=== PATIENT | female | born 1950 | race Caucasian/White ===

== ENCOUNTER 2019-12-08 12:20 | Outpatient (REF) | payer MEDICARE, MEDICAID, SELFPAY ==
[2019-12-08 14:23] LABS: Anion Gap 13 (12-20); Blood Urea Nitrogen 14 mg/dL (9-16); Calcium 8.6 mg/dL (8.4-10.2); Carbon Dioxide 30 mmol/L (22-29); Chloride 98 mmol/L (96-108); Estimated Glomerular Filt Rate > 60; Glucose Fasting 100 mg/dL (60-99); Potassium 3.9 mmol/l (3.3-5.1); Sodium 137 mmol/L (135-145)
[2019-12-08 14:47] LABS: TSH reflex Free T4 1.32 mIU/mL (0.32-4.0)
== END 2019-12-08 12:21 | disposition home or self-care (01) ==
LOC: HO.HMGCLDS 12:20
PROVIDERS: PCP Nurse Practitioner Family; Visit Provider Internal Medicine Gastroenterology
DX: R10.33 Periumbilical pain (principal)
CPT/HCPCS: 80048; 84443

== ENCOUNTER 2019-12-13 06:24 | Outpatient (REF) | payer MEDICARE, MEDICAID, SELFPAY ==
--- NOTE | 2019-12-13 06:27 | CT_ITS ---
EXAMINATION: CT ABDOMEN AND PELVIS WITH CONTRAST CLINICAL INFORMATION: Very minimal pain. COMPARISON: Abdominal ultrasound dated 03/04/2019; CT abdomen and pelvis dated 06/17/2018. TECHNIQUE: Multidetector volumetric images were obtained from the superior aspect of the liver through the pubic symphysis following administration 85 mL of Omnipaque 350 intravenous contrast. Sagittal and coronal reformatted images were obtained on the technologist's workstation. Oral contrast: No This CT examination was performed using dose optimization techniques as appropriate, variously including the following: *Automated exposure control *Adjustment of mA and/or kV according to patient size (this includes techniques or standardized protocols for targeted exams where dose is matched to indication/reason for exam; i.e. extremities or head) *Use of iterative reconstruction technique DLP: 397 mGy-cm FINDINGS: LUNG BASES: At the central left base (5:33 and 6:53), there is scar/subsegmental atelectasis. A few noncalcified micronodules may be present at this location. LIVER, GALLBLADDER, AND BILIARY TREE: The liver is normal in size, shape, and mildly increased in attenuation. No focal hepatic lesion or biliary ductal dilatation is present. The gallbladder is surgically absent. PANCREAS: Again, there is fatty infiltration of the pancreatic head. No new mass, ductal dilatation or peripancreatic fat stranding or fluid are seen. SPLEEN: Unremarkable. ADRENAL GLANDS: Unremarkable. KIDNEYS AND URETERS: The kidneys are normal in size, shape, and attenuation. No hydronephrosis, hydroureter, or calculi seen. No perinephric stranding. BLADDER: Unremarkable. GASTROINTESTINAL TRACT: There is mild diverticulosis, without acute diverticulitis. No bowel obstruction, free intraperitoneal air or abscess is seen. The vermiform appendix is not identified. ABDOMINAL WALL: There has been a prior periumbilical herniorrhaphy. There are small fat-containing bilateral inguinal hernias. LYMPH NODES: Normal. VASCULAR: There is moderate aortoiliac atherosclerotic calcification. No abdominal aortic aneurysm is seen. PELVIC VISCERA: Surgically absent. No pelvic mass, free fluid or lymphadenopathy is seen. OSSEOUS STRUCTURES: There is multi-level thoracolumbar degenerative disc disease and spondylosis, particularly pronounced at T12-L1 and L5-S1. No acute or aggressive osseous abnormality is seen. CT/CT abdomen pelvis w con IMPRESSION: 1. There is mild diverticulosis, without acute diverticulitis. No bowel obstruction, free intraperitoneal air or abscess is seen. The appendix is again not identified. 2. No abdominopelvic mass, free fluid lymphadenopathy is seen. 3. No urinary calculus or obstructive uropathy is seen. 4. There is mild hepatic steatosis. 5. There is mild scar/subsegmental atelectasis at the left base. A few noncalcified micronodules may be present at this location. 6. There is multi-level thoracolumbar degenerative change.
[2019-12-13] MEDS: Barium Sulfate Oral (Berry) 450 ML ORAL.SUSP 900 ML PO (09:02)
[2019-12-13] MEDS: iohexoL 350 MG/ML 100 ML INFUS..BTL IV (09:02)
== END 2019-12-13 06:25 | disposition home or self-care (01) ==
LOC: HO.CT 06:24
PROVIDERS: Visit Provider Internal Medicine Gastroenterology
DX: R10.33 Periumbilical pain (principal)
CPT/HCPCS: 74177

== ENCOUNTER → 2019-12-27 13:20 | Outpatient (BNVA) | payer MEDICARE, MEDICAID, SELFPAY | PROVIDERS: PCP Nurse Practitioner Family; Visit Provider Surgery | DX: K40.90 Unilateral inguinal hernia, without obstruction or gangrene, not specified as recurrent (principal) | CPT/HCPCS: 99212 ==

== ENCOUNTER 2020-01-14 07:44 | Day surgery (SDC) | payer MEDICARE, MEDICAID, SELFPAY ==
[2020-01-10 15:00] VITALS: BMI 31.1
--- NOTE | 2020-01-13 09:27 | HO.ANESPROP2 ---
Documented by User: Kiana Brito 01/13/20 09:38 HPI - Anesthesia Eval Consult details Narrative: 69yo F for Hernia Repair Inguinal right, with mesh s/p lap diaphragmatic hernia with GA-ETT 7.5 Cardiology cleared 09/2019 for GA @ intermed [facility] Past Medical History Medical History (Updated 01/14/20 @ 08:28 by Karime Ceballos) Anxiety Asthma COPD (chronic obstructive pulmonary disease) Depression Dizziness Edema Fusion of spine, cervical region H/O gastroesophageal reflux (GERD) History of aneurysm History of deviated nasal septum History of panic attacks HLD (hyperlipidemia) HTN (hypertension) Medial epicondylitis of left elbow Migraine Nonobstructive atherosclerosis of coronary artery PTSD (post-traumatic stress disorder) Right inguinal hernia Umbilical pain Family History Family History Father Liver cancer Psoriasis Cancer Mother Cervical cancer Ovarian cancer Heart attack Surgical History Surgical History (Updated 01/14/20 @ 08:28 by Karime Ceballos) H/O decompression of ulnar nerve History of appendectomy History of cardiac catheterization History of cholecystectomy History of esophagogastroduodenoscopy (EGD) History of eyelid surgery History of hysterectomy History of lumpectomy of both breasts History of parathyroidectomy Hx of adenoidectomy Hx of cataract surgery Hx of colonoscopy Hx of eye surgery Hx of shoulder surgery Hx of tonsillectomy S/P arthroscopic surgery of right knee S/P cubital tunnel release S/P repair of paraesophageal hernia Status post ablation of incompetent vein using laser Social History Social History Smoking Status: Former smoker Smoking Quit Date: 1979 Use of substances other than those prescribed or required for medical reasons: No Advance Directives: No Advance Directives Information Provided: No Advance Directives on File: No Meds Allergies Allergy/AdvReac Type Severity Reaction Status Date / Time Xjfdgel-Dyv-Pfe Reductase Allergy Severe JOINT PAIN Unverified 01/10/20 14:31 Inhibitor [[id number] REDUCTASE INHIBITOR] amlodipine [AMLODIPINE] Allergy Intermediate PALIPITATIO Unverified 01/10/20 14:31 NS baclofen [BACLOFEN] Allergy Intermediate LETHARGY Unverified 01/10/20 14:31 Beta-Blockers Allergy Intermediate BRADYCARDIA Unverified 01/10/20 14:31 (Beta-Adrenergic Bloc budesonide [From SYMBICORT] Allergy Intermediate HOARSENESS Unverified 01/10/20 14:31 ezetimibe [From ZETIA] Allergy Intermediate JOINT Unverified 01/10/20 14:31 PAIN, ELEVATED CPK formoterol [From SYMBICORT] Allergy Intermediate HOARSENESS Unverified 01/10/20 14:31 ibandronate sodium Allergy Intermediate CHEST PAIN Unverified 01/10/20 14:31 [From BONIVA] latex [LATEX] Allergy Intermediate RASH-SENSIT Unverified 01/10/20 14:31 IVITY lisinopril [LISINOPRIL] Allergy Intermediate COUGH, Unverified 01/10/20 14:31 really bad cough, cough meloxicam [From MOBIC] Allergy Intermediate GI UPSET Unverified 01/10/20 14:31 mometasone furoate Allergy Intermediate COUGH Unverified 01/10/20 14:31 [From DULERA] Penicillins [PENICILLINS] Allergy Intermediate RASH Unverified 01/10/20 14:31 pregabalin [From LYRICA] Allergy Intermediate RASH,BLURRED Unverified 01/10/20 14:31 VISION raloxifene [From EVISTA] Allergy Intermediate GERD Unverified 01/10/20 14:31 sertraline [From ZOLOFT] Allergy Intermediate SKIN Unverified 01/10/20 14:31 CRAWLING spironolactone Allergy Intermediate RASH, ?? Unverified 01/10/20 14:31 [SPIRONOLACTONE] psoriasis strawberry [STRAWBERRY] Allergy Intermediate ITCHING Unverified 01/10/20 14:31 tiotropium Allergy Intermediate RAW THROAT Unverified 01/10/20 14:31 [From SPIRIVA WITH HANDIHALER] adhesive [ADHESIVE] Allergy Unknown RASH Unverified 01/10/20 14:31 adhesive tape [ADHESIVE TAPE] Allergy Unknown RASH Unverified 01/10/20 14:31 Atrovent Allergy Unknown Unknown Unverified 01/10/20 14:31 dexlansoprazole Allergy Unknown UNKNOWN Unverified 01/10/20 14:31 [From DEXILANT] doxycycline [DOXYCYCLINE] Allergy Unknown SEVERE NOYOLA, Unverified 01/10/20 14:31 HEARTBURN Doxycycline Hyclate Allergy Unknown headache Unverified 01/10/20 14:31 esomeprazole [Nexium] Allergy Unknown Unknown Verified 01/10/20 14:31 fluticasone Allergy Unknown HTN Unverified 01/10/20 14:31 [From ADVAIR DISKUS] gabapentin [From NEURONTIN] Allergy Unknown THROAT Unverified 01/10/20 14:31 TIGHTNESS glucosamine Allergy Unknown Unknown Unverified 01/10/20 14:31 metoclopramide [From REGLAN] Allergy Unknown LETHARGY Unverified 01/10/20 14:31 monosodium glutamate [MSG] Allergy Unknown HEADACHE Unverified 01/10/20 14:31 naproxen [From ALEVE] Allergy Unknown FLUSH Unverified 01/10/20 14:31 niacin Allergy Unknown Unknown Verified 01/10/20 14:31 omeprazole Allergy Unknown Unknown Unverified 01/10/20 14:31 risedronate sodium Allergy Unknown UNKNOWN Unverified 01/10/20 14:31 [From ACTONEL] rosuvastatin [From CRESTOR] Allergy Unknown VOMITED, Unverified 01/10/20 14:31 DIARRHEA salmeterol Allergy Unknown HTN Unverified 01/10/20 14:31 [From ADVAIR DISKUS] scallops [SCALLOPS] Allergy Unknown NAUSEA & Unverified 01/10/20 14:31 VOMITING tramadol [TRAMADOL] Allergy Unknown THROAT Unverified 01/10/20 14:31 TIGHTNESS verapamil [VERAPAMIL] Allergy Unknown IRREGULAR Unverified 01/10/20 14:31 HEARTBEAT CHOCOLATE Allergy Intermediate ITCHING Uncoded 01/10/20 14:31 Vioxx Allergy Unknown ankle Uncoded 01/10/20 14:31 swelling Home Medications Medication Instructions Recorded Confirmed Type Bifidobacterium infantis 4 mg 4 mg PO DAILY 11/17/19 01/10/20 History capsule aspirin 81 mg tablet,delayed 81 mg PO DAILY 11/17/19 01/14/20 History release azelastine 137 mcg (0.1 %) nasal 1 spray INTRANASAL DAILY 11/17/19 01/10/20 History spray aerosol betamethasone dipropionate 0.05 % 1 applic TOPICAL DIRECTED 11/17/19 01/10/20 History topical cream cetirizine 10 mg tablet 5 mg PO DAILY PRN 11/17/19 01/10/20 History cholecalciferol (vitamin D3) 25 25 mcg PO DAILY 11/17/19 01/10/20 History mcg (1,000 unit) capsule cyclosporine 0.05 % eye drops in a 1 drp OPHTHALMIC (EYE) DIRECTED 11/17/19 01/10/20 History dropperette cyclosporine 0.05 % eye drops in a 1 drp OPHTHALMIC (EYE) Q12H 11/17/19 01/10/20 History dropperette docusate sodium 100 mg capsule 100 mg PO BID 11/17/19 01/10/20 History evolocumab 140 mg/mL subcutaneous 140 mg SUBCUT DIRECTED 11/17/19 01/10/20 History pen injector famotidine-Ca carb-mag hydrox 10 1 tab PO BID 11/17/19 01/10/20 History mg-800 mg-165 mg chewable tablet ibuprofen 600 mg tablet 600 mg PO TID tab 11/17/19 01/14/20 History levalbuterol tartrate 45 2 puff INHALATION DAILY 11/17/19 12/08/19 History mcg/actuation aerosol inhaler lorazepam 0.5 mg tablet 0.5 mg PO BEDTIME tab 11/17/19 01/14/20 History losartan 25 mg tablet 25 mg PO DAILY tab 11/17/19 01/10/20 History magnesium oxide 500 mg tablet 500 mg PO DAILY 11/17/19 01/10/20 History pantoprazole 40 mg tablet,delayed 40 mg PO BID tab 11/17/19 01/14/20 History release sucralfate 1 gram tablet PO 11/17/19 12/08/19 History Exam Exam Date and Time: January 13, 2020 0927 Height,Weight and Vital Signs: Height 5 ft Weight 72.18 kg Pertinent Lab Results Pertinent Lab Results: Laboratory Tests 10/28/19 12/08/19 06:18 12:32 WBC 6.8 Hgb 14.0 Hct 42.1 Plt Count 306 Sodium 137 Potassium 3.9 Chloride 98 Carbon Dioxide 30 H BUN 14 Creatinine 0.83 Narrative Narrative: EKG 09/15/19: NSR@60 CXR 09/15/19: Neg ECHO 2016: EF 65-70%, No RWMA, Imp relax MIBI 2015: nml perfusion Assessment and Plan Assessment Anesthesia Assessment: Chart Reviewed Documented by User: Karime Ceballos 01/14/20 08:30 [facility] Past Medical History Medical History (Updated 01/14/20 @ 08:28 by Karime Ceballos) Anxiety Asthma COPD (chronic obstructive pulmonary disease) Depression Dizziness Edema Fusion of spine, cervical region H/O gastroesophageal reflux (GERD) History of aneurysm History of deviated nasal septum History of panic attacks HLD (hyperlipidemia) HTN (hypertension) Medial epicondylitis of left elbow Migraine Nonobstructive atherosclerosis of coronary artery PTSD (post-traumatic stress disorder) Right inguinal hernia Umbilical pain Family History Family History Father Liver cancer Psoriasis Cancer Mother Cervical cancer Ovarian cancer Heart attack Family history of problems with anesthesia: No Surgical History Surgical History (Updated 01/14/20 @ 08:28 by Karime Ceballos) H/O decompression of ulnar nerve History of appendectomy History of cardiac catheterization History of cholecystectomy History of esophagogastroduodenoscopy (EGD) History of eyelid surgery History of hysterectomy History of lumpectomy of both breasts History of parathyroidectomy Hx of adenoidectomy Hx of cataract surgery Hx of colonoscopy Hx of eye surgery Hx of shoulder surgery Hx of tonsillectomy S/P arthroscopic surgery of right knee S/P cubital tunnel release S/P repair of paraesophageal hernia Status post ablation of incompetent vein using laser History of Problems with Anesthesia: No Social History Social History Smoking Status: Former smoker Smoking Quit Date: 1979 Use of substances other than those prescribed or required for medical reasons: No Advance Directives: No Advance Directives Information Provided: No Advance Directives on File: No Meds Allergies Allergy/AdvReac Type Severity Reaction Status Date / Time Uvifwrw-Fzp-Vnr Reductase Allergy Severe JOINT PAIN Unverified 01/10/20 14:31 Inhibitor [BQDOVEV-OCI-LHQ REDUCTASE INHIBITOR] amlodipine [AMLODIPINE] Allergy Intermediate PALIPITATIO Unverified 01/10/20 14:31 NS baclofen [BACLOFEN] Allergy Intermediate LETHARGY Unverified 01/10/20 14:31 Beta-Blockers Allergy Intermediate BRADYCARDIA Unverified 01/10/20 14:31 (Beta-Adrenergic Bloc budesonide [From SYMBICORT] Allergy Intermediate HOARSENESS Unverified 01/10/20 14:31 ezetimibe [From ZETIA] Allergy Intermediate JOINT Unverified 01/10/20 14:31 PAIN, ELEVATED CPK formoterol [From SYMBICORT] Allergy Intermediate HOARSENESS Unverified 01/10/20 14:31 ibandronate sodium Allergy Intermediate CHEST PAIN Unverified 01/10/20 14:31 [From BONIVA] latex [LATEX] Allergy Intermediate RASH-SENSIT Unverified 01/10/20 14:31 IVITY lisinopril [LISINOPRIL] Allergy Intermediate COUGH, Unverified 01/10/20 14:31 really bad cough, cough meloxicam [From MOBIC] Allergy Intermediate GI UPSET Unverified 01/10/20 14:31 mometasone furoate Allergy Intermediate COUGH Unverified 01/10/20 14:31 [From DULERA] Penicillins [PENICILLINS] Allergy Intermediate RASH Unverified 01/10/20 14:31 pregabalin [From LYRICA] Allergy Intermediate RASH,BLURRED Unverified 01/10/20 14:31 VISION raloxifene [From EVISTA] Allergy Intermediate GERD Unverified 01/10/20 14:31 sertraline [From ZOLOFT] Allergy Intermediate SKIN Unverified 01/10/20 14:31 CRAWLING spironolactone Allergy Intermediate RASH, ?? Unverified 01/10/20 14:31 [SPIRONOLACTONE] psoriasis strawberry [STRAWBERRY] Allergy Intermediate ITCHING Unverified 01/10/20 14:31 tiotropium Allergy Intermediate RAW THROAT Unverified 01/10/20 14:31 [From SPIRIVA WITH HANDIHALER] adhesive [ADHESIVE] Allergy Unknown RASH Unverified 01/10/20 14:31 adhesive tape [ADHESIVE TAPE] Allergy Unknown RASH Unverified 01/10/20 14:31 Atrovent Allergy Unknown Unknown Unverified 01/10/20 14:31 dexlansoprazole Allergy Unknown UNKNOWN Unverified 01/10/20 14:31 [From DEXILANT] doxycycline [DOXYCYCLINE] Allergy Unknown SEVERE NOYOLA, Unverified 01/10/20 14:31 HEARTBURN Doxycycline Hyclate Allergy Unknown headache Unverified 01/10/20 14:31 esomeprazole [Nexium] Allergy Unknown Unknown Verified 01/10/20 14:31 fluticasone Allergy Unknown HTN Unverified 01/10/20 14:31 [From ADVAIR DISKUS] gabapentin [From NEURONTIN] Allergy Unknown THROAT Unverified 01/10/20 14:31 TIGHTNESS glucosamine Allergy Unknown Unknown Unverified 01/10/20 14:31 metoclopramide [From REGLAN] Allergy Unknown LETHARGY Unverified 01/10/20 14:31 monosodium glutamate [MSG] Allergy Unknown HEADACHE Unverified 01/10/20 14:31 naproxen [From ALEVE] Allergy Unknown FLUSH Unverified 01/10/20 14:31 niacin Allergy Unknown Unknown Verified 01/10/20 14:31 omeprazole Allergy Unknown Unknown Unverified 01/10/20 14:31 risedronate sodium Allergy Unknown UNKNOWN Unverified 01/10/20 14:31 [From ACTONEL] rosuvastatin [From CRESTOR] Allergy Unknown VOMITED, Unverified 01/10/20 14:31 DIARRHEA salmeterol Allergy Unknown HTN Unverified 01/10/20 14:31 [From ADVAIR DISKUS] scallops [SCALLOPS] Allergy Unknown NAUSEA & Unverified 01/10/20 14:31 VOMITING tramadol [TRAMADOL] Allergy Unknown THROAT Unverified 01/10/20 14:31 TIGHTNESS verapamil [VERAPAMIL] Allergy Unknown IRREGULAR Unverified 01/10/20 14:31 HEARTBEAT CHOCOLATE Allergy Intermediate ITCHING Uncoded 01/10/20 14:31 Vioxx Allergy Unknown ankle Uncoded 01/10/20 14:31 swelling Home Medications Medication Instructions Recorded Confirmed Type Bifidobacterium infantis 4 mg 4 mg PO DAILY 11/17/19 01/10/20 History capsule aspirin 81 mg tablet,delayed 81 mg PO DAILY 11/17/19 01/14/20 History release azelastine 137 mcg (0.1 %) nasal 1 spray INTRANASAL DAILY 11/17/19 01/10/20 History spray aerosol betamethasone dipropionate 0.05 % 1 applic TOPICAL DIRECTED 11/17/19 01/10/20 History topical cream cetirizine 10 mg tablet 5 mg PO DAILY PRN 11/17/19 01/10/20 History cholecalciferol (vitamin D3) 25 25 mcg PO DAILY 11/17/19 01/10/20 History mcg (1,000 unit) capsule cyclosporine 0.05 % eye drops in a 1 drp OPHTHALMIC (EYE) DIRECTED 11/17/19 01/10/20 History dropperette cyclosporine 0.05 % eye drops in a 1 drp OPHTHALMIC (EYE) Q12H 11/17/19 01/10/20 History dropperette docusate sodium 100 mg capsule 100 mg PO BID 11/17/19 01/10/20 History evolocumab 140 mg/mL subcutaneous 140 mg SUBCUT DIRECTED 11/17/19 01/10/20 History pen injector famotidine-Ca carb-mag hydrox 10 1 tab PO BID 11/17/19 01/10/20 History mg-800 mg-165 mg chewable tablet ibuprofen 600 mg tablet 600 mg PO TID tab 11/17/19 01/14/20 History levalbuterol tartrate 45 2 puff INHALATION DAILY 11/17/19 12/08/19 History mcg/actuation aerosol inhaler lorazepam 0.5 mg tablet 0.5 mg PO BEDTIME tab 11/17/19 01/14/20 History losartan 25 mg tablet 25 mg PO DAILY tab 11/17/19 01/10/20 History magnesium oxide 500 mg tablet 500 mg PO DAILY 11/17/19 01/10/20 History pantoprazole 40 mg tablet,delayed 40 mg PO BID tab 11/17/19 01/14/20 History release sucralfate 1 gram tablet PO 11/17/19 12/08/19 History Exam Height,Weight and Vital Signs: Vital Signs Temp Pulse Resp BP Pulse Ox 01/14/20 08:20 98.2 F 86 20 152/73 H 100 Airway Mallampati Class: II TM Dist: >3cm Neck ROM: Full (S/p fusion with plate. Good extension.) Loose/Missing/Broken Teeth: No ([place] intact) Heart: RRR Lungs: CTAB Assessment and Plan Assessment Anesthesia Assessment: Anesthesia Plan Discussed and Chart Reviewed Final Anesthetic Review NPO: Yes ASA Class: III Final Preanesthetic Review: No Changes in Pt Med Stat, Meds/Allgs Chart Reviewed, Consent Obtained/Reviewed and Anes Risks/Benef Reviewed Patient Risk: Intermediate Procedure Risk: Low Anesthetic Plan Anesthetic Plan: GA Disposition: Standard PACU
[2020-01-14] VITALS (8 sets, daily range): BP systolic 116–152; BP diastolic 49–73; PULSE 66–86; RESP 14–20; TEMP 36.7–36.8; O2SAT 96–100
--- NOTE | 2020-01-14 08:14 | MHC.SHP ---
Pre-Procedural Eval Section B Chief Complaint: hernia without obstruction or gangrene Allergies: Allergies Allergy/AdvReac Type Severity Reaction Status Date / Time Hertmoe-Mhm-Ryz Reductase Allergy Severe JOINT PAIN Unverified 01/10/20 14:31 Inhibitor [YASLEFU-LSW-ILV REDUCTASE INHIBITOR] amlodipine [AMLODIPINE] Allergy Intermediate PALIPITATIO Unverified 01/10/20 14:31 NS baclofen [BACLOFEN] Allergy Intermediate LETHARGY Unverified 01/10/20 14:31 Beta-Blockers Allergy Intermediate BRADYCARDIA Unverified 01/10/20 14:31 (Beta-Adrenergic Bloc budesonide [From SYMBICORT] Allergy Intermediate HOARSENESS Unverified 01/10/20 14:31 ezetimibe [From ZETIA] Allergy Intermediate JOINT Unverified 01/10/20 14:31 PAIN, ELEVATED CPK formoterol [From SYMBICORT] Allergy Intermediate HOARSENESS Unverified 01/10/20 14:31 ibandronate sodium Allergy Intermediate CHEST PAIN Unverified 01/10/20 14:31 [From BONIVA] latex [LATEX] Allergy Intermediate RASH-SENSIT Unverified 01/10/20 14:31 IVITY lisinopril [LISINOPRIL] Allergy Intermediate COUGH, Unverified 01/10/20 14:31 really bad cough, cough meloxicam [From MOBIC] Allergy Intermediate GI UPSET Unverified 01/10/20 14:31 mometasone furoate Allergy Intermediate COUGH Unverified 01/10/20 14:31 [From DULERA] Penicillins [PENICILLINS] Allergy Intermediate RASH Unverified 01/10/20 14:31 pregabalin [From LYRICA] Allergy Intermediate RASH,BLURRED Unverified 01/10/20 14:31 VISION raloxifene [From EVISTA] Allergy Intermediate GERD Unverified 01/10/20 14:31 sertraline [From ZOLOFT] Allergy Intermediate SKIN Unverified 01/10/20 14:31 CRAWLING spironolactone Allergy Intermediate RASH, ?? Unverified 01/10/20 14:31 [SPIRONOLACTONE] psoriasis strawberry [STRAWBERRY] Allergy Intermediate ITCHING Unverified 01/10/20 14:31 tiotropium Allergy Intermediate RAW THROAT Unverified 01/10/20 14:31 [From SPIRIVA WITH HANDIHALER] adhesive [ADHESIVE] Allergy Unknown RASH Unverified 01/10/20 14:31 adhesive tape [ADHESIVE TAPE] Allergy Unknown RASH Unverified 01/10/20 14:31 Atrovent Allergy Unknown Unknown Unverified 01/10/20 14:31 dexlansoprazole Allergy Unknown UNKNOWN Unverified 01/10/20 14:31 [From DEXILANT] doxycycline [DOXYCYCLINE] Allergy Unknown SEVERE NOYOLA, Unverified 01/10/20 14:31 HEARTBURN Doxycycline Hyclate Allergy Unknown headache Unverified 01/10/20 14:31 esomeprazole [Nexium] Allergy Unknown Unknown Verified 01/10/20 14:31 fluticasone Allergy Unknown HTN Unverified 01/10/20 14:31 [From ADVAIR DISKUS] gabapentin [From NEURONTIN] Allergy Unknown THROAT Unverified 01/10/20 14:31 TIGHTNESS glucosamine Allergy Unknown Unknown Unverified 01/10/20 14:31 metoclopramide [From REGLAN] Allergy Unknown LETHARGY Unverified 01/10/20 14:31 monosodium glutamate [MSG] Allergy Unknown HEADACHE Unverified 01/10/20 14:31 naproxen [From ALEVE] Allergy Unknown FLUSH Unverified 01/10/20 14:31 niacin Allergy Unknown Unknown Verified 01/10/20 14:31 omeprazole Allergy Unknown Unknown Unverified 01/10/20 14:31 risedronate sodium Allergy Unknown UNKNOWN Unverified 01/10/20 14:31 [From ACTONEL] rosuvastatin [From CRESTOR] Allergy Unknown VOMITED, Unverified 01/10/20 14:31 DIARRHEA salmeterol Allergy Unknown HTN Unverified 01/10/20 14:31 [From ADVAIR DISKUS] scallops [SCALLOPS] Allergy Unknown NAUSEA & Unverified 01/10/20 14:31 VOMITING tramadol [TRAMADOL] Allergy Unknown THROAT Unverified 01/10/20 14:31 TIGHTNESS verapamil [VERAPAMIL] Allergy Unknown IRREGULAR Unverified 01/10/20 14:31 HEARTBEAT CHOCOLATE Allergy Intermediate ITCHING Uncoded 01/10/20 14:31 Vioxx Allergy Unknown ankle Uncoded 01/10/20 14:31 swelling Plan Patient has been examined and remains a candidate for the planned procedure
[2020-01-14] MEDS: Lactated Ringers 1,000 ML 100 ML IVCONT (08:24)
[2020-01-14] MEDS: ceFAZolin Sodium/Dextrose,Iso 2 GM/50 ML PIGGYBACK IV (08:28)
--- NOTE | 2020-01-14 09:17 | P.BOP_ITS ---
Brief Operative Note Date of Service: 01/14/20 Pre-op diagnosis: RIH Post-op diagnosis: same Procedure: repair of RIH w/ mesh Implants: mesh Surgeon: Tan Carson MD Anesthesia: GLMA Band Cutting Machine Operator: Elissa Givens Estimated blood loss (mL): 2 Pathology: none sent Condition: stable Disposition: PACU
--- NOTE | 2020-01-14 09:51 | OP_ITS ---
SURGEON: Tan Carson MD INDICATIONS: The patient is a 69-year-old female with pain on the right groin with a CAT scan showing an inguinal hernia containing fat. In view of symptoms, she wanted to proceed with repair. She understood technique of repair with mesh. She was aware of the risks, benefits, and alternatives. PREOPERATIVE DIAGNOSIS: Right inguinal hernia. POSTOPERATIVE DIAGNOSIS: Right inguinal hernia, indirect. PROCEDURE PERFORMED: ESTIMATED BLOOD LOSS: COMPLICATIONS: ANESTHESIA: ASSISTANTS: SPECIMENS: PROCEDURE DONE: Repair of right inguinal hernia with Prolene mesh. HUSKER OPERATOR: Elissa Givens PA-C. DESCRIPTION OF PROCEDURE: She was brought to the operating room, placed supine on table under general anesthesia via laryngeal mask airway. The right groin was prepped and draped in usual sterile fashion. A surgical time-out was done. The patient received cefazolin 2 g IV preoperatively. I marked the planned line of incision along an imaginary line from the anterior superior iliac spine to the pubic ramus. I made short incision using blade #15 and this was carried down to full-thickness skin and subcutaneous fat down to the fascia. The fascia was gently dissected and bluntly to define the external ring. We then proceeded to make incision on the external oblique aponeurosis. This was extended inferomedially to connect with the external ring. The inguinal canal was therefore entered. Grasper placed on the edges of the external oblique aponeurosis. We bluntly dissected the underside of the aponeurosis using an index finger to create space for the mesh. I then proceeded to gently dissect the round ligament and we were able to see the small hernia which contained fat. We proceeded to define the round ligament and the combining vessels. Clamps were applied on this and the round ligament and its vessels were divided between clamps. The two ends were then ligated with Dexon 3-0 ties. Proceeded to then carefully define the hernia sac. We dissected the sac down to the internal ring. This was easily reduced. We proceeded to reinforce the floor of the canal with flat mesh. The mesh was trimmed to fit into the floor of the canal. The mesh was then secured with Prolene 2-0 suture to the shelving edge of the lateral inguinal ligament and the internal oblique superiorly and medially as well as the pubic ramus inferomedially. We irrigated. Once hemostasis was ensured, we proceeded to close the external oblique aponeurosis in a running Dexon 2-0 stitch. The subcutaneous layer was reapposed with Dexon 3-0 sutures. Skin closure achieved with Dexon 4-0 subcuticular running sutures. Steri-Strips and dressings were applied. The incision was infiltrated with Marcaine 0.5% for postop analgesia. The procedure was completed. The patient tolerated the procedure well with no complications noted. Initial and final counts of sponges and instruments were correct. Estimated blood loss was minimal. The patient extubated without difficulty and transferred to recovery room with stable vital signs. MD WILFREDO Salinas/GIOVANA / [id number] MTDD
--- NOTE | 2020-01-14 09:56 | HO.POSTANES ---
Post Anesthesia Evaluation Post Anesthesia Evaluation Vital Signs: Vital Signs Temp Pulse Resp BP Pulse Ox 01/14/20 09:25 83 16 124/66 96 01/14/20 09:20 98.1 F 86 14 131/67 96 01/14/20 08:20 98.2 F 86 20 152/73 H 100 Anesthesia: General Mental Status: Awake Pain Control: Satisfactory Nausea/Vomiting: None Hydration: Adequate Anesthesia-Related Issues: No Anes. Related Issues
[2020-01-14] MEDS: Acetaminophen 325 MG TABLET 650 MG PO (10:01)
[2020-01-14] MEDS: oxyCODONE HCl Immed Release 5 MG TABLET PO (10:02)
== END 2020-01-14 11:24 | disposition home or self-care (01) ==
PROVIDERS: PCP Nurse Practitioner Family; Visit Provider Surgery
PROC: (CPT 49505; principal; 2020-01-14 09:30)
DX: K40.90 Unilateral inguinal hernia, without obstruction or gangrene, not specified as recurrent (principal); Z88.0 Allergy status to penicillin; Z88.8 Allergy status to other drugs, medicaments and biological substances
CPT/HCPCS: 49505; C1781; J0690; J1100; J2250; J2405; J3010

== ENCOUNTER → 2020-01-26 09:12 | Outpatient (BNVA) | payer MEDICARE, MEDICAID, SELFPAY | PROVIDERS: PCP Nurse Practitioner Family; Visit Provider Surgery | DX: K40.90 Unilateral inguinal hernia, without obstruction or gangrene, not specified as recurrent (principal) | CPT/HCPCS: 99212 ==

== ENCOUNTER 2020-02-18 07:22 | Outpatient (REF) | payer MEDICARE, MEDICAID, SELFPAY ==
--- NOTE | 2020-02-18 07:27 | MM_ITS ---
EXAMINATION: BONE DENSITOMETRY CLINICAL INDICATION: Osteoporosis. COMPARISON: None (current study represents initial baseline exam). TECHNIQUE: Using a [employer] DXA System (software version: 13.1) manufactured by [employer], dual-energy x-ray absorptiometry was performed of the lumbar spine and left hip. The images are of good technical quality. Summary results are attached. FINDINGS: AP SPINE L1-L2 (excluding L3 and L4): The data of L1-L4 has been changed to exclude the L3 and L4 vertebral bodies, because degenerative changes at these levels may cause overestimation of lumbar spine density. BMD 0.798 g/cm2, Z-score -1.6, T-score -3.1, osteoporosis. LEFT FEMUR, NECK: BMD 0.534 g/cm2, Z-score -2.1, T-score -3.6, osteoporosis. LEFT FEMUR, TOTAL: BMD 0.626 g/cm2, Z-score -1.7, T-score -3.0, osteoporosis. IDENTIFIED RISK FACTORS: Osteoporosis, height loss, low calcium intake, hyperparathyroidism. Early menopause, secondary osteoporosis, thiazide, hysterectomy, bilateral oophorectomy, history of fracture (adult). HISTORY OF FRACTURE: Elbow. MEDICATIONS: Calcium supplements or multivitamin, vitamin D. MM/XR DEXA axial skeleton IMPRESSION: 1. DIAGNOSIS: Osteoporosis based on the lowest T-score value of -3.6 in the femoral neck applying World Health Organization criteria. 2. 10-YEAR FRACTURE RISK PREDICTION, FRAX: Major osteoporotic fracture (clinical spine, forearm, hip or shoulder) 36.7%. Hip fracture 16.3%. 3. Treatment Recommendations: NOF guidelines recommend consideration for treatment in postmenopausal women and men age 50 and older presenting with the following: -A hip or vertebral (clinical or morphometric) fracture. -T-score less than or equal to -2.5 at the femoral neck or spine after appropriate evaluation to exclude secondary causes. -Low bone mass at the hip or spine and a 10-year fracture probability by FRAX of greater than or equal to 3% for hip fracture or greater than or equal to 20% for major osteoporotic fracture based on the [place] adapted WHO algorithm. 4. Other Recommendations: All treatment decisions require clinical judgment and consideration of individual patient factors, including patient preferences, comorbidities, previous drug use, risk factors not captured in the FRAX model (e.g. frailty, falls, vitamin D deficiency, increased bone turnover, interval significant decline in bone density) and possible under or overestimation of fracture risk by FRAX. Additional medical evaluation for secondary cause of low bone mineral density may be appropriate. FUTURE SCAN RECOMMENDATION: People with diagnosed cases of osteoporosis or at high risk for fracture should have regular bone mineral density tests. For patients eligible for Medicare, routine testing is allowed once every 2 years. The testing frequency can be increased to one year for patients who have rapidly progressing disease, those who are receiving or discontinuing medical therapy to restore bone mass, or have additional risk factors.
--- NOTE | 2020-02-18 07:27 | MM_ITS ---
EXAMINATION: MM SCREENING DIGITAL BREAST TOMOSYNTHESIS, BILATERAL CLINICAL INFORMATION: Screening. Asymptomatic. The lifetime risk of breast cancer based on the Tyrer-Cuzick Model is 2%. COMPARISON: Mammography: 02/04/2019, outside exams 02/02/2018, 01/30/2017 ([facility]). TECHNIQUE: Digital breast tomosynthesis is performed in both the craniocaudal and mediolateral oblique views along with computer-aided detection (CAD). Synthesized 2D images are generated from the tomosynthesis. Additional right exaggerated CC view is provided. FINDINGS: There are scattered areas of fibroglandular density (ACR BI-RADS breast composition Category b). There are no significant masses, abnormal calcifications, or other abnormalities. Parenchymal pattern is similar to prior studies. No developing density. No significant changes. MM/MM tomosynthesis screening BI IMPRESSION: No mammographic evidence of malignancy. ASSESSMENT: BI-RADS 1: Negative RECOMMENDATION: Routine annual mammography screening. This patient's information was entered into a reminder system with a target due date for their next mammogram.
== END 2020-02-18 07:23 | disposition home or self-care (01) ==
LOC: HO.MAMMO 07:22
PROVIDERS: PCP Nurse Practitioner Family; Visit Provider Nurse Practitioner Family
DX: M81.0 Age-related osteoporosis without current pathological fracture (principal); Z78.0 Asymptomatic menopausal state; E21.3 Hyperparathyroidism, unspecified; Z79.899 Other long term (current) drug therapy; Z90.710 Acquired absence of both cervix and uterus; Z90.722 Acquired absence of ovaries, bilateral; Z12.31 Encounter for screening mammogram for malignant neoplasm of breast
CPT/HCPCS: 77063; 77067; 77080

== ENCOUNTER → 2020-02-25 07:51 | Outpatient (BNVA) | payer MEDICARE, MEDICAID, SELFPAY | PROVIDERS: PCP Nurse Practitioner Family; Visit Provider Internal Medicine Endocrinology, Diabetes & Metabolism | DX: Z13.89 Encounter for screening for other disorder (principal) | CPT/HCPCS: Q3014 ==

== ENCOUNTER 2020-02-28 06:04 | Outpatient (REF) | payer MEDICARE, MEDICAID, SELFPAY ==
[2020-02-28 11:31] LABS: Alanine Aminotransferase 9 U/L (0-31); Albumin Level 3.9 g/dL (3.5-5.0); Alkaline Phosphatase 108 U/L (39-117); Anion Gap 12 (12-20); Aspartate Amino Transferase 15 U/L (5-31); Bilirubin Total 0.5 mg/dL (0.0-1.0); Blood Urea Nitrogen 15 mg/dL (9-16); Calcium 8.5 mg/dL (8.4-10.2); Carbon Dioxide 32 mmol/L (22-29); Chloride 101 mmol/L (96-108); Estimated Glomerular Filt Rate > 60; Glucose Fasting 86 mg/dL (60-99); Sodium 141 mmol/L (135-145); Total Protein 6.6 g/dL (6.5-8.0)
[2020-02-28 11:54] LABS: Thyroid Stimulating Hormone 2.22 uIU/mL (0.32-4.0)
[2020-02-28 11:58] LABS: Free T4 (Free Thyroxine) 1.03 ng/dL (0.71-1.85); Vitamin D 25-OH Total 48.5 ng/mL (>30)
[2020-03-01 10:42] LABS: Calcium (PTHI) 8.9 mg/dL (8.6-10.4); PTHI 32 pg/mL (14-64)
[2020-03-03 14:12] LABS: N-Telopeptide 27 (see note); NTXCreaRU 212 mg/dL (20-275)
== END 2020-02-28 06:05 | disposition home or self-care (01) ==
LOC: HO.HMGCLDS 06:04
PROVIDERS: Internal Medicine Gastroenterology; PCP Nurse Practitioner Family; Visit Provider Internal Medicine Endocrinology, Diabetes & Metabolism
DX: M81.8 Other osteoporosis without current pathological fracture (principal)
CPT/HCPCS: 36415; 80053; 82306; 82523; 83970; 84439; 84443

== ENCOUNTER 2020-03-03 07:24 | Outpatient (REF) | payer MEDICARE, MEDICAID, SELFPAY ==
--- NOTE | 2020-03-03 07:28 | CT_ITS ---
EXAMINATION: CT CHEST WITHOUT CONTRAST CLINICAL INFORMATION: Other nonspecific abnormal finding of lung garay. COMPARISON: Previous chest CT 01/2015 and chest x-ray 09/15/2019. TECHNIQUE: Multidetector volumetric CT imaging of the chest was done. Axial MIP volume rendering provided. Sagittal and coronal reformatted images were obtained. This CT examination was performed using dose optimization techniques as appropriate, variously including the following: Automated exposure control. Adjustment of mA and/or kV according to patient size (this includes techniques or standardized protocols for targeted exams where dose is matched to indication/reason for exam; i.e. extremities or head). Use of iterative reconstruction technique. DLP: 130 mGy-cm FINDINGS: LUNGS: There are small calcified and noncalcified pulmonary nodules that are stable. Largest on noncalcified pulmonary nodule is a 5 mm ground-glass attenuation right lower lobe nodule axial image 234 series 6. Largest calcified pulmonary nodule measures 3 mm in the right upper lobe axial image 73 and 3 mm in the right middle lobe axial image 167 series 6. There are new small clustered peribronchial nodules and some bronchial wall thickening seen in the anterior basal segment of the left lower lobe for example axial image 249 series 6. This has tree-in-bud appearance. An infectious or inflammatory process is favored. MEDIASTINUM: The visualized thyroid gland is unremarkable. There are surgical clips in the lower neck/upper mediastinum inferior to the thyroid gland. There are small mediastinal lymph nodes. No enlarged lymph nodes are seen. Aortic valve and coronary artery calcification. There is no pericardial effusion. The thoracic aorta is normal in caliber. PLEURA: There is no pleural effusion. No pleural mass or thickening. AXILLA: No lymphadenopathy. UPPER ABDOMEN: Unremarkable. OSSEOUS STRUCTURES: There are degenerative changes of the thoracic spine. There are postsurgical changes to the lower cervical spine. CT/CT chest wo con IMPRESSION: New clustered small peribronchial nodules and bronchial wall thickening or tree-in-bud appearance in the anterior basal segment of the left lower lobe. An infectious or inflammatory process is favored. Otherwise, the small calcified and noncalcified pulmonary nodules seen on 2015 exam are stable.
== END 2020-03-03 07:25 | disposition home or self-care (01) ==
LOC: HO.CT 07:24
PROVIDERS: Visit Provider Hospitalist
DX: R91.8 Other nonspecific abnormal finding of lung field (principal)
CPT/HCPCS: 71250

== ENCOUNTER → 2020-03-31 08:22 | Outpatient (BNVA) | payer MEDICARE, MEDICAID, SELFPAY | PROVIDERS: PCP Nurse Practitioner Family; Visit Provider Internal Medicine Cardiovascular Disease | DX: R07.89 Other chest pain (principal); R06.00 Dyspnea, unspecified; E78.5 Hyperlipidemia, unspecified; I25.10 Atherosclerotic heart disease of native coronary artery without angina pectoris | CPT/HCPCS: 99212 ==

== ENCOUNTER → 2020-04-14 08:30 | Outpatient (BNVA) | payer MEDICARE, MEDICAID, SELFPAY | PROVIDERS: PCP Nurse Practitioner Family; Visit Provider Internal Medicine Gastroenterology | DX: Z13.89 Encounter for screening for other disorder (principal) | CPT/HCPCS: Q3014 ==

== ENCOUNTER 2020-04-21 09:04 | Outpatient (REF) | payer MEDICARE, MEDICAID, SELFPAY ==
--- NOTE | ~2020-04-21 | FL_ITS ---
EXAMINATION: FL BARIUM SWALLOW CLINICAL INFORMATION: Partial history of ulcer disease and congestive tract. Patient reports reflux COMPARISON: CT scan of the abdomen and pelvis December 2019. Barium swallow September 2015 TECHNIQUE: Barium swallow examination is performed using fluoroscopic evaluation in addition to multiple fluoroscopic spot views. The patient is imaged both upright and prone and using both thick and thin sulfate along with effervescent granules. The patient was also imaged during swallowing of the barium tablet in the upright position. FLUOROSCOPY TIME: 1.4 minutes DAP: 7.446 Gycm2 IMAGES: 26 FINDINGS: Barium tablet passes normally into the stomach without delay while drinking water. The swallowing mechanism appears normal without aspiration or penetration. Esophageal motility appears normal. No mass ulceration or stricture. There is no hiatal hernia. There is no reflux. FL/FL barium swallow IMPRESSION: Normal barium swallow.
== END 2020-04-21 09:05 | disposition home or self-care (01) ==
LOC: HO.XRAY 09:04
PROVIDERS: Visit Provider Internal Medicine Gastroenterology
DX: K21.9 Gastro-esophageal reflux disease without esophagitis (principal); Z87.19 Personal history of other diseases of the digestive system
CPT/HCPCS: 74220

== ENCOUNTER → 2020-04-26 08:15 | Outpatient (BNVA) | payer MEDICARE, MEDICAID, SELFPAY | PROVIDERS: PCP Nurse Practitioner Family; Visit Provider Hospitalist | DX: R07.89 Other chest pain (principal); J41.0 Simple chronic bronchitis; R06.00 Dyspnea, unspecified; G47.33 Obstructive sleep apnea (adult) (pediatric); Z79.899 Other long term (current) drug therapy | CPT/HCPCS: 99212 ==

== ENCOUNTER 2020-05-09 07:18 | Outpatient (REF) | payer MEDICARE, MEDICAID, SELFPAY ==
--- NOTE | ~2020-05-09 | CT_ITS ---
EXAMINATION: CT CHEST WITHOUT CONTRAST CLINICAL INFORMATION: Nonspecific finding of lung field. Follow-up pulmonary nodules. COMPARISON: Previous chest CT most recent February 2020 TECHNIQUE: Multidetector volumetric CT imaging of the chest was done. Axial MIP volume rendering provided. Sagittal and coronal reformatted images were obtained. This CT examination was performed using dose optimization techniques as appropriate, variously including the following: *Automated exposure control *Adjustment of mA and/or kV according to patient size (this includes techniques or standardized protocols for targeted exams where dose is matched to indication/reason for exam; i.e. extremities or head) *Use of iterative reconstruction technique DLP: 126 mGy-cm FINDINGS: LUNGS: There are new clustered peribronchial nodules in the right upper lobe, largest measuring 3 mm axial image 53 series 7. The clustered peribronchial nodules in the left lower lobe adjacent to the diaphragm appear unchanged. Other areas of clustered peribronchial nodules for example in the right upper lobe axial image 102 series 7 and right lower lobe axial image 218 series 7 are unchanged. The previously identified 5 mm groundglass attenuation nodule in the right lower lobe axial image 193 series 7 that is stable. The small calcified nodules are stable. MEDIASTINUM: There are surgical clips inferior to the thyroid gland. There are small mediastinal lymph nodes that are stable. No enlarged lymph nodes are seen. The heart does not appear enlarged. There is mild coronary artery calcification. There is no pericardial effusion. The thoracic aorta is normal in caliber. PLEURA: There is no pleural effusion. No pleural mass or thickening. AXILLA: No lymphadenopathy. UPPER ABDOMEN: The gallbladder has been removed. OSSEOUS STRUCTURES: There are postsurgical changes to the lower cervical spine. There are degenerative changes of the thoracic spine. CT/CT chest wo con IMPRESSION: New clustered right upper lobe peribronchial nodules suggestive of airways disease/infectious or inflammatory process. Otherwise small pulmonary nodules are stable.
--- NOTE | 2020-05-09 08:05 | CA_ITS ---
Acquisition Time: 2020-05-09 09:44:46 Total Exercise Time: 00:02:00 Test Indications: Dyspnea Medications: SEE H Protocol: LEXISCAN Max HR: 131 BPM 87% of Pred: 149 BPM Max BP: 156/088 mmHG Max Work Load: 1.0 METS Pharmacological stress test using Lexiscan while sitting. Pt tolerated well, denies any anginal sx. EKG with PVC's and pt symptomatic, states she feels them. Non-diagnostic for ischemia. Nuclear images to follow. Normotensive response to test. Test reviewed with Dr. Guido Referred By: Maikle Yadav Overread By: Lisa Mortensen NP
--- NOTE | 2020-05-09 08:05 | CA_ITS ---
Transthoracic Echocardiogram Patient (Last, First, Middle): Adali Holman I Gender: Female Date of : 1950 Age: 70 Procedure Date: 05/09/2020 Procedure Type: Transthoracic Echocardiogram Location: OP Height: 149.86 cm Weight: 71.67 kg BSA: 1.67 m2 Heart Rate: bpm BP: 128 / 76 mmHg Mechanical Drafter: JESSICA Referring MD: Maikel Yadav MD Symptoms: R06.00 - Dyspnea, unspecified Study Quality: Good ECG Rhythm: Sinus Conclusions: - The left ventricular systolic function is normal. The visually estimated ejection fraction is between 65-70%. - No obvious valvular pathology seen on this study. - (re-signed 05/31 due to technical issues) Findings Left Ventricle Normal left ventricular cavity size. There is normal left ventricular wall thickness. The left ventricular systolic function is normal. The visually estimated ejection fraction is between 65-70%. There is no evidence of regional wall motion abnormalities. Diastolic function is normal for age. Right Ventricle Normal right ventricular cavity size and systolic function. Atria Both atria are normal in size. Aortic Valve There is a normal trileaflet aortic valve. There is no aortic valve stenosis. There is no aortic valve regurgitation. Mitral Valve The mitral valve appears normal. There is no mitral valve regurgitation. There is no mitral valve stenosis. Pulmonic Valve The pulmonic valve was not well visualized. Tricuspid Valve Normal tricuspid valve structure. There is trace tricuspid valve regurgitation. The pulmonary artery systolic pressure is normal. Great Vessels The aortic annulus, sinuses of valsalva, asc aorta, and aortic arch are normal in size. Venous The inferior vena cava is normal in size and collapses greater than 50% with inspiration. Pericardium/Pleural There is no evidence of pericardial effusion. Prior Study Comparison No significant change compared to prior study dated: 11/27/2015. Recommendations, Care & Conclusions No obvious valvular pathology seen on this study. Measurements 2D Linear Measurements IVSd: 0.78 0.6-0.9/0.6-1.0 cm LVIDd: 4.25 3.9-5.3/4.2-5.9 cm LVIDs: 3.03 2.0-3.6 cm LVPWd: 0.81 0.7-1.1 cm LV Mass: 128.01 67-162/88-224 g LVOT Diam: 1.84 3.0+(-)1.3 cm 2D Systolic Function EF 4C: 68.00 >55% EF 2C: 70.00 >55% Mitral Valve MV Pk E: 0.94 MV PK A: 0.95 MV Decel Time: 199.81 E/A: 0.99 E'Lateral: 0.09 E'Medial: 0.07 Decel Heard: 4.72 Aortic Valve AoV Pk Irvin: 1.19 AoV Pk Grad: 5.65 LVOT LVOT Pk Irvin: 0.94 LVOT Mn Irvin: 0.62 LVOT VTI: 0.21 LVOT Pk Grad: 3.52 LVOT Mn Grad: 1.69 LVOT Diam: 1.84 LVOT Area: 2.67 Diastolic Function MV Pk E: 0.94 MV Pk A: 0.95 E/A: 0.99 E'Medial: 0.07 E' Laterial: 0.09 Tricuspid Valve TR Pk Irvin: 2.21 TR Pk Grad: 19.57 RA Press: 3.00 RVSP: 22.00 Great Vessels Aorta Ao Asc: 2.84 2.1-3.4 cm Ao Arch: 2.53 Updated in Other Vendor System with Status of Final Jason Guido MD electronically signed on 05/31/2020 3:56:44 PM with status of Final
== END 2020-05-09 07:19 | disposition home or self-care (01) ==
LOC: HO.CT 07:18
PROVIDERS: PCP Nurse Practitioner Family; Visit Provider Hospitalist
DX: R07.89 Other chest pain (principal); R91.8 Other nonspecific abnormal finding of lung field; I25.10 Atherosclerotic heart disease of native coronary artery without angina pectoris; R06.00 Dyspnea, unspecified
CPT/HCPCS: 71250; 93017; 93306; J0280; J2785

== ENCOUNTER → 2020-05-10 08:41 | Outpatient (REF) | payer MEDICARE, MEDICAID, SELFPAY ==
--- NOTE | ~2020-05-10 | NM_ITS ---
Lexiscan Myocardial perfusion study Indication: Chest pain, assess for coronary disease and ischemia Technique: The patient was brought in for a Lexiscan perfusion study on 05/09/2020 and was injected 0.4 mg of Lexiscan intravenously. Within a minute of this injection 25 mCi of sestamibi was given intravenously. Images were obtained using the SPECT gamma camera interlaced with the gating device. Images were obtained in supine position. Resting perfusion study was performed on 05/10/2020. Patient was administered 25 mCi of sestamibi intravenously at rest. Images were then obtained in supine position. Total DLP 67mGy-cm. Images were processed with the software and compared side to side in short axis, horizontal long axis and vertical long axis views. Findings: Raw acquisition was reviewed. The stress perfusion study showed slightly diminished tracer uptake in the distal part of lateral wall. This improves with CT attenuation correction most likely represent soft tissue attenuation. The gated study shows normal LV systolic function with calculated LVEF of 72%. LV cavity is normal in size. The gated study shows normal wall thickening and contraction of segments. Resting study shows no significant perfusion abnormality. Gating at rest reveals normal wall motion with ejection fraction at 59%. The findings are consistent with no reversible or fixed perfusion abnormality. NM/NM juan jose perf SPECT rest & str Impression: 1. Myocardial perfusion imaging study shows likely normal myocardial perfusion. No definitive evidence of any ischemia or infarction. 2. Gated LVEF is 72% during stress and 59% during rest. 3. Transient ischemic dilatation not present. EKG component of the test reported separately.
== END ==
LOC: HO.CARD 08:41
PROVIDERS: Visit Provider Internal Medicine Cardiovascular Disease
DX: R07.89 Other chest pain (principal); R06.00 Dyspnea, unspecified; I25.10 Atherosclerotic heart disease of native coronary artery without angina pectoris
CPT/HCPCS: 71250; 78452; 93017; 93306; A9500; J0280; J2785

== ENCOUNTER → 2020-05-12 08:30 | Outpatient (BNVA) | payer MEDICARE, MEDICAID, SELFPAY | PROVIDERS: PCP Nurse Practitioner Family; Visit Provider Internal Medicine Cardiovascular Disease | DX: R06.00 Dyspnea, unspecified (principal) | CPT/HCPCS: Q3014 ==

== ENCOUNTER → 2020-05-15 13:24 | Outpatient (BNVA) | payer MEDICARE, MEDICAID, SELFPAY | PROVIDERS: PCP Nurse Practitioner Family; Visit Provider Hospitalist | DX: Z13.89 Encounter for screening for other disorder (principal) | CPT/HCPCS: Q3014 ==

== ENCOUNTER → 2020-05-24 08:41 | Outpatient (REF) | payer MEDICARE, MEDICAID, SELFPAY ==
--- NOTE | 2020-05-24 | PFT_ITS ---
INDICATION: Dyspnea. SPIROMETRY: The FEV1 to FVC 87% with an FEV1 of 1.7 L, which is 95% predicted, and an FVC of 1.96 L, which is 82% predicted. There is a trend response to bronchodilators noted. The maximum voluntary ventilation 93% predicted. LUNG VOLUMES: Total lung capacity 82% predicted. DIFFUSION CAPACITY: DLCO 99% predicted. COMPARISONS: From 2019. INTERPRETATION: No obstructive nor restrictive ventilatory defects identified. No significant response to bronchodilators noted. There was indeed a trend. Normal maximum voluntary ventilation. Lung volumes are low normal and the patient has a normal diffusion capacity. When compared to 2019, no significant changes noted. Clinical correlation warranted. Harman Cleary MD MR/MODL / [id number]
== END ==
LOC: HO.SL 08:41
PROVIDERS: PCP Nurse Practitioner Family; Visit Provider Hospitalist
DX: G47.33 Obstructive sleep apnea (adult) (pediatric) (principal)
CPT/HCPCS: 95806

== ENCOUNTER → 2020-05-31 07:39 | Outpatient (BNVA) | payer MEDICARE, MEDICAID, SELFPAY | PROVIDERS: PCP Nurse Practitioner Family; Visit Provider Internal Medicine Endocrinology, Diabetes & Metabolism | DX: Z13.89 Encounter for screening for other disorder (principal) | CPT/HCPCS: 99212 ==

== ENCOUNTER 2020-05-31 09:15 | Outpatient (REF) | payer MEDICARE, MEDICAID, SELFPAY ==
[2020-05-31 11:16] LABS: Free T4 (Free Thyroxine) 0.94 ng/dL (0.71-1.85); Thyroid Stimulating Hormone 1.44 uIU/mL (0.32-4.0); Vitamin D 25-OH Total 48.7 ng/mL (>30)
[2020-06-02 13:46] LABS: Calcium (PTHI) 9.1 mg/dL (8.6-10.4); PTHI 35 pg/mL (14-64)
[2020-06-06 06:27] LABS: N-Telopeptide 26 (see note); NTXCreaRU 85 mg/dL (20-275)
== END 2020-05-31 09:16 | disposition home or self-care (01) ==
LOC: HO.10HDL 09:15
PROVIDERS: Visit Provider Internal Medicine Endocrinology, Diabetes & Metabolism
DX: M81.8 Other osteoporosis without current pathological fracture (principal)
CPT/HCPCS: 36415; 82306; 82523; 83970; 84439; 84443; 99212

== ENCOUNTER 2020-06-06 15:16 | Outpatient (REF) | payer MEDICARE, MEDICAID, SELFPAY ==
--- NOTE | ~2020-06-06 | US_ITS ---
EXAMINATION: US THYROID CLINICAL INFORMATION: Nontoxic multinodular goiter. COMPARISON: Ultrasound thyroid soft tissues neck 12/19/2017 and 12/19/2016. TECHNIQUE: Linear transducer grayscale and color Doppler examination with attention to the region of the thyroid. FINDINGS: SIZE: Measurements of the thyroid lobes and nodules are given in sagittal, anteroposterior and transverse dimensions respectively. Right Thyroid Lobe: 3.6 x 1.2 x 1.3 cm, volume 2.9 mL. Previously 3.3 x 1.2 x 1.6 cm, volume 3.1 mL. Parenchyma: The gland echotexture is homogeneous. Thyroid vascularity is normal. Left Thyroid Lobe: 3.3 x 1.1 x 1.5 cm, volume 2.8 mL. Previously 3.2 x 1.1 x 1.2 cm, volume 2.3 mL. Parenchyma: The gland echotexture is homogeneous. Thyroid vascularity is normal. Isthmus: 0.3 cm in maximum AP dimension. Previously 0.2 cm. Estimated total number of nodules greater than or equal to 1 cm: 1. [employer] nodules are described as follows: 1. Location: Upper right. Likely cyst. Size: 0.3 x 0.3 x 0.4 cm, volume 0.02 mL. Previously: 0.2 x 0.2 x 0.2 cm, volume 0.004 mL. Nodule characteristics: Composition: Cystic(0). Echogenicity: Anechoic (0). Shape: Taller than wider Margins: Smooth (0). Echogenic Foci: Macrocalcifications (1). ACR TI-RADS total points: 0. ACR TI-RADS category: 1. Significant change in size (>/= 20% in 2 dimensions and minimal increase of 2 mm or 50% or greater increase in volume): None. Change in features: None. Change in ACR TI-RADS risk category: Not available. 2. Location: Lower pole right medial. Size: 0.6 x 0.3 x 0.5 cm, volume 0.05 mL. Previously: 0.5 x 0.3 x 0.4 cm, volume 0.03 mL. Nodule characteristics: Composition: Mixed cystic and solid (1). Echogenicity: Hypoechoic (2). Shape: Not taller than wide (0). Margins: Smooth (0). Echogenic Foci: None (0). ACR TI-RADS total points: 3. ACR TI-RADS category: 3. Significant change in size (>/= 20% in 2 dimensions and minimal increase of 2 mm or 50% or greater increase in volume): None. Change in features: None. Change in ACR TI-RADS risk category: Not available. 3. Location: Left mid. Size: 0.6 x 0.4 x 0.4 cm, volume 0.05 mL. Previously: 0.4 x 0.3 x 0.3 cm, volume 0.02 mL. Nodule characteristics: Composition: Cystic(0). ACR TI-RADS total points: 0. ACR TI-RADS category: 1. Significant change in size (>/= 20% in 2 dimensions and minimal increase of 2 mm or 50% or greater increase in volume): 9. Change in features: None. Change in ACR TI-RADS risk category: Not available. 4. Location: Left med lower. Size: 1.1 x 0.6 x 0.7 cm, volume 0.24 mL. Previously: Not seen previously. Nodule characteristics: Composition: Solid (2). Echogenicity: Isoechoic (1). Shape: Not taller than wide (0). Margins: Smooth (0). Echogenic Foci: None (0). ACR TI-RADS total points: 3 ACR TI-RADS category: 3 NODES: No lymphadenopathy is seen in the tissue surrounding the thyroid gland. US/US thyroid IMPRESSION: Stable thyroid nodules with a new nodule left mid to lower pole, nonsuspicious. Recommend follow-up. ACR TI-RADS RECOMMENDATION REFERENCE: Ultrasound-guided fine-needle aspiration, followup ultrasound, no further follow up. * TR1 (0 point) and TR 2 (2 points): No FNA or follow up * TR3 (3 points): FNA if more than or equal to 2.5 cm in maximum dimension, followup ultrasound in 1, 3 and 5 years if 1.5 to 2.4 cm in maximum dimension. * TR4 (4-6 points): FNA if more than or equal to 1.5 cm in maximum dimension, followup ultrasound in 1, 2, 3 and 5 years if 1 to 1.4 cm in maximum dimension. * TR5 (more than or equal to 7 points): FNA if more than or equal to 1 cm in maximum dimension, followup ultrasound every year for 5 years if 0.5 to 0.9 cm in maximum dimension. * TR3, TR4 or TR5 nodules that are below the size threshold for follow up receive no follow up.
== END 2020-06-06 15:17 | disposition home or self-care (01) ==
LOC: HO.HMGCX 15:16
PROVIDERS: PCP Nurse Practitioner Family; Visit Provider Internal Medicine Endocrinology, Diabetes & Metabolism
DX: E04.2 Nontoxic multinodular goiter (principal)
CPT/HCPCS: 76536

== ENCOUNTER → 2020-06-09 08:22 | Outpatient (BNVA) | payer MEDICARE, MEDICAID, SELFPAY | PROVIDERS: PCP Nurse Practitioner Family; Visit Provider Internal Medicine Gastroenterology | DX: Z87.19 Personal history of other diseases of the digestive system (principal) | CPT/HCPCS: Q3014 ==

== ENCOUNTER 2020-06-16 12:47 | Outpatient (REF) | payer MEDICARE, MEDICAID, SELFPAY | END 2020-06-16 12:48 | disposition home or self-care (01) | LOC: HO.RESP 12:47 | PROVIDERS: PCP Nurse Practitioner Family; Visit Provider Hospitalist | DX: G47.33 Obstructive sleep apnea (adult) (pediatric) (principal); J44.9 Chronic obstructive pulmonary disease, unspecified; R06.00 Dyspnea, unspecified; Z88.8 Allergy status to other drugs, medicaments and biological substances; Z79.899 Other long term (current) drug therapy | CPT/HCPCS: 94060; 94727; 94729; 99212 ==

== ENCOUNTER → 2020-08-24 14:13 | Outpatient (BNVA) | payer MEDICARE, MEDICAID, SELFPAY | PROVIDERS: PCP Nurse Practitioner Family; Visit Provider Surgery Vascular Surgery | DX: I83.11 Varicose veins of right lower extremity with inflammation (principal) | CPT/HCPCS: 99202 ==

== ENCOUNTER 2020-09-20 07:42 | Outpatient (REF) | payer MEDICARE, MEDICAID, SELFPAY ==
--- NOTE | ~2020-09-20 | US_ITS ---
EXAMINATION: US RIGHT AND LEFT LOWER EXTREMITY VENOUS ULTRASOUND (REFLUX EXAM) CLINICAL INDICATION: Varicose veins of the right lower extremity with inflammation. Status post bilateral greater saphenous vein ablations. COMPARISON: None. TECHNIQUE: Color flow triplex imaging and compression Doppler was performed to evaluate both the deep and the superficial systems bilaterally. To evaluate the superficial system, the examination was performed in the upright position. Color-flow Doppler ultrasound and compression ultrasound were utilized. In addition, maneuvers were utilized to demonstrate reflux. FINDINGS: 1. DEEP VENOUS ULTRASOUND OF THE RIGHT LOWER EXTREMITY: Respiratory variation, normal compression and augmented flow are noted in the right common femoral vein as well as the right popliteal vein and there is no evidence of deep venous thrombosis at these locations. There is no evidence of reflux in the deep system in either the common femoral vein or the popliteal vein. There is no evidence of a Glover's cyst. 2. SUPERFICIAL ULTRASOUND WITH DOPPLER OF RIGHT LOWER EXTREMITY: The right great saphenous vein at the saphenofemoral junction measures 7 mm without reflux, at the midthigh 4 mm without reflux, not seen from above the knee to mid calf, at the ankle measures 3 mm without reflux. There is no reflux demonstrated in the right great saphenous vein. The right small saphenous vein is not seen. Varicose veins measuring 3 mm in diameter with reflux greater than 3 seconds are seen off the mid greater saphenous vein traveling laterally down to the calf. 3. DEEP VENOUS ULTRASOUND OF THE LEFT LOWER EXTREMITY: Respiratory variation, normal compression and augmented flow are noted in the left common femoral vein as well as the left popliteal vein and there is no evidence of deep venous thrombosis at these locations. There is no evidence of reflux in the deep system in either the common femoral vein or the popliteal vein. There is no evidence of a Glover's cyst. 4. SUPERFICIAL ULTRASOUND WITH DOPPLER OF LEFT LOWER EXTREMITY: Left great saphenous vein at the saphenofemoral junction measures 6 mm without reflux, at the midthigh 2 mm without reflux, [id number] not seen, [id number] 3 mm with venous insufficiency greater than 3 seconds, at midcalf 2 mm with venous insufficiency of 1.4 seconds, and at the ankle measures 2 mm without reflux. 3 mm varicosities within the proximal calf with reflux greater than 3 seconds within them. The left small saphenous vein measures 2 mm and shows no reflux. US/US venous duplex LE BI IMPRESSION: 1. No evidence of reflux or thrombus in the common femoral veins or popliteal veins bilaterally. 2. No venous insufficiency at the saphenofemoral junction. 3. Venous insufficiency below the knee and midcalf left lower extremity. 4. 3 mm varicosities within the proximal calf with reflux greater than 3 seconds within them. 5. Varicosities mid right greater saphenous vein measuring 3 mm in diameter with insufficiency time of greater than 3 seconds.
== END 2020-09-20 07:43 | disposition home or self-care (01) ==
LOC: HO.US 07:42
PROVIDERS: PCP Nurse Practitioner Family; Visit Provider Surgery Vascular Surgery
DX: I83.893 Varicose veins of bilateral lower extremities with other complications (principal); I83.11 Varicose veins of right lower extremity with inflammation
CPT/HCPCS: 93970

== ENCOUNTER → 2020-09-26 14:05 | Outpatient (BNVA) | payer MEDICARE, MEDICAID, SELFPAY | PROVIDERS: PCP Nurse Practitioner Family; Referring Provider Nurse Practitioner Family; Visit Provider Surgery Vascular Surgery | DX: I83.11 Varicose veins of right lower extremity with inflammation (principal) | CPT/HCPCS: 99212 ==

== ENCOUNTER 2020-10-24 06:27 | Outpatient (REF) | payer MEDICARE, MEDICAID, SELFPAY ==
[2020-10-24 11:25] LABS: MANUAL DIFF FLAG NO
[2020-10-24 11:33] LABS: Appearance Urine CLEAR; Color Urine STRAW; Glucose Urine UA NEG (NEG); Leukocyte Esterase Urine TRACE (NEG); Nitrite Urine NEG (NEG); Specific Gravity - Urine <= 1.005 (1.005-1.025); UACC Culture Trigger YES; Urine Blood NEG (NEG); Urine Ketones NEG (NEG); Urine Protein NEG (NEG-TRACE)
[2020-10-24 11:37] LABS: Basophils Absolute Auto 0.1 X10*3/uL (0.0-0.2); Basophils Percent Auto 1.3 % (0-2); Eosinophils Absolute Auto 0.2 X10*3/uL (0.0-0.4); Eosinophils Percent Auto 3.3 % (0-4); Hematocrit 43.5 % (37-47); Hemoglobin 14.1 g/dl (12.0-16.0); Imm Gran Abs Auto 0.02 X10*3/uL (0.00-0.03); Imm Gran Pct Auto 0.3 % (0.0-0.4); Lymphocytes Percent Auto 28.4 % (20-40); Mean Corpuscular HGB Conc 32.4 g/dl (31.0-35.0); Mean Corpuscular Hemoglobin 29.7 pg (27.0-33.0); Mean Corpuscular Volume 91.6 fL (80-98); Mean Platelet Volume 10.7 fL (9.4-12.3); Monocytes Absolute Auto 0.5 X10*3/uL (0.1-1.2); Monocytes Percent Auto 6.6 % (2-11); Neutrophils Absolute Auto 4.2 X10*3/uL (2.0-8.3); Neutrophils Percent Auto 60.1 % (45-73); Platelet Count 320 X10*3/uL (160-400); Red Blood Count 4.75 X10*6/uL (4.20-5.50); Red Cell Distribution Width 12.3 % (11.0-16.0)
[2020-10-24 11:45] LABS: RBC Urine 0 /HPF (0); WBC Urine 0-2 /HPF (0-4)
[2020-10-24 11:46] LABS: Squamous Epithelial Cell Urine TRACE /LPF
[2020-10-24 12:01] LABS: Alanine Aminotransferase 9 U/L (0-31); Alkaline Phosphatase 107 U/L (39-117); Anion Gap 11 (12-20); Aspartate Amino Transferase 16 U/L (5-31); Bilirubin Total 0.8 mg/dL (0.0-1.0); Blood Urea Nitrogen 10 mg/dL (9-16); Calcium 9.1 mg/dL (8.4-10.2); Carbon Dioxide 31 mmol/L (22-29); Chloride 105 mmol/L (96-108); Cholesterol 139 mg/dL; Estimated Glomerular Filt Rate > 60; Glucose Fasting 98 mg/dL (60-99); HDL Cholesterol 47 mg/dL; Iron 78 mcg/dL (30-160); LDL Cholesterol Calculated 71 mg/dl; Percent Iron Saturation 22 % (15-50); Sodium 142 mmol/L (135-145); Total Iron Binding Capacity 347 mcg/dL (228-428); Total Protein 6.5 g/dL (6.5-8.0); Triglycerides 105 mg/dL; Unsaturated Iron Binding 269 ug/dL
[2020-10-24 12:10] LABS: Ferritin 29 ng/mL (10-250); TSH reflex Free T4 1.65 uIU/mL (0.32-4.0)
== END 2020-10-24 06:28 | disposition home or self-care (01) ==
LOC: HO.HMGCLDS 06:27
PROVIDERS: PCP Nurse Practitioner Family; Visit Provider Nurse Practitioner Family
DX: K21.9 Gastro-esophageal reflux disease without esophagitis (principal); R35.0 Frequency of micturition; R53.83 Other fatigue
CPT/HCPCS: 36415; 80053; 80061; 81001; 82728; 83540; 84443; 85025; 87086

== ENCOUNTER → 2020-10-27 10:29 | Outpatient (BNVA) | payer MEDICARE, MEDICAID, SELFPAY | PROVIDERS: PCP Nurse Practitioner Family; Referring Provider Nurse Practitioner Family; Visit Provider Internal Medicine Gastroenterology | DX: K21.9 Gastro-esophageal reflux disease without esophagitis (principal) | CPT/HCPCS: 99212 ==

== ENCOUNTER 2020-11-16 07:56 | Day surgery (SDC) | payer MEDICARE, MEDICAID, SELFPAY ==
[2020-11-10 13:49] VITALS: BMI 32.7
--- NOTE | 2020-11-15 10:38 | HO.ANESPROP2 ---
Documented by User: Kiana Brito NP 11/15/20 10:43 HPI - Anesthesia Eval Consult details Narrative: 70yo F for Upper Endoscopy Multiple Allergies Stable with Cardiol and Pulmo visits 05/2020 PENDING SALE TO [facility] Active Problems Active Problems: All Active Problems (Updated 10/23/20 @ 07:23 by Sachin Linares, [facility]) Inguinal hernia (Acute) Rectal urgency (Acute) Screening for breast cancer (Acute) Hyperlipidemia (Acute) Atypical chest pain (Acute) Dyspnea on exertion (Acute) Bronchiolitis (Acute) Osteoporosis (Acute) Headache (Acute) Varicose veins of right lower extremity with inflammation (Acute) Arthralgia (Acute) Urinary frequency (Acute) Fatigue (Acute) GERD (gastroesophageal reflux disease) (Acute) FRANCESCA (obstructive sleep apnea) (Acute) CAD (coronary artery disease) (Acute) History of primary hyperparathyroidism (Acute) Non-toxic multinodular goiter (Acute) Osteoporosis (Acute) Pulmonary nodules (Acute) H/O gastroesophageal reflux (GERD) (Acute) Right inguinal hernia (Acute) Anxiety (Acute) Edema (Acute) Dizziness (Acute) Past Medical History Medical History Anxiety Asthma CAD (coronary artery disease) COPD (chronic obstructive pulmonary disease) Depression Dizziness Edema Fusion of spine, cervical region GERD (gastroesophageal reflux disease) H/O gastroesophageal reflux (GERD) History of aneurysm History of deviated nasal septum History of panic attacks History of primary hyperparathyroidism HLD (hyperlipidemia) HTN (hypertension) Medial epicondylitis of left elbow Migraine Non-toxic multinodular goiter FRANCESCA (obstructive sleep apnea) Osteoporosis PTSD (post-traumatic stress disorder) Pulmonary nodules Right inguinal hernia Trigger finger Umbilical pain Family History Family History Father Liver cancer Psoriasis Cancer Mother Cervical cancer Ovarian cancer Heart attack Family history of problems with anesthesia: No Surgical History Surgical History (Updated 11/10/20 @ 13:45 by Vidhi Vora RN) H/O decompression of ulnar nerve History of appendectomy History of cardiac catheterization History of cholecystectomy History of esophagogastroduodenoscopy (EGD) History of eyelid surgery History of hernia repair History of hysterectomy History of lumpectomy of both breasts History of parathyroidectomy Hx of adenoidectomy Hx of cataract surgery Hx of colonoscopy Hx of eye surgery Hx of right inguinal hernia repair Hx of shoulder surgery Hx of tonsillectomy S/P arthroscopic surgery of right knee S/P cubital tunnel release S/P repair of paraesophageal hernia Status post ablation of incompetent vein using laser History of Problems with Anesthesia: No Social History Social History Household Members: Children and None Alcohol intake: current Alcohol intake frequency: does not drink Advance Directives: No Advance Directives Information Provided: Yes Meds Allergies Allergy/AdvReac Type Severity Reaction Status Date / Time [id number] Reductase Allergy Severe JOINT PAIN Verified 10/27/20 10:35 Inhibitor [[id number] REDUCTASE INHIBITOR] amlodipine [AMLODIPINE] Allergy Intermediate PALIPITATIO Verified 10/27/20 10:35 NS baclofen [BACLOFEN] Allergy Intermediate LETHARGY Verified 10/27/20 10:35 Beta-Blockers Allergy Intermediate BRADYCARDIA Verified 10/27/20 10:35 (Beta-Adrenergic Bloc budesonide [From SYMBICORT] Allergy Intermediate HOARSENESS Verified 10/27/20 10:35 Chocolate Allergy Intermediate Itching Verified 10/27/20 10:35 ezetimibe [From ZETIA] Allergy Intermediate JOINT Verified 10/27/20 10:35 PAIN, ELEVATED CPK ibandronate sodium Allergy Intermediate CHEST PAIN Verified 10/27/20 10:35 [From BONIVA] latex [LATEX] Allergy Intermediate RASH-SENSIT Verified 10/27/20 10:35 IVITY lisinopril [LISINOPRIL] Allergy Intermediate COUGH, Verified 10/27/20 10:35 really bad cough, cough meloxicam [From MOBIC] Allergy Intermediate GI UPSET Verified 10/27/20 10:35 mometasone furoate Allergy Intermediate COUGH Verified 10/27/20 10:35 [From DULERA] Penicillins [PENICILLINS] Allergy Intermediate RASH Verified 10/27/20 10:35 pregabalin [From LYRICA] Allergy Intermediate RASH,BLURRED Verified 10/27/20 10:35 VISION raloxifene [From EVISTA] Allergy Intermediate GERD Verified 10/27/20 10:35 sertraline [From ZOLOFT] Allergy Intermediate SKIN Verified 10/27/20 10:35 CRAWLING spironolactone Allergy Intermediate RASH, ?? Verified 10/27/20 10:35 [SPIRONOLACTONE] psoriasis strawberry [STRAWBERRY] Allergy Intermediate ITCHING Verified 10/27/20 10:35 tiotropium Allergy Intermediate RAW THROAT Verified 10/27/20 10:35 [From SPIRIVA WITH HANDIHALER] adhesive [ADHESIVE] Allergy Unknown RASH Verified 10/27/20 10:35 Atrovent Allergy Unknown Unknown Verified 10/27/20 10:35 dexlansoprazole Allergy Unknown UNKNOWN Verified 10/27/20 10:35 [From DEXILANT] doxycycline [DOXYCYCLINE] Allergy Unknown SEVERE NOYOLA, Verified 10/27/20 10:35 HEARTBURN Doxycycline Hyclate Allergy Unknown headache Verified 10/27/20 10:35 esomeprazole [Nexium] Allergy Unknown Unknown Verified 10/27/20 10:35 fluticasone Allergy Unknown HTN Verified 10/27/20 10:35 [From ADVAIR DISKUS] gabapentin [From NEURONTIN] Allergy Unknown THROAT Verified 10/27/20 10:35 TIGHTNESS glucosamine Allergy Unknown Unknown Verified 10/27/20 10:35 metoclopramide [From REGLAN] Allergy Unknown LETHARGY Verified 10/27/20 10:35 monosodium glutamate [MSG] Allergy Unknown HEADACHE Verified 10/27/20 10:35 naproxen [From ALEVE] Allergy Unknown FLUSH Verified 10/27/20 10:35 niacin Allergy Unknown Unknown Verified 10/27/20 10:35 omeprazole Allergy Unknown Unknown Verified 10/27/20 10:35 risedronate sodium Allergy Unknown UNKNOWN Verified 10/27/20 10:35 [From ACTONEL] rofecoxib [From Vioxx] Allergy Unknown ankle Verified 10/27/20 10:35 swelling salmeterol Allergy Unknown HTN Verified 10/27/20 10:35 [From ADVAIR DISKUS] scallops [SCALLOPS] Allergy Unknown NAUSEA & Verified 10/27/20 10:35 VOMITING tramadol [TRAMADOL] Allergy Unknown THROAT Verified 10/27/20 10:35 TIGHTNESS verapamil [VERAPAMIL] Allergy Unknown IRREGULAR Verified 10/27/20 10:35 HEARTBEAT lifitegrast [From Xiidra] Allergy blurred Verified 10/27/20 10:35 vision, headache, eye swelling Home Medications Medication Instructions Recorded Confirmed Last Taken Type Bifidobacterium infantis 4 mg 4 mg PO DAILY 11/17/19 11/10/20 Unknown History capsule (Align) aspirin 81 mg tablet,delayed 81 mg PO DAILY 11/17/19 11/10/20 01/10/20 08:00 History release (Adult Aspirin Regimen) betamethasone dipropionate 0.05 % 1 applic TOPICAL DIRECTED 11/17/19 11/10/20 Unknown History topical cream cetirizine 10 mg tablet (Zyrtec) 5 mg PO DAILY PRN 11/17/19 11/10/20 Unknown History cyclosporine 0.05 % eye drops in a 1 drp OPHTHALMIC (EYE) DIRECTED 11/17/19 10/23/20 Unknown History dropperette cyclosporine 0.05 % eye drops in a 1 drp OPHTHALMIC (EYE) Q12H 11/17/19 11/10/20 Unknown History dropperette (Restasis) docusate sodium 100 mg capsule 100 mg PO BID 11/17/19 11/10/20 Unknown History (Colace) lorazepam 0.5 mg tablet 0.5 mg PO BEDTIME tab 11/17/19 11/10/20 01/14/20 06:00 History magnesium oxide 500 mg tablet 500 mg PO DAILY 11/17/19 11/10/20 Unknown History sucralfate 1 gram tablet PO 11/17/19 10/23/20 Unknown History fluticasone propionate 50 1 spray INTRANASAL DAILY 06/09/20 10/23/20 Unknown History mcg/actuation nasal spray,suspension (Flonase Allergy Relief) fluorometholone 0.1 % eye 1 drp OPHTHALMIC (EYE) BID ml 06/16/20 10/23/20 Unknown History drops,suspension famotidine 40 mg tablet 40 mg PO BEDTIME 11/10/20 11/10/20 Unknown History Exam Exam Date and Time: November 15, 2020 1038 Height,Weight and Vital Signs: Height 4 ft 11 in Weight 73.482 kg Pertinent Lab Results Pertinent Lab Results: Laboratory Tests 10/24/20 10/24/20 08:48 08:48 WBC 7.0 Hgb 14.1 Hct 43.5 Plt Count 320 Sodium 142 Potassium 5.0 Chloride 105 Carbon Dioxide 31 H BUN 10 Creatinine 0.90 Narrative Narrative: Stress MIBI 03/2020 1.? Myocardial perfusion imaging study shows likely normal myocardial perfusion. No definitive evidence of any ischemia or infarction. 2.? Gated LVEF is 72% during stress and 59% during rest. 3. Transient ischemic dilatation not present. Echo 04/2020 The left ventricular systolic function is normal.? The visually estimated ejection fraction is between 65-70%. No obvious valvular pathology seen on this study. Assessment and Plan Assessment Anesthesia Assessment: Chart Reviewed Final Anesthetic Review Family History of Problems with Anesthesia: No History of Problems with Anesthesia: No Documented by User: Aron Parra MD 11/16/20 08:36 PENDING SALE TO [facility] Past Medical History Medical History Anxiety Asthma CAD (coronary artery disease) COPD (chronic obstructive pulmonary disease) Depression Dizziness Edema Fusion of spine, cervical region GERD (gastroesophageal reflux disease) H/O gastroesophageal reflux (GERD) History of aneurysm History of deviated nasal septum History of panic attacks History of primary hyperparathyroidism HLD (hyperlipidemia) HTN (hypertension) Medial epicondylitis of left elbow Migraine Non-toxic multinodular goiter FRANCESCA (obstructive sleep apnea) Osteoporosis PTSD (post-traumatic stress disorder) Pulmonary nodules Right inguinal hernia Trigger finger Umbilical pain Family History Family History Father Liver cancer Psoriasis Cancer Mother Cervical cancer Ovarian cancer Heart attack Surgical History Surgical History (Updated 11/10/20 @ 13:45 by Vidhi Vora RN) H/O decompression of ulnar nerve History of appendectomy History of cardiac catheterization History of cholecystectomy History of esophagogastroduodenoscopy (EGD) History of eyelid surgery History of hernia repair History of hysterectomy History of lumpectomy of both breasts History of parathyroidectomy Hx of adenoidectomy Hx of cataract surgery Hx of colonoscopy Hx of eye surgery Hx of right inguinal hernia repair Hx of shoulder surgery Hx of tonsillectomy S/P arthroscopic surgery of right knee S/P cubital tunnel release S/P repair of paraesophageal hernia Status post ablation of incompetent vein using laser Social History Social History Household Members: Children and None Alcohol intake: current Alcohol intake frequency: does not drink Advance Directives: No Advance Directives Information Provided: Yes Meds Allergies Allergy/AdvReac Type Severity Reaction Status Date / Time [id number]-DbO Reductase Allergy Severe JOINT PAIN Verified 10/27/20 10:35 Inhibitor [[id number]-QLC REDUCTASE INHIBITOR] amlodipine [AMLODIPINE] Allergy Intermediate PALIPITATIO Verified 10/27/20 10:35 NS baclofen [BACLOFEN] Allergy Intermediate LETHARGY Verified 10/27/20 10:35 Beta-Blockers Allergy Intermediate BRADYCARDIA Verified 10/27/20 10:35 (Beta-Adrenergic Bloc budesonide [From SYMBICORT] Allergy Intermediate HOARSENESS Verified 10/27/20 10:35 Chocolate Allergy Intermediate Itching Verified 10/27/20 10:35 ezetimibe [From ZETIA] Allergy Intermediate JOINT Verified 10/27/20 10:35 PAIN, ELEVATED CPK ibandronate sodium Allergy Intermediate CHEST PAIN Verified 10/27/20 10:35 [From BONIVA] latex [LATEX] Allergy Intermediate RASH-SENSIT Verified 10/27/20 10:35 IVITY lisinopril [LISINOPRIL] Allergy Intermediate COUGH, Verified 10/27/20 10:35 really bad cough, cough meloxicam [From MOBIC] Allergy Intermediate GI UPSET Verified 10/27/20 10:35 mometasone furoate Allergy Intermediate COUGH Verified 10/27/20 10:35 [From DULERA] Penicillins [PENICILLINS] Allergy Intermediate RASH Verified 10/27/20 10:35 pregabalin [From LYRICA] Allergy Intermediate RASH,BLURRED Verified 10/27/20 10:35 VISION raloxifene [From EVISTA] Allergy Intermediate GERD Verified 10/27/20 10:35 sertraline [From ZOLOFT] Allergy Intermediate SKIN Verified 10/27/20 10:35 CRAWLING spironolactone Allergy Intermediate RASH, ?? Verified 10/27/20 10:35 [SPIRONOLACTONE] psoriasis strawberry [STRAWBERRY] Allergy Intermediate ITCHING Verified 10/27/20 10:35 tiotropium Allergy Intermediate RAW THROAT Verified 10/27/20 10:35 [From SPIRIVA WITH HANDIHALER] adhesive [ADHESIVE] Allergy Unknown RASH Verified 10/27/20 10:35 Atrovent Allergy Unknown Unknown Verified 10/27/20 10:35 dexlansoprazole Allergy Unknown UNKNOWN Verified 10/27/20 10:35 [From DEXILANT] doxycycline [DOXYCYCLINE] Allergy Unknown SEVERE NOYOLA, Verified 10/27/20 10:35 HEARTBURN Doxycycline Hyclate Allergy Unknown headache Verified 10/27/20 10:35 esomeprazole [Nexium] Allergy Unknown Unknown Verified 10/27/20 10:35 fluticasone Allergy Unknown HTN Verified 10/27/20 10:35 [From ADVAIR DISKUS] gabapentin [From NEURONTIN] Allergy Unknown THROAT Verified 10/27/20 10:35 TIGHTNESS glucosamine Allergy Unknown Unknown Verified 10/27/20 10:35 metoclopramide [From REGLAN] Allergy Unknown LETHARGY Verified 10/27/20 10:35 monosodium glutamate [MSG] Allergy Unknown HEADACHE Verified 10/27/20 10:35 naproxen [From ALEVE] Allergy Unknown FLUSH Verified 10/27/20 10:35 niacin Allergy Unknown Unknown Verified 10/27/20 10:35 omeprazole Allergy Unknown Unknown Verified 10/27/20 10:35 risedronate sodium Allergy Unknown UNKNOWN Verified 10/27/20 10:35 [From ACTONEL] rofecoxib [From Vioxx] Allergy Unknown ankle Verified 10/27/20 10:35 swelling salmeterol Allergy Unknown HTN Verified 10/27/20 10:35 [From ADVAIR DISKUS] scallops [SCALLOPS] Allergy Unknown NAUSEA & Verified 10/27/20 10:35 VOMITING tramadol [TRAMADOL] Allergy Unknown THROAT Verified 10/27/20 10:35 TIGHTNESS verapamil [VERAPAMIL] Allergy Unknown IRREGULAR Verified 10/27/20 10:35 HEARTBEAT lifitegrast [From Xiidra] Allergy blurred Verified 10/27/20 10:35 vision, headache, eye swelling Home Medications Medication Instructions Recorded Confirmed Last Taken Type Bifidobacterium infantis 4 mg 4 mg PO DAILY 11/17/19 11/10/20 Unknown History capsule (Align) aspirin 81 mg tablet,delayed 81 mg PO DAILY 11/17/19 11/10/20 01/10/20 08:00 History release (Adult Aspirin Regimen) betamethasone dipropionate 0.05 % 1 applic TOPICAL DIRECTED 11/17/19 11/10/20 Unknown History topical cream cetirizine 10 mg tablet (Zyrtec) 5 mg PO DAILY PRN 11/17/19 11/10/20 Unknown History cyclosporine 0.05 % eye drops in a 1 drp OPHTHALMIC (EYE) DIRECTED 11/17/19 10/23/20 Unknown History dropperette cyclosporine 0.05 % eye drops in a 1 drp OPHTHALMIC (EYE) Q12H 11/17/19 11/10/20 Unknown History dropperette (Restasis) docusate sodium 100 mg capsule 100 mg PO BID 11/17/19 11/10/20 Unknown History (Colace) lorazepam 0.5 mg tablet 0.5 mg PO BEDTIME tab 11/17/19 11/10/20 01/14/20 06:00 History magnesium oxide 500 mg tablet 500 mg PO DAILY 11/17/19 11/10/20 Unknown History sucralfate 1 gram tablet PO 11/17/19 10/23/20 Unknown History fluticasone propionate 50 1 spray INTRANASAL DAILY 06/09/20 10/23/20 Unknown History mcg/actuation nasal spray,suspension (Flonase Allergy Relief) fluorometholone 0.1 % eye 1 drp OPHTHALMIC (EYE) BID ml 06/16/20 10/23/20 Unknown History drops,suspension famotidine 40 mg tablet 40 mg PO BEDTIME 11/10/20 11/10/20 Unknown History Exam Airway Mallampati Class: II TM Dist: >3cm Neck ROM: Limited
--- NOTE | 2020-11-16 07:59 | MHC.SHP ---
Pre-Procedural Eval Section A Date of Service: 11/16/20 The patient is an INPATIENT: No The History & Physical has been completed within 30 days and I have reviewed it.: Yes Section B Chief Complaint: reflux disease Allergies: Allergies Allergy/AdvReac Type Severity Reaction Status Date / Time Xqahosm-WZA-VyL Reductase Allergy Severe JOINT PAIN Verified 10/27/20 10:35 Inhibitor [[id number] REDUCTASE INHIBITOR] amlodipine [AMLODIPINE] Allergy Intermediate PALIPITATIO Verified 10/27/20 10:35 NS baclofen [BACLOFEN] Allergy Intermediate LETHARGY Verified 10/27/20 10:35 Beta-Blockers Allergy Intermediate BRADYCARDIA Verified 10/27/20 10:35 (Beta-Adrenergic Bloc budesonide [From SYMBICORT] Allergy Intermediate HOARSENESS Verified 10/27/20 10:35 Chocolate Allergy Intermediate Itching Verified 10/27/20 10:35 ezetimibe [From ZETIA] Allergy Intermediate JOINT Verified 10/27/20 10:35 PAIN, ELEVATED CPK ibandronate sodium Allergy Intermediate CHEST PAIN Verified 10/27/20 10:35 [From BONIVA] latex [LATEX] Allergy Intermediate RASH-SENSIT Verified 10/27/20 10:35 IVITY lisinopril [LISINOPRIL] Allergy Intermediate COUGH, Verified 10/27/20 10:35 really bad cough, cough meloxicam [From MOBIC] Allergy Intermediate GI UPSET Verified 10/27/20 10:35 mometasone furoate Allergy Intermediate COUGH Verified 10/27/20 10:35 [From DULERA] Penicillins [PENICILLINS] Allergy Intermediate RASH Verified 10/27/20 10:35 pregabalin [From LYRICA] Allergy Intermediate RASH,BLURRED Verified 10/27/20 10:35 VISION raloxifene [From EVISTA] Allergy Intermediate GERD Verified 10/27/20 10:35 sertraline [From ZOLOFT] Allergy Intermediate SKIN Verified 10/27/20 10:35 CRAWLING spironolactone Allergy Intermediate RASH, ?? Verified 10/27/20 10:35 [SPIRONOLACTONE] psoriasis strawberry [STRAWBERRY] Allergy Intermediate ITCHING Verified 10/27/20 10:35 tiotropium Allergy Intermediate RAW THROAT Verified 10/27/20 10:35 [From SPIRIVA WITH HANDIHALER] adhesive [ADHESIVE] Allergy Unknown RASH Verified 10/27/20 10:35 Atrovent Allergy Unknown Unknown Verified 10/27/20 10:35 dexlansoprazole Allergy Unknown UNKNOWN Verified 10/27/20 10:35 [From DEXILANT] doxycycline [DOXYCYCLINE] Allergy Unknown SEVERE NOYOLA, Verified 10/27/20 10:35 HEARTBURN Doxycycline Hyclate Allergy Unknown headache Verified 10/27/20 10:35 esomeprazole [Nexium] Allergy Unknown Unknown Verified 10/27/20 10:35 fluticasone Allergy Unknown HTN Verified 10/27/20 10:35 [From ADVAIR DISKUS] gabapentin [From NEURONTIN] Allergy Unknown THROAT Verified 10/27/20 10:35 TIGHTNESS glucosamine Allergy Unknown Unknown Verified 10/27/20 10:35 metoclopramide [From REGLAN] Allergy Unknown LETHARGY Verified 10/27/20 10:35 monosodium glutamate [MSG] Allergy Unknown HEADACHE Verified 10/27/20 10:35 naproxen [From ALEVE] Allergy Unknown FLUSH Verified 10/27/20 10:35 niacin Allergy Unknown Unknown Verified 10/27/20 10:35 omeprazole Allergy Unknown Unknown Verified 10/27/20 10:35 risedronate sodium Allergy Unknown UNKNOWN Verified 10/27/20 10:35 [From ACTONEL] rofecoxib [From Vioxx] Allergy Unknown ankle Verified 10/27/20 10:35 swelling salmeterol Allergy Unknown HTN Verified 10/27/20 10:35 [From ADVAIR DISKUS] scallops [SCALLOPS] Allergy Unknown NAUSEA & Verified 10/27/20 10:35 VOMITING tramadol [TRAMADOL] Allergy Unknown THROAT Verified 10/27/20 10:35 TIGHTNESS verapamil [VERAPAMIL] Allergy Unknown IRREGULAR Verified 10/27/20 10:35 HEARTBEAT lifitegrast [From Xiidra] Allergy blurred Verified 10/27/20 10:35 vision, headache, eye swelling Plan Diagnosis/Plan: Unchanged I have reviewed the history and physical and performed a pertinent physical examination on my patient. No changes have occurred unless specified.
[2020-11-16 08:48] VITALS: BP 166/88; PULSE 74; RESP 16; TEMP 36.6; O2SAT 97
[2020-11-16] MEDS: Lactated Ringers 1,000 ML 50 ML IVCONT (08:52)
--- NOTE | 2020-11-16 09:09 | PM.OP ---
Brief Operative Note Date of Service: 11/16/20 Pre-op diagnosis: GERD, epigastric pain Post-op diagnosis: same Procedure: see op note Surgeon: Elton Garcia MD Anesthesia: MAC Was an Commercial Portfolio Manager used for this Procedure?: No Estimated blood loss (mL): 0 Condition: stable Disposition: PACU
--- NOTE | 2020-11-16 09:09 | W.PM.OPN ---
Operative Note Operative Note Date of Service: 11/16/20 Narrative: Procedure Description: EGD FLEXIBLE TRANSORAL UPPER GASTROINTESTINAL ENDOSCOPY UPPER ENDOSCOPY Consent: Indications for the procedure and potential complications of bleeding, perforation, reaction to medications and missed diagnosis were discussed with the patient and informed consent was obtained. Instrument: Olympus GIF H 190 J mid size upper endoscope Monitoring: Vital signs and clinical assessment, continuous EKG monitoring, Pulse oximetry, Carbon Dioxide monitoring and blood pressure monitoring were done throughout the procedure. Procedure: The patient was placed in the left lateral decubitis position and pre-procedure medications were administered and a bite block was placed. The endoscope was inserted into the mouth and advanced under direct vision to the third part of duodenum. A careful inspection was made as the upper endoscope was withdrawn including a retroflexed examination of the proximal stomach; Findings and interventions are described below. Findings: Larynx:normal Esophagus: GE junction at 34 cm, diaphragm hiatus at 34 cm, mild LA grade A esophagitis noted with irregular Z line, bx taken from GEJ and random esophagus. Stomach: Patchy streaky gastric erythema susan in antrum. Biopsies were obtained. Grade 2 flap valve on retroflexed examination of the cardia. Duodenum: Normal bulb and descending duodenum, bx taken Intervention: Biopsies as noted above Impression/Findings: gastritis esophagitis PLAN: cont with pantoprazole as she feels it is making a difference, she just started it so its early days will await path results
[2020-11-16 09:18] VITALS: BP 135/66; PULSE 76; RESP 15; TEMP 36.3; O2SAT 97
[2020-11-16 09:33] VITALS: BP 147/80; PULSE 65; RESP 16; TEMP 36.3; O2SAT 98
== END 2020-11-16 10:04 | disposition home or self-care (01) ==
PROVIDERS: PCP Nurse Practitioner Family; Visit Provider Internal Medicine Gastroenterology
PROC: 0DJ08ZZ Inspection of Upper Intestinal Tract, Via Natural or Artificial Opening Endoscopic (ICD-10-PCS; CPT 43235; principal; 2020-11-16 11:10)
DX: K21.00 Gastro-esophageal reflux disease with esophagitis, without bleeding (principal); K29.50 Unspecified chronic gastritis without bleeding; K44.9 Diaphragmatic hernia without obstruction or gangrene; J44.9 Chronic obstructive pulmonary disease, unspecified; I10 Essential (primary) hypertension; Z79.899 Other long term (current) drug therapy; Z90.49 Acquired absence of other specified parts of digestive tract; Z88.0 Allergy status to penicillin; Z88.1 Allergy status to other antibiotic agents; Z88.8 Allergy status to other drugs, medicaments and biological substances; Z91.040 Latex allergy status
CPT/HCPCS: 43239; 88305; 88342

== ENCOUNTER → 2020-12-13 08:27 | Outpatient (BNVA) | payer MEDICARE, MEDICAID, SELFPAY | PROVIDERS: PCP Nurse Practitioner Family; Visit Provider Hospitalist | DX: G47.33 Obstructive sleep apnea (adult) (pediatric) (principal); K21.9 Gastro-esophageal reflux disease without esophagitis; R91.8 Other nonspecific abnormal finding of lung field; R06.00 Dyspnea, unspecified | CPT/HCPCS: 99212 ==

== ENCOUNTER → 2020-12-29 07:30 | Outpatient (BNVA) | payer MEDICARE, MEDICAID, SELFPAY | PROVIDERS: PCP Nurse Practitioner Family; Visit Provider Surgery Vascular Surgery | DX: I83.11 Varicose veins of right lower extremity with inflammation (principal) | CPT/HCPCS: 37765 ==

== ENCOUNTER → 2021-01-11 08:44 | Outpatient (BNVA) | payer MEDICARE, MEDICAID, SELFPAY | PROVIDERS: PCP Nurse Practitioner Family; Visit Provider Surgery Vascular Surgery | DX: I83.12 Varicose veins of left lower extremity with inflammation (principal) | CPT/HCPCS: 99212 ==

== ENCOUNTER 2021-02-14 07:13 | Outpatient (REF) | payer MEDICARE, MEDICAID, SELFPAY ==
--- NOTE | ~2021-02-14 | MR_ITS ---
MR CERVICAL SPINE WITHOUT CONTRAST CLINICAL INFORMATION: Cervical region radiculopathy. COMPARISON: Cervical spine MRI 02/14/2018. TECHNIQUE: MRI of the cervical spine was obtained using routine sequences without contrast. FINDINGS: Postoperative changes following ACDF at the C5-C7 levels. Retrosubluxation of C4 on C5 is unchanged. There is no bone marrow edema. There are no acute fractures. Craniocervical junction is unremarkable. Cervical arterial flow voids are maintained. No significant extraspinal soft tissue findings. The partially imaged intracranial compartment is unremarkable. C2-C3: Posterior disc contour normal. Uncovertebral joint hypertrophy and hypertrophic facet arthropathy result in similar mild bilateral foraminal encroachment. C3-C4: Disc osteophyte slightly flattens the ventral cord resulting in stable mild central canal stenosis. Advanced uncovertebral joint hypertrophy and hypertrophic facet arthropathy result in stable severe right and moderate to severe left foraminal stenosis. C4-C5: Retrosubluxation. Disc osteophyte and ligamentum flavum thickening result in slightly progressive moderate to severe central canal stenosis and mass effect on the cord. Possible intramedullary T2 signal changes within the cord at this level, best seen on the sagittal STIR series that can be correlated for cervical myelopathy. Advanced uncovertebral joint hypertrophy and hypertrophic facet arthropathy result in severe bilateral foraminal stenosis which is unchanged. C5-C6: ACDF changes. No central canal stenosis. Osteophytic ridging and facet arthropathy result in stable moderate left-sided foraminal stenosis. No central canal and no right foraminal stenosis. C6-C7: ACDF changes. Osteophytic ridging and facet arthropathy result in stable severe left and mild right foraminal stenosis. C7-T1: Disc contour is normal. No central canal stenosis and no foraminal stenosis. MR/MR cervical spine wo con IMPRESSION: - Spondylitic changes result in stable severe right and moderate to severe left foraminal stenosis at C3-C4. - At the junctional C4-C5 level, retrosubluxation and advanced spondylitic changes result in slightly progressive moderate to severe central canal stenosis and mass effect on the cord. Possible intramedullary T2 signal changes within the cord at this level, best seen on the sagittal STIR series that can be correlated for cervical myelopathy. Stable severe bilateral foraminal stenosis at this level. - Redemonstrated postoperative changes following ACDF at the C5-C7 levels. Osteophytic ridging results in stable moderate left C5-C6 and severe left C6-C7 foraminal stenosis.
== END 2021-02-14 07:14 | disposition home or self-care (01) ==
LOC: HO.MRI 07:13
PROVIDERS: Visit Provider Nurse Practitioner Family
DX: M54.12 Radiculopathy, cervical region (principal)
CPT/HCPCS: 72141

== ENCOUNTER → 2021-02-16 08:12 | Outpatient (BNVA) | payer MEDICARE, MEDICAID, SELFPAY | PROVIDERS: PCP Nurse Practitioner Family; Visit Provider Internal Medicine Gastroenterology | DX: Z13.89 Encounter for screening for other disorder (principal) | CPT/HCPCS: Q3014 ==

== ENCOUNTER 2021-02-23 07:16 | Outpatient (REF) | payer MEDICARE, MEDICAID, SELFPAY ==
--- NOTE | ~2021-02-23 | MM_ITS ---
EXAMINATION: MM SCREENING DIGITAL BREAST TOMOSYNTHESIS, BILATERAL CLINICAL INFORMATION: Screening. Asymptomatic. History remote benign right breast excisional biopsy. The lifetime risk of breast cancer based on the Tyrer-Cuzick Model is 2%. COMPARISON: Mammography: 02/18/2020, 02/04/2019, 02/02/2018 TECHNIQUE: Digital breast tomosynthesis is performed in both the craniocaudal and mediolateral oblique views along with computer-aided detection (CAD). Synthesized 2D images are generated from the tomosynthesis. FINDINGS: There are scattered areas of fibroglandular density (ACR BI-RADS breast composition Category b). There are no significant masses, abnormal calcifications, or other abnormalities. MM/MM tomosynthesis screening BI IMPRESSION: No mammographic evidence of malignancy. ASSESSMENT: BI-RADS 1: Negative RECOMMENDATION: Routine annual mammography screening. This patient's information was entered into a reminder system with a target due date for their next mammogram.
== END 2021-02-23 07:17 | disposition home or self-care (01) ==
LOC: HO.MAMMO 07:16
PROVIDERS: Visit Provider Nurse Practitioner Family
DX: Z12.31 Encounter for screening mammogram for malignant neoplasm of breast (principal)
CPT/HCPCS: 77063; 77067

== ENCOUNTER → 2021-03-07 11:06 | Outpatient (BNVA) | payer MEDICARE, MEDICAID, SELFPAY | PROVIDERS: PCP Nurse Practitioner Family; Referring Provider Nurse Practitioner Family; Visit Provider Surgery | DX: R10.31 Right lower quadrant pain (principal) | CPT/HCPCS: 99212 ==

== ENCOUNTER 2021-03-12 13:18 | Outpatient (REF) | payer MEDICARE, MEDICAID, SELFPAY ==
--- NOTE | ~2021-03-12 | CT_ITS ---
EXAMINATION: CT ABDOMEN AND PELVIS WITHOUT CONTRAST CLINICAL INFORMATION: Right lower quadrant pain COMPARISON: Previous CT of the abdomen and pelvis most recent December 2019 TECHNIQUE: Multidetector volumetric imaging was performed from the superior aspect of the liver through the pubic symphysis. Sagittal and coronal reformatted images were obtained on the technologist's workstation. This CT examination was performed using dose optimization techniques as appropriate, variously including the following: *Automated exposure control *Adjustment of mA and/or kV according to patient size (this includes techniques or standardized protocols for targeted exams where dose is matched to indication/reason for exam; i.e. extremities or head) *Use of iterative reconstruction technique DLP: 498 mGy-cm FINDINGS: LUNG BASES: There are clustered small peribronchial nodules seen in the anterior basal left lower lobe adjacent to the diaphragm are stable probably related to chronic airways disease. This is similar to previous exam The lung bases are otherwise clear. LIVER, GALLBLADDER, AND BILIARY TREE: The liver is normal in size, shape, and attenuation. No focal hepatic lesion or biliary ductal dilatation is present. The gallbladder has been removed. PANCREAS: There is fatty infiltration of the pancreas. There is infiltration of the fat surrounding the head of the pancreas questionable for changes from pancreatitis. SPLEEN: Unremarkable. ADRENAL GLANDS: Unremarkable. KIDNEYS AND URETERS: The kidneys are normal in size, shape, and attenuation. No hydronephrosis, hydroureter, or calculi seen. No perinephric stranding. BLADDER: Not optimally distended but appears unremarkable. GASTROINTESTINAL TRACT: There is diverticulosis of the colon. No evidence of diverticulitis is seen. Small and large bowel is otherwise unremarkable. The cecum is located in the central pelvis. The appendix is not identified. There are no inflammatory changes seen adjacent to the cecum. ABDOMINAL WALL: There are postsurgical changes to the anterior abdominal wall. No anterior abdominal wall hernia is seen. There is a small left inguinal hernia containing fat. LYMPH NODES: Normal. VASCULAR: There is atherosclerotic disease. No aneurysm is seen. PELVIC VISCERA: Uterus appears to have been removed. No pelvic mass is seen. OSSEOUS STRUCTURES: Unremarkable. CT/CT abdomen pelvis wo con IMPRESSION: Fatty infiltration of the pancreas. Fat stranding surrounding the head of the pancreas questionable for changes related to pancreatitis. Diverticulosis of the colon. No evidence of diverticulitis. Fleischner guidelines were followed.
== END 2021-03-12 13:19 | disposition home or self-care (01) ==
LOC: HO.CT 13:18
PROVIDERS: PCP Nurse Practitioner Family; Visit Provider Surgery
DX: R10.31 Right lower quadrant pain (principal)
CPT/HCPCS: 74176

== ENCOUNTER → 2021-03-14 11:05 | Outpatient (BNVA) | payer MEDICARE, MEDICAID, SELFPAY | PROVIDERS: PCP Nurse Practitioner Family; Referring Provider Nurse Practitioner Family; Visit Provider Surgery | DX: R10.31 Right lower quadrant pain (principal) | CPT/HCPCS: 99212 ==

== ENCOUNTER 2021-03-15 08:05 | Outpatient (REF) | payer MEDICARE, MEDICAID, SELFPAY ==
--- NOTE | ~2021-03-15 | MR_ITS ---
MR ANGIOGRAPHY BRAIN WITHOUT IV CONTRAST CLINICAL INFORMATION: 3 year followup to aneurysm. COMPARISON: MRA head 07/14/2018 TECHNIQUE: A 3D TOF noncontrast MRA of the head is obtained. Vascular post-processing, including 2-dimensional and 3-dimensional reformatted images were created and reviewed on an independent workstation under concurrent physician supervision. Stenoses are graded per criteria similar to NASCET. FINDINGS: There is a stable 2 mm aneurysm projecting laterally from the right internal carotid artery at the level of the ophthalmic artery origin. No new aneurysms. No significant arterial stenoses in no acute arterial occlusions. Stable infundibulum at the left P-comm origin. MR/MR angio head wo con IMPRESSION: There is a stable 2 mm aneurysm projecting laterally from the right internal carotid artery at the level of the ophthalmic artery origin.
== END 2021-03-15 08:06 | disposition home or self-care (01) ==
LOC: HO.MRI 08:05
PROVIDERS: PCP Nurse Practitioner Family; Visit Provider Neurological Surgery
DX: I72.9 Aneurysm of unspecified site (principal)
CPT/HCPCS: 70544

== ENCOUNTER → 2021-04-03 07:44 | Outpatient (BNVA) | payer MEDICARE, MEDICAID, SELFPAY | PROVIDERS: PCP Nurse Practitioner Family; Visit Provider Internal Medicine Endocrinology, Diabetes & Metabolism | DX: M81.0 Age-related osteoporosis without current pathological fracture (principal); E04.2 Nontoxic multinodular goiter | CPT/HCPCS: 99212 ==

== ENCOUNTER 2021-04-03 09:21 | Outpatient (REF) | payer MEDICARE, MEDICAID, SELFPAY ==
[2021-04-04 15:05] LABS: Prot Elec - Alpha1 0.3 g/dL (0.2-0.3); Prot Elec - Alpha2 0.7 g/dL (0.5-0.9); Prot Elec - Beta 1 0.5 g/dL (0.4-0.6); Prot Elec - Beta 2 0.4 g/dL (0.2-0.5); Prot Elec - Total Protein 6.9 g/dL (6.1-8.1)
== END 2021-04-03 09:22 | disposition home or self-care (01) ==
LOC: HO.10HDL 09:21
PROVIDERS: Visit Provider Internal Medicine Endocrinology, Diabetes & Metabolism
DX: M81.0 Age-related osteoporosis without current pathological fracture (principal); E04.2 Nontoxic multinodular goiter
CPT/HCPCS: 84165; 86335; 99212

== ENCOUNTER 2021-04-04 07:16 | Outpatient (REF) | payer MEDICARE, MEDICAID, SELFPAY ==
--- NOTE | ~2021-04-04 | CT_ITS ---
EXAMINATION: CT CHEST WITHOUT CONTRAST CLINICAL INFORMATION: Follow up pulmonary nodules. COMPARISON: Previous chest CT April 2020. TECHNIQUE: Multidetector volumetric CT imaging of the chest was done. Axial MIP volume rendering provided. Sagittal and coronal reformatted images were obtained. This CT examination was performed using dose optimization techniques as appropriate, variously including the following: *Automated exposure control *Adjustment of mA and/or kV according to patient size (this includes techniques or standardized protocols for targeted exams where dose is matched to indication/reason for exam; i.e. extremities or head) *Use of iterative reconstruction technique DLP: 110 mGy-cm FINDINGS: FIRMWARE MANAGER: LUNGS: The previously identified 5 mm ground-glass attenuation nodule in the right lower lobe is no longer seen. There are two new adjacent 4 mm ground-glass attenuation nodules in the posterior segment of the right upper lobe axial image 89 series 6. No other new pulmonary nodule is seen. There are still clustered peribronchial nodules suggestive of airways disease in the left lower lobe for example axial image 253 series 6 that are stable. MEDIASTINUM: There are surgical clips inferior to the thyroid gland. There are are small mediastinal lymph nodes that are stable. No enlarged lymph nodes are seen. There is evidence of atherosclerotic disease. The heart does not appear enlarged. PLEURA: There is no pleural effusion. No pleural mass or thickening. AXILLA: No lymphadenopathy. UPPER ABDOMEN: The gallbladder has been removed. OSSEOUS STRUCTURES: There are degenerative changes of the spine. There are postsurgical changes to the cervical spine. CT/CT chest wo con IMPRESSION: Previously identified 5 mm ground-glass attenuation nodule in the right lower lobe no longer seen. Two new adjacent 4 mm ground-glass attenuation nodules in the right upper lobe. Pulmonary nodules are otherwise stable. Fleischner guidelines were followed.
== END 2021-04-04 07:17 | disposition home or self-care (01) ==
LOC: HO.CT 07:16
PROVIDERS: PCP Nurse Practitioner Family; Visit Provider Hospitalist
DX: R91.8 Other nonspecific abnormal finding of lung field (principal)
CPT/HCPCS: 71250

== ENCOUNTER 2021-04-05 08:22 | Outpatient (REF) | payer MEDICARE, MEDICAID, SELFPAY ==
[2021-04-05 12:16] LABS: Total Volume 24 Hour Urine 1275 mL
[2021-04-05 12:27] LABS: Creatinine, 24Hr Urine 0.7 G/Day (1.0-2.0); Creatinine, mg/dL 56.79
[2021-04-07 16:21] LABS: Calcium, 24 Hr Urine 14 mg/24 h; Calcium/Creatinine Ratio 19 mg/g creat (30-275); Creatinine 24Hr Urine 0.74 g/24 h (0.50-2.15)
== END 2021-04-05 08:23 | disposition home or self-care (01) ==
LOC: HO.10HDLNP 08:22
PROVIDERS: Visit Provider Internal Medicine Endocrinology, Diabetes & Metabolism
DX: M81.0 Age-related osteoporosis without current pathological fracture (principal)
CPT/HCPCS: 82340; 82570

== ENCOUNTER → 2021-04-11 08:33 | Outpatient (BNVA) | payer MEDICARE, MEDICAID, SELFPAY | PROVIDERS: PCP Nurse Practitioner Family; Visit Provider Hospitalist | DX: G47.33 Obstructive sleep apnea (adult) (pediatric) (principal); R91.8 Other nonspecific abnormal finding of lung field; K21.9 Gastro-esophageal reflux disease without esophagitis; R06.00 Dyspnea, unspecified | CPT/HCPCS: 99212 ==

== ENCOUNTER 2021-04-16 06:22 | Outpatient (REF) | payer MEDICARE, MEDICAID, SELFPAY ==
[2021-04-16 12:15] LABS: Alanine Aminotransferase 7 U/L (0-31); Alkaline Phosphatase 99 U/L (39-117); Anion Gap 11 (12-20); Aspartate Amino Transferase 15 U/L (5-31); Bilirubin Total 0.7 mg/dL (0.0-1.0); Blood Urea Nitrogen 14 mg/dL (9-16); Calcium 9.1 mg/dL (8.4-10.2); Carbon Dioxide 30 mmol/L (22-29); Chloride 103 mmol/L (96-108); Cholesterol 146 mg/dL; Estimated Glomerular Filt Rate > 60; Glucose Fasting 90 mg/dL (60-99); HDL Cholesterol 43 mg/dL; LDL Cholesterol Calculated 78 mg/dl; Potassium 4.3 mmol/L (3.3-5.1); Sodium 140 mmol/L (135-145); Total Protein 6.6 g/dL (6.5-8.0); Triglycerides 127 mg/dL
[2021-04-16 12:20] LABS: Appearance Urine CLEAR; Color Urine YELLOW; Glucose Urine UA NEG (NEG); Leukocyte Esterase Urine 2+ (NEG); Nitrite Urine NEG (NEG); UACC Culture Trigger YES; Urine Blood TRACE (NEG); Urine Ketones NEG (NEG); Urine Protein NEG (NEG-TRACE)
[2021-04-16 12:37] LABS: TSH reflex Free T4 2.25 uIU/mL (0.32-4.0)
[2021-04-16 12:52] LABS: Bacteria Urine TRACE /LPF; RBC Urine 0-2 /HPF (0); Squamous Epithelial Cell Urine 1+ /LPF; WBC Clumps Urine NOTED
[2021-04-16 13:54] LABS: MANUAL DIFF FLAG NO
[2021-04-16 14:00] LABS: Basophils Absolute Auto 0.1 X10*3/uL (0.0-0.2); Basophils Percent Auto 1.1 % (0-2); Eosinophils Absolute Auto 0.2 X10*3/uL (0.0-0.4); Eosinophils Percent Auto 1.8 % (0-4); Hematocrit 40.9 % (37.0-47.0); Hemoglobin 13.5 g/dl (12.0-16.0); Imm Gran Abs Auto 0.02 X10*3/uL (0.00-0.03); Imm Gran Pct Auto 0.2 % (0.0-0.4); Lymphocytes Absolute Auto 2.1 X10*3/uL (1.2-4.9); Lymphocytes Percent Auto 24.5 % (20-40); Mean Corpuscular Hemoglobin 29.9 pg (27.0-33.0); Mean Corpuscular Volume 90.7 fL (80.0-98.0); Mean Platelet Volume 10.9 fL (9.4-12.3); Monocytes Absolute Auto 0.6 X10*3/uL (0.1-1.2); Monocytes Percent Auto 6.6 % (2-11); Neutrophils Absolute Auto 5.5 x10*3/uL (2.0-8.3); Neutrophils Percent Auto 65.8 % (45-73); Platelet Count 308 X10*3/uL (160-400); Red Blood Count 4.51 X10*6/uL (4.20-5.50); Red Cell Distribution Width 12.1 % (11.0-16.0); White Blood Count 8.4 X10*3/uL (4.8-10.8)
[2021-04-16 14:38] LABS: Erythrocyte Sedimentation Rate 9 MM/HR (0-20)
[2021-04-21 17:06] LABS: Asperg fumigatus Precip Abs NEGATIVE (NEGATIVE); Micropoly faeni Abs NEGATIVE (NEGATIVE); Pigeon serum Abs NEGATIVE (NEGATIVE); Saccharo pora viridis Abs NEGATIVE (NEGATIVE); Thermo candidus Abs NEGATIVE (NEGATIVE); Thermoa vulgaris #1 NEGATIVE (NEGATIVE)
== END 2021-04-16 06:23 | disposition home or self-care (01) ==
LOC: HO.HMGCLDS 06:22
PROVIDERS: PCP Nurse Practitioner Family; Visit Provider Hospitalist
DX: E78.5 Hyperlipidemia, unspecified (principal); R91.8 Other nonspecific abnormal finding of lung field
CPT/HCPCS: 36415; 80053; 80061; 81001; 81003; 82785; 84443; 85025; 85652; 86003; 86331; 86606; 86609; 87086

== ENCOUNTER → 2021-05-15 13:10 | Outpatient (BNVA) | payer MEDICARE, MEDICAID, SELFPAY | PROVIDERS: PCP Nurse Practitioner Family; Referring Provider Nurse Practitioner Family; Visit Provider Nurse Practitioner Family | DX: I25.10 Atherosclerotic heart disease of native coronary artery without angina pectoris (principal); E78.5 Hyperlipidemia, unspecified; R06.00 Dyspnea, unspecified | CPT/HCPCS: 99212 ==

== ENCOUNTER → 2021-05-16 08:43 | Outpatient (BNVA) | payer MEDICARE, MEDICAID, SELFPAY | PROVIDERS: PCP Nurse Practitioner Family; Referring Provider Nurse Practitioner Family; Visit Provider Surgery | DX: R10.31 Right lower quadrant pain (principal) | CPT/HCPCS: 99212 ==

== ENCOUNTER → 2021-05-23 08:48 | Outpatient (BNVA) | payer MEDICARE, MEDICAID, SELFPAY | PROVIDERS: PCP Nurse Practitioner Family; Visit Provider Internal Medicine Endocrinology, Diabetes & Metabolism | DX: M81.0 Age-related osteoporosis without current pathological fracture (principal) | CPT/HCPCS: 96372; J3111 ==

== ENCOUNTER 2021-06-01 08:00 | Outpatient (RCR) | payer MEDICARE, MEDICAID, SELFPAY ==
--- NOTE | 2021-05-22 15:41 | MHC.PT.EP ---
[facility] [place] Office [place] [facility] [place] [facility] [address] [place] [address] [phone] F: [phone] F: [phone] F: [phone] F: [phone] Physical Therapy Plan of Care Date of Evaluation: Date of Surgery: n/a Diagnosis: radiculopathy, cervical region Assessment: Patient is a 71 year old female presenting to PT with complaints of pain in her neck. Pt reports onset of pain began worsening in January 2021 due to insidious onset. She presents today with impairments in pain, cervical ROM, numbness and tingling, trap sensitivity, and posture. 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 Pt expresses senior living goal of getting normalcy, and is motivated to work towards this in PT. Clinical presentation today is most consistent with signs and sx associated with MRI findings of severe stenosis and other degenerative changes and pt will benefit from skilled PT to address the following problems and impairments noted upon evaluation: pain, cervical ROM, numbness and tingling, trap sensitivity, and posture.. These problems limit the patient with the following functional activities: sleeping, ADLs, work, lifting. The prescribed treatment plan of care is medically necessary. Co-morbidities of CAD, COPD, hx cervical spine fusion C5-7, osteoporosis, HTN, stable aneurysm were identified and taken into considerations of plan of care. Pt was educated on HEP, role of PT, prognosis, POC. Frequency and Duration: The patient will be seen 2 x week x 4 weeks Short Term Goals: Pt will demonstrate pain at rest <4/10 in 2 weeks for improved QOL. Pt will demonstrate min tenderness in L UT in 2 weeks. Pt will demonstrate improved postural awareness by sitting with biomechanically correct posture without cues throughout session to improve overall postural function in 2 weeks. Librarian Specialist Goals: Pt will demonstrate improved NDI score by 10% for improved overall functional mobility in 4 weeks. Pt will demonstrate ability to sleep with min to no pain in 4 weeks. Pt will demonstrate ability to mop the floors with min pain in 4 weeks. Treatment Plan: Modalities to reduce pain, spasms and effusion. Manual therapy to restore motion and function. Therapeutic exercise to improve strength and flexibility. Neuromuscular re-education for posture and balance. Therapeutic activities to return to functional activities of daily living. Electronically signed by: Sally Flor PT, DPT, ATC Please sign and return to therapist. Thank you for your referral.
--- NOTE | 2021-06-25 15:42 | MHC.PT.DC ---
[facility] [place] Office [place] Office [place] Office [address] [place] [address] [phone] F: [phone] F: [phone] F: [phone] F: [phone] Physical Therapy Discharge Report Diagnosis: radiculopathy, cervical region Date of Surgery: n/a Date of Evaluation: 05/22/21 Date of Discharge: 06/25/21 Treatments to Date: 5 Cancellations to Date: 4 No Shows to Date: 0 Discharge Status: Patient Elected to Stop Discharge Summary: Pt called requesting to be d/c. Pt self d/c at this time and will need new referral to start PT. Electronically signed by: Sally Flor, PT, DPT, ATC Please sign and return to therapist. Thank you for your referral.
== END 2021-06-25 15:42 | disposition home or self-care (01) ==
LOC: HO.PTCHIC 08:00
PROVIDERS: PCP Nurse Practitioner Family; Visit Provider Nurse Practitioner Family
DX: M54.12 Radiculopathy, cervical region (principal)
CPT/HCPCS: 97110; 97140; 97162

== ENCOUNTER → 2021-06-14 08:02 | Outpatient (BNVA) | payer MEDICARE, MEDICAID, SELFPAY | PROVIDERS: PCP Nurse Practitioner Family; Visit Provider Nurse Practitioner Family | DX: M47.812 Spondylosis without myelopathy or radiculopathy, cervical region (principal); M62.838 Other muscle spasm; M96.1 Postlaminectomy syndrome, not elsewhere classified; M54.81 Occipital neuralgia | CPT/HCPCS: 99202 ==

== ENCOUNTER → 2021-06-15 08:27 | Outpatient (BNVA) | payer MEDICARE, MEDICAID, SELFPAY | PROVIDERS: PCP Nurse Practitioner Family; Referring Provider Nurse Practitioner Family; Visit Provider Internal Medicine Gastroenterology | DX: Z13.89 Encounter for screening for other disorder (principal) | CPT/HCPCS: Q3014 ==

== ENCOUNTER → 2021-06-22 08:50 | Outpatient (BNVA) | payer MEDICARE, MEDICAID, SELFPAY | PROVIDERS: PCP Nurse Practitioner Family; Visit Provider Internal Medicine | DX: Z13.89 Encounter for screening for other disorder (principal) ==

== ENCOUNTER → 2021-06-25 12:27 | Outpatient (BNVA) | payer MEDICARE, MEDICAID, SELFPAY | PROVIDERS: PCP Nurse Practitioner Family; Visit Provider Nurse Practitioner Gerontology | DX: M81.0 Age-related osteoporosis without current pathological fracture (principal); M47.812 Spondylosis without myelopathy or radiculopathy, cervical region | CPT/HCPCS: 96372; J3111 ==

== ENCOUNTER 2021-06-30 10:17 | Outpatient (REF) | payer MEDICARE, MEDICAID, SELFPAY ==
[2021-06-30 11:11] LABS: MANUAL DIFF FLAG NO
[2021-06-30 11:14] LABS: Basophils Absolute Auto 0.1 X10*3/uL (0.0-0.2); Basophils Percent Auto 0.9 % (0-2); Eosinophils Percent Auto 0.1 % (0-4); Imm Gran Abs Auto 0.02 X10*3/uL (0.00-0.03); Imm Gran Pct Auto 0.2 % (0.0-0.4); Lymphocytes Absolute Auto 0.6 X10*3/uL (1.2-4.9); Mean Corpuscular HGB Conc 34.1 g/dl (31.0-35.0); Mean Corpuscular Hemoglobin 29.8 pg (27.0-33.0); Mean Corpuscular Volume 87.2 fL (80.0-98.0); Mean Platelet Volume 10.6 fL (9.4-12.3); Monocytes Absolute Auto 0.5 X10*3/uL (0.1-1.2); Monocytes Percent Auto 4.6 % (2-11); Neutrophils Absolute Auto 8.6 x10*3/uL (2.0-8.3); Neutrophils Percent Auto 88.2 % (45-73); Platelet Count 331 X10*3/uL (160-400); Red Cell Distribution Width 12.2 % (11.0-16.0); White Blood Count 9.7 X10*3/uL (4.8-10.8)
[2021-06-30 11:37] LABS: Alanine Aminotransferase 13 U/L (0-31); Albumin Level 4.1 g/dL (3.5-5.0); Alkaline Phosphatase 187 U/L (39-117); Anion Gap 13 (12-20); Aspartate Amino Transferase 18 U/L (5-31); Bilirubin Total 1.2 mg/dL (0.0-1.0); Blood Urea Nitrogen 14 mg/dL (9-16); Calcium 8.5 mg/dL (8.4-10.2); Carbon Dioxide 26 mmol/L (22-29); Chloride 103 mmol/L (96-108); Estimated Glomerular Filt Rate 57; Glucose Random 120 mg/dL (60-115); Potassium 3.6 mmol/L (3.3-5.1); Sodium 138 mmol/L (135-145); Total Protein 7.1 g/dL (6.5-8.0)
== END 2021-06-30 10:18 | disposition home or self-care (01) ==
LOC: HO.HMGCLDS 10:17
PROVIDERS: PCP Nurse Practitioner Family; Visit Provider Nurse Practitioner Acute Care
DX: R11.2 Nausea with vomiting, unspecified (principal); R53.83 Other fatigue
CPT/HCPCS: 36415; 80053; 85025

== ENCOUNTER → 2021-07-04 07:51 | Outpatient (BNVA) | payer MEDICARE, MEDICAID, SELFPAY | PROVIDERS: PCP Nurse Practitioner Family; Visit Provider Internal Medicine Endocrinology, Diabetes & Metabolism | DX: M81.0 Age-related osteoporosis without current pathological fracture (principal) | CPT/HCPCS: 99212 ==

== ENCOUNTER → 2021-07-05 08:20 | Outpatient (BNVA) | payer MEDICARE, MEDICAID, SELFPAY | PROVIDERS: PCP Nurse Practitioner Family; Visit Provider Nurse Practitioner Family | DX: Z13.89 Encounter for screening for other disorder (principal) | CPT/HCPCS: Q3014 ==

== ENCOUNTER → 2021-07-27 08:53 | Outpatient (BNVA) | payer MEDICARE, MEDICAID, SELFPAY | PROVIDERS: PCP Nurse Practitioner Family; Visit Provider Internal Medicine | DX: M79.18 Myalgia, other site (principal); M54.81 Occipital neuralgia; M96.1 Postlaminectomy syndrome, not elsewhere classified | CPT/HCPCS: 20553; 64405; 64450; 99212; J2795 ==

== ENCOUNTER → 2021-08-02 12:58 | Outpatient (BNVA) | payer MEDICARE, MEDICAID, SELFPAY | PROVIDERS: PCP Nurse Practitioner Family; Visit Provider Internal Medicine Endocrinology, Diabetes & Metabolism | DX: M81.0 Age-related osteoporosis without current pathological fracture (principal) | CPT/HCPCS: 96372; J3111 ==

== ENCOUNTER 2021-08-08 06:45 | Outpatient (REF) | payer MEDICARE, MEDICAID, SELFPAY ==
[2021-08-08 11:16] LABS: MANUAL DIFF FLAG NO
[2021-08-08 11:19] LABS: Appearance Urine CLEAR; Color Urine YELLOW; Glucose Urine UA NEG (NEG); Leukocyte Esterase Urine NEG (NEG); Nitrite Urine NEG (NEG); UACC Culture Trigger NO; Urine Blood TRACE (NEG); Urine Ketones NEG (NEG); Urine Protein NEG (NEG-TRACE)
[2021-08-08 11:23] LABS: Basophils Absolute Auto 0.1 X10*3/uL (0.0-0.2); Basophils Percent Auto 1.4 % (0-2); Eosinophils Absolute Auto 0.3 X10*3/uL (0.0-0.4); Eosinophils Percent Auto 3.8 % (0-4); Hematocrit 40.2 % (37.0-47.0); Hemoglobin 13.3 g/dl (12.0-16.0); Imm Gran Abs Auto 0.02 X10*3/uL (0.00-0.03); Imm Gran Pct Auto 0.3 % (0.0-0.4); Lymphocytes Absolute Auto 1.7 X10*3/uL (1.2-4.9); Lymphocytes Percent Auto 24.8 % (20-40); Mean Corpuscular HGB Conc 33.1 g/dl (31.0-35.0); Mean Corpuscular Hemoglobin 29.7 pg (27.0-33.0); Mean Corpuscular Volume 89.7 fL (80.0-98.0); Mean Platelet Volume 11.1 fL (9.4-12.3); Monocytes Absolute Auto 0.5 X10*3/uL (0.1-1.2); Monocytes Percent Auto 6.5 % (2-11); Neutrophils Absolute Auto 4.4 x10*3/uL (2.0-8.3); Neutrophils Percent Auto 63.2 % (45-73); Platelet Count 332 X10*3/uL (160-400); Red Blood Count 4.48 X10*6/uL (4.20-5.50); Red Cell Distribution Width 12.3 % (11.0-16.0); White Blood Count 6.9 X10*3/uL (4.8-10.8)
[2021-08-08 11:40] LABS: Alanine Aminotransferase 12 U/L (0-31); Alkaline Phosphatase 157 U/L (39-117); Aspartate Amino Transferase 16 U/L (5-31); Bilirubin Direct 0.3 mg/dL (0.0-0.5); Bilirubin Total 0.7 mg/dL (0.0-1.0); Gamma Glutamyl Transpeptidase 16 U/L (7-33); Total Protein 6.7 g/dL (6.5-8.0)
[2021-08-08 11:46] LABS: WBC Urine 0-2 /HPF (0-4)
[2021-08-08 11:58] LABS: Alkaline Phosphatase 156 U/L (39-117)
[2021-08-08 12:01] LABS: TSH reflex Free T4 2.05 uIU/mL (0.32-4.0)
== END 2021-08-08 06:46 | disposition home or self-care (01) ==
LOC: HO.HMGCLDS 06:45
PROVIDERS: PCP Nurse Practitioner Family; Visit Provider Nurse Practitioner Family
DX: R74.8 Abnormal levels of other serum enzymes (principal); R31.29 Other microscopic hematuria; T50.B95A Adverse effect of other viral vaccines, initial encounter
CPT/HCPCS: 36415; 80076; 81001; 82977; 84075; 84443; 85025

== ENCOUNTER 2021-08-24 09:30 | Outpatient (RCR) | payer MEDICARE, MEDICAID, SELFPAY | END 2021-12-05 10:02 | disposition home or self-care (01) | LOC: HO.OT 09:30 | PROVIDERS: PCP Nurse Practitioner Family; Visit Provider Orthopaedic Surgery | DX: Z98.890 Other specified postprocedural states (principal) | CPT/HCPCS: 97033; 97035; 97110; 97112; 97140; 97166 ==

== ENCOUNTER 2021-09-07 09:24 | Outpatient (REF) | payer MEDICARE, MEDICAID, SELFPAY ==
--- NOTE | ~2021-09-07 | XR_ITS ---
EXAMINATION: XR HIP, RIGHT CLINICAL INFORMATION: Right hip pain. COMPARISON: CT abdomen/pelvis 03/12/2021. TECHNIQUE: Two views of the right hip. FINDINGS: No acute fracture or malalignment. Mild degenerative osteoarthritis of both hips. Nonspecific surgical clip projecting over the left inferior pelvis. Small pelvic phleboliths noted. XR/XR hip RT w PEL1V IMPRESSION: No acute fracture or malalignment. Mild degenerative osteoarthritis.
--- NOTE | ~2021-09-07 | XR_ITS ---
EXAMINATION: XR LUMBOSACRAL SPINE WITH OBLIQUES CLINICAL INFORMATION: Postlaminectomy syndrome. Limited range of motion. Lower back pain. COMPARISON: CT abdomen/pelvis 03/12/2021. TECHNIQUE: AP, both oblique, and lateral views of the lumbar spine. Lateral view of the lumbosacral junction. FINDINGS: Mild right apical curvature of the lumbar spine. No evidence of acute compression deformities or subluxation. Limited mobility on flexion and extension views without evidence of instability. Severe disc space narrowing at L5-S1 with associated bilateral facet arthropathy leading to central canal narrowing and neural foraminal encroachment. Mild to moderate disc space narrowing and facet arthropathy elsewhere. SI joints are symmetric. Atherosclerotic disease of the abdominal aorta. Right upper quadrant cholecystectomy clips. Nonspecific surgical clips in the pelvis. Small pelvic phleboliths. XR/XR lumbar spine 6V w bending IMPRESSION: No acute compression deformity or malalignment. Multilevel degenerative changes of the lumbar spine, more notable at L5-S1. Correlation with an MR of the lumbar spine could be obtained to assess for the degree of nerve root impingement and central canal narrowing if clinically deemed appropriate.
[2021-09-07 11:00] LABS: Urine Cytology See Pathology rpt
[2021-09-07 11:13] LABS: Appearance Urine CLEAR; Color Urine YELLOW; Glucose Urine UA NEG (NEG); Leukocyte Esterase Urine NEG (NEG); Nitrite Urine NEG (NEG); PH 6.5 (5.0-8.0); UACC Culture Trigger NO; Urine Blood TRACE (NEG); Urine Ketones NEG (NEG); Urine Protein NEG (NEG-TRACE)
[2021-09-07 11:32] LABS: Amorphous Sediment Urine 1+ /LPF; RBC Urine 0-2 /HPF (0); WBC Urine 0 /HPF (0-4)
== END 2021-09-07 09:25 | disposition home or self-care (01) ==
LOC: HO.10HDLNP 09:24
PROVIDERS: Absent Provider Nurse Practitioner Family; PCP Nurse Practitioner Family; Visit Provider Nurse Practitioner Family
DX: M47.816 Spondylosis without myelopathy or radiculopathy, lumbar region (principal); M96.1 Postlaminectomy syndrome, not elsewhere classified; M25.551 Pain in right hip; M54.81 Occipital neuralgia; M47.812 Spondylosis without myelopathy or radiculopathy, cervical region; M62.838 Other muscle spasm; M48.02 Spinal stenosis, cervical region; R31.29 Other microscopic hematuria
CPT/HCPCS: 72114; 73502; 81001; 81003; 87086; 88112; 99212

== ENCOUNTER 2021-09-12 06:59 | Outpatient (REF) | payer MEDICARE, MEDICAID, SELFPAY ==
[2021-09-12 14:33] LABS: Blood Urea Nitrogen 12 mg/dL (9-16); Estimated Glomerular Filt Rate 56
== END 2021-09-12 07:00 | disposition home or self-care (01) ==
LOC: HO.HMGCLDS 06:59
PROVIDERS: PCP Nurse Practitioner Family; Visit Provider Nurse Practitioner Family
DX: M51.36 Other intervertebral disc degeneration, lumbar region (principal); M96.1 Postlaminectomy syndrome, not elsewhere classified
CPT/HCPCS: 36415; 82565; 84520

== ENCOUNTER 2021-09-19 17:52 | Outpatient (REF) | payer MEDICARE, MEDICAID, SELFPAY ==
--- NOTE | ~2021-09-19 | MR_ITS ---
EXAMINATION: MR LUMBAR SPINE WITHOUT AND WITH CONTRAST CLINICAL INFORMATION: Lumbar disc degeneration. COMPARISON: Lumbar spine MRI from 01/09/2017. TECHNIQUE: MRI of the lumbar spine was obtained using routine sequences without and following the administration of 7.5 mL of Gadavist intravenous contrast. FINDINGS: Mild degenerative grade 1 anterolisthesis of L4 on L5. Otherwise, normal anatomic alignment. Advanced degenerative disc disease at T12-L1 and L5-S1. Moderate degenerative disc disease at T11-T12, L3-L4, and L4-L5. Associated mixed Modic type discogenic endplate changes including mild Modic type I discogenic edema at L4-L5 and L5-S1. Mild marrow edema within the L4-S1 posterior elements consistent with degenerative stress reaction. Lipid rich hemangioma within the L2 vertebral body. No additional suspicious marrow edema. The vertebral body heights are largely maintained. The conus medullaris terminates at the level of L2-L3. Short segment small T2 hyperintense syrinx centrally within the cord at the level of T12-L1, measuring up to 0.2 cm in diameter. No additional spinal cord signal abnormalities. No abnormal contrast enhancement. Moderate subcutaneous edema within the soft tissues of the back from L3-S2. No additional significant abnormalities of the paraspinal musculature. Limited evaluation of the intra-abdominal structures without significant abnormalities. The abdominal aorta is of normal contour and caliber. AXIAL SPINAL LEVELS: T12-L1: Mild diffuse disc bulge. There is moderate bilateral facet joint arthropathy. There is no neural foraminal stenosis. There is no spinal canal stenosis. L1-L2: Shallow diffuse disc bulge. There is moderate left and mild right facet joint arthropathy. There is no neural foraminal stenosis. There is no spinal canal stenosis. L2-L3: Mild diffuse disc bulge. There is moderate bilateral facet joint arthropathy. There is no neural foraminal stenosis. There is no spinal canal stenosis. L3-L4: Mild diffuse disc bulge. There is moderate to severe bilateral facet joint arthropathy. There is moderate right and mild left neural foraminal stenosis. There is stenosis of the right greater than left subarticular zones with no overt spinal canal stenosis centrally. L4-L5: Moderate diffuse disc bulge. Changes of left-sided hemilaminotomy. There is severe bilateral facet joint arthropathy. There is moderate bilateral neural foraminal stenosis. There is no spinal canal stenosis. L5-S1: Mild diffuse disc bulge. There is severe right and moderate left facet joint arthropathy. There is moderate right and mild left neural foraminal stenosis. There is no spinal canal stenosis. MR/MR lumbar spine wo/w con IMPRESSION: Moderate multilevel degenerative spondyloarthropathy of the lumbar spine as described in detail above. Most notably, there are stenoses of the subarticular zones at L3-L4. Moderate neural foraminal stenoses from L3-S1. The conus medullaris terminates at the level of L2-L3. Stable tiny short segment syrinx at the level of T12-L1. Facet joint arthropathy at L3-L4 has mildly progressed compared to 2017. Otherwise, degenerative changes appear similar in degree compared to 2017.
== END 2021-09-19 17:53 | disposition home or self-care (01) ==
LOC: HO.MRI 17:52
PROVIDERS: Visit Provider Nurse Practitioner Family
DX: M51.36 Other intervertebral disc degeneration, lumbar region (principal); M47.816 Spondylosis without myelopathy or radiculopathy, lumbar region
CPT/HCPCS: 72158; A9585

== ENCOUNTER → 2021-09-28 15:46 | Outpatient (BNVA) | payer MEDICARE, MEDICAID, SELFPAY | PROVIDERS: PCP Nurse Practitioner Family; Visit Provider Nurse Practitioner Family | DX: M47.816 Spondylosis without myelopathy or radiculopathy, lumbar region (principal); M96.1 Postlaminectomy syndrome, not elsewhere classified; M25.551 Pain in right hip | CPT/HCPCS: Q3014 ==

== ENCOUNTER → 2021-10-05 08:11 | Outpatient (BNVA) | payer MEDICARE, MEDICAID, SELFPAY | PROVIDERS: PCP Nurse Practitioner Family; Visit Provider Internal Medicine Endocrinology, Diabetes & Metabolism | DX: M81.0 Age-related osteoporosis without current pathological fracture (principal) | CPT/HCPCS: 96372; J3111 ==

== ENCOUNTER → 2021-10-24 08:06 | Outpatient (BNVA) | payer MEDICARE, MEDICAID, SELFPAY | PROVIDERS: PCP Nurse Practitioner Family; Visit Provider Hospitalist | DX: G47.33 Obstructive sleep apnea (adult) (pediatric) (principal); R06.00 Dyspnea, unspecified; R91.8 Other nonspecific abnormal finding of lung field; K21.9 Gastro-esophageal reflux disease without esophagitis | CPT/HCPCS: 99212 ==

== ENCOUNTER → 2021-11-05 12:54 | Outpatient (BNVA) | payer MEDICARE, MEDICAID, SELFPAY | PROVIDERS: PCP Nurse Practitioner Family; Visit Provider Internal Medicine | DX: M81.0 Age-related osteoporosis without current pathological fracture (principal) | CPT/HCPCS: 96372; J3111 ==

== ENCOUNTER 2021-11-07 06:04 | Outpatient (REF) | payer MEDICARE, MEDICAID, SELFPAY ==
--- NOTE | ~2021-11-07 | FL_ITS ---
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 COMPARISON: None. TECHNIQUE: Fluoroscopy performed by HALIE Sequeira. Fluoroscopy time: 0.4 minutes. Cumulative Dose: 3.45 mGy. DAP: 0.439 Gy-cm2. Images: 5. FINDINGS: On the lateral view, there is a ventral plate and screws for fusion of C5 through C7 vertebrae. There is loss of the C3-C4 and C4-C5 disc heights. Visualized vertebral heights are maintained normal. There are needles positioned left of C3, C4 and C5 lamina with contrast opacifying the soft tissues. FL/FL guidance in treatment room IMPRESSION: Fluoroscopy guidance was provided to referrer for pain management.
== END 2021-11-07 06:05 | disposition home or self-care (01) ==
LOC: CF 06:04
PROVIDERS: Visit Provider Internal Medicine
DX: M47.812 Spondylosis without myelopathy or radiculopathy, cervical region (principal); M54.12 Radiculopathy, cervical region; M43.22 Fusion of spine, cervical region; M81.0 Age-related osteoporosis without current pathological fracture
CPT/HCPCS: 64490; 64491; J2795; Q9965

== ENCOUNTER → 2021-11-08 09:07 | Outpatient (BNVA) | payer MEDICARE, MEDICAID, SELFPAY | PROVIDERS: PCP Nurse Practitioner Family; Visit Provider Nurse Practitioner Family | DX: M47.812 Spondylosis without myelopathy or radiculopathy, cervical region (principal); M96.1 Postlaminectomy syndrome, not elsewhere classified; M54.81 Occipital neuralgia; M62.838 Other muscle spasm; M48.02 Spinal stenosis, cervical region | CPT/HCPCS: Q3014 ==

== ENCOUNTER 2021-11-21 06:07 | Outpatient (REF) | payer MEDICARE, MEDICAID, SELFPAY ==
--- NOTE | ~2021-11-21 | FL_ITS ---
EXAMINATION: XR FLUOROSCOPY WITH IMAGES CLINICAL INFORMATION: Spondylosis without myelopathy or radiculopathy COMPARISON: Cervical spine 10/30/2021 TECHNIQUE: Fluoroscopy performed by Christie. Fluoroscopy time: 0.6 minutes. Cumulative Dose: 3.52 mGy. DAP: 0.54 Gy-cm2. Images: 4. FINDINGS: AP and lateral views of the cervical spine reveal needle positioned adjacent to C3-C4 and C5-C6 lateral masses with contrast opacifying the adjacent soft tissues. There is ventral plate from C5 through C7 vertebra for disc fusion. Similar findings were seen on the previous exam 11/07/2021. FL/FL guidance in treatment room IMPRESSION: Fluoroscopy was provided to referrer for pain management.
== END 2021-11-21 06:08 | disposition home or self-care (01) ==
LOC: CF 06:07
PROVIDERS: Visit Provider Internal Medicine
DX: M47.812 Spondylosis without myelopathy or radiculopathy, cervical region (principal); M96.1 Postlaminectomy syndrome, not elsewhere classified
CPT/HCPCS: 64490; 64491

== ENCOUNTER → 2021-11-26 08:17 | Outpatient (BNVA) | payer MEDICARE, MEDICAID, SELFPAY | PROVIDERS: PCP Nurse Practitioner Family; Visit Provider Nurse Practitioner Family | DX: M47.812 Spondylosis without myelopathy or radiculopathy, cervical region (principal); M96.1 Postlaminectomy syndrome, not elsewhere classified; M54.81 Occipital neuralgia; M62.838 Other muscle spasm; M53.3 Sacrococcygeal disorders, not elsewhere classified; G89.29 Other chronic pain | CPT/HCPCS: Q3014 ==

== ENCOUNTER 2021-12-06 07:41 | Day surgery (SDC) | payer MEDICARE, MEDICAID, SELFPAY ==
[2021-11-30 14:48] VITALS: BMI 32.3
--- NOTE | 2021-12-05 13:28 | P.CONAN_ITS ---
Documented by User: Kiana Brito NP 12/05/21 13:33 HPI - Anesthesia Eval Consult details Narrative: 71yo F for Upper Endoscopy and Colonoscopy *Multiple Med Allergies* Stable at 05/2021 cardiac visit and 10/2021 pulmo visit [facility] Active Problems Active Problems: All Active Problems (Updated 11/26/21 @ 09:42 by HALIE Sequeira) Chronic left sacroiliac joint pain (Acute) Lumbar degenerative disc disease (Acute) Lumbar spondylosis (Acute) Lumbar post-laminectomy syndrome (Acute) Right hip pain (Acute) Microscopic hematuria (Acute) Elevated alkaline phosphatase level (Acute) Adverse reaction to COVID-19 vaccine (Acute) Fatigue (Acute) Nausea & vomiting (Acute) Occipital neuralgia of left side (Acute) Failed back syndrome of cervical spine (Acute) Cervical spondylosis (Acute) Muscle spasm (Acute) HTN (hypertension) (Acute) Right trigger finger (Acute) Urinary tract infection (Acute) Upper respiratory tract infection (Acute) Right groin pain (Acute) Cervical stenosis of spine (Acute) Cervical radiculitis (Acute) Varicose veins of left lower extremity with inflammation (Acute) Allergies (Acute) Chronic sinusitis (Acute) Inguinal hernia (Acute) Rectal urgency (Acute) Screening for breast cancer (Acute) Hyperlipidemia (Acute) Atypical chest pain (Acute) Dyspnea on exertion (Acute) Bronchiolitis (Acute) Osteoporosis (Acute) Headache (Acute) Varicose veins of right lower extremity with inflammation (Acute) Arthralgia (Acute) Urinary frequency (Acute) Fatigue (Acute) GERD (gastroesophageal reflux disease) (Acute) FRANCESCA (obstructive sleep apnea) (Acute) CAD (coronary artery disease) (Acute) History of primary hyperparathyroidism (Acute) Non-toxic multinodular goiter (Acute) Osteoporosis (Acute) Pulmonary nodules (Acute) H/O gastroesophageal reflux (GERD) (Acute) Right inguinal hernia (Acute) Anxiety (Acute) Edema (Acute) Dizziness (Acute) Past Medical History Medical History Anxiety Asthma CAD (coronary artery disease) Cervical radiculitis Chronic sinusitis COPD (chronic obstructive pulmonary disease) COVID-19 vaccine administered Depression Dizziness Edema Fusion of spine, cervical region GERD (gastroesophageal reflux disease) H/O gastroesophageal reflux (GERD) History of aneurysm History of deviated nasal septum History of panic attacks History of primary hyperparathyroidism History of trigger finger HLD (hyperlipidemia) HTN (hypertension) Medial epicondylitis of left elbow Migraine Non-toxic multinodular goiter FRANCESCA (obstructive sleep apnea) Osteoporosis PTSD (post-traumatic stress disorder) Pulmonary nodules Right groin pain Right inguinal hernia Trigger finger Umbilical pain Family History Family History Father Liver cancer Psoriasis Cancer Mental health disorder Mother Cervical cancer Ovarian cancer Heart attack Substance use disorder Family history of problems with anesthesia: No Surgical History Surgical History H/O decompression of ulnar nerve History of appendectomy History of cardiac catheterization History of cholecystectomy History of esophagogastroduodenoscopy (EGD) History of eyelid surgery History of hernia repair History of hysterectomy History of lumpectomy of both breasts History of parathyroidectomy Hx of adenoidectomy Hx of cataract surgery Hx of colonoscopy Hx of eye surgery Hx of hand surgery Hx of right inguinal hernia repair Hx of shoulder surgery Hx of tonsillectomy S/P arthroscopic surgery of right knee S/P cubital tunnel release S/P repair of paraesophageal hernia Status post ablation of incompetent vein using laser History of Problems with Anesthesia: No Social History Social History Household Members: Children and None Housing: House Alcohol intake: current Alcohol intake frequency: does not drink Patient Tobacco Use Status: Former Tobacco user Quit Date: 1979 e-Cigarette/Vaping Use: Never Used Second Hand Smoke Exposure: No service: No Current occupational status: employed Cognitive needs: No Hearing needs: No Vision needs: No Meds Allergies Allergy/AdvReac Type Severity Reaction Status Date / Time Lkkwoze-ZOY-YkQ Reductase Allergy Severe JOINT PAIN Verified 11/26/21 08:19 Inhibitor [[id number] REDUCTASE INHIBITOR] amlodipine [AMLODIPINE] Allergy Intermediate PALIPITATIO Verified 11/26/21 08:19 NS baclofen [BACLOFEN] Allergy Intermediate LETHARGY Verified 11/26/21 08:19 Beta-Blockers Allergy Intermediate BRADYCARDIA Verified 11/26/21 08:19 (Beta-Adrenergic Bloc budesonide [From SYMBICORT] Allergy Intermediate HOARSENESS Verified 11/26/21 08:19 Chocolate Allergy Intermediate Itching Verified 11/26/21 08:19 ezetimibe [From ZETIA] Allergy Intermediate JOINT Verified 11/26/21 08:19 PAIN, ELEVATED CPK ibandronate sodium Allergy Intermediate CHEST PAIN Verified 11/26/21 08:19 [From BONIVA] latex [LATEX] Allergy Intermediate RASH-SENSIT Verified 11/26/21 08:19 IVITY lisinopril [LISINOPRIL] Allergy Intermediate COUGH, Verified 11/26/21 08:19 really bad cough, cough meloxicam [From MOBIC] Allergy Intermediate GI UPSET Verified 11/26/21 08:19 mometasone furoate Allergy Intermediate COUGH Verified 11/26/21 08:19 [From DULERA] Penicillins [PENICILLINS] Allergy Intermediate RASH Verified 11/26/21 08:19 pregabalin [From LYRICA] Allergy Intermediate RASH,BLURRED Verified 11/26/21 08:19 VISION raloxifene [From EVISTA] Allergy Intermediate GERD Verified 11/26/21 08:19 sertraline [From ZOLOFT] Allergy Intermediate SKIN Verified 11/26/21 08:19 CRAWLING spironolactone Allergy Intermediate RASH, ?? Verified 11/26/21 08:19 [SPIRONOLACTONE] psoriasis strawberry [STRAWBERRY] Allergy Intermediate ITCHING Verified 11/26/21 08:19 tiotropium Allergy Intermediate RAW THROAT Verified 11/26/21 08:19 [From SPIRIVA WITH HANDIHALER] adhesive [ADHESIVE] Allergy Unknown RASH Verified 11/26/21 08:19 Atrovent Allergy Unknown Unknown Verified 11/26/21 08:19 dexlansoprazole Allergy Unknown UNKNOWN Verified 11/26/21 08:19 [From DEXILANT] doxycycline [DOXYCYCLINE] Allergy Unknown SEVERE NOYOLA, Verified 11/26/21 08:19 HEARTBURN Doxycycline Hyclate Allergy Unknown headache Verified 11/26/21 08:19 esomeprazole [Nexium] Allergy Unknown Unknown Verified 11/26/21 08:19 fluticasone Allergy Unknown HTN Verified 11/26/21 08:19 [From ADVAIR DISKUS] gabapentin [From NEURONTIN] Allergy Unknown THROAT Verified 11/26/21 08:19 TIGHTNESS glucosamine Allergy Unknown Unknown Verified 11/26/21 08:19 metoclopramide [From REGLAN] Allergy Unknown LETHARGY Verified 11/26/21 08:19 monosodium glutamate [MSG] Allergy Unknown HEADACHE Verified 11/26/21 08:19 naproxen [From ALEVE] Allergy Unknown FLUSH Verified 11/26/21 08:19 niacin Allergy Unknown Unknown Verified 11/26/21 08:19 omeprazole Allergy Unknown Unknown Verified 11/26/21 08:19 risedronate sodium Allergy Unknown UNKNOWN Verified 11/26/21 08:19 [From ACTONEL] rofecoxib [From Vioxx] Allergy Unknown ankle Verified 11/26/21 08:19 swelling salmeterol Allergy Unknown HTN Verified 11/26/21 08:19 [From ADVAIR DISKUS] scallops [SCALLOPS] Allergy Unknown NAUSEA & Verified 11/26/21 08:19 VOMITING tramadol [TRAMADOL] Allergy Unknown THROAT Verified 11/26/21 08:19 TIGHTNESS verapamil [VERAPAMIL] Allergy Unknown IRREGULAR Verified 11/26/21 08:19 HEARTBEAT lifitegrast [From Xiidra] Allergy blurred Verified 11/26/21 08:19 vision, headache, eye swelling fluticasone furoate AdvReac Unknown Uknown Verified 11/26/21 08:19 [From Trelegy Ellipta] umeclidinium AdvReac Unknown Uknown Verified 11/26/21 08:19 [From Trelegy Ellipta] vilanterol AdvReac Unknown Uknown Verified 11/26/21 08:19 [From Trelegy Ellipta] Sulindac AdvReac Intermediate Nausea Uncoded 11/21/21 09:28 Home Medications Medication Instructions Recorded Confirmed Last Taken Type Bifidobacterium infantis 4 mg 4 mg PO DAILY 11/17/19 11/30/21 Unknown History capsule (Align) aspirin 81 mg tablet,delayed 81 mg PO DAILY 11/17/19 11/30/21 11/29/21 History release (Adult Aspirin Regimen) betamethasone dipropionate 0.05 % 1 applic topical DIRECTED 11/17/19 11/30/21 Unknown History topical cream cetirizine 10 mg tablet (Zyrtec) 5 mg PO DAILY PRN Allergy Symptoms 11/17/19 11/30/21 Unknown History cyclosporine 0.05 % eye drops in a 1 drp ophthalmic (eye) Q12H 11/17/19 11/30/21 Unknown History dropperette (Restasis) docusate sodium 100 mg capsule 100 mg PO BID 11/17/19 11/30/21 Unknown History (Colace) lorazepam 0.5 mg tablet 0.5 mg PO BEDTIME 11/17/19 11/30/21 01/14/20 06:00 History magnesium oxide 500 mg tablet 500 mg PO DAILY 11/17/19 11/30/21 Unknown History sucralfate 100 mg/mL oral PO 09/07/21 Unknown History suspension Exam Exam Date and Time: December 05, 2021 1328 Height,Weight and Vital Signs: Height 4 ft 11 in Weight 72.575 kg Pertinent Lab Results Pertinent Lab Results: Laboratory Tests 06/30/21 08/08/21 09/12/21 10:23 07:01 07:10 WBC 6.9 Hgb 13.3 Hct 40.2 Plt Count 332 Sodium 138 Potassium 3.6 Chloride 103 Carbon Dioxide 26 BUN 12 Creatinine 0.97 Narrative Narrative: EKG 05/2021 SR, nonspecific ST abnormality, rate 82, QTc 457ms ECHO 04/2020 Conclusions: - The left ventricular systolic function is normal.? The visually estimated ejection fraction is between 65-70%. ? - No obvious valvular pathology seen on this study.?? NM juan jose perf SPECT rest & str 2020 Impression: ? 1.? Myocardial perfusion imaging study shows likely normal myocardial perfusion. No definitive evidence of any ischemia or infarction. 2.? Gated LVEF is 72% during stress and 59% during rest. 3. Transient ischemic dilatation not present. ? EKG component of the test reported separately. Assessment and Plan Assessment Anesthesia Assessment: Chart Reviewed Final Anesthetic Review Family History of Problems with Anesthesia: No History of Problems with Anesthesia: No Documented by User: Thong Edwards MD 12/06/21 18:06 [facility] Past Medical History Medical History Anxiety Asthma CAD (coronary artery disease) Cervical radiculitis Chronic sinusitis COPD (chronic obstructive pulmonary disease) COVID-19 vaccine administered Depression Dizziness Edema Fusion of spine, cervical region GERD (gastroesophageal reflux disease) H/O gastroesophageal reflux (GERD) History of aneurysm History of deviated nasal septum History of panic attacks History of primary hyperparathyroidism History of trigger finger HLD (hyperlipidemia) HTN (hypertension) Medial epicondylitis of left elbow Migraine Non-toxic multinodular goiter FRANCESCA (obstructive sleep apnea) Osteoporosis PTSD (post-traumatic stress disorder) Pulmonary nodules Right groin pain Right inguinal hernia Trigger finger Umbilical pain Functional capacity: independent ambulation Family History Family History Father Liver cancer Psoriasis Cancer Mental health disorder Mother Cervical cancer Ovarian cancer Heart attack Substance use disorder Surgical History Surgical History H/O decompression of ulnar nerve History of appendectomy History of cardiac catheterization History of cholecystectomy History of esophagogastroduodenoscopy (EGD) History of eyelid surgery History of hernia repair History of hysterectomy History of lumpectomy of both breasts History of parathyroidectomy Hx of adenoidectomy Hx of cataract surgery Hx of colonoscopy Hx of eye surgery Hx of hand surgery Hx of right inguinal hernia repair Hx of shoulder surgery Hx of tonsillectomy S/P arthroscopic surgery of right knee S/P cubital tunnel release S/P repair of paraesophageal hernia Status post ablation of incompetent vein using laser Social History Social History Household Members: Children and None Housing: House Alcohol intake: current Alcohol intake frequency: does not drink Patient Tobacco Use Status: Former Tobacco user Quit Date: 1979 e-Cigarette/Vaping Use: Never Used Second Hand Smoke Exposure: No service: No Current occupational status: employed Cognitive needs: No Hearing needs: No Vision needs: No Meds Allergies Allergy/AdvReac Type Severity Reaction Status Date / Time Aikvven-DMK-KlL Reductase Allergy Severe JOINT PAIN Verified 11/26/21 08:19 Inhibitor [[id number] REDUCTASE INHIBITOR] amlodipine [AMLODIPINE] Allergy Intermediate PALIPITATIO Verified 11/26/21 08:19 NS baclofen [BACLOFEN] Allergy Intermediate LETHARGY Verified 11/26/21 08:19 Beta-Blockers Allergy Intermediate BRADYCARDIA Verified 11/26/21 08:19 (Beta-Adrenergic Bloc budesonide [From SYMBICORT] Allergy Intermediate HOARSENESS Verified 11/26/21 08:19 Chocolate Allergy Intermediate Itching Verified 11/26/21 08:19 ezetimibe [From ZETIA] Allergy Intermediate JOINT Verified 11/26/21 08:19 PAIN, ELEVATED CPK ibandronate sodium Allergy Intermediate CHEST PAIN Verified 11/26/21 08:19 [From BONIVA] latex [LATEX] Allergy Intermediate RASH-SENSIT Verified 11/26/21 08:19 IVITY lisinopril [LISINOPRIL] Allergy Intermediate COUGH, Verified 11/26/21 08:19 really bad cough, cough meloxicam [From MOBIC] Allergy Intermediate GI UPSET Verified 11/26/21 08:19 mometasone furoate Allergy Intermediate COUGH Verified 11/26/21 08:19 [From DULERA] Penicillins [PENICILLINS] Allergy Intermediate RASH Verified 11/26/21 08:19 pregabalin [From LYRICA] Allergy Intermediate RASH,BLURRED Verified 11/26/21 08:19 VISION raloxifene [From EVISTA] Allergy Intermediate GERD Verified 11/26/21 08:19 sertraline [From ZOLOFT] Allergy Intermediate SKIN Verified 11/26/21 08:19 CRAWLING spironolactone Allergy Intermediate RASH, ?? Verified 11/26/21 08:19 [SPIRONOLACTONE] psoriasis strawberry [STRAWBERRY] Allergy Intermediate ITCHING Verified 11/26/21 08:19 tiotropium Allergy Intermediate RAW THROAT Verified 11/26/21 08:19 [From SPIRIVA WITH HANDIHALER] adhesive [ADHESIVE] Allergy Unknown RASH Verified 11/26/21 08:19 Atrovent Allergy Unknown Unknown Verified 11/26/21 08:19 dexlansoprazole Allergy Unknown UNKNOWN Verified 11/26/21 08:19 [From DEXILANT] doxycycline [DOXYCYCLINE] Allergy Unknown SEVERE NOYOLA, Verified 11/26/21 08:19 HEARTBURN Doxycycline Hyclate Allergy Unknown headache Verified 11/26/21 08:19 esomeprazole [Nexium] Allergy Unknown Unknown Verified 11/26/21 08:19 fluticasone Allergy Unknown HTN Verified 11/26/21 08:19 [From ADVAIR DISKUS] gabapentin [From NEURONTIN] Allergy Unknown THROAT Verified 11/26/21 08:19 TIGHTNESS glucosamine Allergy Unknown Unknown Verified 11/26/21 08:19 metoclopramide [From REGLAN] Allergy Unknown LETHARGY Verified 11/26/21 08:19 monosodium glutamate [MSG] Allergy Unknown HEADACHE Verified 11/26/21 08:19 naproxen [From ALEVE] Allergy Unknown FLUSH Verified 11/26/21 08:19 niacin Allergy Unknown Unknown Verified 11/26/21 08:19 omeprazole Allergy Unknown Unknown Verified 11/26/21 08:19 risedronate sodium Allergy Unknown UNKNOWN Verified 11/26/21 08:19 [From ACTONEL] rofecoxib [From Vioxx] Allergy Unknown ankle Verified 11/26/21 08:19 swelling salmeterol Allergy Unknown HTN Verified 11/26/21 08:19 [From ADVAIR DISKUS] scallops [SCALLOPS] Allergy Unknown NAUSEA & Verified 11/26/21 08:19 VOMITING tramadol [TRAMADOL] Allergy Unknown THROAT Verified 11/26/21 08:19 TIGHTNESS verapamil [VERAPAMIL] Allergy Unknown IRREGULAR Verified 11/26/21 08:19 HEARTBEAT lifitegrast [From Xiidra] Allergy blurred Verified 11/26/21 08:19 vision, headache, eye swelling fluticasone furoate AdvReac Unknown Uknown Verified 11/26/21 08:19 [From Trelegy Ellipta] umeclidinium AdvReac Unknown Uknown Verified 11/26/21 08:19 [From Trelegy Ellipta] vilanterol AdvReac Unknown Uknown Verified 11/26/21 08:19 [From Trelegy Ellipta] Sulindac AdvReac Intermediate Nausea Uncoded 11/21/21 09:28 Home Medications Medication Instructions Recorded Confirmed Last Taken Type Bifidobacterium infantis 4 mg 4 mg PO DAILY 11/17/19 11/30/21 Unknown History capsule (Align) aspirin 81 mg tablet,delayed 81 mg PO DAILY 11/17/19 11/30/21 11/29/21 History release (Adult Aspirin Regimen) betamethasone dipropionate 0.05 % 1 applic topical DIRECTED 11/17/19 11/30/21 Unknown History topical cream cetirizine 10 mg tablet (Zyrtec) 5 mg PO DAILY PRN Allergy Symptoms 11/17/19 11/30/21 Unknown History cyclosporine 0.05 % eye drops in a 1 drp ophthalmic (eye) Q12H 11/17/19 11/30/21 Unknown History dropperette (Restasis) docusate sodium 100 mg capsule 100 mg PO BID 11/17/19 11/30/21 Unknown History (Colace) lorazepam 0.5 mg tablet 0.5 mg PO BEDTIME 11/17/19 11/30/21 01/14/20 06:00 History magnesium oxide 500 mg tablet 500 mg PO DAILY 11/17/19 11/30/21 Unknown History sucralfate 100 mg/mL oral PO 09/07/21 Unknown History suspension Exam Airway Mallampati Class: II TM Dist: >3cm Neck ROM: Full Loose/Missing/Broken Teeth: Yes Heart: S1,S2 Lungs: b/l breath sounds Assessment and Plan Assessment Anesthesia Assessment: Anesthesia Plan Discussed Final Anesthetic Review NPO: Yes ASA Class: III Final Preanesthetic Review: Meds/Allgs Chart Reviewed, Consent Obtained/Reviewed and Anes Risks/Benef Reviewed Patient Risk: Intermediate Procedure Risk: Intermediate Anesthetic Plan Anesthetic Plan: MAC: Disposition: Standard PACU
[2021-12-06 08:32] VITALS: BP 154/88; PULSE 83; RESP 16; TEMP 36.1; O2SAT 99
--- NOTE | 2021-12-06 08:33 | MHC.SHP ---
Pre-Procedural Eval Section A Date of Service: 12/06/21 Section B Chief Complaint: reflux,change in bowel habits Relevant Family History (Specify if Yes): No Relevant Social History: None Present Medications: see Short Stay Collaborative assessment Medical History: Significant History (Anxiety Asthma CAD (coronary artery disease) Cervical radiculitis Chronic sinusitis COPD (chronic obstructive pulmonary disease) COVID-19 vaccine administered Depression Dizziness Edema Fusion of spine, cervical region GERD (gastroesophageal reflux disease) H/O gastroesophageal reflux (GERD) History) History of Previous Operations: Relevant previous surgery/procedure and date(s) (H/O decompression of ulnar nerve History of appendectomy History of cardiac catheterization History of cholecystectomy History of esophagogastroduodenoscopy (EGD) History of eyelid surgery History of hernia repair History of hysterectomy History of lumpectomy of both breasts History of parathyroidec) Allergies: Allergies Allergy/AdvReac Type Severity Reaction Status Date / Time Kkqmqor-MLK-SvT Reductase Allergy Severe JOINT PAIN Verified 11/26/21 08:19 Inhibitor [DVJKECE-CQI-CNJ REDUCTASE INHIBITOR] amlodipine [AMLODIPINE] Allergy Intermediate PALIPITATIO Verified 11/26/21 08:19 NS baclofen [BACLOFEN] Allergy Intermediate LETHARGY Verified 11/26/21 08:19 Beta-Blockers Allergy Intermediate BRADYCARDIA Verified 11/26/21 08:19 (Beta-Adrenergic Bloc budesonide [From SYMBICORT] Allergy Intermediate HOARSENESS Verified 11/26/21 08:19 Chocolate Allergy Intermediate Itching Verified 11/26/21 08:19 ezetimibe [From ZETIA] Allergy Intermediate JOINT Verified 11/26/21 08:19 PAIN, ELEVATED CPK ibandronate sodium Allergy Intermediate CHEST PAIN Verified 11/26/21 08:19 [From BONIVA] latex [LATEX] Allergy Intermediate RASH-SENSIT Verified 11/26/21 08:19 IVITY lisinopril [LISINOPRIL] Allergy Intermediate COUGH, Verified 11/26/21 08:19 really bad cough, cough meloxicam [From MOBIC] Allergy Intermediate GI UPSET Verified 11/26/21 08:19 mometasone furoate Allergy Intermediate COUGH Verified 11/26/21 08:19 [From DULERA] Penicillins [PENICILLINS] Allergy Intermediate RASH Verified 11/26/21 08:19 pregabalin [From LYRICA] Allergy Intermediate RASH,BLURRED Verified 11/26/21 08:19 VISION raloxifene [From EVISTA] Allergy Intermediate GERD Verified 11/26/21 08:19 sertraline [From ZOLOFT] Allergy Intermediate SKIN Verified 11/26/21 08:19 CRAWLING spironolactone Allergy Intermediate RASH, ?? Verified 11/26/21 08:19 [SPIRONOLACTONE] psoriasis strawberry [STRAWBERRY] Allergy Intermediate ITCHING Verified 11/26/21 08:19 tiotropium Allergy Intermediate RAW THROAT Verified 11/26/21 08:19 [From SPIRIVA WITH HANDIHALER] adhesive [ADHESIVE] Allergy Unknown RASH Verified 11/26/21 08:19 Atrovent Allergy Unknown Unknown Verified 11/26/21 08:19 dexlansoprazole Allergy Unknown UNKNOWN Verified 11/26/21 08:19 [From DEXILANT] doxycycline [DOXYCYCLINE] Allergy Unknown SEVERE NOYOLA, Verified 11/26/21 08:19 HEARTBURN Doxycycline Hyclate Allergy Unknown headache Verified 11/26/21 08:19 esomeprazole [Nexium] Allergy Unknown Unknown Verified 11/26/21 08:19 fluticasone Allergy Unknown HTN Verified 11/26/21 08:19 [From ADVAIR DISKUS] gabapentin [From NEURONTIN] Allergy Unknown THROAT Verified 11/26/21 08:19 TIGHTNESS glucosamine Allergy Unknown Unknown Verified 11/26/21 08:19 metoclopramide [From REGLAN] Allergy Unknown LETHARGY Verified 11/26/21 08:19 monosodium glutamate [MSG] Allergy Unknown HEADACHE Verified 11/26/21 08:19 naproxen [From ALEVE] Allergy Unknown FLUSH Verified 11/26/21 08:19 niacin Allergy Unknown Unknown Verified 11/26/21 08:19 omeprazole Allergy Unknown Unknown Verified 11/26/21 08:19 risedronate sodium Allergy Unknown UNKNOWN Verified 11/26/21 08:19 [From ACTONEL] rofecoxib [From Vioxx] Allergy Unknown ankle Verified 11/26/21 08:19 swelling salmeterol Allergy Unknown HTN Verified 11/26/21 08:19 [From ADVAIR DISKUS] scallops [SCALLOPS] Allergy Unknown NAUSEA & Verified 11/26/21 08:19 VOMITING tramadol [TRAMADOL] Allergy Unknown THROAT Verified 11/26/21 08:19 TIGHTNESS verapamil [VERAPAMIL] Allergy Unknown IRREGULAR Verified 11/26/21 08:19 HEARTBEAT lifitegrast [From Xiidra] Allergy blurred Verified 11/26/21 08:19 vision, headache, eye swelling fluticasone furoate AdvReac Unknown Uknown Verified 11/26/21 08:19 [From Trelegy Ellipta] umeclidinium AdvReac Unknown Uknown Verified 11/26/21 08:19 [From Trelegy Ellipta] vilanterol AdvReac Unknown Uknown Verified 11/26/21 08:19 [From Trelegy Ellipta] Sulindac AdvReac Intermediate Nausea Uncoded 11/21/21 09:28 Review of Systems Sugical H&P ROS: Negative: Constitution, Cardiovascular, Respiratory, Neurological, Psychiatric, Hem-Onc, Allergic/Immunologic, Gastrointestinal, Genitourinary, Musculoskeletal, Integumentary, Endocrine and Eyes/Ears/Nose/Throat Exam Surgical H&P Exam: Normal: HEENT, Normal: Heart, Normal: Lungs, Normal: Extremities, Normal: Abdomen, Normal: Skin and Normal: Neurological Plan Diagnosis/Plan: Unchanged I have reviewed the history and physical and performed a pertinent physical examination on my patient. No changes have occurred unless specified.
[2021-12-06] MEDS: Lactated Ringers 1,000 ML 100 ML IVCONT (08:42)
--- NOTE | 2021-12-06 09:57 | P.OP_ITS ---
Operative Note Operative Note Date of Service: 12/06/21 Narrative: Operative Information Procedure Description: EGD, Colonoscopy Indication: GERD, altered bowel habits Anesthesia: MAC FLEXIBLE TRANSORAL UPPER GASTROINTESTINAL ENDOSCOPY AND COLONOSCOPY PROCEDURE NOTE UPPER ENDOSCOPY Consent: Indications for the procedure and potential complications of bleeding, perforation, reaction to medications and missed diagnosis were discussed with the patient and informed consent was obtained. Instrument: Olympus GIF H 190 J mid size upper endoscope Monitoring: Vital signs and clinical assessment, continuous EKG monitoring, Pulse oximetry, Carbon Dioxide monitoring and blood pressure monitoring were done throughout the procedure. Procedure: The patient was placed in the left lateral decubitis position and pre-procedure medications were administered and a bite block was placed. The endoscope was inserted into the mouth and advanced under direct vision to the third part of duodenum. A careful inspection was made as the upper endoscope was withdrawn including a retroflexed examination of the proximal stomach; Findings and interventions are described below. Findings: Larynx:normal Esophagus: GE junction at 34 cm, diaphragm hiatus at 34 cm, bx taken from GEJ, distal and proximal esophagus. LES slightly patulous. Stomach: Mild erythema. Biopsies were obtained. Grade 2 flap valve on retroflexed examination of the cardia. Duodenum: Normal bulb and descending duodenum, Intervention: Biopsies as noted above COLONOSCOPY Instrument: Olympus variable stiffness pediatric scope 190L Colonoscopy Monitoring: Vital signs and clinical assessment, continuous EKG monitoring, Pulse oximetry, Carbon Dioxide monitoring and blood pressure monitoring were done throughout the procedure. Colon withdrawal time was 8 minutes. Procedure: The patient was placed in the left lateral decubitis position and pre-procedure medications were administered. After a digital rectal examination of the ano-rectum, the video colonoscope was inserted into the rectum and advanced through the colon to the cecum/TI. The colonoscope was slowly withdrawn in a retrograde panoramic fashion and the colon mucosa was carefully examined including a retroflexed view of the rectum. Findings and interventions are described below. Procedure Difficulty:moderate due to tight sigmoid colon Findings: Terminal Ileum- few erosions noted, bx taken random right and left sided colon bx taken Cecum:normal Ascending Colon: normal Transverse Colon -normal Descending Colon:normal Sigmoid Colon: severe diverticulosis with tight lumen and mucosal hypertrophy Rectum: Retroflexion with small internal hemorrhoids, grade I Anorectum - normal Colon preparation: [place] Bowel Preparation Scale Right colon; 3 Transverse colon: 3 Left colon; 3 (0 = Unprepared colon segment with mucosa not seen due to solid stool that cannot be cleared. 1 = Portion of mucosa of the colon segment seen, but other areas of the colon segment not well seen due to staining, residual stool and/or opaque liquid. 2 = Minor amount of residual staining, small fragments of stool and/or opaque liquid, but mucosa of colon segment seen well. 3 = Entire mucosa of colon segment seen well with no residual staining, small fragments of stool or opaque liquid) Impression and Post Procedure Diagnosis: Endoscopy Findings: slightly lax LES gastritis Colonoscopy Findings internal hemorrhoids diverticular disease erosive ileitis Plan: Await Pathology results Repeat Colonoscopy in 10 years or earlier if clinically indicated High fiber diet leaflet avoid straining at stool, epsom salts and sitz bath, anusol supps or cream if bx negative and ongoing sx then consider capsule endoscopy Above findings were reviewed with the patient and relevant handouts were provided if indicated.
[2021-12-06 10:05] VITALS: BP 119/62; PULSE 84; RESP 12; TEMP 36.1; O2SAT 97
[2021-12-06 10:20] VITALS: BP 122/70; PULSE 72; RESP 18; TEMP 36.2; O2SAT 100
== END 2021-12-06 10:56 | disposition home or self-care (01) ==
PROVIDERS: PCP Nurse Practitioner Family; Visit Provider Internal Medicine Gastroenterology
PROC: (CPT 45380; principal; 2021-12-06 09:00)
DX: R19.4 Change in bowel habit (principal); K57.30 Diverticulosis of large intestine without perforation or abscess without bleeding; K52.89 Other specified noninfective gastroenteritis and colitis; K64.0 First degree hemorrhoids; K21.9 Gastro-esophageal reflux disease without esophagitis; K29.50 Unspecified chronic gastritis without bleeding; K44.9 Diaphragmatic hernia without obstruction or gangrene; J44.9 Chronic obstructive pulmonary disease, unspecified; I25.10 Atherosclerotic heart disease of native coronary artery without angina pectoris; I10 Essential (primary) hypertension; R60.9 Edema, unspecified; R42 Dizziness and giddiness; F41.1 Generalized anxiety disorder; Z79.82 Long term (current) use of aspirin; Z79.1 Long term (current) use of non-steroidal anti-inflammatories (NSAID); Z79.899 Other long term (current) drug therapy; Z88.0 Allergy status to penicillin; Z88.8 Allergy status to other drugs, medicaments and biological substances; Z91.040 Latex allergy status; Z87.891 Personal history of nicotine dependence
CPT/HCPCS: 45380; 43239; 88305; 88342

== ENCOUNTER → 2021-12-11 12:38 | Outpatient (BNVA) | payer MEDICARE, MEDICAID, SELFPAY | PROVIDERS: PCP Nurse Practitioner Family; Visit Provider Internal Medicine Endocrinology, Diabetes & Metabolism | DX: M81.0 Age-related osteoporosis without current pathological fracture (principal) | CPT/HCPCS: 96372; J3111 ==

== ENCOUNTER → 2021-12-14 08:55 | Outpatient (BNVA) | payer MEDICARE, MEDICAID, SELFPAY | PROVIDERS: PCP Nurse Practitioner Family; Visit Provider Internal Medicine Gastroenterology | DX: R10.32 Left lower quadrant pain (principal) | CPT/HCPCS: 99212 ==

== ENCOUNTER 2022-01-09 06:29 | Outpatient (REF) | payer MEDICARE, MEDICAID, SELFPAY ==
[2022-01-09 11:02] LABS: MANUAL DIFF FLAG NO
[2022-01-09 11:13] LABS: Basophils Absolute Auto 0.1 X10*3/uL (0.0-0.2); Basophils Percent Auto 1.4 % (0-2); Eosinophils Absolute Auto 0.2 X10*3/uL (0.0-0.4); Eosinophils Percent Auto 2.5 % (0-4); Hematocrit 41.3 % (37.0-47.0); Hemoglobin 13.5 g/dl (12.0-16.0); Imm Gran Abs Auto 0.02 X10*3/uL (0.00-0.03); Imm Gran Pct Auto 0.3 % (0.0-0.4); Lymphocytes Absolute Auto 1.7 X10*3/uL (1.2-4.9); Mean Corpuscular HGB Conc 32.7 g/dl (31.0-35.0); Mean Corpuscular Hemoglobin 29.7 pg (27.0-33.0); Mean Corpuscular Volume 90.8 fL (80.0-98.0); Mean Platelet Volume 10.9 fL (9.4-12.3); Monocytes Absolute Auto 0.4 X10*3/uL (0.1-1.2); Monocytes Percent Auto 6.2 % (2-11); Neutrophils Absolute Auto 4.5 x10*3/uL (2.0-8.3); Neutrophils Percent Auto 64.6 % (45-73); Platelet Count 328 X10*3/uL (160-400); Red Blood Count 4.55 X10*6/uL (4.20-5.50); Red Cell Distribution Width 12.5 % (11.0-16.0); White Blood Count 6.9 X10*3/uL (4.8-10.8)
[2022-01-09 11:18] LABS: Appearance Urine Clear; Color Urine Yellow; Glucose Urine UA Negative (Negative); Leukocyte Esterase Urine Negative (Negative); Nitrite Urine Negative (Negative); Specific Gravity - Urine 1.015 (1.005-1.025); Urine Blood Negative (Negative); Urine Ketones Negative (Negative); Urine Protein Negative (Neg-Trace)
[2022-01-09 11:22] LABS: Bacteria Urine None Seen (None Seen); Hyaline Casts Urine 0-2 /LPF (0-2); RBC Urine 0-2 /HPF (0-2); Squamous Epithelial Cell Urine 0-2 /HPF (0-2); WBC Urine 0-5 /HPF (0-5)
[2022-01-09 11:44] LABS: Alanine Aminotransferase 11 U/L (0-31); Alkaline Phosphatase 124 U/L (39-117); Anion Gap 13 (12-20); Aspartate Amino Transferase 15 U/L (5-31); Bilirubin Total 0.7 mg/dL (0.0-1.0); Blood Urea Nitrogen 14 mg/dL (9-16); Calcium 8.5 mg/dL (8.4-10.2); Carbon Dioxide 29 mmol/L (22-29); Chloride 105 mmol/L (96-108); Cholesterol 163 mg/dL; Estimated Glomerular Filt Rate > 60; Glucose Fasting 90 mg/dL (60-99); HDL Cholesterol 46 mg/dL; LDL Cholesterol Calculated 96 mg/dl; Potassium 4.1 mmol/L (3.3-5.1); Sodium 143 mmol/L (135-145); Total Protein 6.6 g/dL (6.5-8.0); Triglycerides 106 mg/dL
== END 2022-01-09 06:30 | disposition home or self-care (01) ==
LOC: HO.HMGCLDS 06:29
PROVIDERS: PCP Nurse Practitioner Family; Visit Provider Nurse Practitioner Family
DX: R74.8 Abnormal levels of other serum enzymes (principal); R31.29 Other microscopic hematuria
CPT/HCPCS: 36415; 80053; 80061; 81001; 81003; 84443; 85025

== ENCOUNTER 2022-01-11 08:32 | Outpatient (REF) | payer MEDICARE, MEDICAID, SELFPAY ==
[2022-01-11 12:10] LABS: Vitamin D 25-OH Total 59.1 ng/mL (>30)
== END 2022-01-11 08:33 | disposition home or self-care (01) ==
LOC: HO.10HDL 08:32
PROVIDERS: Visit Provider Internal Medicine Endocrinology, Diabetes & Metabolism
DX: M81.8 Other osteoporosis without current pathological fracture (principal)
CPT/HCPCS: 36415; 82306; 96372; J3111

== ENCOUNTER → 2022-01-16 12:40 | Outpatient (BNVA) | payer MEDICARE, MEDICAID, SELFPAY | PROVIDERS: PCP Nurse Practitioner Family; Referring Provider Nurse Practitioner Family; Visit Provider Nurse Practitioner Family | DX: I25.10 Atherosclerotic heart disease of native coronary artery without angina pectoris (principal); R06.00 Dyspnea, unspecified; R06.02 Shortness of breath; E78.5 Hyperlipidemia, unspecified; R07.89 Other chest pain; R00.2 Palpitations | CPT/HCPCS: 93005; 99212 ==

== ENCOUNTER → 2022-02-12 12:52 | Outpatient (BNVA) | payer MEDICARE, MEDICAID, SELFPAY | PROVIDERS: PCP Nurse Practitioner Family; Visit Provider Internal Medicine Endocrinology, Diabetes & Metabolism | DX: Z13.89 Encounter for screening for other disorder (principal) ==

== ENCOUNTER 2022-03-08 07:26 | Outpatient (REF) | payer MEDICARE, MEDICAID, SELFPAY ==
--- NOTE | ~2022-03-08 | MM_ITS ---
EXAMINATION: BONE DENSITOMETRY CLINICAL INDICATION: Osteoporosis. COMPARISON: Baseline BD dated 02/18/2020. TECHNIQUE: Using a aaTag DXA System (software version: 13.1) manufactured by [employer], dual-energy x-ray absorptiometry was performed of the lumbar spine and left hip. The images are of good technical quality. Summary results are attached. FINDINGS: AP SPINE L1-L2 (excluding L3 and L4): The data of L1-L4 has been changed to exclude the L3 and L4 vertebral bodies, because degenerative changes at these levels may cause overestimation of lumbar spine density. Current: BMD 0.926 g/cm2, Z-score -0.5, T-score -2.0, osteopenia, 16.0% increase from baseline (<5% change is not significant). Baseline: BMD 0.798 g/cm2. LEFT FEMUR, NECK: Current: BMD 0.659 g/cm2, Z-score -1.1, T-score -2.7, osteoporosis. Baseline: BMD 0.534 g/cm2. LEFT FEMUR, TOTAL: Current: BMD 0.711 g/cm2, Z-score -0.9, T-score -2.4, osteopenia, 13.6% increase from baseline (<5% change is not significant). Baseline: BMD 0.626 g/cm2. IDENTIFIED RISK FACTORS: Early menopause, height loss, hysterectomy, bilateral oophorectomy, history of fracture (adult), osteoporosis, secondary osteoporosis, thiazide. HISTORY OF FRACTURE: Elbow. MEDICATIONS: Calcium, vitamin D, Prolia. MM/XR DEXA axial skeleton IMPRESSION: 1. DIAGNOSIS: Osteoporosis based on the lowest T-score value of -2.7 in the femoral neck applying World Health Organization criteria. 2. 10-YEAR FRACTURE RISK PREDICTION, FRAX: According to the guidelines, FRAX calculation should only be performed on patients in the osteopenia bone density category. Therefore, FRAX was not performed on this patient. 3. Treatment Recommendations: NOF guidelines recommend consideration for treatment in postmenopausal women and men age 50 and older presenting with the following: -A hip or vertebral (clinical or morphometric) fracture. -T-score less than or equal to -2.5 at the femoral neck or spine after appropriate evaluation to exclude secondary causes. -Low bone mass at the hip or spine and a 10-year fracture probability by FRAX of greater than or equal to 3% for hip fracture or greater than or equal to 20% for major osteoporotic fracture based on the [place] adapted WHO algorithm. 4. Other Recommendations: All treatment decisions require clinical judgment and consideration of individual patient factors, including patient preferences, comorbidities, previous drug use, risk factors not captured in the FRAX model (e.g. frailty, falls, vitamin D deficiency, increased bone turnover, interval significant decline in bone density) and possible under or overestimation of fracture risk by FRAX. Additional medical evaluation for secondary cause of low bone mineral density may be appropriate. FUTURE SCAN RECOMMENDATION: People with diagnosed cases of osteoporosis or at high risk for fracture should have regular bone mineral density tests. For patients eligible for Medicare, routine testing is allowed once every 2 years. The testing frequency can be increased to one year for patients who have rapidly progressing disease, those who are receiving or discontinuing medical therapy to restore bone mass, or have additional risk factors.
--- NOTE | ~2022-03-08 | MM_ITS ---
EXAMINATION: MM SCREENING DIGITAL BREAST TOMOSYNTHESIS, BILATERAL CLINICAL INFORMATION: Screening. Asymptomatic. The lifetime risk of breast cancer based on the Tyrer-Cuzick Model is 2%. COMPARISON: Mammography: 02/23/2021, 02/18/2020, 02/04/2019 TECHNIQUE: Digital breast tomosynthesis is performed in both the craniocaudal and mediolateral oblique views along with computer-aided detection (CAD). Synthesized 2D images are generated from the tomosynthesis. FINDINGS: There are scattered areas of fibroglandular density (ACR BI-RADS breast composition Category b). There are no significant masses, abnormal calcifications, or other abnormalities. Parenchymal pattern is similar to prior studies. The axilla and skin contours are unremarkable. MM/MM tomosynthesis screening BI IMPRESSION: No mammographic evidence of malignancy. ASSESSMENT: BI-RADS 1: Negative RECOMMENDATION: Routine annual mammography screening. This patient's information was entered into a reminder system with a target due date for their next mammogram.
== END 2022-03-08 07:27 | disposition home or self-care (01) ==
LOC: HO.MAMMO 07:26
PROVIDERS: PCP Nurse Practitioner Family; Visit Provider Internal Medicine Endocrinology, Diabetes & Metabolism
DX: Z12.31 Encounter for screening mammogram for malignant neoplasm of breast (principal); Z13.820 Encounter for screening for osteoporosis; M81.8 Other osteoporosis without current pathological fracture; Z78.0 Asymptomatic menopausal state
CPT/HCPCS: 77063; 77067; 77080

== ENCOUNTER → 2022-03-15 07:50 | Outpatient (BNVA) | payer MEDICARE, MEDICAID, SELFPAY | PROVIDERS: PCP Nurse Practitioner Family; Visit Provider Internal Medicine Endocrinology, Diabetes & Metabolism | DX: M81.0 Age-related osteoporosis without current pathological fracture (principal); E04.2 Nontoxic multinodular goiter; Z79.899 Other long term (current) drug therapy | CPT/HCPCS: 96372; 99212; J3111 ==

== ENCOUNTER 2022-03-22 08:52 | Outpatient (REF) | payer MEDICARE, MEDICAID, SELFPAY ==
--- NOTE | ~2022-03-22 | US_ITS ---
EXAMINATION: US THYROID CLINICAL INFORMATION: Nontoxic multinodular goiter. COMPARISON: Ultrasound soft tissue head/neck thyroid dated 06/06/2020 and 12/19/2017. TECHNIQUE: Linear transducer grayscale and color Doppler examination with attention to the region of the thyroid. FINDINGS: SIZE: Measurements of the thyroid lobes and nodules are given in sagittal, anteroposterior and transverse dimensions respectively. Right Thyroid Lobe: 3.4 x 1.1 x 1.4 cm, volume 2.8 mL. Previously 3.6 x 1.2 x 1.6 cm, volume 2.9 mL. Parenchyma: The gland echotexture is homogeneous. Thyroid vascularity is normal. Left Thyroid Lobe: 3.6 x 1.0 x 1.3 cm, volume 2.5 mL. Previously 3.3 x 1.1 x 1.2 cm, volume 2.8 mL. Parenchyma: The gland echotexture is homogeneous. Thyroid vascularity is normal. Isthmus: 0.2 cm in maximum AP dimension. Previously 0.3 cm. Estimated total number of nodules greater than or equal to 1 cm: 0. Chromosomal Disorders Counselor nodules are described as follows: 1. Location: Right superior. Size: 0.4 x 0.3 x 0.3 cm, volume 0.02 mL. Previously: 0.3 x 0.3 x 0.4 cm, volume 0.02 mL. Nodule characteristics: Composition: Cystic(0). ACR TI-RADS total points: 0 Previous: 0 ACR TI-RADS category: 1 Previous: 1 2. Location: Right inferior. Size: 0.6 x 0.3 x 0.5 cm, volume 0.05 mL. Previously: 0.6 x 0.3 x 0.5 cm, volume 0.05 mL. Nodule characteristics: Composition: Mixed cystic and solid (1). Echogenicity: Hypoechoic (2). Shape: Not taller than wide (0). Margins: Smooth (0). Echogenic Foci: None (0). ACR TI-RADS total points: 3 Previous: 3 ACR TI-RADS category: 3 Previous: 3 3. Location: Left mid. Size: 0.1 x 0.1 x 0.2 cm, volume 0.002 mL. Previously: 0.6 x 0.4 x 0.4 cm, volume 0.05 mL. Nodule characteristics: Composition: Cystic(0). ACR TI-RADS total points: 0 Previous: 0 ACR TI-RADS category: 1 Previous: 1 4. Location: Left inferior. Size: 0.6 x 0.5 x 0.6 cm, volume 0.10 mL. Previously: 1.1 x 0.6 x 0.7 cm, volume 0.24 mL. Nodule characteristics: Composition: Solid (2). Echogenicity: Hypoechoic (2). Shape: Not taller than wide (0). Margins: Smooth (0). Echogenic Foci: None (0). ACR TI-RADS total points: 4 Previous: 3 ACR TI-RADS category: 4 Previous: 3 NODES: No lymphadenopathy is seen in the tissue surrounding the thyroid gland. US/US thyroid IMPRESSION: Bilateral nodules do not meet ACR criteria for follow-up.. ACR TI-RADS RECOMMENDATION REFERENCE: Ultrasound-guided fine-needle aspiration, followup ultrasound, no further follow up. * TR1 (0 point) and TR2 (2 points): No FNA or follow up * TR3 (3 points): FNA if more than or equal to 2.5 cm in maximum dimension, followup ultrasound in 1, 3 and 5 years if 1.5 to 2.4 cm in maximum dimension. * TR4 (4-6 points): FNA if more than or equal to 1.5 cm in maximum dimension, followup ultrasound in 1, 2, 3 and 5 years if 1 to 1.4 cm in maximum dimension. * TR5 (more than or equal to 7 points): FNA if more than or equal to 1 cm in maximum dimension, followup ultrasound every year for 5 years if 0.5 to 0.9 cm in maximum dimension. * TR3, TR4 or TR5 nodules that are below the size threshold for follow up receive no follow up.
== END 2022-03-22 08:53 | disposition home or self-care (01) ==
LOC: HO.HMGCX 08:52
PROVIDERS: PCP Nurse Practitioner Family; Visit Provider Internal Medicine Endocrinology, Diabetes & Metabolism
DX: E04.2 Nontoxic multinodular goiter (principal); M53.3 Sacrococcygeal disorders, not elsewhere classified; G89.29 Other chronic pain
CPT/HCPCS: 76536; 99212

== ENCOUNTER → 2022-04-16 11:35 | Outpatient (BNVA) | payer MEDICARE, MEDICAID, SELFPAY | PROVIDERS: PCP Nurse Practitioner Family; Visit Provider Internal Medicine Endocrinology, Diabetes & Metabolism | DX: M81.0 Age-related osteoporosis without current pathological fracture (principal) | CPT/HCPCS: 96372; J3111 ==

== ENCOUNTER 2022-04-17 06:40 | Outpatient (REF) | payer MEDICARE, MEDICAID, SELFPAY ==
--- NOTE | ~2022-04-17 | FL_ITS ---
EXAMINATION: XR FLUOROSCOPY WITH IMAGES CLINICAL INFORMATION: Pain in right hip. COMPARISON: None. TECHNIQUE: Fluoroscopy Supervised By: Christie Thompson. Fluoroscopy Time: 0.5 minutes. Cumulative Dose: 9.90 mGy. DAP: 0.964 Gy-cm2. Images: 1. FINDINGS: There are 3 digital images obtained revealing needle positioned posterior to bilateral SI joints. No contrast is seen. Visualized sacral views are unremarkable. FL/FL guidance in treatment room IMPRESSION: Fluoroscopy guidance was provided to referrer for pain management.
--- NOTE | ~2022-04-17 | FL_ITS ---
EXAMINATION: XR FLUOROSCOPY WITH IMAGES CLINICAL INFORMATION: Right hip pain. COMPARISON: None. TECHNIQUE: Fluoroscopy Supervised By: Christie Thompson NP. Fluoroscopy Time: 0.5. Cumulative Dose: 9.9 mGy. DAP: 0.964 Gy-cm2. Images: 1. FINDINGS: There is single image of the right hip revealing needle positioned adjacent and inferior to the right greater trochanter with contrast opacifying the small bursa. Visualized right greater trochanter is otherwise unremarkable. FL/FL guidance in treatment room IMPRESSION: Fluoroscopy was provided to referrer for pain management.
== END 2022-04-17 06:41 | disposition home or self-care (01) ==
LOC: CF 06:40
PROVIDERS: Visit Provider Internal Medicine
DX: M53.3 Sacrococcygeal disorders, not elsewhere classified (principal); M25.551 Pain in right hip
CPT/HCPCS: 20610; 27096; J1040; J2795; Q9965

== ENCOUNTER → 2022-04-24 08:22 | Outpatient (BNVA) | payer MEDICARE, MEDICAID, SELFPAY | PROVIDERS: PCP Nurse Practitioner Family; Visit Provider Hospitalist | DX: R06.00 Dyspnea, unspecified (principal); J45.909 Unspecified asthma, uncomplicated; J01.90 Acute sinusitis, unspecified; K21.9 Gastro-esophageal reflux disease without esophagitis; K44.9 Diaphragmatic hernia without obstruction or gangrene; R91.8 Other nonspecific abnormal finding of lung field | CPT/HCPCS: 99212 ==

== ENCOUNTER → 2022-04-26 08:53 | Outpatient (BNVA) | payer MEDICARE, MEDICAID, SELFPAY | PROVIDERS: PCP Nurse Practitioner Family; Visit Provider Internal Medicine | DX: M25.559 Pain in unspecified hip (principal); M47.812 Spondylosis without myelopathy or radiculopathy, cervical region; M96.1 Postlaminectomy syndrome, not elsewhere classified | CPT/HCPCS: Q3014 ==

== ENCOUNTER → 2022-05-03 11:57 | Outpatient (BNVA) | payer MEDICARE, MEDICAID, SELFPAY | PROVIDERS: PCP Nurse Practitioner Family; Visit Provider Internal Medicine Gastroenterology | DX: K21.9 Gastro-esophageal reflux disease without esophagitis (principal); K57.90 Diverticulosis of intestine, part unspecified, without perforation or abscess without bleeding; K52.89 Other specified noninfective gastroenteritis and colitis | CPT/HCPCS: 99212 ==

== ENCOUNTER → 2022-05-06 13:07 | Outpatient (BNVA) | payer MEDICARE, MEDICAID, SELFPAY | PROVIDERS: PCP Nurse Practitioner Family; Referring Provider Nurse Practitioner Family; Visit Provider Internal Medicine Cardiovascular Disease | DX: I25.10 Atherosclerotic heart disease of native coronary artery without angina pectoris (principal); I49.3 Ventricular premature depolarization | CPT/HCPCS: 99212 ==

== ENCOUNTER 2022-05-08 10:01 | Outpatient (REF) | payer MEDICARE, MEDICAID, SELFPAY ==
--- NOTE | ~2022-05-08 | XR_ITS ---
EXAMINATION: XR ANKLE, RIGHT CLINICAL INFORMATION: Right ankle sprain COMPARISON: Right foot 07/28/2012 TECHNIQUE: AP, lateral, and mortise views of the right ankle. FINDINGS: The bones and soft tissues are normal. No fracture. Alignment is anatomic. Joint spaces are maintained. No joint effusion. XR/XR ankle RT min 3V IMPRESSION: Normal right ankle.
== END 2022-05-08 10:02 | disposition home or self-care (01) ==
LOC: HO.HMGCX 10:01
PROVIDERS: PCP Nurse Practitioner Family; Referring Provider Podiatrist; Visit Provider Internal Medicine
DX: S93.401A Sprain of unspecified ligament of right ankle, initial encounter (principal)
CPT/HCPCS: 73610

== ENCOUNTER → 2022-05-17 07:51 | Outpatient (BNVA) | payer MEDICARE, MEDICAID, SELFPAY | PROVIDERS: PCP Nurse Practitioner Family; Visit Provider Internal Medicine Endocrinology, Diabetes & Metabolism | DX: M81.0 Age-related osteoporosis without current pathological fracture (principal) | CPT/HCPCS: 96372; J3111 ==

== ENCOUNTER 2022-05-22 06:14 | Outpatient (REF) | payer MEDICARE, MEDICAID, SELFPAY ==
[2022-05-22 11:27] LABS: MANUAL DIFF FLAG NO
[2022-05-22 11:38] LABS: Appearance Urine Clear; Color Urine Yellow; Glucose Urine UA Negative (Negative); Leukocyte Esterase Urine Negative (Negative); Nitrite Urine Negative (Negative); PH 7.5 (5.0-9.0); Urine Blood Negative (Negative); Urine Ketones Negative (Negative); Urine Protein Negative (Neg-Trace)
[2022-05-22 11:41] LABS: Basophils Absolute Auto 0.1 X10*3/uL (0.0-0.2); Basophils Percent Auto 1.7 % (0-2); Eosinophils Absolute Auto 0.2 X10*3/uL (0.0-0.4); Eosinophils Percent Auto 2.6 % (0-4); Hematocrit 42.4 % (37.0-47.0); Hemoglobin 13.8 g/dl (12.0-16.0); Imm Gran Abs Auto 0.02 X10*3/uL (0.00-0.03); Imm Gran Pct Auto 0.3 % (0.0-0.4); Lymphocytes Absolute Auto 2.2 X10*3/uL (1.2-4.9); Lymphocytes Percent Auto 30.2 % (20-40); Mean Corpuscular HGB Conc 32.5 g/dl (31.0-35.0); Mean Corpuscular Hemoglobin 29.5 pg (27.0-33.0); Mean Corpuscular Volume 90.6 fL (80.0-98.0); Mean Platelet Volume 10.5 fL (9.4-12.3); Monocytes Absolute Auto 0.4 X10*3/uL (0.1-1.2); Monocytes Percent Auto 5.6 % (2-11); Neutrophils Absolute Auto 4.3 x10*3/uL (2.0-8.3); Neutrophils Percent Auto 59.6 % (45-73); Platelet Count 318 X10*3/uL (160-400); Red Blood Count 4.68 X10*6/uL (4.20-5.50); Red Cell Distribution Width 12.6 % (11.0-16.0); White Blood Count 7.2 X10*3/uL (4.8-10.8)
[2022-05-22 12:11] LABS: Alanine Aminotransferase 10 U/L (0-31); Albumin Level 3.9 g/dL (3.5-5.0); Alkaline Phosphatase 121 U/L (39-117); Anion Gap 11 (12-20); Aspartate Amino Transferase 16 U/L (5-31); Bilirubin Total 0.6 mg/dL (0.0-1.0); Blood Urea Nitrogen 16 mg/dL (9-16); Calcium 8.6 mg/dL (8.4-10.2); Carbon Dioxide 32 mmol/L (22-29); Chloride 103 mmol/L (96-108); Cholesterol 150 mg/dL; Estimated Glomerular Filt Rate > 60; Glucose Fasting 90 mg/dL (60-99); HDL Cholesterol 47 mg/dL; LDL Cholesterol Calculated 83 mg/dl; Potassium 4.2 mmol/L (3.3-5.1); Sodium 142 mmol/L (135-145); Total Protein 6.4 g/dL (6.5-8.0); Triglycerides 102 mg/dL
[2022-05-22 12:29] LABS: TSH reflex Free T4 1.92 uIU/mL (0.32-4.0)
[2022-05-23 12:53] LABS: CRP High Sensitivity 2.1 mg/L
== END 2022-05-22 06:15 | disposition home or self-care (01) ==
LOC: HO.HMGCLDS 06:14
PROVIDERS: Absent Provider Internal Medicine Cardiovascular Disease; PCP Nurse Practitioner Family; Visit Provider Nurse Practitioner Family
DX: I10 Essential (primary) hypertension (principal); I25.10 Atherosclerotic heart disease of native coronary artery without angina pectoris; E78.5 Hyperlipidemia, unspecified
CPT/HCPCS: 36415; 80053; 80061; 81003; 84443; 85025; 86141

== ENCOUNTER 2022-06-18 13:40 | Outpatient (REF) | payer MEDICARE, MEDICAID, SELFPAY ==
[2022-06-18 15:25] LABS: Anion Gap 11 (12-20); Blood Urea Nitrogen 14 mg/dL (9-16); Chloride 103 mmol/L (96-108); Estimated Glomerular Filt Rate > 60; Glucose Random 88 mg/dL (60-115); Potassium 4.1 mmol/L (3.3-5.1); Sodium 141 mmol/L (135-145)
[2022-06-18 15:32] LABS: Carbon Dioxide 31 mmol/L (22-29)
== END 2022-06-18 13:41 | disposition home or self-care (01) ==
LOC: HO.LAB 13:40
PROVIDERS: PCP Nurse Practitioner Family; Visit Provider Internal Medicine Endocrinology, Diabetes & Metabolism
DX: E04.2 Nontoxic multinodular goiter (principal); M81.0 Age-related osteoporosis without current pathological fracture
CPT/HCPCS: 36415; 80048; 99212

== ENCOUNTER → 2022-06-19 09:21 | Outpatient (BNVA) | payer MEDICARE, MEDICAID, SELFPAY | PROVIDERS: PCP Nurse Practitioner Family; Visit Provider Internal Medicine Endocrinology, Diabetes & Metabolism | DX: M81.0 Age-related osteoporosis without current pathological fracture (principal) | CPT/HCPCS: 96372 ==

== ENCOUNTER 2022-08-16 07:00 | Outpatient (RCR) | payer MEDICARE, MEDICAID, SELFPAY | END 2022-08-16 07:53 | disposition home or self-care (01) | LOC: HO.PTCHIC 07:00 | PROVIDERS: Visit Provider Physician Assistant | DX: M54.2 Cervicalgia (principal); M25.512 Pain in left shoulder | CPT/HCPCS: 97014; 97110; 97140; 97162 ==

== ENCOUNTER 2022-09-03 11:50 | Outpatient (AMB) | payer MEDICARE, MEDICAID, SELFPAY ==
--- NOTE | 2022-09-03 12:10 | AM.OFFWIN_ITS ---
Intake Vital Signs 09/03/22 12:16 Height 4 ft 11 in BP 136/72 Blood Pressure Location Lt brachial Position Sitting Pulse 79 Pulse Source Pulse Oximeter Temp 97 F Temp Source Temporal Artery Scan Pulse Oximetry (%) 100 Oxygen Delivery Method Room Air Intake Visit Reasons: Ep, Fall, right ankle and hand Intake Note: Pt is here c/o right ankle pain. Pt states she missed a few steps and fell hard Patient Tobacco Use Status: Former Tobacco user Quit Date: 1979 Allergies Evsldvw-XHJ-GdF Reductase Inhibitor [[id number] REDUCTASE INHIBITOR] Allergy (Severe, Verified 09/03/22 12:16) JOINT PAIN amlodipine [AMLODIPINE] Allergy (Intermediate, Verified 09/03/22 12:16) PALIPITATIONS baclofen [BACLOFEN] Allergy (Intermediate, Verified 09/03/22 12:16) LETHARGY Beta-Blockers (Beta-Adrenergic Bloc Allergy (Intermediate, Verified 09/03/22 12:16) BRADYCARDIA budesonide [From SYMBICORT] Allergy (Intermediate, Verified 09/03/22 12:16) HOARSENESS Chocolate Allergy (Intermediate, Verified 09/03/22 12:16) Itching ezetimibe [From ZETIA] Allergy (Intermediate, Verified 09/03/22 12:16) JOINT PAIN, ELEVATED CPK ibandronate sodium [From BONIVA] Allergy (Intermediate, Verified 09/03/22 12:16) CHEST PAIN latex [LATEX] Allergy (Intermediate, Verified 09/03/22 12:16) RASH-SENSITIVITY lisinopril [LISINOPRIL] Allergy (Intermediate, Verified 09/03/22 12:16) COUGH, really bad cough, cough meloxicam [From MOBIC] Allergy (Intermediate, Verified 09/03/22 12:16) GI UPSET mometasone furoate [From DULERA] Allergy (Intermediate, Verified 09/03/22 12:16) COUGH Penicillins [PENICILLINS] Allergy (Intermediate, Verified 09/03/22 12:16) RASH pregabalin [From LYRICA] Allergy (Intermediate, Verified 09/03/22 12:16) RASH,BLURRED VISION raloxifene [From EVISTA] Allergy (Intermediate, Verified 09/03/22 12:16) GERD sertraline [From ZOLOFT] Allergy (Intermediate, Verified 09/03/22 12:16) SKIN CRAWLING spironolactone [SPIRONOLACTONE] Allergy (Intermediate, Verified 09/03/22 12:16) RASH, ?? psoriasis strawberry [STRAWBERRY] Allergy (Intermediate, Verified 09/03/22 12:16) ITCHING tiotropium [From SPIRIVA WITH HANDIHALER] Allergy (Intermediate, Verified 09/03/22 12:16) RAW THROAT adhesive [ADHESIVE] Allergy (Unknown, Verified 09/03/22 12:16) RASH Atrovent Allergy (Unknown, Verified 09/03/22 12:16) Unknown dexlansoprazole [From DEXILANT] Allergy (Unknown, Verified 09/03/22 12:16) UNKNOWN doxycycline [DOXYCYCLINE] Allergy (Unknown, Verified 09/03/22 12:16) SEVERE NOYOLA, HEARTBURN Doxycycline Hyclate Allergy (Unknown, Verified 09/03/22 12:16) headache esomeprazole [Nexium] Allergy (Unknown, Verified 09/03/22 12:16) Unknown fluticasone [From ADVAIR DISKUS] Allergy (Unknown, Verified 09/03/22 12:16) HTN gabapentin [From NEURONTIN] Allergy (Unknown, Verified 09/03/22 12:16) THROAT TIGHTNESS glucosamine Allergy (Unknown, Verified 09/03/22 12:16) Unknown metoclopramide [From REGLAN] Allergy (Unknown, Verified 09/03/22 12:16) LETHARGY monosodium glutamate [MSG] Allergy (Unknown, Verified 09/03/22 12:16) HEADACHE naproxen [From ALEVE] Allergy (Unknown, Verified 09/03/22 12:16) FLUSH niacin Allergy (Unknown, Verified 09/03/22 12:16) Unknown omeprazole Allergy (Unknown, Verified 09/03/22 12:16) Unknown risedronate sodium [From ACTONEL] Allergy (Unknown, Verified 09/03/22 12:16) UNKNOWN rofecoxib [From Vioxx] Allergy (Unknown, Verified 09/03/22 12:16) ankle swelling salmeterol [From ADVAIR DISKUS] Allergy (Unknown, Verified 09/03/22 12:16) HTN scallops [SCALLOPS] Allergy (Unknown, Verified 09/03/22 12:16) NAUSEA & VOMITING tramadol [TRAMADOL] Allergy (Unknown, Verified 09/03/22 12:16) THROAT TIGHTNESS verapamil [VERAPAMIL] Allergy (Unknown, Verified 09/03/22 12:16) IRREGULAR HEARTBEAT lifitegrast [From Xiidra] Allergy (Verified 09/03/22 12:16) blurred vision, headache, eye swelling fluticasone furoate [From Trelegy Ellipta] Adverse Reaction (Unknown, Verified 09/03/22 12:16) Uknown umeclidinium [From Trelegy Ellipta] Adverse Reaction (Unknown, Verified 09/03/22 12:16) Uknown vilanterol [From Trelegy Ellipta] Adverse Reaction (Unknown, Verified 09/03/22 12:16) Uknown Sulindac Adverse Reaction (Intermediate, Uncoded 09/03/22 12:16) Nausea Do you need a note to return to daycare/school/sports/work: No HPI HPI Comments History of Present Illness Details 72-year-old female presents for injury sustained after falling down 3 steps this morning. She does not know if her it was her ankle or her knee that gave out, but states that she has right ankle pain and swelling, and a right thumb pain. She does have a bruise over the base of the thumb. She does not report hitting her head, or losing consciousness. She does not report any prodromal events prior to the fall. [facility] Medical History Anxiety Asthma CAD (coronary artery disease) Cervical radiculitis Chronic sinusitis COPD (chronic obstructive pulmonary disease) COVID-19 vaccine administered Depression Dizziness Edema Fusion of spine, cervical region GERD (gastroesophageal reflux disease) H/O gastroesophageal reflux (GERD) History of aneurysm History of deviated nasal septum History of panic attacks History of primary hyperparathyroidism History of trigger finger HLD (hyperlipidemia) HTN (hypertension) Medial epicondylitis of left elbow Migraine Non-toxic multinodular goiter FRANCESCA (obstructive sleep apnea) Osteoporosis PTSD (post-traumatic stress disorder) Pulmonary nodules Right groin pain Right inguinal hernia Trigger finger Umbilical pain Surgical History H/O decompression of ulnar nerve History of appendectomy History of cardiac catheterization History of cholecystectomy History of esophagogastroduodenoscopy (EGD) History of eyelid surgery History of hernia repair History of hysterectomy History of lumpectomy of both breasts History of parathyroidectomy Hx of adenoidectomy Hx of cataract surgery Hx of colonoscopy Hx of eye surgery Hx of hand surgery Hx of right inguinal hernia repair Hx of shoulder surgery Hx of tonsillectomy S/P arthroscopic surgery of right knee S/P cubital tunnel release S/P repair of paraesophageal hernia Status post ablation of incompetent vein using laser Family History Father Liver cancer Psoriasis Cancer Mental health disorder Mother Cervical cancer Ovarian cancer Heart attack Substance use disorder Social History Household Members: Children and None Housing: House Alcohol intake: current Alcohol intake frequency: does not drink Patient Tobacco Use Status: Former Tobacco user Quit Date: 1979 e-Cigarette/Vaping Use: Never Used Second Hand Smoke Exposure: No service: No Current occupational status: employed Cognitive needs: No Hearing needs: No Vision needs: No Review of Systems Const Details: Constitutional: No Fever, No Chills Cardiovascular: No Chest Pain, No SOB Respiratory: No Cough, No Dyspnea Gastrointestinal: No Nausea, No Vomiting, No Diarrhea, No abdominal Pain Genitourinary: No Dysuria, No Hematuria Musculoskeletal: positive right ankle and right hand pain, No Myalgias, No Joint Swelling Skin: No Skin lacerations, No rash, positive bruising to the right ankle and the right thumb Neuro: No Weakness, No Numbness, No Paresthesias, No Loss of Consciousness, No Dizziness, No Headache All systems reviewed & are unremarkable except as noted in HPI and below Physical Exam Vital Signs: Last Vital Signs Temp 97 F 09/03/22 12:16 Pulse 79 09/03/22 12:16 BP 136/72 09/03/22 12:16 Pulse Ox 100 09/03/22 12:16 Oxygen Delivery Method Room Air 09/03/22 12:16 Appearance: Alert. Oriented X3. No acute distress. Eyes: Pupils equal, round and reactive to light. Neck: Normal inspection. Neck supple. CVS: Normal heart rate and rhythm. Pulses normal. Respiratory: No respiratory distreAbdomen: Soft and nontender. Skin: Skin warm and dry. Normal skin color. Normal skin turgor. Extremities: Tenderness with swelling to the right lateral malleolar process, full flexion extension internal external rotation of the right ankle. No tenderness to the 5th meta tarsal joint. Bruising noted to the metacarpal joint on the left thumb. Full flexion extension and abduction wall of the thumb. No indication of tendon deficit. No snuffbox tenderness. Brisk capillary refill and equal pulses to all extremities. Neuro: No motor deficit. No sensory deficit. Gait well balanced well coordinated. Results AMB Urinalysis, Automated UA Leukoctes 0 Jason/uL Last Edit by Kaye Chaves, SADIA on 09/03/22 13:43 UA Nitrite Negative Last Edit by Kaye Chaves, OBSTETRICS TECHNICIAN on 09/03/22 13:43 UA Urobilinogen 0.2 mg/dL Last Edit by Kaye Chaves, OBSTETRICS TECHNICIAN on 09/03/22 13:43 UA Protein 0 mg/dL Last Edit by Kaye Chaves, OBSTETRICS TECHNICIAN on 09/03/22 13:43 UA pH 6.0 Last Edit by Kaye Chaves, OBSTETRICS TECHNICIAN on 09/03/22 13:43 UA Blood 25 Delfino/uL Last Edit by Kaye Chaves, OBSTETRICS TECHNICIAN on 09/03/22 13:43 UA Specific Blodgett 1.010 Last Edit by Kaye Chaves, OBSTETRICS TECHNICIAN on 09/03/22 13:4 3 UA Ketone Negative Last Edit by Kaye Chaves, SADIA on 09/03/22 13:43 UA Bilirubin 0 mg/dL Last Edit by Kaye Chaves, OBSTETRICS TECHNICIAN on 09/03/22 13:43 UA Glucose 0 mg/dL Last Edit by Kaye Chaves, OBSTETRICS TECHNICIAN on 09/03/22 13:43 Results Reviewed Results Reviewed: Laboratory Last Values Urine pH (Auto) 6.0 09/03/22 13:41 Specific Blodgett (Auto) 1.010 09/03/22 13:41 Urine Protein (Auto) 0 mg/dL 09/03/22 13:41 Glucose (UA)(Auto) 0 mg/dL 09/03/22 13:41 Urine Ketones (Auto) Negative 09/03/22 13:41 Urine Blood (Auto) 25 Delfino/uL 09/03/22 13:41 Urine Nitrite (Auto) Negative 09/03/22 13:41 Urine Bilirubin (Auto) 0 mg/dL 09/03/22 13:41 Urine Urobilinogen (Auto) 0.2 mg/dL 09/03/22 13:41 Leukocyte Esterase (Auto) 0 Jason/uL 09/03/22 13:41 Assessment & Plan Assessment & Plan (1) Fall (on) (from) other stairs and steps, initial encounter: Code(s): W10.8XXA - Fall (on) (from) other stairs and steps, initial encounter (2) Hand pain, right: Code(s): M79.641 - Pain in right hand (3) Ankle pain, right: Code(s): M25.571 - Pain in right ankle and joints of right foot Plan 72-year-old female presents for injury sustained from a fall that occurred this morning. States that she slipped down 3 stairs, and feels like it was maybe her ankle or her knee that gave out. She did support her fall with her right hand, has a bruise to the metacarpal of the thumb, does have full range of motion. She states that her ankle hurts the most, and has some swelling and bruising to the outside of the ankle. She did not hit her head, or lose consciousness. She does not report any prodromal events prior to fall. Patient is alert oriented x4, answering questions politely and appropriately, speaking in complete sentences. Cranial nerves 2-12 intact. Even unlabored respirations. Bruising to the right metacarpal thumb, full range of motion, brisk capillary refill, equal radial pulses bilaterally. No snuffbox tenderness. Right ankle tenderness to the lateral malleolar process, with bruising, and swelling. Full flexion extension, pain on internal rotation. Right knee nontender to palpation, no tendon laxity noted negative varus and valgus. Negative anterior- posterior drawer. Brisk capillary refill bilaterally with equal pulses. Will order x-rays of the hand, and the right ankle. Right ankle x-ray negative for acute findings. Pending radiology read. Plan of care is for walker boot, as this is her 2nd significant sprain since April. X- rays of the hands are negative for acute findings. Pending radiology read. Plan of care is for supportive measures with Tylenol, rest ice and elevation. Patient verbalized understanding of discharge instructions. Verbalized understandings of signs and symptoms indicating need for emergent intervention. Orders: Orders XR ankle RT min 3V Today M25.571 - Pain in right ankle and joints of right foot, M79.641 - Pain in right hand, W10.8XXA - Fall (on) (from) other stairs and steps , initial encounter XR hand RT min 3V Today M25.571 - Pain in right ankle and joints of right foot, M79.641 - Pain in right hand, W10.8XXA - Fall (on) (from) other stairs and steps, initial encounter AMB Urinalysis Automated Today Z13.9 - Encounter for screening, unspecified Referrals Physical Medicine and Rehabilitation Referral M25.571 - Pain in right ankle and joints of right foot Orthopedics Referral M25.571 - Pain in right ankle and joints of right foot Patient Instructions: You were evaluated for injury sustained from a fall. Your x-ray results are pending radiology read. Your x-ray of your right ankle does not show any obvious fractures. We are treating you with a walker boot as this is your 2nd grade 2 sprain in less than 3 months. Use walker boot for all ambulation. You may remove this boot to shower. Please follow-up with orthopedics. I have referred her to [facility]. Please request an appointment for evaluation for recurrent right ankle sprain. X-rays of your hand are negative for fracture Use Tylenol 650 mg every 6 hours as needed for pain management. Follow-up with physical therapy referral and orthopedic referral for for workup. Thank you for choosing this urgent care for evaluation. Please follow-up with primary care physician as needed. Return to the emergency department for any new, concerning, or worsening symptoms. Coding Level of Care Code Est Pt Level 3 (15495) Diagnoses Fall (on) (from) other stairs and steps, initial encounter W10.8XXA Hand pain, right M79.641 Ankle pain, right M25.571
[2022-09-03 12:16] VITALS: BP 136/72; PULSE 79; TEMP 36.1; O2SAT 100
== END 2022-09-03 14:09 | disposition home or self-care (01) ==
PROVIDERS: PCP Nurse Practitioner Family; Visit Provider Nurse Practitioner Family
DX: M79.641 Pain in right hand (principal); W10.8XXA Fall (on) (from) other stairs and steps, initial encounter; M25.571 Pain in right ankle and joints of right foot; Z13.9 Encounter for screening, unspecified
CPT/HCPCS: 81003; 99213

== ENCOUNTER 2022-09-03 13:36 | Outpatient (REF) | payer MEDICARE, MEDICAID, SELFPAY ==
--- NOTE | ~2022-09-03 | XR_ITS ---
EXAMINATION: XR ANKLE, RIGHT CLINICAL INFORMATION: Right ankle pain. COMPARISON: 05/08/2022 right ankle radiographs. TECHNIQUE: AP, lateral, and mortise views of the right ankle. FINDINGS: There is no acute fracture or dislocation. The joint spaces are unremarkable. The tarsal bones are normally aligned. Very small plantar calcaneal spur. The soft tissues are unremarkable. XR/XR ankle RT min 3V IMPRESSION: Unremarkable right ankle.
--- NOTE | ~2022-09-03 | XR_ITS ---
EXAMINATION: XR HAND, RIGHT CLINICAL INFORMATION: Status post fall. COMPARISON: None available. TECHNIQUE: PA, lateral, and oblique views of the right hand. FINDINGS: Mild to moderate first carpal metacarpal degenerative joint changes are seen. There is no acute fracture or dislocation. The carpal bones are normally aligned. The distal radius and ulna are intact. The soft tissues are unremarkable. XR/XR hand RT min 3V IMPRESSION: Mild to moderate first carpometacarpal degenerative joint changes most consistent with osteoarthritis. No acute fracture.
== END 2022-09-03 13:37 | disposition home or self-care (01) ==
LOC: HO.HMGCX 13:36
PROVIDERS: PCP Nurse Practitioner Family; Visit Provider Nurse Practitioner Family
DX: M25.571 Pain in right ankle and joints of right foot (principal); M79.641 Pain in right hand; W10.8XXA Fall (on) (from) other stairs and steps, initial encounter
CPT/HCPCS: 73130; 73610

== ENCOUNTER 2022-09-06 07:55 | Outpatient (AMB) | payer MEDICARE, MEDICAID, SELFPAY ==
--- NOTE | 2022-09-06 08:00 | MHC.OFFVIS ---
Intake Vital Signs 09/06/22 08:01 Height 4 ft 11 in Weight 158 lb BMI 31.9 BP 142/82 H Blood Pressure Location Lt brachial Position Sitting Respiration 14 Pulse 80 Pulse Source Pulse Oximeter Intake Visit Reasons: s/p Cervical RFA 07/17/22 & 07/31/22 Allergies Aatrmmr-VGG-AnJ Reductase Inhibitor [[id number] REDUCTASE INHIBITOR] Allergy (Severe, Verified 09/06/22 08:04) JOINT PAIN amlodipine [AMLODIPINE] Allergy (Intermediate, Verified 09/06/22 08:04) PALIPITATIONS baclofen [BACLOFEN] Allergy (Intermediate, Verified 09/06/22 08:04) LETHARGY Beta-Blockers (Beta-Adrenergic Bloc Allergy (Intermediate, Verified 09/06/22 08:04) BRADYCARDIA budesonide [From SYMBICORT] Allergy (Intermediate, Verified 09/06/22 08:04) HOARSENESS Chocolate Allergy (Intermediate, Verified 09/06/22 08:04) Itching ezetimibe [From ZETIA] Allergy (Intermediate, Verified 09/06/22 08:04) JOINT PAIN, ELEVATED CPK ibandronate sodium [From BONIVA] Allergy (Intermediate, Verified 09/06/22 08:04) CHEST PAIN latex [LATEX] Allergy (Intermediate, Verified 09/06/22 08:04) RASH-SENSITIVITY lisinopril [LISINOPRIL] Allergy (Intermediate, Verified 09/06/22 08:04) COUGH, really bad cough, cough meloxicam [From MOBIC] Allergy (Intermediate, Verified 09/06/22 08:04) GI UPSET mometasone furoate [From DULERA] Allergy (Intermediate, Verified 09/06/22 08:04) COUGH Penicillins [PENICILLINS] Allergy (Intermediate, Verified 09/06/22 08:04) RASH pregabalin [From LYRICA] Allergy (Intermediate, Verified 09/06/22 08:04) RASH,BLURRED VISION raloxifene [From EVISTA] Allergy (Intermediate, Verified 09/06/22 08:04) GERD sertraline [From ZOLOFT] Allergy (Intermediate, Verified 09/06/22 08:04) SKIN CRAWLING spironolactone [SPIRONOLACTONE] Allergy (Intermediate, Verified 09/06/22 08:04) RASH, ?? psoriasis strawberry [STRAWBERRY] Allergy (Intermediate, Verified 09/06/22 08:04) ITCHING tiotropium [From SPIRIVA WITH HANDIHALER] Allergy (Intermediate, Verified 09/06/22 08:04) RAW THROAT adhesive [ADHESIVE] Allergy (Unknown, Verified 09/06/22 08:04) RASH Atrovent Allergy (Unknown, Verified 09/06/22 08:04) Unknown dexlansoprazole [From DEXILANT] Allergy (Unknown, Verified 09/06/22 08:04) UNKNOWN doxycycline [DOXYCYCLINE] Allergy (Unknown, Verified 09/06/22 08:04) SEVERE NOYOLA, HEARTBURN Doxycycline Hyclate Allergy (Unknown, Verified 09/06/22 08:04) headache esomeprazole [Nexium] Allergy (Unknown, Verified 09/06/22 08:04) Unknown fluticasone [From ADVAIR DISKUS] Allergy (Unknown, Verified 09/06/22 08:04) HTN gabapentin [From NEURONTIN] Allergy (Unknown, Verified 09/06/22 08:04) THROAT TIGHTNESS glucosamine Allergy (Unknown, Verified 09/06/22 08:04) Unknown metoclopramide [From REGLAN] Allergy (Unknown, Verified 09/06/22 08:04) LETHARGY monosodium glutamate [MSG] Allergy (Unknown, Verified 09/06/22 08:04) HEADACHE naproxen [From ALEVE] Allergy (Unknown, Verified 09/06/22 08:04) FLUSH niacin Allergy (Unknown, Verified 09/06/22 08:04) Unknown omeprazole Allergy (Unknown, Verified 09/06/22 08:04) Unknown risedronate sodium [From ACTONEL] Allergy (Unknown, Verified 09/06/22 08:04) UNKNOWN rofecoxib [From Vioxx] Allergy (Unknown, Verified 09/06/22 08:04) ankle swelling salmeterol [From ADVAIR DISKUS] Allergy (Unknown, Verified 09/06/22 08:04) HTN scallops [SCALLOPS] Allergy (Unknown, Verified 09/06/22 08:04) NAUSEA & VOMITING tramadol [TRAMADOL] Allergy (Unknown, Verified 09/06/22 08:04) THROAT TIGHTNESS verapamil [VERAPAMIL] Allergy (Unknown, Verified 09/06/22 08:04) IRREGULAR HEARTBEAT lifitegrast [From Xiidra] Allergy (Verified 09/06/22 08:04) blurred vision, headache, eye swelling fluticasone furoate [From Trelegy Ellipta] Adverse Reaction (Unknown, Verified 09/06/22 08:04) Uknown umeclidinium [From Trelegy Ellipta] Adverse Reaction (Unknown, Verified 09/06/22 08:04) Uknown vilanterol [From Trelegy Ellipta] Adverse Reaction (Unknown, Verified 09/06/22 08:04) Uknown Sulindac Adverse Reaction (Intermediate, Uncoded 09/06/22 08:04) Nausea Medication List - Last Reconciled 09/06/22 by Jackie Pryor LPN aspirin (Adult Aspirin Regimen) 81 mg PO DAILY betamethasone dipropionate 0.05% 1 appl topical DIRECTED Bifidobacterium infantis (Align) 4 mg PO DAILY cetirizine (Zyrtec) 10 mg PO DAILY PRN cholecalciferol (vitamin D3) 25 mcg PO DAILY 30 days cyclosporine 0.05% (Restasis) 1 drp ophthalmic (eye) Q12H denosumab (Prolia) 60 mg subcut [id number] docusate sodium (Colace) 100 mg PO BID evolocumab (Repatha SureClick) 140 mg subcut Q2W fluticasone propionate 50 mcg/actuation (Allergy Relief (fluticasone)) 1 spray intranasal Q12H hydrochlorothiazide 12.5 mg PO DAILY 90 days ibuprofen (IBU) 600 mg PO Q8H PRN 90 days levalbuterol tartrate 45 mcg/actuation 2 puffs inhalation DAILY lidocaine 5% 1 patch topical DAILY lorazepam 0.5 mg PO BEDTIME losartan 25 mg PO DAILY 90 days magnesium oxide 500 mg PO DAILY montelukast 10 mg PO DAILY pantoprazole 40 mg PO BID sucralfate 1 g PO BID 90 days vit B complex 100 combo no.2 ER (Balanced B-100 Complex) tabs PO HPI s/p Cervical RFA 07/17/22 & 07/31/22 HPI Details 72-year-old female presenting today for a follow up. The patient did not undergo cervical RFA procedure because she underwent C4-5 anterior cervical discectomy, fusion, and plating on 07/02/22 by Gabby Santoyo. She states that her neck and arm pain initially resolved post-surgery. She states that she sustained an injury after falling down three steps on 09/03/22. She currently reports neck pain that radiates down her back to her shoulder blade. She is interested in trigger point injections for her neck pain. She has been taking Tylenol for pain management. She has tried Biofreeze topical cream with minimal benefits. She has not tried Salonpas patches in the past. She was using her TENS units. Past procedures: 04/17/2022: Greater Trochanteric Bursa Injection, Right: 80-90% relief. 04/17/2022: Sacroiliac Joint Injection, Bilateral: 80-90% relief. 11/21/2021: Diagnostic Cervical Medial Branch Block, Bilateral C3, C4, C5 medial branches: 90% relief PFSH Medical History Anxiety Asthma CAD (coronary artery disease) Cervical radiculitis Chronic sinusitis COPD (chronic obstructive pulmonary disease) COVID-19 vaccine administered Depression Dizziness Edema Fusion of spine, cervical region GERD (gastroesophageal reflux disease) H/O gastroesophageal reflux (GERD) History of aneurysm History of deviated nasal septum History of panic attacks History of primary hyperparathyroidism History of trigger finger HLD (hyperlipidemia) HTN (hypertension) Medial epicondylitis of left elbow Migraine Non-toxic multinodular goiter FRANCESCA (obstructive sleep apnea) Osteoporosis PTSD (post-traumatic stress disorder) Pulmonary nodules Right groin pain Right inguinal hernia Trigger finger Umbilical pain Surgical History H/O decompression of ulnar nerve History of appendectomy History of cardiac catheterization History of cholecystectomy History of esophagogastroduodenoscopy (EGD) History of eyelid surgery History of hernia repair History of hysterectomy History of lumpectomy of both breasts History of parathyroidectomy Hx of adenoidectomy Hx of cataract surgery Hx of colonoscopy Hx of eye surgery Hx of hand surgery Hx of right inguinal hernia repair Hx of shoulder surgery Hx of tonsillectomy S/P arthroscopic surgery of right knee S/P cubital tunnel release S/P repair of paraesophageal hernia Status post ablation of incompetent vein using laser Family History Father Liver cancer Psoriasis Cancer Mental health disorder Mother Cervical cancer Ovarian cancer Heart attack Substance use disorder Social History Household Members: Children and None Housing: House Alcohol intake: current Alcohol intake frequency: does not drink Patient Tobacco Use Status: Former Tobacco user Quit Date: 1979 e-Cigarette/Vaping Use: Never Used Second Hand Smoke Exposure: No service: No Current occupational status: employed Cognitive needs: No Hearing needs: No Vision needs: No Review of Systems Const All systems reviewed & are unremarkable except as noted in HPI and below Physical Exam Vital Signs: Last Vital Signs Pulse 80 09/06/22 08:01 Resp 14 09/06/22 08:01 BP 142/82 H 09/06/22 08:01 BMI result Body Mass Index 31.9 General: Appears afebrile. Alert and oriented. Mood and affect appropriate. Follows and participates in conversation appropriately. Respiratory effort is unlabored. Able to transition from sit to stand unassisted. Ambulates with bilaterally normal heel strike and toe off. Tenderness to palpation and myofascial knots on the left trapezius and rhomboid muscles Office Procedures Injection Trigger Point Multi Pre-procedure diagnosis: Myofascial pain Post-procedure diagnosis: Myofascial pain Site and number of trigger points: Left Trapezius, Rhomboid, occipitalis Solution: Total volume administered 10 ml (lidocaine 1%) The procedure, its benefits, and its risks were explained to the patient and all questions were answered.Prior to the start of the procedure, a ?time out? was performed to confirm correct patient, procedure, and laterality. Trigger points were identified by manual palpation and marked. The skin was cleaned with Chloraprep. A 1.5 inch, 25 gauge needle was used. Each of the trigger points were approximated and elevated in the direction away from the body. Dry needling then took place for five seconds. Approximately 0.5 ml to 1 ml of injectate was delivered to the trigger point followed by dry needling for five seconds. This process was repeated at each trigger point site. The patient tolerated the procedure well. Post-procedure, breath sounds were equal at both sides of the chest. The patient tolerated the procedure well, without complication. The patient denied any numbness, paresthesias, or weakness. Post-procedure vitals were recorded as part of the nursing discharge note in electronic medical record. Following a period of observation, the patient was discharged in stable condition with written discharge instructions. Trigger Point Multiple: 69083- Trigger point injection =/>3 Results Reviewed Results Reviewed: 09/03/22: XR ANKLE, RIGHT FINDINGS: There is no acute fracture or dislocation. The joint spaces are unremarkable. The tarsal bones are normally aligned. Very small plantar calcaneal spur. The soft tissues are unremarkable. IMPRESSION: Unremarkable right ankle. 09/03/22: XR HAND, RIGHT FINDINGS: Mild to moderate first carpal metacarpal degenerative joint changes are seen. There is no acute fracture or dislocation. The carpal bones are normally aligned. The distal radius and ulna are intact. The soft tissues are unremarkable. IMPRESSION: Mild to moderate first carpometacarpal degenerative joint changes most consistent with osteoarthritis. No acute fracture. 07/02/22: CR SPINE SPECIFY LEVEL 1 VIEW 06/11/22: MR CERVICAL SPINE WO Assessment & Plan Assessment & Plan (1) Cervical myofascial pain syndrome: Code(s): M79.18 - Myalgia, other site (2) Cervical spondylosis: Code(s): M47.812 - Spondylosis without myelopathy or radiculopathy, cervical region Plan 1. Discussed temporary nerve stimulator vs. trigger point injections as possible treatment options for ongoing neck joint and muscle pain. 2. Patient is status post trigger point injections. Patient tolerated procedure well and was discharged home in stable condition with discharge instructions. All questions were answered. Follow-up as needed. Scribed for Dr. Oquendo by Chin Green, medical malpractice paralegal, on 09/06/2022. I, Dr. Oquendo, have personally reviewed and agree with the information entered by the scribe. Coding Level of Care Code Est Pt Level 4 (64132) Diagnoses Cervical myofascial pain syndrome M79.18 Cervical spondylosis M47.812 CPT Codes Details - Trigger Point Multiple: 35268- Trigger point injection =/>3 ([id number])
[2022-09-06 08:01] VITALS: BP 142/82; PULSE 80; RESP 14; BMI 31.9
== END 2022-09-06 08:53 | disposition home or self-care (01) ==
PROVIDERS: PCP Nurse Practitioner Family; Visit Provider Internal Medicine
DX: M79.18 Myalgia, other site (principal); M47.812 Spondylosis without myelopathy or radiculopathy, cervical region
CPT/HCPCS: 20553; 99214

== ENCOUNTER → 2022-09-06 07:55 | Outpatient (BNVA) | payer MEDICARE, MEDICAID, SELFPAY | PROVIDERS: PCP Nurse Practitioner Family; Visit Provider Internal Medicine | DX: S93.401D Sprain of unspecified ligament of right ankle, subsequent encounter (principal); M79.18 Myalgia, other site; M47.812 Spondylosis without myelopathy or radiculopathy, cervical region | CPT/HCPCS: 20553; 99202; 99212 ==

== ENCOUNTER 2022-09-06 10:14 | Outpatient (AMB) | payer MEDICARE, MEDICAID, SELFPAY ==
--- NOTE | 2022-09-06 10:40 | MHC.OFFVIS ---
Intake Vital Signs 09/06/22 11:01 Height 4 ft 11 in Weight 158 lb BMI 31.9 Intake Visit Reasons: OV - Right Ankle Sprain Intake Note: Adali a 72 year old female who presents today for a follow up from a walk in clinic s/p fall, DOI 09/03/22. Patient reports that she had fallen down a few stairs and presented [place] [facility] [place] the same day where she was placed in a walking boot. She states her pain has been worse with boot wear, stating her foot was not stable in boot due to size and discontinued use of boot. Currently has soreness but states swelling has improved with icing, biofreeze and elevation. States 2 month s/p neck fusion. She wears orthotics in shoe. Allergies Lfyhemv-FMC-MoQ Reductase Inhibitor [LQAFICA-BBY-MAU REDUCTASE INHIBITOR] Allergy (Severe, Verified 09/06/22 11:01) JOINT PAIN amlodipine [AMLODIPINE] Allergy (Intermediate, Verified 09/06/22 11:01) PALIPITATIONS baclofen [BACLOFEN] Allergy (Intermediate, Verified 09/06/22 11:01) LETHARGY Beta-Blockers (Beta-Adrenergic Bloc Allergy (Intermediate, Verified 09/06/22 11:01) BRADYCARDIA budesonide [From SYMBICORT] Allergy (Intermediate, Verified 09/06/22 11:01) HOARSENESS Chocolate Allergy (Intermediate, Verified 09/06/22 11:01) Itching ezetimibe [From ZETIA] Allergy (Intermediate, Verified 09/06/22 11:01) JOINT PAIN, ELEVATED CPK ibandronate sodium [From BONIVA] Allergy (Intermediate, Verified 09/06/22 11:01) CHEST PAIN latex [LATEX] Allergy (Intermediate, Verified 09/06/22 11:01) RASH-SENSITIVITY lisinopril [LISINOPRIL] Allergy (Intermediate, Verified 09/06/22 11:01) COUGH, really bad cough, cough meloxicam [From MOBIC] Allergy (Intermediate, Verified 09/06/22 11:01) GI UPSET mometasone furoate [From DULERA] Allergy (Intermediate, Verified 09/06/22 11:01) COUGH Penicillins [PENICILLINS] Allergy (Intermediate, Verified 09/06/22 11:01) RASH pregabalin [From LYRICA] Allergy (Intermediate, Verified 09/06/22 11:01) RASH,BLURRED VISION raloxifene [From EVISTA] Allergy (Intermediate, Verified 09/06/22 11:01) GERD sertraline [From ZOLOFT] Allergy (Intermediate, Verified 09/06/22 11:01) SKIN CRAWLING spironolactone [SPIRONOLACTONE] Allergy (Intermediate, Verified 09/06/22 11:01) RASH, ?? psoriasis strawberry [STRAWBERRY] Allergy (Intermediate, Verified 09/06/22 11:01) ITCHING tiotropium [From SPIRIVA WITH HANDIHALER] Allergy (Intermediate, Verified 09/06/22 11:01) RAW THROAT adhesive [ADHESIVE] Allergy (Unknown, Verified 09/06/22 11:01) RASH Atrovent Allergy (Unknown, Verified 09/06/22 11:01) Unknown dexlansoprazole [From DEXILANT] Allergy (Unknown, Verified 09/06/22 11:01) UNKNOWN doxycycline [DOXYCYCLINE] Allergy (Unknown, Verified 09/06/22 11:01) SEVERE NOYOLA, HEARTBURN Doxycycline Hyclate Allergy (Unknown, Verified 09/06/22 11:01) headache esomeprazole [Nexium] Allergy (Unknown, Verified 09/06/22 11:01) Unknown fluticasone [From ADVAIR DISKUS] Allergy (Unknown, Verified 09/06/22 11:01) HTN gabapentin [From NEURONTIN] Allergy (Unknown, Verified 09/06/22 11:01) THROAT TIGHTNESS glucosamine Allergy (Unknown, Verified 09/06/22 11:01) Unknown metoclopramide [From REGLAN] Allergy (Unknown, Verified 09/06/22 11:01) LETHARGY monosodium glutamate [MSG] Allergy (Unknown, Verified 09/06/22 11:01) HEADACHE naproxen [From ALEVE] Allergy (Unknown, Verified 09/06/22 11:01) FLUSH niacin Allergy (Unknown, Verified 09/06/22 11:01) Unknown omeprazole Allergy (Unknown, Verified 09/06/22 11:01) Unknown risedronate sodium [From ACTONEL] Allergy (Unknown, Verified 09/06/22 11:01) UNKNOWN rofecoxib [From Vioxx] Allergy (Unknown, Verified 09/06/22 11:01) ankle swelling salmeterol [From ADVAIR DISKUS] Allergy (Unknown, Verified 09/06/22 11:01) HTN scallops [SCALLOPS] Allergy (Unknown, Verified 09/06/22 11:01) NAUSEA & VOMITING tramadol [TRAMADOL] Allergy (Unknown, Verified 09/06/22 11:01) THROAT TIGHTNESS verapamil [VERAPAMIL] Allergy (Unknown, Verified 09/06/22 11:01) IRREGULAR HEARTBEAT lifitegrast [From Xiidra] Allergy (Verified 09/06/22 11:01) blurred vision, headache, eye swelling fluticasone furoate [From Trelegy Ellipta] Adverse Reaction (Unknown, Verified 09/06/22 11:01) Uknown umeclidinium [From Trelegy Ellipta] Adverse Reaction (Unknown, Verified 09/06/22 11:01) Uknown vilanterol [From Trelegy Ellipta] Adverse Reaction (Unknown, Verified 09/06/22 11:01) Uknown Sulindac Adverse Reaction (Intermediate, Uncoded 09/06/22 11:01) Nausea HPI OV - Right Ankle Sprain HPI Details 72-year-old female who returns to the office today for a follow-up of right ankle pain s/p fall on 09/03/22. She was seen at walk in clinic where she was given a walking boot. She states she has pain and soreness in her ankle which is worse with boot wear as her foot is not stable from the boot due to being big in size and she has discontinued wearing the boot. She also reports her swelling has currently improved with icing, bio freeze and elevation. She wears orthotic in her shoe. She has a history of neck fusion about 2 months ago. [facility] Medical History Anxiety Asthma CAD (coronary artery disease) Cervical radiculitis Chronic sinusitis COPD (chronic obstructive pulmonary disease) COVID-19 vaccine administered Depression Dizziness Edema Fusion of spine, cervical region GERD (gastroesophageal reflux disease) H/O gastroesophageal reflux (GERD) History of aneurysm History of deviated nasal septum History of panic attacks History of primary hyperparathyroidism History of trigger finger HLD (hyperlipidemia) HTN (hypertension) Medial epicondylitis of left elbow Migraine Non-toxic multinodular goiter FRANCESCA (obstructive sleep apnea) Osteoporosis PTSD (post-traumatic stress disorder) Pulmonary nodules Right groin pain Right inguinal hernia Trigger finger Umbilical pain Surgical History H/O decompression of ulnar nerve History of appendectomy History of cardiac catheterization History of cholecystectomy History of esophagogastroduodenoscopy (EGD) History of eyelid surgery History of hernia repair History of hysterectomy History of lumpectomy of both breasts History of parathyroidectomy Hx of adenoidectomy Hx of cataract surgery Hx of colonoscopy Hx of eye surgery Hx of hand surgery Hx of right inguinal hernia repair Hx of shoulder surgery Hx of tonsillectomy S/P arthroscopic surgery of right knee S/P cubital tunnel release S/P repair of paraesophageal hernia Status post ablation of incompetent vein using laser Family History Father Liver cancer Psoriasis Cancer Mental health disorder Mother Cervical cancer Ovarian cancer Heart attack Substance use disorder Social History Household Members: Children and None Housing: House Alcohol intake: current Alcohol intake frequency: does not drink Patient Tobacco Use Status: Former Tobacco user Quit Date: 1979 e-Cigarette/Vaping Use: Never Used Second Hand Smoke Exposure: No service: No Current occupational status: employed Cognitive needs: No Hearing needs: No Vision needs: No Review of Systems Const All systems reviewed & are unremarkable except as noted in HPI and below Physical Exam Vital Signs: BMI result Body Mass Index 31.9 Extrem Other: Right ankle: Normal to inspection with mild swelling over the lateral malleolus with tenderness along the soft tissues. No discomfort along the posterior aspect of the ankle, no deformity along the Achilles tendon, negative Clements?s. No pain along the syndesmosis or anterior tibia. No laxity, NVI. Results Reviewed Results Reviewed: xrays of the right ankle obtained at urgent care are negative for acute fracture / dislocation. ankle mortise intact. Assessment & Plan Assessment & Plan (1) Sprain of right ankle: Code(s): S93.401A - Sprain of unspecified ligament of right ankle, initial encounter Plan I reviewed with patient the findings on exam and x-rays. I do recommend continuing with the walking boot for the next 2 weeks, however she feels the boot is making her ankle feel worse and throwing off her back, therefore we will transition her to an off the shelf lace-up ankle brace. She can continue to wear her regular street shoe and she will begin a course of physical therapy to work on ROM, gentle strengthening and proprioceptive training. I did educate her that this could take up to 2 months for full recovery as there is some swelling and pain that may be intermittent with activity, in that case she should rest, elevate and ice. If symptoms persist or worsens, patient will contact the office, otherwise follow-up as needed. Orders: Orders PT Evaluation and Treatment Today S93.401A - Sprain of unspecified ligament of right ankle, initial encounter Patient Instructions: Scribed for Aurora Serrano PA-C, by Harley Garcia health care / medical job titles, on 09/06/2022 at 10:45 AM EST. I, Aurora Serrano PA-C, have personally reviewed and agree with the information entered by the scribe. Coding Level of Care Code New Pt Level 3 (49083) Diagnoses Sprain of right ankle S93.401A
[2022-09-06 11:01] VITALS: BMI 31.9
== END 2022-09-06 12:22 | disposition home or self-care (01) ==
PROVIDERS: PCP Nurse Practitioner Family; Visit Provider Physician Assistant
DX: S93.401A Sprain of unspecified ligament of right ankle, initial encounter (principal)
CPT/HCPCS: 99203

== ENCOUNTER 2022-09-18 07:41 | Outpatient (AMB) | payer MEDICARE, MEDICAID, SELFPAY ==
[2022-09-18 07:57] VITALS: BP 142/80; PULSE 75; O2SAT 96; BMI 32.1
--- NOTE | 2022-09-18 07:57 | A.OFFPC_ITS ---
Vital Signs 09/18/22 07:57 Height 4 ft 11 in Weight 159 lb 2 oz BMI 32.1 BP 142/80 H Blood Pressure Location Lt brachial Position Sitting Pulse 75 Pulse Source Pulse Oximeter Pulse Oximetry (%) 96 Oxygen Delivery Method Room Air Intake Visit Reasons: Annual PE Allergies Orgohsi-SUH-UxO Reductase Inhibitor [[id number] REDUCTASE INHIBITOR] Allergy (Severe, Verified 09/18/22 08:06) JOINT PAIN amlodipine [AMLODIPINE] Allergy (Intermediate, Verified 09/18/22 08:06) PALIPITATIONS baclofen [BACLOFEN] Allergy (Intermediate, Verified 09/18/22 08:06) LETHARGY Beta-Blockers (Beta-Adrenergic Bloc Allergy (Intermediate, Verified 09/18/22 08:06) BRADYCARDIA budesonide [From SYMBICORT] Allergy (Intermediate, Verified 09/18/22 08:06) HOARSENESS Chocolate Allergy (Intermediate, Verified 09/18/22 08:06) Itching ezetimibe [From ZETIA] Allergy (Intermediate, Verified 09/18/22 08:06) JOINT PAIN, ELEVATED CPK ibandronate sodium [From BONIVA] Allergy (Intermediate, Verified 09/18/22 08:06) CHEST PAIN latex [LATEX] Allergy (Intermediate, Verified 09/18/22 08:06) RASH-SENSITIVITY lisinopril [LISINOPRIL] Allergy (Intermediate, Verified 09/18/22 08:06) COUGH, really bad cough, cough meloxicam [From MOBIC] Allergy (Intermediate, Verified 09/18/22 08:06) GI UPSET mometasone furoate [From DULERA] Allergy (Intermediate, Verified 09/18/22 08:06) COUGH Penicillins [PENICILLINS] Allergy (Intermediate, Verified 09/18/22 08:06) RASH pregabalin [From LYRICA] Allergy (Intermediate, Verified 09/18/22 08:06) RASH,BLURRED VISION raloxifene [From EVISTA] Allergy (Intermediate, Verified 09/18/22 08:06) GERD sertraline [From ZOLOFT] Allergy (Intermediate, Verified 09/18/22 08:06) SKIN CRAWLING spironolactone [SPIRONOLACTONE] Allergy (Intermediate, Verified 09/18/22 08:06) RASH, ?? psoriasis strawberry [STRAWBERRY] Allergy (Intermediate, Verified 09/18/22 08:06) ITCHING tiotropium [From SPIRIVA WITH HANDIHALER] Allergy (Intermediate, Verified 09/18/22 08:06) RAW THROAT adhesive [ADHESIVE] Allergy (Unknown, Verified 09/18/22 08:06) RASH Atrovent Allergy (Unknown, Verified 09/18/22 08:06) Unknown dexlansoprazole [From DEXILANT] Allergy (Unknown, Verified 09/18/22 08:06) UNKNOWN doxycycline [DOXYCYCLINE] Allergy (Unknown, Verified 09/18/22 08:06) SEVERE NOYOLA, HEARTBURN Doxycycline Hyclate Allergy (Unknown, Verified 09/18/22 08:06) headache esomeprazole [Nexium] Allergy (Unknown, Verified 09/18/22 08:06) Unknown fluticasone [From ADVAIR DISKUS] Allergy (Unknown, Verified 09/18/22 08:06) HTN gabapentin [From NEURONTIN] Allergy (Unknown, Verified 09/18/22 08:06) THROAT TIGHTNESS glucosamine Allergy (Unknown, Verified 09/18/22 08:06) Unknown metoclopramide [From REGLAN] Allergy (Unknown, Verified 09/18/22 08:06) LETHARGY monosodium glutamate [MSG] Allergy (Unknown, Verified 09/18/22 08:06) HEADACHE naproxen [From ALEVE] Allergy (Unknown, Verified 09/18/22 08:06) FLUSH niacin Allergy (Unknown, Verified 09/18/22 08:06) Unknown omeprazole Allergy (Unknown, Verified 09/18/22 08:06) Unknown risedronate sodium [From ACTONEL] Allergy (Unknown, Verified 09/18/22 08:06) UNKNOWN rofecoxib [From Vioxx] Allergy (Unknown, Verified 09/18/22 08:06) ankle swelling salmeterol [From ADVAIR DISKUS] Allergy (Unknown, Verified 09/18/22 08:06) HTN scallops [SCALLOPS] Allergy (Unknown, Verified 09/18/22 08:06) NAUSEA & VOMITING tramadol [TRAMADOL] Allergy (Unknown, Verified 09/18/22 08:06) THROAT TIGHTNESS verapamil [VERAPAMIL] Allergy (Unknown, Verified 09/18/22 08:06) IRREGULAR HEARTBEAT lifitegrast [From Xiidra] Allergy (Verified 09/18/22 08:06) blurred vision, headache, eye swelling fluticasone furoate [From Trelegy Ellipta] Adverse Reaction (Unknown, Verified 09/18/22 08:06) Uknown umeclidinium [From Trelegy Ellipta] Adverse Reaction (Unknown, Verified 09/18/22 08:06) Uknown vilanterol [From Trelegy Ellipta] Adverse Reaction (Unknown, Verified 09/18/22 08:06) Uknown Sulindac Adverse Reaction (Intermediate, Uncoded 09/18/22 08:06) Nausea Medication List - Last Reconciled 09/18/22 by HALIE Mcmahon-BC aspirin (Adult Aspirin Regimen) 81 mg PO DAILY betamethasone dipropionate 0.05% 1 appl topical DIRECTED Bifidobacterium infantis (Align) 4 mg PO DAILY cetirizine (Zyrtec) 10 mg PO DAILY PRN cholecalciferol (vitamin D3) 25 mcg PO DAILY 30 days cyclosporine 0.05% (Restasis) 1 drp ophthalmic (eye) Q12H denosumab (Prolia) 60 mg subcut [id number] docusate sodium (Colace) 100 mg PO BID evolocumab (Repatha SureClick) 140 mg subcut Q2W fluticasone propionate 50 mcg/actuation (Allergy Relief (fluticasone)) 1 spray intranasal Q12H hydrochlorothiazide 12.5 mg PO DAILY 90 days ibuprofen (IBU) 600 mg PO Q8H PRN 90 days levalbuterol tartrate 45 mcg/actuation 2 puffs inhalation DAILY lidocaine 5% 1 patch topical DAILY lorazepam 0.5 mg PO BEDTIME losartan 25 mg PO DAILY 90 days magnesium oxide 500 mg PO DAILY montelukast 10 mg PO DAILY pantoprazole 40 mg PO BID sucralfate 1 g PO BID 90 days Tobacco use date assessed: 09/18/22 Fall risk assessment: 1 Fall in past year Last assessed Fall Risk: 09/18/22 Dental Screening Dental Screen Date: 09/18/22 Did you have a dental visit in the last 12 months?: Yes Did you have a dental problem in the last 6 months where you did not have access to dental care?: No Was dental information given to patient?: Patient has dentist HPI Annual PE HPI Details pt is here for a PE. Colon screen is up to date. Pt sees endo for osteoporosis. mammo is up to date. recent cervical neck fusion. Pt does report chocking on food easily. She further reports chocking on liquids as well. I will get a barium swallow. She did report seeing ENT, scoped, nothing found (according to pt). [facility] Medical History Anxiety Asthma CAD (coronary artery disease) Cervical radiculitis Chronic sinusitis COPD (chronic obstructive pulmonary disease) COVID-19 vaccine administered Depression Dizziness Edema Fusion of spine, cervical region GERD (gastroesophageal reflux disease) H/O gastroesophageal reflux (GERD) History of aneurysm History of deviated nasal septum History of panic attacks History of primary hyperparathyroidism History of trigger finger HLD (hyperlipidemia) HTN (hypertension) Medial epicondylitis of left elbow Migraine Non-toxic multinodular goiter FRANCESCA (obstructive sleep apnea) Osteoporosis PTSD (post-traumatic stress disorder) Pulmonary nodules Right groin pain Right inguinal hernia Trigger finger Umbilical pain Surgical History H/O decompression of ulnar nerve History of appendectomy History of cardiac catheterization History of cholecystectomy History of esophagogastroduodenoscopy (EGD) History of eyelid surgery History of hernia repair History of hysterectomy History of lumpectomy of both breasts History of parathyroidectomy Hx of adenoidectomy Hx of cataract surgery Hx of colonoscopy Hx of eye surgery Hx of hand surgery Hx of right inguinal hernia repair Hx of shoulder surgery Hx of tonsillectomy S/P arthroscopic surgery of right knee S/P cubital tunnel release S/P repair of paraesophageal hernia Status post ablation of incompetent vein using laser Family History Father Liver cancer Psoriasis Cancer Mental health disorder Mother Cervical cancer Ovarian cancer Heart attack Substance use disorder Social History Household Members: Children and None Housing: House Alcohol intake: current Alcohol intake frequency: does not drink Patient Tobacco Use Status: Former Tobacco user Quit Date: 1979 e-Cigarette/Vaping Use: Never Used Second Hand Smoke Exposure: No service: No Current occupational status: employed Cognitive needs: No Hearing needs: No Vision needs: No Questionnaire Thrive Questionnaire Date Thrive assessed: 03/07/22 AUDIT C Alcohol Use Questionnaire (AUDIT-C) 1. How often do you have a drink containing alcohol?: Never Total Score: 0 JASPAL-7 AMB Questionnaire JASPAL-7 Date JASPAL - 7 assessed: 03/07/22 Source: Developed by Drs. Manas Hilario, Lizabeth Wadsworth, Hernando Rodríguez and colleagues, with an educational fidelina from [employer]. Review of Systems Const Denies chills and Denies fever(s) Eyes Denies blurry vision ENT Denies vertigo, Denies dizziness and Denies sore throat Card Denies chest pain at rest, Denies chest pain with activity, Denies diaphoresis, Denies dyspnea and Denies dyspnea on exertion Resp Denies cough, Denies dyspnea, Denies dyspnea on exertion and Denies wheezing GI Denies abdominal pain, Denies melena, Denies hematochezia, Denies constipation, Denies diarrhea and Denies loose stools Denies hematuria Musc Denies numbness and Denies tingling Skin/Breast Denies lesions Neuro Denies vertigo, Denies dizziness, Denies numbness and Denies tingling Psych Denies anxiety, Denies depression, Denies homicidal ideation, Denies suicidal ideation and Denies other (substance abuse) Aller/Immun Denies wheezing Physical exam (Primary Care) Vital Signs: Last Vital Signs Pulse 75 09/18/22 07:57 BP 142/80 H 09/18/22 07:57 Pulse Ox 96 09/18/22 07:57 Oxygen Delivery Method Room Air 09/18/22 07:57 BMI result Body Mass Index 32.1 Tobacco/Smoking Status: Tobacco use Status Tobacco use date assessed 09/18/22 09/18/22 08:11 Patient Tobacco Use Status Former Tobacco user 09/18/22 08:00 e-Cigarette/Vaping Use Never Used 09/18/22 08:00 Thrive Assessment: Date of Thrive Assessment Date Thrive assessed 03/07/22 09/18/22 08:00 Const General: cooperative Nutritional Appearance: well nourished Orientation/consciousness: patient oriented x3 HENMT Head: Yes normal to inspection, Yes normocephalic and Yes atraumatic Ears: TM normal on the right and TM normal on the left Eyes General: appearance normal, both eyes and all related structures Alignment and Position: alignment normal and position normal Neck Neck: Yes normal visual inspection and Yes no lymphadenopathy Resp Effort & Inspection: normal respiratory effort Auscultation: clear to auscultation bilaterally Cardio Rate: regular rate Rhythm: regular rhythm Heart sounds: S1 normal heart sound present, S2 normal heart sound present and no murmurs GI Palpation (GI): Soft to palpation and nontender Auscultation: normal bowel sounds Skin Rashes: no rashes Neuro General: patient oriented x3, moves all extremities, no focal motor deficits and deep tendon reflexes 2+ bilaterally Romberg Test: Negative Extrem Right lower extremity: no edema Left lower extremity: no edema Psych Affect: normal affect Attitude: cooperative Thought process: Normal thought process present Assessment and Plan Assessment & Plan (1) Physical exam: Code(s): Z00.00 - Encounter for general adult medical examination without abnormal findings (2) Osteoporosis: Code(s): M81.0 - Age-related osteoporosis without current pathological fracture (3) Choking: Code(s): T17.308A - Unspecified foreign body in larynx causing other injury, initial encounter Orders: Orders Comprehensive [place]. Panel Fast Today Z00.00 - Encounter for general adult medical examination without abnormal findings Lipid Panel Today Z00.00 - Encounter for general adult medical examination without abnormal findings TSH reflex Free T4 Today Z00.00 - Encounter for general adult medical examination without abnormal findings Complete Blood Count Auto Diff Today Z00.00 - Encounter for general adult medical examination without abnormal findings UA CC w/rflx Micro + Cult Today Z00.00 - Encounter for general adult medical examination without abnormal findings Vitamin D 25-OH Total Today M81.0 - Age-related osteoporosis without current pathological fracture, Z78.0 - Asymptomatic menopausal state FL barium swallow modified Today T17.308A - Unspecified foreign body in larynx causing other injury, initial encounter Medications: Refilled fluticasone propionate 50 mcg/actuation (Allergy Relief (fluticasone)) administer into each nostril 1 spray intranasal Q12H 16 grams 3RF Coding Level of Care Code Est Pt Prev Care >65y(69378) Diagnoses Physical exam Z00.00 Osteoporosis M81.0 Choking T17.308A
== END 2022-09-18 08:36 | disposition home or self-care (01) ==
PROVIDERS: PCP Nurse Practitioner Family; Visit Provider Nurse Practitioner Family
DX: Z00.00 Encounter for general adult medical examination without abnormal findings (principal); M81.0 Age-related osteoporosis without current pathological fracture; T17.308A Unspecified foreign body in larynx causing other injury, initial encounter
CPT/HCPCS: 99397

== ENCOUNTER 2022-09-20 06:31 | Outpatient (REF) | payer MEDICARE, MEDICAID, SELFPAY ==
[2022-09-20 11:32] LABS: MANUAL DIFF FLAG NO
[2022-09-20 11:35] LABS: Appearance Urine Clear; Color Urine Yellow; Glucose Urine UA Negative (Negative); Leukocyte Esterase Urine Negative (Negative); Nitrite Urine Negative (Negative); Urine Blood Negative (Negative); Urine Ketones Negative (Negative); Urine Protein Negative (Neg-Trace)
[2022-09-20 11:45] LABS: Basophils Absolute Auto 0.1 X10*3/uL (0.0-0.2); Basophils Percent Auto 1.1 % (0-2); Eosinophils Absolute Auto 0.1 X10*3/uL (0.0-0.4); Eosinophils Percent Auto 2.2 % (0-4); Hematocrit 40.1 % (37.0-47.0); Hemoglobin 13.3 g/dl (12.0-16.0); Imm Gran Abs Auto 0.01 X10*3/uL (0.00-0.03); Imm Gran Pct Auto 0.2 % (0.0-0.4); Lymphocytes Absolute Auto 1.9 X10*3/uL (1.2-4.9); Lymphocytes Percent Auto 29.5 % (20-40); Mean Corpuscular HGB Conc 33.2 g/dl (31.0-35.0); Mean Corpuscular Hemoglobin 30.1 pg (27.0-33.0); Mean Corpuscular Volume 90.7 fL (80.0-98.0); Mean Platelet Volume 10.6 fL (9.4-12.3); Monocytes Absolute Auto 0.4 X10*3/uL (0.1-1.2); Monocytes Percent Auto 6.8 % (2-11); Neutrophils Absolute Auto 3.8 x10*3/uL (2.0-8.3); Neutrophils Percent Auto 60.2 % (45-73); Platelet Count 319 X10*3/uL (160-400); Red Blood Count 4.42 X10*6/uL (4.20-5.50); Red Cell Distribution Width 12.2 % (11.0-16.0); White Blood Count 6.3 X10*3/uL (4.8-10.8)
[2022-09-20 12:18] LABS: Alanine Aminotransferase 11 U/L (0-31); Albumin Level 3.9 g/dL (3.5-5.0); Alkaline Phosphatase 81 U/L (39-117); Anion Gap 12 (12-20); Aspartate Amino Transferase 17 U/L (5-31); Bilirubin Total 0.6 mg/dL (0.0-1.0); Blood Urea Nitrogen 13 mg/dL (9-16); Calcium 8.6 mg/dL (8.4-10.2); Carbon Dioxide 29 mmol/L (22-29); Chloride 106 mmol/L (96-108); Cholesterol 139 mg/dL; Estimated Glomerular Filt Rate > 60; Glucose Fasting 90 mg/dL (60-99); HDL Cholesterol 39 mg/dL; LDL Cholesterol Calculated 74 mg/dl; Potassium 3.9 mmol/L (3.3-5.1); Sodium 143 mmol/L (135-145); Total Protein 6.6 g/dL (6.5-8.0); Triglycerides 131 mg/dL
[2022-09-20 12:36] LABS: TSH reflex Free T4 1.54 uIU/mL (0.32-4.0); Vitamin D 25-OH Total 77.1 ng/mL (>30)
== END 2022-09-20 06:32 | disposition home or self-care (01) ==
LOC: HO.HMGCLDS 06:31
PROVIDERS: PCP Nurse Practitioner Family; Visit Provider Nurse Practitioner Family
DX: Z00.00 Encounter for general adult medical examination without abnormal findings (principal); M81.0 Age-related osteoporosis without current pathological fracture; Z78.0 Asymptomatic menopausal state; E78.5 Hyperlipidemia, unspecified; R53.83 Other fatigue; I25.10 Atherosclerotic heart disease of native coronary artery without angina pectoris; G47.33 Obstructive sleep apnea (adult) (pediatric)
CPT/HCPCS: 36415; 80053; 80061; 81003; 82306; 84443; 85025

== ENCOUNTER 2022-09-26 13:23 | Outpatient (REF) | payer MEDICARE, MEDICAID, SELFPAY ==
--- NOTE | ~2022-09-26 | CT_ITS ---
EXAMINATION: CT CHEST WITHOUT CONTRAST CLINICAL INFORMATION: Other nonspecific abnormal finding of lung field COMPARISON: Previous chest CT March 2021 TECHNIQUE: Multidetector volumetric CT imaging of the chest was done. Axial MIP volume rendering provided. Sagittal and coronal reformatted images were obtained. This CT examination was performed using dose optimization techniques as appropriate, variously including the following: *Automated exposure control *Adjustment of mA and/or kV according to patient size (this includes techniques or standardized protocols for targeted exams where dose is matched to indication/reason for exam; i.e. extremities or head) *Use of iterative reconstruction technique DLP: 108 mGy-cm FINDINGS: LUNGS: Small pulmonary nodules are stable. Largest pulmonary nodule is a 3 mm calcified right upper lobe nodule axial image 83 series 5. There is mild bronchial wall thickening and increased peribronchial attenuation suggestive of airways disease in the right upper lobe and left lower lobe that is more to previous exams. No endobronchial or endotracheal lesion is seen. No new pulmonary nodule. Previously identified groundglass attenuation nodules on older exams longer seen. MEDIASTINUM: The mediastinum is normal. CORONARY ARTERY CALCIFICATION: Mild PLEURA: There is no pleural effusion. No pleural mass or thickening. AXILLA: No lymphadenopathy. UPPER ABDOMEN: Unremarkable. OSSEOUS STRUCTURES: Degenerative changes of the thoracic spine. Postsurgical changes to the cervical spine. CT/CT chest wo IV con IMPRESSION: Mild right upper lobe airways disease. This is similar to prior exams. Stable small solid pulmonary nodules. According to the UPDATED 2017 Fleischner Society recommendations, the advised follow-up imaging for solid nodules < 6 mm is: LOW RISK PATIENT: No routine follow-up. HIGH RISK PATIENT: Optional CT at 12 months. Solid nodules are stable going back to oldest available chest CT February 2020. According to Fleischner guidelines, no additional chest CT follow-up would be recommended. Mild airways disease similar to previous exams. Fleischner guidelines were followed.
== END 2022-09-26 13:24 | disposition home or self-care (01) ==
LOC: HO.CT 13:23
PROVIDERS: Visit Provider Hospitalist
DX: R91.8 Other nonspecific abnormal finding of lung field (principal)
CPT/HCPCS: 71250

== ENCOUNTER 2022-10-08 16:00 | Outpatient (RCR) | payer MEDICARE, MEDICAID, SELFPAY ==
--- NOTE | 2022-09-20 09:42 | MHC.PT.EP ---
[facility] [place] Office [place] Office [place] Office [address] [phone] F: [phone] F: [phone] F: [phone] F: [phone] Physical Therapy Plan of Care Date of Evaluation: Date of Surgery: Diagnosis: R ankle sprain. Assessment: Pt is a 72 y/o female with HTN, osteoporosis and is s/p cervical fusion 07/02/22 presenting to PT with a script for R ankle sprain. Pt has difficulty with walking long distances, negotiating uneven terrains, and dancing secondary to limited ankle ROM, decreased LE strength, and pain. Pt is deemed an appropriate candidate for skilled PT service as she is highly motivated to improve pain and return to her previous level of function. Frequency and Duration: The patient will be seen 2x/wk x4wks Short Term Goals: Initiate HEP Improve pain to <3/10 [employer] Goals: [place] with HEP Improve R ankle inversion strength by 1/2 a MMT grade: initial 4-/5 painful Pt will be able to walk 2 blocks without difficulty: initial moderate difficulty Treatment Plan: Modalities to reduce pain, spasms and effusion. Manual therapy to restore motion and function. Therapeutic exercise to improve strength and flexibility. Neuromuscular re-education for posture and balance. Therapeutic activities to return to functional activities of daily living. Electronically signed by: Arun Saldivar PT. Please sign and return to therapist. Thank you for your referral.
--- NOTE | 2022-10-10 08:02 | MHC.PT.DC ---
[facility] [place] Office [place] Office [place] Office [address] [place] [address] [phone] F: [phone] F: [phone] F: [phone] F: [phone] Physical Therapy Discharge Report Diagnosis: R ankle sprain. Date of Surgery: Date of Evaluation: 09/20/22 Date of Discharge: 10/10/22 Treatments to Date: 6 Cancellations to Date: No Shows to Date: Discharge Status: Patient Elected to Stop Discharge Summary: . Electronically signed by: Arun Saldivar PT Please sign and return to therapist. Thank you for your referral.
== END 2022-10-10 08:03 | disposition home or self-care (01) ==
LOC: HO.PTCHIC 16:00
PROVIDERS: PCP Nurse Practitioner Family; Visit Provider Physician Assistant
DX: S93.401D Sprain of unspecified ligament of right ankle, subsequent encounter (principal)
CPT/HCPCS: 97110; 97162

== ENCOUNTER 2022-10-11 09:22 | Outpatient (AMB) | payer MEDICARE, MEDICAID, SELFPAY ==
[2022-10-11 09:27] VITALS: BP 132/83; PULSE 82; RESP 14; O2SAT 97
--- NOTE | 2022-10-11 09:27 | A.OFFVIS_ITS ---
Intake Vital Signs 10/11/22 09:27 Height 4 ft 11 in BP 132/83 Blood Pressure Location Rt brachial Position Sitting Respiration 14 Pulse 82 Pulse Source Pulse Oximeter Pulse Oximetry (%) 97 Oxygen Delivery Method Room Air Intake Visit Reasons: Trigger point injections Allergies Truppnc-SPB-VzN Reductase Inhibitor [[id number] REDUCTASE INHIBITOR] Allergy (Severe, Verified 10/11/22 09:27) JOINT PAIN amlodipine [AMLODIPINE] Allergy (Intermediate, Verified 10/11/22 09:) PALIPITATIONS baclofen [BACLOFEN] Allergy (Intermediate, Verified 10/11/22 09:) LETHARGY Beta-Blockers (Beta-Adrenergic Bloc Allergy (Intermediate, Verified 10/11/22 09:) BRADYCARDIA budesonide [From SYMBICORT] Allergy (Intermediate, Verified 10/11/22) HOARSENESS Chocolate Allergy (Intermediate, Verified 10/11/22:) Itching ezetimibe [From ZETIA] Allergy (Intermediate, Verified 10/11/22 09:) JOINT PAIN, ELEVATED CPK ibandronate sodium [From BONIVA] Allergy (Intermediate, Verified 10/11/22 09:) CHEST PAIN latex [LATEX] Allergy (Intermediate, Verified 10/11/22 09:) RASH-SENSITIVITY lisinopril [LISINOPRIL] Allergy (Intermediate, Verified 10/11/22 09:) COUGH, really bad cough, cough meloxicam [From MOBIC] Allergy (Intermediate, Verified 10/11/22 09:27) GI UPSET mometasone furoate [From DULERA] Allergy (Intermediate, Verified 10/11/22 09:27) COUGH Penicillins [PENICILLINS] Allergy (Intermediate, Verified 10/11/22 09:27) RASH pregabalin [From LYRICA] Allergy (Intermediate, Verified 10/11/22 09:27) RASH,BLURRED VISION raloxifene [From EVISTA] Allergy (Intermediate, Verified 10/11/22 09:) GERD sertraline [From ZOLOFT] Allergy (Intermediate, Verified 10/11/22 09:27) SKIN CRAWLING spironolactone [SPIRONOLACTONE] Allergy (Intermediate, Verified 10/11/22 09:27) RASH, ?? psoriasis strawberry [STRAWBERRY] Allergy (Intermediate, Verified 10/11/22 09:27) ITCHING tiotropium [From SPIRIVA WITH HANDIHALER] Allergy (Intermediate, Verified 10/11/22 09:27) RAW THROAT adhesive [ADHESIVE] Allergy (Unknown, Verified 10/11/22 09:) RASH Atrovent Allergy (Unknown, Verified 10/11/22 09:) Unknown dexlansoprazole [From DEXILANT] Allergy (Unknown, Verified 10/11/22 09:27) UNKNOWN doxycycline [DOXYCYCLINE] Allergy (Unknown, Verified 10/11/22 09:) SEVERE NOYOLA, HEARTBURN Doxycycline Hyclate Allergy (Unknown, Verified 10/11/22 09:) headache esomeprazole [Nexium] Allergy (Unknown, Verified 10/11/22 09:) Unknown fluticasone [From ADVAIR DISKUS] Allergy (Unknown, Verified 10/11/22 09:) HTN gabapentin [From NEURONTIN] Allergy (Unknown, Verified 10/11/22 09:) THROAT TIGHTNESS glucosamine Allergy (Unknown, Verified 10/11/22 09:) Unknown metoclopramide [From REGLAN] Allergy (Unknown, Verified 10/11/22 09:) LETHARGY monosodium glutamate [MSG] Allergy (Unknown, Verified 10/11/22 09:) HEADACHE naproxen [From ALEVE] Allergy (Unknown, Verified 10/11/22 09:) FLUSH niacin Allergy (Unknown, Verified 10/11/22 09:) Unknown omeprazole Allergy (Unknown, Verified 10/11/22 09:) Unknown risedronate sodium [From ACTONEL] Allergy (Unknown, Verified 10/11/22 09:) UNKNOWN rofecoxib [From Vioxx] Allergy (Unknown, Verified 10/11/22 09:27) ankle swelling salmeterol [From ADVAIR DISKUS] Allergy (Unknown, Verified 10/11/22 09:27) HTN scallops [SCALLOPS] Allergy (Unknown, Verified 10/11/22 09:27) NAUSEA & VOMITING tramadol [TRAMADOL] Allergy (Unknown, Verified 10/11/22 09:27) THROAT TIGHTNESS verapamil [VERAPAMIL] Allergy (Unknown, Verified 10/11/22 09:27) IRREGULAR HEARTBEAT lifitegrast [From Xiidra] Allergy (Verified 10/11/22 09:27) blurred vision, headache, eye swelling fluticasone furoate [From Trelegy Ellipta] Adverse Reaction (Unknown, Verified 10/11/22 09:27) Uknown umeclidinium [From Trelegy Ellipta] Adverse Reaction (Unknown, Verified 10/11/22 09:27) Uknown vilanterol [From Trelegy Ellipta] Adverse Reaction (Unknown, Verified 10/11/22 09:27) Uknown Sulindac Adverse Reaction (Intermediate, Uncoded 10/11/22 09:27) Nausea Medication List - Last Reconciled 10/11/22 by Jackie Pryor LPN aspirin (Adult Aspirin Regimen) 81 mg PO DAILY betamethasone dipropionate 0.05% 1 appl topical DIRECTED Bifidobacterium infantis (Align) 4 mg PO DAILY cetirizine (Zyrtec) 10 mg PO DAILY PRN cholecalciferol (vitamin D3) 25 mcg PO DAILY 30 days cyclosporine 0.05% (Restasis) 1 drp ophthalmic (eye) Q12H denosumab (Prolia) 60 mg subcut [id number] docusate sodium (Colace) 100 mg PO BID evolocumab (Repatha SureClick) 140 mg subcut Q2W fluticasone propionate 50 mcg/actuation (Allergy Relief (fluticasone)) 1 spray intranasal Q12H hydrochlorothiazide 12.5 mg PO DAILY 90 days ibuprofen (IBU) 600 mg PO Q8H PRN 90 days levalbuterol tartrate 45 mcg/actuation 2 puffs inhalation DAILY lidocaine 5% 1 patch topical DAILY lorazepam 0.5 mg PO BEDTIME losartan 25 mg PO DAILY 90 days magnesium oxide 500 mg PO DAILY montelukast 10 mg PO DAILY pantoprazole 40 mg PO BID sucralfate 1 g PO BID 90 days HPI Trigger point injections HPI Details 72-year-old female is presenting today for a trigger point injection. She denies any recent cough, cold, infection, fever or other significant changes in medical history since last office visit. The patient had significant relief from the procedure. She had soreness for two to three days after the last procedure, which resolved on its own. She is still experiencing mild neck pain that is not radiating to her shoulder. She states that the crunching sound in her neck has improved. She has a history of osteoarthritis in her hands, knees, and ankles. She tried lidocaine, 4% menthol patches, and Biofreeze for arthritic pain on left side. She denies any history of Hep C infection or STD diseases. Past procedures: 09/06/22: Trigger point injection: >60% relief. 04/17/2022: Greater Trochanteric Bursa Injection, Right: 80-90% relief. 04/17/2022: Sacroiliac Joint Injection, Bilateral: 80-90% relief. 11/21/2021: Diagnostic Cervical Medial Branch Block, Bilateral C3, C4, C5 medial branches: 90% relief. [facility] Medical History Anxiety Asthma CAD (coronary artery disease) Cervical radiculitis Chronic sinusitis COPD (chronic obstructive pulmonary disease) COVID-19 vaccine administered Depression Dizziness Edema Fusion of spine, cervical region GERD (gastroesophageal reflux disease) H/O gastroesophageal reflux (GERD) History of aneurysm History of deviated nasal septum History of panic attacks History of primary hyperparathyroidism History of trigger finger HLD (hyperlipidemia) HTN (hypertension) Medial epicondylitis of left elbow Migraine Non-toxic multinodular goiter FRANCESCA (obstructive sleep apnea) Osteoporosis PTSD (post-traumatic stress disorder) Pulmonary nodules Right groin pain Right inguinal hernia Trigger finger Umbilical pain Surgical History H/O decompression of ulnar nerve History of appendectomy History of cardiac catheterization History of cholecystectomy History of esophagogastroduodenoscopy (EGD) History of eyelid surgery History of hernia repair History of hysterectomy History of lumpectomy of both breasts History of parathyroidectomy Hx of adenoidectomy Hx of cataract surgery Hx of colonoscopy Hx of eye surgery Hx of hand surgery Hx of right inguinal hernia repair Hx of shoulder surgery Hx of tonsillectomy S/P arthroscopic surgery of right knee S/P cubital tunnel release S/P repair of paraesophageal hernia Status post ablation of incompetent vein using laser Family History Father Liver cancer Psoriasis Cancer Mental health disorder Mother Cervical cancer Ovarian cancer Heart attack Substance use disorder Social History Household Members: Children and None Housing: House Alcohol intake: current Alcohol intake frequency: does not drink Patient Tobacco Use Status: Former Tobacco user Quit Date: 1979 e-Cigarette/Vaping Use: Never Used Second Hand Smoke Exposure: No service: No Current occupational status: employed Cognitive needs: No Hearing needs: No Vision needs: No Review of Systems Const All systems reviewed & are unremarkable except as noted in HPI and below Physical Exam Vital Signs: Last Vital Signs Pulse 82 10/11/22 09:27 Resp 14 10/11/22 09:27 BP 132/83 10/11/22 09:27 Pulse Ox 97 10/11/22 09:27 Oxygen Delivery Method Room Air 10/11/22 09:27 General: Appears afebrile. Alert and oriented. Mood and affect appropriate. Follows and participates in conversation appropriately. Respiratory effort is unlabored. Able to transition from sit to stand unassisted. Ambulates with bilaterally normal heel strike and toe off. Office Procedures Injection Trigger Point Multi Pre-procedure diagnosis: Myofascial pain Post-procedure diagnosis: Myofascial pain Site and number of trigger points: Left Trapezius, Rhomboid, occipitalis Solution: Total volume administered 8 ml (lidocaine 1% and bupivacaine 0.25%) The procedure, its benefits, and its risks were explained to the patient and all questions were answered.Prior to the start of the procedure, a ?time out? was performed to confirm correct patient, procedure, and laterality. Trigger points were identified by manual palpation and marked. The skin was cleaned with Chloraprep. A 1.5 inch, 25 gauge needle was used. Each of the trigger points were approximated and elevated in the direction away from the body. Dry needling then took place for five seconds. Approximately 0.5 ml to 1 ml of injectate was delivered to the trigger point followed by dry needling for five seconds. This process was repeated at each trigger point site. The patient tolerated the procedure well. Post-procedure, breath sounds were equal at both sides of the chest. The patient tolerated the procedure well, without complication. The patient denied any numbness, paresthesias, or weakness. Post-procedure vitals were recorded as part of the nursing discharge note in [facility] medical record. Following a period of observation, the patient was discharged in stable condition with written discharge instructions. Trigger Point Multiple: 39131- Trigger point injection =/>3 Results Reviewed Results Reviewed: No imaging is available for review. Assessment & Plan Assessment & Plan (1) Cervical myofascial pain syndrome: Code(s): M79.18 - Myalgia, other site Plan Patient is status post trigger point injection. Patient tolerated procedure well and was discharged home in stable condition with discharge instructions. We can follow-up in a month to repeat the trigger point injections. Scribed for Dr. Oquendo by Chin Green, medical practice assistant, on 10/11/2022. I, Dr. Oquendo, have personally reviewed and agree with the information entered by the scribe. Coding Level of Care Code Procedure Only Diagnoses Cervical myofascial pain syndrome M79.18 CPT Codes Details - Trigger Point Multiple: 02302- Trigger point injection =/>3 ([id number])
== END 2022-10-11 09:44 | disposition home or self-care (01) ==
PROVIDERS: PCP Nurse Practitioner Family; Visit Provider Internal Medicine
DX: M79.18 Myalgia, other site (principal)
CPT/HCPCS: 20553

== ENCOUNTER → 2022-10-11 09:22 | Outpatient (BNVA) | payer MEDICARE, MEDICAID, SELFPAY | PROVIDERS: PCP Nurse Practitioner Family; Visit Provider Internal Medicine | DX: M79.18 Myalgia, other site (principal) | CPT/HCPCS: 20553 ==

== ENCOUNTER 2022-10-30 08:09 | Outpatient (AMB) | payer MEDICARE, MEDICAID, SELFPAY ==
[2022-10-30 08:36] VITALS: BP 130/70; PULSE 57; O2SAT 98; BMI 32.3
--- NOTE | 2022-10-30 08:36 | A.OFFVIS_ITS ---
Intake Vital Signs 10/30/22 08:36 Height 4 ft 11 in Weight 159 lb 13.362 oz BMI 32.3 BP 130/70 Blood Pressure Location Lt brachial Position Sitting Pulse 57 Pulse Source Pulse Oximeter Pulse Oximetry (%) 98 Oxygen Delivery Method Room Air Intake Visit Reasons: dyspnea on exertion Room Service Food Server Required: No Allergies Naqfuqi-XSU-OfV Reductase Inhibitor [YPEHMCL-FCP-TRU REDUCTASE INHIBITOR] Allergy (Severe, Verified 10/30/22 08:39) JOINT PAIN amlodipine [AMLODIPINE] Allergy (Intermediate, Verified 10/30/22 08:39) PALIPITATIONS baclofen [BACLOFEN] Allergy (Intermediate, Verified 10/30/22 08:39) LETHARGY Beta-Blockers (Beta-Adrenergic Bloc Allergy (Intermediate, Verified 10/30/22 08:39) BRADYCARDIA budesonide [From SYMBICORT] Allergy (Intermediate, Verified 10/30/22 08:39) HOARSENESS Chocolate Allergy (Intermediate, Verified 10/30/22 08:39) Itching ezetimibe [From ZETIA] Allergy (Intermediate, Verified 10/30/22 08:39) JOINT PAIN, ELEVATED CPK ibandronate sodium [From BONIVA] Allergy (Intermediate, Verified 10/30/22 08:39) CHEST PAIN latex [LATEX] Allergy (Intermediate, Verified 10/30/22 08:39) RASH-SENSITIVITY lisinopril [LISINOPRIL] Allergy (Intermediate, Verified 10/30/22 08:39) COUGH, really bad cough, cough meloxicam [From MOBIC] Allergy (Intermediate, Verified 10/30/22 08:39) GI UPSET mometasone furoate [From DULERA] Allergy (Intermediate, Verified 10/30/22 08:39) COUGH Penicillins [PENICILLINS] Allergy (Intermediate, Verified 10/30/22 08:39) RASH pregabalin [From LYRICA] Allergy (Intermediate, Verified 10/30/22 08:39) RASH,BLURRED VISION raloxifene [From EVISTA] Allergy (Intermediate, Verified 10/30/22 08:39) GERD sertraline [From ZOLOFT] Allergy (Intermediate, Verified 10/30/22 08:39) SKIN CRAWLING spironolactone [SPIRONOLACTONE] Allergy (Intermediate, Verified 10/30/22 08:39) RASH, ?? psoriasis strawberry [STRAWBERRY] Allergy (Intermediate, Verified 10/30/22 08:39) ITCHING tiotropium [From SPIRIVA WITH HANDIHALER] Allergy (Intermediate, Verified 10/30/22 08:39) RAW THROAT adhesive [ADHESIVE] Allergy (Unknown, Verified 10/30/22 08:39) RASH Atrovent Allergy (Unknown, Verified 10/30/22 08:39) Unknown dexlansoprazole [From DEXILANT] Allergy (Unknown, Verified 10/30/22 08:39) UNKNOWN doxycycline [DOXYCYCLINE] Allergy (Unknown, Verified 10/30/22 08:39) SEVERE NOYOLA, HEARTBURN Doxycycline Hyclate Allergy (Unknown, Verified 10/30/22 08:39) headache esomeprazole [Nexium] Allergy (Unknown, Verified 10/30/22 08:39) Unknown fluticasone [From ADVAIR DISKUS] Allergy (Unknown, Verified 10/30/22 08:39) HTN gabapentin [From NEURONTIN] Allergy (Unknown, Verified 10/30/22 08:39) THROAT TIGHTNESS glucosamine Allergy (Unknown, Verified 10/30/22 08:39) Unknown metoclopramide [From REGLAN] Allergy (Unknown, Verified 10/30/22 08:39) LETHARGY monosodium glutamate [MSG] Allergy (Unknown, Verified 10/30/22 08:39) HEADACHE naproxen [From ALEVE] Allergy (Unknown, Verified 10/30/22 08:39) FLUSH niacin Allergy (Unknown, Verified 10/30/22 08:39) Unknown omeprazole Allergy (Unknown, Verified 10/30/22 08:39) Unknown risedronate sodium [From ACTONEL] Allergy (Unknown, Verified 10/30/22 08:39) UNKNOWN rofecoxib [From Vioxx] Allergy (Unknown, Verified 10/30/22 08:39) ankle swelling salmeterol [From ADVAIR DISKUS] Allergy (Unknown, Verified 10/30/22 08:39) HTN scallops [SCALLOPS] Allergy (Unknown, Verified 10/30/22 08:39) NAUSEA & VOMITING tramadol [TRAMADOL] Allergy (Unknown, Verified 10/30/22 08:39) THROAT TIGHTNESS verapamil [VERAPAMIL] Allergy (Unknown, Verified 10/30/22 08:39) IRREGULAR HEARTBEAT lifitegrast [From Xiidra] Allergy (Verified 10/30/22 08:39) blurred vision, headache, eye swelling fluticasone furoate [From Trelegy Ellipta] Adverse Reaction (Unknown, Verified 10/30/22 08:39) Uknown umeclidinium [From Trelegy Ellipta] Adverse Reaction (Unknown, Verified 10/30/22 08:39) Uknown vilanterol [From Trelegy Ellipta] Adverse Reaction (Unknown, Verified 10/30/22 08:39) Uknown Sulindac Adverse Reaction (Intermediate, Uncoded 10/30/22 08:39) Nausea HPI HPI Comments History of Present Illness Details The patient is a 72-year-old woman with history of asthma in addition to hiatal hernia. Overall her respiratory symptoms have been stable and she was able to get off her maintenance inhaler. She has been having symptoms and she feels is mainly due to hiatal hernia. She has been seen closely by GI. They tried multiple medications in addition to reflux diet. She did try Reglan the resulted in significant side effects. I did tell her that there are other promotility agents she can consider. She understands that having underlying reflux and hiatal hernia can result in worsening respiratory symptoms due to the microaspiration. I did provide the patient again with another reflux diet to make sure she is following the proper diet. We did review her last CT scan of the chest that demonstrated stable pulmonary nodules which was done at [facility]. Otherwise patient is without any other complaints. She still having significant reflux disease and regurgitation. She is followed closely by GI and now going to be followed up with surgery for possible surgical intervention for her persistent symptoms. We again talked about promotility agents, but, does not feel like dose going to work due to the fact that she has a pretty complicated hiatal hernia. We did again review her pulmonary nodules which appear to be stab le for many years which is reassuring. 04/26/2020 the patient is here for pulmo nary follow-up visit. Overall the patient has been doing relatively well from a respiratory status. Denies any significant wheezing or significant cough. She continues to have dyspnea on exertion. Moderate in severity. She continues to have significant reflux symptoms. She did have surgery for her to hernia which was successful in taking care of the hiatal hernia although she still symptomatic. She will follow-up with GI regarding this. In the meantime she is trying to minimize PPIs because of her osteoporosis. She is willing to start Pepcid at nighttime which also help with her allergies. She continues on H1 calvin and also continues on singular. She continues to have daytime drowsiness. The patient does have a history of sleep apnea. Her [place] score still elevated 10/24. She was supposed to have a sleep study but then was postpone due to the pandemic. In addition to that she was supposed to undergo pulmonary function studies to assess her lung capacity. Otherwise patient is without any other complaints. 12/13/2020 the patient is here for pulmo nary follow-up visit. She still compla ining of dyspnea on exertion. [id number] severity. She was evaluated by Cardiology and no significant findings there. She was recently seen by Gastroenterology. She did have an endoscopy demonstrating significant inflammation her GE junction and mild gastritis. Her H pylori was negative. See was switched to PPI she continues to be very faithful with her reflux diet. Patient still however having symptoms. She is having also allergy symptoms at this time. She did go up on the singular. In addition to that she had been on Flovent before but she is no longer taking it. On examination she does have some wheezing that is likely contributing to her dyspnea symptoms. Will try to maximize her respiratory therapy at this time. In addition to that we did the get a CT scan of the chest demonstrating some small new pulmonary nodules based on her CT scan from April 2020. She will need a repeat CT scan April 2021. 04/11/2021 the patient is here for a pulmonary follow-up visit. Overall the patient has been doing relatively well. Does have still some mild dyspnea on exertion. Also gets symptoms of cough and underlying reflux disease. She has been followed closely by Gastroenterology regarding or her GI symptoms. In the meantime we did review her recent CT scan of the chest demonstrating resolution of the 5 mm ground-glass nodular density. Although, now she has 2 new 4 mm ground-glass nodular densities in a different location. Will continue to follow these nodular densities. In the meantime she did follow-up with endocrinology regarding her osteoporosis. She is currently taking Flovent but I do believe she does still need the full dose of 1 puff twice a day. The patient is also scheduled to have back surgery if she gets the okay from Endocrinology. At least from a pulmonary standpoint she is able to proceed with surgery. 10/24/2021 the patient is here for a pulm onary follow-up visit. She is actually doing well from a respiratory status. She was able to wean off her maintenance inhalers. She has not had to use her rescue inhaler. However, she is going to have allergy season right now. She is using her nasal rinsing and her nasal sprays. She is also starting her allergy medicine. She is having significant GI symptoms with reflux disease. She will be undergoing endoscopy soon to further address her symptoms. I do believe that this will potentially aggravate her asthma if it persists. In addition to this the patient stating with significant back pain and neck pain. Currently she is not deemed a surgical candidate. She will follow-up with Neurosurgery when she is better. In the meantime she is being evaluated by pain management. In regards of her CT scan her last CT scan was back in March 2021. We personally reviewed the images. She appears to have some new ground-glass nodular densities primarily on the right side. She has other pulmonary nodules that have been completely stable. Based on the fact that she has new pulmonary nodules she will require CT scan a year from her last 1. Therefore will do a CT scan in 6 months and have follow- up after worse to review. 04/24/2022 the patient is here for pulmon brent follow-up visit. Overall the patient is doing fairly well. She has not had to use her inhalers much. She does have a rescue inhaler that she can use as needed. She also has episodes of chest tightness mainly in the substernal area. Sometimes she associates it with her reflux disease. She continues to be on the medication for the reflux and Country knows to follow reflux diet. Although she continues to have symptoms. Explained to her that sometimes the reflux can result in micro aspirations into the lungs. She does have some changes primarily in the left lower lobe that are suspicious for bronchiolitis which could be due to aspiration. Her last CT scan of the chest was back in April 2021 demonstrating some new 4 mm pulmonary nodules which are subsolid in nature. The other nodules were stable. Will have the patient start CPT with flutter valve to try to clear any mucus at all the airways and plan to repeat the CT scan in 6 months which be 18 month follow-up CT scan for the new nodules. 10/30/2022 a the patient is here for pulm onary follow-up visit. The patient is healing in recovering after having cervical surgery the anterior approach. She had back in June. After she lost her voice for some time. She was having hard time with her breathing or shortness of breath and also chest pain. She was given 2 days of Decadron but no more because the recovery process. The patient was evaluated by ENT and had a laryngoscopy without any significant findings. They recommended speech therapy and also a barium modified barium swallow. She then saw GI and switched over to a regular barium swallow. Question of the metal plate affecting her swallow. As far as her breathing has been okay she has not had to use her rescue inhaler. Although she is concerned about the chest pain. The patient has been sleeping on a positional bed and she does have sleep apnea but she has been maintaining positional therapy. She has been on omeprazole and also Carafate for her reflux disease. We talked about the importance of a reflux diet. Also at the barium swallows okay she can consider a promotility agent. As far as her pulmonary nodules are stable. She does have some bronchitis as within the airways themselves but otherwise clinically stable. After she gets the barium swallow she was having a message for further recommendations based [facility] Medical History Anxiety Asthma CAD (coronary artery disease) Cervical radiculitis Chronic sinusitis COPD (chronic obstructive pulmonary disease) COVID-19 vaccine administered Depression Dizziness Edema Fusion of spine, cervical region GERD (gastroesophageal reflux disease) H/O gastroesophageal reflux (GERD) History of aneurysm History of deviated nasal septum History of panic attacks History of primary hyperparathyroidism History of trigger finger HLD (hyperlipidemia) HTN (hypertension) Medial epicondylitis of left elbow Migraine Non-toxic multinodular goiter FRANCESCA (obstructive sleep apnea) Osteoporosis PTSD (post-traumatic stress disorder) Pulmonary nodules Right groin pain Right inguinal hernia Trigger finger Umbilical pain Surgical History H/O decompression of ulnar nerve History of appendectomy History of cardiac catheterization History of cholecystectomy History of esophagogastroduodenoscopy (EGD) History of eyelid surgery History of hernia repair History of hysterectomy History of lumpectomy of both breasts History of parathyroidectomy Hx of adenoidectomy Hx of cataract surgery Hx of colonoscopy Hx of eye surgery Hx of hand surgery Hx of right inguinal hernia repair Hx of shoulder surgery Hx of tonsillectomy S/P arthroscopic surgery of right knee S/P cubital tunnel release S/P repair of paraesophageal hernia Status post ablation of incompetent vein using laser Family History Father Liver cancer Psoriasis Cancer Mental health disorder Mother Cervical cancer Ovarian cancer Heart attack Substance use disorder Social History Household Members: Children and None Housing: House Alcohol intake: current Alcohol intake frequency: does not drink Patient Tobacco Use Status: Former Tobacco user Quit Date: 1979 e-Cigarette/Vaping Use: Never Used Second Hand Smoke Exposure: No service: No Current occupational status: employed Cognitive needs: No Hearing needs: No Vision needs: No Review of Systems Const Denies daytime sleepiness, Denies difficulty sleeping, Denies night sweats and Reports snoring ENT Denies change in voice, Reports dysphagia, Reports hoarseness, Denies lip swelling, Denies mouth pain, Reports nasal congestion, Reports nasal discharge, Reports post nasal drip, Reports sinus pain, Reports sinus pressure and Denies tongue swelling Card Denies chest pain Resp Reports cough and Reports snoring GI Denies abdominal pain, Reports dysphagia, Reports dyspepsia and Reports heartburn Musc Denies no additional complaints Neuro Denies Neuro-related abnormal movements Psych Denies no additional complaints Jesse/Lymph Denies easy bleeding and Denies lymphadenopathy Aller/Immun Denies lip swelling and Denies tongue swelling Physical Exam Vital Signs: Last Vital Signs Pulse 57 10/30/22 08:36 BP 130/70 10/30/22 08:36 Pulse Ox 98 10/30/22 08:36 Oxygen Delivery Method Room Air 10/30/22 08:36 BMI result Body Mass Index 32.3 Const General: alert Eyes Pupils: Equal, round and reactive pupils present Neck Neck: Yes normal visual inspection, Yes full ROM and Yes no lymphadenopathy Chest Chest palpation & inspection: normal inspection of the chest Resp Auscultation: clear to auscultation bilaterally and no wheezes Cardio Rate: regular rate Rhythm: regular rhythm Heart sounds: S1 normal heart sound present and S2 normal heart sound present GI Palpation (GI): Soft to palpation and nontender Auscultation: normal bowel sounds General: Yes no CVA tenderness Back/Spine/Pelvis Back: no CVA tenderness Skin General skin exam: rashes and/or lesions noted Neuro Cranial nerves: Yes Equal, round and reactive pupils present Immunizations pneumoc 20-gisela conj-dip cr(PF) 0.5 mL IM syringe Performing Provider: Harman Cleary MD Performing Location: [facility] Administered by: Claudia Leone LPN on 10/30/22 09:06 Dose Route Admin Location Dispensed Lot Number Expiration Date [employer] 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 0.5 mL IM Right Deltoid 0.5 mL [id number] 12/11/23 1314-2539-66 [employer] VIS Given Date VIS Provided VIS Publication Date 10/30/22 Single Vaccine 22 Eligibility Eligibility Date Funding Source Not [facility] Eligible 10/30/22 Private Assessment & Plan Assessment & Plan (1) FRANCESCA (obstructive sleep apnea): Code(s): G47.33 - Obstructive sleep apnea (adult) (pediatric) (2) Dyspnea on exertion: Code(s): R06.00 - Dyspnea, unspecified (3) Pulmonary nodules: Code(s): R91.8 - Other nonspecific abnormal finding of lung field (4) GERD (gastroesophageal reflux disease): Code(s): K21.9 - Gastro-esophageal reflux disease without esophagitis Qualifiers: Esophagitis presence: without esophagitis Qualified Code(s): K21.9 - Gastro-esophageal reflux disease without esophagitis (5) Sinusitis: Code(s): J32.9 - Chronic sinusitis, unspecified Qualifiers: Sinusitis location: unspecified location Chronicity: subacute Qualified Code(s): J01.90 - Acute sinusitis, unspecified Plan Continue short-acting beta agonist as needed Reflux diet Barium swallow pending Positional therapy avoiding sleeping back. follow-up in 6 months Orders: Orders Pneumococcal 20 Immunization Today Z23 - Encounter for immunization Coding Level of Care Code Est Pt Level 4 (74829) Diagnoses FRANCESCA (obstructive sleep apnea) G47.33 Dyspnea on exertion R06.00 Pulmonary nodules R91.8 Gastroesophageal reflux disease without esophagitis K21.9 Esophagitis presence: without esophagitis Subacute sinusitis, unspecified location J01.90 Sinusitis location: unspecified location Chronicity: subacute Time Spent (min) 17
== END 2022-10-30 09:05 | disposition home or self-care (01) ==
PROVIDERS: PCP Nurse Practitioner Family; Visit Provider Hospitalist
DX: G47.33 Obstructive sleep apnea (adult) (pediatric) (principal); R06.00 Dyspnea, unspecified; R91.8 Other nonspecific abnormal finding of lung field; K21.9 Gastro-esophageal reflux disease without esophagitis; J01.90 Acute sinusitis, unspecified; Z23 Encounter for immunization
CPT/HCPCS: 99214

== ENCOUNTER → 2022-10-30 08:09 | Outpatient (BNVA) | payer MEDICARE, MEDICAID, SELFPAY | PROVIDERS: Visit Provider Hospitalist | DX: Z23 Encounter for immunization (principal); R06.00 Dyspnea, unspecified; R91.8 Other nonspecific abnormal finding of lung field; G47.33 Obstructive sleep apnea (adult) (pediatric); J01.90 Acute sinusitis, unspecified; K21.9 Gastro-esophageal reflux disease without esophagitis | CPT/HCPCS: 90471; 90677; 99212 ==

== ENCOUNTER 2022-10-31 08:38 | Outpatient (REF) | payer MEDICARE, MEDICAID, SELFPAY ==
--- NOTE | ~2022-10-31 | FL_ITS ---
EXAMINATION: XR FLUOROSCOPY BARIUM SWALLOW WITH AIR CLINICAL INFORMATION: 72-year-old female complaining of gradual loss of voice throughout the day, GERD, hiatus hernia repair x2, and anterior cervical fusion x2 spanning C4-C7 with plate and screw fixation. COMPARISON: 04/21/2020. TECHNIQUE: Fluoroscopic air contrast barium swallow examination was performed utilizing standard techniques with thin and thick barium and effervescent granules. Numerous spot images were obtained. 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 Cholecystectomy clips were noted. A surgical clip is identified abutting the anterior trachea at the level of the thyroid isthmus. Lateral cine images of the oropharynx and hypopharynx demonstrate normal swallow mechanism with normal epiglottic inversion and soft palate elevation. No laryngeal penetration, glottic or subglottic aspiration identified. No nasopharyngeal reflux present. Hypopharyngeal structures appear normal without evidence of mass or diverticulum. There was no significant cricopharyngeal achalasia. There was no significant indentation upon the esophagus by the plate and screw hardware on the lateral swallow cine. On the prone single contrast esophageal images, mild indentation of the bottom of the C6 and C7 surgical plates was noted (refer to cine series 6, image 110). This is of uncertain clinical significance. Dual and single contrast images of the esophagus demonstrate normal caliber, contour, and mucosal pattern. No evidence of stricture, mass, or ulcerations identified. Primary peristaltic wave was normal, however followed by mild tertiary nonpropulsive contractions consistent with mild presbyesophagus. There appears to be a small type I hiatus hernia. Mild gastroesophageal reflux was seen during the course of the examination and on reflux views. Dual contrast and single contrast images of the stomach demonstrated normal contour and mucosal pattern without evidence of mass, ulceration, or other abnormality. Contrast freely passed into the gastric antrum and duodenal bulb without delay. Single and air-contrast images of the duodenal bulb demonstrate no abnormality. The duodenal sweep has a normal appearance, course, and mucosal fold appearance. The imaged proximal jejunum has a normal fold pattern and caliber. FLUOROSCOPY TIME: 3 minutes 7 seconds Number of Spot Images: 5 image capture cine runs; 15 spot images obtained. DOSE AREA PRODUCT: 1924 uGy-m2 (microgray-meter squared) FL/FL barium swallow IMPRESSION: 1. Normal-appearing oral pharyngeal and hypopharyngeal swallow. On the single contrast esophageal cine images, mild indentation of the C6 and C7 anterior plates was noted on the esophagus. 2. Esophagus otherwise normal aside for mild presbyesophagus. 3. Small type I hiatus hernia noted. Mild gastroesophageal reflux to the level of the cindy. 4. Normal stomach, duodenal bulb, duodenal sweep, and proximal jejunum.
== END 2022-10-31 08:39 | disposition home or self-care (01) ==
LOC: HO.XRAY 08:38
PROVIDERS: PCP Nurse Practitioner Family; Visit Provider Nurse Practitioner Family
DX: T17.308A Unspecified foreign body in larynx causing other injury, initial encounter (principal); X58.XXXA Exposure to other specified factors, initial encounter; Y93.9 Activity, unspecified; Y92.9 Unspecified place or not applicable; Y99.9 Unspecified external cause status
CPT/HCPCS: 74220

== ENCOUNTER → 2022-10-31 08:38 | Outpatient (BNV) | payer MEDICARE, MEDICAID, SELFPAY | PROVIDERS: PCP Nurse Practitioner Family; Visit Provider Radiology Diagnostic Radiology | DX: K21.9 Gastro-esophageal reflux disease without esophagitis (principal) | CPT/HCPCS: 74221 ==

== ENCOUNTER 2022-12-25 07:57 | Outpatient (AMB) | payer MEDICARE, MEDICAID, SELFPAY ==
--- NOTE | 2022-12-25 07:59 | A.OFFVIS_ITS ---
Intake Vital Signs 12/25/22 08:00 Height 4 ft 11.96 in Weight 159 lb BMI 31.1 BP 160/82 H Blood Pressure Location Lt brachial Position Sitting Pulse 86 Pulse Source Pulse Oximeter Intake Visit Reasons: f/u osteoporosis/confirmed Intake Note: Patient present today for osteoporosis follow up visit. [employer] Required: No Accompanied by: Self / Same As Patient Allergies Qconjca-XRH-GnC Reductase Inhibitor [[id number]-VLS REDUCTASE INHIBITOR] Allergy (Severe, Verified 12/25/22 08:10) JOINT PAIN amlodipine [AMLODIPINE] Allergy (Intermediate, Verified 12/25/22 08:10) PALIPITATIONS baclofen [BACLOFEN] Allergy (Intermediate, Verified 12/25/22 08:10) LETHARGY Beta-Blockers (Beta-Adrenergic Bloc Allergy (Intermediate, Verified 12/25/22 08:10) BRADYCARDIA budesonide [From SYMBICORT] Allergy (Intermediate, Verified 12/25/22 08:10) HOARSENESS Chocolate Allergy (Intermediate, Verified 12/25/22 08:10) Itching ezetimibe [From ZETIA] Allergy (Intermediate, Verified 12/25/22 08:10) JOINT PAIN, ELEVATED CPK ibandronate sodium [From BONIVA] Allergy (Intermediate, Verified 12/25/22 08:10) CHEST PAIN latex [LATEX] Allergy (Intermediate, Verified 12/25/22 08:10) RASH-SENSITIVITY lisinopril [LISINOPRIL] Allergy (Intermediate, Verified 12/25/22 08:10) COUGH, really bad cough, cough meloxicam [From MOBIC] Allergy (Intermediate, Verified 12/25/22 08:10) GI UPSET mometasone furoate [From DULERA] Allergy (Intermediate, Verified 12/25/22 08:10) COUGH Penicillins [PENICILLINS] Allergy (Intermediate, Verified 12/25/22 08:10) RASH pregabalin [From LYRICA] Allergy (Intermediate, Verified 12/25/22 08:10) RASH,BLURRED VISION raloxifene [From EVISTA] Allergy (Intermediate, Verified 12/25/22 08:10) GERD sertraline [From ZOLOFT] Allergy (Intermediate, Verified 12/25/22 08:10) SKIN CRAWLING spironolactone [SPIRONOLACTONE] Allergy (Intermediate, Verified 12/25/22 08:10) RASH, ?? psoriasis strawberry [STRAWBERRY] Allergy (Intermediate, Verified 12/25/22 08:10) ITCHING tiotropium [From SPIRIVA WITH HANDIHALER] Allergy (Intermediate, Verified 12/25/22 08:10) RAW THROAT adhesive [ADHESIVE] Allergy (Unknown, Verified 12/25/22 08:10) RASH Atrovent Allergy (Unknown, Verified 12/25/22 08:10) Unknown dexlansoprazole [From DEXILANT] Allergy (Unknown, Verified 12/25/22 08:10) UNKNOWN doxycycline [DOXYCYCLINE] Allergy (Unknown, Verified 12/25/22 08:10) SEVERE NOYOLA, HEARTBURN Doxycycline Hyclate Allergy (Unknown, Verified 12/25/22 08:10) headache esomeprazole [Nexium] Allergy (Unknown, Verified 12/25/22 08:10) Unknown fluticasone [From ADVAIR DISKUS] Allergy (Unknown, Verified 12/25/22 08:10) HTN gabapentin [From NEURONTIN] Allergy (Unknown, Verified 12/25/22 08:10) THROAT TIGHTNESS glucosamine Allergy (Unknown, Verified 12/25/22 08:10) Unknown metoclopramide [From REGLAN] Allergy (Unknown, Verified 12/25/22 08:10) LETHARGY monosodium glutamate [MSG] Allergy (Unknown, Verified 12/25/22 08:10) HEADACHE naproxen [From ALEVE] Allergy (Unknown, Verified 12/25/22 08:10) FLUSH niacin Allergy (Unknown, Verified 12/25/22 08:10) Unknown omeprazole Allergy (Unknown, Verified 12/25/22 08:10) Unknown risedronate sodium [From ACTONEL] Allergy (Unknown, Verified 12/25/22 08:10) UNKNOWN rofecoxib [From Vioxx] Allergy (Unknown, Verified 12/25/22 08:10) ankle swelling salmeterol [From ADVAIR DISKUS] Allergy (Unknown, Verified 12/25/22 08:10) HTN scallops [SCALLOPS] Allergy (Unknown, Verified 12/25/22 08:10) NAUSEA & VOMITING tramadol [TRAMADOL] Allergy (Unknown, Verified 12/25/22 08:10) THROAT TIGHTNESS verapamil [VERAPAMIL] Allergy (Unknown, Verified 12/25/22 08:10) IRREGULAR HEARTBEAT lifitegrast [From Xiidra] Allergy (Verified 12/25/22 08:10) blurred vision, headache, eye swelling fluticasone furoate [From Trelegy Ellipta] Adverse Reaction (Unknown, Verified 12/25/22 08:10) Uknown umeclidinium [From Trelegy Ellipta] Adverse Reaction (Unknown, Verified 12/25/22 08:10) Uknown vilanterol [From Trelegy Ellipta] Adverse Reaction (Unknown, Verified 12/25/22 08:10) Uknown Sulindac Adverse Reaction (Intermediate, Uncoded 10/30/22 08:39) Nausea Medication List - Last Reconciled 12/25/22 by Manas Doss MD aspirin (Adult Aspirin Regimen) 81 mg PO DAILY betamethasone dipropionate 0.05% 1 appl topical DIRECTED Bifidobacterium infantis (Align) 4 mg PO DAILY cetirizine (Zyrtec) 10 mg PO DAILY PRN cholecalciferol (vitamin D3) 25 mcg PO DAILY 30 days cyclosporine 0.05% (Restasis) 1 drp ophthalmic (eye) Q12H denosumab (Prolia) 60 mg subcut [id number] docusate sodium (Colace) 100 mg PO BID evolocumab (Repatha SureClick) 140 mg subcut Q2W fluticasone propionate 50 mcg/actuation (Allergy Relief (fluticasone)) 1 spray intranasal Q12H hydrochlorothiazide 12.5 mg PO DAILY 90 days ibuprofen (IBU) 600 mg PO Q8H PRN 90 days levalbuterol tartrate 45 mcg/actuation 2 puffs inhalation DAILY lidocaine 5% 1 patch topical DAILY lorazepam 0.5 mg PO BEDTIME losartan 25 mg PO DAILY 90 days magnesium oxide 500 mg PO DAILY montelukast 10 mg PO DAILY pantoprazole 40 mg PO BID prednisolone acetate 1% 1 drp ophthalmic (eye) QID sucralfate 1 g PO BID 90 days HPI HPI Comments History of Present Illness Details 72 yo female today for fup visit, l for fup NTMNG, osteoporosis. She is feeling well. She is taking Viactiv twice a day and vitamin-D 1000 international units daily. She is currently on Evenity and has had 12 doses Could not tolerate Boniva after 3 wks. Boniva caused position . Transitioning to Prolia today She had side effect with Bisphosphonates. she had chest pain with 2 oral bisphosphonates. Secondary workup was normal except for low urinary calcium but urinary creatinine was low as well. Started Evenity took 2 doses last dose was after booster 4 days later and had gastrointestinal side effects . First dose caused no problem. Patient has h/o of primary hyperparathyroidism, s/p parathyroidectomy 3 and 1/2 on 2012, osteoporosis. she has h/o in situ cervical cancer, treated with hysterectomy. She has extensive FH of cancer, Her sister has Torin's disease, had thyroidectomy. Denies cold or heat intolerance, weight loss or gain, post menopausal, diarrhea, constipation, insomnia, fatigue, dry skin, dysphagia, dyspnea, dysphonia, tremors, + occasional palpitations, denies irritability, anxiety. DEXA scan reviewed over years. 2011 LS BMD 0.963 gm/cm2, Score - 1.7 Femur BMD 0.707 GM/cm2, Score - 2.4 FN R T score -2.7 L -3.0 Forearm BMD 0.698 gm/cm2, T score - 2.1 2013 LS BMD 0.947 gm/cm2, Tscore - 1.8 Forearm BMD 0.684 gm/cm2, Tscore - 2.3 2015 LS BMD 0.947 gm/cm2, Tscore - 1.8 Femur BMD 0.703 gm/cm2, Tscore - 2.4 FN R -2.7 from -2.5, FN L -3.3 from -3.0 Forearm BMD 0.656 gm/cm2, Tscore - 2.6 02/02/18 [facility] LS BMD 0.957 gm/cm2, T-score -1.7 Femur BMD 0.707 gm/cm2, T-score -2.4 Right femoral neck -2.7 , left FN T score -3.0 DEXA 02/18/2020 AP SPINE L1-L2 (excluding L3 and L4): The data of L1-L4 has been changed to exclude the L3 and L4 vertebral bodies, because degenerative changes at these levels may cause overestimation of lumbar spine density. BMD 0.798 g/cm2, Z-score -1.6, T-score -3.1, osteoporosis. LEFT FEMUR, NECK: BMD 0.534 g/cm2, Z-score -2.1, T-score -3.6, osteoporosis. LEFT FEMUR, TOTAL: BMD 0.626 g/cm2, Z-score -1.7, T-score -3.0, osteoporosis. 12/19/17 US thyroid Right Thyroid Lobe: 3.3 x 1.2 x 1.6 cm, volume 3.1 mL. Previously 3.2 x 1.0 x 1.2 cm, volume 2.0 mL. Left Thyroid Lobe: 3.2 x 1.1 x 1.3 cm, volume 2.3 mL. Previously 3.2 x 0.9 x 1.2 cm, volume 1.8 mL. Isthmus: 0.2 cm in maximum AP dimension. Previously 0.3 cm. PARENCHYMA: The gland echotexture is homogeneous. Thyroid vascularity is normal. RIGHT THYROID LOBE: There are 3 nodules seen. 1. Location: Mid/upper pole Size: 0.2 x 0.2 x 0.2 cm. Previous: 0.2 x 0.1 x 0.2 cm. Nodule characteristics: Hypoechoic with smooth margins and no intranodular flow 2. Location: Upper/mid pole Size: 0.2 x 0.2 x 0.2 cm. Previous: 0.2 x 0.2 x 0.1 cm. Nodule characteristics: Hypoechoic with smooth margins and no intranodular flow 3. Location: Medial midpole Size: 0.5 x 0.3 x 0.4 cm. Previous: 0.4 x 0.2 x 0.4 cm. Nodule characteristics: Hypoechoic with smooth margins and no intranodular flow ISTHMUS: No nodules. LEFT THYROID LOBE: There is 1 nodule seen. 1. Location: Midpole Size: 0.4 x 0.3 x 0.3 cm. Previous: 0.3 x 0.3 x 0.2 cm. Nodule characteristics: Hypoechoic with smooth margins and no intranodular flow. NODES: No lymphadenopathy is seen in the tissue surrounding the thyroid gland. She is complaining of some dysphagia Laboratory Tests 10/28/19 12/08/19 06:18 12:32 Creatinine 0.83 Estimated GFR > 60 Calcium 8.6 8.6 Alkaline Phosphata se 112 Albumin 4.1 [facility] Medical History Anxiety Asthma CAD (coronary artery disease) Cervical radiculitis Chronic sinusitis COPD (chronic obstructive pulmonary disease) COVID-19 vaccine administered Depression Dizziness Edema Fusion of spine, cervical region GERD (gastroesophageal reflux disease) H/O gastroesophageal reflux (GERD) History of aneurysm History of deviated nasal septum History of panic attacks History of primary hyperparathyroidism History of trigger finger HLD (hyperlipidemia) HTN (hypertension) Medial epicondylitis of left elbow Migraine Non-toxic multinodular goiter FRANCESCA (obstructive sleep apnea) Osteoporosis PTSD (post-traumatic stress disorder) Pulmonary nodules Right groin pain Right inguinal hernia Trigger finger Umbilical pain Surgical History H/O decompression of ulnar nerve History of appendectomy History of cardiac catheterization History of cholecystectomy History of esophagogastroduodenoscopy (EGD) History of eyelid surgery History of hernia repair History of hysterectomy History of lumpectomy of both breasts History of parathyroidectomy Hx of adenoidectomy Hx of cataract surgery Hx of colonoscopy Hx of eye surgery Hx of hand surgery Hx of right inguinal hernia repair Hx of shoulder surgery Hx of tonsillectomy S/P arthroscopic surgery of right knee S/P cubital tunnel release S/P repair of paraesophageal hernia Status post ablation of incompetent vein using laser Family History Father Liver cancer Psoriasis Cancer Mental health disorder Mother Cervical cancer Ovarian cancer Heart attack Substance use disorder Social History Household Members: Children and None Housing: House Alcohol intake: current Alcohol intake frequency: does not drink Patient Tobacco Use Status: Former Tobacco user Quit Date: 1979 e-Cigarette/Vaping Use: Never Used Second Hand Smoke Exposure: No service: No Current occupational status: employed Cognitive needs: No Hearing needs: No Vision needs: No Assessment & Plan Assessment & Plan (1) Osteoporosis: Code(s): M81.0 - Age-related osteoporosis without current pathological fracture Plan: This 72-year-old white female with a history of osteoporosis previous intolerance to oral bisphosphonates. Secondary workup is negative except for low urinary calcium still low for corrected urinary creatinine. She finished a course of Evenity I did tell is taken extra calcium supplementation Viactiv to make 1800 mg a day total. Will check a basic metabolic panel with calcium , PTH and phosphorusand if normal will give Prolia. She did have a history of primary hyperparathyroidism and had her 3-1/2 gland removal in the past with preservation 1 parathyroid gland. Concerns to check to make sure that she does not have hypoparathyroidism and calcium stable before giving next Prolia dose. If calcium is falling and PTH is low and phosphorus high pointing towards parathyroid failure, may need to start calcitriol at some point. (2) Non-toxic multinodular goiter: Code(s): E04.2 - Nontoxic multinodular goiter Plan: History of multinodular subcentimeter nodules. I do not think nodules are causing her dysphagia. Nodules are subcentimeter in size and do not require follow-up.. She appears to be clinically and biochemically euthyroid (3) History of primary hyperparathyroidism: Code(s): Z86.39 - Personal history of other endocrine, nutritional and metabolic disease Orders: Orders Basic Metabolic Panel Fasting Today E04.2 - Nontoxic multinodular goiter, M81.0 - Age-related osteoporosis without current pathological fracture Phosphorus Today Z86.39 - Personal history of other endocrine, nutritional and metabolic disease Albumin Level Today E04.2 - Nontoxic multinodular goiter, M81.0 - Age-related osteoporosis without current pathological fracture PTHI Today M81.0 - Age-related osteoporosis without current pathological fracture Coding Level of Care Code Est Pt Level 3 (61317) Diagnoses Osteoporosis M81.0 Non-toxic multinodular goiter E04.2 History of primary hyperparathyroidism Z86.39
[2022-12-25 08:00] VITALS: BP 160/82; PULSE 86; BMI 31.1
== END 2022-12-25 08:43 | disposition home or self-care (01) ==
PROVIDERS: PCP Nurse Practitioner Family; Visit Provider Internal Medicine Endocrinology, Diabetes & Metabolism
DX: M81.0 Age-related osteoporosis without current pathological fracture (principal); E04.2 Nontoxic multinodular goiter; Z86.39 Personal history of other endocrine, nutritional and metabolic disease
CPT/HCPCS: 99213

== ENCOUNTER → 2022-12-25 07:57 | Outpatient (BNVA) | payer MEDICARE, MEDICAID, SELFPAY | PROVIDERS: Visit Provider Internal Medicine Endocrinology, Diabetes & Metabolism ==

== ENCOUNTER 2022-12-25 08:34 | Outpatient (REF) | payer MEDICARE, MEDICAID, SELFPAY ==
[2022-12-25 10:49] LABS: Albumin Level 4.2 g/dL (3.5-5.0); Anion Gap 12 (12-20); Blood Urea Nitrogen 12 mg/dL (9-16); Calcium 8.7 mg/dL (8.4-10.2); Carbon Dioxide 30 mmol/L (22-29); Chloride 103 mmol/L (96-108); Estimated Glomerular Filt Rate > 60; Glucose Fasting 92 mg/dL (60-99); Phosphorus 2.7 mg/dL (2.7-4.5); Potassium 3.8 mmol/L (3.3-5.1); Sodium 141 mmol/L (135-145)
[2022-12-27 15:13] LABS: Calcium (PTHI) 8.6 mg/dL (8.6-10.4); PTHI 61 pg/mL (16-77)
== END 2022-12-25 08:35 | disposition home or self-care (01) ==
LOC: HO.10HDL 08:34
PROVIDERS: Visit Provider Internal Medicine Endocrinology, Diabetes & Metabolism
DX: M81.0 Age-related osteoporosis without current pathological fracture (principal); E04.2 Nontoxic multinodular goiter; Z86.39 Personal history of other endocrine, nutritional and metabolic disease; Z79.899 Other long term (current) drug therapy
CPT/HCPCS: 36415; 80048; 82040; 83970; 84100; 96372; 99212; J0897

== ENCOUNTER 2022-12-25 15:18 | Outpatient (AMB) | payer MEDICARE, MEDICAID, SELFPAY ==
--- NOTE | 2022-12-25 15:32 | AM.OFFVISNUR ---
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: Prolia Allergies Fcpiczd-RSQ-AwD Reductase Inhibitor [[id number] REDUCTASE INHIBITOR] Allergy (Severe, Verified 12/25/22 08:10) JOINT PAIN amlodipine [AMLODIPINE] Allergy (Intermediate, Verified 12/25/22 08:10) PALIPITATIONS baclofen [BACLOFEN] Allergy (Intermediate, Verified 12/25/22 08:10) LETHARGY Beta-Blockers (Beta-Adrenergic Bloc Allergy (Intermediate, Verified 12/25/22 08:10) BRADYCARDIA budesonide [From SYMBICORT] Allergy (Intermediate, Verified 12/25/22 08:10) HOARSENESS Chocolate Allergy (Intermediate, Verified 12/25/22 08:10) Itching ezetimibe [From ZETIA] Allergy (Intermediate, Verified 12/25/22 08:10) JOINT PAIN, ELEVATED CPK ibandronate sodium [From BONIVA] Allergy (Intermediate, Verified 12/25/22 08:10) CHEST PAIN latex [LATEX] Allergy (Intermediate, Verified 12/25/22 08:10) RASH-SENSITIVITY lisinopril [LISINOPRIL] Allergy (Intermediate, Verified 12/25/22 08:10) COUGH, really bad cough, cough meloxicam [From MOBIC] Allergy (Intermediate, Verified 12/25/22 08:10) GI UPSET mometasone furoate [From DULERA] Allergy (Intermediate, Verified 12/25/22 08:10) COUGH Penicillins [PENICILLINS] Allergy (Intermediate, Verified 12/25/22 08:10) RASH pregabalin [From LYRICA] Allergy (Intermediate, Verified 12/25/22 08:10) RASH,BLURRED VISION raloxifene [From EVISTA] Allergy (Intermediate, Verified 12/25/22 08:10) GERD sertraline [From ZOLOFT] Allergy (Intermediate, Verified 12/25/22 08:10) SKIN CRAWLING spironolactone [SPIRONOLACTONE] Allergy (Intermediate, Verified 12/25/22 08:10) RASH, ?? psoriasis strawberry [STRAWBERRY] Allergy (Intermediate, Verified 12/25/22 08:10) ITCHING tiotropium [From SPIRIVA WITH HANDIHALER] Allergy (Intermediate, Verified 12/25/22 08:10) RAW THROAT adhesive [ADHESIVE] Allergy (Unknown, Verified 12/25/22 08:10) RASH Atrovent Allergy (Unknown, Verified 12/25/22 08:10) Unknown dexlansoprazole [From DEXILANT] Allergy (Unknown, Verified 12/25/22 08:10) UNKNOWN doxycycline [DOXYCYCLINE] Allergy (Unknown, Verified 12/25/22 08:10) SEVERE NOYOLA, HEARTBURN Doxycycline Hyclate Allergy (Unknown, Verified 12/25/22 08:10) headache esomeprazole [Nexium] Allergy (Unknown, Verified 12/25/22 08:10) Unknown fluticasone [From ADVAIR DISKUS] Allergy (Unknown, Verified 12/25/22 08:10) HTN gabapentin [From NEURONTIN] Allergy (Unknown, Verified 12/25/22 08:10) THROAT TIGHTNESS glucosamine Allergy (Unknown, Verified 12/25/22 08:10) Unknown metoclopramide [From REGLAN] Allergy (Unknown, Verified 12/25/22 08:10) LETHARGY monosodium glutamate [MSG] Allergy (Unknown, Verified 12/25/22 08:10) HEADACHE naproxen [From ALEVE] Allergy (Unknown, Verified 12/25/22 08:10) FLUSH niacin Allergy (Unknown, Verified 12/25/22 08:10) Unknown omeprazole Allergy (Unknown, Verified 12/25/22 08:10) Unknown risedronate sodium [From ACTONEL] Allergy (Unknown, Verified 12/25/22 08:10) UNKNOWN rofecoxib [From Vioxx] Allergy (Unknown, Verified 12/25/22 08:10) ankle swelling salmeterol [From ADVAIR DISKUS] Allergy (Unknown, Verified 12/25/22 08:10) HTN scallops [SCALLOPS] Allergy (Unknown, Verified 12/25/22 08:10) NAUSEA & VOMITING tramadol [TRAMADOL] Allergy (Unknown, Verified 12/25/22 08:10) THROAT TIGHTNESS verapamil [VERAPAMIL] Allergy (Unknown, Verified 12/25/22 08:10) IRREGULAR HEARTBEAT lifitegrast [From Xiidra] Allergy (Verified 12/25/22 08:10) blurred vision, headache, eye swelling fluticasone furoate [From Trelegy Ellipta] Adverse Reaction (Unknown, Verified 12/25/22 08:10) Uknown umeclidinium [From Trelegy Ellipta] Adverse Reaction (Unknown, Verified 12/25/22 08:10) Uknown vilanterol [From Trelegy Ellipta] Adverse Reaction (Unknown, Verified 12/25/22 08:10) Uknown Sulindac Adverse Reaction (Intermediate, Uncoded 10/30/22 08:39) Nausea Nursing Note Patient A&O x 3. Denies pain, rash, dizziness, fever. Presented to office for Prolia injection. Will get next injection at her 6 month f/u with Dr. Doss on 06/25/2023. Office Meds Prolia 60 mg/mL subcutaneous syringe Performing Provider: Manas Doss MD [place] [facility] Administered by: Nikhil Noe RN on 12/25/22 15:32 Dose Route Admin Location Dispensed Lot Number Expiration Date [facility] [employer] 60 mg subcut L arm 1 mL [id number] 04/09/25 [facility] Coding Assessment & Plan Assessment & Plan Orders: Orders AMB Denosumab Injection Patient Supplied Today M81.0 - Age-related osteoporosis without current pathological fracture
== END 2022-12-25 15:35 | disposition home or self-care (01) ==
PROVIDERS: PCP Nurse Practitioner Family; Visit Provider Internal Medicine Endocrinology, Diabetes & Metabolism
DX: M81.0 Age-related osteoporosis without current pathological fracture (principal)

== ENCOUNTER 2023-01-24 08:47 | Outpatient (AMB) | payer MEDICARE, MEDICAID, SELFPAY ==
[2023-01-24 08:55] VITALS: BP 118/60; PULSE 61; O2SAT 98; BMI 31.5
--- NOTE | 2023-01-24 08:55 | A.OFFVIS_ITS ---
Intake Vital Signs 01/24/23 08:55 Height 4 ft 11 in Weight 156 lb BMI 31.5 BP 118/60 Blood Pressure Location Lt brachial Position Sitting Pulse 61 Pulse Source Pulse Oximeter Pulse Oximetry (%) 98 Oxygen Delivery Method Room Air Intake Visit Reasons: Dyspnea Ear Nose Throat Surgeon Required: No Allergies Ukgvkri-EDJ-IzG Reductase Inhibitor [[id number] REDUCTASE INHIBITOR] Allergy (Severe, Verified 01/24/23 09:34) JOINT PAIN amlodipine [AMLODIPINE] Allergy (Intermediate, Verified 01/24/23 09:34) PALIPITATIONS baclofen [BACLOFEN] Allergy (Intermediate, Verified 01/24/23 09:34) LETHARGY Beta-Blockers (Beta-Adrenergic Bloc Allergy (Intermediate, Verified 01/24/23 09:34) BRADYCARDIA budesonide [From SYMBICORT] Allergy (Intermediate, Verified 01/24/23:34) HOARSENESS Chocolate Allergy (Intermediate, Verified 01/24/23 09:34) Itching ezetimibe [From ZETIA] Allergy (Intermediate, Verified 01/24/23:34) JOINT PAIN, ELEVATED CPK ibandronate sodium [From BONIVA] Allergy (Intermediate, Verified 01/24/23 09:34) CHEST PAIN latex [LATEX] Allergy (Intermediate, Verified 01/24/23 09:34) RASH-SENSITIVITY lisinopril [LISINOPRIL] Allergy (Intermediate, Verified 01/24/23 09:34) COUGH, really bad cough, cough meloxicam [From MOBIC] Allergy (Intermediate, Verified 01/24/23 09:34) GI UPSET mometasone furoate [From DULERA] Allergy (Intermediate, Verified 01/24/23 09:34) COUGH Penicillins [PENICILLINS] Allergy (Intermediate, Verified 01/24/23 09:34) RASH pregabalin [From LYRICA] Allergy (Intermediate, Verified 01/24/23 09:34) RASH,BLURRED VISION raloxifene [From EVISTA] Allergy (Intermediate, Verified 01/24/23 09:34) GERD sertraline [From ZOLOFT] Allergy (Intermediate, Verified 01/24/23 09:34) SKIN CRAWLING spironolactone [SPIRONOLACTONE] Allergy (Intermediate, Verified 01/24/23 09:34) RASH, ?? psoriasis strawberry [STRAWBERRY] Allergy (Intermediate, Verified 01/24/23 09:34) ITCHING tiotropium [From SPIRIVA WITH HANDIHALER] Allergy (Intermediate, Verified 01/24/23 09:34) RAW THROAT adhesive [ADHESIVE] Allergy (Unknown, Verified 01/24/23 09:34) RASH Atrovent Allergy (Unknown, Verified 01/24/23 09:34) Unknown dexlansoprazole [From DEXILANT] Allergy (Unknown, Verified 01/24/23 09:34) UNKNOWN doxycycline [DOXYCYCLINE] Allergy (Unknown, Verified 01/24/23 09:34) SEVERE NOYOLA, HEARTBURN Doxycycline Hyclate Allergy (Unknown, Verified 01/24/23 09:34) headache esomeprazole [Nexium] Allergy (Unknown, Verified 01/24/23 09:34) Unknown fluticasone [From ADVAIR DISKUS] Allergy (Unknown, Verified 01/24/23 09:34) HTN gabapentin [From NEURONTIN] Allergy (Unknown, Verified 01/24/23 09:34) THROAT TIGHTNESS glucosamine Allergy (Unknown, Verified 01/24/23 09:34) Unknown metoclopramide [From REGLAN] Allergy (Unknown, Verified 01/24/23 09:34) LETHARGY monosodium glutamate [MSG] Allergy (Unknown, Verified 01/24/23 09:34) HEADACHE naproxen [From ALEVE] Allergy (Unknown, Verified 01/24/23 09:34) FLUSH niacin Allergy (Unknown, Verified 01/24/23 09:34) Unknown omeprazole Allergy (Unknown, Verified 01/24/23 09:34) Unknown risedronate sodium [From ACTONEL] Allergy (Unknown, Verified 01/24/23 09:34) UNKNOWN rofecoxib [From Vioxx] Allergy (Unknown, Verified 01/24/23 09:34) ankle swelling salmeterol [From ADVAIR DISKUS] Allergy (Unknown, Verified 01/24/23 09:34) HTN scallops [SCALLOPS] Allergy (Unknown, Verified 01/24/23 09:34) NAUSEA & VOMITING tramadol [TRAMADOL] Allergy (Unknown, Verified 01/24/23 09:34) THROAT TIGHTNESS verapamil [VERAPAMIL] Allergy (Unknown, Verified 01/24/23 09:34) IRREGULAR HEARTBEAT lifitegrast [From Xiidra] Allergy (Verified 01/24/23 09:34) blurred vision, headache, eye swelling fluticasone furoate [From Trelegy Ellipta] Adverse Reaction (Unknown, Verified 01/24/23 09:34) Uknown umeclidinium [From Trelegy Ellipta] Adverse Reaction (Unknown, Verified 01/24/23 09:34) Uknown vilanterol [From Trelegy Ellipta] Adverse Reaction (Unknown, Verified 01/24/23 09:34) Uknown Sulindac Adverse Reaction (Intermediate, Uncoded 01/24/23 08:58) Nausea HPI HPI Comments History of Present Illness Details The patient is a 72-year-old woman with history of asthma in addition to hiatal hernia. Overall her respiratory symptoms have been stable and she was able to get off her maintenance inhaler. She has been having symptoms and she feels is mainly due to hiatal hernia. She has been seen closely by GI. They tried multiple medications in addition to reflux diet. She did try Reglan the resulted in significant side effects. I did tell her that there are other promotility agents she can consider. She understands that having underlying re flux and hiatal hernia can result in worsening respiratory symptoms due to the microaspiration. I did provide the patient again with another reflux diet to make sure she is following the proper diet. We did review her last CT scan of the chest that demonstrated stable pulmonary nodules which was done at [facility]. Otherwise patient is without any other complaints. She still having significant reflux disease and regurgitation. She is followed closely by GI and now going to be followed up with surgery for possible surgical intervention for her persistent symptoms. We again talked about promotility agents, but, does not feel like dose going to work due to the fact that she has a pretty complicated hiatal hernia. We did again review her pulmonary nodules which appear to be stable for many years which is reassuring. 04/24/2022 the patient is here for pulmon brent follow-up visit. Overall the patient is doing fairly well. She has not had to use her inhalers much. She does have a rescue inhaler that she can use as needed. She also has episodes of chest tightness mainly in the substernal area. Sometimes she associates it with her reflux disease. She continues to be on the medication for the reflux and Country knows to follow reflux diet. Although she continues to have symptoms. Explained to her that sometimes the reflux can result in micro aspirations into the lungs. She does have some changes primarily in the left lower lobe that are suspicious for bronchiolitis which could be due to aspiration. Her last CT scan of the chest was back in April 2021 demonstrating some new 4 mm pulmonary nodules which are subsolid in nature. The other nodules were stable. Will have the patient start CPT with flutter valve to try to clear any mucus at all the airways and plan to repeat the CT scan in 6 months which be 18 month follow-up CT scan for the new nodules. 10/30/2022 a the patient is here for pulm onary follow-up visit. The patient is healing in recovering after having cervical surgery the anterior approach. She had back in June. After she lost her voice for some time. She was having hard time with her breathing or shortness of breath and also chest pain. She was given 2 days of Decadron but no more because the recovery process. The patient was evaluated by ENT and had a laryngoscopy without any significant findings. They recommended speech therapy and also a barium modified barium swallow. She then saw GI and switched over to a regular barium swallow. Question of the metal plate affecting her swallow. As far as her breathing has been okay she has not had to use her rescue inhaler. Although she is concerned about the chest pain. The patient has been sleeping on a positional bed and she does have sleep apnea but she has been maintaining positional therapy. She has been on omeprazole and also Carafate for her reflux disease. We talked about the importance of a reflux diet. Also at the barium swallows okay she can consider a promotility agent. As far as her pulmonary nodules are stable. She does have some bronchitis as within the airways themselves but otherwise clinically stable. After she gets the barium swallow she was having a message for further recommendations. 01/25/2023 the patient is here for a pul monary follow-up visit. She is doing relatively well from a respiratory status. She has been using the Xopenex as needed. Typically she has reflux issues is subsequently the reflux may exacerbate her breathing. Her rescue inhaler does help adjust partially. She is wondering if she can go back on QVAR. She were seemed to also help her. She is changing insurances so therefore may be better covered. I will go ahead and set of the QVAR again that she can use as prescribed. In addition to that she will be seen the GI doctor soon. She still having issues with reflux and also having issues with dysphagia. We also looked at her last CT scan that was done back in September 2022. It is reassuring that her pulmonary nodules are stable. She did have some slight inflammation of the right upper lung area suggesting some airways disease but it was minimal. No further imaging at this time. We will have her discuss additional imaging during the next visit. [facility] Medical History Anxiety Asthma CAD (coronary artery disease) Cervical radiculitis Chronic sinusitis COPD (chronic obstructive pulmonary disease) COVID-19 vaccine administered Depression Dizziness Edema Fusion of spine, cervical region GERD (gastroesophageal reflux disease) H/O gastroesophageal reflux (GERD) History of aneurysm History of deviated nasal septum History of panic attacks History of primary hyperparathyroidism History of trigger finger HLD (hyperlipidemia) HTN (hypertension) Medial epicondylitis of left elbow Migraine Non-toxic multinodular goiter FRANCESCA (obstructive sleep apnea) Osteoporosis PTSD (post-traumatic stress disorder) Pulmonary nodules Right groin pain Right inguinal hernia Trigger finger Umbilical pain Surgical History Hx of hand surgery Hx of right inguinal hernia repair History of hernia repair Hx of colonoscopy History of esophagogastroduodenoscopy (EGD) S/P repair of paraesophageal hernia H/O decompression of ulnar nerve Status post ablation of incompetent vein using laser History of cardiac catheterization History of eyelid surgery History of appendectomy History of parathyroidectomy History of cholecystectomy Hx of cataract surgery Hx of shoulder surgery S/P cubital tunnel release S/P arthroscopic surgery of right knee History of lumpectomy of both breasts History of hysterectomy Hx of adenoidectomy Hx of tonsillectomy Hx of eye surgery Family History Father Liver cancer Psoriasis Cancer Mental health disorder Mother Cervical cancer Ovarian cancer Heart attack Substance use disorder Social History Household Members: Children and None Housing: House Alcohol intake: current Alcohol intake frequency: does not drink Patient Tobacco Use Status: Former Tobacco user Quit Date: 1979 e-Cigarette/Vaping Use: Never Used Second Hand Smoke Exposure: No service: No Current occupational status: employed Cognitive needs: No Hearing needs: No Vision needs: No Review of Systems Const Denies daytime sleepiness, Denies difficulty sleeping, Denies night sweats and Reports snoring ENT Denies change in voice, Reports dysphagia, Reports hoarseness, Denies lip swelling, Denies mouth pain, Reports nasal congestion, Reports nasal discharge, Reports post nasal drip, Reports sinus pain, Reports sinus pressure and Denies tongue swelling Card Denies chest pain Resp Reports cough and Reports snoring GI Denies abdominal pain, Reports dysphagia, Reports dyspepsia and Reports heartburn Musc Denies no additional complaints Neuro Denies Neuro-related abnormal movements Psych Denies no additional complaints Jesse/Lymph Denies easy bleeding and Denies lymphadenopathy Aller/Immun Denies lip swelling and Denies tongue swelling Physical Exam Vital Signs: Last Vital Signs Pulse 61 01/24/23 08:55 BP 118/60 01/24/23 08:55 Pulse Ox 98 01/24/23 08:55 Oxygen Delivery Method Room Air 01/24/23 08:55 BMI result Body Mass Index 31.5 Const General: alert Eyes Pupils: Equal, round and reactive pupils present Neck Neck: Yes normal visual inspection, Yes full ROM and Yes no lymphadenopathy Chest Chest palpation & inspection: normal inspection of the chest Resp Auscultation: clear to auscultation bilaterally and no wheezes Cardio Rate: regular rate Rhythm: regular rhythm Heart sounds: S1 normal heart sound present and S2 normal heart sound present GI Palpation (GI): Soft to palpation and nontender Auscultation: normal bowel sounds General: Yes no CVA tenderness Back/Spine/Pelvis Back: no CVA tenderness Skin General skin exam: rashes and/or lesions noted Neuro Cranial nerves: Yes Equal, round and reactive pupils present Assessment & Plan Assessment & Plan (1) FRANCESCA (obstructive sleep apnea): Code(s): G47.33 - Obstructive sleep apnea (adult) (pediatric) (2) Dyspnea on exertion: Code(s): R06.00 - Dyspnea, unspecified (3) Pulmonary nodules: Code(s): R91.8 - Other nonspecific abnormal finding of lung field (4) GERD (gastroesophageal reflux disease): Code(s): K21.9 - Gastro-esophageal reflux disease without esophagitis Qualifiers: Esophagitis presence: without esophagitis Qualified Code(s): K21.9 - Gastro-esophageal reflux disease without esophagitis Plan Continue short-acting beta agonist as needed (xopenex) start QVAR Reflux diet Positional therapy avoiding sleeping back. follow-up in 6 months Medications: New beclomethasone dipropionate 80 mcg/actuation (Qvar RediHaler) 1 inh inhalation BID 10.6 grams 11RF Coding Level of Care Code Est Pt Level 4 (08624) Diagnoses FRANCESCA (obstructive sleep apnea) G47.33 Dyspnea on exertion R06.00 Pulmonary nodules R91.8 Gastroesophageal reflux disease without esophagitis K21.9 Esophagitis presence: without esophagitis Time Spent (min) 17
== END 2023-01-24 09:24 | disposition home or self-care (01) ==
PROVIDERS: PCP Nurse Practitioner Family; Referring Provider Nurse Practitioner Family; Visit Provider Hospitalist
DX: G47.33 Obstructive sleep apnea (adult) (pediatric) (principal); R06.00 Dyspnea, unspecified; R91.8 Other nonspecific abnormal finding of lung field; K21.9 Gastro-esophageal reflux disease without esophagitis
CPT/HCPCS: 99214

== ENCOUNTER 2023-01-24 08:47 | Outpatient (REF) | payer MEDICARE, MEDICAID, SELFPAY ==
[2023-01-31 15:24] LABS: Acetylcholine Receptor Binding <0.30 nmol/L
[2023-02-04 17:57] LABS: Acetylcholine Recep Modulating 14
[2023-02-05 20:28] LABS: Acetylcholine Recept. Blocking <15 (<15)
== END 2023-01-24 08:48 | disposition home or self-care (01) ==
LOC: HO.LAB 08:47
PROVIDERS: Absent Provider Internal Medicine Gastroenterology; PCP Nurse Practitioner Family; Visit Provider Hospitalist
DX: G70.00 Myasthenia gravis without (acute) exacerbation (principal); J45.909 Unspecified asthma, uncomplicated; K21.9 Gastro-esophageal reflux disease without esophagitis; K44.9 Diaphragmatic hernia without obstruction or gangrene; G47.33 Obstructive sleep apnea (adult) (pediatric); R06.00 Dyspnea, unspecified; R91.8 Other nonspecific abnormal finding of lung field
CPT/HCPCS: 36415; 83519; 99212

== ENCOUNTER 2023-01-24 09:24 | Outpatient (AMB) | payer MEDICARE, MEDICAID, SELFPAY ==
--- NOTE | 2023-01-24 09:35 | A.OFFVIS_ITS ---
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: f/u upper gi series and hernia Intake Note: Patient follow up for upper GI series and hernia. Patient cc: Nausea, esophageal discomfort with food, loosing voice, abdominal discomfort with bloating, gassy, acid reflex and between loose BM and constipation. Change Management Specialist Required: No Accompanied by: Self / Same As Patient Allergies [id number] Reductase Inhibitor [[id number] REDUCTASE INHIBITOR] Allergy (Severe, Verified 01/24/23 09:34) JOINT PAIN amlodipine [AMLODIPINE] Allergy (Intermediate, Verified 01/24/23:34) PALIPITATIONS baclofen [BACLOFEN] Allergy (Intermediate, Verified 01/24/23:34) LETHARGY Beta-Blockers (Beta-Adrenergic Bloc Allergy (Intermediate, Verified 01/24/23:34) BRADYCARDIA budesonide [From SYMBICORT] Allergy (Intermediate, Verified 01/24/23:34) HOARSENESS Chocolate Allergy (Intermediate, Verified 01/24/23 09:34) Itching ezetimibe [From ZETIA] Allergy (Intermediate, Verified 01/24/23:34) JOINT PAIN, ELEVATED CPK ibandronate sodium [From BONIVA] Allergy (Intermediate, Verified 01/24/23 09:34) CHEST PAIN latex [LATEX] Allergy (Intermediate, Verified 01/24/23 09:34) RASH-SENSITIVITY lisinopril [LISINOPRIL] Allergy (Intermediate, Verified 01/24/23 09:34) COUGH, really bad cough, cough meloxicam [From MOBIC] Allergy (Intermediate, Verified 01/24/23 09:34) GI UPSET mometasone furoate [From DULERA] Allergy (Intermediate, Verified 01/24/23 09:34) COUGH Penicillins [PENICILLINS] Allergy (Intermediate, Verified 01/24/23 09:34) RASH pregabalin [From LYRICA] Allergy (Intermediate, Verified 01/24/23 09:34) RASH,BLURRED VISION raloxifene [From EVISTA] Allergy (Intermediate, Verified 01/24/23 09:34) GERD sertraline [From ZOLOFT] Allergy (Intermediate, Verified 01/24/23 09:34) SKIN CRAWLING spironolactone [SPIRONOLACTONE] Allergy (Intermediate, Verified 01/24/23 09:34) RASH, ?? psoriasis strawberry [STRAWBERRY] Allergy (Intermediate, Verified 01/24/23 09:34) ITCHING tiotropium [From SPIRIVA WITH HANDIHALER] Allergy (Intermediate, Verified 01/24/23:34) RAW THROAT adhesive [ADHESIVE] Allergy (Unknown, Verified 01/24/23:34) RASH Atrovent Allergy (Unknown, Verified 01/24/23 09:34) Unknown dexlansoprazole [From DEXILANT] Allergy (Unknown, Verified 01/24/23:34) UNKNOWN doxycycline [DOXYCYCLINE] Allergy (Unknown, Verified 01/24/23 09:34) SEVERE NOYOLA, HEARTBURN Doxycycline Hyclate Allergy (Unknown, Verified 01/24/23 09:34) headache esomeprazole [Nexium] Allergy (Unknown, Verified 01/24/23:34) Unknown fluticasone [From ADVAIR DISKUS] Allergy (Unknown, Verified 01/24/23 09:34) HTN gabapentin [From NEURONTIN] Allergy (Unknown, Verified 01/24/23 09:34) THROAT TIGHTNESS glucosamine Allergy (Unknown, Verified 01/24/23 09:34) Unknown metoclopramide [From REGLAN] Allergy (Unknown, Verified 01/24/23 09:34) LETHARGY monosodium glutamate [MSG] Allergy (Unknown, Verified 01/24/23:34) HEADACHE naproxen [From ALEVE] Allergy (Unknown, Verified 01/24/23:34) FLUSH niacin Allergy (Unknown, Verified 01/24/23 09:34) Unknown omeprazole Allergy (Unknown, Verified 01/24/23 09:34) Unknown risedronate sodium [From ACTONEL] Allergy (Unknown, Verified 01/24/23 09:34) UNKNOWN rofecoxib [From Vioxx] Allergy (Unknown, Verified 01/24/23 09:34) ankle swelling salmeterol [From ADVAIR DISKUS] Allergy (Unknown, Verified 01/24/23 09:34) HTN scallops [SCALLOPS] Allergy (Unknown, Verified 01/24/23 09:34) NAUSEA & VOMITING tramadol [TRAMADOL] Allergy (Unknown, Verified 01/24/23 09:34) THROAT TIGHTNESS verapamil [VERAPAMIL] Allergy (Unknown, Verified 01/24/23 09:34) IRREGULAR HEARTBEAT lifitegrast [From Xiidra] Allergy (Verified 01/24/23 09:34) blurred vision, headache, eye swelling fluticasone furoate [From Trelegy Ellipta] Adverse Reaction (Unknown, Verified 01/24/23 09:34) Uknown umeclidinium [From Trelegy Ellipta] Adverse Reaction (Unknown, Verified 01/24/23 09:34) Uknown vilanterol [From Trelegy Ellipta] Adverse Reaction (Unknown, Verified 01/24/23 09:34) Uknown Sulindac Adverse Reaction (Intermediate, Uncoded 01/24/23 08:58) Nausea HPI f/u upper gi series and hernia HPI Details 72 yr old f here for f/u RECAP: seen by May initially due to GERD neg caridac eval using wedge pillows she has failed omeprazole, Nexium, Dexilant, and Gaviscon. She has done the best on Protonix and takes it twice a day about 3 times a week she had ba swallow 2015- pill was ok, reflux noted, small sliding hiatal hernia repeat GI series 11/2018--same as above, small bowel was normal EGD- with dilation- helped her dysphagia, 4 cm hiatal hernia noted. mild gastritis she had ongoing sx with regurg, vomtiing, and burping advised on SALT consult for aerophagia trial of zegrid and pepcid combo At f/u visit she was still on pantoprazole bid and gas x or tums otherwise vomiting was better but still had breakthru burping, regurgitation, and sob if she bends forward she was also coughing after eating some ruq and epigastric discomfort still has trouble food sticking occ she did have one episode of blood noted in stool, on wiping, slight after having a nose bleed and coughing some blood, colonoscopy 2017 with diverticulosis, no mention made of hemorrhoids she does have nose bleeds on and off maybe once a week, uses 3-5 tissues has afrin at home CBC was good with HGB 14 g/dl sigmoidoscopy with grade II internal hemorrhoids, and severe diverticulosis, fair prep, no blood seen in colon u/s liver 03/2019-- fatty liver, hepatomegaly GES 03/2019--normal emptying she was referred to Dr Del Rosario for lap repair of hiatal hernia 09/2019 and did well I ordered CT scan for groin pain revealed fat containing inguinal hernias, awaiting surgical repair by Dr Carson of right side she had noticed she is going to bathroom more often, she has urgency she was still taking align and Mag, Advised to stop Mag supplements, and increase fiber intake Ba swallow-- 04/2020--normal EGD 11/30-- gastritis, esophagitis bx: moderate inflammation GEJ switched from pepcid to PPI She had repeat EGD and colonoscopy Endoscopy Findings: slightly lax LES gastritis Colonoscopy Findings internal hemorrhoids diverticular disease erosive ileitis Path: GEJ --mild chronic inflammation, focal ileitis, colon bx normal prior to endoscopies she had just commenced celebrix, stopped ibuprofen--for spinal pain and hand pain Ba swallow- mild reflux , normal swallow, no pill given INTERIM: she was intubated for neck surgery since then she has noted more hoarseness and reflux she feesl voice weak by end of the day dion feels her hiatal hernia is back when she eats and swallows she feels gurgling and bubble sensation in her lower chest can affect her breathing she has issues with dysphagia and foods getting stuck EXAM: voice weak with talking for long GENERAL: The patient is well developed and nontoxic. VITAL SIGNS:see workflow HEENT: Nonicteric sclerae, PERRLA, EOMI. Oropharynx clear. Moist mucous membranes. Conjunctivae appear well perfused. No thyroid mass. CHEST: Chest wall is nontender. HEART: Regular rate and rhythm without murmurs. LUNGS: Clear to auscultation bilaterally. ABDOMEN: Soft, positive bowel sounds, nontender, no organomegaly.no flank tenderness SKIN: No rash, no excessive bruising, petechiae, or purpura. NEUROLOGIC: Cranial nerves II-XII intact without motor/sensory deficit. Assessment & Plan 1/ GERD, did seem to be controlled at on e point but now not so much, likely due to lax LES--ddx: MG 2/ severe diverticulosis causing LLQ madina n and discomfort--not an issue at this time 3/ focal ileitis prob 2/2 nsaids but can t stop due to pain issues--not activ eissue Plan: 1/ cont with PPI and get EGD, warner araiza also might consider ARAT again 2/ check ab for MG PFSH Medical History (Reviewed 09/18/22 @ 08:24 by Sachin Linares [facility]) Anxiety Asthma CAD (coronary artery disease) Cervical radiculitis Chronic sinusitis COPD (chronic obstructive pulmonary disease) COVID-19 vaccine administered Depression Dizziness Edema Fusion of spine, cervical region GERD (gastroesophageal reflux disease) H/O gastroesophageal reflux (GERD) History of aneurysm History of deviated nasal septum History of panic attacks History of primary hyperparathyroidism History of trigger finger HLD (hyperlipidemia) HTN (hypertension) Medial epicondylitis of left elbow Migraine Non-toxic multinodular goiter FRANCESCA (obstructive sleep apnea) Osteoporosis PTSD (post-traumatic stress disorder) Pulmonary nodules Right groin pain Right inguinal hernia Trigger finger Umbilical pain Surgical History Hx of hand surgery Hx of right inguinal hernia repair History of hernia repair Hx of colonoscopy History of esophagogastroduodenoscopy (EGD) S/P repair of paraesophageal hernia H/O decompression of ulnar nerve Status post ablation of incompetent vein using laser History of cardiac catheterization History of eyelid surgery History of appendectomy History of parathyroidectomy History of cholecystectomy Hx of cataract surgery Hx of shoulder surgery S/P cubital tunnel release S/P arthroscopic surgery of right knee History of lumpectomy of both breasts History of hysterectomy Hx of adenoidectomy Hx of tonsillectomy Hx of eye surgery Family History Father Liver cancer Psoriasis Cancer Mental health disorder Mother Cervical cancer Ovarian cancer Heart attack Substance use disorder Social History Household Members: Children and None Housing: House Alcohol intake: current Alcohol intake frequency: does not drink Patient Tobacco Use Status: Former Tobacco user Quit Date: 1979 e-Cigarette/Vaping Use: Never Used Second Hand Smoke Exposure: No service: No Current occupational status: employed Cognitive needs: No Hearing needs: No Vision needs: No Assessment & Plan Assessment & Plan (1) Myasthenia gravis: Code(s): G70.00 - Myasthenia gravis without (acute) exacerbation Plan: Assessment & Plan 1/ GERD, did seem to be controlled at one point but now not so much, likely due to lax LES--ddx: MG 2/ severe diverticulosis causing LLQ pain and discomfort--not an issue at this time 3/ focal ileitis prob 2/2 nsaids but cant stop due to pain issues--not activ ronal Plan: 1/ cont with PPI and get EGD, balloon dilaiton also might consider ARAT again Orders: Orders Acetylcholine Telecommunicator Modulating Today G70.00 - Myasthenia gravis without (acute) exacerbation Acetylcholine Receptor Binding Today G70.00 - Myasthenia gravis without (acute) exacerbation Acetylcholine Recept. Blocking Today G70.00 - Myasthenia gravis without (acute) exacerbation Coding Level of Care Code Est Pt Level 4 (96930) Diagnoses Myasthenia gravis G70.00
== END 2023-01-24 10:31 | disposition home or self-care (01) ==
PROVIDERS: PCP Nurse Practitioner Family; Visit Provider Internal Medicine Gastroenterology
DX: G70.00 Myasthenia gravis without (acute) exacerbation (principal)
CPT/HCPCS: 99214

== ENCOUNTER 2023-02-05 09:25 | Day surgery (SDC) | payer MEDICARE, MEDICAID, SELFPAY ==
--- NOTE | 2023-02-05 09:18 | P.CONAN_ITS ---
HPI - Anesthesia Eval Consult details Narrative: EGD with dilatation PMFSH Active Problems Active Problems: All Active Problems (Updated 01/24/23 @ 10:12 by Elton Garcia MD) Myasthenia gravis (Acute) Choking (Acute) Postmenopausal (Acute) Physical exam (Acute) Cervical myofascial pain syndrome (Acute) Ankle pain, right (Acute) Hand pain, right (Acute) Fall (on) (from) other stairs and steps, initial encounter (Acute) Allergies (Acute) Sprain of right ankle (Acute) PVCs (premature ventricular contractions) (Acute) Sinusitis (Acute) Greater trochanteric pain syndrome (Acute) Sacroiliac joint pain (Acute) White coat syndrome with diagnosis of hypertension (Acute) Chronic left sacroiliac joint pain (Acute) Lumbar degenerative disc disease (Acute) Lumbar spondylosis (Acute) Lumbar post-laminectomy syndrome (Acute) Right hip pain (Acute) Microscopic hematuria (Acute) Elevated alkaline phosphatase level (Acute) Adverse reaction to COVID-19 vaccine (Acute) Fatigue (Acute) Nausea & vomiting (Acute) Occipital neuralgia of left side (Acute) Failed back syndrome of cervical spine (Acute) Cervical spondylosis (Acute) Muscle spasm (Acute) HTN (hypertension) (Acute) Right trigger finger (Acute) Urinary tract infection (Acute) Upper respiratory tract infection (Acute) Right groin pain (Acute) Cervical stenosis of spine (Acute) Cervical radiculitis (Acute) Varicose veins of left lower extremity with inflammation (Acute) Allergies (Acute) Chronic sinusitis (Acute) Inguinal hernia (Acute) Rectal urgency (Acute) Screening for breast cancer (Acute) Hyperlipidemia (Acute) Atypical chest pain (Acute) Dyspnea on exertion (Acute) Bronchiolitis (Acute) Osteoporosis (Acute) Headache (Acute) Varicose veins of right lower extremity with inflammation (Acute) Arthralgia (Acute) Urinary frequency (Acute) Fatigue (Acute) GERD (gastroesophageal reflux disease) (Acute) FRANCESCA (obstructive sleep apnea) (Acute) CAD (coronary artery disease) (Acute) History of primary hyperparathyroidism (Acute) Non-toxic multinodular goiter (Acute) Osteoporosis (Acute) Pulmonary nodules (Acute) H/O gastroesophageal reflux (GERD) (Acute) Right inguinal hernia (Acute) Anxiety (Acute) Edema (Acute) Dizziness (Acute) Past Medical History Medical History Anxiety Asthma CAD (coronary artery disease) Cervical radiculitis Chronic sinusitis COPD (chronic obstructive pulmonary disease) COVID-19 vaccine administered Depression Dizziness Edema Fusion of spine, cervical region GERD (gastroesophageal reflux disease) H/O gastroesophageal reflux (GERD) History of aneurysm History of deviated nasal septum History of panic attacks History of primary hyperparathyroidism History of trigger finger HLD (hyperlipidemia) HTN (hypertension) Medial epicondylitis of left elbow Migraine Non-toxic multinodular goiter FRANCESCA (obstructive sleep apnea) Osteoporosis PTSD (post-traumatic stress disorder) Pulmonary nodules Right groin pain Right inguinal hernia Trigger finger Umbilical pain Family History Family History Father Liver cancer Psoriasis Cancer Mental health disorder Mother Cervical cancer Ovarian cancer Heart attack Substance use disorder Family history of problems with anesthesia: No Surgical History Surgical History Hx of hand surgery Hx of right inguinal hernia repair History of hernia repair Hx of colonoscopy History of esophagogastroduodenoscopy (EGD) S/P repair of paraesophageal hernia H/O decompression of ulnar nerve Status post ablation of incompetent vein using laser History of cardiac catheterization History of eyelid surgery History of appendectomy History of parathyroidectomy History of cholecystectomy Hx of cataract surgery Hx of shoulder surgery S/P cubital tunnel release S/P arthroscopic surgery of right knee History of lumpectomy of both breasts History of hysterectomy Hx of adenoidectomy Hx of tonsillectomy Hx of eye surgery History of Problems with Anesthesia: No Social History Social History Household Members: Children and None Housing: House Alcohol intake: current Alcohol intake frequency: does not drink Patient Tobacco Use Status: Former Tobacco user Quit Date: 1979 e-Cigarette/Vaping Use: Never Used Second Hand Smoke Exposure: No service: No Current occupational status: employed Cognitive needs: No Hearing needs: No Vision needs: No Meds Allergies Allergy/AdvReac Type Severity Reaction Status Date / Time Noluvki-OCD-RaO Reductase Allergy Severe JOINT PAIN Verified 01/24/23 09:34 Inhibitor [[id number] REDUCTASE INHIBITOR] amlodipine [AMLODIPINE] Allergy Intermediate PALIPITATIO Verified 01/24/23 09:34 NS baclofen [BACLOFEN] Allergy Intermediate LETHARGY Verified 12/15/23 09:34 Beta-Blockers Allergy Intermediate BRADYCARDIA Verified 01/24/23 09:34 (Beta-Adrenergic Bloc budesonide [From SYMBICORT] Allergy Intermediate HOARSENESS Verified 01/24/23 09:34 Chocolate Allergy Intermediate Itching Verified 01/24/23 09:34 ezetimibe [From ZETIA] Allergy Intermediate JOINT Verified 01/24/23 09:34 PAIN, ELEVATED CPK ibandronate sodium Allergy Intermediate CHEST PAIN Verified 01/24/23 09:34 [From BONIVA] latex [LATEX] Allergy Intermediate RASH-SENSIT Verified 01/24/23 09:34 IVITY lisinopril [LISINOPRIL] Allergy Intermediate COUGH, Verified 01/24/23 09:34 really bad cough, cough meloxicam [From MOBIC] Allergy Intermediate GI UPSET Verified 01/24/23 09:34 mometasone furoate Allergy Intermediate COUGH Verified 01/24/23 09:34 [From DULERA] Penicillins [PENICILLINS] Allergy Intermediate RASH Verified 01/24/23 09:34 pregabalin [From LYRICA] Allergy Intermediate RASH,BLURRED Verified 01/24/23 09:34 VISION raloxifene [From EVISTA] Allergy Intermediate GERD Verified 01/24/23 09:34 sertraline [From ZOLOFT] Allergy Intermediate SKIN Verified 01/24/23 09:34 CRAWLING spironolactone Allergy Intermediate RASH, ?? Verified 01/24/23 09:34 [SPIRONOLACTONE] psoriasis strawberry [STRAWBERRY] Allergy Intermediate ITCHING Verified 01/24/23 09:34 tiotropium Allergy Intermediate RAW THROAT Verified 01/24/23 09:34 [From SPIRIVA WITH HANDIHALER] adhesive [ADHESIVE] Allergy Unknown RASH Verified 01/24/23 09:34 Atrovent Allergy Unknown Unknown Verified 01/24/23 09:34 dexlansoprazole Allergy Unknown UNKNOWN Verified 01/24/23 09:34 [From DEXILANT] doxycycline [DOXYCYCLINE] Allergy Unknown SEVERE NOYOLA, Verified 01/24/23 09:34 HEARTBURN Doxycycline Hyclate Allergy Unknown headache Verified 01/24/23 09:34 esomeprazole [Nexium] Allergy Unknown Unknown Verified 01/24/23 09:34 fluticasone Allergy Unknown HTN Verified 01/24/23 09:34 [From ADVAIR DISKUS] gabapentin [From NEURONTIN] Allergy Unknown THROAT Verified 01/24/23 09:34 TIGHTNESS glucosamine Allergy Unknown Unknown Verified 01/24/23 09:34 metoclopramide [From REGLAN] Allergy Unknown LETHARGY Verified 01/24/23 09:34 monosodium glutamate [MSG] Allergy Unknown HEADACHE Verified 01/24/23 09:34 naproxen [From ALEVE] Allergy Unknown FLUSH Verified 01/24/23 09:34 niacin Allergy Unknown Unknown Verified 01/24/23 09:34 omeprazole Allergy Unknown Unknown Verified 01/24/23 09:34 risedronate sodium Allergy Unknown UNKNOWN Verified 01/24/23 09:34 [From ACTONEL] rofecoxib [From Vioxx] Allergy Unknown ankle Verified 01/24/23 09:34 swelling salmeterol Allergy Unknown HTN Verified 01/24/23 09:34 [From ADVAIR DISKUS] scallops [SCALLOPS] Allergy Unknown NAUSEA & Verified 01/24/23 09:34 VOMITING tramadol [TRAMADOL] Allergy Unknown THROAT Verified 01/24/23 09:34 TIGHTNESS verapamil [VERAPAMIL] Allergy Unknown IRREGULAR Verified 01/24/23 09:34 HEARTBEAT lifitegrast [From Xiidra] Allergy blurred Verified 01/24/23 09:34 vision, headache, eye swelling fluticasone furoate AdvReac Unknown Uknown Verified 01/24/23 09:34 [From Trelegy Ellipta] umeclidinium AdvReac Unknown Uknown Verified 01/24/23 09:34 [From Trelegy Ellipta] vilanterol AdvReac Unknown Uknown Verified 01/24/23 09:34 [From Trelegy Ellipta] Sulindac AdvReac Intermediate Nausea Uncoded 01/24/23 08:58 Home Medications Medication Instructions Recorded Confirmed Last Taken Type Bifidobacterium infantis 4 mg 4 mg PO DAILY 11/17/19 10/11/22 Unknown History capsule (Align) aspirin 81 mg tablet,delayed 81 mg PO DAILY 11/17/19 10/11/22 11/29/21 History release (Adult Aspirin Regimen) betamethasone dipropionate 0.05 % 1 applic topical DIRECTED 11/17/19 10/11/22 Unknown History topical cream cyclosporine 0.05 % eye drops in a 1 drp ophthalmic (eye) Q12H 11/17/19 10/11/22 Unknown History dropperette (Restasis) docusate sodium 100 mg capsule 100 mg PO BID 11/17/19 10/11/22 Unknown History (Colace) lorazepam 0.5 mg tablet 0.5 mg PO BEDTIME 11/17/19 10/11/22 01/14/20 06:00 History magnesium oxide 500 mg tablet 500 mg PO DAILY 11/17/19 10/11/22 Unknown History cetirizine 10 mg tablet (Zyrtec) 10 mg PO DAILY PRN Allergy Symptoms 01/16/22 10/11/22 Unknown History prednisolone acetate 1 % eye 1 drp ophthalmic (eye) QID 12/25/22 Unknown History drops,suspension Exam Airway Mallampati Class: II TM Dist: >3cm Neck ROM: Limited Heart: rrr Lungs: cta Assessment and Plan Assessment Anesthesia Assessment: Anesthesia Plan Discussed Final Anesthetic Review Family History of Problems with Anesthesia: No History of Problems with Anesthesia: No NPO: Yes ASA Class: IV Final Preanesthetic Review: No Changes in Pt Med Stat, Meds/Allgs Chart Reviewed, Consent Obtained/Reviewed and Anes Risks/Benef Reviewed Patient Risk: High Procedure Risk: Intermediate Anesthetic Plan Anesthetic Plan: GA and Agree w/ Assess. and Plan Disposition: Standard PACU
[2023-02-05 09:55] VITALS: BP 171/78; PULSE 85; RESP 16; TEMP 36.4; O2SAT 99; BMI 33.6
[2023-02-05] MEDS: Lactated Ringers 1,000 ML 80 ML IVCONT (10:38)
--- NOTE | 2023-02-05 11:36 | MHC.SHP ---
Pre-Procedural Eval Section A Date of Service: 02/05/23 Section B Chief Complaint: choking Relevant Family History (Specify if Yes): No Relevant Social History: None Present Medications: see Short Stay Collaborative assessment Medical History: Significant History (Anxiety Asthma CAD (coronary artery disease) Cervical radiculitis Chronic sinusitis COPD (chronic obstructive pulmonary disease) COVID-19 vaccine administered Depression Dizziness Edema Fusion of spine, cervical region GERD (gastroesophageal reflux disease) H/O gastroesophageal reflux (GERD) History) History of Previous Operations: Relevant previous surgery/procedure and date(s) (Hx of hand surgery Hx of right inguinal hernia repair History of hernia repair Hx of colonoscopy History of esophagogastroduodenoscopy (EGD) S/P repair of paraesophageal hernia H/O decompression of ulnar nerve Status post ablation of incompetent vein using laser History of cardiac catheterization Hi) Allergies: Allergies Allergy/AdvReac Type Severity Reaction Status Date / Time Dirogqo-[id number] Reductase Allergy Severe JOINT PAIN Verified 02/05/23 09:47 Inhibitor [[id number] REDUCTASE INHIBITOR] amlodipine [AMLODIPINE] Allergy Intermediate PALIPITATIO Verified 02/05/23 09:47 NS baclofen [BACLOFEN] Allergy Intermediate LETHARGY Verified 02/05/23 09:47 Beta-Blockers Allergy Intermediate BRADYCARDIA Verified 02/05/23 09:47 (Beta-Adrenergic Bloc budesonide [From SYMBICORT] Allergy Intermediate HOARSENESS Verified 02/05/23 09:47 Chocolate Allergy Intermediate Itching Verified 02/05/23 09:47 ezetimibe [From ZETIA] Allergy Intermediate JOINT Verified 02/05/23 09:47 PAIN, ELEVATED CPK ibandronate sodium Allergy Intermediate CHEST PAIN Verified 02/05/23 09:47 [From BONIVA] latex [LATEX] Allergy Intermediate RASH-SENSIT Verified 02/05/23 09:47 IVITY lisinopril [LISINOPRIL] Allergy Intermediate COUGH, Verified 02/05/23 09:47 really bad cough, cough meloxicam [From MOBIC] Allergy Intermediate GI UPSET Verified 02/05/23 09:47 mometasone furoate Allergy Intermediate COUGH Verified 02/05/23 09:47 [From DULERA] Penicillins [PENICILLINS] Allergy Intermediate RASH Verified 02/05/23 09:47 pregabalin [From LYRICA] Allergy Intermediate RASH,BLURRED Verified 02/05/23 09:47 VISION raloxifene [From EVISTA] Allergy Intermediate GERD Verified 02/05/23 09:47 sertraline [From ZOLOFT] Allergy Intermediate SKIN Verified 02/05/23 09:47 CRAWLING spironolactone Allergy Intermediate RASH, ?? Verified 02/05/23 09:47 [SPIRONOLACTONE] psoriasis strawberry [STRAWBERRY] Allergy Intermediate ITCHING Verified 02/05/23 09:47 tiotropium Allergy Intermediate RAW THROAT Verified 02/05/23 09:47 [From SPIRIVA WITH HANDIHALER] adhesive [ADHESIVE] Allergy Unknown RASH Verified 02/05/23 09:47 Atrovent Allergy Unknown Unknown Verified 02/05/23 09:47 dexlansoprazole Allergy Unknown UNKNOWN Verified 02/05/23 09:47 [From DEXILANT] doxycycline [DOXYCYCLINE] Allergy Unknown SEVERE NOYOLA, Verified 02/05/23 09:47 HEARTBURN Doxycycline Hyclate Allergy Unknown headache Verified 02/05/23 09:47 esomeprazole [Nexium] Allergy Unknown Unknown Verified 02/05/23 09:47 fluticasone Allergy Unknown HTN Verified 02/05/23 09:47 [From ADVAIR DISKUS] gabapentin [From NEURONTIN] Allergy Unknown THROAT Verified 02/05/23 09:47 TIGHTNESS glucosamine Allergy Unknown Unknown Verified 02/05/23 09:47 metoclopramide [From REGLAN] Allergy Unknown LETHARGY Verified 02/05/23 09:47 monosodium glutamate [MSG] Allergy Unknown HEADACHE Verified 02/05/23 09:47 naproxen [From ALEVE] Allergy Unknown FLUSH Verified 02/05/23 09:47 niacin Allergy Unknown Unknown Verified 02/05/23 09:47 omeprazole Allergy Unknown Unknown Verified 02/05/23 09:47 risedronate sodium Allergy Unknown UNKNOWN Verified 02/05/23 09:47 [From ACTONEL] rofecoxib [From Vioxx] Allergy Unknown ankle Verified 02/05/23 09:47 swelling salmeterol Allergy Unknown HTN Verified 02/05/23 09:47 [From ADVAIR DISKUS] scallops [SCALLOPS] Allergy Unknown NAUSEA & Verified 02/05/23 09:47 VOMITING tramadol [TRAMADOL] Allergy Unknown THROAT Verified 02/05/23 09:47 TIGHTNESS verapamil [VERAPAMIL] Allergy Unknown IRREGULAR Verified 02/05/23 09:47 HEARTBEAT lifitegrast [From Xiidra] Allergy blurred Verified 02/05/23 09:47 vision, headache, eye swelling cyclosporine [From Cequa] AdvReac Intermediate Swelling Verified 02/05/23 09:48 fluticasone furoate AdvReac Unknown Uknown Verified 02/05/23 09:47 [From Trelegy Ellipta] umeclidinium AdvReac Unknown Uknown Verified 02/05/23 09:47 [From Trelegy Ellipta] vilanterol AdvReac Unknown Uknown Verified 02/05/23 09:47 [From Trelegy Ellipta] Sulindac AdvReac Intermediate Nausea Uncoded 02/05/23 09:47 Review of Systems Sugical H&P ROS: Negative: Constitution, Cardiovascular, Respiratory, Neurological, Psychiatric, Hem-Onc, Allergic/Immunologic, Gastrointestinal, Genitourinary, Musculoskeletal, Integumentary, Endocrine and Eyes/Ears/Nose/Throat Exam Surgical H&P Exam: Normal: HEENT, Normal: Heart, Normal: Lungs, Normal: Extremities, Normal: Abdomen, Normal: Skin and Normal: Neurological Plan Diagnosis/Plan: Unchanged I have reviewed the history and physical and performed a pertinent physical examination on my patient. No changes have occurred unless specified. Time Spent With Patient Time: Total time managing care of this patient today ____ minutes.
--- NOTE | 2023-02-05 11:38 | W.PM.OPN ---
Operative Note Operative Note Date of Service: 02/05/23 Narrative: Procedure Description: EGD Indication: choking Anesthesia: MAC FLEXIBLE TRANSORAL UPPER GASTROINTESTINAL ENDOSCOPY UPPER ENDOSCOPY Consent: Indications for the procedure and potential complications of bleeding, perforation, reaction to medications and missed diagnosis were discussed with the patient and informed consent was obtained. Instrument: Olympus GIF H 190 J mid size upper endoscope Monitoring: Vital signs and clinical assessment, continuous EKG monitoring, Pulse oximetry, Carbon Dioxide monitoring and blood pressure monitoring were done throughout the procedure. Procedure: The patient was placed in the left lateral decubitis position and pre-procedure medications were administered and a bite block was placed. The endoscope was inserted into the mouth and advanced under direct vision to the third part of duodenum. A careful inspection was made as the upper endoscope was withdrawn including a retroflexed examination of the proximal stomach; Findings and interventions are described below. Findings: Larynx:normal Esophagus: GE junction at 30 cm, diaphragm hiatus at 32 cm, small sliding hiatal hernia with lax LES noted, balloon dilation done at UES to 18 mm with heme noted. Stomach: Normal mucosa Grade 2 flap valve on retroflexed examination of the cardia. Duodenum: Normal bulb and descending duodenum, Intervention: Balloon dilation Impression/Findings: esophageal stricture small hiatal hernia PLAN: reflux precautions repeat dilation prn
[2023-02-05 12:14] VITALS: BP 149/80; PULSE 104; RESP 16; TEMP 36.4; O2SAT 98
[2023-02-05 12:29] VITALS: BP 121/57; PULSE 82; RESP 17; O2SAT 96
[2023-02-05 12:44] VITALS: BP 125/60; PULSE 80; RESP 17; TEMP 36.4; O2SAT 98
== END 2023-02-05 13:07 | disposition home or self-care (01) ==
PROVIDERS: PCP Nurse Practitioner Family; Visit Provider Internal Medicine Gastroenterology
PROC: (CPT 43249; principal; 2023-02-05 13:00)
DX: K22.2 Esophageal obstruction (principal); K22.4 Dyskinesia of esophagus; G70.00 Myasthenia gravis without (acute) exacerbation; K21.9 Gastro-esophageal reflux disease without esophagitis; K44.9 Diaphragmatic hernia without obstruction or gangrene; R14.0 Abdominal distension (gaseous); R11.0 Nausea; I25.10 Atherosclerotic heart disease of native coronary artery without angina pectoris; I10 Essential (primary) hypertension; E78.5 Hyperlipidemia, unspecified; J44.9 Chronic obstructive pulmonary disease, unspecified; G47.33 Obstructive sleep apnea (adult) (pediatric); M81.0 Age-related osteoporosis without current pathological fracture; Z88.0 Allergy status to penicillin; Z88.1 Allergy status to other antibiotic agents; Z88.8 Allergy status to other drugs, medicaments and biological substances; Z91.040 Latex allergy status; L23.1 Allergic contact dermatitis due to adhesives; Z90.49 Acquired absence of other specified parts of digestive tract; Z98.890 Other specified postprocedural states; Z87.891 Personal history of nicotine dependence; Z79.82 Long term (current) use of aspirin; Z79.899 Other long term (current) drug therapy; Z79.1 Long term (current) use of non-steroidal anti-inflammatories (NSAID)
CPT/HCPCS: 43249; C1726; J2704

== ENCOUNTER → 2023-02-05 09:25 | Outpatient (BNV) | payer MEDICARE, MEDICAID, SELFPAY | PROVIDERS: PCP Nurse Practitioner Family; Visit Provider Internal Medicine Gastroenterology | DX: K22.2 Esophageal obstruction (principal); K44.9 Diaphragmatic hernia without obstruction or gangrene | CPT/HCPCS: 43249 ==

== ENCOUNTER 2023-03-19 08:13 | Outpatient (AMB) | payer MEDICARE, MEDICAID, SELFPAY ==
--- NOTE | 2023-03-19 08:15 | MHC.PC.OV ---
Vital Signs 03/19/23 08:16 03/19/23 08:54 Height 4 ft 10 in Weight 160 lb 8 oz BMI 33.5 BP 170/100 H 146/88 H Blood Pressure Location Rt brachial Lt brachial Position Sitting Sitting Pulse 87 Pulse Source Pulse Oximeter Pulse Oximetry (%) 98 Oxygen Delivery Method Room Air Intake Visit Reasons: 6m f/u Intake Note: Pt is here to follow up for HTN Allergies Tzftuwn-ALW-ZdI Reductase Inhibitor [ALRGIED-SXT-YCH REDUCTASE INHIBITOR] Allergy (Severe, Verified 03/19/23 09:01) JOINT PAIN amlodipine [AMLODIPINE] Allergy (Intermediate, Verified 03/19/23 09:01) PALIPITATIONS baclofen [BACLOFEN] Allergy (Intermediate, Verified 03/19/23 09:01) LETHARGY Beta-Blockers (Beta-Adrenergic Bloc Allergy (Intermediate, Verified 03/19/23 09:01) BRADYCARDIA budesonide [From SYMBICORT] Allergy (Intermediate, Verified 03/19/23 09:01) HOARSENESS Chocolate Allergy (Intermediate, Verified 03/19/23 09:01) Itching ezetimibe [From ZETIA] Allergy (Intermediate, Verified 03/19/23 09:01) JOINT PAIN, ELEVATED CPK ibandronate sodium [From BONIVA] Allergy (Intermediate, Verified 03/19/23 09:01) CHEST PAIN latex [LATEX] Allergy (Intermediate, Verified 03/19/23 09:01) RASH-SENSITIVITY lisinopril [LISINOPRIL] Allergy (Intermediate, Verified 03/19/23 09:01) COUGH, really bad cough, cough meloxicam [From MOBIC] Allergy (Intermediate, Verified 03/19/23 09:01) GI UPSET mometasone furoate [From DULERA] Allergy (Intermediate, Verified 03/19/23 09:01) COUGH Penicillins [PENICILLINS] Allergy (Intermediate, Verified 03/19/23 09:01) RASH pregabalin [From LYRICA] Allergy (Intermediate, Verified 03/19/23 09:01) RASH,BLURRED VISION raloxifene [From EVISTA] Allergy (Intermediate, Verified 03/19/23 09:01) GERD sertraline [From ZOLOFT] Allergy (Intermediate, Verified 03/19/23 09:01) SKIN CRAWLING spironolactone [SPIRONOLACTONE] Allergy (Intermediate, Verified 03/19/23 09:01) RASH, ?? psoriasis strawberry [STRAWBERRY] Allergy (Intermediate, Verified 03/19/23 09:01) ITCHING tiotropium [From SPIRIVA WITH HANDIHALER] Allergy (Intermediate, Verified 03/19/23 09:01) RAW THROAT adhesive [ADHESIVE] Allergy (Unknown, Verified 03/19/23 09:01) RASH Atrovent Allergy (Unknown, Verified 03/19/23 09:01) Unknown dexlansoprazole [From DEXILANT] Allergy (Unknown, Verified 03/19/23 09:) UNKNOWN doxycycline [DOXYCYCLINE] Allergy (Unknown, Verified 03/19/23 09:01) SEVERE NOYOLA, HEARTBURN Doxycycline Hyclate Allergy (Unknown, Verified 03/19/23 09:) headache esomeprazole [Nexium] Allergy (Unknown, Verified 03/19/23 09:01) Unknown fluticasone [From ADVAIR DISKUS] Allergy (Unknown, Verified 03/19/23 09:01) HTN gabapentin [From NEURONTIN] Allergy (Unknown, Verified 03/19/23 09:01) THROAT TIGHTNESS glucosamine Allergy (Unknown, Verified 03/19/23 09:01) Unknown metoclopramide [From REGLAN] Allergy (Unknown, Verified 03/19/23 09:01) LETHARGY monosodium glutamate [MSG] Allergy (Unknown, Verified 03/19/23 09:01) HEADACHE naproxen [From ALEVE] Allergy (Unknown, Verified 03/19/23 09:01) FLUSH niacin Allergy (Unknown, Verified 03/19/23 09:01) Unknown omeprazole Allergy (Unknown, Verified 03/19/23 09:01) Unknown risedronate sodium [From ACTONEL] Allergy (Unknown, Verified 03/19/23 09:01) UNKNOWN rofecoxib [From Vioxx] Allergy (Unknown, Verified 03/19/23 09:01) ankle swelling salmeterol [From ADVAIR DISKUS] Allergy (Unknown, Verified 03/19/23 09:01) HTN scallops [SCALLOPS] Allergy (Unknown, Verified 03/19/23 09:01) NAUSEA & VOMITING tramadol [TRAMADOL] Allergy (Unknown, Verified 03/19/23 09:01) THROAT TIGHTNESS verapamil [VERAPAMIL] Allergy (Unknown, Verified 03/19/23 09:01) IRREGULAR HEARTBEAT lifitegrast [From Xiidra] Allergy (Verified 03/19/23 09:01) blurred vision, headache, eye swelling cyclosporine [From Cequa] Adverse Reaction (Intermediate, Verified 03/19/23 09:01) Swelling fluticasone furoate [From Trelegy Ellipta] Adverse Reaction (Unknown, Verified 03/19/23 09:01) Uknown umeclidinium [From Trelegy Ellipta] Adverse Reaction (Unknown, Verified 03/19/23 09:01) Uknown vilanterol [From Trelegy Ellipta] Adverse Reaction (Unknown, Verified 03/19/23 09:01) Uknown Sulindac Adverse Reaction (Intermediate, Uncoded 03/19/23 08:18) Nausea Medication List - Last Reconciled 03/19/23 by Sachin Linares, GERMINATION TESTING MANAGER- aspirin (Adult Aspirin Regimen) 81 mg PO DAILY beclomethasone dipropionate 80 mcg/actuation (Qvar RediHaler) 1 inh inhalation BID 30 days betamethasone dipropionate 0.05% 1 appl topical DIRECTED Bifidobacterium infantis (Align) 4 mg PO DAILY cetirizine (Zyrtec) 10 mg PO DAILY PRN cholecalciferol (vitamin D3) 25 mcg PO DAILY 30 days cyclosporine 0.05% (Restasis) 1 drp ophthalmic (eye) Q12H denosumab (Prolia) 60 mg subcut [id number] dextran 70-hypromellose (PF) 0.1-0.3 % (Artificial Tears (PF)) 1 drp ophthalmic (eye) BEDTIME docusate sodium (Colace) 100 mg PO BID evolocumab (Repatha SureClick) 140 mg subcut Q2W fluticasone propionate 50 mcg/actuation (Allergy Relief (fluticasone)) 1 spray intranasal Q12H hydrochlorothiazide 12.5 mg PO DAILY 90 days ibuprofen (IBU) 600 mg PO Q8H PRN 90 days levalbuterol tartrate 45 mcg/actuation 2 puffs inhalation DAILY lidocaine 5% 1 patch topical DAILY losartan 25 mg PO DAILY 90 days magnesium oxide 500 mg PO DAILY montelukast 10 mg PO DAILY pantoprazole 40 mg PO BID prednisolone acetate 1% 1 drp ophthalmic (eye) QID sucralfate 1 g PO BID 90 days Tobacco use date assessed: 03/19/23 Fall risk assessment: No Falls in past year Last assessed Fall Risk: 03/19/23 Dental Screening Dental Screen Date: 03/19/23 Did you have a dental visit in the last 12 months?: Yes Did you have a dental problem in the last 6 months where you did not have access to dental care?: No Was dental information given to patient?: Patient has dentist HPI 6m f/u HPI Details HTN: Blood pressure is managed with hydrochlorothiazide 12.5mg and losartan 25mg. Pt reports that her blood pressure at home is stable. Will have pt continue to monitor her BP at home and keep me posted on readings. Denies chest pain, shortness of breath, headache, dizziness, and blurred vision. Pt reports urinary urgency and frequency. Will order UA and culture. Denies burning with urination and hematuria. Pt reported that an IV in her right hand infiltrated. She reported swelling, bruising, and discomfort between her 2nd and 3rd MCP joints and along the anatomical snuffbox. Pt reports that the discomfort is still present but improving. Will continue to monitor. [facility] Medical History (Updated 03/19/23 @ 08:38 by Sachin Linares [facility]) History of trigger finger Right groin pain Cervical radiculitis Chronic sinusitis COVID-19 vaccine administered Trigger finger GERD (gastroesophageal reflux disease) FRANCESCA (obstructive sleep apnea) CAD (coronary artery disease) History of primary hyperparathyroidism Non-toxic multinodular goiter Osteoporosis Pulmonary nodules H/O gastroesophageal reflux (GERD) HLD (hyperlipidemia) HTN (hypertension) COPD (chronic obstructive pulmonary disease) Asthma History of aneurysm Migraine Depression PTSD (post-traumatic stress disorder) History of panic attacks Right inguinal hernia Anxiety Umbilical pain Edema Dizziness History of deviated nasal septum Medial epicondylitis of left elbow Fusion of spine, cervical region Surgical History (Updated 02/05/23 @ 09:46 by Beba Callahan) H/O cervical spine surgery Hx of hand surgery Hx of right inguinal hernia repair History of hernia repair Hx of colonoscopy History of esophagogastroduodenoscopy (EGD) S/P repair of paraesophageal hernia H/O decompression of ulnar nerve Status post ablation of incompetent vein using laser History of cardiac catheterization History of eyelid surgery History of appendectomy History of parathyroidectomy History of cholecystectomy Hx of cataract surgery Hx of shoulder surgery S/P cubital tunnel release S/P arthroscopic surgery of right knee History of lumpectomy of both breasts History of hysterectomy Hx of adenoidectomy Hx of tonsillectomy Hx of eye surgery Family History Father Liver cancer Psoriasis Cancer Mental health disorder Mother Cervical cancer Ovarian cancer Heart attack Substance use disorder Social History Household Members: Children and None Housing: House Alcohol intake: current Alcohol intake frequency: does not drink Patient Tobacco Use Status: Former Tobacco user Quit Date: 1979 Tobacco use type: Cigarette e-Cigarette/Vaping Use: Never Used Second Hand Smoke Exposure: No service: No Current occupational status: employed Cognitive needs: No Hearing needs: No Vision needs: No Questionnaire PHQ-9 Over the last 2 weeks, how often have you been bothered by any of the following problems? 1. Little interest or pleasure in doing things: not at all 2. Feeling down, depressed, or hopeless: not at all 3. Trouble falling or staying asleep, or sleeping too much: several days 4. Feeling tired or having little energy: several days 5. Poor appetite or overeating: not at all 6. Feeling bad about yourself - or that you are a failure or have let yourself or your family down: not at all 7. Trouble concentrating on things, such as reading the newspaper or watching television: not at all 8. Moving or speaking so slowly that other people could have noticed. Or the opposite - being so fidgety or restless that you have been moving around a lot more than usual: not at all 9. Thoughts that you would be better off or of hurting yourself in some way: not at all Total score: 2 Source: Developed by Drs. Manas Hilario, Lizabeth Wadsworth, Hernando Rodríguez and colleagues, with an educational fidelina from [employer]. Thrive Questionnaire Date Thrive assessed: 03/19/23 I am a: Patient What is your living situation today?: I choose not to answer this question Within the past 12 months, did the food you bought not last and you didn't have the money to get more?: I choose not to answer this question Within the past 12 months, did you worry whether your food would run out before you got money to buy more?: I choose not to answer this question Do you have trouble paying for medicines?: I choose not to answer this question Do you have trouble getting transportation to medical appointments?: I choose not to answer this question Do you have trouble paying your heating and electricity bill?: I choose not to answer this question Do you have trouble taking care of your child, family member or friend?: I choose not to answer this question Do you have trouble with day-to-day activities such as bathing, preparing meals, shopping, managing finances, etc.?: I choose not to answer this question Are you currently unemployed and looking for a job?: I choose not to answer this question Are you interested in more education?: I choose not to answer this question THRIVE Score: 0 AUDIT C Alcohol Use Questionnaire (AUDIT-C) 1. How often do you have a drink containing alcohol?: Never 3. How often do you have six or more drinks on one occasion?: Never Total Score: 0 JASPAL-7 AMB Questionnaire JASPAL-7 Date JASPAL - 7 assessed: 03/19/23 Feeling nervous, anxious, or on edge: 1 = Several days Not being able to stop or control worryin = Several days Worrying too much about different things: 1 = Several days Trouble relaxin = Not at all Being so restless that it is hard to sit still: 0 = Not at all Becoming easily annoyed or irritable: 0 = Not at all Feeling afraid as if something awful might happen: 0 = Not at all Total JASPAL-7 score (0-4 normal; 5-9 mild; 10-14 moderate; 15-21 severe): 3 Source: Developed by Drs. Manas Hilario, Lizabeth Wadsworth, Hernando Rodríguez and colleagues, with an educational fidelina from [employer]. Review of Systems Const Reports as per HPI Physical exam (Primary Care) Vital Signs: Last Vital Signs Pulse 87 03/19/23 08:16 BP 170/100 H 03/19/23 08:16 Pulse Ox 98 03/19/23 08:16 Oxygen Delivery Method Room Air 03/19/23 08:16 BMI result Body Mass Index 33.5 Tobacco/Smoking Status: Tobacco use Status Tobacco use date assessed 03/19/23 03/19/23 08:27 Patient Tobacco Use Status Former Tobacco user 03/19/23 08:16 Tobacco use type Cigarette 03/19/23 08:16 e-Cigarette/Vaping Use Never Used 03/19/23 08:16 PHQ-9: PHQ-9 Score PHQ-9: Total score 2 03/19/23 08:38 Thrive Assessment: Date of Thrive Assessment Date Thrive assessed 03/19/23 03/19/23 08:31 Const General: cooperative Nutritional Appearance: obese Orientation/consciousness: patient oriented x3 Resp Effort & Inspection: normal respiratory effort Auscultation: clear to auscultation bilaterally Cardio Rate: regular rate Rhythm: regular rhythm Heart sounds: S1 normal heart sound present and S2 normal heart sound present General: Yes no CVA tenderness Back/Spine/Pelvis Back: no CVA tenderness Neuro General: patient oriented x3 Extrem Other: right hand: no active swelling, good radial pulse, good hand grasp without tenderness, no tenderness with palpation Right lower extremity: no edema Left lower extremity: no edema Psych Appearance: grossly normal Mental Status: mental status grossly normal Speech and movement: Normal speech and movement present Affect: normal affect Attitude: cooperative Thought process: Normal thought process present Thought content: Normal thought content present Insight: Good insight present (Psych) Judgement: Good judgement present (Psych) Assessment and Plan Assessment & Plan (1) Urinary urgency: Code(s): R39.15 - Urgency of urination Plan: UA and culture ordered (2) HTN (hypertension): Code(s): I10 - Essential (primary) hypertension Plan: cont to monitor BP Plan The patient agreed to the use of a medical transcription editor for this encounter. Scribed for PEPE Diaz by Alyse Otero medical transcription editor, on 03/19/2023 at 08:30 EST. Orders: Orders Urine Culture Today R39.15 - Urgency of urination UA CC w/rflx Micro + Cult Today R39.15 - Urgency of urination Complete Blood Count Auto Diff Today I10 - Essential (primary) hypertension, R39.15 - Urgency of urination TSH reflex Free T4 Today I10 - Essential (primary) hypertension, R39.15 - Urgency of urination Comprehensive Met. Panel Today I10 - Essential (primary) hypertension, R39.15 - Urgency of urination Medications: Refilled ibuprofen (IBU) Take it with food and full glass of water. 600 mg PO Q8H 90 days PRN 270 tabs 0RF for pain M47.812 - Spondylosis without myelopathy or radiculopathy, cervical region, M96.1 - Postlaminectomy syndrome, not elsewhere classified Coding Level of Care Code Est Pt Level 3 (87398) Diagnoses Urinary urgency R39.15 HTN (hypertension) I10
[2023-03-19 08:16] VITALS: BP 170/100; PULSE 87; O2SAT 98; BMI 33.5
[2023-03-19 08:54] VITALS: BP 146/88
== END 2023-03-19 09:02 | disposition home or self-care (01) ==
PROVIDERS: PCP Nurse Practitioner Family; Visit Provider Nurse Practitioner Family
DX: R39.15 Urgency of urination (principal); I10 Essential (primary) hypertension
CPT/HCPCS: 99213

== ENCOUNTER 2023-03-19 09:03 | Outpatient (REF) | payer MEDICARE, MEDICAID, SELFPAY ==
[2023-03-19 11:38] LABS: Appearance Urine Clear; Color Urine Yellow; Glucose Urine UA Negative (Negative); Leukocyte Esterase Urine Negative (Negative); Nitrite Urine Negative (Negative); PH 6.5 (5.0-9.0); Specific Gravity - Urine 1.015 (1.005-1.025); UMIC TRIGGER UACC YES; Urine Blood Trace (Negative); Urine Ketones Negative (Negative); Urine Protein Negative (Neg-Trace)
[2023-03-19 11:41] LABS: Bacteria Urine None Seen (None Seen); Hyaline Casts Urine 0-2 /LPF (0-2); Squamous Epithelial Cell Urine 0-2 /HPF (0-2); WBC Urine 0-5 /HPF (0-5)
[2023-03-19 11:49] LABS: Basophils Absolute Auto 0.1 X10*3/uL (0.0-0.2); Basophils Percent Auto 1.4 % (0-2); Eosinophils Absolute Auto 0.2 X10*3/uL (0.0-0.4); Hematocrit 41.5 % (37.0-47.0); Hemoglobin 13.7 g/dl (12.0-16.0); Imm Gran Abs Auto 0.02 X10*3/uL (0.00-0.03); Imm Gran Pct Auto 0.3 % (0.0-0.4); Lymphocytes Absolute Auto 1.8 X10*3/uL (1.2-4.9); Lymphocytes Percent Auto 24.6 % (20-40); MANUAL DIFF FLAG NO; Mean Corpuscular Volume 87.9 fL (80.0-98.0); Mean Platelet Volume 10.7 fL (9.4-12.3); Monocytes Absolute Auto 0.5 X10*3/uL (0.1-1.2); Neutrophils Absolute Auto 4.7 x10*3/uL (2.0-8.3); Neutrophils Percent Auto 63.7 % (45-73); Platelet Count 309 X10*3/uL (160-400); Red Blood Count 4.72 X10*6/uL (4.20-5.50); Red Cell Distribution Width 11.9 % (11.0-16.0); White Blood Count 7.3 X10*3/uL (4.8-10.8)
[2023-03-19 13:12] LABS: Alanine Aminotransferase 11 U/L (0-31); Alkaline Phosphatase 78 U/L (39-117); Anion Gap 12 (12-20); Aspartate Amino Transferase 16 U/L (5-31); Bilirubin Total 0.6 mg/dL (0.0-1.0); Blood Urea Nitrogen 13 mg/dL (9-16); Calcium 8.4 mg/dL (8.4-10.2); Carbon Dioxide 29 mmol/L (22-29); Chloride 103 mmol/L (96-108); Estimated Glomerular Filt Rate 51; Glucose Random 92 mg/dL (60-115); Potassium 3.6 mmol/L (3.3-5.1); Sodium 140 mmol/L (135-145)
[2023-03-19 13:15] LABS: TSH reflex Free T4 1.57 uIU/mL (0.32-4.0)
== END 2023-03-19 09:04 | disposition home or self-care (01) ==
LOC: HO.HMGCLDS 09:03
PROVIDERS: PCP Nurse Practitioner Family; Visit Provider Nurse Practitioner Family
DX: R39.15 Urgency of urination (principal); I10 Essential (primary) hypertension
CPT/HCPCS: 36415; 80053; 81001; 84443; 85025; 87086

== ENCOUNTER 2023-03-21 07:10 | Outpatient (REF) | payer MEDICARE, MEDICAID, SELFPAY | END 2023-03-21 07:11 | disposition home or self-care (01) | LOC: HO.MAMMO 07:10 | PROVIDERS: PCP Nurse Practitioner Family; Visit Provider Nurse Practitioner Family | DX: Z12.31 Encounter for screening mammogram for malignant neoplasm of breast (principal) | CPT/HCPCS: 77063; 77067 ==

== ENCOUNTER → 2023-03-21 07:30 | Outpatient (BNV) | payer MEDICARE, MEDICAID, SELFPAY | PROVIDERS: PCP Nurse Practitioner Family; Visit Provider Radiology Diagnostic Radiology | DX: Z12.31 Encounter for screening mammogram for malignant neoplasm of breast (principal) | CPT/HCPCS: 77063; 77067 ==

== ENCOUNTER 2023-03-24 13:32 | Outpatient (AMB) | payer MEDICARE, MEDICAID, SELFPAY ==
--- NOTE | 2023-03-24 14:09 | A.OFFVIS_ITS ---
Intake Vital Signs 03/24/23 14:12 Height 4 ft 10 in Weight 158 lb BMI 33.0 BP 136/78 Blood Pressure Location Lt brachial Position Sitting Pulse 76 Intake Visit Reasons: s/p EGD with Balloon; Dr. Garcia Intake Note: Patient follow up for EGD with Balloon results Patient cc: heartburn with burning sensation, and some SOB after eating, denies any other GI issues. 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 Accompanied by: Self / Same As Patient Allergies [id number]-[id number]-[id number] Reductase Inhibitor [[id number] REDUCTASE INHIBITOR] Allergy (Severe, Verified 03/24/23 14:11) JOINT PAIN amlodipine [AMLODIPINE] Allergy (Intermediate, Verified 03/24/23 14:11) PALIPITATIONS baclofen [BACLOFEN] Allergy (Intermediate, Verified 03/24/23 14:11) LETHARGY Beta-Blockers (Beta-Adrenergic Bloc Allergy (Intermediate, Verified 03/24/23 14:11) BRADYCARDIA budesonide [From SYMBICORT] Allergy (Intermediate, Verified 03/24/23 14:11) HOARSENESS Chocolate Allergy (Intermediate, Verified 03/24/23 14:11) Itching ezetimibe [From ZETIA] Allergy (Intermediate, Verified 03/24/23 14:11) JOINT PAIN, ELEVATED CPK ibandronate sodium [From BONIVA] Allergy (Intermediate, Verified 03/24/23 14:11) CHEST PAIN latex [LATEX] Allergy (Intermediate, Verified 03/24/23 14:11) RASH-SENSITIVITY lisinopril [LISINOPRIL] Allergy (Intermediate, Verified 03/24/23 14:11) COUGH, really bad cough, cough meloxicam [From MOBIC] Allergy (Intermediate, Verified 03/24/23 14:11) GI UPSET mometasone furoate [From DULERA] Allergy (Intermediate, Verified 03/24/23 14:11) COUGH Penicillins [PENICILLINS] Allergy (Intermediate, Verified 03/24/23 14:11) RASH pregabalin [From LYRICA] Allergy (Intermediate, Verified 03/24/23 14:11) RASH,BLURRED VISION raloxifene [From EVISTA] Allergy (Intermediate, Verified 03/24/23 14:11) GERD sertraline [From ZOLOFT] Allergy (Intermediate, Verified 03/24/23 14:11) SKIN CRAWLING spironolactone [SPIRONOLACTONE] Allergy (Intermediate, Verified 03/24/23 14:11) RASH, ?? psoriasis strawberry [STRAWBERRY] Allergy (Intermediate, Verified 03/24/23 14:11) ITCHING tiotropium [From SPIRIVA WITH HANDIHALER] Allergy (Intermediate, Verified 03/24/23 14:11) RAW THROAT adhesive [ADHESIVE] Allergy (Unknown, Verified 03/24/23 14:11) RASH Atrovent Allergy (Unknown, Verified 03/24/23 14:11) Unknown dexlansoprazole [From DEXILANT] Allergy (Unknown, Verified 03/24/23 14:11) UNKNOWN doxycycline [DOXYCYCLINE] Allergy (Unknown, Verified 03/24/23 14:11) SEVERE NOYOLA, HEARTBURN Doxycycline Hyclate Allergy (Unknown, Verified 03/24/23 14:11) headache esomeprazole [Nexium] Allergy (Unknown, Verified 03/24/23 14:11) Unknown fluticasone [From ADVAIR DISKUS] Allergy (Unknown, Verified 03/24/23 14:11) HTN gabapentin [From NEURONTIN] Allergy (Unknown, Verified 03/24/23 14:11) THROAT TIGHTNESS glucosamine Allergy (Unknown, Verified 03/24/23 14:11) Unknown metoclopramide [From REGLAN] Allergy (Unknown, Verified 03/24/23 14:11) LETHARGY monosodium glutamate [MSG] Allergy (Unknown, Verified 03/24/23 14:11) HEADACHE naproxen [From ALEVE] Allergy (Unknown, Verified 03/24/23 14:11) FLUSH niacin Allergy (Unknown, Verified 03/24/23 14:11) Unknown omeprazole Allergy (Unknown, Verified 03/24/23 14:11) Unknown risedronate sodium [From ACTONEL] Allergy (Unknown, Verified 03/24/23 14:11) UNKNOWN rofecoxib [From Vioxx] Allergy (Unknown, Verified 03/24/23 14:11) ankle swelling salmeterol [From ADVAIR DISKUS] Allergy (Unknown, Verified 03/24/23 14:11) HTN scallops [SCALLOPS] Allergy (Unknown, Verified 03/24/23 14:11) NAUSEA & VOMITING tramadol [TRAMADOL] Allergy (Unknown, Verified 03/24/23 14:11) THROAT TIGHTNESS verapamil [VERAPAMIL] Allergy (Unknown, Verified 03/24/23 14:11) IRREGULAR HEARTBEAT lifitegrast [From Xiidra] Allergy (Verified 03/24/23 14:11) blurred vision, headache, eye swelling cyclosporine [From Cequa] Adverse Reaction (Intermediate, Verified 03/24/23 14:11) Swelling fluticasone furoate [From Trelegy Ellipta] Adverse Reaction (Unknown, Verified 03/24/23 14:11) Uknown umeclidinium [From Trelegy Ellipta] Adverse Reaction (Unknown, Verified 03/24/23 14:11) Uknown vilanterol [From Trelegy Ellipta] Adverse Reaction (Unknown, Verified 03/24/23 14:11) Uknown Sulindac Adverse Reaction (Intermediate, Uncoded 03/19/23 08:18) Nausea HPI s/p EGD with Balloon; Dr. Garcia HPI Details 72 yr old f here for f/u RECAP: seen by May initially due to GERD neg caridac eval using wedge pillows she has failed omeprazole, Nexium, Dexilant, and Gaviscon. She has done the best on Protonix and takes it twice a day about 3 times a week she had ba swallow 2015- pill was ok, reflux noted, small sliding hiatal hernia repeat GI series 11/2018--same as above, small bowel was normal EGD- with dilation- helped her dysphagia, 4 cm hiatal hernia noted. mild gastritis she had ongoing sx with regurg, vomtiing, and burping advised on SALT consult for aerophagia trial of zegrid and pepcid combo At f/u visit she was still on pantoprazole bid and gas x or tums otherwise vomiting was better but still had breakthru burping, regurgitation, and sob if she bends forward she was also coughing after eating some ruq and epigastric discomfort still has trouble food sticking occ she did have one episode of blood noted in stool, on wiping, slight after having a nose bleed and coughing some blood, colonoscopy 2017 with diverticulosis, no mention made of hemorrhoids she does have nose bleeds on and off maybe once a week, uses 3-5 tissues has afrin at home CBC was good with HGB 14 g/dl sigmoidoscopy with grade II internal hemorrhoids, and severe diverticulosis, fair prep, no blood seen in colon u/s liver 03/2019-- fatty liver, hepatomegaly GES 03/2019--normal emptying she was referred to Dr Del Rosario for lap repair of hiatal hernia 09/2019 and did well I ordered CT scan for groin pain revealed fat containing inguinal hernias, awaiting surgical repair by Dr Carson of right side she had noticed she is going to bathroom more often, she has urgency she was still taking align and Mag, Advised to stop Mag supplements, and increase fiber intake Ba swallow-- 04/2020--normal EGD 11/30-- gastritis, esophagitis bx: moderate inflammation GEJ switched from pepcid to PPI She had repeat EGD and colonoscopy Endoscopy Findings: slightly lax LES gastritis Colonoscopy Findings internal hemorrhoids diverticular disease erosive ileitis Path: GEJ --mild chronic inflammation, focal ileitis, colon bx normal prior to endoscopies she had just commenced celebrix, stopped ibuprofen--for spinal pain and hand pain Ba swallow- mild reflux , normal swallow, no pill given EGD 02/05/23 Balloon dilation 18 mm, esophageal stricture hiatal hernia INTERIM: she has been doing much better she had a hand hematoma after, recovering from that vocie is clear not feeling food sticking, or hoarseness voice not weak, EXAM: voice is good GENERAL: The patient is well developed and nontoxic. VITAL SIGNS:see workflow HEENT: Nonicteric sclerae, PERRLA, EOMI. Oropharynx clear. Moist mucous membranes. Conjunctivae appear well perfused. No thyroid mass. CHEST: Chest wall is nontender. HEART: Regular rate and rhythm without murmurs. LUNGS: Clear to auscultation bilaterally. ABDOMEN: Soft, positive bowel sounds, nontender, no organomegaly.no flank tenderness SKIN: No rash, no excessive bruising, petechiae, or purpura. NEUROLOGIC: Cranial nerves II-XII intact without motor/sensory deficit. Assessment & Plan 1/ GERD, did seem to be controlled at on e point but now not so much, voice changes, better with dilation 2/ severe diverticulosis causing LLQ madina n and discomfort--not an issue at this time 3/ focal ileitis prob 2/2 nsaids but can t stop due to pain issues--not active issue PLAN: 1/ cont with PPI, prn EGD with dilation, if sx recur PFSH Medical History (Updated 03/19/23 @ 08:38 by Sachin Linares [facility]) History of trigger finger Right groin pain Cervical radiculitis Chronic sinusitis COVID-19 vaccine administered Trigger finger GERD (gastroesophageal reflux disease) FRANCESCA (obstructive sleep apnea) CAD (coronary artery disease) History of primary hyperparathyroidism Non-toxic multinodular goiter Osteoporosis Pulmonary nodules H/O gastroesophageal reflux (GERD) HLD (hyperlipidemia) HTN (hypertension) COPD (chronic obstructive pulmonary disease) Asthma History of aneurysm Migraine Depression PTSD (post-traumatic stress disorder) History of panic attacks Right inguinal hernia Anxiety Umbilical pain Edema Dizziness History of deviated nasal septum Medial epicondylitis of left elbow Fusion of spine, cervical region Surgical History (Updated 02/05/23 @ 09:46 by Beba Callahan) H/O cervical spine surgery Hx of hand surgery Hx of right inguinal hernia repair History of hernia repair Hx of colonoscopy History of esophagogastroduodenoscopy (EGD) S/P repair of paraesophageal hernia H/O decompression of ulnar nerve Status post ablation of incompetent vein using laser History of cardiac catheterization History of eyelid surgery History of appendectomy History of parathyroidectomy History of cholecystectomy Hx of cataract surgery Hx of shoulder surgery S/P cubital tunnel release S/P arthroscopic surgery of right knee History of lumpectomy of both breasts History of hysterectomy Hx of adenoidectomy Hx of tonsillectomy Hx of eye surgery Family History Father Liver cancer Psoriasis Cancer Mental health disorder Mother Cervical cancer Ovarian cancer Heart attack Substance use disorder Social History Household Members: Children and None Housing: House Alcohol intake: current Alcohol intake frequency: does not drink Patient Tobacco Use Status: Former Tobacco user Quit Date: 1979 Tobacco use type: Cigarette e-Cigarette/Vaping Use: Never Used Second Hand Smoke Exposure: No service: No Current occupational status: employed Cognitive needs: No Hearing needs: No Vision needs: No Physical Exam Vital Signs: Last Vital Signs Pulse 76 03/24/23 14:12 BP 136/78 03/24/23 14:12 BMI result Body Mass Index 33.0 Assessment & Plan Assessment & Plan (1) GERD (gastroesophageal reflux disease): Code(s): K21.9 - Gastro-esophageal reflux disease without esophagitis Qualifiers: Esophagitis presence: without esophagitis Qualified Code(s): K21.9 - Gastro-esophageal reflux disease without esophagitis Plan: Assessment & Plan 1/ GERD, did seem to be controlled at one point but now not so much, voice changes, better with dilation 2/ severe diverticulosis causing LLQ pain and discomfort--not an issue at this time 3/ focal ileitis prob 2/2 nsaids but cant stop due to pain issues--not active issue PLAN: 1/ cont with PPI, prn EGD with dilation, if sx recur Medications: Refilled sucralfate 1 g PO BID 90 days 180 tabs 1RF Coding Level of Care Code Est Pt Level 3 (84556) Diagnoses Gastroesophageal reflux disease without esophagitis K21.9 Esophagitis presence: without esophagitis
[2023-03-24 14:12] VITALS: BP 136/78; PULSE 76; BMI 33.0
== END 2023-03-24 15:06 | disposition home or self-care (01) ==
PROVIDERS: PCP Nurse Practitioner Family; Visit Provider Internal Medicine Gastroenterology
DX: K21.9 Gastro-esophageal reflux disease without esophagitis (principal)
CPT/HCPCS: 99213

== ENCOUNTER → 2023-03-24 13:32 | Outpatient (BNVA) | payer MEDICARE, MEDICAID, SELFPAY | PROVIDERS: PCP Nurse Practitioner Family; Visit Provider Internal Medicine Gastroenterology | DX: K21.9 Gastro-esophageal reflux disease without esophagitis (principal) | CPT/HCPCS: 99212 ==

== ENCOUNTER 2023-04-05 11:14 | Outpatient (AMB) | payer MEDICARE, MEDICAID, SELFPAY ==
--- NOTE | 2023-04-05 11:50 | AM.OFFWIN_ITS ---
Intake Vital Signs 04/05/23 12:05 Height 4 ft 10 in Weight 158 lb BMI 33.0 BP 130/80 Blood Pressure Location Rt brachial Position Sitting Pulse 98 Pulse Source Pulse Oximeter Temp 98.2 F Temp Source Oral Pulse Oximetry (%) 96 Oxygen Delivery Method Room Air Intake Visit Reasons: EP short breath shoulders/sinus pain Intake Note: Patient here SOB which started yesterday afternoon, upper back pain, fatigue, sinus pressure and headaches. Patient Tobacco Use Status: Former Tobacco user Quit Date: 1979 Allergies Ddzznvi-XMI-CjS Reductase Inhibitor [QVRBRXM-DYH-OAY REDUCTASE INHIBITOR] Allergy (Severe, Verified 04/05/23 12:08) JOINT PAIN amlodipine [AMLODIPINE] Allergy (Intermediate, Verified 04/05/23 12:08) PALIPITATIONS baclofen [BACLOFEN] Allergy (Intermediate, Verified 04/05/23 12:08) LETHARGY Beta-Blockers (Beta-Adrenergic Bloc Allergy (Intermediate, Verified 04/05/23 12:08) BRADYCARDIA budesonide [From SYMBICORT] Allergy (Intermediate, Verified 04/05/23 12:08) HOARSENESS Chocolate Allergy (Intermediate, Verified 04/05/23 12:08) Itching ezetimibe [From ZETIA] Allergy (Intermediate, Verified 04/05/23 12:08) JOINT PAIN, ELEVATED CPK ibandronate sodium [From BONIVA] Allergy (Intermediate, Verified 04/05/23 12:08) CHEST PAIN latex [LATEX] Allergy (Intermediate, Verified 04/05/23 12:08) RASH-SENSITIVITY lisinopril [LISINOPRIL] Allergy (Intermediate, Verified 04/05/23 12:08) COUGH, really bad cough, cough meloxicam [From MOBIC] Allergy (Intermediate, Verified 04/05/23 12:08) GI UPSET mometasone furoate [From DULERA] Allergy (Intermediate, Verified 04/05/23 12:08) COUGH Penicillins [PENICILLINS] Allergy (Intermediate, Verified 04/05/23 12:08) RASH pregabalin [From LYRICA] Allergy (Intermediate, Verified 04/05/23 12:08) RASH,BLURRED VISION raloxifene [From EVISTA] Allergy (Intermediate, Verified 04/05/23 12:08) GERD sertraline [From ZOLOFT] Allergy (Intermediate, Verified 04/05/23 12:08) SKIN CRAWLING spironolactone [SPIRONOLACTONE] Allergy (Intermediate, Verified 04/05/23 12:08) RASH, ?? psoriasis strawberry [STRAWBERRY] Allergy (Intermediate, Verified 04/05/23 12:08) ITCHING tiotropium [From SPIRIVA WITH HANDIHALER] Allergy (Intermediate, Verified 04/05/23 12:08) RAW THROAT adhesive [ADHESIVE] Allergy (Unknown, Verified 04/05/23 12:08) RASH Atrovent Allergy (Unknown, Verified 04/05/23 12:08) Unknown dexlansoprazole [From DEXILANT] Allergy (Unknown, Verified 04/05/23 12:08) UNKNOWN doxycycline [DOXYCYCLINE] Allergy (Unknown, Verified 04/05/23 12:08) SEVERE NOYOLA, HEARTBURN Doxycycline Hyclate Allergy (Unknown, Verified 04/05/23 12:08) headache esomeprazole [Nexium] Allergy (Unknown, Verified 04/05/23 12:08) Unknown fluticasone [From ADVAIR DISKUS] Allergy (Unknown, Verified 04/05/23 12:08) HTN gabapentin [From NEURONTIN] Allergy (Unknown, Verified 04/05/23 12:08) THROAT TIGHTNESS glucosamine Allergy (Unknown, Verified 04/05/23 12:08) Unknown metoclopramide [From REGLAN] Allergy (Unknown, Verified 04/05/23 12:08) LETHARGY monosodium glutamate [MSG] Allergy (Unknown, Verified 04/05/23 12:08) HEADACHE naproxen [From ALEVE] Allergy (Unknown, Verified 04/05/23 12:08) FLUSH niacin Allergy (Unknown, Verified 04/05/23 12:08) Unknown omeprazole Allergy (Unknown, Verified 04/05/23 12:08) Unknown risedronate sodium [From ACTONEL] Allergy (Unknown, Verified 04/05/23 12:08) UNKNOWN rofecoxib [From Vioxx] Allergy (Unknown, Verified 04/05/23 12:08) ankle swelling salmeterol [From ADVAIR DISKUS] Allergy (Unknown, Verified 04/05/23 12:08) HTN scallops [SCALLOPS] Allergy (Unknown, Verified 04/05/23 12:08) NAUSEA & VOMITING tramadol [TRAMADOL] Allergy (Unknown, Verified 04/05/23 12:08) THROAT TIGHTNESS verapamil [VERAPAMIL] Allergy (Unknown, Verified 04/05/23 12:08) IRREGULAR HEARTBEAT lifitegrast [From Xiidra] Allergy (Verified 04/05/23 12:08) blurred vision, headache, eye swelling cyclosporine [From Cequa] Adverse Reaction (Intermediate, Verified 04/05/23 12:08) Swelling fluticasone furoate [From Trelegy Ellipta] Adverse Reaction (Unknown, Verified 04/05/23 12:08) Uknown umeclidinium [From Trelegy Ellipta] Adverse Reaction (Unknown, Verified 04/05/23 12:08) Uknown vilanterol [From Trelegy Ellipta] Adverse Reaction (Unknown, Verified 04/05/23 12:08) Uknown Sulindac Adverse Reaction (Intermediate, Uncoded 04/05/23 12:08) Nausea Do you need a note to return to daycare/school/sports/work: No HPI HPI Comments History of Present Illness Details She presents with back pain, SOB, cough and sinus pain Friday night poor sleep. back pain; across back with cough without phlegm + sinus drainage with ángela pot She said now no drainage from sinuses + pressure in face and some goop in eyes No fevers or chills COVID negative at home No hx of travel or blood clots She used QVAR Used Albuterol inhaler once yesterday PFSH Medical History (Updated 04/05/23 @ 12:33 by Joaquina Tolliver PA-C) History of trigger finger Right groin pain Cervical radiculitis Chronic sinusitis COVID-19 vaccine administered Trigger finger GERD (gastroesophageal reflux disease) FRANCESCA (obstructive sleep apnea) CAD (coronary artery disease) History of primary hyperparathyroidism Non-toxic multinodular goiter Osteoporosis Pulmonary nodules H/O gastroesophageal reflux (GERD) HLD (hyperlipidemia) HTN (hypertension) COPD (chronic obstructive pulmonary disease) Asthma History of aneurysm Migraine Depression PTSD (post-traumatic stress disorder) History of panic attacks Right inguinal hernia Anxiety Umbilical pain Edema Dizziness History of deviated nasal septum Medial epicondylitis of left elbow Fusion of spine, cervical region Surgical History (Updated 02/05/23 @ 09:46 by Beba Callahan) H/O cervical spine surgery Hx of hand surgery Hx of right inguinal hernia repair History of hernia repair Hx of colonoscopy History of esophagogastroduodenoscopy (EGD) S/P repair of paraesophageal hernia H/O decompression of ulnar nerve Status post ablation of incompetent vein using laser History of cardiac catheterization History of eyelid surgery History of appendectomy History of parathyroidectomy History of cholecystectomy Hx of cataract surgery Hx of shoulder surgery S/P cubital tunnel release S/P arthroscopic surgery of right knee History of lumpectomy of both breasts History of hysterectomy Hx of adenoidectomy Hx of tonsillectomy Hx of eye surgery Family History Father Liver cancer Psoriasis Cancer Mental health disorder Mother Cervical cancer Ovarian cancer Heart attack Substance use disorder Social History Household Members: Children and None Housing: House Alcohol intake: current Alcohol intake frequency: does not drink Patient Tobacco Use Status: Former Tobacco user Quit Date: 1979 Tobacco use type: Cigarette e-Cigarette/Vaping Use: Never Used Second Hand Smoke Exposure: No service: No Current occupational status: employed Cognitive needs: No Hearing needs: No Vision needs: No Review of Systems Const Reports body aches, Denies chills, Denies fatigue and Denies fever(s) ENT Reports otalgia (R ear), Reports nasal congestion, Reports nasal discharge, Reports sinus pressure, Denies sore throat and Denies throat swelling Card Denies chest pain, Denies rapid heart rate and Reports dyspnea Resp Reports chest congestion, Reports cough, Denies hemoptysis, Denies excessive phlegm production, Reports dyspnea and Reports wheezing GI Denies abdominal pain Musc Reports back pain Endo Denies fatigue Aller/Immun Denies throat swelling and Reports wheezing Physical Exam Vital Signs: Last Vital Signs Temp 98.2 F 04/05/23 12:05 Pulse 98 04/05/23 12:05 BP 130/80 04/05/23 12:05 Pulse Ox 96 04/05/23 12:05 Oxygen Delivery Method Room Air 04/05/23 12:05 BMI result Body Mass Index 33.0 General: Non-toxic, NAD. Speaking full sentences. Skin: Warm dry throughout Eye: EOMI HENT: Airway patent. Uvula midline. No pharyngeal erythema or edema. No MANAGING CONSULTANT. Bilateral canals clear. TM non-erythematous, non-bulging. No TM perforation or hemotympanum noted. Respiratory: + wheeze mid L lung and crackles at L base. R side clear. No tachypnea. Cardiac: RRR. No murmur MSK: Full ROM extremities. Neurology: A/O. No aphasia or facial droop. Gait without abnormality Psych: Good mood and affect Assessment & Plan Assessment & Plan (1) Atypical pneumonia: Code(s): J18.9 - Pneumonia, unspecified organism Plan: Patient seen and evaluated. She is non-toxic appearing and in no respiratory distress. I heard crackles on L base with slight wheeze Will clinically tx with Azithromycin and prednisone (take with food, avoid nsaids and alcohol) She will call PCP and automotive painter Friday for f/u if worse, go to ED. Symptoms of worsening illness discussed with pt such as CP/SOB Patient gave verbal understanding and had no additional questions or concerns at time of discharge All questions answered Medications: New prednisone 20 mg PO DAILY 4 days 4 tabs 0RF azithromycin start on day 2 of therapy 250 mg PO DAILY 6 days 6 tabs 0RF Coding Level of Care Code Est Pt Level 3 (67580) Diagnoses Atypical pneumonia J18.9
[2023-04-05 12:05] VITALS: BP 130/80; PULSE 98; TEMP 36.8; O2SAT 96; BMI 33.0
== END 2023-04-05 12:29 | disposition home or self-care (01) ==
PROVIDERS: PCP Nurse Practitioner Family; Visit Provider Physician Assistant
DX: J18.9 Pneumonia, unspecified organism (principal)
CPT/HCPCS: 99213

== ENCOUNTER 2023-04-10 13:51 | Outpatient (REF) | payer MEDICARE, MEDICAID, SELFPAY ==
--- NOTE | ~2023-04-10 | XR_ITS ---
EXAMINATION: XR CHEST CLINICAL INFORMATION: Pneumonia unspecified organism. COMPARISON: CT chest of 09/26/2022. Chest radiograph of 09/15/2019. TECHNIQUE: 2 views of the chest were obtained. FINDINGS: Redemonstration of cervical hardware. Surgical clips in the right upper quadrant of the abdomen. There is no gross pneumothorax. Lung volumes are low. Heart size is normal. Thoracolumbar scoliosis with multilevel degenerative changes. No gross pleural effusion. Bibasilar streaky opacities, left greater than right, may represent atelectasis/scar, although an inflammatory/infectious process could also contribute to this appearance. XR/XR chest 2V IMPRESSION: Bibasilar streaky opacities, left greater than right, may represent atelectasis/scar, although an inflammatory/infectious process could also contribute to this appearance.
== END 2023-04-10 13:52 | disposition home or self-care (01) ==
LOC: HO.XRAY 13:51
PROVIDERS: PCP Nurse Practitioner Family; Visit Provider Hospitalist
DX: J18.9 Pneumonia, unspecified organism (principal)
CPT/HCPCS: 71046; 99212

== ENCOUNTER 2023-04-10 13:51 | Outpatient (AMB) | payer MEDICARE, MEDICAID, SELFPAY ==
[2023-04-10 14:24] VITALS: PULSE 75; O2SAT 98; BMI 32.6
--- NOTE | 2023-04-10 14:24 | A.OFFVIS_ITS ---
Intake Vital Signs 04/10/23 14:24 Height 4 ft 10 in Weight 156 lb BMI 32.6 Pulse 75 Pulse Source Pulse Oximeter Pulse Oximetry (%) 98 Oxygen Delivery Method Room Air Intake Visit Reasons: Shortness of Breath Inside Sales Agent Required: No Allergies [id number]-PxV Reductase Inhibitor [[id number] REDUCTASE INHIBITOR] Allergy (Severe, Verified 04/10/23 14:25) JOINT PAIN amlodipine [AMLODIPINE] Allergy (Intermediate, Verified 04/10/23 14:25) PALIPITATIONS baclofen [BACLOFEN] Allergy (Intermediate, Verified 04/10/23 14:25) LETHARGY Beta-Blockers (Beta-Adrenergic Bloc Allergy (Intermediate, Verified 04/10/23 14:25) BRADYCARDIA budesonide [From SYMBICORT] Allergy (Intermediate, Verified 04/10/23 14:25) HOARSENESS Chocolate Allergy (Intermediate, Verified 04/10/23 14:25) Itching ezetimibe [From ZETIA] Allergy (Intermediate, Verified 04/10/23 14:25) JOINT PAIN, ELEVATED CPK ibandronate sodium [From BONIVA] Allergy (Intermediate, Verified 04/10/23 14:25) CHEST PAIN latex [LATEX] Allergy (Intermediate, Verified 04/10/23 14:25) RASH-SENSITIVITY lisinopril [LISINOPRIL] Allergy (Intermediate, Verified 04/10/23 14:25) COUGH, really bad cough, cough meloxicam [From MOBIC] Allergy (Intermediate, Verified 04/10/23 14:25) GI UPSET mometasone furoate [From DULERA] Allergy (Intermediate, Verified 04/10/23 14:25) COUGH Penicillins [PENICILLINS] Allergy (Intermediate, Verified 04/10/23 14:25) RASH pregabalin [From LYRICA] Allergy (Intermediate, Verified 04/10/23 14:25) RASH,BLURRED VISION raloxifene [From EVISTA] Allergy (Intermediate, Verified 04/10/23 14:25) GERD sertraline [From ZOLOFT] Allergy (Intermediate, Verified 04/10/23 14:25) SKIN CRAWLING spironolactone [SPIRONOLACTONE] Allergy (Intermediate, Verified 04/10/23 14:25) RASH, ?? psoriasis strawberry [STRAWBERRY] Allergy (Intermediate, Verified 04/10/23 14:25) ITCHING tiotropium [From SPIRIVA WITH HANDIHALER] Allergy (Intermediate, Verified 04/10/23 14:25) RAW THROAT adhesive [ADHESIVE] Allergy (Unknown, Verified 04/10/23 14:25) RASH Atrovent Allergy (Unknown, Verified 04/10/23 14:25) Unknown dexlansoprazole [From DEXILANT] Allergy (Unknown, Verified 04/10/23 14:25) UNKNOWN doxycycline [DOXYCYCLINE] Allergy (Unknown, Verified 04/10/23 14:25) SEVERE NOYOLA, HEARTBURN Doxycycline Hyclate Allergy (Unknown, Verified 04/10/23 14:25) headache esomeprazole [Nexium] Allergy (Unknown, Verified 04/10/23 14:25) Unknown fluticasone [From ADVAIR DISKUS] Allergy (Unknown, Verified 04/10/23 14:25) HTN gabapentin [From NEURONTIN] Allergy (Unknown, Verified 04/10/23 14:25) THROAT TIGHTNESS glucosamine Allergy (Unknown, Verified 04/10/23 14:25) Unknown metoclopramide [From REGLAN] Allergy (Unknown, Verified 04/10/23 14:25) LETHARGY monosodium glutamate [MSG] Allergy (Unknown, Verified 04/10/23 14:25) HEADACHE naproxen [From ALEVE] Allergy (Unknown, Verified 04/10/23 14:25) FLUSH niacin Allergy (Unknown, Verified 04/10/23 14:25) Unknown omeprazole Allergy (Unknown, Verified 04/10/23 14:25) Unknown risedronate sodium [From ACTONEL] Allergy (Unknown, Verified 04/10/23 14:25) UNKNOWN rofecoxib [From Vioxx] Allergy (Unknown, Verified 04/10/23 14:25) ankle swelling salmeterol [From ADVAIR DISKUS] Allergy (Unknown, Verified 04/10/23 14:25) HTN scallops [SCALLOPS] Allergy (Unknown, Verified 04/10/23 14:25) NAUSEA & VOMITING tramadol [TRAMADOL] Allergy (Unknown, Verified 04/10/23 14:25) THROAT TIGHTNESS verapamil [VERAPAMIL] Allergy (Unknown, Verified 04/10/23 14:25) IRREGULAR HEARTBEAT lifitegrast [From Xiidra] Allergy (Verified 04/10/23 14:25) blurred vision, headache, eye swelling cyclosporine [From Cequa] Adverse Reaction (Intermediate, Verified 04/10/23 14:25) Swelling fluticasone furoate [From Trelegy Ellipta] Adverse Reaction (Unknown, Verified 04/10/23 14:25) Uknown umeclidinium [From Trelegy Ellipta] Adverse Reaction (Unknown, Verified 04/10/23 14:25) Uknown vilanterol [From Trelegy Ellipta] Adverse Reaction (Unknown, Verified 04/10/23 14:25) Uknown Sulindac Adverse Reaction (Intermediate, Uncoded 04/10/23 14:25) Nausea HPI HPI Comments History of Present Illness Details The patient is a 72-year-old woman with history of asthma in addition to hiatal hernia. Overall her respiratory symptoms have been stable and she was able to get off her maintenance inhaler. She has been having symptoms and she feels is mainly due to hiatal hernia. She has been seen closely by GI. They tried multiple medications in addition to reflux diet. She did try Reglan the resulted in significant side effects. I did tell her that there are other promotility agents she can consider. She understands that having underlying reflux and hiatal hernia can result in worsening respiratory symptoms due to the microaspiration. I did provide the patient again with another reflux diet to make sure she is following the proper diet. We did review her last CT scan of the chest that demonstrated stable pulmonary nodules which was done at [facility]. Otherwise patient is without any other complaints. She still having significant reflux disease and regurgitation. She is followed closely by GI and now going to be followed up with surgery for possible surgical intervention for her persistent symptoms. We again talked about promotility agents, but, does not feel like dose going to work due to the fact that she has a pretty complicated hiatal hernia. We did again review her pulmonary nodules which appear to be stable for many years which is reassuring. 04/24/2022 the patient is here for pulmon brent follow-up visit. Overall the patient is doing fairly well. She has not had to use her inhalers much. She does have a rescue inhaler that she can use as needed. She also has episodes of chest tightness mainly in the substernal area. Sometimes she associates it with her reflux disease. She continues to be on the medication for the reflux and Country knows to follow reflux diet. Although she continues to have symptoms. Explained to her that sometimes the reflux can result in micro aspirations into the lungs. She does have some changes primarily in the left lower lobe that are suspicious for bronchiolitis which could be due to aspiration. Her last CT scan of the chest was back in April 2021 demonstrating some new 4 mm pulmonary nodules which are subsolid in nature. The other nodules were stable. Will have the patient start CPT with flutter valve to try to clear any mucus at all the airways and plan to repeat the CT scan in 6 months which be 18 month follow-up CT scan for the new nodules. 10/30/2022 a the patient is here for pulm onary follow-up visit. The patient is healing in recovering after having cervical surgery the anterior approach. She had back in June. After she lost her voice for some time. She was having hard time with her breathing or shortness of breath and also chest pain. She was given 2 days of Decadron but no more because the recovery process. The patient was evaluated by ENT and had a laryngoscopy without any significant findings. They recommended speech therapy and also a barium modified barium swallow. She then saw GI and switched over to a regular barium swallow. Question of the metal plate affecting her swallow. As far as her breathing has been okay she has not had to use her rescue inhaler. Although she is concerned about the chest pain. The patient has been sleeping on a positional bed and she does have sleep apnea but she has been maintaining positional therapy. She has been on omeprazole and also Carafate for her reflux disease. We talked about the importance of a reflux diet. Also at the barium swallows okay she can consider a promotility agent. As far as her pulmonary nodules are stable. She does have some bronchitis as within the airways themselves but otherwise clinically stable. After she gets the barium swallow she was having a message for further recommendations. 01/25/2023 the patient is here for a pul monary follow-up visit. She is doing relatively well from a respiratory status. She has been using the Xopenex as needed. Typically she has reflux issues is subsequently the reflux may exacerbate her breathing. Her rescue inhaler does help adjust partially. She is wondering if she can go back on QVAR. She were seemed to also help her. She is changing insurances so therefore may be better covered. I will go ahead and set of the QVAR again that she can use as prescribed. In addition to that she will be seen the GI doctor soon. She still having issues with reflux and also having issues with dysphagia. We also looked at her last CT scan that was done back in September 2022. It is reassuring that her pulmonary nodules are stable. She did have some slight inflammation of the right upper lung area suggesting some airways disease but it was minimal. No further imaging at this time. We will have her discuss additional imaging during the next visit. 04/10/2023 the patient is here for sick visit. Apparently she started developing worsening respiratory symptoms last 7-10 days. She was having cough in addition to shortness of breath and chest tightness. She went to an urgent care where she is found to have significant crackles on exam looked more than right suggesting of an atypical pneumonia. The patient is given a course of Z- Nilton in addition to short course of prednisone. She is already feeling better. Although she still feels some cough and some minimal wheezing. She has been using her inhalers. We did examine her lungs in her crackles are significantly better. She just has some trace crackles on the left lung now. Will go in request a chest x-ray to assess the area. If the area looks significantly abnormal then I will call her to give her additional medications. But at this point she would like to hold off on additional antibiotics. She also does not do well with prednisone. She will continue using her respiratory medications. she is having issues with her esophagus. She does have esophageal stricture and she did require dilation back in January of 2023. it was recommended she have a repeat procedure specially since she had significant scarring of the esophagus. I do believe that she is okay at this point and she may be able to proceed with the procedure. Since she is just now recovering from this illness I would least recommend she can wait least 2 weeks before having any interventions. [facility] Medical History (Updated 04/05/23 @ 12:33 by Joaquina Tolliver PA-C) History of trigger finger Right groin pain Cervical radiculitis Chronic sinusitis COVID-19 vaccine administered Trigger finger GERD (gastroesophageal reflux disease) FRANCESCA (obstructive sleep apnea) CAD (coronary artery disease) History of primary hyperparathyroidism Non-toxic multinodular goiter Osteoporosis Pulmonary nodules H/O gastroesophageal reflux (GERD) HLD (hyperlipidemia) HTN (hypertension) COPD (chronic obstructive pulmonary disease) Asthma History of aneurysm Migraine Depression PTSD (post-traumatic stress disorder) History of panic attacks Right inguinal hernia Anxiety Umbilical pain Edema Dizziness History of deviated nasal septum Medial epicondylitis of left elbow Fusion of spine, cervical region Surgical History (Updated 02/05/23 @ 09:46 by Beba Callahan) H/O cervical spine surgery Hx of hand surgery Hx of right inguinal hernia repair History of hernia repair Hx of colonoscopy History of esophagogastroduodenoscopy (EGD) S/P repair of paraesophageal hernia H/O decompression of ulnar nerve Status post ablation of incompetent vein using laser History of cardiac catheterization History of eyelid surgery History of appendectomy History of parathyroidectomy History of cholecystectomy Hx of cataract surgery Hx of shoulder surgery S/P cubital tunnel release S/P arthroscopic surgery of right knee History of lumpectomy of both breasts History of hysterectomy Hx of adenoidectomy Hx of tonsillectomy Hx of eye surgery Family History Father Liver cancer Psoriasis Cancer Mental health disorder Mother Cervical cancer Ovarian cancer Heart attack Substance use disorder Social History Household Members: Children and None Housing: House Alcohol intake: current Alcohol intake frequency: does not drink Patient Tobacco Use Status: Former Tobacco user Quit Date: 1979 Tobacco use type: Cigarette e-Cigarette/Vaping Use: Never Used Second Hand Smoke Exposure: No service: No Current occupational status: employed Cognitive needs: No Hearing needs: No Vision needs: No Review of Systems Const Reports body aches, Denies chills, Denies fatigue and Denies fever(s) ENT Reports otalgia (R ear), Reports nasal congestion, Reports nasal discharge, Reports sinus pressure, Denies sore throat and Denies throat swelling Card Denies chest pain, Denies rapid heart rate and Reports dyspnea Resp Reports chest congestion, Reports cough, Denies hemoptysis, Denies excessive phlegm production, Reports dyspnea and Reports wheezing GI Denies abdominal pain Musc Reports back pain Endo Denies fatigue Aller/Immun Denies throat swelling and Reports wheezing Physical Exam Vital Signs: Last Vital Signs Pulse 75 04/10/23 14:24 Pulse Ox 98 04/10/23 14:24 Oxygen Delivery Method Room Air 04/10/23 14:24 BMI result Body Mass Index 32.6 Const General: alert Eyes Pupils: Equal, round and reactive pupils present Neck Neck: Yes normal visual inspection, Yes full ROM and Yes no lymphadenopathy Chest Chest palpation & inspection: normal inspection of the chest Resp Auscultation: clear to auscultation bilaterally, rales on the left, no wheezes and diminished lung sounds Cardio Rate: regular rate Rhythm: regular rhythm Heart sounds: S1 normal heart sound present and S2 normal heart sound present GI Palpation (GI): Soft to palpation and nontender Auscultation: normal bowel sounds General: Yes no CVA tenderness Back/Spine/Pelvis Back: no CVA tenderness Skin General skin exam: rashes and/or lesions noted Neuro Cranial nerves: Yes Equal, round and reactive pupils present Assessment & Plan Assessment & Plan (1) FRANCESCA (obstructive sleep apnea): Code(s): G47.33 - Obstructive sleep apnea (adult) (pediatric) (2) Dyspnea on exertion: Code(s): R06.00 - Dyspnea, unspecified (3) Pulmonary nodules: Code(s): R91.8 - Other nonspecific abnormal finding of lung field (4) GERD (gastroesophageal reflux disease): Code(s): K21.9 - Gastro-esophageal reflux disease without esophagitis Qualifiers: Esophagitis presence: without esophagitis Qualified Code(s): K21.9 - Gastro-esophageal reflux disease without esophagitis (5) Atypical pneumonia: Code(s): J18.9 - Pneumonia, unspecified organism Plan CXR Continue short-acting beta agonist as needed (xopenex) continue QVAR Reflux diet Positional therapy avoiding sleeping back. pre op. ok to proceed with EGD and dilation after couple weeks of rest follow-up in 6 months Orders: Orders XR chest 2V Today J18.9 - Pneumonia, unspecified organism Coding Level of Care Code Est Pt Level 4 (19133) Diagnoses FRANCESCA (obstructive sleep apnea) G47.33 Dyspnea on exertion R06.00 Pulmonary nodules R91.8 Gastroesophageal reflux disease without esophagitis K21.9 Esophagitis presence: without esophagitis Atypical pneumonia J18.9 Time Spent (min) 17
== END 2023-04-10 15:04 | disposition home or self-care (01) ==
PROVIDERS: PCP Nurse Practitioner Family; Visit Provider Hospitalist
DX: G47.33 Obstructive sleep apnea (adult) (pediatric) (principal); R06.00 Dyspnea, unspecified; R91.8 Other nonspecific abnormal finding of lung field; K21.9 Gastro-esophageal reflux disease without esophagitis; J18.9 Pneumonia, unspecified organism
CPT/HCPCS: 99214

== ENCOUNTER 2023-05-08 08:11 | Outpatient (AMB) | payer MEDICARE, MEDICAID, SELFPAY ==
--- NOTE | 2023-05-08 08:15 | A.OFFVIS_ITS ---
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: No Allergies Ycfyrdk-LHF-QeI Reductase Inhibitor [[id number] REDUCTASE INHIBITOR] Allergy (Severe, Verified 04/10/23 14:25) JOINT PAIN amlodipine [AMLODIPINE] Allergy (Intermediate, Verified 04/10/23 14:25) PALIPITATIONS baclofen [BACLOFEN] Allergy (Intermediate, Verified 04/10/23 14:25) LETHARGY Beta-Blockers (Beta-Adrenergic Bloc Allergy (Intermediate, Verified 04/10/23 14:25) BRADYCARDIA budesonide [From SYMBICORT] Allergy (Intermediate, Verified 04/10/23 14:25) HOARSENESS Chocolate Allergy (Intermediate, Verified 04/10/23 14:25) Itching ezetimibe [From ZETIA] Allergy (Intermediate, Verified 04/10/23 14:25) JOINT PAIN, ELEVATED CPK ibandronate sodium [From BONIVA] Allergy (Intermediate, Verified 04/10/23 14:25) CHEST PAIN latex [LATEX] Allergy (Intermediate, Verified 04/10/23 14:25) RASH-SENSITIVITY lisinopril [LISINOPRIL] Allergy (Intermediate, Verified 04/10/23 14:25) COUGH, really bad cough, cough meloxicam [From MOBIC] Allergy (Intermediate, Verified 04/10/23 14:25) GI UPSET mometasone furoate [From DULERA] Allergy (Intermediate, Verified 04/10/23 14:25) COUGH Penicillins [PENICILLINS] Allergy (Intermediate, Verified 04/10/23 14:25) RASH pregabalin [From LYRICA] Allergy (Intermediate, Verified 04/10/23 14:25) RASH,BLURRED VISION raloxifene [From EVISTA] Allergy (Intermediate, Verified 04/10/23 14:25) GERD sertraline [From ZOLOFT] Allergy (Intermediate, Verified 04/10/23 14:25) SKIN CRAWLING spironolactone [SPIRONOLACTONE] Allergy (Intermediate, Verified 04/10/23 14:25) RASH, ?? psoriasis strawberry [STRAWBERRY] Allergy (Intermediate, Verified 04/10/23 14:25) ITCHING tiotropium [From SPIRIVA WITH HANDIHALER] Allergy (Intermediate, Verified 04/10/23 14:25) RAW THROAT adhesive [ADHESIVE] Allergy (Unknown, Verified 04/10/23 14:25) RASH Atrovent Allergy (Unknown, Verified 04/10/23 14:25) Unknown dexlansoprazole [From DEXILANT] Allergy (Unknown, Verified 04/10/23 14:25) UNKNOWN doxycycline [DOXYCYCLINE] Allergy (Unknown, Verified 04/10/23 14:25) SEVERE NOYOLA, HEARTBURN Doxycycline Hyclate Allergy (Unknown, Verified 04/10/23 14:25) headache esomeprazole [Nexium] Allergy (Unknown, Verified 04/10/23 14:25) Unknown fluticasone [From ADVAIR DISKUS] Allergy (Unknown, Verified 04/10/23 14:25) HTN gabapentin [From NEURONTIN] Allergy (Unknown, Verified 04/10/23 14:25) THROAT TIGHTNESS glucosamine Allergy (Unknown, Verified 04/10/23 14:25) Unknown metoclopramide [From REGLAN] Allergy (Unknown, Verified 04/10/23 14:25) LETHARGY monosodium glutamate [MSG] Allergy (Unknown, Verified 04/10/23 14:25) HEADACHE naproxen [From ALEVE] Allergy (Unknown, Verified 04/10/23 14:25) FLUSH niacin Allergy (Unknown, Verified 04/10/23 14:25) Unknown omeprazole Allergy (Unknown, Verified 04/10/23 14:25) Unknown risedronate sodium [From ACTONEL] Allergy (Unknown, Verified 04/10/23 14:25) UNKNOWN rofecoxib [From Vioxx] Allergy (Unknown, Verified 04/10/23 14:25) ankle swelling salmeterol [From ADVAIR DISKUS] Allergy (Unknown, Verified 04/10/23 14:25) HTN scallops [SCALLOPS] Allergy (Unknown, Verified 04/10/23 14:25) NAUSEA & VOMITING tramadol [TRAMADOL] Allergy (Unknown, Verified 04/10/23 14:25) THROAT TIGHTNESS verapamil [VERAPAMIL] Allergy (Unknown, Verified 04/10/23 14:25) IRREGULAR HEARTBEAT lifitegrast [From Xiidra] Allergy (Verified 04/10/23 14:25) blurred vision, headache, eye swelling cyclosporine [From Cequa] Adverse Reaction (Intermediate, Verified 04/10/23 14:25) Swelling fluticasone furoate [From Trelegy Ellipta] Adverse Reaction (Unknown, Verified 04/10/23 14:25) Uknown umeclidinium [From Trelegy Ellipta] Adverse Reaction (Unknown, Verified 04/10/23 14:25) Uknown vilanterol [From Trelegy Ellipta] Adverse Reaction (Unknown, Verified 04/10/23 14:25) Uknown Sulindac Adverse Reaction (Intermediate, Uncoded 04/10/23 14:25) Nausea Medication List - Last Reconciled 05/08/23 by Maikel Yadav MD aspirin (Adult Aspirin Regimen) 81 mg PO DAILY beclomethasone dipropionate 80 mcg/actuation (Qvar RediHaler) 1 inh inhalation BID 30 days betamethasone dipropionate 0.05% 1 appl topical DIRECTED Bifidobacterium infantis (Align) 4 mg PO DAILY cetirizine (Zyrtec) 10 mg PO DAILY PRN cholecalciferol (vitamin D3) 25 mcg PO DAILY 30 days cyclosporine 0.05% (Restasis) 1 drp ophthalmic (eye) Q12H denosumab (Prolia) 60 mg subcut [id number] dextran 70-hypromellose (PF) 0.1-0.3 % (Artificial Tears (PF)) 1 drp ophthalmic (eye) BEDTIME docusate sodium (Colace) 100 mg PO BID evolocumab (Repatha SureClick) 140 mg subcut Q2W flunisolide 2 sprays intranasal BID PRN hydrochlorothiazide 12.5 mg PO DAILY 90 days ibuprofen (IBU) 600 mg PO Q8H PRN 90 days levalbuterol tartrate 45 mcg/actuation 2 puffs inhalation DAILY lidocaine 5% 1 patch topical DAILY losartan 25 mg PO DAILY 90 days magnesium oxide 500 mg PO DAILY montelukast 10 mg PO DAILY pantoprazole 40 mg PO BID prednisolone acetate 1% 1 drp ophthalmic (eye) QID sucralfate 1 g PO BID 90 days HPI HPI Comments History of Present Illness Details Adali comes for follow-up. She appears anxious. She says recently her job situation has changed and she has become a lot more stress and jumpy. As a result of blood pressure at home have been elevated. She says she gets headaches with it. She denies any significant worsening cardiac symptoms. Says does not exercise much and when she walks up stairs she gets gets short of breath but this is not clear. She also gets chest tightness related to esophageal stricture and says she wants to scared be scheduled for esophageal dilatation. She has currently does not have exertional chest pain. She is taking all her medications. No lightheadedness, syncope. [facility] Medical History History of trigger finger Right groin pain Cervical radiculitis Chronic sinusitis COVID-19 vaccine administered Trigger finger GERD (gastroesophageal reflux disease) FRANCESCA (obstructive sleep apnea) CAD (coronary artery disease) History of primary hyperparathyroidism Non-toxic multinodular goiter Osteoporosis Pulmonary nodules H/O gastroesophageal reflux (GERD) HLD (hyperlipidemia) HTN (hypertension) COPD (chronic obstructive pulmonary disease) Asthma History of aneurysm Migraine Depression PTSD (post-traumatic stress disorder) History of panic attacks Right inguinal hernia Anxiety Umbilical pain Edema Dizziness History of deviated nasal septum Medial epicondylitis of left elbow Fusion of spine, cervical region Surgical History H/O cervical spine surgery Hx of hand surgery Hx of right inguinal hernia repair History of hernia repair Hx of colonoscopy History of esophagogastroduodenoscopy (EGD) S/P repair of paraesophageal hernia H/O decompression of ulnar nerve Status post ablation of incompetent vein using laser History of cardiac catheterization History of eyelid surgery History of appendectomy History of parathyroidectomy History of cholecystectomy Hx of cataract surgery Hx of shoulder surgery S/P cubital tunnel release S/P arthroscopic surgery of right knee History of lumpectomy of both breasts History of hysterectomy Hx of adenoidectomy Hx of tonsillectomy Hx of eye surgery Family History Father Liver cancer Psoriasis Cancer Mental health disorder Mother Cervical cancer Ovarian cancer Heart attack Substance use disorder Social History Household Members: Children and None Housing: House Alcohol intake: current Alcohol intake frequency: does not drink Patient Tobacco Use Status: Former Tobacco user Quit Date: 1979 Tobacco use type: Cigarette e-Cigarette/Vaping Use: Never Used Second Hand Smoke Exposure: No service: No Current occupational status: employed Cognitive needs: No Hearing needs: No Vision needs: No Review of Systems Const Denies chills, Denies fatigue, Denies fever(s), Denies frequent falls, Denies weakness, Denies weight gain and Denies weight loss ENT Denies dizziness Card Denies chest pain, Denies leg edema, Denies lightheadedness, Denies palpitations, Denies dyspnea, Denies dyspnea on exertion, Denies orthopnea and Denies other (loss of consciousness) Resp Denies cough, Denies dyspnea and Denies dyspnea on exertion GI Denies hematochezia and Denies change in stool character Musc Denies abnormal gait, Denies muscle weakness, Denies numbness, Denies radiating pain into limb and Denies tingling Neuro Denies abnormal gait, Denies dizziness, Denies frequent falls, Denies numbness, Denies tingling and Denies weakness Endo Denies fatigue and Denies palpitations Physical Exam Vital Signs: Last Vital Signs Pulse 73 05/08/23 08:16 BP 120/74 05/08/23 08:16 BMI result Body Mass Index 33.2 Const General: cooperative, healthy appearing, comfortable and no acute distress Neck Neck: Yes normal visual inspection and Yes no JVD Resp Effort & Inspection: normal respiratory effort Auscultation: clear to auscultation bilaterally, no crackles, no rales, no rhonchi and no wheezes Cardio Jugular venous distension: no JVD Rate: regular rate Rhythm: regular rhythm Heart sounds: S1 normal heart sound present, S2 normal heart sound present, no gallops, no murmurs and no rubs Peripheral pulses: Peripheral pulses 2+ throughout GI Inspection: Yes normal to inspection Extrem General: Yes normal to inspection and No no pedal edema Psych Appearance: grossly normal Mental Status: mental status grossly normal Speech and movement: Normal speech and movement present Office Procedures EKG Details: EKG shows normal sinus rhythm with poor R-wave progression [id number], Complete Assessment & Plan Assessment & Plan (1) CAD (coronary artery disease): Code(s): I25.10 - Atherosclerotic heart disease of [place] coronary artery without angina pectoris Plan: CAD with diffuse disease as well as vascular atherosclerosis in the abdominal aorta. Nonobstructive CAD. No concerning symptoms at this point time. Continue aggressive medical therapy. Not tolerant to statin therapy. Currently on PCSK9 inhibitor therapy. Advise follow-up lipid panel at least every 6 months. Target goal LDL less than 70 mg/dL. Currently no further workup is indicated. Continue low-dose aspirin therapy for life. Continue aggressive blood pressure control. (2) PVCs (premature ventricular contractions): Code(s): I49.3 - Ventricular premature depolarization Plan: PVCs which are currently suppressed. She has not had any significant symptoms related to it. Avoidance of stress and stimulants was discussed. Advised to call me with any worsening symptoms. (3) HTN (hypertension): Code(s): I10 - Essential (primary) hypertension Plan: Hypertension with labile nature with elevated blood pressure this time most likely related to increased stress at work. Advised stress mitigation strategy. Given her prior low blood pressure she is and lightheadedness will switch her to losartan 25 mg twice a day. Continue hydrochlorothiazide therapy. Avoidance of stimulants was discussed advised to monitor blood pressure at home maintain a log. Low-salt diet was discussed advised to maintain adequate hydration. Follow up in the clinic in 1 year's time, sooner p.r.n.. Thank you for allowing me to partake in the care Orders: Orders Lipid Panel Today I25.10 - Atherosclerotic heart disease of [place] coronary artery without angina pectoris Basic Metabolic Panel Today I25.10 - Atherosclerotic heart disease of [place] coronary artery without angina pectoris Medications: Changed From losartan 25 mg PO DAILY 90 days 90 tabs 1RF I25.10 - Atherosclerotic heart disease of [place] coronary artery without angina pectoris To losartan 25 mg PO BID 90 days 180 tabs 1RF I25.10 - Atherosclerotic heart disease of [place] coronary artery without angina pectoris Coding Level of Care Code Est Pt Level 4 (56388) Diagnoses CAD (coronary artery disease) I25.10 PVCs (premature ventricular contractions) I49.3 HTN (hypertension) I10 CPT Codes EKG - CPT: 93282-[id number], Complete ([id number])
[2023-05-08 08:16] VITALS: BP 120/74; PULSE 73; BMI 33.2
== END 2023-05-08 08:55 | disposition home or self-care (01) ==
PROVIDERS: Visit Provider Internal Medicine Cardiovascular Disease
DX: I25.10 Atherosclerotic heart disease of native coronary artery without angina pectoris (principal); I49.3 Ventricular premature depolarization; I10 Essential (primary) hypertension
CPT/HCPCS: 93010; 99214

== ENCOUNTER 2023-05-08 08:11 | Outpatient (REF) | payer MEDICARE, MEDICAID, SELFPAY ==
--- NOTE | ~2023-05-08 | XR_ITS ---
EXAMINATION: XR CHEST CLINICAL INFORMATION: Pneumonia unspecified organism COMPARISON: Chest 04/10/2023, 09/15/2019 TECHNIQUE: 2 views of the chest were obtained. FINDINGS: Again seen is cervical hardware. Surgical clips are also seen in the right upper quadrant of the abdomen. The lungs are well expanded. No focal consolidation, interstitial pulmonary edema or pneumothorax. No pleural effusion. The cardiomediastinal silhouette is within normal limits. Thoracolumbar scoliosis with mild degenerative changes is again seen. XR/XR chest 2V IMPRESSION: No acute cardiopulmonary disease.
[2023-05-08 10:03] LABS: Anion Gap 13 (12-20); Blood Urea Nitrogen 15 mg/dL (9-16); Calcium 8.6 mg/dL (8.4-10.2); Carbon Dioxide 28 mmol/L (22-29); Chloride 106 mmol/L (96-108); Cholesterol 164 mg/dL (<200); Estimated Glomerular Filt Rate > 60; Glucose Random 93 mg/dL (60-115); HDL Cholesterol 47 mg/dL (>40); LDL Cholesterol Calculated 90 mg/dL (<100); Potassium 3.9 mmol/L (3.3-5.1); Sodium 143 mmol/L (135-145); Triglycerides 135 mg/dL (<150)
== END 2023-05-08 08:12 | disposition home or self-care (01) ==
LOC: HO.LAB 08:11
PROVIDERS: Absent Provider Internal Medicine Endocrinology, Diabetes & Metabolism; PCP Nurse Practitioner Family; Referring Provider Hospitalist; Visit Provider Internal Medicine Cardiovascular Disease
DX: I25.10 Atherosclerotic heart disease of native coronary artery without angina pectoris (principal); J18.9 Pneumonia, unspecified organism; R51.9 Headache, unspecified; I49.3 Ventricular premature depolarization; I10 Essential (primary) hypertension; Z79.899 Other long term (current) drug therapy
CPT/HCPCS: 36415; 71046; 80048; 80061; 93005; 99212

== ENCOUNTER 2023-05-15 11:49 | Day surgery (SDC) | payer MEDICARE, MEDICAID, SELFPAY ==
[2023-05-15 12:05] VITALS: BMI 32.5
[2023-05-15 12:16] VITALS: BP 146/66; PULSE 83; RESP 16; TEMP 36.4; O2SAT 98
--- NOTE | 2023-05-15 12:18 | P.CONAN_ITS ---
HPI - Anesthesia Eval Consult details Narrative: 73 yo female patient for EGD with dilatation. rECENT ATYPICAL PNEUMONIA 04/05/23. Treated with antibiotics + prednisone. Feels much better. CXR 05/08/23- Clear. PMFSH Active Problems Active Problems: All Active Problems (Updated 05/15/23 @ 12:20 by Karime Ceballos MD) Atypical pneumonia (Acute) Urinary urgency (Acute) Myasthenia gravis (Acute)- Tested 01/2023. Negative. No meds Choking (Acute) Postmenopausal (Acute) Physical exam (Acute) Cervical myofascial pain syndrome (Acute) Ankle pain, right (Acute) Hand pain, right (Acute) Fall (on) (from) other stairs and steps, initial encounter (Acute) Allergies (Acute) Sprain of right ankle (Acute) PVCs (premature ventricular contractions) (Acute) Sinusitis (Acute) Greater trochanteric pain syndrome (Acute) Sacroiliac joint pain (Acute) White coat syndrome with diagnosis of hypertension (Acute) Chronic left sacroiliac joint pain (Acute) Lumbar degenerative disc disease (Acute) Lumbar spondylosis (Acute) Lumbar post-laminectomy syndrome (Acute) Right hip pain (Acute) Microscopic hematuria (Acute) Elevated alkaline phosphatase level (Acute) Adverse reaction to COVID-19 vaccine (Acute) Fatigue (Acute) Nausea & vomiting (Acute) Occipital neuralgia of left side (Acute) Failed back syndrome of cervical spine (Acute) Cervical spondylosis (Acute) Muscle spasm (Acute) Right trigger finger (Acute) Urinary tract infection (Acute) Upper respiratory tract infection (Acute) Cervical stenosis of spine (Acute) Varicose veins of left lower extremity with inflammation (Acute) Allergies (Acute) Fatigue (Acute) Urinary frequency (Acute) Arthralgia (Acute) Varicose veins of right lower extremity with inflammation (Acute) Headache (Acute) Osteoporosis (Acute) Bronchiolitis (Acute) Dyspnea on exertion (Acute) Atypical chest pain (Acute) Hyperlipidemia (Acute) Screening for breast cancer (Acute) Rectal urgency (Acute) Inguinal hernia (Acute) HTN (hypertension) (Acute) Right groin pain (Acute) Cervical radiculitis (Acute) Chronic sinusitis (Acute) GERD (gastroesophageal reflux disease) (Acute) FRANCESCA (obstructive sleep apnea) (Acute) CAD (coronary artery disease) (Acute) History of primary hyperparathyroidism (Acute) Non-toxic multinodular goiter (Acute) Osteoporosis (Acute) Pulmonary nodules (Acute) H/O gastroesophageal reflux (GERD) (Acute) Right inguinal hernia (Acute) Anxiety (Acute) Edema (Acute) Dizziness (Acute) Past Medical History Medical History History of trigger finger Right groin pain Cervical radiculitis Chronic sinusitis COVID-19 vaccine administered Trigger finger GERD (gastroesophageal reflux disease) FRANCESCA (obstructive sleep apnea) CAD (coronary artery disease) History of primary hyperparathyroidism Non-toxic multinodular goiter Osteoporosis Pulmonary nodules H/O gastroesophageal reflux (GERD) HLD (hyperlipidemia) HTN (hypertension) COPD (chronic obstructive pulmonary disease) Asthma History of aneurysm Migraine Depression PTSD (post-traumatic stress disorder) History of panic attacks Right inguinal hernia Anxiety Umbilical pain Edema Dizziness History of deviated nasal septum Medial epicondylitis of left elbow Fusion of spine, cervical region Family History Family History Father Liver cancer Psoriasis Cancer Mental health disorder Mother Cervical cancer Ovarian cancer Heart attack Substance use disorder Family history of problems with anesthesia: No Surgical History Surgical History H/O cervical spine surgery Hx of hand surgery Hx of right inguinal hernia repair History of hernia repair Hx of colonoscopy History of esophagogastroduodenoscopy (EGD) S/P repair of paraesophageal hernia H/O decompression of ulnar nerve Status post ablation of incompetent vein using laser History of cardiac catheterization History of eyelid surgery History of appendectomy History of parathyroidectomy History of cholecystectomy Hx of cataract surgery Hx of shoulder surgery S/P cubital tunnel release S/P arthroscopic surgery of right knee History of lumpectomy of both breasts History of hysterectomy Hx of adenoidectomy Hx of tonsillectomy Hx of eye surgery History of Problems with Anesthesia: No Social History Social History Household Members: Children and None Housing: House Alcohol intake: current Alcohol intake frequency: does not drink Patient Tobacco Use Status: Former Tobacco user Quit Date: 1979 Tobacco use type: Cigarette e-Cigarette/Vaping Use: Never Used Second Hand Smoke Exposure: No Use of substances other than those prescribed or required for medical reasons: No Are you DNR?: Yes Advance Directives: No Advance Directives Information Provided: Yes service: No Current occupational status: employed Cognitive needs: No Hearing needs: No Vision needs: No Meds Allergies Allergy/AdvReac Type Severity Reaction Status Date / Time [id number] Reductase Allergy Severe JOINT PAIN Verified 05/15/23 12:26 Inhibitor [[id number] REDUCTASE INHIBITOR] amlodipine [AMLODIPINE] Allergy Intermediate PALIPITATIO Verified 05/15/23 12:26 NS baclofen [BACLOFEN] Allergy Intermediate LETHARGY Verified 05/15/23 12:26 Beta-Blockers Allergy Intermediate BRADYCARDIA Verified 05/15/23 12:26 (Beta-Adrenergic Bloc budesonide [From SYMBICORT] Allergy Intermediate HOARSENESS Verified 05/15/23 12:26 Chocolate Allergy Intermediate Itching Verified 05/15/23 12:26 ezetimibe [From ZETIA] Allergy Intermediate JOINT Verified 05/15/23 12:26 PAIN, ELEVATED CPK ibandronate sodium Allergy Intermediate CHEST PAIN Verified 05/15/23 12:26 [From BONIVA] latex [LATEX] Allergy Intermediate RASH-SENSIT Verified 05/15/23 12:26 IVITY lisinopril [LISINOPRIL] Allergy Intermediate COUGH, Verified 05/15/23 12:26 really bad cough, cough meloxicam [From MOBIC] Allergy Intermediate GI UPSET Verified 05/15/23 12:26 mometasone furoate Allergy Intermediate COUGH Verified 05/15/23 12:26 [From DULERA] Penicillins [PENICILLINS] Allergy Intermediate RASH Verified 05/15/23 12:26 pregabalin [From LYRICA] Allergy Intermediate RASH,BLURRED Verified 05/15/23 12:26 VISION raloxifene [From EVISTA] Allergy Intermediate GERD Verified 05/15/23 12:26 sertraline [From ZOLOFT] Allergy Intermediate SKIN Verified 05/15/23 12:26 CRAWLING spironolactone Allergy Intermediate RASH, ?? Verified 05/15/23 12:26 [SPIRONOLACTONE] psoriasis strawberry [STRAWBERRY] Allergy Intermediate ITCHING Verified 05/15/23 12:26 tiotropium Allergy Intermediate RAW THROAT Verified 05/15/23 12:26 [From SPIRIVA WITH HANDIHALER] adhesive [ADHESIVE] Allergy Unknown RASH Verified 05/15/23 12:26 Atrovent Allergy Unknown Unknown Verified 05/15/23 12:26 dexlansoprazole Allergy Unknown UNKNOWN Verified 05/15/23 12:26 [From DEXILANT] doxycycline [DOXYCYCLINE] Allergy Unknown SEVERE NOYOLA, Verified 05/15/23 12:26 HEARTBURN Doxycycline Hyclate Allergy Unknown headache Verified 05/15/23 12:26 esomeprazole [Nexium] Allergy Unknown Unknown Verified 05/15/23 12:26 fluticasone Allergy Unknown HTN Verified 05/15/23 12:26 [From ADVAIR DISKUS] gabapentin [From NEURONTIN] Allergy Unknown THROAT Verified 05/15/23 12:26 TIGHTNESS glucosamine Allergy Unknown Unknown Verified 05/15/23 12:26 metoclopramide [From REGLAN] Allergy Unknown LETHARGY Verified 05/15/23 12:26 monosodium glutamate [MSG] Allergy Unknown HEADACHE Verified 05/15/23 12:26 naproxen [From ALEVE] Allergy Unknown FLUSH Verified 05/15/23 12:26 niacin Allergy Unknown Unknown Verified 05/15/23 12:26 omeprazole Allergy Unknown Unknown Verified 05/15/23 12:26 risedronate sodium Allergy Unknown UNKNOWN Verified 05/15/23 12:26 [From ACTONEL] rofecoxib [From Vioxx] Allergy Unknown ankle Verified 05/15/23 12:26 swelling salmeterol Allergy Unknown HTN Verified 05/15/23 12:26 [From ADVAIR DISKUS] scallops [SCALLOPS] Allergy Unknown NAUSEA & Verified 05/15/23 12:26 VOMITING tramadol [TRAMADOL] Allergy Unknown THROAT Verified 05/15/23 12:26 TIGHTNESS verapamil [VERAPAMIL] Allergy Unknown IRREGULAR Verified 05/15/23 12:26 HEARTBEAT lifitegrast [From Xiidra] Allergy blurred Verified 05/15/23 12:26 vision, headache, eye swelling cyclosporine [From Cequa] AdvReac Intermediate Swelling Verified 05/15/23 12:26 fluticasone furoate AdvReac Unknown Uknown Verified 05/15/23 12:26 [From Trelegy Ellipta] umeclidinium AdvReac Unknown Uknown Verified 05/15/23 12:26 [From Trelegy Ellipta] vilanterol AdvReac Unknown Uknown Verified 05/15/23 12:26 [From Trelegy Ellipta] Sulindac AdvReac Intermediate Nausea Uncoded 04/10/23 14:25 Home Medications ?Medication ?Instructions ?Recorded ?Confirmed ?Last Taken ?Type Bifidobacterium infantis 4 mg 4 mg PO DAILY 11/17/19 05/15/23 Unknown History capsule (Align) aspirin 81 mg tablet,delayed 81 mg PO DAILY 11/17/19 05/15/23 05/14/23 History release (Adult Aspirin Regimen) betamethasone dipropionate 0.05 % 1 applic topical DIRECTED 11/17/19 05/15/23 Unknown History topical cream cyclosporine 0.05 % eye drops in a 1 drp ophthalmic (eye) Q12H 11/17/19 05/15/23 Unknown History dropperette (Restasis) docusate sodium 100 mg capsule 100 mg PO BID 11/17/19 05/15/23 Unknown History (Colace) magnesium oxide 500 mg PO DAILY 11/17/19 05/15/23 Unknown History cetirizine 10 mg tablet (Zyrtec) 10 mg PO DAILY PRN Allergy Symptoms 01/16/22 05/15/23 Unknown History prednisolone acetate 1 % eye 1 drp ophthalmic (eye) QID 12/25/22 05/15/23 Unknown History drops,suspension dextran 70-hypromellose (PF) 0.1 1 drp ophthalmic (eye) BEDTIME 03/19/23 05/15/23 Unknown History %-0.3 % eye drops in a dropperette (Artificial Tears (PF)) bempedoic acid 180 mg tablet 180 mg PO DAILY cholesterol 05/15/23 05/15/23 05/15/23 06:00 History (Nexletol) Exam Height,Weight and Vital Signs: Height 4 ft 11 in Weight 73.028 kg Vital Signs Temp Pulse Resp BP Pulse Ox O2 Del Method 05/15/23 12:16 97.5 F 83 16 146/66 H 98 Room Air Airway Mallampati Class: II TM Dist: >3cm Neck ROM: Full (S/p cervical fusion with plate. Good extension) Loose/Missing/Broken Teeth: No (Streator intact. Denies broken, loose, missing teeth) Heart: RRR Lungs: CTAB. No crackles. No wheezes Assessment and Plan Assessment Anesthesia Assessment: Anesthesia Plan Discussed and Chart Reviewed Final Anesthetic Review Family History of Problems with Anesthesia: No History of Problems with Anesthesia: No NPO: Yes ASA Class: III Final Preanesthetic Review: No Changes in Pt Med Stat, Meds/Allgs Chart Reviewed, Consent Obtained/Reviewed, Anes Risks/Benef Reviewed and DNR Form (If Appl.) Patient Risk: Intermediate Procedure Risk: Low Assessment/Block/Sedation in SS: Assess/Block/Sedation-SS Anesthetic Plan Anesthetic Plan: TIVA Disposition: Standard PACU
--- NOTE | 2023-05-15 12:48 | P.HPSUR_ITS ---
Pre-Procedural Eval Section A - 24 Hr Update-Section A only Date of Service: 05/15/23 Section B - Complete if H&P > 30 days Chief Complaint: Gastro-esophageal reflux disease without esophagit Relevant Family History (Specify if Yes): No Relevant Social History: None Present Medications: see Short Stay Collaborative assessment Medical History: Significant History (History of trigger finger Right groin pain Cervical radiculitis Chronic sinusitis COVID-19 vaccine administered Trigger finger GERD (gastroesophageal reflux disease) FRANCESCA (obstructive sleep apnea) CAD (coronary artery disease) History of primary hyperparathyroidism Non-toxic multinodular goiter Osteo) History of Previous Operations: Relevant previous surgery/procedure and date(s) (H/O cervical spine surgery Hx of hand surgery Hx of right inguinal hernia repair History of hernia repair Hx of colonoscopy History of esophagogastroduodenoscopy (EGD) S/P repair of paraesophageal hernia H/O decompression of ulnar nerve Status post ablation of incompetent vein using laser History of) Allergies: Allergies Allergy/AdvReac Type Severity Reaction Status Date / Time [id number] Reductase Allergy Severe JOINT PAIN Verified 05/15/23 12:26 Inhibitor [[id number] REDUCTASE INHIBITOR] amlodipine [AMLODIPINE] Allergy Intermediate PALIPITATIO Verified 05/15/23 12:26 NS baclofen [BACLOFEN] Allergy Intermediate LETHARGY Verified 05/15/23 12:26 Beta-Blockers Allergy Intermediate BRADYCARDIA Verified 05/15/23 12:26 (Beta-Adrenergic Bloc budesonide [From SYMBICORT] Allergy Intermediate HOARSENESS Verified 05/15/23 12:26 Chocolate Allergy Intermediate Itching Verified 05/15/23 12:26 ezetimibe [From ZETIA] Allergy Intermediate JOINT Verified 05/15/23 12:26 PAIN, ELEVATED CPK ibandronate sodium Allergy Intermediate CHEST PAIN Verified 05/15/23 12:26 [From BONIVA] latex [LATEX] Allergy Intermediate RASH-SENSIT Verified 05/15/23 12:26 IVITY lisinopril [LISINOPRIL] Allergy Intermediate COUGH, Verified 05/15/23 12:26 really bad cough, cough meloxicam [From MOBIC] Allergy Intermediate GI UPSET Verified 05/15/23 12:26 mometasone furoate Allergy Intermediate COUGH Verified 05/15/23 12:26 [From DULERA] Penicillins [PENICILLINS] Allergy Intermediate RASH Verified 05/15/23 12:26 pregabalin [From LYRICA] Allergy Intermediate RASH,BLURRED Verified 05/15/23 12:26 VISION raloxifene [From EVISTA] Allergy Intermediate GERD Verified 05/15/23 12:26 sertraline [From ZOLOFT] Allergy Intermediate SKIN Verified 05/15/23 12:26 CRAWLING spironolactone Allergy Intermediate RASH, ?? Verified 05/15/23 12:26 [SPIRONOLACTONE] psoriasis strawberry [STRAWBERRY] Allergy Intermediate ITCHING Verified 05/15/23 12:26 tiotropium Allergy Intermediate RAW THROAT Verified 05/15/23 12:26 [From SPIRIVA WITH HANDIHALER] adhesive [ADHESIVE] Allergy Unknown RASH Verified 05/15/23 12:26 Atrovent Allergy Unknown Unknown Verified 05/15/23 12:26 dexlansoprazole Allergy Unknown UNKNOWN Verified 05/15/23 12:26 [From DEXILANT] doxycycline [DOXYCYCLINE] Allergy Unknown SEVERE NOYOLA, Verified 05/15/23 12:26 HEARTBURN Doxycycline Hyclate Allergy Unknown headache Verified 05/15/23 12:26 esomeprazole [Nexium] Allergy Unknown Unknown Verified 05/15/23 12:26 fluticasone Allergy Unknown HTN Verified 05/15/23 12:26 [From ADVAIR DISKUS] gabapentin [From NEURONTIN] Allergy Unknown THROAT Verified 05/15/23 12:26 TIGHTNESS glucosamine Allergy Unknown Unknown Verified 05/15/23 12:26 metoclopramide [From REGLAN] Allergy Unknown LETHARGY Verified 05/15/23 12:26 monosodium glutamate [MSG] Allergy Unknown HEADACHE Verified 05/15/23 12:26 naproxen [From ALEVE] Allergy Unknown FLUSH Verified 05/15/23 12:26 niacin Allergy Unknown Unknown Verified 05/15/23 12:26 omeprazole Allergy Unknown Unknown Verified 05/15/23 12:26 risedronate sodium Allergy Unknown UNKNOWN Verified 05/15/23 12:26 [From ACTONEL] rofecoxib [From Vioxx] Allergy Unknown ankle Verified 05/15/23 12:26 swelling salmeterol Allergy Unknown HTN Verified 05/15/23 12:26 [From ADVAIR DISKUS] scallops [SCALLOPS] Allergy Unknown NAUSEA & Verified 05/15/23 12:26 VOMITING tramadol [TRAMADOL] Allergy Unknown THROAT Verified 05/15/23 12:26 TIGHTNESS verapamil [VERAPAMIL] Allergy Unknown IRREGULAR Verified 05/15/23 12:26 HEARTBEAT lifitegrast [From Xiidra] Allergy blurred Verified 05/15/23 12:26 vision, headache, eye swelling cyclosporine [From Cequa] AdvReac Intermediate Swelling Verified 05/15/23 12:26 fluticasone furoate AdvReac Unknown Uknown Verified 05/15/23 12:26 [From Trelegy Ellipta] umeclidinium AdvReac Unknown Uknown Verified 05/15/23 12:26 [From Trelegy Ellipta] vilanterol AdvReac Unknown Uknown Verified 05/15/23 12:26 [From Trelegy Ellipta] Sulindac AdvReac Intermediate Nausea Uncoded 04/10/23 14:25 Review of Systems Sugical H&P ROS: Negative: Constitution, Cardiovascular, Respiratory, Neurological, Psychiatric, Hem-Onc, Allergic/Immunologic, Gastrointestinal, Genitourinary, Musculoskeletal, Integumentary, Endocrine and Eyes/Ears/ Nose/Throat Exam Surgical H&P Exam: Normal: HEENT, Normal: Heart, Normal: Lungs, Normal: Extremities, Normal: Abdomen, Normal: Skin and Normal: Neurological Plan Diagnosis/Plan: Unchanged I have reviewed the history and physical and performed a pertinent physical examination on my patient. No changes have occurred unless specified. Time Spent With Patient Time: Total time managing care of this patient today ____ minutes.
--- NOTE | 2023-05-15 12:50 | W.PM.OPN ---
Operative Note Operative Note Date of Service: 05/15/23 Narrative: Procedure Description: EGD Indication: dysphagia Anesthesia: MAC FLEXIBLE TRANSORAL UPPER GASTROINTESTINAL ENDOSCOPY UPPER ENDOSCOPY Consent: Indications for the procedure and potential complications of bleeding, perforation, reaction to medications and missed diagnosis were discussed with the patient and informed consent was obtained. Instrument: Olympus GIF H 190 J mid size upper endoscope Monitoring: Vital signs and clinical assessment, continuous EKG monitoring, Pulse oximetry, Carbon Dioxide monitoring and blood pressure monitoring were done throughout the procedure. Procedure: The patient was placed in the left lateral decubitis position and pre-procedure medications were administered and a bite block was placed. The endoscope was inserted into the mouth and advanced under direct vision to the third part of duodenum. A careful inspection was made as the upper endoscope was withdrawn including a retroflexed examination of the proximal stomach; Findings and interventions are described below. Findings: Larynx:normal Esophagus: GE junction at 30 cm, diaphragm hiatus at 32 cm, small sliding hiatal hernia with lax LES noted, balloon dilation done at UES to 19 mm , no heme noted. lower esophagus balloon dilation also done to 20 mm, no tears seen. Tertiary contractions seen Stomach: Erosive gastritis in antrum, bx taken .Grade 2 flap valve on retroflexed examination of the cardia. Duodenum: Normal bulb and descending duodenum, Intervention: Balloon dilation, biopsies Impression/Findings: erosive gastritis small hiatal hernia PLAN: avoid nsaids, check PPI compliance, maybe change formulation, if ongoing sx then manometry reflux precautions repeat dilation prn
[2023-05-15] MEDS: Lactated Ringers 1,000 ML 100 ML IVCONT (13:00)
[2023-05-15 13:18] VITALS: BP 101/45; PULSE 92; RESP 16; TEMP 36.4; O2SAT 97
[2023-05-15 13:33] VITALS: BP 120/63; PULSE 96; RESP 16; TEMP 36.1; O2SAT 96
== END 2023-05-15 14:36 | disposition home or self-care (01) ==
PROVIDERS: PCP Nurse Practitioner Family; Visit Provider Internal Medicine Gastroenterology
PROC: (CPT 43249; principal; 2023-05-15 14:50)
DX: K21.9 Gastro-esophageal reflux disease without esophagitis (principal); R13.10 Dysphagia, unspecified; K29.60 Other gastritis without bleeding; K44.9 Diaphragmatic hernia without obstruction or gangrene; I10 Essential (primary) hypertension; J44.9 Chronic obstructive pulmonary disease, unspecified; G47.33 Obstructive sleep apnea (adult) (pediatric); Z88.0 Allergy status to penicillin; Z88.1 Allergy status to other antibiotic agents; Z88.8 Allergy status to other drugs, medicaments and biological substances
CPT/HCPCS: 43249; 43239; 88305; 88313; 88342; C1726; J2704

== ENCOUNTER → 2023-05-15 11:49 | Outpatient (BNV) | payer MEDICARE, MEDICAID, SELFPAY | PROVIDERS: PCP Nurse Practitioner Family; Visit Provider Internal Medicine Gastroenterology | DX: R13.10 Dysphagia, unspecified (principal); K29.70 Gastritis, unspecified, without bleeding; K22.4 Dyskinesia of esophagus | CPT/HCPCS: 43239; 43249 ==

== ENCOUNTER 2023-05-19 12:48 | Outpatient (REF) | payer MEDICARE, MEDICAID, SELFPAY ==
[2023-05-19 16:34] LABS: Urine Cytology See Pathology rpt
== END 2023-05-19 12:49 | disposition home or self-care (01) ==
LOC: HO.LAB 12:48
PROVIDERS: PCP Nurse Practitioner Family; Visit Provider Urology
DX: R31.29 Other microscopic hematuria (principal); R33.9 Retention of urine, unspecified
CPT/HCPCS: 51798; 81003; 88112; 99202

== ENCOUNTER 2023-05-19 12:48 | Outpatient (AMB) | payer MEDICARE, MEDICAID, SELFPAY ==
--- NOTE | 2023-05-19 12:54 | A.OFFVIS_ITS ---
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: microscopic hematuria Intake Note: NEW Patient presents today to established treatment for: Microscopic Hematuria Meds- None Allergies to Antibiotic- Penicillins Blood Thinner- Aspirin Post Void Residual: 0ml Recreation Programmer Required: No Accompanied by: Self / Same As Patient Allergies Iiizzkx-SWR-YtP Reductase Inhibitor [[id number] REDUCTASE INHIBITOR] Allergy (Severe, Verified 05/19/23 12:55) JOINT PAIN amlodipine [AMLODIPINE] Allergy (Intermediate, Verified 05/19/23 12:55) PALIPITATIONS baclofen [BACLOFEN] Allergy (Intermediate, Verified 05/19/23 12:55) LETHARGY Beta-Blockers (Beta-Adrenergic Bloc Allergy (Intermediate, Verified 05/19/23 12:55) BRADYCARDIA budesonide [From SYMBICORT] Allergy (Intermediate, Verified 05/19/23 12:55) HOARSENESS Chocolate Allergy (Intermediate, Verified 05/19/23 12:55) Itching ezetimibe [From ZETIA] Allergy (Intermediate, Verified 05/19/23 12:55) JOINT PAIN, ELEVATED CPK ibandronate sodium [From BONIVA] Allergy (Intermediate, Verified 05/19/23 12:55) CHEST PAIN latex [LATEX] Allergy (Intermediate, Verified 05/19/23 12:55) RASH-SENSITIVITY lisinopril [LISINOPRIL] Allergy (Intermediate, Verified 05/19/23 12:55) COUGH, really bad cough, cough meloxicam [From MOBIC] Allergy (Intermediate, Verified 05/19/23 12:55) GI UPSET mometasone furoate [From DULERA] Allergy (Intermediate, Verified 05/19/23 12:55) COUGH Penicillins [PENICILLINS] Allergy (Intermediate, Verified 05/19/23 12:55) RASH pregabalin [From LYRICA] Allergy (Intermediate, Verified 05/19/23 12:55) RASH,BLURRED VISION raloxifene [From EVISTA] Allergy (Intermediate, Verified 05/19/23 12:55) GERD sertraline [From ZOLOFT] Allergy (Intermediate, Verified 05/19/23 12:55) SKIN CRAWLING spironolactone [SPIRONOLACTONE] Allergy (Intermediate, Verified 05/19/23 12:55) RASH, ?? psoriasis strawberry [STRAWBERRY] Allergy (Intermediate, Verified 05/19/23 12:55) ITCHING tiotropium [From SPIRIVA WITH HANDIHALER] Allergy (Intermediate, Verified 05/19/23 12:55) RAW THROAT adhesive [ADHESIVE] Allergy (Unknown, Verified 05/19/23 12:55) RASH Atrovent Allergy (Unknown, Verified 05/19/23 12:55) Unknown dexlansoprazole [From DEXILANT] Allergy (Unknown, Verified 05/19/23 12:55) UNKNOWN doxycycline [DOXYCYCLINE] Allergy (Unknown, Verified 05/19/23 12:55) SEVERE NOYOLA, HEARTBURN Doxycycline Hyclate Allergy (Unknown, Verified 05/19/23 12:55) headache esomeprazole [Nexium] Allergy (Unknown, Verified 05/19/23 12:55) Unknown fluticasone [From ADVAIR DISKUS] Allergy (Unknown, Verified 05/19/23 12:55) HTN gabapentin [From NEURONTIN] Allergy (Unknown, Verified 05/19/23 12:55) THROAT TIGHTNESS glucosamine Allergy (Unknown, Verified 05/19/23 12:55) Unknown metoclopramide [From REGLAN] Allergy (Unknown, Verified 05/19/23 12:55) LETHARGY monosodium glutamate [MSG] Allergy (Unknown, Verified 05/19/23 12:55) HEADACHE naproxen [From ALEVE] Allergy (Unknown, Verified 05/19/23 12:55) FLUSH niacin Allergy (Unknown, Verified 05/19/23 12:55) Unknown omeprazole Allergy (Unknown, Verified 05/19/23 12:55) Unknown risedronate sodium [From ACTONEL] Allergy (Unknown, Verified 05/19/23 12:55) UNKNOWN rofecoxib [From Vioxx] Allergy (Unknown, Verified 05/19/23 12:55) ankle swelling salmeterol [From ADVAIR DISKUS] Allergy (Unknown, Verified 05/19/23 12:55) HTN scallops [SCALLOPS] Allergy (Unknown, Verified 05/19/23 12:55) NAUSEA & VOMITING tramadol [TRAMADOL] Allergy (Unknown, Verified 05/19/23 12:55) THROAT TIGHTNESS verapamil [VERAPAMIL] Allergy (Unknown, Verified 05/19/23 12:55) IRREGULAR HEARTBEAT lifitegrast [From Xiidra] Allergy (Verified 05/19/23 12:55) blurred vision, headache, eye swelling cyclosporine [From Cequa] Adverse Reaction (Intermediate, Verified 05/19/23 12:55) Swelling fluticasone furoate [From Trelegy Ellipta] Adverse Reaction (Unknown, Verified 05/19/23 12:55) Uknown umeclidinium [From Trelegy Ellipta] Adverse Reaction (Unknown, Verified 05/19/23 12:55) Uknown vilanterol [From Trelegy Ellipta] Adverse Reaction (Unknown, Verified 05/19/23 12:55) Uknown Sulindac Adverse Reaction (Intermediate, Uncoded 05/19/23 12:55) Nausea Medication List - Last Reconciled 05/19/23 by Chloe Dodge MD aspirin (Adult Aspirin Regimen) 81 mg PO DAILY beclomethasone dipropionate 80 mcg/actuation (Qvar RediHaler) 1 inh inhalation BID 30 days bempedoic acid (Nexletol) 180 mg PO DAILY betamethasone dipropionate 0.05% 1 appl topical DIRECTED Bifidobacterium infantis (Align) 4 mg PO DAILY cetirizine (Zyrtec) 10 mg PO DAILY PRN cholecalciferol (vitamin D3) 25 mcg PO DAILY 30 days cyclosporine 0.05% (Restasis) 1 drp ophthalmic (eye) Q12H denosumab (Prolia) 60 mg subcut [id number] dextran 70-hypromellose (PF) 0.1-0.3 % (Artificial Tears (PF)) 1 drp ophthalmic (eye) BEDTIME docusate sodium (Colace) 100 mg PO BID evolocumab (Repatha SureClick) 140 mg subcut Q2W flunisolide 2 sprays intranasal BID PRN hydrochlorothiazide 12.5 mg PO DAILY 90 days ibuprofen (IBU) 600 mg PO Q8H PRN 90 days levalbuterol tartrate 45 mcg/actuation 2 puffs inhalation DAILY lidocaine 5% 1 patch topical DAILY losartan 25 mg PO BID 90 days magnesium oxide 500 mg PO DAILY montelukast 10 mg PO DAILY pantoprazole 40 mg PO BID prednisolone acetate 1% 1 drp ophthalmic (eye) QID sucralfate 1 g PO BID 90 days HPI HPI Comments History of Present Illness Details Adali is a 73-year-old female who is here for evaluation for microscopic hematuria. The patient has a history of nicotine use quit in 1979. The patient has lower urinary tract symptoms of urinary frequency. 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 She states she is no longer routinely following with OXYGEN EQUIPMENT TECHNICIAN but told by OXYGEN EQUIPMENT TECHNICIAN about 3 years ago that she had vaginal prolapse. She denies dysuria. Urinalysis trace blood, 0 leukocytes I have discussed microscopic hematuria may be due to but not limited to kidney stones, BPH, cystitis, urinary tract malignancy. I have discussed work up to include evaluation of the urinary tract which may include imaging, further urine testing, and cystoscopy Plan--CT urogram, urine for cytology, follow-up office cystoscopy [facility] Medical History History of trigger finger Right groin pain Cervical radiculitis Chronic sinusitis COVID-19 vaccine administered Trigger finger GERD (gastroesophageal reflux disease) FRANCESCA (obstructive sleep apnea) CAD (coronary artery disease) History of primary hyperparathyroidism Non-toxic multinodular goiter Osteoporosis Pulmonary nodules H/O gastroesophageal reflux (GERD) HLD (hyperlipidemia) HTN (hypertension) COPD (chronic obstructive pulmonary disease) Asthma History of aneurysm Migraine Depression PTSD (post-traumatic stress disorder) History of panic attacks Right inguinal hernia Anxiety Umbilical pain Edema Dizziness History of deviated nasal septum Medial epicondylitis of left elbow Fusion of spine, cervical region Surgical History H/O cervical spine surgery Hx of hand surgery Hx of right inguinal hernia repair History of hernia repair Hx of colonoscopy History of esophagogastroduodenoscopy (EGD) S/P repair of paraesophageal hernia H/O decompression of ulnar nerve Status post ablation of incompetent vein using laser History of cardiac catheterization History of eyelid surgery History of appendectomy History of parathyroidectomy History of cholecystectomy Hx of cataract surgery Hx of shoulder surgery S/P cubital tunnel release S/P arthroscopic surgery of right knee History of lumpectomy of both breasts History of hysterectomy Hx of adenoidectomy Hx of tonsillectomy Hx of eye surgery Family History Father Liver cancer Psoriasis Cancer Mental health disorder Mother Cervical cancer Ovarian cancer Heart attack Substance use disorder Social History Household Members: Children and None Housing: House Alcohol intake: current Alcohol intake frequency: does not drink Patient Tobacco Use Status: Former Tobacco user Quit Date: 1979 Tobacco use type: Cigarette e-Cigarette/Vaping Use: Never Used Second Hand Smoke Exposure: No service: No Current occupational status: employed Cognitive needs: No Hearing needs: No Vision needs: No Review of Systems Const All systems reviewed & are unremarkable except as noted in HPI and below Reports no additional complaints Eyes Reports no additional complaints ENT Reports no additional complaints Card Reports no additional complaints Resp Reports no additional complaints GI Reports no additional complaints Reports as per HPI Musc Reports no additional complaints Skin/Breast Reports system reviewed and no additional complaints, except as documented Neuro Reports no additional complaints Psych Reports no additional complaints Endo Reports no additional complaints Jesse/Lymph Reports no additional complaints Aller/Immun Reports no additional complaints Physical Exam Const General: cooperative, healthy appearing and no acute distress Orientation/consciousness: patient oriented x3 HEENT Head: Yes normal to inspection, Yes normocephalic and Yes atraumatic Eyes Conjunctivae: conjunctivae normal Neck Neck: Yes normal visual inspection and Yes trachea midline Chest Chest palpation & inspection: normal inspection of the chest Resp Effort & Inspection: normal respiratory effort Cardio Rate: regular rate GI Inspection: Yes normal to inspection Skin General skin exam: no rashes or lesions noted Neuro General: patient oriented x3 Extrem General: No edema Psych Appearance: grossly normal Office Procedures Post Void Residual Post Residual Void Post Void Residual (PVR): 0 [id number] Void Residual by ultrasound Results AMB Urinalysis, Automated UA Leukoctes 0 Jason/uL Last Edit by Verónica Orosco CMA on 05/19/23 13 :11 UA Nitrite Negative Last Edit by Verónica Orosco CMA on 05/19/23 13: 11 UA Urobilinogen 0.2 mg/dL Last Edit by Verónica Orosco CMA on 4 13:11 UA Protein 0 mg/dL Last Edit by Verónica Orosco CMA on 05/19/23 13:11 UA pH 6.0 Last Edit by Verónica Orosco CMA on 05/19/23 13:11 UA Blood 10 Delfino/uL Last Edit by Verónica Orosco CMA on 05/19/23 13:11 UA Specific [place] 1.010 Last Edit by Verónica Orosco [facility] on 13:11 UA Ketone Negative Last Edit by Verónica Orosco [facility] on 05/19/23 13:1 1 UA Bilirubin 0 mg/dL Last Edit by Verónica Orosco PLASMA TABLE OPERATOR on 05/19/23 13: 11 UA Glucose 0 mg/dL Last Edit by Verónica Orosco [facility] on 05/19/23 13:11 Results Reviewed Results Reviewed: Laboratory Last Values Urine pH (Auto) 6.0 05/19/23 12:56 Specific [place] (Auto) 1.010 05/19/23 12:56 Urine Protein (Auto) 0 mg/dL 05/19/23 12:56 Glucose (UA)(Auto) 0 mg/dL 05/19/23 12:56 Urine Ketones (Auto) Negative 05/19/23 12:56 Urine Blood (Auto) 10 Delfino/uL 05/19/23 12:56 Urine Nitrite (Auto) Negative 05/19/23 12:56 Urine Bilirubin (Auto) 0 mg/dL 05/19/23 12:56 Urine Urobilinogen (Auto) 0.2 mg/dL 05/19/23 12:56 Leukocyte Esterase (Auto) 0 Jason/uL 05/19/23 12:56 Assessment & Plan Assessment & Plan (1) History of nicotine use: Code(s): Z87.891 - Personal history of nicotine dependence (2) Microscopic hematuria: Code(s): R31.29 - Other microscopic hematuria (3) Urinary frequency: Code(s): R35.0 - Frequency of micturition (4) Hematuria: Code(s): R31.9 - Hematuria, unspecified Plan Plan--CT urogram, urine for cytology, follow-up office cystoscopy Orders: Orders AMB Urinalysis Automated Today R33.9 - Retention of urine, unspecified AMB Post Void Residual by ultrasound Today R33.9 - Retention of urine, unspecified CT urogram Today R31.9 - Hematuria, unspecified Patient Instructions: The patient had an opportunity to ask questions regarding treatment plan. All questions were answered. Laboratory studies were discussed and reviewed in detail. No major barriers to understanding were identified. The patient expressed understanding and agreement with the above treatment plan. The patient is aware they should contact our office by phone for worsening of their current condition or the appearance of new symptoms. Compliance is encouraged with any medications and followup testing that is ordered. It is a privilege to be allowed the opportunity to participate in the urologic care of your patient. If you have any questions or concerns regarding treatment for the above conditions please do not hesitate to contact me. The office telephone contact is [phone]. This note is constructed in part using voice recognition software. While every effort has been made to ensure accuracy finance specialist errors may have been included. Yours sincerely, Chloe Dodge MD Coding Level of Care Code New Pt Level 4 (21887) Diagnoses History of nicotine use Z87.891 Microscopic hematuria R31.29 Urinary frequency R35.0 Hematuria R31.9 CPT Codes Post Residual Void - PVR CPT Code: 13587-Abas Void Residual by ultrasound ([id number])
== END 2023-05-19 13:39 | disposition home or self-care (01) ==
LOC: HO.HUSH 12:48
PROVIDERS: PCP Nurse Practitioner Family; Visit Provider Urology
DX: Z87.891 Personal history of nicotine dependence (principal); R31.29 Other microscopic hematuria; R35.0 Frequency of micturition; R31.9 Hematuria, unspecified; R33.9 Retention of urine, unspecified
CPT/HCPCS: 99204

== ENCOUNTER 2023-06-05 12:51 | Outpatient (AMB) | payer MEDICARE, MEDICAID, SELFPAY ==
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
== END 2023-06-05 16:11 | disposition home or self-care (01) ==
LOC: HO.HOP 12:51
PROVIDERS: PCP Nurse Practitioner Family; Visit Provider Clinical Nurse Specialist Psychiatric/Mental Health
DX: F43.12 Post-traumatic stress disorder, chronic (principal); F41.0 Panic disorder [episodic paroxysmal anxiety]
CPT/HCPCS: 90833; 99214

== ENCOUNTER → 2023-06-05 12:51 | Outpatient (BNVA) | payer MEDICARE, MEDICAID, SELFPAY | PROVIDERS: PCP Nurse Practitioner Family; Visit Provider Clinical Nurse Specialist Psychiatric/Mental Health | DX: F43.12 Post-traumatic stress disorder, chronic (principal); F41.0 Panic disorder [episodic paroxysmal anxiety] | CPT/HCPCS: 99212 ==

== ENCOUNTER 2023-06-18 08:05 | Outpatient (REF) | payer MEDICARE, MEDICAID, SELFPAY ==
[2023-06-18 11:16] LABS: Appearance Urine Clear; Color Urine Yellow; Glucose Urine UA Negative (Negative); Leukocyte Esterase Urine Negative (Negative); Nitrite Urine Negative (Negative); PH 7.5 (5.0-9.0); Specific Gravity - Urine 1.025 (1.005-1.025); UMIC TRIGGER UACC YES; Urine Blood Trace (Negative); Urine Ketones Negative (Negative); Urine Protein Negative (Neg-Trace)
[2023-06-18 11:20] LABS: Bacteria Urine None Seen (None Seen); Hyaline Casts Urine 0-2 /LPF (0-2); Squamous Epithelial Cell Urine 0-2 /HPF (0-2); WBC Urine 0-5 /HPF (0-5)
[2023-06-18 11:42] LABS: Blood Urea Nitrogen 17 mg/dL (9-16); Calcium 9.3 mg/dL (8.4-10.2); Estimated Glomerular Filt Rate 58
[2023-06-18 11:43] LABS: Albumin Level 4.2 g/dL (3.5-5.0); Anion Gap 14 (12-20); Blood Urea Nitrogen 17 mg/dL (9-16); Calcium 9.3 mg/dL (8.4-10.2); Carbon Dioxide 28 mmol/L (22-29); Chloride 102 mmol/L (96-108); Estimated Glomerular Filt Rate 60; Glucose Random 86 mg/dL (60-115); Potassium 3.8 mmol/L (3.3-5.1); Sodium 140 mmol/L (135-145)
== END 2023-06-18 08:06 | disposition home or self-care (01) ==
LOC: HO.10HDL 08:05
PROVIDERS: Nurse Practitioner Family; Urology; Visit Provider Internal Medicine Endocrinology, Diabetes & Metabolism
DX: M81.8 Other osteoporosis without current pathological fracture (principal); R31.9 Hematuria, unspecified; R39.15 Urgency of urination; N39.0 Urinary tract infection, site not specified
CPT/HCPCS: 36415; 80048; 81001; 81003; 82040; 82310; 82565; 84520

== ENCOUNTER 2023-06-25 07:51 | Outpatient (AMB) | payer MEDICARE, SELFPAY ==
[2023-06-25 07:53] VITALS: BP 154/82; PULSE 86; BMI 32.8
--- NOTE | 2023-06-25 07:53 | MHC.OFFVIS ---
Vital Signs 06/25/23 07:53 Height 4 ft 11 in Weight 162 lb 7.691 oz BMI 32.8 BP 154/82 H Blood Pressure Location Lt brachial Position Sitting Pulse 86 Pulse Source Pulse Oximeter Intake Visit Reasons: f/u Osteoporosis and Prolia-Confirmed Intake Note: Patient present today for Osteoporosis follow up and Priolia injection. 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 Accompanied by: Self / Same As Patient Allergies Cmdgmve-ZMW-JuS Reductase Inhibitor [[id number]-QVL REDUCTASE INHIBITOR] Allergy (Severe, Verified 06/25/23 07:57) JOINT PAIN amlodipine [AMLODIPINE] Allergy (Intermediate, Verified 06/25/23 07:57) PALIPITATIONS baclofen [BACLOFEN] Allergy (Intermediate, Verified 06/25/23 07:57) LETHARGY Beta-Blockers (Beta-Adrenergic Bloc Allergy (Intermediate, Verified 06/25/23 07:57) BRADYCARDIA budesonide [From SYMBICORT] Allergy (Intermediate, Verified 06/25/23 07:57) HOARSENESS Chocolate Allergy (Intermediate, Verified 06/25/23 07:57) Itching ezetimibe [From ZETIA] Allergy (Intermediate, Verified 06/25/23 07:57) JOINT PAIN, ELEVATED CPK ibandronate sodium [From BONIVA] Allergy (Intermediate, Verified 06/25/23 07:57) CHEST PAIN latex [LATEX] Allergy (Intermediate, Verified 06/25/23 07:57) RASH-SENSITIVITY lisinopril [LISINOPRIL] Allergy (Intermediate, Verified 06/25/23 07:57) COUGH, really bad cough, cough meloxicam [From MOBIC] Allergy (Intermediate, Verified 06/25/23 07:57) GI UPSET mometasone furoate [From DULERA] Allergy (Intermediate, Verified 06/25/23 07:57) COUGH Penicillins [PENICILLINS] Allergy (Intermediate, Verified 06/25/23 07:57) RASH pregabalin [From LYRICA] Allergy (Intermediate, Verified 06/25/23 07:57) RASH,BLURRED VISION raloxifene [From EVISTA] Allergy (Intermediate, Verified 06/25/23 07:57) GERD sertraline [From ZOLOFT] Allergy (Intermediate, Verified 06/25/23 07:57) SKIN CRAWLING spironolactone [SPIRONOLACTONE] Allergy (Intermediate, Verified 06/25/23 07:57) RASH, ?? psoriasis strawberry [STRAWBERRY] Allergy (Intermediate, Verified 06/25/23 07:57) ITCHING tiotropium [From SPIRIVA WITH HANDIHALER] Allergy (Intermediate, Verified 06/25/23 07:57) RAW THROAT adhesive [ADHESIVE] Allergy (Unknown, Verified 06/25/23 07:57) RASH Atrovent Allergy (Unknown, Verified 06/25/23 07:57) Unknown dexlansoprazole [From DEXILANT] Allergy (Unknown, Verified 06/25/23 07:57) UNKNOWN doxycycline [DOXYCYCLINE] Allergy (Unknown, Verified 06/25/23 07:57) SEVERE NOYOLA, HEARTBURN Doxycycline Hyclate Allergy (Unknown, Verified 06/25/23 07:57) headache esomeprazole [Nexium] Allergy (Unknown, Verified 06/25/23 07:57) Unknown fluticasone [From ADVAIR DISKUS] Allergy (Unknown, Verified 06/25/23 07:57) HTN gabapentin [From NEURONTIN] Allergy (Unknown, Verified 06/25/23 07:57) THROAT TIGHTNESS glucosamine Allergy (Unknown, Verified 06/25/23 07:57) Unknown metoclopramide [From REGLAN] Allergy (Unknown, Verified 06/25/23 07:57) LETHARGY monosodium glutamate [MSG] Allergy (Unknown, Verified 06/25/23 07:57) HEADACHE naproxen [From ALEVE] Allergy (Unknown, Verified 06/25/23 07:57) FLUSH niacin Allergy (Unknown, Verified 06/25/23 07:57) Unknown omeprazole Allergy (Unknown, Verified 06/25/23 07:57) Unknown risedronate sodium [From ACTONEL] Allergy (Unknown, Verified 06/25/23 07:57) UNKNOWN rofecoxib [From Vioxx] Allergy (Unknown, Verified 06/25/23 07:57) ankle swelling salmeterol [From ADVAIR DISKUS] Allergy (Unknown, Verified 06/25/23 07:57) HTN scallops [SCALLOPS] Allergy (Unknown, Verified 06/25/23 07:57) NAUSEA & VOMITING tramadol [TRAMADOL] Allergy (Unknown, Verified 06/25/23 07:57) THROAT TIGHTNESS verapamil [VERAPAMIL] Allergy (Unknown, Verified 06/25/23 07:57) IRREGULAR HEARTBEAT lifitegrast [From Xiidra] Allergy (Verified 06/25/23 07:57) blurred vision, headache, eye swelling cyclosporine [From Cequa] Adverse Reaction (Intermediate, Verified 06/25/23 07:57) Swelling fluticasone furoate [From Trelegy Ellipta] Adverse Reaction (Unknown, Verified 06/25/23 07:57) Uknown umeclidinium [From Trelegy Ellipta] Adverse Reaction (Unknown, Verified 06/25/23 07:57) Uknown vilanterol [From Trelegy Ellipta] Adverse Reaction (Unknown, Verified 06/25/23 07:57) Uknown Sulindac Adverse Reaction (Intermediate, Uncoded 06/25/23 07:57) Nausea Medication List - Last Reconciled 06/25/23 by Manas Doss MD aspirin (Adult Aspirin Regimen) 81 mg PO DAILY beclomethasone dipropionate 80 mcg/actuation (Qvar RediHaler) 1 inh inhalation BID 30 days betamethasone dipropionate 0.05% 1 appl topical DIRECTED Bifidobacterium infantis (Align) 4 mg PO DAILY cetirizine (Zyrtec) 10 mg PO DAILY PRN cholecalciferol (vitamin D3) 25 mcg PO DAILY 30 days cyclosporine 0.05% (Restasis) 1 drp ophthalmic (eye) Q12H denosumab (Prolia) 60 mg subcut [id number] dextran 70-hypromellose (PF) 0.1-0.3 % (Artificial Tears (PF)) 1 drp ophthalmic (eye) BEDTIME docusate sodium (Colace) 100 mg PO BID evolocumab (Repatha SureClick) 140 mg subcut Q2W flunisolide 2 sprays intranasal BID PRN hydrochlorothiazide 12.5 mg PO DAILY 90 days ibuprofen (IBU) 600 mg PO Q8H PRN 90 days levalbuterol tartrate 45 mcg/actuation 2 puffs inhalation DAILY lidocaine 5% 1 patch topical DAILY lorazepam (Ativan) 0.5 mg PO DAILY PRN losartan 25 mg PO BID 90 days magnesium oxide 500 mg PO DAILY montelukast 10 mg PO DAILY pantoprazole 40 mg PO BID prednisolone acetate 1% 1 drp ophthalmic (eye) QID sucralfate 1 g PO BID 90 days HPI Comments Details: 73 yo female today for fup visit, l for fup NTMNG, osteoporosis. She is feeling well. She is taking Viactiv twice a day and vitamin-D 1000 international units daily. She is currently on Evenity and has had 12 doses Could not tolerate Boniva after 3 wks. Boniva caused position . Transitioning to Prolia today She had side effect with Bisphosphonates. she had chest pain with 2 oral bisphosphonates. Secondary workup was normal except for low urinary calcium but urinary creatinine was low as well. Started Evenity took 2 doses last dose was after booster 4 days later and had gastrointestinal side effects . First dose caused no problem. Patient has h/o of primary hyperparathyroidism, s/p parathyroidectomy 3 and 02/11 on 2012, osteoporosis. she has h/o in situ cervical cancer, treated with hysterectomy. She has extensive FH of cancer, Her sister has Torin's disease, had thyroidectomy. Denies cold or heat intolerance, weight loss or gain, post menopausal, diarrhea, constipation, insomnia, fatigue, dry skin, dysphagia, dyspnea, dysphonia, tremors, + occasional palpitations, denies irritability, anxiety. DEXA scan reviewed over years. 2011 LS BMD 0.963 gm/cm2, Score - 1.7 Femur BMD 0.707 GM/cm2, Score - 2.4 FN R T score -2.7 L -3.0 Forearm BMD 0.698 gm/cm2, T score - 2.1 2013 LS BMD 0.947 gm/cm2, Tscore - 1.8 Forearm BMD 0.684 gm/cm2, Tscore - 2.3 2015 LS BMD 0.947 gm/cm2, Tscore - 1.8 Femur BMD 0.703 gm/cm2, Tscore - 2.4 FN R -2.7 from -2.5, FN L -3.3 from -3.0 Forearm BMD 0.656 gm/cm2, Tscore - 2.6 02/02/18 [facility] LS BMD 0.957 gm/cm2, T-score -1.7 Femur BMD 0.707 gm/cm2, T-score -2.4 Right femoral neck -2.7 , left FN T score -3.0 DEXA 02/18/2020 AP SPINE L1-L2 (excluding L3 and L4): The data of L1-L4 has been changed to exclude the L3 and L4 vertebral bodies, because degenerative changes at these levels may cause overestimation of lumbar spine density. BMD 0.798 g/cm2, Z-score -1.6, T-score -3.1, osteoporosis. LEFT FEMUR, NECK: BMD 0.534 g/cm2, Z-score -2.1, T-score -3.6, osteoporosis. LEFT FEMUR, TOTAL: BMD 0.626 g/cm2, Z-score -1.7, T-score -3.0, osteoporosis. 12/19/17 US thyroid Right Thyroid Lobe: 3.3 x 1.2 x 1.6 cm, volume 3.1 mL. Previously 3.2 x 1.0 x 1.2 cm, volume 2.0 mL. Left Thyroid Lobe: 3.2 x 1.1 x 1.3 cm, volume 2.3 mL. Previously 3.2 x 0.9 x 1.2 cm, volume 1.8 mL. Isthmus: 0.2 cm in maximum AP dimension. Previously 0.3 cm. PARENCHYMA: The gland echotexture is homogeneous. Thyroid vascularity is normal. RIGHT THYROID LOBE: There are 3 nodules seen. 1. Location: Mid/upper pole Size: 0.2 x 0.2 x 0.2 cm. Previous: 0.2 x 0.1 x 0.2 cm. Nodule characteristics: Hypoechoic with smooth margins and no intranodular flow 2. Location: Upper/mid pole Size: 0.2 x 0.2 x 0.2 cm. Previous: 0.2 x 0.2 x 0.1 cm. Nodule characteristics: Hypoechoic with smooth margins and no intranodular flow 3. Location: Medial midpole Size: 0.5 x 0.3 x 0.4 cm. Previous: 0.4 x 0.2 x 0.4 cm. Nodule characteristics: Hypoechoic with smooth margins and no intranodular flow ISTHMUS: No nodules. LEFT THYROID LOBE: There is 1 nodule seen. 1. Location: Midpole Size: 0.4 x 0.3 x 0.3 cm. Previous: 0.3 x 0.3 x 0.2 cm. Nodule characteristics: Hypoechoic with smooth margins and no intranodular flow. NODES: No lymphadenopathy is seen in the tissue surrounding the thyroid gland. She is complaining of some dysphagia Laboratory Tests 10/28/19 12/08/19 06:18 12:32 Creatinine 0.83 Estimated GFR > 60 Calcium 8.6 8.6 Alkaline Phosphatase 112 Albumin 4.1 Completed a course of Evenity. Now on Prolia for 1 year's time FOR[facility] Medical History History of trigger finger Right groin pain Cervical radiculitis Chronic sinusitis COVID-19 vaccine administered Trigger finger GERD (gastroesophageal reflux disease) FRANCESCA (obstructive sleep apnea) CAD (coronary artery disease) History of primary hyperparathyroidism Non-toxic multinodular goiter Osteoporosis Pulmonary nodules H/O gastroesophageal reflux (GERD) HLD (hyperlipidemia) HTN (hypertension) COPD (chronic obstructive pulmonary disease) Asthma History of aneurysm Migraine Depression PTSD (post-traumatic stress disorder) History of panic attacks Right inguinal hernia Anxiety Umbilical pain Edema Dizziness History of deviated nasal septum Medial epicondylitis of left elbow Fusion of spine, cervical region Surgical History H/O cervical spine surgery Hx of hand surgery Hx of right inguinal hernia repair History of hernia repair Hx of colonoscopy History of esophagogastroduodenoscopy (EGD) S/P repair of paraesophageal hernia H/O decompression of ulnar nerve Status post ablation of incompetent vein using laser History of cardiac catheterization History of eyelid surgery History of appendectomy History of parathyroidectomy History of cholecystectomy Hx of cataract surgery Hx of shoulder surgery S/P cubital tunnel release S/P arthroscopic surgery of right knee History of lumpectomy of both breasts History of hysterectomy Hx of adenoidectomy Hx of tonsillectomy Hx of eye surgery Family History Father Liver cancer Psoriasis Cancer Mental health disorder Mother Cervical cancer Ovarian cancer Heart attack Substance use disorder Social History Household Members: Children and None Housing: House Alcohol intake: current Alcohol intake frequency: does not drink Patient Tobacco Use Status: Former Tobacco user Quit Date: 1979 Tobacco use type: Cigarette e-Cigarette/Vaping Use: Never Used Second Hand Smoke Exposure: No service: No Current occupational status: employed Cognitive needs: No Hearing needs: No Vision needs: No Physical Exam Vital Signs: Last Vital Signs Pulse 86 06/25/23 07:53 BP 154/82 H 06/25/23 07:53 BMI result Body Mass Index 32.8 Assessment & Plan Assessment & Plan (1) Osteoporosis: Code(s): M81.0 - Age-related osteoporosis without current pathological fracture Category: Medical Plan: This 73-year-old white female with a history of osteoporosis previous intolerance to oral bisphosphonates. Secondary workup is negative except for low urinary calcium still low for corrected urinary creatinine. She finished a course of Evenity. Now on Prolia for 1 year's time Plan is to check a 24 hour urine for calcium and creatinine to ensure calcium intake is sufficient. We will continue Prolia with optimal duration 2-3 years time or until patient reaches goal of osteopenia and then transition to a bisphosphonate. We will recheck DEXA in 02/2024. She did have reactions to oral bisphosphonates in the past for perhaps an IV bisphosphonate like Reclast might be appropriate when the time is necessary Orders: Orders Creatinine, 24 Hr Group 1 Month M81.0 - Age-related osteoporosis without current pathological fracture Calcium, 24 Hr Ur 1 Month M81.0 - Age-related osteoporosis without current pathological fracture Coding Level of Care Code Est Pt Level 3 (96466) Diagnoses Osteoporosis M81.0
== END 2023-06-25 08:33 | disposition home or self-care (01) ==
PROVIDERS: PCP Nurse Practitioner Family; Visit Provider Internal Medicine Endocrinology, Diabetes & Metabolism
DX: M81.0 Age-related osteoporosis without current pathological fracture (principal)
CPT/HCPCS: 99213

== ENCOUNTER 2023-06-25 07:51 | Outpatient (AMB) | payer MEDICARE, SELFPAY ==
--- NOTE | 2023-06-25 08:37 | AM.OFFVISNUR ---
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: Prolia Allergies Yzqazfp-JNQ-TyK Reductase Inhibitor [[id number]-[id number]-[id number] REDUCTASE INHIBITOR] Allergy (Severe, Verified 06/25/23 07:57) JOINT PAIN amlodipine [AMLODIPINE] Allergy (Intermediate, Verified 06/25/23 07:57) PALIPITATIONS baclofen [BACLOFEN] Allergy (Intermediate, Verified 06/25/23 07:57) LETHARGY Beta-Blockers (Beta-Adrenergic Bloc Allergy (Intermediate, Verified 06/25/23 07:57) BRADYCARDIA budesonide [From SYMBICORT] Allergy (Intermediate, Verified 06/25/23 07:57) HOARSENESS Chocolate Allergy (Intermediate, Verified 06/25/23 07:57) Itching ezetimibe [From ZETIA] Allergy (Intermediate, Verified 06/25/23 07:57) JOINT PAIN, ELEVATED CPK ibandronate sodium [From BONIVA] Allergy (Intermediate, Verified 06/25/23 07:57) CHEST PAIN latex [LATEX] Allergy (Intermediate, Verified 06/25/23 07:57) RASH-SENSITIVITY lisinopril [LISINOPRIL] Allergy (Intermediate, Verified 06/25/23 07:57) COUGH, really bad cough, cough meloxicam [From MOBIC] Allergy (Intermediate, Verified 06/25/23 07:57) GI UPSET mometasone furoate [From DULERA] Allergy (Intermediate, Verified 06/25/23 07:57) COUGH Penicillins [PENICILLINS] Allergy (Intermediate, Verified 06/25/23 07:57) RASH pregabalin [From LYRICA] Allergy (Intermediate, Verified 06/25/23 07:57) RASH,BLURRED VISION raloxifene [From EVISTA] Allergy (Intermediate, Verified 06/25/23 07:57) GERD sertraline [From ZOLOFT] Allergy (Intermediate, Verified 06/25/23 07:57) SKIN CRAWLING spironolactone [SPIRONOLACTONE] Allergy (Intermediate, Verified 06/25/23 07:57) RASH, ?? psoriasis strawberry [STRAWBERRY] Allergy (Intermediate, Verified 06/25/23 07:57) ITCHING tiotropium [From SPIRIVA WITH HANDIHALER] Allergy (Intermediate, Verified 06/25/23 07:57) RAW THROAT adhesive [ADHESIVE] Allergy (Unknown, Verified 06/25/23 07:57) RASH Atrovent Allergy (Unknown, Verified 06/25/23 07:57) Unknown dexlansoprazole [From DEXILANT] Allergy (Unknown, Verified 06/25/23 07:57) UNKNOWN doxycycline [DOXYCYCLINE] Allergy (Unknown, Verified 06/25/23 07:57) SEVERE NOYOLA, HEARTBURN Doxycycline Hyclate Allergy (Unknown, Verified 06/25/23 07:57) headache esomeprazole [Nexium] Allergy (Unknown, Verified 06/25/23 07:57) Unknown fluticasone [From ADVAIR DISKUS] Allergy (Unknown, Verified 06/25/23 07:57) HTN gabapentin [From NEURONTIN] Allergy (Unknown, Verified 06/25/23 07:57) THROAT TIGHTNESS glucosamine Allergy (Unknown, Verified 06/25/23 07:57) Unknown metoclopramide [From REGLAN] Allergy (Unknown, Verified 06/25/23 07:57) LETHARGY monosodium glutamate [MSG] Allergy (Unknown, Verified 06/25/23 07:57) HEADACHE naproxen [From ALEVE] Allergy (Unknown, Verified 06/25/23 07:57) FLUSH niacin Allergy (Unknown, Verified 06/25/23 07:57) Unknown omeprazole Allergy (Unknown, Verified 06/25/23 07:57) Unknown risedronate sodium [From ACTONEL] Allergy (Unknown, Verified 06/25/23 07:57) UNKNOWN rofecoxib [From Vioxx] Allergy (Unknown, Verified 06/25/23 07:57) ankle swelling salmeterol [From ADVAIR DISKUS] Allergy (Unknown, Verified 06/25/23 07:57) HTN scallops [SCALLOPS] Allergy (Unknown, Verified 06/25/23 07:57) NAUSEA & VOMITING tramadol [TRAMADOL] Allergy (Unknown, Verified 06/25/23 07:57) THROAT TIGHTNESS verapamil [VERAPAMIL] Allergy (Unknown, Verified 06/25/23 07:57) IRREGULAR HEARTBEAT lifitegrast [From Xiidra] Allergy (Verified 06/25/23 07:57) blurred vision, headache, eye swelling cyclosporine [From Cequa] Adverse Reaction (Intermediate, Verified 06/25/23 07:57) Swelling fluticasone furoate [From Trelegy Ellipta] Adverse Reaction (Unknown, Verified 06/25/23 07:57) Uknown umeclidinium [From Trelegy Ellipta] Adverse Reaction (Unknown, Verified 06/25/23 07:57) Uknown vilanterol [From Trelegy Ellipta] Adverse Reaction (Unknown, Verified 06/25/23 07:57) Uknown Sulindac Adverse Reaction (Intermediate, Uncoded 06/25/23 07:57) Nausea Office Meds Prolia 60 mg/mL subcutaneous syringe Performing Provider: Manas Doss MD Performing Location: [facility] [place] [facility] Administered by: Aimee Roman RN on 06/25/23 08:37 Dose Route Admin Location Dispensed Lot Number Expiration Date [facility] 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 Pt tolerated well. Pt declines any adverse reactions with previous prolia injections. Coding Assessment & Plan Assessment & Plan Orders: Orders AMB Denosumab Injection Patient Supplied Today M81.0 - Age-related osteoporosis without current pathological fracture Medications: New Prolia (denosumab) 60 mg subcut ONCE 1 mL 0RF NS M81.0 - Age-related osteoporosis without current pathological fracture
== END 2023-06-25 08:36 | disposition home or self-care (01) ==
PROVIDERS: PCP Nurse Practitioner Family; Visit Provider Internal Medicine Endocrinology, Diabetes & Metabolism
DX: M81.0 Age-related osteoporosis without current pathological fracture (principal)

== ENCOUNTER → 2023-06-25 07:51 | Outpatient (BNVA) | payer MEDICARE, SELFPAY | PROVIDERS: PCP Nurse Practitioner Family; Visit Provider Internal Medicine Endocrinology, Diabetes & Metabolism | DX: M81.0 Age-related osteoporosis without current pathological fracture (principal); Z79.620 Long term (current) use of immunosuppressive biologic | CPT/HCPCS: 96372; 99212; J0897 ==

== ENCOUNTER 2023-07-15 07:46 | Outpatient (REF) | payer MEDICARE, SELFPAY ==
--- NOTE | ~2023-07-15 | CT_ITS ---
EXAMINATION: CT ABDOMEN AND PELVIS WITHOUT AND WITH CONTRAST CLINICAL INFORMATION: Hematuria. COMPARISON: None available. TECHNIQUE: Noncontrast CT of the abdomen and pelvis is performed followed by split bolus contrast-enhanced images using 85 mL Omnipaque 350 contrast.? Postcontrast imaging is performed during the combined nephrogram and excretion phase. Sagittal and coronal reformatted images were obtained on the technologist's workstation for both the precontrast and postcontrast phases. This CT examination was performed using dose optimization techniques as appropriate, variously including the following: *Automated exposure control *Adjustment of mA and/or kV according to patient size (this includes techniques or standardized protocols for targeted exams where dose is matched to indication/reason for exam; i.e. extremities or head) *Use of iterative reconstruction technique DLP: 720 mGy-cm FINDINGS: LUNG BASES: The visualized lung bases are unremarkable. LIVER, GALLBLADDER, AND BILIARY TREE: The liver is normal in size, shape, and attenuation. No focal hepatic lesion or biliary ductal dilatation is present. Status post cholecystectomy. PANCREAS: Unremarkable. SPLEEN: Unremarkable. ADRENAL GLANDS: Unremarkable. KIDNEYS AND URETERS: The kidneys are normal in size, shape, and attenuation. 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 No hydronephrosis, hydroureter, or calculi seen. No perinephric stranding. No renal parenchymal masses are seen. The uroepithelium appears normal without evidence of masses. BLADDER: Unremarkable. GASTROINTESTINAL TRACT: There is extensive left-sided diverticular disease without diverticulitis. The small and large bowel are otherwise unremarkable. No evidence of appendicitis. ABDOMINAL WALL: No significant hernia is appreciated. LYMPH NODES: Normal. VASCULAR: Calcific atherosclerotic changes are present in the aorta and iliofemoral vessels. There is no evidence of an abdominal aortic aneurysm. PELVIC VISCERA: The uterus is not seen. An abnormal adnexal mass is not detected. No free intraperitoneal fluid is present. OSSEUS STRUCTURES: Degenerative changes are present in the lower thoracic spine as well as at L5-S1. No bony destructive lesions. CT/CT urogram IMPRESSION: 1. A cause for the patient's hematuria has not been found. 2. Incidental note made of cholecystectomy, hysterectomy, colonic diverticulosis without diverticulitis and degenerative changes in the spine.
[2023-07-15] MEDS: iohexoL 350 MG/ML 100 ML INFUS..BTL IV (08:48)
== END 2023-07-15 07:47 | disposition home or self-care (01) ==
LOC: HO.CT 07:46
PROVIDERS: PCP Nurse Practitioner Family; Visit Provider Urology
DX: R31.9 Hematuria, unspecified (principal); M79.641 Pain in right hand; M25.641 Stiffness of right hand, not elsewhere classified; R20.0 Anesthesia of skin; R20.2 Paresthesia of skin
CPT/HCPCS: 73130; 74178; 99202; Q9967

== ENCOUNTER 2023-07-15 10:17 | Outpatient (REF) | payer MEDICARE, SELFPAY ==
--- NOTE | ~2023-07-15 | XR_ITS ---
EXAMINATION: XR HAND, RIGHT CLINICAL INFORMATION: Pain in right hand COMPARISON: None available. TECHNIQUE: PA, lateral, and oblique views of the right hand. FINDINGS: The bones are intact. No fracture. Negative ulnar variance. There is marked degenerative change of the first carpometacarpal joint. The radiocarpal joint is narrow. No erosions or soft tissue calcifications. XR/XR hand RT min 3V IMPRESSION: Marked degenerative change of the first carpometacarpal joint.
== END 2023-07-15 10:18 | disposition home or self-care (01) ==
LOC: HO.HOSX 10:17
PROVIDERS: Visit Provider Orthopaedic Surgery
DX: Z13.89 Encounter for screening for other disorder (principal)
CPT/HCPCS: 73130

== ENCOUNTER 2023-07-15 10:38 | Outpatient (AMB) | payer MEDICARE, SELFPAY ==
--- NOTE | 2023-07-15 11:02 | MHC.OFFVIS ---
Intake Visit Reasons: New Prob - right hand pain Intake Note: Adali a 73 year old 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 female presents today for a new problem visit for her right hand pain. Patient reports pain is located in her SF and RF that radiates down to her wrist with occasional tingling. Her pain presented after an IV was placed in her hand in January, causing a large hematoma on her hand. Hematoma improved with pressure and icing. Currently her pain is worse with movement and she has no strength in her SF and RF. Finds no relief sandra taping, biofreeze, icing and heat as well as hand exercises. Hx of trigger finger release on MF and RF at [facility] Dr. Fry. Allergies Nkhsudg-ASH-MsG Reductase Inhibitor [GDSHYEM-BEB-ZDF REDUCTASE INHIBITOR] Allergy (Severe, Verified 07/15/23 11:20) JOINT PAIN amlodipine [AMLODIPINE] Allergy (Intermediate, Verified 07/15/23 11:20) PALIPITATIONS baclofen [BACLOFEN] Allergy (Intermediate, Verified 07/15/23 11:20) LETHARGY Beta-Blockers (Beta-Adrenergic Bloc Allergy (Intermediate, Verified 07/15/23 11:20) BRADYCARDIA budesonide [From SYMBICORT] Allergy (Intermediate, Verified 07/15/23 11:20) HOARSENESS Chocolate Allergy (Intermediate, Verified 07/15/23 11:20) Itching ezetimibe [From ZETIA] Allergy (Intermediate, Verified 07/15/23 11:20) JOINT PAIN, ELEVATED CPK ibandronate sodium [From BONIVA] Allergy (Intermediate, Verified 07/15/23 11:20) CHEST PAIN latex [LATEX] Allergy (Intermediate, Verified 07/15/23 11:20) RASH-SENSITIVITY lisinopril [LISINOPRIL] Allergy (Intermediate, Verified 07/15/23 11:20) COUGH, really bad cough, cough meloxicam [From MOBIC] Allergy (Intermediate, Verified 07/15/23 11:20) GI UPSET mometasone furoate [From DULERA] Allergy (Intermediate, Verified 07/15/23 11:20) COUGH Penicillins [PENICILLINS] Allergy (Intermediate, Verified 07/15/23 11:20) RASH pregabalin [From LYRICA] Allergy (Intermediate, Verified 07/15/23 11:20) RASH,BLURRED VISION raloxifene [From EVISTA] Allergy (Intermediate, Verified 07/15/23 11:20) GERD sertraline [From ZOLOFT] Allergy (Intermediate, Verified 07/15/23 11:20) SKIN CRAWLING spironolactone [SPIRONOLACTONE] Allergy (Intermediate, Verified 07/15/23 11:20) RASH, ?? psoriasis strawberry [STRAWBERRY] Allergy (Intermediate, Verified 07/15/23 11:20) ITCHING tiotropium [From SPIRIVA WITH HANDIHALER] Allergy (Intermediate, Verified 07/15/23 11:20) RAW THROAT adhesive [ADHESIVE] Allergy (Unknown, Verified 07/15/23 11:20) RASH Atrovent Allergy (Unknown, Verified 07/15/23 11:20) Unknown dexlansoprazole [From DEXILANT] Allergy (Unknown, Verified 07/15/23 11:20) UNKNOWN doxycycline [DOXYCYCLINE] Allergy (Unknown, Verified 07/15/23 11:20) SEVERE NOYOLA, HEARTBURN Doxycycline Hyclate Allergy (Unknown, Verified 07/15/23 11:20) headache esomeprazole [Nexium] Allergy (Unknown, Verified 07/15/23 11:20) Unknown fluticasone [From ADVAIR DISKUS] Allergy (Unknown, Verified 07/15/23 11:20) HTN gabapentin [From NEURONTIN] Allergy (Unknown, Verified 07/15/23 11:20) THROAT TIGHTNESS glucosamine Allergy (Unknown, Verified 07/15/23 11:20) Unknown metoclopramide [From REGLAN] Allergy (Unknown, Verified 07/15/23 11:20) LETHARGY monosodium glutamate [MSG] Allergy (Unknown, Verified 07/15/23 11:20) HEADACHE naproxen [From ALEVE] Allergy (Unknown, Verified 07/15/23 11:20) FLUSH niacin Allergy (Unknown, Verified 07/15/23 11:20) Unknown omeprazole Allergy (Unknown, Verified 07/15/23 11:20) Unknown risedronate sodium [From ACTONEL] Allergy (Unknown, Verified 07/15/23 11:20) UNKNOWN rofecoxib [From Vioxx] Allergy (Unknown, Verified 07/15/23 11:20) ankle swelling salmeterol [From ADVAIR DISKUS] Allergy (Unknown, Verified 07/15/23 11:20) HTN scallops [SCALLOPS] Allergy (Unknown, Verified 07/15/23 11:20) NAUSEA & VOMITING tramadol [TRAMADOL] Allergy (Unknown, Verified 07/15/23 11:20) THROAT TIGHTNESS verapamil [VERAPAMIL] Allergy (Unknown, Verified 07/15/23 11:20) IRREGULAR HEARTBEAT lifitegrast [From Xiidra] Allergy (Verified 07/15/23 11:20) blurred vision, headache, eye swelling cyclosporine [From Cequa] Adverse Reaction (Intermediate, Verified 07/15/23 11:20) Swelling fluticasone furoate [From Trelegy Ellipta] Adverse Reaction (Unknown, Verified 07/15/23 11:20) Uknown umeclidinium [From Trelegy Ellipta] Adverse Reaction (Unknown, Verified 07/15/23 11:20) Uknown vilanterol [From Trelegy Ellipta] Adverse Reaction (Unknown, Verified 07/15/23 11:20) Uknown Sulindac Adverse Reaction (Intermediate, Uncoded 07/15/23 11:20) Nausea HPI HPI New Prob - right hand pain: Details: Adali is a 73 year old 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 woman who presents with complaints of right ring & small finger pain & weakness. She reports pain & weakness in her ring & small finger for several months. She had a Hematoma in her right hand from an IV on 02/05/23 during an EGD. She says the Hematoma resolved but since she has had pain radiating from these fingers into her wrist, along with tingling & weakness. She says a few days ago her small finger snapped over and back into place. She denies any locking or catching She says she has no strength in her ring & small fingers. She has found no improvement in her motion or strength with icing, heat, hand exercises, or Sandra-taping She has a Hx of a right middle & ring finger trigger release by Dr. Fry at [facility]. She also reports a hx of a medial epicondyle debridement by Dr. Fry as well, she is unsure if she had a cubital tunnel release that that time, but does not have a copy of the OP note. [facility] Medical History History of trigger finger Right groin pain Cervical radiculitis Chronic sinusitis COVID-19 vaccine administered Trigger finger GERD (gastroesophageal reflux disease) FRANCESCA (obstructive sleep apnea) CAD (coronary artery disease) History of primary hyperparathyroidism Non-toxic multinodular goiter Osteoporosis Pulmonary nodules H/O gastroesophageal reflux (GERD) HLD (hyperlipidemia) HTN (hypertension) COPD (chronic obstructive pulmonary disease) Asthma History of aneurysm Migraine Depression PTSD (post-traumatic stress disorder) History of panic attacks Right inguinal hernia Anxiety Umbilical pain Edema Dizziness History of deviated nasal septum Medial epicondylitis of left elbow Fusion of spine, cervical region Surgical History H/O cervical spine surgery Hx of hand surgery Hx of right inguinal hernia repair History of hernia repair Hx of colonoscopy History of esophagogastroduodenoscopy (EGD) S/P repair of paraesophageal hernia H/O decompression of ulnar nerve Status post ablation of incompetent vein using laser History of cardiac catheterization History of eyelid surgery History of appendectomy History of parathyroidectomy History of cholecystectomy Hx of cataract surgery Hx of shoulder surgery S/P cubital tunnel release S/P arthroscopic surgery of right knee History of lumpectomy of both breasts History of hysterectomy Hx of adenoidectomy Hx of tonsillectomy Hx of eye surgery Family History Father Liver cancer Psoriasis Cancer Mental health disorder Mother Cervical cancer Ovarian cancer Heart attack Substance use disorder Social History (Updated 07/15/23 @ 11:14 by CURRY Lamsa) Household Members: Children and None Housing: House Alcohol intake: current Alcohol intake frequency: does not drink Patient Tobacco Use Status: Former Tobacco user Tobacco use type: Cigarette e-Cigarette/Vaping Use: Never Used Second Hand Smoke Exposure: No service: No Current occupational status: employed 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, 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 Cognitive needs: No Hearing needs: No Vision needs: No Review of Systems Const All systems reviewed & are unremarkable except as noted in HPI and below Physical Exam Const General: cooperative, healthy appearing and no acute distress Orientation/consciousness: patient oriented x3 HEENT Head: Yes normocephalic and Yes atraumatic Eyes EOM: EOMs intact bilaterally Resp Effort & Inspection: normal respiratory effort and able to speak in complete sentences Cardio Jugular venous distension: no JVD Skin General skin exam: turgor normal Rashes: no rashes Neuro General: patient oriented x3 Extrem Other: Evaluation of Right Upper Extremity: The patient is alert, oriented, and in no acute distress Neuro: Normal sensation in the median nerve distribution. Decreased sensation in the ulnar nerve distribution No thenar or intrinsic wasting Good APB muscle belly firing and good finger cross Patient initially holding the small finger in abduction. With encouragement however, I was able to get her to actively adduct her small finger to the ring finger. When I asked her to extend her fingers she was tending to hold the small finger in some slight MCP flexion at the small finger, with the rest of the small finger held in extension. With encouragement I could then get her to actively extend the small finger also at the MCP joint. She can make a nice fist. Good abduction of the fingers against resistance bilaterally. Patient with 1/10 tenderness to the ECU tendon as it passes over the wrist. This increases to 2/10 tenderness at the ECU insertion. No pain with resisted wrist extension No pain with resisted finger extension to all the fingers including the small fingers. She appeared to be most tender to palpation in between the 4th and 5th metacarpals at about the mid shaft level. There is no swelling or ecchymosis are resolving hematoma in this area at this time. She was also about 4 to 5/10 tenderness over the dorsal aspect of the 5th metacarpal but not particularly tender over the ulnar aspect of the 5th metacarpal. No tenderness over the hypothenar muscles. She had about 4 5/10 tenderness over the dorsal aspect of the 5th metacarpal and then similarly about 4 to 5/10 tenderness over the A1 scotty area of the 5th metacarpal. No visible locking or catching. No extensor tendon subluxation involving the 5th digit. Perhaps some ulnar subluxation of the ring finger extensor tendon but no difficulty with active extension Vascular: Cap refill brisk ROM: She can make a fist and extend all her digits Skin: No lacerations or abrasions. General: No Ecchymosis. No Erythema or evidence of infection. Radiographs: 3 views of the right hand were taken and viewed by me today in clinic. They show no fractures or dislocations. She has some basal joint osteoarthritis. No significant radiographic abnormalities involving the 4th or 5th rays from the wrist joint out to the digits. Psych Appearance: grossly normal Affect: normal affect Attitude: cooperative Assessment & Plan Assessment & Plan (1) Hand pain, right: Code(s): M79.641 - Pain in right hand Category: Medical (2) Numbness and tingling in right hand: Code(s): R20.0 - Anesthesia of skin; R20.2 - Paresthesia of skin Category: Medical (3) Stiffness of right hand joint: Code(s): M25.641 - Stiffness of right hand, not elsewhere classified Category: Medical Plan Assessment & Plan: 1. Right ulnar-sided hand pain Appears secondary to IV infiltration and hematoma DOI: 02/06/24 Recovery took 4+ weeks, per patient I educated her about these conditions I discussed activity modification, I recommend she work on ROM exercises at home I ordered OT hand therapy to work on ROM, desensitization, and normalizing hand function She will discontinue her splint at this time Good function of EDC tendons and wrist extensors at this time, and no pain with testing of these tendons against resistance. 2. Right hand numbness In the ulnar nerve distribution I ordered a NCS to assess for peripheral nerve compression She will follow up when completed for review Note: This patient appears to have a fairly long history with Dr. Fry. She is status post right middle and ring finger trigger fingers. She is also reportedly status post a right medial epicondylar debridement. It is unclear whether not she had a cubital tunnel release or transposition, though probably not. I will need an operative report from this procedure, if I need to consider possible cubital tunnel release. Scribed for Marisol Cagle MD by Keyon Manzo, medical technical writer, on [ ] at [ ], EST. Orders: Orders XR hand RT min 3V Today M79.641 - Pain in right hand NE nerve conduction velocity Today R20.0 - Anesthesia of skin, R20.2 - Paresthesia of skin OT Evaluation and Treatment Today M25.641 - Stiffness of right hand, not elsewhere classified, R20.0 - Anesthesia of skin, R20.2 - Paresthesia of skin Coding Level of Care Code New Pt Level 4 (69631) Diagnoses Hand pain, right M79.641 Numbness and tingling in right hand R20.0; R20.2 Stiffness of right hand joint M25.641
== END 2023-07-15 11:42 | disposition home or self-care (01) ==
PROVIDERS: PCP Nurse Practitioner Family; Visit Provider Orthopaedic Surgery
DX: M79.641 Pain in right hand (principal); R20.0 Anesthesia of skin; R20.2 Paresthesia of skin; M25.641 Stiffness of right hand, not elsewhere classified
CPT/HCPCS: 99204

== ENCOUNTER 2023-07-25 10:07 | Outpatient (AMB) | payer MEDICARE, SELFPAY ==
--- NOTE | 2023-07-25 10:31 | A.OFFVIS_ITS ---
Intake Visit Reasons: cysto/CT Intake Note: Patient presents today for a CYSTOSCOPY Procedure: Meds: None Allergies to Antibiotic: Penicillin Blood Thinner: Aspirin Disposable Uro-G HD Cystoscope Cannula: Lot: [id number] Exp: 02/11/2026 Menu Planner Required: No Accompanied by: Self / Same As Patient Allergies Tuepvxf-EQC-DuZ Reductase Inhibitor [[id number] REDUCTASE INHIBITOR] Allergy (Severe, Verified 07/25/23 10:34) JOINT PAIN amlodipine [AMLODIPINE] Allergy (Intermediate, Verified 07/25/23 10:34) PALIPITATIONS baclofen [BACLOFEN] Allergy (Intermediate, Verified 07/25/23 10:34) LETHARGY Beta-Blockers (Beta-Adrenergic Bloc Allergy (Intermediate, Verified 07/25/23 10:34) BRADYCARDIA budesonide [From SYMBICORT] Allergy (Intermediate, Verified 07/25/23 10:34) HOARSENESS Chocolate Allergy (Intermediate, Verified 07/25/23 10:34) Itching ezetimibe [From ZETIA] Allergy (Intermediate, Verified 07/25/23 10:34) JOINT PAIN, ELEVATED CPK ibandronate sodium [From BONIVA] Allergy (Intermediate, Verified 07/25/23 10:34) CHEST PAIN latex [LATEX] Allergy (Intermediate, Verified 07/25/23 10:34) RASH-SENSITIVITY lisinopril [LISINOPRIL] Allergy (Intermediate, Verified 07/25/23 10:34) COUGH, really bad cough, cough meloxicam [From MOBIC] Allergy (Intermediate, Verified 07/25/23 10:34) GI UPSET mometasone furoate [From DULERA] Allergy (Intermediate, Verified 07/25/23 10:34) COUGH Penicillins [PENICILLINS] Allergy (Intermediate, Verified 07/25/23 10:34) RASH pregabalin [From LYRICA] Allergy (Intermediate, Verified 07/25/23 10:34) RASH,BLURRED VISION raloxifene [From EVISTA] Allergy (Intermediate, Verified 07/25/23 10:34) GERD sertraline [From ZOLOFT] Allergy (Intermediate, Verified 07/25/23 10:34) SKIN CRAWLING spironolactone [SPIRONOLACTONE] Allergy (Intermediate, Verified 07/25/23 10:34) RASH, ?? psoriasis strawberry [STRAWBERRY] Allergy (Intermediate, Verified 07/25/23 10:34) ITCHING tiotropium [From SPIRIVA WITH HANDIHALER] Allergy (Intermediate, Verified 10:34) RAW THROAT adhesive [ADHESIVE] Allergy (Unknown, Verified 07/25/23 10:34) RASH Atrovent Allergy (Unknown, Verified 07/25/23 10:34) Unknown dexlansoprazole [From DEXILANT] Allergy (Unknown, Verified 07/25/23 10:34) UNKNOWN doxycycline [DOXYCYCLINE] Allergy (Unknown, Verified 07/25/23 10:34) SEVERE NOYOLA, HEARTBURN Doxycycline Hyclate Allergy (Unknown, Verified 07/25/23 10:34) headache esomeprazole [Nexium] Allergy (Unknown, Verified 07/25/23 10:34) Unknown fluticasone [From ADVAIR DISKUS] Allergy (Unknown, Verified 07/25/23 10:34) HTN gabapentin [From NEURONTIN] Allergy (Unknown, Verified 07/25/23 10:34) THROAT TIGHTNESS glucosamine Allergy (Unknown, Verified 07/25/23 10:34) Unknown metoclopramide [From REGLAN] Allergy (Unknown, Verified 07/25/23 10:34) LETHARGY monosodium glutamate [MSG] Allergy (Unknown, Verified 07/25/23 10:34) HEADACHE naproxen [From ALEVE] Allergy (Unknown, Verified 07/25/23 10:34) FLUSH niacin Allergy (Unknown, Verified 07/25/23 10:34) Unknown omeprazole Allergy (Unknown, Verified 07/25/23 10:34) Unknown risedronate sodium [From ACTONEL] Allergy (Unknown, Verified 07/25/23 10:34) UNKNOWN rofecoxib [From Vioxx] Allergy (Unknown, Verified 07/25/23 10:34) ankle swelling salmeterol [From ADVAIR DISKUS] Allergy (Unknown, Verified 07/25/23 10:34) HTN scallops [SCALLOPS] Allergy (Unknown, Verified 07/25/23 10:34) NAUSEA & VOMITING tramadol [TRAMADOL] Allergy (Unknown, Verified 07/25/23 10:34) THROAT TIGHTNESS verapamil [VERAPAMIL] Allergy (Unknown, Verified 07/25/23 10:34) IRREGULAR HEARTBEAT lifitegrast [From Xiidra] Allergy (Verified 07/25/23 10:34) blurred vision, headache, eye swelling cyclosporine [From Cequa] Adverse Reaction (Intermediate, Verified 07/25/23 10:34) Swelling fluticasone furoate [From Trelegy Ellipta] Adverse Reaction (Unknown, Verified 07/25/23 10:34) Uknown umeclidinium [From Trelegy Ellipta] Adverse Reaction (Unknown, Verified 07/25/23 10:34) Uknown vilanterol [From Trelegy Ellipta] Adverse Reaction (Unknown, Verified 07/25/23 10:34) Uknown naproxen Allergy (Mild, Uncoded 07/25/23 10:43) rash Sulindac Adverse Reaction (Intermediate, Uncoded 07/25/23 10:34) Nausea HPI Comments Details: 07/25/2023--here for cystoscopy. CT urogram--within normal limits. Cystoscopy findings: Mild to moderate bladder wall thickening. 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 Discussed cystoscopy TURBT. Consent obtained. Review of chart: 05/19/23--Adali is a 73-year-old female who is here for evaluation for microscopic hematuria. The patient has a history of nicotine use quit in 1979. The patient has lower urinary tract symptoms of urinary frequency. 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 She states she is no longer routinely following with [employer] but told by [employer] MECH[employer] SUPER[employer] about 3 years ago that she had vaginal prolapse. She denies dysuria. Urinalysis trace blood, 0 leukocytes. I have discussed microscopic hematuria may be due to but not limited to kidney stones, BPH, cystitis, urinary tract malignancy. I have discussed work up to include evaluation of the urinary tract which may include imaging, further urine testing, and cystoscopy Plan--CT urogram, urine for cytology, follow-up office cystoscopy [facility] Medical History (Updated 07/30/23 @ 09:41 by Chloe Dodge MD) History of trigger finger Right groin pain Cervical radiculitis Chronic sinusitis COVID-19 vaccine administered Trigger finger GERD (gastroesophageal reflux disease) FRANCESCA (obstructive sleep apnea) CAD (coronary artery disease) History of primary hyperparathyroidism Non-toxic multinodular goiter Osteoporosis Pulmonary nodules H/O gastroesophageal reflux (GERD) HLD (hyperlipidemia) HTN (hypertension) COPD (chronic obstructive pulmonary disease) Asthma History of aneurysm Migraine Depression PTSD (post-traumatic stress disorder) History of panic attacks Right inguinal hernia Anxiety Umbilical pain Edema Dizziness History of deviated nasal septum Medial epicondylitis of left elbow Fusion of spine, cervical region Surgical History (Updated 07/25/23 @ 10:34 by CURRY Nuno) Hx of cystoscopy H/O cervical spine surgery Hx of hand surgery Hx of right inguinal hernia repair History of hernia repair Hx of colonoscopy History of esophagogastroduodenoscopy (EGD) S/P repair of paraesophageal hernia H/O decompression of ulnar nerve Status post ablation of incompetent vein using laser History of cardiac catheterization History of eyelid surgery History of appendectomy History of parathyroidectomy History of cholecystectomy Hx of cataract surgery Hx of shoulder surgery S/P cubital tunnel release S/P arthroscopic surgery of right knee History of lumpectomy of both breasts History of hysterectomy Hx of adenoidectomy Hx of tonsillectomy Hx of eye surgery Family History Father Liver cancer Psoriasis Cancer Mental health disorder Mother Cervical cancer Ovarian cancer Heart attack Substance use disorder Social History Household Members: Children and None Housing: House Alcohol intake: current Alcohol intake frequency: does not drink Patient Tobacco Use Status: Former Tobacco user Tobacco use type: Cigarette e-Cigarette/Vaping Use: Never Used Second Hand Smoke Exposure: No service: No Current occupational status: employed 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, 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 Cognitive needs: No Hearing needs: No Vision needs: No Review of Systems Const All systems reviewed & are unremarkable except as noted in HPI and below Reports no additional complaints Eyes Reports no additional complaints ENT Reports no additional complaints Card Reports no additional complaints Resp Reports no additional complaints GI Reports no additional complaints Reports as per HPI Musc Reports no additional complaints Skin/Breast Reports system reviewed and no additional complaints, except as documented Neuro Reports no additional complaints Psych Reports no additional complaints Endo Reports no additional complaints Jesse/Lymph Reports no additional complaints Aller/Immun Reports no additional complaints Office Procedures Cystoscopy Consent Discussed risk and benefit or proposed procedure with the patient. Information consent for procedure given to the patient. Discussed technical aspects, risks, benefits and alternatives in full. Addressed all of the patient's questions and concerns regarding the procedure. The patient demonstrated knowledge and understanding. They wish to proceed with this procedure. Preparation The patient was prepped in the usual manner. A associate professor of criminal justice was present and in the room. Genitalia was prepped with betadine solution in a sterile manner. Lidocaine Jelly 2% was placed into the urethra and 16Fr flexible Olympus cystoscope was inserted into the meatus after adequate lubrication. Procedure Time out per protocol performed. Bladder Inspection Bladder Inspection: The bladder was inspected in its entirety with utilization retroflexion displaying: Tumor(s): papillary tumor left lateral wall Trabeculation: present - mild to moderate Mucosal Erthema: NA Orifices: normal shape and position Urethra: normal Cystoscopy findings: Mild to moderate bladder wall thickening. 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 [id number] DISPOSABLE SCOPE URO-G FLEXIBLE SCOPE Procedure code (CPT) selection complete Office Meds lidocaine HCl 2 % mucosal jelly in applicator Performing Provider: Chloe Dodge MD Performing [place] [facility] Administered by: Sander Victoria LPN on 07/25/23 10:41 Dose Route Admin Location Dispensed Lot Number Expiration Date ND Stock Layer 10 mL intra-urethral 20 mL naproxen 500 mg tablet Performing Provider: Chloe Dodge MD Performing [place] [facility] Documented (not given) by: Sander Victoria LPN on 07/25/23 10:41 Reason Not Given: Patient is Allergic ciprofloxacin HCl 500 mg tablet Performing Provider: Chloe Dodge MD Performing Location: [facility] Administered by: Sander Victoria LPN on 07/25/23 10:41 Dose Route Admin Location Dispensed Lot Number Expiration Date ND Stock Layer 500 mg PO 1 tab Results Reviewed Results Reviewed: Date of Service: 07/15/23 EXAMINATION: CT ABDOMEN AND PELVIS WITHOUT AND WITH CONTRAST CLINICAL INFORMATION: Hematuria. COMPARISON: None available. DLP: 720 mGy-cm FINDINGS: LUNG BASES: The visualized lung bases are unremarkable. LIVER, GALLBLADDER, AND BILIARY TREE: The liver is normal in size, shape, and attenuation. No focal hepatic lesion or biliary ductal dilatation is present. Status post cholecystectomy. PANCREAS: Unremarkable. SPLEEN: Unremarkable. ADRENAL GLANDS: Unremarkable. KIDNEYS AND URETERS: The kidneys are normal in size, shape, and attenuation. 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 No hydronephrosis, hydroureter, or calculi seen. No perinephric stranding. No renal parenchymal masses are seen. The uroepithelium appears normal without evidence of masses. BLADDER: Unremarkable. GASTROINTESTINAL TRACT: There is extensive left-sided diverticular disease without diverticulitis. The small and large bowel are otherwise unremarkable. No evidence of appendicitis. ABDOMINAL WALL: No significant hernia is appreciated. LYMPH NODES: Normal. VASCULAR: Calcific atherosclerotic changes are present in the aorta and iliofemoral vessels. There is no evidence of an abdominal aortic aneurysm. PELVIC VISCERA: The uterus is not seen. An abnormal adnexal mass is not detected. No free intraperitoneal fluid is present. OSSEUS STRUCTURES: Degenerative changes are present in the lower thoracic spine as well as at L5-S1. No bony destructive lesions. IMPRESSION: 1. A cause for the patient's hematuria has not been found. Assessment & Plan Assessment & Plan (1) History of nicotine use: Code(s): Z87.891 - Personal history of nicotine dependence Category: Medical (2) Microscopic hematuria: Code(s): R31.29 - Other microscopic hematuria Category: Medical (3) Urinary frequency: Code(s): R35.0 - Frequency of micturition Category: Medical (4) Hematuria: Code(s): R31.9 - Hematuria, unspecified Category: Medical (5) Bladder tumor: Code(s): D49.4 - Neoplasm of unspecified behavior of bladder Category: Medical (6) Bladder wall thickening: Code(s): N32.89 - Other specified disorders of bladder Category: Medical Plan cystoscopy TURBT. Consent obtained. Orders: Orders 2 AMB Cystoscopy 07/25/23 N39.0 - Urinary tract infection, site not specified, R31.29 - Other microscopic hematuria, R31.9 - Hematuria, unspecified, R35.0 - Frequency of micturition, R39.15 - Urgency of urination Patient Instructions: The patient had an opportunity to ask questions regarding treatment plan. The patient expressed understanding and agreement with the above treatment plan. The patient is aware they should contact our office by phone for worsening of their current condition or the appearance of new symptoms. Compliance is encouraged with any medications and followup testing that is ordered. It is a privilege to be allowed the opportunity to participate in the urologic care of your patient. If you have any questions or concerns regarding treatment for the above conditions please do not hesitate to contact me. The office telephone contact is [phone]. This note is constructed in part using voice recognition software. While every effort has been made to ensure accuracy frame cleaner errors may have been included. Yours sincerely, Chloe Dodge MD Coding Level of Care Code Est Pt Level 4 (80417) Diagnoses History of nicotine use Z87.891 Microscopic hematuria R31.29 Urinary frequency R35.0 Hematuria R31.9 Bladder tumor D49.4 Bladder wall thickening N32.89 CPT Codes Cystoscopy - CPT: [id number] ([id number])
== END 2023-07-25 11:28 | disposition home or self-care (01) ==
PROVIDERS: PCP Nurse Practitioner Family; Visit Provider Urology
DX: D49.4 Neoplasm of unspecified behavior of bladder (principal); R39.15 Urgency of urination; N39.0 Urinary tract infection, site not specified; R35.0 Frequency of micturition; R31.29 Other microscopic hematuria
CPT/HCPCS: 52000; 99214

== ENCOUNTER → 2023-07-25 10:07 | Outpatient (BNVA) | payer MEDICARE, SELFPAY | PROVIDERS: PCP Nurse Practitioner Family; Visit Provider Urology | DX: R31.29 Other microscopic hematuria (principal); R35.0 Frequency of micturition; D49.4 Neoplasm of unspecified behavior of bladder; N32.89 Other specified disorders of bladder; Z87.891 Personal history of nicotine dependence | CPT/HCPCS: 52000; 99212 ==

== ENCOUNTER 2023-07-29 07:47 | Outpatient (REF) | payer MEDICARE, SELFPAY ==
--- NOTE | 2023-07-29 08:10 | EMG_ITS ---
Right median and ulnar motor and sensory studies were performed. Right median and lateral antecubital brachial sensory studies were performed. Right radial sensory and dorsal ulnar sensory study was performed and needle examination was performed. IMPRESSION: 1. 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 2. Mild right median neuropathy across carpal tunnel. MD LEANNA Mccloud/GIOVANA / [id number]
== END 2023-07-29 07:48 | disposition home or self-care (01) ==
LOC: HO.NEURO 07:47
PROVIDERS: PCP Nurse Practitioner Family; Visit Provider Orthopaedic Surgery
DX: R20.0 Anesthesia of skin (principal); R20.2 Paresthesia of skin
CPT/HCPCS: 95886; 95910

== ENCOUNTER 2023-08-13 08:11 | Outpatient (AMB) | payer MEDICARE, SELFPAY ==
[2023-08-13 08:30] VITALS: BP 122/70; PULSE 71; O2SAT 99; BMI 31.9
--- NOTE | 2023-08-13 08:30 | MHC.OFFVIS ---
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: No Allergies Yuxcvam-LJD-NkW Reductase Inhibitor [ZUETNAE-BRK-ZVM REDUCTASE INHIBITOR] Allergy (Severe, Verified 08/13/23 10:42) JOINT PAIN amlodipine [AMLODIPINE] Allergy (Intermediate, Verified 08/13/23 10:42) PALIPITATIONS baclofen [BACLOFEN] Allergy (Intermediate, Verified 08/13/23 10:42) LETHARGY Beta-Blockers (Beta-Adrenergic Bloc Allergy (Intermediate, Verified 08/13/23 10:42) BRADYCARDIA budesonide [From SYMBICORT] Allergy (Intermediate, Verified 08/13/23 10:42) HOARSENESS Chocolate Allergy (Intermediate, Verified 08/13/23 10:42) Itching ezetimibe [From ZETIA] Allergy (Intermediate, Verified 08/13/23 10:42) JOINT PAIN, ELEVATED CPK ibandronate sodium [From BONIVA] Allergy (Intermediate, Verified 08/13/23 10:42) CHEST PAIN latex [LATEX] Allergy (Intermediate, Verified 08/13/23 10:42) RASH-SENSITIVITY lisinopril [LISINOPRIL] Allergy (Intermediate, Verified 08/13/23 10:42) COUGH, really bad cough, cough meloxicam [From MOBIC] Allergy (Intermediate, Verified 08/13/23 10:42) GI UPSET mometasone furoate [From DULERA] Allergy (Intermediate, Verified 08/13/23 10:42) COUGH Penicillins [PENICILLINS] Allergy (Intermediate, Verified 08/13/23 10:42) RASH pregabalin [From LYRICA] Allergy (Intermediate, Verified 08/13/23 10:42) RASH,BLURRED VISION raloxifene [From EVISTA] Allergy (Intermediate, Verified 08/13/23 10:42) GERD sertraline [From ZOLOFT] Allergy (Intermediate, Verified 08/13/23 10:42) SKIN CRAWLING spironolactone [SPIRONOLACTONE] Allergy (Intermediate, Verified 08/13/23 10:42) RASH, ?? psoriasis strawberry [STRAWBERRY] Allergy (Intermediate, Verified 08/13/23 10:42) ITCHING tiotropium [From SPIRIVA WITH HANDIHALER] Allergy (Intermediate, Verified 08/13/23 10:42) RAW THROAT adhesive [ADHESIVE] Allergy (Unknown, Verified 08/13/23 10:42) RASH Atrovent Allergy (Unknown, Verified 08/13/23 10:42) Unknown dexlansoprazole [From DEXILANT] Allergy (Unknown, Verified 08/13/23 10:42) UNKNOWN doxycycline [DOXYCYCLINE] Allergy (Unknown, Verified 08/13/23 10:42) SEVERE NOYOLA, HEARTBURN Doxycycline Hyclate Allergy (Unknown, Verified 08/13/23 10:42) headache esomeprazole [Nexium] Allergy (Unknown, Verified 08/13/23 10:42) Unknown fluticasone [From ADVAIR DISKUS] Allergy (Unknown, Verified 08/13/23 10:42) HTN gabapentin [From NEURONTIN] Allergy (Unknown, Verified 08/13/23 10:42) THROAT TIGHTNESS glucosamine Allergy (Unknown, Verified 08/13/23 10:42) Unknown metoclopramide [From REGLAN] Allergy (Unknown, Verified 08/13/23 10:42) LETHARGY monosodium glutamate [MSG] Allergy (Unknown, Verified 08/13/23 10:42) HEADACHE naproxen [From ALEVE] Allergy (Unknown, Verified 08/13/23 10:42) FLUSH niacin Allergy (Unknown, Verified 08/13/23 10:42) Unknown omeprazole Allergy (Unknown, Verified 08/13/23 10:42) Unknown risedronate sodium [From ACTONEL] Allergy (Unknown, Verified 08/13/23 10:42) UNKNOWN rofecoxib [From Vioxx] Allergy (Unknown, Verified 08/13/23 10:42) ankle swelling salmeterol [From ADVAIR DISKUS] Allergy (Unknown, Verified 08/13/23 10:42) HTN scallops [SCALLOPS] Allergy (Unknown, Verified 08/13/23 10:42) NAUSEA & VOMITING tramadol [TRAMADOL] Allergy (Unknown, Verified 08/13/23 10:42) THROAT TIGHTNESS verapamil [VERAPAMIL] Allergy (Unknown, Verified 08/13/23 10:42) IRREGULAR HEARTBEAT lifitegrast [From Xiidra] Allergy (Verified 08/13/23 10:42) blurred vision, headache, eye swelling cyclosporine [From Cequa] Adverse Reaction (Intermediate, Verified 08/13/23 10:42) Swelling fluticasone furoate [From Trelegy Ellipta] Adverse Reaction (Unknown, Verified 08/13/23 10:42) Uknown umeclidinium [From Trelegy Ellipta] Adverse Reaction (Unknown, Verified 08/13/23 10:42) Uknown vilanterol [From Trelegy Ellipta] Adverse Reaction (Unknown, Verified 08/13/23 10:42) Uknown naproxen Allergy (Mild, Uncoded 08/13/23 08:33) rash Sulindac Adverse Reaction (Intermediate, Uncoded 08/13/23 08:33) Nausea HPI Comments Details: The patient is a 73-year-old woman with history of asthma in addition to hiatal hernia. Overall her respiratory symptoms have been stable and she was able to get off her maintenance inhaler. She has been having symptoms and she feels is mainly due to hiatal hernia. She has been seen closely by GI. They tried multiple medications in addition to reflux diet. She did try Reglan the resulted in significant side effects. I did tell her that there are other promotility agents she can consider. She understands that having underlying reflux and hiatal hernia can result in worsening respiratory symptoms due to the microaspiration. I did provide the patient again with another reflux diet to make sure she is following the proper diet. We did review her last CT scan of the chest that demonstrated stable pulmonary nodules which was done at [facility]. Otherwise patient is without any other complaints. She still having significant reflux disease and regurgitation. She is followed closely by GI and now going to be followed up with surgery for possible surgical intervention for her persistent symptoms. We again talked about promotility agents, but, does not feel like dose going to work due to the fact that she has a pretty complicated hiatal hernia. We did again review her pulmonary nodules which appear to be stable for many years which is reassuring. 04/24/2022 the patient is here for pulmonary follow-up visit. Overall the patient is doing fairly well. She has not had to use her inhalers much. She does have a rescue inhaler that she can use as needed. She also has episodes of chest tightness mainly in the substernal area. Sometimes she associates it with her reflux disease. She continues to be on the medication for the reflux and Country knows to follow reflux diet. Although she continues to have symptoms. Explained to her that sometimes the reflux can result in micro aspirations into the lungs. She does have some changes primarily in the left lower lobe that are suspicious for bronchiolitis which could be due to aspiration. Her last CT scan of the chest was back in April 2021 demonstrating some new 4 mm pulmonary nodules which are subsolid in nature. The other nodules were stable. Will have the patient start CPT with flutter valve to try to clear any mucus at all the airways and plan to repeat the CT scan in 6 months which be 18 month follow-up CT scan for the new nodules. 10/30/2022 a the patient is here for pulmonary follow-up visit. The patient is healing in recovering after having cervical surgery the anterior approach. She had back in June. After she lost her voice for some time. She was having hard time with her breathing or shortness of breath and also chest pain. She was given 2 days of Decadron but no more because the recovery process. The patient was evaluated by ENT and had a laryngoscopy without any significant findings. They recommended speech therapy and also a barium modified barium swallow. She then saw GI and switched over to a regular barium swallow. Question of the metal plate affecting her swallow. As far as her breathing has been okay she has not had to use her rescue inhaler. Although she is concerned about the chest pain. The patient has been sleeping on a positional bed and she does have sleep apnea but she has been maintaining positional therapy. She has been on omeprazole and also Carafate for her reflux disease. We talked about the importance of a reflux diet. Also at the barium swallows okay she can consider a promotility agent. As far as her pulmonary nodules are stable. She does have some bronchitis as within the airways themselves but otherwise clinically stable. After she gets the barium swallow she was having a message for further recommendations. 01/25/2023 the patient is here for a pulmonary follow-up visit. She is doing relatively well from a respiratory status. She has been using the Xopenex as needed. Typically she has reflux issues is subsequently the reflux may exacerbate her breathing. Her rescue inhaler does help adjust partially. She is wondering if she can go back on QVAR. She were seemed to also help her. She is changing insurances so therefore may be better covered. I will go ahead and set of the QVAR again that she can use as prescribed. In addition to that she will be seen the GI doctor soon. She still having issues with reflux and also having issues with dysphagia. We also looked at her last CT scan that was done back in September 2022. It is reassuring that her pulmonary nodules are stable. She did have some slight inflammation of the right upper lung area suggesting some airways disease but it was minimal. No further imaging at this time. We will have her discuss additional imaging during the next visit. 04/10/2023 the patient is here for sick visit. Apparently she started developing worsening respiratory symptoms last 7-10 days. She was having cough in addition to shortness of breath and chest tightness. She went to an urgent care where she is found to have significant crackles on exam looked more than right suggesting of an atypical pneumonia. The patient is given a course of Z-Nilton in addition to short course of prednisone. She is already feeling better. Although she still feels some cough and some minimal wheezing. She has been using her inhalers. We did examine her lungs in her crackles are significantly better. She just has some trace crackles on the left lung now. Will go in request a chest x-ray to assess the area. If the area looks significantly abnormal then I will call her to give her additional medications. But at this point she would like to hold off on additional antibiotics. She also does not do well with prednisone. She will continue using her respiratory medications. she is having issues with her esophagus. She does have esophageal stricture and she did require dilation back in January of 2023. it was recommended she have a repeat procedure specially since she had significant scarring of the esophagus. I do believe that she is okay at this point and she may be able to proceed with the procedure. Since she is just now recovering from this illness I would least recommend she can wait least 2 weeks before having any interventions. 08/13/2023 the patient is here for a pulmonary follow-up visit. Overall she is doing okay from respiratory status. Although she started developing some increased nasal congestion sinus pressure and postnasal drip. She is feeling like she started to develop component of sinusitis. She is concerned because she is going to undergo surgery next week. 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 She will undergo procedure under anesthesia. Clinically she is doing well from a respiratory status and she is able to proceed with therapy. In the meantime will start her on a Z-Nilton to treat her in case symptoms worsen over the weekend she has been having issues with her inhalers. QVAR seems to work the best for her. Will go ahead and resend a prescription to pharmacy. She does not tolerate powdered inhalers because the Irritate the throat. The patient continues with the reflux diet. as far as imaging studies the patient had a chest x-ray back in 04/30/2023 without any acute disease. She also had a CT scan back in 2022 demonstrating stable pulmonary nodules and some minimal airways disease. Will follow-up in 6 months and discuss any additional testing if warranted. [facility] Medical History (Updated 08/13/23 @ 11:16 by Keyon Manzo) History of trigger finger Right groin pain Cervical radiculitis Chronic sinusitis COVID-19 vaccine administered Trigger finger GERD (gastroesophageal reflux disease) FRANCESCA (obstructive sleep apnea) CAD (coronary artery disease) History of primary hyperparathyroidism Non-toxic multinodular goiter Osteoporosis Pulmonary nodules H/O gastroesophageal reflux (GERD) HLD (hyperlipidemia) HTN (hypertension) COPD (chronic obstructive pulmonary disease) Asthma History of aneurysm Migraine Depression PTSD (post-traumatic stress disorder) History of panic attacks Right inguinal hernia Anxiety Umbilical pain Edema Dizziness History of deviated nasal septum Medial epicondylitis of left elbow Fusion of spine, cervical region Surgical History (Updated 07/25/23 @ 10:34 by CURRY Nuno) Hx of cystoscopy H/O cervical spine surgery Hx of hand surgery Hx of right inguinal hernia repair History of hernia repair Hx of colonoscopy History of esophagogastroduodenoscopy (EGD) S/P repair of paraesophageal hernia H/O decompression of ulnar nerve Status post ablation of incompetent vein using laser History of cardiac catheterization History of eyelid surgery History of appendectomy History of parathyroidectomy History of cholecystectomy Hx of cataract surgery Hx of shoulder surgery S/P cubital tunnel release S/P arthroscopic surgery of right knee History of lumpectomy of both breasts History of hysterectomy Hx of adenoidectomy Hx of tonsillectomy Hx of eye surgery Family History Father Liver cancer Psoriasis Cancer Mental health disorder Mother Cervical cancer Ovarian cancer Heart attack Substance use disorder Social History Household Members: Children and None Housing: House Alcohol intake: current Alcohol intake frequency: does not drink Patient Tobacco Use Status: Former Tobacco user Tobacco use type: Cigarette e-Cigarette/Vaping Use: Never Used Second Hand Smoke Exposure: No service: No Current occupational status: employed 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, 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 Cognitive needs: No Hearing needs: No Vision needs: No Review of Systems Const Reports body aches, Denies chills, Denies fatigue and Denies fever(s) ENT Reports otalgia (R ear), Reports nasal congestion, Reports nasal discharge, Reports sinus pressure, Denies sore throat and Denies throat swelling Card Denies chest pain, Denies rapid heart rate and Reports dyspnea Resp Reports chest congestion, Reports cough, Denies hemoptysis, Denies excessive phlegm production, Reports dyspnea and Reports wheezing GI Denies abdominal pain Reports as per HPI and Reports hematuria Musc Reports back pain Endo Denies fatigue Aller/Immun Denies throat swelling and Reports wheezing Physical Exam Vital Signs: Last Vital Signs Pulse 71 08/13/23 08:30 BP 122/70 08/13/23 08:30 Pulse Ox 99 08/13/23 08:30 Oxygen Delivery Method Room Air 08/13/23 08:30 BMI result Body Mass Index 31.9 Const General: alert Eyes Pupils: Equal, round and reactive pupils present Neck Neck: Yes normal visual inspection, Yes full ROM and Yes no lymphadenopathy Chest Chest palpation & inspection: normal inspection of the chest Resp Auscultation: clear to auscultation bilaterally, rales on the left, no wheezes and diminished lung sounds Cardio Rate: regular rate Rhythm: regular rhythm Heart sounds: S1 normal heart sound present and S2 normal heart sound present GI Palpation (GI): Soft to palpation and nontender Auscultation: normal bowel sounds General: Yes no CVA tenderness Back/Spine/Pelvis Back: no CVA tenderness Skin General skin exam: rashes and/or lesions noted Neuro Cranial nerves: Yes Equal, round and reactive pupils present Assessment & Plan Assessment & Plan (1) FRANCESCA (obstructive sleep apnea): Code(s): G47.33 - Obstructive sleep apnea (adult) (pediatric) Category: Medical (2) Dyspnea on exertion: Code(s): R06.00 - Dyspnea, unspecified Category: Medical (3) Pulmonary nodules: Code(s): R91.8 - Other nonspecific abnormal finding of lung field Category: Medical (4) GERD (gastroesophageal reflux disease): Code(s): K21.9 - Gastro-esophageal reflux disease without esophagitis Category: Medical Qualifiers: Esophagitis presence: without esophagitis Qualified Code(s): K21.9 - Gastro-esophageal reflux disease without esophagitis Plan start zpack Continue short-acting beta agonist as needed (xopenex) restart QVAR singulair Reflux diet Positional therapy avoiding sleeping back. pre op. ok to proceed with cystoscopy/ surgery follow-up in 6 months Medications: New beclomethasone dipropionate 80 mcg/actuation (Qvar RediHaler) 1 inh inhalation BID 30 days 10.6 grams 11RF levalbuterol tartrate 45 mcg/actuation 2 puffs inhalation Q4H PRN 15 ea 11RF for wheezing azithromycin 500 mg PO DAILY 5 days 5 tabs 0RF Changed From montelukast 10 mg PO DAILY 90 tabs 0RF To montelukast 10 mg PO DAILY 90 days 90 tabs 3RF Coding Level of Care Code Est Pt Level 4 (33071) Diagnoses FRANCESCA (obstructive sleep apnea) G47.33 Dyspnea on exertion R06.00 Pulmonary nodules R91.8 Gastroesophageal reflux disease without esophagitis K21.9 Esophagitis presence: without esophagitis Time Spent (min) 16
== END 2023-08-13 09:00 | disposition home or self-care (01) ==
PROVIDERS: PCP Nurse Practitioner Family; Visit Provider Hospitalist
DX: G47.33 Obstructive sleep apnea (adult) (pediatric) (principal); R06.00 Dyspnea, unspecified; R91.8 Other nonspecific abnormal finding of lung field; K21.9 Gastro-esophageal reflux disease without esophagitis
CPT/HCPCS: 99214

== ENCOUNTER → 2023-08-13 08:11 | Outpatient (BNVA) | payer MEDICARE, SELFPAY | PROVIDERS: PCP Nurse Practitioner Family; Visit Provider Hospitalist | DX: M79.641 Pain in right hand (principal); M25.641 Stiffness of right hand, not elsewhere classified; G56.01 Carpal tunnel syndrome, right upper limb; G56.21 Lesion of ulnar nerve, right upper limb; M18.11 Unilateral primary osteoarthritis of first carpometacarpal joint, right hand; R06.00 Dyspnea, unspecified; R91.8 Other nonspecific abnormal finding of lung field; G47.33 Obstructive sleep apnea (adult) (pediatric); K21.9 Gastro-esophageal reflux disease without esophagitis | CPT/HCPCS: 99212 ==

== ENCOUNTER 2023-08-13 10:33 | Outpatient (AMB) | payer MEDICARE, SELFPAY ==
--- NOTE | 2023-08-13 10:35 | A.OFFVIS_ITS ---
Intake Visit Reasons: OV-EMG Right hand review Intake Note: Adali is a 73 year old 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 female who presents today for a EMG review of her right hand. Printed the results. She states that OT is giving her mild relief. Patient informed me that they found a tumor in her bladder and she want to take care of that first before thing about surgery. Allergies Empapie-JPM-BeB Reductase Inhibitor [BPRHAER-YNB-HIS REDUCTASE INHIBITOR] Allergy (Severe, Verified 08/13/23 10:42) JOINT PAIN amlodipine [AMLODIPINE] Allergy (Intermediate, Verified 08/13/23 10:42) PALIPITATIONS baclofen [BACLOFEN] Allergy (Intermediate, Verified 08/13/23 10:42) LETHARGY Beta-Blockers (Beta-Adrenergic Bloc Allergy (Intermediate, Verified 08/13/23 10:42) BRADYCARDIA budesonide [From SYMBICORT] Allergy (Intermediate, Verified 08/13/23 10:42) HOARSENESS Chocolate Allergy (Intermediate, Verified 08/13/23 10:42) Itching ezetimibe [From ZETIA] Allergy (Intermediate, Verified 08/13/23 10:42) JOINT PAIN, ELEVATED CPK ibandronate sodium [From BONIVA] Allergy (Intermediate, Verified 08/13/23 10:42) CHEST PAIN latex [LATEX] Allergy (Intermediate, Verified 08/13/23 10:42) RASH-SENSITIVITY lisinopril [LISINOPRIL] Allergy (Intermediate, Verified 08/13/23 10:42) COUGH, really bad cough, cough meloxicam [From MOBIC] Allergy (Intermediate, Verified 08/13/23 10:42) GI UPSET mometasone furoate [From DULERA] Allergy (Intermediate, Verified 08/13/23 10:42) COUGH Penicillins [PENICILLINS] Allergy (Intermediate, Verified 08/13/23 10:42) RASH pregabalin [From LYRICA] Allergy (Intermediate, Verified 08/13/23 10:42) RASH,BLURRED VISION raloxifene [From EVISTA] Allergy (Intermediate, Verified 08/13/23 10:42) GERD sertraline [From ZOLOFT] Allergy (Intermediate, Verified 08/13/23 10:42) SKIN CRAWLING spironolactone [SPIRONOLACTONE] Allergy (Intermediate, Verified 08/13/23 10:42) RASH, ?? psoriasis strawberry [STRAWBERRY] Allergy (Intermediate, Verified 08/13/23 10:42) ITCHING tiotropium [From SPIRIVA WITH HANDIHALER] Allergy (Intermediate, Verified 08/13/23 10:42) RAW THROAT adhesive [ADHESIVE] Allergy (Unknown, Verified 08/13/23 10:42) RASH Atrovent Allergy (Unknown, Verified 08/13/23 10:42) Unknown dexlansoprazole [From DEXILANT] Allergy (Unknown, Verified 08/13/23 10:42) UNKNOWN doxycycline [DOXYCYCLINE] Allergy (Unknown, Verified 08/13/23 10:42) SEVERE NOYOLA, HEARTBURN Doxycycline Hyclate Allergy (Unknown, Verified 08/13/23 10:42) headache esomeprazole [Nexium] Allergy (Unknown, Verified 08/13/23 10:42) Unknown fluticasone [From ADVAIR DISKUS] Allergy (Unknown, Verified 08/13/23 10:42) HTN gabapentin [From NEURONTIN] Allergy (Unknown, Verified 08/13/23 10:42) THROAT TIGHTNESS glucosamine Allergy (Unknown, Verified 08/13/23 10:42) Unknown metoclopramide [From REGLAN] Allergy (Unknown, Verified 08/13/23 10:42) LETHARGY monosodium glutamate [MSG] Allergy (Unknown, Verified 08/13/23 10:42) HEADACHE naproxen [From ALEVE] Allergy (Unknown, Verified 08/13/23 10:42) FLUSH niacin Allergy (Unknown, Verified 08/13/23 10:42) Unknown omeprazole Allergy (Unknown, Verified 08/13/23 10:42) Unknown risedronate sodium [From ACTONEL] Allergy (Unknown, Verified 08/13/23 10:42) UNKNOWN rofecoxib [From Vioxx] Allergy (Unknown, Verified 08/13/23 10:42) ankle swelling salmeterol [From ADVAIR DISKUS] Allergy (Unknown, Verified 08/13/23 10:42) HTN scallops [SCALLOPS] Allergy (Unknown, Verified 08/13/23 10:42) NAUSEA & VOMITING tramadol [TRAMADOL] Allergy (Unknown, Verified 08/13/23 10:42) THROAT TIGHTNESS verapamil [VERAPAMIL] Allergy (Unknown, Verified 08/13/23 10:42) IRREGULAR HEARTBEAT lifitegrast [From Xiidra] Allergy (Verified 08/13/23 10:42) blurred vision, headache, eye swelling cyclosporine [From Cequa] Adverse Reaction (Intermediate, Verified 08/13/23 10:42) Swelling fluticasone furoate [From Trelegy Ellipta] Adverse Reaction (Unknown, Verified 08/13/23 10:42) Uknown umeclidinium [From Trelegy Ellipta] Adverse Reaction (Unknown, Verified 08/13/23 10:42) Uknown vilanterol [From Trelegy Ellipta] Adverse Reaction (Unknown, Verified 08/13/23 10:42) Uknown naproxen Allergy (Mild, Uncoded 08/13/23 08:33) rash Sulindac Adverse Reaction (Intermediate, Uncoded 08/13/23 08:33) Nausea HPI HPI OV-EMG Right hand review: Details: Adali is a 73 year old 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 woman who returns for a NCS review of her right hand numbness. She continues to complain of pain, weakness, and numbness in her right hand, primarily her ring & small fingers. She had a Hematoma in her right hand from an IV on 02/05/23 during an EGD. She says the Hematoma resolved but since she has had pain radiating from these fingers into her wrist, along with tingling & weakness. She has intermittent but daily numbness in the median nerve distribution and numbness to the tip of the small finger. She denies any numbness in the ring finger. She has been using velcro Chuy-tape to hold her ring & small fingers together during the day with activities, which she finds helpful. She has been attending OT hand therapy and says she feels mild improvement in her ROM from this. She reports worsening pain with OT therapy exercises, particularly a shooting pain down to her elbow with tendon gliding exercises She reports being recently diagnosed with bladder cancer, and has plans to have a tumor excision done on 08/19/23. She does not want to consider hand surgery until this has been dealt with. She has a Hx of a right middle & ring finger trigger release by Dr. Fry at [facility]. She also reports a hx of a medial epicondyle debridement by Dr. Fry as well, she is unsure if she had a cubital tunnel release that that time, but does not have a copy of the OP note. 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 [facility] Medical History (Updated 08/13/23 @ 11:16 by Keyon Manzo) History of trigger finger Right groin pain Cervical radiculitis Chronic sinusitis COVID-19 vaccine administered Trigger finger GERD (gastroesophageal reflux disease) FRANCESCA (obstructive sleep apnea) CAD (coronary artery disease) History of primary hyperparathyroidism Non-toxic multinodular goiter Osteoporosis Pulmonary nodules H/O gastroesophageal reflux (GERD) HLD (hyperlipidemia) HTN (hypertension) COPD (chronic obstructive pulmonary disease) Asthma History of aneurysm Migraine Depression PTSD (post-traumatic stress disorder) History of panic attacks Right inguinal hernia Anxiety Umbilical pain Edema Dizziness History of deviated nasal septum Medial epicondylitis of left elbow Fusion of spine, cervical region Surgical History (Updated 07/25/23 @ 10:34 by CURRY Nuno) Hx of cystoscopy H/O cervical spine surgery Hx of hand surgery Hx of right inguinal hernia repair History of hernia repair Hx of colonoscopy History of esophagogastroduodenoscopy (EGD) S/P repair of paraesophageal hernia H/O decompression of ulnar nerve Status post ablation of incompetent vein using laser History of cardiac catheterization History of eyelid surgery History of appendectomy History of parathyroidectomy History of cholecystectomy Hx of cataract surgery Hx of shoulder surgery S/P cubital tunnel release S/P arthroscopic surgery of right knee History of lumpectomy of both breasts History of hysterectomy Hx of adenoidectomy Hx of tonsillectomy Hx of eye surgery Family History Father Liver cancer Psoriasis Cancer Mental health disorder Mother Cervical cancer Ovarian cancer Heart attack Substance use disorder Social History Household Members: Children and None Housing: House Alcohol intake: current Alcohol intake frequency: does not drink Patient Tobacco Use Status: Former Tobacco user Tobacco use type: Cigarette e-Cigarette/Vaping Use: Never Used Second Hand Smoke Exposure: No service: No Current occupational status: employed 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 Decreased sensation in the ulnar nerve distribution today in clinic No numbness to the dorsal ulnar aspect of her hand No thenar or intrinsic wasting Good APB muscle belly firing and good finger cross Vascular: Cap refill brisk ROM: Patient holding the small finger in abduction, however she can actively adduct her small finger to the ring finger. She can make a nice fist and extend all her digits\ She has a Wartenberg sign, but now can actively bring the small finger into adduction against the ring finger Tenderness over the dorsal ulnar aspect of the hand Tender over the DRUJ Tender over the dorsal aspect of the ulnocarpal joint Nerve Conduction Study: Right-side only IMPRESSION: 1. [id number] right ulnar neuropathy in wrist. 2. Mild right median neuropathy across carpal tunnel. Beka Frost MD 07/29/2023 Radiographs: 3 views of the right hand from 07/15/23 were reviewed by me today in clinic. They show no fractures or dislocations. She has some basal joint osteoarthritis. No significant radiographic abnormalities involving the 4th or 5th rays from the wrist joint out to the digits. Psych Appearance: grossly normal Affect: normal affect Attitude: cooperative Assessment & Plan Assessment & Plan (1) Hand pain, right: Code(s): M79.641 - Pain in right hand Category: Medical (2) Stiffness of right hand joint: Code(s): M25.641 - Stiffness of right hand, not elsewhere classified Category: Medical (3) Carpal tunnel syndrome of right wrist: Code(s): G56.01 - Carpal tunnel syndrome, right upper limb Category: Medical (4) Cubital tunnel syndrome on right: Code(s): G56.21 - Lesion of ulnar nerve, right upper limb Category: Medical (5) Localized primary osteoarthritis of carpometacarpal joint of right thumb: Code(s): M18.11 - Unilateral primary osteoarthritis of first carpometacarpal joint, right hand Category: Medical Plan Assessment & Plan: 1. Right carpal tunnel syndrome, mild Symptoms intermittent, but daily, worse at night 2. Right Cubital tunnel syndrome, mild-moderate Note, ulnar neuropathy seen at the wrist on NCS done on 07/29/23 Symptoms intermittent, but daily, primarily affecting the small fingertip I educated her about these conditions I discussed operative and non-operative treatment options The patient would like to proceed with surgery. However she is undergoing surgery for her bladder cancer on 08/19/23 and does not want to consider surgery until she has recovered from this The risks and benefits of operative treatment were discussed with the patient and the patient wishes to proceed with surgery. These risks include, but are not limited to risk of damage to blood vessels, nerves, tendons, infection, recurrence, incomplete relief of preoperative symptoms, persistent pain, possible need for further surgery and the risks associated with regional blocks and anesthesia. The plan is to take the patient to the operating room sometime in the next few months for the following procedures: 1. Right carpal tunnel release, 2. Right ulnar nerve release at the wrist, under general All of the preoperative paperwork including the consent was reviewed today. All the patient's questions were answered. Surgery pending bladder biopsy results. We may need to delay operative treatment if she requires urgent chemotherapy. She denies Diabetes, blood thinners, lung, kidney issues She has asthma, CAD, and a tiny aneurysm which she manages with Aspirin. She says these are all well-managed Note: This patient appears to have a fairly long history with Dr. Fry. She is S/P right middle and ring finger trigger fingers. She is also reportedly S/P a right medial epicondylar debridement. It is unclear whether not she had a cubital tunnel release or transposition, though probably not. 3. Right ulnar-sided hand pain Appears secondary to IV infiltration and hematoma DOI: 02/06/24 Recovery took 4+ weeks, per patient I educated her about these conditions I discussed activity modification, I recommend she work on ROM exercises at home She should continue to work with OT hand therapy on ROM, desensitization, and normalizing hand function Good function of EDC tendons and wrist extensors at this time, and no pain with testing of these tendons against resistance. 4. Right basal joint osteoarthritis I educated her about this condition I discussed treatment options, including possible injections I discussed activity modification, they should limit or avoid any heavy or repetitive pinching or gripping activities Please note that greater than 40 minutes was spent with this patient going over the history, evaluating the patient and radiographs, formulating possible treatment options, discussing them with the patient, and documenting the visit. Scribed for Marisol Cagle MD by Keyon Manzo veterinary medical officer, on 08/13/23 at 10:55 AM, EST. Scribe Plan - Not visible on output: Scribed for Marisol Cagle MD by lisa Oneill scribe, on [ ] at [ ], EST. Coding Level of Care Code Est Pt Level 4 (39672) Diagnoses Hand pain, right M79.641 Stiffness of right hand joint M25.641 Carpal tunnel syndrome of right wrist G56.01 Cubital tunnel syndrome on right G56.21 Localized primary osteoarthritis of carpometacarpal joint of right thumb M18.11
== END 2023-08-13 11:43 | disposition home or self-care (01) ==
PROVIDERS: PCP Nurse Practitioner Family; Visit Provider Orthopaedic Surgery
DX: G56.01 Carpal tunnel syndrome, right upper limb (principal); G56.21 Lesion of ulnar nerve, right upper limb; M79.641 Pain in right hand; M25.641 Stiffness of right hand, not elsewhere classified; M18.11 Unilateral primary osteoarthritis of first carpometacarpal joint, right hand
CPT/HCPCS: 99215

== ENCOUNTER 2023-08-19 08:15 | Day surgery (SDC) | payer MEDICARE, SELFPAY ==
--- NOTE | 2023-08-18 11:57 | P.CONAN_ITS ---
Documented by User: Kiana Brito NP 08/18/23 12:03 HPI - Anesthesia Eval Consult details Narrative: 73yo F for TUR Bladder Tumor,with fulguation and biopsy s/p EGD 05/2023 with MAC [place] [facility] [place]. Last office visit 08/2023. Stable and ok for uro procedure. [place] [facility] [place] for CAD with diffuse disease as well as vascular atherosclerosis in the abdominal aorta. Nonobstructive CAD. Last office visit 04/2023, stable and ok for 1 year routine f/u. Multiple allergies PMFSH Active Problems Active Problems: All Active Problems Localized primary osteoarthritis of carpometacarpal joint of right thumb (Acute) Cubital tunnel syndrome on right (Acute) Carpal tunnel syndrome of right wrist (Acute) Bladder wall thickening (Acute) Bladder tumor (Acute) Stiffness of right hand joint (Acute) Numbness and tingling in right hand (Acute) Panic (Acute) Chronic post-traumatic stress disorder (PTSD) (Acute) Hematuria (Acute) History of nicotine use (Acute) Atypical pneumonia (Acute) Urinary urgency (Acute) Myasthenia gravis (Acute) Choking (Acute) Postmenopausal (Acute) Physical exam (Acute) Cervical myofascial pain syndrome (Acute) Ankle pain, right (Acute) Hand pain, right (Acute) Fall (on) (from) other stairs and steps, initial encounter (Acute) Allergies (Acute) Sprain of right ankle (Acute) PVCs (premature ventricular contractions) (Acute) Sinusitis (Acute) Greater trochanteric pain syndrome (Acute) Sacroiliac joint pain (Acute) White coat syndrome with diagnosis of hypertension (Acute) Chronic left sacroiliac joint pain (Acute) Lumbar degenerative disc disease (Acute) Lumbar spondylosis (Acute) Lumbar post-laminectomy syndrome (Acute) Right hip pain (Acute) Microscopic hematuria (Acute) Elevated alkaline phosphatase level (Acute) Adverse reaction to COVID-19 vaccine (Acute) Fatigue (Acute) Nausea & vomiting (Acute) Occipital neuralgia of left side (Acute) Failed back syndrome of cervical spine (Acute) Cervical spondylosis (Acute) Muscle spasm (Acute) Right trigger finger (Acute) Urinary tract infection (Acute) Upper respiratory tract infection (Acute) Cervical stenosis of spine (Acute) Varicose veins of left lower extremity with inflammation (Acute) Allergies (Acute) Fatigue (Acute) Urinary frequency (Acute) Arthralgia (Acute) Varicose veins of right lower extremity with inflammation (Acute) Headache (Acute) Osteoporosis (Acute) Bronchiolitis (Acute) Dyspnea on exertion (Acute) Atypical chest pain (Acute) Hyperlipidemia (Acute) Screening for breast cancer (Acute) Rectal urgency (Acute) Inguinal hernia (Acute) HTN (hypertension) (Acute) Right groin pain (Acute) Cervical radiculitis (Acute) Chronic sinusitis (Acute) GERD (gastroesophageal reflux disease) (Acute) FRANCESCA (obstructive sleep apnea) (Acute) CAD (coronary artery disease) (Acute) History of primary hyperparathyroidism (Acute) Non-toxic multinodular goiter (Acute) Osteoporosis (Acute) Pulmonary nodules (Acute) H/O gastroesophageal reflux (GERD) (Acute) Right inguinal hernia (Acute) Anxiety (Acute) Edema (Acute) Dizziness (Acute) Past Medical History Medical History (Updated 08/13/23 @ 11:16 by Keyon Manzo) History of trigger finger Right groin pain Cervical radiculitis Chronic sinusitis COVID-19 vaccine administered Trigger finger GERD (gastroesophageal reflux disease) FRANCESCA (obstructive sleep apnea) CAD (coronary artery disease) History of primary hyperparathyroidism Non-toxic multinodular goiter Osteoporosis Pulmonary nodules H/O gastroesophageal reflux (GERD) HLD (hyperlipidemia) HTN (hypertension) COPD (chronic obstructive pulmonary disease) Asthma History of aneurysm Migraine Depression PTSD (post-traumatic stress disorder) History of panic attacks Right inguinal hernia Anxiety Umbilical pain Edema Dizziness History of deviated nasal septum Medial epicondylitis of left elbow Fusion of spine, cervical region Family History Family History Father Liver cancer Psoriasis Cancer Mental health disorder Mother Cervical cancer Ovarian cancer Heart attack Substance use disorder Family history of problems with anesthesia: No Surgical History Surgical History (Updated 07/25/23 @ 10:34 by CURRY Nuno) Hx of cystoscopy H/O cervical spine surgery Hx of hand surgery Hx of right inguinal hernia repair History of hernia repair Hx of colonoscopy History of esophagogastroduodenoscopy (EGD) S/P repair of paraesophageal hernia H/O decompression of ulnar nerve Status post ablation of incompetent vein using laser History of cardiac catheterization History of eyelid surgery History of appendectomy History of parathyroidectomy History of cholecystectomy Hx of cataract surgery Hx of shoulder surgery S/P cubital tunnel release S/P arthroscopic surgery of right knee History of lumpectomy of both breasts History of hysterectomy Hx of adenoidectomy Hx of tonsillectomy Hx of eye surgery History of Problems with Anesthesia: No Social History Social History Household Members: Children and None Housing: House Alcohol intake: current Alcohol intake frequency: does not drink Patient Tobacco Use Status: Former Tobacco user Tobacco use type: Cigarette e-Cigarette/Vaping Use: Never Used Second Hand Smoke Exposure: No Use of substances other than those prescribed or required for medical reasons: No Are you DNR?: No Advance Directives: No Advance Directives Information Provided: Yes service: No Current occupational status: employed 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, 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 Cognitive needs: No Hearing needs: No Vision needs: No Meds Allergies Allergy/AdvReac Type Severity Reaction Status Date / Time dexlansoprazole Allergy Severe dizziness, Verified 08/19/23 10:11 [From DEXILANT] change in HR risedronate sodium Allergy Severe chest Verified 08/19/23 10:11 [From ACTONEL] discomfort [id number] Reductase Allergy Severe JOINT PAIN Verified 08/19/23 10:11 Inhibitor [[id number] REDUCTASE INHIBITOR] tramadol [TRAMADOL] Allergy Severe THROAT Verified 08/19/23 10:11 TIGHTNESS amlodipine [AMLODIPINE] Allergy Intermediate PALIPITATIO Verified 08/19/23 10:11 NS Atrovent Allergy Intermediate Cough Verified 08/19/23 10:11 baclofen [BACLOFEN] Allergy Intermediate LETHARGY Verified 08/19/23 10:11 Beta-Blockers Allergy Intermediate BRADYCARDIA Verified 08/19/23 10:11 (Beta-Adrenergic Bloc budesonide [From SYMBICORT] Allergy Intermediate HOARSENESS Verified 08/19/23 10:11 Chocolate Allergy Intermediate GERD Verified 08/19/23 10:11 ezetimibe [From ZETIA] Allergy Intermediate JOINT Verified 08/19/23 10:11 PAIN, ELEVATED CPK fluticasone Allergy Intermediate HTN Verified 08/19/23 10:11 [From ADVAIR DISKUS] glucosamine Allergy Intermediate LE edema Verified 08/19/23 10:11 ibandronate sodium Allergy Intermediate CHEST PAIN Verified 08/19/23 10:11 [From BONIVA] latex [LATEX] Allergy Intermediate RASH-SENSIT Verified 08/19/23 10:11 IVITY lisinopril [LISINOPRIL] Allergy Intermediate COUGH, Verified 08/19/23 10:11 really bad cough meloxicam [From MOBIC] Allergy Intermediate GI UPSET Verified 08/19/23 10:11 mometasone furoate Allergy Intermediate COUGH Verified 08/19/23 10:11 [From DULERA] niacin Allergy Intermediate Flushing Verified 08/19/23 10:11 Penicillins [PENICILLINS] Allergy Intermediate RASH Verified 08/19/23 10:11 pregabalin [From LYRICA] Allergy Intermediate GERD flare Verified 08/19/23 10:11 up raloxifene [From EVISTA] Allergy Intermediate GERD Verified 08/19/23 10:11 rofecoxib [From Vioxx] Allergy Intermediate ankle Verified 08/19/23 10:11 swelling salmeterol Allergy Intermediate HTN Verified 08/19/23 10:11 [From ADVAIR DISKUS] scallops [SCALLOPS] Allergy Intermediate NAUSEA & Verified 08/19/23 10:11 VOMITING sertraline [From ZOLOFT] Allergy Intermediate SKIN Verified 08/19/23 10:11 CRAWLING spironolactone Allergy Intermediate RASH, ?? Verified 08/19/23 10:11 [SPIRONOLACTONE] psoriasis strawberry [STRAWBERRY] Allergy Intermediate ITCHING Verified 08/19/23 10:11 tiotropium Allergy Intermediate RAW Verified 08/19/23 10:11 [From SPIRIVA WITH THROAT, HANDIHALER] pharyngitis verapamil [VERAPAMIL] Allergy Intermediate IRREGULAR Verified 08/19/23 10:11 HEARTBEAT esomeprazole [Nexium] Allergy Mild did not Verified 08/19/23 10:11 resolve GERD naproxen [From ALEVE] Allergy Mild FLUSH Verified 08/19/23 10:11 omeprazole Allergy Mild did not Verified 08/19/23 10:11 resolve GERD adhesive [ADHESIVE] Allergy Unknown RASH Verified 08/19/23 10:11 doxycycline [DOXYCYCLINE] Allergy Unknown SEVERE NOYOLA, Verified 08/19/23 10:11 HEARTBURN, joint pain gabapentin [From NEURONTIN] Allergy Unknown leg Verified 08/19/23 10:11 swelling, SOB metoclopramide [From REGLAN] Allergy Unknown LETHARGY Verified 08/19/23 10:11 monosodium glutamate [MSG] Allergy Unknown HEADACHE, Verified 08/19/23 10:11 increased HR lifitegrast [From Xiidra] Allergy blurred Verified 08/19/23 10:11 vision, headache, eye swelling metoprolol AdvReac Severe Severe Verified 08/19/23 10:11 bradycardia alendronate sodium AdvReac Intermediate Joint Pain Verified 08/19/23 10:11 [From Fosamax] amitriptyline AdvReac Intermediate Agitated Verified 08/19/23 10:11 cyclosporine [From Cequa] AdvReac Intermediate Eye Verified 08/19/23 10:11 Swelling fluticasone furoate AdvReac Intermediate asthma Verified 08/19/23 10:11 [From Trelegy Ellipta] exacerbation perfluorohexyloctane AdvReac Intermediate Eye Verified 08/19/23 10:11 [From Miebo] Swelling tobramycin [From Tobrex] AdvReac Intermediate Eye Verified 08/19/23 10:11 Swelling umeclidinium AdvReac Intermediate asthma Verified 08/19/23 10:11 [From Trelegy Ellipta] exacerbation vilanterol AdvReac Intermediate asthma Verified 08/19/23 10:11 [From Trelegy Ellipta] exacerbation azelastine AdvReac Mild Gastrointestinal Verified 08/19/23 10:11 Upset hi AdvReac Intermediate Itchy Eyes Uncoded 08/19/23 10:11 Sulindac AdvReac Intermediate Nausea, Uncoded 08/19/23 10:11 pain Home Medications ?Medication ?Instructions ?Recorded ?Confirmed ?Last Taken ?Type Bifidobacterium infantis 4 mg 4 mg PO DAILY 11/17/19 08/19/23 Unknown History capsule (Align) aspirin 81 mg tablet,delayed 81 mg PO DAILY 11/17/19 08/19/23 05/14/23 History release (Adult Aspirin Regimen) betamethasone dipropionate 0.05 % 1 applic topical DIRECTED 11/17/19 08/19/23 Unknown History topical cream cyclosporine 0.05 % eye drops in a 1 drp ophthalmic (eye) Q12H 11/17/19 08/19/23 08/19/23 06:30 History dropperette (Restasis) docusate sodium 100 mg capsule 100 mg PO BID 11/17/19 08/19/23 Unknown History (Colace) magnesium oxide 500 mg PO DAILY 11/17/19 08/19/23 Unknown History cetirizine 10 mg tablet (Zyrtec) 10 mg PO DAILY PRN Allergy Symptoms 01/16/22 08/19/23 Unknown History prednisolone acetate 1 % eye 1 drp ophthalmic (eye) QID 12/25/22 08/19/23 08/19/23 06:30 History drops,suspension dextran 70-hypromellose (PF) 0.1 1 drp ophthalmic (eye) BEDTIME 03/19/23 08/19/23 Unknown History %-0.3 % eye drops in a dropperette (Artificial Tears (PF)) Exam Pertinent Lab Results Pertinent Lab Results: Laboratory Tests 03/19/23 06/18/23 06/18/23 09:10 08:08 08:18 WBC 7.3 Hgb 13.7 Hct 41.5 Plt Count 309 Sodium 140 Potassium 3.8 Chloride 102 Carbon Dioxide 28 BUN 17 H Creatinine 0.94 Narrative Narrative: EKG 04/2023 normal sinus rhythm with poor R-wave progression ECHO 2020 Conclusions: - The left ventricular systolic function is normal. The visually estimated ejection fraction is between 65-70%. - No obvious valvular pathology seen on this study. - (re-signed 05/31 due to technical issues) XR chest 2V 04/2023 IMPRESSION: No acute cardiopulmonary disease. Assessment and Plan Assessment Anesthesia Assessment: Chart Reviewed Final Anesthetic Review Family History of Problems with Anesthesia: No History of Problems with Anesthesia: No Documented by User: Aron Parra MD 08/19/23 10:31 [facility] Past Medical History Medical History (Updated 08/13/23 @ 11:16 by Keyon Manzo) History of trigger finger Right groin pain Cervical radiculitis Chronic sinusitis COVID-19 vaccine administered Trigger finger GERD (gastroesophageal reflux disease) FRANCESCA (obstructive sleep apnea) CAD (coronary artery disease) History of primary hyperparathyroidism Non-toxic multinodular goiter Osteoporosis Pulmonary nodules H/O gastroesophageal reflux (GERD) HLD (hyperlipidemia) HTN (hypertension) COPD (chronic obstructive pulmonary disease) Asthma History of aneurysm Migraine Depression PTSD (post-traumatic stress disorder) History of panic attacks Right inguinal hernia Anxiety Umbilical pain Edema Dizziness History of deviated nasal septum Medial epicondylitis of left elbow Fusion of spine, cervical region Family History Family History Father Liver cancer Psoriasis Cancer Mental health disorder Mother Cervical cancer Ovarian cancer Heart attack Substance use disorder Surgical History Surgical History (Updated 07/25/23 @ 10:34 by CURRY Nuno) Hx of cystoscopy H/O cervical spine surgery Hx of hand surgery Hx of right inguinal hernia repair History of hernia repair Hx of colonoscopy History of esophagogastroduodenoscopy (EGD) S/P repair of paraesophageal hernia H/O decompression of ulnar nerve Status post ablation of incompetent vein using laser History of cardiac catheterization History of eyelid surgery History of appendectomy History of parathyroidectomy History of cholecystectomy Hx of cataract surgery Hx of shoulder surgery S/P cubital tunnel release S/P arthroscopic surgery of right knee History of lumpectomy of both breasts History of hysterectomy Hx of adenoidectomy Hx of tonsillectomy Hx of eye surgery Social History Social History Household Members: Children and None Housing: House Alcohol intake: current Alcohol intake frequency: does not drink Patient Tobacco Use Status: Former Tobacco user Tobacco use type: Cigarette e-Cigarette/Vaping Use: Never Used Second Hand Smoke Exposure: No Use of substances other than those prescribed or required for medical reasons: No Are you DNR?: No Advance Directives: No Advance Directives Information Provided: Yes service: No Current occupational status: employed 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, 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 Cognitive needs: No Hearing needs: No Vision needs: No Meds Allergies Allergy/AdvReac Type Severity Reaction Status Date / Time dexlansoprazole Allergy Severe dizziness, Verified 08/19/23 10:11 [From DEXILANT] change in HR risedronate sodium Allergy Severe chest Verified 08/19/23 10:11 [From ACTONEL] discomfort [id number] Reductase Allergy Severe JOINT PAIN Verified 08/19/23 10:11 Inhibitor [[id number] REDUCTASE INHIBITOR] tramadol [TRAMADOL] Allergy Severe THROAT Verified 08/19/23 10:11 TIGHTNESS amlodipine [AMLODIPINE] Allergy Intermediate PALIPITATIO Verified 08/19/23 10:11 NS Atrovent Allergy Intermediate Cough Verified 08/19/23 10:11 baclofen [BACLOFEN] Allergy Intermediate LETHARGY Verified 08/19/23 10:11 Beta-Blockers Allergy Intermediate BRADYCARDIA Verified 08/19/23 10:11 (Beta-Adrenergic Bloc budesonide [From SYMBICORT] Allergy Intermediate HOARSENESS Verified 08/19/23 10:11 Chocolate Allergy Intermediate GERD Verified 08/19/23 10:11 ezetimibe [From ZETIA] Allergy Intermediate JOINT Verified 08/19/23 10:11 PAIN, ELEVATED CPK fluticasone Allergy Intermediate HTN Verified 08/19/23 10:11 [From ADVAIR DISKUS] glucosamine Allergy Intermediate LE edema Verified 08/19/23 10:11 ibandronate sodium Allergy Intermediate CHEST PAIN Verified 08/19/23 10:11 [From BONIVA] latex [LATEX] Allergy Intermediate RASH-SENSIT Verified 08/19/23 10:11 IVITY lisinopril [LISINOPRIL] Allergy Intermediate COUGH, Verified 08/19/23 10:11 really bad cough meloxicam [From MOBIC] Allergy Intermediate GI UPSET Verified 08/19/23 10:11 mometasone furoate Allergy Intermediate COUGH Verified 08/19/23 10:11 [From DULERA] niacin Allergy Intermediate Flushing Verified 08/19/23 10:11 Penicillins [PENICILLINS] Allergy Intermediate RASH Verified 08/19/23 10:11 pregabalin [From LYRICA] Allergy Intermediate GERD flare Verified 08/19/23 10:11 up raloxifene [From EVISTA] Allergy Intermediate GERD Verified 08/19/23 10:11 rofecoxib [From Vioxx] Allergy Intermediate ankle Verified 08/19/23 10:11 swelling salmeterol Allergy Intermediate HTN Verified 08/19/23 10:11 [From ADVAIR DISKUS] scallops [SCALLOPS] Allergy Intermediate NAUSEA & Verified 08/19/23 10:11 VOMITING sertraline [From ZOLOFT] Allergy Intermediate SKIN Verified 08/19/23 10:11 CRAWLING spironolactone Allergy Intermediate RASH, ?? Verified 08/19/23 10:11 [SPIRONOLACTONE] psoriasis strawberry [STRAWBERRY] Allergy Intermediate ITCHING Verified 08/19/23 10:11 tiotropium Allergy Intermediate RAW Verified 08/19/23 10:11 [From SPIRIVA WITH THROAT, HANDIHALER] pharyngitis verapamil [VERAPAMIL] Allergy Intermediate IRREGULAR Verified 08/19/23 10:11 HEARTBEAT esomeprazole [Nexium] Allergy Mild did not Verified 08/19/23 10:11 resolve GERD naproxen [From ALEVE] Allergy Mild FLUSH Verified 08/19/23 10:11 omeprazole Allergy Mild did not Verified 08/19/23 10:11 resolve GERD adhesive [ADHESIVE] Allergy Unknown RASH Verified 08/19/23 10:11 doxycycline [DOXYCYCLINE] Allergy Unknown SEVERE NOYOLA, Verified 08/19/23 10:11 HEARTBURN, joint pain gabapentin [From NEURONTIN] Allergy Unknown leg Verified 08/19/23 10:11 swelling, SOB metoclopramide [From REGLAN] Allergy Unknown LETHARGY Verified 08/19/23 10:11 monosodium glutamate [MSG] Allergy Unknown HEADACHE, Verified 08/19/23 10:11 increased HR lifitegrast [From Xiidra] Allergy blurred Verified 08/19/23 10:11 vision, headache, eye swelling metoprolol AdvReac Severe Severe Verified 08/19/23 10:11 bradycardia alendronate sodium AdvReac Intermediate Joint Pain Verified 08/19/23 10:11 [From Fosamax] amitriptyline AdvReac Intermediate Agitated Verified 08/19/23 10:11 cyclosporine [From Cequa] AdvReac Intermediate Eye Verified 08/19/23 10:11 Swelling fluticasone furoate AdvReac Intermediate asthma Verified 08/19/23 10:11 [From Trelegy Ellipta] exacerbation perfluorohexyloctane AdvReac Intermediate Eye Verified 08/19/23 10:11 [From Miebo] Swelling tobramycin [From Tobrex] AdvReac Intermediate Eye Verified 08/19/23 10:11 Swelling umeclidinium AdvReac Intermediate asthma Verified 08/19/23 10:11 [From Trelegy Ellipta] exacerbation vilanterol AdvReac Intermediate asthma Verified 08/19/23 10:11 [From Trelegy Ellipta] exacerbation azelastine AdvReac Mild Gastrointestinal Verified 08/19/23 10:11 Upset hi AdvReac Intermediate Itchy Eyes Uncoded 08/19/23 10:11 Sulindac AdvReac Intermediate Nausea, Uncoded 08/19/23 10:11 pain Home Medications ?Medication ?Instructions ?Recorded ?Confirmed ?Last Taken ?Type Bifidobacterium infantis 4 mg 4 mg PO DAILY 11/17/19 08/19/23 Unknown History capsule (Align) aspirin 81 mg tablet,delayed 81 mg PO DAILY 11/17/19 08/19/23 05/14/23 History release (Adult Aspirin Regimen) betamethasone dipropionate 0.05 % 1 applic topical DIRECTED 11/17/19 08/19/23 Unknown History topical cream cyclosporine 0.05 % eye drops in a 1 drp ophthalmic (eye) Q12H 11/17/19 08/19/23 08/19/23 06:30 History dropperette (Restasis) docusate sodium 100 mg capsule 100 mg PO BID 11/17/19 08/19/23 Unknown History (Colace) magnesium oxide 500 mg PO DAILY 11/17/19 08/19/23 Unknown History cetirizine 10 mg tablet (Zyrtec) 10 mg PO DAILY PRN Allergy Symptoms 01/16/22 08/19/23 Unknown History prednisolone acetate 1 % eye 1 drp ophthalmic (eye) QID 12/25/22 08/19/23 08/19/23 06:30 History drops,suspension dextran 70-hypromellose (PF) 0.1 1 drp ophthalmic (eye) BEDTIME 03/19/23 08/19/23 Unknown History %-0.3 % eye drops in a dropperette (Artificial Tears (PF)) Exam Narrative Narrative: jEKG 04/2023 normal sinus rhythm with poor R-wave progression ECHO 2020 Conclusions: - The left ventricular systolic function is normal. The visually estimated ejection fraction is between 65-70%. - No obvious valvular pathology seen on this study. - (re-signed 05/31 due to technical issues) XR chest 2V 04/2023 IMPRESSION: No acute cardiopulmonary disease. Airway Mallampati Class: I TM Dist: >3cm Neck ROM: Full Partial: Lower Assessment and Plan Assessment Anesthesia Assessment: Anesthesia Plan Discussed Final Anesthetic Review NPO: Yes ASA Class: III Final Preanesthetic Review: No Changes in Pt Med Stat, Meds/Allgs Chart R temo, Consent Obtained/Reviewed and Anes Risks/Benef Reviewed Patient Risk: Intermediate Procedure Risk: Low Anesthetic Plan Anesthetic Plan: GA Disposition: Standard PACU
[2023-08-19] VITALS (7 sets, daily range): BP systolic 108–165; BP diastolic 47–89; PULSE 55–73; RESP 15–16; TEMP 36.1–37.4; O2SAT 96–99; BMI 31.9
[2023-08-19] MEDS: Lactated Ringers 1,000 ML 100 ML IVCONT (09:20)
--- NOTE | 2023-08-19 10:39 | MHC.SHP ---
Pre-Procedural Eval Section A - 24 Hr Update-Section A only Date of Service: 08/19/23 The patient is an INPATIENT: No The patient has been examined within 24 hours of the surgical procedure. The History & Physical has been completed within 30 days and I have reviewed it.: Yes Section B - Complete if H&P > 30 days Chief Complaint: Neoplasm of unspecified behavior of bladder Allergies: Allergies Allergy/AdvReac Type Severity Reaction Status Date / Time dexlansoprazole Allergy Severe dizziness, Verified 08/19/23 10:11 [From DEXILANT] change in HR risedronate sodium Allergy Severe chest Verified 08/19/23 10:11 [From ACTONEL] discomfort Qsykata-AGP-DwJ Reductase Allergy Severe JOINT PAIN Verified 08/19/23 10:11 Inhibitor [[id number] REDUCTASE INHIBITOR] tramadol [TRAMADOL] Allergy Severe THROAT Verified 08/19/23 10:11 TIGHTNESS amlodipine [AMLODIPINE] Allergy Intermediate PALIPITATIO Verified 08/19/23 10:11 NS Atrovent Allergy Intermediate Cough Verified 08/19/23 10:11 baclofen [BACLOFEN] Allergy Intermediate LETHARGY Verified 08/19/23 10:11 Beta-Blockers Allergy Intermediate BRADYCARDIA Verified 08/19/23 10:11 (Beta-Adrenergic Bloc budesonide [From SYMBICORT] Allergy Intermediate HOARSENESS Verified 08/19/23 10:11 Chocolate Allergy Intermediate GERD Verified 08/19/23 10:11 ezetimibe [From ZETIA] Allergy Intermediate JOINT Verified 08/19/23 10:11 PAIN, ELEVATED CPK fluticasone Allergy Intermediate HTN Verified 08/19/23 10:11 [From ADVAIR DISKUS] glucosamine Allergy Intermediate LE edema Verified 08/19/23 10:11 ibandronate sodium Allergy Intermediate CHEST PAIN Verified 08/19/23 10:11 [From BONIVA] latex [LATEX] Allergy Intermediate RASH-SENSIT Verified 08/19/23 10:11 IVITY lisinopril [LISINOPRIL] Allergy Intermediate COUGH, Verified 08/19/23 10:11 really bad cough meloxicam [From MOBIC] Allergy Intermediate GI UPSET Verified 08/19/23 10:11 mometasone furoate Allergy Intermediate COUGH Verified 08/19/23 10:11 [From DULERA] niacin Allergy Intermediate Flushing Verified 08/19/23 10:11 Penicillins [PENICILLINS] Allergy Intermediate RASH Verified 08/19/23 10:11 pregabalin [From LYRICA] Allergy Intermediate GERD flare Verified 08/19/23 10:11 up raloxifene [From EVISTA] Allergy Intermediate GERD Verified 08/19/23 10:11 rofecoxib [From Vioxx] Allergy Intermediate ankle Verified 08/19/23 10:11 swelling salmeterol Allergy Intermediate HTN Verified 08/19/23 10:11 [From ADVAIR DISKUS] scallops [SCALLOPS] Allergy Intermediate NAUSEA & Verified 08/19/23 10:11 VOMITING sertraline [From ZOLOFT] Allergy Intermediate SKIN Verified 08/19/23 10:11 CRAWLING spironolactone Allergy Intermediate RASH, ?? Verified 08/19/23 10:11 [SPIRONOLACTONE] psoriasis strawberry [STRAWBERRY] Allergy Intermediate ITCHING Verified 08/19/23 10:11 tiotropium Allergy Intermediate RAW Verified 08/19/23 10:11 [From SPIRIVA WITH THROAT, HANDIHALER] pharyngitis verapamil [VERAPAMIL] Allergy Intermediate IRREGULAR Verified 08/19/23 10:11 HEARTBEAT esomeprazole [Nexium] Allergy Mild did not Verified 08/19/23 10:11 resolve GERD naproxen [From ALEVE] Allergy Mild FLUSH Verified 08/19/23 10:11 omeprazole Allergy Mild did not Verified 08/19/23 10:11 resolve GERD adhesive [ADHESIVE] Allergy Unknown RASH Verified 08/19/23 10:11 doxycycline [DOXYCYCLINE] Allergy Unknown SEVERE NOYOLA, Verified 08/19/23 10:11 HEARTBURN, joint pain gabapentin [From NEURONTIN] Allergy Unknown leg Verified 08/19/23 10:11 swelling, SOB metoclopramide [From REGLAN] Allergy Unknown LETHARGY Verified 08/19/23 10:11 monosodium glutamate [MSG] Allergy Unknown HEADACHE, Verified 08/19/23 10:11 increased HR lifitegrast [From Xiidra] Allergy blurred Verified 08/19/23 10:11 vision, headache, eye swelling metoprolol AdvReac Severe Severe Verified 08/19/23 10:11 bradycardia alendronate sodium AdvReac Intermediate Joint Pain Verified 08/19/23 10:11 [From Fosamax] amitriptyline AdvReac Intermediate Agitated Verified 08/19/23 10:11 cyclosporine [From Cequa] AdvReac Intermediate Eye Verified 08/19/23 10:11 Swelling fluticasone furoate AdvReac Intermediate asthma Verified 08/19/23 10:11 [From Trelegy Ellipta] exacerbation perfluorohexyloctane AdvReac Intermediate Eye Verified 08/19/23 10:11 [From Miebo] Swelling tobramycin [From Tobrex] AdvReac Intermediate Eye Verified 08/19/23 10:11 Swelling umeclidinium AdvReac Intermediate asthma Verified 08/19/23 10:11 [From Trelegy Ellipta] exacerbation vilanterol AdvReac Intermediate asthma Verified 08/19/23 10:11 [From Trelegy Ellipta] exacerbation azelastine AdvReac Mild Gastrointestinal Verified 08/19/23 10:11 Upset hi AdvReac Intermediate Itchy Eyes Uncoded 08/19/23 10:11 Sulindac AdvReac Intermediate Nausea, Uncoded 08/19/23 10:11 pain Plan Diagnosis/Plan: Unchanged I have reviewed the history and physical and performed a pertinent physical examination on my patient. No changes have occurred unless specified. cystoscopy transurethral resection bladder tumor, fulguration, bladder biopsies Time Spent With Patient Time: Total time managing care of this patient today ____ minutes.
--- NOTE | 2023-08-19 11:27 | W.PM.OPN ---
Operative Note Operative Note Date of Service: 08/19/23 Narrative: PREOP DIAGNOSIS: Bladder tumor POSTOP DIAGNOSIS: Bladder tumor PROCEDURE: CYSTOSCOPY TRANSURETHRAL RESECTION OF BLADDER TUMOR, FULGURATION Anesthesia: General Surgeon Dr. Saab Findings: 1-2 cm papillary lesion left lateral wall Details of procedure: The patient was brought into the operating room placed on the OR table in supine position. Levaquin 500 mg IV. General anesthesia was administered. The patient was repositioned into lithotomy position, prepped and draped in the usual sterile fashion. Time-out was done per protocol. 2 urojet placed. The 24 [place] resectoscope with obturator was passed transurethrally into the bladder. Visualization of the bladder noted 1-2 cm papillary lesion left lateral wall. No active bleeding noted. The cold cup biopsy and loop resectoscope was used to resect the bladder tumor, muscle was visualized without evidence of perforation, the loop was also used to fulgurate the base of the bladder tumor. Random bladder biopsies were performed posterior and right lateral wall. Once there was good hemostasis the resectoscope was removed. 2 % urojet placed. The patient was brought out of anesthesia and taken to recovery in stable condition. Complications: None Drains: none
[2023-08-19] MEDS: Phenazopyridine HCL 100 MG TABLET 200 MG PO (12:01)
== END 2023-08-19 12:56 | disposition home or self-care (01) ==
PROVIDERS: PCP Nurse Practitioner Family; Visit Provider Urology
PROC: 0TBB8ZZ Excision of Bladder, Via Natural or Artificial Opening Endoscopic (ICD-10-PCS; CPT 52234; principal; 2023-08-19 10:40)
DX: C67.2 Malignant neoplasm of lateral wall of bladder (principal); R31.29 Other microscopic hematuria; I10 Essential (primary) hypertension; I25.10 Atherosclerotic heart disease of native coronary artery without angina pectoris; J44.9 Chronic obstructive pulmonary disease, unspecified; R91.8 Other nonspecific abnormal finding of lung field; J32.9 Chronic sinusitis, unspecified; K21.9 Gastro-esophageal reflux disease without esophagitis; F43.10 Post-traumatic stress disorder, unspecified; G47.33 Obstructive sleep apnea (adult) (pediatric); M81.0 Age-related osteoporosis without current pathological fracture; E78.5 Hyperlipidemia, unspecified; Z79.82 Long term (current) use of aspirin; Z79.51 Long term (current) use of inhaled steroids; Z79.899 Other long term (current) drug therapy; Z88.0 Allergy status to penicillin; Z88.4 Allergy status to anesthetic agent; Z88.8 Allergy status to other drugs, medicaments and biological substances; Z91.040 Latex allergy status; L23.1 Allergic contact dermatitis due to adhesives; Z98.890 Other specified postprocedural states; Z66 Do not resuscitate; Z87.891 Personal history of nicotine dependence
CPT/HCPCS: 52234; 88305; 88307; 88342; J0690; J1100; J2250; J2405; J2704; J3010

== ENCOUNTER → 2023-08-19 08:15 | Outpatient (BNV) | payer MEDICARE, SELFPAY | PROVIDERS: PCP Nurse Practitioner Family; Visit Provider Urology | DX: D49.4 Neoplasm of unspecified behavior of bladder (principal) | CPT/HCPCS: 52234 ==

== ENCOUNTER 2023-08-27 09:27 | Outpatient (REF) | payer MEDICARE, SELFPAY ==
[2023-08-27 13:31] LABS: Appearance Urine Clear; Color Urine Dark Yellow; Glucose Urine UA Negative (Negative); Leukocyte Esterase Urine Negative (Negative); Nitrite Urine Positive (Negative); PH 6.5 (5.0-9.0); UMIC TRIGGER UA YES; Urine Blood Small (1+) (Negative); Urine Ketones Negative (Negative); Urine Protein Negative (Neg-Trace)
[2023-08-27 14:26] LABS: Bacteria Urine None Seen (None Seen); Hyaline Casts Urine 0-2 /LPF (0-2); RBC Urine 0-2 /HPF (0-2); Squamous Epithelial Cell Urine 0-2 /HPF (0-2); WBC Urine 0-5 /HPF (0-5)
== END 2023-08-27 09:28 | disposition home or self-care (01) ==
LOC: HO.HMGCLNP 09:27
PROVIDERS: PCP Nurse Practitioner Family; Visit Provider Urology
DX: R31.9 Hematuria, unspecified (principal); D49.4 Neoplasm of unspecified behavior of bladder; R39.15 Urgency of urination
CPT/HCPCS: 81001; 87086

== ENCOUNTER 2023-08-29 08:00 | Outpatient (RCR) | payer MEDICARE, SELFPAY ==
--- NOTE | 2023-07-24 14:50 | MHC.OT.EP ---
[address] [phone] Occupational Therapy Plan of Care Patient Name: Adali Holman Date of Evaluation: 07/24/23 Diagnosis: Paresthesia of SF & ulnar side of RF Stiffness of hand Pain Location: Pain Score: 4 Pain Scale Used: Numeric (0 - 10) Aggravating Factors: Movemnt, gripping, carrying Alleviating Factors: Assessment: Pt lives alone but has an adult son who comes over daily Frequency and Duration: The patient will be seen 1 x a week (co-pay) for 6 weeks Short Term Goals: Pt will be complaint w/ her HEP Pt will decrease pain to 2/10 Pt will be compliant w/ sandra taping Long-Term Goals: Pt will have 0/10 pain Pt will have a (-) wartenberg sign Pt will report opening up a water bottle w/ out assistance Treatment Plan: Therapeutic Exercise Therapeutic Activity Home Exercise Program Splinting Neuro Re-ed Patient Education Desensitization/Sensory Re-ed Edema Control ADL Training Ultrasound NMES Iontophoresis Paraffin Fluidotherapy MHP Cold Packs Joint Mobilization Soft Tissue Mobilization Kinesiotaping Other (see comments) Pt has a 35.00 co-pay and hopes to only come 1 x a week Electronically Signed By: Liana Meehan OTR/L Please Sign and return to therapist. Thank you once again for your referral.
== END 2023-08-29 09:00 | disposition home or self-care (01) ==
LOC: HO.OT 08:00
PROVIDERS: PCP Nurse Practitioner Family; Visit Provider Orthopaedic Surgery
DX: R20.0 Anesthesia of skin (principal); R20.2 Paresthesia of skin; M25.641 Stiffness of right hand, not elsewhere classified
CPT/HCPCS: 97110; 97112; 97140; 97166; 97535

== ENCOUNTER 2023-09-05 09:26 | Outpatient (AMB) | payer MEDICARE, SELFPAY ==
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
== END 2023-09-05 11:23 | disposition home or self-care (01) ==
LOC: HO.HOP 09:26
PROVIDERS: PCP Nurse Practitioner Family; Visit Provider Clinical Nurse Specialist Psychiatric/Mental Health
DX: F43.12 Post-traumatic stress disorder, chronic (principal)
CPT/HCPCS: 90833; 99214

== ENCOUNTER → 2023-09-05 09:26 | Outpatient (BNVA) | payer MEDICARE, SELFPAY | PROVIDERS: PCP Nurse Practitioner Family; Visit Provider Clinical Nurse Specialist Psychiatric/Mental Health | DX: F43.12 Post-traumatic stress disorder, chronic (principal) | CPT/HCPCS: 99212 ==

== ENCOUNTER 2023-09-10 14:07 | Outpatient (AMB) | payer MEDICARE, SELFPAY ==
--- NOTE | 2023-09-10 14:43 | A.OFFVIS_ITS ---
Intake Visit Reasons: TURBT, Bladder bx results(set) Intake Note: Patient presents today for follow up TURBT and bladder biopsy results Meds: none Allergies to Antibiotic: Penicillins Blood Thinner: Aspirin Post Void Residual: 85ml's Candy Supervisor Required: No Accompanied by: Self / Same As Patient Allergies dexlansoprazole [From DEXILANT] Allergy (Severe, Verified 09/10/23 14:53) dizziness, change in HR risedronate sodium [From ACTONEL] Allergy (Severe, Verified 09/10/23 14:53) chest discomfort Rrvjhza-YSL-AcH Reductase Inhibitor [XPKRAKA-YCB-CED REDUCTASE INHIBITOR] Allergy (Severe, Verified 09/10/23 14:53) JOINT PAIN tramadol [TRAMADOL] Allergy (Severe, Verified 09/10/23 14:53) THROAT TIGHTNESS amlodipine [AMLODIPINE] Allergy (Intermediate, Verified 09/10/23 14:53) PALIPITATIONS Atrovent Allergy (Intermediate, Verified 09/10/23 14:53) Cough baclofen [BACLOFEN] Allergy (Intermediate, Verified 09/10/23 14:53) LETHARGY Beta-Blockers (Beta-Adrenergic Bloc Allergy (Intermediate, Verified 09/10/23 14:53) BRADYCARDIA budesonide [From SYMBICORT] Allergy (Intermediate, Verified 09/10/23 14:53) HOARSENESS Chocolate Allergy (Intermediate, Verified 09/10/23 14:53) GERD ezetimibe [From ZETIA] Allergy (Intermediate, Verified 09/10/23 14:53) JOINT PAIN, ELEVATED CPK fluticasone [From ADVAIR DISKUS] Allergy (Intermediate, Verified 09/10/23 14:53) HTN glucosamine Allergy (Intermediate, Verified 09/10/23 14:53) LE edema ibandronate sodium [From BONIVA] Allergy (Intermediate, Verified 09/10/23 14:53) CHEST PAIN latex [LATEX] Allergy (Intermediate, Verified 09/10/23 14:53) RASH-SENSITIVITY lisinopril [LISINOPRIL] Allergy (Intermediate, Verified 09/10/23 14:53) COUGH, really bad cough meloxicam [From MOBIC] Allergy (Intermediate, Verified 09/10/23 14:53) GI UPSET mometasone furoate [From DULERA] Allergy (Intermediate, Verified 09/10/23 14:53) COUGH niacin Allergy (Intermediate, Verified 09/10/23 14:53) Flushing Penicillins [PENICILLINS] Allergy (Intermediate, Verified 09/10/23 14:53) RASH pregabalin [From LYRICA] Allergy (Intermediate, Verified 09/10/23 14:53) GERD flare up raloxifene [From EVISTA] Allergy (Intermediate, Verified 09/10/23 14:53) GERD rofecoxib [From Vioxx] Allergy (Intermediate, Verified 09/10/23 14:53) ankle swelling salmeterol [From ADVAIR DISKUS] Allergy (Intermediate, Verified 09/10/23 14:53) HTN scallops [SCALLOPS] Allergy (Intermediate, Verified 09/10/23 14:53) NAUSEA & VOMITING sertraline [From ZOLOFT] Allergy (Intermediate, Verified 09/10/23 14:53) SKIN CRAWLING spironolactone [SPIRONOLACTONE] Allergy (Intermediate, Verified 09/10/23 14:53) RASH, ?? psoriasis strawberry [STRAWBERRY] Allergy (Intermediate, Verified 09/10/23 14:53) ITCHING tiotropium [From SPIRIVA WITH HANDIHALER] Allergy (Intermediate, Verified 09/10/23 14:53) RAW THROAT, pharyngitis verapamil [VERAPAMIL] Allergy (Intermediate, Verified 09/10/23 14:53) IRREGULAR HEARTBEAT esomeprazole [Nexium] Allergy (Mild, Verified 09/10/23 14:53) did not resolve GERD naproxen [From ALEVE] Allergy (Mild, Verified 09/10/23 14:53) FLUSH omeprazole Allergy (Mild, Verified 09/10/23 14:53) did not resolve GERD adhesive [ADHESIVE] Allergy (Unknown, Verified 09/10/23 14:53) RASH doxycycline [DOXYCYCLINE] Allergy (Unknown, Verified 09/10/23 14:53) SEVERE NOYOLA, HEARTBURN, joint pain gabapentin [From NEURONTIN] Allergy (Unknown, Verified 09/10/23 14:53) leg swelling, SOB metoclopramide [From REGLAN] Allergy (Unknown, Verified 09/10/23 14:53) LETHARGY monosodium glutamate [MSG] Allergy (Unknown, Verified 09/10/23 14:53) HEADACHE, increased HR lifitegrast [From Xiidra] Allergy (Verified 09/10/23 14:53) blurred vision, headache, eye swelling metoprolol Adverse Reaction (Severe, Verified 09/10/23 14:53) Severe bradycardia alendronate sodium [From Fosamax] Adverse Reaction (Intermediate, Verified 09/10/23 14:53) Joint Pain amitriptyline Adverse Reaction (Intermediate, Verified 09/10/23 14:53) Agitated cyclosporine [From Cequa] Adverse Reaction (Intermediate, Verified 09/10/23 14:53) Eye Swelling fluticasone furoate [From Trelegy Ellipta] Adverse Reaction (Intermediate, Verified 09/10/23 14:53) asthma exacerbation perfluorohexyloctane [From Miebo] Adverse Reaction (Intermediate, Verified 09/10/23 14:53) Eye Swelling tobramycin [From Tobrex] Adverse Reaction (Intermediate, Verified 09/10/23 14:53) Eye Swelling umeclidinium [From Trelegy Ellipta] Adverse Reaction (Intermediate, Verified 09/10/23 14:53) asthma exacerbation vilanterol [From Trelegy Ellipta] Adverse Reaction (Intermediate, Verified 09/10/23 14:53) asthma exacerbation azelastine Adverse Reaction (Mild, Verified 09/10/23 14:53) Gastrointestinal Upset hi Adverse Reaction (Intermediate, Uncoded 09/10/23 14:53) Itchy Eyes Sulindac Adverse Reaction (Intermediate, Uncoded 09/10/23 14:53) Nausea, pain HPI Comments Details: 09/10/23--Adali is status post cystoscopy TURBT. I have reviewed pathology, low- grade noninvasive bladder cancer. I have discussed treatment management for cystoscopy surveillance. Based on small size and that the tumor is low-grade, bladder installations therapy is not indicated at this time. Review of chart: 07/25/2023--here for cystoscopy. CT urogram--within normal limits. Cystoscopy findings: Mild to moderate bladder wall thickening. 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 Discussed cystoscopy TURBT. Consent obtained. 05/19/23--Adali is a 73-year-old female who is here for evaluation for microscopic hematuria. The patient has a history of nicotine use quit in 1979. The patient has lower urinary tract symptoms of urinary frequency. 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 She states she is no longer routinely following with FINANCIAL OFFICER but told by FINANCIAL OFFICER about 3 years ago that she had vaginal prolapse. She denies dysuria. Urinalysis trace blood, 0 leukocytes. I have discussed microscopic hematuria may be due to but not limited to kidney stones, BPH, cystitis, urinary tract malignancy. I have discussed work up to include evaluation of the urinary tract which may include imaging, further urine testing, and cystoscopy Plan--CT urogram, urine for cytology, follow-up office cystoscopy [facility] Medical History Bladder carcinoma History of trigger finger Right groin pain Cervical radiculitis Chronic sinusitis COVID-19 vaccine administered Trigger finger GERD (gastroesophageal reflux disease) FRANCESCA (obstructive sleep apnea) CAD (coronary artery disease) History of primary hyperparathyroidism Non-toxic multinodular goiter Osteoporosis Pulmonary nodules H/O gastroesophageal reflux (GERD) HLD (hyperlipidemia) HTN (hypertension) COPD (chronic obstructive pulmonary disease) Asthma History of aneurysm Migraine Depression PTSD (post-traumatic stress disorder) History of panic attacks Right inguinal hernia Anxiety Umbilical pain Edema Dizziness History of deviated nasal septum Medial epicondylitis of left elbow Fusion of spine, cervical region Surgical History Hx of cystoscopy H/O cervical spine surgery Hx of hand surgery Hx of right inguinal hernia repair History of hernia repair Hx of colonoscopy History of esophagogastroduodenoscopy (EGD) S/P repair of paraesophageal hernia H/O decompression of ulnar nerve Status post ablation of incompetent vein using laser History of cardiac catheterization History of eyelid surgery History of appendectomy History of parathyroidectomy History of cholecystectomy Hx of cataract surgery Hx of shoulder surgery S/P cubital tunnel release S/P arthroscopic surgery of right knee History of lumpectomy of both breasts History of hysterectomy Hx of adenoidectomy Hx of tonsillectomy Hx of eye surgery Family History Father Liver cancer Psoriasis Cancer Mental health disorder Mother Cervical cancer Ovarian cancer Heart attack Substance use disorder Social History Household Members: Children and None Housing: House Alcohol intake: current Alcohol intake frequency: does not drink Patient Tobacco Use Status: Former Tobacco user Tobacco use type: Cigarette e-Cigarette/Vaping Use: Never Used Second Hand Smoke Exposure: No service: No Current occupational status: employed 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, 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 Cognitive needs: No Hearing needs: No Vision needs: No Review of Systems Const All systems reviewed & are unremarkable except as noted in HPI and below Reports no additional complaints Eyes Reports no additional complaints ENT Reports no additional complaints Card Reports no additional complaints Resp Reports no additional complaints GI Reports no additional complaints Reports as per HPI Musc Reports no additional complaints Skin/Breast Reports system reviewed and no additional complaints, except as documented Neuro Reports no additional complaints Psych Reports no additional complaints Endo Reports no additional complaints Jesse/Lymph Reports no additional complaints Aller/Immun Reports no additional complaints Office Procedures Post Void Residual Post Residual Void Post Void Residual (PVR): 85 [id number] Void Residual by ultrasound Results AMB Urinalysis, Automated UA Leukoctes 0 Jason/uL Last Edit by [employer] on 09/10/23 14:56 UA Nitrite Negative Last Edit by [employer] on 09/10/23 14:56 UA Urobilinogen 0.2 mg/dL Last Edit by [employer] on 09/10/23 14:56 UA Protein 0 mg/dL Last Edit by [employer] on 09/10/23 14:56 UA pH 6.0 Last Edit by [employer] on 09/10/23 14:56 UA Blood 80 Delfino/uL Last Edit by [employer] on 09/10/23 14:56 UA Specific [place] 1.010 Last Edit by [employer] on 09/10/23 14:56 UA Ketone Negative Last Edit by [employer] on 09/10/23 14:56 UA Bilirubin 0 mg/dL Last Edit by [employer] on 09/10/23 14:56 UA Glucose 0 mg/dL Last Edit by [employer] on 09/10/23 14:56 Results Reviewed Results Reviewed: Laboratory Last Values Urine pH (Auto) 6.0 09/10/23 14:54 Specific [place] (Auto) 1.010 09/10/23 14:54 Urine Protein (Auto) 0 mg/dL 09/10/23 14:54 Glucose (UA)(Auto) 0 mg/dL 09/10/23 14:54 Urine Ketones (Auto) Negative 09/10/23 14:54 Urine Blood (Auto) 80 Delfino/uL 09/10/23 14:54 Urine Nitrite (Auto) Negative 09/10/23 14:54 Urine Bilirubin (Auto) 0 mg/dL 09/10/23 14:54 Urine Urobilinogen (Auto) 0.2 mg/dL 09/10/23 14:54 Leukocyte Esterase (Auto) 0 Jason/uL 09/10/23 14:54 Collected: 08/19/23 Location: [facility] Received: 08/19/23 Diagnosis A. Bladder, left lateral wall, Transurethral resection: - Low-grade papillary urothelial carcinoma, noninvasive. - No muscularis propria identified. B. Bladder, random posterolateral wall, biopsy: Mild chronic cystitis; muscularis propria present. C. Bladder, random right lateral wall, biopsy: Mild chronic cystitis; muscularis propria present. Bladder, transurethral resection/biopsy (A) Procedure: Transurethral resection Tumor site: Left lateral wall Histologic type: Papillary carcinoma Histologic grade: Low-grade Muscularis propria: Not present Extent of invasion: Noninvasive Lymphovascular invasion: Not identified Date of Service: 07/15/23 EXAMINATION: CT ABDOMEN AND PELVIS WITHOUT AND WITH CONTRAST CLINICAL INFORMATION: Hematuria. COMPARISON: None available. DLP: 720 mGy-cm FINDINGS: LUNG BASES: The visualized lung bases are unremarkable. LIVER, GALLBLADDER, AND BILIARY TREE: The liver is normal in size, shape, and attenuation. No focal hepatic lesion or biliary ductal dilatation is present. Status post cholecystectomy. PANCREAS: Unremarkable. SPLEEN: Unremarkable. ADRENAL GLANDS: Unremarkable. KIDNEYS AND URETERS: The kidneys are normal in size, shape, and attenuation. 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 No hydronephrosis, hydroureter, or calculi seen. No perinephric stranding. No renal parenchymal masses are seen. The uroepithelium appears normal without evidence of masses. BLADDER: Unremarkable. GASTROINTESTINAL TRACT: There is extensive left-sided diverticular disease without diverticulitis. The small and large bowel are otherwise unremarkable. No evidence of appendicitis. ABDOMINAL WALL: No significant hernia is appreciated. LYMPH NODES: Normal. VASCULAR: Calcific atherosclerotic changes are present in the aorta and iliofemoral vessels. There is no evidence of an abdominal aortic aneurysm. PELVIC VISCERA: The uterus is not seen. An abnormal adnexal mass is not detected. No free intraperitoneal fluid is present. OSSEUS STRUCTURES: Degenerative changes are present in the lower thoracic spine as well as at L5-S1. No bony destructive lesions. IMPRESSION: 1. A cause for the patient's hematuria has not been found. Assessment & Plan Assessment & Plan (1) History of nicotine use: Code(s): Z87.891 - Personal history of nicotine dependence Category: Medical (2) Microscopic hematuria: Code(s): R31.29 - Other microscopic hematuria Category: Medical (3) Urinary frequency: Code(s): R35.0 - Frequency of micturition Category: Medical (4) Hematuria: Code(s): R31.9 - Hematuria, unspecified Category: Medical (5) Bladder tumor: Code(s): D49.4 - Neoplasm of unspecified behavior of bladder Category: Medical (6) Bladder wall thickening: Code(s): N32.89 - Other specified disorders of bladder Category: Medical (7) Bladder cancer: Code(s): C67.9 - Malignant neoplasm of bladder, unspecified Category: Medical Plan Surveillance office cystoscopy in 3 months Orders: Orders AMB Urinalysis Automated Today Z13.9 - Encounter for screening, unspecified AMB Post Void Residual by ultrasound Today R39.15 - Urgency of urination Patient Instructions: The patient had an opportunity to ask questions regarding treatment plan. The patient expressed understanding and agreement with the above treatment plan. The patient is aware they should contact our office by phone for worsening of their current condition or the appearance of new symptoms. Compliance is encouraged with any medications and followup testing that is ordered. It is a privilege to be allowed the opportunity to participate in the urologic care of your patient. If you have any questions or concerns regarding treatment for the above conditions please do not hesitate to contact me. The office telephone contact is [phone]. This note is constructed in part using voice recognition software. While every effort has been made to ensure accuracy breaker table worker errors may have been included. Yours sincerely, Chloe Dodge MD Coding Level of Care Code Est Pt Level 4 (61695) Diagnoses History of nicotine use Z87.891 Microscopic hematuria R31.29 Urinary frequency R35.0 Hematuria R31.9 Bladder tumor D49.4 Bladder wall thickening N32.89 Bladder cancer C67.9 CPT Codes Post Residual Void - PVR CPT Code: 03827-Zrpq Void Residual by ultrasound ([id number])
== END 2023-09-10 15:48 | disposition home or self-care (01) ==
PROVIDERS: PCP Nurse Practitioner Family; Visit Provider Urology
DX: Z87.891 Personal history of nicotine dependence (principal); R31.29 Other microscopic hematuria; R35.0 Frequency of micturition; R31.9 Hematuria, unspecified; D49.4 Neoplasm of unspecified behavior of bladder; N32.89 Other specified disorders of bladder; C67.9 Malignant neoplasm of bladder, unspecified; Z13.9 Encounter for screening, unspecified
CPT/HCPCS: 99214

== ENCOUNTER → 2023-09-10 14:07 | Outpatient (BNVA) | payer MEDICARE, SELFPAY | PROVIDERS: PCP Nurse Practitioner Family; Visit Provider Urology | DX: R31.29 Other microscopic hematuria (principal); R35.0 Frequency of micturition; R31.9 Hematuria, unspecified; D49.4 Neoplasm of unspecified behavior of bladder; N32.89 Other specified disorders of bladder; C67.9 Malignant neoplasm of bladder, unspecified; Z87.891 Personal history of nicotine dependence | CPT/HCPCS: 51798; 81003; 99212 ==

== ENCOUNTER 2023-09-19 08:54 | Outpatient (AMB) | payer MEDICARE, SELFPAY ==
--- NOTE | 2023-09-19 08:57 | A.OFFVIS_ITS ---
Vital Signs 09/19/23 08:58 Height 4 ft 11 in Weight 160 lb 14.999 oz BMI 32.5 BP 115/80 Blood Pressure Location Lt brachial Position Sitting Intake Visit Reasons: 6 month follow up GERD Intake Note: Adali presents in the office as a 6 month follow up for GERD. CC: She states that she still gets a feeling in the middle of the chest when she bends over, burping with heartburn. Medication seems to help. Safety Security Officer Required: No Allergies dexlansoprazole [From DEXILANT] Allergy (Severe, Verified 09/19/23 08:58) dizziness, change in HR risedronate sodium [From ACTONEL] Allergy (Severe, Verified 09/19/23 08:58) chest discomfort Pfdsonc-OVK-VmM Reductase Inhibitor [[id number] REDUCTASE INHIBITOR] Allergy (Severe, Verified 09/19/23 08:58) JOINT PAIN tramadol [TRAMADOL] Allergy (Severe, Verified 09/19/23 08:58) THROAT TIGHTNESS amlodipine [AMLODIPINE] Allergy (Intermediate, Verified 09/19/23 08:58) PALIPITATIONS Atrovent Allergy (Intermediate, Verified 09/19/23 08:58) Cough baclofen [BACLOFEN] Allergy (Intermediate, Verified 09/19/23 08:58) LETHARGY Beta-Blockers (Beta-Adrenergic Bloc Allergy (Intermediate, Verified 09/19/23 08:58) BRADYCARDIA budesonide [From SYMBICORT] Allergy (Intermediate, Verified 09/19/23 08:58) HOARSENESS Chocolate Allergy (Intermediate, Verified 09/19/23 08:58) GERD ezetimibe [From ZETIA] Allergy (Intermediate, Verified 09/19/23 08:58) JOINT PAIN, ELEVATED CPK fluticasone [From ADVAIR DISKUS] Allergy (Intermediate, Verified 09/19/23 08:58) HTN glucosamine Allergy (Intermediate, Verified 09/19/23 08:58) LE edema ibandronate sodium [From BONIVA] Allergy (Intermediate, Verified 09/19/23 08:58) CHEST PAIN latex [LATEX] Allergy (Intermediate, Verified 09/19/23 08:58) RASH-SENSITIVITY lisinopril [LISINOPRIL] Allergy (Intermediate, Verified 09/19/23 08:58) COUGH, really bad cough meloxicam [From MOBIC] Allergy (Intermediate, Verified 09/19/23 08:58) GI UPSET mometasone furoate [From DULERA] Allergy (Intermediate, Verified 09/19/23 08:58) COUGH niacin Allergy (Intermediate, Verified 09/19/23 08:58) Flushing Penicillins [PENICILLINS] Allergy (Intermediate, Verified 09/19/23 08:58) RASH pregabalin [From LYRICA] Allergy (Intermediate, Verified 09/19/23 08:58) GERD flare up raloxifene [From EVISTA] Allergy (Intermediate, Verified 09/19/23 08:58) GERD rofecoxib [From Vioxx] Allergy (Intermediate, Verified 09/19/23 08:58) ankle swelling salmeterol [From ADVAIR DISKUS] Allergy (Intermediate, Verified 09/19/23 08:58) HTN scallops [SCALLOPS] Allergy (Intermediate, Verified 09/19/23 08:58) NAUSEA & VOMITING sertraline [From ZOLOFT] Allergy (Intermediate, Verified 09/19/23 08:58) SKIN CRAWLING spironolactone [SPIRONOLACTONE] Allergy (Intermediate, Verified 09/19/23 08:58) RASH, ?? psoriasis strawberry [STRAWBERRY] Allergy (Intermediate, Verified 09/19/23 08:58) ITCHING tiotropium [From SPIRIVA WITH HANDIHALER] Allergy (Intermediate, Verified 09/19/23 08:58) RAW THROAT, pharyngitis verapamil [VERAPAMIL] Allergy (Intermediate, Verified 09/19/23 08:58) IRREGULAR HEARTBEAT esomeprazole [Nexium] Allergy (Mild, Verified 09/19/23 08:58) did not resolve GERD naproxen [From ALEVE] Allergy (Mild, Verified 09/19/23 08:58) FLUSH omeprazole Allergy (Mild, Verified 09/19/23 08:58) did not resolve GERD adhesive [ADHESIVE] Allergy (Unknown, Verified 09/19/23 08:58) RASH doxycycline [DOXYCYCLINE] Allergy (Unknown, Verified 09/19/23 08:58) SEVERE NOYOLA, HEARTBURN, joint pain gabapentin [From NEURONTIN] Allergy (Unknown, Verified 09/19/23 08:58) leg swelling, SOB metoclopramide [From REGLAN] Allergy (Unknown, Verified 09/19/23 08:58) LETHARGY monosodium glutamate [MSG] Allergy (Unknown, Verified 09/19/23 08:58) HEADACHE, increased HR lifitegrast [From Xiidra] Allergy (Verified 09/19/23 08:58) blurred vision, headache, eye swelling metoprolol Adverse Reaction (Severe, Verified 09/19/23 08:58) Severe bradycardia alendronate sodium [From Fosamax] Adverse Reaction (Intermediate, Verified 09/19/23 08:58) Joint Pain amitriptyline Adverse Reaction (Intermediate, Verified 09/19/23 08:58) Agitated cyclosporine [From Cequa] Adverse Reaction (Intermediate, Verified 09/19/23 08:58) Eye Swelling fluticasone furoate [From Trelegy Ellipta] Adverse Reaction (Intermediate, Verified 09/19/23 08:58) asthma exacerbation perfluorohexyloctane [From Miebo] Adverse Reaction (Intermediate, Verified 09/19/23 08:58) Eye Swelling tobramycin [From Tobrex] Adverse Reaction (Intermediate, Verified 09/19/23 08:58) Eye Swelling umeclidinium [From Trelegy Ellipta] Adverse Reaction (Intermediate, Verified 09/19/23 08:58) asthma exacerbation vilanterol [From Trelegy Ellipta] Adverse Reaction (Intermediate, Verified 09/19/23 08:58) asthma exacerbation azelastine Adverse Reaction (Mild, Verified 09/19/23 08:58) Gastrointestinal Upset hi Adverse Reaction (Intermediate, Uncoded 09/19/23 08:58) Itchy Eyes Sulindac Adverse Reaction (Intermediate, Uncoded 09/19/23 08:58) Nausea, pain HPI HPI 6 month follow up GERD: Details: 73 yr old f here for f/u RECAP: seen by May initially due to GERD neg caridac eval using wedge pillows she has failed omeprazole, Nexium, Dexilant, and Gaviscon. She has done the best on Protonix and takes it twice a day about 3 times a week she had ba swallow 2015- pill was ok, reflux noted, small sliding hiatal hernia repeat GI series 11/2018--same as above, small bowel was normal EGD- with dilation- helped her dysphagia, 4 cm hiatal hernia noted. mild gastritis she had ongoing sx with regurg, vomtiing, and burping advised on SALT consult for aerophagia trial of zegrid and pepcid combo At f/u visit she was still on pantoprazole bid and gas x or tums otherwise vomiting was better but still had breakthru burping, regurgitation, and sob if she bends forward she was also coughing after eating some ruq and epigastric discomfort still has trouble food sticking occ she did have one episode of blood noted in stool, on wiping, slight after having a nose bleed and coughing some blood, colonoscopy 2016 with diverticulosis, no mention made of hemorrhoids she does have nose bleeds on and off maybe once a week, uses 3-5 tissues has afrin at home CBC was good with HGB 14 g/dl sigmoidoscopy with grade II internal hemorrhoids, and severe diverticulosis, fair prep, no blood seen in colon u/s liver 03/2019-- fatty liver, hepatomegaly GES 03/2019--normal emptying she was referred to Dr Del Rosario for lap repair of hiatal hernia 09/2019 and did well I ordered CT scan for groin pain revealed fat containing inguinal hernias, awaiting surgical repair by Dr Carson of right side she had noticed she is going to bathroom more often, she has urgency she was still taking align and Mag, Advised to stop Mag supplements, and increase fiber intake Ba swallow-- 04/2020--normal EGD 11/30-- gastritis, esophagitis bx: moderate inflammation GEJ switched from pepcid to PPI She had repeat EGD and colonoscopy Endoscopy Findings: slightly lax LES gastritis Colonoscopy Findings internal hemorrhoids diverticular disease erosive ileitis Path: GEJ --mild chronic inflammation, focal ileitis, colon bx normal prior to endoscopies she had just commenced celebrix, stopped ibuprofen--for spinal pain and hand pain Ba swallow- mild reflux , normal swallow, no pill given EGD 02/05/23 Balloon dilation 18 mm, esophageal stricture hiatal hernia EGD 05/2023: erosive gastritis small hiatal hernia dilation done 20 mm balloon INTERIM: she felt dilation helped burping a lot food was going down well she felt sx are recurring now, she had bladder surgery and had intubation , 07/2023 and felt sx got worse since then burping recurring and spasm, and food sticking not been taking nsaids, only tylenol she is waiting for hand surgery EXAM: voice is normal GENERAL: The patient is well developed and nontoxic. VITAL SIGNS:see workflow HEENT: Nonicteric sclerae, PERRLA, EOMI. Oropharynx clear. Moist mucous membranes. Conjunctivae appear well perfused. No thyroid mass. CHEST: Chest wall is nontender. HEART: Regular rate and rhythm without murmurs. LUNGS: Clear to auscultation bilaterally. ABDOMEN: Soft, positive bowel sounds, nontender, no organomegaly.no flank tenderness SKIN: No rash, no excessive bruising, petechiae, or purpura. NEUROLOGIC: Cranial nerves II-XII intact without motor/sensory deficit. Assessment & Plan 1/ GERD, on PPI 2/ severe diverticulosis causing LLQ pain and discomfort--not an issue at this time 3/ dysphagia, prob from 1/ above and possible esophageal spasm PLAN: 1/ cont with PPI, repeat dilation, use savary next time [facility] Medical History (Updated 09/19/23 @ 09:25 by Elton Garcia MD) Hx of carcinoma of bladder Bladder carcinoma History of trigger finger Right groin pain Cervical radiculitis Chronic sinusitis COVID-19 vaccine administered Trigger finger GERD (gastroesophageal reflux disease) FRANCESCA (obstructive sleep apnea) CAD (coronary artery disease) History of primary hyperparathyroidism Non-toxic multinodular goiter Osteoporosis Pulmonary nodules H/O gastroesophageal reflux (GERD) HLD (hyperlipidemia) HTN (hypertension) COPD (chronic obstructive pulmonary disease) Asthma History of aneurysm Migraine Depression PTSD (post-traumatic stress disorder) History of panic attacks Right inguinal hernia Anxiety Umbilical pain Edema Dizziness History of deviated nasal septum Medial epicondylitis of left elbow Fusion of spine, cervical region Surgical History Hx of cystoscopy H/O cervical spine surgery Hx of hand surgery Hx of right inguinal hernia repair History of hernia repair Hx of colonoscopy History of esophagogastroduodenoscopy (EGD) S/P repair of paraesophageal hernia H/O decompression of ulnar nerve Status post ablation of incompetent vein using laser History of cardiac catheterization History of eyelid surgery History of appendectomy History of parathyroidectomy History of cholecystectomy Hx of cataract surgery Hx of shoulder surgery S/P cubital tunnel release S/P arthroscopic surgery of right knee History of lumpectomy of both breasts History of hysterectomy Hx of adenoidectomy Hx of tonsillectomy Hx of eye surgery Family History Father Liver cancer Psoriasis Cancer Mental health disorder Mother Cervical cancer Ovarian cancer Heart attack Substance use disorder Social History Household Members: Children and None Housing: House Alcohol intake: current Alcohol intake frequency: does not drink Patient Tobacco Use Status: Former Tobacco user Tobacco use type: Cigarette e-Cigarette/Vaping Use: Never Used Second Hand Smoke Exposure: No service: No Current occupational status: employed 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 Much improved since diaphragmatic hernia repair Code(s): Z87.19 - Personal history of other diseases of the digestive system Category: Medical Plan: see above (2) Dysphagia: Code(s): R13.10 - Dysphagia, unspecified Category: Medical Plan: see above Coding Level of Care Code Est Pt Level 3 (45218) Diagnoses H/O gastroesophageal reflux (GERD) Z87.19 Dysphagia R13.10
[2023-09-19 08:58] VITALS: BP 115/80; BMI 32.5
== END 2023-09-19 09:24 | disposition home or self-care (01) ==
PROVIDERS: PCP Nurse Practitioner Family; Visit Provider Internal Medicine Gastroenterology
DX: Z87.19 Personal history of other diseases of the digestive system (principal); R13.10 Dysphagia, unspecified
CPT/HCPCS: 99213

== ENCOUNTER → 2023-09-19 08:54 | Outpatient (BNVA) | payer MEDICARE, SELFPAY | PROVIDERS: PCP Nurse Practitioner Family; Visit Provider Internal Medicine Gastroenterology | DX: K21.9 Gastro-esophageal reflux disease without esophagitis (principal); R13.10 Dysphagia, unspecified; Z87.19 Personal history of other diseases of the digestive system | CPT/HCPCS: 99212 ==

== ENCOUNTER 2023-10-01 06:23 | Outpatient (REF) | payer MEDICARE, SELFPAY ==
[2023-10-01 10:34] LABS: Appearance Urine Clear; Color Urine Yellow; Glucose Urine UA Negative (Negative); Leukocyte Esterase Urine Negative (Negative); Nitrite Urine Negative (Negative); PH 6.5 (5.0-9.0); Specific Gravity - Urine 1.015 (1.005-1.025); Urine Blood Negative (Negative); Urine Ketones Negative (Negative); Urine Protein Negative (Neg-Trace)
[2023-10-01 11:29] LABS: MANUAL DIFF FLAG NO
[2023-10-01 11:32] LABS: Basophils Absolute Auto 0.1 X10*3/uL (0.0-0.2); Basophils Percent Auto 1.6 % (0-2); Eosinophils Absolute Auto 0.2 X10*3/uL (0.0-0.4); Eosinophils Percent Auto 3.7 % (0-4); Hematocrit 42.9 % (37.0-47.0); Hemoglobin 13.9 g/dl (12.0-16.0); Imm Gran Abs Auto 0.01 X10*3/uL (0.00-0.03); Imm Gran Pct Auto 0.2 % (0.0-0.4); Lymphocytes Absolute Auto 1.7 X10*3/uL (1.2-4.9); Lymphocytes Percent Auto 30.6 % (20-40); Mean Corpuscular HGB Conc 32.4 g/dl (31.0-35.0); Mean Corpuscular Hemoglobin 29.5 pg (27.0-33.0); Mean Corpuscular Volume 91.1 fL (80.0-98.0); Mean Platelet Volume 10.6 fL (9.4-12.3); Monocytes Absolute Auto 0.3 X10*3/uL (0.1-1.2); Monocytes Percent Auto 5.8 % (2-11); Neutrophils Absolute Auto 3.3 x10*3/uL (2.0-8.3); Neutrophils Percent Auto 58.1 % (45-73); Platelet Count 304 X10*3/uL (160-400); Red Blood Count 4.71 X10*6/uL (4.20-5.50); Red Cell Distribution Width 11.9 % (11.0-16.0); White Blood Count 5.7 X10*3/uL (4.8-10.8)
[2023-10-01 13:37] LABS: Alanine Aminotransferase 11 U/L (0-31); Albumin Level 3.8 g/dL (3.5-5.0); Alkaline Phosphatase 86 U/L (39-117); Anion Gap 11 (12-20); Aspartate Amino Transferase 19 U/L (5-31); Bilirubin Total 0.5 mg/dL (0.0-1.0); Blood Urea Nitrogen 12 mg/dL (9-16); Calcium 8.7 mg/dL (8.4-10.2); Carbon Dioxide 30 mmol/L (22-29); Chloride 104 mmol/L (96-108); Cholesterol 143 mg/dL (<200); Estimated Glomerular Filt Rate > 60; Glucose Fasting 84 mg/dL (60-99); HDL Cholesterol 43 mg/dL (>40); LDL Cholesterol Calculated 74 mg/dL (<100); Potassium 4.3 mmol/L (3.3-5.1); Sodium 141 mmol/L (135-145); Total Protein 6.8 g/dL (6.5-8.0); Triglycerides 134 mg/dL (<150); Vitamin D 25-OH Total 67.6 ng/mL (>30)
== END 2023-10-01 06:24 | disposition home or self-care (01) ==
LOC: HO.HMGCLDS 06:23
PROVIDERS: PCP Nurse Practitioner Family; Visit Provider Nurse Practitioner Family
DX: M18.0 Bilateral primary osteoarthritis of first carpometacarpal joints (principal); I10 Essential (primary) hypertension
CPT/HCPCS: 36415; 80053; 80061; 81003; 82306; 84443; 85025; 99212

== ENCOUNTER 2023-10-01 09:54 | Outpatient (AMB) | payer MEDICARE, SELFPAY ==
[2023-10-01 11:01] VITALS: BMI 32.3
--- NOTE | 2023-10-01 11:01 | A.OFFVIS_ITS ---
Vital Signs 10/01/23 11:01 Height 4 ft 11 in Weight 160 lb BMI 32.3 Intake Visit Reasons: OV- possible RT middle & RT ring finger injection Intake Note: Adali is a 73 year old 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 female who presents today to discuss steroid injections on right ring finger as well as right small finger. Patient states there is a burning and aching sensation at the PIP joints of the right ring and small fingers that radiate to the right wrist. Patient is currently expecting to have right CTR 11/20/[address] Cagle. Patient would like to discuss steroid injections today. Allergies dexlansoprazole [From DEXILANT] Allergy (Severe, Verified 10/01/23 11:03) dizziness, change in HR risedronate sodium [From ACTONEL] Allergy (Severe, Verified 10/01/23 11:03) chest discomfort Ouaprjh-YRS-PxR Reductase Inhibitor [[id number] REDUCTASE INHIBITOR] Allergy (Severe, Verified 10/01/23 11:03) JOINT PAIN tramadol [TRAMADOL] Allergy (Severe, Verified 10/01/23 11:03) THROAT TIGHTNESS amlodipine [AMLODIPINE] Allergy (Intermediate, Verified 10/01/23 11:03) PALIPITATIONS Atrovent Allergy (Intermediate, Verified 10/01/23 11:03) Cough baclofen [BACLOFEN] Allergy (Intermediate, Verified 10/01/23 11:03) LETHARGY Beta-Blockers (Beta-Adrenergic Bloc Allergy (Intermediate, Verified 10/01/23 11:03) BRADYCARDIA budesonide [From SYMBICORT] Allergy (Intermediate, Verified 10/01/23 11:03) HOARSENESS Chocolate Allergy (Intermediate, Verified 10/01/23 11:03) GERD ezetimibe [From ZETIA] Allergy (Intermediate, Verified 10/01/23 11:03) JOINT PAIN, ELEVATED CPK fluticasone [From ADVAIR DISKUS] Allergy (Intermediate, Verified 10/01/23 11:03) HTN glucosamine Allergy (Intermediate, Verified 10/01/23 11:03) LE edema ibandronate sodium [From BONIVA] Allergy (Intermediate, Verified 10/01/23 11:03) CHEST PAIN latex [LATEX] Allergy (Intermediate, Verified 10/01/23 11:03) RASH-SENSITIVITY lisinopril [LISINOPRIL] Allergy (Intermediate, Verified 10/01/23 11:03) COUGH, really bad cough meloxicam [From MOBIC] Allergy (Intermediate, Verified 10/01/23 11:03) GI UPSET mometasone furoate [From DULERA] Allergy (Intermediate, Verified 10/01/23 11:03) COUGH niacin Allergy (Intermediate, Verified 10/01/23 11:03) Flushing Penicillins [PENICILLINS] Allergy (Intermediate, Verified 10/01/23 11:03) RASH pregabalin [From LYRICA] Allergy (Intermediate, Verified 10/01/23 11:03) GERD flare up raloxifene [From EVISTA] Allergy (Intermediate, Verified 10/01/23 11:03) GERD rofecoxib [From Vioxx] Allergy (Intermediate, Verified 10/01/23 11:03) ankle swelling salmeterol [From ADVAIR DISKUS] Allergy (Intermediate, Verified 10/01/23 11:03) HTN scallops [SCALLOPS] Allergy (Intermediate, Verified 10/01/23 11:03) NAUSEA & VOMITING sertraline [From ZOLOFT] Allergy (Intermediate, Verified 10/01/23 11:03) SKIN CRAWLING spironolactone [SPIRONOLACTONE] Allergy (Intermediate, Verified 10/01/23 11:03) RASH, ?? psoriasis strawberry [STRAWBERRY] Allergy (Intermediate, Verified 10/01/23 11:03) ITCHING tiotropium [From SPIRIVA WITH HANDIHALER] Allergy (Intermediate, Verified 10/01/23 11:03) RAW THROAT, pharyngitis verapamil [VERAPAMIL] Allergy (Intermediate, Verified 10/01/23 11:03) IRREGULAR HEARTBEAT esomeprazole [Nexium] Allergy (Mild, Verified 10/01/23 11:03) did not resolve GERD naproxen [From ALEVE] Allergy (Mild, Verified 10/01/23 11:03) FLUSH omeprazole Allergy (Mild, Verified 10/01/23 11:03) did not resolve GERD adhesive [ADHESIVE] Allergy (Unknown, Verified 10/01/23 11:03) RASH doxycycline [DOXYCYCLINE] Allergy (Unknown, Verified 10/01/23 11:03) SEVERE NOYOLA, HEARTBURN, joint pain gabapentin [From NEURONTIN] Allergy (Unknown, Verified 10/01/23 11:03) leg swelling, SOB metoclopramide [From REGLAN] Allergy (Unknown, Verified 10/01/23 11:03) LETHARGY monosodium glutamate [MSG] Allergy (Unknown, Verified 10/01/23 11:03) HEADACHE, increased HR lifitegrast [From Xiidra] Allergy (Verified 10/01/23 11:03) blurred vision, headache, eye swelling metoprolol Adverse Reaction (Severe, Verified 10/01/23 11:03) Severe bradycardia alendronate sodium [From Fosamax] Adverse Reaction (Intermediate, Verified 11:03) Joint Pain amitriptyline Adverse Reaction (Intermediate, Verified 10/01/23 11:03) Agitated cyclosporine [From Cequa] Adverse Reaction (Intermediate, Verified 10/01/23 11:03) Eye Swelling fluticasone furoate [From Trelegy Ellipta] Adverse Reaction (Intermediate, Verified 10/01/23 11:03) asthma exacerbation perfluorohexyloctane [From Miebo] Adverse Reaction (Intermediate, Verified 0 10/01/23 11:03) Eye Swelling tobramycin [From Tobrex] Adverse Reaction (Intermediate, Verified 10/01/23 11:03) Eye Swelling umeclidinium [From Trelegy Ellipta] Adverse Reaction (Intermediate, Verified 10/01/23 11:03) asthma exacerbation vilanterol [From Trelegy Ellipta] Adverse Reaction (Intermediate, Verified 10/01/23 11:03) asthma exacerbation azelastine Adverse Reaction (Mild, Verified 10/01/23 11:03) Gastrointestinal Upset hi Adverse Reaction (Intermediate, Uncoded 10/01/23 11:03) Itchy Eyes Sulindac Adverse Reaction (Intermediate, Uncoded 10/01/23 11:03) Nausea, pain HPI HPI OV- possible RT middle & RT ring finger injection: Details: Adali is a 73 year old 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 woman who returns to discuss her right ring & small finger pain She continues to complain of pain, weakness, and numbness in her right hand, primarily her ring & small fingers. She had a Hematoma in her right hand from an IV on 02/05/23 during an EGD. She says the Hematoma resolved but since she has had pain radiating from these fingers into her wrist, along with tingling & weakness. She complains of worsening pain primarily in her small finger and dorsal aspect of her hand. She reports feeling like her small finger is shrinking . She has been using velcro Chuy-tape to hold her ring & small fingers together during the day with activities, which she finds helpful. 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 She says she is able to work remote and can modify her activities at work following surgery. *Please see my note from 08/13/23 for more information* [facility] Medical History (Updated 09/19/23 @ 13:03 by Sachin Linares, [facility]) Esophageal spasm Hx of carcinoma of bladder Bladder carcinoma History of trigger finger Right groin pain Cervical radiculitis Chronic sinusitis COVID-19 vaccine administered Trigger finger GERD (gastroesophageal reflux disease) FRANCESCA (obstructive sleep apnea) CAD (coronary artery disease) History of primary hyperparathyroidism Non-toxic multinodular goiter Osteoporosis Pulmonary nodules H/O gastroesophageal reflux (GERD) HLD (hyperlipidemia) HTN (hypertension) COPD (chronic obstructive pulmonary disease) Asthma History of aneurysm Migraine Depression PTSD (post-traumatic stress disorder) History of panic attacks Right inguinal hernia Anxiety Umbilical pain Edema Dizziness History of deviated nasal septum Medial epicondylitis of left elbow Fusion of spine, cervical region Surgical History Hx of cystoscopy H/O cervical spine surgery Hx of hand surgery Hx of right inguinal hernia repair History of hernia repair Hx of colonoscopy History of esophagogastroduodenoscopy (EGD) S/P repair of paraesophageal hernia H/O decompression of ulnar nerve Status post ablation of incompetent vein using laser History of cardiac catheterization History of eyelid surgery History of appendectomy History of parathyroidectomy History of cholecystectomy Hx of cataract surgery Hx of shoulder surgery S/P cubital tunnel release S/P arthroscopic surgery of right knee History of lumpectomy of both breasts History of hysterectomy Hx of adenoidectomy Hx of tonsillectomy Hx of eye surgery Family History Father Liver cancer Psoriasis Cancer Mental health disorder Mother Cervical cancer Ovarian cancer Heart attack Substance use disorder Social History Household Members: Children and None Housing: House Alcohol intake: current Alcohol intake frequency: does not drink Patient Tobacco Use Status: Former Tobacco user Tobacco use type: Cigarette e-Cigarette/Vaping Use: Never Used Second Hand Smoke Exposure: No service: No Current occupational status: employed 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 Decreased sensation in the ulnar nerve distribution today in clinic No numbness to the dorsal ulnar aspect of her hand No thenar or intrinsic wasting Good APB muscle belly firing and good finger cross + Tinel sign over the ulnar nerve at the wrist Vascular: Cap refill brisk ROM: She can make a nice fist and extend all her digits She has a Wartenberg sign, but now can actively bring the small finger into adduction against the ring finger No swelling or erythema Patient feels her small finger is shrinking No subluxation of extensor tendons with ROM Nerve Conduction Study: Right-side only IMPRESSION: 1. [id number]-fm-[id number] right ulnar neuropathy in wrist. 2. Mild right median neuropathy across carpal tunnel. Beka Frost MD 07/29/2023 Radiographs: 3 views of the right hand from 07/15/23 were reviewed by me today in clinic. They show no fractures or dislocations. She has some basal joint osteoarthritis. No significant radiographic abnormalities involving the 4th or 5th rays from the wr ist joint out to the digits. Psych Appearance: grossly normal Affect: normal affect Attitude: cooperative Assessment & Plan Assessment & Plan (1) Hand pain, right: Code(s): M79.641 - Pain in right hand Category: Medical (2) Stiffness of right hand joint: Code(s): M25.641 - Stiffness of right hand, not elsewhere classified Category: Medical (3) Carpal tunnel syndrome of right wrist: Code(s): G56.01 - Carpal tunnel syndrome, right upper limb Category: Medical (4) Cubital tunnel syndrome on right: Code(s): G56.21 - Lesion of ulnar nerve, right upper limb Category: Medical (5) Localized primary osteoarthritis of carpometacarpal joint of right thumb: Code(s): M18.11 - Unilateral primary osteoarthritis of first carpometacarpal joint, right hand Category: Medical Plan Assessment & Plan: 1. Right ulnar-sided hand pain Appears secondary to IV infiltration and hematoma DOI: 02/06/24 Recovery took 4+ weeks, per patient I educated her about these conditions No conservative treatment options indicated at this time. I do not think there is any possible injection that would benefit her and help relieve her pain. I discussed activity modification, I recommend she work on ROM exercises, desensitization, and normalizing hand function at home Good function of EDC tendons and wrist extensors at this time, and no pain with testing of these tendons against resistance. 2. Right carpal tunnel syndrome, mild Symptoms intermittent and occasional throughout the week, improved from prior appointment 3. Right ulnar neuropathy at the wrist, mild-moderate Note, ulnar neuropathy seen at the wrist on NCS done on 07/29/23 Symptoms intermittent, but daily, primarily affecting the small fingertip The plan is to take the patient to the operating room sometime on 11/20/23 for the following procedures: 1. Right carpal tunnel release, under general 2. Right ulnar nerve release at the wrist, under general We should check her carpal tunnel symptoms at her pre-op appointment, to determine whether or not she may need a carpal tunnel release Note: This patient appears to have a fairly long history with Dr. Fry. She is S/P right middle and ring finger trigger fingers. She is also reportedly S/P a right medial epicondylar debridement. It is unclear whether not she had a cubital tunnel release or transposition, though probably not. 4. Right basal joint osteoarthritis I educated her about this condition I discussed treatment options, including possible injections I discussed activity modification, they should limit or avoid any heavy or repetitive pinching or gripping activities Scribed for Marisol Cagle MD by Keyon Manzo, nurses medical assistants phlebotomists, on 10/01/23 at 11:30 AM, EST. Scribe Plan - Not visible on output: Scribed for Marisol Cagle MD by Keyon Manzo nurses medical assistants phlebotomists, on [ ] at [ ], EST. Coding Level of Care Code Est Pt Level 4 (11639) Diagnoses Hand pain, right M79.641 Stiffness of right hand joint M25.641 Carpal tunnel syndrome of right wrist G56.01 Cubital tunnel syndrome on right G56.21 Localized primary osteoarthritis of carpometacarpal joint of right thumb M18.11
== END 2023-10-01 11:41 | disposition home or self-care (01) ==
PROVIDERS: PCP Nurse Practitioner Family; Visit Provider Orthopaedic Surgery
DX: G56.01 Carpal tunnel syndrome, right upper limb (principal); G56.21 Lesion of ulnar nerve, right upper limb; M79.641 Pain in right hand; M25.641 Stiffness of right hand, not elsewhere classified; M18.11 Unilateral primary osteoarthritis of first carpometacarpal joint, right hand
CPT/HCPCS: 99214

== ENCOUNTER 2023-10-08 13:25 | Outpatient (AMB) | payer MEDICARE, SELFPAY ==
[2023-10-08 13:28] VITALS: BP 132/78; PULSE 83; O2SAT 97; BMI 32.5
--- NOTE | 2023-10-08 13:28 | A.OFFPC_ITS ---
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 Accompanied by: Self / Same As Patient Allergies dexlansoprazole [From DEXILANT] Allergy (Severe, Verified 10/08/23 13:35) dizziness, change in HR risedronate sodium [From ACTONEL] Allergy (Severe, Verified 10/08/23 13:35) chest discomfort Jdrlpnr-VGG-YbM Reductase Inhibitor [GRNEKUU-ISZ-EYK REDUCTASE INHIBITOR] Allergy (Severe, Verified 10/08/23 13:35) JOINT PAIN tramadol [TRAMADOL] Allergy (Severe, Verified 10/08/23 13:35) THROAT TIGHTNESS amlodipine [AMLODIPINE] Allergy (Intermediate, Verified 10/08/23 13:35) PALIPITATIONS Atrovent Allergy (Intermediate, Verified 10/08/23 13:35) Cough baclofen [BACLOFEN] Allergy (Intermediate, Verified 10/08/23 13:35) LETHARGY Beta-Blockers (Beta-Adrenergic Bloc Allergy (Intermediate, Verified 10/08/23 13:35) BRADYCARDIA budesonide [From SYMBICORT] Allergy (Intermediate, Verified 10/08/23 13:35) HOARSENESS Chocolate Allergy (Intermediate, Verified 10/08/23 13:35) GERD ezetimibe [From ZETIA] Allergy (Intermediate, Verified 10/08/23 13:35) JOINT PAIN, ELEVATED CPK fluticasone [From ADVAIR DISKUS] Allergy (Intermediate, Verified 10/08/23 13:35) HTN glucosamine Allergy (Intermediate, Verified 10/08/23 13:35) LE edema ibandronate sodium [From BONIVA] Allergy (Intermediate, Verified 10/08/23 13:35) CHEST PAIN latex [LATEX] Allergy (Intermediate, Verified 10/08/23 13:35) RASH-SENSITIVITY lisinopril [LISINOPRIL] Allergy (Intermediate, Verified 10/08/23 13:35) COUGH, really bad cough meloxicam [From MOBIC] Allergy (Intermediate, Verified 10/08/23 13:35) GI UPSET mometasone furoate [From DULERA] Allergy (Intermediate, Verified 10/08/23 13:35) COUGH niacin Allergy (Intermediate, Verified 10/08/23 13:35) Flushing Penicillins [PENICILLINS] Allergy (Intermediate, Verified 10/08/23 13:35) RASH pregabalin [From LYRICA] Allergy (Intermediate, Verified 10/08/23 13:35) GERD flare up raloxifene [From EVISTA] Allergy (Intermediate, Verified 10/08/23 13:35) GERD rofecoxib [From Vioxx] Allergy (Intermediate, Verified 10/08/23 13:35) ankle swelling salmeterol [From ADVAIR DISKUS] Allergy (Intermediate, Verified 10/08/23 13:35) HTN scallops [SCALLOPS] Allergy (Intermediate, Verified 10/08/23 13:35) NAUSEA & VOMITING sertraline [From ZOLOFT] Allergy (Intermediate, Verified 10/08/23 13:35) SKIN CRAWLING spironolactone [SPIRONOLACTONE] Allergy (Intermediate, Verified 10/08/23 13:35) RASH, ?? psoriasis strawberry [STRAWBERRY] Allergy (Intermediate, Verified 10/08/23 13:35) ITCHING tiotropium [From SPIRIVA WITH HANDIHALER] Allergy (Intermediate, Verified 10/08/23 13:35) RAW THROAT, pharyngitis verapamil [VERAPAMIL] Allergy (Intermediate, Verified 10/08/23 13:35) IRREGULAR HEARTBEAT esomeprazole [Nexium] Allergy (Mild, Verified 10/08/23 13:35) did not resolve GERD naproxen [From ALEVE] Allergy (Mild, Verified 10/08/23 13:35) FLUSH omeprazole Allergy (Mild, Verified 10/08/23 13:35) did not resolve GERD tacrolimus Allergy (Mild, Verified 10/08/23 13:35) Rash adhesive [ADHESIVE] Allergy (Unknown, Verified 10/08/23 13:35) RASH doxycycline [DOXYCYCLINE] Allergy (Unknown, Verified 10/08/23 13:35) SEVERE NOYOLA, HEARTBURN, joint pain gabapentin [From NEURONTIN] Allergy (Unknown, Verified 10/08/23 13:35) leg swelling, SOB metoclopramide [From REGLAN] Allergy (Unknown, Verified 10/08/23 13:35) LETHARGY monosodium glutamate [MSG] Allergy (Unknown, Verified 10/08/23 13:35) HEADACHE, increased HR lifitegrast [From Xiidra] Allergy (Verified 10/08/23 13:35) blurred vision, headache, eye swelling metoprolol Adverse Reaction (Severe, Verified 10/08/23 13:35) Severe bradycardia alendronate sodium [From Fosamax] Adverse Reaction (Intermediate, Verified 10/08/23 13:35) Joint Pain amitriptyline Adverse Reaction (Intermediate, Verified 10/08/23 13:35) Agitated cyclosporine [From Cequa] Adverse Reaction (Intermediate, Verified 10/08/23 13:35) Eye Swelling fluticasone furoate [From Trelegy Ellipta] Adverse Reaction (Intermediate, Verified 10/08/23 13:35) asthma exacerbation perfluorohexyloctane [From Miebo] Adverse Reaction (Intermediate, Verified 10/08/23 13:35) Eye Swelling tobramycin [From Tobrex] Adverse Reaction (Intermediate, Verified 10/08/23 13 :35) Eye Swelling umeclidinium [From Trelegy Ellipta] Adverse Reaction (Intermediate, Verified 10/08/23 13:35) asthma exacerbation vilanterol [From Trelegy Ellipta] Adverse Reaction (Intermediate, Verified 10/08/23 13:35) asthma exacerbation azelastine Adverse Reaction (Mild, Verified 10/08/23 13:35) Gastrointestinal Upset hi Adverse Reaction (Intermediate, Uncoded 10/08/23 13:35) Itchy Eyes Sulindac Adverse Reaction (Intermediate, Uncoded 10/08/23 13:35) Nausea, pain Tobacco use date assessed: 03/19/23 Dental Screening Dental Screen Date: 03/19/23 HPI follow up on labs HPI Details pt reports over a year ago she noticed the ceiling tiles, wet with moisture, black mold . Around this time, she reported going home with headaches, which would get better after approx 2 hrs after being home. Pt further reported itchy eye, a runny nose, and a slight cough since last year as well (while at work). Pt is out of work until this is fixed. Pt will follow up with her digital marketing manager. Pt denies any fevers, chills, N/V. Recent labs were quite impressive [facility] Medical History (Updated 10/08/23 @ 14:31 by PEPE Mcmahon) Esophageal spasm Hx of carcinoma of bladder Bladder carcinoma History of trigger finger Right groin pain Cervical radiculitis Chronic sinusitis COVID-19 vaccine administered Trigger finger GERD (gastroesophageal reflux disease) FRANCESCA (obstructive sleep apnea) CAD (coronary artery disease) History of primary hyperparathyroidism Non-toxic multinodular goiter Osteoporosis Pulmonary nodules H/O gastroesophageal reflux (GERD) HLD (hyperlipidemia) HTN (hypertension) COPD (chronic obstructive pulmonary disease) Asthma History of aneurysm Migraine Depression PTSD (post-traumatic stress disorder) History of panic attacks Right inguinal hernia Anxiety Umbilical pain Edema Dizziness History of deviated nasal septum Medial epicondylitis of left elbow Fusion of spine, cervical region Surgical History Hx of cystoscopy H/O cervical spine surgery Hx of hand surgery Hx of right inguinal hernia repair History of hernia repair Hx of colonoscopy History of esophagogastroduodenoscopy (EGD) S/P repair of paraesophageal hernia H/O decompression of ulnar nerve Status post ablation of incompetent vein using laser History of cardiac catheterization History of eyelid surgery History of appendectomy History of parathyroidectomy History of cholecystectomy Hx of cataract surgery Hx of shoulder surgery S/P cubital tunnel release S/P arthroscopic surgery of right knee History of lumpectomy of both breasts History of hysterectomy Hx of adenoidectomy Hx of tonsillectomy Hx of eye surgery Family History Father Liver cancer Psoriasis Cancer Mental health disorder Mother Cervical cancer Ovarian cancer Heart attack Substance use disorder Social History Household Members: Children and None Housing: House Alcohol intake: current Alcohol intake frequency: does not drink Patient Tobacco Use Status: Former Tobacco user Tobacco use type: Cigarette e-Cigarette/Vaping Use: Never Used Second Hand Smoke Exposure: No service: No Current occupational status: employed 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 9. Thoughts that you would be better off or of hurting yourself in some way: not at all Source: Developed by Drs. Manas Hilario, Hernando Tony and colleagues, with an educational fidelina from [employer]. Thrive Questionnaire Date Thrive assessed: 03/19/23 I am a: Patient What is your living situation today?: I have a steady place to live Within the past 12 months, did the food you bought not last and you didn't have the money to get more?: Never true Within the past 12 months, did you worry whether your food would run out before you got money to buy more?: Sometimes True Do you have trouble paying for medicines?: No Do you have trouble getting transportation to medical appointments?: No Do you have trouble paying your heating and electricity bill?: No Do you have trouble taking care of your child, family member or friend?: No Do you have trouble with day-to-day activities such as bathing, preparing meals, shopping, managing finances, etc.?: No Are you currently unemployed and looking for a job?: No Are you interested in more education?: No Please select the resources that you would like help with: None Currently or been in a relationship where the following occur: I choose not to answer THRIVE Score: 1 AUDIT C Alcohol Use Questionnaire (AUDIT-C) 1. How often do you have a drink containing alcohol?: Never Total Score: 0 JASPAL-7 AMB Questionnaire JASPAL-7 Date JASPAL - 7 assessed: 03/19/23 Feeling nervous, anxious, or on edge: 2 = More than half the days Not being able to stop or control worryin = More than half the days Worrying too much about different things: 2 = More than half the days Trouble relaxin = More than half the days Being so restless that it is hard to sit still: 0 = Not at all Becoming easily annoyed or irritable: 1 = Several days Feeling afraid as if something awful might happen: 0 = Not at all Total JASPAL-7 score (0-4 normal; 5-9 mild; 10-14 moderate; 15-21 severe): 9 Source: Developed by Lizabeth James Kurt Kroenke and colleagues, with an educational fidelina from [employer]. Review of Systems Const Reports as per HPI Physical exam (Primary Care) Vital Signs: Last Vital Signs Pulse 83 10/08/23 13:28 BP 132/78 10/08/23 13:28 Pulse Ox 97 10/08/23 13:28 Oxygen Delivery Method Room Air 10/08/23 13:28 BMI result Body Mass Index 32.5 Tobacco/Smoking Status: Tobacco use Status Tobacco use date assessed 03/19/23 10/08/23 13:30 Patient Tobacco Use Status Former Tobacco user 10/08/23 13:30 Tobacco use type Cigarette 10/08/23 13:30 e-Cigarette/Vaping Use Never Used 10/08/23 13:30 Thrive Assessment: Date of Thrive Assessment Date Thrive assessed 03/19/23 10/08/23 13:30 Currently or been in a relationship where the following occur: I choose not to answer Const General: cooperative Orientation/consciousness: patient oriented x3 HENMT Other: cerumen to right ear, after ear lavage TM easily seen, no signs of infection Resp Effort & Inspection: normal respiratory effort Auscultation: clear to auscultation bilaterally Cardio Rate: regular rate Rhythm: regular rhythm Heart sounds: S1 normal heart sound present and S2 normal heart sound present Neuro General: patient oriented x3 Psych Appearance: grossly normal Mental Status: mental status grossly normal Speech and movement: Normal speech and movement present Affect: normal affect Attitude: cooperative Thought process: Normal thought process present Thought content: Normal thought content present Insight: Good insight present (Psych) Judgement: Good judgement present (Psych) Office Procedures Cerumen Removal From which ear canal was the cerumen removed: right Removal: irrigation Notes: patient tolerated procedure well and ear canal clear [id number] Irrigation/Lavage Assessment and Plan Assessment & Plan (1) Cerumen debris on tympanic membrane: Code(s): H61.20 - Impacted cerumen, unspecified ear Plan: Ear flushed in office (2) Mold exposure: Code(s): Z77.120 - Contact with and (suspected) exposure to mold (toxic) Plan: Pt will follow up with her digital marketing manager Plan The patient agreed to the use of a medical staff services coordinator for this encounter. Scribed yesenia or PEPE Diaz by lisa Mejía, on 10/08/2023 at 13:50 EST. Coding Level of Care Code Est Pt Level 3 (27524) Diagnoses Cerumen debris on tympanic membrane H61.20 Mold exposure Z77.120 CPT Codes Office Procedure - CPT: 49940-Psn Irrigation/Lavage ([id number])
== END 2023-10-08 14:31 | disposition home or self-care (01) ==
PROVIDERS: PCP Nurse Practitioner Family; Visit Provider Nurse Practitioner Family
DX: H61.21 Impacted cerumen, right ear (principal); Z77.120 Contact with and (suspected) exposure to mold (toxic)
CPT/HCPCS: 69209; 99213

== ENCOUNTER 2023-11-07 09:04 | Outpatient (AMB) | payer MEDICARE, SELFPAY ==
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
== END 2023-11-07 23:03 | disposition home or self-care (01) ==
LOC: HO.HOP 09:04
PROVIDERS: PCP Nurse Practitioner Family; Visit Provider Clinical Nurse Specialist Psychiatric/Mental Health
DX: F43.12 Post-traumatic stress disorder, chronic (principal)
CPT/HCPCS: 90833; 99214

== ENCOUNTER → 2023-11-07 09:04 | Outpatient (BNVA) | payer MEDICARE, SELFPAY | PROVIDERS: PCP Nurse Practitioner Family; Visit Provider Clinical Nurse Specialist Psychiatric/Mental Health | DX: F43.12 Post-traumatic stress disorder, chronic (principal); F32.A Depression, unspecified; Z71.89 Other specified counseling | CPT/HCPCS: 99212 ==

== ENCOUNTER 2023-11-28 15:02 | Outpatient (AMB) | payer MEDICARE, SELFPAY ==
[2023-11-28 15:35] VITALS: BP 128/70; PULSE 70; O2SAT 98; BMI 32.5
--- NOTE | 2023-11-28 15:35 | MHC.OFFVIS ---
Vital Signs 11/28/23 15:35 Height 4 ft 11 in Weight 160 lb 14.999 oz BMI 32.5 BP 128/70 Blood Pressure Location Lt brachial Position Sitting Pulse 70 Pulse Source Pulse Oximeter Pulse Oximetry (%) 98 Oxygen Delivery Method Room Air Intake Visit Reasons: exposure to mold Instrumentation Instructor Required: No Allergies dexlansoprazole [From DEXILANT] Allergy (Severe, Verified 11/28/23 15:38) dizziness, change in HR risedronate sodium [From ACTONEL] Allergy (Severe, Verified 11/28/23 15:38) chest discomfort Cpyuoxf-[id number] Reductase Inhibitor [[id number] REDUCTASE INHIBITOR] Allergy (Severe, Verified 11/28/23 15:38) JOINT PAIN tramadol [TRAMADOL] Allergy (Severe, Verified 11/28/23 15:38) THROAT TIGHTNESS amlodipine [AMLODIPINE] Allergy (Intermediate, Verified 11/28/23 15:38) PALIPITATIONS Atrovent Allergy (Intermediate, Verified 11/28/23 15:38) Cough baclofen [BACLOFEN] Allergy (Intermediate, Verified 11/28/23 15:38) LETHARGY Beta-Blockers (Beta-Adrenergic Bloc Allergy (Intermediate, Verified 11/28/23 15:38) BRADYCARDIA budesonide [From SYMBICORT] Allergy (Intermediate, Verified 11/28/23 15:38) HOARSENESS Chocolate Allergy (Intermediate, Verified 11/28/23 15:38) GERD ezetimibe [From ZETIA] Allergy (Intermediate, Verified 11/28/23 15:38) JOINT PAIN, ELEVATED CPK fluticasone [From ADVAIR DISKUS] Allergy (Intermediate, Verified 11/28/23 15:38) HTN glucosamine Allergy (Intermediate, Verified 11/28/23 15:38) LE edema ibandronate sodium [From BONIVA] Allergy (Intermediate, Verified 11/28/23 15:38) CHEST PAIN latex [LATEX] Allergy (Intermediate, Verified 11/28/23 15:38) RASH-SENSITIVITY lisinopril [LISINOPRIL] Allergy (Intermediate, Verified 11/28/23 15:38) COUGH, really bad cough meloxicam [From MOBIC] Allergy (Intermediate, Verified 11/28/23 15:38) GI UPSET mometasone furoate [From DULERA] Allergy (Intermediate, Verified 11/28/23 15:38) COUGH niacin Allergy (Intermediate, Verified 11/28/23 15:38) Flushing Penicillins [PENICILLINS] Allergy (Intermediate, Verified 11/28/23 15:38) RASH pregabalin [From LYRICA] Allergy (Intermediate, Verified 11/28/23 15:38) GERD flare up raloxifene [From EVISTA] Allergy (Intermediate, Verified 11/28/23 15:38) GERD rofecoxib [From Vioxx] Allergy (Intermediate, Verified 11/28/23 15:38) ankle swelling salmeterol [From ADVAIR DISKUS] Allergy (Intermediate, Verified 11/28/23 15:38) HTN scallops [SCALLOPS] Allergy (Intermediate, Verified 11/28/23 15:38) NAUSEA & VOMITING sertraline [From ZOLOFT] Allergy (Intermediate, Verified 11/28/23 15:38) SKIN CRAWLING spironolactone [SPIRONOLACTONE] Allergy (Intermediate, Verified 11/28/23 15:38) RASH, ?? psoriasis strawberry [STRAWBERRY] Allergy (Intermediate, Verified 11/28/23 15:38) ITCHING tiotropium [From SPIRIVA WITH HANDIHALER] Allergy (Intermediate, Verified 11/28/23 15:38) RAW THROAT, pharyngitis verapamil [VERAPAMIL] Allergy (Intermediate, Verified 11/28/23 15:38) IRREGULAR HEARTBEAT esomeprazole [Nexium] Allergy (Mild, Verified 11/28/23 15:38) did not resolve GERD naproxen [From ALEVE] Allergy (Mild, Verified 11/28/23 15:38) FLUSH omeprazole Allergy (Mild, Verified 11/28/23 15:38) did not resolve GERD tacrolimus Allergy (Mild, Verified 11/28/23 15:38) Rash adhesive [ADHESIVE] Allergy (Unknown, Verified 11/28/23 15:38) RASH doxycycline [DOXYCYCLINE] Allergy (Unknown, Verified 11/28/23 15:38) SEVERE NOYOLA, HEARTBURN, joint pain gabapentin [From NEURONTIN] Allergy (Unknown, Verified 11/28/23 15:38) leg swelling, SOB metoclopramide [From REGLAN] Allergy (Unknown, Verified 11/28/23 15:38) LETHARGY monosodium glutamate [MSG] Allergy (Unknown, Verified 11/28/23 15:38) HEADACHE, increased HR lifitegrast [From Xiidra] Allergy (Verified 11/28/23 15:38) blurred vision, headache, eye swelling metoprolol Adverse Reaction (Severe, Verified 11/28/23 15:38) Severe bradycardia alendronate sodium [From Fosamax] Adverse Reaction (Intermediate, Verified 11/28/23 15:38) Joint Pain amitriptyline Adverse Reaction (Intermediate, Verified 11/28/23 15:38) Agitated cyclosporine [From Cequa] Adverse Reaction (Intermediate, Verified 11/28/23 15:38) Eye Swelling fluticasone furoate [From Trelegy Ellipta] Adverse Reaction (Intermediate, Verified 11/28/23 15:38) asthma exacerbation perfluorohexyloctane [From Miebo] Adverse Reaction (Intermediate, Verified 11/28/23 15:38) Eye Swelling tobramycin [From Tobrex] Adverse Reaction (Intermediate, Verified 11/28/23 15:38) Eye Swelling umeclidinium [From Trelegy Ellipta] Adverse Reaction (Intermediate, Verified 11/28/23 15:38) asthma exacerbation vilanterol [From Trelegy Ellipta] Adverse Reaction (Intermediate, Verified 11/28/23 15:38) asthma exacerbation azelastine Adverse Reaction (Mild, Verified 11/28/23 15:38) Gastrointestinal Upset hi Adverse Reaction (Intermediate, Uncoded 11/28/23 15:38) Itchy Eyes Sulindac Adverse Reaction (Intermediate, Uncoded 11/28/23 15:38) Nausea, pain HPI Comments Details: The patient is a 73-year-old woman with history of asthma in addition to hiatal hernia. Overall her respiratory symptoms have been stable and she was able to get off her maintenance inhaler. She has been having symptoms and she feels is mainly due to hiatal hernia. She has been seen closely by GI. They tried multiple medications in addition to reflux diet. She did try Reglan the resulted in significant side effects. I did tell her that there are other promotility agents she can consider. She understands that having underlying reflux and hiatal hernia can result in worsening respiratory symptoms due to the microaspiration. I did provide the patient again with another reflux diet to make sure she is following the proper diet. We did review her last CT scan of the chest that demonstrated stable pulmonary nodules which was done at [facility]. Otherwise patient is without any other complaints. She still having significant reflux disease and regurgitation. She is followed closely by GI and now going to be followed up with surgery for possible surgical intervention for her persistent symptoms. We again talked about promotility agents, but, does not feel like dose going to work due to the fact that she has a pretty complicated hiatal hernia. We did again review her pulmonary nodules which appear to be stable for many years which is reassuring. 04/24/2022 the patient is here for pulmonary follow-up visit. Overall the patient is doing fairly well. She has not had to use her inhalers much. She does have a rescue inhaler that she can use as needed. She also has episodes of chest tightness mainly in the substernal area. Sometimes she associates it with her reflux disease. She continues to be on the medication for the reflux and Country knows to follow reflux diet. Although she continues to have symptoms. Explained to her that sometimes the reflux can result in micro aspirations into the lungs. She does have some changes primarily in the left lower lobe that are suspicious for bronchiolitis which could be due to aspiration. Her last CT scan of the chest was back in April 2021 demonstrating some new 4 mm pulmonary nodules which are subsolid in nature. The other nodules were stable. Will have the patient start CPT with flutter valve to try to clear any mucus at all the airways and plan to repeat the CT scan in 6 months which be 18 month follow-up CT scan for the new nodules. 10/30/2022 a the patient is here for pulmonary follow-up visit. The patient is healing in recovering after having cervical surgery the anterior approach. She had back in June. After she lost her voice for some time. She was having hard time with her breathing or shortness of breath and also chest pain. She was given 2 days of Decadron but no more because the recovery process. The patient was evaluated by ENT and had a laryngoscopy without any significant findings. They recommended speech therapy and also a barium modified barium swallow. She then saw GI and switched over to a regular barium swallow. Question of the metal plate affecting her swallow. As far as her breathing has been okay she has not had to use her rescue inhaler. Although she is concerned about the chest pain. The patient has been sleeping on a positional bed and she does have sleep apnea but she has been maintaining positional therapy. She has been on omeprazole and also Carafate for her reflux disease. We talked about the importance of a reflux diet. Also at the barium swallows okay she can consider a promotility agent. As far as her pulmonary nodules are stable. She does have some bronchitis as within the airways themselves but otherwise clinically stable. After she gets the barium swallow she was having a message for further recommendations. 01/25/2023 the patient is here for a pulmonary follow-up visit. She is doing relatively well from a respiratory status. She has been using the Xopenex as needed. Typically she has reflux issues is subsequently the reflux may exacerbate her breathing. Her rescue inhaler does help adjust partially. She is wondering if she can go back on QVAR. She were seemed to also help her. She is changing insurances so therefore may be better covered. I will go ahead and set of the QVAR again that she can use as prescribed. In addition to that she will be seen the GI doctor soon. She still having issues with reflux and also having issues with dysphagia. We also looked at her last CT scan that was done back in September 2022. It is reassuring that her pulmonary nodules are stable. She did have some slight inflammation of the right upper lung area suggesting some airways disease but it was minimal. No further imaging at this time. We will have her discuss additional imaging during the next visit. 04/10/2023 the patient is here for sick visit. Apparently she started developing worsening respiratory symptoms last 7-10 days. She was having cough in addition to shortness of breath and chest tightness. She went to an urgent care where she is found to have significant crackles on exam looked more than right suggesting of an atypical pneumonia. The patient is given a course of Z-Nilton in addition to short course of prednisone. She is already feeling better. Although she still feels some cough and some minimal wheezing. She has been using her inhalers. We did examine her lungs in her crackles are significantly better. She just has some trace crackles on the left lung now. Will go in request a chest x-ray to assess the area. If the area looks significantly abnormal then I will call her to give her additional medications. But at this point she would like to hold off on additional antibiotics. She also does not do well with prednisone. She will continue using her respiratory medications. she is having issues with her esophagus. She does have esophageal stricture and she did require dilation back in January of 2023. it was recommended she have a repeat procedure specially since she had significant scarring of the esophagus. I do believe that she is okay at this point and she may be able to proceed with the procedure. Since she is just now recovering from this illness I would least recommend she can wait least 2 weeks before having any interventions. 08/13/2023 the patient is here for a pulmonary follow-up visit. Overall she is doing okay from respiratory status. Although she started developing some increased nasal congestion sinus pressure and postnasal drip. She is feeling like she started to develop component of sinusitis. She is concerned because she is going to undergo surgery next week. 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 She will undergo procedure under anesthesia. Clinically she is doing well from a respiratory status and she is able to proceed with therapy. In the meantime will start her on a Z-Nilton to treat her in case symptoms worsen over the weekend she has been having issues with her inhalers. QVAR seems to work the best for her. Will go ahead and resend a prescription to pharmacy. She does not tolerate powdered inhalers because the Irritate the throat. The patient continues with the reflux diet. as far as imaging studies the patient had a chest x-ray back in 04/30/2023 without any acute disease. She also had a CT scan back in 2022 demonstrating stable pulmonary nodules and some minimal airways disease. Will follow-up in 6 months and discuss any additional testing if warranted. 11/28/2023 the patient is here for a pulmonary follow-up visit. Again she is complaining of nasal congestion. The last time was back in August when she had it. She did respond well to the Z-Nilton. She has a lot of intolerance to medications. Therefore will try another course to see if that improves her symptoms since it worked 1st time. In addition to that the patient has been using her respiratory therapy with good effect. She has not required any prednisone. She is having a little allergy symptoms. Therefore acting her upper and lower respiratory tract. Reasonable to do allergy testing further blood work at this time. [facility] Medical History (Updated 11/30/23 @ 22:23 by Harman Cleary MD) Esophageal spasm Hx of carcinoma of bladder Bladder carcinoma History of trigger finger Right groin pain Cervical radiculitis Chronic sinusitis COVID-19 vaccine administered Trigger finger GERD (gastroesophageal reflux disease) FRANCESCA (obstructive sleep apnea) CAD (coronary artery disease) History of primary hyperparathyroidism Non-toxic multinodular goiter Osteoporosis Pulmonary nodules H/O gastroesophageal reflux (GERD) HLD (hyperlipidemia) HTN (hypertension) COPD (chronic obstructive pulmonary disease) Asthma History of aneurysm Migraine Depression PTSD (post-traumatic stress disorder) History of panic attacks Right inguinal hernia Anxiety Umbilical pain Edema Dizziness History of deviated nasal septum Medial epicondylitis of left elbow Fusion of spine, cervical region Surgical History Hx of cystoscopy H/O cervical spine surgery Hx of hand surgery Hx of right inguinal hernia repair History of hernia repair Hx of colonoscopy History of esophagogastroduodenoscopy (EGD) S/P repair of paraesophageal hernia H/O decompression of ulnar nerve Status post ablation of incompetent vein using laser History of cardiac catheterization History of eyelid surgery History of appendectomy History of parathyroidectomy History of cholecystectomy Hx of cataract surgery Hx of shoulder surgery S/P cubital tunnel release S/P arthroscopic surgery of right knee History of lumpectomy of both breasts History of hysterectomy Hx of adenoidectomy Hx of tonsillectomy Hx of eye surgery Family History Father Liver cancer Psoriasis Cancer Mental health disorder Mother Cervical cancer Ovarian cancer Heart attack Substance use disorder Social History Household Members: Children and None Housing: House Alcohol intake: current Alcohol intake frequency: does not drink Patient Tobacco Use Status: Former Tobacco user Tobacco use type: Cigarette e-Cigarette/Vaping Use: Never Used Second Hand Smoke Exposure: No service: No Current occupational status: employed 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, 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 Cognitive needs: No Hearing needs: No Vision needs: No Review of Systems Const Reports body aches, Denies chills, Denies fatigue and Denies fever(s) ENT Reports otalgia (R ear), Reports nasal congestion, Reports nasal discharge, Reports sinus pressure, Denies sore throat and Denies throat swelling Card Denies chest pain, Denies rapid heart rate and Reports dyspnea Resp Reports chest congestion, Reports cough, Denies hemoptysis, Denies excessive phlegm production, Reports dyspnea and Reports wheezing GI Denies abdominal pain Reports as per HPI and Reports hematuria Musc Reports back pain Endo Denies fatigue Aller/Immun Denies throat swelling and Reports wheezing Physical Exam Vital Signs: Last Vital Signs Pulse 70 11/28/23 15:35 BP 128/70 11/28/23 15:35 Pulse Ox 98 11/28/23 15:35 Oxygen Delivery Method Room Air 11/28/23 15:35 BMI result Body Mass Index 32.5 Const General: alert Eyes Pupils: Equal, round and reactive pupils present Neck Neck: Yes normal visual inspection, Yes full ROM and Yes no lymphadenopathy Chest Chest palpation & inspection: normal inspection of the chest Resp Auscultation: clear to auscultation bilaterally, rales on the left, no wheezes and diminished lung sounds Cardio Rate: regular rate Rhythm: regular rhythm Heart sounds: S1 normal heart sound present and S2 normal heart sound present GI Palpation (GI): Soft to palpation and nontender Auscultation: normal bowel sounds General: Yes no CVA tenderness Back/Spine/Pelvis Back: no CVA tenderness Skin General skin exam: rashes and/or lesions noted Neuro Cranial nerves: Yes Equal, round and reactive pupils present Assessment & Plan Assessment & Plan (1) FRANCESCA (obstructive sleep apnea): Code(s): G47.33 - Obstructive sleep apnea (adult) (pediatric) Category: Medical (2) Dyspnea on exertion: Code(s): R06.00 - Dyspnea, unspecified Category: Medical (3) Pulmonary nodules: Code(s): R91.8 - Other nonspecific abnormal finding of lung field Category: Medical (4) GERD (gastroesophageal reflux disease): Code(s): K21.9 - Gastro-esophageal reflux disease without esophagitis Category: Medical Qualifiers: Esophagitis presence: without esophagitis Qualified Code(s): K21.9 - Gastro-esophageal reflux disease without esophagitis (5) Allergies: Code(s): T78.40XA - Allergy, unspecified, initial encounter Category: Medical Qualifiers: Encounter type: initial encounter Qualified Code(s): T78.40XA - Allergy, unspecified, initial encounter Plan Continue short-acting beta agonist as needed (xopenex) QVAR singulair Reflux diet Positional therapy avoiding sleeping back Bloodwork/allergy testing start [facility] follow-up in 6 months Orders: Orders Immunoglobulin E 11/28/23 T78.40XA - Allergy, unspecified, initial encounter Complete Blood Count Auto Diff 11/28/23 T78.40XA - Allergy, unspecified, initial encounter Resp Allergy Profile Region I 11/28/23 R91.1 - Solitary pulmonary nodule, T78.40XA - Allergy, unspecified, initial encounter Erythrocyte Sedimentation Rate 11/28/23 T78.40XA - Allergy, unspecified, initial encounter Medications: New azithromycin 500 mg PO DAILY 5 days 5 tabs 0RF Coding Level of Care Code Est Pt Level 4 (64960) Diagnoses FRANCESCA (obstructive sleep apnea) G47.33 Dyspnea on exertion R06.00 Pulmonary nodules R91.8 Gastroesophageal reflux disease without esophagitis K21.9 Esophagitis presence: without esophagitis Allergy, initial encounter T78.40XA Encounter type: initial encounter Time Spent (min) 17
== END 2023-11-28 16:01 | disposition home or self-care (01) ==
PROVIDERS: PCP Nurse Practitioner Family; Visit Provider Hospitalist
DX: G47.33 Obstructive sleep apnea (adult) (pediatric) (principal); R06.00 Dyspnea, unspecified; R91.8 Other nonspecific abnormal finding of lung field; K21.9 Gastro-esophageal reflux disease without esophagitis; T78.40XA Allergy, unspecified, initial encounter
CPT/HCPCS: 99214

== ENCOUNTER → 2023-11-28 15:02 | Outpatient (BNVA) | payer MEDICARE, SELFPAY | PROVIDERS: PCP Nurse Practitioner Family; Visit Provider Hospitalist | DX: G47.33 Obstructive sleep apnea (adult) (pediatric) (principal); R06.00 Dyspnea, unspecified; R91.8 Other nonspecific abnormal finding of lung field; K44.9 Diaphragmatic hernia without obstruction or gangrene; K21.9 Gastro-esophageal reflux disease without esophagitis; T78.40XA Allergy, unspecified, initial encounter | CPT/HCPCS: 99212 ==

== ENCOUNTER 2023-12-05 06:54 | Outpatient (REF) | payer MEDICARE, SELFPAY ==
[2023-12-05 10:07] LABS: MANUAL DIFF FLAG NO
[2023-12-05 10:12] LABS: Basophils Absolute Auto 0.1 X10*3/uL (0.0-0.2); Basophils Percent Auto 1.8 % (0-2); Eosinophils Absolute Auto 0.2 X10*3/uL (0.0-0.4); Hematocrit 41.1 % (37.0-47.0); Hemoglobin 13.3 g/dl (12.0-16.0); Imm Gran Abs Auto 0.01 X10*3/uL (0.00-0.03); Imm Gran Pct Auto 0.2 % (0.0-0.4); Lymphocytes Absolute Auto 1.6 X10*3/uL (1.2-4.9); Lymphocytes Percent Auto 28.6 % (20-40); Mean Corpuscular HGB Conc 32.4 g/dl (31.0-35.0); Mean Corpuscular Hemoglobin 29.4 pg (27.0-33.0); Mean Corpuscular Volume 90.7 fL (80.0-98.0); Mean Platelet Volume 10.7 fL (9.4-12.3); Monocytes Absolute Auto 0.4 X10*3/uL (0.1-1.2); Monocytes Percent Auto 6.8 % (2-11); Neutrophils Absolute Auto 3.4 x10*3/uL (2.0-8.3); Neutrophils Percent Auto 59.6 % (45-73); Platelet Count 320 X10*3/uL (160-400); Red Blood Count 4.53 X10*6/uL (4.20-5.50); Red Cell Distribution Width 12.5 % (11.0-16.0); White Blood Count 5.7 X10*3/uL (4.8-10.8)
[2023-12-05 10:44] LABS: Erythrocyte Sedimentation Rate 9 MM/HR (0-20)
[2023-12-05 10:56] LABS: Creatinine, mg/dL 61.81
[2023-12-05 11:14] LABS: Creatinine, 24Hr Urine 0.8 G/Day (1.0-2.0); Total Volume 24 Hour Urine 1250 mL
[2023-12-08 16:13] LABS: Calcium, 24 Hr Urine 8 mg/24 h; Calcium/Creatinine Ratio 10 mg/g creat (30-275); Creatinine 24Hr Urine 0.76 g/24 h (0.50-2.15)
[2023-12-17 11:11] LABS: Class Birch 0/1; Class Cat Dander 1; E001 - IgE Cat Dander 0.49 (H); T003 IgE Common Silver Birch 0.10 (H)
[2023-12-17 11:12] LABS: Class Oak 0/1; T007 - IgE Oak, White 0.21 (H)
[2023-12-17 11:15] LABS: Class Cockroach 0; Class Dermatophagoides farinae 0; Class Dog Dander 0; Class Mouse Urine Protein 0; D002 - IgE D farinae <0.10; E005 - IgE Dog Dander <0.10; E072-IgE Mouse Urine <0.10; I006-IgE Cockroach, German <0.10; Immunoglobulin E 51
[2023-12-17 11:17] LABS: Class Alternaria alternata 0; Class Aspergillus fumigatus 0; Class Cladosporium herbarum 0; Class Common Ragweed 0; Class Cottonwood 0; Class Mountain Cedar 0; Class Mugwort 0; Class Sycamore 0; Class Timothy Grass 0; Class Walnut Tree 0; Class White Ash 0; Class White Mulberry 0; G006 - IgE Timothy Grass <0.10; M002 - IgE Cladosporium herbar <0.10; M003 - IgE Aspergillus fumigat <0.10; M006 - IgE Alternaria alternat <0.10; T006 - IgE Cedar, Mountain <0.10; T010 - IgE Walnut <0.10; T011 - IgE Maple Leaf Sycamore <0.10; T014 - IgE Cottonwood <0.10; T015 - IgE Ash, White <0.10; T070 - IgE White Mulberry <0.10; W001 - IgE Ragweed, Short <0.10; W006 - IgE Mugwort <0.10
[2023-12-17 11:18] LABS: Class Bermuda Grass 0; Class Derm. pterony 0; Class Elm 0; Class Maple Box Elder 0; Class Penicillium crysogenum 0; Class Rough Pigweed 0; Class Sheep Sorrel 0; D001 IgE D pteronyssinus <0.10; G002 IgE Bermuda Grass <0.10; M001 IgE Penicillium chrysogen <0.10; T001 IgE Maple/Box Elder <0.10; T008 IgE Elm, American <0.10; W014 IgE Pigweed, Common <0.10; W018 IgE Sheep Sorrel <0.10
== END 2023-12-05 06:55 | disposition home or self-care (01) ==
LOC: HO.HMGCLDS 06:54
PROVIDERS: PCP Nurse Practitioner Family; Referring Provider Hospitalist; Visit Provider Internal Medicine Endocrinology, Diabetes & Metabolism
DX: M81.0 Age-related osteoporosis without current pathological fracture (principal); T78.40XA Allergy, unspecified, initial encounter; R91.1 Solitary pulmonary nodule; R35.0 Frequency of micturition; C67.9 Malignant neoplasm of bladder, unspecified; Z87.891 Personal history of nicotine dependence; Z13.9 Encounter for screening, unspecified; Z98.890 Other specified postprocedural states
CPT/HCPCS: 36415; 52000; 81003; 82340; 82570; 82785; 85025; 85652; 86003

== ENCOUNTER 2023-12-05 10:08 | Outpatient (AMB) | payer MEDICARE, SELFPAY ==
--- NOTE | 2023-12-05 10:15 | A.OFFVIS_ITS ---
Intake Visit Reasons: cysto Intake Note: Patient is present for Cystoscopy Urology Medication:NONE Antibiotic Allergy:PENICILLIN,DOXYCYCLINE, GABAPENTIN, TOBRAMYCIN, Blood Thinner:ASPIRIN Gas Refrigerator Servicer Required: No Allergies dexlansoprazole [From DEXILANT] Allergy (Severe, Verified 12/05/23 10:17) dizziness, change in HR risedronate sodium [From ACTONEL] Allergy (Severe, Verified 12/05/23 10:17) chest discomfort Drjaekk-KJX-ExW Reductase Inhibitor [[id number] REDUCTASE INHIBITOR] Allergy (Severe, Verified 12/05/23 10:17) JOINT PAIN tramadol [TRAMADOL] Allergy (Severe, Verified 12/05/23 10:17) THROAT TIGHTNESS amlodipine [AMLODIPINE] Allergy (Intermediate, Verified 12/05/23 10:17) PALIPITATIONS Atrovent Allergy (Intermediate, Verified 12/05/23 10:17) Cough baclofen [BACLOFEN] Allergy (Intermediate, Verified 12/05/23 10:17) LETHARGY Beta-Blockers (Beta-Adrenergic Bloc Allergy (Intermediate, Verified 12/05/23 10:17) BRADYCARDIA budesonide [From SYMBICORT] Allergy (Intermediate, Verified 12/05/23 10:17) HOARSENESS Chocolate Allergy (Intermediate, Verified 12/05/23 10:17) GERD ezetimibe [From ZETIA] Allergy (Intermediate, Verified 12/05/23 10:17) JOINT PAIN, ELEVATED CPK fluticasone [From ADVAIR DISKUS] Allergy (Intermediate, Verified 12/05/23 10:17) HTN glucosamine Allergy (Intermediate, Verified 12/05/23 10:17) LE edema ibandronate sodium [From BONIVA] Allergy (Intermediate, Verified 12/05/23 10:17) CHEST PAIN latex [LATEX] Allergy (Intermediate, Verified 12/05/23 10:17) RASH-SENSITIVITY lisinopril [LISINOPRIL] Allergy (Intermediate, Verified 12/05/23 10:17) COUGH, really bad cough meloxicam [From MOBIC] Allergy (Intermediate, Verified 12/05/23 10:17) GI UPSET mometasone furoate [From DULERA] Allergy (Intermediate, Verified 12/05/23 10:17) COUGH niacin Allergy (Intermediate, Verified 12/05/23 10:17) Flushing Penicillins [PENICILLINS] Allergy (Intermediate, Verified 12/05/23 10:17) RASH pregabalin [From LYRICA] Allergy (Intermediate, Verified 12/05/23 10:17) GERD flare up raloxifene [From EVISTA] Allergy (Intermediate, Verified 12/05/23 10:17) GERD rofecoxib [From Vioxx] Allergy (Intermediate, Verified 12/05/23 10:17) ankle swelling salmeterol [From ADVAIR DISKUS] Allergy (Intermediate, Verified 12/05/23 10:17) HTN scallops [SCALLOPS] Allergy (Intermediate, Verified 12/05/23 10:17) NAUSEA & VOMITING sertraline [From ZOLOFT] Allergy (Intermediate, Verified 12/05/23 10:17) SKIN CRAWLING spironolactone [SPIRONOLACTONE] Allergy (Intermediate, Verified 12/05/23 10:17) RASH, ?? psoriasis strawberry [STRAWBERRY] Allergy (Intermediate, Verified 12/05/23 10:17) ITCHING tiotropium [From SPIRIVA WITH HANDIHALER] Allergy (Intermediate, Verified 12/05/23 10:17) RAW THROAT, pharyngitis verapamil [VERAPAMIL] Allergy (Intermediate, Verified 12/05/23 10:17) IRREGULAR HEARTBEAT esomeprazole [Nexium] Allergy (Mild, Verified 12/05/23 10:17) did not resolve GERD naproxen [From ALEVE] Allergy (Mild, Verified 12/05/23 10:17) FLUSH omeprazole Allergy (Mild, Verified 12/05/23 10:17) did not resolve GERD tacrolimus Allergy (Mild, Verified 12/05/23 10:17) Rash adhesive [ADHESIVE] Allergy (Unknown, Verified 12/05/23 10:17) RASH doxycycline [DOXYCYCLINE] Allergy (Unknown, Verified 12/05/23 10:17) SEVERE NOYOLA, HEARTBURN, joint pain gabapentin [From NEURONTIN] Allergy (Unknown, Verified 12/05/23 10:17) leg swelling, SOB metoclopramide [From REGLAN] Allergy (Unknown, Verified 12/05/23 10:17) LETHARGY monosodium glutamate [MSG] Allergy (Unknown, Verified 12/05/23 10:17) HEADACHE, increased HR lifitegrast [From Xiidra] Allergy (Verified 12/05/23 10:17) blurred vision, headache, eye swelling metoprolol Adverse Reaction (Severe, Verified 12/05/23 10:17) Severe bradycardia alendronate sodium [From Fosamax] Adverse Reaction (Intermediate, Verified 12/05/23 10:17) Joint Pain amitriptyline Adverse Reaction (Intermediate, Verified 12/05/23 10:17) Agitated cyclosporine [From Cequa] Adverse Reaction (Intermediate, Verified 12/05/23 10:17) Eye Swelling fluticasone furoate [From Trelegy Ellipta] Adverse Reaction (Intermediate, Verified 12/05/23 10:17) asthma exacerbation perfluorohexyloctane [From Miebo] Adverse Reaction (Intermediate, Verified 12/05/23 10:17) Eye Swelling tobramycin [From Tobrex] Adverse Reaction (Intermediate, Verified 12/05/23 10:17) Eye Swelling umeclidinium [From Trelegy Ellipta] Adverse Reaction (Intermediate, Verified 12/05/23 10:17) asthma exacerbation vilanterol [From Trelegy Ellipta] Adverse Reaction (Intermediate, Verified 12/05/23 10:17) asthma exacerbation azelastine Adverse Reaction (Mild, Verified 12/05/23 10:17) Gastrointestinal Upset hi Adverse Reaction (Intermediate, Uncoded 12/05/23 10:17) Itchy Eyes Sulindac Adverse Reaction (Intermediate, Uncoded 12/05/23 10:17) Nausea, pain HPI Comments Details: 12/05/23--Adali is a 73-year-old here for 3 month what small or surveillance office cystoscopy. Cystoscopy findings: No recurrent bladder lesions mild to moderate bladder trabeculations. Review of chart: 09/10/23--Adali is status post cystoscopy TURBT. I have reviewed pathology, low- grade noninvasive bladder cancer. I have discussed treatment management for cystoscopy surveillance. Based on small size and that the tumor is low-grade, bladder installations therapy is not indicated at this time. 07/25/2023--here for cystoscopy. CT urogram--within normal limits. Cystoscopy findings: Mild to moderate bladder wall thickening. 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 Discussed cystoscopy TURBT. Consent obtained. 05/19/23--Adali is a 73-year-old female who is here for evaluation for microscopic hematuria. The patient has a history of nicotine use quit in 1979. The patient has lower urinary tract symptoms of urinary frequency. 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 She states she is no longer routinely following with DEPENDENCY PROGRAM DIRECTOR but told by DEPENDENCY PROGRAM DIRECTOR about 3 years ago that she had vaginal prolapse. She denies dysuria. Urinalysis trace blood, 0 leukocytes. I have discussed microscopic hematuria may be due to but not limited to kidney stones, BPH, cystitis, urinary tract malignancy. I have discussed work up to include evaluation of the urinary tract which may include imaging, further urine testing, and cystoscopy Plan--CT urogram, urine for cytology, follow-up office cystoscopy [facility] Medical History (Updated 11/30/23 @ 22:23 by Harman Cleary MD) Esophageal spasm Hx of carcinoma of bladder Bladder carcinoma History of trigger finger Right groin pain Cervical radiculitis Chronic sinusitis COVID-19 vaccine administered Trigger finger GERD (gastroesophageal reflux disease) FRANCESCA (obstructive sleep apnea) CAD (coronary artery disease) History of primary hyperparathyroidism Non-toxic multinodular goiter Osteoporosis Pulmonary nodules H/O gastroesophageal reflux (GERD) HLD (hyperlipidemia) HTN (hypertension) COPD (chronic obstructive pulmonary disease) Asthma History of aneurysm Migraine Depression PTSD (post-traumatic stress disorder) History of panic attacks Right inguinal hernia Anxiety Umbilical pain Edema Dizziness History of deviated nasal septum Medial epicondylitis of left elbow Fusion of spine, cervical region Surgical History Hx of cystoscopy H/O cervical spine surgery Hx of hand surgery Hx of right inguinal hernia repair History of hernia repair Hx of colonoscopy History of esophagogastroduodenoscopy (EGD) S/P repair of paraesophageal hernia H/O decompression of ulnar nerve Status post ablation of incompetent vein using laser History of cardiac catheterization History of eyelid surgery History of appendectomy History of parathyroidectomy History of cholecystectomy Hx of cataract surgery Hx of shoulder surgery S/P cubital tunnel release S/P arthroscopic surgery of right knee History of lumpectomy of both breasts History of hysterectomy Hx of adenoidectomy Hx of tonsillectomy Hx of eye surgery Family History Father Liver cancer Psoriasis Cancer Mental health disorder Mother Cervical cancer Ovarian cancer Heart attack Substance use disorder Social History Household Members: Children and None Housing: House Alcohol intake: current Alcohol intake frequency: does not drink Patient Tobacco Use Status: Former Tobacco user Tobacco use type: Cigarette e-Cigarette/Vaping Use: Never Used Second Hand Smoke Exposure: No service: No Current occupational status: employed 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 Information consent for procedure given to the patient. Discussed technical aspects, risks, benefits and alternatives in full. Addressed all of the patient's questions and concerns regarding the procedure. The patient demonstrated knowledge and understanding. They wish to proceed with this procedure. Preparation The patient was prepped in the usual manner. A traffic sign supervisor was present and in the room. Genitalia was prepped with betadine solution in a sterile manner. Lidocaine Jelly 2% was placed into the urethra and 16Fr flexible Olympus cystoscope was inserted into the meatus after adequate lubrication. Procedure Time out per protocol performed. Bladder Inspection Bladder Inspection: The bladder was inspected in its entirety with utilization retroflexion displaying: Tumor(s): no suspicious bladder lesions visualized Trabeculation: Mild to Moderate Mucosal Erthema: NA Orifices: normal shape and position Urethra: normal Cystoscopy findings: WNL, no suspicious bladder lesions visualized [id number] DISPOSABLE SCOPE URO-G FLEXIBLE SCOPE Procedure code (CPT) selection complete Office Meds lidocaine HCl 2 % mucosal jelly in applicator Performing Provider: Chloe Dodge MD Performing Location: [facility] [place] [facility] Administered by: Sander Victoria LPN on 12/05/23 10:41 Dose Route Admin Location Dispensed Lot Number Expiration Date [facility] [employer] 10 mL intra-urethral 10 mL naproxen 500 mg tablet Performing Provider: Chloe Dodge MD Performing Location: [facility] [place] [facility] Administered by: Sander Victoria LPN on 12/05/23 10:41 Dose Route Admin Location Dispensed Lot Number Expiration Date [facility] [employer] 500 mg PO 1 tab ciprofloxacin HCl 500 mg tablet Performing Provider: Chloe Dodge MD Performing Location: [facility] [place] [facility] Administered by: Sander Victoria LPN on 12/05/23 10:41 Dose Route Admin Location Dispensed Lot Number Expiration Date [facility] [employer] 500 mg PO 1 tab Results AMB Urinalysis, Automated UA Leukoctes 0 Jason/uL Last Edit by RAMSES Heller on 12/05/23 10:32 UA Nitrite Negative Last Edit by RAMSES Heller on 12/05/23 10:32 UA Urobilinogen 0.2 mg/dL Last Edit by RAMSES Heller on 12/05/23 10:3 2 UA Protein 0 mg/dL Last Edit by RAMSES Heller on 12/05/23 10:32 UA pH 6.0 Last Edit by RAMSES Heller on 12/05/23 10:32 UA Blood 25 Delfino/uL Last Edit by RAMSES Heller on 12/05/23 10:32 UA Specific [place] 1.020 Last Edit by RAMSES Heller on 12/05/23 10: 32 UA Ketone Negative Last Edit by RAMSES Heller on 12/05/23 10:32 UA Bilirubin 0 mg/dL Last Edit by RAMSES Heller on 12/05/23 10:32 UA Glucose 0 mg/dL Last Edit by RAMSES Heller on 12/05/23 10:32 Results Reviewed Results Reviewed: Laboratory Last Values Urine pH (Auto) 6.0 12/05/23 10:31 Specific [place] (Auto) 1.020 12/05/23 10:31 Urine Protein (Auto) 0 mg/dL 12/05/23 10:31 Glucose (UA)(Auto) 0 mg/dL 12/05/23 10:31 Urine Ketones (Auto) Negative 12/05/23 10:31 Urine Blood (Auto) 25 Delfino/uL 12/05/23 10:31 Urine Nitrite (Auto) Negative 12/05/23 10:31 Urine Bilirubin (Auto) 0 mg/dL 12/05/23 10:31 Urine Urobilinogen (Auto) 0.2 mg/dL 12/05/23 10:31 Leukocyte Esterase (Auto) 0 Jason/uL 12/05/23 10:31 Collected: 08/19/23 Location: [facility] Received: 08/19/23 Diagnosis A. Bladder, left lateral wall, Transurethral resection: - Low-grade papillary urothelial carcinoma, noninvasive. - No muscularis propria identified. B. Bladder, random posterolateral wall, biopsy: Mild chronic cystitis; muscularis propria present. C. Bladder, random right lateral wall, biopsy: Mild chronic cystitis; muscularis propria present. Bladder, transurethral resection/biopsy (A) Procedure: Transurethral resection Tumor site: Left lateral wall Histologic type: Papillary carcinoma Histologic grade: Low-grade Muscularis propria: Not present Extent of invasion: Noninvasive Lymphovascular invasion: Not identified Date of Service: 07/15/23 EXAMINATION: CT ABDOMEN AND PELVIS WITHOUT AND WITH CONTRAST CLINICAL INFORMATION: Hematuria. COMPARISON: None available. DLP: 720 mGy-cm FINDINGS: LUNG BASES: The visualized lung bases are unremarkable. LIVER, GALLBLADDER, AND BILIARY TREE: The liver is normal in size, shape, and attenuation. No focal hepatic lesion or biliary ductal dilatation is present. Status post cholecystectomy. PANCREAS: Unremarkable. SPLEEN: Unremarkable. ADRENAL GLANDS: Unremarkable. KIDNEYS AND URETERS: The kidneys are normal in size, shape, and attenuation. 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 No hydronephrosis, hydroureter, or calculi seen. No perinephric stranding. No renal parenchymal masses are seen. The uroepithelium appears normal without evidence of masses. BLADDER: Unremarkable. GASTROINTESTINAL TRACT: There is extensive left-sided diverticular disease without diverticulitis. The small and large bowel are otherwise unremarkable. No evidence of appendicitis. ABDOMINAL WALL: No significant hernia is appreciated. LYMPH NODES: Normal. VASCULAR: Calcific atherosclerotic changes are present in the aorta and iliofemoral vessels. There is no evidence of an abdominal aortic aneurysm. PELVIC VISCERA: The uterus is not seen. An abnormal adnexal mass is not detected. No free intraperitoneal fluid is present. OSSEUS STRUCTURES: Degenerative changes are present in the lower thoracic spine as well as at L5-S1. No bony destructive lesions. IMPRESSION: 1. A cause for the patient's hematuria has not been found. Assessment & Plan Assessment & Plan (1) History of nicotine use: Code(s): Z87.891 - Personal history of nicotine dependence Category: Medical (2) Urinary frequency: Code(s): R35.0 - Frequency of micturition Category: Medical (3) Bladder wall thickening: Code(s): N32.89 - Other specified disorders of bladder Category: Medical (4) Bladder cancer: Code(s): C67.9 - Malignant neoplasm of bladder, unspecified Category: Medical Plan Surveillance office cystoscopy in 3 months Orders: Orders AMB Cystoscopy 12/05/23 C67.9 - Malignant neoplasm of bladder, unspecified AMB Urinalysis Automated 12/05/23 Z13.9 - Encounter for screening, unspecified Patient Instructions: The patient had an opportunity to ask questions regarding treatment plan. The patient expressed understanding and agreement with the above treatment plan. The patient is aware they should contact our office by phone for worsening of their current condition or the appearance of new symptoms. Compliance is encouraged with any medications and followup testing that is ordered. It is a privilege to be allowed the opportunity to participate in the urologic care of your patient. If you have any questions or concerns regarding treatment for the above conditions please do not hesitate to contact me. The office telephone contact is [phone]. This note is constructed in part using voice recognition software. While every effort has been made to ensure accuracy traffic sergeant errors may have been included. Yours sincerely, Chloe Dodge MD Coding Level of Care Code Procedure Only Diagnoses History of nicotine use Z87.891 Urinary frequency R35.0 Bladder wall thickening N32.89 Bladder cancer C67.9 CPT Codes Cystoscopy - CPT: 94431-[id number] ([id number])
== END 2023-12-05 11:19 | disposition home or self-care (01) ==
PROVIDERS: PCP Nurse Practitioner Family; Visit Provider Urology
DX: C67.9 Malignant neoplasm of bladder, unspecified (principal); Z13.9 Encounter for screening, unspecified
CPT/HCPCS: 52000

== ENCOUNTER 2023-12-22 07:53 | Outpatient (REF) | payer MEDICARE, SELFPAY ==
[2023-12-22 10:35] LABS: Albumin Level 3.9 g/dL (3.5-5.0); Anion Gap 11 (12-20); Blood Urea Nitrogen 12 mg/dL (9-16); Carbon Dioxide 29 mmol/L (22-29); Chloride 104 mmol/L (96-108); Estimated Glomerular Filt Rate > 60; Glucose Random 100 mg/dL (60-115); Potassium 3.6 mmol/L (3.3-5.1); Sodium 140 mmol/L (135-145)
== END 2023-12-22 07:54 | disposition home or self-care (01) ==
LOC: HO.HMGCLDS 07:53
PROVIDERS: PCP Nurse Practitioner Family; Visit Provider Internal Medicine Endocrinology, Diabetes & Metabolism
DX: M81.8 Other osteoporosis without current pathological fracture (principal); M81.0 Age-related osteoporosis without current pathological fracture
CPT/HCPCS: 36415; 80048; 82040

== ENCOUNTER 2023-12-23 07:52 | Outpatient (AMB) | payer MEDICARE, SELFPAY ==
--- NOTE | 2023-12-23 08:12 | A.OFFVIS_ITS ---
Vital Signs 12/23/23 08:13 Height 4 ft 11 in Weight 161 lb BMI 32.5 Handedness Right Intake Visit Reasons: Preop RT ulnar nerve/CTR 12/29/23 AR Intake Note: Adali is a 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 female who presents today for a pre operative visit for a Right carpal tunnel release and right ulnar nerve release at the wrist DOS: 12/29/23 w/ Dr Cagle. She reports she stopped the medication she was supposed to stop taking. Allergies dexlansoprazole [From DEXILANT] Allergy (Severe, Verified 12/23/23 08:14) dizziness, change in HR risedronate sodium [From ACTONEL] Allergy (Severe, Verified 12/23/23 08:14) chest discomfort Jaddoob-JCI-ExK Reductase Inhibitor [[id number]-OKU-EHO REDUCTASE INHIBITOR] Allergy (Severe, Verified 12/23/23 08:14) JOINT PAIN tramadol [TRAMADOL] Allergy (Severe, Verified 12/23/23 08:14) THROAT TIGHTNESS amlodipine [AMLODIPINE] Allergy (Intermediate, Verified 12/23/23 08:14) PALIPITATIONS Atrovent Allergy (Intermediate, Verified 12/23/23 08:14) Cough baclofen [BACLOFEN] Allergy (Intermediate, Verified 12/23/23 08:14) LETHARGY Beta-Blockers (Beta-Adrenergic Bloc Allergy (Intermediate, Verified 12/23/23 08:14) BRADYCARDIA budesonide [From SYMBICORT] Allergy (Intermediate, Verified 12/23/23 08:14) HOARSENESS Chocolate Allergy (Intermediate, Verified 12/23/23 08:14) GERD ezetimibe [From ZETIA] Allergy (Intermediate, Verified 12/23/23 08:14) JOINT PAIN, ELEVATED CPK fluticasone [From ADVAIR DISKUS] Allergy (Intermediate, Verified 12/23/23 08:14) HTN glucosamine Allergy (Intermediate, Verified 12/23/23 08:14) LE edema ibandronate sodium [From BONIVA] Allergy (Intermediate, Verified 12/23/23 08:14) CHEST PAIN latex [LATEX] Allergy (Intermediate, Verified 12/23/23 08:14) RASH-SENSITIVITY lisinopril [LISINOPRIL] Allergy (Intermediate, Verified 12/23/23 08:14) COUGH, really bad cough meloxicam [From MOBIC] Allergy (Intermediate, Verified 12/23/23 08:14) GI UPSET mometasone furoate [From DULERA] Allergy (Intermediate, Verified 12/23/23 08:14) COUGH niacin Allergy (Intermediate, Verified 12/23/23 08:14) Flushing Penicillins [PENICILLINS] Allergy (Intermediate, Verified 12/23/23 08:14) RASH pregabalin [From LYRICA] Allergy (Intermediate, Verified 12/23/23 08:14) GERD flare up raloxifene [From EVISTA] Allergy (Intermediate, Verified 12/23/23 08:14) GERD rofecoxib [From Vioxx] Allergy (Intermediate, Verified 12/23/23 08:14) ankle swelling salmeterol [From ADVAIR DISKUS] Allergy (Intermediate, Verified 12/23/23 08:14) HTN scallops [SCALLOPS] Allergy (Intermediate, Verified 12/23/23 08:14) NAUSEA & VOMITING sertraline [From ZOLOFT] Allergy (Intermediate, Verified 12/23/23 08:14) SKIN CRAWLING spironolactone [SPIRONOLACTONE] Allergy (Intermediate, Verified 12/23/23 08:14) RASH, ?? psoriasis strawberry [STRAWBERRY] Allergy (Intermediate, Verified 12/23/23 08:14) ITCHING tiotropium [From SPIRIVA WITH HANDIHALER] Allergy (Intermediate, Verified 12/23/23 08:14) RAW THROAT, pharyngitis verapamil [VERAPAMIL] Allergy (Intermediate, Verified 12/23/23 08:14) IRREGULAR HEARTBEAT esomeprazole [Nexium] Allergy (Mild, Verified 12/23/23 08:14) did not resolve GERD naproxen [From ALEVE] Allergy (Mild, Verified 12/23/23 08:14) FLUSH omeprazole Allergy (Mild, Verified 12/23/23 08:14) did not resolve GERD tacrolimus Allergy (Mild, Verified 12/23/23 08:14) Rash adhesive [ADHESIVE] Allergy (Unknown, Verified 12/23/23 08:14) RASH doxycycline [DOXYCYCLINE] Allergy (Unknown, Verified 12/23/23 08:14) SEVERE NOYOLA, HEARTBURN, joint pain gabapentin [From NEURONTIN] Allergy (Unknown, Verified 12/23/23 08:14) leg swelling, SOB metoclopramide [From REGLAN] Allergy (Unknown, Verified 12/23/23 08:14) LETHARGY monosodium glutamate [MSG] Allergy (Unknown, Verified 12/23/23 08:14) HEADACHE, increased HR lifitegrast [From Xiidra] Allergy (Verified 12/23/23 08:14) blurred vision, headache, eye swelling metoprolol Adverse Reaction (Severe, Verified 12/23/23 08:14) Severe bradycardia alendronate sodium [From Fosamax] Adverse Reaction (Intermediate, Verified 12/23/23 08:14) Joint Pain amitriptyline Adverse Reaction (Intermediate, Verified 12/23/23 08:14) Agitated cyclosporine [From Cequa] Adverse Reaction (Intermediate, Verified 12/23/23 08:14) Eye Swelling fluticasone furoate [From Trelegy Ellipta] Adverse Reaction (Intermediate, Verified 12/23/23 08:14) asthma exacerbation perfluorohexyloctane [From Miebo] Adverse Reaction (Intermediate, Verified 12/23/23 08:14) Eye Swelling tobramycin [From Tobrex] Adverse Reaction (Intermediate, Verified 12/23/23 08:14) Eye Swelling umeclidinium [From Trelegy Ellipta] Adverse Reaction (Intermediate, Verified 12/23/23 08:14) asthma exacerbation vilanterol [From Trelegy Ellipta] Adverse Reaction (Intermediate, Verified 12/23/23 08:14) asthma exacerbation azelastine Adverse Reaction (Mild, Verified 12/23/23 08:14) Gastrointestinal Upset hi Adverse Reaction (Intermediate, Uncoded 12/23/23 08:14) Itchy Eyes Sulindac Adverse Reaction (Intermediate, Uncoded 12/23/23 08:14) Nausea, pain HPI HPI Preop RT ulnar nerve/CTR 12/29/23 AR: Details: Patient is a 73-year-old female who presents for preoperative evaluation for right ulnar nerve release at the wrist and carpal tunnel release, DOS 12/29/2023. Today, the patient reports that her symptoms have remained largely consistent since previous evaluation, but she has decreased of the amount of pain medication she has been taking, and she feels that her pain has increased accordingly. Patient does report that she is still experiencing carpal tunnel symptoms, namely numbness in the median nerve distribution of the right hand. No other acute complaints or concerns at this time. [facility] Medical History Esophageal spasm Hx of carcinoma of bladder Bladder carcinoma History of trigger finger Right groin pain Cervical radiculitis Chronic sinusitis COVID-19 vaccine administered Trigger finger GERD (gastroesophageal reflux disease) FRANCESCA (obstructive sleep apnea) CAD (coronary artery disease) History of primary hyperparathyroidism Non-toxic multinodular goiter Osteoporosis Pulmonary nodules H/O gastroesophageal reflux (GERD) HLD (hyperlipidemia) HTN (hypertension) COPD (chronic obstructive pulmonary disease) Asthma History of aneurysm Migraine Depression PTSD (post-traumatic stress disorder) History of panic attacks Right inguinal hernia Anxiety Umbilical pain Edema Dizziness History of deviated nasal septum Medial epicondylitis of left elbow Fusion of spine, cervical region Surgical History Hx of cystoscopy H/O cervical spine surgery Hx of hand surgery Hx of right inguinal hernia repair History of hernia repair Hx of colonoscopy History of esophagogastroduodenoscopy (EGD) S/P repair of paraesophageal hernia H/O decompression of ulnar nerve Status post ablation of incompetent vein using laser History of cardiac catheterization History of eyelid surgery History of appendectomy History of parathyroidectomy History of cholecystectomy Hx of cataract surgery Hx of shoulder surgery S/P cubital tunnel release S/P arthroscopic surgery of right knee History of lumpectomy of both breasts History of hysterectomy Hx of adenoidectomy Hx of tonsillectomy Hx of eye surgery Family History Father Liver cancer Psoriasis Cancer Mental health disorder Mother Cervical cancer Ovarian cancer Heart attack Substance use disorder Social History Household Members: Children and None Housing: House Alcohol intake: current Alcohol intake frequency: does not drink Patient Tobacco Use Status: Former Tobacco user Tobacco use type: Cigarette e-Cigarette/Vaping Use: Never Used Second Hand Smoke Exposure: No service: No Current occupational status: employed 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 Decreased sensation in the ulnar nerve distribution today in clinic No numbness to the dorsal ulnar aspect of her hand No thenar or intrinsic wasting Good APB muscle belly firing and good finger cross + Tinel sign over the ulnar nerve at the wrist Vascular: Cap refill brisk ROM: She can make a nice fist and extend all her digits She has a Wartenberg sign, but now can actively bring the small finger into adduction against the ring finger No swelling or erythema Patient feels her small finger is shrinking No subluxation of extensor tendons with ROM Nerve Conduction Study: Right-side only IMPRESSION: 1. Kwwj-ko-kilplmna right ulnar neuropathy in wrist. 2. Mild right median neuropathy across carpal tunnel. Beka Frost MD 07/29/2023 Radiographs: 3 views of the right hand from 07/15/23 were reviewed by me today in clinic. They show no fractures or dislocations. She has some basal joint osteoarthritis. No significant radiographic abnormalities involving the 4th or 5th rays from the wrist joint out to the digits. Psych Appearance: grossly normal Affect: normal affect Attitude: cooperative Assessment & Plan Assessment & Plan (1) Carpal tunnel syndrome of right wrist: Code(s): G56.01 - Carpal tunnel syndrome, right upper limb Category: Medical (2) Neuropathy of right ulnar nerve at wrist: Code(s): G56.21 - Lesion of ulnar nerve, right upper limb Category: Medical Plan 1. Ulnar neuropathy at the right wrist 2. Carpal tunnel syndrome, right Symptoms intermittent, daily, worse at night I educated the patient about the condition. I discussed both operative and nonoperative treatment options. The patient would like to proceed with surgery. The risks and benefits of operative treatment were discussed with the patient and the patient wishes to proceed with surgery. These risks include, but are not limited to, risk of damage to blood vessels, nerves, tendons, infection, recurrence, incomplete relief of preoperative symptoms, persistent pain, possible need for further surgery, and the risks associated with regional blocks and/or anesthesia. Plan is to take the patient to the operating room at some point in the next few weeks for the following procedures: 1. Right ulnar nerve release at the wrist under general anesthesia 2. Right carpal tunnel release under general anesthesia All of the preoperative paperwork including the consent was discussed today. All of the patient's questions were answered in the clinic today. The patient understands that they will be in contact with our surgical technician to discuss scheduling their procedure. Patient denies diabetes, blood thinners, asthma, heart issues, lung issues, kidney issues, or current smoking. Coding Level of Care Code Est Pt Level 4 (99703) Diagnoses Carpal tunnel syndrome of right wrist G56.01 Neuropathy of right ulnar nerve at wrist G56.21
[2023-12-23 08:13] VITALS: BMI 32.5
== END 2023-12-23 08:29 | disposition home or self-care (01) ==
PROVIDERS: PCP Nurse Practitioner Family
DX: G56.01 Carpal tunnel syndrome, right upper limb (principal); G56.21 Lesion of ulnar nerve, right upper limb
CPT/HCPCS: 99214

== ENCOUNTER → 2023-12-23 07:52 | Outpatient (BNVA) | payer MEDICARE, SELFPAY | PROVIDERS: PCP Nurse Practitioner Family | DX: Z01.818 Encounter for other preprocedural examination (principal); G56.01 Carpal tunnel syndrome, right upper limb; G56.21 Lesion of ulnar nerve, right upper limb | CPT/HCPCS: 99212 ==

== ENCOUNTER 2023-12-29 05:58 | Day surgery (SDC) | payer MEDICARE, SELFPAY ==
[2023-12-25 11:02] VITALS: BMI 32.5
--- NOTE | 2023-12-25 12:25 | HO.ANESPROP2 ---
Documented by User: Kiana Brito NP 12/25/23 12:28 HPI - Anesthesia Eval Consult details Narrative: 73yo F for Right Ulna Nerve Release, Carpal Tunnel Release s/p TURBT 08/2023 with GA-LMA 3 Follows [facility] pulmo for asthma. Last office visit 11/2023. Stable pulmo, Zpak for nasal congestion Follows [facility] cardiology for CAD with diffuse disease as well as vascular atherosclerosis in the abdominal aorta. Nonobstructive CAD. Last office visit 04/2023, stable and ok for 1 year routine f/u. Multiple allergies PMFSH Active Problems Active Problems: All Active Problems Neuropathy of right ulnar nerve at wrist (Acute) Mold exposure (Acute) Cerumen debris on tympanic membrane (Acute) Dysphagia (Acute) Bladder cancer (Acute) Localized primary osteoarthritis of carpometacarpal joint of right thumb (Acute) Cubital tunnel syndrome on right (Acute) Carpal tunnel syndrome of right wrist (Acute) Bladder wall thickening (Acute) Bladder tumor (Acute) Stiffness of right hand joint (Acute) Numbness and tingling in right hand (Acute) Panic (Acute) Chronic post-traumatic stress disorder (PTSD) (Acute) Hematuria (Acute) History of nicotine use (Acute) Atypical pneumonia (Acute) Urinary urgency (Acute) Myasthenia gravis (Acute) Choking (Acute) Postmenopausal (Acute) Physical exam (Acute) Cervical myofascial pain syndrome (Acute) Ankle pain, right (Acute) Hand pain, right (Acute) Fall (on) (from) other stairs and steps, initial encounter (Acute) Allergies (Acute) Sprain of right ankle (Acute) PVCs (premature ventricular contractions) (Acute) Sinusitis (Acute) Greater trochanteric pain syndrome (Acute) Sacroiliac joint pain (Acute) White coat syndrome with diagnosis of hypertension (Acute) Chronic left sacroiliac joint pain (Acute) Lumbar degenerative disc disease (Acute) Lumbar spondylosis (Acute) Lumbar post-laminectomy syndrome (Acute) Right hip pain (Acute) Microscopic hematuria (Acute) Elevated alkaline phosphatase level (Acute) Adverse reaction to COVID-19 vaccine (Acute) Fatigue (Acute) Nausea & vomiting (Acute) Occipital neuralgia of left side (Acute) Failed back syndrome of cervical spine (Acute) Cervical spondylosis (Acute) Muscle spasm (Acute) Right trigger finger (Acute) Urinary tract infection (Acute) Upper respiratory tract infection (Acute) Cervical stenosis of spine (Acute) Varicose veins of left lower extremity with inflammation (Acute) Allergies (Acute) Fatigue (Acute) Urinary frequency (Acute) Arthralgia (Acute) Varicose veins of right lower extremity with inflammation (Acute) Headache (Acute) Osteoporosis (Acute) Bronchiolitis (Acute) Dyspnea on exertion (Acute) Atypical chest pain (Acute) Hyperlipidemia (Acute) Screening for breast cancer (Acute) Rectal urgency (Acute) Inguinal hernia (Acute) HTN (hypertension) (Acute) Right groin pain (Acute) Cervical radiculitis (Acute) Chronic sinusitis (Acute) GERD (gastroesophageal reflux disease) (Acute) FRANCESCA (obstructive sleep apnea) (Acute) CAD (coronary artery disease) (Acute) History of primary hyperparathyroidism (Acute) Non-toxic multinodular goiter (Acute) Osteoporosis (Acute) Pulmonary nodules (Acute) H/O gastroesophageal reflux (GERD) (Acute) Right inguinal hernia (Acute) Anxiety (Acute) Edema (Acute) Dizziness (Acute) Past Medical History Medical History Esophageal spasm Hx of carcinoma of bladder Bladder carcinoma History of trigger finger Right groin pain Cervical radiculitis Chronic sinusitis COVID-19 vaccine administered Trigger finger GERD (gastroesophageal reflux disease) FRANCESCA (obstructive sleep apnea) CAD (coronary artery disease) History of primary hyperparathyroidism Non-toxic multinodular goiter Osteoporosis Pulmonary nodules H/O gastroesophageal reflux (GERD) HLD (hyperlipidemia) HTN (hypertension) COPD (chronic obstructive pulmonary disease) Asthma History of aneurysm Migraine Depression PTSD (post-traumatic stress disorder) History of panic attacks Right inguinal hernia Anxiety Umbilical pain Edema Dizziness History of deviated nasal septum Medial epicondylitis of left elbow Fusion of spine, cervical region Family History Family History Father Liver cancer Psoriasis Cancer Mental health disorder Mother Cervical cancer Ovarian cancer Heart attack Substance use disorder Family history of problems with anesthesia: No Surgical History Surgical History Hx of cystoscopy H/O cervical spine surgery Hx of hand surgery Hx of right inguinal hernia repair History of hernia repair Hx of colonoscopy History of esophagogastroduodenoscopy (EGD) S/P repair of paraesophageal hernia H/O decompression of ulnar nerve Status post ablation of incompetent vein using laser History of cardiac catheterization History of eyelid surgery History of appendectomy History of parathyroidectomy History of cholecystectomy Hx of cataract surgery Hx of shoulder surgery S/P cubital tunnel release S/P arthroscopic surgery of right knee History of lumpectomy of both breasts History of hysterectomy Hx of adenoidectomy Hx of tonsillectomy Hx of eye surgery History of Problems with Anesthesia: No Social History Social History Household Members: Children and None Housing: House Alcohol intake: current Alcohol intake frequency: does not drink Patient Tobacco Use Status: Former Tobacco user Tobacco use type: Cigarette e-Cigarette/Vaping Use: Never Used Second Hand Smoke Exposure: No Use of substances other than those prescribed or required for medical reasons: No Are you DNR?: No Advance Directives: No Advance Directives Information Provided: Yes Advance Directives on File: No service: No Current occupational status: employed 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, 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 Cognitive needs: No Hearing needs: No Vision needs: No Meds Allergies Allergy/AdvReac Type Severity Reaction Status Date / Time dexlansoprazole Allergy Severe dizziness, Verified 12/23/23 08:14 [From DEXILANT] change in HR risedronate sodium Allergy Severe chest Verified 12/23/23 08:14 [From ACTONEL] discomfort Tifajpn-[id number]-NdV Reductase Allergy Severe JOINT PAIN Verified 12/23/23 08:14 Inhibitor [GLZOYFL-[id number]-NED REDUCTASE INHIBITOR] tramadol [TRAMADOL] Allergy Severe THROAT Verified 12/23/23 08:14 TIGHTNESS amlodipine [AMLODIPINE] Allergy Intermediate PALIPITATIO Verified 12/23/23 08:14 NS Atrovent Allergy Intermediate Cough Verified 12/23/23 08:14 baclofen [BACLOFEN] Allergy Intermediate LETHARGY Verified 12/23/23 08:14 Beta-Blockers Allergy Intermediate BRADYCARDIA Verified 12/23/23 08:14 (Beta-Adrenergic Bloc budesonide [From SYMBICORT] Allergy Intermediate HOARSENESS Verified 12/23/23 08:14 Chocolate Allergy Intermediate GERD Verified 12/23/23 08:14 ezetimibe [From ZETIA] Allergy Intermediate JOINT Verified 12/23/23 08:14 PAIN, ELEVATED CPK fluticasone Allergy Intermediate HTN Verified 12/23/23 08:14 [From ADVAIR DISKUS] glucosamine Allergy Intermediate LE edema Verified 12/23/23 08:14 ibandronate sodium Allergy Intermediate CHEST PAIN Verified 12/23/23 08:14 [From BONIVA] latex [LATEX] Allergy Intermediate RASH-SENSIT Verified 12/23/23 08:14 IVITY lisinopril [LISINOPRIL] Allergy Intermediate COUGH, Verified 12/23/23 08:14 really bad cough meloxicam [From MOBIC] Allergy Intermediate GI UPSET Verified 12/23/23 08:14 mometasone furoate Allergy Intermediate COUGH Verified 12/23/23 08:14 [From DULERA] niacin Allergy Intermediate Flushing Verified 12/23/23 08:14 Penicillins [PENICILLINS] Allergy Intermediate RASH Verified 12/23/23 08:14 pregabalin [From LYRICA] Allergy Intermediate GERD flare Verified 12/23/23 08:14 up raloxifene [From EVISTA] Allergy Intermediate GERD Verified 12/23/23 08:14 rofecoxib [From Vioxx] Allergy Intermediate ankle Verified 12/23/23 08:14 swelling salmeterol Allergy Intermediate HTN Verified 12/23/23 08:14 [From ADVAIR DISKUS] scallops [SCALLOPS] Allergy Intermediate NAUSEA & Verified 12/23/23 08:14 VOMITING sertraline [From ZOLOFT] Allergy Intermediate SKIN Verified 12/23/23 08:14 CRAWLING spironolactone Allergy Intermediate RASH, ?? Verified 12/23/23 08:14 [SPIRONOLACTONE] psoriasis strawberry [STRAWBERRY] Allergy Intermediate ITCHING Verified 12/23/23 08:14 tiotropium Allergy Intermediate RAW Verified 12/23/23 08:14 [From SPIRIVA WITH THROAT, HANDIHALER] pharyngitis verapamil [VERAPAMIL] Allergy Intermediate IRREGULAR Verified 12/23/23 08:14 HEARTBEAT esomeprazole [Nexium] Allergy Mild did not Verified 12/23/23 08:14 resolve GERD naproxen [From ALEVE] Allergy Mild FLUSH Verified 12/23/23 08:14 omeprazole Allergy Mild did not Verified 12/23/23 08:14 resolve GERD tacrolimus Allergy Mild Rash Verified 12/23/23 08:14 adhesive [ADHESIVE] Allergy Unknown RASH Verified 12/23/23 08:14 doxycycline [DOXYCYCLINE] Allergy Unknown SEVERE NOYOLA, Verified 12/23/23 08:14 HEARTBURN, joint pain gabapentin [From NEURONTIN] Allergy Unknown leg Verified 12/23/23 08:14 swelling, SOB metoclopramide [From REGLAN] Allergy Unknown LETHARGY Verified 12/23/23 08:14 monosodium glutamate [MSG] Allergy Unknown HEADACHE, Verified 12/23/23 08:14 increased HR lifitegrast [From Xiidra] Allergy blurred Verified 12/23/23 08:14 vision, headache, eye swelling metoprolol AdvReac Severe Severe Verified 12/23/23 08:14 bradycardia alendronate sodium AdvReac Intermediate Joint Pain Verified 12/23/23 08:14 [From Fosamax] amitriptyline AdvReac Intermediate Agitated Verified 12/23/23 08:14 cyclosporine [From Cequa] AdvReac Intermediate Eye Verified 12/23/23 08:14 Swelling fluticasone furoate AdvReac Intermediate asthma Verified 12/23/23 08:14 [From Trelegy Ellipta] exacerbation perfluorohexyloctane AdvReac Intermediate Eye Verified 12/23/23 08:14 [From Miebo] Swelling tobramycin [From Tobrex] AdvReac Intermediate Eye Verified 12/23/23 08:14 Swelling umeclidinium AdvReac Intermediate asthma Verified 12/23/23 08:14 [From Trelegy Ellipta] exacerbation vilanterol AdvReac Intermediate asthma Verified 12/23/23 08:14 [From Trelegy Ellipta] exacerbation azelastine AdvReac Mild Gastrointestinal Verified 12/23/23 08:14 Upset hi AdvReac Intermediate Itchy Eyes Uncoded 12/23/23 08:14 Sulindac AdvReac Intermediate Nausea, Uncoded 12/23/23 08:14 pain Home Medications ?Medication ?Instructions ?Recorded ?Confirmed ?Last Taken ?Type Bifidobacterium infantis 4 mg 4 mg PO DAILY 11/17/19 12/25/23 Unknown History capsule (Align) aspirin 81 mg tablet,delayed 81 mg PO DAILY 11/17/19 12/25/23 05/14/23 History release (Adult Aspirin Regimen) betamethasone dipropionate 0.05 % 1 applic topical DIRECTED 11/17/19 12/25/23 Unknown History topical cream cyclosporine 0.05 % eye drops in a 1 drp ophthalmic (eye) Q12H 11/17/19 12/25/23 08/19/23 06:30 History dropperette (Restasis) docusate sodium 100 mg capsule 100 mg PO BID 11/17/19 12/25/23 Unknown History (Colace) magnesium oxide 500 mg PO DAILY 11/17/19 12/25/23 Unknown History cetirizine 10 mg tablet (Zyrtec) 10 mg PO DAILY PRN Allergy Symptoms 01/16/22 12/25/23 Unknown History prednisolone acetate 1 % eye 1 drp ophthalmic (eye) QID 12/25/22 12/25/23 08/19/23 06:30 History drops,suspension dextran 70-hypromellose (PF) 0.1 1 drp ophthalmic (eye) BEDTIME 03/19/23 12/25/23 Unknown History %-0.3 % eye drops in a dropperette (Artificial Tears (PF)) Exam Height,Weight and Vital Signs: Height 4 ft 11 in Weight 73.028 kg Pertinent Lab Results Pertinent Lab Results: Laboratory Tests 12/05/23 12/22/23 07:09 08:04 WBC 5.7 Hgb 13.3 Hct 41.1 Plt Count 320 Sodium 140 Potassium 3.6 Chloride 104 Carbon Dioxide 29 BUN 12 Creatinine 0.86 Narrative Narrative: EKG 04/2023 normal sinus rhythm with poor R-wave progression ECHO 2020 Conclusions: - The left ventricular systolic function is normal. The visually estimated ejection fraction is between 65-70%. - No obvious valvular pathology seen on this study. - (re-signed 05/31 due to technical issues) XR chest 2V 04/2023 IMPRESSION: No acute cardiopulmonary disease. Assessment and Plan Assessment Anesthesia Assessment: Chart Reviewed Final Anesthetic Review Family History of Problems with Anesthesia: No History of Problems with Anesthesia: No Documented by User: Karime Ceballos MD 12/29/23 08:05 [facility] Active Problems Active Problems: All Active Problems Neuropathy of right ulnar nerve at wrist (Acute) Mold exposure (Acute) Cerumen debris on tympanic membrane (Acute) Dysphagia (Acute) Bladder cancer (Acute) Localized primary osteoarthritis of carpometacarpal joint of right thumb (Acute) Cubital tunnel syndrome on right (Acute) Carpal tunnel syndrome of right wrist (Acute) Bladder wall thickening (Acute) Bladder tumor (Acute) Stiffness of right hand joint (Acute) Numbness and tingling in right hand (Acute) Panic (Acute) Chronic post-traumatic stress disorder (PTSD) (Acute) Hematuria (Acute) History of nicotine use (Acute) Atypical pneumonia (Acute) Urinary urgency (Acute) Myasthenia gravis (Acute) Choking (Acute) Postmenopausal (Acute) Physical exam (Acute) Cervical myofascial pain syndrome (Acute) Ankle pain, right (Acute) Hand pain, right (Acute) Fall (on) (from) other stairs and steps, initial encounter (Acute) Allergies (Acute) Sprain of right ankle (Acute) PVCs (premature ventricular contractions) (Acute) Sinusitis (Acute) Greater trochanteric pain syndrome (Acute) Sacroiliac joint pain (Acute) White coat syndrome with diagnosis of hypertension (Acute) Chronic left sacroiliac joint pain (Acute) Lumbar degenerative disc disease (Acute) Lumbar spondylosis (Acute) Lumbar post-laminectomy syndrome (Acute) Right hip pain (Acute) Microscopic hematuria (Acute) Elevated alkaline phosphatase level (Acute) Adverse reaction to COVID-19 vaccine (Acute) Fatigue (Acute) Nausea & vomiting (Acute) Occipital neuralgia of left side (Acute) Failed back syndrome of cervical spine (Acute) Cervical spondylosis (Acute) Muscle spasm (Acute) Right trigger finger (Acute) Urinary tract infection (Acute) Upper respiratory tract infection (Acute) Cervical stenosis of spine (Acute) Varicose veins of left lower extremity with inflammation (Acute) Allergies (Acute) Fatigue (Acute) Urinary frequency (Acute) Arthralgia (Acute) Varicose veins of right lower extremity with inflammation (Acute) Headache (Acute) Osteoporosis (Acute) Bronchiolitis (Acute) Dyspnea on exertion (Acute) Atypical chest pain (Acute) Hyperlipidemia (Acute) Screening for breast cancer (Acute) Rectal urgency (Acute) Inguinal hernia (Acute) HTN (hypertension) (Acute) Right groin pain (Acute) Cervical radiculitis (Acute) Chronic sinusitis (Acute) GERD (gastroesophageal reflux disease) (Acute) FRANCESCA (obstructive sleep apnea) (Acute)- positional. No symptoms when lays on side CAD (coronary artery disease) (Acute) History of primary hyperparathyroidism (Acute) Non-toxic multinodular goiter (Acute) Osteoporosis (Acute) Pulmonary nodules (Acute) H/O gastroesophageal reflux (GERD) (Acute) Right inguinal hernia (Acute) Anxiety (Acute) Edema (Acute) Dizziness (Acute) Past Medical History Medical History Esophageal spasm Hx of carcinoma of bladder Bladder carcinoma History of trigger finger Right groin pain Cervical radiculitis Chronic sinusitis COVID-19 vaccine administered Trigger finger GERD (gastroesophageal reflux disease) FRANCESCA (obstructive sleep apnea) CAD (coronary artery disease) History of primary hyperparathyroidism Non-toxic multinodular goiter Osteoporosis Pulmonary nodules H/O gastroesophageal reflux (GERD) HLD (hyperlipidemia) HTN (hypertension) COPD (chronic obstructive pulmonary disease) Asthma History of aneurysm Migraine Depression PTSD (post-traumatic stress disorder) History of panic attacks Right inguinal hernia Anxiety Umbilical pain Edema Dizziness History of deviated nasal septum Medial epicondylitis of left elbow Fusion of spine, cervical region Family History Family History Father Liver cancer Psoriasis Cancer Mental health disorder Mother Cervical cancer Ovarian cancer Heart attack Substance use disorder Family history of problems with anesthesia: No Surgical History Surgical History Hx of cystoscopy H/O cervical spine surgery Hx of hand surgery Hx of right inguinal hernia repair History of hernia repair Hx of colonoscopy History of esophagogastroduodenoscopy (EGD) S/P repair of paraesophageal hernia H/O decompression of ulnar nerve Status post ablation of incompetent vein using laser History of cardiac catheterization History of eyelid surgery History of appendectomy History of parathyroidectomy History of cholecystectomy Hx of cataract surgery Hx of shoulder surgery S/P cubital tunnel release S/P arthroscopic surgery of right knee History of lumpectomy of both breasts History of hysterectomy Hx of adenoidectomy Hx of tonsillectomy Hx of eye surgery History of Problems with Anesthesia: No Social History Social History Household Members: Children and None Housing: House Alcohol intake: current Alcohol intake frequency: does not drink Patient Tobacco Use Status: Former Tobacco user Tobacco use type: Cigarette e-Cigarette/Vaping Use: Never Used Second Hand Smoke Exposure: No Use of substances other than those prescribed or required for medical reasons: No Are you DNR?: No Advance Directives: No Advance Directives Information Provided: Yes Advance Directives on File: No service: No Current occupational status: employed 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, 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 Cognitive needs: No Hearing needs: No Vision needs: No Meds Allergies Allergy/AdvReac Type Severity Reaction Status Date / Time dexlansoprazole Allergy Severe dizziness, Verified 12/23/23 08:14 [From DEXILANT] change in HR risedronate sodium Allergy Severe chest Verified 12/23/23 08:14 [From ACTONEL] discomfort Lghpgzo-[id number]-CiH Reductase Allergy Severe JOINT PAIN Verified 12/23/23 08:14 Inhibitor [[id number] REDUCTASE INHIBITOR] tramadol [TRAMADOL] Allergy Severe THROAT Verified 12/23/23 08:14 TIGHTNESS amlodipine [AMLODIPINE] Allergy Intermediate PALIPITATIO Verified 12/23/23 08:14 NS Atrovent Allergy Intermediate Cough Verified 12/23/23 08:14 baclofen [BACLOFEN] Allergy Intermediate LETHARGY Verified 12/23/23 08:14 Beta-Blockers Allergy Intermediate BRADYCARDIA Verified 12/23/23 08:14 (Beta-Adrenergic Bloc budesonide [From SYMBICORT] Allergy Intermediate HOARSENESS Verified 12/23/23 08:14 Chocolate Allergy Intermediate GERD Verified 12/23/23 08:14 ezetimibe [From ZETIA] Allergy Intermediate JOINT Verified 12/23/23 08:14 PAIN, ELEVATED CPK fluticasone Allergy Intermediate HTN Verified 12/23/23 08:14 [From ADVAIR DISKUS] glucosamine Allergy Intermediate LE edema Verified 12/23/23 08:14 ibandronate sodium Allergy Intermediate CHEST PAIN Verified 12/23/23 08:14 [From BONIVA] latex [LATEX] Allergy Intermediate RASH-SENSIT Verified 12/23/23 08:14 IVITY lisinopril [LISINOPRIL] Allergy Intermediate COUGH, Verified 12/23/23 08:14 really bad cough meloxicam [From MOBIC] Allergy Intermediate GI UPSET Verified 12/23/23 08:14 mometasone furoate Allergy Intermediate COUGH Verified 12/23/23 08:14 [From DULERA] niacin Allergy Intermediate Flushing Verified 12/23/23 08:14 Penicillins [PENICILLINS] Allergy Intermediate RASH Verified 12/23/23 08:14 pregabalin [From LYRICA] Allergy Intermediate GERD flare Verified 12/23/23 08:14 up raloxifene [From EVISTA] Allergy Intermediate GERD Verified 12/23/23 08:14 rofecoxib [From Vioxx] Allergy Intermediate ankle Verified 12/23/23 08:14 swelling salmeterol Allergy Intermediate HTN Verified 12/23/23 08:14 [From ADVAIR DISKUS] scallops [SCALLOPS] Allergy Intermediate NAUSEA & Verified 12/23/23 08:14 VOMITING sertraline [From ZOLOFT] Allergy Intermediate SKIN Verified 12/23/23 08:14 CRAWLING spironolactone Allergy Intermediate RASH, ?? Verified 12/23/23 08:14 [SPIRONOLACTONE] psoriasis strawberry [STRAWBERRY] Allergy Intermediate ITCHING Verified 12/23/23 08:14 tiotropium Allergy Intermediate RAW Verified 12/23/23 08:14 [From SPIRIVA WITH THROAT, HANDIHALER] pharyngitis verapamil [VERAPAMIL] Allergy Intermediate IRREGULAR Verified 12/23/23 08:14 HEARTBEAT esomeprazole [Nexium] Allergy Mild did not Verified 12/23/23 08:14 resolve GERD naproxen [From ALEVE] Allergy Mild FLUSH Verified 12/23/23 08:14 omeprazole Allergy Mild did not Verified 12/23/23 08:14 resolve GERD tacrolimus Allergy Mild Rash Verified 12/23/23 08:14 adhesive [ADHESIVE] Allergy Unknown RASH Verified 12/23/23 08:14 doxycycline [DOXYCYCLINE] Allergy Unknown SEVERE NOYOLA, Verified 12/23/23 08:14 HEARTBURN, joint pain gabapentin [From NEURONTIN] Allergy Unknown leg Verified 12/23/23 08:14 swelling, SOB metoclopramide [From REGLAN] Allergy Unknown LETHARGY Verified 12/23/23 08:14 monosodium glutamate [MSG] Allergy Unknown HEADACHE, Verified 12/23/23 08:14 increased HR lifitegrast [From Xiidra] Allergy blurred Verified 12/23/23 08:14 vision, headache, eye swelling metoprolol AdvReac Severe Severe Verified 12/23/23 08:14 bradycardia alendronate sodium AdvReac Intermediate Joint Pain Verified 12/23/23 08:14 [From Fosamax] amitriptyline AdvReac Intermediate Agitated Verified 12/23/23 08:14 cyclosporine [From Cequa] AdvReac Intermediate Eye Verified 12/23/23 08:14 Swelling fluticasone furoate AdvReac Intermediate asthma Verified 12/23/23 08:14 [From Trelegy Ellipta] exacerbation perfluorohexyloctane AdvReac Intermediate Eye Verified 12/23/23 08:14 [From Miebo] Swelling tobramycin [From Tobrex] AdvReac Intermediate Eye Verified 12/23/23 08:14 Swelling umeclidinium AdvReac Intermediate asthma Verified 12/23/23 08:14 [From Trelegy Ellipta] exacerbation vilanterol AdvReac Intermediate asthma Verified 12/23/23 08:14 [From Trelegy Ellipta] exacerbation azelastine AdvReac Mild Gastrointestinal Verified 12/23/23 08:14 Upset hi AdvReac Intermediate Itchy Eyes Uncoded 12/23/23 08:14 Sulindac AdvReac Intermediate Nausea, Uncoded 12/23/23 08:14 pain Home Medications ?Medication ?Instructions ?Recorded ?Confirmed ?Last Taken ?Type Bifidobacterium infantis 4 mg 4 mg PO DAILY 11/17/19 12/25/23 Unknown History capsule (Align) aspirin 81 mg tablet,delayed 81 mg PO DAILY 11/17/19 12/25/23 05/14/23 History release (Adult Aspirin Regimen) betamethasone dipropionate 0.05 % 1 applic topical DIRECTED 11/17/19 12/25/23 Unknown History topical cream cyclosporine 0.05 % eye drops in a 1 drp ophthalmic (eye) Q12H 11/17/19 12/25/23 08/19/23 06:30 History dropperette (Restasis) docusate sodium 100 mg capsule 100 mg PO BID 11/17/19 12/25/23 Unknown History (Colace) magnesium oxide 500 mg PO DAILY 11/17/19 12/25/23 Unknown History cetirizine 10 mg tablet (Zyrtec) 10 mg PO DAILY PRN Allergy Symptoms 01/16/22 12/25/23 Unknown History prednisolone acetate 1 % eye 1 drp ophthalmic (eye) QID 12/25/22 12/25/23 08/19/23 06:30 History drops,suspension dextran 70-hypromellose (PF) 0.1 1 drp ophthalmic (eye) BEDTIME 03/19/23 12/25/23 Unknown History %-0.3 % eye drops in a dropperette (Artificial Tears (PF)) Exam Height,Weight and Vital Signs: Height 4 ft 11 in Weight 73.028 kg Vital Signs Temp Pulse Resp BP Pulse Ox O2 Del Method 12/29/23 06:31 98.2 F 91 16 149/80 H 95 Room Air Airway Mallampati Class: II Neck ROM: Full (Cervical fusion but good extension ) Loose/Missing/Broken Teeth: Yes (Top right and left back- 1 missing each side. Denies broken or loose teeth ) Heart: RRR Lungs: CTAB Assessment and Plan Assessment Anesthesia Assessment: Anesthesia Plan Discussed and Chart Reviewed Final Anesthetic Review Family History of Problems with Anesthesia: No History of Problems with Anesthesia: No NPO: Yes ASA Class: III Final Preanesthetic Review: No Changes in Pt Med Stat, Meds/Allgs Chart Reviewed, Consent Obtained/Reviewed and Anes Risks/Benef Reviewed Patient Risk: Intermediate Procedure Risk: Low Assessment/Block/Sedation in SS: Assess/Block/Sedation-SS Anesthetic Plan Anesthetic Plan: GA Disposition: Standard PACU
[2023-12-29 06:15] VITALS: BMI 32.5
[2023-12-29 06:31] VITALS: BP 149/80; PULSE 91; RESP 16; TEMP 36.8; O2SAT 95
[2023-12-29] MEDS: Lactated Ringers 1,000 ML 100 ML IVCONT (06:33)
--- NOTE | 2023-12-29 07:57 | PC.NURSE ---
Dr Cagle at bedside discussing procedure with patient. Per Dr. Cagle patient will have right carpal tunnel release under local anesthesia, Time out performed by this RN.
--- NOTE | 2023-12-29 08:20 | MHC.SHP ---
Pre-Procedural Eval Section A - 24 Hr Update-Section A only Date of Service: 12/29/23 The patient is an INPATIENT: No Changes since office visit: No Cold of Flu in the past 2 weeks, No New Medical Problems, No Changes in Medication and No Patient answered all questions The patient has been examined within 24 hours of the surgical procedure. The History & Physical has been completed within 30 days and I have reviewed it.: Yes Section B - Complete if H&P > 30 days Chief Complaint: Carpal tunnel syndrome, right upper limb Allergies: Allergies Allergy/AdvReac Type Severity Reaction Status Date / Time dexlansoprazole Allergy Severe dizziness, Verified 12/23/23 08:14 [From DEXILANT] change in HR risedronate sodium Allergy Severe chest Verified 12/23/23 08:14 [From ACTONEL] discomfort Rofxetc-YCM-FmM Reductase Allergy Severe JOINT PAIN Verified 12/23/23 08:14 Inhibitor [[id number] REDUCTASE INHIBITOR] tramadol [TRAMADOL] Allergy Severe THROAT Verified 12/23/23 08:14 TIGHTNESS amlodipine [AMLODIPINE] Allergy Intermediate PALIPITATIO Verified 12/23/23 08:14 NS Atrovent Allergy Intermediate Cough Verified 12/23/23 08:14 baclofen [BACLOFEN] Allergy Intermediate LETHARGY Verified 12/23/23 08:14 Beta-Blockers Allergy Intermediate BRADYCARDIA Verified 12/23/23 08:14 (Beta-Adrenergic Bloc budesonide [From SYMBICORT] Allergy Intermediate HOARSENESS Verified 12/23/23 08:14 Chocolate Allergy Intermediate GERD Verified 12/23/23 08:14 ezetimibe [From ZETIA] Allergy Intermediate JOINT Verified 12/23/23 08:14 PAIN, ELEVATED CPK fluticasone Allergy Intermediate HTN Verified 12/23/23 08:14 [From ADVAIR DISKUS] glucosamine Allergy Intermediate LE edema Verified 12/23/23 08:14 ibandronate sodium Allergy Intermediate CHEST PAIN Verified 12/23/23 08:14 [From BONIVA] latex [LATEX] Allergy Intermediate RASH-SENSIT Verified 12/23/23 08:14 IVITY lisinopril [LISINOPRIL] Allergy Intermediate COUGH, Verified 12/23/23 08:14 really bad cough meloxicam [From MOBIC] Allergy Intermediate GI UPSET Verified 12/23/23 08:14 mometasone furoate Allergy Intermediate COUGH Verified 12/23/23 08:14 [From DULERA] niacin Allergy Intermediate Flushing Verified 12/23/23 08:14 Penicillins [PENICILLINS] Allergy Intermediate RASH Verified 12/23/23 08:14 pregabalin [From LYRICA] Allergy Intermediate GERD flare Verified 12/23/23 08:14 up raloxifene [From EVISTA] Allergy Intermediate GERD Verified 12/23/23 08:14 rofecoxib [From Vioxx] Allergy Intermediate ankle Verified 12/23/23 08:14 swelling salmeterol Allergy Intermediate HTN Verified 12/23/23 08:14 [From ADVAIR DISKUS] scallops [SCALLOPS] Allergy Intermediate NAUSEA & Verified 12/23/23 08:14 VOMITING sertraline [From ZOLOFT] Allergy Intermediate SKIN Verified 12/23/23 08:14 CRAWLING spironolactone Allergy Intermediate RASH, ?? Verified 12/23/23 08:14 [SPIRONOLACTONE] psoriasis strawberry [STRAWBERRY] Allergy Intermediate ITCHING Verified 12/23/23 08:14 tiotropium Allergy Intermediate RAW Verified 12/23/23 08:14 [From SPIRIVA WITH THROAT, HANDIHALER] pharyngitis verapamil [VERAPAMIL] Allergy Intermediate IRREGULAR Verified 12/23/23 08:14 HEARTBEAT esomeprazole [Nexium] Allergy Mild did not Verified 12/23/23 08:14 resolve GERD naproxen [From ALEVE] Allergy Mild FLUSH Verified 12/23/23 08:14 omeprazole Allergy Mild did not Verified 12/23/23 08:14 resolve GERD tacrolimus Allergy Mild Rash Verified 12/23/23 08:14 adhesive [ADHESIVE] Allergy Unknown RASH Verified 12/23/23 08:14 doxycycline [DOXYCYCLINE] Allergy Unknown SEVERE NOYOLA, Verified 12/23/23 08:14 HEARTBURN, joint pain gabapentin [From NEURONTIN] Allergy Unknown leg Verified 12/23/23 08:14 swelling, SOB metoclopramide [From REGLAN] Allergy Unknown LETHARGY Verified 12/23/23 08:14 monosodium glutamate [MSG] Allergy Unknown HEADACHE, Verified 12/23/23 08:14 increased HR lifitegrast [From Xiidra] Allergy blurred Verified 12/23/23 08:14 vision, headache, eye swelling metoprolol AdvReac Severe Severe Verified 12/23/23 08:14 bradycardia alendronate sodium AdvReac Intermediate Joint Pain Verified 12/23/23 08:14 [From Fosamax] amitriptyline AdvReac Intermediate Agitated Verified 12/23/23 08:14 cyclosporine [From Cequa] AdvReac Intermediate Eye Verified 12/23/23 08:14 Swelling fluticasone furoate AdvReac Intermediate asthma Verified 12/23/23 08:14 [From Trelegy Ellipta] exacerbation perfluorohexyloctane AdvReac Intermediate Eye Verified 12/23/23 08:14 [From Miebo] Swelling tobramycin [From Tobrex] AdvReac Intermediate Eye Verified 12/23/23 08:14 Swelling umeclidinium AdvReac Intermediate asthma Verified 12/23/23 08:14 [From Trelegy Ellipta] exacerbation vilanterol AdvReac Intermediate asthma Verified 12/23/23 08:14 [From Trelegy Ellipta] exacerbation azelastine AdvReac Mild Gastrointestinal Verified 12/23/23 08:14 Upset hi AdvReac Intermediate Itchy Eyes Uncoded 12/23/23 08:14 Sulindac AdvReac Intermediate Nausea, Uncoded 12/23/23 08:14 pain Exam Exam Comment: The patient Was alert oriented and in no acute distress. It sounds like she is complaining more of numbness and tingling in the median nerve distribution than before. She still does sometimes gets some numbness in the small finger. She also has significant problems with ulnar-sided hand pain that may be related to an ECU tendinitis. She does have some tenderness over the ECU tendon as it passes across the wrist and to its insertion. Mildly increased pain with resisted wrist extension. She can make a fist and extend all of her digits. Good finger abduction and adduction. Plan Diagnosis/Plan: Change I have reviewed the history and physical and performed a pertinent physical examination on my patient. No changes have occurred unless specified. Assessment and plan: 1. Right carpal tunnel syndrome, mild Increased problems with numbness and tingling in the median nerve distribution. 2. Right ulnar nerve compression at the wrist 3. Right ulnar-sided hand pain This is actually her chief complaint. Most likely related to an ECU tendinitis. I talked with the patient about these conditions. As she is having more trouble with the carpal tunnel syndrome, and her complaint of dorsal ulnar hand pain, we are going to proceed today with a right carpal tunnel release. We can then re-assess her ulnar-sided hand symptoms after the carpal tunnel release . We might consider an ECU tendon sheath injection. We might also consider an MRI take a look at any source of ulnar nerve compression at the wrist, cyst versus aneurysm. The risks and benefits of operative treatment were discussed with the patient and the patient wishes to proceed with surgery. These risks include, but are not limited to risk of damage to blood vessels, nerves, tendons, infection, recurrence, incomplete relief of preoperative symptoms, persistent pain, possible need for further surgery and the risks associated with regional blocks and anesthesia. The plan is to take the patient to the operating room today for the following procedures: 1. Right carpal tunnel release under local 2. [ ] All of the preoperative paperwork including the consent was filled out today and signed. All the patient's questions were answered. Time Spent With Patient Time: Total time managing care of this patient today ____ minutes.
--- NOTE | 2023-12-29 08:30 | W.PM.OPN ---
Operative Note Operative Note Date of Service: 12/29/23 Narrative: Preop diagnosis: 1. Right Carpal tunnel syndrome Postop diagnosis: same Procedure: 1. Right Carpal tunnel release Surgeon: Marisol Cagle MD Leather Patcher: Right Anesthesia: local block using 1% lidocaine with epinephrine Findings: Thickened transverse carpal ligament. EBL: Less than 5 mL Specimens: None Complications: None Disposition: Brought to recovery room in stable condition Plan: Follow-up for 10-14 days for wound check and suture removal Indications: The patient is 73 years old, with right carpal tunnel syndrome that has been unresponsive to nonoperative management. The risks and benefits of operative treatment including but not limited to risk of damage to blood vessels, nerves, tendons, infection, persistent pain, persistent symptoms, or possible need for additional surgery were discussed with the patient and the patient wishes to proceed with surgery. Procedure: Once consent was obtained a local block was performed using a combination of 1% lidocaine with epinephrine. The patient was then brought back to the operating suite and placed on the operative table in supine position. The right upper extremity was prepped and draped in a standard surgical fashion. Once assured that we had a good block, a 2.0 cm longitudinal incision was made centered over the carpal tunnel. The incision was made through the skin to the subcutaneous tissues using a #15 blade. Dissection was made down to the level of the transverse carpal ligament with care being taken to protect the palmar cutaneous nerve. Once the transverse carpal ligament was clearly visualized, a longitudinal incision was made in the transverse carpal ligament 1st using a #15 blade, then using tenotomy scissors under direct visualization. Care was taken to look for and protect the motor branch of the median nerve when seen in this area. Once satisfied with our carpal tunnel release the wound was copiously irrigated with normal saline and hemostasis was obtained with a brief period of local pressure. The skin edges were reapproximated with some 5.0 nylon suture material and a sterile dressing was applied. The patient appears to have tolerated the procedure well and with no complications. All digits were well vascularized at the conclusion of the case.
[2023-12-29 09:18] VITALS: BP 146/89; PULSE 97; RESP 16; O2SAT 98
== END 2023-12-29 09:40 | disposition home or self-care (01) ==
PROVIDERS: PCP Nurse Practitioner Family; Visit Provider Orthopaedic Surgery
PROC: (CPT 64721; principal; 2023-12-29 07:30)
PROC: (CPT 64721; 2023-12-29 07:30)
DX: G56.01 Carpal tunnel syndrome, right upper limb (principal); I10 Essential (primary) hypertension; I25.10 Atherosclerotic heart disease of native coronary artery without angina pectoris; J45.909 Unspecified asthma, uncomplicated; G47.33 Obstructive sleep apnea (adult) (pediatric); Z66 Do not resuscitate; Z79.82 Long term (current) use of aspirin; Z79.1 Long term (current) use of non-steroidal anti-inflammatories (NSAID); Z79.899 Other long term (current) drug therapy; Z88.0 Allergy status to penicillin; Z88.8 Allergy status to other drugs, medicaments and biological substances; Z88.5 Allergy status to narcotic agent; Z88.6 Allergy status to analgesic agent; Z91.040 Latex allergy status; L23.1 Allergic contact dermatitis due to adhesives; Z85.51 Personal history of malignant neoplasm of bladder; Z87.891 Personal history of nicotine dependence; Z98.890 Other specified postprocedural states
CPT/HCPCS: 64721; J0131; J0690; J2003; J2004; J2704; J2795; J3010

== ENCOUNTER → 2023-12-29 05:58 | Outpatient (BNV) | payer MEDICARE, SELFPAY | PROVIDERS: PCP Nurse Practitioner Family; Visit Provider Orthopaedic Surgery | DX: G56.01 Carpal tunnel syndrome, right upper limb (principal) | CPT/HCPCS: 64721 ==

== ENCOUNTER 2023-12-31 07:46 | Outpatient (AMB) | payer MEDICARE, SELFPAY ==
--- NOTE | 2023-12-31 07:52 | A.OFFVIS_ITS ---
Vital Signs 12/31/23 07:53 Height 4 ft 11 in Weight 161 lb BMI 32.5 BP 132/72 Blood Pressure Location Lt brachial Position Sitting Pulse 64 Pulse Source Pulse Oximeter Intake Visit Reasons: f/u Osteoporosis and Prolia Intake Note: Patient present today for Osteoporosis and Prolia office visit. Multicultural Services Librarian Required: No Accompanied by: Self / Same As Patient Allergies dexlansoprazole [From DEXILANT] Allergy (Severe, Verified 12/31/23 08:00) dizziness, change in HR risedronate sodium [From ACTONEL] Allergy (Severe, Verified 12/31/23 08:00) chest discomfort Rrgawio-ZEW-IuP Reductase Inhibitor [ZYZIZLF-JYK-SKS REDUCTASE INHIBITOR] Allergy (Severe, Verified 12/31/23 08:00) JOINT PAIN tramadol [TRAMADOL] Allergy (Severe, Verified 12/31/23 08:00) THROAT TIGHTNESS amlodipine [AMLODIPINE] Allergy (Intermediate, Verified 12/31/23 08:00) PALIPITATIONS Atrovent Allergy (Intermediate, Verified 12/31/23 08:00) Cough baclofen [BACLOFEN] Allergy (Intermediate, Verified 12/31/23 08:00) LETHARGY Beta-Blockers (Beta-Adrenergic Bloc Allergy (Intermediate, Verified 12/31/23 08:00) BRADYCARDIA budesonide [From SYMBICORT] Allergy (Intermediate, Verified 12/31/23 08:00) HOARSENESS Chocolate Allergy (Intermediate, Verified 12/31/23 08:00) GERD ezetimibe [From ZETIA] Allergy (Intermediate, Verified 12/31/23 08:00) JOINT PAIN, ELEVATED CPK fluticasone [From ADVAIR DISKUS] Allergy (Intermediate, Verified 12/31/23 08:00) HTN glucosamine Allergy (Intermediate, Verified 12/31/23 08:00) LE edema ibandronate sodium [From BONIVA] Allergy (Intermediate, Verified 12/31/23 08:00) CHEST PAIN latex [LATEX] Allergy (Intermediate, Verified 12/31/23 08:00) RASH-SENSITIVITY lisinopril [LISINOPRIL] Allergy (Intermediate, Verified 12/31/23 08:00) COUGH, really bad cough meloxicam [From MOBIC] Allergy (Intermediate, Verified 12/31/23 08:00) GI UPSET mometasone furoate [From DULERA] Allergy (Intermediate, Verified 12/31/23 08:00) COUGH niacin Allergy (Intermediate, Verified 12/31/23 08:00) Flushing Penicillins [PENICILLINS] Allergy (Intermediate, Verified 12/31/23 08:00) RASH pregabalin [From LYRICA] Allergy (Intermediate, Verified 12/31/23 08:00) GERD flare up raloxifene [From EVISTA] Allergy (Intermediate, Verified 12/31/23 08:00) GERD rofecoxib [From Vioxx] Allergy (Intermediate, Verified 12/31/23 08:00) ankle swelling salmeterol [From ADVAIR DISKUS] Allergy (Intermediate, Verified 12/31/23 08:00) HTN scallops [SCALLOPS] Allergy (Intermediate, Verified 12/31/23 08:00) NAUSEA & VOMITING sertraline [From ZOLOFT] Allergy (Intermediate, Verified 12/31/23 08:00) SKIN CRAWLING spironolactone [SPIRONOLACTONE] Allergy (Intermediate, Verified 12/31/23 08:00) RASH, ?? psoriasis strawberry [STRAWBERRY] Allergy (Intermediate, Verified 12/31/23 08:00) ITCHING tiotropium [From SPIRIVA WITH HANDIHALER] Allergy (Intermediate, Verified 12/31/23 08:00) RAW THROAT, pharyngitis verapamil [VERAPAMIL] Allergy (Intermediate, Verified 12/31/23 08:00) IRREGULAR HEARTBEAT esomeprazole [Nexium] Allergy (Mild, Verified 12/31/23 08:00) did not resolve GERD naproxen [From ALEVE] Allergy (Mild, Verified 12/31/23 08:00) FLUSH omeprazole Allergy (Mild, Verified 12/31/23 08:00) did not resolve GERD tacrolimus Allergy (Mild, Verified 12/31/23 08:00) Rash adhesive [ADHESIVE] Allergy (Unknown, Verified 12/31/23 08:00) RASH doxycycline [DOXYCYCLINE] Allergy (Unknown, Verified 12/31/23 08:00) SEVERE NOYOLA, HEARTBURN, joint pain gabapentin [From NEURONTIN] Allergy (Unknown, Verified 12/31/23 08:00) leg swelling, SOB metoclopramide [From REGLAN] Allergy (Unknown, Verified 12/31/23 08:00) LETHARGY monosodium glutamate [MSG] Allergy (Unknown, Verified 12/31/23 08:00) HEADACHE, increased HR lifitegrast [From Xiidra] Allergy (Verified 12/31/23 08:00) blurred vision, headache, eye swelling metoprolol Adverse Reaction (Severe, Verified 12/31/23 08:00) Severe bradycardia alendronate sodium [From Fosamax] Adverse Reaction (Intermediate, Verified 12/31/23 08:00) Joint Pain amitriptyline Adverse Reaction (Intermediate, Verified 12/31/23 08:00) Agitated cyclosporine [From Cequa] Adverse Reaction (Intermediate, Verified 12/31/23 08:00) Eye Swelling fluticasone furoate [From Trelegy Ellipta] Adverse Reaction (Intermediate, Verified 12/31/23 08:00) asthma exacerbation perfluorohexyloctane [From Miebo] Adverse Reaction (Intermediate, Verified 12/31/23 08:00) Eye Swelling tobramycin [From Tobrex] Adverse Reaction (Intermediate, Verified 12/31/23 08:00) Eye Swelling umeclidinium [From Trelegy Ellipta] Adverse Reaction (Intermediate, Verified 12/31/23 08:00) asthma exacerbation vilanterol [From Trelegy Ellipta] Adverse Reaction (Intermediate, Verified 12/31/23 08:00) asthma exacerbation azelastine Adverse Reaction (Mild, Verified 12/31/23 08:00) Gastrointestinal Upset hi Adverse Reaction (Intermediate, Uncoded 12/31/23 08:00) Itchy Eyes Sulindac Adverse Reaction (Intermediate, Uncoded 12/31/23 08:00) Nausea, pain HPI Comments Details: 73 yo female today for fup visit, l for fup NTMNG, osteoporosis. She is feeling well. She is taking Viactiv twice a day and vitamin-D 1000 international units daily. She is currently on Evenity and has had 12 doses Could not tolerate Boniva after 3 wks. Boniva caused position . Transitioning to Prolia today She had side effect with Bisphosphonates. she had chest pain with 2 oral bisphosphonates. Secondary workup was normal except for low urinary calcium but urinary creatinine was low as well. Started Evenity took 2 doses last dose was after booster 4 days later and had gastrointestinal side effects . First dose caused no problem. Patient has h/o of primary hyperparathyroidism, s/p parathyroidectomy 3 and 1/2 on 2012, osteoporosis. she has h/o in situ cervical cancer, treated with hysterectomy. She has extensive FH of cancer, Her sister has Torin's disease, had thyroidectomy. Denies cold or heat intolerance, weight loss or gain, post menopausal, diarrhea, constipation, insomnia, fatigue, dry skin, dysphagia, dyspnea, dysphonia, tremors, + occasional palpitations, denies irritability, anxiety. DEXA scan reviewed over years. 2011 LS BMD 0.963 gm/cm2, Score - 1.7 Femur BMD 0.707 GM/cm2, Score - 2.4 FN R T score -2.7 L -3.0 Forearm BMD 0.698 gm/cm2, T score - 2.1 2013 LS BMD 0.947 gm/cm2, Tscore - 1.8 Forearm BMD 0.684 gm/cm2, Tscore - 2.3 2015 LS BMD 0.947 gm/cm2, Tscore - 1.8 Femur BMD 0.703 gm/cm2, Tscore - 2.4 FN R -2.7 from -2.5, FN L -3.3 from -3.0 Forearm BMD 0.656 gm/cm2, Tscore - 2.6 02/02/18 [facility] LS BMD 0.957 gm/cm2, T-score -1.7 Femur BMD 0.707 gm/cm2, T-score -2.4 Right femoral neck -2.7 , left FN T score -3.0 DEXA 02/18/2020 AP SPINE L1-L2 (excluding L3 and L4): The data of L1-L4 has been changed to exclude the L3 and L4 vertebral bodies, because degenerative changes at these levels may cause overestimation of lumbar spine density. BMD 0.798 g/cm2, Z-score -1.6, T-score -3.1, osteoporosis. LEFT FEMUR, NECK: BMD 0.534 g/cm2, Z-score -2.1, T-score -3.6, osteoporosis. LEFT FEMUR, TOTAL: BMD 0.626 g/cm2, Z-score -1.7, T-score -3.0, osteoporosis. 12/19/17 US thyroid Right Thyroid Lobe: 3.3 x 1.2 x 1.6 cm, volume 3.1 mL. Previously 3.2 x 1.0 x 1.2 cm, volume 2.0 mL. Left Thyroid Lobe: 3.2 x 1.1 x 1.3 cm, volume 2.3 mL. Previously 3.2 x 0.9 x 1.2 cm, volume 1.8 mL. Isthmus: 0.2 cm in maximum AP dimension. Previously 0.3 cm. PARENCHYMA: The gland echotexture is homogeneous. Thyroid vascularity is normal. RIGHT THYROID LOBE: There are 3 nodules seen. 1. Location: Mid/upper pole Size: 0.2 x 0.2 x 0.2 cm. Previous: 0.2 x 0.1 x 0.2 cm. Nodule characteristics: Hypoechoic with smooth margins and no intranodular flow 2. Location: Upper/mid pole Size: 0.2 x 0.2 x 0.2 cm. Previous: 0.2 x 0.2 x 0.1 cm. Nodule characteristics: Hypoechoic with smooth margins and no intranodular flow 3. Location: Medial midpole Size: 0.5 x 0.3 x 0.4 cm. Previous: 0.4 x 0.2 x 0.4 cm. Nodule characteristics: Hypoechoic with smooth margins and no intranodular flow ISTHMUS: No nodules. LEFT THYROID LOBE: There is 1 nodule seen. 1. Location: Midpole Size: 0.4 x 0.3 x 0.3 cm. Previous: 0.3 x 0.3 x 0.2 cm. Nodule characteristics: Hypoechoic with smooth margins and no intranodular flow. NODES: No lymphadenopathy is seen in the tissue surrounding the thyroid gland. She is complaining of some dysphagia Laboratory Tests 10/28/19 12/08/19 06:18 12:32 Creatinine 0.83 Estimated GFR > 60 Calcium 8.6 8.6 Alkaline Phosphatase 112 Albumin 4.1 Completed a course of Evenity. Now on Prolia as well as calcium Viactiv 1300 mg BID and vitamin D supplementation. No fracture since last visit [facility] Medical History Esophageal spasm Hx of carcinoma of bladder Bladder carcinoma History of trigger finger Right groin pain Cervical radiculitis Chronic sinusitis COVID-19 vaccine administered Trigger finger GERD (gastroesophageal reflux disease) FRANCESCA (obstructive sleep apnea) CAD (coronary artery disease) History of primary hyperparathyroidism Non-toxic multinodular goiter Osteoporosis Pulmonary nodules H/O gastroesophageal reflux (GERD) HLD (hyperlipidemia) HTN (hypertension) COPD (chronic obstructive pulmonary disease) Asthma History of aneurysm Migraine Depression PTSD (post-traumatic stress disorder) History of panic attacks Right inguinal hernia Anxiety Umbilical pain Edema Dizziness History of deviated nasal septum Medial epicondylitis of left elbow Fusion of spine, cervical region Surgical History Hx of cystoscopy H/O cervical spine surgery Hx of hand surgery Hx of right inguinal hernia repair History of hernia repair Hx of colonoscopy History of esophagogastroduodenoscopy (EGD) S/P repair of paraesophageal hernia H/O decompression of ulnar nerve Status post ablation of incompetent vein using laser History of cardiac catheterization History of eyelid surgery History of appendectomy History of parathyroidectomy History of cholecystectomy Hx of cataract surgery Hx of shoulder surgery S/P cubital tunnel release S/P arthroscopic surgery of right knee History of lumpectomy of both breasts History of hysterectomy Hx of adenoidectomy Hx of tonsillectomy Hx of eye surgery Family History Father Liver cancer Psoriasis Cancer Mental health disorder Mother Cervical cancer Ovarian cancer Heart attack Substance use disorder Social History Household Members: Children and None Housing: House Alcohol intake: current Alcohol intake frequency: does not drink Patient Tobacco Use Status: Former Tobacco user Tobacco use type: Cigarette e-Cigarette/Vaping Use: Never Used Second Hand Smoke Exposure: No service: No Current occupational status: employed 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, 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 Cognitive needs: No Hearing needs: No Vision needs: No Physical Exam Vital Signs: Last Vital Signs Pulse 64 12/31/23 07:53 BP 132/72 12/31/23 07:53 BMI result Body Mass Index 32.5 Office Meds Prolia 60 mg/mL subcutaneous syringe Performing Provider: Manas Doss MD Performing Location[place] [facility] [place] [facility] Administered by: Aimee Roman RN on 12/31/23 08:23 Dose Route Admin Location Dispensed Lot Number Expiration Date NDC [place] [employer] 60 mg subcut Left upper arm 1 mL [id number] 04/09/26 00269-379-59 [employer] Comments: Consent form signed by pt. Pt tolerated injection well. Pt denies any adverse reactions with injections in the past. Assessment & Plan Assessment & Plan (1) Osteoporosis: Code(s): M81.0 - Age-related osteoporosis without current pathological fracture Category: Medical Plan: This 73-year-old white female with a history of osteoporosis previous intolerance to oral bisphosphonates. Secondary workup is negative except for low urinary calcium still low for corrected urinary creatinine. She finished a course of Evenity. Now on Prolia since 06/2023 Plan is to check a 24 hour urine for calcium and creatinine to ensure calcium intake is sufficient. The low urinary calcium may be reflection of the HCTZ and it measures the patient's primary care provider to discontinue the HCTZ prior to repeat 24 hour urine collection in 2 months. We will continue Prolia with optimal duration 2-3 years time or until patient reaches goal of osteopenia and then transition to a bisphosphonate. We will recheck DEXA in 02/2024 and depending on DEXA would either consider continuing Prolia for 1-3 years dur ation. She did have reactions to oral bisphosphonates in the past for perhaps an IV bisphosphonate like Reclast might be appropriate when the time is necessary Orders: Orders XR DEXA axial skeleton 2 Months M81.0 - Age-related osteoporosis without current pathological fracture AMB Denosumab Injection Patient Supplied Today M81.0 - Age-related osteoporosis without current pathological fracture Medications: New Prolia (denosumab) 60 mg subcut ONCE 1 mL 0RF NS M81.0 - Age-related osteoporosis without current pathological fracture Coding Level of Care Code Est Pt Level 3 (37480) Diagnoses Osteoporosis M81.0
[2023-12-31 07:53] VITALS: BP 132/72; PULSE 64; BMI 32.5
== END 2023-12-31 08:34 | disposition home or self-care (01) ==
PROVIDERS: PCP Nurse Practitioner Family; Visit Provider Internal Medicine Endocrinology, Diabetes & Metabolism
DX: M81.0 Age-related osteoporosis without current pathological fracture (principal)
CPT/HCPCS: 99213

== ENCOUNTER → 2023-12-31 07:46 | Outpatient (BNVA) | payer MEDICARE, SELFPAY | PROVIDERS: PCP Nurse Practitioner Family; Visit Provider Internal Medicine Endocrinology, Diabetes & Metabolism | DX: M81.0 Age-related osteoporosis without current pathological fracture (principal); Z79.620 Long term (current) use of immunosuppressive biologic | CPT/HCPCS: 96372; 99212; J0897 ==

== ENCOUNTER 2024-01-02 08:59 | Outpatient (AMB) | payer MEDICARE, SELFPAY ==
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
== END 2024-01-02 09:03 | disposition home or self-care (01) ==
LOC: HO.HOP 08:59
PROVIDERS: PCP Nurse Practitioner Family; Visit Provider Clinical Nurse Specialist Psychiatric/Mental Health
DX: F43.12 Post-traumatic stress disorder, chronic (principal)
CPT/HCPCS: 90833; 99214

== ENCOUNTER → 2024-01-02 08:59 | Outpatient (BNVA) | payer MEDICARE, SELFPAY | PROVIDERS: PCP Nurse Practitioner Family; Visit Provider Clinical Nurse Specialist Psychiatric/Mental Health | DX: F43.12 Post-traumatic stress disorder, chronic (principal) | CPT/HCPCS: 99212 ==

== ENCOUNTER 2024-01-14 12:36 | Outpatient (AMB) | payer MEDICARE, SELFPAY ==
--- NOTE | 2024-01-14 12:50 | MHC.OFFVIS ---
Intake Visit Reasons: PO RT ulnar nerve/CTR 12/29/23 AR Intake Note: Adali is a 73 year old 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 female who presents today for a postoperatively s/p right carpal tunnel release and right ulnar nerve release, DOS: 12/29/[address] Cagle. Patient reports her symptoms improved, taking Tylenol for pain. Denies numbness, tingling, or finger locking. Sutures removed in office today and steri strips applied. Allergies dexlansoprazole [From DEXILANT] Allergy (Severe, Verified 01/14/24 12:54) dizziness, change in HR risedronate sodium [From ACTONEL] Allergy (Severe, Verified 01/14/24 12:54) chest discomfort Ogvyzvz-FIN-SsD Reductase Inhibitor [[id number] REDUCTASE INHIBITOR] Allergy (Severe, Verified 01/14/24 12:54) JOINT PAIN tramadol [TRAMADOL] Allergy (Severe, Verified 01/14/24 12:54) THROAT TIGHTNESS amlodipine [AMLODIPINE] Allergy (Intermediate, Verified 01/14/24 12:54) PALIPITATIONS Atrovent Allergy (Intermediate, Verified 01/14/24 12:54) Cough baclofen [BACLOFEN] Allergy (Intermediate, Verified 01/14/24 12:54) LETHARGY Beta-Blockers (Beta-Adrenergic Bloc Allergy (Intermediate, Verified 01/14/24 12:54) BRADYCARDIA budesonide [From SYMBICORT] Allergy (Intermediate, Verified 01/14/24 12:54) HOARSENESS Chocolate Allergy (Intermediate, Verified 01/14/24 12:54) GERD ezetimibe [From ZETIA] Allergy (Intermediate, Verified 01/14/24 12:54) JOINT PAIN, ELEVATED CPK fluticasone [From ADVAIR DISKUS] Allergy (Intermediate, Verified 01/14/24 12:54) HTN glucosamine Allergy (Intermediate, Verified 01/14/24 12:54) LE edema ibandronate sodium [From BONIVA] Allergy (Intermediate, Verified 01/14/24 12:54) CHEST PAIN latex [LATEX] Allergy (Intermediate, Verified 01/14/24 12:54) RASH-SENSITIVITY lisinopril [LISINOPRIL] Allergy (Intermediate, Verified 01/14/24 12:54) COUGH, really bad cough meloxicam [From MOBIC] Allergy (Intermediate, Verified 01/14/24 12:54) GI UPSET mometasone furoate [From DULERA] Allergy (Intermediate, Verified 01/14/24 12:54) COUGH niacin Allergy (Intermediate, Verified 01/14/24 12:54) Flushing Penicillins [PENICILLINS] Allergy (Intermediate, Verified 01/14/24 12:54) RASH pregabalin [From LYRICA] Allergy (Intermediate, Verified 01/14/24 12:54) GERD flare up raloxifene [From EVISTA] Allergy (Intermediate, Verified 01/14/24 12:54) GERD rofecoxib [From Vioxx] Allergy (Intermediate, Verified 01/14/24 12:54) ankle swelling salmeterol [From ADVAIR DISKUS] Allergy (Intermediate, Verified 01/14/24 12:54) HTN scallops [SCALLOPS] Allergy (Intermediate, Verified 01/14/24 12:54) NAUSEA & VOMITING sertraline [From ZOLOFT] Allergy (Intermediate, Verified 01/14/24 12:54) SKIN CRAWLING spironolactone [SPIRONOLACTONE] Allergy (Intermediate, Verified 01/14/24 12:54) RASH, ?? psoriasis strawberry [STRAWBERRY] Allergy (Intermediate, Verified 01/14/24 12:54) ITCHING tiotropium [From SPIRIVA WITH HANDIHALER] Allergy (Intermediate, Verified 01/14/24 12:54) RAW THROAT, pharyngitis verapamil [VERAPAMIL] Allergy (Intermediate, Verified 01/14/24 12:54) IRREGULAR HEARTBEAT esomeprazole [Nexium] Allergy (Mild, Verified 01/14/24 12:54) did not resolve GERD naproxen [From ALEVE] Allergy (Mild, Verified 01/14/24 12:54) FLUSH omeprazole Allergy (Mild, Verified 01/14/24 12:54) did not resolve GERD tacrolimus Allergy (Mild, Verified 01/14/24 12:54) Rash adhesive [ADHESIVE] Allergy (Unknown, Verified 01/14/24 12:54) RASH doxycycline [DOXYCYCLINE] Allergy (Unknown, Verified 01/14/24 12:54) SEVERE NOYOLA, HEARTBURN, joint pain gabapentin [From NEURONTIN] Allergy (Unknown, Verified 01/14/24 12:54) leg swelling, SOB metoclopramide [From REGLAN] Allergy (Unknown, Verified 01/14/24 12:54) LETHARGY monosodium glutamate [MSG] Allergy (Unknown, Verified 01/14/24 12:54) HEADACHE, increased HR lifitegrast [From Xiidra] Allergy (Verified 01/14/24 12:54) blurred vision, headache, eye swelling metoprolol Adverse Reaction (Severe, Verified 01/14/24 12:54) Severe bradycardia alendronate sodium [From Fosamax] Adverse Reaction (Intermediate, Verified 01/14/24 12:54) Joint Pain amitriptyline Adverse Reaction (Intermediate, Verified 01/14/24 12:54) Agitated cyclosporine [From Cequa] Adverse Reaction (Intermediate, Verified 01/14/24 12:54) Eye Swelling fluticasone furoate [From Trelegy Ellipta] Adverse Reaction (Intermediate, Verified 01/14/24 12:54) asthma exacerbation perfluorohexyloctane [From Miebo] Adverse Reaction (Intermediate, Verified 01/14/24 12:54) Eye Swelling tobramycin [From Tobrex] Adverse Reaction (Intermediate, Verified 01/14/24 12:54) Eye Swelling umeclidinium [From Trelegy Ellipta] Adverse Reaction (Intermediate, Verified 01/14/24 12:54) asthma exacerbation vilanterol [From Trelegy Ellipta] Adverse Reaction (Intermediate, Verified 01/14/24 12:54) asthma exacerbation azelastine Adverse Reaction (Mild, Verified 01/14/24 12:54) Gastrointestinal Upset hi Adverse Reaction (Intermediate, Uncoded 12/31/23 08:00) Itchy Eyes Sulindac Adverse Reaction (Intermediate, Uncoded 12/31/23 08:00) Nausea, pain HPI HPI PO RT ulnar nerve/CTR 12/29/23 AR: Details: Adali is a 73 year old 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 woman who presents S/P right carpal tunnel release, DOS: 12/29/23. She says she is doing well and her sensation is now normal. She says that surprisingly all of her pain in her hand, including the dorsal ulnar aspect of the hand, is feeling better She has a Hx of ulnar nerve compression at the wrist, and numbness in her small finger. Also reports that she no longer has any numbness in the small or ring fingers. [facility] Medical History (Updated 01/14/24 @ 13:01 by Keyon Manzo) Esophageal spasm Hx of carcinoma of bladder Bladder carcinoma History of trigger finger Cervical radiculitis Chronic sinusitis GERD (gastroesophageal reflux disease) FRANCESCA (obstructive sleep apnea) CAD (coronary artery disease) History of primary hyperparathyroidism Non-toxic multinodular goiter Osteoporosis Pulmonary nodules H/O gastroesophageal reflux (GERD) HLD (hyperlipidemia) HTN (hypertension) COPD (chronic obstructive pulmonary disease) Asthma History of aneurysm Migraine Depression PTSD (post-traumatic stress disorder) History of panic attacks Anxiety Edema History of deviated nasal septum Medial epicondylitis of left elbow Fusion of spine, cervical region Surgical History (Updated 01/13/24 @ 14:43 by Vidhi Vora RN) History of carpal tunnel release Hx of cystoscopy H/O cervical spine surgery Hx of hand surgery Hx of right inguinal hernia repair History of hernia repair Hx of colonoscopy History of esophagogastroduodenoscopy (EGD) S/P repair of paraesophageal hernia H/O decompression of ulnar nerve Status post ablation of incompetent vein using laser History of cardiac catheterization History of eyelid surgery History of appendectomy History of parathyroidectomy History of cholecystectomy Hx of cataract surgery Hx of shoulder surgery S/P cubital tunnel release S/P arthroscopic surgery of right knee History of lumpectomy of both breasts History of hysterectomy Hx of adenoidectomy Hx of tonsillectomy Hx of eye surgery Family History Father Liver cancer Psoriasis Cancer Mental health disorder Mother Cervical cancer Ovarian cancer Heart attack Substance use disorder Social History Household Members: Children and None Housing: House Alcohol intake: current Alcohol intake frequency: does not drink Patient Tobacco Use Status: Former Tobacco user Tobacco use type: Cigarette e-Cigarette/Vaping Use: Never Used Second Hand Smoke Exposure: No service: No Current occupational status: employed 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 Sutures removed and Steri-Strips applied She can make a fist and extend all her digits Normal sensation in the median nerve distribution today in clinic Normal sensation in the ulnar nerve distribution today in clinic No tenderness to the dorsal ulnar hand, now with only very mild tenderness over the ECU tendon distal to the ulna Cap refill is brisk Nerve Conduction Study: Right-side only IMPRESSION: 1. [id number] right ulnar neuropathy in wrist. 2. Mild right median neuropathy across carpal tunnel. Beka Frost MD 07/29/2023 Psych Appearance: grossly normal Affect: normal affect Attitude: cooperative Assessment & Plan Assessment & Plan (1) Carpal tunnel syndrome of right wrist: Code(s): G56.01 - Carpal tunnel syndrome, right upper limb Category: Medical (2) Neuropathy of right ulnar nerve at wrist: Code(s): G56.21 - Lesion of ulnar nerve, right upper limb Category: Medical Plan Assessment & Plan: 1. Right carpal tunnel syndrome, S/P release DOS: 12/29/23 Pre-operative symptoms intermittent, but daily, worse at night Now with normal sensation, and significant improvement of overall hand pain The patient appears to be doing well post-operatively I educated her about the post-operative course I explained the signs and symptoms of infection I discussed activity modifications, she is to lift nothing heavier than a cellphone for the next two weeks She will perform gentle ROM exercises at home She should avoid any underwater activities for the next 5 days She should gently massage about the incision site to reduce the risk of hypersensitivity 2. Right ulnar-sided hand pain Most likely ECU tendinitis Significantly improved since her carpal tunnel surgery No complaints today in clinic This appears to have resolved with rest post-operatively 3. Right ulnar nerve compression at the wrist Based on nerve conduction study Now with normal sensation in the small and ring fingers I am glad she has had some good resolution, no intervention indicated at this time. If her symptoms return, we might also consider an MRI take a look at any source of ulnar nerve compression at the wrist, cyst versus aneurysm, etc.. Scribed for Marisol Cagle MD by Keyon Manzo medical records administrator, on 01/14/24 at 1:35 PM, EST. Coding Level of Care Code Global (09683) Diagnoses Carpal tunnel syndrome of right wrist G56.01 Neuropathy of right ulnar nerve at wrist G56.21
== END 2024-01-14 13:48 | disposition home or self-care (01) ==
PROVIDERS: PCP Nurse Practitioner Family; Visit Provider Orthopaedic Surgery
DX: G56.01 Carpal tunnel syndrome, right upper limb (principal); G56.21 Lesion of ulnar nerve, right upper limb
CPT/HCPCS: 99024

== ENCOUNTER → 2024-01-14 12:36 | Outpatient (BNVA) | payer MEDICARE, SELFPAY | PROVIDERS: PCP Nurse Practitioner Family; Visit Provider Orthopaedic Surgery | DX: G56.01 Carpal tunnel syndrome, right upper limb (principal); G56.21 Lesion of ulnar nerve, right upper limb | CPT/HCPCS: 99212 ==

== ENCOUNTER 2024-01-15 08:49 | Day surgery (SDC) | payer MEDICARE, SELFPAY ==
[2024-01-13 14:53] VITALS: BMI 32.5
--- NOTE | 2024-01-14 10:28 | P.CONAN_ITS ---
Documented by User: Kiana Brito NP 01/14/24 10:29 HPI - Anesthesia Eval Consult details Narrative: 73yo F for Upper Endoscopy with Balloon Dilitation with Savary Wire s/p TURBT 08/2023 with GA-LMA 3 [place] [facility] [place]. Last office visit 11/2023. Stable pulmo, Zpak for nasal congestion [place] [facility] CAD with diffuse disease as well as vascular atherosclerosis in the abdominal aorta. Nonobstructive CAD. Last office visit 04/2023, stable and ok for 1 year routine f/u. Multiple allergies PMFSH Active Problems Active Problems: All Active Problems Neuropathy of right ulnar nerve at wrist (Acute) Mold exposure (Acute) Cerumen debris on tympanic membrane (Acute) Dysphagia (Acute) Bladder cancer (Acute) Localized primary osteoarthritis of carpometacarpal joint of right thumb (Acute) Cubital tunnel syndrome on right (Acute) Carpal tunnel syndrome of right wrist (Acute) Bladder wall thickening (Acute) Bladder tumor (Acute) Stiffness of right hand joint (Acute) Numbness and tingling in right hand (Acute) Panic (Acute) Chronic post-traumatic stress disorder (PTSD) (Acute) Hematuria (Acute) History of nicotine use (Acute) Atypical pneumonia (Acute) Urinary urgency (Acute) Myasthenia gravis (Acute) Choking (Acute) Postmenopausal (Acute) Physical exam (Acute) Cervical myofascial pain syndrome (Acute) Ankle pain, right (Acute) Hand pain, right (Acute) Fall (on) (from) other stairs and steps, initial encounter (Acute) Allergies (Acute) Sprain of right ankle (Acute) PVCs (premature ventricular contractions) (Acute) Sinusitis (Acute) Greater trochanteric pain syndrome (Acute) Sacroiliac joint pain (Acute) White coat syndrome with diagnosis of hypertension (Acute) Chronic left sacroiliac joint pain (Acute) Lumbar degenerative disc disease (Acute) Lumbar spondylosis (Acute) Lumbar post-laminectomy syndrome (Acute) Right hip pain (Acute) Microscopic hematuria (Acute) Elevated alkaline phosphatase level (Acute) Adverse reaction to COVID-19 vaccine (Acute) Fatigue (Acute) Nausea & vomiting (Acute) Occipital neuralgia of left side (Acute) Failed back syndrome of cervical spine (Acute) Cervical spondylosis (Acute) Muscle spasm (Acute) Right trigger finger (Acute) Urinary tract infection (Acute) Upper respiratory tract infection (Acute) Cervical stenosis of spine (Acute) Varicose veins of left lower extremity with inflammation (Acute) Allergies (Acute) Fatigue (Acute) Urinary frequency (Acute) Arthralgia (Acute) Varicose veins of right lower extremity with inflammation (Acute) Headache (Acute) Osteoporosis (Acute) Bronchiolitis (Acute) Dyspnea on exertion (Acute) Atypical chest pain (Acute) Hyperlipidemia (Acute) Screening for breast cancer (Acute) Rectal urgency (Acute) Inguinal hernia (Acute) HTN (hypertension) (Acute) Right groin pain (Acute) Cervical radiculitis (Acute) Chronic sinusitis (Acute) GERD (gastroesophageal reflux disease) (Acute) FRANCESCA (obstructive sleep apnea) (Acute) CAD (coronary artery disease) (Acute) History of primary hyperparathyroidism (Acute) Non-toxic multinodular goiter (Acute) Osteoporosis (Acute) Pulmonary nodules (Acute) H/O gastroesophageal reflux (GERD) (Acute) Right inguinal hernia (Acute) Anxiety (Acute) Edema (Acute) Dizziness (Acute) Past Medical History Medical History Esophageal spasm Hx of carcinoma of bladder Bladder carcinoma History of trigger finger Cervical radiculitis Chronic sinusitis GERD (gastroesophageal reflux disease) FRANCESCA (obstructive sleep apnea) CAD (coronary artery disease) History of primary hyperparathyroidism Non-toxic multinodular goiter Osteoporosis Pulmonary nodules H/O gastroesophageal reflux (GERD) HLD (hyperlipidemia) HTN (hypertension) COPD (chronic obstructive pulmonary disease) Asthma History of aneurysm Migraine Depression PTSD (post-traumatic stress disorder) History of panic attacks Anxiety Edema History of deviated nasal septum Medial epicondylitis of left elbow Fusion of spine, cervical region Family History Family History Father Liver cancer Psoriasis Cancer Mental health disorder Mother Cervical cancer Ovarian cancer Heart attack Substance use disorder Family history of problems with anesthesia: No Surgical History Surgical History History of carpal tunnel release Hx of cystoscopy H/O cervical spine surgery Hx of hand surgery Hx of right inguinal hernia repair History of hernia repair Hx of colonoscopy History of esophagogastroduodenoscopy (EGD) S/P repair of paraesophageal hernia H/O decompression of ulnar nerve Status post ablation of incompetent vein using laser History of cardiac catheterization History of eyelid surgery History of appendectomy History of parathyroidectomy History of cholecystectomy Hx of cataract surgery Hx of shoulder surgery S/P cubital tunnel release S/P arthroscopic surgery of right knee History of lumpectomy of both breasts History of hysterectomy Hx of adenoidectomy Hx of tonsillectomy Hx of eye surgery History of Problems with Anesthesia: No Social History Social History Household Members: Children and None Housing: House Alcohol intake: current Alcohol intake frequency: does not drink Patient Tobacco Use Status: Former Tobacco user Tobacco use type: Cigarette e-Cigarette/Vaping Use: Never Used Second Hand Smoke Exposure: No Have you been hit, kicked, punched, or otherwise hurt by someone within the past year? 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 Cognitive needs: No Hearing needs: No Vision needs: No Meds Allergies Allergy/AdvReac Type Severity Reaction Status Date / Time dexlansoprazole Allergy Severe dizziness, Verified 01/14/24 12:54 [From DEXILANT] change in HR risedronate sodium Allergy Severe chest Verified 01/14/24 12:54 [From ACTONEL] discomfort [id number] Reductase Allergy Severe JOINT PAIN Verified 01/14/24 12:54 Inhibitor [[id number] REDUCTASE INHIBITOR] tramadol [TRAMADOL] Allergy Severe THROAT Verified 01/14/24 12:54 TIGHTNESS amlodipine [AMLODIPINE] Allergy Intermediate PALIPITATIO Verified 01/14/24 12:54 NS Atrovent Allergy Intermediate Cough Verified 01/14/24 12:54 baclofen [BACLOFEN] Allergy Intermediate LETHARGY Verified 01/14/24 12:54 Beta-Blockers Allergy Intermediate BRADYCARDIA Verified 01/14/24 12:54 (Beta-Adrenergic Bloc budesonide [From SYMBICORT] Allergy Intermediate HOARSENESS Verified 01/14/24 12:54 Chocolate Allergy Intermediate GERD Verified 01/14/24 12:54 ezetimibe [From ZETIA] Allergy Intermediate JOINT Verified 01/14/24 12:54 PAIN, ELEVATED CPK fluticasone Allergy Intermediate HTN Verified 01/14/24 12:54 [From ADVAIR DISKUS] glucosamine Allergy Intermediate LE edema Verified 01/14/24 12:54 ibandronate sodium Allergy Intermediate CHEST PAIN Verified 01/14/24 12:54 [From BONIVA] latex [LATEX] Allergy Intermediate RASH-SENSIT Verified 01/14/24 12:54 IVITY lisinopril [LISINOPRIL] Allergy Intermediate COUGH, Verified 01/14/24 12:54 really bad cough meloxicam [From MOBIC] Allergy Intermediate GI UPSET Verified 01/14/24 12:54 mometasone furoate Allergy Intermediate COUGH Verified 01/14/24 12:54 [From DULERA] niacin Allergy Intermediate Flushing Verified 01/14/24 12:54 Penicillins [PENICILLINS] Allergy Intermediate RASH Verified 01/14/24 12:54 pregabalin [From LYRICA] Allergy Intermediate GERD flare Verified 01/14/24 12:54 up raloxifene [From EVISTA] Allergy Intermediate GERD Verified 01/14/24 12:54 rofecoxib [From Vioxx] Allergy Intermediate ankle Verified 01/14/24 12:54 swelling salmeterol Allergy Intermediate HTN Verified 01/14/24 12:54 [From ADVAIR DISKUS] scallops [SCALLOPS] Allergy Intermediate NAUSEA & Verified 01/14/24 12:54 VOMITING sertraline [From ZOLOFT] Allergy Intermediate SKIN Verified 01/14/24 12:54 CRAWLING spironolactone Allergy Intermediate RASH, ?? Verified 01/14/24 12:54 [SPIRONOLACTONE] psoriasis strawberry [STRAWBERRY] Allergy Intermediate ITCHING Verified 01/14/24 12:54 tiotropium Allergy Intermediate RAW Verified 01/14/24 12:54 [From SPIRIVA WITH THROAT, HANDIHALER] pharyngitis verapamil [VERAPAMIL] Allergy Intermediate IRREGULAR Verified 01/14/24 12:54 HEARTBEAT esomeprazole [Nexium] Allergy Mild did not Verified 01/14/24 12:54 resolve GERD naproxen [From ALEVE] Allergy Mild FLUSH Verified 01/14/24 12:54 omeprazole Allergy Mild did not Verified 01/14/24 12:54 resolve GERD tacrolimus Allergy Mild Rash Verified 01/14/24 12:54 adhesive [ADHESIVE] Allergy Unknown RASH Verified 01/14/24 12:54 doxycycline [DOXYCYCLINE] Allergy Unknown SEVERE NOYOLA, Verified 01/14/24 12:54 HEARTBURN, joint pain gabapentin [From NEURONTIN] Allergy Unknown leg Verified 01/14/24 12:54 swelling, SOB metoclopramide [From REGLAN] Allergy Unknown LETHARGY Verified 01/14/24 12:54 monosodium glutamate [MSG] Allergy Unknown HEADACHE, Verified 01/14/24 12:54 increased HR lifitegrast [From Xiidra] Allergy blurred Verified 01/14/24 12:54 vision, headache, eye swelling metoprolol AdvReac Severe Severe Verified 01/14/24 12:54 bradycardia alendronate sodium AdvReac Intermediate Joint Pain Verified 01/14/24 12:54 [From Fosamax] amitriptyline AdvReac Intermediate Agitated Verified 01/14/24 12:54 cyclosporine [From Cequa] AdvReac Intermediate Eye Verified 01/14/24 12:54 Swelling fluticasone furoate AdvReac Intermediate asthma Verified 01/14/24 12:54 [From Trelegy Ellipta] exacerbation perfluorohexyloctane AdvReac Intermediate Eye Verified 01/14/24 12:54 [From Miebo] Swelling tobramycin [From Tobrex] AdvReac Intermediate Eye Verified 01/14/24 12:54 Swelling umeclidinium AdvReac Intermediate asthma Verified 01/14/24 12:54 [From Trelegy Ellipta] exacerbation vilanterol AdvReac Intermediate asthma Verified 01/14/24 12:54 [From Trelegy Ellipta] exacerbation azelastine AdvReac Mild Gastrointestinal Verified 01/14/24 12:54 Upset hi AdvReac Intermediate Itchy Eyes Uncoded 12/31/23 08:00 Sulindac AdvReac Intermediate Nausea, Uncoded 12/31/23 08:00 pain Home Medications ?Medication ?Instructions ?Recorded ?Confirmed ?Last Taken ?Type Bifidobacterium infantis 4 mg 4 mg PO DAILY 11/17/19 01/13/24 Unknown History capsule (Align) aspirin 81 mg tablet,delayed 81 mg PO DAILY 11/17/19 01/13/24 01/06/24 History release (Adult Aspirin Regimen) betamethasone dipropionate 0.05 % 1 applic topical DIRECTED 11/17/19 01/13/24 Unknown History topical cream cyclosporine 0.05 % eye drops in a 1 drp ophthalmic (eye) Q12H 11/17/19 01/13/24 08/19/23 06:30 History dropperette (Restasis) docusate sodium 100 mg capsule 100 mg PO BID 11/17/19 01/13/24 Unknown History (Colace) magnesium oxide 500 mg PO DAILY 11/17/19 01/13/24 Unknown History cetirizine 10 mg tablet (Zyrtec) 10 mg PO DAILY PRN Allergy Symptoms 01/16/22 01/13/24 Unknown History prednisolone acetate 1 % eye 1 drp ophthalmic (eye) QID 12/25/22 01/13/24 08/19/23 06:30 History drops,suspension dextran 70-hypromellose (PF) 0.1 1 drp ophthalmic (eye) BEDTIME 03/19/23 01/13/24 Unknown History %-0.3 % eye drops in a dropperette (Artificial Tears (PF)) erythromycin 5 mg/gram (0.5 %) eye 1 appl ophthalmic (eye) DAILY 01/02/24 01/13/24 Unknown History ointment Exam Pertinent Lab Results Pertinent Lab Results: Laboratory Tests 12/05/23 12/22/23 07:09 08:04 WBC 5.7 Hgb 13.3 Hct 41.1 Plt Count 320 Sodium 140 Potassium 3.6 Chloride 104 Carbon Dioxide 29 BUN 12 Creatinine 0.86 Narrative Narrative: EKG 04/2023 normal sinus rhythm with poor R-wave progression ECHO 2020 Conclusions: - The left ventricular systolic function is normal. The visually estimated ejection fraction is between 65-70%. - No obvious valvular pathology seen on this study. - (re-signed 05/31 due to technical issues) XR chest 2V 04/2023 IMPRESSION: No acute cardiopulmonary disease. Airway Neck ROM: Full (Cervical fusion but good extension ) Loose/Missing/Broken Teeth: Yes (Top right and left back- 1 missing each side. Denies broken or loose teeth ) Assessment and Plan Assessment Anesthesia Assessment: Chart Reviewed Final Anesthetic Review Family History of Problems with Anesthesia: No History of Problems with Anesthesia: No Documented by User: Allyson Mora MD 01/15/24 10:54 [facility] Past Medical History Medical History Esophageal spasm Hx of carcinoma of bladder Bladder carcinoma History of trigger finger Cervical radiculitis Chronic sinusitis GERD (gastroesophageal reflux disease) FRANCESCA (obstructive sleep apnea) CAD (coronary artery disease) History of primary hyperparathyroidism Non-toxic multinodular goiter Osteoporosis Pulmonary nodules H/O gastroesophageal reflux (GERD) HLD (hyperlipidemia) HTN (hypertension) COPD (chronic obstructive pulmonary disease) Asthma History of aneurysm Migraine Depression PTSD (post-traumatic stress disorder) History of panic attacks Anxiety Edema History of deviated nasal septum Medial epicondylitis of left elbow Fusion of spine, cervical region Family History Family History Father Liver cancer Psoriasis Cancer Mental health disorder Mother Cervical cancer Ovarian cancer Heart attack Substance use disorder Surgical History Surgical History History of carpal tunnel release Hx of cystoscopy H/O cervical spine surgery Hx of hand surgery Hx of right inguinal hernia repair History of hernia repair Hx of colonoscopy History of esophagogastroduodenoscopy (EGD) S/P repair of paraesophageal hernia H/O decompression of ulnar nerve Status post ablation of incompetent vein using laser History of cardiac catheterization History of eyelid surgery History of appendectomy History of parathyroidectomy History of cholecystectomy Hx of cataract surgery Hx of shoulder surgery S/P cubital tunnel release S/P arthroscopic surgery of right knee History of lumpectomy of both breasts History of hysterectomy Hx of adenoidectomy Hx of tonsillectomy Hx of eye surgery Social History Social History Household Members: Children and None Housing: House Alcohol intake: current Alcohol intake frequency: does not drink Patient Tobacco Use Status: Former Tobacco user Tobacco use type: Cigarette e-Cigarette/Vaping Use: Never Used Second Hand Smoke Exposure: No Have you been hit, kicked, punched, or otherwise hurt by someone within the past year? 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 Cognitive needs: No Hearing needs: No Vision needs: No Meds Allergies Allergy/AdvReac Type Severity Reaction Status Date / Time dexlansoprazole Allergy Severe dizziness, Verified 01/14/24 12:54 [From DEXILANT] change in HR risedronate sodium Allergy Severe chest Verified 01/14/24 12:54 [From ACTONEL] discomfort Iggokea-OLA-TyX Reductase Allergy Severe JOINT PAIN Verified 01/14/24 12:54 Inhibitor [[id number] REDUCTASE INHIBITOR] tramadol [TRAMADOL] Allergy Severe THROAT Verified 01/14/24 12:54 TIGHTNESS amlodipine [AMLODIPINE] Allergy Intermediate PALIPITATIO Verified 01/14/24 12:54 NS Atrovent Allergy Intermediate Cough Verified 01/14/24 12:54 baclofen [BACLOFEN] Allergy Intermediate LETHARGY Verified 01/14/24 12:54 Beta-Blockers Allergy Intermediate BRADYCARDIA Verified 01/14/24 12:54 (Beta-Adrenergic Bloc budesonide [From SYMBICORT] Allergy Intermediate HOARSENESS Verified 01/14/24 12:54 Chocolate Allergy Intermediate GERD Verified 01/14/24 12:54 ezetimibe [From ZETIA] Allergy Intermediate JOINT Verified 01/14/24 12:54 PAIN, ELEVATED CPK fluticasone Allergy Intermediate HTN Verified 01/14/24 12:54 [From ADVAIR DISKUS] glucosamine Allergy Intermediate LE edema Verified 01/14/24 12:54 ibandronate sodium Allergy Intermediate CHEST PAIN Verified 01/14/24 12:54 [From BONIVA] latex [LATEX] Allergy Intermediate RASH-SENSIT Verified 01/14/24 12:54 IVITY lisinopril [LISINOPRIL] Allergy Intermediate COUGH, Verified 01/14/24 12:54 really bad cough meloxicam [From MOBIC] Allergy Intermediate GI UPSET Verified 01/14/24 12:54 mometasone furoate Allergy Intermediate COUGH Verified 01/14/24 12:54 [From DULERA] niacin Allergy Intermediate Flushing Verified 01/14/24 12:54 Penicillins [PENICILLINS] Allergy Intermediate RASH Verified 01/14/24 12:54 pregabalin [From LYRICA] Allergy Intermediate GERD flare Verified 01/14/24 12:54 up raloxifene [From EVISTA] Allergy Intermediate GERD Verified 01/14/24 12:54 rofecoxib [From Vioxx] Allergy Intermediate ankle Verified 01/14/24 12:54 swelling salmeterol Allergy Intermediate HTN Verified 01/14/24 12:54 [From ADVAIR DISKUS] scallops [SCALLOPS] Allergy Intermediate NAUSEA & Verified 01/14/24 12:54 VOMITING sertraline [From ZOLOFT] Allergy Intermediate SKIN Verified 01/14/24 12:54 CRAWLING spironolactone Allergy Intermediate RASH, ?? Verified 01/14/24 12:54 [SPIRONOLACTONE] psoriasis strawberry [STRAWBERRY] Allergy Intermediate ITCHING Verified 01/14/24 12:54 tiotropium Allergy Intermediate RAW Verified 01/14/24 12:54 [From SPIRIVA WITH THROAT, HANDIHALER] pharyngitis verapamil [VERAPAMIL] Allergy Intermediate IRREGULAR Verified 01/14/24 12:54 HEARTBEAT esomeprazole [Nexium] Allergy Mild did not Verified 01/14/24 12:54 resolve GERD naproxen [From ALEVE] Allergy Mild FLUSH Verified 01/14/24 12:54 omeprazole Allergy Mild did not Verified 01/14/24 12:54 resolve GERD tacrolimus Allergy Mild Rash Verified 01/14/24 12:54 adhesive [ADHESIVE] Allergy Unknown RASH Verified 01/14/24 12:54 doxycycline [DOXYCYCLINE] Allergy Unknown SEVERE NOYOLA, Verified 01/14/24 12:54 HEARTBURN, joint pain gabapentin [From NEURONTIN] Allergy Unknown leg Verified 01/14/24 12:54 swelling, SOB metoclopramide [From REGLAN] Allergy Unknown LETHARGY Verified 01/14/24 12:54 monosodium glutamate [MSG] Allergy Unknown HEADACHE, Verified 01/14/24 12:54 increased HR lifitegrast [From Xiidra] Allergy blurred Verified 01/14/24 12:54 vision, headache, eye swelling metoprolol AdvReac Severe Severe Verified 01/14/24 12:54 bradycardia alendronate sodium AdvReac Intermediate Joint Pain Verified 01/14/24 12:54 [From Fosamax] amitriptyline AdvReac Intermediate Agitated Verified 01/14/24 12:54 cyclosporine [From Cequa] AdvReac Intermediate Eye Verified 01/14/24 12:54 Swelling fluticasone furoate AdvReac Intermediate asthma Verified 01/14/24 12:54 [From Trelegy Ellipta] exacerbation perfluorohexyloctane AdvReac Intermediate Eye Verified 01/14/24 12:54 [From Miebo] Swelling tobramycin [From Tobrex] AdvReac Intermediate Eye Verified 01/14/24 12:54 Swelling umeclidinium AdvReac Intermediate asthma Verified 01/14/24 12:54 [From Trelegy Ellipta] exacerbation vilanterol AdvReac Intermediate asthma Verified 01/14/24 12:54 [From Trelegy Ellipta] exacerbation azelastine AdvReac Mild Gastrointestinal Verified 01/14/24 12:54 Upset hi AdvReac Intermediate Itchy Eyes Uncoded 12/31/23 08:00 Sulindac AdvReac Intermediate Nausea, Uncoded 12/31/23 08:00 pain Home Medications ?Medication ?Instructions ?Recorded ?Confirmed ?Last Taken ?Type Bifidobacterium infantis 4 mg 4 mg PO DAILY 11/17/19 01/13/24 Unknown History capsule (Align) aspirin 81 mg tablet,delayed 81 mg PO DAILY 11/17/19 01/13/24 01/06/24 History release (Adult Aspirin Regimen) betamethasone dipropionate 0.05 % 1 applic topical DIRECTED 11/17/19 01/13/24 Unknown History topical cream cyclosporine 0.05 % eye drops in a 1 drp ophthalmic (eye) Q12H 11/17/19 01/13/24 08/19/23 06:30 History dropperette (Restasis) docusate sodium 100 mg capsule 100 mg PO BID 11/17/19 01/13/24 Unknown History (Colace) magnesium oxide 500 mg PO DAILY 11/17/19 01/13/24 Unknown History cetirizine 10 mg tablet (Zyrtec) 10 mg PO DAILY PRN Allergy Symptoms 01/16/22 01/13/24 Unknown History prednisolone acetate 1 % eye 1 drp ophthalmic (eye) QID 12/25/22 01/13/24 08/19/23 06:30 History drops,suspension dextran 70-hypromellose (PF) 0.1 1 drp ophthalmic (eye) BEDTIME 03/19/23 01/13/24 Unknown History %-0.3 % eye drops in a dropperette (Artificial Tears (PF)) erythromycin 5 mg/gram (0.5 %) eye 1 appl ophthalmic (eye) DAILY 01/02/24 01/13/24 Unknown History ointment Exam Airway Heart: rrr Lungs: cta Assessment and Plan Assessment Anesthesia Assessment: Anesthesia Plan Discussed Final Anesthetic Review NPO: Yes ASA Class: III (anxious) Final Preanesthetic Review: No Changes in Pt Med Stat, Meds/Allgs Chart Reviewed, Consent Obtained/Reviewed and Anes Risks/Benef Reviewed Patient Risk: Intermediate Procedure Risk: Low Anesthetic Plan Anesthetic Plan: MAC: Disposition: Standard PACU
[2024-01-15 10:23] VITALS: BMI 33.0
[2024-01-15 10:41] VITALS: BP 172/80; PULSE 87; RESP 18; TEMP 37; O2SAT 96
[2024-01-15] MEDS: Lactated Ringers 1,000 ML 100 ML IVCONT (10:53)
--- NOTE | 2024-01-15 11:11 | P.HPSUR_ITS ---
Pre-Procedural Eval Section A - 24 Hr Update-Section A only Date of Service: 01/15/24 Section B - Complete if H&P > 30 days Chief Complaint: gerd,dysphagia Relevant Family History (Specify if Yes): No Relevant Social History: None Present Medications: see Short Stay Collaborative assessment Medical History: Significant History ( Esophageal spasm Hx of carcinoma of bladder Bladder carcinoma History of trigger finger Cervical radiculitis Chronic sinusitis GERD (gastroesophageal reflux disease) FRANCESCA (obstructive sleep apnea) CAD (coronary artery disease) History of primary hyperparathyroidism Non-toxic multinodular goiter Oste) History of Previous Operations: Relevant previous surgery/procedure and date(s) (History of carpal tunnel release Hx of cystoscopy H/O cervical spine surgery Hx of hand surgery Hx of right inguinal hernia repair History of hernia repair Hx of colonoscopy History of esophagogastroduodenoscopy (EGD) S/P repair of paraesophageal hernia H/O decompression of ulnar nerve Status post a) Allergies: Allergies Allergy/AdvReac Type Severity Reaction Status Date / Time dexlansoprazole Allergy Severe dizziness, Verified 01/14/24 12:54 [From DEXILANT] change in HR risedronate sodium Allergy Severe chest Verified 01/14/24 12:54 [From ACTONEL] discomfort Taatjhd-NWO-DpX Reductase Allergy Severe JOINT PAIN Verified 01/14/24 12:54 Inhibitor [[id number] REDUCTASE INHIBITOR] tramadol [TRAMADOL] Allergy Severe THROAT Verified 01/14/24 12:54 TIGHTNESS amlodipine [AMLODIPINE] Allergy Intermediate PALIPITATIO Verified 01/14/24 12:54 NS Atrovent Allergy Intermediate Cough Verified 01/14/24 12:54 baclofen [BACLOFEN] Allergy Intermediate LETHARGY Verified 01/14/24 12:54 Beta-Blockers Allergy Intermediate BRADYCARDIA Verified 01/14/24 12:54 (Beta-Adrenergic Bloc budesonide [From SYMBICORT] Allergy Intermediate HOARSENESS Verified 01/14/24 12:54 Chocolate Allergy Intermediate GERD Verified 01/14/24 12:54 ezetimibe [From ZETIA] Allergy Intermediate JOINT Verified 01/14/24 12:54 PAIN, ELEVATED CPK fluticasone Allergy Intermediate HTN Verified 01/14/24 12:54 [From ADVAIR DISKUS] glucosamine Allergy Intermediate LE edema Verified 01/14/24 12:54 ibandronate sodium Allergy Intermediate CHEST PAIN Verified 01/14/24 12:54 [From BONIVA] latex [LATEX] Allergy Intermediate RASH-SENSIT Verified 01/14/24 12:54 IVITY lisinopril [LISINOPRIL] Allergy Intermediate COUGH, Verified 01/14/24 12:54 really bad cough meloxicam [From MOBIC] Allergy Intermediate GI UPSET Verified 01/14/24 12:54 mometasone furoate Allergy Intermediate COUGH Verified 01/14/24 12:54 [From DULERA] niacin Allergy Intermediate Flushing Verified 01/14/24 12:54 Penicillins [PENICILLINS] Allergy Intermediate RASH Verified 01/14/24 12:54 pregabalin [From LYRICA] Allergy Intermediate GERD flare Verified 01/14/24 12:54 up raloxifene [From EVISTA] Allergy Intermediate GERD Verified 01/14/24 12:54 rofecoxib [From Vioxx] Allergy Intermediate ankle Verified 01/14/24 12:54 swelling salmeterol Allergy Intermediate HTN Verified 01/14/24 12:54 [From ADVAIR DISKUS] scallops [SCALLOPS] Allergy Intermediate NAUSEA & Verified 01/14/24 12:54 VOMITING sertraline [From ZOLOFT] Allergy Intermediate SKIN Verified 01/14/24 12:54 CRAWLING spironolactone Allergy Intermediate RASH, ?? Verified 01/14/24 12:54 [SPIRONOLACTONE] psoriasis strawberry [STRAWBERRY] Allergy Intermediate ITCHING Verified 01/14/24 12:54 tiotropium Allergy Intermediate RAW Verified 01/14/24 12:54 [From SPIRIVA WITH THROAT, HANDIHALER] pharyngitis verapamil [VERAPAMIL] Allergy Intermediate IRREGULAR Verified 01/14/24 12:54 HEARTBEAT esomeprazole [Nexium] Allergy Mild did not Verified 01/14/24 12:54 resolve GERD naproxen [From ALEVE] Allergy Mild FLUSH Verified 01/14/24 12:54 omeprazole Allergy Mild did not Verified 01/14/24 12:54 resolve GERD tacrolimus Allergy Mild Rash Verified 01/14/24 12:54 adhesive [ADHESIVE] Allergy Unknown RASH Verified 01/14/24 12:54 doxycycline [DOXYCYCLINE] Allergy Unknown SEVERE NOYOLA, Verified 01/14/24 12:54 HEARTBURN, joint pain gabapentin [From NEURONTIN] Allergy Unknown leg Verified 01/14/24 12:54 swelling, SOB metoclopramide [From REGLAN] Allergy Unknown LETHARGY Verified 01/14/24 12:54 monosodium glutamate [MSG] Allergy Unknown HEADACHE, Verified 01/14/24 12:54 increased HR lifitegrast [From Xiidra] Allergy blurred Verified 01/14/24 12:54 vision, headache, eye swelling metoprolol AdvReac Severe Severe Verified 01/14/24 12:54 bradycardia alendronate sodium AdvReac Intermediate Joint Pain Verified 01/14/24 12:54 [From Fosamax] amitriptyline AdvReac Intermediate Agitated Verified 01/14/24 12:54 cyclosporine [From Cequa] AdvReac Intermediate Eye Verified 01/14/24 12:54 Swelling fluticasone furoate AdvReac Intermediate asthma Verified 01/14/24 12:54 [From Trelegy Ellipta] exacerbation perfluorohexyloctane AdvReac Intermediate Eye Verified 01/14/24 12:54 [From Miebo] Swelling tobramycin [From Tobrex] AdvReac Intermediate Eye Verified 01/14/24 12:54 Swelling umeclidinium AdvReac Intermediate asthma Verified 01/14/24 12:54 [From Trelegy Ellipta] exacerbation vilanterol AdvReac Intermediate asthma Verified 01/14/24 12:54 [From Trelegy Ellipta] exacerbation azelastine AdvReac Mild Gastrointestinal Verified 01/14/24 12:54 Upset hi AdvReac Intermediate Itchy Eyes Uncoded 12/31/23 08:00 Sulindac AdvReac Intermediate Nausea, Uncoded 12/31/23 08:00 pain Review of Systems Sugical H&P ROS: Negative: Constitution, Cardiovascular, Respiratory, Neur ological, Psychiatric, Hem-Onc, Allergic/Immunologic, Gastrointestinal, Genitourinary, Musculoskeletal, Integumentary, Endocrine and Eyes/Ears/Nose/Throat Exam Surgical H&P Exam: Normal: HEENT, Normal: Heart, Normal: Lungs, Normal: Extremities, Normal: Abdomen, Normal: Skin and Normal: Neurological Plan Diagnosis/Plan: Unchanged I have reviewed the history and physical and performed a pertinent physical examination on my patient. No changes have occurred unless specified. Time Spent With Patient Time: Total time managing care of this patient today ____ minutes.
--- NOTE | 2024-01-15 11:49 | W.PM.OPN ---
Operative Note Operative Note Date of Service: 01/15/24 Narrative: Procedure Description: EGD Indication: dysphagia Anesthesia: MAC FLEXIBLE TRANSORAL UPPER GASTROINTESTINAL ENDOSCOPY UPPER ENDOSCOPY Consent: Indications for the procedure and potential complications of bleeding, perforation, reaction to medications and missed diagnosis were discussed with the patient and informed consent was obtained. Instrument: Olympus GIF H 190 J mid size upper endoscope Monitoring: Vital signs and clinical assessment, continuous EKG monitoring, Pulse oximetry, Carbon Dioxide monitoring and blood pressure monitoring were done throughout the procedure. Procedure: The patient was placed in the left lateral decubitis position and pre-procedure medications were administered and a bite block was placed. The endoscope was inserted into the mouth and advanced under direct vision to the third part of duodenum. A careful inspection was made as the upper endoscope was withdrawn including a retroflexed examination of the proximal stomach; Findings and interventions are described below. Findings: Larynx:normal Esophagus: GE junction at 30 cm, diaphragm hiatus at 32 cm, small sliding hiatal hernia with lax LES noted, savary wire guided dilation with 16 mm bougie Stomach: normal appearing mucosa .Grade 2 flap valve on retroflexed examination of the cardia. Duodenum: Normal bulb and descending duodenum, Intervention: Savary wire guided dilation, Impression/Findings: dysphagia s/p savary dilation PLAN: reflux precautions repeat dilation prn soft diet today and advance as tolerated
[2024-01-15 11:54] VITALS: BP 100/65; PULSE 84; RESP 16; TEMP 36.1; O2SAT 91
[2024-01-15 12:09] VITALS: BP 132/70; PULSE 78; RESP 16; O2SAT 96
[2024-01-15 12:24] VITALS: BP 129/66; PULSE 68; RESP 16; TEMP 36.1; O2SAT 99
== END 2024-01-15 13:08 | disposition home or self-care (01) ==
PROVIDERS: PCP Nurse Practitioner Family; Visit Provider Internal Medicine Gastroenterology
PROC: (CPT 43248; principal; 2024-01-15 11:40)
DX: K22.4 Dyskinesia of esophagus (principal); K44.9 Diaphragmatic hernia without obstruction or gangrene; R13.10 Dysphagia, unspecified; K21.9 Gastro-esophageal reflux disease without esophagitis; Z87.19 Personal history of other diseases of the digestive system; I10 Essential (primary) hypertension; E78.5 Hyperlipidemia, unspecified; G47.33 Obstructive sleep apnea (adult) (pediatric); C67.9 Malignant neoplasm of bladder, unspecified; Z87.891 Personal history of nicotine dependence; Z79.899 Other long term (current) drug therapy; Z79.82 Long term (current) use of aspirin
CPT/HCPCS: 43248; C1769; J2003; J2250; J2704

== ENCOUNTER → 2024-01-15 08:49 | Outpatient (BNV) | payer MEDICARE, SELFPAY | PROVIDERS: PCP Nurse Practitioner Family; Visit Provider Internal Medicine Gastroenterology | DX: R13.10 Dysphagia, unspecified (principal) | CPT/HCPCS: 43248 ==

== ENCOUNTER 2024-02-09 06:39 | Outpatient (REF) | payer MEDICARE, SELFPAY ==
[2024-02-09 09:59] LABS: MANUAL DIFF FLAG NO
[2024-02-09 10:03] LABS: Basophils Absolute Auto 0.1 X10*3/uL (0.0-0.2); Basophils Percent Auto 1.5 % (0-2); Eosinophils Absolute Auto 0.2 X10*3/uL (0.0-0.4); Eosinophils Percent Auto 2.8 % (0-4); Hematocrit 40.4 % (37.0-47.0); Hemoglobin 13.2 g/dl (12.0-16.0); Imm Gran Abs Auto 0.01 X10*3/uL (0.00-0.03); Imm Gran Pct Auto 0.1 % (0.0-0.4); Lymphocytes Absolute Auto 2.1 X10*3/uL (1.2-4.9); Lymphocytes Percent Auto 28.9 % (20-40); Mean Corpuscular HGB Conc 32.7 g/dl (31.0-35.0); Mean Corpuscular Hemoglobin 29.3 pg (27.0-33.0); Mean Corpuscular Volume 89.8 fL (80.0-98.0); Mean Platelet Volume 11.1 fL (9.4-12.3); Monocytes Absolute Auto 0.5 X10*3/uL (0.1-1.2); Monocytes Percent Auto 7.2 % (2-11); Neutrophils Absolute Auto 4.2 x10*3/uL (2.0-8.3); Neutrophils Percent Auto 59.5 % (45-73); Platelet Count 323 X10*3/uL (160-400); Red Cell Distribution Width 12.3 % (11.0-16.0); White Blood Count 7.1 X10*3/uL (4.8-10.8)
[2024-02-09 10:25] LABS: Alanine Aminotransferase 11 U/L (0-31); Albumin Level 3.9 g/dL (3.5-5.0); Alkaline Phosphatase 80 U/L (39-117); Anion Gap 14 (12-20); Aspartate Amino Transferase 22 U/L (5-31); Bilirubin Total 0.4 mg/dL (0.0-1.0); Blood Urea Nitrogen 14 mg/dL (9-16); Calcium 8.2 mg/dL (8.4-10.2); Carbon Dioxide 28 mmol/L (22-29); Chloride 105 mmol/L (96-108); Estimated Glomerular Filt Rate 58; Glucose Random 104 mg/dL (60-115); Potassium 3.5 mmol/L (3.3-5.1); Sodium 143 mmol/L (135-145); Total Protein 6.7 g/dL (6.5-8.0)
== END 2024-02-09 06:40 | disposition home or self-care (01) ==
LOC: HO.HMGCLDS 06:39
PROVIDERS: PCP Nurse Practitioner Family; Visit Provider Nurse Practitioner Family
DX: I10 Essential (primary) hypertension (principal)
CPT/HCPCS: 36415; 80053; 85025

== ENCOUNTER 2024-02-10 08:09 | Outpatient (AMB) | payer MEDICARE, SELFPAY ==
--- NOTE | 2024-02-10 08:34 | MHC.OFFVIS ---
Intake Visit Reasons: P/O S/P RT CTR 12/29/23 Intake Note: Adali is a 73 year old 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 female who presents today for a post operative appointment s/p Right CTR 12/29/23. Patient reports that she continues to have pain on the mcgee aspect of the right hand. She explains that this area is painful to palpitation and she is unable to weight bear on it, open jars or grasp objects without pain. She Has some intermittent numbness of the fingers. She also demonstrates that when putting pressure on the ulnar aspect of the wrist the small finger begins to contract. Allergies dexlansoprazole [From DEXILANT] Allergy (Severe, Verified 02/10/24 08:40) dizziness, change in HR risedronate sodium [From ACTONEL] Allergy (Severe, Verified 02/10/24 08:40) chest discomfort Rtukawa-JBZ-NkA Reductase Inhibitor [JUPUQRZ-SKU-EYS REDUCTASE INHIBITOR] Allergy (Severe, Verified 02/10/24 08:40) JOINT PAIN tramadol [TRAMADOL] Allergy (Severe, Verified 02/10/24 08:40) THROAT TIGHTNESS amlodipine [AMLODIPINE] Allergy (Intermediate, Verified 02/10/24 08:40) PALIPITATIONS Atrovent Allergy (Intermediate, Verified 02/10/24 08:40) Cough baclofen [BACLOFEN] Allergy (Intermediate, Verified 02/10/24 08:40) LETHARGY Beta-Blockers (Beta-Adrenergic Bloc Allergy (Intermediate, Verified 02/10/24 08:40) BRADYCARDIA budesonide [From SYMBICORT] Allergy (Intermediate, Verified 02/10/24 08:40) HOARSENESS Chocolate Allergy (Intermediate, Verified 02/10/24 08:40) GERD ezetimibe [From ZETIA] Allergy (Intermediate, Verified 02/10/24 08:40) JOINT PAIN, ELEVATED CPK fluticasone [From ADVAIR DISKUS] Allergy (Intermediate, Verified 02/10/24 08:40) HTN glucosamine Allergy (Intermediate, Verified 02/10/24 08:40) LE edema ibandronate sodium [From BONIVA] Allergy (Intermediate, Verified 02/10/24 08:40) CHEST PAIN latex [LATEX] Allergy (Intermediate, Verified 02/10/24 08:40) RASH-SENSITIVITY lisinopril [LISINOPRIL] Allergy (Intermediate, Verified 02/10/24 08:40) COUGH, really bad cough meloxicam [From MOBIC] Allergy (Intermediate, Verified 02/10/24 08:40) GI UPSET mometasone furoate [From DULERA] Allergy (Intermediate, Verified 02/10/24 08:40) COUGH niacin Allergy (Intermediate, Verified 02/10/24 08:40) Flushing Penicillins [PENICILLINS] Allergy (Intermediate, Verified 02/10/24 08:40) RASH pregabalin [From LYRICA] Allergy (Intermediate, Verified 02/10/24 08:40) GERD flare up raloxifene [From EVISTA] Allergy (Intermediate, Verified 02/10/24 08:40) GERD rofecoxib [From Vioxx] Allergy (Intermediate, Verified 02/10/24 08:40) ankle swelling salmeterol [From ADVAIR DISKUS] Allergy (Intermediate, Verified 02/10/24 08:40) HTN scallops [SCALLOPS] Allergy (Intermediate, Verified 02/10/24 08:40) NAUSEA & VOMITING sertraline [From ZOLOFT] Allergy (Intermediate, Verified 02/10/24 08:40) SKIN CRAWLING spironolactone [SPIRONOLACTONE] Allergy (Intermediate, Verified 02/10/24 08:40) RASH, ?? psoriasis strawberry [STRAWBERRY] Allergy (Intermediate, Verified 02/10/24 08:40) ITCHING tiotropium [From SPIRIVA WITH HANDIHALER] Allergy (Intermediate, Verified 02/10/24 08:40) RAW THROAT, pharyngitis verapamil [VERAPAMIL] Allergy (Intermediate, Verified 02/10/24 08:40) IRREGULAR HEARTBEAT esomeprazole [Nexium] Allergy (Mild, Verified 02/10/24 08:40) did not resolve GERD naproxen [From ALEVE] Allergy (Mild, Verified 02/10/24 08:40) FLUSH omeprazole Allergy (Mild, Verified 02/10/24 08:40) did not resolve GERD tacrolimus Allergy (Mild, Verified 02/10/24 08:40) Rash adhesive [ADHESIVE] Allergy (Unknown, Verified 02/10/24 08:40) RASH doxycycline [DOXYCYCLINE] Allergy (Unknown, Verified 02/10/24 08:40) SEVERE NOYOLA, HEARTBURN, joint pain gabapentin [From NEURONTIN] Allergy (Unknown, Verified 02/10/24 08:40) leg swelling, SOB metoclopramide [From REGLAN] Allergy (Unknown, Verified 02/10/24 08:40) LETHARGY monosodium glutamate [MSG] Allergy (Unknown, Verified 02/10/24 08:40) HEADACHE, increased HR lifitegrast [From Xiidra] Allergy (Verified 02/10/24 08:40) blurred vision, headache, eye swelling metoprolol Adverse Reaction (Severe, Verified 02/10/24 08:40) Severe bradycardia alendronate sodium [From Fosamax] Adverse Reaction (Intermediate, Verified 02/10/24 08:40) Joint Pain amitriptyline Adverse Reaction (Intermediate, Verified 02/10/24 08:40) Agitated cyclosporine [From Cequa] Adverse Reaction (Intermediate, Verified 02/10/24 08:40) Eye Swelling fluticasone furoate [From Trelegy Ellipta] Adverse Reaction (Intermediate, Verified 02/10/24 08:40) asthma exacerbation perfluorohexyloctane [From Miebo] Adverse Reaction (Intermediate, Verified 02/10/24 08:40) Eye Swelling tobramycin [From Tobrex] Adverse Reaction (Intermediate, Verified 02/10/24 08:40) Eye Swelling umeclidinium [From Trelegy Ellipta] Adverse Reaction (Intermediate, Verified 02/10/24 08:40) asthma exacerbation vilanterol [From Trelegy Ellipta] Adverse Reaction (Intermediate, Verified 02/10/24 08:40) asthma exacerbation azelastine Adverse Reaction (Mild, Verified 02/10/24 08:40) Gastrointestinal Upset hi Adverse Reaction (Intermediate, Uncoded 02/10/24 08:40) Itchy Eyes Sulindac Adverse Reaction (Intermediate, Uncoded 02/10/24 08:40) Nausea, pain HPI HPI P/O S/P RT CTR 12/29/23: Details: Adali is a 73 year old 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 female who presents today for a post operative appointment s/p Right CTR 12/29/23. Patient reports that she continues to have pain on the mcgee aspect of the right hand. She explains that this area is painful to palpitation and she is unable to weight bear on it, open jars or grasp objects without pain. She Has some intermittent numbness of the fingers. She also demonstrates that when putting pressure on the ulnar aspect of the wrist the small finger begins to contract. [facility] Medical History Esophageal spasm Hx of carcinoma of bladder Bladder carcinoma History of trigger finger Cervical radiculitis Chronic sinusitis GERD (gastroesophageal reflux disease) FRANCESCA (obstructive sleep apnea) CAD (coronary artery disease) History of primary hyperparathyroidism Non-toxic multinodular goiter Osteoporosis Pulmonary nodules H/O gastroesophageal reflux (GERD) HLD (hyperlipidemia) HTN (hypertension) COPD (chronic obstructive pulmonary disease) Asthma History of aneurysm Migraine Depression PTSD (post-traumatic stress disorder) History of panic attacks Anxiety Edema History of deviated nasal septum Medial epicondylitis of left elbow Fusion of spine, cervical region Surgical History History of carpal tunnel release Hx of cystoscopy H/O cervical spine surgery Hx of hand surgery Hx of right inguinal hernia repair History of hernia repair Hx of colonoscopy History of esophagogastroduodenoscopy (EGD) S/P repair of paraesophageal hernia H/O decompression of ulnar nerve Status post ablation of incompetent vein using laser History of cardiac catheterization History of eyelid surgery History of appendectomy History of parathyroidectomy History of cholecystectomy Hx of cataract surgery Hx of shoulder surgery S/P cubital tunnel release S/P arthroscopic surgery of right knee History of lumpectomy of both breasts History of hysterectomy Hx of adenoidectomy Hx of tonsillectomy Hx of eye surgery Family History Father Liver cancer Psoriasis Cancer Mental health disorder Mother Cervical cancer Ovarian cancer Heart attack Substance use disorder Social History Household Members: Children and None Housing: House Alcohol intake: current Alcohol intake frequency: does not drink Patient Tobacco Use Status: Former Tobacco user Tobacco use type: Cigarette e-Cigarette/Vaping Use: Never Used Second Hand Smoke Exposure: No service: No Current occupational status: employed 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 She can make a fist and extend all her digits Normal sensation in the median nerve distribution today in clinic Normal sensation in the ulnar nerve distribution today in clinic No tenderness to the dorsal ulnar hand, now with tenderness over the ECU tendon distal to the ulna Tenderness to even very gentle palpation over the incision site Cap refill is brisk Nerve Conduction Study: Right-side only IMPRESSION: 1. 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 2. Mild right median neuropathy across carpal tunnel. Beka Frost MD 07/29/2023 Psych Appearance: grossly normal Affect: normal affect Attitude: cooperative Assessment & Plan Assessment & Plan (1) Postoperative pillar pain: Code(s): G89.18 - Other acute postprocedural pain Category: Medical (2) Hypersensitivity: Code(s): T78.40XA - Allergy, unspecified, initial encounter Category: Medical Plan 1. Hypersensitivity reaction to incision site 2. Pillar pain status post carpal tunnel release This time, patient was referred to occupational therapy for desensitization of incision site as well as range of motion and strengthening in the setting of pillar pain of the left wrist Patient was amenable to this plan With regards to the ulnar impingement that she has in the left wrist on EMG and nerve conduction study, patient will follow-up with Dr. Cagle in 4-6 weeks for discussion of further imaging and/or up further treatment options if indicated Patient was amenable to this plan Patient will follow-up in 4-[address] Cagle, sooner with any acute concerns Orders: Orders OT Evaluation and Treatment Today G89.18 - Other acute postprocedural pain, T78.40XA - Allergy, unspecified, initial encounter Coding Level of Care Code Global (19436) Diagnoses Postoperative pillar pain G89.18 Hypersensitivity T78.40XA
== END 2024-02-10 08:52 | disposition home or self-care (01) ==
PROVIDERS: PCP Nurse Practitioner Family
DX: G89.18 Other acute postprocedural pain (principal); T78.40XA Allergy, unspecified, initial encounter
CPT/HCPCS: 99024

== ENCOUNTER → 2024-02-10 08:09 | Outpatient (BNVA) | payer MEDICARE, SELFPAY | PROVIDERS: PCP Nurse Practitioner Family | DX: Z47.89 Encounter for other orthopedic aftercare (principal); G89.18 Other acute postprocedural pain; R20.8 Other disturbances of skin sensation; Z98.890 Other specified postprocedural states | CPT/HCPCS: 99212 ==

== ENCOUNTER 2024-02-19 07:56 | Outpatient (AMB) | payer MEDICARE, SELFPAY ==
[2024-02-19 08:11] VITALS: BP 138/86; PULSE 86; O2SAT 96; BMI 32.9
--- NOTE | 2024-02-19 08:11 | A.OFFPC_ITS ---
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 Required: No Accompanied by: Self / Same As Patient Allergies dexlansoprazole [From DEXILANT] Allergy (Severe, Verified 02/19/24 08:12) dizziness, change in HR risedronate sodium [From ACTONEL] Allergy (Severe, Verified 02/19/24 08:12) chest discomfort Ahrtmmm-RUD-LkH Reductase Inhibitor [JXKEVLO-DKY-AJH REDUCTASE INHIBITOR] Allergy (Severe, Verified 02/19/24 08:12) JOINT PAIN tramadol [TRAMADOL] Allergy (Severe, Verified 02/19/24 08:12) THROAT TIGHTNESS amlodipine [AMLODIPINE] Allergy (Intermediate, Verified 02/19/24 08:12) PALIPITATIONS Atrovent Allergy (Intermediate, Verified 02/19/24 08:12) Cough baclofen [BACLOFEN] Allergy (Intermediate, Verified 02/19/24 08:12) LETHARGY Beta-Blockers (Beta-Adrenergic Bloc Allergy (Intermediate, Verified 02/19/24 08:12) BRADYCARDIA budesonide [From SYMBICORT] Allergy (Intermediate, Verified 02/19/24 08:12) HOARSENESS Chocolate Allergy (Intermediate, Verified 02/19/24 08:12) GERD ezetimibe [From ZETIA] Allergy (Intermediate, Verified 02/19/24 08:12) JOINT PAIN, ELEVATED CPK fluticasone [From ADVAIR DISKUS] Allergy (Intermediate, Verified 02/19/24 08:12) HTN glucosamine Allergy (Intermediate, Verified 02/19/24 08:12) LE edema ibandronate sodium [From BONIVA] Allergy (Intermediate, Verified 02/19/24 08:12) CHEST PAIN latex [LATEX] Allergy (Intermediate, Verified 02/19/24 08:12) RASH-SENSITIVITY lisinopril [LISINOPRIL] Allergy (Intermediate, Verified 02/19/24 08:12) COUGH, really bad cough meloxicam [From MOBIC] Allergy (Intermediate, Verified 02/19/24 08:12) GI UPSET mometasone furoate [From DULERA] Allergy (Intermediate, Verified 02/19/24 08:12) COUGH niacin Allergy (Intermediate, Verified 02/19/24 08:12) Flushing Penicillins [PENICILLINS] Allergy (Intermediate, Verified 02/19/24 08:12) RASH pregabalin [From LYRICA] Allergy (Intermediate, Verified 02/19/24 08:12) GERD flare up raloxifene [From EVISTA] Allergy (Intermediate, Verified 02/19/24 08:12) GERD rofecoxib [From Vioxx] Allergy (Intermediate, Verified 02/19/24 08:12) ankle swelling salmeterol [From ADVAIR DISKUS] Allergy (Intermediate, Verified 02/19/24 08:12) HTN scallops [SCALLOPS] Allergy (Intermediate, Verified 02/19/24 08:12) NAUSEA & VOMITING sertraline [From ZOLOFT] Allergy (Intermediate, Verified 02/19/24 08:12) SKIN CRAWLING spironolactone [SPIRONOLACTONE] Allergy (Intermediate, Verified 02/19/24 08:12) RASH, ?? psoriasis strawberry [STRAWBERRY] Allergy (Intermediate, Verified 02/19/24 08:12) ITCHING tiotropium [From SPIRIVA WITH HANDIHALER] Allergy (Intermediate, Verified 02/19/24 08:12) RAW THROAT, pharyngitis verapamil [VERAPAMIL] Allergy (Intermediate, Verified 02/19/24 08:12) IRREGULAR HEARTBEAT esomeprazole [Nexium] Allergy (Mild, Verified 02/19/24 08:12) did not resolve GERD naproxen [From ALEVE] Allergy (Mild, Verified 02/19/24 08:12) FLUSH omeprazole Allergy (Mild, Verified 02/19/24 08:12) did not resolve GERD tacrolimus Allergy (Mild, Verified 02/19/24 08:12) Rash adhesive [ADHESIVE] Allergy (Unknown, Verified 02/19/24 08:12) RASH doxycycline [DOXYCYCLINE] Allergy (Unknown, Verified 02/19/24 08:12) SEVERE NOYOLA, HEARTBURN, joint pain gabapentin [From NEURONTIN] Allergy (Unknown, Verified 02/19/24 08:12) leg swelling, SOB metoclopramide [From REGLAN] Allergy (Unknown, Verified 02/19/24 08:12) LETHARGY monosodium glutamate [MSG] Allergy (Unknown, Verified 02/19/24 08:12) HEADACHE, increased HR lifitegrast [From Xiidra] Allergy (Verified 02/19/24 08:12) blurred vision, headache, eye swelling metoprolol Adverse Reaction (Severe, Verified 02/19/24 08:12) Severe bradycardia alendronate sodium [From Fosamax] Adverse Reaction (Intermediate, Verified 02/19/24 08:12) Joint Pain amitriptyline Adverse Reaction (Intermediate, Verified 02/19/24 08:12) Agitated cyclosporine [From Cequa] Adverse Reaction (Intermediate, Verified 02/19/24 08:12) Eye Swelling fluticasone furoate [From Trelegy Ellipta] Adverse Reaction (Intermediate, Verified 02/19/24 08:12) asthma exacerbation perfluorohexyloctane [From Miebo] Adverse Reaction (Intermediate, Verified 02/19/24 08:12) Eye Swelling tobramycin [From Tobrex] Adverse Reaction (Intermediate, Verified 02/19/24 08:12) Eye Swelling umeclidinium [From Trelegy Ellipta] Adverse Reaction (Intermediate, Verified 02/19/24 08:12) asthma exacerbation vilanterol [From Trelegy Ellipta] Adverse Reaction (Intermediate, Verified 02/19/24 08:12) asthma exacerbation azelastine Adverse Reaction (Mild, Verified 02/19/24 08:12) Gastrointestinal Upset hi Adverse Reaction (Intermediate, Uncoded 02/10/24 08:40) Itchy Eyes Sulindac Adverse Reaction (Intermediate, Uncoded 02/10/24 08:40) Nausea, pain Medication List - Last Reconciled 02/19/24 by HALIE Mcmahon- aspirin (Adult Aspirin Regimen) 81 mg PO DAILY beclomethasone dipropionate 80 mcg/actuation (Qvar RediHaler) 1 inh inhalation BID 30 days betamethasone dipropionate 0.05% 1 appl topical DIRECTED Bifidobacterium infantis (Align) 4 mg PO DAILY cetirizine (Zyrtec) 10 mg PO DAILY PRN cholecalciferol (vitamin D3) 25 mcg PO DAILY 30 days cyclosporine 0.05% (Restasis) 1 drp ophthalmic (eye) Q12H denosumab (Prolia) 60 mg subcut [id number] dextran 70-hypromellose (PF) 0.1-0.3 % (Artificial Tears (PF)) 1 drp ophthalmic (eye) BEDTIME docusate sodium (Colace) 100 mg PO BID evolocumab (Repatha SureClick) 140 mg subcut Q2W flunisolide 2 sprays intranasal BID PRN hydrochlorothiazide 12.5 mg PO DAILY 90 days ibuprofen (IBU) 600 mg PO Q8H PRN 90 days levalbuterol tartrate 45 mcg/actuation 2 puffs inhalation Q4H PRN lorazepam (Ativan) 0.5 mg PO DAILY PRN losartan 50 mg PO DAILY 90 days magnesium oxide 500 mg PO DAILY montelukast 10 mg PO DAILY 90 days pantoprazole 40 mg PO BID prednisolone acetate 1% 1 drp ophthalmic (eye) QID sucralfate 1 g PO BID 90 days Tobacco use date assessed: 02/19/24 Fall risk assessment: No Falls in past year Last assessed Fall Risk: 02/19/24 Dental Screening Dental Screen Date: 02/19/24 Did you have a dental visit in the last 12 months?: Yes Did you have a dental problem in the last 6 months where you did not have access to dental care?: No Was dental information given to patient?: Patient has dentist HPI 4 month HPI Details Chief Complaint The patient presents for management of hypertension. History of Present Illness The patient is a 73-year-old female presenting with essential hypertension. She has been monitoring her blood pressure at home, noting systolic values predominantly in the 140s to 150s, with occasional readings in the 130s. There is no mention of when the monitoring began, but the current concern is the consistently elevated readings. She is currently on losartan 25 mg once daily and is experiencing systolic hypertension despite this regimen. The patient denies experiencing any chest pain, increased shortness of breath, headaches, or blurred vision. There is a follow-up with cardiology scheduled for May. There is no past mention of any exacerbation or acute issues regarding her hypertension. Social History Health Maintenance Review of Systems - Cardiovascular: Denies chest pain. - Respiratory: Denies increased shortnes s of breath. - Neurological: Denies headaches or blur red vision. Physical Exam General: Cooperative, healthy appearing, comfortable, no acute distress and well developed Orientation: Patient oriented x3 Limitations: No limitations Head: Normal to inspection Ears: Hearing grossly normal bilaterally Nose: Normal external nose present Face and sinus: Normal facial exam Eyes: Appearance normal, both eyes and all related structures Neck: Normal visual inspection and Yes full ROM Respiratory: Normal respiratory effort and able to speak in complete sentences. Clear to auscultation bilaterally Cardiovascular: Regular rate and rhythm. Normal S1 and S2 GI: Normal to inspection. Soft to palpation and nontender Skin: No rashes or lesions noted Neuro: Patient oriented x3 Extremities: Trace edema to bilateral extremities Results Plan - Increase losartan from 25 mg once fer y to 50 mg once daily. - Continue home blood pressure monitorin g. - Repeat renal function tests by the end of the month to evaluate the impact of the medication adjustment. - Follow-up with cardiology as scheduled in May. Patient was informed and verbally consented to the use of an ambient scribe for clinic note documentation during this visit. Discussion Notes I discussed with the patient the plan to increase her losartan dosage to better manage her hypertension, explaining the expected benefits of better blood pressure control. We talked about the importance of continuing her home blood pressure monitoring to track any changes with the new dosage. I informed her that we would check her renal function at the end of the month to ensure the increased losartan is well tolerated without renal complications. She is advised to follow up with cardiology as planned in May and to contact me with any concerns or questions in the meantime. Patient Instructions - Increase losartan to 50 mg once daily and continue taking as prescribed. - Monitor blood pressure at home regular ly and record the readings. - Schedule and complete blood work to ch mo renal function as advised. - Keep the May cardiology appointment. - Reach out if any questions or symptoms worsen. [facility], [facility] Medical History Esophageal spasm Hx of carcinoma of bladder Bladder carcinoma History of trigger finger Cervical radiculitis Chronic sinusitis GERD (gastroesophageal reflux disease) FRANCESCA (obstructive sleep apnea) CAD (coronary artery disease) History of primary hyperparathyroidism Non-toxic multinodular goiter Osteoporosis Pulmonary nodules H/O gastroesophageal reflux (GERD) HLD (hyperlipidemia) HTN (hypertension) COPD (chronic obstructive pulmonary disease) Asthma History of aneurysm Migraine Depression PTSD (post-traumatic stress disorder) History of panic attacks Anxiety Edema History of deviated nasal septum Medial epicondylitis of left elbow Fusion of spine, cervical region Surgical History History of carpal tunnel release Hx of cystoscopy H/O cervical spine surgery Hx of hand surgery Hx of right inguinal hernia repair History of hernia repair Hx of colonoscopy History of esophagogastroduodenoscopy (EGD) S/P repair of paraesophageal hernia H/O decompression of ulnar nerve Status post ablation of incompetent vein using laser History of cardiac catheterization History of eyelid surgery History of appendectomy History of parathyroidectomy History of cholecystectomy Hx of cataract surgery Hx of shoulder surgery S/P cubital tunnel release S/P arthroscopic surgery of right knee History of lumpectomy of both breasts History of hysterectomy Hx of adenoidectomy Hx of tonsillectomy Hx of eye surgery Family History Father Liver cancer Psoriasis Cancer Mental health disorder Mother Cervical cancer Ovarian cancer Heart attack Substance use disorder Social History Household Members: Children and None Housing: House Alcohol intake: current Alcohol intake frequency: does not drink Patient Tobacco Use Status: Former Tobacco user Tobacco use type: Cigarette e-Cigarette/Vaping Use: Never Used Second Hand Smoke Exposure: No service: No Current occupational status: employed 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 1. Little interest or pleasure in doing things: not at all 2. Feeling down, depressed, or hopeless: not at all 3. Trouble falling or staying asleep, or sleeping too much: several days 4. Feeling tired or having little energy: several days 5. Poor appetite or overeating: not at all 6. Feeling bad about yourself - or that you are a failure or have let yourself or your family down: not at all 7. Trouble concentrating on things, such as reading the newspaper or watching television: not at all 8. Moving or speaking so slowly that other people could have noticed. Or the opposite - being so fidgety or restless that you have been moving around a lot more than usual: not at all 9. Thoughts that you would be better off or of hurting yourself in some way: not at all Total score: 2 Depression Screening Interpretation: Negative Depression Screening Done: Yes 15861 - PHQ-9 Billing: Yes Source: Developed by Drs. Manas Hilario, Lizabeth Wadsworth, Hernando Rodríguez and colleagues, with an educational fidelina from [employer]. Thrive Questionnaire Date Thrive assessed: 02/19/24 I am a: Patient What is your living situation today?: I have a steady place to live Within the past 12 months, did the food you bought not last and you didn't have the money to get more?: Never true Within the past 12 months, did you worry whether your food would run out before you got money to buy more?: Never true Do you have trouble paying for medicines?: I choose not to answer this question Do you have trouble getting transportation to medical appointments?: No Do you have trouble paying your heating and electricity bill?: No Do you have trouble taking care of your child, family member or friend?: No Do you have trouble with day-to-day activities such as bathing, preparing meals, shopping, managing finances, etc.?: No Are you currently unemployed and looking for a job?: No Are you interested in more education?: No Please select the resources that you would like help with: None Currently or been in a relationship where the following occur: I choose not to answer THRIVE Score: 0 AUDIT C Alcohol Use Questionnaire (AUDIT-C) 1. How often do you have a drink containing alcohol?: Never 3. How often do you have six or more drinks on one occasion?: Never Total Score: 0 Score Reviewed/Action Taken: Yes JASPAL-7 AMB Questionnaire JASPAL-7 Date JASPAL - 7 assessed: 02/19/24 Feeling nervous, anxious, or on edge: 1 = Several days Not being able to stop or control worryin = Not at all Worrying too much about different things: 0 = Not at all Trouble relaxin = Not at all Being so restless that it is hard to sit still: 0 = Not at all Becoming easily annoyed or irritable: 0 = Not at all Feeling afraid as if something awful might happen: 0 = Not at all Total JASPAL-7 score (0-4 normal; 5-9 mild; 10-14 moderate; 15-21 severe): 1 Source: Developed by Drs. Manas Hilario, Lizabeth Wadsworth, Hernando Rodríguez and colleagues, with an educational fidelina from [employer]. JASPAL-7 Assessment Billing JASPAL-7 Assessment Tool: JASPAL-7 Assessment 40623 Physical exam (Primary Care) Vital Signs: Last Vital Signs Pulse 86 02/19/24 08:11 BP 138/86 02/19/24 08:11 Pulse Ox 96 02/19/24 08:11 Oxygen Delivery Method Room Air 02/19/24 08:11 BMI result Body Mass Index 32.9 Tobacco/Smoking Status: Tobacco use Status Tobacco use date assessed 02/19/24 02/19/24 08:13 Patient Tobacco Use Status Former Tobacco user 02/19/24 08:13 Tobacco use type Cigarette 02/19/24 08:13 e-Cigarette/Vaping Use Never Used 02/19/24 08:13 PHQ-9: PHQ-9 Score PHQ-9: Total score 2 02/19/24 08:26 Depression Screening Interpretation: Negative Thrive Assessment: Date of Thrive Assessment Date Thrive assessed 02/19/24 02/19/24 08:13 Currently or been in a relationship where the following occur: I choose not to answer Coding Level of Care Code Est Pt Level 3 (57651) Diagnoses HTN (hypertension) I10 Additional Codes JASPAL-7 Assessment Billing - JASPAL-7 Assessment Tool: JASPAL-7 Assessment [id number] ([id number]) PHQ-9 - 02934 - PHQ-9 Billing: Yes ([id number]) Assessment & Plan Assessment & Plan (1) HTN (hypertension): Code(s): I10 - Essential (primary) hypertension Category: Medical Plan . Orders: Orders Comprehensive Met. Panel Today I10 - Essential (primary) hypertension Medications: Changed From losartan 25 mg PO BID 180 tabs 1RF 90 days I25.10 - Atherosclerotic heart disease of [place] coronary artery without angina pectoris To losartan 50 mg PO DAILY 90 tabs 1RF 90 days I25.10 - Atherosclerotic heart disease of [place] coronary artery without angina pectoris
== END 2024-02-19 08:58 | disposition home or self-care (01) ==
PROVIDERS: PCP Nurse Practitioner Family; Visit Provider Nurse Practitioner Family
DX: I10 Essential (primary) hypertension (principal)

== ENCOUNTER → 2024-02-19 07:56 | Outpatient (BNVA) | payer MEDICARE, SELFPAY | PROVIDERS: PCP Nurse Practitioner Family; Visit Provider Nurse Practitioner Family | DX: I10 Essential (primary) hypertension (principal); I25.10 Atherosclerotic heart disease of native coronary artery without angina pectoris | CPT/HCPCS: 96127; 99212 ==

== ENCOUNTER 2024-02-23 07:36 | Outpatient (REF) | payer MEDICARE, SELFPAY ==
[2024-02-23 08:35] LABS: Calcium 9.7 mg/dL (8.4-10.2)
[2024-02-23 08:58] LABS: Vitamin D 25-OH Total 71.9 ng/mL (>30)
== END 2024-02-23 07:37 | disposition home or self-care (01) ==
LOC: HO.LAB 07:36
PROVIDERS: Visit Provider Internal Medicine Endocrinology, Diabetes & Metabolism
DX: M81.8 Other osteoporosis without current pathological fracture (principal); M81.0 Age-related osteoporosis without current pathological fracture
CPT/HCPCS: 36415; 82040; 82306; 82310

== ENCOUNTER 2024-03-05 10:03 | Outpatient (REF) | payer MEDICARE, SELFPAY ==
[2024-03-05 16:26] LABS: Urine Cytology See Pathology rpt
== END 2024-03-05 10:04 | disposition home or self-care (01) ==
LOC: HO.LAB 10:03
PROVIDERS: PCP Nurse Practitioner Family; Visit Provider Urology
DX: C67.9 Malignant neoplasm of bladder, unspecified (principal); R89.6 Abnormal cytological findings in specimens from other organs, systems and tissues; Z98.890 Other specified postprocedural states
CPT/HCPCS: 52000; 81003; 88112

== ENCOUNTER 2024-03-05 10:03 | Outpatient (AMB) | payer MEDICARE, SELFPAY ==
--- NOTE | 2024-03-05 10:23 | MHC.OFFVIS ---
Intake Visit Reasons: cysto Intake Note: Patient is Present for Cystoscopy Urology Med:None Antibiotic Allergy: Penicillins, Doxycycline, Blood Thinner: Asprin URO- G Disposable Cystoscope lot:[id number] exp:06/18/2026 General Forecaster Required: No Accompanied by: Self / Same As Patient Allergies dexlansoprazole [From DEXILANT] Allergy (Severe, Verified 03/05/24 10:44) dizziness, change in HR risedronate sodium [From ACTONEL] Allergy (Severe, Verified 03/05/24 10:44) chest discomfort Ovqqlxa-OVP-KcR Reductase Inhibitor [[id number]-WIG-CMW REDUCTASE INHIBITOR] Allergy (Severe, Verified 03/05/24 10:44) JOINT PAIN tramadol [TRAMADOL] Allergy (Severe, Verified 03/05/24 10:44) THROAT TIGHTNESS amlodipine [AMLODIPINE] Allergy (Intermediate, Verified 03/05/24 10:44) PALIPITATIONS Atrovent Allergy (Intermediate, Verified 03/05/24 10:44) Cough baclofen [BACLOFEN] Allergy (Intermediate, Verified 03/05/24 10:44) LETHARGY Beta-Blockers (Beta-Adrenergic Bloc Allergy (Intermediate, Verified 03/05/24 10:44) BRADYCARDIA budesonide [From SYMBICORT] Allergy (Intermediate, Verified 03/05/24 10:44) HOARSENESS Chocolate Allergy (Intermediate, Verified 03/05/24 10:44) GERD ezetimibe [From ZETIA] Allergy (Intermediate, Verified 03/05/24 10:44) JOINT PAIN, ELEVATED CPK fluticasone [From ADVAIR DISKUS] Allergy (Intermediate, Verified 03/05/24 10:44) HTN glucosamine Allergy (Intermediate, Verified 03/05/24 10:44) LE edema ibandronate sodium [From BONIVA] Allergy (Intermediate, Verified 03/05/24 10:44) CHEST PAIN latex [LATEX] Allergy (Intermediate, Verified 03/05/24 10:44) RASH-SENSITIVITY lisinopril [LISINOPRIL] Allergy (Intermediate, Verified 03/05/24 10:44) COUGH, really bad cough meloxicam [From MOBIC] Allergy (Intermediate, Verified 03/05/24 10:44) GI UPSET mometasone furoate [From DULERA] Allergy (Intermediate, Verified 03/05/24 10:44) COUGH niacin Allergy (Intermediate, Verified 03/05/24 10:44) Flushing Penicillins [PENICILLINS] Allergy (Intermediate, Verified 03/05/24 10:44) RASH pregabalin [From LYRICA] Allergy (Intermediate, Verified 03/05/24 10:44) GERD flare up raloxifene [From EVISTA] Allergy (Intermediate, Verified 03/05/24 10:44) GERD rofecoxib [From Vioxx] Allergy (Intermediate, Verified 03/05/24 10:44) ankle swelling salmeterol [From ADVAIR DISKUS] Allergy (Intermediate, Verified 03/05/24 10:44) HTN scallops [SCALLOPS] Allergy (Intermediate, Verified 03/05/24 10:44) NAUSEA & VOMITING sertraline [From ZOLOFT] Allergy (Intermediate, Verified 03/05/24 10:44) SKIN CRAWLING spironolactone [SPIRONOLACTONE] Allergy (Intermediate, Verified 03/05/24 10:44) RASH, ?? psoriasis strawberry [STRAWBERRY] Allergy (Intermediate, Verified 03/05/24 10:44) ITCHING tiotropium [From SPIRIVA WITH HANDIHALER] Allergy (Intermediate, Verified 03/05/24 10:44) RAW THROAT, pharyngitis verapamil [VERAPAMIL] Allergy (Intermediate, Verified 03/05/24 10:44) IRREGULAR HEARTBEAT esomeprazole [Nexium] Allergy (Mild, Verified 03/05/24 10:44) did not resolve GERD naproxen [From ALEVE] Allergy (Mild, Verified 03/05/24 10:44) FLUSH omeprazole Allergy (Mild, Verified 03/05/24 10:44) did not resolve GERD tacrolimus Allergy (Mild, Verified 03/05/24 10:44) Rash adhesive [ADHESIVE] Allergy (Unknown, Verified 03/05/24 10:44) RASH doxycycline [DOXYCYCLINE] Allergy (Unknown, Verified 03/05/24 10:44) SEVERE NOYOLA, HEARTBURN, joint pain gabapentin [From NEURONTIN] Allergy (Unknown, Verified 03/05/24 10:44) leg swelling, SOB metoclopramide [From REGLAN] Allergy (Unknown, Verified 03/05/24 10:44) LETHARGY monosodium glutamate [MSG] Allergy (Unknown, Verified 03/05/24 10:44) HEADACHE, increased HR lifitegrast [From Xiidra] Allergy (Verified 03/05/24 10:44) blurred vision, headache, eye swelling metoprolol Adverse Reaction (Severe, Verified 03/05/24 10:44) Severe bradycardia alendronate sodium [From Fosamax] Adverse Reaction (Intermediate, Verified 03/05/24 10:44) Joint Pain amitriptyline Adverse Reaction (Intermediate, Verified 03/05/24 10:44) Agitated cyclosporine [From Cequa] Adverse Reaction (Intermediate, Verified 03/05/24 10:44) Eye Swelling fluticasone furoate [From Trelegy Ellipta] Adverse Reaction (Intermediate, Verified 03/05/24 10:44) asthma exacerbation perfluorohexyloctane [From Miebo] Adverse Reaction (Intermediate, Verified 03/05/24 10:44) Eye Swelling tobramycin [From Tobrex] Adverse Reaction (Intermediate, Verified 03/05/24 10:44) Eye Swelling umeclidinium [From Trelegy Ellipta] Adverse Reaction (Intermediate, Verified 03/05/24 10:44) asthma exacerbation vilanterol [From Trelegy Ellipta] Adverse Reaction (Intermediate, Verified 03/05/24 10:44) asthma exacerbation azelastine Adverse Reaction (Mild, Verified 03/05/24 10:44) Gastrointestinal Upset hi Adverse Reaction (Intermediate, Uncoded 03/05/24 10:44) Itchy Eyes Sulindac Adverse Reaction (Intermediate, Uncoded 03/05/24 10:44) Nausea, pain HPI Comments Details: 03/05/24--Adali is here for surveillance office cystoscopy. Cipro 500mg x 1 PO pre-procedure. Cystoscopy findings: WNL, no suspicious bladder lesions visualized. Cont surveillance. cysto in 4 months. 12/05/23--Adali is a 73-year-old here for 3 month what small or surveillance office cystoscopy. Cystoscopy findings: No recurrent bladder lesions mild to moderate bladder trabeculations. 09/10/23--Adali is status post cystoscopy TURBT. I have reviewed pathology, low-grade noninvasive bladder cancer. I have discussed treatment management for cystoscopy surveillance. Based on small size and that the tumor is low-grade, bladder installations therapy is not indicated at this time. 07/25/2023--here for cystoscopy. CT urogram--within normal limits. Cystoscopy findings: Mild to moderate bladder wall thickening. 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 Discussed cystoscopy TURBT. Consent obtained. 05/19/23--Adali is a 73-year-old female who is here for evaluation for microscopic hematuria. The patient has a history of nicotine use quit in 1979. The patient has lower urinary tract symptoms of urinary frequency. 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 She states she is no longer routinely following with [employer] but told by [employer] about 3 years ago that she had vaginal prolapse. She denies dysuria. Urinalysis trace blood, 0 leukocytes. I have discussed microscopic hematuria may be due to but not limited to kidney stones, BPH, cystitis, urinary tract malignancy. I have discussed work up to include evaluation of the urinary tract which may include imaging, further urine testing, and cystoscopy Plan--CT urogram, urine for cytology, follow-up office cystoscopy [facility] Medical History Esophageal spasm Hx of carcinoma of bladder Bladder carcinoma History of trigger finger Cervical radiculitis Chronic sinusitis GERD (gastroesophageal reflux disease) FRANCESCA (obstructive sleep apnea) CAD (coronary artery disease) History of primary hyperparathyroidism Non-toxic multinodular goiter Osteoporosis Pulmonary nodules H/O gastroesophageal reflux (GERD) HLD (hyperlipidemia) HTN (hypertension) COPD (chronic obstructive pulmonary disease) Asthma History of aneurysm Migraine Depression PTSD (post-traumatic stress disorder) History of panic attacks Anxiety Edema History of deviated nasal septum Medial epicondylitis of left elbow Fusion of spine, cervical region Surgical History History of carpal tunnel release Hx of cystoscopy H/O cervical spine surgery Hx of hand surgery Hx of right inguinal hernia repair History of hernia repair Hx of colonoscopy History of esophagogastroduodenoscopy (EGD) S/P repair of paraesophageal hernia H/O decompression of ulnar nerve Status post ablation of incompetent vein using laser History of cardiac catheterization History of eyelid surgery History of appendectomy History of parathyroidectomy History of cholecystectomy Hx of cataract surgery Hx of shoulder surgery S/P cubital tunnel release S/P arthroscopic surgery of right knee History of lumpectomy of both breasts History of hysterectomy Hx of adenoidectomy Hx of tonsillectomy Hx of eye surgery Family History Father Liver cancer Psoriasis Cancer Mental health disorder Mother Cervical cancer Ovarian cancer Heart attack Substance use disorder Social History Household Members: Children and None Housing: House Alcohol intake: current Alcohol intake frequency: does not drink Patient Tobacco Use Status: Former Tobacco user Tobacco use type: Cigarette e-Cigarette/Vaping Use: Never Used Second Hand Smoke Exposure: No service: No Current occupational status: employed 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 Information consent for procedure given to the patient. Discussed technical aspects, risks, benefits and alternatives in full. Addressed all of the patient's questions and concerns regarding the procedure. The patient demonstrated knowledge and understanding. They wish to proceed with this procedure. Preparation The patient was prepped in the usual manner. A radiator specialist was present and in the room. Genitalia was prepped with betadine solution in a sterile manner. Lidocaine Jelly 2% was placed into the urethra and 16Fr flexible Olympus cystoscope was inserted into the meatus after adequate lubrication. Procedure Time out per protocol performed. Bladder Inspection Bladder Inspection: The bladder was inspected in its entirety with utilization retroflexion displaying: Tumor(s): no suspicious bladder lesions visualized Trabeculation: NA Mucosal Erthema: NA Orifices: normal shape and position Urethra: normal Cystoscopy findings: WNL, no suspicious bladder lesions visualized [id number] DISPOSABLE SCOPE URO-G FLEXIBLE SCOPE Procedure code (CPT) selection complete Office Meds lidocaine HCl 2 % mucosal jelly in applicator Performing Provider: Chloe Dodge MD [place] [facility] [place] [facility] Administered by: Vidhi Regan RN on 03/05/24 11:20 Dose Route Admin Location Dispensed Lot Number Expiration Date [facility] [employer] 10 mL intra-urethral 10 mL Results AMB Urinalysis, Automated UA Leukoctes 15 Jason/uL Last Edit by CURRY Hart on 03/05/24 11:12 UA Nitrite Negative Last Edit by Lynda Mendes, A on 03/05/24 11:12 UA Urobilinogen 0.2 mg/dL Last Edit by Lynda Mendes, A on 03/05/24 11:12 UA Protein 0 mg/dL Last Edit by Lynda Mendes, A on 03/05/24 11:12 UA pH 6.0 Last Edit by Lynda Mendes, A on 03/05/24 11:12 UA Blood 25 Delfino/uL Last Edit by Lynda Mendes, RMA on 03/05/24 11:12 UA Specific [place] 1.010 Last Edit by Lynda Mendes, A on 03/05/24 11:12 UA Ketone Negative Last Edit by Lynda Mendes, A on 03/05/24 11:12 UA Bilirubin 0 mg/dL Last Edit by Lynda Mendes, A on 03/05/24 11:12 UA Glucose 0 mg/dL Last Edit by Lynda Mendes, A on 03/05/24 11:12 Results Reviewed Results Reviewed: Laboratory Last Values Urine pH (Auto) 6.0 03/05/24 11:03 Specific [place] (Auto) 1.010 03/05/24 11:03 Urine Protein (Auto) 0 mg/dL 03/05/24 11:03 Glucose (UA)(Auto) 0 mg/dL 03/05/24 11:03 Urine Ketones (Auto) Negative 03/05/24 11:03 Urine Blood (Auto) 25 Delfino/uL 03/05/24 11:03 Urine Nitrite (Auto) Negative 03/05/24 11:03 Urine Bilirubin (Auto) 0 mg/dL 03/05/24 11:03 Urine Urobilinogen (Auto) 0.2 mg/dL 03/05/24 11:03 Leukocyte Esterase (Auto) 15 Jason/uL 03/05/24 11:03 Assessment & Plan Assessment & Plan (1) History of nicotine use: Code(s): Z87.891 - Personal history of nicotine dependence Category: Medical (2) Urinary frequency: Code(s): R35.0 - Frequency of micturition Category: Medical (3) Bladder wall thickening: Code(s): N32.89 - Other specified disorders of bladder Category: Medical (4) Bladder cancer: Code(s): C67.9 - Malignant neoplasm of bladder, unspecified Category: Medical Plan Surveillance office cystoscopy in 4 months Orders: Orders AMB Urinalysis Automated Today Z13.9 - Encounter for screening, unspecified AMB Cystoscopy Today C67.9 - Malignant neoplasm of bladder, unspecified Urine Cytology Today C67.9 - Malignant neoplasm of bladder, unspecified Patient Instructions: The patient had an opportunity to ask questions regarding treatment plan. The patient expressed understanding and agreement with the above treatment plan. The patient is aware they should contact our office by phone for worsening of their current condition or the appearance of new symptoms. Compliance is encouraged with any medications and followup testing that is ordered. It is a privilege to be allowed the opportunity to participate in the urologic care of your patient. If you have any questions or concerns regarding treatment for the above conditions please do not hesitate to contact me. The office telephone contact is [phone]. This note is constructed in part using voice recognition software. While every effort has been made to ensure accuracy color finisher errors may have been included. Yours sincerely, Chloe Dodge MD Coding Level of Care Code Procedure Only Diagnoses History of nicotine use Z87.891 Urinary frequency R35.0 Bladder wall thickening N32.89 Bladder cancer C67.9 CPT Codes Cystoscopy - CPT: [id number] ([id number])
--- OUTSIDE RECORDS SUMMARY | 2024-03-05 11:10 | XMS_ITS | Patient Health Record ---
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 Name Role Phone BEBE VELASCO M.D Primary Care Provider LIZANDRO Bean Unavailable [phone] Allergies Allergen (clinical drug ingredient) Drug/Non Drug Allergy documented on EMR Reaction Allergy Type Onset Date Status 12 Hour Nasal [place] Unknown Drug Allergy Active risedronate Actonel Unknown Drug Allergy Activ e Aleve Unknown Drug Allergy Active amlodipine amLODIPine Besylate Unknown Drug Allergy Active ibandronate Boniva Unknown Drug Allergy Activ e rosuvastatin Crestor Unknown Drug Allergy Acti ve raloxifene Evista Unknown Drug Allergy Active pregabalin Lyrica Unknown Drug Allergy Active gabapentin Neurontin Unknown Drug Allergy Active metoclopramide Reglan Unknown Drug Allergy Ac tive tiotropium Spiriva HandiHaler Unknown Drug Allergy Active budesonide / formoterol Symbicort Unknown Drug Allergy Active ezetimibe Zetia Unknown Drug Allergy Active sertraline Zoloft Unknown Drug Allergy Active dexlansoprazole Dexilant Unknown Drug Allergy A ctive formoterol / mometasone Dulera Unknown Drug Allergy Active mometasone Asmanex HFA Unknown Drug Allergy Acti ve lifitegrast Xiidra Unknown Drug Allergy Activ e Adhesive Unknown Allergy Active amitriptyline Amitriptyline Unknown Drug Allergy Active baclofen Baclofen Unknown Drug Allergy Active Substance with beta adrenergic receptor antagonist mechanism of action (substance) Beta Adrenergic Blockers Unknown Drug Allergy Active doxycycline Doxycycline Unknown Drug Allergy Act hai Latex Latex Unknown Allergy Active lisinopril Lisinopril Unknown Drug Allergy Activ e metoprolol Metoprolol Unknown Drug Allergy Activ e Penicillin Unknown Drug Allergy Active simvastatin Simvastatin Unknown Drug Allergy Act hai spironolactone Spironolactone Unknown Drug Allergy Active tramadol Tramadol Unknown Drug Allergy Active verapamil Verapamil Unknown Drug Allergy Active Reason For Referral No Information Medications Medication SIG (Take, Route, Frequency, Duration) Notes Start Date End Date Status Stool Softener 100 MG 1 capsule as neede d Orally Once a day Active Repatha SureClick 140 MG/ML as directed Subcutaneous Active LORazepam 0.5 MG 1 tablet at bedtime as needed Orally Once a day Active Pantoprazole Sodium 40 MG 1 tablet Orall y Once a day for 30 day(s) Active Calcium Citrate 500 MG as directed Orally Active Align - as directed Orally A ctive Ibuprofen 600 MG 1 tablet with food o r milk as needed Orally Three times a day Active Baby Aspirin 81 MG 1 tablet Orally Once a day for 30 day(s) Active Flonase Sensimist 27.5 MCG/SPRAY 1 spray in each nostril Nasally Once a day for 30 day(s) Active Flovent HFA 110 MCG/ACT 2 puffs Inhalati on Twice a day Active Yuvafem 10 MCG 1 tablet Vaginal Thr ee times a Week for 90 days 05/04/2021 Active Trelegy Ellipta 100-62.5-25 MCG/INH 1 puff Inhalation Once a day Active Montelukast Sodium 10 MG 1 tablet Orally Once a day for 30 day(s) Active Viactiv Calcium Plus D 650-12.5-40 MG-MCG as directed Orally Act hai ZyrTEC Allergy 10 MG 1 tablet Orally Onc e a day for 30 day(s) Active Gas Relief 80 MG 1 tablet after meals and at bedtime as needed Orally Four times a day Active Vitamin D 1000 UNIT 1 tablet Orally Once a day for 30 day(s) Active hydroCHLOROthiazide 12.5 MG 1 tablet in the morning Orally Once a day for 30 day(s) Active Losartan Potassium 25 MG 1 tablet Orally Once a day for 30 day(s) Active Restasis 0.05 % 1 drop into affected eye Ophthalmic Twice a day Active Artificial Tear - as directed Ophthalmic Active Levalbuterol Tartrate 45 MCG/ACT 1 puff as needed Inhalation every 4 hrs Active Social History Tobacco Use: Social History Observation Description Date Details (start date - stop date) Former Smoker NA - NA Tobacco Use/Smoking Question Answer Notes Are you a former smoker How long has it been since you last smoked? > 10 years Alcohol Screen (Audit-C) Question Answer Notes Did you have a drink containing alcohol in the p ast year? No Points 0 Interpretation Negative Problems Problem Type SNOMED Code ICD Code Onset Dates Problem Status W/U Status Risk Notes Problem Postmenopausal atrophic vaginitis (85542506) Postmenopausal atrophic vaginitis (N95.2) Active confirmed Problem Age-related osteoporosis (782344647) Age-related osteoporosis without current pathological fracture (M81.0) Active confirmed Problem Essential hypertension (72964982) Essential (primary) hypertension (I10) Active confirmed Problem Hyperlipidemia (10859363) Hyperlipidemia, unspecified (E78.5) Active confirmed Problem Uncomplicated asthma (disorder) (752388896) Unspecified asthma, uncomplicated (J45.909) Active confirmed Problem Gastro-esophageal reflux disease without esophagitis (381744956) Gastro-esophageal reflux disease without esophagitis (K21.9) Active confirmed Plan Of Treatment No Information Insurance Providers Payer Name Payer Address Payer Phone Subscriber Number Group Number Insured Name Patient Relationship to Insured Coverage Start Date Coverage End Date MEDICARE [address] [facility], [place] [id number] [phone] [id number] JORGITO MANCILLA Self - patient is the insured Medical (General) History Medical History History ICD Code Essential (primary) hypertension I10 Age-related osteoporosis without current pathological fracture M81.0 Unspecified asthma, uncomplicated J45.90 9 Hyperlipidemia, unspecified E78.5 Gastro-esophageal reflux disease without esophagitis K21.9 Surgical History Surgery Date(Month/Year) Eye Surgery - Crossed Eye T & A 1957 Left Arm Growth 1957 TAB/BSO, Appendectomy 1978 Lumpectomy - Right Breast 1993 Lumpectomy - Left Breast 2000 Arthroscopic Right Knee 10/21/07 Cubital Tunnel Release - Left 10/21/07 Neck Bx Lump 2007 Laminectomy C6-C7 07/18/09 Orthoscopic - Shoulder 05/24/10 Cataract Left Eye, Cataract Right Eye 11/21, 03/26/11 Eyelid 02/28/10 Cardiac Catheterization 11/06/11 Cholecystectomy, Removal Of Lipoma 3 Neck Fusion C5-C7 12/27/12 Reconstruct Flank area from Lipoma Parathyroidectomy 04/25/14 Medial Epicondyle Debridement Right Elbo w 05/27/14 Venous Ablation - Right Leg 2/3/16 Venous Abation - Left Leg 05/17/15 Venous Ablation - Right Leg Back 12/13/15 Deviated Septum - Turbinates 03/27/16 Colonoscopy 12/05/16 Cauterization Right Nostril Nose Bleed 1 03/19/16 Decompression L4-L5 02/21/17 Ptosis Repair/Blepharoplasty - Bilateral 08/05/17 Endoscopy 08/12/17 Ventral Hernia Repair 11/14/17 Esophogeal Hiatal Hernia 09/22/19 Right Inguinal Hernia Repair 01/24/20 Right Varicose Vein Microphlebectomy Hospitalization History Reason Date(Month/Year) Chilbirth See Surgical Hx
== END 2024-03-05 11:33 | disposition home or self-care (01) ==
PROVIDERS: PCP Nurse Practitioner Family; Visit Provider Urology
DX: R35.0 Frequency of micturition (principal); N32.89 Other specified disorders of bladder; C67.9 Malignant neoplasm of bladder, unspecified; Z13.9 Encounter for screening, unspecified; Z87.891 Personal history of nicotine dependence
CPT/HCPCS: 52000

== ENCOUNTER 2024-03-10 07:42 | Outpatient (RCR) | payer MEDICARE, SELFPAY ==
--- NOTE | 2024-02-19 15:15 | MHC.OT.EP ---
[address] [phone] Occupational Therapy Plan of Care Patient Name: Adali Holman Date of Evaluation: 02/19/24 Diagnosis: Post-op CTR Pain Location: 6/10 resting pain -> 10/10 w/ forceful use Tender to palpate over medial elbow Tender and hypersensitive to barely light touch Pain Score: 6 Pain Scale Used: Numeric (0 - 10) Aggravating Factors: Gripping, forceful use, sleeping Alleviating Factors: Ibuprophen, lidocaine cream, ice pack (was using heat occasionally) Assessment: 73 yo female presents about two months post-op right CTR. She has returned back to ortho for follow-up with right hand pain and intermittent tingling. She is now referred to OT to address post-op CTR pillar pain. On assessment today, she has moderate pain through palm, ulnar wrist and some tenderness into forearm. She has high sensitivity over carpal tunnel surgical area and into hypothenar issue, as well as swelling in that same area. She has evidence of ulnar neuropathy w/ Wartenburg's Sign and small finger clawing with direct pressure/palpation over hypothenar eminence. She has good range in digits and wrist, some arthritic changes but no specific c/o pain due to OA at this time. We will continue hand therapy to address post op pain and hypersensitivity with education also on general nerve function and postural balance to promote decreased pain and normalize UE function. Frequency and Duration: The patient will be seen 2x/wk for 6 weeks Short Term Goals: Pt to initiate self desensitization program w/ 5 min soft texture 3x/day Ind w/ self STM to forearm w/ manual STM or roller Pt to have good follow through w/ UE AROM/postural exercises Pt to demo good follow through w/ conservative edema management (k-tape, glove, massage) Mcc Goals: Good follow through strengthening program Pt to tolerate firm touch to right hand/palm in prep of daily use of hand Pt to demo opening jars and containers w/ tools as needed Right gross grasp >20lb Quickdash score <50 pts Treatment Plan: Therapeutic Exercise Therapeutic Activity Home Exercise Program Splinting Neuro Re-ed Patient Education Desensitization/Sensory Re-ed Edema Control ADL Training Iontophoresis Paraffin Fluidotherapy MHP Cold Packs Joint Mobilization Soft Tissue Mobilization Kinesiotaping Possible ionto w/ dex Electronically Signed By: Abigail Cage OTR/L CHT Please Sign and return to therapist. Thank you once again for your referral.
--- NOTE | 2024-04-09 10:19 | MHC.OT.DC ---
[address] [phone] F: [phone] Occupational Therapy Discharge Note Patient Name: Adali Holman Provider: Quinton Yadav PA-C Diagnosis: Post-op CTR Date of Surgery: 12/29/23 Date of Evaluation: 02/19/24 Date of Discharge: 04/09/24 Treatments to Date: 5 Cancellations to Date: 4 Discharge Status: Improved Function Patient Elected to Stop Discharge Summary: Adali has been attending OT for post-op right CTR. She had been doing well and following home program, improving pain and had initiated strengthening program. She had cancelled last few therapy visits and reporting that she may have issues due to new insurance. I anticipate that she has been Ind w/ self management for pain and edema relief w/ range, scar massage and progression of strengthening and functional use. We have not heard from patient in over a month and will be discharging OT services at this time. Electronically Signed By: Liana Meehan OTR/L Reviewed/agree with student documentation: Therapist: Please Sign and return to therapist, thank you for your referral.
== END 2024-04-09 10:19 | disposition home or self-care (01) ==
LOC: HO.OT 07:42
PROVIDERS: PCP Nurse Practitioner Family
DX: G89.18 Other acute postprocedural pain (principal); T78.40XD Allergy, unspecified, subsequent encounter
CPT/HCPCS: 97033; 97110; 97140; 97166

== ENCOUNTER 2024-03-12 06:46 | Outpatient (REF) | payer MEDICARE, SELFPAY ==
[2024-03-12 11:39] LABS: Alanine Aminotransferase 11 U/L (0-31); Albumin Level 3.8 g/dL (3.5-5.0); Alkaline Phosphatase 90 U/L (39-117); Anion Gap 11 (12-20); Aspartate Amino Transferase 20 U/L (5-31); Bilirubin Total 0.5 mg/dL (0.0-1.0); Blood Urea Nitrogen 15 mg/dL (9-16); Calcium 9.2 mg/dL (8.4-10.2); Carbon Dioxide 27 mmol/L (22-29); Chloride 105 mmol/L (96-108); Estimated Glomerular Filt Rate 60; Glucose Random 105 mg/dL (60-115); Potassium 3.7 mmol/L (3.3-5.1); Sodium 139 mmol/L (135-145); Total Protein 6.9 g/dL (6.5-8.0)
[2024-03-12 12:25] LABS: Creatinine, mg/dL 60.15
[2024-03-12 13:54] LABS: Creatinine, 24Hr Urine 0.6 G/Day (1.0-2.0); Total Volume 24 Hour Urine 1050 mL
[2024-03-14 22:38] LABS: Calcium, 24 Hr Urine 11 mg/24 h; Calcium/Creatinine Ratio 17 mg/g creat (30-275); Creatinine 24Hr Urine 0.62 g/24 h (0.50-2.15)
== END 2024-03-12 06:47 | disposition home or self-care (01) ==
LOC: HO.HMGCLDS 06:46
PROVIDERS: PCP Nurse Practitioner Family; Referring Provider Internal Medicine Endocrinology, Diabetes & Metabolism; Visit Provider Nurse Practitioner Family
DX: M81.0 Age-related osteoporosis without current pathological fracture (principal); I10 Essential (primary) hypertension
CPT/HCPCS: 36415; 80053; 82340; 82570

== ENCOUNTER 2024-03-16 08:34 | Outpatient (AMB) | payer OTHER, SELFPAY ==
[2024-03-16 08:42] VITALS: BMI 32.9
--- NOTE | 2024-03-16 08:42 | MHC.OFFVIS ---
Vital Signs 03/16/24 08:42 Height 4 ft 11 in Weight 163 lb BMI 32.9 Intake Visit Reasons: newprob-lulnar nerve impingement at right wrist Intake Note: Adali 73 yr old 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 female presents today for a follow up visit for her right wrist ulnar nerve impingement S/P right hand CTR DOS: 12/25/23.States she is now having numbness on her pinky that comes and goes. States she has tried O.T with temporarily relief. She would like to discuss cubital tunnel. EMG done 07/29/23. Allergies dexlansoprazole [From DEXILANT] Allergy (Severe, Verified 03/16/24 08:48) dizziness, change in HR risedronate sodium [From ACTONEL] Allergy (Severe, Verified 03/16/24 08:48) chest discomfort Poajjhn-UMO-WsK Reductase Inhibitor [[id number] REDUCTASE INHIBITOR] Allergy (Severe, Verified 03/16/24 08:48) JOINT PAIN tramadol [TRAMADOL] Allergy (Severe, Verified 03/16/24 08:48) THROAT TIGHTNESS amlodipine [AMLODIPINE] Allergy (Intermediate, Verified 03/16/24 08:48) PALIPITATIONS Atrovent Allergy (Intermediate, Verified 03/16/24 08:48) Cough baclofen [BACLOFEN] Allergy (Intermediate, Verified 03/16/24 08:48) LETHARGY Beta-Blockers (Beta-Adrenergic Bloc Allergy (Intermediate, Verified 03/16/24 08:48) BRADYCARDIA budesonide [From SYMBICORT] Allergy (Intermediate, Verified 03/16/24 08:48) HOARSENESS Chocolate Allergy (Intermediate, Verified 03/16/24 08:48) GERD ezetimibe [From ZETIA] Allergy (Intermediate, Verified 03/16/24 08:48) JOINT PAIN, ELEVATED CPK fluticasone [From ADVAIR DISKUS] Allergy (Intermediate, Verified 03/16/24 08:48) HTN glucosamine Allergy (Intermediate, Verified 03/16/24 08:48) LE edema ibandronate sodium [From BONIVA] Allergy (Intermediate, Verified 03/16/24 08:48) CHEST PAIN latex [LATEX] Allergy (Intermediate, Verified 03/16/24 08:48) RASH-SENSITIVITY lisinopril [LISINOPRIL] Allergy (Intermediate, Verified 03/16/24 08:48) COUGH, really bad cough meloxicam [From MOBIC] Allergy (Intermediate, Verified 03/16/24 08:48) GI UPSET mometasone furoate [From DULERA] Allergy (Intermediate, Verified 03/16/24 08:48) COUGH niacin Allergy (Intermediate, Verified 03/16/24 08:48) Flushing Penicillins [PENICILLINS] Allergy (Intermediate, Verified 03/16/24 08:48) RASH pregabalin [From LYRICA] Allergy (Intermediate, Verified 03/16/24 08:48) GERD flare up raloxifene [From EVISTA] Allergy (Intermediate, Verified 03/16/24 08:48) GERD rofecoxib [From Vioxx] Allergy (Intermediate, Verified 03/16/24 08:48) ankle swelling salmeterol [From ADVAIR DISKUS] Allergy (Intermediate, Verified 03/16/24 08:48) HTN scallops [SCALLOPS] Allergy (Intermediate, Verified 03/16/24 08:48) NAUSEA & VOMITING sertraline [From ZOLOFT] Allergy (Intermediate, Verified 03/16/24 08:48) SKIN CRAWLING spironolactone [SPIRONOLACTONE] Allergy (Intermediate, Verified 03/16/24 08:48) RASH, ?? psoriasis strawberry [STRAWBERRY] Allergy (Intermediate, Verified 03/16/24 08:48) ITCHING tiotropium [From SPIRIVA WITH HANDIHALER] Allergy (Intermediate, Verified 03/16/24 08:48) RAW THROAT, pharyngitis verapamil [VERAPAMIL] Allergy (Intermediate, Verified 03/16/24 08:48) IRREGULAR HEARTBEAT esomeprazole [Nexium] Allergy (Mild, Verified 03/16/24 08:48) did not resolve GERD naproxen [From ALEVE] Allergy (Mild, Verified 03/16/24 08:48) FLUSH omeprazole Allergy (Mild, Verified 03/16/24 08:48) did not resolve GERD tacrolimus Allergy (Mild, Verified 03/16/24 08:48) Rash adhesive [ADHESIVE] Allergy (Unknown, Verified 03/16/24 08:48) RASH doxycycline [DOXYCYCLINE] Allergy (Unknown, Verified 03/16/24 08:48) SEVERE NOYOLA, HEARTBURN, joint pain gabapentin [From NEURONTIN] Allergy (Unknown, Verified 03/16/24 08:48) leg swelling, SOB metoclopramide [From REGLAN] Allergy (Unknown, Verified 03/16/24 08:48) LETHARGY monosodium glutamate [MSG] Allergy (Unknown, Verified 03/16/24 08:48) HEADACHE, increased HR lifitegrast [From Xiidra] Allergy (Verified 03/16/24 08:48) blurred vision, headache, eye swelling metoprolol Adverse Reaction (Severe, Verified 03/16/24 08:48) Severe bradycardia alendronate sodium [From Fosamax] Adverse Reaction (Intermediate, Verified 03/16/24 08:48) Joint Pain amitriptyline Adverse Reaction (Intermediate, Verified 03/16/24 08:48) Agitated cyclosporine [From Cequa] Adverse Reaction (Intermediate, Verified 03/16/24 08:48) Eye Swelling fluticasone furoate [From Trelegy Ellipta] Adverse Reaction (Intermediate, Verified 03/16/24 08:48) asthma exacerbation perfluorohexyloctane [From Miebo] Adverse Reaction (Intermediate, Verified 03/16/24 08:48) Eye Swelling tobramycin [From Tobrex] Adverse Reaction (Intermediate, Verified 03/16/24 08:48) Eye Swelling umeclidinium [From Trelegy Ellipta] Adverse Reaction (Intermediate, Verified 03/16/24 08:48) asthma exacerbation vilanterol [From Trelegy Ellipta] Adverse Reaction (Intermediate, Verified 03/16/24 08:48) asthma exacerbation azelastine Adverse Reaction (Mild, Verified 03/16/24 08:48) Gastrointestinal Upset hi Adverse Reaction (Intermediate, Uncoded 03/16/24 08:48) Itchy Eyes Sulindac Adverse Reaction (Intermediate, Uncoded 03/16/24 08:48) Nausea, pain HPI HPI newprob-lulnar nerve impingement at right wrist : Details: Adali is a 73 year old 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 woman who is following up regarding the pillar pain and hypersensitivity that she had following her right carpal tunnel release. She has been participating in hand therapy and feels that it has been helpful. She does note that certain exercises like using the roller, seemed to aggravate her basal joint arthritis. She is S/P right carpal tunnel release, DOS: 12/29/23. She says she still gets numbness and tingling in the right small and ring fingers that is intermittent but daily. She was having trouble with adducting her small finger but finds this has improved. She does find that her small finger will tend to flex on its own, particularly if she pushes on the base of the hypothenar eminence. She does get an aching sensation of the ulnar side of her forearm She is unsure if she gets numbness and tingling on the dorsal ulnar aspect of her hand. She complains of GI upset from her Ibuprofen use for pain relief. Hx of C4-C5 cervical fusion, DOS: 07/02/22 [facility] Medical History Esophageal spasm Hx of carcinoma of bladder Bladder carcinoma History of trigger finger Cervical radiculitis Chronic sinusitis GERD (gastroesophageal reflux disease) FRANCESCA (obstructive sleep apnea) CAD (coronary artery disease) History of primary hyperparathyroidism Non-toxic multinodular goiter Osteoporosis Pulmonary nodules H/O gastroesophageal reflux (GERD) HLD (hyperlipidemia) HTN (hypertension) COPD (chronic obstructive pulmonary disease) Asthma History of aneurysm Migraine Depression PTSD (post-traumatic stress disorder) History of panic attacks Anxiety Edema History of deviated nasal septum Medial epicondylitis of left elbow Fusion of spine, cervical region Surgical History History of carpal tunnel release Hx of cystoscopy H/O cervical spine surgery Hx of hand surgery Hx of right inguinal hernia repair History of hernia repair Hx of colonoscopy History of esophagogastroduodenoscopy (EGD) S/P repair of paraesophageal hernia H/O decompression of ulnar nerve Status post ablation of incompetent vein using laser History of cardiac catheterization History of eyelid surgery History of appendectomy History of parathyroidectomy History of cholecystectomy Hx of cataract surgery Hx of shoulder surgery S/P cubital tunnel release S/P arthroscopic surgery of right knee History of lumpectomy of both breasts History of hysterectomy Hx of adenoidectomy Hx of tonsillectomy Hx of eye surgery Family History Father Liver cancer Psoriasis Cancer Mental health disorder Mother Cervical cancer Ovarian cancer Heart attack Substance use disorder Social History (Reviewed 03/16/24 @ 08:49 by JASMYNE Plascencia Household Members: Children and None Housing: House Alcohol intake: current Alcohol intake frequency: does not drink Patient Tobacco Use Status: Former Tobacco user Tobacco use type: Cigarette e-Cigarette/Vaping Use: Never Used Second Hand Smoke Exposure: No service: No Current occupational status: employed 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 Normal sensation in the ulnar nerve distribution today in clinic No numbness to the dorsal ulnar aspect of her hand No thenar or intrinsic wasting Good APB muscle belly firing and good finger cross + Tinel sign over the ulnar nerve at the wrist Vascular: Cap refill brisk ROM: She can make a nice fist and extend all her digits She had a Wartenberg sign, but now can actively bring the small finger into adduction against the ring finger No subluxation of extensor tendons with ROM Tender over the ECU tendon, just distal to the ulna Nerve Conduction Study: Right-side only IMPRESSION: 1. [id number] right ulnar neuropathy in wrist. 2. Mild right median neuropathy across carpal tunnel. Beka Frost MD 07/29/2023 Psych Appearance: grossly normal Affect: normal affect Attitude: cooperative Assessment & Plan Assessment & Plan (1) Carpal tunnel syndrome of right wrist: Code(s): G56.01 - Carpal tunnel syndrome, right upper limb Category: Medical (2) Neuropathy of right ulnar nerve at wrist: Code(s): G56.21 - Lesion of ulnar nerve, right upper limb Category: Medical Plan Assessment & Plan: 1. Right carpal tunnel syndrome, S/P release DOS: 12/29/23 Pre-operative symptoms intermittent, but daily, worse at night Now with normal sensation, and significant improvement of overall hand pain She is doing well overall She has completed a course of OT hand therapy working on desensitization & post-op pillar pain, which has been improving. She should continue to work on her exercises at home 2. Right ulnar nerve compression, Compression at the wrist per last years nerve conduction study Intermittent, but daily, numbness in the ring & small fingers, some discomfort radiating up the ulnar side of the forearm I educated her about this condition I discussed treatment options I do think that she is likely going to need some intervention for this issue. The fletcher is trying to decide between a cubital tunnel release versus ulnar nerve release at the wrist/Guyon's canal. She will be mindful over where she has numbness, and if this includes the dorsal aspect of her hand. I am considering a repeat NCS vs a possible MRI to take a look at any source of ulnar nerve compression at the wrist, cyst versus aneurysm, etc... She will follow up in 2 months to see how she is doing. This will also allow her a little more time to fully resolve her pillar pain and sensitivity. 3. Right ulnar-sided hand pain Most likely ECU tendinitis Significantly improved following her carpal tunnel surgery Her symptoms have been worsening in the last few months I recommend she continue with at-home exercises and activity modification Scribed for Marisol Cagle MD by Keyon Manzo, medical facilities section director, on 03/16/24 at 9:10 AM, EST. Coding Level of Care Code Est Pt Level 4 (08082) Diagnoses Carpal tunnel syndrome of right wrist G56.01 Neuropathy of right ulnar nerve at wrist G56.21
--- OUTSIDE RECORDS SUMMARY | 2024-03-16 08:49 | XMS_ITS | Data Portability ---
Author Organization [place] - [facility], Allergy Address [address] [place] [address] Care Team Providers Care Electroneurodiagnostic Technologist Name Role Phone BEBE VELASCO Primary Care Provider [phone] Assessment Encounter Date Assessment Date Assessment LastModified by Organization Details LastModified Time 03/12/2024 03/12/2024 Audiometric testing compared with previous is essentially stable. In the past she has not tolerated amplification and at this time she will simply ask her son to speak louder and stop mumbling. She describes approximately 4 episodes of sinus infection per year. Nasal endoscopy today was benign with no evidence of purulence or polyps. No active infection despite her recent treatment with Zithromax that completed on Friday. She has been through allergy testing in the past with sensitivity to birch and cats, she no longer has cats. Nasal irrigations have been helpful to manage her symptoms [email or web address] Not available 03/12/2024 16:35:25 Plan of Treatment Reminders Order Date Submit Date Provider Last Modified By Organization Details Last Modified Time Details Appointments None record ed. Lab None record ed. Referral None record ed. Procedures None record ed. Surgeries None record ed. Imaging None record ed. Medication Orders None record ed. Patient TargetsNo targets recorded. Patient InstructionsNo instructions recorded. Reason for Referral None Reported. Results Created Date Observation Date Name Description Value Unit Range Abnormal Flag Note LastModifiedBy Organization Detail LastModifiedTime 03/15/19 25 audio gram No observ ation record ed. BARCODE Not Available 2024 13:28:12 Result Notes None recorded. Problems Name Problem SNOMED Code Status Onset Date Resolution Date Notes Provider Name and Address Organization Details Recorded Time Bilateral tinnitus 50110384998 02 Active 2018 Tinnitus, bilateral ; Note: Date Diagnosed : 09/16/2018 9:36 AM (H93.13) Not Available [facility] 4 03:05:03 Sensorine ural hearing loss of bilateral ears 020913517 Active 2018 Sensorine ural hearing loss, bilateral ; Note: Date Diagnosed : 09/16/2018 9:36 AM (H90.3) Not Available [facility] 4 03:05:03 Migraine with aura 2216625 Active 2018 Migraine with aura, not intractab le, without status migrainos us; Note: Date Diagnosed : 09/16/2018 9:50 AM (G43.109) Not Available [facility] 4 03:05:05 Dizziness and giddiness 497553055 Active 2018 Dizziness and giddiness ; Note: Date Diagnosed : 09/16/2018 9:36 AM (R42) Not Available [facility] 4 03:05:03 Gastroeso phageal reflux disease without esophagit is 517469482 Active 2018 Gastro-es ophageal reflux disease without esophagit is; Note: Date Diagnosed : 09/16/2018 9:57 AM (K21.9) Not Available [facility] 4 03:05:03 Headache 99364751 Active 2018 Facial pain NOS; Note: Date Diagnosed : 09/16/2018 9:50 AM (R51) Not Available [facility] 4 03:05:02 Recurrent acute sinusitis 108104643 Active 2024 HARPREET HALEY MD [address] [place] [address], [place], [phone] , [place] - [facility] 5 16:29:55 Allergic rhinitis 55577162 Active 2024 HARPREET HALEY MD [address] [place] [address], [place], [phone] , [place] - [facility] 5 16:30:02 Problem Notes None recorded. Procedures Surgical History Date Name Laterality Status Provider Name and Address Organization Details Recorded Time 03/12/2024 Comp Audio with Tymps (78031 & 12299) completed ADALI ASKEW [place], CCC-A [address] [address], [place], [address], [facility] 03/12/2024 16:00:59 03/12/2024 NasalEndosc opy_DP completed HARPREET HALEY MD [address] [place] [address], [phone], [facility] 03/12/2024 16:29:37 Imaging Results Imaging Date Name Status LastModified by Organiz ation Details LastModified Time 03/15/2024 audiogram completed BARCODE Information no t available 03/15/2024 13:28:12 Procedure Notes None recorded. Medical Equipment None Reported. Allergies Allergen ID Allergen Name Allergen Category Reaction Reaction Severity Criticality Documentation Date Start Date Code Code System Note Provider Name and Address Organization Details Recorded Time 081022 tacrolimu s medicatio n Not available Not available Not available 03/12/2024 70574 RxNorm Zoraida Potvin null, [place] - [facility] 15:11:51 574831 Nexletol medicatio n Not available Not available Not available 03/12/2024 40962 09 RxNorm Zoraida Potvin null, [place] - [facility] 15:12:16 740915 Miebo medicatio n Not available Not available Not available 03/12/2024 57775 52 RxNorm Zoraida Potvin null, [place] - [facility] 15:12:27 682049 sulindac medicatio n Not available Not available Not available 03/12/2024 55841 RxNorm Zoraida Potvin null, [place] - [facility] 15:12:36 061399 Fosamax medicatio n Not available Not available Not available 03/12/2024 94295 5 RxNorm Zoraida Potvin null, [place] - [facility] 5 15:12:46 168101 latex environme nt,medica tion Not available Not available Not available 03/12/2024 02050 91 RxNorm Zoraida Potvin franko, [place] - [facility] 15:13:27 647085 Dexilant medicatio n Not available Not available Not available 03/12/2024 27168 1 RxNorm Zoraida Marsh franko [place] - [facility] 15:13:54 530325 doxycycli ne Not available Not available Not available Not available 03/12/2024 3640 RxNorm Zoraida Marsh franko, [facility] 15:14:23 Medications Name Sig Start Date Stop Date Status Note LastModified by Organization Details LastModified Time losartan 50 mg tablet active Not Available Not Available No t Available azithromyci n 250 mg tablet TAKE 1 TABLET ORALLY DAILY FOR 6 DAYS START ON DAY 2 OF THERAPY 03/12 completed Not Available Not Available Not Available sucralfate 1 gram tablet TAKE 1 TABLET BY MOUTH 2 TIMES A DAY FOR 90 DAYS active Not Available Not Available No t Available prednisone 20 mg tablet TAKE 1 TABLET BY MOUTH EVERY DAY FOR 4 DAYS 03/12 completed Not Available Not Available Not Available oxycodone-a cetaminophe n 5 mg-325 mg tablet TAKE 1 TABLET BY MOUTH EVERY 6 HOURS NEEDED FOR PAIN 03/12 completed Not Available Not Available Not Available prednisolon e acetate 1 % eye drops,suspe nsion PLEASE SEE ATTACHED FOR DETAILED DIRECTION S 03/12 completed Not Available Not Available Not Available lorazepam 0.5 mg tablet TAKE 1 TABLET ORALLY DAILY NEEDED FOR ANXIETY active Not Available Not Available No t Available flunisolide 25 mcg (0.025 %) nasal spray USE 2 SPRAYS NASALLY TWICE DAILY FOR NASAL CONGESTIO N/RHINORR HEA active Not Available Not Available No t Available pantoprazol e 40 mg tablet,alyssa yed release TAKE 1 TABLET BY MOUTH TWICE A DAY active Not Available Not Available No t Available erythromyci n 5 mg/gram (0.5 %) eye ointment APPLY SMALL RIBBON TO LEFT LOWER LID THREE AT BEDTIME 03/12 completed Not Available Not Available Not Available tacrolimus 0.1 % topical ointment APPLY TWICE DAILY TO EYELID DERMATITI S NEEDED active Not Available Not Available No t Available losartan 25 mg tablet TAKE 1 TABLET TWICE A DAY 03/12 completed Not Available Not Available Not Available hydrochloro thiazide 12.5 mg capsule Take 1 capsule every day by oral route. active Not Available Not Available No t Available aspirin 81 mg chewable tablet Chew 1 tablet every day by oral route. active Not Available Not Available No t Available montelukast 10 mg tablet TAKE 1 TABLET DAILY 03/12 completed Not Available Not Available Not Available ibuprofen 600 mg tablet TAKE 1 TABLET EVERY 8 HOURSAS NEEDED FOR PAIN. TAKE ITWITH FOOD AND FULL GLASS OFWATER 03/12 completed Not Available Not Available Not Available methylpredn isolone 4 mg tablets in a dose pack TAKE 6 TABLETS ON DAY 1 DIRECTED ON PACKAGE AND DECREASE BY 1 TAB EACH DAY FOR A TOTAL OF 6 DAYS 03/12 completed Not Available Not Available Not Available azithromyci n 500 mg tablet TAKE 1 TABLET BY MOUTH DAILY FOR 5 DAYS 03/12 completed Not Available Not Available Not Available Restasis 0.05 % eye drops in a dropperette INSTILL 1 DROP IN BOTH EYE TWICE A DAY active Not Available Not Available No t Available Zyrtec 10 mg chewable tablet Chew 1 tablet every day by oral route. active Not Available Not Available No t Available levalbutero l HFA 45 mcg/actuati on aerosol inhaler 2 PUFF INHALED EVERY 4 HOURS NEEDED FOR FOR WHEEZING active Not Available Not Available No t Available Repatha SureClick 140 mg/mL subcutaneou s pen injector INJECT 140 MG SUBCUTANE OUSLY EVERY 2 WEEKS active Not Available Not Available No t Available Qvar RediHaler 80 mcg/actuati on HFA breath activated aerosol INHALE 1 PUFF TWICE DAILY FOR 30 DAYS active Not Available Not Available No t Available Nexletol 180 mg tablet TAKE 1 TABLET ORALLY DAILY CHOLESTER OL MED 03/12 completed Not Available Not Available Not Available Vitals None Recorded Social History Question Answer Notes LastModified by Organizat ion Details LastModified Time Tobacco Smoking Status Former Smoker HARPREET HALEY MD [address] [place] [address], [place], [address], [facility] - [facility] 03/12/2024 09:06:30 How Much Tobacco Do You Smoke? 0.25 PPD [email or web address] Information not available 03/12/2024 Sex: Unknown Functional Status None recorded. Mental Status None recorded. Family History Nothing Reported. Medical History Condition Response Allergies/Hayfever Y Heart Problems Y Anxiety Y Tonsil Infections N Emphysema N Migraines N Thyroid Problems N Glaucoma N Depression N COPD N Developmental Delay N Nasal or Sinus Problems Y Anemia N Immune System Disorder N Anesthesia Complications N Heart Attack (NM) N Other Skin Condition N Diabetes N Rhinitis Y Bleeding Disorder N Food Allergy Y Arthritis Y Hearing Loss Y Hyperlipidemia N Cancer Y Stroke N Dementia N Nasal polyps N Asthma Y Sleep Disorder N GERD/Reflux Y High Cholesterol Y Liver Disease N Headaches N Fibromyalgia N Hypertension Y Speech Delay N Kidney Disease N Gynecological HistoryNo gynecological history recorded. Obstetrics History GPAL:G 0 P 0 0 0 0 Past Encounters Encounter ID Performer Location Encounter Start Date Encounter Closed Date Diagnosis/Indication Diagnosis SNOMED-CT Code Diagnosis ICD10 Code Diagnosis Note [id number] HARPREET HALEY MD [facility] [address] [phone] 03/12/2024 14:19:20 03/12/2024 16:35:50 Sensorineural hearing loss of bilateral ears [id number] H90.3 Audiologic al evaluation results: Right ear: {{Normal N ormal through 2 kHz Mild M oderate Mo derately-s evere Mercedes re Profoun d Normal/ borderline normal hearing thru 1500Hz,#}} {{hearing hearing. s loping to a mild slopi ng to a moderate s loping to moderately severe slo ping to severe slo ping to profound f lat high frequency low frequency mid frequency cookie bite toribio curve slop ing to a mild to severe SNHL#}} {{with* se nsorineura l hearing loss with condu ctive hearing loss with mixed hearing loss with}} {{excellen t* good fa ir poor no measurable }} word recognitio n. Left ear: {{Normal N ormal through 2 kHz Mild M oderate Mo derately-s evere Mercedes re Profoun d Normal hearing thru 3000Hz dropping to a mild #}} {{hearing hearing. s loping to a mild slopi ng to a moderate s loping to moderately severe slo ping to severe slo ping to profound f lat high frequency low frequency mid frequency cookie bite toribio curve to severe SNHL#}} {{with* se nsorineura l hearing loss with condu ctive hearing loss with mixed hearing loss with}} {{excellen t* good fa ir poor no measurable }} word recognitio n. Tympanomet ry: Right Ear:{{Type A* Type As Type Ad Type C Type C, shallow & rounded Ty pe B Type B with large volume Cou ld not maintain a hermetic seal}} Left Ear:{{Type A* Type As Type Ad Type C Type C, shallow & rounded Ty pe B Type B with large volume Cou ld not maintain a hermetic seal}} Recurrent acute sinusitis 285764688 J01.91 Allergic rhinitis 006582 04 J30.9 Health Concerns Section Related Observation LastModified by Organization Detai ls LastModified Time None Recorded Concern Status LastModified by Organization Details LastModified Time None Recorded Advance Directives Directive None Recorded Payers None recorded. Notes Date Note Type Note Provider Name and Address Organization Details Recorded Time 03/12/2024 text/html tinnitustried hearing aid with poor tolerance recent sinus/ear infection - rx zpak completed sinus infections per yearRAST +basil, cat PV 09/16/2018 Schreibstein, dizziness, tinnitus, sinus migraines and epistaxis - avoid migraine triggers allergy skin testing in 2014. She attempted SCIT with Dr. Lind in 2014 but had full body rashes.2017 septoplasty and turbinate coblation, balloon assisted maxillary and frontal sinus drainageShe drinks half a cup of coffee a day and decaf tea. She eats almonds and cheese on occasion and uses Splenda. She does not drink alcohol. She has photophobia and nausea associated with her headaches. She uses saline nasal spray and NetiPot to manage her sinus congestion symptoms HARPREET HALEY MD [address] [place] [address],[address], [phone], [facility] - [facility] 03/12/2024 16:35:50 OBGyn Episode No OBEpisode recorded.
== END 2024-03-16 09:29 | disposition home or self-care (01) ==
PROVIDERS: PCP Nurse Practitioner Family; Visit Provider Orthopaedic Surgery
DX: G56.01 Carpal tunnel syndrome, right upper limb (principal); G56.21 Lesion of ulnar nerve, right upper limb
CPT/HCPCS: 99024

== ENCOUNTER → 2024-03-19 08:44 | Outpatient (BNVA) | payer MEDICARE, SELFPAY | PROVIDERS: PCP Nurse Practitioner Family; Visit Provider Internal Medicine Gastroenterology | DX: R13.10 Dysphagia, unspecified (principal); K21.9 Gastro-esophageal reflux disease without esophagitis | CPT/HCPCS: 99212 ==

== ENCOUNTER → 2024-03-19 08:44 | Outpatient (AMB) | payer MEDICARE, SELFPAY ==
--- NOTE | 2024-03-19 08:53 | A.OFFVIS_ITS ---
Vital Signs 03/19/24 08:56 Height 4 ft 11 in Weight 158 lb 11.725 oz BMI 32.1 BP 124/82 Blood Pressure Location Lt brachial Position Sitting Intake Visit Reasons: 6 month follow up Intake Note: Adali presents in the office as a 6 month follow up. CC: She is having concerns with her bowels and digestive system. She states she had a low grade tumor in her bladder that was removed and not sure if there is any anywhere else. Allergies dexlansoprazole [From DEXILANT] Allergy (Severe, Verified 03/19/24 08:57) dizziness, change in HR risedronate sodium [From ACTONEL] Allergy (Severe, Verified 03/19/24 08:57) chest discomfort Igjsatd-QED-CuT Reductase Inhibitor [PYLUQDJ-HPN-GNI REDUCTASE INHIBITOR] Allergy (Severe, Verified 03/19/24 08:57) JOINT PAIN tramadol [TRAMADOL] Allergy (Severe, Verified 03/19/24 08:57) THROAT TIGHTNESS amlodipine [AMLODIPINE] Allergy (Intermediate, Verified 03/19/24 08:57) PALIPITATIONS Atrovent Allergy (Intermediate, Verified 03/19/24 08:57) Cough baclofen [BACLOFEN] Allergy (Intermediate, Verified 03/19/24 08:57) LETHARGY Beta-Blockers (Beta-Adrenergic Bloc Allergy (Intermediate, Verified 03/19/24 08:57) BRADYCARDIA budesonide [From SYMBICORT] Allergy (Intermediate, Verified 03/19/24 08:57) HOARSENESS Chocolate Allergy (Intermediate, Verified 03/19/24 08:57) GERD ezetimibe [From ZETIA] Allergy (Intermediate, Verified 03/19/24 08:57) JOINT PAIN, ELEVATED CPK fluticasone [From ADVAIR DISKUS] Allergy (Intermediate, Verified 03/19/24 08:57) HTN glucosamine Allergy (Intermediate, Verified 03/19/24 08:57) LE edema ibandronate sodium [From BONIVA] Allergy (Intermediate, Verified 03/19/24 08:57) CHEST PAIN latex [LATEX] Allergy (Intermediate, Verified 03/19/24 08:57) RASH-SENSITIVITY lisinopril [LISINOPRIL] Allergy (Intermediate, Verified 03/19/24 08:57) COUGH, really bad cough meloxicam [From MOBIC] Allergy (Intermediate, Verified 03/19/24 08:57) GI UPSET mometasone furoate [From DULERA] Allergy (Intermediate, Verified 03/19/24 08:57) COUGH niacin Allergy (Intermediate, Verified 03/19/24 08:57) Flushing Penicillins [PENICILLINS] Allergy (Intermediate, Verified 03/19/24 08:57) RASH pregabalin [From LYRICA] Allergy (Intermediate, Verified 03/19/24 08:57) GERD flare up raloxifene [From EVISTA] Allergy (Intermediate, Verified 03/19/24 08:57) GERD rofecoxib [From Vioxx] Allergy (Intermediate, Verified 03/19/24 08:57) ankle swelling salmeterol [From ADVAIR DISKUS] Allergy (Intermediate, Verified 03/19/24 08:57) HTN scallops [SCALLOPS] Allergy (Intermediate, Verified 03/19/24 08:57) NAUSEA & VOMITING sertraline [From ZOLOFT] Allergy (Intermediate, Verified 03/19/24 08:57) SKIN CRAWLING spironolactone [SPIRONOLACTONE] Allergy (Intermediate, Verified 03/19/24 08:57) RASH, ?? psoriasis strawberry [STRAWBERRY] Allergy (Intermediate, Verified 03/19/24 08:57) ITCHING tiotropium [From SPIRIVA WITH HANDIHALER] Allergy (Intermediate, Verified 03/19/24 08:57) RAW THROAT, pharyngitis verapamil [VERAPAMIL] Allergy (Intermediate, Verified 03/19/24 08:57) IRREGULAR HEARTBEAT esomeprazole [Nexium] Allergy (Mild, Verified 03/19/24 08:57) did not resolve GERD naproxen [From ALEVE] Allergy (Mild, Verified 03/19/24 08:57) FLUSH omeprazole Allergy (Mild, Verified 03/19/24 08:57) did not resolve GERD tacrolimus Allergy (Mild, Verified 03/19/24 08:57) Rash adhesive [ADHESIVE] Allergy (Unknown, Verified 03/19/24 08:57) RASH doxycycline [DOXYCYCLINE] Allergy (Unknown, Verified 03/19/24 08:57) SEVERE NOYOLA, HEARTBURN, joint pain gabapentin [From NEURONTIN] Allergy (Unknown, Verified 03/19/24 08:57) leg swelling, SOB metoclopramide [From REGLAN] Allergy (Unknown, Verified 03/19/24 08:57) LETHARGY monosodium glutamate [MSG] Allergy (Unknown, Verified 03/19/24 08:57) HEADACHE, increased HR lifitegrast [From Xiidra] Allergy (Verified 03/19/24 08:57) blurred vision, headache, eye swelling metoprolol Adverse Reaction (Severe, Verified 03/19/24 08:57) Severe bradycardia alendronate sodium [From Fosamax] Adverse Reaction (Intermediate, Verified 03/19/24 08:57) Joint Pain amitriptyline Adverse Reaction (Intermediate, Verified 03/19/24 08:57) Agitated cyclosporine [From Cequa] Adverse Reaction (Intermediate, Verified 03/19/24 08:57) Eye Swelling fluticasone furoate [From Trelegy Ellipta] Adverse Reaction (Intermediate, Verified 03/19/24 08:57) asthma exacerbation perfluorohexyloctane [From Miebo] Adverse Reaction (Intermediate, Verified 03/19/24 08:57) Eye Swelling tobramycin [From Tobrex] Adverse Reaction (Intermediate, Verified 03/19/24 08:57) Eye Swelling umeclidinium [From Trelegy Ellipta] Adverse Reaction (Intermediate, Verified 03/19/24 08:57) asthma exacerbation vilanterol [From Trelegy Ellipta] Adverse Reaction (Intermediate, Verified 03/19/24 08:57) asthma exacerbation azelastine Adverse Reaction (Mild, Verified 03/19/24 08:57) Gastrointestinal Upset hi Adverse Reaction (Intermediate, Uncoded 03/19/24 08:57) Itchy Eyes Sulindac Adverse Reaction (Intermediate, Uncoded 03/19/24 08:57) Nausea, pain HPI HPI 6 month follow up: Details: 73 yr old f here for f/u RECAP: seen by May initially due to GERD neg caridac eval using wedge pillows she has failed omeprazole, Nexium, Dexilant, and Gaviscon. She has done the best on Protonix and takes it twice a day about 3 times a week she had ba swallow 2015- pill was ok, reflux noted, small sliding hiatal hernia repeat GI series 11/2018--same as above, small bowel was normal EGD- with dilation- helped her dysphagia, 4 cm hiatal hernia noted. mild gastritis she had ongoing sx with regurg, vomtiing, and burping advised on SALT consult for aerophagia trial of zegrid and pepcid combo At f/u visit she was still on pantoprazole bid and gas x or tums otherwise vomiting was better but still had breakthru burping, regurgitation, and sob if she bends forward she was also coughing after eating some ruq and epigastric discomfort still has trouble food sticking occ she did have one episode of blood noted in stool, on wiping, slight after having a nose bleed and coughing some blood, colonoscopy 2016 with diverticulosis, no mention made of hemorrhoids she does have nose bleeds on and off maybe once a week, uses 3-5 tissues has afrin at home CBC was good with HGB 14 g/dl sigmoidoscopy with grade II internal hemorrhoids, and severe diverticulosis, fair prep, no blood seen in colon u/s liver 03/2019-- fatty liver, hepatomegaly GES 03/2019--normal emptying she was referred to Dr Del Rosario for lap repair of hiatal hernia 09/2019 and did well I ordered CT scan for groin pain revealed fat containing inguinal hernias, awaiting surgical repair by Dr Carson of right side she had noticed she is going to bathroom more often, she has urgency she was still taking align and Mag, Advised to stop Mag supplements, and increase fiber intake Ba swallow-- 04/2020--normal EGD 11/30-- gastritis, esophagitis bx: moderate inflammation GEJ switched from pepcid to PPI She had repeat EGD and colonoscopy Endoscopy Findings: slightly lax LES gastritis Colonoscopy Findings internal hemorrhoids diverticular disease erosive ileitis Path: GEJ --mild chronic inflammation, focal ileitis, colon bx normal prior to endoscopies she had just commenced celebrix, stopped ibuprofen--for spinal pain and hand pain Ba swallow- mild reflux , normal swallow, no pill given EGD 02/05/23 Balloon dilation 18 mm, esophageal stricture hiatal hernia EGD 05/2023: erosive gastritis small hiatal hernia dilation done 20 mm balloon EGD:01/15/24 savary dilation 16 mm INTERIM: dilation has helped, belching not as bad occ breakthru sx and takes carafate she had increase in viactive -- trying to increase ca in urine more issues with constipation since then we had a long discussion about bladder ca and importance of surveillance, EXAM: voice is normal GENERAL: The patient is well developed and nontoxic. VITAL SIGNS:see workflow HEENT: Nonicteric sclerae, PERRLA, EOMI. Oropharynx clear. Moist mucous membranes. Conjunctivae appear well perfused. No thyroid mass. CHEST: Chest wall is nontender. HEART: Regular rate and rhythm without murmurs. LUNGS: Clear to auscultation bilaterally. ABDOMEN: Soft, positive bowel sounds, nontender, no organomegaly.no flank tenderness SKIN: No rash, no excessive bruising, petechiae, or purpura. NEUROLOGIC: Cranial nerves II-XII intact without motor/sensory deficit. Assessment & Plan 1/ GERD, on PPI 2/ severe diverticulosis causing LLQ pain and discomfort--not an issue at this time 3/ dysphagia, prob from 1/ above and possible esophageal spasm --improved PLAN: 1/ cont with PPI, repeat dilation, use savary next time [facility] Medical History Esophageal spasm Hx of carcinoma of bladder Bladder carcinoma History of trigger finger Cervical radiculitis Chronic sinusitis GERD (gastroesophageal reflux disease) FRANCESCA (obstructive sleep apnea) CAD (coronary artery disease) History of primary hyperparathyroidism Non-toxic multinodular goiter Osteoporosis Pulmonary nodules H/O gastroesophageal reflux (GERD) HLD (hyperlipidemia) HTN (hypertension) COPD (chronic obstructive pulmonary disease) Asthma History of aneurysm Migraine Depression PTSD (post-traumatic stress disorder) History of panic attacks Anxiety Edema History of deviated nasal septum Medial epicondylitis of left elbow Fusion of spine, cervical region Surgical History History of carpal tunnel release Hx of cystoscopy H/O cervical spine surgery Hx of hand surgery Hx of right inguinal hernia repair History of hernia repair Hx of colonoscopy History of esophagogastroduodenoscopy (EGD) S/P repair of paraesophageal hernia H/O decompression of ulnar nerve Status post ablation of incompetent vein using laser History of cardiac catheterization History of eyelid surgery History of appendectomy History of parathyroidectomy History of cholecystectomy Hx of cataract surgery Hx of shoulder surgery S/P cubital tunnel release S/P arthroscopic surgery of right knee History of lumpectomy of both breasts History of hysterectomy Hx of adenoidectomy Hx of tonsillectomy Hx of eye surgery Family History Father Liver cancer Psoriasis Cancer Mental health disorder Mother Cervical cancer Ovarian cancer Heart attack Substance use disorder Social History Household Members: Children and None Housing: House Alcohol intake: current Alcohol intake frequency: does not drink Patient Tobacco Use Status: Former Tobacco user Tobacco use type: Cigarette e-Cigarette/Vaping Use: Never Used Second Hand Smoke Exposure: No service: No Current occupational status: employed 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
== END | disposition home or self-care (01) ==
PROVIDERS: PCP Nurse Practitioner Family; Visit Provider Internal Medicine Gastroenterology
CPT/HCPCS: 99213

== ENCOUNTER 2024-04-02 07:20 | Outpatient (REF) | payer MEDICARE, SELFPAY ==
--- NOTE | ~2024-04-02 | MM_ITS ---
EXAMINATION: DXA BONE DENSITY AXIAL HISTORY: Estrogen deficiency TECHNIQUE: MEDArchon Dual energy absorptiometry (DEXA) of the lumbar spine, total left hip, and femoral neck was performed. COMPARISON: Comparison is made with the prior examination dated 03/08/2022. FINDINGS: The bone mineral density of the lumbar spine is 0.916 with a T-score of -2.1, and a Z-score of -0.5. This represents a BMD change of -1.1% compared to the prior exam. This is not statistically significant. The bone mineral density of the left total hip is 0.738 with a T-score of -2.1, and a Z-score of -0.6. This represents BMD change of 3.8% compared to the prior exam. This is not statistically significant. The bone mineral density of the left femoral neck is 0.649 with a T-score of -2.8, and a Z-score of -1.0. This represents BMD change of -1.5% compared to the prior exam. FRACTURE RISK: The FRAX index suggests a ten year probability of major osteoporotic fracture of 26.8%, and of hip fracture 9.1%. MM/XR DEXA axial skeleton IMPRESSION: Based on bone mineral density, and according to World Health Organization (WHO) criteria, the diagnosis is consistent with osteoporosis. All bone density values are in grams per centimeter squared (g/cm2). Statistically, 68% of repeat scans fall within 1 SD (+/- 0.010 g/cm2 for AP spine L1-L4) and 1 SD (+/- 0.012 g/cm2 for femur total) FRAX is a trademark of the [employer] Met[employer] Disease, a World Health Organization (WHO) Collaborating Center. Electronically signed by: Manas Barr MD 04/05/2024 08:49 AM [facility] [place]
--- OUTSIDE RECORDS SUMMARY | 2024-04-02 07:22 | XMS_ITS | Patient Health Record ---
Author Organization [facility] Address [address] [place] [address] Care Team Providers Care Insurance And Benefits Clerk Name Role Phone BEBE VELASCO M.D Primary Care Provider LIZANDRO Bean Unavailable [phone] Allergies Allergen (clinical drug ingredient) Drug/Non Drug Allergy documented on EMR Reaction Allergy Type Onset Date Status 12 Hour Nasal [place] Unknown Drug Allergy Active risedronate Actonel Unknown [...] Status Risk Notes Problem Postmenopausal atrophic vaginitis (04252311) Postmenopausal atrophic vaginitis (N95.2) Active confirmed Problem Age-related osteoporosis (007532375) Age-related osteoporosis without current pathological fracture (M81.0) Active confirmed Problem Essential hypertension (37891187) Essential (primary) hypertension (I10) Active confirmed Problem Hyperlipidemia (03251997) Hyperlipidemia, unspecified (E78.5) Active confirmed Problem Uncomplicated asthma (disorder) (236867012) Unspecified asthma, uncomplicated (J45.909) Active confirmed Problem Gastro-esophageal reflux disease without esophagitis (631880451) Gastro-esophageal reflux disease without esophagitis (K21.9) Active confirmed Plan Of Treatment No Information Insurance Providers Payer Name Payer Address Payer Phone Subscriber Number Group Number Insured Name Patient Relationship to Insured Coverage Start Date Coverage End Date MEDICARE [address] [facility], [place] [id number] JORGITO MANCILLA Self - patient is the [...]
--- OUTSIDE RECORDS SUMMARY | 2024-04-02 07:23 | XMS_ITS | Data Portability ---
Author Organization [place] - [facility] Address [address] [place] [address] Care Team Providers Care Manufacturing Quality Technician Name Role Phone BEBE VELASCO Primary Care Provider Assessment Encounter Date Assessment Date Assessment LastModified [...] Address Organization Details Recorded Time Bilateral tinnitus 07834810550 02 Active 2018 Tinnitus, bilateral ; Note: Date Diagnosed : 09/16/2018 9:36 AM (H93.13) Not Available Replaced by [facility] 4 03:05:03 Sensorine ural hearing loss of bilateral ears 314387897 Active 2018 Sensorine ural hearing loss, bilateral ; Note: Date Diagnosed : 09/16/2018 9:36 AM (H90.3) Not Available Replaced by [facility] 4 03:05:03 Migraine with aura 4863908 Active 2018 Migraine with aura, not intractab le, without status migrainos us; Note: Date Diagnosed : 09/16/2018 9:50 AM (G43.109) Not Available Replaced by [facility] 4 03:05:05 Dizziness and giddiness 051502561 Active 2018 Dizziness and giddiness ; Note: Date Diagnosed : 09/16/2018 9:36 AM (R42) Not Available Replaced by [facility] 4 03:05:03 Gastroeso phageal reflux disease without esophagit is 595806979 Active 2018 Gastro-es ophageal reflux disease without esophagit is; Note: Date Diagnosed : 09/16/2018 9:57 AM (K21.9) Not Available Replaced by [facility] 4 03:05:03 Headache 47539967 Active 2018 Facial pain NOS; Note: Date Diagnosed : 09/16/2018 9:50 AM (R51) Not Available Replaced by [facility] 4 03:05:02 Recurrent acute sinusitis 998981763 Active 2024 HARPREET HALEY MD [address] [place] [address], [place], [address] , [place] - [facility] 5 16:29:55 Allergic rhinitis 86241535 Active 2024 HARPREET HALEY MD [address] [place] [address], [place], [address] , [place] - [facility] 5 16:30:02 Problem Notes None recorded. Procedures Surgical History Date Name Laterality Status Provider Name and Address Organization Details Recorded Time 03/12/2024 Comp Audio with Tymps (35636 & 31511) completed ADALI ASKEW [place], CCC-A [address] [address], [place], [address], [facility] 03/12/2024 16:00:59 03/12/2024 NasalEndosc opy_DP completed HARPREET HALEY MD [address] [place] [address], [phone], [facility] 03/12/2024 16:29:37 Imaging Results Imaging Date Name Status LastModified by Organiz ation Details LastModified Time 03/15/2024 audiogram completed BARCODE Information no t available 03/15/2024 13:28:12 Procedure Notes None recorded. Medical Equipment None Reported. Allergies Allergen ID Allergen Name Allergen Category Reaction Reaction Severity Criticality Documentation Date Start Date Code Code System Note Provider Name and Address Organization Details Recorded Time [id number] tacrolimu s medicatio n Not available Not available Not available 03/12/2024 15205 RxNorm Zoraida Potvin null, [place] - [facility] 15:11:51 816302 Nexletol medicatio n Not available Not available Not available 03/12/2024 02162 09 RxNorm Zoraida Potvin null, [place] - [facility] 15:12:16 742590 Miebo medicatio n Not available Not available Not available 03/12/2024 65741 52 RxNorm Zoraida Potvin null, [place] - [facility] 15:12:27 828677 sulindac medicatio n Not available Not available Not available 03/12/2024 99517 RxNorm Zoraida Potvin null, [place] - [facility] 15:12:36 068373 Fosamax medicatio n Not available Not available Not available 03/12/2024 87724 5 RxNorm Zoraida Potvin null, [place] - [facility] 5 15:12:46 985050 latex environme nt,medica tion Not available Not available Not available 03/12/2024 82673 91 RxNorm Zoraida Potvin franko, [place] - [facility] 15:13:27 601890 Dexilant medicatio n Not available Not available Not available 03/12/2024 06352 1 RxNorm Zoraida Marsh franko [place] - [facility] 15:13:54 000614 doxycycli ne Not available Not available Not available Not available 03/12/2024 3640 RxNorm Zoraida Marsh franko, [facility] 15:14:23 Medications Name Sig Start Date Stop [...] Smoking Status Former Smoker HARPREET HALEY MD [address] [place] [address], [place], [address], [facility] - [facility] 03/12/2024 09:06:30 How Much Tobacco Do You [...] Disorder N Anesthesia Complications N Heart Attack ([place]) N Other Skin Condition N Diabetes N [...] SNOMED-CT Code Diagnosis ICD10 Code Diagnosis Note [id number] HARPREET HALEY MD [facility] [address] [phone] 03/12/2024 14:19:20 03/12/2024 16:35:50 Sensorineural hearing loss of bilateral ears [id number] H90.3 Audiologic al evaluation results: Right ear: [...] maintain a hermetic seal}} Recurrent acute sinusitis 387224316 J01.91 Allergic rhinitis 024359 04 J30.9 Health Concerns Section Related Observation [...] her sinus congestion symptoms HARPREET HALEY MD [address] [place] [address],[address], [address], [facility] - [facility] 03/12/2024 16:35:50 OBGyn Episode No OBEpisode recorded.
--- OUTSIDE RECORDS SUMMARY | 2024-04-02 07:23 | XMS_ITS | Continuity of Care Document ---
Author Organization [place] - [facility], ENTS [facility] Address [address] [place] [address] Care Team Providers Care Electronics Mechanic Apprentice Name Role Phone BEBE VELASCO Primary Care [...] Address Organization Details Recorded Time Bilateral tinnitus 66935067991 02 Active 2018 Tinnitus, bilateral ; Note: Date Diagnosed : 09/16/2018 9:36 AM (H93.13) Not Available [facility] 4 03:05:03 Sensorine ural hearing loss of bilateral ears 159060863 Active 2018 Sensorine ural hearing loss, bilateral ; Note: Date Diagnosed : 09/16/2018 9:36 AM (H90.3) Not Available [facility] 4 03:05:03 Migraine with aura 4726856 Active 2018 Migraine with aura, not intractab le, without status migrainos us; Note: Date Diagnosed : 09/16/2018 9:50 AM (G43.109) Not Available [facility] 4 03:05:05 Dizziness and giddiness 914042990 Active 2018 Dizziness and giddiness ; Note: Date Diagnosed : 09/16/2018 9:36 AM (R42) Not Available [facility] 4 03:05:03 Gastroeso phageal reflux disease without esophagit is 318832692 Active 2018 Gastro-es ophageal reflux disease without esophagit is; Note: Date Diagnosed : 09/16/2018 9:57 AM (K21.9) Not Available [facility] 4 03:05:03 Headache 25283255 Active 2018 Facial pain NOS; Note: Date Diagnosed : 09/16/2018 9:50 AM (R51) Not Available [facility] 4 03:05:02 Recurrent acute sinusitis 717468224 Active 2024 HARPREET HALEY MD [address] [place] [address],[place] [address], [place], [address] , [place] - [facility] 5 16:29:55 Allergic rhinitis 97571928 Active 2024 HARPREET HALEY MD [address] [place] [address],[place] [address], [place], [address] , [place] [facility] 5 16:30:02 Problem Notes None recorded. Procedures Surgical History Date Name Laterality Status Provider Name and Address Organization Details Recorded Time 03/12/2024 Comp Audio with Tymps (83298 & 72687) completed ADALI ASKEW MA, CCC-A [address] [place] [address], [phone], [facility] 03/12/2024 16:00:59 03/12/2024 NasalEndosc opy_DP completed HARPREET HALEY MD [address] [place] [address], [phone], [facility] 03/12/2024 16:29:37 Imaging Results None recorded. Procedure Notes None recorded. Medical Equipment None Reported. Allergies Allergen ID Allergen Name Allergen Category Reaction Reaction Severity Criticality Documentation Date Start Date Code Code System Note Provider Name and Address Organization Details Recorded Time 661609 tacrolimu s medicatio n Not available Not available Not available 03/12/2024 58778 RxNorm Zoraida Potvin null, [place] - [facility] 15:11:51 766506 Nexletol medicatio n Not available Not available Not available 03/12/2024 41084 09 RxNorm Zoraida Potvin null, [place] - [facility] 15:12:16 240673 Miebo medicatio n Not available Not available Not available 03/12/2024 41256 52 RxNorm Zoraida Potvin null, [place] - [facility] 15:12:27 221552 sulindac medicatio n Not available Not available Not available 03/12/2024 54981 RxNorm Zoraida Potvin null, [place] - [facility] 15:12:36 547871 Fosamax medicatio n Not available Not available Not available 03/12/2024 23900 5 RxNorm Zoraida Potvin null, [place] - [facility] 15:12:46 498279 latex environme nt,medica tion Not available Not available Not available 03/12/2024 17166 91 RxNorm Zoraida Potvin null, [place] - [facility] 15:13:27 870281 Dexilant medicatio n Not available Not available Not available 03/12/2024 49904 1 RxNorm Zoraida Garzamartine abdul [place] - [facility] 5 15:13:54 559690 doxycycli ne Not available Not available Not available Not available 03/12/2024 3640 RxNorm Zoraida Marsh CONSUELO abdul - [facility] 5 15:14:23 Medications Name Sig Start Date Stop [...] Smoking Status Former Smoker HARPREET HALEY MD [address] [place] [address], [place], [address], [facility] - [facility] 03/12/2024 09:06:30 How Much Tobacco Do You Smoke? 0.25 PPD [email or web address] Information not available 03/12/2024 Sex: Unknown Functional Status None recorded. Mental Status None recorded. Family History Nothing Reported. Medical History Condition Response Allergies/Hayfever Y Heart Problems Y Anxiety Y Tonsil Infections N Emphysema N Migraines N Thyroid Problems N Depression N COPD N Developmental Delay N Glaucoma N Nasal or Sinus Problems Y Anemia N Immune System Disorder N Anesthesia Complications N Heart Attack ([place]) N Other Skin Condition N Diabetes N Rhinitis Y Bleeding Disorder N Food Allergy Y Hearing Loss Y Arthritis Y Hyperlipidemia N Cancer Y Stroke N Dementia N Nasal polyps N Asthma Y Sleep Disorder N High Cholesterol Y GERD/Reflux Y Liver Disease N Headaches N Fibromyalgia N Hypertension Y Speech Delay N Kidney Disease N Gynecological HistoryNo gynecological history recorded. Obstetrics History GPAL:G 0 P 0 0 0 0 Past Encounters Encounter ID Performer Location Encounter Start Date Encounter Closed Date Diagnosis/Indication Diagnosis SNOMED-CT Code Diagnosis ICD10 Code Diagnosis Note [id number] HARPREET HALEY MD [facility] [address] [address] 03/12/2024 14:19:20 03/12/2024 16:35:50 Sensorineural hearing loss of bilateral ears 229296876 H90.3 Audiologic al evaluation results: Right ear: [...] maintain a hermetic seal}} Recurrent acute sinusitis 212297150 J01.91 Allergic rhinitis 247523 04 J30.9 Health Concerns Section Related Observation LastModified by Organization Detai ls LastModified Time None Recorded Concern Status LastModified by Organization Details LastModified Time None Recorded Payers None recorded. Notes Date Note Type Note Provider Name and Address Organization Details Recorded Time 03/12/2024 text/html tinnitustried hearing aid with poor tolerance recent sinus/ear infection - rx zpak completed sinus infections per yearRAST +birch, cat PV 09/16/2018 Schreibstein, dizziness, tinnitus, sinus migraines and epistaxis - avoid migraine triggers allergy skin testing in 2014. She attempted SCIT with Dr. Lind in 2014 but had full body rashes. 2017 septoplasty and turbinate coblation, balloon assisted maxillary and frontal sinus drainageShe drinks half a cup of coffee a day and decaf tea. She eats almonds and cheese on occasion and uses Splenda. She does not drink alcohol. She has photophobia and nausea associated with her headaches. She uses saline nasal spray and NetiPot to manage her sinus congestion symptoms HARPREET HALEY MD [address] [place] [address], [place], [address], [facility] - [facility] 03/12/2024 16:35:50 OBGyn Episode No OBEpisode recorded.
== END 2024-04-02 07:21 | disposition home or self-care (01) ==
LOC: HO.MAMMO 07:20
PROVIDERS: PCP Nurse Practitioner Family; Visit Provider Internal Medicine Endocrinology, Diabetes & Metabolism
DX: Z12.31 Encounter for screening mammogram for malignant neoplasm of breast (principal); M81.0 Age-related osteoporosis without current pathological fracture
CPT/HCPCS: 77063; 77067; 77080

== ENCOUNTER → 2024-04-02 08:15 | Outpatient (BNV) | payer MEDICARE, SELFPAY | PROVIDERS: PCP Nurse Practitioner Family; Visit Provider Radiology Diagnostic Radiology | DX: Z12.31 Encounter for screening mammogram for malignant neoplasm of breast (principal) | CPT/HCPCS: 77063; 77067 ==

== ENCOUNTER 2024-04-21 08:30 | Outpatient (REF) | payer MEDICARE, SELFPAY ==
--- NOTE | ~2024-04-21 | XR_ITS ---
EXAMINATION: XR CERVICAL SPINE CLINICAL INFORMATION: PAIN,S/P C6-7 DECOMPRESSION COMPARISON: Correlated to MRI cervical spine dated February 14, 2021. TECHNIQUE: 6 views of the cervical spine, inclusive of flexion and extension views, were obtained. FINDINGS: Anterior metallic endplate at C4-5 and color screws through the vertebral bodies. Intervertebral disc spacer placement C4-5. No acute cortical disruption. No gross loosening. Anterior cervical endplate at C5 C7 without gross loosening. Incomplete ankylosis/arthrodesis C5 C7 and C4-5. No gross malalignment. Craniocervical junction is intact. Multiple vascular clips in the neck/prevertebral compartment. Upper airway is patent. XR/XR cervical spine 4V IMPRESSION: Status post anterior cervical fusion/arthrodesis at C4-5 and C5 C7 without gross loosening. Electronically signed by: Rob Rivers MD 04/21/2024 09:56 AM EDT
--- OUTSIDE RECORDS SUMMARY | 2024-04-21 09:00 | XMS_ITS | Data Portability ---
Author Organization [place] - [facility], Allergy Address [address] [place] [address] Care Team Providers Care Clip Baker Name Role Phone BEBE VELASCO Primary Care [...] Address Organization Details Recorded Time Bilateral tinnitus [id number] 02 Active 2018 Tinnitus, bilateral ; Note: Date Diagnosed : 09/16/2018 9:36 AM (H93.13) Not Available [facility] 4 03:05:03 Sensorine ural hearing loss of bilateral ears 014108965 Active 2018 Sensorine ural hearing loss, bilateral ; Note: Date Diagnosed : 09/16/2018 9:36 AM (H90.3) Not Available [facility] 4 03:05:03 Migraine with aura 3207599 Active 2018 Migraine with aura, not intractab le, without status migrainos us; Note: Date Diagnosed : 09/16/2018 9:50 AM (G43.109) Not Available [facility] 4 03:05:05 Dizziness and giddiness 609844454 Active 2018 Dizziness and giddiness ; Note: Date Diagnosed : 09/16/2018 9:36 AM (R42) Not Available [facility] 4 03:05:03 Gastroeso phageal reflux disease without esophagit is 291957340 Active 2018 Gastro-es ophageal reflux disease without esophagit is; Note: Date Diagnosed : 09/16/2018 9:57 AM (K21.9) Not Available [facility] 4 03:05:03 Headache 39516453 Active 2018 Facial pain NOS; Note: Date Diagnosed : 09/16/2018 9:50 AM (R51) Not Available [facility] 4 03:05:02 Recurrent acute sinusitis 417212439 Active 2024 HARPREET HALEY MD [address] [place] [address], [place], [address] , [place] - [facility] 5 16:29:55 Allergic rhinitis 18582901 Active 2024 HARPREET HALEY MD [address] [place] [address], [place], [address] , [place] [facility] 5 16:30:02 Problem Notes None recorded. Procedures Surgical History Date Name Laterality Status Provider Name and Address Organization Details Recorded Time 03/12/2024 Comp Audio with Tymps (66690 & 51683) completed ADALI ASKEW MA, CCC-A [address] [address], [place], [address], [facility] 03/12/2024 16:00:59 03/12/2024 NasalEndosc opy_DP completed HARPREET HALEY MD [address] [place] [address], [phone], [facility] 03/12/2024 16:29:37 Imaging Results Imaging Date Name Status LastModified by Organiz ation Details LastModified Time 03/15/2024 audiogram completed BARCODE Information no t available 03/15/2024 13:28:12 Procedure Notes None recorded. Medical Equipment None Reported. Allergies Allergen ID Allergen Name Allergen Category Reaction Reaction Severity Criticality Documentation Date Start Date Code Code System Note Provider Name and Address Organization Details Recorded Time 491327 tacrolimu s medicatio n Not available Not available Not available 03/12/2024 31431 RxNorm Zoraida Potvin null, [place] - [facility] 15:11:51 783000 Nexletol medicatio n Not available Not available Not available 03/12/2024 04045 09 RxNorm Zoraida Potvin null, [place] - [facility] 15:12:16 477022 Miebo medicatio n Not available Not available Not available 03/12/2024 08178 52 RxNorm Zoraida Potvin null, [place] - [facility] 15:12:27 912431 sulindac medicatio n Not available Not available Not available 03/12/2024 09685 RxNorm Zoraida Potvin null, [place] - [facility] 15:12:36 409964 Fosamax medicatio n Not available Not available Not available 03/12/2024 03302 5 RxNorm Zoraida Potvin null, [place] - [facility] 5 15:12:46 855598 latex environme nt,medica tion Not available Not available Not available 03/12/2024 15592 91 RxNorm Zoraida Potvin franko, [place] - [facility] 15:13:27 492915 Dexilant medicatio n Not available Not available Not available 03/12/2024 62870 1 RxNorm Zoraida Marsh franko [place] - [facility] 15:13:54 461079 doxycycli ne Not available Not available Not available Not available 03/12/2024 3640 RxNorm Zoraida Marsh franko, [facility] 15:14:23 Medications Name Sig Start Date [...] LastModified Time Tobacco Smoking Status Former Smoker HARRPEET HALEY MD [address] [place] [address], [place], [address], [facility] - [facility] 03/12/2024 09:06:30 How Much Tobacco Do [...] Disorder N Anesthesia Complications N Heart Attack ([place]) N Other Skin Condition N Diabetes N Rhinitis Y Bleeding Disorder N Food Allergy Y Arthritis Y Hearing Loss Y Hyperlipidemia N Cancer Y Stroke N Dementia N Nasal polyps N Asthma Y High Cholesterol Y Sleep Disorder N GERD/Reflux Y Liver Disease N Headaches N Fibromyalgia N Hypertension Y Speech Delay N Kidney Disease N Gynecological HistoryNo gynecological history recorded. Obstetrics History GPAL:G 0 P 0 0 0 0 Past Encounters Encounter ID Performer Location Encounter Start Date Encounter Closed Date Diagnosis/Indication Diagnosis SNOMED-CT Code Diagnosis ICD10 Code Diagnosis Note [id number] HARPREET HALEY MD [facility] [address] [phone] 03/12/2024 14:19:20 03/12/2024 16:35:50 Sensorineural hearing loss of bilateral ears [id number] H90.3 Audiologic al evaluation results: Right ear: [...] maintain a hermetic seal}} Recurrent acute sinusitis 963759848 J01.91 Allergic rhinitis 931435 04 J30.9 Health Concerns Section Related Observation [...] her sinus congestion symptoms HARPREET HALEY MD [address] [place] [address],[address], [address], [facility] - [facility] 03/12/2024 16:35:50 OBGyn Episode No OBEpisode recorded.
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
--- OUTSIDE RECORDS SUMMARY | 2024-04-21 09:01 | XMS_ITS | Clinical Summary ---
Author Organization [facility] Address [address] [place] [address] Phone Care Team Providers Care Radiophone Operator Name Role Phone Sachin Linares NP Primary Care Provider Encounters Date Type Department Care Team Description 04/19/2024 Telephone [facility] [address] [place] [phone] Corrine Galvan MA from Last 3 Months Surgical History Surgery Date Site/Laterality Comments ELBOW SURGERY 08/2007 PROCEDURE: HISTORICAL ELBOW SURGERY; COMMENT: Cubital tunnel release NECK SURGERY 07/2009 PROCEDURE: HISTORICAL NECK SURGERY; COMMENT: Left C6-7 decompression and foraminotomy, Dr. Rodriguez HYSTERECTOMY 1978 PROCEDURE: HISTORICAL HYSTERECTOMY OTHER SURGICAL HISTORY PROCEDURE: ---- OTHER ----; COMMENT: nasal septoplasty and turbinoplasty NECK SURGERY 07/02/2022 PROCEDURE: HISTORICAL NECK SURGERY; COMMENT: C4-5 ACDFDr. Rodriguez NECK SURGERY 11/26/2012 PROCEDURE: HISTORICAL NECK SURGERY; COMMENT: C5-6, C6-7 ACDFDr. Rodriguez Medical History Medical History Date Comments Anxiety 01/16/2017 DX:Anxiety Hypertension 01/16/2017 DX:Hypertension GERD (gastroesophageal reflux disease) 01/16/2017 DX:GERD (gastroesophageal reflux disease) Hyperlipidemia 01/16/2017 DX:Hyperlipidemi a Abnormal MRA, brain 01/16/2017 DX:Abnormal MRA, brain; COMMENT: Repeat 07/18/16 - Stable 2 mm vascular excrescence Lung nodule < 6cm on CT 01/16/2017 DX:Lung nodule < 6cm on CT; COMMENT: 02/06/15 CT Actinic keratoses 01/16/2017 DX:Actinic ker atoses Psoriasis 01/16/2017 DX:Psoriasis Malignant tumor of cervix (CMS/HCC) 01/16/2017 DX:Malignant tumor of cervix (HCC); COMMENT: Per transfer records Allergic rhinitis 10/16/2016 DX:Allergic rh initis Asthma 09/12/2016 DX:Asthma Obstructive sleep apnea syndrome 09/12/2016 DX:Obstructive sleep apnea syndrome Thyroid nodule 01/16/2017 DX:Thyroid nodul e; COMMENT: 12/19/16 US - small nodules bilaterally. Continued US surveillance recommended Social History Tobacco Use Types Packs/Day Years Used Date Smoking Tobacco: Former Cigarettes Smokeless Tobacco: Never Alcohol Use Standard Drinks/Week Comments No 0 (1 standard drink = 0.6 oz pur e alcohol) Comments Unknown Sex and Gender Information Value Date Recorded Sex Assigned at Not on file Legal Sex Female 7:57 PM EST Gender Identity Not on file Sexual Orientation Not on file Obstetrics History Last Filed Vital Signs Vital Sign Reading Time Taken Comments Blood Pressure - - Pulse - - Temperature - - Respiratory Rate - - Oxygen Saturation - - Inhaled Oxygen Concentration - - Weight 72.1 kg (159 lb) 07/30/2022 2:47 PM EDT Height 149.9 cm (4' 11 ) 07/30/2022 2:47 PM EDT Body Mass Index 32.11 07/30/2022 2:47 PM EDT Plan of Treatment Health Maintenance Due Date Last Done Comments Zoster Vaccines (1 of 2) 1968 RSV Immunization Patients 60+ Years Old (1 - Risk 60-74 years 1-dose series) 2009 Breast Cancer Screening 02/03/2020 02/02/2018 Cholesterol Screening (Lipid Panel) 01/12/2022 Colorectal Cancer Screening: Colonoscopy 01/12/2022 Depression Screening 01/12/2022 Falls Risk Assessment 01/12/2022 Hepatitis C Screening 01/12/2022 Medicare Annual Wellness Visit 01/12/2022 Social Influencers of Health Screening 01/12/2022 Hypertension/CHF/CAD Annual BMP Blood Test 01/24/2022 COVID-19 Vaccine ( season) 2023 11/19/2020, 04/04/2020, 03/14/2020 Influenza Vaccine (#1) 2023 1, 11/07/2019, 01/13/2019, Additional history exists DTaP,Tdap,and Td Vaccines (2 - Td or Tdap) 12/12/2027 12/11/2017 Osteoporosis Screening (Bone Density Screening) 02/03/2028 02/02/2018 Pneumococcal Vaccine: 50+ Years Completed 11/18/2016, 10/27/2015 HIB Vaccines Aged Out No longer eligi ble based on patient's age to complete this topic HPV Vaccines Aged Out No longer eligi ble based on patient's age to complete this topic Hepatitis A Vaccines Aged Out No long er eligible based on patient's age to complete this topic Hepatitis B Vaccines Aged Out No long er eligible based on patient's age to complete this topic IPV Vaccines Aged Out No longer eligi ble based on patient's age to complete this topic MMR Vaccines Aged Out No longer eligi ble based on patient's age to complete this topic Meningococcal ACWY Vaccine Aged Out N o longer eligible based on patient's age to complete this topic Meningococcal B Vacine Aged Out No lo nger eligible based on patient's age to complete this topic RSV Immunization Patients Under 20 months Aged Out No longer eligible based on patient's age to complete this topic Varicella Vaccines Aged Out No longer eligible based on patient's age to complete this topic Procedures Procedure Name Priority Date/Time Associated Diagnosis Comments [facility] DEXA AXIAL SKELETON Routine 02/02/2018 9:04 AM EST Encounter for screening for osteoporosis [facility] SCREENING DIGITAL Routine 02/02/2018 8:35 AM EST Encounter for screening mammogram for malignant neoplasm of breast from Last 3 Months or Most Recently Relevant to Health Maintenance Results * [facility] DEXA AXIAL SKELETON (02/02/2018 9:04 AM EST) Anatomical Region Laterality Modality Mammography 02/02/2018 7:11 AM EST Narrative 02/02/2018 9:[address] [facility] Diagnostic Imaging Department [address] [place] [address] Patient: ??ADALI HOLMAN I ?/Age/Sex: 1950 - 67 - F Unit#: ??[id number] ? Location/Status: ??SPDIMAM/REG CLI ? Mnemonic/Ordering Site: ??MAMDEXAAX/SPMAM Ordering Physician: ??KATERINA TOLBERT MD [facility] Dexa Axial Skeleton - 02/02/18748 HISTORY: ??The patient is a 67-year-old postmenopausal female with clinical concern for metabolic bone disease. The patient is on chronic glucocorticoid therapy. FINDINGS: ??Dual energy x-ray absorptiometry of the lumbar spine and femurs is performed. The mean bone mineral density at L1-2 is 0.957 gm/cm2 which is 82% of that of young normals and 96% of that of age matched controls. This yields a T- score of -1.7 and a Z-score of -0.4 which is diagnostic of osteopenia. The mean bone mineral density of the femurs bilaterally is 0.707 gm/cm2 which is 70% of that of young normals and 82% of that of age matched controls. ??This yields a T-score of -2.4 and a Z-score of -1.2 which is diagnostic of osteopenia. However, the T-score of the right femoral neck is -2.7 and that of the left femoral neck is -3.0 which is diagnostic of osteoporosis. IMPRESSION: 1. Osteoporosis. ??There has been an increase of 1.1% in bone mineral density in the lumbar spine since the prior examination of 01/26/2016. ??There has been a decrease of 1.5% in bone mineral density in the right femur and an increase of 2.8% in bone mineral density in the left femur. 2. FRAX analysis yields a 10-year probability of major osteoporotic fracture of 36.0% and a 10-year probability of hip fracture of 11.3%. Code 48248 Dictating Physician: ??GALINA KUO MD Electronically Signed by: ??GALINA KUO MD Dic Date/Time: ??02/02/18901 Sign date/Time: ??02/02/18903 Procedure Note Galina Kuo MD - 01/29/2022 [facility] Diagnostic Imaging Department [address] [place] [address] Patient: ADALI HOLMAN Hari /Age/Sex: 1950 - 67 - F Unit#: [id number] Location/Status: [facility] Mnemonic/Ordering Site: [facility] Ordering Physician: KATERINA TOLBERT MD [facility] Dexa Axial Skeleton - 02/02/18748 HISTORY: The patient is a 67-year-old postmenopausal female withclinical concern for metabolic bone disease. The patient is on chronicglucocorticoid therapy. FINDINGS: Dual energy x-ray absorptiometry of the lumbar spine and femursis performed. The mean bone mineral density at L1-2 is 0.957 gm/cm2 which is82% of that of young normals and 96% of that of age matched controls. This yieldsa T- score of -1.7 and a Z-score of -0.4 which is diagnostic of osteopenia. The mean bone mineral density of the femurs bilaterally is 0.707 gm/au9ozyuu is 70% of that of young normals and 82% of that of age matched controls.This yields a T-score of -2.4 and a Z-score of -1.2 which is diagnostic of osteopenia. However, the T-score of the right femoral neck is -2.7 andthat of the left femoral neck is -3.0 which is diagnostic of osteoporosis. IMPRESSION: 1. Osteoporosis. There has been an increase of 1.1% in bone mineraldensity in the lumbar spine since the prior examination of 01/26/2016. There hasbeen a decrease of 1.5% in bone mineral density in the right femur and anincrease of 2.8% in bone mineral density in the left femur. 2. FRAX analysis yields a 10-year probability of major osteoporoticfracture of 36.0% and a 10-year probability of hip fracture of 11.3%. Code 09914 Dictating Physician: GALINA KUO MD Electronically Signed by: GALINA KUO MD Dic Date/Time: 02/02/18901 Sign date/Time: 02/02/18903 us Katerina Tolbert MD IMG BI PROCEDURES Final Re sult * [facility] SCREENING DIGITAL (02/02/2018 8:35 AM EST) Anatomical Region Laterality Modality Mammography 02/02/2018 7:10 AM EST Narrative 02/02/2018 8:[address] [facility] Diagnostic Imaging Department [address] [place] [address] Patient: ??TIFFANIEJERE,ADALI I ?/Age/Sex: 1950 Unit#: ??[id number] ? Location/Status: ??SPDIMAM/REG CLI ? Mnemonic/Ordering Site: ??DIGSC/SPMAM Ordering Physician: ??JEANETTE CARRERA MD [facility] Screening Digital - 02/02/18 - 49 INDICATION: SCREENING COMPARISON: [facility] mammograms dating back to ?? 01/12/2013 FINDINGS: CC and MLO views of the breasts were obtained, using full field digital mammography with 3D tomosynthesis views in the MLO projection. Computer aided detection with the [employer] 7.2-H was employed. Benign bilateral breast biopsies most recently in 2000 reported. The breasts contain scattered fibroglandular tissues. Scar marker on the right overlying the central portion of the breast in the 12:00 axis. No suspicious masses, suspicious microcalcifications, or areas of architectural distortion are identified. ??There are no secondary signs of breast malignancy. Compared to the prior exam, no adverse interval change. IMPRESSION: ??No specific mammographic evidence of breast malignancy. Lack of a mammographic finding in the presence of a clinically suspicious palpable abnormality does not preclude the possibility of malignancy or alter the indications for biopsy. BI-RADS ??- Category 1: Negative 3341F, 7025F Annual screening mammography is recommended. Patient entered into a reminder system with a target date for the next mammogram. ([id number] / [id number]) , ??[id number] Dictating Physician: ??TONI SHRESTHA MD Electronically Signed by: ??TONI SHRESTHA MD Dic Date/Time: ??02/02/18829 Sign date/Time: ??02/02/18 0835 Procedure Note Toni Shrestha MD - 01/29/2022 [facility] Diagnostic Imaging Department [address] [place] [address] Patient: ADALI HOLMAN I /Age/Sex: 1950 - 67 - F Unit#: [id number] Location/Status: SPDIMAM/REG CLI Mnemonic/Ordering Site: [facility] Ordering Physician: JEANETTE CARRERA MD [facility] Screening Digital - 02/02/18 0749 INDICATION: SCREENING COMPARISON: [facility] mammograms dating back to 01/12/2013 FINDINGS: CC and MLO views of the breasts were obtained, using full field digital mammography with 3D tomosynthesis views in the MLO projection. Computeraided detection with the [employer] 7.2-H was employed. Benign bilateral breast biopsies most recently in 2000 reported. The breasts contain scattered fibroglandular tissues. Scar marker on theright overlying the central portion of the breast in the 12:00 axis. No suspicious masses, suspicious microcalcifications, or areas ofarchitectural distortion are identified. There are no secondary signs of breastmalignancy. Compared to the prior exam, no adverse interval change. IMPRESSION: No specific mammographic evidence of breast malignancy. Lack of a mammographic finding in the presence of a clinicallysuspicious palpable abnormality does not preclude the possibility of malignancy oralter the indications for biopsy. BI-RADS - Category 1: Negative 3341F, 7025F Annual screening mammography is recommended. Patient entered into a reminder system with a target date for the next mammogram. 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 Health Care Decision (hx) 07/02/2022 HE ALTH CARE PROXY Health Care Decision (hx) 02/25/2017 AD HERNANDEZ DIRECTIVE Health Care Decision (hx) 02/25/2017 AD HERNANDEZ DIRECTIVE Health Care Decision (hx) 12/03/2012 AD HERNANDEZ DIRECTIVE Health Care Decision (hx) 12/03/2012 AD HERNANDEZ DIRECTIVE Health Care Decision (hx) 11/26/2012 AD HERNANDEZ DIRECTIVE Health Care Decision (hx) 11/26/2012 AD HERNANDEZ DIRECTIVE Health Care Decision (hx) 07/18/2009 AD HERNANDEZ DIRECTIVE Health Care Decision (hx) 07/18/2009 AD HERNANDEZ DIRECTIVE Care Teams Radiophone Operator Relationship Specialty Start Date End Date Sachin Linares NP [address], [place] PCP - General 05/31/22
== END 2024-04-21 08:31 | disposition home or self-care (01) ==
LOC: HO.HMGCX 08:30
PROVIDERS: PCP Nurse Practitioner Family; Visit Provider Physician Assistant
DX: Z98.1 Arthrodesis status (principal)
CPT/HCPCS: 72050

== ENCOUNTER → 2024-04-21 08:35 | Outpatient (BNV) | payer MEDICARE, SELFPAY | PROVIDERS: PCP Nurse Practitioner Family; Visit Provider Radiology Diagnostic Radiology | DX: M54.2 Cervicalgia (principal) | CPT/HCPCS: 72050 ==

== ENCOUNTER 2024-04-30 08:47 | Outpatient (REF) | payer MEDICARE, SELFPAY | END 2024-04-30 08:48 | disposition home or self-care (01) | LOC: HO.HMGCLDS 08:47 | PROVIDERS: PCP Nurse Practitioner Family; Visit Provider Urology | DX: C67.9 Malignant neoplasm of bladder, unspecified (principal); N32.89 Other specified disorders of bladder | CPT/HCPCS: 88121 ==

== ENCOUNTER 2024-05-11 08:08 | Outpatient (AMB) | payer MEDICARE, SELFPAY ==
--- NOTE | 2024-05-11 08:14 | A.OFFVIS_ITS ---
Vital Signs 05/11/24 08:15 Height 4 ft 11 in Weight 160 lb 14.999 oz BMI 32.5 BP 124/80 Blood Pressure Location Lt brachial Position Sitting Pulse 71 Intake Visit Reasons: 1 yr f/up Intake Note: 1 year follow-up c/o pvc and sob Supervisor Composing Room Required: No Allergies dexlansoprazole [From DEXILANT] Allergy (Severe, Verified 03/19/24 08:57) dizziness, change in HR risedronate sodium [From ACTONEL] Allergy (Severe, Verified 03/19/24 08:57) chest discomfort Yvorwnj-FOH-EwK Reductase Inhibitor [XVZPOLV-SIN-GOH REDUCTASE INHIBITOR] Allergy (Severe, Verified 03/19/24 08:57) JOINT PAIN tramadol [TRAMADOL] Allergy (Severe, Verified 03/19/24 08:57) THROAT TIGHTNESS amlodipine [AMLODIPINE] Allergy (Intermediate, Verified 03/19/24 08:57) PALIPITATIONS Atrovent Allergy (Intermediate, Verified 03/19/24 08:57) Cough baclofen [BACLOFEN] Allergy (Intermediate, Verified 03/19/24 08:57) LETHARGY Beta-Blockers (Beta-Adrenergic Bloc Allergy (Intermediate, Verified 03/19/24 08:57) BRADYCARDIA budesonide [From SYMBICORT] Allergy (Intermediate, Verified 03/19/24 08:57) HOARSENESS Chocolate Allergy (Intermediate, Verified 03/19/24 08:57) GERD ezetimibe [From ZETIA] Allergy (Intermediate, Verified 03/19/24 08:57) JOINT PAIN, ELEVATED CPK fluticasone [From ADVAIR DISKUS] Allergy (Intermediate, Verified 03/19/24 08:57) HTN glucosamine Allergy (Intermediate, Verified 03/19/24 08:57) LE edema ibandronate sodium [From BONIVA] Allergy (Intermediate, Verified 03/19/24 08:57) CHEST PAIN latex [LATEX] Allergy (Intermediate, Verified 03/19/24 08:57) RASH-SENSITIVITY lisinopril [LISINOPRIL] Allergy (Intermediate, Verified 03/19/24 08:57) COUGH, really bad cough meloxicam [From MOBIC] Allergy (Intermediate, Verified 03/19/24 08:57) GI UPSET mometasone furoate [From DULERA] Allergy (Intermediate, Verified 03/19/24 08:57) COUGH niacin Allergy (Intermediate, Verified 03/19/24 08:57) Flushing Penicillins [PENICILLINS] Allergy (Intermediate, Verified 03/19/24 08:57) RASH pregabalin [From LYRICA] Allergy (Intermediate, Verified 03/19/24 08:57) GERD flare up raloxifene [From EVISTA] Allergy (Intermediate, Verified 03/19/24 08:57) GERD rofecoxib [From Vioxx] Allergy (Intermediate, Verified 03/19/24 08:57) ankle swelling salmeterol [From ADVAIR DISKUS] Allergy (Intermediate, Verified 03/19/24 08:57) HTN scallops [SCALLOPS] Allergy (Intermediate, Verified 03/19/24 08:57) NAUSEA & VOMITING sertraline [From ZOLOFT] Allergy (Intermediate, Verified 03/19/24 08:57) SKIN CRAWLING spironolactone [SPIRONOLACTONE] Allergy (Intermediate, Verified 03/19/24 08:57) RASH, ?? psoriasis strawberry [STRAWBERRY] Allergy (Intermediate, Verified 03/19/24 08:57) ITCHING tiotropium [From SPIRIVA WITH HANDIHALER] Allergy (Intermediate, Verified 03/19/24 08:57) RAW THROAT, pharyngitis verapamil [VERAPAMIL] Allergy (Intermediate, Verified 03/19/24 08:57) IRREGULAR HEARTBEAT esomeprazole [Nexium] Allergy (Mild, Verified 03/19/24 08:57) did not resolve GERD naproxen [From ALEVE] Allergy (Mild, Verified 03/19/24 08:57) FLUSH omeprazole Allergy (Mild, Verified 03/19/24 08:57) did not resolve GERD tacrolimus Allergy (Mild, Verified 03/19/24 08:57) Rash adhesive [ADHESIVE] Allergy (Unknown, Verified 03/19/24 08:57) RASH doxycycline [DOXYCYCLINE] Allergy (Unknown, Verified 03/19/24 08:57) SEVERE NOYOLA, HEARTBURN, joint pain gabapentin [From NEURONTIN] Allergy (Unknown, Verified 03/19/24 08:57) leg swelling, SOB metoclopramide [From REGLAN] Allergy (Unknown, Verified 03/19/24 08:57) LETHARGY monosodium glutamate [MSG] Allergy (Unknown, Verified 03/19/24 08:57) HEADACHE, increased HR lifitegrast [From Xiidra] Allergy (Verified 03/19/24 08:57) blurred vision, headache, eye swelling metoprolol Adverse Reaction (Severe, Verified 03/19/24 08:57) Severe bradycardia alendronate sodium [From Fosamax] Adverse Reaction (Intermediate, Verified 03/19/24 08:57) Joint Pain amitriptyline Adverse Reaction (Intermediate, Verified 03/19/24 08:57) Agitated cyclosporine [From Cequa] Adverse Reaction (Intermediate, Verified 03/19/24 08:57) Eye Swelling fluticasone furoate [From Trelegy Ellipta] Adverse Reaction (Intermediate, Verified 03/19/24 08:57) asthma exacerbation perfluorohexyloctane [From Miebo] Adverse Reaction (Intermediate, Verified 03/19/24 08:57) Eye Swelling tobramycin [From Tobrex] Adverse Reaction (Intermediate, Verified 03/19/24 08:57) Eye Swelling umeclidinium [From Trelegy Ellipta] Adverse Reaction (Intermediate, Verified 03/19/24 08:57) asthma exacerbation vilanterol [From Trelegy Ellipta] Adverse Reaction (Intermediate, Verified 03/19/24 08:57) asthma exacerbation azelastine Adverse Reaction (Mild, Verified 03/19/24 08:57) Gastrointestinal Upset hi Adverse Reaction (Intermediate, Uncoded 03/19/24 08:57) Itchy Eyes Sulindac Adverse Reaction (Intermediate, Uncoded 03/19/24 08:57) Nausea, pain Medication List - Last Reconciled 05/11/24 by Maikel Yadav MD aspirin (Adult Aspirin Regimen) 81 mg PO DAILY beclomethasone dipropionate 80 mcg/actuation (Qvar RediHaler) 1 inh inhalation BID 30 days betamethasone dipropionate 0.05% 1 appl topical DIRECTED Bifidobacterium infantis (Align (B.infantis)) 4 mg PO DAILY cetirizine (Zyrtec) 10 mg PO DAILY PRN cholecalciferol (vitamin D3) 25 mcg PO DAILY 30 days cyclosporine 0.05% (Restasis) 1 drp ophthalmic (eye) Q12H denosumab (Prolia) 60 mg subcut Q5HKAVTD dextran 70-hypromellose (PF) 0.1-0.3 % (Artificial Tears (PF)) 1 drp ophthalmic (eye) BEDTIME docusate sodium (Colace) 100 mg PO BID evolocumab (Repatha SureClick) 140 mg subcut Q2W flunisolide 2 sprays intranasal BID PRN hydrochlorothiazide 12.5 mg PO DAILY 90 days ibuprofen (IBU) 600 mg PO Q8H PRN 90 days levalbuterol tartrate 45 mcg/actuation 2 puffs inhalation Q4H PRN lorazepam (Ativan) 0.5 mg PO DAILY PRN losartan 50 mg PO DAILY 90 days magnesium oxide 500 mg PO DAILY montelukast 10 mg PO DAILY 90 days pantoprazole 40 mg PO BID prednisolone acetate 1% 1 drp ophthalmic (eye) QID sucralfate 1 g PO BID 90 days HPI Comments Details: Adali comes for follow-up after 1 year. Over the last month she has been noticing increasing exertional shortness of breath when she climbs a flight of stairs. However she was also seen because of her neck issues she has not been exercising. She denies any orthopnea, PND, leg edema, abdominal distension. Denies any exertional chest pain. She also has been noticing increasing symptoms of palpitation about twice a week where she suddenly feels rapid heartbeat which then subsides. These are not similar to her PVCs. Has notice s ome increased stress related to of the pain. She denies any lightheadedness, syncope. Takes all her medications. FORMERLY [facility], [facility] Medical History Esophageal spasm Hx of carcinoma of bladder Bladder carcinoma History of trigger finger Cervical radiculitis Chronic sinusitis GERD (gastroesophageal reflux disease) FRANCESCA (obstructive sleep apnea) CAD (coronary artery disease) History of primary hyperparathyroidism Non-toxic multinodular goiter Osteoporosis Pulmonary nodules H/O gastroesophageal reflux (GERD) HLD (hyperlipidemia) HTN (hypertension) COPD (chronic obstructive pulmonary disease) Asthma History of aneurysm Migraine Depression PTSD (post-traumatic stress disorder) History of panic attacks Anxiety Edema History of deviated nasal septum Medial epicondylitis of left elbow Fusion of spine, cervical region Surgical History History of carpal tunnel release Hx of cystoscopy H/O cervical spine surgery Hx of hand surgery Hx of right inguinal hernia repair History of hernia repair Hx of colonoscopy History of esophagogastroduodenoscopy (EGD) S/P repair of paraesophageal hernia H/O decompression of ulnar nerve Status post ablation of incompetent vein using laser History of cardiac catheterization History of eyelid surgery History of appendectomy History of parathyroidectomy History of cholecystectomy Hx of cataract surgery Hx of shoulder surgery S/P cubital tunnel release S/P arthroscopic surgery of right knee History of lumpectomy of both breasts History of hysterectomy Hx of adenoidectomy Hx of tonsillectomy Hx of eye surgery Family History Father Liver cancer Psoriasis Cancer Mental health disorder Mother Cervical cancer Ovarian cancer Heart attack Substance use disorder Social History Household Members: Children and None Housing: House Alcohol intake: current Alcohol intake frequency: does not drink Patient Tobacco Use Status: Former Tobacco user Tobacco use type: Cigarette e-Cigarette/Vaping Use: Never Used Second Hand Smoke Exposure: No service: No Current occupational status: employed 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, 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 Cognitive needs: No Hearing needs: No Vision needs: No Review of Systems Const Denies chills, Denies fatigue, Denies fever(s), Denies frequent falls, Denies weakness, Denies weight gain and Denies weight loss ENT Denies dizziness Card Denies chest pain, Denies leg edema, Denies lightheadedness, Denies palpitations, Denies dyspnea, Denies dyspnea on exertion, Denies orthopnea and Denies other (loss of consciousness) Resp Denies cough, Denies dyspnea and Denies dyspnea on exertion GI Denies hematochezia and Denies change in stool character Musc Denies abnormal gait, Denies muscle weakness, Denies numbness, Denies radiating pain into limb and Denies tingling Neuro Denies abnormal gait, Denies dizziness, Denies frequent falls, Denies numbness, Denies tingling and Denies weakness Endo Denies fatigue and Denies palpitations Physical Exam Vital Signs: Last Vital Signs Pulse 71 05/11/24 08:15 BP 124/80 05/11/24 08:15 BMI result Body Mass Index 32.5 Const General: cooperative, healthy appearing, comfortable and no acute distress Neck Neck: Yes normal visual inspection and Yes no JVD Resp Effort & Inspection: normal respiratory effort Auscultation: clear to auscultation bilaterally, no crackles, no rales, no rhonchi and no wheezes Cardio Jugular venous distension: no JVD Rate: regular rate Rhythm: regular rhythm Heart sounds: S1 normal heart sound present, S2 normal heart sound present, no gallops, no murmurs and no rubs Peripheral pulses: Peripheral pulses 2+ throughout GI Inspection: Yes normal to inspection Extrem General: Yes normal to inspection and No no pedal edema Psych Appearance: grossly normal Mental Status: mental status grossly normal Speech and movement: Normal speech and movement present Office Procedures EKG Details: EKG shows normal sinus rhythm with poor R-wave progression most likely lead placement with low-voltage QRS in lateral precordial leads again most likely due to lead placement [id number], Complete Assessment & Plan Assessment & Plan (1) Short of breath on exertion: Code(s): R06.02 - Shortness of breath Category: Medical Plan: Exertional shortness of breath in this elderly woman with underlying known prior atherosclerosis. Most likely related to deconditioning although underlying cardiac issues need to be ruled out especially to evaluate for LV systolic and diastolic function and valvular abnormality by echocardiogram. Also suggest a myocardial perfusion imaging to rule out myocardial ischemia. Continue aggressi ve risk factor modification. Low-dose aspirin therapy for life. Continue aggressive blood pressure control which is currently well optimized on current therapy. Importance of good blood pressure control was discussed. Low-salt diet was discussed. Stress mitigation strategies were discussed. Continue aggressive lipid management, LDL is well optimized on current PCSK9 inhibitor therapy. She has not been able to tolerate statin therapy in the past. (2) Palpitations: Code(s): R00.2 - Palpitations Category: Medical Plan: Palpitations with recent increasing burden most likely related to stress of the cervical pain. At this point time would suggest a Holter monitor to rule out any suggestion of atrial fibrillation which is likely in her age group. Most likely related to PVCs. Stress mitigation strategies was discussed. Avoidance of stimulants was discussed. Would avoid any pharmacotherapy till we have further workup. Will follow up in the clinic in 1 year's time, sooner p.r.n.. Thank you for allowing me to partake in her care Orders: Orders ECG 7 day holter monitor Today R00.2 - Palpitations CA lexiscan stress w juan jose Today R06.02 - Shortness of breath CA echo transthoracic complete Today R06.02 - Shortness of breath Coding Level of Care Code Est Pt Level 4 (34948) Complex EM visit Add On G2211 Diagnoses Short of breath on exertion R06.02 Palpitations R00.2 CPT Codes EKG - CPT: 21650-[id number], Complete ([id number])
[2024-05-11 08:15] VITALS: BP 124/80; PULSE 71; BMI 32.5
--- OUTSIDE RECORDS SUMMARY | 2024-05-11 08:24 | XMS_ITS | Data Portability ---
Author Organization [place] - [facility], Allergy Address [address] [place] [address] Care Team Providers Care Weight Count Operator Name Role Phone BEBE VELASCO Primary Care Provider [phone] Assessment Encounter Date Assessment Date Assessment LastModified [...] Address Organization Details Recorded Time Bilateral tinnitus 07428728205 02 Active 2018 Tinnitus, bilateral ; Note: Date Diagnosed : 09/16/2018 9:36 AM (H93.13) Not Available [facility] 4 03:05:03 Sensorine ural hearing loss of bilateral ears 943854235 Active 2018 Sensorine ural hearing loss, bilateral ; Note: Date Diagnosed : 09/16/2018 9:36 AM (H90.3) Not Available [facility] 4 03:05:03 Migraine with aura 2356214 Active 2018 Migraine with aura, not intractab le, without status migrainos us; Note: Date Diagnosed : 09/16/2018 9:50 AM (G43.109) Not Available [facility] 4 03:05:05 Dizziness and giddiness 812478273 Active 2018 Dizziness and giddiness ; Note: Date Diagnosed : 09/16/2018 9:36 AM (R42) Not Available [facility] 4 03:05:03 Gastroeso phageal reflux disease without esophagit is 513640569 Active 2018 Gastro-es ophageal reflux disease without esophagit is; Note: Date Diagnosed : 09/16/2018 9:57 AM (K21.9) Not Available [facility] 4 03:05:03 Headache 19630609 Active 2018 Facial pain NOS; Note: Date Diagnosed : 09/16/2018 9:50 AM (R51) Not Available [facility] 4 03:05:02 Recurrent acute sinusitis 995916634 Active 2024 HARPREET HALEY MD [address] [place] [address], [place], [address] , [place] - [facility] 5 16:29:55 Allergic rhinitis 61364861 Active 2024 HARPREET HALEY MD [address] [place] [address], [place], [address] , [place] - [facility] 5 16:30:02 Problem Notes None recorded. Procedures Surgical History Date Name Laterality Status Provider Name and Address Organization Details Recorded Time 03/12/2024 Comp Audio with Tymps (62084 & 58261) completed ADALI ASKEW MA, CCC-A [address] [address], [place], [address], [facility] 03/12/2024 16:00:59 03/12/2024 NasalEndosc opy_DP completed HARPREET HALEY MD [address] [place] [address], [phone], [facility] 03/12/2024 16:29:37 Imaging Results Imaging Date Name Status LastModified by Organiz ation Details LastModified Time 03/15/2024 audiogram completed BARCODE Information no t available 03/15/2024 13:28:12 Procedure Notes None recorded. Medical Equipment None Reported. Allergies Allergen ID Allergen Name Allergen Category Reaction Reaction Severity Criticality Documentation Date Start Date Code Code System Note Provider Name and Address Organization Details Recorded Time 753110 tacrolimu s medicatio n Not available Not available Not available 03/12/2024 64369 RxNorm Zoraida Potvin null, [place] - [facility] 15:11:51 332308 Nexletol medicatio n Not available Not available Not available 03/12/2024 59646 09 RxNorm Zoraida Potvin null, [place] [facility] 15:12:16 095769 Miebo medicatio n Not available Not available Not available 03/12/2024 62438 52 RxNorm Zoraida Potvin null, [place] [facility] 15:12:27 274075 sulindac medicatio n Not available Not available Not available 03/12/2024 29532 RxNorm Zoraida Potvin null, [place] [facility] 15:12:36 223451 Fosamax medicatio n Not available Not available Not available 03/12/2024 20778 5 RxNorm Zoraida Potvin null, [place] - [facility] 5 15:12:46 641120 latex environme nt,medica tion Not available Not available Not available 03/12/2024 06998 91 RxNorm Zoraida Potvin franko, [place] - [facility] 15:13:27 406289 Dexilant medicatio n Not available Not available Not available 03/12/2024 85113 1 RxNorm Zoraida Marsh franko [place] - [facility] 15:13:54 548142 doxycycli ne Not available Not available Not available Not available 03/12/2024 3640 RxNorm Zoraida Marsh franko, [facility] 15:14:23 Medications Name Sig Start Date [...] Smoking Status Former Smoker HARPREET HALEY MD [address] [place] [address], [place], [address], [facility] [...] Disorder N Anesthesia Complications N Heart Attack (ND) N Other Skin Condition N Diabetes N [...] SNOMED-CT Code Diagnosis ICD10 Code Diagnosis Note [id number] HARPREET HALEY MD [facility] [address] [phone] 03/12/2024 14:19:20 03/12/2024 16:35:50 Sensorineural hearing loss of bilateral ears [id number] H90.3 Audiologic al evaluation results: Right ear: [...] maintain a hermetic seal}} Recurrent acute sinusitis 160446869 J01.91 Allergic rhinitis 011820 04 J30.9 Health Concerns Section Related Observation [...] her sinus congestion symptoms HARPREET HALEY MD [address] [place] [address],[address], [address], [facility] - [facility] 03/12/2024 16:35:50 OBGyn Episode No OBEpisode recorded.
--- OUTSIDE RECORDS SUMMARY | 2024-05-11 08:25 | XMS_ITS | Patient Health Record ---
Author Organization [facility] Address [address] [place] [address] Care Team Providers Care Stone Sandblaster Name Role Phone BEBE VELASCO M.D Primary Care Provider LIZANDRO Bean Unavailable [phone] Allergies Allergen (clinical drug ingredient) Drug/Non Drug Allergy documented on EMR Reaction Allergy Type Onset Date Status 12 Hour Nasal [place] Unknown Drug Allergy Active risedronate Actonel Unknown [...] Status Risk Notes Problem Postmenopausal atrophic vaginitis (70914092) Postmenopausal atrophic vaginitis (N95.2) Active confirmed Problem Age-related osteoporosis (813855067) Age-related osteoporosis without current pathological fracture (M81.0) Active confirmed Problem Essential hypertension (02647219) Essential (primary) hypertension (I10) Active confirmed Problem Hyperlipidemia (66806654) Hyperlipidemia, unspecified (E78.5) Active confirmed Problem Uncomplicated asthma (disorder) (057053614) Unspecified asthma, uncomplicated (J45.909) Active confirmed Problem Gastro-esophageal reflux disease without esophagitis (005769253) Gastro-esophageal reflux disease without esophagitis (K21.9) Active confirmed Plan Of Treatment No Information Insurance Providers Payer Name Payer Address Payer Phone Subscriber Number Group Number Insured Name Patient Relationship to Insured Coverage Start Date Coverage End Date MEDICARE [address] [facility], [place] [id number] [phone] [id number] JORGITO MANCILLA Self - patient is the [...]
--- OUTSIDE RECORDS SUMMARY | 2024-05-11 08:25 | XMS_ITS | Clinical Summary ---
Author Organization [address] [facility] Address [address] [place] [address] Phone Care Team Providers Care Crossword Puzzle Maker Name Role Phone Sachin Linares NP Primary Care Provider Allergies Active Allergy Reactions Criticality Noted Date Comments Amlodipine 09/12/2016 Baclofen 09/12/2016 Beta-Blockers (Beta-Adrenerg ic Blocking Agts) 09/12/2016 Budesonide-Formoterol 09/12/2016 Dexlansoprazole 09/12/2016 Doxycycline 09/12/2016 Ezetimibe 09/12/2016 Fluticasone Propion-Salmeterol 09/12 Gabapentin 09/12/2016 Ibandronic Acid 09/12/2016 Latex 09/12/2016 Lisinopril 09/12/2016 Metoclopramide 09/12/2016 Metoprolol 09/12/2016 Mometasone 09/12/2016 Other 09/12/2016 Penicillins 09/12/2016 Pregabalin 09/12/2016 Rofecoxib 09/12/2016 Rosuvastatin Calcium 09/12/2016 Spironolactone 09/12/2016 Tiotropium 09/12/2016 Tramadol 09/12/2016 Verapamil 09/12/2016 Medications Restasis 0.05 % ophthalmic emulsion INSTILL 1 DROP IN BOTH EYE TWICE A DAY 4 Active tacrolimus (PROTOPIC) 0.1 % ointment APPLY TWICE DAILY TO EYELID DERMATITIS NEEDED 4 Active sucralfate (CARAFATE) 1 gram tablet take 1 tablet by mouth 2 times a day for 90 days Active pantoprazole (PROTONIX) 40 mg EC tablet Take 1 tablet (40 mg total) by mouth 2 (two) times a day. 5 Active montelukast (SINGULAIR) 10 mg tablet Take 1 tablet (10 mg total) by mouth 1 (one) time each day. Active losartan (COZAAR) 50 mg tablet 5 Active LORazepam (ATIVAN) 0.5 mg tablet take 1 tablet orally daily as needed for anxiety Active ibuprofen (ADVIL,MOTRIN) 600 mg tablet TAKE 1 TABLET EVERY 8 HOURSAS NEEDED FOR PAIN. TAKE ITWITH FOOD AND FULL GLASS OFWATER Active flunisolide (NASALIDE) 25 mcg (0.025 %) spray,non-aeros ol USE 2 SPRAYS NASALLY TWICE DAILY FOR NASAL CONGESTION/RHIN ORRHEA 4 Active Qvar RediHaler 80 mcg/actuation HFA aerosol breath activated inhaler INHALE 1 PUFF TWICE DAILY FOR 30 DAYS Active aspirin 81 mg chewable tablet Chew 1 tablet (81 mg total) 1 (one) time each day. Active cetirizine (ZyrTEC) 10 mg tablet Take 1 tablet (10 mg total) by mouth 1 (one) time each day. Active cyclobenzaprine (FLEXERIL) 5 mg tablet Take 1 tablet (5 mg total) by mouth 3 (three) times a day if needed for muscle spasms for up to 15 days. 30 tablet 5 05/09/19 25 Active Problems Problem Noted Date Diagnosed Date Cervical spondylosis 02/27/2021 Overview (04/28/2024): Last Assessment & Plan: Ms. Holman is here for 1 year follow-up since a C4-5 ACDF with plating on 07/02/2022. She has had complete resolution of the dizziness and feels good from that standpoint. 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 It can recur if she leans her neck back in extension. She is unable to hold a pen properly or write because of this. She has a remote history of a right medial epicondyle debridement for inflammation but as far as she knows, there was no ulnar nerve release. On exam, her incision is well-healed, cervical rotation is 60 degrees to the left, at least 45 degrees to the right. 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 Gait is steady. Review of the AP/lateral and flexion/extension x-rays from today shows near complete fusion of the graft at C4-5 with an intact plate and screws. Her prior fusion from C5-C7 is solid at C5-6 while there is likely a pseudoarthrosis at C6-7 however, the hardware there is tact and there is no instability. I think it unlikely that the symptoms in her right fifth digit are due to a radiculopathy given that there is no movement/change in foraminal height and extension due to her prior surgery. It is possible that this is an ulnar neuropathy and not related to her head movement. She has had release of other trigger fingers in that hand and has an appointment to see [facility] on July 14. She is welcome to see us in the future if there are any new concerns. Assessment & Plan (04/28/2024 11:43 AM EDT): Who describes left-sided upper posterior neck pain with some radiation to the skull. I was not able to reproduce it by palpating the left skull base. She is neurologically intact. X-rays of the cervical spine from [facility] dated 2024 show good position of her C4-5 and C5-C6-C7 plates but there does not appear to be robust bone growth across the disc spaces. I will discuss with Dr. Rodriguez and likely order a bone growth stimulator. Meantime, she is going to get in contact with [facility]. We talked about acupuncture and yoga as reasonable conservative modalities. She has all the physical therapy equipment at home and says that her niece is a physical therapist and they work together sometimes. Is using her [employer] TENS unit. She is using Biofreeze and taking ibuprofen when necessary. I told her we would be in touch regarding her obtaining a bone growth stimulator. Hypertension 01/16/2017 Hyperlipidemia 01/16/2017 GERD (gastroesophageal reflux disease) 7 Anxiety 01/16/2017 Asthma 09/12/2016 Encounters Date Type Department Care Team Description 04/28/2024 11:00 AM EDT Office Visit [address] [id number] Chuck Atkins PA Cervical spondylosis (Primary Dx) 04/21/[address] [phone] Jenise Lewis MA Results 04/19/[address] [phone] Corrine Galvan MA from Last 3 Months Immunizations Name Administration Dates Next Due Influenza trivalent, 0.5mL ( Fluad) 65yo and older 12/09/2023,11/10/2020,01/13/2019,12/11,11/18/2016,12/18/2015,12/30/2014 Influenza trivalent, with pr eservative (Fluzone; Afluria) 6mo and older 11/07/2019 Pneumococcal conjugate 13 va lent (Prevnar 13, PCV13) 2mo and older 10/27/2015 Pneumococcal conjugate 20 va lent (Prevnar 20, PCV 20) 2mo and older 10/30/2022 Pneumococcal polysaccharide 23 valent (Pneumovax 23) 2yo and older 11/18/2016 RSV, bivalent, protein subun it RSVpreF, 0.5mL, Preservative Free (Arexvy) 60yo and older 11/01/2022 Tdap Tetanus diptheria acell ular pertussis (Boostrix; Adacel) 7yo and older 12/11/2017 Surgical History Surgery Date Site/Laterality Comments ELBOW SURGERY 08/2007 PROCEDURE: HISTORICAL ELBOW SURGERY; COMMENT: Cubital tunnel release NECK SURGERY 07/2009 PROCEDURE: HISTORICAL NECK SURGERY; COMMENT: Left C6-7 decompression and foraminotomy, Dr. Rodriguez HYSTERECTOMY 1978 PROCEDURE: HISTORICAL HYSTERECTOMY OTHER SURGICAL HISTORY PROCEDURE: ---- OTHER ----; COMMENT: nasal septoplasty and turbinoplasty NECK SURGERY 07/02/2022 PROCEDURE: HISTORICAL NECK SURGERY; COMMENT: C4-5 ACDF, Dr. Rodriguez NECK SURGERY 11/26/2012 PROCEDURE: HISTORICAL NECK SURGERY; COMMENT: C5-6, C6-7 Dr. Michael BEJARANO Medical History Medical History Date Comments Anxiety [...] - - Weight 72.1 kg (159 lb) 04/28/2024 11:25 AM EDT Height 149.9 cm (4' 11 ) 04/28/2024 11:25 AM EDT Body Mass Index 32.11 04/28/2024 11:25 AM EDT Plan of Treatment Health Maintenance Due Date Last Done Comments Zoster Vaccines (1 of 2) 04/25/1999 Cholesterol Screening (Lipid Panel) 01/12/2022 Colorectal Cancer Screening: Colonoscopy 01/12/2022 Depression Screening 01/12/2022 Falls Risk Assessment 01/12/2022 Hepatitis C Screening 01/12/2022 Medicare Annual Wellness Visit 01/12/2022 Social Influencers of Health Screening 01/12/2022 Hypertension/CHF/CAD Annual BMP Blood Test 01/24/2022 COVID-19 Vaccine ( season) 2023 06/29/2021, 11/19/2020, 04/04/2020, Additional history exists DTaP,Tdap,and Td Vaccines (2 - Td or Tdap) 12/12/2027 12/11/2017 Osteoporosis Screening (Bone Density Screening) 02/03/2028 02/02/2018 Breast Cancer Screening Discontinued 02/02/2018 Pneumococcal Vaccine: 50+ Years Completed 10/30/2022, 11/18/2016, 10/27/2015 RSV Immunization Patients 60+ Years Old Completed 11/01/2022 Influenza Vaccine Completed 12/09/2023, , 11/07/2019, Additional history exists HIB Vaccines Aged Out No longer eligi [...] Procedure Name Priority Date/Time Associated Diagnosis Comments DIMAS DEXA AXIAL SKELETON Routine 02/02/2018 9:04 AM EST Encounter for screening for osteoporosis DIMAS SCREENING DIGITAL Routine 02/02/2018 8:35 AM EST Encounter for screening mammogram for malignant neoplasm of breast from Last 3 Months or Most Recently Relevant to Health Maintenance Results * DIMAS DEXA AXIAL SKELETON (02/02/2018 9:04 AM EST) Anatomical Region Laterality Modality Mammography 02/02/2018 7:11 AM EST Narrative 02/02/2018 9:04 AM EST [facility] Diagnostic Imaging Department [address] [place] [address] Patient: ??ADALI HOLMAN I ?/Age/Sex: 1950 - 67 - F Unit#: ??[id number] ? Location/Status: ??SPDIMAM/REG CLI ? Mnemonic/Ordering Site: ??MAMDEXAAX/SPMAM Ordering Physician: ??KATERINA TOLBERT MD [facility] Dexa Axial Skeleton - 02/02/18748 [...] probability of hip fracture of 11.3%. Code 71098 Dictating Physician: ??GALINA KUO MD Electronically Signed by: ??GALINA KUO MD Dic Date/Time: ??02/02/18901 Sign date/Time: ??02/02/18 09 Procedure Note Galina Kuo MD - 01/29/2022 [facility] Diagnostic Imaging Department [address] [place] [address] Patient: ADALI HOLMAN Hari /Age/Sex: 1950 - 67 - F Unit#: [id number] Location/Status: [facility] Mnemonic/Ordering Site: [facility] Ordering Physician: KATERINA TOLBERT MD [facility] Dexa Axial Skeleton - 02/02/1875 HISTORY: The patient is a 67-year-old postmenopausal [...] density of the femurs bilaterally is 0.707 gm/vo1wcswe is 70% of that of young normals [...] probability of hip fracture of 11.3%. Code 16907 Dictating Physician: GALINA KUO MD Electronically Signed by: GALINA KUO MD Dic Date/Time: 02/02/18901 Sign date/Time: 02/02/18903 us Katerina Tolbert MD IMG BI PROCEDURES Final Re sult * DIMAS SCREENING DIGITAL (02/02/2018 8:35 AM EST) Anatomical Region Laterality Modality Mammography 02/02/2018 7:10 AM EST Narrative 02/02/2018 8:35 AM EST [facility] Diagnostic Imaging Department [address] [place] [id number] Patient: ??ADALI HOLMAN I ?/Age/Sex: 1950 67 - F Unit#: ??[id number] ? Location/Status: ??SPDIMAM/REG CLI ? Mnemonic/Ordering Site: ??DIGSC/SPMAM Ordering Physician: ??JEANETTE CARRERA MD [facility] Screening Digital - 02/02/1849 INDICATION: SCREENING COMPARISON: [facility] mammograms dating back to ?? 01/12/2013 FINDINGS: CC and MLO views of the breasts were obtained, using full field digital mammography with 3D tomosynthesis views in the MLO projection. Computer aided detection with the Paladion 7.2-H was employed. Benign bilateral breast biopsies [...] date for the next mammogram. ([id number] / [id number]) , ??[id number] Dictating Physician: ??TONI SHRESTHA MD Electronically Signed by: ??TONI SHRESTHA MD Dic Date/Time: ??02/02/18829 Sign date/Time: ??02/02/18834 Procedure Note Toni Shrestha MD - 01/29/2022 [facility] Diagnostic Imaging Department [address] [place], [place] [id number] Patient: ADALI HOLMAN Hari /Age/Sex: 1950 - 67 - F Unit#: [id number] Location/Status: SPDIMAM/REG CLI Mnemonic/Ordering Site: [facility] Ordering Physician: JEANETTE CARRERA MD [facility]as Screening Digital - 02/02/18 - 0749 INDICATION: SCREENING COMPARISON: [facility] mammograms dating back to 01/12/2013 FINDINGS: CC and MLO views of the breasts were obtained, using full field digital mammography with 3D tomosynthesis views in the MLO projection. Computeraided detection with the Paladion 7.2-H was employed. Benign bilateral breast biopsies [...] a target date for the next mammogram. 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
== END 2024-05-11 08:53 | disposition home or self-care (01) ==
LOC: HO.HCS 08:09
PROVIDERS: PCP Nurse Practitioner Family; Visit Provider Internal Medicine Cardiovascular Disease
DX: R06.02 Shortness of breath (principal); R00.2 Palpitations
CPT/HCPCS: 93010; 99214; G2211

== ENCOUNTER → 2024-05-11 08:08 | Outpatient (BNVA) | payer MEDICARE, SELFPAY | PROVIDERS: PCP Nurse Practitioner Family; Visit Provider Internal Medicine Cardiovascular Disease | DX: R06.02 Shortness of breath (principal); R00.2 Palpitations | CPT/HCPCS: 93005; 99212 ==

== ENCOUNTER 2024-05-13 08:44 | Outpatient (AMB) | payer MEDICARE, SELFPAY ==
--- NOTE | 2024-05-13 08:45 | MHC.OFFVIS ---
Vital Signs 05/13/24 08:46 Height 4 ft 11 in Weight 163 lb 6 oz BMI 33.0 BP 176/77 H Blood Pressure Location Lt brachial Position Sitting Pulse 92 Pulse Source Pulse Oximeter Pulse Oximetry (%) 99 Oxygen Delivery Method Room Air Intake Visit Reasons: Cervical Radiculopathy Allergies dexlansoprazole [From DEXILANT] Allergy (Severe, Verified 05/13/24 08:46) dizziness, change in HR risedronate sodium [From ACTONEL] Allergy (Severe, Verified 05/13/24 08:46) chest discomfort Bjnttxf-DGT-WqV Reductase Inhibitor [HDNFKHK-YPU-HNA REDUCTASE INHIBITOR] Allergy (Severe, Verified 05/13/24 08:46) JOINT PAIN tramadol [TRAMADOL] Allergy (Severe, Verified 05/13/24 08:46) THROAT TIGHTNESS amlodipine [AMLODIPINE] Allergy (Intermediate, Verified 05/13/24 08:46) PALIPITATIONS Atrovent Allergy (Intermediate, Verified 05/13/24 08:46) Cough baclofen [BACLOFEN] Allergy (Intermediate, Verified 05/13/24 08:46) LETHARGY Beta-Blockers (Beta-Adrenergic Bloc Allergy (Intermediate, Verified 05/13/24 08:46) BRADYCARDIA budesonide [From SYMBICORT] Allergy (Intermediate, Verified 05/13/24 08:46) HOARSENESS Chocolate Allergy (Intermediate, Verified 05/13/24 08:46) GERD ezetimibe [From ZETIA] Allergy (Intermediate, Verified 05/13/24 08:46) JOINT PAIN, ELEVATED CPK fluticasone [From ADVAIR DISKUS] Allergy (Intermediate, Verified 05/13/24 08:46) HTN glucosamine Allergy (Intermediate, Verified 05/13/24 08:46) LE edema ibandronate sodium [From BONIVA] Allergy (Intermediate, Verified 05/13/24 08:46) CHEST PAIN latex [LATEX] Allergy (Intermediate, Verified 05/13/24 08:46) RASH-SENSITIVITY lisinopril [LISINOPRIL] Allergy (Intermediate, Verified 05/13/24 08:46) COUGH, really bad cough meloxicam [From MOBIC] Allergy (Intermediate, Verified 05/13/24 08:46) GI UPSET mometasone furoate [From DULERA] Allergy (Intermediate, Verified 05/13/24 08:46) COUGH niacin Allergy (Intermediate, Verified 05/13/24 08:46) Flushing Penicillins [PENICILLINS] Allergy (Intermediate, Verified 05/13/24 08:46) RASH pregabalin [From LYRICA] Allergy (Intermediate, Verified 05/13/24 08:46) GERD flare up raloxifene [From EVISTA] Allergy (Intermediate, Verified 05/13/24 08:46) GERD rofecoxib [From Vioxx] Allergy (Intermediate, Verified 05/13/24 08:46) ankle swelling salmeterol [From ADVAIR DISKUS] Allergy (Intermediate, Verified 05/13/24 08:46) HTN scallops [SCALLOPS] Allergy (Intermediate, Verified 05/13/24 08:46) NAUSEA & VOMITING sertraline [From ZOLOFT] Allergy (Intermediate, Verified 05/13/24 08:46) SKIN CRAWLING spironolactone [SPIRONOLACTONE] Allergy (Intermediate, Verified 05/13/24 08:46) RASH, ?? psoriasis strawberry [STRAWBERRY] Allergy (Intermediate, Verified 05/13/24 08:46) ITCHING tiotropium [From SPIRIVA WITH HANDIHALER] Allergy (Intermediate, Verified 05/13/24 08:46) RAW THROAT, pharyngitis verapamil [VERAPAMIL] Allergy (Intermediate, Verified 05/13/24 08:46) IRREGULAR HEARTBEAT esomeprazole [Nexium] Allergy (Mild, Verified 05/13/24 08:46) did not resolve GERD naproxen [From ALEVE] Allergy (Mild, Verified 05/13/24 08:46) FLUSH omeprazole Allergy (Mild, Verified 05/13/24 08:46) did not resolve GERD tacrolimus Allergy (Mild, Verified 05/13/24 08:46) Rash adhesive [ADHESIVE] Allergy (Unknown, Verified 05/13/24 08:46) RASH doxycycline [DOXYCYCLINE] Allergy (Unknown, Verified 05/13/24 08:46) SEVERE NOYOLA, HEARTBURN, joint pain gabapentin [From NEURONTIN] Allergy (Unknown, Verified 05/13/24 08:46) leg swelling, SOB metoclopramide [From REGLAN] Allergy (Unknown, Verified 05/13/24 08:46) LETHARGY monosodium glutamate [MSG] Allergy (Unknown, Verified 05/13/24 08:46) HEADACHE, increased HR lifitegrast [From Xiidra] Allergy (Verified 05/13/24 08:46) blurred vision, headache, eye swelling metoprolol Adverse Reaction (Severe, Verified 05/13/24 08:46) Severe bradycardia alendronate sodium [From Fosamax] Adverse Reaction (Intermediate, Verified 05/13/24 08:46) Joint Pain amitriptyline Adverse Reaction (Intermediate, Verified 05/13/24 08:46) Agitated cyclosporine [From Cequa] Adverse Reaction (Intermediate, Verified 05/13/24 08:46) Eye Swelling fluticasone furoate [From Trelegy Ellipta] Adverse Reaction (Intermediate, Verified 05/13/24 08:46) asthma exacerbation perfluorohexyloctane [From Miebo] Adverse Reaction (Intermediate, Verified 05/13/24 08:46) Eye Swelling tobramycin [From Tobrex] Adverse Reaction (Intermediate, Verified 05/13/24 08:46) Eye Swelling umeclidinium [From Trelegy Ellipta] Adverse Reaction (Intermediate, Verified 05/13/24 08:46) asthma exacerbation vilanterol [From Trelegy Ellipta] Adverse Reaction (Intermediate, Verified 05/13/24 08:46) asthma exacerbation azelastine Adverse Reaction (Mild, Verified 05/13/24 08:46) Gastrointestinal Upset hi Adverse Reaction (Intermediate, Uncoded 05/13/24 08:46) Itchy Eyes Sulindac Adverse Reaction (Intermediate, Uncoded 05/13/24 08:46) Nausea, pain HPI Comments Details: The patient is a 74-year-old female presenting primarily for the management of persistent neck pain and related symptoms post-cervical fusion. Two years ago, she underwent cervical fusion at C4-C7. While initially successful, recent months have seen a return of symptoms, such as left-sided neck pain radiating to the ocular area, andmuscle tension, more pronounced on the left. She also experiences a rare tingling down right upper arm, though it differs from pre-surgery sensations. The pain exacerbates on certain movements, though relief is achieved temporarily through cervical stimulator external devices, TENS unit, Physiofit heat massage, muscle relaxants, NSAID and topical medications. She recently completed cervical spine xray per her Neurosurgeon Dr. Rodriguez and was told her hardware was grossly intact with incomplete fusion. Osteoporosis management comprises Prolia administration, reflecting an intersection with neck-related management to ensure appropriate therapeutic interventions. - Onset: Approximately two months ago, following improvement post-surgery in 2022 - Quality: Tightness, tension, radiating pain (left side, ocular region) - Location: Left neck, radiating to the ocular area, top of left head and left face with pulling sensations - Aggravating Factors: Head movement (particularly turning to the right) - Relieving Factors: Heat massager, external cervical stimulator, topical analgesics, muscle relaxant, NSAID - Interference with Activities: Pain affects movement such as turning the head and impacts overall comfort - Affect: Pain impacting the patient?s general well-being and daily comfort - Analgesia: Currently using cervical stimulation, nzya-fad-jbjqvvo topical agents, Flexeril, Ibuprofren and non-pharmacological methods - Adverse Effects: Adverse drug reactions to Flexeril (e.g., balance issues) - Activities of Daily Living: Pain hinders certain physical activities and basic movements - Aberrant Drug Related Behaviors: None reported PRIOR 10/11/22 Dr. Oquendo: 72-year-old female is presenting today for a trigger point injection. She denies any recent cough, cold, infection, fever or other significant changes in medical history since last office visit. The patient had significant relief from the procedure. She had soreness for two to three days after the last procedure, which resolved on its own. She is still experiencing mild neck pain that is not radiating to her shoulder. She states that the crunching sound in her neck has improved. She has a history of osteoarthritis in her hands, knees, and ankles. She tried lidocaine, 4% menthol patches, and Biofreeze for arthritic pain on left side. She denies any history of Hep C infection or STD diseases. Past procedures: 09/06/22: Trigger point injection: >60% relief. 04/17/2022: Greater Trochanteric Bursa Injection, Right: 80-90% relief. 04/17/2022: Sacroiliac Joint Injection, Bilateral: 80-90% relief. 11/21/2021: Diagnostic Cervical Medial Branch Block, Bilateral C3, C4, C5 medial branches: 90% relief. [facility] Medical History Esophageal spasm Hx of carcinoma of bladder Bladder carcinoma History of trigger finger Cervical radiculitis Chronic sinusitis GERD (gastroesophageal reflux disease) FRANCESCA (obstructive sleep apnea) CAD (coronary artery disease) History of primary hyperparathyroidism Non-toxic multinodular goiter Osteoporosis Pulmonary nodules H/O gastroesophageal reflux (GERD) HLD (hyperlipidemia) HTN (hypertension) COPD (chronic obstructive pulmonary disease) Asthma History of aneurysm Migraine Depression PTSD (post-traumatic stress disorder) History of panic attacks Anxiety Edema History of deviated nasal septum Medial epicondylitis of left elbow Fusion of spine, cervical region Surgical History History of carpal tunnel release Hx of cystoscopy H/O cervical spine surgery Hx of hand surgery Hx of right inguinal hernia repair History of hernia repair Hx of colonoscopy History of esophagogastroduodenoscopy (EGD) S/P repair of paraesophageal hernia H/O decompression of ulnar nerve Status post ablation of incompetent vein using laser History of cardiac catheterization History of eyelid surgery History of appendectomy History of parathyroidectomy History of cholecystectomy Hx of cataract surgery Hx of shoulder surgery S/P cubital tunnel release S/P arthroscopic surgery of right knee History of lumpectomy of both breasts History of hysterectomy Hx of adenoidectomy Hx of tonsillectomy Hx of eye surgery Family History Father Liver cancer Psoriasis Cancer Mental health disorder Mother Cervical cancer Ovarian cancer Heart attack Substance use disorder Social History Household Members: Children and None Housing: House Alcohol intake: current Alcohol intake frequency: does not drink Patient Tobacco Use Status: Former Tobacco user Tobacco use type: Cigarette e-Cigarette/Vaping Use: Never Used Second Hand Smoke Exposure: No service: No Current occupational status: employed 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, 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 Cognitive needs: No Hearing needs: No Vision needs: No Review of Systems Const Details: - Neurological: Reports dizziness previously, now alleviated since second surgery - Musculoskeletal: Reports neck pain, stiffness and muscle spasms - Ophthalmic: Reports left eye pulling sensation - Cardiovascular: Denies chest pain, shortness of breaths, dizziness All systems reviewed & are unremarkable except as noted in HPI and below Physical Exam Vital Signs: Last Vital Signs Pulse 92 05/13/24 08:46 BP 176/77 H 05/13/24 08:46 Pulse Ox 99 05/13/24 08:46 Oxygen Delivery Method Room Air 05/13/24 08:46 BMI result Body Mass Index 33.0 General: Appears afebrile. Alert and oriented. Mood and affect appropriate. Follows and participates in conversation appropriately. Respiratory effort is unlabored. Able to transition from sit to stand unassisted. Ambulates with bilaterally normal heel strike and toe off. Neck Other: Limited cervical ROM due to pain and post cervical fusion surgery. Well healed anterior scar. Tenderness to palpation and myofascial knots on the left trapezius and rhomboid muscles, also on the right side to a lesser degree. Neck: Yes normal visual inspection, Yes no lymphadenopathy, Yes supple, No anterior neck swelling, Yes no JVD, No prominent supraclavicular fat pad and No prominent dorsocervical fat pad Back/Spine/Pelvis Cervical Spine: No collar present, cervical muscular tenderness, pain with cervical ROM, Cervical spine scars present, cervical spasm (left), No Cervical spine tenderness and No step off deformity Results Reviewed Results Reviewed: XR CERVICAL SPINE 04/21/24 CLINICAL INFORMATION: PAIN,S/P C6-7 DECOMPRESSION COMPARISON: Correlated to MRI cervical spine dated February 14, 2021. TECHNIQUE: 6 views of the cervical spine, inclusive of flexion and extension views, were obtained. FINDINGS: Anterior metallic endplate at C4-5 and color screws through the vertebral bodies. Intervertebral disc spacer placement C4-5. No acute cortical disruption. No gross loosening. Anterior cervical endplate at C5 C7 without gross loosening. Incomplete ankylosis/arthrodesis C5 C7 and C4-5. No gross malalignment. Craniocervical junction is intact. Multiple vascular clips in the neck/prevertebral compartment. Upper airway is patent. IMPRESSION: Status post anterior cervical fusion/arthrodesis at C4-5 and C5 C7 without gross loosening. DEXA axial skeleton 04/02/24 IMPRESSION: Based on bone mineral density, and according to World Health Organization (WHO) criteria, the diagnosis is consistent with osteoporosis. Assessment & Plan Assessment & Plan (1) Cervical radiculitis: Code(s): M54.12 - Radiculopathy, cervical region Category: Medical (2) Failed back syndrome of cervical spine: Code(s): M96.1 - Postlaminectomy syndrome, not elsewhere classified Category: Medical (3) Cervical myofascial pain syndrome: Code(s): M79.18 - Myalgia, other site Category: Medical (4) Occipital neuralgia of left side: Code(s): M54.81 - Occipital neuralgia Category: Medical (5) Cervical spondylosis: Code(s): M47.812 - Spondylosis without myelopathy or radiculopathy, cervical region Category: Medical Plan I propose to advance the patient's management plan focusing on alleviating her ongoing neck pain, involving a structured approach using non-surgical interventions. Patient will continue with use of external cervical stimulation alongside scheduling a left occipital nerve block and trigger point injections with dry needling with Dr. Oquendo, aiming to manage pain effectively while cautiously considering minimal steroid use due to existing osteoporosis. Evaluation of therapeutic interventions, both pharmacological and device-based, are outlined with potential adjustments based on efficacy, adverse effects, and osteoporosis management overseen by Dr. Doss. An MRI may be pursued sooner contingent on persistent or worsening symptoms and follow up with Dr. Rodriguez per patient as planned. All questions and concerns have been answered and patient agreed with the treatment plan. Follow up as needed. Patient was informed and verbally consented to the use of an ambient scribe for clinic note documentation during this visit. Coding Level of Care Code Est Pt Level 4 (40860) Complex EM visit Add On G2211 Diagnoses Cervical radiculitis M54.12 Failed back syndrome of cervical spine M96.1 Cervical myofascial pain syndrome M79.18 Occipital neuralgia of left side M54.81 Cervical spondylosis M47.812
[2024-05-13 08:46] VITALS: BP 176/77; PULSE 92; O2SAT 99; BMI 33.0
--- OUTSIDE RECORDS SUMMARY | 2024-05-13 08:52 | XMS_ITS | Clinical Summary ---
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 Gait is steady. Review [...] hand and has an appointment to see [facility] on July 14. She is welcome to see us in the future if there are any new concerns. Assessment & Plan (04/28/2024 11:43 AM EDT): Who describes left-sided upper posterior neck pain with some radiation to the skull. I was not able to reproduce it by palpating the left skull base. She is neurologically intact. X-rays of the cervical spine from [facility] dated 2024 show good position of her C4-5 and C5-C6-C7 plates but there does not appear to be robust bone growth across the disc spaces. I will discuss with Dr. Rodriguez and likely order a bone growth stimulator. Meantime, she is going to get in contact with [facility]. We talked about acupuncture and [...] Description 04/28/2024 11:00 AM EDT Office Visit [address] [address] Chuck Atkins PA Cervical spondylosis (Primary Dx) 04/21/[address] [address] Jenise Lewis MA Results 04/19/[address] [address] Corrine Galvan MA from Last [...] Years Completed 10/30/2022, 11/18/2016, 10/27/2015 RSV Immunization Adult Patients Completed 11/01/2022 Influenza Vaccine Completed 12/09/2023, , [...] AM EST Encounter for screening for osteoporosis DMIAS SCREENING DIGITAL Routine 02/02/2018 8:35 AM EST Encounter for screening mammogram for malignant neoplasm of breast from Last 3 Months or Most Recently Relevant to Health Maintenance Results * [facility]AS DEXA AXIAL SKELETON (02/02/2018 9:04 AM EST) Anatomical Region Laterality Modality Mammography 02/02/2018 7:11 AM EST Narrative 02/02/2018 9:04 AM EST [facility] Diagnostic Imaging Department [address] [place] [id number] Patient: ??ADALI HOLMAN I ?/Age/Sex: 1950 - 67 - F Unit#: ??[id number] ? Location/Status: ??SPDIMAM/REG CLI ? Mnemonic/Ordering Site: ??MAMDEXAAX/SPMAM Ordering Physician: ??KATERINA TOLBERT MD [facility] Dexa Axial Skeleton - 02/02/18748 HISTORY: ??The [...] probability of hip fracture of 11.3%. Code 95667 Dictating Physician: ??GALINA KUO MD Electronically Signed by: ??GALINA KUO MD Dic Date/Time: ??02/02/18901 Sign date/Time: ??02/02/18903 Procedure Note Galina Kuo MD - 01/29/2022 [facility] Diagnostic Imaging Department [address] [place] [address] Patient: ADALI HOLMAN Hari /Age/Sex: 1950 - 67 - F Unit#: [id number] Location/Status: [facility] Mnemonic/Ordering Site: [facility] Ordering Physician: KATERINA TOLBERT MD [facility] Dexa Axial Skeleton - 02/02/18 - 7517 HISTORY: The patient is a 67-year-old postmenopausal [...] density of the femurs bilaterally is 0.707 gm/vu8wfleh is 70% of that of young normals [...] probability of hip fracture of 11.3%. Code 69652 Dictating Physician: GALINA KUO MD Electronically Signed by: GALINA KUO MD Dic Date/Time: 02/02/18901 Sign date/Time: 02/02/18903 us Katerina Tolbert MD IMG BI PROCEDURES Final Re sult * DIMAS SCREENING DIGITAL (02/02/2018 8:35 AM EST) Anatomical Region Laterality Modality Mammography 02/02/2018 7:10 AM EST Narrative 02/02/2018 8:35 AM EST [facility] Diagnostic Imaging Department [address] [place] [address] Patient: ??ADALI HOLMAN I ?/Age/Sex: 1950 - Unit#: ??[id number] ? Location/Status: ??SPDIMAM/REG CLI ? Mnemonic/Ordering Site: ??DIGSC/SPMAM Ordering Physician: ??JEANETTE CARRERA MD [facility] Screening Digital - 02/02/1849 INDICATION: SCREENING COMPARISON: [facility] mammograms dating back to ?? 01/12/2013 FINDINGS: CC and MLO views of the breasts were obtained, using full field digital mammography with 3D tomosynthesis views in the MLO projection. Computer aided detection with the Agenus 7.2-H was employed. Benign bilateral breast biopsies [...] date for the next mammogram. (G0202 / 10590) , ??01587 Dictating Physician: ??TONI SHRESTHA MD Electronically Signed by: ??TONI SHRESTHA MD Dic Date/Time: ??02/02/18829 Sign date/Time: ??02/02/18834 Procedure Note Toni Shrestha MD - 01/29/2022 [facility] Diagnostic Imaging Department [address] [place], [place] [id number] Patient: ADALI HOLMAN Hari /Age/Sex: 1950 - 67 - F Unit#: [id number] Location/Status: SPDIMA/REG CLI Mnemonic/Ordering Site: [facility] Ordering Physician: JEANETTE CARRERA MD [facility] Screening Digital - 02/02/18 - 0749 INDICATION: SCREENING COMPARISON: [facility] mammograms dating back to 01/12/2013 FINDINGS: CC and MLO views of the breasts were obtained, using full field digital mammography with 3D tomosynthesis views in the MLO projection. Computeraided detection with the Agenus 7.2-H was employed. Benign bilateral breast biopsies [...] target date for the next mammogram. 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
--- OUTSIDE RECORDS SUMMARY | 2024-05-13 08:52 | XMS_ITS | Patient Health Record ---
Author Organization [facility] Address [address] [place] [address] Care Team Providers Care Forest Technology Professor Name Role Phone BEBE VELASCO M.D Primary Care Provider LIZANDRO Bean Unavailable [phone] Allergies Allergen (clinical drug ingredient) Drug/Non Drug Allergy documented on EMR Reaction Allergy Type Onset Date Status 12 Hour Nasal [place] Unknown Drug Allergy Active risedronate Actonel Unknown [...] Status Risk Notes Problem Postmenopausal atrophic vaginitis (35610028) Postmenopausal atrophic vaginitis (N95.2) Active confirmed Problem Age-related osteoporosis (911066040) Age-related osteoporosis without current pathological fracture (M81.0) Active confirmed Problem Essential hypertension (87622103) Essential (primary) hypertension (I10) Active confirmed Problem Hyperlipidemia (87751764) Hyperlipidemia, unspecified (E78.5) Active confirmed Problem Uncomplicated asthma (disorder) (773667773) Unspecified asthma, uncomplicated (J45.909) Active confirmed Problem Gastro-esophageal reflux disease without esophagitis (782990679) Gastro-esophageal reflux disease without esophagitis (K21.9) Active confirmed Plan Of Treatment No Information Insurance Providers Payer Name Payer Address Payer Phone Subscriber Number Group Number Insured Name Patient Relationship to Insured Coverage Start Date Coverage End Date MEDICARE [address] [facility], [place] [id number] [phone] [id number] JORGITO MANCILLA Self - patient is the [...]
--- OUTSIDE RECORDS SUMMARY | 2024-05-13 08:52 | XMS_ITS | Data Portability ---
Author Organization [place] - [facility], Allergy Address [address] [place] [id number] Care Team Providers Care Certified Nurse Practitioner Name Role Phone BEBE VELASCO Primary Care Provider [phone] Assessment Encounter Date Assessment Date Assessment LastModified [...] Address Organization Details Recorded Time Bilateral tinnitus 87812019804 02 Active 2018 Tinnitus, bilateral ; Note: Date Diagnosed : 09/16/2018 9:36 AM (H93.13) Not Available [facility] 4 03:05:03 Sensorine ural hearing loss of bilateral ears 039644225 Active 2018 Sensorine ural hearing loss, bilateral ; Note: Date Diagnosed : 09/16/2018 9:36 AM (H90.3) Not Available [facility] 4 03:05:03 Migraine with aura 3885096 Active 2018 Migraine with aura, not intractab le, without status migrainos us; Note: Date Diagnosed : 09/16/2018 9:50 AM (G43.109) Not Available [facility] 4 03:05:05 Dizziness and giddiness 661707388 Active 2018 Dizziness and giddiness ; Note: Date Diagnosed : 09/16/2018 9:36 AM (R42) Not Available [facility] 4 03:05:03 Gastroeso phageal reflux disease without esophagit is 877131023 Active 2018 Gastro-es ophageal reflux disease without esophagit is; Note: Date Diagnosed : 09/16/2018 9:57 AM (K21.9) Not Available [facility] 4 03:05:03 Headache 96262604 Active 2018 Facial pain NOS; Note: Date Diagnosed : 09/16/2018 9:50 AM (R51) Not Available [facility] 4 03:05:02 Recurrent acute sinusitis 758917309 Active 2024 HARPREET HALEY MD [address] [place] [address], [place], [phone] , [place] - [facility] 5 16:29:55 Allergic rhinitis 52404135 Active 2024 HARPREET HALEY MD [address] [place] [address], [place], [phone] , [place] - [facility] 5 16:30:02 Problem Notes None recorded. Procedures Surgical History Date Name Laterality Status Provider Name and Address Organization Details Recorded Time 03/12/2024 Comp Audio with Tymps (37396 & 03530) completed ADALI ASKEW [place], CCC-A [address] [address], [place], [phone], [facility] 03/12/2024 16:00:59 03/12/2024 NasalEndosc opy_DP completed HARPREET HALEY MD [address] [place] [address], [phone], [facility] 03/12/2024 16:29:37 Imaging Results Imaging Date Name Status LastModified by Organiz ation Details LastModified Time 03/15/2024 audiogram completed [facility] Information no t available 03/15/2024 13:28:12 Procedure Notes None recorded. Medical Equipment None Reported. Allergies Allergen ID Allergen Name Allergen Category Reaction Reaction Severity Criticality Documentation Date Start Date Code Code System Note Provider Name and Address Organization Details Recorded Time 862153 tacrolimu s medicatio n Not available Not available Not available 03/12/2024 19746 RxNorm Zoraida Potvin null, [place] - [facility] 15:11:51 101348 Nexletol medicatio n Not available Not available Not available 03/12/2024 03427 09 RxNorm Zoraida Potvin null, [place] - [facility] 15:12:16 002499 Miebo medicatio n Not available Not available Not available 03/12/2024 03352 52 RxNorm Zoraida Potvin null, [place] - [facility] 15:12:27 886078 sulindac medicatio n Not available Not available Not available 03/12/2024 42229 RxNorm Zoraida Potvin null, [place] - [facility] 15:12:36 663611 Fosamax medicatio n Not available Not available Not available 03/12/2024 75452 5 RxNorm Zoraida Potvin null, [place] - [facility] 5 15:12:46 193872 latex environme nt,medica tion Not available Not available Not available 03/12/2024 03892 91 RxNorm Zoraida Potvin franko, [place] - [facility] 15:13:27 204571 Dexilant medicatio n Not available Not available Not available 03/12/2024 90098 1 RxNorm Zoraida Marsh franko [place] - [facility] 15:13:54 752355 doxycycli ne Not available Not available Not available Not available 03/12/2024 3640 RxNorm Zoraida Marsh franko, [facility] 15:14:23 Medications Name Sig Start Date Stop [...] Smoking Status Former Smoker HARPREET HALEY MD [address] [place] [address], [place], [phone], [facility] - [facility] 03/12/2024 09:06:30 How Much Tobacco Do You [...] Disorder N Anesthesia Complications N Heart Attack ([place]) N Other Skin Condition N Diabetes N [...] SNOMED-CT Code Diagnosis ICD10 Code Diagnosis Note [id number] HARPREET HALEY MD [facility] [address] [phone] 03/12/2024 14:19:20 03/12/2024 16:35:50 Sensorineural hearing loss of bilateral ears [id number] H90.3 Audiologic al evaluation results: Right ear: [...] maintain a hermetic seal}} Recurrent acute sinusitis [id number] J01.91 Allergic rhinitis 522697 04 J30.9 Health Concerns Section Related Observation [...] her sinus congestion symptoms HARPREET HALEY MD [address] [place] [address],[address], [phone], [facility] - [facility] 03/12/2024 16:35:50 OBGyn Episode No OBEpisode recorded.
== END 2024-05-13 09:17 | disposition home or self-care (01) ==
LOC: HO.PMC 08:45
PROVIDERS: PCP Nurse Practitioner Family; Visit Provider Nurse Practitioner Family
DX: M54.12 Radiculopathy, cervical region (principal); M96.1 Postlaminectomy syndrome, not elsewhere classified; M79.18 Myalgia, other site; M54.81 Occipital neuralgia; M47.812 Spondylosis without myelopathy or radiculopathy, cervical region
CPT/HCPCS: 99214; G2211

== ENCOUNTER → 2024-05-13 08:44 | Outpatient (BNVA) | payer MEDICARE, SELFPAY | PROVIDERS: PCP Nurse Practitioner Family; Visit Provider Nurse Practitioner Family | DX: M47.26 Other spondylosis with radiculopathy, lumbar region (principal); M96.1 Postlaminectomy syndrome, not elsewhere classified; M79.18 Myalgia, other site; M54.81 Occipital neuralgia | CPT/HCPCS: 99212 ==

== ENCOUNTER 2024-05-14 08:35 | Outpatient (AMB) | payer OTHER, SELFPAY ==
[2024-05-14 08:49] VITALS: BP 127/72; PULSE 94; O2SAT 98; BMI 32.7
--- NOTE | 2024-05-14 08:49 | MHC.OFFVIS ---
Vital Signs 05/14/24 08:49 Height 4 ft 11 in Weight 162 lb 0.636 oz BMI 32.7 BP 127/72 Blood Pressure Location Lt brachial Position Sitting Pulse 94 Pulse Source Doppler Pulse Oximetry (%) 98 Oxygen Delivery Method Room Air Intake Visit Reasons: Dyspnea Allergies dexlansoprazole [From DEXILANT] Allergy (Severe, Verified 05/13/24 08:46) dizziness, change in HR risedronate sodium [From ACTONEL] Allergy (Severe, Verified 05/13/24 08:46) chest discomfort Binufjd-ICI-HoD Reductase Inhibitor [NOBCUWJ-ZUP-YEI REDUCTASE INHIBITOR] Allergy (Severe, Verified 05/13/24 08:46) JOINT PAIN tramadol [TRAMADOL] Allergy (Severe, Verified 05/13/24 08:46) THROAT TIGHTNESS amlodipine [AMLODIPINE] Allergy (Intermediate, Verified 05/13/24 08:46) PALIPITATIONS Atrovent Allergy (Intermediate, Verified 05/13/24 08:46) Cough baclofen [BACLOFEN] Allergy (Intermediate, Verified 05/13/24 08:46) LETHARGY Beta-Blockers (Beta-Adrenergic Bloc Allergy (Intermediate, Verified 05/13/24 08:46) BRADYCARDIA budesonide [From SYMBICORT] Allergy (Intermediate, Verified 05/13/24 08:46) HOARSENESS Chocolate Allergy (Intermediate, Verified 05/13/24 08:46) GERD ezetimibe [From ZETIA] Allergy (Intermediate, Verified 05/13/24 08:46) JOINT PAIN, ELEVATED CPK fluticasone [From ADVAIR DISKUS] Allergy (Intermediate, Verified 05/13/24 08:46) HTN glucosamine Allergy (Intermediate, Verified 05/13/24 08:46) LE edema ibandronate sodium [From BONIVA] Allergy (Intermediate, Verified 05/13/24 08:46) CHEST PAIN latex [LATEX] Allergy (Intermediate, Verified 05/13/24 08:46) RASH-SENSITIVITY lisinopril [LISINOPRIL] Allergy (Intermediate, Verified 05/13/24 08:46) COUGH, really bad cough meloxicam [From MOBIC] Allergy (Intermediate, Verified 05/13/24 08:46) GI UPSET mometasone furoate [From DULERA] Allergy (Intermediate, Verified 05/13/24 08:46) COUGH niacin Allergy (Intermediate, Verified 05/13/24 08:46) Flushing Penicillins [PENICILLINS] Allergy (Intermediate, Verified 05/13/24 08:46) RASH pregabalin [From LYRICA] Allergy (Intermediate, Verified 05/13/24 08:46) GERD flare up raloxifene [From EVISTA] Allergy (Intermediate, Verified 05/13/24 08:46) GERD rofecoxib [From Vioxx] Allergy (Intermediate, Verified 05/13/24 08:46) ankle swelling salmeterol [From ADVAIR DISKUS] Allergy (Intermediate, Verified 05/13/24 08:46) HTN scallops [SCALLOPS] Allergy (Intermediate, Verified 05/13/24 08:46) NAUSEA & VOMITING sertraline [From ZOLOFT] Allergy (Intermediate, Verified 05/13/24 08:46) SKIN CRAWLING spironolactone [SPIRONOLACTONE] Allergy (Intermediate, Verified 05/13/24 08:46) RASH, ?? psoriasis strawberry [STRAWBERRY] Allergy (Intermediate, Verified 05/13/24 08:46) ITCHING tiotropium [From SPIRIVA WITH HANDIHALER] Allergy (Intermediate, Verified 05/13/24 08:46) RAW THROAT, pharyngitis verapamil [VERAPAMIL] Allergy (Intermediate, Verified 05/13/24 08:46) IRREGULAR HEARTBEAT esomeprazole [Nexium] Allergy (Mild, Verified 05/13/24 08:46) did not resolve GERD naproxen [From ALEVE] Allergy (Mild, Verified 05/13/24 08:46) FLUSH omeprazole Allergy (Mild, Verified 05/13/24 08:46) did not resolve GERD tacrolimus Allergy (Mild, Verified 05/13/24 08:46) Rash adhesive [ADHESIVE] Allergy (Unknown, Verified 05/13/24 08:46) RASH doxycycline [DOXYCYCLINE] Allergy (Unknown, Verified 05/13/24 08:46) SEVERE NOYOLA, HEARTBURN, joint pain gabapentin [From NEURONTIN] Allergy (Unknown, Verified 05/13/24 08:46) leg swelling, SOB metoclopramide [From REGLAN] Allergy (Unknown, Verified 05/13/24 08:46) LETHARGY monosodium glutamate [MSG] Allergy (Unknown, Verified 05/13/24 08:46) HEADACHE, increased HR lifitegrast [From Xiidra] Allergy (Verified 05/13/24 08:46) blurred vision, headache, eye swelling metoprolol Adverse Reaction (Severe, Verified 05/13/24 08:46) Severe bradycardia alendronate sodium [From Fosamax] Adverse Reaction (Intermediate, Verified 05/13/24 08:46) Joint Pain amitriptyline Adverse Reaction (Intermediate, Verified 05/13/24 08:46) Agitated cyclosporine [From Cequa] Adverse Reaction (Intermediate, Verified 05/13/24 08:46) Eye Swelling fluticasone furoate [From Trelegy Ellipta] Adverse Reaction (Intermediate, Verified 05/13/24 08:46) asthma exacerbation perfluorohexyloctane [From Miebo] Adverse Reaction (Intermediate, Verified 05/13/24 08:46) Eye Swelling tobramycin [From Tobrex] Adverse Reaction (Intermediate, Verified 05/13/24 08:46) Eye Swelling umeclidinium [From Trelegy Ellipta] Adverse Reaction (Intermediate, Verified 05/13/24 08:46) asthma exacerbation vilanterol [From Trelegy Ellipta] Adverse Reaction (Intermediate, Verified 05/13/24 08:46) asthma exacerbation azelastine Adverse Reaction (Mild, Verified 05/13/24 08:46) Gastrointestinal Upset hi Adverse Reaction (Intermediate, Uncoded 05/13/24 08:46) Itchy Eyes Sulindac Adverse Reaction (Intermediate, Uncoded 05/13/24 08:46) Nausea, pain HPI Comments Details: The patient is a 74-year-old woman with history of asthma in addition to hiatal hernia. Overall her respiratory symptoms have been stable and she was able to get off her maintenance inhaler. She has been having symptoms and she feels is mainly due to hiatal hernia. She has been seen closely by GI. They tried multiple medications in addition to reflux diet. She did try Reglan the resulted in significant side effects. I did tell her that there are other promotility agents she can consider. She understands that underlying reflux and hiatal hernia can result in worsening respiratory symptoms due to the microaspiration. I did provide the patient again with another reflux diet to make sure she is following the proper diet. We did review her last CT scan of the chest that demonstrated stable pulmonary nodules which was done at [facility]. Otherwise patient is without any other complaints. She still having significant reflux disease and regurgitation. She is followed closely by GI and now going to be followed up with surgery for possible surgical intervention for her persistent symptoms. We again talked about promotility agents, but, does not feel like dose going to work due to the fact that she has a pretty complicated hiatal hernia. We did again review her pulmonary nodules which appear to be stable for many years which is reassuring. 04/24/2022 the patient is here for pulmonary follow-up visit. Overall the patient is doing fairly well. She has not had to use her inhalers much. She does have a rescue inhaler that she can use as needed. She also has episodes of chest tightness mainly in the substernal area. Sometimes she associates it with her reflux disease. She continues to be on the medication for the reflux and Country knows to follow reflux diet. Although she continues to have symptoms. Explained to her that sometimes the reflux can result in micro aspirations into the lungs. She does have some changes primarily in the left lower lobe that are suspicious for bronchiolitis which could be due to aspiration. Her last CT scan of the chest was back in April 2021 demonstrating some new 4 mm pulmonary nodules which are subsolid in nature. The other nodules were stable. Will have the patient start CPT with flutter valve to try to clear any mucus at all the airways and plan to repeat the CT scan in 6 months which be 18 month follow-up CT scan for the new nodules. 10/30/2022 a the patient is here for pulmonary follow-up visit. The patient is healing in recovering after having cervical surgery the anterior approach. She had back in June. After she lost her voice for some time. She was having hard time with her breathing or shortness of breath and also chest pain. She was given 2 days of Decadron but no more because the recovery process. The patient was evaluated by ENT and had a laryngoscopy without any significant findings. They recommended speech therapy and also a barium modified barium swallow. She then saw GI and switched over to a regular barium swallow. Question of the metal plate affecting her swallow. As far as her breathing has been okay she has not had to use her rescue inhaler. Although she is concerned about the chest pain. The patient has been sleeping on a positional bed and she does have sleep apnea but she has been maintaining positional therapy. She has been on omeprazole and also Carafate for her reflux disease. We talked about the importance of a reflux diet. Also at the barium swallows okay she can consider a promotility agent. As far as her pulmonary nodules are stable. She does have some bronchitis as within the airways themselves but otherwise clinically stable. After she gets the barium swallow she was having a message for further recommendations. 01/25/2023 the patient is here for a pulmonary follow-up visit. She is doing relatively well from a respiratory status. She has been using the Xopenex as needed. Typically she has reflux issues is subsequently the reflux may exacerbate her breathing. Her rescue inhaler does help adjust partially. She is wondering if she can go back on QVAR. She were seemed to also help her. She is changing insurances so therefore may be better covered. I will go ahead and set of the QVAR again that she can use as prescribed. In addition to that she will be seen the GI doctor soon. She still having issues with reflux and also having issues with dysphagia. We also looked at her last CT scan that was done back in September 2022. It is reassuring that her pulmonary nodules are stable. She did have some slight inflammation of the right upper lung area suggesting some airways disease but it was minimal. No further imaging at this time. We will have her discuss additional imaging during the next visit. 04/10/2023 the patient is here for sick visit. Apparently she started developing worsening respiratory symptoms last 7-10 days. She was having cough in addition to shortness of breath and chest tightness. She went to an urgent care where she is found to have significant crackles on exam looked more than right suggesting of an atypical pneumonia. The patient is given a course of Z-Nilton in addition to short course of prednisone. She is already feeling better. Although she still feels some cough and some minimal wheezing. She has been using her inhalers. We did examine her lungs in her crackles are significantly better. She just has some trace crackles on the left lung now. Will go in request a chest x-ray to assess the area. If the area looks significantly abnormal then I will call her to give her additional medications. But at this point she would like to hold off on additional antibiotics. She also does not do well with prednisone. She will continue using her respiratory medications. she is having issues with her esophagus. She does have esophageal stricture and she did require dilation back in January of 2023. it was recommended she have a repeat procedure specially since she had significant scarring of the esophagus. I do believe that she is okay at this point and she may be able to proceed with the procedure. Since she is just now recovering from this illness I would least recommend she can wait least 2 weeks before having any interventions. 08/13/2023 the patient is here for a pulmonary follow-up visit. Overall she is doing okay from respiratory status. Although she started developing some increased nasal congestion sinus pressure and postnasal drip. She is feeling like she started to develop component of sinusitis. She is concerned because she is going to undergo surgery next week. 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 She will undergo procedure under anesthesia. Clinically she is doing well from a respiratory status and she is able to proceed with therapy. In the meantime will start her on a Z-Nilton to treat her in case symptoms worsen over the weekend she has been having issues with her inhalers. QVAR seems to work the best for her. Will go ahead and resend a prescription to pharmacy. She does not tolerate powdered inhalers because the Irritate the throat. The patient continues with the reflux diet. as far as imaging studies the patient had a chest x-ray back in 04/30/2023 without any acute disease. She also had a CT scan back in 2022 demonstrating stable pulmonary nodules and some minimal airways disease. Will follow-up in 6 months and discuss any additional testing if warranted. 11/28/2023 the patient is here for a pulmonary follow-up visit. Again she is complaining of nasal congestion. The last time was back in August when she had it. She did respond well to the Z-Nilton. She has a lot of intolerance to medications. Therefore will try another course to see if that improves her symptoms since it worked 1st time. In addition to that the patient has been using her respiratory therapy with good effect. She has not required any prednisone. She is having a little allergy symptoms. Therefore acting her upper and lower respiratory tract. Reasonable to do allergy testing further blood work at this time. 05/14/2024 the patient is here for a pulmonary follow-up visit. Still complaining of dyspnea on exertion. Moderate severity. She also has other elements including her neck pain. She is currently working with pain management for that. She does have a pain stimulator. This aggravates her and affects her sleep. She still strides to sleep on her side because of her sleep apnea. She does have a positional sleep apnea therefore she sleeps on her side she does not have any significant findings of sleep apnea. For her shortness of breath she is going to have a cardiac workup including a nuclear stress test and an echo and Holter monitor. If her workup is negative then will go ahead and address her pulmonary manifestations. She is already on QVAR which seems to be helpful. She also has a rescue inhaler that helps her as well. Will plan to repeat her pulmonary function studies prior to the next visit in September. I did recommend pulmonary rehabilitation specially if her cardiac workup is completely unremarkable. If she does have increased cardiovascular risk factors and her sleep apnea needs to be treated with PAP therapy we can also consider that as well. [facility] Medical History Esophageal spasm Hx of carcinoma of bladder Bladder carcinoma History of trigger finger Cervical radiculitis Chronic sinusitis GERD (gastroesophageal reflux disease) FRANCESCA (obstructive sleep apnea) CAD (coronary artery disease) History of primary hyperparathyroidism Non-toxic multinodular goiter Osteoporosis Pulmonary nodules H/O gastroesophageal reflux (GERD) HLD (hyperlipidemia) HTN (hypertension) COPD (chronic obstructive pulmonary disease) Asthma History of aneurysm Migraine Depression PTSD (post-traumatic stress disorder) History of panic attacks Anxiety Edema History of deviated nasal septum Medial epicondylitis of left elbow Fusion of spine, cervical region Surgical History History of carpal tunnel release Hx of cystoscopy H/O cervical spine surgery Hx of hand surgery Hx of right inguinal hernia repair History of hernia repair Hx of colonoscopy History of esophagogastroduodenoscopy (EGD) S/P repair of paraesophageal hernia H/O decompression of ulnar nerve Status post ablation of incompetent vein using laser History of cardiac catheterization History of eyelid surgery History of appendectomy History of parathyroidectomy History of cholecystectomy Hx of cataract surgery Hx of shoulder surgery S/P cubital tunnel release S/P arthroscopic surgery of right knee History of lumpectomy of both breasts History of hysterectomy Hx of adenoidectomy Hx of tonsillectomy Hx of eye surgery Family History Father Liver cancer Psoriasis Cancer Mental health disorder Mother Cervical cancer Ovarian cancer Heart attack Substance use disorder Social History Household Members: Children and None Housing: House Alcohol intake: current Alcohol intake frequency: does not drink Patient Tobacco Use Status: Former Tobacco user Tobacco use type: Cigarette e-Cigarette/Vaping Use: Never Used Second Hand Smoke Exposure: No service: No Current occupational status: employed 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, 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 Cognitive needs: No Hearing needs: No Vision needs: No Review of Systems Const Reports body aches, Denies chills, Denies fatigue and Denies fever(s) ENT Reports otalgia (R ear), Reports nasal congestion, Reports nasal discharge, Reports sinus pressure, Denies sore throat and Denies throat swelling Card Denies chest pain, Denies rapid heart rate and Reports dyspnea Resp Reports chest congestion, Reports cough, Denies hemoptysis, Denies excessive phlegm production, Reports dyspnea and Reports wheezing GI Denies abdominal pain Reports as per HPI and Reports hematuria Musc Reports back pain Endo Denies fatigue Aller/Immun Denies throat swelling and Reports wheezing Physical Exam Vital Signs: Last Vital Signs Pulse 94 05/14/24 08:49 BP 127/72 05/14/24 08:49 Pulse Ox 98 05/14/24 08:49 Oxygen Delivery Method Room Air 05/14/24 08:49 BMI result Body Mass Index 32.7 Const General: alert HEENT Head: Yes normocephalic Eyes Pupils: Equal, round and reactive pupils present Neck Neck: Yes normal visual inspection, Yes full ROM and Yes no lymphadenopathy Chest Chest palpation & inspection: normal inspection of the chest Resp Auscultation: no wheezes and diminished lung sounds Cardio Rate: regular rate Rhythm: regular rhythm Heart sounds: S1 normal heart sound present and S2 normal heart sound present GI Palpation (GI): Soft to palpation and nontender Auscultation: normal bowel sounds General: Yes no CVA tenderness Back/Spine/Pelvis Back: no CVA tenderness Skin General skin exam: rashes and/or lesions noted Neuro Cranial nerves: Yes Equal, round and reactive pupils present Assessment & Plan Assessment & Plan (1) FRANCESCA (obstructive sleep apnea): Code(s): G47.33 - Obstructive sleep apnea (adult) (pediatric) Category: Medical (2) Dyspnea on exertion: Code(s): R06.00 - Dyspnea, unspecified Category: Medical (3) Pulmonary nodules: Code(s): R91.8 - Other nonspecific abnormal finding of lung field Category: Medical (4) GERD (gastroesophageal reflux disease): Code(s): K21.9 - Gastro-esophageal reflux disease without esophagitis Category: Medical Qualifiers: Esophagitis presence: without esophagitis Qualified Code(s): K21.9 - Gastro-esophageal reflux disease without esophagitis (5) Allergies: Code(s): T78.40XA - Allergy, unspecified, initial encounter Category: Medical Qualifiers: Encounter type: initial encounter Qualified Code(s): T78.40XA - Allergy, unspecified, initial encounter (6) Short of breath on exertion: Code(s): R06.02 - Shortness of breath Category: Medical Plan Continue short-acting beta agonist as needed (xopenex) QVAR singulair Reflux diet Positional therapy, avoiding sleeping back PFTs follow-up in 6 months Orders: Orders PFT pulmonary function test 08/22/24 R06.02 - Shortness of breath Coding Level of Care Code Est Pt Level 4 (84059) Diagnoses FRANCESCA (obstructive sleep apnea) G47.33 Dyspnea on exertion R06.00 Pulmonary nodules R91.8 Gastroesophageal reflux disease without esophagitis K21.9 Esophagitis presence: without esophagitis Allergy, initial encounter T78.40XA Encounter type: initial encounter Short of breath on exertion R06.02 Time Spent (min) 16
--- OUTSIDE RECORDS SUMMARY | 2024-05-14 09:05 | XMS_ITS | Patient Health Record ---
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 Name Role Phone BEBE VELASCO M.D Primary Care Provider LIZANDRO Bean Unavailable [phone] Allergies Allergen (clinical drug ingredient) Drug/Non Drug Allergy documented on EMR Reaction Allergy Type Onset Date Status 12 Hour Nasal [place] Unknown Drug Allergy Active risedronate Actonel Unknown [...] Status Risk Notes Problem Postmenopausal atrophic vaginitis (43257125) Postmenopausal atrophic vaginitis (N95.2) Active confirmed Problem Age-related osteoporosis (504222854) Age-related osteoporosis without current pathological fracture (M81.0) Active confirmed Problem Essential hypertension (09368446) Essential (primary) hypertension (I10) Active confirmed Problem Hyperlipidemia (82653294) Hyperlipidemia, unspecified (E78.5) Active confirmed Problem Uncomplicated asthma (disorder) (543614574) Unspecified asthma, uncomplicated (J45.909) Active confirmed Problem Gastro-esophageal reflux disease without esophagitis (598516009) Gastro-esophageal reflux disease without esophagitis (K21.9) Active confirmed Plan Of Treatment No Information Insurance Providers Payer Name Payer Address Payer Phone Subscriber Number Group Number Insured Name Patient Relationship to Insured Coverage Start Date Coverage End Date MEDICARE [address] [facility], [place] [id number] JORGITO MANCILLA Self - patient is the [...]
--- OUTSIDE RECORDS SUMMARY | 2024-05-14 09:05 | XMS_ITS | Clinical Summary ---
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 Gait is steady. Review [...] hand and has an appointment to see [place] [facility] on July 14. She is welcome to see us in the future if there are any new concerns. Assessment & Plan (04/28/2024 11:43 AM EDT): Who describes left-sided upper posterior neck pain with some radiation to the skull. I was not able to reproduce it by palpating the left skull base. She is neurologically intact. X-rays of the cervical spine from [facility] dated 2024 show good position of her C4-5 and C5-C6-C7 plates but there does not appear to be robust bone growth across the disc spaces. I will discuss with Dr. Rodriguez and likely order a bone growth stimulator. Meantime, she is going to get in contact with [place] [facility]. We talked about acupuncture and [...] Description 04/28/2024 11:00 AM EDT Office Visit [address] [address] Chuck Atkins PA Cervical spondylosis (Primary Dx) 04/21/[address] [address] Jenise Lewis MA Results 04/19/[address] [address] Corrine Galvan MA from Last [...] Recently Relevant to Health Maintenance Results * [facility] DEXA AXIAL SKELETON (02/02/2018 9:04 AM EST) Anatomical Region Laterality Modality Mammography 02/02/2018 7:11 AM EST Narrative 02/02/2018 9:04 AM EST [facility] Diagnostic Imaging Department [address] [place] [id number] Patient: ??ADALI HOLMAN I ?/Age/Sex: 1950 - 67 - F Unit#: ??[id number] ? Location/Status: ??SPDIMAM/REG CLI ? Mnemonic/Ordering Site: ??MAMDEXAAX/SPMAM Ordering Physician: ??KATERINA TOLBERT MD [facility] Dexa Axial Skeleton - 02/02/18748 HISTORY: ??The [...] probability of hip fracture of 11.3%. Code 51002 Dictating Physician: ??GALINA KUO MD Electronically Signed by: ??GALINA KUO MD Dic Date/Time: ??02/02/18901 Sign date/Time: ??02/02/18903 Procedure Note Galina Kuo MD - 01/29/2022 [facility] Diagnostic Imaging Department [address] [place] [address] Patient: ADALI HOLMAN Hari /Age/Sex: 1950 - 67 - F Unit#: [id number] Location/Status: [facility] Mnemonic/Ordering Site: [facility] Ordering Physician: KATERINA TOLBERT MD [facility] Dexa Axial Skeleton - 02/02/18 - 0451 HISTORY: The patient is a 67-year-old postmenopausal [...] density of the femurs bilaterally is 0.707 gm/uw1syfdv is 70% of that of young normals [...] probability of hip fracture of 11.3%. Code 55733 Dictating Physician: GALINA KUO MD Electronically Signed by: GALINA KUO MD Dic Date/Time: 02/02/18901 Sign date/Time: 02/02/18903 us Katerina Tolbert MD IMG BI PROCEDURES Final Re sult * [facility] SCREENING DIGITAL (02/02/2018 8:35 AM EST) Anatomical Region Laterality Modality Mammography 02/02/2018 7:10 AM EST Narrative 02/02/2018 8:35 AM EST [facility] Diagnostic Imaging Department [address] [place] [address] Patient: ??ADALI HOLMAN I ?/Age/Sex: 1950 - Unit#: ??[id number] ? Location/Status: ??SPDIMAM/REG CLI ? Mnemonic/Ordering Site: ??DIGSC/SPMAM Ordering Physician: ??JEANETTE CARRERA MD [facility] Screening Digital - 02/02/1849 INDICATION: SCREENING COMPARISON: [facility] mammograms dating back to ?? 01/12/2013 FINDINGS: CC and MLO views of the breasts were obtained, using full field digital mammography with 3D tomosynthesis views in the MLO projection. Computer aided detection with the Farehelper 7.2-H was employed. Benign bilateral breast biopsies [...] date for the next mammogram. (G0202 / 14338) , ??89708 Dictating Physician: ??TONI SHRESTHA MD Electronically Signed by: ??TONI SHRESTHA MD Dic Date/Time: ??02/02/18829 Sign date/Time: ??02/02/18834 Procedure Note Toni Shrestha MD - 01/29/2022 [facility] Diagnostic Imaging Department [address] [place], [place] [id number] Patient: ADALI HOLMAN Hari /Age/Sex: 1950 - 67 - F Unit#: [id number] Location/Status: SPDIMA/REG CLI Mnemonic/Ordering Site: [facility] Ordering Physician: JEANETTE CARRERA MD [facility] Screening Digital - 02/02/18 - 0749 INDICATION: SCREENING COMPARISON: [facility] mammograms dating back to 01/12/2013 FINDINGS: CC and MLO views of the breasts were obtained, using full field digital mammography with 3D tomosynthesis views in the MLO projection. Computeraided detection with the Farehelper 7.2-H was employed. Benign bilateral breast biopsies [...] target date for the next mammogram. 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 [facility] [place] P[facility] - General 05/31/22
== END 2024-05-14 09:02 | disposition home or self-care (01) ==
LOC: HO.HPS 08:36
PROVIDERS: PCP Nurse Practitioner Family; Visit Provider Hospitalist
DX: G47.33 Obstructive sleep apnea (adult) (pediatric) (principal); R06.00 Dyspnea, unspecified; R91.8 Other nonspecific abnormal finding of lung field; K21.9 Gastro-esophageal reflux disease without esophagitis; T78.40XA Allergy, unspecified, initial encounter; R06.02 Shortness of breath
CPT/HCPCS: 99214

== ENCOUNTER 2024-05-17 15:22 | Outpatient (AMB) | payer OTHER, SELFPAY ==
--- NOTE | 2024-05-17 15:23 | A.OFFVIS_ITS ---
Intake Visit Reasons: urine results Intake Note: Patient presents to office today via telehealth for urine results Urology Med:None Antibiotic Allergy: Penicillins, Doxycycline, Blood Thinner: Asprin Wood Room Hand Required: No Accompanied by: Self / Same As Patient Allergies dexlansoprazole (From DEXILANT) Allergy (Severe, Verified 08/06/24 09:16) dizziness, change in HR risedronate sodium (From ACTONEL) Allergy (Severe, Verified 08/06/24 09:16) chest discomfort Qzafntt-ACX-NrE Reductase Inhibitor (WETZPQT-OWB-TWC REDUCTASE INHIBITOR) Allergy (Severe, Verified 08/06/24 09:16) JOINT PAIN tramadol (TRAMADOL) Allergy (Severe, Verified 08/06/24 09:16) THROAT TIGHTNESS amlodipine (AMLODIPINE) Allergy (Intermediate, Verified 08/06/24 09:16) PALIPITATIONS Atrovent Allergy (Intermediate, Verified 08/06/24 09:16) Cough baclofen (BACLOFEN) Allergy (Intermediate, Verified 08/06/24 09:16) LETHARGY Beta-Blockers (Beta-Adrenergic Bloc Allergy (Intermediate, Verified 08/06/24 09:16) BRADYCARDIA budesonide (From SYMBICORT) Allergy (Intermediate, Verified 08/06/24 09:16) HOARSENESS Chocolate Allergy (Intermediate, Verified 08/06/24 09:16) GERD ezetimibe (From ZETIA) Allergy (Intermediate, Verified 08/06/24 09:16) JOINT PAIN, ELEVATED CPK fluticasone (From ADVAIR DISKUS) Allergy (Intermediate, Verified 08/06/24 09:16) HTN glucosamine Allergy (Intermediate, Verified 08/06/24 09:16) LE edema ibandronate sodium (From BONIVA) Allergy (Intermediate, Verified 08/06/24 09:16) CHEST PAIN latex (LATEX) Allergy (Intermediate, Verified 08/06/24 09:16) RASH-SENSITIVITY lisinopril (LISINOPRIL) Allergy (Intermediate, Verified 08/06/24 09:16) COUGH, really bad cough meloxicam (From MOBIC) Allergy (Intermediate, Verified 08/06/24 09:16) GI UPSET mometasone furoate (From DULERA) Allergy (Intermediate, Verified 08/06/24 09:16) COUGH niacin Allergy (Intermediate, Verified 08/06/24 09:16) Flushing Penicillins (PENICILLINS) Allergy (Intermediate, Verified 08/06/24 09:16) RASH pregabalin (From LYRICA) Allergy (Intermediate, Verified 08/06/24 09:16) GERD flare up raloxifene (From EVISTA) Allergy (Intermediate, Verified 08/06/24 09:16) GERD rofecoxib (From Vioxx) Allergy (Intermediate, Verified 08/06/24 09:16) ankle swelling salmeterol (From ADVAIR DISKUS) Allergy (Intermediate, Verified 08/06/24 09:16) HTN scallops (SCALLOPS) Allergy (Intermediate, Verified 08/06/24 09:16) NAUSEA & VOMITING sertraline (From ZOLOFT) Allergy (Intermediate, Verified 08/06/24 09:16) SKIN CRAWLING spironolactone (SPIRONOLACTONE) Allergy (Intermediate, Verified 08/06/24 09:16) RASH, ?? psoriasis strawberry (STRAWBERRY) Allergy (Intermediate, Verified 08/06/24 09:16) ITCHING tiotropium (From SPIRIVA WITH HANDIHALER) Allergy (Intermediate, Verified 08/06/24 09:16) RAW THROAT, pharyngitis verapamil (VERAPAMIL) Allergy (Intermediate, Verified 08/06/24 09:16) IRREGULAR HEARTBEAT esomeprazole (Nexium) Allergy (Mild, Verified 08/06/24 09:16) did not resolve GERD naproxen (From ALEVE) Allergy (Mild, Verified 08/06/24 09:16) FLUSH omeprazole Allergy (Mild, Verified 08/06/24 09:16) did not resolve GERD tacrolimus Allergy (Mild, Verified 08/06/24 09:16) Rash adhesive (ADHESIVE) Allergy (Unknown, Verified 08/06/24 09:16) RASH doxycycline (DOXYCYCLINE) Allergy (Unknown, Verified 08/06/24 09:16) SEVERE NOYOLA, HEARTBURN, joint pain gabapentin (From NEURONTIN) Allergy (Unknown, Verified 08/06/24 09:16) leg swelling, SOB metoclopramide (From REGLAN) Allergy (Unknown, Verified 08/06/24 09:16) LETHARGY monosodium glutamate (MSG) Allergy (Unknown, Verified 08/06/24 09:16) HEADACHE, increased HR lifitegrast (From Xiidra) Allergy (Verified 08/06/24 09:16) blurred vision, headache, eye swelling metoprolol Adverse Reaction (Severe, Verified 08/06/24 09:16) Severe bradycardia alendronate sodium (From Fosamax) Adverse Reaction (Intermediate, Verified 08/06/24 09:16) Joint Pain amitriptyline Adverse Reaction (Intermediate, Verified 08/06/24 09:16) Agitated cyclosporine (From Cequa) Adverse Reaction (Intermediate, Verified 08/06/24 09:16) Eye Swelling fluticasone furoate (From Trelegy Ellipta) Adverse Reaction (Intermediate, Verified 08/06/24 09:16) asthma exacerbation perfluorohexyloctane (From Miebo) Adverse Reaction (Intermediate, Verified 08/06/24 09:16) Eye Swelling tobramycin (From Tobrex) Adverse Reaction (Intermediate, Verified 08/06/24 09:16) Eye Swelling umeclidinium (From Trelegy Ellipta) Adverse Reaction (Intermediate, Verified 08/06/24 09:16) asthma exacerbation vilanterol (From Trelegy Ellipta) Adverse Reaction (Intermediate, Verified 08/06/24 09:16) asthma exacerbation azelastine Adverse Reaction (Mild, Verified 08/06/24 09:16) Gastrointestinal Upset hi Adverse Reaction (Intermediate, Uncoded 08/06/24 09:16) Itchy Eyes Sulindac Adverse Reaction (Intermediate, Uncoded 08/06/24 09:16) Nausea, pain HPI Comments Details: 05/17/24--Telehealth - FU -discussed urine testing. Negative urine FISH--A normal hybridization pattern was observed for chromosomes 3, 7, 9, and 17. Discussed results, regarding the role The UroVysion test can aid for use on voided urine specimens for the initial diagnosis of bladder carcinoma and in patients with hematuria. Cont to monitor. 03/05/24--Adali is here for surveillance office cystoscopy. Cipro 500mg x 1 PO pre-procedure. Cystoscopy findings: WNL, no suspicious bladder lesions visualized. Cont surveillance. cysto in 4 months. 12/05/23--Adali is a 73-year-old here for 3 month what small or surveillance office cystoscopy. Cystoscopy findings: No recurrent bladder lesions mild to moderate bladder trabeculations. 09/10/23--Adali is status post cystoscopy TURBT. I have reviewed pathology, low- grade noninvasive bladder cancer. I have discussed treatment management for cystoscopy surveillance. Based on small size and that the tumor is low-grade, bladder installations therapy is not indicated at this time. 07/25/2023--here for cystoscopy. CT urogram--within normal limits. Cystoscopy findings: Mild to moderate bladder wall thickening. 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 Discussed cystoscopy TURBT. Consent obtained. 05/19/23--Adali is a 73-year-old female who is here for evaluation for microscopic hematuria. The patient has a history of nicotine use quit in 1979. The patient has lower urinary tract symptoms of urinary frequency. 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 She states she is no longer routinely following with [facility] but told by [facility]IOLOGY about 3 years ago that she had vag inal prolapse. She denies dysuria. Urinalysis trace blood, 0 leukocytes. I have discussed microscopic hematuria may be due to but not limited to kidney stones, BPH, cystitis, urinary tract malignancy. I have discussed work up to include evaluation of the urinary tract which may include imaging, further urine testing, and cystoscopy Plan--CT urogram, urine for cytology, follow-up office cystoscopy [facility] Medical History Esophageal spasm Hx of carcinoma of bladder Bladder carcinoma History of trigger finger Cervical radiculitis Chronic sinusitis GERD (gastroesophageal reflux disease) FRANCESCA (obstructive sleep apnea) CAD (coronary artery disease) History of primary hyperparathyroidism Non-toxic multinodular goiter Osteoporosis Pulmonary nodules H/O gastroesophageal reflux (GERD) HLD (hyperlipidemia) HTN (hypertension) COPD (chronic obstructive pulmonary disease) Asthma History of aneurysm Migraine Depression PTSD (post-traumatic stress disorder) History of panic attacks Anxiety Edema History of deviated nasal septum Medial epicondylitis of left elbow Fusion of spine, cervical region Surgical History History of carpal tunnel release Hx of cystoscopy H/O cervical spine surgery Hx of hand surgery Hx of right inguinal hernia repair History of hernia repair Hx of colonoscopy History of esophagogastroduodenoscopy (EGD) S/P repair of paraesophageal hernia H/O decompression of ulnar nerve Status post ablation of incompetent vein using laser History of cardiac catheterization History of eyelid surgery History of appendectomy History of parathyroidectomy History of cholecystectomy Hx of cataract surgery Hx of shoulder surgery S/P cubital tunnel release S/P arthroscopic surgery of right knee History of lumpectomy of both breasts History of hysterectomy Hx of adenoidectomy Hx of tonsillectomy Hx of eye surgery Family History Father Liver cancer Psoriasis Cancer Mental health disorder Mother Cervical cancer Ovarian cancer Heart attack Substance use disorder Social History Household Members: Children and None Housing: House Alcohol intake: current Alcohol intake frequency: does not drink Patient Tobacco Use Status: Former Tobacco user Tobacco use type: Cigarette e-Cigarette/Vaping Use: Never Used Second Hand Smoke Exposure: No service: No Current occupational status: employed 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, 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 Cognitive needs: No Hearing needs: No Vision needs: Yes Review of Systems Const All systems reviewed & are unremarkable except as noted in HPI and below Reports no additional complaints Eyes Reports no additional complaints ENT Reports no additional complaints Card Reports no additional complaints Resp Reports no additional complaints GI Reports no additional complaints Reports as per HPI Musc Reports no additional complaints Skin/Breast Reports system reviewed and no additional complaints, except as documented Neuro Reports no additional complaints Psych Reports no additional complaints Endo Reports no additional complaints Jesse/Lymph Reports no additional complaints Aller/Immun Reports no additional complaints Telehealth Telehealth Telehealth Platform: [facility] [facility] Location of provider rendering services: practice address Location of patient: address on file Patient Identification confirmed using: Name, : Yes Telehealth method: voice only Patient verbally consented to treatment: Yes Patient verbally consented to billing insurance company: Yes Patient informed of any privacy concerns related to visit: Yes Minutes spent on Phone/Video with Pt.: 12 Results Reviewed Results Reviewed: DERREK: 04/30/24 STATUS: COMP REQ : [id number] RECD: 04/30/[address]: Chloe Dodge MD COMP: 05/07/24-1037 ENTERED: 04/30/[address]: Sachin Linares [facility] ORDERED: FISH Bladder Ca Test Result Flag Reference FISH Bladder Ca see note Order ID: [id number] Specimen Type: Urine Clinical Indication: NOT GIVEN RESULT: NEGATIVE RESULT FOR THE UROVYSION FISH ASSAY INTERPRETATION: A normal hybridization pattern was observed for chromosomes 3, 7, 9, and 17. This result is not indicative of bladder cancer according to the UroVysion Directional Insert ([employer]). Although the UroVysion test was designed to detect genetic changes associated with most bladder cancers, not all genetic changes can be detected by this test. The UroVysion test was designed for use on voided urine specimens as an aid for the initial diagnosis of bladder carcinoma in patients with hematuria and subsequent monitoring for tumor recurrence in patients previously diagnosed with bladder cancer. Collected: 08/19/23 Location: [facility] Received: 08/19/23 Diagnosis A. Bladder, left lateral wall, Transurethral resection: - Low-grade papillary urothelial carcinoma, noninvasive. - No muscularis propria identified. B. Bladder, random posterolateral wall, biopsy: Mild chronic cystitis; muscularis propria present. C. Bladder, random right lateral wall, biopsy: Mild chronic cystitis; muscularis propria present. Bladder, transurethral resection/biopsy (A) Procedure: Transurethral resection Tumor site: Left lateral wall Histologic type: Papillary carcinoma Histologic grade: Low-grade Muscularis propria: Not present Extent of invasion: Noninvasive Lymphovascular invasion: Not identified Date of Service: 07/15/23 EXAMINATION: CT ABDOMEN AND PELVIS WITHOUT AND WITH CONTRAST CLINICAL INFORMATION: Hematuria. COMPARISON: None available. DLP: 720 mGy-cm FINDINGS: LUNG BASES: The visualized lung bases are unremarkable. LIVER, GALLBLADDER, AND BILIARY TREE: The liver is normal in size, shape, and attenuation. No focal hepatic lesion or biliary ductal dilatation is present. Status post cholecystectomy. PANCREAS: Unremarkable. SPLEEN: Unremarkable. ADRENAL GLANDS: Unremarkable. KIDNEYS AND URETERS: The kidneys are normal in size, shape, and attenuation. 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 No hydronephrosis, hydroureter, or calculi seen. No perinephric stranding. No renal parenchymal masses are seen. The uroepithelium appears normal without evidence of masses. BLADDER: Unremarkable. GASTROINTESTINAL TRACT: There is extensive left-sided diverticular disease without diverticulitis. The small and large bowel are otherwise unremarkable. No evidence of appendicitis. ABDOMINAL WALL: No significant hernia is appreciated. LYMPH NODES: Normal. VASCULAR: Calcific atherosclerotic changes are present in the aorta and iliofemoral vessels. There is no evidence of an abdominal aortic aneurysm. PELVIC VISCERA: The uterus is not seen. An abnormal adnexal mass is not detected. No free intraperitoneal fluid is present. OSSEUS STRUCTURES: Degenerative changes are present in the lower thoracic spine as well as at L5-S1. No bony destructive lesions. IMPRESSION: 1. A cause for the patient's hematuria has not been found. Assessment & Plan Assessment & Plan (1) History of nicotine use: Code(s): Z87.891 - Personal history of nicotine dependence Category: Medical (2) Urinary frequency: Code(s): R35.0 - Frequency of micturition Category: Medical (3) Bladder cancer: Code(s): C67.9 - Malignant neoplasm of bladder, unspecified Category: Medical Plan Keep scheduled surveillance office cysto Medications: Discontinued denosumab Discontinued Reason: Doctor's Order 60 mg subcut [id number] 1 mL 3RF M81.0 - Age-related osteoporosis without current pathological fracture Patient Instructions: The patient had an opportunity to ask questions regarding treatment plan. The patient expressed understanding and agreement with the above treatment plan. The patient is aware they should contact our office by phone for worsening of their current condition or the appearance of new symptoms. Compliance is encouraged with any medications and followup testing that is ordered. It is a privilege to be allowed the opportunity to participate in the urologic care of your patient. If you have any questions or concerns regarding treatment for the above conditions please do not hesitate to contact me. The office telephone contact is [phone]. This note is constructed in part using voice recognition software. While every effort has been made to ensure accuracy guitar repair technician errors may have been included. Yours sincerely, Chloe Dodge MD Coding Level of Care Code Tele Est Pt Level 3 (39165) Diagnoses History of nicotine use Z87.891 Urinary frequency R35.0 Bladder cancer C67.9
--- OUTSIDE RECORDS SUMMARY | 2024-05-17 18:12 | XMS_ITS | Clinical Summary ---
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 Gait is steady. Review [...] hand and has an appointment to see [facility] on July 14. She is welcome to see us in the future if there are any new concerns. Assessment & Plan (04/28/2024 11:43 AM EDT): Who describes left-sided upper posterior neck pain with some radiation to the skull. I was not able to reproduce it by palpating the left skull base. She is neurologically intact. X-rays of the cervical spine from [facility] dated 2024 show good position of her C4-5 and C5-C6-C7 plates but there does not appear to be robust bone growth across the disc spaces. I will discuss with Dr. Rodriguez and likely order a bone growth stimulator. Meantime, she is going to get in contact with [facility]. We talked about acupuncture and [...] Description 04/28/2024 11:00 AM EDT Office Visit [address] [address] Chuck Atkins PA Cervical spondylosis (Primary Dx) 04/21/[address] [address] Jenise Lewis MA Results 04/19/[address] [address] Corrine Galvan MA from Last [...] age to complete this topic Meningococcal B Vaccine Aged Out No l onger eligible based on patient's age to complete [...] AM EST Narrative 02/02/2018 9:04 AM EST [facility] Diagnostic Imaging Department [address] [place] [address] Patient: ??ADALI HOLMAN I ?/Age/Sex: 1950 - 67 - F Unit#: ??[id number] ? Location/Status: ??SPDIMAM/REG CLI ? Mnemonic/Ordering Site: ??MAMDEXAAX/SPMAM Ordering Physician: ??KATERINA TOLBERT MD [facility] Dexa Axial Skeleton - 02/02/18748 [...] probability of hip fracture of 11.3%. Code 95084 Dictating Physician: ??GALINA KUO MD Electronically Signed by: ??GALINA KUO MD Dic Date/Time: ??02/02/18901 Sign date/Time: ??02/02/18 09 Procedure Note Galina Kuo MD - 01/29/2022 [facility] Diagnostic Imaging Department [address] [place] [address] Patient: ADALI HOLMAN Hari CunninghamB./Age/Sex: 1950 - 67 - F Unit#: [id number] Location/Status: [facility] Ordering Physician: KATERINA TOLBERT MD [facility] Dexa Axial Skeleton - 02/02/18 - 4665 HISTORY: The patient is a 67-year-old postmenopausal [...] density of the femurs bilaterally is 0.707 gm/ki9hjzvw is 70% of that of young normals [...] probability of hip fracture of 11.3%. Code 44548 Dictating Physician: GALINA KUO MD Electronically Signed by: GALINA KUO MD Dic Date/Time: 02/02/18901 Sign date/Time: 02/02/18903 us Katerina Tolbert MD IMG BI PROCEDURES Final Re sult * [facility] SCREENING DIGITAL (02/02/2018 8:35 AM EST) Anatomical Region Laterality Modality Mammography 02/02/2018 7:10 AM EST Narrative 02/02/2018 8:35 AM EST [facility] Diagnostic Imaging Department [address] [place] [address] Patient: ??ADALI HOLMAN I ?/Age/Sex: 1950 - Unit#: ??[id number] ? Location/Status: ??SPDIMAM/REG CLI ? Mnemonic/Ordering Site: ??DIGSC/SPMAM Ordering Physician: ??JEANETTE CARRERA MD [facility] Screening Digital - 02/02/1849 INDICATION: SCREENING COMPARISON: [facility] mammograms dating back to ?? 01/12/2013 FINDINGS: CC and MLO views of the breasts were obtained, using full field digital mammography with 3D tomosynthesis views in the MLO projection. Computer aided detection with the [employer] 7.2-H was employed. Benign bilateral breast biopsies [...] date for the next mammogram. (G0202 / 90845) , ??[id number] Dictating Physician: ??TONI SHRESTHA MD Electronically Signed by: ??TONI SHRESTHA MD Dic Date/Time: ??02/02/18829 Sign date/Time: ??02/02/18 08 Procedure Note Toni Shrestha MD - 01/29/2022 [facility] Diagnostic Imaging Department [address] [place], [place] [address] Patient: ADALI HOLMAN Hari /Age/Sex: 1950 - 67 - F Unit#: [id number] [facility] Mn[facility]/Ordering Site: [facility] Ordering Physician: JEANETTE CARRERA MD [facility] Screening Digital - 02/02/18 - 0749 INDICATION: SCREENING COMPARISON: [facility] mammograms dating back to 01/12/2013 FINDINGS: CC and MLO views of the breasts were obtained, using full field digital mammography with 3D tomosynthesis views in the MLO projection. Computeraided detection with the [employer] 7.2-H was employed. Benign bilateral breast biopsies [...] target date for the next mammogram. 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
--- OUTSIDE RECORDS SUMMARY | 2024-05-17 18:12 | XMS_ITS | Data Portability ---
Author Organization [place] - [facility], Allergy Address [address] [place] [phone] Care Team Providers Care Soft Water Mechanic Name Role Phone BEBE VELASCO Primary Care [...] Address Organization Details Recorded Time Bilateral tinnitus 75021644190 02 Active 2018 Tinnitus, bilateral ; Note: Date Diagnosed : 09/16/2018 9:36 AM (H93.13) Not Available [facility] 4 03:05:03 Sensorine ural hearing loss of bilateral ears 968451568 Active 2018 Sensorine ural hearing loss, bilateral ; Note: Date Diagnosed : 09/16/2018 9:36 AM (H90.3) Not Available [facility] 4 03:05:03 Migraine with aura 1155214 Active 2018 Migraine with aura, not intractab le, without status migrainos us; Note: Date Diagnosed : 09/16/2018 9:50 AM (G43.109) Not Available [facility] 4 03:05:05 Dizziness and giddiness 811873425 Active 2018 Dizziness and giddiness ; Note: Date Diagnosed : 09/16/2018 9:36 AM (R42) Not Available [facility] hospital 4 03:05:03 Gastroeso phageal reflux disease without esophagit is 060479990 Active 2018 Gastro-es ophageal reflux disease without esophagit is; Note: Date Diagnosed : 09/16/2018 9:57 AM (K21.9) Not Available [facility] 4 03:05:03 Headache 50682136 Active 2018 Facial pain NOS; Note: Date Diagnosed : 09/16/2018 9:50 AM (R51) Not Available Critical access hospital 4 03:05:02 Recurrent acute sinusitis 843544394 Active 2024 HARPREET HALEY MD [address] [place] [address], [place], [address] , [place] - [facility] 5 16:29:55 Allergic rhinitis 74205270 Active 2024 HARPREET HALEY MD [address] [place] [address], [place], [address] , [place] - [facility] 5 16:30:02 Problem Notes None recorded. Procedures Surgical History Date Name Laterality Status Provider Name and Address Organization Details Recorded Time 03/12/2024 Comp Audio with Tymps (94684 & 73490) completed ADALI ASKEW MA, CCC-A [address] [address], [place], [address], [facility] 03/12/2024 16:00:59 03/12/2024 NasalEndosc opy_DP completed HARPREET HALEY MD [address] [place] [address], [phone], [facility] 03/12/2024 16:29:37 Imaging Results Imaging Date Name Status LastModified by Organiz ation Details LastModified Time 03/15/2024 audiogram completed BARCODE Information no t available 03/15/2024 13:28:12 Procedure Notes None recorded. Medical Equipment None Reported. Allergies Allergen ID Allergen Name Allergen Category Reaction Reaction Severity Criticality Documentation Date Start Date Code Code System Note Provider Name and Address Organization Details Recorded Time 639815 tacrolimu s medicatio n Not available Not available Not available 03/12/2024 43266 RxNorm Zoraida Potvin [place] - [facility] 15:11:51 484186 Nexletol medicatio n Not available Not available Not available 03/12/2024 71335 09 RxNorm Zoraida [place]vin [place] [facility] 15:12:16 155676 Miebo medicatio n Not available Not available Not available 03/12/2024 16312 52 RxNorm Zoraida Potvin [place] [facility] 15:12:27 419106 sulindac medicatio n Not available Not available Not available 03/12/2024 49544 RxNorm Zoraida Potvin [place] - [facility] 15:12:36 729889 Fosamax medicatio n Not available Not available Not available 03/12/2024 84031 5 RxNorm Zoraida Potvin [place] - [facility] 5 15:12:46 483418 latex environme nt,medica tion Not available Not available Not available 03/12/2024 48911 91 RxNorm Zoraida Potvin frank[place] - [facility] 15:13:27 011439 Dexilant medicatio n Not available Not available Not available 03/12/2024 85047 1 RxNorm Zoraida Marsh franko [place] - [facility] 15:13:54 393349 doxycycli ne Not available Not available Not available Not available 03/12/2024 3640 RxNorm Zoraida Marsh franko, [facility] 15:14:23 Medications Name Sig Start Date [...] Smoking Status Former Smoker HARPREET HALEY MD [address] [place] [address], [place], [address], [facility] - [facility] 03/12/2024 09:06:30 How Much Tobacco Do [...] Disorder N Anesthesia Complications N Heart Attack ([place]) N Other Skin Condition N Diabetes N [...] SNOMED-CT Code Diagnosis ICD10 Code Diagnosis Note [id number] HARPREET HALEY MD [facility] [address] [address] 03/12/2024 14:19:20 03/12/2024 16:35:50 Sensorineural hearing loss of bilateral ears 471904450 H90.3 Audiologic al evaluation results: Right ear: [...] maintain a hermetic seal}} Recurrent acute sinusitis 428760503 J01.91 Allergic rhinitis 994035 04 J30.9 Health Concerns Section Related Observation [...] her sinus congestion symptoms HARPREET HALEY MD [address] [place] [address],[address], [address], [facility] - [facility] 03/12/2024 16:35:50 OBGyn Episode No OBEpisode recorded.
--- OUTSIDE RECORDS SUMMARY | 2024-05-17 18:12 | XMS_ITS | Patient Health Record ---
Author Organization [facility] Address [address] [place] [address] Care Team Providers Care Clinical Geneticist Name Role Phone BEBE VELASCO M.D Primary Care Provider LIZANDRO Bean Unavailable [phone] Allergies Allergen (clinical drug ingredient) Drug/Non Drug Allergy documented on EMR Reaction Allergy Type Onset Date Status 12 Hour Nasal [place] Unknown Drug Allergy Active risedronate Actonel Unknown [...] Status Risk Notes Problem Postmenopausal atrophic vaginitis (58659009) Postmenopausal atrophic vaginitis (N95.2) Active confirmed Problem Age-related osteoporosis (640532407) Age-related osteoporosis without current pathological fracture (M81.0) Active confirmed Problem Essential hypertension (01782686) Essential (primary) hypertension (I10) Active confirmed Problem Hyperlipidemia (05803110) Hyperlipidemia, unspecified (E78.5) Active confirmed Problem Uncomplicated asthma (disorder) (075485502) Unspecified asthma, uncomplicated (J45.909) Active confirmed Problem Gastro-esophageal reflux disease without esophagitis (522333744) Gastro-esophageal reflux disease without esophagitis (K21.9) Active confirmed Plan Of Treatment No Information Insurance Providers Payer Name Payer Address Payer Phone Subscriber Number Group Number Insured Name Patient Relationship to Insured Coverage Start Date Coverage End Date MEDICARE [address] [place], [place] [id number] JORGITO MANCILLA Self - patient is the [...]
== END 2024-05-17 16:30 | disposition home or self-care (01) ==
LOC: HO.HUSH 15:22
PROVIDERS: PCP Nurse Practitioner Family; Visit Provider Urology
DX: Z87.891 Personal history of nicotine dependence (principal); R35.0 Frequency of micturition; C67.9 Malignant neoplasm of bladder, unspecified
CPT/HCPCS: 99213

== ENCOUNTER 2024-05-21 09:49 | Outpatient (AMB) | payer OTHER, SELFPAY ==
[2024-05-21 09:58] VITALS: BP 122/82; PULSE 80; RESP 16; BMI 32.7
--- NOTE | 2024-05-21 09:58 | A.OFFVIS_ITS ---
Vital Signs 05/21/24 09:58 Height 4 ft 11 in Weight 162 lb BMI 32.7 BP 122/82 Blood Pressure Location Lt brachial Position Sitting Respiration 16 Pulse 80 Pulse Source Pulse Oximeter Intake Visit Reasons: Left ONB/TPI Physical Science Professor Required: No Screen Door Maker: Screen Door Maker Present Allergies dexlansoprazole [From DEXILANT] Allergy (Severe, Verified 05/21/24 09:58) dizziness, change in HR risedronate sodium [From ACTONEL] Allergy (Severe, Verified 05/21/24 09:58) chest discomfort Myeliuc-YXM-NlZ Reductase Inhibitor [EDYMXPM-JVP-GOS REDUCTASE INHIBITOR] Allergy (Severe, Verified 05/21/24 09:58) JOINT PAIN tramadol [TRAMADOL] Allergy (Severe, Verified 05/21/24 09:58) THROAT TIGHTNESS amlodipine [AMLODIPINE] Allergy (Intermediate, Verified 05/21/24 09:58) PALIPITATIONS Atrovent Allergy (Intermediate, Verified 05/21/24 09:58) Cough baclofen [BACLOFEN] Allergy (Intermediate, Verified 05/21/24 09:58) LETHARGY Beta-Blockers (Beta-Adrenergic Bloc Allergy (Intermediate, Verified 05/21/24 09:58) BRADYCARDIA budesonide [From SYMBICORT] Allergy (Intermediate, Verified 05/21/24 09:58) HOARSENESS Chocolate Allergy (Intermediate, Verified 05/21/24 09:58) GERD ezetimibe [From ZETIA] Allergy (Intermediate, Verified 05/21/24 09:58) JOINT PAIN, ELEVATED CPK fluticasone [From ADVAIR DISKUS] Allergy (Intermediate, Verified 05/21/24 09:58) HTN glucosamine Allergy (Intermediate, Verified 05/21/24 09:58) LE edema ibandronate sodium [From BONIVA] Allergy (Intermediate, Verified 05/21/24 09:58) CHEST PAIN latex [LATEX] Allergy (Intermediate, Verified 05/21/24 09:58) RASH-SENSITIVITY lisinopril [LISINOPRIL] Allergy (Intermediate, Verified 05/21/24 09:58) COUGH, really bad cough meloxicam [From MOBIC] Allergy (Intermediate, Verified 05/21/24 09:58) GI UPSET mometasone furoate [From DULERA] Allergy (Intermediate, Verified 05/21/24 09:58) COUGH niacin Allergy (Intermediate, Verified 05/21/24 09:58) Flushing Penicillins [PENICILLINS] Allergy (Intermediate, Verified 05/21/24 09:58) RASH pregabalin [From LYRICA] Allergy (Intermediate, Verified 05/21/24 09:58) GERD flare up raloxifene [From EVISTA] Allergy (Intermediate, Verified 05/21/24 09:58) GERD rofecoxib [From Vioxx] Allergy (Intermediate, Verified 05/21/24 09:58) ankle swelling salmeterol [From ADVAIR DISKUS] Allergy (Intermediate, Verified 05/21/24 09:58) HTN scallops [SCALLOPS] Allergy (Intermediate, Verified 05/21/24 09:58) NAUSEA & VOMITING sertraline [From ZOLOFT] Allergy (Intermediate, Verified 05/21/24 09:58) SKIN CRAWLING spironolactone [SPIRONOLACTONE] Allergy (Intermediate, Verified 05/21/24 09:58) RASH, ?? psoriasis strawberry [STRAWBERRY] Allergy (Intermediate, Verified 05/21/24 09:58) ITCHING tiotropium [From SPIRIVA WITH HANDIHALER] Allergy (Intermediate, Verified 05/21/24 09:58) RAW THROAT, pharyngitis verapamil [VERAPAMIL] Allergy (Intermediate, Verified 05/21/24 09:58) IRREGULAR HEARTBEAT esomeprazole [Nexium] Allergy (Mild, Verified 05/21/24 09:58) did not resolve GERD naproxen [From ALEVE] Allergy (Mild, Verified 05/21/24 09:58) FLUSH omeprazole Allergy (Mild, Verified 05/21/24 09:58) did not resolve GERD tacrolimus Allergy (Mild, Verified 05/21/24 09:58) Rash adhesive [ADHESIVE] Allergy (Unknown, Verified 05/21/24 09:58) RASH doxycycline [DOXYCYCLINE] Allergy (Unknown, Verified 05/21/24 09:58) SEVERE NOYOLA, HEARTBURN, joint pain gabapentin [From NEURONTIN] Allergy (Unknown, Verified 05/21/24 09:58) leg swelling, SOB metoclopramide [From REGLAN] Allergy (Unknown, Verified 05/21/24 09:58) LETHARGY monosodium glutamate [MSG] Allergy (Unknown, Verified 05/21/24 09:58) HEADACHE, increased HR lifitegrast [From Xiidra] Allergy (Verified 05/21/24 09:58) blurred vision, headache, eye swelling metoprolol Adverse Reaction (Severe, Verified 05/21/24 09:58) Severe bradycardia alendronate sodium [From Fosamax] Adverse Reaction (Intermediate, Verified 05/21/24 09:58) Joint Pain amitriptyline Adverse Reaction (Intermediate, Verified 05/21/24 09:58) Agitated cyclosporine [From Cequa] Adverse Reaction (Intermediate, Verified 05/21/24 09:58) Eye Swelling fluticasone furoate [From Trelegy Ellipta] Adverse Reaction (Intermediate, Verified 05/21/24 09:58) asthma exacerbation perfluorohexyloctane [From Miebo] Adverse Reaction (Intermediate, Verified 05/21/24 09:58) Eye Swelling tobramycin [From Tobrex] Adverse Reaction (Intermediate, Verified 05/21/24 09:58) Eye Swelling umeclidinium [From Trelegy Ellipta] Adverse Reaction (Intermediate, Verified 05/21/24 09:58) asthma exacerbation vilanterol [From Trelegy Ellipta] Adverse Reaction (Intermediate, Verified 05/21/24 09:58) asthma exacerbation azelastine Adverse Reaction (Mild, Verified 05/21/24 09:58) Gastrointestinal Upset hi Adverse Reaction (Intermediate, Uncoded 05/21/24 09:58) Itchy Eyes Sulindac Adverse Reaction (Intermediate, Uncoded 05/21/24 09:58) Nausea, pain Medication List - Last Reconciled 05/21/24 by Jackie Pryor LPN aspirin (Adult Aspirin Regimen) 81 mg PO DAILY beclomethasone dipropionate 80 mcg/actuation (Qvar RediHaler) 1 inh inhalation BID 30 days betamethasone dipropionate 0.05% 1 appl topical DIRECTED Bifidobacterium infantis (Align (B.infantis)) 4 mg PO DAILY cetirizine (Zyrtec) 10 mg PO DAILY PRN cholecalciferol (vitamin D3) 25 mcg PO DAILY 30 days cyclosporine 0.05% (Restasis) 1 drp ophthalmic (eye) Q12H denosumab (Prolia) 60 mg subcut [id number] dextran 70-hypromellose (PF) 0.1-0.3 % (Artificial Tears (PF)) 1 drp ophthalmic (eye) BEDTIME docusate sodium (Colace) 100 mg PO BID evolocumab (Repatha SureClick) 140 mg subcut Q2W flunisolide 2 sprays intranasal BID PRN hydrochlorothiazide 12.5 mg PO DAILY 90 days ibuprofen (IBU) 600 mg PO Q8H PRN 90 days levalbuterol tartrate 45 mcg/actuation 2 puffs inhalation Q4H PRN lorazepam (Ativan) 0.5 mg PO DAILY PRN losartan 50 mg PO DAILY 90 days magnesium oxide 500 mg PO DAILY montelukast 10 mg PO DAILY 90 days pantoprazole 40 mg PO BID prednisolone acetate 1% 1 drp ophthalmic (eye) QID sucralfate 1 g PO BID 90 days HPI HPI Left ONB/TPI: Details: History of Present Illness The patient is a 74-year-old female presenting with chronic left-sided neck and head pain. This pain dates back to before her cervical fusion surgery in June 2022, which initially provided relief; however, symptoms recurred post- operatively. She has a history of cervical spondylosis managed previously with cervical medial branch blocks, postponing RFA. Recent imaging indicated inadequate fusion at the surgical site, prompting the use of an Orthofix device, though effectiveness remains limited. The patient also contends with osteoporosis, affecting surgical and treatment decisions. She reports pain affecting her left neck, head, and occasionally causing tearing in the eye. Previous non-surgical management included neonatal critical care nurse, now contraindicated due to surgical history. Her condition is complicated by os teoporosis, managed with treatment prior to and following the second cervical procedure. Pain Description - Onset and Timing: Chronic, pain began prior to June 2022 surgery, recurred post-operatively. - Quality and Character: Persistent left-sided neck and head pain. - Primary Location: Left-sided neck and head. - Radiation: Travels to the top of the head, occasionally causing eye tearing. - Exacerbating Factors: Associated with cervical spine movement and stress. - Relieving Factors: No significant relief from current orthotic device. - Interfering Activities: Affecting daily functions, causing difficulty with eye tearing. Physical Exam - Musculoskeletal- Tenderness noted in left trapezius and rhomboid regions. - Neurological- Pain perceived in left occipital region. - Skin- Presence of lump noted, fluctuating in size. Results - Imaging: X-ray indicating insufficient cervical fusion. - Bone Density: Improved hip density, deteriorated spinal density post-surgery. Pain Management - Affect: Chronic pain impacting psychological well-being, associated with persistent anxiety over symptoms. - Analgesia: Utilizes supportive devices (e.g., orthofix), limited relief currently. - Adverse Effects: None reported from current adjunctive devices. - Activities of Daily Living: Pain restricts mobility and daily activities significantly. - Aberrant Drug-Related Behaviors: No aberrant behaviors reported. Procedure - Trigger Point Injection: - Informed consent obtained. - Administration: 0.25% ropivacaine at trigger points in left trapezius, occipitalis, cervicalis. - Occipital Nerve Block: 3 mL Ropivacaine 0.5% for left occipital nerves. - Tolerance: Patient tolerated well; no blood loss noted. PFS Medical History Esophageal spasm Hx of carcinoma of bladder Bladder carcinoma History of trigger finger Cervical radiculitis Chronic sinusitis GERD (gastroesophageal reflux disease) FRANCESCA (obstructive sleep apnea) CAD (coronary artery disease) History of primary hyperparathyroidism Non-toxic multinodular goiter Osteoporosis Pulmonary nodules H/O gastroesophageal reflux (GERD) HLD (hyperlipidemia) HTN (hypertension) COPD (chronic obstructive pulmonary disease) Asthma History of aneurysm Migraine Depression PTSD (post-traumatic stress disorder) History of panic attacks Anxiety Edema History of deviated nasal septum Medial epicondylitis of left elbow Fusion of spine, cervical region Surgical History History of carpal tunnel release Hx of cystoscopy H/O cervical spine surgery Hx of hand surgery Hx of right inguinal hernia repair History of hernia repair Hx of colonoscopy History of esophagogastroduodenoscopy (EGD) S/P repair of paraesophageal hernia H/O decompression of ulnar nerve Status post ablation of incompetent vein using laser History of cardiac catheterization History of eyelid surgery History of appendectomy History of parathyroidectomy History of cholecystectomy Hx of cataract surgery Hx of shoulder surgery S/P cubital tunnel release S/P arthroscopic surgery of right knee History of lumpectomy of both breasts History of hysterectomy Hx of adenoidectomy Hx of tonsillectomy Hx of eye surgery Family History Father Liver cancer Psoriasis Cancer Mental health disorder Mother Cervical cancer Ovarian cancer Heart attack Substance use disorder Social History Household Members: Children and None Housing: House Alcohol intake: current Alcohol intake frequency: does not drink Patient Tobacco Use Status: Former Tobacco user Tobacco use type: Cigarette e-Cigarette/Vaping Use: Never Used Second Hand Smoke Exposure: No service: No Current occupational status: employed 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, 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 Cognitive needs: No Hearing needs: No Vision needs: No Physical Exam Vital Signs: Last Vital Signs Pulse 80 05/21/24 09:58 Resp 16 05/21/24 09:58 BP 122/82 05/21/24 09:58 BMI result Body Mass Index 32.7 Assessment & Plan Assessment & Plan (1) Cervical neck pain with evidence of disc disease: Code(s): M50.90 - Cervical disc disorder, unspecified, unspecified cervical region Category: Medical (2) Failed back syndrome of cervical spine: Code(s): M96.1 - Postlaminectomy syndrome, not elsewhere classified Category: Medical (3) Cervical spondylosis: Code(s): M47.812 - Spondylosis without myelopathy or radiculopathy, cervical region Category: Medical (4) Myofascial neck pain: Code(s): M54.2 - Cervicalgia Category: Medical Plan Plan Management of chronic left-sided neck and head pain involves continued trigger point and occipital nerve block therapy on a monthly basis, contingent on insurance. Evaluating the effectiveness over time remains a priority, as the patient continues fusion therapy. Nerve stimulator use will be assessed post- completion of the Orthofix device therapy, projected for six months. Concurrently, osteoporosis monitoring continues given its implications on fusion stability. Follow-up imaging and bone density tests are integral components of continued assessment. Patient was informed and verbally consented to the use of an ambient scribe for clinic note documentation during this visit. Discussion Notes During the visit, I discussed with the patient her diagnosis of chronic left- sided neck and head pain, highlighting the benefits of procedural interventions like trigger point and nerve blocks. Risks associated with current therapies were reviewed, including limited efficacy and the necessity for ongoing osteoporosis monitoring affecting neck stability. The potential for future use of a nerve stimulator was explored, contingent on insurance coverage and completion of current fusion support therapy. Follow-up care specific to her conditions and anticipated outcomes was addressed, stressing continual evaluation and adjustments based on therapeutic response. Patient Instructions - Continue using the Orthofix device as instructed for fusion support, four hours daily. - Schedule monthly appointments for trigger point and occipital nerve block treatments. - Monitor potential symptoms and report any significant changes in pain or nefarious side effects. - Maintain regular osteoporosis treatment and follow up with bone density assessments as planned. - Discuss any new or worsening symptoms with care providers promptly. - Keep appointments for finalized imaging and diagnostics to ensure ongoing neck stability assessment. - Consider lifestyle modifications that may enhance comfort and reduce stress on the cervical region. Coding Level of Care Code Est Pt Level 4 (29099) Diagnoses Cervical neck pain with evidence of disc disease M50.90 Failed back syndrome of cervical spine M96.1 Cervical spondylosis M47.812 Myofascial neck pain M54.2
--- OUTSIDE RECORDS SUMMARY | 2024-05-21 10:26 | XMS_ITS | Patient Health Record ---
Author Organization [facility] Address [address] [place] [address] Care Team Providers Care Associate Professor Of Philosophy Name Role Phone BEBE VELASCO M.D Primary Care Provider LIZANDRO Bean Unavailable [phone] Allergies Allergen (clinical drug ingredient) Drug/Non Drug Allergy documented on EMR Reaction Allergy Type Onset Date Status 12 Hour Nasal [place] Unknown Drug Allergy Active risedronate Actonel Unknown [...] Status Risk Notes Problem Postmenopausal atrophic vaginitis (77676732) Postmenopausal atrophic vaginitis (N95.2) Active confirmed Problem Age-related osteoporosis (975470857) Age-related osteoporosis without current pathological fracture (M81.0) Active confirmed Problem Essential hypertension (52223934) Essential (primary) hypertension (I10) Active confirmed Problem Hyperlipidemia (06199341) Hyperlipidemia, unspecified (E78.5) Active confirmed Problem Uncomplicated asthma (disorder) (833234846) Unspecified asthma, uncomplicated (J45.909) Active confirmed Problem Gastro-esophageal reflux disease without esophagitis (522440165) Gastro-esophageal reflux disease without esophagitis (K21.9) Active confirmed Plan Of Treatment No Information Insurance Providers Payer Name Payer Address Payer Phone Subscriber Number Group Number Insured Name Patient Relationship to Insured Coverage Start Date Coverage End Date MEDICARE [address] [facility], [place] [id number] [phone] [id number] JORGITO MANCILLA Self - patient is the [...]
--- OUTSIDE RECORDS SUMMARY | 2024-05-21 10:26 | XMS_ITS | Data Portability ---
Author Organization [place] - [facility], All[facility] Address [address] [place] [address] Care Team Providers Care Kettle Chipper Name Role Phone BEBE VELASCO Primary Care [...] Address Organization Details Recorded Time Bilateral tinnitus [id number] 02 Active 2018 Tinnitus, bilateral ; Note: Date Diagnosed : 09/16/2018 9:36 AM (H93.13) Not Available [facility] 4 03:05:03 Sensorine ural hearing loss of bilateral ears 675689712 Active 2018 Sensorine ural hearing loss, bilateral ; Note: Date Diagnosed : 09/16/2018 9:36 AM (H90.3) Not Available [facility] 4 03:05:03 Migraine with aura 4899179 Active 2018 Migraine with aura, not intractab le, without status migrainos us; Note: Date Diagnosed : 09/16/2018 9:50 AM (G43.109) Not Available [facility] 4 03:05:05 Dizziness and giddiness 642134405 Active 2018 Dizziness and giddiness ; Note: Date Diagnosed : 09/16/2018 9:36 AM (R42) Not Available [facility] 4 03:05:03 Gastroeso phageal reflux disease without esophagit is 630486858 Active 2018 Gastro-es ophageal reflux disease without esophagit is; Note: Date Diagnosed : 09/16/2018 9:57 AM (K21.9) Not Available [facility] 4 03:05:03 Headache 88773807 Active 2018 Facial pain NOS; Note: Date Diagnosed : 09/16/2018 9:50 AM (R51) Not Available [facility] 4 03:05:02 Recurrent acute sinusitis 767582116 Active 2024 HARPREET HALEY MD [address] [place] [address], [place], [address] , [place] - [facility] 5 16:29:55 Allergic rhinitis 12269428 Active 2024 HARPREET HALEY MD [address] [place] [address], [place], [address] , [place] - [facility] 5 16:30:02 Problem Notes None recorded. Procedures Surgical History Date Name Laterality Status Provider Name and Address Organization Details Recorded Time 03/12/2024 Comp Audio with Tymps (40624 & 65893) completed ADALI ASKEW MA, CCC-A [address] [address], [place], [address], [facility] 03/12/2024 16:00:59 03/12/2024 NasalEndosc opy_DP completed HARPREET HALEY MD [address] [place] [address], [phone], [facility] 03/12/2024 16:29:37 Imaging Results Imaging Date Name Status LastModified by Organiz ation Details LastModified Time 03/15/2024 audiogram completed BARCODE Information no t available 03/15/2024 13:28:12 Procedure Notes None recorded. Medical Equipment None Reported. Allergies Allergen ID Allergen Name Allergen Category Reaction Reaction Severity Criticality Documentation Date Start Date Code Code System Note Provider Name and Address Organization Details Recorded Time 369362 tacrolimu s medicatio n Not available Not available Not available 03/12/2024 72548 RxNorm Zoraida Potvin [place], [place] - [facility] 15:11:51 427606 Nexletol medicatio n Not available Not available Not available 03/12/2024 24352 09 RxNorm Zoraida [place]vin [place] - [facility] 15:12:16 100000 Miebo medicatio n Not available Not available Not available 03/12/2024 89894 52 RxNorm Zoraida [place]vin [place] [facility] 15:12:27 289927 sulindac medicatio n Not available Not available Not available 03/12/2024 83269 RxNorm Zoraida [place]vin [place] [facility] 15:12:36 204260 Fosamax medicatio n Not available Not available Not available 03/12/2024 05712 5 RxNorm Zoraida [place]vin [place], [place] - [facility] 5 15:12:46 753376 latex environme nt,medica tion Not available Not available Not available 03/12/2024 11633 91 RxNorm Zoraida Potvin franko, [place] - [facility] 15:13:27 157794 Dexilant medicatio n Not available Not available Not available 03/12/2024 31292 1 RxNorm Zoraida Marsh franko [place] - [facility] 15:13:54 116975 doxycycli ne Not available Not available Not available Not available 03/12/2024 3640 RxNorm Zoraida Marsh franko, [facility] 15:14:23 Medications Name Sig Start Date [...] Smoking Status Former Smoker HARPREET HALEY MD [address] [place] [address], [place], [address], [facility] - [facility] 03/12/2024 09:06:30 How Much Tobacco Do [...] Disorder N Anesthesia Complications N Heart Attack ([place]) N Other Skin Condition N Diabetes N [...] SNOMED-CT Code Diagnosis ICD10 Code Diagnosis Note [id number] HARPREET HALEY MD [facility] [address] [phone] 03/12/2024 14:19:20 03/12/2024 16:35:50 Sensorineural hearing loss of bilateral ears [id number] H90.3 Audiologic al evaluation results: Right ear: [...] maintain a hermetic seal}} Recurrent acute sinusitis [id number] J01.91 Allergic rhinitis 640807 04 J30.9 Health Concerns Section Related Observation [...] her sinus congestion symptoms HARPREET HALEY MD [address] [place] [address],[address], [phone], [facility] - [facility] 03/12/2024 16:35:50 OBGyn Episode No OBEpisode recorded.
--- OUTSIDE RECORDS SUMMARY | 2024-05-21 10:26 | XMS_ITS | Clinical Summary ---
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 Gait is steady. Review [...] hand and has an appointment to see [facility] on July 14. She is welcome to see us in the future if there are any new concerns. Assessment & Plan (04/28/2024 11:43 AM EDT): Who describes left-sided upper posterior neck pain with some radiation to the skull. I was not able to reproduce it by palpating the left skull base. She is neurologically intact. X-rays of the cervical spine from [facility] dated 2024 show good position of her C4-5 and C5-C6-C7 plates but there does not appear to be robust bone growth across the disc spaces. I will discuss with Dr. Rodriguez and likely order a bone growth stimulator. Meantime, she is going to get in contact with [facility]. We talked about acupuncture and [...] Description 04/28/2024 11:00 AM EDT Office Visit [address] [phone] Chuck Atkins PA Cervical spondylosis (Primary Dx) 04/21/[address] [address] Jenise Lewis MA Results 04/19/[address] [address] Corrine Galvan MA from Last [...] Psoriasis 01/16/2017 DX:Psoriasis Malignant tumor of cervix (C MS/HCC V24, CMS/HCC V28) 01/16/2017 DX:Malignant tumor of cervix (HCC); COMMENT: [...] Procedure Name Priority Date/Time Associated Diagnosis Comments [facility] DEXA AXIAL SKELETON Routine 02/02/2018 9:04 AM EST Encounter for screening for osteoporosis [facility] SCREENING DIGITAL Routine 02/02/2018 8:35 AM EST Encounter for screening mammogram for malignant neoplasm of breast from Last 3 Months or Most Recently Relevant to Health Maintenance Results * [facility] DEXA AXIAL SKELETON (02/02/2018 9:04 AM EST) Anatomical Region Laterality Modality Mammography 02/02/2018 7:11 AM EST Narrative 02/02/2018 9:04 AM EST Diagnostic Imaging Department [address] [place] [address] Patient: ??ADALI HOLMAN I ?/Age/Sex: 1950 - 67 - F Unit#: ??[id number] ? Location/Status: ??SPDIMAM/REG CLI ? Mnemonic/Ordering Site: ??MAMDEXAAX/SPMAM Ordering Physician: ??KATERINA TOLBERT MD [facility] Dexa Axial Skeleton - 02/02/18748 [...] probability of hip fracture of 11.3%. Code 31300 Dictating Physician: ??GALINA KUO MD Electronically Signed by: ??GALINA KUO MD Dic Date/Time: ??02/02/18901 Sign date/Time: ??02/02/18903 Procedure Note Galina Kuo MD - 01/29/2022 Diagnostic Imaging Department [address] [place] [address] Patient: ADALI HOLMAN Hari /Age/Sex: 1950 - 67 - F Unit#: [id number] Location/Status: [facility]/REG I Mnemonic/Ordering Site: [facility] Ordering Physician: KATERINA TOLBERT MD [facility] Dexa Axial Skeleton - 02/02/18748 [...] density of the femurs bilaterally is 0.707 gm/zy5sjkzu is 70% of that of young normals [...] probability of hip fracture of 11.3%. Code 19890 Dictating Physician: GALINA KUO MD Electronically Signed by: GALINA KUO MD Dic Date/Time: 02/02/18901 Sign date/Time: 02/02/18903 us Katerina Tolbert MD IMG BI PROCEDURES Final Re sult * [facility]IMAS SCREENING DIGITAL (02/02/2018 8:35 AM EST) Anatomical Region Laterality Modality Mammography 02/02/2018 7:10 AM EST Narrative 02/02/2018 8:35 AM EST Diagnostic Imaging Department [address] [place] [id number] Patient: ??ADALI HOLMAN I ?/Age/Sex: 1950 67 - F Unit#: ??[id number] ? Location/Status: ??SPDIMAM/[facility] CLI ? Mnemonic/Ordering Site: ??DIGSC/SPMAM Ordering Physician: ??JEANETTE CARRERA MD [facility] Screening Digital - 02/02/1849 INDICATION: SCREENING COMPARISON: [facility] mammograms dating back to ?? 01/12/2013 FINDINGS: CC and MLO views of the breasts were obtained, using full field digital mammography with 3D tomosynthesis views in the MLO projection. Computer aided detection with the [employer] 7.2-H was employed. Benign bilateral breast biopsies [...] date for the next mammogram. (G0202 / [id number]) , ??[id number] Dictating Physician: ??TONI SHRESTHA MD Electronically Signed by: ??TONI SHRESTHA MD Dic Date/Time: ??02/02/18829 Sign date/Time: ??02/02/18834 Procedure Note Toni Shrestha MD - 01/29/2022 Diagnostic Imaging Department [address] [place] [address] Patient: ADALI HOLMAN I /Age/Sex: 1950 - 67 - F Unit#: [id number] Location/Status: [facility] CLI Mnemonic/Ordering Site: [facility] Ordering Physician: JEANETTE CARRERA MD [facility] Screening Digital - 02/02/18 - 0749 INDICATION: SCREENING COMPARISON: [facility] mammograms dating back to 01/12/2013 FINDINGS: CC and MLO views of the breasts were obtained, using full field digital mammography with 3D tomosynthesis views in the MLO projection. Computeraided detection with the EverConnect 7.2-H was employed. Benign bilateral breast biopsies [...] target date for the next mammogram. 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
== END 2024-05-21 10:31 | disposition home or self-care (01) ==
LOC: HO.PMC 09:50
PROVIDERS: PCP Nurse Practitioner Family; Visit Provider Internal Medicine
DX: M96.1 Postlaminectomy syndrome, not elsewhere classified (principal); M50.90 Cervical disc disorder, unspecified, unspecified cervical region; M47.812 Spondylosis without myelopathy or radiculopathy, cervical region; M54.2 Cervicalgia; M79.18 Myalgia, other site
CPT/HCPCS: 20553; 64405; 64450; 99214

== ENCOUNTER → 2024-05-21 09:49 | Outpatient (BNVA) | payer OTHER, SELFPAY | PROVIDERS: PCP Nurse Practitioner Family; Visit Provider Internal Medicine | DX: M50.90 Cervical disc disorder, unspecified, unspecified cervical region (principal); M79.18 Myalgia, other site; M96.1 Postlaminectomy syndrome, not elsewhere classified; M47.812 Spondylosis without myelopathy or radiculopathy, cervical region; M54.2 Cervicalgia | CPT/HCPCS: 20553; 64405; 64450 ==

== ENCOUNTER 2024-06-01 11:19 | Outpatient (AMB) | payer OTHER, SELFPAY ==
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
--- OUTSIDE RECORDS SUMMARY | 2024-06-01 13:37 | XMS_ITS | Clinical Summary ---
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 Gait is steady. Review [...] hand and has an appointment to see [facility] on July 14. She is welcome to see us in the future if there are any new concerns. Assessment & Plan (04/28/2024 11:43 AM EDT): Who describes left-sided upper posterior neck pain with some radiation to the skull. I was not able to reproduce it by palpating the left skull base. She is neurologically intact. X-rays of the cervical spine from [facility] dated 2024 show good position of her C4-5 and C5-C6-C7 plates but there does not appear to be robust bone growth across the disc spaces. I will discuss with Dr. Rodriguez and likely order a bone growth stimulator. Meantime, she is going to get in contact with [facility]. We talked about acupuncture and [...] Description 04/28/2024 11:00 AM EDT Office Visit [address] [phone] Chuck Atkins PA Cervical spondylosis (Primary Dx) 04/21/[address] [address] Jenise Lewis MA Results 04/19/[address] [address] Corrine Galvan MA from Last [...] Procedure Name Priority Date/Time Associated Diagnosis Comments [facility] DEXA AXIAL SKELETON Routine 02/02/2018 9:04 AM EST Encounter for screening for osteoporosis DIMAS SCREENING DIGITAL Routine 02/02/2018 8:35 AM EST Encounter for screening mammogram for malignant neoplasm of breast from Last 3 Months or Most Recently Relevant to Health Maintenance Results * [facility] DEXA AXIAL SKELETON (02/02/2018 9:04 AM EST) Anatomical Region Laterality Modality Mammography 02/02/2018 7:11 AM EST Narrative 02/02/2018 9:[address] [facility] Diagnostic Imaging Department [address] [place] [address] Patient: ??ADALI HOLMAN I ?/Age/Sex: 1950 - 67 - F Unit#: ??[id number] ? Location/Status: ??SPDIMAM/REG CLI ? Mnemonic/Ordering Site: ??MAMDEXAAX/SPMAM Ordering Physician: ??KATERINA TOLBERT MD [facility] Dexa Axial Skeleton - 02/02/18748 HISTORY: [...] probability of hip fracture of 11.3%. Code 44006 Dictating Physician: ??GALINA KUO MD Electronically Signed by: ??GALINA KUO MD Dic Date/Time: ??02/02/18901 Sign date/Time: ??02/02/18903 Procedure Note Galina Kuo MD - 01/29/2022 [facility] Diagnostic Imaging Department [address] [place] [address] Patient: ADALI HOLMAN Hari /Age/Sex: 1950 - 67 - F Unit#: [id number] Location/Status: [facility]/REG I Mnemonic/Ordering Site: [facility] Ordering Physician: KATERINA TOLBERT MD [facility] Dexa Axial Skeleton - 02/02/18748 HISTORY: The [...] density of the femurs bilaterally is 0.707 gm/fs9jhlpr is 70% of that of young normals [...] probability of hip fracture of 11.3%. Code 93070 Dictating Physician: GALINA KUO MD Electronically Signed by: GALINA KUO MD Dic Date/Time: 02/02/18901 Sign date/Time: 02/02/18903 us Katerina Tolbert MD IMG BI PROCEDURES Final Re sult * DIMAS SCREENING DIGITAL (02/02/2018 8:35 AM EST) Anatomical Region Laterality Modality Mammography 02/02/2018 7:10 AM EST Narrative 02/02/2018 8:[address] [facility] Diagnostic Imaging Department [address] [place] [address] Patient: ??ADALI HOLMAN I ?/Age/Sex: 1950 67 - F Unit#: ??[id number] ? Location/Status: ??SPDIMAM/[facility] CLI ? Mnemonic/Ordering Site: ??DIGSC/SPMAM Ordering Physician: ??JEANETTE CARRERA MD [facility] Screening Digital - 02/02/1849 INDICATION: SCREENING COMPARISON: [facility] mammograms dating back to ?? 01/12/2013 FINDINGS: CC and MLO views of the breasts were obtained, using full field digital mammography with 3D tomosynthesis views in the MLO projection. Computer aided detection with the [employer] 7.2-H was employed. Benign bilateral breast biopsies [...] date for the next mammogram. (G0202 / [id number]) , ??[id number] Dictating Physician: ??TONI SHRESTHA MD Electronically Signed by: ??TONI SHRESTHA MD Dic Date/Time: ??02/02/18829 Sign date/Time: ??02/02/18834 Procedure Note Toni Shrestha MD - 01/29/2022 [facility] Diagnostic Imaging Department [address] [place] [address] Patient: ADALI HOLMAN I /Age/Sex: 1950 - 67 - F Unit#: [id number] Location/Status: [facility] CLI Mnemonic/Ordering Site: [facility] Ordering Physician: JEANETTE CARRERA MD [facility] Screening Digital - 02/02/18 - 0749 INDICATION: SCREENING COMPARISON: [facility] mammograms dating back to 01/12/2013 FINDINGS: CC and MLO views of the breasts were obtained, using full field digital mammography with 3D tomosynthesis views in the MLO projection. Computeraided detection with the [employer] 7.2-H was employed. Benign bilateral breast biopsies [...] date for the next mammogram. 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
--- OUTSIDE RECORDS SUMMARY | 2024-06-01 13:37 | XMS_ITS | Data Portability ---
Author Organization [place] - [facility], Allergy Address [address] [place] [id number] Care Team Providers Care Type Photography Supervisor Name Role Phone BEBE VELASCO Primary Care [...] Address Organization Details Recorded Time Bilateral tinnitus [id number] 02 Active 2018 Tinnitus, bilateral ; Note: Date Diagnosed : 09/16/2018 9:36 AM (H93.13) Not Available [facility] 4 03:05:03 Sensorine ural hearing loss of bilateral ears 912100427 Active 2018 Sensorine ural hearing loss, bilateral ; Note: Date Diagnosed : 09/16/2018 9:36 AM (H90.3) Not Available [facility] 4 03:05:03 Migraine with aura 8921210 Active 2018 Migraine with aura, not intractab le, without status migrainos us; Note: Date Diagnosed : 09/16/2018 9:50 AM (G43.109) Not Available [facility] 4 03:05:05 Dizziness and giddiness 510524267 Active 2018 Dizziness and giddiness ; Note: Date Diagnosed : 09/16/2018 9:36 AM (R42) Not Available [facility] hospital 4 03:05:03 Gastroeso phageal reflux disease without esophagit is 554259623 Active 2018 Gastro-es ophageal reflux disease without esophagit is; Note: Date Diagnosed : 09/16/2018 9:57 AM (K21.9) Not Available Critical access hospital 4 03:05:03 Headache 20437644 Active 2018 Facial pain NOS; Note: Date Diagnosed : 09/16/2018 9:50 AM (R51) Not Available Critical access hospital 4 03:05:02 Recurrent acute sinusitis 026240634 Active 2024 HARPREET HALEY MD [address] [place] [address], [place], [address] , [place] - [facility] 16:29:55 Allergic rhinitis 18877801 Active 2024 HARRPEET HALEY MD [address] [place] [address], [place], [address] , [place] - [facility] 16:30:02 Problem Notes None recorded. Procedures Surgical History Date Name Laterality Status Provider Name and Address Organization Details Recorded Time 03/12/2024 Comp Audio with Tymps (15515 & 87513) completed ADALI ASKEW MA, CCC-A [address] [address], [place], [address], [facility] 03/12/2024 16:00:59 03/12/2024 NasalEndosc opy_DP completed HARPREET HALEY MD [address] [place] [address], [phone], [facility] 03/12/2024 16:29:37 Imaging Results Imaging Date Name Status LastModified by Organiz ation Details LastModified Time 03/15/2024 audiogram completed BARCODE Information no t available 03/15/2024 13:28:12 Procedure Notes None recorded. Medical Equipment None Reported. Allergies Allergen ID Allergen Name Allergen Category Reaction Reaction Severity Criticality Documentation Date Start Date Code Code System Note Provider Name and Address Organization Details Recorded Time 355949 tacrolimu s medicatio n Not available Not available Not available 03/12/2024 83923 RxNorm Zoraida Potvin null, [place] - [facility] 15:11:51 798893 Nexletol medicatio n Not available Not available Not available 03/12/2024 19862 09 RxNorm Zoraida Potvin [place], [place] - [facility] 15:12:16 660937 Miebo medicatio n Not available Not available Not available 03/12/2024 01643 52 RxNorm Zoraida Potvin [place], [place] - [facility] 15:12:27 042754 sulindac medicatio n Not available Not available Not available 03/12/2024 72708 RxNorm Zoraida Potvin [place], [place] - [facility] 15:12:36 195254 Fosamax medicatio n Not available Not available Not available 03/12/2024 94136 5 RxNorm Zoraida Potvin [place], [place] - [facility] 5 15:12:46 469687 latex environme nt,medica tion Not available Not available Not available 03/12/2024 84624 91 RxNorm Zoraida Potvin franko, [place] - [facility] 15:13:27 982384 Dexilant medicatio n Not available Not available Not available 03/12/2024 76015 1 RxNorm Zoraida Marsh franko [place] - [facility] 15:13:54 176694 doxycycli ne Not available Not available Not available Not available 03/12/2024 3640 RxNorm Zoraida Marsh franko, [facility] 15:14:23 Medications Name Sig Start Date [...] Smoking Status Former Smoker HARPREET HALEY MD [address] [place] [address], [place], [address], [facility] - [facility] 03/12/2024 09:06:30 How Much Tobacco Do [...] Disorder N Anesthesia Complications N Heart Attack (TN) N Other Skin Condition N Diabetes N [...] SNOMED-CT Code Diagnosis ICD10 Code Diagnosis Note [id number] HARPREET HALEY MD [facility] [address] [address] 03/12/2024 14:19:20 03/12/2024 16:35:50 Sensorineural hearing loss of bilateral ears 669468470 H90.3 Audiologic al evaluation results: Right ear: [...] maintain a hermetic seal}} Recurrent acute sinusitis 231363554 J01.91 Allergic rhinitis 918546 04 J30.9 Health Concerns Section Related Observation [...] her sinus congestion symptoms HARPREET HALEY MD [address] [place] [address],[address], [address], [facility] - [facility] 03/12/2024 16:35:50 OBGyn Episode No OBEpisode recorded.
--- OUTSIDE RECORDS SUMMARY | 2024-06-01 13:37 | XMS_ITS | Patient Health Record ---
Author Organization [facility] Address [address] [place] [address] Care Team Providers Care Thermoscrew Operator Name Role Phone BEBE VELASCO M.D Primary Care Provider LIZANDRO Bean Unavailable [phone] Allergies Allergen (clinical drug ingredient) Drug/Non Drug Allergy documented on EMR Reaction Allergy Type Onset Date Status 12 Hour Nasal [place] Unknown Drug Allergy Active risedronate Actonel Unknown [...] Status Risk Notes Problem Postmenopausal atrophic vaginitis (46911859) Postmenopausal atrophic vaginitis (N95.2) Active confirmed Problem Age-related osteoporosis (383692997) Age-related osteoporosis without current pathological fracture (M81.0) Active confirmed Problem Essential hypertension (19447651) Essential (primary) hypertension (I10) Active confirmed Problem Hyperlipidemia (20783917) Hyperlipidemia, unspecified (E78.5) Active confirmed Problem Uncomplicated asthma (disorder) (734595106) Unspecified asthma, uncomplicated (J45.909) Active confirmed Problem Gastro-esophageal reflux disease without esophagitis (344065852) Gastro-esophageal reflux disease without esophagitis (K21.9) Active confirmed Plan Of Treatment No Information Insurance Providers Payer Name Payer Address Payer Phone Subscriber Number Group Number Insured Name Patient Relationship to Insured Coverage Start Date Coverage End Date MEDICARE [address] [facility], [place] [id number] JORGITO MANCILLA Self - patient is the [...]
== END 2024-06-01 12:10 | disposition home or self-care (01) ==
LOC: HO.HOP 11:19
PROVIDERS: PCP Nurse Practitioner Family; Visit Provider Clinical Nurse Specialist Psychiatric/Mental Health
DX: F41.0 Panic disorder [episodic paroxysmal anxiety] (principal); F43.12 Post-traumatic stress disorder, chronic
CPT/HCPCS: 99214

== ENCOUNTER → 2024-06-02 07:41 | Outpatient (REF) | payer OTHER, SELFPAY ==
--- OUTSIDE RECORDS SUMMARY | 2024-06-02 07:45 | XMS_ITS | Clinical Summary ---
Author Organization [facility] Address [address] [place] [address] Phone Care Team Providers Care Harvesting Contractor Name Role Phone Sachin Linares NP Primary [...] for left slight decrease in right hand cokeman at 4+/5 -. Gait is steady. Review [...] hand and has an appointment to see [facility] on July 14. She is welcome to see us in the future if there are any new concerns. Assessment & Plan (04/28/2024 11:43 AM EDT): Who describes left-sided upper posterior neck pain with some radiation to the skull. I was not able to reproduce it by palpating the left skull base. She is neurologically intact. X-rays of the cervical spine from [facility] dated 2024 show good position of her C4-5 and C5-C6-C7 plates but there does not appear to be robust bone growth across the disc spaces. I will discuss with Dr. Rodriguez and likely order a bone growth stimulator. Meantime, she is going to get in contact with [facility]. We talked about acupuncture and [...] Description 04/28/2024 11:00 AM EDT Office Visit [address] [address] Chuck Atkins PA Cervical spondylosis (Primary Dx) 04/21/[address] [address] Jenise Lewis MA Results 04/19/[address] [address] Corrine Galvan MA from Last [...] Procedure Name Priority Date/Time Associated Diagnosis Comments [facility] DEXA AXIAL SKELETON Routine 02/02/2018 9:04 AM EST Encounter for screening for osteoporosis [facility] SCREENING DIGITAL Routine 02/02/2018 8:35 AM EST Encounter for screening mammogram for malignant neoplasm of breast from Last 3 Months or Most Recently Relevant to Health Maintenance Results * [facility] DEXA AXIAL SKELETON (02/02/2018 9:04 AM EST) Anatomical Region Laterality Modality Mammography 02/02/2018 7:11 AM EST Narrative 02/02/2018 9:04 AM EST [facility] Diagnostic Imaging Department [address] [place] [address] Patient: ??ADALI HOLMAN I ?/Age/Sex: 1950 - 67 - F Unit#: ??[id number] ? Location/Status: ??SPDIMAM/REG CLI ? Mnemonic/Ordering Site: ??MAMDEXAAX/SPMAM Ordering Physician: ??KATERINA TOLBERT MD [facility] Dexa Axial Skeleton - 02/02/18748 HISTORY: [...] probability of hip fracture of 11.3%. Code 06211 Dictating Physician: ??GALINA KUO MD Electronically Signed by: ??GALINA KUO MD Dic Date/Time: ??02/02/18901 Sign date/Time: ??02/02/18903 Procedure Note Galina Kuo MD - 01/29/2022 [facility] Diagnostic Imaging Department [address] [place] [address] Patient: ADALI HOLMAN Hari /Age/Sex: 1950 - 67 - F Unit#: [id number] Location/Status: [facility]/REG I Mnemonic/Ordering Site: [facility] Ordering Physician: KATERINA TOLBERT MD [facility] Dexa Axial Skeleton - 02/02/18748 HISTORY: [...] density of the femurs bilaterally is 0.707 gm/go2auaeg is 70% of that of young normals [...] probability of hip fracture of 11.3%. Code 29577 Dictating Physician: GALINA KUO MD Electronically Signed by: GALINA KUO MD Dic Date/Time: 02/02/18901 Sign date/Time: 02/02/18903 us Katerina Tolbert MD IMG BI PROCEDURES Final Re sult * DIMAS SCREENING DIGITAL (02/02/2018 8:35 AM EST) Anatomical Region Laterality Modality Mammography 02/02/2018 7:10 AM EST Narrative 02/02/2018 8:35 AM EST [facility] Diagnostic Imaging Department [address] [place] [address] Patient: ??ADALI HOLMAN I ?/Age/Sex: 1950 67 - F Unit#: ??[id number] ? Location/Status: ??SPDIMAM/[facility] CLI ? Mnemonic/Ordering Site: ??DIGSC/SPMAM Ordering Physician: ??JEANETTE CARRERA MD [facility] Screening Digital - 02/02/1849 INDICATION: SCREENING COMPARISON: [facility] mammograms dating back to ?? 01/12/2013 FINDINGS: CC and MLO views of the breasts were obtained, using full field digital mammography with 3D tomosynthesis views in the MLO projection. Computer aided detection with the FrameBlast 7.2-H was employed. Benign bilateral breast biopsies [...] date for the next mammogram. (G0202 / 64310) , ??68840 Dictating Physician: ??TONI SHRESTHA MD Electronically Signed by: ??TONI SHRESTHA MD Dic Date/Time: ??02/02/18829 Sign date/Time: ??02/02/18834 Procedure Note Toni Shrestha MD - 01/29/2022 [facility] Diagnostic Imaging Department [address] [place] [address] Patient: ADALI HOLMAN I /Age/Sex: 1950 - 67 - F Unit#: [id number] Location/Status: [facility] CLI Mnemonic/Ordering Site: [facility] Ordering Physician: JEANETTE CARRERA MD [facility] Screening Digital - 02/02/18 - 0749 INDICATION: SCREENING COMPARISON: [facility] mammograms dating back to 01/12/2013 FINDINGS: CC and MLO views of the breasts were obtained, using full field digital mammography with 3D tomosynthesis views in the MLO projection. Computeraided detection with the FrameBlast 7.2-H was employed. Benign bilateral breast biopsies [...] date for the next mammogram. 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
--- OUTSIDE RECORDS SUMMARY | 2024-06-02 07:45 | XMS_ITS | Patient Health Record ---
Author Organization [facility] Address [address] [place] [address] Care Team Providers Care Fast Food Manager Name Role Phone BEBE VELASCO M.D Primary Care Provider LIZANDRO Bean Unavailable [phone] Allergies Allergen (clinical drug ingredient) Drug/Non Drug Allergy documented on EMR Reaction Allergy Type Onset Date Status 12 Hour Nasal [place] Unknown Drug Allergy Active risedronate Actonel Unknown [...] Status Risk Notes Problem Postmenopausal atrophic vaginitis (86878471) Postmenopausal atrophic vaginitis (N95.2) Active confirmed Problem Age-related osteoporosis (887244030) Age-related osteoporosis without current pathological fracture (M81.0) Active confirmed Problem Essential hypertension (40616328) Essential (primary) hypertension (I10) Active confirmed Problem Hyperlipidemia (29881911) Hyperlipidemia, unspecified (E78.5) Active confirmed Problem Uncomplicated asthma (disorder) (685300761) Unspecified asthma, uncomplicated (J45.909) Active confirmed Problem Gastro-esophageal reflux disease without esophagitis (815784120) Gastro-esophageal reflux disease without esophagitis (K21.9) Active confirmed Plan Of Treatment No Information Insurance Providers Payer Name Payer Address Payer Phone Subscriber Number Group Number Insured Name Patient Relationship to Insured Coverage Start Date Coverage End Date MEDICARE [address] [facility] [place], [place] [id number] JORGITO MANCILLA Self - patient is the [...]
--- NOTE | 2024-06-02 07:49 | CA_ITS ---
Transthoracic Echocardiogram Patient (Last, First, Middle): Adali Holman I Gender: Female Date of : 1950 Age: 74 Procedure Date: 06/02/2024 Procedure Type: Transthoracic Echocardiogram Location: OP Height: 149.86 cm Weight: 72.58 kg BSA: 1.68 m2 Heart Rate: bpm BP: 130 / 82 mmHg Lav Crewman: TO Referring MD: Maikel Yadav MD Symptoms: R06.02 - Shortness of breath Study Quality: Adequate ECG Rhythm: Sinus Conclusions: - The left ventricular systolic function is normal. The calculated ejection fraction is 61% by biplane method. - No obvious valvular pathology seen on this study. Findings Left Ventricle Normal left ventricular cavity size. There is normal left ventricular wall thickness. The left ventricular systolic function is normal. The calculated ejection fraction is 61% by biplane method. There is no evidence of regional wall motion abnormalities. Diastolic function is normal for age. LV peak GLS -19.9%. Right Ventricle Normal right ventricular cavity size and systolic function. Atria Both atria are normal in size. Aortic Valve There is a normal trileaflet aortic valve. There is no aortic valve stenosis. There is no aortic valve regurgitation. Mitral Valve The mitral valve appears normal. There is no mitral valve regurgitation. There is no mitral valve stenosis. Pulmonic Valve The pulmonic valve is likely normal. Tricuspid Valve There is trace tricuspid valve regurgitation. There is no evidence of pulmonary hypertension. Great Vessels The asc aorta is normal in size. Venous The inferior vena cava is normal in size and collapses greater than 50% with inspiration. Pericardium/Pleural There is no evidence of pericardial effusion. Prior Study Comparison No significant change compared to prior study dated: 05/09/2020. Recommendations, Care & Conclusions No obvious valvular pathology seen on this study. Measurements 2D Linear Measurements IVSd: 0.95 0.6-0.9/0.6-1.0 cm LVIDd: 4.13 3.9-5.3/4.2-5.9 cm LVIDd Index: 2.46 2.4-3.2/2.2-3.1 cm/m2 LVIDs: 3.02 2.0-3.6 cm LVPWd: 0.71 0.7-1.1 cm LA Diam: 3.10 2.7-3.8/3.0-4.0 cm LAIDs Index: 1.85 1.5-2.3 cm/m2 LV Mass: 128.19 67-162/88-224 g LV Mass Index: 76.30 43-95/49-115 g/m2 LVOT Diam: 2.10 3.0+(-)1.3 cm 2D Systolic Function EF 4C: 60.60 >55% EF 2C: 63.90 >55% EF BiP: 60.80 >55% Mitral Valve MV Pk E: 0.87 MV PK A: 0.99 MV Decel Time: 185.00 E/A: 0.90 E'Lateral: 6.85 E'Medial: 5.22 E/E' Med: 16.70 E/E' Lat: 12.80 PHT: 54.00 MVA PHT: 4.07 Decel [place]: 4.73 Aortic Valve AoV Pk Irvin: 1.28 AoV Mn Irvin: 0.91 AoV VTI: 0.32 AoV Pk Grad: 7.00 Aov Mn Grad: 4.00 RACEHL Cont.VTI: 2.46 LVOT LVOT Pk Irvin: 0.96 LVOT Mn Irvin: 0.63 LVOT VTI: 0.22 LVOT Pk Grad: 4.00 LVOT Mn Grad: 2.00 LVOT Diam: 2.10 LVOT Area: 3.46 Diastolic Function MV Pk E: 0.87 MV Pk A: 0.99 E/A: 0.90 E'Medial: 5.22 E/E' Med: 16.70 E' Laterial: 6.85 E/E' Lat: 12.80 Right Ventricle TAPSE (mm): 19.00 TVS' Irvin: 10.60 Tricuspid Valve TR Pk Irvin: 1.82 TR Pk Grad: 13.00 RA Press: 3.00 RVSP: 16.00 Great Vessels Aorta Sinus of Valsalva: 2.71 2.0-3.[address] [place]: 2.11 1.7-3.4 cm Ao Asc: 2.70 2.1-3.4 cm Updated in Other Vendor System with Status of Final Jason Guido MD electronically signed on 06/03/2024 12:01:14 PM with status of Final
== END ==
LOC: HO.CARD 07:41
PROVIDERS: PCP Nurse Practitioner Family; Visit Provider Internal Medicine Cardiovascular Disease
DX: R00.2 Palpitations (principal); R06.02 Shortness of breath
CPT/HCPCS: 93242; 93306

== ENCOUNTER → 2024-06-02 07:49 | Outpatient (BNV) | payer OTHER, SELFPAY | PROVIDERS: PCP Nurse Practitioner Family; Visit Provider Internal Medicine | DX: R06.02 Shortness of breath (principal) | CPT/HCPCS: 93306; 93356 ==

== ENCOUNTER 2024-06-16 16:46 | Outpatient (REF) | payer OTHER, SELFPAY ==
--- NOTE | ~2024-06-16 | MR_ITS ---
CLINICAL HISTORY: M79.641 - Pain in right hand --- Additional Notes or Special Instructions: eval rt ulnar sided hand pain. question of possible ulnar nerve MR right hand without contrast Comparison: DX/SR - XR HAND RT MIN 3V - 07/15/23 10:38 EDT CR/DC/SR - XR HAND RT MIN 3V - 09/03/22 13:58 EDT Findings: No bone marrow edema. Severe joint space narrowing and osteophytosis of the 1st carpometacarpal joint, Degenerative. No subluxation or dislocation. The musculature is normal in signal and bulk. Normal vessels. No joint effusion. No ligamentous injury Extensor tendons are intact and normal in signal without tenosynovitis. Status post release of the flexor retinaculum without evidence of regrowth or scarring. No increase in size or signal of the median or ulnar nerves. No definitive thickening of the flexor tendon sheaths or tendons. No tenosynovitis. Impression: No increase in size or signal of the ulnar nerve. This document has been electronically signed by: Jocelyn Jara MD on 06/17/2024 21:42:12
== END 2024-06-16 16:47 | disposition home or self-care (01) ==
LOC: HO.MRI 16:46
PROVIDERS: PCP Nurse Practitioner Family; Visit Provider Orthopaedic Surgery
DX: M79.641 Pain in right hand (principal); G56.21 Lesion of ulnar nerve, right upper limb
CPT/HCPCS: 73218

== ENCOUNTER → 2024-06-16 17:02 | Outpatient (BNV) | payer OTHER, SELFPAY | PROVIDERS: PCP Nurse Practitioner Family; Visit Provider Radiology Diagnostic Radiology | DX: M79.641 Pain in right hand (principal) | CPT/HCPCS: 73218 ==

== ENCOUNTER 2024-06-17 06:52 | Outpatient (REF) | payer OTHER, SELFPAY ==
--- OUTSIDE RECORDS SUMMARY | 2024-06-17 06:54 | XMS_ITS | Data Portability ---
Author Organization [place] - [facility], Allergy Address [address] [place] [phone] Care Team Providers Care Real Estate Subagent Name Role Phone BEBE VELASCO Primary Care Provider [phone] Assessment Encounter Date Assessment Date Assessment LastModified [...] Address Organization Details Recorded Time Bilateral tinnitus [id number] Active 2018 Tinnitus, bilateral ; Note: Date Diagnosed : 09/16/2018 9:36 AM (H93.13) Not Available [facility] 4 03:05:03 Sensorine ural hearing loss of bilateral ears 185223287 Active 2018 Sensorine ural hearing loss, bilateral ; Note: Date Diagnosed : 09/16/2018 9:36 AM (H90.3) Not Available [facility] 4 03:05:03 Migraine with aura 5246566 Active 2018 Migraine with aura, not intractab le, without status migrainos us; Note: Date Diagnosed : 09/16/2018 9:50 AM (G43.109) Not Available [facility] 4 03:05:05 Dizziness and giddiness 730786216 Active 2018 Dizziness and giddiness ; Note: Date Diagnosed : 09/16/2018 9:36 AM (R42) Not Available [facility] 4 03:05:03 Gastroeso phageal reflux disease without esophagit is 068227117 Active 2018 Gastro-es ophageal reflux disease without esophagit is; Note: Date Diagnosed : 09/16/2018 9:57 AM (K21.9) Not Available [facility] 4 03:05:03 Headache 80555539 Active 2018 Facial pain NOS; Note: Date Diagnosed : 09/16/2018 9:50 AM (R51) Not Available [facility] 4 03:05:02 Recurrent acute sinusitis 909400633 Active 2024 HARPREET HALEY MD [address] [place] [address], [place], [phone] , [place] - [facility] 5 16:29:55 Allergic rhinitis 26982809 Active 2024 HARPREET HALEY MD [address] [place] [address], [place], [phone] , [place] - [facility] 5 16:30:02 Problem Notes None recorded. Procedures Surgical History Date Name Laterality Status Provider Name and Address Organization Details Recorded Time 03/12/2024 Comp Audio with Tymps - 92843 & 36660 completed ADALI ASKEW [place], CCC-A [address] [address], [place], [address], [facility] - [facility] 03/12/2024 16:00:59 03/12/2024 NasalEndosc opy_DP completed HARPREET HALEY MD [address] [place] [address],[place] [address], [place], [address], [facility] 03/12/2024 16:29:37 Imaging Results Imaging Date Name Status LastModified by [employer] ation Details LastModified Time 03/15/2024 audiogram completed BARCODE Information no t available 03/15/2024 13:28:12 Procedure Notes None recorded. Medical Equipment None Reported. Allergies Allergen ID Allergen Name Allergen Category Reaction Reaction Severity Criticality Documentation Date Start Date Code Code System Note Provider Name and Address Organization Details Recorded Time 166042 tacrolimu s medicatio n Not available Not available Not available 03/12/2024 39129 RxNorm Zoraida Potvin null, [place] - [facility] 15:11:51 235803 Nexletol medicatio n Not available Not available Not available 03/12/2024 89676 09 RxNorm Zoraida Potvin [place] [facility] 15:12:16 377628 Miebo medicatio n Not available Not available Not available 03/12/2024 88326 52 RxNorm Zoraida Potvin [place] [facility] 15:12:27 685327 sulindac medicatio n Not available Not available Not available 03/12/2024 40131 RxNorm Zoraida Potvin null, [place] - [facility] 15:12:36 619772 Fosamax medicatio n Not available Not available Not available 03/12/2024 73185 5 RxNorm Zoraida Potvin [place], [place] - [facility] 5 15:12:46 576485 latex environme nt,medica tion Not available Not available Not available 03/12/2024 19214 91 RxNorm Zoraida Potvin franko [place] - [facility] 15:13:27 708040 Dexilant medicatio n Not available Not available Not available 03/12/2024 00890 1 RxNorm Zoraida abdul [facility] 15:13:54 064219 doxycycli ne Not available Not available Not available Not available 03/12/2024 3640 RxNorm Zoraida Marsh franko [facility] 15:14:23 Medications Name Sig Start Date [...] Smoking Status Former Smoker HARPREET HALEY MD [address] [place] [address], [place], [address], [facility] - [facility] 03/12/2024 09:06:30 How Much Tobacco Do You Smoke? 0.25 PPD dplosky Information not available 03/12/2024 Sex: Unknown Functional Status None recorded. Mental Status None recorded. Family History Nothing Reported. Medical History Condition Response Allergies/Hayfever Y Heart Problems Y Anxiety Y Tonsil Infections N Emphysema N Migraines N Thyroid Problems N Glaucoma N Developmental Delay N Depression N COPD N Nasal or Sinus Problems Y Anemia [...] SNOMED-CT Code Diagnosis ICD10 Code Diagnosis Note [id number] HARPREET HALEY MD [facility] [address] [address] 03/12/2024 14:19:20 03/12/2024 16:35:50 Sensorineural hearing loss of bilateral ears [id number] H90.3 Audiologic al evaluation results: Right ear: [...] maintain a hermetic seal}} Recurrent acute sinusitis 584463977 J01.91 Allergic rhinitis 481698 04 J30.9 Health Concerns Section Related Observation LastModified by Organization Detai ls LastModified Time None Recorded Concern Status LastModified by Organization Details LastModified Time None Recorded Advance Directives Directive None Recorded Payers Insurance Date Sequence Insurance Name Policy Number Policy Gill Covered Member ID Gill Member ID Guarantor Name 03/12/2024 1 [employer] (MEDICARE SUPPLEMENT) Adali I Houde [id number] Adali I Houde 03/12/2024 1 [place] [facility] Adali I Houde [id number] Adali I Houde 03/12/2024 1 [employer] Adali I Houde [id number] Adali I Houde 05/26/2024 1 [facility] - MEDICARE PREFERRED (MEDICARE REPLACEMENT HMO) HAM Adali I Houde [id number] Adali I Houde 05/26/2024 1 [facility] (MEDICARE REPLACEMENT/A DVANTAGE - PPO) [id number] Adali I Houde [id number] Adali I Houde Notes Date Note Type Note Provider Name [...] her sinus congestion symptoms HARPREET HALEY MD [address] [place] [address], [place], [address], [facility] - [facility] 03/12/2024 16:35:50 OBGyn Episode No OBEpisode recorded.
--- OUTSIDE RECORDS SUMMARY | 2024-06-17 06:55 | XMS_ITS | Encounter Summary ---
Author Organization [facility] Address [address] [place] [address] Care Team Providers Care Tie In Machine Operator Name Role Phone JhoanbrookeBebe NP Primary Care Provider Reason for Visit * Reason Comments Pain Mid back to arm and down arms pain Encounter Details Date Type Department Care Team ([facility] st Contact Info) Description 06/15/2024 3:15 PM EDT Office Visit Neurosurgery [facility] [address] [facility] [address] [place] [phone] Siria Choi PA [address] [facility], [facility] [address] [place] [address] Cervical spondylosis (Primary Dx) Social History Tobacco Use Types Packs/Day Years Used Date Smoking Tobacco: Former Cigarettes Smokeless Tobacco: Never Tobacco Cessation:Counseling Given: Not Answered Alcohol Use Standard Drinks/Week Comments No 0 (1 standard drink = 0.6 oz pur e alcohol) Comments Unknown Sex and Gender Information Value Date Recorded Sex Assigned at Not on file Legal Sex Female 7:57 PM EST Gender Identity Not on file Sexual Orientation Not on file documented as of this encounter Last Filed Vital Signs Vital Sign Reading Time Taken Comments Blood Pressure - - Pulse - - Temperature - - Respiratory Rate - - Oxygen Saturation - - Inhaled Oxygen Concentration - - Weight 72.1 kg (159 lb) 06/15/2024 3:20 PM EDT Height 149.9 cm (4' 11 ) 06/15/2024 3:20 PM EDT Body Mass Index 32.11 06/15/2024 3:20 PM EDT documented in this encounter Progress Notes * DIMITRY Umaña - 06/15/2024 4:39 PM EDTAssociated Problem(s): Cervical spondylosis Patient is s/p C4-5 ACDF with plating on 07/02/2022, s/p C5-6, C6-7 ACDF on 11/26/2012 and s/p Left C6-7 decompression and foraminotomy in July of 2009. She is following up after cervical spine MRI, at her last office visit she was having left-sided neck pain radiating to the left arm, that has improved since her visit. However about 12 days ago she was hanging something up on a hook with the right arm, since then has been having pain in the right neck, upper trapezius and numbness tingling to the distal right fifth finger. On past visits she has described symptoms in the right arm, numbness and pain to the right fifth digit as well,, has also seen orthopedics/hand surgeon, was told it was no t ulnar neuritis but does have follow-up with them for some issues with her wrist and hand. She notes if she tips her head in extension into the right she gets pain and numbness down the right arm. She has difficulty trying to open jars, feels she is dropping things with the right hand, is not sleeping well, cannot sleep on her back, has to sleep with inversion for GERD, if she tries sleeping on her left side and her head is tilted to the right it increases her right sided pain. She has been using her TENS unit, ibuprofen and Tylenol, Biofreeze, IcyHot and doing her home PT exercises. 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 She started using it May 10, 2024, hadto go off of it for a week while she was on the Holter monitor, is back to using it. C-spine MRI done yesterday at [facility] does not show any significant central or foraminal stenosis, including right C7-T1 (very mild right sided disc bulging at this level), moderate right C3-4 foraminal stenosis. I reviewed MRI images with patient in detail on the computer, we looked at her C-spine x-rays as well. I reviewed the MRI with Dr. Rodriguez while patient was here. Ms. Holman does not have any significant nerve root compression noted on MRI, Dr. Rodriguez is not recommending surgery at this time. I reminded her not to use any NSAIDs p.o. while we are trying to get C6-7 disc space fusion, she may try Voltaren topically. She has significant muscle spasm noted, follows up with pain management, may asked them to do trigger point injections on the right side. In the recent past they did an occipital block and trigger point injections on the left which seem to help her. She will be due for her 6-month follow-up x-ray October 2024 to see if she is getting some bone growth with the external bone stimulator at C6-7. We talked about conservative treatment options,think she can try to help with her muscle spasm and pain, PT exercises and stretches that help withposture and strengthening of the upper back and shoulder muscles. All questions answered, asked herto call with any concerns or questions. * DIMITRY Umaña - 06/15/2024 3:15 PM EDT NEUROSURGERY OFFICE VISIT Date of Visit: 06/15/2024 Referring Physician: Bebe Linares NP Primary Care Physician: BEBE LINARES NP RE: Adali Holman : 1950 Adali Holman is s/p C4-5 ACDF with plating on 07/02/2022, s/p C5-6, C6-7 ACDF on 11/26/2012 and s/pLeft C6-7 decompression and foraminotomy in July of 2009. She is following up after cervical spine MRI, at her last office visit she was having left-sided neck pain radiating to the left arm, that has improved since her visit. However about 12 days ago she was hanging something up on a hook with the right arm, since then has been having pain in the right neck, upper trapezius and numbness tingling to the distal right fifth finger. On past visits she has described symptoms in the right arm, numbness and pain to the right fifth digit as well,, has also seen orthopedics/hand surgeon, was told itwas not ulnar neuritis but does have follow-up with them for some issues with her wrist and hand. She notes if she tips her head in extension into the right she gets pain and numbness down the right arm. She has difficulty trying to open jars, feels she is dropping things with the right hand, is not sleeping well, cannot sleep on her back, has to sleep with inversion for GERD, if she tries sleeping on her left side and her head is tilted to the right it increases her right sided pain. She has been using her TENS unit, ibuprofen and Tylenol, Biofreeze, IcyHot and doing her home PT exercises. She had plain x-rays of the cervical spine that were reviewed at her last office visit and appears tohave pseudoarthrosis C6-7, is using an external bone stimulator. She started using it May 10, 2024, had to go off of it for a week while she was on the Holter monitor, is back to using it. Past Medical History: Diagnosis Date Abnormal MRA, brain 01/16/2017 DX:Abnormal MRA, brain; COMMENT: Repeat 07/18/16 - Stable 2 mm vascular excrescence Actinic keratoses 01/16/2017 DX:Actinic keratoses Allergic rhinitis 10/16/2016 DX:Allergic rhinitis Anxiety 01/16/2017 DX:Anxiety Asthma 09/12/2016 DX:Asthma GERD (gastroesophageal reflux disease) 01/16/2017 DX:GERD (gastroesophageal reflux disease) Hyperlipidemia 01/16/2017 DX:Hyperlipidemia Hypertension 01/16/2017 DX:Hypertension Lung nodule < 6cm on CT 01/16/2017 DX:Lung nodule < 6cm on CT; COMMENT: 02/06/15 CT Malignant tumor of cervix (CMS/HCC V24, CMS/HCC V28) 01/16/2017 DX:Malignant tumor of cervix (HCC); COMMENT: Per transfer records Obstructive sleep apnea syndrome 09/12/2016 DX:Obstructive sleep apnea syndrome Psoriasis 01/16/2017 DX:Psoriasis Thyroid nodule 01/16/2017 DX:Thyroid nodule; COMMENT: 12/19/16 US - small nodules bilaterally. Continued US surveillance recommended Past Surgical History: Procedure Laterality Date ELBOW SURGERY 08/2007 PROCEDURE: HISTORICAL ELBOW SURGERY; COMMENT: Cubital tunnel release HYSTERECTOMY 1978 PROCEDURE: HISTORICAL HYSTERECTOMY NECK SURGERY 07/2009 PROCEDURE: HISTORICAL NECK SURGERY; COMMENT: Left C6-7 decompression and foraminotomy, Dr. Rodriguez NECK SURGERY 07/02/2022 PROCEDURE: HISTORICAL NECK SURGERY; COMMENT: C4-5 ACDF, Dr. Rodriguez NECK SURGERY 11/26/2012 PROCEDURE: HISTORICAL NECK SURGERY; COMMENT: C5-6, C6-7 ACDF, Dr. Rodriguez OTHER SURGICAL HISTORY PROCEDURE: ---- OTHER ----; COMMENT: nasal septoplasty and turbinoplasty Current Outpatient Medications Medication Instructions aspirin 81 mg, Daily cetirizine (ZYRTEC) 10 mg, Daily cyclobenzaprine (FLEXERIL) 5 mg tablet Take by mouth. flunisolide (NASALIDE) 25 mcg (0.025 %) spray,non-aerosol USE 2 SPRAYS NASALLY TWICE DAILY FOR NASAL CONGESTION/RHINORRHEA hydroCHLOROthiazide 12.5 mg, Daily ibuprofen (ADVIL,MOTRIN) 600 mg tablet TAKE 1 TABLET EVERY 8 HOURSAS NEEDED FOR PAIN. TAKE ITWITH FOOD AND FULL GLASS OFWATER levalbuterol (XOPENEX HFA) 45 mcg/actuation inhaler 2 PUFF INHALED EVERY 4 HOURS NEEDED FOR FOR WHEEZING LORazepam (ATIVAN) 0.5 mg tablet take 1 tablet orally daily as needed for anxiety losartan (COZAAR) 50 mg tablet montelukast (SINGULAIR) 10 mg, Daily pantoprazole (PROTONIX) 40 mg, 2 times daily Qvar RediHaler 80 mcg/actuation HFA aerosol breath activated inhaler INHALE 1 PUFF TWICE DAILY FOR 30 DAYS Repatha SureClick 140 mg/mL pen injector injection INJECT 140 MG SUBCUTANEOUSLY EVERY 2 WEEKS Restasis 0.05 % ophthalmic emulsion INSTILL 1 DROP IN BOTH EYE TWICE A DAY sucralfate (CARAFATE) 1 gram tablet take 1 tablet by mouth 2 times a day for 90 days tacrolimus (PROTOPIC) 0.1 % ointment APPLY TWICE DAILY TO EYELID DERMATITIS NEEDED EXAM: On exam, she is awake and alert. Speech and comprehension is intact. Respirations are unlabored. Motor exam reveals good strength to resistance bilaterally 5/5. Reflexes WNL, no hyperreflexia. She has significant spasm in the right trapezius, notes some pain with right proximal muscle testing with o ccasional giveaway weakness. When I put some light pressure/massage over the right upper trap muscles, it would reproduce some of her right arm symptoms. She noted some reproduction of symptoms as well with right Spurling's. Pt is ambulating independently. IMAGING: Results for orders placed during the hospital encounter of 06/14/24 MR Cervical Spine wo Contrast HISTORY: severe right arm pain, S/P C5-7 fusion. COMPARISON: Radiographs dated 07/04/2023. MRI dated 06/11/2022. FINDINGS: Mild mucosal thickening in the sphenoid sinuses. Visualized portions of the brain and skull base are otherwise unremarkable. The paraspinous soft tissues are normal. Susceptibility artifact secondary to anterior fusion hardware from C4 through C7. No appreciable marrow infiltrative lesion. Alignment is within normal limits. Evaluation of the cord is limited by motion. Ill-defined signal abnormality in the right central and dorsal cord at C4-5, which appears similar to the previous examination. Cervical disc levels: C2-3: No significant disc or facet abnormality. No spinal or foraminal stenosis. C3-4: Moderate endplate irregularity. Small left and moderate right uncovertebral spurs. Small right central endplate osteophytes with flattening of the anterior cord. No significant spinal stenosis.Moderate right and mild left foraminal stenosis. C4-5: Fusion level. Small bilateral uncovertebral spurs and minimal degenerative irregularity of the facet joints. No spinal stenosis. Mild bilateral foraminal stenosis. C5-6: Fusion level. The endplates are obscured by susceptibility artifact. No spinal or foraminal stenosis. C6-7: Fusion level. Small left uncovertebral spurs. Mild left foraminal stenosis. No spinal stenosis. C7-T1: No significant disc or facet abnormality. No spinal or foraminal stenosis. Impression Anterior fusion from C4 through C7. Stable ill-defined signal abnormality in the right central cord at C4-5. Degenerative changes as detailed above. Problem List Items Addressed This Visit Cervical spondylosis - Primary Patient is s/p C4-5 ACDF with plating on 07/02/2022, s/p C5-6, C6-7 ACDF on 11/26/2012 and s/p Left C6-7 decompression and foraminotomy in July of 2009. She is following up after cervical spine MRI, at her last office visit she was having left-sided neck pain radiating to the left arm, that has improved since her visit. However about 12 days ago she was hanging something up on a hook with the right arm, since then has been having pain in the right neck, upper trapezius and numbness tingling to the distal right fifth finger. On past visits she has described symptoms in the right arm, numbness and pain to the right fifth digit as well,, has also seen orthopedics/hand surgeon, was told it was no t ulnar neuritis but does have follow-up with them for some issues with her wrist and hand. She notes if she tips her head in extension into the right she gets pain and numbness down the right arm. She has difficulty trying to open jars, feels she is dropping things with the right hand, is not sleeping well, cannot sleep on her back, has to sleep with inversion for GERD, if she tries sleeping on her left side and her head is tilted to the right it increases her right sided pain. She has been using her TENS unit, ibuprofen and Tylenol, Biofreeze, IcyHot and doing her home PT exercises. 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 She started using it May 10, 2024, hadto go off of it for a week while she was on the Holter monitor, is back to using it. C-spine MRI done yesterday at [facility] does not show any significant central or foraminal stenosis, including right C7-T1 (very mild right sided disc bulging at this level), moderate right C3-4 foraminal stenosis. I reviewed MRI images with patient in detail on the computer, we looked at her C-spine x-rays as well. I reviewed the MRI with Dr. Rodriguez while patient was here. Ms. Holman does not have any significant nerve root compression noted on MRI, Dr. Rodriguez is not recommending surgery at this time. I reminded her not to use any NSAIDs p.o. while we are trying to get C6-7 disc space fusion, she may try Voltaren topically. She has significant muscle spasm noted, follows up with pain management, may asked them to do trigger point injections on the right side. In the recent past they did an occipital block and trigger point injections on the left which seem to help her. She will be due for her 6-month follow-up x-ray October 2024 to see if she is getting some bone growth with the external bone stimulator at C6-7. We talked about conservative treatment options,think she can try to help with her muscle spasm and pain, PT exercises and stretches that help withposture and strengthening of the upper back and shoulder muscles. All questions answered, asked herto call with any concerns or questions. All questions answered. she will call with any questions. Time spent 35 minutes, time spent includes reviewing history, exam, imaging, plan, patient counseling. DIMITRY Umaña on 06/15/2024 at 4:41 PM EDT [facility] documented in this encounter Plan of Treatment Not on file documented as of this encounter Visit Diagnoses Diagnosis Cervical spondylosis- Primary Cervical spondylosis without myelopathy documented in this encounter Historical Medications * This list may reflect changes made after this encounter. cyclobenzaprine (FLEXERIL) 5 mg tablet Take by mouth. levalbuterol (XOPENEX HFA) 45 mcg/actuation inhaler 2 PUFF INHALED EVERY 4 HOURS NEEDED FOR FOR WHEEZING 06/10/2024 hydroCHLOROthia zide 12.5 mg tablet Take 1 tablet (12.5 mg total) by mouth 1 (one) time each day. 05/13/2024 Repatha SureClick 140 mg/mL pen injector injection INJECT 140 MG SUBCUTANEOUSLY EVERY 2 WEEKS 05/25/2024 added in this encounter Care Teams Tie In Machine Operator Relationship Specialty Start Date End Date Bebe Linares NP [address] [facility] [place] PCP - General 05/31/22 documented as of this encounter
--- OUTSIDE RECORDS SUMMARY | 2024-06-17 06:55 | XMS_ITS | Clinical Summary ---
Author Organization [facility] Address [address] [place] [address] Phone Care Team Providers Care Automatic Washer Mechanic Name Role Phone Sachin Linares NP Primary [...] Active flunisolide (NASALIDE) 25 mcg (0.025 %) spray,non-aero mimi USE 2 SPRAYS NASALLY TWICE DAILY FOR NASAL CONGESTION/RHINORR HEA 4 Active Qvar RediHaler 80 mcg/actuation HFA aerosol breath activated inhaler INHALE 1 PUFF TWICE DAILY FOR 30 DAYS Active aspirin 81 mg chewable tablet Chew 1 tablet (81 mg total) 1 (one) time each day. Active cetirizine (ZyrTEC) 10 mg tablet Take 1 tablet (10 mg total) by mouth 1 (one) time each day. Active Repatha SureClick 140 mg/mL pen injector injection INJECT 140 MG SUBCUTANEOUSLY EVERY 2 WEEKS 5 Active hydroCHLOROthi azide 12.5 mg tablet Take 1 tablet (12.5 mg total) by mouth 1 (one) time each day. 5 Active levalbuterol (XOPENEX HFA) 45 mcg/actuation inhaler 2 PUFF INHALED EVERY 4 HOURS NEEDED FOR FOR WHEEZING 5 Active cyclobenzaprin e (FLEXERIL) 5 mg tablet Take by mouth. Activ e Active Problems Problem Noted Date Diagnosed Date Cervical spondylosis 02/27/2021 Overview (04/28/2024): Last Assessment & Plan: Ms. 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 Gait is steady. Review [...] hand and has an appointment to see [facility] on July 14. She is welcome to see us in the future if there are any new concerns. 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 She started using it May 10, 2024, had to go off of it for a week while she was on the Holter monitor, is back to using it. C-spine MRI done yesterday at [facility] does not show any significant central or foraminal stenosis, including right C7-T1 (very mild right sided disc bulging at this level), moderate right C3-4 foraminal stenosis. I reviewed MRI images with patient in detail on the computer, we looked at her C-spine x-rays as well. I reviewed the MRI with Dr. Rodriguez while patient was here. Ms. Mancilla does not have any significant nerve root [...] at C6-7. We talked about conservative treatment options, think she can try to help with her muscle spasm and pain, PT exercises and stretches that help with posture and strengthening of the upper back and shoulder muscles. All questions answered, asked her to call with any concerns or questions. Assessment & Plan (04/28/2024 11:43 AM EDT): Who describes left-sided upper posterior neck pain with some radiation to the skull. I was not able to reproduce it by palpating the left skull base. She is neurologically intact. X-rays of the cervical spine from [facility] dated 2024 show good position of her C4-5 and C5-C6-C7 plates but there does not appear to be robust bone growth across the disc spaces. I will discuss with Dr. Rodriguez and likely order a bone growth stimulator. Meantime, she is going to get in contact with [facility]. We talked about acupuncture and [...] regarding her obtaining a bone growth stimulator. Sensorineural hearing loss (SNHL) of both ears 0 09/16/2018 Overview (06/14/2024): Sensorineural hearing loss, bilateral; Note: Date Diagnosed: 09/16/2018 9:36 AM (H90.3) Migraine with aura 09/16/2018 Overview (06/14/2024): Migraine with aura, not intractable, without status migrainosus; Note: Date Diagnosed: 09/16/2018 9:50 AM (G43.109) Hypertension 01/16/2017 Hyperlipidemia 01/16/2017 GERD (gastroesophageal reflux disease) 7 Anxiety 01/16/2017 Asthma 09/12/2016 Encounters Date Type Department Care Team Description 06/15/2024 3:15 PM EDT Office Visit Neurosurgery [facility] [address] [place] [address] Siria Choi PA Cervical spondylosis (Primary Dx) 06/14/2024 6:04 PM EDT - 06/14/2024 11:59 PM EDT Hospital Encounter [facility] MRI [address] [place] [phone] Cervical radiculopathy Discharge Disposition: Home or Self Care 06/09/2024 Telephone Neurosurgery [facility] [address] [phone] Jenise Lewis MA Appointment ([employer] No auth required for C/Spine MRI faxed over to [facility]. They will contact pt w/appt. ) 06/08/2024 Telephone Neurosurgery [address] [phone] Corrine Galvan MA 04/28/2024 11:00 AM EDT Office Visit [address] [phone] Chuck Atkins PA Cervical spondylosis (Primary Dx) 04/21/[address] [phone] Jenise Lewis MA Results 04/19/[address] [phone] Corrine Galvan MA from Last 3 Months [...] SURGERY; COMMENT: C5-6, C6-7 ACDF, Dr. Rodriguez Medical History Medical History Date Comments [...] Mass Index 32.11 06/15/2024 3:20 PM EDT Plan of Treatment Health Maintenance [...] Procedure Name Priority Date/Time Associated Diagnosis Comments MR CERVICAL SPINE WO CONTRAST Routine 06/14/2024 7:14 PM EDT Cervical radiculopathy [facility] DEXA AXIAL SKELETON Routine 02/02/2018 9:04 AM EST Encounter for screening for osteoporosis [facility] SCREENING DIGITAL Routine 02/02/2018 8:35 AM EST Encounter for screening mammogram for malignant neoplasm of breast from Last 3 Months or Most Recently Relevant to Health Maintenance Results * MR Cervical Spine wo Contrast (06/14/2024 7:14 PM EDT) Anatomical Region Laterality Modality C-spine, Spine Magnetic Resonan ce 06/15/2024 8:00 AM EDT Impressions 06/15/2024 10:50 AM EDT Anterior fusion from C4 through C7. Stable ill-defined signal abnormality in the right central cord at C4-5. Degenerative changes as detailed above. -------- FINAL REPORT -------- Dictated By: Israel Jung Dictated Date: 06/15/2024 08:00 ET Assigned Physician: Israel Jung Reviewed and Electronically Signed By: Israel Jung Signed Date: 06/15/2024 10:50 ET Workstation ID: [id number] Transcribed By: Self Edit Transcribed Date: 06/15/2024 08:04 ET Narrative 06/15/2024 10:50 AM EDT PROCEDURE: MRI of the cervical spine without intravenous contrast. TECHNIQUE: Sagittal and axial multisequence MRI of the cervical spine without intravenous contrast administration. HISTORY: severe right arm pain, S/P C5-7 fusion. COMPARISON: Radiographs dated 07/04/2023. ??MRI dated 06/11/2022. FINDINGS: Mild mucosal thickening in the sphenoid sinuses. ??Visualized portions of the brain and skull base are otherwise unremarkable. The paraspinous soft tissues are normal. Susceptibility artifact secondary to anterior fusion hardware from C4 through C7. ??No appreciable marrow infiltrative lesion. ??Alignment is within normal limits. Evaluation of the cord is limited by motion. ??Ill-defined signal abnormality in the right central and dorsal cord at C4-5, which appears similar to the previous examination. Cervical disc levels: C2-3: No significant disc or facet abnormality. ??No spinal or foraminal stenosis. C3-4: Moderate endplate irregularity. ??Small left and moderate right uncovertebral spurs. ??Small right central endplate osteophytes with flattening of the anterior cord. ??No significant spinal stenosis. ??Moderate right and mild left foraminal stenosis. C4-5: Fusion level. ??Small bilateral uncovertebral spurs and minimal degenerative irregularity of the facet joints. ??No spinal stenosis. ??Mild bilateral foraminal stenosis. C5-6: Fusion level. ??The endplates are obscured by susceptibility artifact. ??No spinal or foraminal stenosis. C6-7: Fusion level. ??Small left uncovertebral spurs. ??Mild left foraminal stenosis. ??No spinal stenosis. C7-T1: No significant disc or facet abnormality. ??No spinal or foraminal stenosis. Procedure Note Israel Jung MD - 06/15/2024 PROCEDURE: MRI of the cervical spine without intravenous contrast. TECHNIQUE: Sagittal and axial multisequence MRI of the cervical spinewithout intravenous contrast administration. HISTORY: severe right arm pain, S/P C5-7 fusion. COMPARISON: Radiographs dated 07/04/2023. MRI dated 06/11/2022. FINDINGS: Mild mucosal thickening in the sphenoid sinuses. Visualized portions ofthe brain and skull base are otherwise unremarkable. The paraspinous soft tissues are normal. Susceptibility artifact secondary to anterior fusion hardware from M1sldqvxh C7. No appreciable marrow infiltrative lesion. Alignment iswithin normal limits. Evaluation of the cord is limited by motion. Ill-defined signalabnormality in the right central and dorsal cord at C4-5, which appearssimilar to the previous examination. Cervical disc levels: C2-3: No significant disc or facet abnormality. No spinal or foraminalstenosis. C3-4: Moderate endplate irregularity. Small left and moderate rightuncovertebral spurs. Small right central endplate osteophytes withflattening of the anterior cord. No significant spinal stenosis.Moderate right and mild left foraminal stenosis. C4-5: Fusion level. Small bilateral uncovertebral spurs and minimaldegenerative irregularity of the facet joints. No spinal stenosis. Mildbilateral foraminal stenosis. C5-6: Fusion level. The endplates are obscured by susceptibilityartifact. No spinal or foraminal stenosis. C6-7: Fusion level. Small left uncovertebral spurs. Mild left foraminalstenosis. No spinal stenosis. C7-T1: No significant disc or facet abnormality. No spinal or foraminalstenosis. IMPRESSION: Anterior fusion from C4 through C7. Stable ill-defined signal abnormality in the right central cord at C4-5. Degenerative changes as detailed above. -------- FINAL REPORT -------- Dictated By: Israel Jung Dictated Date: 06/15/2024 08:00 ET Assigned Physician: Israel Jung Reviewed and Electronically Signed By: Israel Jung Signed Date: 06/15/2024 10:50 ET Workstation ID: [id number] Transcribed By: Self Edit Transcribed Date: 06/15/2024 08:04 ET us Siria MORAES IMG MRI PROCEDURES Final R esult * [facility] DEXA AXIAL SKELETON (02/02/2018 9:04 AM EST) Anatomical Region Laterality Modality Mammography 02/02/2018 7:11 AM EST Narrative 02/02/2018 9:04 AM EST [facility] Diagnostic Imaging Department [address] [place] [address] Patient: ??ADALI MANCILLA I ?/Age/Sex: 1950 - 67 - F Unit#: ??[id number] ? Location/Status: ??SPDIMAM/REG CLI ? Mnemonic/Ordering Site: ??MAMDEXAAX/SPMAM Ordering Physician: ??KATERINA TOLBERT MD [facility] Dexa Axial Skeleton - 02/02/18 - 49 HISTORY: ??The patient is a 67-year-old postmenopausal [...] probability of hip fracture of 11.3%. Code 50449 Dictating Physician: ??GALINA RIVERO MD Electronically Signed by: ??GALINA RIVERO MD Dic Date/Time: ??02/02/18901 Sign date/Time: ??02/02/18903 Procedure Note Galina Rivero MD - 01/29/2022 [facility] Diagnostic Imaging Department [address] [place] [address] Patient: ADALI MANCILLA Hari /Age/Sex: 1950 67 - F Unit#: [id number] Location/Status: [facility] CLI [facility] Ordering Physician: KATERINA TOLBERT MD [facility] Dexa Axial Skeleton - 02/02/18748 [...] density of the femurs bilaterally is 0.707 gm/yk3dszgb is 70% of that of young normals [...] probability of hip fracture of 11.3%. Code 87589 Dictating Physician: GALINA RIVERO MD Electronically Signed by: GALINA RIVERO MD Dic Date/Time: 02/02/18901 Sign date/Time: 02/02/18903 us Katerina Tolbert MD IMG BI PROCEDURES Final Re sult * [facility] SCREENING DIGITAL (02/02/2018 8:35 AM EST) Anatomical Region Laterality Modality Mammography 02/02/2018 7:10 AM EST Narrative 02/02/2018 8:35 AM EST [facility] Diagnostic Imaging Department [address] [place] [address] Patient: ??ADALI MANCILAL I ?/Age/Sex: 1950 67 - Unit#: ??[id number] ? Location/Status: ??SPDIMAM/REG CLI ? Mnemonic/Ordering Site: ??DIGSC/SPMAM Ordering Physician: ??JEANETTE CARRERA MD [facility] Screening Digital - 02/02/18 - 0749 INDICATION: SCREENING COMPARISON: [facility] mammograms dating back to ?? 01/12/2013 FINDINGS: CC and MLO views of the breasts were obtained, using full field digital mammography with 3D tomosynthesis views in the MLO projection. Computer aided detection with the [employer] 7.2-H was employed. Benign bilateral breast biopsies [...] date for the next mammogram. (G0202 / [id number]) , ??[id number] Dictating Physician: ??TONI MORA MD Electronically Signed by: ??TONI MORA MD Dic Date/Time: ??02/02/18829 Sign date/Time: ??02/02/18834 Procedure Note Toni Mora MD - 01/29/2022 [facility] Diagnostic Imaging Department [address] [place] [address] Patient: ADALI MANCILLA I /Age/Sex: 1950 - 67 - F Unit#: [id number] Location/Status: SPDIMAM/REG CLI Mnemonic/Ordering Site: [facility] Ordering Physician: JEANETTE CARRERA MD [facility] Screening Digital - 02/02/18 - 0749 INDICATION: SCREENING COMPARISON: [facility] mammograms dating back to 01/12/2013 FINDINGS: CC and MLO views of the breasts were obtained, using full field digital mammography with 3D tomosynthesis views in the MLO projection. Computeraided detection with the [employer] 7.2-H was employed. Benign bilateral breast biopsies [...] a target date for the next mammogram. G0137 / [id number]) , [id number] Dictating Physician: TONI MORA MD Electronically Signed by: TONI MORA MD Dic Date/Time: 02/02/1841 Sign date/Time: 02/02/1806 Jeanette Carrera MD IMG BI PROCEDURES Final Resu lt from Last 3 Months or Most Recently Relevant to Health Maintenance Insurance [employer] Advance Directives Documents on File Type Date Recorded Patient Acid Splicer Expl anation Health Care Decision (hx) 07/02/2022 [...] (hx) 07/18/2009 AD HERNANDEZ DIRECTIVE Care Teams Automatic Washer Mechanic Relationship Specialty Start Date End Date Sachin Linares NP [address], [place] PCP - General 05/31/22
--- OUTSIDE RECORDS SUMMARY | 2024-06-17 06:55 | XMS_ITS | Encounter Summary ---
Author Organization [facility] Address [address] [place] [address] Care Team Providers Care Au Pair Name Role Phone Sachin Linares NP Primary Care Provider [phone] Reason for Referral * Imaging (Routine) - Authorized Specialty Diagnoses / Procedures Referred By Contac t Referred To Contact Radiology Diagnoses Cervical radiculopathy Procedures MR Cervical Spine wo Contrast Siria Choi PA [address] [facility], [address] [address] Phone: tel: fax: [facility] [address] [place] [address] Phone: tel: Referral ID Status Reason Start Date Expiration Date V isits Requested Visits Authorized [id number] Authorized 06/08/2024 06/08/2025 1 1 Reason for Visit * Imaging (Routine) - Authorized Specialty Diagnoses / Procedures Referred By Contac t Referred To Contact Radiology Diagnoses Cervical radiculopathy Procedures MR Cervical Spine wo Contrast Siria Choi PA [address] [facility], [address] [place] [address] Phone: tel: fax: [facility] [address] [place] [address] Phone: tel: Referral ID Status Reason Start Date Expiration Date V isits Requested Visits Authorized [id number] Authorized 06/08/2024 06/08/2025 1 1 Encounter Details Date Type Department Care Team (Latest Contact Info) Description 06/14/2024 6:04 PM EDT - 06/14/2024 11:59 PM EDT Hospital Encounter [facility] MRI [address] [place] [address] Cervical radiculopathy Discharge Disposition: Home or Self Care Social History Tobacco Use Types Packs/Day Years [...] on file documented as of this encounter Medications at Time of Discharge aspirin 81 mg chewable tablet Chew 1 tablet (81 mg total) 1 (one) time each day. cetirizine (ZyrTEC) 10 mg tablet Take 1 tablet (10 mg total) by mouth 1 (one) time each day. flunisolide (NASALIDE) 25 mcg (0.025 %) spray,non-aeros ol USE 2 SPRAYS NASALLY TWICE DAILY FOR NASAL CONGESTION/RHINORRH EA 12/23/2023 hydroCHLOROthia zide 12.5 mg tablet Take 1 tablet (12.5 mg total) by mouth 1 (one) time each day. 05/13/2024 ibuprofen (ADVIL,MOTRIN) 600 mg tablet TAKE 1 TABLET EVERY 8 HOURSAS NEEDED FOR PAIN. TAKE ITWITH FOOD AND FULL GLASS OFWATER levalbuterol (XOPENEX HFA) 45 mcg/actuation inhaler 2 PUFF INHALED EVERY 4 HOURS NEEDED FOR FOR WHEEZING 06/10/2024 LORazepam (ATIVAN) 0.5 mg tablet take 1 tablet orally daily as needed for anxiety losartan (COZAAR) 50 mg tablet 02/23/2024 montelukast (SINGULAIR) 10 mg tablet Take 1 tablet (10 mg total) by mouth 1 (one) time each day. pantoprazole (PROTONIX) 40 mg EC tablet Take 1 tablet (40 mg total) by mouth 2 (two) times a day. 03/21/2024 Qvar RediHaler 80 mcg/actuation HFA aerosol breath activated inhaler INHALE 1 PUFF TWICE DAILY FOR 30 DAYS Repatha SureClick 140 mg/mL pen injector injection INJECT 140 MG SUBCUTANEOUSLY EVERY 2 WEEKS 05/25/2024 Restasis 0.05 % ophthalmic emulsion INSTILL 1 DROP IN BOTH EYE TWICE A DAY 02/05/2024 sucralfate (CARAFATE) 1 gram tablet take 1 tablet by mouth 2 times a day for 90 days tacrolimus (PROTOPIC) 0.1 % ointment APPLY TWICE DAILY TO EYELID DERMATITIS NEEDED 09/12/2023 documented as of this encounter Discharge Disposition Disposition Code Departure Means Destination Home or Self Care documented in this encounter Plan of Treatment Not on file documented as of this encounter Procedures Procedure Name Priority Date/Time Associated Diagnosis Comments MR CERVICAL SPINE WO CONTRAST Routine 06/14/2024 7:14 PM EDT Cervical radiculopathy documented in this encounter Results * MR Cervical Spine wo Contrast [...] Signed Date: 06/15/2024 10:50 ET Workstation ID: [id number] Transcribed By: Self Edit Transcribed Date: 06/15/2024 [...] artifact secondary to anterior fusion hardware from C0nfucssg C7. No appreciable marrow infiltrative lesion. Alignment [...] Signed Date: 06/15/2024 10:50 ET Workstation ID: [id number] Transcribed By: Self Edit Transcribed Date: 06/15/2024 08:04 ET us Siria MORAES IMG MRI PROCEDURES Final R esult documented in this encounter Visit Diagnoses Diagnosis Cervical radiculopathy Brachial neuritis or radiculitis nos documented in this encounter Care Teams Au Pair Relationship Specialty Start Date End Date Sachin Linares NP [address] [facility] [place], [place] PCP - General 05/31/22 documented as of this encounter
--- OUTSIDE RECORDS SUMMARY | 2024-06-17 06:55 | XMS_ITS | Patient Health Record ---
Author Organization [facility] Address [address] [place] [address] Care Team Providers Care Horse Race Starter Name Role Phone BEBE VELASCO M.D Primary Care Provider LIZANDRO Bean Unavailable [phone] Allergies Allergen (clinical drug ingredient) Drug/Non Drug Allergy documented on EMR Reaction Allergy Type Onset Date Status 12 Hour Nasal Bird In Hand Unknown Drug Allergy Active risedronate Actonel Unknown [...] Status Risk Notes Problem Postmenopausal atrophic vaginitis (97525051) Postmenopausal atrophic vaginitis (N95.2) Active confirmed Problem Age-related osteoporosis (262102973) Age-related osteoporosis without current pathological fracture (M81.0) Active confirmed Problem Essential hypertension (23783272) Essential (primary) hypertension (I10) Active confirmed Problem Hyperlipidemia (79010358) Hyperlipidemia, unspecified (E78.5) Active confirmed Problem Uncomplicated asthma (disorder) (731229519) Unspecified asthma, uncomplicated (J45.909) Active confirmed Problem Gastro-esophageal reflux disease without esophagitis (646392697) Gastro-esophageal reflux disease without esophagitis (K21.9) Active confirmed Plan Of Treatment No Information Insurance Providers Payer Name Payer Address Payer Phone Subscriber Number Group Number Insured Name Patient Relationship to Insured Coverage Start Date Coverage End Date MEDICARE [address] [facility], [place] [id number] JORGITO MANCILLA Self - patient is the [...]
[2024-06-17 10:39] LABS: Appearance Urine Clear; Color Urine Yellow; Glucose Urine UA Negative (Negative); Leukocyte Esterase Urine Negative (Negative); Nitrite Urine Negative (Negative); PH 5.5 (5.0-9.0); Specific Gravity - Urine 1.015 (1.005-1.025); Urine Blood Negative (Negative); Urine Ketones Negative (Negative); Urine Protein Negative (Neg-Trace)
[2024-06-17 10:54] LABS: Albumin Level 3.9 g/dL (3.5-5.0); Anion Gap 11 (12-20); Blood Urea Nitrogen 17 mg/dL (9-16); Calcium 8.7 mg/dL (8.4-10.2); Carbon Dioxide 29 mmol/L (22-29); Chloride 104 mmol/L (96-108); Estimated Glomerular Filt Rate 55; Glucose Fasting 101 mg/dL (60-99); Potassium 3.7 mmol/L (3.3-5.1); Sodium 140 mmol/L (135-145)
== END 2024-06-17 06:53 | disposition home or self-care (01) ==
LOC: HO.HMGCLDS 06:52
PROVIDERS: PCP Nurse Practitioner Family; Visit Provider Internal Medicine Endocrinology, Diabetes & Metabolism
DX: M81.8 Other osteoporosis without current pathological fracture (principal); R39.15 Urgency of urination
CPT/HCPCS: 36415; 80048; 81003; 82040

== ENCOUNTER 2024-06-22 08:54 | Outpatient (AMB) | payer OTHER, SELFPAY ==
[2024-06-22 09:12] VITALS: BMI 32.7
--- NOTE | 2024-06-22 09:12 | A.OFFVIS_ITS ---
Vital Signs 06/22/24 09:12 Height 4 ft 11 in Weight 162 lb BMI 32.7 Intake Visit Reasons: OV-Eval for RT wrist ulnar nerve-follow up Intake Note: Adali 74 yr old 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 female presents today for her right hand numbness and tingling in small finger. S/P right hand CTR DOS: 12/25/23. States her symptoms have increase and would like to discuss cubital tunnel release. MRI done right hand done. While in office patient small finger was [place] inward towards her palm. Stated this cause her pain and discomfort. EMG done: 07/29/23 IMPRESSION: 1. Ikrj-gy-nqjnappa right ulnar neuropathy in wrist. 2. Mild right median neuropathy across carpal tunnel. Allergies dexlansoprazole [From DEXILANT] Allergy (Severe, Verified 06/22/24 09:17) dizziness, change in HR risedronate sodium [From ACTONEL] Allergy (Severe, Verified 06/22/24 09:17) chest discomfort Mxeubbz-KHT-OmV Reductase Inhibitor [JNUFOEU-JPM-CPJ REDUCTASE INHIBITOR] Allergy (Severe, Verified 06/22/24 09:17) JOINT PAIN tramadol [TRAMADOL] Allergy (Severe, Verified 06/22/24 09:17) THROAT TIGHTNESS amlodipine [AMLODIPINE] Allergy (Intermediate, Verified 06/22/24 09:17) PALIPITATIONS Atrovent Allergy (Intermediate, Verified 06/22/24 09:17) Cough baclofen [BACLOFEN] Allergy (Intermediate, Verified 06/22/24 09:17) LETHARGY Beta-Blockers (Beta-Adrenergic Bloc Allergy (Intermediate, Verified 06/22/24 09:17) BRADYCARDIA budesonide [From SYMBICORT] Allergy (Intermediate, Verified 06/22/24 09:17) HOARSENESS Chocolate Allergy (Intermediate, Verified 06/22/24 09:17) GERD ezetimibe [From ZETIA] Allergy (Intermediate, Verified 06/22/24 09:17) JOINT PAIN, ELEVATED CPK fluticasone [From ADVAIR DISKUS] Allergy (Intermediate, Verified 06/22/24 09:17) HTN glucosamine Allergy (Intermediate, Verified 06/22/24 09:17) LE edema ibandronate sodium [From BONIVA] Allergy (Intermediate, Verified 06/22/24 09:17) CHEST PAIN latex [LATEX] Allergy (Intermediate, Verified 06/22/24 09:17) RASH-SENSITIVITY lisinopril [LISINOPRIL] Allergy (Intermediate, Verified 06/22/24 09:17) COUGH, really bad cough meloxicam [From MOBIC] Allergy (Intermediate, Verified 06/22/24 09:17) GI UPSET mometasone furoate [From DULERA] Allergy (Intermediate, Verified 06/22/24 09:17) COUGH niacin Allergy (Intermediate, Verified 06/22/24 09:17) Flushing Penicillins [PENICILLINS] Allergy (Intermediate, Verified 06/22/24 09:17) RASH pregabalin [From LYRICA] Allergy (Intermediate, Verified 06/22/24 09:17) GERD flare up raloxifene [From EVISTA] Allergy (Intermediate, Verified 06/22/24 09:17) GERD rofecoxib [From Vioxx] Allergy (Intermediate, Verified 06/22/24 09:17) ankle swelling salmeterol [From ADVAIR DISKUS] Allergy (Intermediate, Verified 06/22/24 09:17) HTN scallops [SCALLOPS] Allergy (Intermediate, Verified 06/22/24 09:17) NAUSEA & VOMITING sertraline [From ZOLOFT] Allergy (Intermediate, Verified 06/22/24 09:17) SKIN CRAWLING spironolactone [SPIRONOLACTONE] Allergy (Intermediate, Verified 06/22/24 09:17) RASH, ?? psoriasis strawberry [STRAWBERRY] Allergy (Intermediate, Verified 06/22/24 09:17) ITCHING tiotropium [From SPIRIVA WITH HANDIHALER] Allergy (Intermediate, Verified 06/22/24 09:17) RAW THROAT, pharyngitis verapamil [VERAPAMIL] Allergy (Intermediate, Verified 06/22/24 09:17) IRREGULAR HEARTBEAT esomeprazole [Nexium] Allergy (Mild, Verified 06/22/24 09:17) did not resolve GERD naproxen [From ALEVE] Allergy (Mild, Verified 06/22/24 09:17) FLUSH omeprazole Allergy (Mild, Verified 06/22/24 09:17) did not resolve GERD tacrolimus Allergy (Mild, Verified 06/22/24 09:17) Rash adhesive [ADHESIVE] Allergy (Unknown, Verified 06/22/24 09:17) RASH doxycycline [DOXYCYCLINE] Allergy (Unknown, Verified 06/22/24 09:17) SEVERE NOYOLA, HEARTBURN, joint pain gabapentin [From NEURONTIN] Allergy (Unknown, Verified 06/22/24 09:17) leg swelling, SOB metoclopramide [From REGLAN] Allergy (Unknown, Verified 06/22/24 09:17) LETHARGY monosodium glutamate [MSG] Allergy (Unknown, Verified 06/22/24 09:17) HEADACHE, increased HR lifitegrast [From Xiidra] Allergy (Verified 06/22/24 09:17) blurred vision, headache, eye swelling metoprolol Adverse Reaction (Severe, Verified 06/22/24 09:17) Severe bradycardia alendronate sodium [From Fosamax] Adverse Reaction (Intermediate, Verified 06/22/24 09:17) Joint Pain amitriptyline Adverse Reaction (Intermediate, Verified 06/22/24 09:17) Agitated cyclosporine [From Cequa] Adverse Reaction (Intermediate, Verified 06/22/24 09:17) Eye Swelling fluticasone furoate [From Trelegy Ellipta] Adverse Reaction (Intermediate, Verified 06/22/24 09:17) asthma exacerbation perfluorohexyloctane [From Miebo] Adverse Reaction (Intermediate, Verified 06/22/24 09:17) Eye Swelling tobramycin [From Tobrex] Adverse Reaction (Intermediate, Verified 06/22/24 09:17) Eye Swelling umeclidinium [From Trelegy Ellipta] Adverse Reaction (Intermediate, Verified 06/22/24 09:17) asthma exacerbation vilanterol [From Trelegy Ellipta] Adverse Reaction (Intermediate, Verified 06/22/24 09:17) asthma exacerbation azelastine Adverse Reaction (Mild, Verified 06/22/24 09:17) Gastrointestinal Upset hi Adverse Reaction (Intermediate, Uncoded 06/22/24 09:17) Itchy Eyes Sulindac Adverse Reaction (Intermediate, Uncoded 06/22/24 09:17) Nausea, pain HPI HPI OV-Eval for RT wrist ulnar nerve-follow up: Details: Adali is a 73 year old 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 woman who returns to discuss her right hand numbness. She is S/P right carpal tunnel release, DOS: 12/29/23. She says she still gets numbness and tingling in the right small and ring fingers that is intermittent but daily, but she feels this is worsening. She has recently developed increasing problems with numbness and tingling radiating from her elbow down the ulnar aspect of her forearm extending to both the dorsal and palmar ulnar side of her hand. She says this also extends up into her shoulder & neck. She does find that her small finger will tend to flex on its own She says she was seen in May by her neurosurgeon and had an MRI done of her C- spine. They ruled out a disc issue causing her numbness. She is status post a cervical fusion, that was recently found to not have fully healed. She also has recently started using a bone stimulator for this issue under the care of her neurosurgeon. She says she had some sort of debridement done on the medial aspect of her right elbow by Dr. Fry in ~2014. Hx of C4-C5 cervical fusion, DOS: 07/02/22 [facility] Medical History Esophageal spasm Hx of carcinoma of bladder Bladder carcinoma History of trigger finger Cervical radiculitis Chronic sinusitis GERD (gastroesophageal reflux disease) FRANCESCA (obstructive sleep apnea) CAD (coronary artery disease) History of primary hyperparathyroidism Non-toxic multinodular goiter Osteoporosis Pulmonary nodules H/O gastroesophageal reflux (GERD) HLD (hyperlipidemia) HTN (hypertension) COPD (chronic obstructive pulmonary disease) Asthma History of aneurysm Migraine Depression PTSD (post-traumatic stress disorder) History of panic attacks Anxiety Edema History of deviated nasal septum Medial epicondylitis of left elbow Fusion of spine, cervical region Surgical History History of carpal tunnel release Hx of cystoscopy H/O cervical spine surgery Hx of hand surgery Hx of right inguinal hernia repair History of hernia repair Hx of colonoscopy History of esophagogastroduodenoscopy (EGD) S/P repair of paraesophageal hernia H/O decompression of ulnar nerve Status post ablation of incompetent vein using laser History of cardiac catheterization History of eyelid surgery History of appendectomy History of parathyroidectomy History of cholecystectomy Hx of cataract surgery Hx of shoulder surgery S/P cubital tunnel release S/P arthroscopic surgery of right knee History of lumpectomy of both breasts History of hysterectomy Hx of adenoidectomy Hx of tonsillectomy Hx of eye surgery Family History Father Liver cancer Psoriasis Cancer Mental health disorder Mother Cervical cancer Ovarian cancer Heart attack Substance use disorder Social History Household Members: Children and None Housing: House Alcohol intake: current Alcohol intake frequency: does not drink Patient Tobacco Use Status: Former Tobacco user Tobacco use type: Cigarette e-Cigarette/Vaping Use: Never Used Second Hand Smoke Exposure: No service: No Current occupational status: employed 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 Normal sensation in the ulnar nerve distribution today in clinic She had a Wartenberg sign, but now can actively bring the small finger into adduction against the ring finger No thenar or intrinsic wasting Good APB muscle belly firing and good finger cross She demonstrates discomfort radiating from the elbow, down the ulnar aspect of her forearm, and into the dorsal & volar ulnar aspect of her hand Vascular: Cap refill brisk ROM: She can make a nice fist and extend all her digits No subluxation of extensor tendons with ROM She has a healed surgical scar medial elbow, from a debridement done by Dr. Fry, for suspected medial epicondylitis in ~2014. We need this OP report prior to considering surgery Right Hand MRI: Findings: No bone marrow edema. Severe joint space narrowing and osteophytosis of the 1st carpometacarpal joint, Degenerative. No subluxation or dislocation. The musculature is normal in signal and bulk. Normal vessels. No joint effusion. No ligamentous injury Extensor tendons are intact and normal in signal without tenosynovitis. Status post release of the flexor retinaculum without evidence of regrowth or scarring. No increase in size or signal of the median or ulnar nerves. No definitive thickening of the flexor tendon sheaths or tendons. No tenosynovitis. Impression: No increase in size or signal of the ulnar nerve. This document has been electronically signed by: Jocelyn Jara MD on 06/17/2024 Nerve Conduction Study: Right-side only IMPRESSION: 1. Bzbb-km-hoxlgzel right ulnar neuropathy in wrist. 2. Mild right median neuropathy across carpal tunnel. Beka Frost MD 07/29/2023 Psych Appearance: grossly normal Affect: normal affect Attitude: cooperative Assessment & Plan Assessment & Plan (1) Neuropathy of right ulnar nerve at wrist: Code(s): G56.21 - Lesion of ulnar nerve, right upper limb Category: Medical Plan Assessment & Plan: 1. Right ulnar nerve compression, Compression at the wrist per NCS from 07/29/23 She has recently developed symptoms of numbness and tingling progressing from the medial aspect of the elbow down the forearm with symptoms on both the dorsal and palmar ulnar aspect of the hand Intermittent, but daily, numbness in the ring & small fingers, some discomfort radiating up the ulnar side of the forearm I educated her about this condition I discussed treatment options I do think that she is likely going to need some intervention for this issue. The fletcher is trying to decide between a cubital tunnel release versus ulnar nerve release at the wrist/Guyon's canal. Her symptoms today more clearly indicate ulnar nerve compression at the elbow. I ordered a new NCS to assess her RUE for peripheral nerve compression She has a healed surgical scar medial elbow, from a debridement done by Dr. Fry, for suspected medial epicondylitis in ~2014. We need this OP report prior to considering surgery She will follow up when completed for review, and to discuss treatment options 2. Right carpal tunnel syndrome, S/P release DOS: 12/29/23 Pre-operative symptoms intermittent, but daily, worse at night Now with normal sensation, and significant improvement of overall hand pain 3. Right ulnar-sided hand pain Most likely ECU tendinitis Significantly improved following her carpal tunnel surgery Her symptoms have been worsening in the last few months I recommend she continue with at-home exercises and activity modification Scribed for Marisol Cagle MD by Keyon Manzo, medical insurance claims processor, on 06/22/24 at 9:30 AM, EST. 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
--- OUTSIDE RECORDS SUMMARY | 2024-06-22 09:20 | XMS_ITS | Data Portability ---
Author Organization [place] - [facility], Allergy Address [address] [place] [address] Care Team Providers Care Piecer Name Role Phone BEBE VELASCO Primary Care Provider [phone] Assessment Encounter Date Assessment Date Assessment LastModified [...] Address Organization Details Recorded Time Bilateral tinnitus [id number] 02 Active 2018 Tinnitus, bilateral ; Note: Date Diagnosed : 09/16/2018 9:36 AM (H93.13) Not Available [facility] 4 03:05:03 Sensorine ural hearing loss of bilateral ears 178167432 Active 2018 Sensorine ural hearing loss, bilateral ; Note: Date Diagnosed : 09/16/2018 9:36 AM (H90.3) Not Available [facility] hospital 4 03:05:03 Migraine with aura 0617238 Active 2018 Migraine with aura, not intractab le, without status migrainos us; Note: Date Diagnosed : 09/16/2018 9:50 AM (G43.109) Not Available Critical access hospital 4 03:05:05 Dizziness and giddiness 001865105 Active 2018 Dizziness and giddiness ; Note: Date Diagnosed : 09/16/2018 9:36 AM (R42) Not Available Critical access hospital 4 03:05:03 Gastroeso phageal reflux disease without esophagit is 725140955 Active 2018 Gastro-es ophageal reflux disease without esophagit is; Note: Date Diagnosed : 09/16/2018 9:57 AM (K21.9) Not Available Critical access hospital 4 03:05:03 Headache 92709256 Active 2018 Facial pain NOS; Note: Date Diagnosed : 09/16/2018 9:50 AM (R51) Not Available Critical access hospital 4 03:05:02 Recurrent acute sinusitis 218029368 Active 2024 HARPREET HALEY MD [address] [place] [address], [place], [address] , [place] - [facility] 5 16:29:55 Allergic rhinitis 28210489 Active 2024 HARPREET HALEY MD [address] [place] [address], [place], [address] , [place] - [facility] 5 16:30:02 Problem Notes None recorded. Procedures Surgical History Date Name Laterality Status Provider Name and Address Organization Details Recorded Time 03/12/2024 Comp Audio with Tymps - 79067 & 64796 completed ADALI ASKEW [place], CCC-A [address] [address], [place], [address], [facility] - [facility] 03/12/2024 16:00:59 03/12/2024 NasalEndosc opy_DP completed HARPREET HALEY MD [address] [place] [address],[address] [address], [place], [address], [facility] 03/12/2024 16:29:37 Imaging Results Imaging Date Name Status LastModified by OrganSiSense ation Details LastModified Time 03/15/2024 audiogram completed BARCODE Information no t available 03/15/2024 13:28:12 Procedure Notes None recorded. Medical Equipment None Reported. Allergies Allergen ID Allergen Name Allergen Category Reaction Reaction Severity Criticality Documentation Date Start Date Code Code System Note Provider Name and Address Organization Details Recorded Time 508481 tacrolimu s medicatio n Not available Not available Not available 03/12/2024 60035 RxNorm Zoraida Potvin [place], [place] - [facility] 15:11:51 208786 Nexletol medicatio n Not available Not available Not available 03/12/2024 10299 09 RxNorm Zoraida Potvin [place] - [facility] 15:12:16 599461 Miebo medicatio n Not available Not available Not available 03/12/2024 03979 52 RxNorm Zoraida Potvin [place] - [facility] 15:12:27 827180 sulindac medicatio n Not available Not available Not available 03/12/2024 26451 RxNorm Zoraida Potvin [place], [place] - [facility] 15:12:36 025893 Fosamax medicatio n Not available Not available Not available 03/12/2024 61174 5 RxNorm Zoraida Potvin [place] - [facility] 5 15:12:46 293074 latex environme nt,medica tion Not available Not available Not available 03/12/2024 37697 91 RxNorm Zoraida Potvin franko [place] - [facility] 15:13:27 324408 Dexilant medicatio n Not available Not available Not available 03/12/2024 70156 1 RxNorm Zoraida abdul [facility] 15:13:54 222684 doxycycli ne Not available Not available Not available Not available 03/12/2024 3640 RxNorm Zoraida Marsh franko [facility] 15:14:23 Medications Name Sig Start Date [...] Smoking Status Former Smoker HARPREET HALEY MD [address] [place] [address], [place], [address], [facility] - [facility] 03/12/2024 09:06:30 How Much Tobacco Do [...] Disorder N Anesthesia Complications N Heart Attack ([place]) N Other Skin Condition N Diabetes N [...] SNOMED-CT Code Diagnosis ICD10 Code Diagnosis Note [id number] HARPREET HALEY MD [facility] [address] [address] 03/12/2024 14:19:20 03/12/2024 16:35:50 Sensorineural hearing loss of bilateral ears 568890465 H90.3 Audiologic al evaluation results: Right ear: [...] maintain a hermetic seal}} Recurrent acute sinusitis 427422029 J01.91 Allergic rhinitis 758041 04 J30.9 Health Concerns Section Related Observation LastModified by Organization Detai ls LastModified Time None Recorded Concern Status LastModified by Organization Details LastModified Time None Recorded Advance Directives Directive None Recorded Payers Insurance Date Sequence Insurance Name Policy Number Policy Gill Covered Member ID Gill Member ID Guarantor Name 03/12/2024 1 [employer] (MEDICARE SUPPLEMENT) Adali I Houde [id number] Adali I Houde 03/12/2024 1 MEDICAID[place]: [facility] Adali I Houde [id number] Adali I Houde 03/12/2024 1 [employer] Adali I Houde [id number] Adali I Houde 05/26/2024 1 [facility] - MEDICARE PREFERRED (MEDICARE REPLACEMENT HMO) [place] Adali I Houde [id number] Adali I Houde 05/26/2024 1 [facility] (MEDICARE REPLACEMENT/A DVANTAGE - PPO) [id number] Adali I Houde [id number] Adali I Houde Notes Date Note Type [...] her sinus congestion symptoms HARPREET HALEY MD [address] [place] [address], [place], [address], [facility] - [facility] 03/12/2024 16:35:50 OBGyn Episode No OBEpisode recorded.
--- OUTSIDE RECORDS SUMMARY | 2024-06-22 09:20 | XMS_ITS | Patient Health Record ---
Author Organization [facility] Address [address] [place] [address] Care Team Providers Care Garage Mechanic Name Role Phone BEBE VELASCO M.D Primary Care Provider LIZANDRO Bean Unavailable [phone] Allergies Allergen (clinical drug ingredient) Drug/Non Drug Allergy documented on EMR Reaction Allergy Type Onset Date Status [address] Unknown Drug Allergy Active risedronate Actonel Unknown [...] Status Risk Notes Problem Postmenopausal atrophic vaginitis (60176655) Postmenopausal atrophic vaginitis (N95.2) Active confirmed Problem Age-related osteoporosis (694082152) Age-related osteoporosis without current pathological fracture (M81.0) Active confirmed Problem Essential hypertension (11280187) Essential (primary) hypertension (I10) Active confirmed Problem Hyperlipidemia (58860330) Hyperlipidemia, unspecified (E78.5) Active confirmed Problem Uncomplicated asthma (disorder) (361926538) Unspecified asthma, uncomplicated (J45.909) Active confirmed Problem Gastro-esophageal reflux disease without esophagitis (112425754) Gastro-esophageal reflux disease without esophagitis (K21.9) Active confirmed Plan Of Treatment No Information Insurance Providers Payer Name Payer Address Payer Phone Subscriber Number Group Number Insured Name Patient Relationship to Insured Coverage Start Date Coverage End Date MEDICARE [address] [facility], [place] [id number] JORGITO MANCILLA Self - patient is the [...]
== END 2024-06-22 09:56 | disposition home or self-care (01) ==
LOC: HO.HOS 08:55
PROVIDERS: PCP Nurse Practitioner Family; Visit Provider Orthopaedic Surgery
DX: G56.21 Lesion of ulnar nerve, right upper limb (principal)
CPT/HCPCS: 99214

== ENCOUNTER → 2024-06-22 08:54 | Outpatient (BNVA) | payer OTHER, SELFPAY | PROVIDERS: PCP Nurse Practitioner Family; Visit Provider Orthopaedic Surgery ==

== ENCOUNTER 2024-06-23 07:45 | Outpatient (AMB) | payer MEDICARE, SELFPAY ==
[2024-06-23 07:52] VITALS: BP 152/90; PULSE 73; RESP 16; TEMP 36.6; O2SAT 99; BMI 32.3
--- NOTE | 2024-06-23 07:52 | A.OFFPC_ITS ---
Vital Signs 06/23/24 07:52 06/23/24 08:12 Height 4 ft 11 in Weight 160 lb BMI 32.3 BP 152/90 H 132/78 Blood Pressure Location Lt brachial Position Sitting Respiration 16 Pulse 73 Pulse Source Pulse Oximeter Temp 97.8 F Temp Source Oral Pulse Oximetry (%) 99 Oxygen Delivery Method Room Air Intake Visit Reasons: 4m follow up Intake Note: Pt is here today for her 4mo. f/u Allergies dexlansoprazole [From DEXILANT] Allergy (Severe, Verified 06/23/24 07:56) dizziness, change in HR risedronate sodium [From ACTONEL] Allergy (Severe, Verified 06/23/24 07:56) chest discomfort Vsotzua-TCX-SqC Reductase Inhibitor [[id number] REDUCTASE INHIBITOR] Allergy (Severe, Verified 06/23/24 07:56) JOINT PAIN tramadol [TRAMADOL] Allergy (Severe, Verified 06/23/24 07:56) THROAT TIGHTNESS amlodipine [AMLODIPINE] Allergy (Intermediate, Verified 06/23/24 07:56) PALIPITATIONS Atrovent Allergy (Intermediate, Verified 06/23/24 07:56) Cough baclofen [BACLOFEN] Allergy (Intermediate, Verified 06/23/24 07:56) LETHARGY Beta-Blockers (Beta-Adrenergic Bloc Allergy (Intermediate, Verified 06/23/24 07:56) BRADYCARDIA budesonide [From SYMBICORT] Allergy (Intermediate, Verified 06/23/24 07:56) HOARSENESS Chocolate Allergy (Intermediate, Verified 06/23/24 07:56) GERD ezetimibe [From ZETIA] Allergy (Intermediate, Verified 06/23/24 07:56) JOINT PAIN, ELEVATED CPK fluticasone [From ADVAIR DISKUS] Allergy (Intermediate, Verified 06/23/24 07:56) HTN glucosamine Allergy (Intermediate, Verified 06/23/24 07:56) LE edema ibandronate sodium [From BONIVA] Allergy (Intermediate, Verified 06/23/24 07:56) CHEST PAIN latex [LATEX] Allergy (Intermediate, Verified 06/23/24 07:56) RASH-SENSITIVITY lisinopril [LISINOPRIL] Allergy (Intermediate, Verified 06/23/24 07:56) COUGH, really bad cough meloxicam [From MOBIC] Allergy (Intermediate, Verified 06/23/24 07:56) GI UPSET mometasone furoate [From DULERA] Allergy (Intermediate, Verified 06/23/24 07:56) COUGH niacin Allergy (Intermediate, Verified 06/23/24 07:56) Flushing Penicillins [PENICILLINS] Allergy (Intermediate, Verified 06/23/24 07:56) RASH pregabalin [From LYRICA] Allergy (Intermediate, Verified 06/23/24 07:56) GERD flare up raloxifene [From EVISTA] Allergy (Intermediate, Verified 06/23/24 07:56) GERD rofecoxib [From Vioxx] Allergy (Intermediate, Verified 06/23/24 07:56) ankle swelling salmeterol [From ADVAIR DISKUS] Allergy (Intermediate, Verified 06/23/24 07:56) HTN scallops [SCALLOPS] Allergy (Intermediate, Verified 06/23/24 07:56) NAUSEA & VOMITING sertraline [From ZOLOFT] Allergy (Intermediate, Verified 06/23/24 07:56) SKIN CRAWLING spironolactone [SPIRONOLACTONE] Allergy (Intermediate, Verified 06/23/24 07:56) RASH, ?? psoriasis strawberry [STRAWBERRY] Allergy (Intermediate, Verified 06/23/24 07:56) ITCHING tiotropium [From SPIRIVA WITH HANDIHALER] Allergy (Intermediate, Verified 06/23/24 07:56) RAW THROAT, pharyngitis verapamil [VERAPAMIL] Allergy (Intermediate, Verified 06/23/24 07:56) IRREGULAR HEARTBEAT esomeprazole [Nexium] Allergy (Mild, Verified 06/23/24 07:56) did not resolve GERD naproxen [From ALEVE] Allergy (Mild, Verified 06/23/24 07:56) FLUSH omeprazole Allergy (Mild, Verified 06/23/24 07:56) did not resolve GERD tacrolimus Allergy (Mild, Verified 06/23/24 07:56) Rash adhesive [ADHESIVE] Allergy (Unknown, Verified 06/23/24 07:56) RASH doxycycline [DOXYCYCLINE] Allergy (Unknown, Verified 06/23/24 07:56) SEVERE NOYOLA, HEARTBURN, joint pain gabapentin [From NEURONTIN] Allergy (Unknown, Verified 06/23/24 07:56) leg swelling, SOB metoclopramide [From REGLAN] Allergy (Unknown, Verified 06/23/24 07:56) LETHARGY monosodium glutamate [MSG] Allergy (Unknown, Verified 06/23/24 07:56) HEADACHE, increased HR lifitegrast [From Xiidra] Allergy (Verified 06/23/24 07:56) blurred vision, headache, eye swelling metoprolol Adverse Reaction (Severe, Verified 06/23/24 07:56) Severe bradycardia alendronate sodium [From Fosamax] Adverse Reaction (Intermediate, Verified 06/23/24 07:56) Joint Pain amitriptyline Adverse Reaction (Intermediate, Verified 06/23/24 07:56) Agitated cyclosporine [From Cequa] Adverse Reaction (Intermediate, Verified 06/23/24 07:56) Eye Swelling fluticasone furoate [From Trelegy Ellipta] Adverse Reaction (Intermediate, Verified 06/23/24 07:56) asthma exacerbation perfluorohexyloctane [From Miebo] Adverse Reaction (Intermediate, Verified 06/23/24 07:56) Eye Swelling tobramycin [From Tobrex] Adverse Reaction (Intermediate, Verified 06/23/24 07:56) Eye Swelling umeclidinium [From Trelegy Ellipta] Adverse Reaction (Intermediate, Verified 06/23/24 07:56) asthma exacerbation vilanterol [From Trelegy Ellipta] Adverse Reaction (Intermediate, Verified 06/23/24 07:56) asthma exacerbation azelastine Adverse Reaction (Mild, Verified 06/23/24 07:56) Gastrointestinal Upset hi Adverse Reaction (Intermediate, Uncoded 06/23/24 07:56) Itchy Eyes Sulindac Adverse Reaction (Intermediate, Uncoded 06/23/24 07:56) Nausea, pain Tobacco use date assessed: 06/23/24 Fall risk assessment: No Falls in past year Last assessed Fall Risk: 06/23/24 Dental Screening Dental Screen Date: 06/23/24 Did you have a dental visit in the last 12 months?: Yes Did you have a dental problem in the last 6 months where you did not have access to dental care?: No Was dental information given to patient?: Patient has dentist HPI 4m follow up HPI Details Chief Complaint Persistent pain in the right upper extremity, neck, with suspected ulnar nerve involvement. History of Present Illness The patient is a 74-year-old female presenting with generalized follow-up concerns predominantly related to the right upper extremity pain and neck complications. She reports ongoing shoulder and neck pain that does radiate down the arm, suggesting potential ulnar nerve involvement given the sensation noted in her fourth and fifth fingers. Despite consulting a hand specialist who ordered EMG testing, she has yet to undergo this evaluation. An MRI by her neurosurgeon highlighted insufficient results from a previous cervical fusion, noting limited fusion and bulging discs in the upper thoracic and cervical spine. Currently, she is using a bone growth stimulator. Her history of dyslipidemia and white coat syndrome with stable home blood pressure measurements were also highlighted. Social History Health Maintenance - Labs ordered for further assessment. - Scheduled EMG testing. - Use of bone growth stimulator as per n eurosurgical recommendation. Review of Systems - Musculoskeletal: Reports ongoing shoul gina and neck pain. - Neurological: Reports sensation change s in the fifth and fourth fingers of the right hand. -denies any cp, increased sob, dizziness , blurred vision Physical Exam General: Cooperative, healthy appearing, comfortable, no acute distress and well developed Orientation: Patient oriented x3 Limitations: Limited fusion noted in the upper thoracic/cervical region Head: Normal to inspection Ears: Hearing grossly normal bilaterally Nose: Normal external nose present Face and sinus: Normal facial exam Eyes: Appearance normal, both eyes and all related structures Neck: Normal visual inspection and Yes full ROM, but ongoing neck pain reported Respiratory: Normal respiratory effort and able to speak in complete sentences. Clear to auscultation bilaterally Cardiovascular: Regular rate and rhythm. Normal S1 and S2 GI: Normal to inspection. Soft to palpation and nontender Skin: No rashes or lesions noted Neuro: Patient oriented x3 Extremities: contracted, though able to extend right 5th finger. cervical neck pain with movement of head/ROM Results - Labs and EMG are pending, MRI noted li mited cervical fusion and bulging discs. Plan The patient's management involves addressing the purported ulnar nerve disorder, with a critical EMG scheduled soon. Awareness of her cervical and thoracic spine issues, featuring poor fusion and disc bulging, informs her current care, particularly emphasizing adherence to her bone stimulator protocol. Her dyslipidemia is on our radar for influencing cardiovascular risk assessments moving forward. Given the white coat syndrome's recorded stable home pressures, we continue monitoring without immediate intervention unless indicated by future results. Discussion Notes In the visit, the discussions revolved around her ulnar nerve-related symptoms, with EMG testing planned to offer further diagnostic clarity. We deliberated on her previous cervical fusion inefficiencies, noting imaging results with significant implications for her current state. The use of a bone stimulator was advised by her neurosurgeon, catering to her therapeutic needs. Her longstanding dyslipidemia is acknowledged, factoring into her cardiovascular health strategies as we navigate her treatment regimen. Floor Scraper regarding observation of white coat syndrome with her consistent home readings was reinforced, keeping it under attentive watch. Patient Instructions - Ensure adherence to scheduled EMG test ing next month. - Continue the use of the bone growth st imulator as prescribed. - Monitor and record blood pressure at [facility] regularly. - Follow any new or worsening symptoms c losely and relay them at the next appointment. - Maintain any medication and lifestyle adjustments for managing dyslipidemia. [facility] Medical History Esophageal spasm Hx of carcinoma of bladder Bladder carcinoma History of trigger finger Cervical radiculitis Chronic sinusitis GERD (gastroesophageal reflux disease) FRANCESCA (obstructive sleep apnea) CAD (coronary artery disease) History of primary hyperparathyroidism Non-toxic multinodular goiter Osteoporosis Pulmonary nodules H/O gastroesophageal reflux (GERD) HLD (hyperlipidemia) HTN (hypertension) COPD (chronic obstructive pulmonary disease) Asthma History of aneurysm Migraine Depression PTSD (post-traumatic stress disorder) History of panic attacks Anxiety Edema History of deviated nasal septum Medial epicondylitis of left elbow Fusion of spine, cervical region Surgical History History of carpal tunnel release Hx of cystoscopy H/O cervical spine surgery Hx of hand surgery Hx of right inguinal hernia repair History of hernia repair Hx of colonoscopy History of esophagogastroduodenoscopy (EGD) S/P repair of paraesophageal hernia H/O decompression of ulnar nerve Status post ablation of incompetent vein using laser History of cardiac catheterization History of eyelid surgery History of appendectomy History of parathyroidectomy History of cholecystectomy Hx of cataract surgery Hx of shoulder surgery S/P cubital tunnel release S/P arthroscopic surgery of right knee History of lumpectomy of both breasts History of hysterectomy Hx of adenoidectomy Hx of tonsillectomy Hx of eye surgery Family History Father Liver cancer Psoriasis Cancer Mental health disorder Mother Cervical cancer Ovarian cancer Heart attack Substance use disorder Social History Household Members: Children and None Housing: House Alcohol intake: current Alcohol intake frequency: does not drink Patient Tobacco Use Status: Former Tobacco user Tobacco use type: Cigarette e-Cigarette/Vaping Use: Never Used Second Hand Smoke Exposure: No service: No Current occupational status: employed 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 1. Little interest or pleasure in doing things: not at all 2. Feeling down, depressed, or hopeless: not at all 3. Trouble falling or staying asleep, or sleeping too much: not at all 4. Feeling tired or having little energy: not at all 5. Poor appetite or overeating: not at all 6. Feeling bad about yourself - or that you are a failure or have let yourself or your family down: not at all 7. Trouble concentrating on things, such as reading the newspaper or watching television: not at all 8. Moving or speaking so slowly that other people could have noticed. Or the opposite - being so fidgety or restless that you have been moving around a lot more than usual: not at all 9. Thoughts that you would be better off or of hurting yourself in some way: not at all Total score: 0 Depression Screening Interpretation: Negative Depression Screening Done: Yes 12547 - PHQ-9 Billing: Yes Source: Developed by Drs. Manas Hilario, Lizabeth Wadsworth, Hernando Rodríguez and colleagues, with an educational fidelina from [employer]. Thrive Questionnaire Date Thrive assessed: 02/12/24 I am a: Patient What is your living situation today?: I have a steady place to live Within the past 12 months, did the food you bought not last and you didn't have the money to get more?: Never true Within the past 12 months, did you worry whether your food would run out before you got money to buy more?: Never true Do you have trouble paying for medicines?: I choose not to answer this question Do you have trouble getting transportation to medical appointments?: No Do you have trouble paying your heating and electricity bill?: No Do you have trouble taking care of your child, family member or friend?: No Do you have trouble with day-to-day activities such as bathing, preparing meals, shopping, managing finances, etc.?: No Are you currently unemployed and looking for a job?: No Are you interested in more education?: No Please select the resources that you would like help with: None Currently or been in a relationship where the following occur: I choose not to answer THRIVE Score: 0 AUDIT C Alcohol Use Questionnaire (AUDIT-C) 3. How often do you have six or more drinks on one occasion?: Never Total Score: 0 JASPAL-7 AMB Questionnaire JASPAL-7 Date JASPAL - 7 assessed: 02/19/24 Source: Developed by Drs. Manas Hilario, Lizabeth Wadsworth, Hernando Rodríguez and colleagues, with an educational fidelina from [employer]. Physical exam (Primary Care) Vital Signs: Last Vital Signs Temp 97.8 F 06/23/24 07:52 Pulse 73 06/23/24 07:52 Resp 16 06/23/24 07:52 BP 152/90 H 06/23/24 07:52 Pulse Ox 99 06/23/24 07:52 Oxygen Delivery Method Room Air 06/23/24 07:52 BMI result Body Mass Index 32.3 Tobacco/Smoking Status: Tobacco use Status Tobacco use date assessed 06/23/24 06/23/24 08:04 Patient Tobacco Use Status Former Tobacco user 06/23/24 07:52 Tobacco use type Cigarette 06/23/24 07:52 e-Cigarette/Vaping Use Never Used 06/23/24 07:52 PHQ-9: PHQ-9 Score PHQ-9: Total score 0 06/23/24 08:04 Depression Screening Interpretation: Negative Thrive Assessment: Date of Thrive Assessment Date Thrive assessed 02/12/24 06/23/24 07:52 Currently or been in a relationship where the following occur: I choose not to answer Coding Level of Care Code Est Pt Level 3 (67253) Diagnoses Hyperlipidemia E78.5 Cervical neck pain with evidence of disc disease M50.90 Ulnar neuropathy G56.20 Additional Codes PHQ-9 - 71987 - PHQ-9 Billing: Yes ([id number]) Assessment & Plan Assessment & Plan (1) Hyperlipidemia: Code(s): E78.5 - Hyperlipidemia, unspecified Category: Medical (2) Cervical neck pain with evidence of disc disease: Code(s): M50.90 - Cervical disc disorder, unspecified, unspecified cervical region Category: Medical (3) Ulnar neuropathy: Code(s): G56.20 - Lesion of ulnar nerve, unspecified upper limb Category: Medical Plan . Orders: Orders Comprehensive [place]. Panel Fast Today E78.5 - Hyperlipidemia, unspecified Lipid Panel Today E78.5 - Hyperlipidemia, unspecified Complete Blood Count Auto Diff Today E78.5 - Hyperlipidemia, unspecified TSH reflex Free T4 Today E78.5 - Hyperlipidemia, unspecified UA CC w/rflx Micro + Cult Today E78.5 - Hyperlipidemia, unspecified Vitamin D 25-OH Total Today E78.5 - Hyperlipidemia, unspecified Medications: New losartan-hydrochlorothiazide 50-12.5 mg 1 tab PO DAILY 90 tabs 0RF Discontinued losartan Discontinued Reason: Doctor's Order 50 mg PO DAILY 90 days 90 tabs 1RF I25.10 - Atherosclerotic heart disease of telida coronary artery without angina pectoris hydrochlorothiazide Discontinued Reason: Doctor's Order 12.5 mg PO DAILY 90 days 90 tabs 1RF
[2024-06-23 08:12] VITALS: BP 132/78
== END 2024-06-23 08:38 | disposition home or self-care (01) ==
LOC: HO.HMCC 07:46
PROVIDERS: PCP Nurse Practitioner Family; Visit Provider Nurse Practitioner Family
DX: E78.5 Hyperlipidemia, unspecified (principal); M50.90 Cervical disc disorder, unspecified, unspecified cervical region; G56.20 Lesion of ulnar nerve, unspecified upper limb

== ENCOUNTER → 2024-06-23 07:45 | Outpatient (BNVA) | payer MEDICARE, SELFPAY | PROVIDERS: PCP Nurse Practitioner Family; Visit Provider Nurse Practitioner Family | DX: I25.10 Atherosclerotic heart disease of native coronary artery without angina pectoris (principal); E78.5 Hyperlipidemia, unspecified; M50.90 Cervical disc disorder, unspecified, unspecified cervical region; G56.20 Lesion of ulnar nerve, unspecified upper limb | CPT/HCPCS: 96127; 99212 ==

== ENCOUNTER 2024-06-25 08:51 | Outpatient (AMB) | payer MEDICARE, SELFPAY ==
--- OUTSIDE RECORDS SUMMARY | 2024-06-25 09:05 | XMS_ITS | Clinical Summary ---
Author Organization [address] [facility] Address [address] [place] [address] Phone Care Team Providers Care Seed Cleaner Operator Name Role Phone Sachin Linares NP [...] for left slight decrease in right hand card lacer at 4+/5 -. Gait is steady. Review [...] hand and has an appointment to see [place] [facility] on July 14. She is welcome [...] using it. C-spine MRI done yesterday at [facility] does not show any significant central or [...] intact. X-rays of the cervical spine from [facility] dated 2024 show good position of her C4-5 and C5-C6-C7 plates but there does not appear to be robust bone growth across the disc spaces. I will discuss with Dr. Rodriguez and likely order a bone growth stimulator. Meantime, she is going to get in contact with [place] [facility]. We talked about acupuncture and [...] 06/15/2024 3:15 PM EDT Office Visit Neurosurgery [facility] [address] [place] [address] Siria Choi PA Cervical spondylosis (Primary Dx) 06/14/2024 6:04 PM EDT - 06/14/2024 11:59 PM EDT Hospital Encounter [facility] MRI [address] [place] [phone] Cervical radiculopathy Discharge Disposition: Home or Self Care 06/09/2024 Telephone Neurosurgery [facility] [address] [phone] Jenise Lewis MA Appointment ([employer] No auth required for C/Spine MRI faxed over to [facility]. They will contact pt w/appt. ) 06/08/2024 Telephone Neurosurgery [address] [phone] Corrine Galvan MA 04/28/2024 11:00 AM EDT Office Visit [address] [phone] Chuck Atkins PA Cervical spondylosis (Primary Dx) 04/21/[address] [phone] Jenise Lewis MA Results 04/19/[address] [phone] Corrine Galvan MA from Last 3 Months [...] Routine 06/14/2024 7:14 PM EDT Cervical radiculopathy [facility] DEXA AXIAL SKELETON Routine 02/02/2018 9:04 AM EST Encounter for screening for osteoporosis [facility] SCREENING DIGITAL Routine 02/02/2018 8:35 AM [...] above. -------- FINAL REPORT -------- Dictated By: Israle Jung Dictated Date: 06/15/2024 08:00 ET Assigned Physician: Israel Jung Reviewed and Electronically Signed By: Israel Jung Signed Date: 06/15/2024 10:50 ET Workstation ID: [id number] Transcribed By: Self Edit Transcribed Date: 06/15/2024 [...] artifact secondary to anterior fusion hardware from [id number] C7. No appreciable marrow infiltrative lesion. Alignment [...] Signed Date: 06/15/2024 10:50 ET Workstation ID: [id number] Transcribed By: Self Edit Transcribed Date: 06/15/2024 08:04 ET us Siria MORAES IMG MRI PROCEDURES Final R esult * [facility] DEXA AXIAL SKELETON (02/02/2018 9:04 AM EST) Anatomical Region Laterality Modality Mammography 02/02/2018 7:11 AM EST Narrative 02/02/2018 9:04 AM EST [facility] Diagnostic Imaging Department [address] [place] [id number] Patient: ??ADALI MANCILLA I ?/Age/Sex: 1950 - 67 - F Unit#: ??[id number] ? Location/Status: ??SPDIMAM/REG CLI ? Mnemonic/Ordering Site: ??MAMDEXAAX/SPMAM Ordering Physician: ??KATERINA TOLBERT MD [facility] Dexa Axial Skeleton - 02/02/18 [...] probability of hip fracture of 11.3%. Code 89643 Dictating Physician: ??GALINA RIVERO MD Electronically Signed by: ??GALINA RIVERO MD Dic Date/Time: ??02/02/18901 Sign date/Time: ??02/02/18903 Procedure Note Galina Rivero MD - 01/29/2022 [facility] Diagnostic Imaging Department [address] [place] [address] Patient: ADALI MANCILLA Hari /Age/Sex: 1950 67 - F Unit#: [id number] Location/Status: [facility] CLI Mnemonic[facility] Ordering Physician: KATERINA TOLBERT MD [facility] [...] density of the femurs bilaterally is 0.707 gm/nx1ymptx is 70% of that of young normals [...] probability of hip fracture of 11.3%. Code 34046 Dictating Physician: GALINA RIVERO MD Electronically Signed by: GALINA RIVERO MD Dic Date/Time: 02/02/18901 Sign date/Time: 02/02/18903 us Katerina Tolbert MD IMG BI PROCEDURES Final Re sult * [facility] SCREENING DIGITAL (02/02/2018 8:35 AM EST) Anatomical Region Laterality Modality Mammography 02/02/2018 7:10 AM EST Narrative 02/02/2018 8:35 AM EST [facility] Diagnostic Imaging Department [address] [place] [address] Patient: ??ADALI MANCILLA I ?/Age/Sex: 1950 67 - Unit#: ??[id number] ? Location/Status: ??SPDIMAM/REG CLI ? Mnemonic/Ordering Site: ??DIGSC/SPMAM Ordering Physician: ??JEANETTE CARRERA MD [facility] Screening Digital - 02/02/18 - 0749 INDICATION: SCREENING COMPARISON: [facility] mammograms dating back to ?? 01/12/2013 FINDINGS: CC and MLO views of the breasts were obtained, using full field digital mammography with 3D tomosynthesis views in the MLO projection. Computer aided detection with the [employer] 7.2-H was employed. Benign bilateral breast biopsies [...] date for the next mammogram. ([id number] / [id number]) , ??[id number] Dictating Physician: ??TONI MORA MD Electronically Signed by: ??TONI MORA MD Dic Date/Time: ??02/02/18829 Sign date/Time: ??02/02/18834 Procedure Note Toni Mora MD - 01/29/2022 [facility] Diagnostic Imaging Department [address] [place] [address] Patient: ADALI MANCILLA I /Age/Sex: 1950 - 67 - F Unit#: [id number] Location/Status: SPDIMAM/REG CLI Mnemonic/Ordering Site: [facility] Ordering Physician: JEANETTE CARRERA MD [facility] Screening Digital - 02/02/18 - 0749 INDICATION: SCREENING COMPARISON: [facility] mammograms dating back to 01/12/2013 FINDINGS: CC and MLO views of the breasts were obtained, using full field digital mammography with 3D tomosynthesis views in the MLO projection. Computeraided detection with the [employer] 7.2-H was employed. Benign bilateral breast biopsies [...] a target date for the next mammogram. [id number] / [id number]) , [id number] Dictating Physician: TONI MORA MD Electronically Signed by: TONI MORA MD Dic Date/Time: 02/02/1886 Sign date/Time: 02/02/1833 Jeanette Carrera MD IMG BI PROCEDURES Final Resu lt from Last 3 Months or Most Recently Relevant to Health Maintenance Insurance [employer] Advance Directives Documents on File Type Date Recorded Patient Mental Health Nurse Expl anation Health Care Decision (hx) 07/02/2022 [...] (hx) 07/18/2009 AD HERNANDEZ DIRECTIVE Care Teams Seed Cleaner Operator Relationship Specialty Start Date End Date Sachin Linares NP [address], [place] PCP - General 05/31/22
--- OUTSIDE RECORDS SUMMARY | 2024-06-25 09:05 | XMS_ITS | Data Portability ---
Author Organization [place] - [facility], Allergy Address [address] [place] [id number] Care Team Providers Care Food Production Supervisor Name Role Phone BEBE VELASCO Primary Care Provider [phone] Assessment Encounter Date Assessment Date Assessment LastModified [...] Address Organization Details Recorded Time Bilateral tinnitus 44863226928 02 Active 2018 Tinnitus, bilateral ; Note: Date Diagnosed : 09/16/2018 9:36 AM (H93.13) Not Available [facility] 4 03:05:03 Sensorine ural hearing loss of bilateral ears 077968725 Active 2018 Sensorine ural hearing loss, bilateral ; Note: Date Diagnosed : 09/16/2018 9:36 AM (H90.3) Not Available [facility] 4 03:05:03 Migraine with aura 6924856 Active 2018 Migraine with aura, not intractab le, without status migrainos us; Note: Date Diagnosed : 09/16/2018 9:50 AM (G43.109) Not Available [facility] 4 03:05:05 Dizziness and giddiness 845461275 Active 2018 Dizziness and giddiness ; Note: Date Diagnosed : 09/16/2018 9:36 AM (R42) Not Available [facility] 4 03:05:03 Gastroeso phageal reflux disease without esophagit is 819723314 Active 2018 Gastro-es ophageal reflux disease without esophagit is; Note: Date Diagnosed : 09/16/2018 9:57 AM (K21.9) Not Available [facility] 4 03:05:03 Headache 49562918 Active 2018 Facial pain NOS; Note: Date Diagnosed : 09/16/2018 9:50 AM (R51) Not Available [facility] 4 03:05:02 Recurrent acute sinusitis 611247374 Active 2024 HARPREET HALEY MD [address] [place] [address], [place], [address] , [place] - [facility] 5 16:29:55 Allergic rhinitis 73919661 Active 2024 HARPREET HALEY MD [address] [place] [address], [place], [address] , [place] - [facility] 5 16:30:02 Problem Notes None recorded. Procedures Surgical History Date Name Laterality Status Provider Name and Address Organization Details Recorded Time 03/12/2024 Comp Audio with Tymps - 90109 & 79257 completed ADALI ASKEW [place], CCC-A [address] [address], [place], [address], [facility] - [facility] 03/12/2024 16:00:59 03/12/2024 NasalEndosc opy_DP completed HARPREET HALEY MD [address] [place] [address],[address] [address], [place], [address], [facility] 03/12/2024 16:29:37 Imaging Results Imaging Date Name Status LastModified by OrganflipClass ation Details LastModified Time 03/15/2024 audiogram completed BARCODE Information no t available 03/15/2024 13:28:12 Procedure Notes None recorded. Medical Equipment None Reported. Allergies Allergen ID Allergen Name Allergen Category Reaction Reaction Severity Criticality Documentation Date Start Date Code Code System Note Provider Name and Address Organization Details Recorded Time 069096 tacrolimu s medicatio n Not available Not available Not available 03/12/2024 76357 RxNorm Zoraida Potvin null, [place] - [facility] 15:11:51 494290 Nexletol medicatio n Not available Not available Not available 03/12/2024 84931 09 RxNorm Zoraida Potvin [place], [place] - [facility] 15:12:16 830803 Miebo medicatio n Not available Not available Not available 03/12/2024 24911 52 RxNorm Zoraida Potvin [place], [place] - [facility] 15:12:27 553419 sulindac medicatio n Not available Not available Not available 03/12/2024 52558 RxNorm Zoraida Potvin null, [place] - [facility] 15:12:36 408965 Fosamax medicatio n Not available Not available Not available 03/12/2024 76703 5 RxNorm Zoraida Potvin null, [place] - [facility] 5 15:12:46 482312 latex environme nt,medica tion Not available Not available Not available 03/12/2024 37044 91 RxNorm Zoraida Potvin franko [place] - [facility] 15:13:27 941681 Dexilant medicatio n Not available Not available Not available 03/12/2024 49505 1 RxNorm Zoraida abdul [facility] 15:13:54 161165 doxycycli ne Not available Not available Not available Not available 03/12/2024 3640 RxNorm Zoraida Marsh franko [facility] 15:14:23 Medications Name Sig Start Date [...] Smoking Status Former Smoker HARPREET HALEY MD [address] [place] [address], [place], [address], [facility] - [facility] 03/12/2024 09:06:30 How Much Tobacco Do [...] Disorder N Anesthesia Complications N Heart Attack (NH) N Other Skin Condition N Diabetes N [...] SNOMED-CT Code Diagnosis ICD10 Code Diagnosis Note [id number] HARPREET HALEY MD [facility] [address] [address] 03/12/2024 14:19:20 03/12/2024 16:35:50 Sensorineural hearing loss of bilateral ears 125556122 H90.3 Audiologic al evaluation results: Right ear: [...] maintain a hermetic seal}} Recurrent acute sinusitis 971310899 J01.91 Allergic rhinitis 447449 04 J30.9 Health Concerns Section Related Observation LastModified by Organization Detai ls LastModified Time None Recorded Concern Status LastModified by Organization Details LastModified Time None Recorded Advance Directives Directive None Recorded Payers Insurance Date Sequence Insurance Name Policy Number Policy Gill Covered Member ID Gill Member ID Guarantor Name 03/12/2024 1 [employer] (MEDICARE SUPPLEMENT) Adali I Houde [id number] Adali I Houde 03/12/2024 1 [place] [facility] Adali I Houde [id number] Adali I Houde 03/12/2024 1 [employer] Adali I Houde [id number] Adali I Houde 05/26/2024 1 [facility] - MEDICARE PREFERRED (MEDICARE REPLACEMENT HMO) HAM Adali I Houde [id number] Adali I Houde 05/26/2024 1 [facility] (MEDICARE REPLACEMENT/A DVANTAGE - PPO) [id number] Adali I Houde [id number] Adali I Houde Notes Date Note Type [...] her sinus congestion symptoms HARPREET HALEY MD [address] [place] [address], [place], [address], [facility] - [facility] 03/12/2024 16:35:50 OBGyn Episode No OBEpisode recorded.
--- OUTSIDE RECORDS SUMMARY | 2024-06-25 09:05 | XMS_ITS | Patient Health Record ---
Author Organization [facility] Address [address] [place] [address] Care Team Providers Care Wetlands Technician Name Role Phone BBEE VELASCO M.D Primary Care Provider LIZANDRO Bean Unavailable [phone] Allergies Allergen (clinical drug ingredient) Drug/Non Drug Allergy documented on EMR Reaction Allergy Type Onset Date Status 12 Hour Nasal [place] Unknown Drug Allergy Active risedronate Actonel Unknown [...] Active doxycycline Doxycycline Unknown Drug Allergy Act ahi Latex Latex Unknown Allergy Active lisinopril Lisinopril [...] Status Risk Notes Problem Postmenopausal atrophic vaginitis (42929772) Postmenopausal atrophic vaginitis (N95.2) Active confirmed Problem Age-related osteoporosis (605754126) Age-related osteoporosis without current pathological fracture (M81.0) Active confirmed Problem Essential hypertension (21414752) Essential (primary) hypertension (I10) Active confirmed Problem Hyperlipidemia (30506054) Hyperlipidemia, unspecified (E78.5) Active confirmed Problem Uncomplicated asthma (disorder) (057914720) Unspecified asthma, uncomplicated (J45.909) Active confirmed Problem Gastro-esophageal reflux disease without esophagitis (546527993) Gastro-esophageal reflux disease without esophagitis (K21.9) Active confirmed Plan Of Treatment No Information Insurance Providers Payer Name Payer Address Payer Phone Subscriber Number Group Number Insured Name Patient Relationship to Insured Coverage Start Date Coverage End Date MEDICARE [address] [facility], [place] [id number] JORGITO MANCILLA Self - patient is the [...]
--- NOTE | 2024-06-25 09:09 | A.OFFVIS_ITS ---
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 Required: No Allergies dexlansoprazole [From DEXILANT] Allergy (Severe, Verified 06/23/24 07:56) dizziness, change in HR risedronate sodium [From ACTONEL] Allergy (Severe, Verified 06/23/24 07:56) chest discomfort Cuefqly-VGN-NcM Reductase Inhibitor [[id number]-[id number] REDUCTASE INHIBITOR] Allergy (Severe, Verified 06/23/24 07:56) JOINT PAIN tramadol [TRAMADOL] Allergy (Severe, Verified 06/23/24 07:56) THROAT TIGHTNESS amlodipine [AMLODIPINE] Allergy (Intermediate, Verified 06/23/24 07:56) PALIPITATIONS Atrovent Allergy (Intermediate, Verified 06/23/24 07:56) Cough baclofen [BACLOFEN] Allergy (Intermediate, Verified 06/23/24 07:56) LETHARGY Beta-Blockers (Beta-Adrenergic Bloc Allergy (Intermediate, Verified 06/23/24 07:56) BRADYCARDIA budesonide [From SYMBICORT] Allergy (Intermediate, Verified 06/23/24 07:56) HOARSENESS Chocolate Allergy (Intermediate, Verified 06/23/24 07:56) GERD ezetimibe [From ZETIA] Allergy (Intermediate, Verified 06/23/24 07:56) JOINT PAIN, ELEVATED CPK fluticasone [From ADVAIR DISKUS] Allergy (Intermediate, Verified 06/23/24 07:56) HTN glucosamine Allergy (Intermediate, Verified 06/23/24 07:56) LE edema ibandronate sodium [From BONIVA] Allergy (Intermediate, Verified 06/23/24 07:56) CHEST PAIN latex [LATEX] Allergy (Intermediate, Verified 06/23/24 07:56) RASH-SENSITIVITY lisinopril [LISINOPRIL] Allergy (Intermediate, Verified 06/23/24 07:56) COUGH, really bad cough meloxicam [From MOBIC] Allergy (Intermediate, Verified 06/23/24 07:56) GI UPSET mometasone furoate [From DULERA] Allergy (Intermediate, Verified 06/23/24 07:56) COUGH niacin Allergy (Intermediate, Verified 06/23/24 07:56) Flushing Penicillins [PENICILLINS] Allergy (Intermediate, Verified 06/23/24 07:56) RASH pregabalin [From LYRICA] Allergy (Intermediate, Verified 06/23/24 07:56) GERD flare up raloxifene [From EVISTA] Allergy (Intermediate, Verified 06/23/24 07:56) GERD rofecoxib [From Vioxx] Allergy (Intermediate, Verified 06/23/24 07:56) ankle swelling salmeterol [From ADVAIR DISKUS] Allergy (Intermediate, Verified 06/23/24 07:56) HTN scallops [SCALLOPS] Allergy (Intermediate, Verified 06/23/24 07:56) NAUSEA & VOMITING sertraline [From ZOLOFT] Allergy (Intermediate, Verified 06/23/24 07:56) SKIN CRAWLING spironolactone [SPIRONOLACTONE] Allergy (Intermediate, Verified 06/23/24 07:56) RASH, ?? psoriasis strawberry [STRAWBERRY] Allergy (Intermediate, Verified 06/23/24 07:56) ITCHING tiotropium [From SPIRIVA WITH HANDIHALER] Allergy (Intermediate, Verified 06/23/24 07:56) RAW THROAT, pharyngitis verapamil [VERAPAMIL] Allergy (Intermediate, Verified 06/23/24 07:56) IRREGULAR HEARTBEAT esomeprazole [Nexium] Allergy (Mild, Verified 06/23/24 07:56) did not resolve GERD naproxen [From ALEVE] Allergy (Mild, Verified 06/23/24 07:56) FLUSH omeprazole Allergy (Mild, Verified 06/23/24 07:56) did not resolve GERD tacrolimus Allergy (Mild, Verified 06/23/24 07:56) Rash adhesive [ADHESIVE] Allergy (Unknown, Verified 06/23/24 07:56) RASH doxycycline [DOXYCYCLINE] Allergy (Unknown, Verified 06/23/24 07:56) SEVERE NOYOLA, HEARTBURN, joint pain gabapentin [From NEURONTIN] Allergy (Unknown, Verified 06/23/24 07:56) leg swelling, SOB metoclopramide [From REGLAN] Allergy (Unknown, Verified 06/23/24 07:56) LETHARGY monosodium glutamate [MSG] Allergy (Unknown, Verified 06/23/24 07:56) HEADACHE, increased HR lifitegrast [From Xiidra] Allergy (Verified 06/23/24 07:56) blurred vision, headache, eye swelling metoprolol Adverse Reaction (Severe, Verified 06/23/24 07:56) Severe bradycardia alendronate sodium [From Fosamax] Adverse Reaction (Intermediate, Verified 06/23/24 07:56) Joint Pain amitriptyline Adverse Reaction (Intermediate, Verified 06/23/24 07:56) Agitated cyclosporine [From Cequa] Adverse Reaction (Intermediate, Verified 06/23/24 07:56) Eye Swelling fluticasone furoate [From Trelegy Ellipta] Adverse Reaction (Intermediate, Verified 06/23/24 07:56) asthma exacerbation perfluorohexyloctane [From Miebo] Adverse Reaction (Intermediate, Verified 06/23/24 07:56) Eye Swelling tobramycin [From Tobrex] Adverse Reaction (Intermediate, Verified 06/23/24 07:56) Eye Swelling umeclidinium [From Trelegy Ellipta] Adverse Reaction (Intermediate, Verified 06/23/24 07:56) asthma exacerbation vilanterol [From Trelegy Ellipta] Adverse Reaction (Intermediate, Verified 06/23/24 07:56) asthma exacerbation azelastine Adverse Reaction (Mild, Verified 06/23/24 07:56) Gastrointestinal Upset hi Adverse Reaction (Intermediate, Uncoded 06/23/24 07:56) Itchy Eyes Sulindac Adverse Reaction (Intermediate, Uncoded 06/23/24 07:56) Nausea, pain Medication List - Last Reconciled 06/25/24 by Stormy Torres, GAS COMPRESSOR TURBINE OPERATOR acetaminophen ER (Tylenol Arthritis Pain) 650 mg PO Q12H aspirin (Adult Aspirin Regimen) 81 mg PO DAILY beclomethasone dipropionate 80 mcg/actuation (Qvar RediHaler) 1 inh inhalation BID 30 days Bifidobacterium infantis (Align (B.infantis)) 4 mg PO DAILY cetirizine (Zyrtec) 10 mg PO DAILY PRN cholecalciferol (vitamin D3) 25 mcg PO DAILY 30 days cyclosporine 0.05% (Restasis) 1 drp ophthalmic (eye) Q12H denosumab (Prolia) 60 mg subcut [id number] dextran 70-hypromellose (PF) 0.1-0.3 % (Artificial Tears (PF)) 1 drp ophthalmic (eye) BEDTIME docusate sodium (Colace) 100 mg PO BID flunisolide 2 sprays intranasal BID PRN levalbuterol tartrate 45 mcg/actuation 2 puffs inhalation Q4H PRN lorazepam (Ativan) 0.5 mg PO BID PRN losartan-hydrochlorothiazide 50-12.5 mg 1 tab PO DAILY magnesium oxide 500 mg PO DAILY montelukast 10 mg PO DAILY 90 days pantoprazole 40 mg PO BID Repatha SureClick (evolocumab) 140 mg subcut Q2W NS sucralfate 1 g PO BID 90 days HPI HPI TP Occipital Nerve Block: Details: History of Present Illness The patient is a 74-year-old female presenting with trigger point and ulnar nerve-related pain. She reports cervical and shoulder discomfort following cervical fusion surgery, with two plates in place. The patient experiences numbness and paresthesia in her ring and little fingers, raising suspicion of ulnar nerve entrapment. Previously recommended ibuprofen was halted during her bone growth stimulation therapy to prevent hindrance to fusion. An upcoming EMG aims to evaluate possible entrapment. Past treatment with trigger point injections aimed to alleviate ongoing pain. Pain Description - Onset: Chronic, post-cervical spine surgery - Quality: Numbness, pins and needles sensation - Location: Cervical region, right shoulder, ring and little fingers - Radiation: Extending from neck down the right arm - Exacerbating Factors: Specific head movements, particularly to the right - Alleviating Factors: Trigger point injections partially reduce symptoms - Impact on Functions: Interference with neck mobility, hand and finger use Physical Exam - Musculoskeletal- Trigger points identified in the right trapezius, rhomboid, and latissimus dorsi muscles. Results - Tests and diagnostics: Planned EMG to investigate potential ulnar nerve entrapment Pain Management - Affect: Pain affects functionality but patient maintains a high pain tolerance - Analgesia: Trigger point injections; cessation of ibuprofen due to fusion interference - Adverse Effects: None reported from current treatment - Activities of Daily Living: Pain affects neck movement, and hand function; goals include pain reduction and maintaining activity levels - Aberrant Drug Related Behaviors: None reported Procedure - Trigger point injections on the right trapezius, rhomboid, and left latissimus dorsi muscles - Informed consent obtained - Procedure performed with 0.5 to 1 mL of 0.25% ropivacaine per trigger area with 25g needle - Patient tolerated the procedure well with normal respiratory effort post- injection, no blood loss - Right landmark guided GONB with 3 ml ropivacaine using a 25g needle [facility] Medical History Esophageal spasm Hx of carcinoma of bladder Bladder carcinoma History of trigger finger Cervical radiculitis Chronic sinusitis GERD (gastroesophageal reflux disease) FRANCESCA (obstructive sleep apnea) CAD (coronary artery disease) History of primary hyperparathyroidism Non-toxic multinodular goiter Osteoporosis Pulmonary nodules H/O gastroesophageal reflux (GERD) HLD (hyperlipidemia) HTN (hypertension) COPD (chronic obstructive pulmonary disease) Asthma History of aneurysm Migraine Depression PTSD (post-traumatic stress disorder) History of panic attacks Anxiety Edema History of deviated nasal septum Medial epicondylitis of left elbow Fusion of spine, cervical region Surgical History History of carpal tunnel release Hx of cystoscopy H/O cervical spine surgery Hx of hand surgery Hx of right inguinal hernia repair History of hernia repair Hx of colonoscopy History of esophagogastroduodenoscopy (EGD) S/P repair of paraesophageal hernia H/O decompression of ulnar nerve Status post ablation of incompetent vein using laser History of cardiac catheterization History of eyelid surgery History of appendectomy History of parathyroidectomy History of cholecystectomy Hx of cataract surgery Hx of shoulder surgery S/P cubital tunnel release S/P arthroscopic surgery of right knee History of lumpectomy of both breasts History of hysterectomy Hx of adenoidectomy Hx of tonsillectomy Hx of eye surgery Family History Father Liver cancer Psoriasis Cancer Mental health disorder Mother Cervical cancer Ovarian cancer Heart attack Substance use disorder Social History Household Members: Children and None Housing: House Alcohol intake: current Alcohol intake frequency: does not drink Patient Tobacco Use Status: Former Tobacco user Tobacco use type: Cigarette e-Cigarette/Vaping Use: Never Used Second Hand Smoke Exposure: No service: No Current occupational status: employed 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, 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 Cognitive needs: No Hearing needs: No Vision needs: Yes Physical Exam Vital Signs: Last Vital Signs Pulse 82 06/25/24 09:10 BP 132/86 06/25/24 09:10 Pulse Ox 97 06/25/24 09:10 Oxygen Delivery Method Room Air 06/25/24 09:10 BMI result Body Mass Index 12.1 Assessment & Plan Assessment & Plan (1) Myofascial neck pain: Code(s): M54.2 - Cervicalgia Category: Medical (2) Failed back syndrome of cervical spine: Code(s): M96.1 - Postlaminectomy syndrome, not elsewhere classified Category: Medical Plan Plan - Continue trigger point injections for pain control - Conduct EMG testing as scheduled to evaluate ulnar nerve entrapment - Reevaluate pain management plan in four to six weeks - Maintain avoidance of ibuprofen to support bone fusion - Consideration of alternative therapies if needed - Educated on post-surgical pain complex nature Patient was informed and verbally consented to the use of an ambient scribe for clinic note documentation during this visit. Discussion Notes We discussed the management plan and the complexity of her pain related to post- surgical changes and potential ulnar nerve involvement. The patient was informed about the purpose and scheduling of the EMG for further investigation of possible nerve entrapment. I explained the reasoning for avoiding ibuprofen during her bone growth stimulation therapy. Continued trigger point injections were agreed upon for symptomatic relief. Potential alternatives were considered should the current treatments prove insufficient. We reviewed the risks, benefits, and nature of her condition with emphasis on monitoring and reassessment. Follow-up instructions and expectations for therapeutic efficacy were provided. Patient Instructions - Continue with scheduled trigger point injections - Attend EMG appointment with Dr. Rachel as scheduled - Avoid taking ibuprofen during bone growth stimulation - Monitor symptoms and report any significant changes or worsening - Return for follow-up in four to six weeks as discussed - Maintain activity within pain limits and avoid problematic motions Coding Level of Care Code Est Pt Level 3 (72933) Diagnoses Myofascial neck pain M54.2 Failed back syndrome of cervical spine M96.1
[2024-06-25 09:10] VITALS: BP 132/86; PULSE 82; O2SAT 97; BMI 12.1
== END 2024-06-25 09:50 | disposition home or self-care (01) ==
LOC: HO.PMC 08:52
PROVIDERS: PCP Nurse Practitioner Family; Visit Provider Internal Medicine
DX: M96.1 Postlaminectomy syndrome, not elsewhere classified (principal); M54.2 Cervicalgia; M79.18 Myalgia, other site
CPT/HCPCS: 20553; 99213

== ENCOUNTER → 2024-06-25 08:51 | Outpatient (BNVA) | payer MEDICARE, SELFPAY | PROVIDERS: PCP Nurse Practitioner Family; Visit Provider Internal Medicine | DX: M79.18 Myalgia, other site (principal); M54.2 Cervicalgia; M96.1 Postlaminectomy syndrome, not elsewhere classified | CPT/HCPCS: 20553; 99212 ==

== ENCOUNTER 2024-06-30 07:43 | Outpatient (AMB) | payer OTHER, SELFPAY ==
--- NOTE | 2024-06-30 07:49 | MHC.OFFVIS ---
Vital Signs 06/30/24 07:52 Height 4 ft 11.92 in Weight 159 lb 6.307 oz BMI 31.2 BP 112/82 Blood Pressure Location Rt brachial Position Sitting Pulse 76 Pulse Source Pulse Oximeter Pulse Oximetry (%) 99 Oxygen Delivery Method Room Air Intake Visit Reasons: f/u Osteoporosis and Prolia Intake Note: Patient present today for Osteoporosis and Prolia office visit. 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 Accompanied by: Self / Same As Patient Allergies dexlansoprazole [From DEXILANT] Allergy (Severe, Verified 06/30/24 07:52) dizziness, change in HR risedronate sodium [From ACTONEL] Allergy (Severe, Verified 06/30/24 07:52) chest discomfort Mapozdc-YGU-BeR Reductase Inhibitor [IKLSNFV-RIF-DQV REDUCTASE INHIBITOR] Allergy (Severe, Verified 06/30/24 07:52) JOINT PAIN tramadol [TRAMADOL] Allergy (Severe, Verified 06/30/24 07:52) THROAT TIGHTNESS amlodipine [AMLODIPINE] Allergy (Intermediate, Verified 06/30/24 07:52) PALIPITATIONS Atrovent Allergy (Intermediate, Verified 06/30/24 07:52) Cough baclofen [BACLOFEN] Allergy (Intermediate, Verified 06/30/24 07:52) LETHARGY Beta-Blockers (Beta-Adrenergic Bloc Allergy (Intermediate, Verified 06/30/24 07:52) BRADYCARDIA budesonide [From SYMBICORT] Allergy (Intermediate, Verified 06/30/24 07:52) HOARSENESS Chocolate Allergy (Intermediate, Verified 06/30/24 07:52) GERD ezetimibe [From ZETIA] Allergy (Intermediate, Verified 06/30/24 07:52) JOINT PAIN, ELEVATED CPK fluticasone [From ADVAIR DISKUS] Allergy (Intermediate, Verified 06/30/24 07:52) HTN glucosamine Allergy (Intermediate, Verified 06/30/24 07:52) LE edema ibandronate sodium [From BONIVA] Allergy (Intermediate, Verified 06/30/24 07:52) CHEST PAIN latex [LATEX] Allergy (Intermediate, Verified 06/30/24 07:52) RASH-SENSITIVITY lisinopril [LISINOPRIL] Allergy (Intermediate, Verified 06/30/24 07:52) COUGH, really bad cough meloxicam [From MOBIC] Allergy (Intermediate, Verified 06/30/24 07:52) GI UPSET mometasone furoate [From DULERA] Allergy (Intermediate, Verified 06/30/24 07:52) COUGH niacin Allergy (Intermediate, Verified 06/30/24 07:52) Flushing Penicillins [PENICILLINS] Allergy (Intermediate, Verified 06/30/24 07:52) RASH pregabalin [From LYRICA] Allergy (Intermediate, Verified 06/30/24 07:52) GERD flare up raloxifene [From EVISTA] Allergy (Intermediate, Verified 06/30/24 07:52) GERD rofecoxib [From Vioxx] Allergy (Intermediate, Verified 06/30/24 07:52) ankle swelling salmeterol [From ADVAIR DISKUS] Allergy (Intermediate, Verified 06/30/24 07:52) HTN scallops [SCALLOPS] Allergy (Intermediate, Verified 06/30/24 07:52) NAUSEA & VOMITING sertraline [From ZOLOFT] Allergy (Intermediate, Verified 06/30/24 07:52) SKIN CRAWLING spironolactone [SPIRONOLACTONE] Allergy (Intermediate, Verified 06/30/24 07:52) RASH, ?? psoriasis strawberry [STRAWBERRY] Allergy (Intermediate, Verified 06/30/24 07:52) ITCHING tiotropium [From SPIRIVA WITH HANDIHALER] Allergy (Intermediate, Verified 06/30/24 07:52) RAW THROAT, pharyngitis verapamil [VERAPAMIL] Allergy (Intermediate, Verified 06/30/24 07:52) IRREGULAR HEARTBEAT esomeprazole [Nexium] Allergy (Mild, Verified 06/30/24 07:52) did not resolve GERD naproxen [From ALEVE] Allergy (Mild, Verified 06/30/24 07:52) FLUSH omeprazole Allergy (Mild, Verified 06/30/24 07:52) did not resolve GERD tacrolimus Allergy (Mild, Verified 06/30/24 07:52) Rash adhesive [ADHESIVE] Allergy (Unknown, Verified 06/30/24 07:52) RASH doxycycline [DOXYCYCLINE] Allergy (Unknown, Verified 06/30/24 07:52) SEVERE NOYOLA, HEARTBURN, joint pain gabapentin [From NEURONTIN] Allergy (Unknown, Verified 06/30/24 07:52) leg swelling, SOB metoclopramide [From REGLAN] Allergy (Unknown, Verified 06/30/24 07:52) LETHARGY monosodium glutamate [MSG] Allergy (Unknown, Verified 06/30/24 07:52) HEADACHE, increased HR lifitegrast [From Xiidra] Allergy (Verified 06/30/24 07:52) blurred vision, headache, eye swelling metoprolol Adverse Reaction (Severe, Verified 06/30/24 07:52) Severe bradycardia alendronate sodium [From Fosamax] Adverse Reaction (Intermediate, Verified 06/30/24 07:52) Joint Pain amitriptyline Adverse Reaction (Intermediate, Verified 06/30/24 07:52) Agitated cyclosporine [From Cequa] Adverse Reaction (Intermediate, Verified 06/30/24 07:52) Eye Swelling fluticasone furoate [From Trelegy Ellipta] Adverse Reaction (Intermediate, Verified 06/30/24 07:52) asthma exacerbation perfluorohexyloctane [From Miebo] Adverse Reaction (Intermediate, Verified 06/30/24 07:52) Eye Swelling tobramycin [From Tobrex] Adverse Reaction (Intermediate, Verified 06/30/24 07:52) Eye Swelling umeclidinium [From Trelegy Ellipta] Adverse Reaction (Intermediate, Verified 06/30/24 07:52) asthma exacerbation vilanterol [From Trelegy Ellipta] Adverse Reaction (Intermediate, Verified 06/30/24 07:52) asthma exacerbation azelastine Adverse Reaction (Mild, Verified 06/30/24 07:52) Gastrointestinal Upset hi Adverse Reaction (Intermediate, Uncoded 06/30/24 07:52) Itchy Eyes Sulindac Adverse Reaction (Intermediate, Uncoded 06/30/24 07:52) Nausea, pain Medication List - Last Reconciled 06/30/24 by Manas Doss MD acetaminophen ER (Tylenol Arthritis Pain) 650 mg PO Q12H aspirin (Adult Aspirin Regimen) 81 mg PO DAILY beclomethasone dipropionate 80 mcg/actuation (Qvar RediHaler) 1 inh inhalation BID 30 days Bifidobacterium infantis (Align (B.infantis)) 4 mg PO DAILY cetirizine (Zyrtec) 10 mg PO DAILY PRN cholecalciferol (vitamin D3) 25 mcg PO DAILY 30 days cyclosporine 0.05% (Restasis) 1 drp ophthalmic (eye) Q12H denosumab (Prolia) 60 mg subcut P0APAOOC dextran 70-hypromellose (PF) 0.1-0.3 % (Artificial Tears (PF)) 1 drp ophthalmic (eye) BEDTIME docusate sodium (Colace) 100 mg PO BID flunisolide 2 sprays intranasal BID PRN levalbuterol tartrate 45 mcg/actuation 2 puffs inhalation Q4H PRN lorazepam (Ativan) 0.5 mg PO BID PRN losartan-hydrochlorothiazide 50-12.5 mg 1 tab PO DAILY magnesium oxide 500 mg PO DAILY montelukast 10 mg PO DAILY 90 days pantoprazole 40 mg PO BID Repatha SureClick (evolocumab) 140 mg subcut Q2W NS sucralfate 1 g PO BID 90 days HPI Comments Details: 74 yo female today for fup visit, l for fup NTMNG, osteoporosis. She is feeling well. She is taking Viactiv twice a day and vitamin-D 1000 international units daily. She is currently on Evenity and has had 12 doses Could not tolerate Boniva after 3 wks. Boniva caused position . Transitioning to Prolia today She had side effect with Bisphosphonates. she had chest pain with 2 oral bisphosphonates. Secondary workup was normal except for low urinary calcium but urinary creatinine was low as well. Started Evenity took 2 doses last dose was after booster 4 days later and had gastrointestinal side effects . First dose caused no problem. Patient has h/o of primary hyperparathyroidism, s/p parathyroidectomy 3 and 1/2 on 2012, osteoporosis. she has h/o in situ cervical cancer, treated with hysterectomy. She has extensive FH of cancer, Her sister has Torin's disease, had thyroidectomy. Denies cold or heat intolerance, weight loss or gain, post menopausal, diarrhea, constipation, insomnia, fatigue, dry skin, dysphagia, dyspnea, dysphonia, tremors, + occasional palpitations, denies irritability, anxiety. DEXA scan reviewed over years. 2011 LS BMD 0.963 gm/cm2, Score - 1.7 Femur BMD 0.707 GM/cm2, Score - 2.4 FN R T score -2.7 L -3.0 Forearm BMD 0.698 gm/cm2, T score - 2.1 2013 LS BMD 0.947 gm/cm2, Tscore - 1.8 Forearm BMD 0.684 gm/cm2, Tscore - 2.3 2016 LS BMD 0.947 gm/cm2, Tscore - 1.8 Femur BMD 0.703 gm/cm2, Tscore - 2.4 FN R -2.7 from -2.5, FN L -3.3 from -3.0 Forearm BMD 0.656 gm/cm2, Tscore - 2.6 02/02/18 [facility] LS BMD 0.957 gm/cm2, T-score -1.7 Femur BMD 0.707 gm/cm2, T-score -2.4 Right femoral neck -2.7 , left FN T score -3.0 DEXA 02/18/2020 AP SPINE L1-L2 (excluding L3 and L4): The data of L1-L4 has been changed to exclude the L3 and L4 vertebral bodies, because degenerative changes at these levels may cause overestimation of lumbar spine density. BMD 0.798 g/cm2, Z-score -1.6, T-score -3.1, osteoporosis. LEFT FEMUR, NECK: BMD 0.534 g/cm2, Z-score -2.1, T-score -3.6, osteoporosis. LEFT FEMUR, TOTAL: BMD 0.626 g/cm2, Z-score -1.7, T-score -3.0, osteoporosis. 12/19/17 US thyroid Right Thyroid Lobe: 3.3 x 1.2 x 1.6 cm, volume 3.1 mL. Previously 3.2 x 1.0 x 1.2 cm, volume 2.0 mL. Left Thyroid Lobe: 3.2 x 1.1 x 1.3 cm, volume 2.3 mL. Previously 3.2 x 0.9 x 1.2 cm, volume 1.8 mL. Isthmus: 0.2 cm in maximum AP dimension. Previously 0.3 cm. PARENCHYMA: The gland echotexture is homogeneous. Thyroid vascularity is normal. RIGHT THYROID LOBE: There are 3 nodules seen. 1. Location: Mid/upper pole Size: 0.2 x 0.2 x 0.2 cm. Previous: 0.2 x 0.1 x 0.2 cm. Nodule characteristics: Hypoechoic with smooth margins and no intranodular flow 2. Location: Upper/mid pole Size: 0.2 x 0.2 x 0.2 cm. Previous: 0.2 x 0.2 x 0.1 cm. Nodule characteristics: Hypoechoic with smooth margins and no intranodular flow 3. Location: Medial midpole Size: 0.5 x 0.3 x 0.4 cm. Previous: 0.4 x 0.2 x 0.4 cm. Nodule characteristics: Hypoechoic with smooth margins and no intranodular flow ISTHMUS: No nodules. LEFT THYROID LOBE: There is 1 nodule seen. 1. Location: Midpole Size: 0.4 x 0.3 x 0.3 cm. Previous: 0.3 x 0.3 x 0.2 cm. Nodule characteristics: Hypoechoic with smooth margins and no intranodular flow. NODES: No lymphadenopathy is seen in the tissue surrounding the thyroid gland. She is complaining of some dysphagia Laboratory Tests 10/28/19 12/08/19 06:18 12:32 Creatinine 0.83 Estimated GFR > 60 Calcium 8.6 8.6 Alkaline Phosphatase 112 Albumin 4.1 Completed a course of Evenity. Now on Prolia as well as calcium Viactiv 1500 mg BID and vitamin D supplementation. No fracture since last visit The patient is a 74-year-old female presenting with concerns regarding osteoporosis treatment and associated calcium and hypertension management. She is receiving Prolia but reports low calcium in a 24-hour urine collection, complicating treatment efficacy. The patient is currently on hydrochlorothiazide, complicating calcium measurement due to its effect on urinary calcium excretion. Attempts to stop hydrochlorothiazide have resulted in elevated blood pressure. Her calcium supplementation has been adjusted to meet dietary needs, taking five Viactives 650 mg tablets daily, spread across morning and evening. Previous surgical intervention for spinal fusion has resulted in incomplete fusion, with associated musculoskeletal challenges. A bladder tumor, addressed surgically, was low-grade with no current oncological recommendations for adjustments in her current regimen. The patient?s diet includes the regular intake of dairy products like yogurt and cheese, as well as almond milk. She consumes five calcium citrate (Viacives) tablets daily to ensure adequate calcium intake, divided as three in the morning and two in the evening. Adheres to a balanced diet plan but has needed to adjust intake to compensate for low urinary calcium levels. [facility] Medical History Esophageal spasm Hx of carcinoma of bladder Bladder carcinoma History of trigger finger Cervical radiculitis Chronic sinusitis GERD (gastroesophageal reflux disease) FRANCESCA (obstructive sleep apnea) CAD (coronary artery disease) History of primary hyperparathyroidism Non-toxic multinodular goiter Osteoporosis Pulmonary nodules H/O gastroesophageal reflux (GERD) HLD (hyperlipidemia) HTN (hypertension) COPD (chronic obstructive pulmonary disease) Asthma History of aneurysm Migraine Depression PTSD (post-traumatic stress disorder) History of panic attacks Anxiety Edema History of deviated nasal septum Medial epicondylitis of left elbow Fusion of spine, cervical region Surgical History History of carpal tunnel release Hx of cystoscopy H/O cervical spine surgery Hx of hand surgery Hx of right inguinal hernia repair History of hernia repair Hx of colonoscopy History of esophagogastroduodenoscopy (EGD) S/P repair of paraesophageal hernia H/O decompression of ulnar nerve Status post ablation of incompetent vein using laser History of cardiac catheterization History of eyelid surgery History of appendectomy History of parathyroidectomy History of cholecystectomy Hx of cataract surgery Hx of shoulder surgery S/P cubital tunnel release S/P arthroscopic surgery of right knee History of lumpectomy of both breasts History of hysterectomy Hx of adenoidectomy Hx of tonsillectomy Hx of eye surgery Family History Father Liver cancer Psoriasis Cancer Mental health disorder Mother Cervical cancer Ovarian cancer Heart attack Substance use disorder Social History Household Members: Children and None Housing: House Alcohol intake: current Alcohol intake frequency: does not drink Patient Tobacco Use Status: Former Tobacco user Tobacco use type: Cigarette e-Cigarette/Vaping Use: Never Used Second Hand Smoke Exposure: No service: No Current occupational status: employed 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, 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 Cognitive needs: No Hearing needs: No Vision needs: Yes Physical Exam Vital Signs: Last Vital Signs Pulse 76 06/30/24 07:52 BP 112/82 06/30/24 07:52 Pulse Ox 99 06/30/24 07:52 Oxygen Delivery Method Room Air 06/30/24 07:52 BMI result Body Mass Index 31.2 Office Meds Prolia 60 mg/mL subcutaneous syringe Performing Provider: Manas Doss MD [place] [facility] Administered by: Aimee Gonzalez RN on 06/30/24 08:27 Dose Route Admin Location Dispensed Lot Number Expiration Date [facility] [employer] 60 mg subcut left upper arm 1 mL [id number] 09/09/26 71844-875-48 AMGEN Comments: Patient tolerated injection well, denies any problems with previous injections. Assessment & Plan Assessment & Plan (1) Osteoporosis: Code(s): M81.0 - Age-related osteoporosis without current pathological fracture Category: Medical Plan: This 74-year-old white female with a history of osteoporosis previous intolerance to oral bisphosphonates. Secondary workup is negative except for low urinary calcium still low for corrected urinary creatinine. She finished a course of Evenity. Now on Prolia since 06/2023 The low urinary calcium may be reflection of the HCTZ and I will message the patient's primary care provider /business process consultant to discontinue the HCTZ prior to repeat 24 hour urine collection in 2 months. We will continue Prolia with optimal duration 2-3 years time or until patient reaches goal of osteopenia and then transition to a bisphosphonate possibly Reclast . 1. Osteoporosis Prolia is prescribed to enhance bone density and prevent fractures. Given previous bone density readings and issues with calcium absorption, dietary intake is being carefully monitored. Hydrochlorothiazide's impact on urinary calcium levels necessitates further evaluation. 3. Hypocalciuria Managing calcium levels through monitoring and adjustments, closely tied with the management plan for stopping or modifying hydrochlorothiazide temporarily. I discussed with the patient her current osteoporosis treatment with Prolia and potential interactions with her hypertensive management through hydrochlorothiazide. We reviewed the importance of accurate calcium level assessment, with potential temporary changes in antihypertensive medication. I have sent communications to her other healthcare providers concerning the necessity of potentially replacing hydrochlorothiazide temporarily. We also reviewed the implications of her past diagnoses such as bladder cancer, confirming no current contraindications with her treatment plan. The necessity of maintaining calcium supplementation was highlighted, given her low levels noted in previous tests. Options of alternative medications were explored, focusing on balance with existing health conditions. I stressed the importance of only making changes after further collective input with her team of healthcare providers. - Continue taking Prolia as scheduled for osteoporosis. - Maintain current calcium supplementation, ensuring dietary intake is adequate. - Do not stop or alter hydrochlorothiazide until further notice, pending advice from other healthcare professionals. - - Maintain precautions for fall prevention and adequate exercise as recommended. - Monitor for any changes in symptoms or new concerns and report them promptly. - T The patient had an opportunity to ask questions regarding treatment plan. The patient expressed understanding and agreement with the above treatment plan. T Patient was informed and verbally consented to the use of an ambient scribe for clinic note documentation during this visit. Orders: Orders Calcium, 24 Hr Ur 8 Weeks M81.0 - Age-related osteoporosis without current pathological fracture Creatinine, 24 Hr Group 8 Weeks M81.0 - Age-related osteoporosis without current pathological fracture AMB Denosumab Injection Practice Supplied Today M81.0 - Age-related osteoporosis without current pathological fracture Medications: New Prolia (denosumab) 60 mg subcut ONCE 1 mL 0RF NS M81.0 - Age-related osteoporosis without current pathological fracture Coding Level of Care Code Est Pt Level 3 (28854) Diagnoses Osteoporosis M81.0
[2024-06-30 07:52] VITALS: BP 112/82; PULSE 76; O2SAT 99; BMI 31.2
--- OUTSIDE RECORDS SUMMARY | 2024-06-30 08:02 | XMS_ITS | Patient Health Record ---
Author Organization [facility] Address [address] [place] [address] Care Team Providers Care Bindery Manager Name Role Phone BEBE VELASCO M.D Primary Care Provider LIZANDRO Bean Unavailable [phone] Allergies Allergen (clinical drug ingredient) Drug/Non Drug Allergy documented on EMR Reaction Allergy Type Onset Date Status 12 Hour Nasal [place] Unknown Drug Allergy Active risedronate Actonel Unknown [...] Status Risk Notes Problem Postmenopausal atrophic vaginitis (07317857) Postmenopausal atrophic vaginitis (N95.2) Active confirmed Problem Age-related osteoporosis (256682512) Age-related osteoporosis without current pathological fracture (M81.0) Active confirmed Problem Essential hypertension (38575102) Essential (primary) hypertension (I10) Active confirmed Problem Hyperlipidemia (84699388) Hyperlipidemia, unspecified (E78.5) Active confirmed Problem Uncomplicated asthma (disorder) (693806876) Unspecified asthma, uncomplicated (J45.909) Active confirmed Problem Gastro-esophageal reflux disease without esophagitis (937792553) Gastro-esophageal reflux disease without esophagitis (K21.9) Active confirmed Plan Of Treatment No Information Insurance Providers Payer Name Payer Address Payer Phone Subscriber Number Group Number Insured Name Patient Relationship to Insured Coverage Start Date Coverage End Date MEDICARE [address] [facility], [place] [id number] JORIGTO MANCILLA Self - patient is the insured [...]
--- OUTSIDE RECORDS SUMMARY | 2024-06-30 08:02 | XMS_ITS | Data Portability ---
Author Organization [place] - [facility], Allergy Address [address] [place] [address] Care Team Providers Care Policy Specialist Name Role Phone BEBE VELASCO Primary Care [...] Address Organization Details Recorded Time Bilateral tinnitus [id number] 02 Active 2018 Tinnitus, bilateral ; Note: Date Diagnosed : 09/16/2018 9:36 AM (H93.13) Not Available [facility] 4 03:05:03 Sensorine ural hearing loss of bilateral ears 919544749 Active 2018 Sensorine ural hearing loss, bilateral ; Note: Date Diagnosed : 09/16/2018 9:36 AM (H90.3) Not Available [facility] 4 03:05:03 Migraine with aura 2847695 Active 2018 Migraine with aura, not intractab le, without status migrainos us; Note: Date Diagnosed : 09/16/2018 9:50 AM (G43.109) Not Available [facility] 4 03:05:05 Dizziness and giddiness 342743322 Active 2018 Dizziness and giddiness ; Note: Date Diagnosed : 09/16/2018 9:36 AM (R42) Not Available [facility] 4 03:05:03 Gastroeso phageal reflux disease without esophagit is 580722123 Active 2018 Gastro-es ophageal reflux disease without esophagit is; Note: Date Diagnosed : 09/16/2018 9:57 AM (K21.9) Not Available [facility] 4 03:05:03 Headache 44189254 Active 2018 Facial pain NOS; Note: Date Diagnosed : 09/16/2018 9:50 AM (R51) Not Available [facility] 4 03:05:02 Recurrent acute sinusitis 729778215 Active 2024 HARPREET HALEY MD [address] [place] [address], [place], [address] , [place] - [facility] 5 16:29:55 Allergic rhinitis 47067499 Active 2024 HARPREET HALEY MD [address] [place] [address], [place], [address] , [place] [facility] 5 16:30:02 Problem Notes None recorded. Procedures Surgical History Date Name Laterality Status Provider Name and Address Organization Details Recorded Time 03/12/2024 Comp Audio with Tymps - 10986 & 15569 completed ADALI ASKEW MA, CCC-A [address] [address], [place], [address], [facility] - [facility] 03/12/2024 16:00:59 03/12/2024 NasalEndosc opy_DP completed HARPREET HALEY MD [address] [place] [address],[address] [address], [place], [address], [facility] 03/12/2024 16:29:37 Imaging Results Imaging Date Name Status LastModified by OrganFangxinmei ation Details LastModified Time 03/15/2024 audiogram completed BARCODE Information no t available 03/15/2024 13:28:12 Procedure Notes None recorded. Medical Equipment None Reported. Allergies Allergen ID Allergen Name Allergen Category Reaction Reaction Severity Criticality Documentation Date Start Date Code Code System Note Provider Name and Address Organization Details Recorded Time 964898 tacrolimu s medicatio n Not available Not available Not available 03/12/2024 11043 RxNorm Zoraida Potvin null, [place] - [facility] 15:11:51 284530 Nexletol medicatio n Not available Not available Not available 03/12/2024 15360 09 RxNorm Zoraida Potvin null, [place] - [facility] 15:12:16 660100 Miebo medicatio n Not available Not available Not available 03/12/2024 93040 52 RxNorm Zoraida Potvin null, [place] - [facility] 15:12:27 642317 sulindac medicatio n Not available Not available Not available 03/12/2024 96600 RxNorm Zoraida Potvin null, [place] - [facility] [place] 15:12:36 685748 Fosamax medicatio n Not available Not available Not available 03/12/2024 37465 5 RxNorm Zoraida Potvin null, [place] - [facility] 5 15:12:46 645321 latex environme nt,medica tion Not available Not available Not available 03/12/2024 67539 91 RxNorm Zoraida Potvin franko [place] - [facility] 15:13:27 934183 Dexilant medicatio n Not available Not available Not available 03/12/2024 80483 1 RxNorm Zoraida abdul [facility] 15:13:54 432458 doxycycli ne Not available Not available Not available Not available 03/12/2024 3640 RxNorm Zoraida Marsh franko [facility] 15:14:23 Medications Name Sig Start Date Stop [...] Smoking Status Former Smoker HARPREET HALEY MD [address] [place] [address], [place], [address], [facility] - [facility] 03/12/2024 09:06:30 How Much Tobacco Do You [...] Disorder N Anesthesia Complications N Heart Attack ([place]) N Other Skin Condition N Diabetes N [...] SNOMED-CT Code Diagnosis ICD10 Code Diagnosis Note [id number] HARPREET HALEY MD [facility] [address] [address] 03/12/2024 14:19:20 03/12/2024 16:35:50 Sensorineural hearing loss of bilateral ears 478815745 H90.3 Audiologic al evaluation results: Right ear: [...] maintain a hermetic seal}} Recurrent acute sinusitis 399096429 J01.91 Allergic rhinitis 229926 04 J30.9 Health Concerns Section Related Observation LastModified by Organization Detai ls LastModified Time None Recorded Concern Status LastModified by Organization Details LastModified Time None Recorded Advance Directives Directive None Recorded Payers Insurance Date Sequence Insurance Name Policy Number Policy Gill Covered Member ID Gill Member ID Guarantor Name 03/12/2024 1 [employer] (MEDICARE SUPPLEMENT) Adali I Houde [id number] Adali I Houde 03/12/2024 1 [place] [facility] Adali I Houde [id number] Adali I Houde 03/12/2024 1 [employer] Adali I Houde [id number] Adali I Houde 05/26/2024 1 [facility] - MEDICARE PREFERRED (MEDICARE REPLACEMENT HMO) HAM Adali I Houde [id number] Adali I Houde 05/26/[address] [facility] (MEDICARE REPLACEMENT/A DVANTAGE - PPO) [id number] 01 Adali I Houde [id number] Adali I Houde Notes Date Note Type [...] her sinus congestion symptoms HARPREET HALEY MD [address] [place] [address], [place], [address], [facility] - [facility] 03/12/2024 16:35:50 OBGyn Episode No OBEpisode recorded.
--- OUTSIDE RECORDS SUMMARY | 2024-06-30 08:03 | XMS_ITS | Clinical Summary ---
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 Gait is steady. Review [...] hand and has an appointment to see [place] [facility] on July 14. She is welcome [...] using it. C-spine MRI done yesterday at [facility] does not show any significant central or [...] intact. X-rays of the cervical spine from [facility] dated 2024 show good position of her C4-5 and C5-C6-C7 plates but there does not appear to be robust bone growth across the disc spaces. I will discuss with Dr. Rodriguez and likely order a bone growth stimulator. Meantime, she is going to get in contact with [place] [facility]. We talked about acupuncture and [...] 06/15/2024 3:15 PM EDT Office Visit Neurosurgery [facility] [address] [place] [address] Siria Choi PA Cervical spondylosis (Primary Dx) 06/14/2024 6:04 PM EDT - 06/14/2024 11:59 PM EDT Hospital Encounter [facility] MRI [address] [place] [phone] Cervical radiculopathy Discharge Disposition: Home or Self Care 06/09/2024 Telephone Neurosurgery [facility] [address] [phone] Jenise Lewis MA Appointment ([employer] No auth required for C/Spine MRI faxed over to [facility]. They will contact pt w/appt. ) 06/08/2024 Telephone Neurosurgery [address] [phone] Corrine Galvan MA 04/28/2024 11:00 AM EDT Office Visit [address] [phone] Chuck Atkins PA Cervical spondylosis (Primary Dx) 04/21/[address] [phone] Jenise Lewis MA Results 04/19/[address] [phone] Corrine Galvan MA from Last 3 Months [...] Routine 06/14/2024 7:14 PM EDT Cervical radiculopathy [facility] DEXA AXIAL SKELETON Routine 02/02/2018 9:04 AM EST Encounter for screening for osteoporosis [facility] SCREENING DIGITAL Routine 02/02/2018 8:35 AM [...] Signed Date: 06/15/2024 10:50 ET Workstation ID: [id number] Transcribed By: Self Edit Transcribed Date: 06/15/2024 [...] artifact secondary to anterior fusion hardware from E8ikamrub C7. No appreciable marrow infiltrative lesion. Alignment [...] Signed Date: 06/15/2024 10:50 ET Workstation ID: [id number] Transcribed By: Self Edit Transcribed Date: 06/15/2024 08:04 ET us Siria MORAES IMG MRI PROCEDURES Final R esult * [facility] DEXA AXIAL SKELETON (02/02/2018 9:04 AM EST) Anatomical Region Laterality Modality Mammography 02/02/2018 7:11 AM EST Narrative 02/02/2018 9:04 AM EST [facility] Diagnostic Imaging Department [address] [place] [address] Patient: ??ADALI MANCILLA I ?/Age/Sex: 1950 - 67 - F Unit#: ??[id number] ? Location/Status: ??SPDIMAM/REG CLI ? Mnemonic/Ordering Site: ??MAMDEXAAX/SPMAM Ordering Physician: ??KATERINA TOLBERT MD [facility] Dexa Axial Skeleton - 02/02/18 - 48 [...] probability of hip fracture of 11.3%. Code 32109 Dictating Physician: ??GALINA RIVERO MD Electronically Signed by: ??GALINA RIVERO MD Dic Date/Time: ??02/02/18901 Sign date/Time: ??02/02/18903 Procedure Note Galina Rivero MD - 01/29/2022 [facility] Diagnostic Imaging Department [address] [place] [address] Patient: ADALI MANCILLA Hari /Age/Sex: 1950 67 - F Unit#: [id number] Location/Status: [facility] CLI Mnemonic[facility] Ordering Physician: KATERINA TOLBERT MD [facility] Dexa Axial Skeleton - 02/02/18748 HISTORY: [...] density of the femurs bilaterally is 0.707 gm/hf4ehciv is 70% of that of young normals [...] probability of hip fracture of 11.3%. Code 20552 Dictating Physician: GALINA RIVERO MD Electronically Signed by: GALINA RIVERO MD Dic Date/Time: 02/02/18901 Sign date/Time: 02/02/18903 us Katerina Tolbert MD IMG BI PROCEDURES Final Re sult * [facility] SCREENING DIGITAL (02/02/2018 8:35 AM EST) Anatomical Region Laterality Modality Mammography 02/02/2018 7:10 AM EST Narrative 02/02/2018 8:35 AM EST [facility] Diagnostic Imaging Department [address] [place] [address] Patient: ??ADALI MANCILLA I ?/Age/Sex: 1950 67 - Unit#: ??[id number] ? Location/Status: ??SPDIMAM/REG CLI ? Mnemonic/Ordering Site: ??DIGSC/SPMAM Ordering Physician: ??JEANETTE CARRERA MD [facility] Screening Digital - 02/02/18 - 0749 INDICATION: SCREENING COMPARISON: [facility] mammograms dating back to ?? 01/12/2013 FINDINGS: CC and MLO views of the breasts were obtained, using full field digital mammography with 3D tomosynthesis views in the MLO projection. Computer aided detection with the S5 Wireless 7.2-H was employed. Benign bilateral breast biopsies [...] date for the next mammogram. (G0202 / 24297) , ??85777 Dictating Physician: ??TONI MORA MD Electronically Signed by: ??TONI MORA MD Dic Date/Time: ??02/02/18829 Sign date/Time: ??02/02/18834 Procedure Note Toni Mora MD - 01/29/2022 [facility] Diagnostic Imaging Department [address] [place] [address] Patient: ADALI MANCILLA I /Age/Sex: 1950 - 67 - F Unit#: [id number] Location/Status: SPDIMAM/REG CLI Mnemonic/Ordering Site: [facility] Ordering Physician: JEANETTE CARRERA MD [facility] Screening Digital - 02/02/18 - 0749 INDICATION: SCREENING COMPARISON: [facility] mammograms dating back to 01/12/2013 FINDINGS: CC and MLO views of the breasts were obtained, using full field digital mammography with 3D tomosynthesis views in the MLO projection. Computeraided detection with the S5 Wireless 7.2-H was employed. Benign bilateral breast biopsies [...] a target date for the next mammogram. 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
== END 2024-06-30 08:27 | disposition home or self-care (01) ==
LOC: HO.ENCR 07:44
PROVIDERS: PCP Nurse Practitioner Family; Visit Provider Internal Medicine Endocrinology, Diabetes & Metabolism
DX: M81.0 Age-related osteoporosis without current pathological fracture (principal)
CPT/HCPCS: 99213

== ENCOUNTER → 2024-06-30 07:43 | Outpatient (BNVA) | payer OTHER, SELFPAY | PROVIDERS: PCP Nurse Practitioner Family; Visit Provider Internal Medicine Endocrinology, Diabetes & Metabolism | DX: M81.0 Age-related osteoporosis without current pathological fracture (principal) | CPT/HCPCS: 96372; J0897 ==

== ENCOUNTER 2024-07-02 08:59 | Outpatient (AMB) | payer OTHER, SELFPAY ==
--- OUTSIDE RECORDS SUMMARY | 2024-07-02 09:19 | XMS_ITS | Data Portability ---
Author Organization [place] - [facility], Allergy Address [address] [place] [phone] Care Team Providers Care Supervisor [employer] Name Role Phone BEBE VELASCO Primary Care [...] Address Organization Details Recorded Time Bilateral tinnitus 81276410132 02 Active 2018 Tinnitus, bilateral ; Note: Date Diagnosed : 09/16/2018 9:36 AM (H93.13) Not Available [facility] 4 03:05:03 Sensorine ural hearing loss of bilateral ears 990752894 Active 2018 Sensorine ural hearing loss, bilateral ; Note: Date Diagnosed : 09/16/2018 9:36 AM (H90.3) Not Available [facility] 4 03:05:03 Migraine with aura 0409399 Active 2018 Migraine with aura, not intractab le, without status migrainos us; Note: Date Diagnosed : 09/16/2018 9:50 AM (G43.109) Not Available [facility] 4 03:05:05 Dizziness and giddiness 219068632 Active 2018 Dizziness and giddiness ; Note: Date Diagnosed : 09/16/2018 9:36 AM (R42) Not Available [facility] 4 03:05:03 Gastroeso phageal reflux disease without esophagit is 233905318 Active 2018 Gastro-es ophageal reflux disease without esophagit is; Note: Date Diagnosed : 09/16/2018 9:57 AM (K21.9) Not Available [facility] 4 03:05:03 Headache 60805996 Active 2018 Facial pain NOS; Note: Date Diagnosed : 09/16/2018 9:50 AM (R51) Not Available [facility] 4 03:05:02 Recurrent acute sinusitis 265942884 Active 2024 HARPREET HALEY MD [address] [place] [address], [place], [address] , [place] - [facility] 5 16:29:55 Allergic rhinitis 16461559 Active 2024 HARPREET HALEY MD [address] [place] [address], [place], [address] , [place] [facility] 5 16:30:02 Problem Notes None recorded. Procedures Surgical History Date Name Laterality Status Provider Name and Address Organization Details Recorded Time 03/12/2024 Comp Audio with Tymps - 51576 & 65636 completed ADALI ASKEW MA, CCC-A [address] [address], [place], [address], [facility] - [facility] 03/12/2024 16:00:59 03/12/2024 NasalEndosc opy_DP completed HARPREET HALEY MD [address] [place] [address],[address] [address], [place], [address], [facility] 03/12/2024 16:29:37 Imaging Results Imaging Date Name Status LastModified by OrganSingular ation Details LastModified Time 03/15/2024 audiogram completed BARCODE Information no t available 03/15/2024 13:28:12 Procedure Notes None recorded. Medical Equipment None Reported. Allergies Allergen ID Allergen Name Allergen Category Reaction Reaction Severity Criticality Documentation Date Start Date Code Code System Note Provider Name and Address Organization Details Recorded Time 496231 tacrolimu s medicatio n Not available Not available Not available 03/12/2024 42806 RxNorm Zoraida Potvin null, [place] - [facility] 15:11:51 909107 Nexletol medicatio n Not available Not available Not available 03/12/2024 88524 09 RxNorm Zoraida Potvin null, [place] - [facility] 15:12:16 534478 Miebo medicatio n Not available Not available Not available 03/12/2024 55457 52 RxNorm Zoraida Potvin null, [place] - [facility] 15:12:27 393629 sulindac medicatio n Not available Not available Not available 03/12/2024 31482 RxNorm Zoraida Potvin null, [place] - [facility] 15:12:36 918421 Fosamax medicatio n Not available Not available Not available 03/12/2024 22554 5 RxNorm Zoraida Potvin null, [place] - [facility] 5 15:12:46 503980 latex environme nt,medica tion Not available Not available Not available 03/12/2024 35294 91 RxNorm Zoraida Potvin franko [place] - [facility] 15:13:27 117567 Dexilant medicatio n Not available Not available Not available 03/12/2024 62921 1 RxNorm Zoraida abdul [facility] 15:13:54 203343 doxycycli ne Not available Not available Not available Not available 03/12/2024 3640 RxNorm Zoraida Marsh franko [facility] 15:14:23 Medications Name Sig Start Date [...] Smoking Status Former Smoker HARPREET HALEY MD [address] [place] [address], [place], [address], [facility] - [facility] 03/12/2024 09:06:30 How Much Tobacco Do [...] Disorder N Anesthesia Complications N Heart Attack ([place]) N Other Skin Condition N Diabetes N [...] SNOMED-CT Code Diagnosis ICD10 Code Diagnosis Note [id number] HARPREET HALEY MD [facility] [address] [phone] 03/12/2024 14:19:20 03/12/2024 16:35:50 Sensorineural hearing loss of bilateral ears 077123646 H90.3 Audiologic al evaluation results: Right ear: [...] maintain a hermetic seal}} Recurrent acute sinusitis 013602900 J01.91 Allergic rhinitis 335129 04 J30.9 Health Concerns Section Related Observation LastModified by Organization Detai ls LastModified Time None Recorded Concern Status LastModified by Organization Details LastModified Time None Recorded Advance Directives Directive None Recorded Payers Insurance Date Sequence Insurance Name Policy Number Policy Gill Covered Member ID Gill Member ID Guarantor Name 03/12/2024 1 [employer] (MEDICARE SUPPLEMENT) Adali I Houde [id number] Adali I Houde 03/12/2024 1 [place] [facility] Adali I Houde [id number] Adali I Houde 03/12/2024 1 [employer] Adali I Houde [id number] Adali I Houde 05/26/2024 1 [facility] - MEDICARE PREFERRED (MEDICARE REPLACEMENT HMO) HAM Adali I Houde [id number] Adali I Houde 05/26/2024 1 [facility] (MEDICARE REPLACEMENT/A DVANTAGE - PPO) [id number] Adali I Houde [id number] Adali I Houde Notes Date Note Type [...] her sinus congestion symptoms HARPREET HALEY MD [address] [place] [address], [place], [address], [facility] - [facility] 03/12/2024 16:35:50 OBGyn Episode No OBEpisode recorded.
--- NOTE | 2024-07-02 09:59 | A.OFFVIS_ITS ---
Intake Visit Reasons: Cysto Intake Note: Patient presents to office today for cystoscopy Urology Med:None Antibiotic Allergy: Penicillins, Doxycycline, Blood Thinner: Asprin Concrete Boom Pump Operator Required: No Accompanied by: Self / Same As Patient Allergies dexlansoprazole (From DEXILANT) Allergy (Severe, Verified 08/24/24 09:33) dizziness, change in HR risedronate sodium (From ACTONEL) Allergy (Severe, Verified 08/24/24 09:33) chest discomfort Dglnbjx-YQO-XnP Reductase Inhibitor ([id number] REDUCTASE INHIBITOR) Allergy (Severe, Verified 08/24/24 09:33) JOINT PAIN tramadol (TRAMADOL) Allergy (Severe, Verified 08/24/24 09:33) THROAT TIGHTNESS amlodipine (AMLODIPINE) Allergy (Intermediate, Verified 08/24/24 09:33) PALIPITATIONS Atrovent Allergy (Intermediate, Verified 08/24/24 09:33) Cough baclofen (BACLOFEN) Allergy (Intermediate, Verified 08/24/24 09:33) LETHARGY Beta-Blockers (Beta-Adrenergic Bloc Allergy (Intermediate, Verified 08/24/24 09:33) BRADYCARDIA budesonide (From SYMBICORT) Allergy (Intermediate, Verified 08/24/24 09:33) HOARSENESS Chocolate Allergy (Intermediate, Verified 08/24/24 09:33) GERD ezetimibe (From ZETIA) Allergy (Intermediate, Verified 08/24/24 09:33) JOINT PAIN, ELEVATED CPK fluticasone (From ADVAIR DISKUS) Allergy (Intermediate, Verified 08/24/24 09:33) HTN glucosamine Allergy (Intermediate, Verified 08/24/24 09:33) LE edema ibandronate sodium (From BONIVA) Allergy (Intermediate, Verified 08/24/24 09:33) CHEST PAIN latex (LATEX) Allergy (Intermediate, Verified 08/24/24 09:33) RASH-SENSITIVITY lisinopril (LISINOPRIL) Allergy (Intermediate, Verified 08/24/24 09:33) COUGH, really bad cough meloxicam (From MOBIC) Allergy (Intermediate, Verified 08/24/24 09:33) GI UPSET mometasone furoate (From DULERA) Allergy (Intermediate, Verified 08/24/24 09:33) COUGH niacin Allergy (Intermediate, Verified 08/24/24 09:33) Flushing Penicillins (PENICILLINS) Allergy (Intermediate, Verified 08/24/24 09:33) RASH pregabalin (From LYRICA) Allergy (Intermediate, Verified 08/24/24 09:33) GERD flare up raloxifene (From EVISTA) Allergy (Intermediate, Verified 08/24/24 09:33) GERD rofecoxib (From Vioxx) Allergy (Intermediate, Verified 08/24/24 09:33) ankle swelling salmeterol (From ADVAIR DISKUS) Allergy (Intermediate, Verified 08/24/24 09:33) HTN scallops (SCALLOPS) Allergy (Intermediate, Verified 08/24/24 09:33) NAUSEA & VOMITING sertraline (From ZOLOFT) Allergy (Intermediate, Verified 08/24/24 09:33) SKIN CRAWLING spironolactone (SPIRONOLACTONE) Allergy (Intermediate, Verified 08/24/24 09:33) RASH, ?? psoriasis strawberry (STRAWBERRY) Allergy (Intermediate, Verified 08/24/24 09:33) ITCHING tiotropium (From SPIRIVA WITH HANDIHALER) Allergy (Intermediate, Verified 08/24/24 09:33) RAW THROAT, pharyngitis verapamil (VERAPAMIL) Allergy (Intermediate, Verified 08/24/24 09:33) IRREGULAR HEARTBEAT esomeprazole (Nexium) Allergy (Mild, Verified 08/24/24 09:33) did not resolve GERD naproxen (From ALEVE) Allergy (Mild, Verified 08/24/24 09:33) FLUSH omeprazole Allergy (Mild, Verified 08/24/24 09:33) did not resolve GERD tacrolimus Allergy (Mild, Verified 08/24/24 09:33) Rash adhesive (ADHESIVE) Allergy (Unknown, Verified 08/24/24 09:33) RASH doxycycline (DOXYCYCLINE) Allergy (Unknown, Verified 08/24/24 09:33) SEVERE NOYOLA, HEARTBURN, joint pain gabapentin (From NEURONTIN) Allergy (Unknown, Verified 08/24/24 09:33) leg swelling, SOB metoclopramide (From REGLAN) Allergy (Unknown, Verified 08/24/24 09:33) LETHARGY monosodium glutamate (MSG) Allergy (Unknown, Verified 08/24/24 09:33) HEADACHE, increased HR lifitegrast (From Xiidra) Allergy (Verified 08/24/24 09:33) blurred vision, headache, eye swelling metoprolol Adverse Reaction (Severe, Verified 08/24/24 09:33) Severe bradycardia alendronate sodium (From Fosamax) Adverse Reaction (Intermediate, Verified 08/24/24 09:33) Joint Pain amitriptyline Adverse Reaction (Intermediate, Verified 08/24/24 09:33) Agitated cyclosporine (From Cequa) Adverse Reaction (Intermediate, Verified 08/24/24 09:33) Eye Swelling fluticasone furoate (From Trelegy Ellipta) Adverse Reaction (Intermediate, Verified 08/24/24 09:33) asthma exacerbation perfluorohexyloctane (From Miebo) Adverse Reaction (Intermediate, Verified 08/24/24 09:33) Eye Swelling tobramycin (From Tobrex) Adverse Reaction (Intermediate, Verified 08/24/24 09:33) Eye Swelling umeclidinium (From Trelegy Ellipta) Adverse Reaction (Intermediate, Verified 08/24/24 09:33) asthma exacerbation vilanterol (From Trelegy Ellipta) Adverse Reaction (Intermediate, Verified 08/24/24 09:33) asthma exacerbation azelastine Adverse Reaction (Mild, Verified 08/24/24 09:33) Gastrointestinal Upset hi Adverse Reaction (Intermediate, Uncoded 08/24/24 09:33) Itchy Eyes Sulindac Adverse Reaction (Intermediate, Uncoded 08/24/24 09:33) Nausea, pain HPI Comments Details: 07/02/24--Here for surveilance office cystoscopy. h/o low-grade noninvasive bladder cancer. Cystoscopy findings: small irregular area near left trigone, moderate bladder wall thickening, no suspicious bladder lesions visualized. Results - Previous urine FISH testing demonstrating a normal hybridization pattern Plan - Return for follow-up in three months to monitor the area of bladder irregularity - Complete the ultrasound appointment when it is scheduled to assess kidney health 05/17/24--Telehealth - FU -discussed urine testing. Negative urine FISH--A normal hybridization pattern was observed for chromosomes 3, 7, 9, and 17. The UroVysion test was designed for use on voided urine specimens as an aid for the initial diagnosis of bladder carcinoma in patients with hematuria and subsequent monitoring for tumor recurrence in patients previously diagnosed with bladder cancer. 03/05/24--Adali is here for surveillance office cystoscopy. Cipro 500mg x 1 PO pre-procedure. Cystoscopy findings: WNL, no suspicious bladder lesions visualized. Cont surveillance. cysto in 4 months. 12/05/23--Adali is a 73-year-old here for 3 month what small or surveillance office cystoscopy. Cystoscopy findings: No recurrent bladder lesions mild to moderate bladder trabeculations. 09/10/23--Adali is status post cystoscopy TURBT. I have reviewed pathology, low- grade noninvasive bladder cancer. I have discussed treatment management for cystoscopy surveillance. Based on small size and that the tumor is low-grade, bladder installations therapy is not indicated at this time. 07/25/2023--here for cystoscopy. CT urogram--within normal limits. Cystoscopy findings: Mild to moderate bladder wall thickening. 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 Discussed cystoscopy TURBT. Consent obtained. 05/19/23--Adali is a 73-year-old female who is here for evaluation for microscopic hematuria. The patient has a history of nicotine use quit in 1979. The patient has lower urinary tract symptoms of urinary frequency. 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 She states she is no longer routinely following with GROUND SURVEILLANCE SYSTEMS OPERATOR but told by GROUND SURVEILLANCE SYSTEMS OPERATOR about 3 years ago that she had vaginal prolapse. She denies dysuria. Urinalysis trace blood, 0 leukocytes. I have discussed microscopic hematuria may be due to but not limited to kidney stones, BPH, cystitis, urinary tract malignancy. I have discussed work up to include evaluation of the urinary tract which may include imaging, further urine testing, and cystoscopy Plan--CT urogram, urine for cytology, follow-up office cystoscopy [facility] Medical History Esophageal spasm Hx of carcinoma of bladder Bladder carcinoma History of trigger finger Cervical radiculitis Chronic sinusitis GERD (gastroesophageal reflux disease) FRANCESCA (obstructive sleep apnea) CAD (coronary artery disease) History of primary hyperparathyroidism Non-toxic multinodular goiter Osteoporosis Pulmonary nodules H/O gastroesophageal reflux (GERD) HLD (hyperlipidemia) HTN (hypertension) COPD (chronic obstructive pulmonary disease) Asthma History of aneurysm Migraine Depression PTSD (post-traumatic stress disorder) History of panic attacks Anxiety Edema History of deviated nasal septum Medial epicondylitis of left elbow Fusion of spine, cervical region Surgical History History of carpal tunnel release Hx of cystoscopy H/O cervical spine surgery Hx of hand surgery Hx of right inguinal hernia repair History of hernia repair Hx of colonoscopy History of esophagogastroduodenoscopy (EGD) S/P repair of paraesophageal hernia H/O decompression of ulnar nerve Status post ablation of incompetent vein using laser History of cardiac catheterization History of eyelid surgery History of appendectomy History of parathyroidectomy History of cholecystectomy Hx of cataract surgery Hx of shoulder surgery S/P cubital tunnel release S/P arthroscopic surgery of right knee History of lumpectomy of both breasts History of hysterectomy Hx of adenoidectomy Hx of tonsillectomy Hx of eye surgery Family History Father Liver cancer Psoriasis Cancer Mental health disorder Mother Cervical cancer Ovarian cancer Heart attack Substance use disorder Social History Household Members: Children and None Housing: House Alcohol intake: current Alcohol intake frequency: does not drink Patient Tobacco Use Status: Former Tobacco user Tobacco use type: Cigarette e-Cigarette/Vaping Use: Never Used Second Hand Smoke Exposure: No service: No Current occupational status: employed 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, 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 Cognitive needs: No Hearing needs: No Vision needs: Yes Review of Systems Const All systems reviewed & are unremarkable except as noted in HPI and below Reports no additional complaints Eyes Reports no additional complaints ENT Reports no additional complaints Card Reports no additional complaints Resp Reports no additional complaints GI Reports no additional complaints Reports as per HPI Musc Reports no additional complaints Skin/Breast Reports system reviewed and no additional complaints, except as documented Neuro Reports no additional complaints Psych Reports no additional complaints Endo Reports no additional complaints Jesse/Lymph Reports no additional complaints Aller/Immun Reports no additional complaints Office Procedures Cystoscopy Consent Discussed risk and benefit or proposed procedure with the patient. Information consent for procedure given to the patient. Discussed technical aspects, risks, benefits and alternatives in full. Addressed all of the patient's questions and concerns regarding the procedure. The patient demonstrated knowledge and understanding. They wish to proceed with this procedure. Preparation The patient was prepped in the usual manner. A show worker was present and in the room. Genitalia was prepped with betadine solution in a sterile manner. Lidocaine Jelly 2% was placed into the urethra and 16Fr flexible Olympus cystoscope was inserted into the meatus after adequate lubrication. Time out per protocol performed. Speculum used as indicated for adequate visualization of urethra, the flexible cystoscope is passed transurethrally: The bladder was inspected in its entirety with utilization retroflexion displaying: Tumor(s): no suspicious bladder lesions visualized Trabeculation: Moderate with cellule changes Mucosal Erthema: small irregular area near left trigone Orifices: normal shape and position Urethra: normal Cystoscopy findings: small irregular area near left trigone, moderate bladder wall thickening, no suspicious bladder lesions visualized [id number] DISPOSABLE SCOPE URO-G FLEXIBLE SCOPE Procedure code (CPT) selection complete Office Meds lidocaine HCl 2 % mucosal jelly in applicator Performing Provider: Chloe Dodge MD Performing Location: [facility] Administered by: Sander Victoria LPN on 07/02/24 10:20 Dose Route Admin Location Dispensed Lot Number Expiration Date [facility] [place] Commercial Makeup Artist 10 mL intra-urethral 20 mL phenazopyridine 200 mg tablet Performing Provider: Chloe Dodge MD Performing Location: [facility] Administered by: Sander Victoria LPN on 07/02/24 10:20 Dose Route Admin Location Dispensed Lot Number Expiration Date [place] [employer] Makeup Artist 200 mg PO 1 tab Results AMB Urinalysis, Automated UA Leukoctes 0 Jason/uL Last Edit by Luisa Johnson on 07/02/24 15:55 UA Nitrite Negative Last Edit by Luisa Johnson on 07/02/24 15:55 UA Urobilinogen 3.5 mg/dL Last Edit by Luisa Johnson on 07/02/24 15:55 UA Protein 0 mg/dL Last Edit by Luisa Johnson on 07/02/24 15:55 UA pH 6.0 Last Edit by Luisa Johnson on 07/02/24 15:55 UA Blood 10 Delfino/uL Last Edit by Luisa Johnson on 07/02/24 15:55 UA Specific [place] 1.010 Last Edit by Luisa Johnson on 07/02/24 15:55 UA Ketone Negative Last Edit by Luisa Johnson on 07/02/24 15:55 UA Bilirubin 0 mg/dL Last Edit by Luisa Johnson on 07/02/24 15:55 UA Glucose 0 mg/dL Last Edit by Luisa Johnson on 07/02/24 15:55 Results Reviewed Results Reviewed: Laboratory Last Values Urine pH (Auto) 6.0 07/02/24 14:17 Specific [place] (Auto) 1.010 07/02/24 14:17 Urine Protein (Auto) 0 mg/dL 07/02/24 14:17 Glucose (UA)(Auto) 0 mg/dL 07/02/24 14:17 Urine Ketones (Auto) Negative 07/02/24 14:17 Urine Blood (Auto) 10 Delfino/uL 07/02/24 14:17 Urine Nitrite (Auto) Negative 07/02/24 14:17 Urine Bilirubin (Auto) 0 mg/dL 07/02/24 14:17 Urine Urobilinogen (Auto) 3.5 mg/dL 07/02/24 14:17 Leukocyte Esterase (Auto) 0 Jason/uL 07/02/24 14:17 DERREK: 04/30/24 STATUS: COMP REQ : [id number] RECD: 04/30/24-[address]: Chloe Dodge MD COMP: 05/07/24-1038 ENTERED: 04/30/24-[address]: Sachin Linares [facility] ORDERED: FISH Bladder Ca Test Result Flag Reference FISH Bladder Ca see note Order ID: [id number] Specimen Type: Urine Clinical Indication: NOT GIVEN RESULT: NEGATIVE RESULT FOR THE UROVYSION FISH ASSAY INTERPRETATION: A normal hybridization pattern was observed for chromosomes 3, 7, 9, and 17. This result is not indicative of bladder cancer according to the UroVysion Directional Insert ([employer]). Although the UroVysion test was designed to detect genetic changes associated with most bladder cancers, not all genetic changes can be detected by this test. The UroVysion test was designed for use on voided urine specimens as an aid for the initial diagnosis of bladder carcinoma in patients with hematuria and subsequent monitoring for tumor recurrence in patients previously diagnosed with bladder cancer. Collected: 08/19/23 Location: [facility] Received: 08/19/23 Diagnosis A. Bladder, left lateral wall, Transurethral resection: - Low-grade papillary urothelial carcinoma, noninvasive. - No muscularis propria identified. B. Bladder, random posterolateral wall, biopsy: Mild chronic cystitis; muscularis propria present. C. Bladder, random right lateral wall, biopsy: Mild chronic cystitis; muscularis propria present. Bladder, transurethral resection/biopsy (A) Procedure: Transurethral resection Tumor site: Left lateral wall Histologic type: Papillary carcinoma Histologic grade: Low-grade Muscularis propria: Not present Extent of invasion: Noninvasive Lymphovascular invasion: Not identified Date of Service: 07/15/23 EXAMINATION: CT ABDOMEN AND PELVIS WITHOUT AND WITH CONTRAST CLINICAL INFORMATION: Hematuria. COMPARISON: None available. DLP: 720 mGy-cm FINDINGS: LUNG BASES: The visualized lung bases are unremarkable. LIVER, GALLBLADDER, AND BILIARY TREE: The liver is normal in size, shape, and attenuation. No focal hepatic lesion or biliary ductal dilatation is present. Status post cholecystectomy. PANCREAS: Unremarkable. SPLEEN: Unremarkable. ADRENAL GLANDS: Unremarkable. KIDNEYS AND URETERS: The kidneys are normal in size, shape, and attenuation. 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 No hydronephrosis, hydroureter, or calculi seen. No perinephric stranding. No renal parenchymal masses are seen. The uroepithelium appears normal without evidence of masses. BLADDER: Unremarkable. GASTROINTESTINAL TRACT: There is extensive left-sided diverticular disease without diverticulitis. The small and large bowel are otherwise unremarkable. No evidence of appendicitis. ABDOMINAL WALL: No significant hernia is appreciated. LYMPH NODES: Normal. VASCULAR: Calcific atherosclerotic changes are present in the aorta and iliofemoral vessels. There is no evidence of an abdominal aortic aneurysm. PELVIC VISCERA: The uterus is not seen. An abnormal adnexal mass is not detected. No free intraperitoneal fluid is present. OSSEUS STRUCTURES: Degenerative changes are present in the lower thoracic spine as well as at L5-S1. No bony destructive lesions. IMPRESSION: 1. A cause for the patient's hematuria has not been found. Assessment & Plan Assessment & Plan (1) History of nicotine use: Code(s): Z87.891 - Personal history of nicotine dependence Category: Medical (2) Urinary frequency: Code(s): R35.0 - Frequency of micturition Category: Medical (3) Bladder cancer: Code(s): C67.9 - Malignant neoplasm of bladder, unspecified Category: Medical Plan Renal US surveillance office cysto, urine for cytology Orders: Orders Urine Cytology 07/02/24 C67.9 - Malignant neoplasm of bladder, unspecified AMB Urinalysis Automated 07/02/24 C67.9 - Malignant neoplasm of bladder, unspecified, N32.89 - Other specified disorders of bladder AMB Cystoscopy 07/02/24 C67.9 - Malignant neoplasm of bladder, unspecified Patient Instructions: The patient had an opportunity to ask questions regarding treatment plan. The patient expressed understanding and agreement with the above treatment plan. The patient is aware they should contact our office by phone for worsening of t heir current condition or the appearance of new symptoms. Compliance is encouraged with any medications and followup testing that is ordered. It is a privilege to be allowed the opportunity to participate in the urologic care of your patient. If you have any questions or concerns regarding treatment for the above conditions please do not hesitate to contact me. The office telephone contact is [phone]. This note is constructed in part using voice recognition software. While every effort has been made to ensure accuracy sort line errors may have been included. Yours sincerely, Chloe Dodge MD Coding Level of Care Code Procedure Only Diagnoses History of nicotine use Z87.891 Urinary frequency R35.0 Bladder cancer C67.9 CPT Codes Cystoscopy - CPT: 19375-[id number] ([id number])
== END 2024-07-02 10:58 | disposition home or self-care (01) ==
LOC: HO.HUSH 09:01
PROVIDERS: PCP Nurse Practitioner Family; Visit Provider Urology
DX: C67.9 Malignant neoplasm of bladder, unspecified (principal); N32.89 Other specified disorders of bladder
CPT/HCPCS: 52000

== ENCOUNTER 2024-07-02 08:59 | Outpatient (REF) | payer OTHER, SELFPAY ==
[2024-07-02 16:35] LABS: Urine Cytology See Pathology rpt
== END 2024-07-02 09:00 | disposition home or self-care (01) ==
LOC: HO.LAB 08:59
PROVIDERS: PCP Nurse Practitioner Family; Visit Provider Urology
DX: C67.9 Malignant neoplasm of bladder, unspecified (principal)
CPT/HCPCS: 88112

== ENCOUNTER 2024-07-12 06:13 | Outpatient (REF) | payer MEDICARE, SELFPAY ==
--- OUTSIDE RECORDS SUMMARY | 2024-07-12 06:15 | XMS_ITS | Data Portability ---
Author Organization [place] - [facility], Allergy Address [address] [place] [address] Care Team Providers Care Rate Supervisor Name Role Phone BEBE VELASCO Primary [...] Address Organization Details Recorded Time Bilateral tinnitus 23220046312 02 Active 2018 Tinnitus, bilateral ; Note: Date Diagnosed : 09/16/2018 9:36 AM (H93.13) Not Available Formerly [facility], 1928–1983 4 03:05:03 Sensorine ural hearing loss of bilateral ears 048366767 Active 2018 Sensorine ural hearing loss, bilateral ; Note: Date Diagnosed : 09/16/2018 9:36 AM (H90.3) Not Available Formerly [facility], 1928–1983 4 03:05:03 Migraine with aura 0141709 Active 2018 Migraine with aura, not intractab le, without status migrainos us; Note: Date Diagnosed : 09/16/2018 9:50 AM (G43.109) Not Available [facility], 1928–1983 4 03:05:05 Dizziness and giddiness 339786870 Active 2018 Dizziness and giddiness ; Note: Date Diagnosed : 09/16/2018 9:36 AM (R42) Not Available [facility], [facility]–1983 4 03:05:03 Gastroeso phageal reflux disease without esophagit is 428278018 Active 2018 Gastro-es ophageal reflux disease without esophagit is; Note: Date Diagnosed : 09/16/2018 9:57 AM (K21.9) Not Available [facility], [facility]–1983 4 03:05:03 Headache 43111593 Active 2018 Facial pain NOS; Note: Date Diagnosed : 09/16/2018 9:50 AM (R51) Not Available [facility], [facility] 4 03:05:02 Recurrent acute sinusitis 113963139 Active 2024 HARPREET HALEY MD [address] [place] [address], [place], [address] , [place] - [facility] 5 16:29:55 Allergic rhinitis 05959303 Active 2024 HARPREET HALEY MD [address] [place] [address], [place], [address] , [place] [facility] 5 16:30:02 Problem Notes None recorded. Procedures Surgical History Date Name Laterality Status Provider Name and Address Organization Details Recorded Time 03/12/2024 Comp Audio with Tymps - 66137 & 60825 completed ADALI ASKEW MA, CCC-A [address] [address], [place], [address], [facility] 03/12/2024 16:00:59 03/12/2024 NasalEndosc opy_DP completed HARPREET HALEY MD [address] [place] [address], [place], [address], [facility] 03/12/2024 16:29:37 Imaging Results None recorded. Procedure Notes None recorded. Medical Equipment None Reported. Allergies Allergen ID Allergen Name Allergen Category Reaction Reaction Severity Criticality Documentation Date Start Date Code Code System Note Provider Name and Address Organization Details Recorded Time 197156 tacrolimu s medicatio n Not available Not available Not available 03/12/2024 95566 RxNorm Zoraida Potvin null, [place] - [facility] 15:11:51 319315 Nexletol medicatio n Not available Not available Not available 03/12/2024 05309 09 RxNorm Zoraida Potvin null, [place] - [facility] 15:12:16 844930 Miebo medicatio n Not available Not available Not available 03/12/2024 69346 52 RxNorm Zoraida Potvin null, [place] - [facility] 15:12:27 320920 sulindac medicatio n Not available Not available Not available 03/12/2024 77959 RxNorm Zoraida Potvin null, [place] - [facility] 15:12:36 034460 Fosamax medicatio n Not available Not available Not available 03/12/2024 80098 5 RxNorm Zoraida Potvin null, [place] - [facility] 15:12:46 936818 latex environme nt,medica tion Not available Not available Not available 03/12/2024 03958 91 RxNorm Zoraida Potvin null, [place] - [facility] 15:13:27 408804 Dexilant medicatio n Not available Not available Not available 03/12/2024 58415 1 RxNorm Zoraida Marsh [facility]dul - [facility] 5 15:13:54 249197 doxycycli ne Not available Not available Not available Not available 03/12/2024 3640 RxNorm Zoraida Marsh franko [place] - [facility] 5 15:14:23 Medications Name Sig Start Date [...] Smoking Status Former Smoker HARPREET HALEY MD [address] [place] [address], [place], [address], [facility] - [facility] 03/12/2024 09:06:30 How Much Tobacco Do You [...] SNOMED-CT Code Diagnosis ICD10 Code Diagnosis Note [id number] HARPREET HALEY MD [facility] [place] [address] [place] [address] 03/12/2024 14:19:20 03/12/2024 16:35:50 Sensorineural hearing loss of bilateral ears [id number] H90.3 Audiologic al evaluation results: Right ear: Normal Nor mal through 2 kHz Mild M oderate Mo derately-s evere Mercedes re Profoun d Normal/ borderline normal hearing thru 1500Hz, hearing he aring. slo ping to a mild slopi ng to a moderate s loping to moderately severe slo ping to severe slo ping to profound f lat high frequency low frequency mid frequency cookie bite toribio curve slop ing to a mild to severe SNHL with excellent word recognitio n. Left ear: Normal Nor mal through 2 kHz Mild M oderate Mo derately-s evere Mercedes re Profoun d Normal hearing thru 3000Hz dropping to a mild hearing he aring. slo ping to a mild slopi ng to a moderate s loping to moderately severe slo ping to severe slo ping to profound f lat high frequency low frequency mid frequency cookie bite toribio curve to severe SNHL with excellent word recognitio n. Tympanomet ry: Right Ear:Type A Left Ear:Type A Recurrent acute sinusitis [id number] J01.91 Allergic rhinitis 261328 04 J30.9 Health Concerns Section Related Observation LastModified by Organization Detai ls LastModified Time None Recorded Concern Status LastModified by Organization Details LastModified Time None Recorded Advance Directives Directive None Recorded Payers Insurance Date Sequence Insurance Name Policy Number Policy Gill Covered Member ID Gill Member ID Guarantor Name 03/12/2024 1 [employer] (MEDICARE SUPPLEMENT) Adali Holman [id number] Adali Holman 03/12/2024 1 MEDICA[place]: [facility] Adali Kellyude [id number] Adali Kellyude 03/12/2024 1 [employer] Adali Holman [id number] Adali Holman 05/26/2024 1 [facility] - MEDICARE PREFERRED (MEDICARE REPLACEMENT HMO) [facility] Adali Kellyude [id number] Adali Holman 05/26/2024 1 [facility] (MEDICARE REPLACEMENT/A DVANTAGE - PPO) [id number] Adali Holman [id number] Adali Holman Notes Date Note Type Note Provider Name and Address Organization Details Recorded Time 03/12/2024 text/html tinnitustried hearing aid with poor tolerance recent sinus/ear infection - rx zpak completed sinus infections per yearRAST +basil, cat PV 09/16/2018 Schreibstein, dizziness, tinnitus, sinus migraines and epistaxis - avoid migraine triggers allergy skin testing in 2014. She attempted SCIT with Dr. Lind in 2015 but had full body rashes.2017 septoplasty and [...] her sinus congestion symptoms HARPREET HALEY MD [address] [place] [address], [place], [address], [facility] - [facility] 03/12/2024 16:35:50 OBGyn Episode No OBEpisode recorded.
[2024-07-12 10:05] LABS: MANUAL DIFF FLAG NO
[2024-07-12 10:18] LABS: Basophils Absolute Auto 0.1 X10*3/uL (0.0-0.2); Basophils Percent Auto 1.6 % (0-2); Eosinophils Absolute Auto 0.2 X10*3/uL (0.0-0.4); Eosinophils Percent Auto 2.8 % (0-4); Hemoglobin 13.2 g/dl (12.0-16.0); Imm Gran Abs Auto 0.01 X10*3/uL (0.00-0.03); Imm Gran Pct Auto 0.2 % (0.0-0.4); Lymphocytes Absolute Auto 1.8 X10*3/uL (1.2-4.9); Lymphocytes Percent Auto 29.2 % (20-40); Mean Corpuscular HGB Conc 33.8 g/dl (31.0-35.0); Mean Corpuscular Hemoglobin 30.1 pg (27.0-33.0); Mean Platelet Volume 10.7 fL (9.4-12.3); Monocytes Absolute Auto 0.4 X10*3/uL (0.1-1.2); Monocytes Percent Auto 6.2 % (2-11); Neutrophils Absolute Auto 3.7 x10*3/uL (2.0-8.3); Platelet Count 294 X10*3/uL (160-400); Red Blood Count 4.38 X10*6/uL (4.20-5.50); Red Cell Distribution Width 12.5 % (11.0-16.0); White Blood Count 6.1 X10*3/uL (4.8-10.8)
[2024-07-12 10:31] LABS: Appearance Urine Clear; Color Urine Yellow; Glucose Urine UA Negative (Negative); Leukocyte Esterase Urine Negative (Negative); Nitrite Urine Negative (Negative); Urine Blood Negative (Negative); Urine Ketones Negative (Negative); Urine Protein Negative (Neg-Trace)
[2024-07-12 10:51] LABS: Alanine Aminotransferase 8 U/L (0-31); Albumin Level 3.9 g/dL (3.5-5.0); Alkaline Phosphatase 75 U/L (39-117); Anion Gap 11 (12-20); Aspartate Amino Transferase 23 U/L (5-31); Bilirubin Total 0.8 mg/dL (0.0-1.0); Blood Urea Nitrogen 13 mg/dL (9-16); Calcium 9.3 mg/dL (8.4-10.2); Carbon Dioxide 30 mmol/L (22-29); Chloride 106 mmol/L (96-108); Cholesterol 136 mg/dL (<200); Estimated Glomerular Filt Rate 53; Glucose Fasting 89 mg/dL (60-99); HDL Cholesterol 42 mg/dL (>40); LDL Cholesterol Calculated 74 mg/dL (<100); Potassium 4.5 mmol/L (3.3-5.1); Sodium 142 mmol/L (135-145); TSH reflex Free T4 1.82 uIU/mL (0.32-4.0); Total Protein 6.6 g/dL (6.5-8.0); Triglycerides 104 mg/dL (<150); Vitamin D 25-OH Total 90.1 ng/mL (>30)
== END 2024-07-12 06:14 | disposition home or self-care (01) ==
LOC: HO.HMGCLDS 06:13
PROVIDERS: PCP Nurse Practitioner Family; Visit Provider Nurse Practitioner Family
DX: E78.5 Hyperlipidemia, unspecified (principal)
CPT/HCPCS: 36415; 80053; 80061; 81003; 82306; 84443; 85025

== ENCOUNTER → 2024-07-15 08:59 | Outpatient (REF) | payer MEDICARE, SELFPAY ==
--- NOTE | ~2024-07-15 | NM_ITS ---
Lexiscan Myocardial perfusion study Indication: Coronary artery disease Technique: The patient was brought in for a Lexiscan perfusion study on 07/15/2024 and was injected 0.4 mg of Lexiscan intravenously. Within a minute of this injection 25 mCi of sestamibi was given intravenously. Images were obtained using the SPECT gamma camera interlaced with the gating device. Images were obtained in supine position. Resting perfusion study was performed on 07/16/2024. Patient was administered 25 mCi of sestamibi intravenously at rest. Images were then obtained in supine position. Total DLP 80s mGy-cm. Images were processed with the software and compared side to side in short axis, horizontal long axis and vertical long axis views. Findings: Raw aquisition reviewed. The stress perfusion study showed no significant perfusion abnormality. Both uncorrected as well as CT attenuation corrected images were reviewed. The gated study shows normal LV systolic function with calculated LVEF of 57%. LV cavity is normal in size. The gated study shows normal wall thickening and contraction of segments. Resting study shows no significant perfusion abnormality. Gating at rest reveals normal wall motion with ejection fraction at > 70%. The findings are consistent with no clear reversible or fixed perfusion abnormality. NM/NM juan jose perf SPECT rest & str Impression: 1. Myocardial perfusion imaging study shows likely normal myocardial perfusion. 2. Gated LVEF is 57% during stress and > 70% during rest. 3. Transient ischemic dilatation not present. EKG component of the test reported separately. Electronically signed by: Jason Guido MD 07/18/2024 01:25 PM EDT
--- NOTE | 2024-07-15 09:01 | CA_ITS ---
Acquisition Time: 2024-07-15 09:11:55 Total Exercise Time: 00:02:00 Test Indications: Dyspnea,Palpitations PVC'S Medications: SEE H&P Protocol: LEXISCAN Max HR: 125 BPM 86% of Pred: 145 BPM Max BP: 168/82 mmHG Max Work Load: 1.0 METS Pharmacologcial stress test with Lexiscan while pt swings her legs in chair, with reports of headache, SOB and dizziness, with isolated PACs and PVCs, with normotensive response to injection. Nondiagnostic EKG for ischemia. In recovery, pt treated with IVP Aminophylline 75 mg to reverse Lexiscan after which pt feeling back to baseline. Nuclear images pending. Test reviewed with Dr. Guido. Referred By: Maikel Yadav Electronically Signed By: Ritchie Collado
--- OUTSIDE RECORDS SUMMARY | 2024-07-15 09:38 | XMS_ITS | Data Portability ---
Author Organization [place] - [facility], Allergy Address [address] [place] [address] Care Team Providers Care Flowers Salesperson Name Role Phone BEBE VELASCO Primary Care Provider [phone] Assessment Encounter Date Assessment Date Assessment LastModified [...] Address Organization Details Recorded Time Bilateral tinnitus 68827423128 02 Active 2018 Tinnitus, bilateral ; Note: Date Diagnosed : 09/16/2018 9:36 AM (H93.13) Not Available [facility] 4 03:05:03 Sensorine ural hearing loss of bilateral ears 576159453 Active 2018 Sensorine ural hearing loss, bilateral ; Note: Date Diagnosed : 09/16/2018 9:36 AM (H90.3) Not Available [facility] 4 03:05:03 Migraine with aura 7798439 Active 2018 Migraine with aura, not intractab le, without status migrainos us; Note: Date Diagnosed : 09/16/2018 9:50 AM (G43.109) Not Available [facility] 4 03:05:05 Dizziness and giddiness 155421860 Active 2018 Dizziness and giddiness ; Note: Date Diagnosed : 09/16/2018 9:36 AM (R42) Not Available [facility] 4 03:05:03 Gastroeso phageal reflux disease without esophagit is 729598283 Active 2018 Gastro-es ophageal reflux disease without esophagit is; Note: Date Diagnosed : 09/16/2018 9:57 AM (K21.9) Not Available [facility] 4 03:05:03 Headache 33643086 Active 2018 Facial pain NOS; Note: Date Diagnosed : 09/16/2018 9:50 AM (R51) Not Available [facility] 4 03:05:02 Recurrent acute sinusitis 430858076 Active 2024 HARPREET HALEY MD [address] [place] [address], [place], [address] , [place] - [facility] 5 16:29:55 Allergic rhinitis 98376844 Active 2024 HARPREET HALEY MD [address] [place] [address], [place], [address] , [place] [facility] 5 16:30:02 Problem Notes None recorded. Procedures Surgical History Date Name Laterality Status Provider Name and Address Organization Details Recorded Time 03/12/2024 Comp Audio with Tymps - 09304 & 20052 completed ADALI ASKEW MA, CCC-A [address] [address], [place], [address], [facility] 03/12/2024 16:00:59 03/12/2024 NasalEndosc opy_DP completed HARPREET HALEY MD [address] [place] [address], [place], [address], [facility] 03/12/2024 16:29:37 Imaging Results None recorded. Procedure Notes None recorded. Medical Equipment None Reported. Allergies Allergen ID Allergen Name Allergen Category Reaction Reaction Severity Criticality Documentation Date Start Date Code Code System Note Provider Name and Address Organization Details Recorded Time 263019 tacrolimu s medicatio n Not available Not available Not available 03/12/2024 29670 RxNorm Zoraida Potvin null, [place] - [facility] 15:11:51 111913 Nexletol medicatio n Not available Not available Not available 03/12/2024 83158 09 RxNorm Zoraida Potvin null, [place] - [facility] 15:12:16 809217 Miebo medicatio n Not available Not available Not available 03/12/2024 98221 52 RxNorm Zoraida Potvin null, [place] - [facility] 15:12:27 348382 sulindac medicatio n Not available Not available Not available 03/12/2024 31435 RxNorm Zoraida Potvin null, [place] - [facility] 15:12:36 805589 Fosamax medicatio n Not available Not available Not available 03/12/2024 27321 5 RxNorm Zoraida Potvin null, [place] - [facility] 15:12:46 128285 latex environme nt,medica tion Not available Not available Not available 03/12/2024 61918 91 RxNorm Zoraida Potvin null, [place] - [facility] 15:13:27 268596 Dexilant medicatio n Not available Not available Not available 03/12/2024 95618 1 RxNorm Zoraida Marsh [facility] abdul - [facility] 5 15:13:54 899017 doxycycli ne Not available Not available Not available Not available 03/12/2024 3640 RxNorm Zoraida Marsh franko [place] - [facility] 5 15:14:23 Medications Name Sig Start [...] Smoking Status Former Smoker HARPREET HALEY MD [address] [place] [address], [place], [address], [facility] - [facility] 03/12/2024 09:06:30 How Much Tobacco Do [...] SNOMED-CT Code Diagnosis ICD10 Code Diagnosis Note [id number] HARPREET HALEY MD [facility] [address] [place] [address] 03/12/2024 14:19:20 03/12/2024 16:35:50 Sensorineural hearing loss of bilateral ears 293632746 H90.3 Audiologic al evaluation results: Right ear: [...] A Left Ear:Type A Recurrent acute sinusitis 723080729 J01.91 Allergic rhinitis 915549 04 J30.9 Health Concerns Section Related Observation LastModified by Organization Detai ls LastModified Time None Recorded Concern Status LastModified by Organization Details LastModified Time None Recorded Advance Directives Directive None Recorded Payers Insurance Date Sequence Insurance Name Policy Number Policy Gill Covered Member ID Gill Member ID Guarantor Name 03/12/2024 1 [employer] (MEDICARE SUPPLEMENT) Adali Holman [id number] Adali Holman 03/12/2024 1 MEDICAID-[place]: [facility] Adali Kellyude [id number] Adali Kellyude 03/12/2024 1 [employer] Adali Holman [id number] Adali Holman 05/26/2024 1 [facility] - MEDICARE PREFERRED (MEDICARE REPLACEMENT HMO) [facility] Adali Kellyude [id number] Adali Holman 05/26/2024 1 [facility] (MEDICARE REPLACEMENT/A DVANTAGE - PPO) [id number] Adali Holman [id number] Adali Holman Notes Date Note Type Note [...] her sinus congestion symptoms HARPREET HALEY MD [address] [place] [address], [place], [address], [facility] - [facility] 03/12/2024 16:35:50 OBGyn Episode No OBEpisode recorded.
== END ==
LOC: HO.CARD 08:59
PROVIDERS: PCP Nurse Practitioner Family; Visit Provider Internal Medicine Cardiovascular Disease
DX: R00.2 Palpitations (principal)
CPT/HCPCS: 78452; 93017; A9500; J0280; J2785

== ENCOUNTER → 2024-07-15 09:01 | Outpatient (BNV) | payer MEDICARE, SELFPAY | PROVIDERS: PCP Nurse Practitioner Family | DX: R06.02 Shortness of breath (principal); I49.1 Atrial premature depolarization; I49.3 Ventricular premature depolarization | CPT/HCPCS: 78452; 93016; 93018 ==

== ENCOUNTER 2024-07-21 09:08 | Outpatient (REF) | payer MEDICARE, SELFPAY ==
--- NOTE | 2024-07-21 09:11 | EMG_ITS ---
Chief complaint: patient continues to have numbness and weakness on right 5th digit. Last EMG done by Dr. Frost 07/26/2023. Reported right ulnar neuropathy at the wrist and Carpal Tunnel Syndrome. She underwent carpal tunnel release 12/25/2023. She also has history of cervical surgery 2022. She also mentions complicated/infiltrated IV line on right wrist during 1 of her past procedures, which occurred prior to onset of symptoms. Physical exam today does not show any atrophy. Her right 5th digit tends to flex in. Reason for referral: Evaluate for ulnar neuropathy Referred by: Dr. Cagle Procedure done: right upper extremity NCS /EMG Precautions and/or limitations: Past cervical spine surgery - for this reason paraspinal EMG examination deferred, not reliable to show accurate diagnostic evidence evidence The limb temperature was monitored continuously and remained between 32-36 degrees C during the performance of the NCS. Ulnar motor NCS was performed with moderate elbow flexion between 70-90 degrees, with across-elbow distance of 10 cm. Nerve Conduction Studies Anti Sensory Summary Table ?Stim Site NR Onset (ms) Norm Onset (ms) Peak (ms) Norm Peak (ms) O-P Amp (?V) Norm O-P Amp Site1 Site2 Delta-0 (ms) Dist (cm) Irvin (m/s) Norm Irvin (m/s) Right DorsCutan Anti Sensory (Dorsum 5th MC) Wrist ? 2.4 3.5 11.8 Wrist Dorsum 5th MC 2.4 0.0 Right Median Anti Sensory (2nd Digit) Wrist ? 2.8 3.7 <3.6 18.6 >10 Wrist 2nd Digit 2.8 14.0 50 Right Ulnar Anti Sensory (5th Digit) Wrist ? 2.6 3.4 <3.7 10.6 >15.0 Wrist 5th Digit 2.6 14.0 54 Motor Summary Table ?Stim Site NR Onset (ms) Norm Onset (ms) O-P Amp (mV) Norm O-P Amp iAmp (mV) Amp (1st) (%) Site1 Site2 Delta-0 (ms) Dist (cm) Irvin (m/s) Norm Irvin (m/s) Right Median Motor (Abd Poll Brev) Wrist ? 3.4 <3.9 9.1 >4.5 10.9 100.0 Elbow Wrist 3.3 19.0 58 >45 Elbow ? 6.7 9.1 10.8 100.0 Right Ulnar Motor (Abd Dig Minimi) Wrist ? 3.0 <3.0 5.5 >5 7.5 100.0 B Elbow Wrist 2.9 17.0 59 >45 B Elbow ? 5.9 4.9 6.7 89.1 A Elbow B Elbow 1.4 10.0 71 >45 A Elbow ? 7.3 4.7 6.0 85.5 Right Ulnar Motor (FDI) Wrist ? 3.8 <3.0 9.7 >5 11.3 100.0 B Elbow Wrist 3.0 17.0 57 >45 B Elbow ? 6.8 9.8 11.7 101.0 A Elbow B Elbow 1.4 10.0 71 >45 A Elbow ? 8.2 9.6 11.4 99.0 EMG ?Side Muscle Nerve Root Ins Act Fibs Psw Amp Dur Poly Recrt Int Pat Comment Right 1stDorInt Ulnar C8-T1 Incr 1+ 1+ Nml Nml 0 Nml Complete Right Biceps Musculocut C5-6 Nml Nml Nml Nml Nml 0 Nml Complete Right Triceps Radial C6-7-8 Nml Nml Nml Nml Nml 0 Nml Complete Right Deltoid Axillary C5-6 Nml Nml Nml Nml Nml 0 Nml Complete Right FlexCarpiUln Ulnar C8,T1 Nml Nml Nml Nml Nml 0 Nml Complete Right ExtIndicis Radial (Post Int) C7-8 Nml Nml Nml Nml Nml 0 Nml Complete Right ABD Dig Min Ulnar C8-T1 Incr 1+ 1+ Nml Nml 0 Nml Complete FINDINGS: Right ulnar sensory nerve showed normal peak latencies but small amplitude. Right ulnar motor nerve, recording at FDI, showed prolonged distal latencies but normal amplitudes and conduction velocities. No conduction block seen across elbow. Right dorsal ulnar cutaneous sensory nerve was within normal. This is expected to be normal in all cases of ulnar neuropathy at the wrist. Right median sensory nerve showed mildly prolonged peak latency. All other nerves tested were within normal. Concentric needle EMG was performed in selected muscles of the right upper extremity. Study revealed signs of electric abnormalities as shown in the table above. Right FDI and ADM showed increased insertional activity, PSWs and fibrillations. IMPRESSION: 1. This is an abnormal study. 2. There is electrodiagnostic evidence for right ulnar neuropathy at the wrist 3. There is still mild prolongation of right median sensory latency, but overall improved compared to previous EMG and after surgery. 4.There is no electrodiagnostic evidence for brachial plexopathy or cervical radiculopathy. Thank you for your kind referral. Fina Mcdonnell MD, EBONY Board Certified, [place] [employer] and [employer] (ABPMR) Board Certified, [place] [employer] Electrodiagnostic [employer] (ABEM) [place] [id number] [facility]
--- OUTSIDE RECORDS SUMMARY | 2024-07-21 09:42 | XMS_ITS | Data Portability ---
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 Name Role Phone BEBE VELASCO Primary Care [...] Address Organization Details Recorded Time Bilateral tinnitus [id number] Active 2018 Tinnitus, bilateral ; Note: Date Diagnosed : 09/16/2018 9:36 AM (H93.13) Not Available [facility] 4 03:05:03 Sensorine ural hearing loss of bilateral ears 033790515 Active 2018 Sensorine ural hearing loss, bilateral ; Note: Date Diagnosed : 09/16/2018 9:36 AM (H90.3) Not Available [facility] 4 03:05:03 Migraine with aura 0053657 Active 2018 Migraine with aura, not intractab le, without status migrainos us; Note: Date Diagnosed : 09/16/2018 9:50 AM (G43.109) Not Available [facility] 4 03:05:05 Dizziness and giddiness 987228945 Active 2018 Dizziness and giddiness ; Note: Date Diagnosed : 09/16/2018 9:36 AM (R42) Not Available [facility] 4 03:05:03 Gastroeso phageal reflux disease without esophagit is 731394437 Active 2018 Gastro-es ophageal reflux disease without esophagit is; Note: Date Diagnosed : 09/16/2018 9:57 AM (K21.9) Not Available [facility] 4 03:05:03 Headache 77025423 Active 2018 Facial pain NOS; Note: Date Diagnosed : 09/16/2018 9:50 AM (R51) Not Available [facility] 4 03:05:02 Recurrent acute sinusitis 215346643 Active 2024 HARPREET HALEY MD [address] [place] [address], [place], [phone] , [place] [facility] 5 16:29:55 Allergic rhinitis 96404216 Active 2024 HARPREET HALEY MD [address] [place] [address], [place], [phone] , [place] [facility] 5 16:30:02 Problem Notes None recorded. Procedures Surgical History Date Name Laterality Status Provider Name and Address Organization Details Recorded Time 03/12/2024 Comp Audio with Tymps - 30785 & 75575 completed ADALI ASKEW [place], CCC-A [address] [address], [place], [phone], [facility] 03/12/2024 16:00:59 03/12/2024 NasalEndosc opy_DP completed HARPREET HALEY MD [address] [place] [address], [place], [phone], [facility] 03/12/2024 16:29:37 Imaging Results None recorded. Procedure Notes None recorded. Medical Equipment None Reported. Allergies Allergen ID Allergen Name Allergen Category Reaction Reaction Severity Criticality Documentation Date Start Date Code Code System Note Provider Name and Address Organization Details Recorded Time 669736 tacrolimu s medicatio n Not available Not available Not available 03/12/2024 19909 RxNorm Zoraida Potvin null, [place] - [facility] 15:11:51 923035 Nexletol medicatio n Not available Not available Not available 03/12/2024 04005 09 RxNorm Zoraida Potvin null, [place] - [facility] 15:12:16 794877 Miebo medicatio n Not available Not available Not available 03/12/2024 97190 52 RxNorm Zoraida Potvin null, [place] - [facility] 15:12:27 785914 sulindac medicatio n Not available Not available Not available 03/12/2024 79860 RxNorm Zoraida Potvin null, [place] - [facility] 15:12:36 945968 Fosamax medicatio n Not available Not available Not available 03/12/2024 79446 5 RxNorm Zoraida Potvin null, [place] - [facility] 15:12:46 110356 latex environme nt,medica tion Not available Not available Not available 03/12/2024 40348 91 RxNorm Zoraida Potvin null, [place] - [facility] 15:13:27 507231 Dexilant medicatio n Not available Not available Not available 03/12/2024 31889 1 RxNorm Zoraida [place] abdul - [facility] 5 15:13:54 713833 doxycycli ne Not available Not available Not available Not available 03/12/2024 3640 RxNorm Zoraida [place] franko [place] - [facility] 5 15:14:23 Medications Name Sig Start [...] Smoking Status Former Smoker HARPREET HALEY MD [address] [place] [address], [place], [phone], [facility] - [facility] 03/12/2024 09:06:30 How Much Tobacco Do [...] Disorder N Anesthesia Complications N Heart Attack (IN) N Other Skin Condition N Diabetes N [...] SNOMED-CT Code Diagnosis ICD10 Code Diagnosis Note [id number] HARPREET HALEY MD [facility] [address] [place] [address] 03/12/2024 14:19:20 03/12/2024 16:35:50 Sensorineural hearing loss of bilateral ears [id number] H90.3 Audiologic al evaluation results: Right ear: [...] A Left Ear:Type A Recurrent acute sinusitis 690149491 J01.91 Allergic rhinitis 434274 04 J30.9 Health Concerns Section Related Observation LastModified by Organization Detai ls LastModified Time None Recorded Concern Status LastModified by Organization Details LastModified Time None Recorded Advance Directives Directive None Recorded Payers Insurance Date Sequence Insurance Name Policy Number Policy Gill Covered Member ID Gill Member ID Guarantor Name 03/12/2024 1 [employer] (MEDICARE SUPPLEMENT) Adali Holman [id number] Adali Holman 03/12/2024 1 [place] [id number] Adali Kellyude [id number] Adali Kellyude 03/12/2024 1 [employer] Adali Holman [id number] Adali Holman 05/26/2024 1 [facility] - MEDICARE PREFERRED (MEDICARE REPLACEMENT HMO) [facility] Adali Kellyude [id number] Adali Holman 05/26/2024 1 [facility] (MEDICARE REPLACEMENT/A DVANTAGE - PPO) [id number] Adali Holman [id number] Adali Holman Notes Date Note Type Note [...] her sinus congestion symptoms HARPREET HALEY MD [address] [place] [address], [place], [phone], [facility] - [facility] 03/12/2024 16:35:50 OBGyn Episode No OBEpisode recorded.
== END 2024-07-21 09:09 | disposition home or self-care (01) ==
LOC: HO.NEURO 09:08
PROVIDERS: PCP Nurse Practitioner Family; Visit Provider Orthopaedic Surgery
DX: G56.21 Lesion of ulnar nerve, right upper limb (principal)
CPT/HCPCS: 95886; 95909

== ENCOUNTER → 2024-07-21 09:11 | Outpatient (BNV) | payer MEDICARE, SELFPAY | PROVIDERS: PCP Nurse Practitioner Family; Visit Provider Physical Medicine & Rehabilitation | DX: G56.21 Lesion of ulnar nerve, right upper limb (principal) | CPT/HCPCS: 95886; 95909 ==

== ENCOUNTER 2024-08-03 11:26 | Outpatient (AMB) | payer MEDICARE, SELFPAY ==
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
--- OUTSIDE RECORDS SUMMARY | 2024-08-03 13:03 | XMS_ITS | Data Portability ---
Author Organization [place] - [facility], Allergy Address [address] [address] Care Team Providers Care Player Manager Name Role Phone BEBE VELASCO Primary Care [...] Address Organization Details Recorded Time Bilateral tinnitus [id number] 02 Active 2018 Tinnitus, bilateral ; Note: Date Diagnosed : 09/16/2018 9:36 AM (H93.13) Not Available [facility] 4 03:05:03 Sensorine ural hearing loss of bilateral ears 589400577 Active 2018 Sensorine ural hearing loss, bilateral ; Note: Date Diagnosed : 09/16/2018 9:36 AM (H90.3) Not Available [facility] 4 03:05:03 Migraine with aura 5529335 Active 2018 Migraine with aura, not intractab le, without status migrainos us; Note: Date Diagnosed : 09/16/2018 9:50 AM (G43.109) Not Available [facility] 4 03:05:05 Dizziness and giddiness 735088580 Active 2018 Dizziness and giddiness ; Note: Date Diagnosed : 09/16/2018 9:36 AM (R42) Not Available [facility] 4 03:05:03 Gastroeso phageal reflux disease without esophagit is 245415648 Active 2018 Gastro-es ophageal reflux disease without esophagit is; Note: Date Diagnosed : 09/16/2018 9:57 AM (K21.9) Not Available [facility] 4 03:05:03 Headache 72573570 Active 2018 Facial pain NOS; Note: Date Diagnosed : 09/16/2018 9:50 AM (R51) Not Available [facility] 4 03:05:02 Recurrent acute sinusitis 550236114 Active 2024 HARPREET HALEY MD [address] [place] [address], [place], [phone] , [place] - [facility] 5 16:29:55 Allergic rhinitis 92786826 Active 2024 HARPREET HALEY MD [address] [place] [address],[place] [address], [place], [phone] , [place] [facility] 5 16:30:02 Problem Notes None recorded. Procedures Surgical History Date Name Laterality Status Provider Name and Address Organization Details Recorded Time 03/12/2024 Comp Audio with Tymps - 19281 & 05745 completed ADALI ASKEW MA, CCC-A [address] [place] [address], [phone], [facility] 03/12/2024 16:00:59 03/12/2024 NasalEndosc opy_DP completed HARPREET HALEY MD [address] [place] [address], [phone], [facility] 03/12/2024 16:29:37 Imaging Results None recorded. Procedure Notes None recorded. Medical Equipment None Reported. Allergies Allergen ID Allergen Name Allergen Category Reaction Reaction Severity Criticality Documentation Date Start Date Code Code System Note Provider Name and Address Organization Details Recorded Time 797599 tacrolimu s medicatio n Not available Not available Not available 03/12/2024 54927 RxNorm Zoraida Potvin null, [place] - [facility] 15:11:51 738780 Nexletol medicatio n Not available Not available Not available 03/12/2024 67392 09 RxNorm Zoraida Potvin null, [place] [facility] 15:12:16 844537 Miebo medicatio n Not available Not available Not available 03/12/2024 76760 52 RxNorm Zoraida Potvin null, [place] [facility] 15:12:27 882854 sulindac medicatio n Not available Not available Not available 03/12/2024 69791 RxNorm Zoraida Potvin null, [place] [facility] 15:12:36 856131 Fosamax medicatio n Not available Not available Not available 03/12/2024 27616 5 RxNorm Zoraida Potvin [place], [place] [facility] 15:12:46 551171 latex environme nt,medica tion Not available Not available Not available 03/12/2024 64712 91 RxNorm Zoraida Potvin null, [place] [facility] 15:13:27 821765 Dexilant medicatio n Not available Not available Not available 03/12/2024 22615 1 RxNorm Zoraida Marsh [place] abdul - [facility] 5 15:13:54 880655 doxycycli ne Not available Not available Not available Not available 03/12/2024 3640 RxNorm Zoraida Marsh franko [place] - [facility] 5 15:14:23 Medications Name Sig Start [...] Smoking Status Former Smoker HARPREET HALEY MD [address] [place] [address], [place], [phone], [facility] - [facility] 03/12/2024 09:06:30 How Much Tobacco Do You Smoke? 0.25 PPD [email or web address] Information not available 03/12/2024 Sex: Unknown Functional Status None recorded. Mental Status None recorded. Family History Nothing Reported. Medical History Condition Response Tonsil Infections N Emphysema N Glaucoma N Depression N COPD N Nasal or Sinus Problems Y Anesthesia Complications N Arthritis Y Hearing Loss Y Cancer Y Stroke N High Cholesterol Y Liver Disease N Headaches N Fibromyalgia N Speech Delay N Kidney Disease N Allergies/Hayfever Y Heart Problems Y Anxiety Y Migraines N Thyroid Problems N Developmental Delay N Anemia N Immune System Disorder N Heart Attack (OK) N Other Skin Condition N Diabetes N Rhinitis Y Bleeding Disorder N Food Allergy Y Hyperlipidemia N Dementia N Nasal polyps N Asthma Y Sleep Disorder N GERD/Reflux Y Hypertension Y Gynecological HistoryNo gynecological history recorded. Obstetrics History GPAL:G 0 P 0 0 0 0 Past Encounters Encounter ID Performer Location Encounter Start Date Encounter Closed Date Diagnosis/Indication Diagnosis SNOMED-CT Code Diagnosis ICD10 Code Diagnosis Note [id number] HARPREET HALEY MD [facility] [address] [address] 03/12/2024 14:19:20 03/12/2024 16:35:50 Sensorineural hearing loss of bilateral ears [id number] H90.3 Audiologic al evaluation results: Right ear: Normal/ borderline normal hearing thru 1500Hz, sloping to a mild to severe SNHL with excellent word recognitio n. Left ear: Normal hearing thru 3000Hz dropping to a mild to severe SNHL with excellent word recognitio n. Tympanomet ry: Right Ear:Type A Left Ear:Type A Recurrent acute sinusitis 693069298 J01.91 Allergic rhinitis 886946 04 J30.9 Health Concerns Section Related Observation LastModified by Organization Detai ls LastModified Time None Recorded Concern Status LastModified by Organization Details LastModified Time None Recorded Advance Directives Directive None Recorded Payers Insurance Date Sequence Insurance Name Policy Number Policy Gill Covered Member ID Gill Member ID Guarantor Name 03/12/2024 1 [employer] (MEDICARE SUPPLEMENT) Adali I Houde [id number] Adali I Houde 03/12/2024 1 [place] [facility] Adali I Houde [id number] Adali I Houde 03/12/2024 1 [employer] Adali I Houde [id number] Adali I Houde 05/26/2024 1 [facility] - MEDICARE PREFERRED (MEDICARE REPLACEMENT HMO) [employer] Adali I Houde [id number] Adali I Houde 05/26/[address] [facility] (MEDICARE REPLACEMENT/A DVANTAGE - PPO) [id number] Adali Holman [id number] Adali Holman Notes Date Note Type Note Provider Name and Address Organization Details Recorded Time 03/12/2024 text/html tinnitustried hearing aid with poor tolerance recent sinus/ear infection - rx zpak completed sinus infections per yearRAST +birkathy, cat PV 09/16/2018 Schreibstein, dizziness, tinnitus, sinus [...] her sinus congestion symptoms HARPREET HALEY MD [address] [place] [address], [place], [phone], [facility] - [facility] 03/12/2024 16:35:50 OBGyn Episode No OBEpisode recorded.
== END 2024-08-03 12:15 | disposition home or self-care (01) ==
LOC: HO.HOP 11:26
PROVIDERS: PCP Nurse Practitioner Family; Visit Provider Clinical Nurse Specialist Psychiatric/Mental Health
DX: F43.12 Post-traumatic stress disorder, chronic (principal); F41.0 Panic disorder [episodic paroxysmal anxiety]
CPT/HCPCS: 90833; 99213

== ENCOUNTER 2024-08-03 12:20 | Outpatient (REF) | payer MEDICARE, SELFPAY ==
--- NOTE | 2024-08-03 12:59 | PFT_ITS ---
Flows: FEV1: 88 % of predicted at 1.53 L FVC: 85 % of predicted at 1.90 L FEV1/FVC: 80 % Bronchodilator response: Present Volumes: Total lung capacity: 85 % of predicted at 3.47 L Residual volume: 81 % of predicted at on 1.41 L Slow vital capacity: 88 % of predicted at 2.06 L Expiratory reserve volume: 33 % of predicted at 0.18 L Diffusion capacity: Normal Impression: No obstructive or restrictive ventilatory defect. Positive bronchodilator response. Decreased expiratory reserve volume suggests extrathoracic restriction likely secondary to abdominal obesity. MTDD
[2024-08-03 13:46] VITALS: PULSE 61; O2SAT 98
== END 2024-08-03 12:21 | disposition home or self-care (01) ==
LOC: HO.RESP 12:20
PROVIDERS: PCP Nurse Practitioner Family; Visit Provider Hospitalist
DX: R06.02 Shortness of breath (principal); F43.12 Post-traumatic stress disorder, chronic; F41.0 Panic disorder [episodic paroxysmal anxiety]
CPT/HCPCS: 94010; 94640; 94727; 94729; 99212

== ENCOUNTER → 2024-08-03 12:59 | Outpatient (BNV) | payer MEDICARE, SELFPAY | PROVIDERS: PCP Nurse Practitioner Family; Visit Provider Internal Medicine Pulmonary Disease | DX: R06.00 Dyspnea, unspecified (principal) | CPT/HCPCS: 94060; 94727; 94729 ==

== ENCOUNTER 2024-08-06 09:03 | Outpatient (AMB) | payer MEDICARE, SELFPAY ==
--- NOTE | 2024-08-06 09:12 | MHC.OFFVIS ---
Vital Signs 08/06/24 09:14 Height 4 ft 11 in Weight 160 lb BMI 32.3 BP 142/80 H Blood Pressure Location Lt brachial Position Sitting Respiration 16 Pulse 81 Pulse Source Pulse Oximeter Pulse Oximetry (%) 97 Oxygen Delivery Method Room Air Intake Visit Reasons: Trigger point inj Human Resources File Clerk Required: No Asbestos Shingle Inspector: Asbestos Shingle Inspector Present Accompanied by: Cisco T Allergies dexlansoprazole (From DEXILANT) Allergy (Severe, Verified 08/06/24 09:16) dizziness, change in HR risedronate sodium (From ACTONEL) Allergy (Severe, Verified 08/06/24 09:16) chest discomfort Ububsht-XZV-IlM Reductase Inhibitor (FTJZXBZ-WDG-AAN REDUCTASE INHIBITOR) Allergy (Severe, Verified 08/06/24 09:16) JOINT PAIN tramadol (TRAMADOL) Allergy (Severe, Verified 08/06/24 09:16) THROAT TIGHTNESS amlodipine (AMLODIPINE) Allergy (Intermediate, Verified 08/06/24 09:16) PALIPITATIONS Atrovent Allergy (Intermediate, Verified 08/06/24 09:16) Cough baclofen (BACLOFEN) Allergy (Intermediate, Verified 08/06/24 09:16) LETHARGY Beta-Blockers (Beta-Adrenergic Bloc Allergy (Intermediate, Verified 08/06/24 09:16) BRADYCARDIA budesonide (From SYMBICORT) Allergy (Intermediate, Verified 08/06/24 09:16) HOARSENESS Chocolate Allergy (Intermediate, Verified 08/06/24 09:16) GERD ezetimibe (From ZETIA) Allergy (Intermediate, Verified 08/06/24 09:16) JOINT PAIN, ELEVATED CPK fluticasone (From ADVAIR DISKUS) Allergy (Intermediate, Verified 08/06/24 09:16) HTN glucosamine Allergy (Intermediate, Verified 08/06/24 09:16) LE edema ibandronate sodium (From BONIVA) Allergy (Intermediate, Verified 08/06/24 09:16) CHEST PAIN latex (LATEX) Allergy (Intermediate, Verified 08/06/24 09:16) RASH-SENSITIVITY lisinopril (LISINOPRIL) Allergy (Intermediate, Verified 08/06/24 09:16) COUGH, really bad cough meloxicam (From MOBIC) Allergy (Intermediate, Verified 08/06/24 09:16) GI UPSET mometasone furoate (From DULERA) Allergy (Intermediate, Verified 08/06/24 09:16) COUGH niacin Allergy (Intermediate, Verified 08/06/24 09:16) Flushing Penicillins (PENICILLINS) Allergy (Intermediate, Verified 08/06/24 09:16) RASH pregabalin (From LYRICA) Allergy (Intermediate, Verified 08/06/24 09:16) GERD flare up raloxifene (From EVISTA) Allergy (Intermediate, Verified 08/06/24 09:16) GERD rofecoxib (From Vioxx) Allergy (Intermediate, Verified 08/06/24 09:16) ankle swelling salmeterol (From ADVAIR DISKUS) Allergy (Intermediate, Verified 08/06/24 09:16) HTN scallops (SCALLOPS) Allergy (Intermediate, Verified 08/06/24 09:16) NAUSEA & VOMITING sertraline (From ZOLOFT) Allergy (Intermediate, Verified 08/06/24 09:16) SKIN CRAWLING spironolactone (SPIRONOLACTONE) Allergy (Intermediate, Verified 08/06/24 09:16) RASH, ?? psoriasis strawberry (STRAWBERRY) Allergy (Intermediate, Verified 08/06/24 09:16) ITCHING tiotropium (From SPIRIVA WITH HANDIHALER) Allergy (Intermediate, Verified 08/06/24 09:16) RAW THROAT, pharyngitis verapamil (VERAPAMIL) Allergy (Intermediate, Verified 08/06/24 09:16) IRREGULAR HEARTBEAT esomeprazole (Nexium) Allergy (Mild, Verified 08/06/24 09:16) did not resolve GERD naproxen (From ALEVE) Allergy (Mild, Verified 08/06/24 09:16) FLUSH omeprazole Allergy (Mild, Verified 08/06/24 09:16) did not resolve GERD tacrolimus Allergy (Mild, Verified 08/06/24 09:16) Rash adhesive (ADHESIVE) Allergy (Unknown, Verified 08/06/24 09:16) RASH doxycycline (DOXYCYCLINE) Allergy (Unknown, Verified 08/06/24 09:16) SEVERE NOYOLA, HEARTBURN, joint pain gabapentin (From NEURONTIN) Allergy (Unknown, Verified 08/06/24 09:16) leg swelling, SOB metoclopramide (From REGLAN) Allergy (Unknown, Verified 08/06/24 09:16) LETHARGY monosodium glutamate (MSG) Allergy (Unknown, Verified 08/06/24 09:16) HEADACHE, increased HR lifitegrast (From Xiidra) Allergy (Verified 08/06/24 09:16) blurred vision, headache, eye swelling metoprolol Adverse Reaction (Severe, Verified 08/06/24 09:16) Severe bradycardia alendronate sodium (From Fosamax) Adverse Reaction (Intermediate, Verified 08/06/24 09:16) Joint Pain amitriptyline Adverse Reaction (Intermediate, Verified 08/06/24 09:16) Agitated cyclosporine (From Cequa) Adverse Reaction (Intermediate, Verified 08/06/24 09:16) Eye Swelling fluticasone furoate (From Trelegy Ellipta) Adverse Reaction (Intermediate, Verified 08/06/24 09:16) asthma exacerbation perfluorohexyloctane (From Miebo) Adverse Reaction (Intermediate, Verified 08/06/24 09:16) Eye Swelling tobramycin (From Tobrex) Adverse Reaction (Intermediate, Verified 08/06/24 09:16) Eye Swelling umeclidinium (From Trelegy Ellipta) Adverse Reaction (Intermediate, Verified 08/06/24 09:16) asthma exacerbation vilanterol (From Trelegy Ellipta) Adverse Reaction (Intermediate, Verified 08/06/24 09:16) asthma exacerbation azelastine Adverse Reaction (Mild, Verified 08/06/24 09:16) Gastrointestinal Upset hi Adverse Reaction (Intermediate, Uncoded 08/06/24 09:16) Itchy Eyes Sulindac Adverse Reaction (Intermediate, Uncoded 08/06/24 09:16) Nausea, pain Medication List - Last Reconciled 08/06/24 by Jackie Pryor LPN acetaminophen ER (Tylenol Arthritis Pain) 650 mg PO Q12H aspirin (Adult Aspirin Regimen) 81 mg PO DAILY beclomethasone dipropionate 80 mcg/actuation (Qvar RediHaler) 1 inh inhalation BID 30 days Bifidobacterium infantis (Align (B.infantis)) 4 mg PO DAILY cetirizine (Zyrtec) 10 mg PO DAILY PRN cholecalciferol (vitamin D3) 25 mcg PO DAILY 30 days cyclosporine 0.05% (Restasis) 1 drp ophthalmic (eye) Q12H denosumab (Prolia) 60 mg subcut Q4LHPVRU dextran 70-hypromellose (PF) 0.1-0.3 % (Artificial Tears (PF)) 1 drp ophthalmic (eye) BEDTIME docusate sodium (Colace) 100 mg PO BID flunisolide 2 sprays intranasal BID PRN levalbuterol tartrate 45 mcg/actuation 2 puffs inhalation Q4H PRN lorazepam (Ativan) 0.5 mg PO BID PRN losartan-hydrochlorothiazide 50-12.5 mg 1 tab PO DAILY magnesium oxide 500 mg PO DAILY montelukast 10 mg PO DAILY 90 days pantoprazole 40 mg PO BID Repatha SureClick (evolocumab) 140 mg subcut Q2W NS sucralfate 1 g PO BID 90 days HPI HPI Trigger point inj: Details: History of Present Illness The patient is a 74-year-old female presenting for repeat trigger point injections. Previous injections have been beneficial in reducing neck, shoulder, and arm flexing, though nerve pain persists. The pain is bilateral and dull, not shooting. She discontinued hydrochlorothiazide to conduct a 24-hour urine test, resulting in elevated blood pressure readings around 146/80 mmHg. Her joints and fingers are healing, but hypertension persists. 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 Pain Description - Onset and Timing: Chronic pain with previous interventions - Quality and Character: Dull, bilateral nerve pain - Primary Location: Neck, shoulder, and arm - Areas of Radiation: Bilateral - Exacerbating Factors: Discontinuation of hydrochlorothiazide - Relieving Factors: Previous trigger point injections Physical Exam - Tender triggers identified Results - Nerve conduction studies: Ulnar nerve neuropathy diagnosed Pain Management - Affect: Pain impacts daily activities and mood - Analgesia: Previous trigger point injections provided relief - Adverse Effects: None reported - Activities of Daily Living: Pain affects neck, shoulder, and arm movement - Aberrant Drug Related Behaviors: None reported Procedure - Procedure: Left greater and lesser occipital nerve blocks, trigger point injections to cervical occipitalis, trapezius, rhomboid, levator scapulae, and latissimus dorsi - Anesthetic: 3mL 0.5% ropivacaine for nerve blocks and 0.5 mL 0.25% ropivacaine injected at each trigger point - Consent: Informed consent obtained - Outcome: No blood loss, patient tolerated the procedure well [facility] Medical History Esophageal spasm Hx of carcinoma of bladder Bladder carcinoma History of trigger finger Cervical radiculitis Chronic sinusitis GERD (gastroesophageal reflux disease) FRANCESCA (obstructive sleep apnea) CAD (coronary artery disease) History of primary hyperparathyroidism Non-toxic multinodular goiter Osteoporosis Pulmonary nodules H/O gastroesophageal reflux (GERD) HLD (hyperlipidemia) HTN (hypertension) COPD (chronic obstructive pulmonary disease) Asthma History of aneurysm Migraine Depression PTSD (post-traumatic stress disorder) History of panic attacks Anxiety Edema History of deviated nasal septum Medial epicondylitis of left elbow Fusion of spine, cervical region Surgical History History of carpal tunnel release Hx of cystoscopy H/O cervical spine surgery Hx of hand surgery Hx of right inguinal hernia repair History of hernia repair Hx of colonoscopy History of esophagogastroduodenoscopy (EGD) S/P repair of paraesophageal hernia H/O decompression of ulnar nerve Status post ablation of incompetent vein using laser History of cardiac catheterization History of eyelid surgery History of appendectomy History of parathyroidectomy History of cholecystectomy Hx of cataract surgery Hx of shoulder surgery S/P cubital tunnel release S/P arthroscopic surgery of right knee History of lumpectomy of both breasts History of hysterectomy Hx of adenoidectomy Hx of tonsillectomy Hx of eye surgery Family History Father Liver cancer Psoriasis Cancer Mental health disorder Mother Cervical cancer Ovarian cancer Heart attack Substance use disorder Social History Household Members: Children and None Housing: House Alcohol intake: current Alcohol intake frequency: does not drink Patient Tobacco Use Status: Former Tobacco user Tobacco use type: Cigarette e-Cigarette/Vaping Use: Never Used Second Hand Smoke Exposure: No service: No Current occupational status: employed 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 - Monitor blood pressure closely due to discontinuation of hydrochlorothiazide and elevated readings. - Follow up in six weeks for reassessment and potential repeat injections. Patient was informed and verbally consented to the use of an ambient scribe for clinic note documentation during this visit. Discussion Notes I discussed with the patient the benefits and potential risks of continuing trigger point injections for chronic pain management. We reviewed the importance of monitoring blood pressure closely due to the recent discontinuation of hydrochlorothiazide. The patient was informed about the follow-up plan in six weeks for reassessment and potential repeat injections. Informed consent was obtained for the procedures performed today. Patient Instructions - Continue monitoring your blood pressure regularly and report any significant changes. - Follow up in six weeks for reassessment and potential repeat injections. - Contact the clinic if you experience any new or worsening symptoms. Coding Level of Care Code Procedure Only Diagnoses Headache R51.9 Myofascial neck pain M54.2
[2024-08-06 09:14] VITALS: BP 142/80; PULSE 81; RESP 16; O2SAT 97; BMI 32.3
--- OUTSIDE RECORDS SUMMARY | 2024-08-06 09:22 | XMS_ITS | Patient Health Record ---
Author Organization [facility] Address [address] [place] [address] Care Team Providers Care Tomato Grader Name Role Phone Augustine Carrera M.D. Primary Care Provider Ruth Manas Blas Unavailable [phone] Allergies Allergen (clinical drug ingredient) Drug/Non Drug Allergy documented on EMR Reaction Allergy Type Onset Date Status naproxen Naproxen Unknown Drug Allergy Active Substance with beta adrenergic receptor antagonist mechanism of action (substance) BETA blockers (uncoded) Unknown Allergy Active meloxicam Mobic Unknown Drug Allergy Active seasonal (uncoded) Unknown Allergy A ctive Metoprolol Succinate Unknown Drug Allergy Active some food allergies (uncoded) Unknown Allergy Active pregabalin Lyrica Unknown Drug Allergy Active rofecoxib Vioxx (uncoded) Unknown Allergy Acti ve Lisinopril Unknown Drug Allergy Active Latex latex (uncoded) Unknown Allergy Acti ve raloxifene Evista Unknown Drug Allergy Active rosuvastatin Crestor Unknown Drug Allergy Acti ve Penicillin Unknown Drug Allergy Active ibandronate Boniva Unknown Drug Allergy Activ e formoterol / mometasone Dulera Unknown Drug Allergy Active baclofen Baclofen Unknown Drug Allergy Active sertraline Zoloft Unknown Drug Allergy Active amlodipine Amlodipine Besylate Unknown Drug Allergy Active verapamil Verapamil HCl Unknown Drug Allergy Act hai amitriptyline Amitriptyline HCl Unknown Drug Allergy Active tramadol Tramadol HCl Unknown Drug Allergy Acti ve Aleve Unknown Drug Allergy Active budesonide / formoterol Symbicort Unknown Drug Allergy Active fluticasone / salmeterol Advair Diskus Unknown Drug Allergy Active spironolactone Spironolactone Unknown Drug Allergy Active risedronate Actonel Unknown Drug Allergy Activ e tiotropium Spiriva HandiHaler Unknown Drug Allergy Active simvastatin Simvastatin Unknown Drug Allergy Act hai low tolerance and sensitivity to pain meds (uncoded) Unknown Allergy Active metoclopramide Reglan Unknown Drug Allergy Ac tive Substance with penicillin structure and antibacterial mechanism of action (substance) PCN based antibiotics (uncoded) Unknown Allergy Active Reason For Referral No Information Medications Medication SIG (Take, Route, Frequency, Duration) Notes Start Date End Date Status Protonix 40mg 1 QD 02/11/2024 02/11/2024 Acti ve LORazepam .05mg Acti ve Ibuprofen 600mg Acti ve Vicodin 5/325mg Acti ve MiraLax prn 02/11/2024 02/11/2024 Active Aspir-81 81mg Active Clobetasol Prop Emollient Base 0.05% Active Calcipotriene 0.50% Active Singulair 10mg Activ e Furosemide 10mg Acti ve Qvar 40mcg Active Launiupoko-Smoothe/FS Body 0.01% Active Vitamin D 2400 Activ e Losartan Potassium 25mg Active ZyrTEC 10mg Active Ventolin HFA Active Multi Vitamin/Minerals Active Artificial Tears Act hai Problems Problem Type SNOMED Code ICD Code Onset Dates Problem Status W/U Status Risk Notes Problem Irritable bowel syndrome (06443781) Irritable bowel syndrome (564.1) Active confirmed Problem Diarrhea (30829160) Diarrhea (787.91) Active confirmed Problem Generalized abdominal pain (779135046) Abdominal pain, generalized (789.07) Active confirmed Problem Constipation (25340619) Constipation (564.00) Active confirmed Problem Gastroesophageal reflux disease (674923394) GERD (gastroesophage al reflux disease) (530.81) Active confirmed Problem Epigastric pain (73722933) Abdominal discomfort, epigastric (789.06) Active confirmed Problem Gas (35037293) Gas (787.3) Active confirmed Plan Of Treatment Future Test Test Name Order Date UPPER GI ENDOSCOPY 08/15/2011 Insurance Providers Payer Name Payer Address Payer Phone Subscriber Number Group Number Insured Name Patient Relationship to Insured Coverage Start Date Coverage End Date MEDICARE OF [place] [address] [place] [address] [id number] JORGITO ALCANTARA Self - patient is the insured MEDICAID OF [facility] [address] [facility] [place] [phone] [id number] JORGITO ALCANTARA Self - patient is the insured Medical (General) History Medical History History ICD Code screening colonoscopy 07-23-2006--neg. fo r polyps EGD 06-11-1999 and 02/17 negative for signi ficant esophagitis nor ulcer disease GERD hx of duodenal ulcer in the 1969's Denies MO,DM,CVA,renal disease irregular heart beat elevated chloresterol hypertension osteoporosis Hiatal hernia Denies MO,DM,CVA,renal disease Mild asthma Anxiety Negative cardiac catheterization in 11/[address] Yadav Surgical History Surgery Date(Month/Year) hysterectomy for cervical cancer 1978 eyelid surgery 02/28/2010 eye surgery- crossed eye 1956 shoulder surgery 1957 C-spine surgery for a pinched nerve 20 10 Lumpectomy-right breast-benign 1993 lumpectomy-left breast-benign 2000 arthroscopic right knee 2004 ulnar nerve surgery biopsy lump on neck-benign 2007 Left eye cateract 02/19/11 right eye cateract 03/26/2011 cholecystectomy for stones-Dr. Adan lipoma from LUQ abdominal wall 10/15/2012 spinal/neck fusion C5-C7-Dr. Machado 11/10 08/22
== END 2024-08-06 09:49 | disposition home or self-care (01) ==
LOC: HO.PMC 09:04
PROVIDERS: PCP Nurse Practitioner Family; Visit Provider Internal Medicine
DX: R51.9 Headache, unspecified (principal); M79.18 Myalgia, other site
CPT/HCPCS: 20553; 64405; 64450

== ENCOUNTER → 2024-08-06 09:03 | Outpatient (BNVA) | payer MEDICARE, SELFPAY | PROVIDERS: PCP Nurse Practitioner Family; Visit Provider Internal Medicine | DX: M79.18 Myalgia, other site (principal); R51.9 Headache, unspecified; M54.2 Cervicalgia | CPT/HCPCS: 20553; 64405; 64450 ==

== ENCOUNTER 2024-08-24 09:18 | Outpatient (AMB) | payer MEDICARE, SELFPAY ==
[2024-08-24 09:24] VITALS: BMI 32.3
--- NOTE | 2024-08-24 09:24 | A.OFFVIS_ITS ---
Vital Signs 08/24/24 09:24 Height 4 ft 11 in Weight 160 lb BMI 32.3 Intake Visit Reasons: OV-Rt hand EMG review Intake Note: Adali 74 yr old female presents today for her EMG review Done with Dr Zambrano. Patient also mentioned her symptoms have worsen as well as the burning sensation. IMPRESSION: 1. This is an abnormal study. 2. There is electrodiagnostic evidence for right ulnar neuropathy at the wrist 3. There is still mild prolongation of right median sensory latency, but overall improved compared to previous EMG and after surgery. 4.There is no electrodiagnostic evidence for brachial plexopathy or cervical radiculopathy. Allergies dexlansoprazole (From DEXILANT) Allergy (Severe, Verified 02/17/25 10:14) dizziness, change in HR risedronate sodium (From ACTONEL) Allergy (Severe, Verified 02/17/25 10:14) chest discomfort Qtvuzgn-FWA-TuH Reductase Inhibitor (QAPDUUR-XBF-FGI REDUCTASE INHIBITOR) Allergy (Severe, Verified 02/17/25 10:14) JOINT PAIN tramadol (TRAMADOL) Allergy (Severe, Verified 02/17/25 10:14) THROAT TIGHTNESS amlodipine (AMLODIPINE) Allergy (Intermediate, Verified 02/17/25 10:14) PALIPITATIONS Atrovent Allergy (Intermediate, Verified 02/17/25 10:14) Cough baclofen (BACLOFEN) Allergy (Intermediate, Verified 02/17/25 10:14) LETHARGY Beta-Blockers (Beta-Adrenergic Bloc Allergy (Intermediate, Verified 02/17/25 10:14) BRADYCARDIA budesonide (From SYMBICORT) Allergy (Intermediate, Verified 02/17/25 10:14) HOARSENESS Chocolate Allergy (Intermediate, Verified 02/17/25 10:14) GERD ezetimibe (From ZETIA) Allergy (Intermediate, Verified 02/17/25 10:14) JOINT PAIN, ELEVATED CPK fluticasone (From ADVAIR DISKUS) Allergy (Intermediate, Verified 02/17/25 10:14) HTN glucosamine Allergy (Intermediate, Verified 02/17/25 10:14) LE edema ibandronate sodium (From BONIVA) Allergy (Intermediate, Verified 02/17/25 10:14) CHEST PAIN latex (LATEX) Allergy (Intermediate, Verified 02/17/25 10:14) RASH-SENSITIVITY lisinopril (LISINOPRIL) Allergy (Intermediate, Verified 02/17/25 10:14) COUGH, really bad cough meloxicam (From MOBIC) Allergy (Intermediate, Verified 02/17/25 10:14) GI UPSET mometasone furoate (From DULERA) Allergy (Intermediate, Verified 02/17/25 10:14) COUGH niacin Allergy (Intermediate, Verified 02/17/25 10:14) Flushing Penicillins (PENICILLINS) Allergy (Intermediate, Verified 02/17/25 10:14) RASH pregabalin (From LYRICA) Allergy (Intermediate, Verified 02/17/25 10:14) GERD flare up raloxifene (From EVISTA) Allergy (Intermediate, Verified 02/17/25 10:14) GERD rofecoxib (From Vioxx) Allergy (Intermediate, Verified 02/17/25 10:14) ankle swelling salmeterol (From ADVAIR DISKUS) Allergy (Intermediate, Verified 02/17/25 10:14) HTN scallops (SCALLOPS) Allergy (Intermediate, Verified 02/17/25 10:14) NAUSEA & VOMITING sertraline (From ZOLOFT) Allergy (Intermediate, Verified 02/17/25 10:14) SKIN CRAWLING spironolactone (SPIRONOLACTONE) Allergy (Intermediate, Verified 02/17/25 10:14) RASH, ?? psoriasis strawberry (STRAWBERRY) Allergy (Intermediate, Verified 02/17/25 10:14) ITCHING tiotropium (From SPIRIVA WITH HANDIHALER) Allergy (Intermediate, Verified 02/17/25 10:14) RAW THROAT, pharyngitis verapamil (VERAPAMIL) Allergy (Intermediate, Verified 02/17/25 10:14) IRREGULAR HEARTBEAT esomeprazole (Nexium) Allergy (Mild, Verified 02/17/25 10:14) did not resolve GERD naproxen (From ALEVE) Allergy (Mild, Verified 02/17/25 10:14) FLUSH omeprazole Allergy (Mild, Verified 02/17/25 10:14) did not resolve GERD tacrolimus Allergy (Mild, Verified 02/17/25 10:14) Rash adhesive (ADHESIVE) Allergy (Unknown, Verified 02/17/25 10:14) RASH doxycycline (DOXYCYCLINE) Allergy (Unknown, Verified 02/17/25 10:14) SEVERE NOYOLA, HEARTBURN, joint pain gabapentin (From NEURONTIN) Allergy (Unknown, Verified 02/17/25 10:14) leg swelling, SOB metoclopramide (From REGLAN) Allergy (Unknown, Verified 02/17/25 10:14) LETHARGY monosodium glutamate (MSG) Allergy (Unknown, Verified 02/17/25 10:14) HEADACHE, increased HR lifitegrast (From Xiidra) Allergy (Verified 02/17/25 10:14) blurred vision, headache, eye swelling metoprolol Adverse Reaction (Severe, Verified 02/17/25 10:14) Severe bradycardia alendronate sodium (From Fosamax) Adverse Reaction (Intermediate, Verified 02/17/25 10:14) Joint Pain amitriptyline Adverse Reaction (Intermediate, Verified 02/17/25 10:14) Agitated cyclosporine (From Cequa) Adverse Reaction (Intermediate, Verified 02/17/25 10:14) Eye Swelling fluticasone furoate (From Trelegy Ellipta) Adverse Reaction (Intermediate, V erified 02/17/25 10:14) asthma exacerbation perfluorohexyloctane (From Miebo) Adverse Reaction (Intermediate, Verified 02/17/25 10:14) Eye Swelling tobramycin (From Tobrex) Adverse Reaction (Intermediate, Verified 02/17/25 10:14) Eye Swelling umeclidinium (From Trelegy Ellipta) Adverse Reaction (Intermediate, Verified 02/17/25 10:14) asthma exacerbation vilanterol (From Trelegy Ellipta) Adverse Reaction (Intermediate, Verified 02/17/25 10:14) asthma exacerbation azelastine Adverse Reaction (Mild, Verified 02/17/25 10:14) Gastrointestinal Upset hi Adverse Reaction (Intermediate, Uncoded 02/17/25 10:14) Itchy Eyes Sulindac Adverse Reaction (Intermediate, Uncoded 02/17/25 10:14) Nausea, pain HPI HPI OV-Rt hand EMG review: Details: Adali is a 74 year old 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 woman who returns to discuss her right hand numbness. She is S/P right carpal tunnel release, DOS: 12/29/23 with good results.. She is here for a NCS review. She says she still gets numbness and tingling in the right small and ring fingers that is intermittent but daily, but she feels this is worsening. She complains of a new & worsening burning sensation in these fingers. She does find that her small finger will tend to flex on its own, and this has not improved. She says the numbness radiating from her elbow has resolved and is no longer bothersome She complains of pain which radiates from her neck, down her right arm . She also continues to have pain in the right of her hand. She thinks this is still a result of her IV needle infiltration She has been receiving trigger point injections from Dr. Oquendo in Pain Management, which she finds helpful for her overall pain She says she was seen in May by her neurosurgeon and had an MRI done of her C- spine. They ruled out a disc issue causing her numbness. She is status post a cervical fusion, that was recently found to not have fully healed. She also has recently started using a bone stimulator for this issue under the care of her neurosurgeon. She says she had some sort of debridement done on the medial aspect of her right elbow by Dr. Fry in ~2014. Hx of C4-C5 cervical fusion, DOS: 07/02/22. She says she will be losing her job next month due to budget cuts. 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 [facility] Medical History Esophageal spasm Hx of carcinoma of bladder Bladder carcinoma History of trigger finger Cervical radiculitis Chronic sinusitis GERD (gastroesophageal reflux disease) FRANCESCA (obstructive sleep apnea) CAD (coronary artery disease) History of primary hyperparathyroidism Non-toxic multinodular goiter Osteoporosis Pulmonary nodules H/O gastroesophageal reflux (GERD) HLD (hyperlipidemia) HTN (hypertension) COPD (chronic obstructive pulmonary disease) Asthma History of aneurysm Migraine Depression PTSD (post-traumatic stress disorder) History of panic attacks Anxiety Edema History of deviated nasal septum Medial epicondylitis of left elbow Fusion of spine, cervical region Surgical History History of carpal tunnel release Hx of cystoscopy H/O cervical spine surgery Hx of hand surgery Hx of right inguinal hernia repair History of hernia repair Hx of colonoscopy History of esophagogastroduodenoscopy (EGD) (01/15/24) S/P repair of paraesophageal hernia H/O decompression of ulnar nerve Status post ablation of incompetent vein using laser History of cardiac catheterization History of eyelid surgery History of appendectomy History of parathyroidectomy History of cholecystectomy Hx of cataract surgery Hx of shoulder surgery S/P cubital tunnel release S/P arthroscopic surgery of right knee History of lumpectomy of both breasts History of hysterectomy Hx of adenoidectomy Hx of tonsillectomy Hx of eye surgery Family History Father Liver cancer Psoriasis Cancer Mental health disorder Mother Cervical cancer Ovarian cancer Heart attack Substance use disorder Social History Household Members: None Caregiver staying overnight: No Housing: House Are you a primary day care teacher to a significant other at home: No Do you presently have visiting nurse or other home services: No 75 years or older and lives alone: Yes Alcohol intake: current Alcohol intake frequency: does not drink Patient Tobacco Use Status: Former Tobacco user Tobacco use type: Cigarette e-Cigarette/Vaping Use: Never Used Second Hand Smoke Exposure: No service: No Current occupational status: employed 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 Normal sensation in the ulnar nerve distribution today in clinic She had a Wartenberg sign, but now can actively bring the small finger into adduction against the ring finger No thenar or intrinsic wasting Good APB muscle belly firing and good finger cross Vascular: Cap refill brisk ROM: She can make a nice fist and extend all her digits No subluxation of extensor tendons with ROM She has a healed surgical scar medial elbow, from a debridement done by Dr. Fry, for suspected medial epicondylitis in ~2014. Right Hand MRI: Findings: No bone marrow edema. Severe joint space narrowing and osteophytosis of the 1st carpometacarpal joint, Degenerative. No subluxation or dislocation. The musculature is normal in signal and bulk. Normal vessels. No joint effusion. No ligamentous injury Extensor tendons are intact and normal in signal without tenosynovitis. Status post release of the flexor retinaculum without evidence of regrowth or scarring. No increase in size or signal of the median or ulnar nerves. No definitive thickening of the flexor tendon sheaths or tendons. No tenosynovitis. Impression: No increase in size or signal of the ulnar nerve. This document has been electronically signed by: Jocelyn Jara MD on 06/17/2024 Nerve Conduction Study: Right-side only IMPRESSION: 1. This is an abnormal study. 2. There is electrodiagnostic evidence for right ulnar neuropathy at the wrist 3. There is still mild prolongation of right median sensory latency, but overall improved compared to previous EMG and after surgery. 4. There is no electrodiagnostic evidence for brachial plexopathy or cervical radiculopathy. Fina Mcdonnell MD, EBONY 07/21/24 Old: IMPRESSION: 1. Iced-pr-tlqohzaq right ulnar neuropathy in wrist. 2. Mild right median neuropathy across carpal tunnel. Beka Frost MD 07/29/2023 Psych Appearance: grossly normal Affect: normal affect Attitude: cooperative Assessment & Plan Assessment & Plan (1) Neuropathy of right ulnar nerve at wrist: Code(s): G56.21 - Lesion of ulnar nerve, right upper limb Category: Medical (2) CAD (coronary artery disease): Code(s): I25.10 - Atherosclerotic heart disease of [place] coronary artery without angina pectoris Category: Medical Plan Assessment & Plan: 1. Right ulnar nerve compression, at the wrist -per NCS from 07/21/24 & 07/29/23 -No cyst or aneurysm seen on MRI from 06/17/24 Last visit she had developed symptoms of numbness and tingling progressing from the medial aspect of the elbow down the forearm with symptoms on both the dorsal and palmar ulnar aspect of the hand. The symptoms from her medial elbow and forearm appear to have resolved. Intermittent, but daily and worsening, numbness in the ring & small fingers 2. Right dorsal ulnar-sided hand pain Most likely ECU tendinitis I educated her about this condition I discussed treatment options I recommend surgery for the ulnar-sided hand numbness, and she is in agreement I recommend she continue with at-home exercises and activity modification I explained that this surgery is not likely to improve her symptoms of pain in the dorsal ulnar aspect of her hand, and she expressed understanding JOANNE: She has a healed surgical scar medial elbow, from a debridement done by Dr. Fry, for suspected medial epicondylitis in ~2014. The risks and benefits of operative treatment were discussed with the patient and the patient wishes to proceed with surgery. These risks include, but are not limited to risk of damage to blood vessels, nerves, tendons, infection, recurrence, incomplete relief of preoperative symptoms, persistent pain, po ssible need for further surgery and the risks associated with regional blocks and anesthesia. The plan is to take the patient to the operating room sometime in the next few weeks for the following procedures: 1. Right ulnar nerve decompression at the wrist, under general All of the preoperative paperwork including the consent was reviewed today. All the patient's questions were answered. The patient understands that they will be contacted by our lozenge dough mixer soon to schedule this procedure She denies Diabetes, blood thinners, lung, kidney issues She has asthma, CAD, and a tiny aneurysm which she manages with Aspirin. She says these are all well-managed and she saw her Animal Surgeon for a complete work-up in 07/2024, and says she is doing very well 3. Right carpal tunnel syndrome, S/P release DOS: 12/29/23 Pre-operative symptoms intermittent, but daily, worse at night Now with normal sensation, and significant improvement of overall hand pain Scribed for Marisol Cagle MD by Keyon Manzo, bacteriologist medical, on 08/24/24 at 9:45 AM, EST. Coding Level of Care Code Est Pt Level 4 (91175) Diagnoses Neuropathy of right ulnar nerve at wrist G56.21 CAD (coronary artery disease) I25.10
--- OUTSIDE RECORDS SUMMARY | 2024-08-24 09:47 | XMS_ITS | Data Portability ---
Author Organization [place] [facility], Allergy Address [address] [address] Care Team Providers Care Residential Electrician Name Role Phone BEBE VELASCO Primary Care [...] Address Organization Details Recorded Time Bilateral tinnitus [id number] 02 Active 2018 Tinnitus, bilateral ; Note: Date Diagnosed : 09/16/2018 9:36 AM (H93.13) Not Available [facility] 4 03:05:03 Sensorine ural hearing loss of bilateral ears 709004157 Active 2018 Sensorine ural hearing loss, bilateral ; Note: Date Diagnosed : 09/16/2018 9:36 AM (H90.3) Not Available [facility] 4 03:05:03 Migraine with aura 2196661 Active 2018 Migraine with aura, not intractab le, without status migrainos us; Note: Date Diagnosed : 09/16/2018 9:50 AM (G43.109) Not Available [facility] 4 03:05:05 Dizziness and giddiness 664474072 Active 2018 Dizziness and giddiness ; Note: Date Diagnosed : 09/16/2018 9:36 AM (R42) Not Available [facility] 4 03:05:03 Gastroeso phageal reflux disease without esophagit is 040040757 Active 2018 Gastro-es ophageal reflux disease without esophagit is; Note: Date Diagnosed : 09/16/2018 9:57 AM (K21.9) Not Available [facility] 4 03:05:03 Headache 68949443 Active 2018 Facial pain NOS; Note: Date Diagnosed : 09/16/2018 9:50 AM (R51) Not Available [facility] 4 03:05:02 Recurrent acute sinusitis 985211409 Active 2024 HARPREET HALEY MD [address] [place] [address], [place], [address] , [place] [facility] 5 16:29:55 Allergic rhinitis 26629197 Active 2024 HARPREET HALEY MD [address] [place] [address],[place] [address], [place], [address] , [place] [facility] 5 16:30:02 Problem Notes None recorded. Procedures Surgical History Date Name Laterality Status Provider Name and Address Organization Details Recorded Time 03/12/2024 Comp Audio with Tymps - 63767 & 05071 completed ADALI ASKEW MA, CCC-A [address] [place] [address], [phone], [facility] 03/12/2024 16:00:59 03/12/2024 NasalEndosc opy_DP completed HARPREET HALEY MD [address] [place] [address], [phone], [facility] 03/12/2024 16:29:37 Imaging Results None recorded. Procedure Notes None recorded. Medical Equipment None Reported. Allergies Allergen ID Allergen Name Allergen Category Reaction Reaction Severity Criticality Documentation Date Start Date Code Code System Note Provider Name and Address Organization Details Recorded Time 836018 tacrolimu s medicatio n Not available Not available Not available 03/12/2024 62729 RxNorm Zoraida Potvin null, [place] [facility] 15:11:51 129683 Nexletol medicatio n Not available Not available Not available 03/12/2024 81833 09 RxNorm Zoraida Potvin null, [place] [facility] 15:12:16 452985 Miebo medicatio n Not available Not available Not available 03/12/2024 84792 52 RxNorm Zoraida Potvin null, [place] [facility] 15:12:27 003248 sulindac medicatio n Not available Not available Not available 03/12/2024 69730 RxNorm Zoraida Potvin null, [place] [facility] 15:12:36 095272 Fosamax medicatio n Not available Not available Not available 03/12/2024 50514 5 RxNorm Zoraida Potvin null, [place] [facility] 15:12:46 929623 latex environme nt,medica tion Not available Not available Not available 03/12/2024 39368 91 RxNorm Zoraida Potvin null, [place] [facility] 15:13:27 967298 Dexilant medicatio n Not available Not available Not available 03/12/2024 62394 1 RxNorm Zoraida Marsh [place] abdul - [facility] 5 15:13:54 068986 doxycycli ne Not available Not available Not available Not available 03/12/2024 3640 RxNorm Zoraida Marsh franko [place] - [facility] 5 15:14:23 Medications Name Sig Start [...] Smoking Status Former Smoker HARPREET HALEY MD [address] [place] [address],[place] [address], [place], [address], [facility] - [facility] 03/12/2024 09:06:30 How Much Tobacco Do [...] SNOMED-CT Code Diagnosis ICD10 Code Diagnosis Note [id number] HARPREET HALEY MD [facility] [address] [address] 03/12/2024 14:19:20 03/12/2024 16:35:50 Sensorineural hearing loss of bilateral ears 045070832 H90.3 Audiologic al evaluation results: Right ear: Normal/ borderline normal hearing thru 1500Hz, sloping to a mild to severe SNHL with excellent word recognitio n. Left ear: Normal hearing thru 3000Hz dropping to a mild to severe SNHL with excellent word recognitio n. Tympanomet ry: Right Ear:Type A Left Ear:Type A Recurrent acute sinusitis 570240888 J01.91 Allergic rhinitis 296686 04 J30.9 Health Concerns Section Related Observation LastModified by Organization Detai ls LastModified Time None Recorded Concern Status LastModified by Organization Details LastModified Time None Recorded Advance Directives Directive None Recorded Payers Insurance Date Sequence Insurance Name Policy Number Policy Gill Covered Member ID Gill Member ID Guarantor Name 03/12/2024 1 [employer] (MEDICARE SUPPLEMENT) Adali I Houde [id number] Adali I Houde 03/12/2024 1 [place] [facility] Adali I Houde [id number] Adali I Houde 03/12/2024 1 [employer] Adali I Houde [id number] Adali I Houde 05/26/2024 1 [facility] - MEDICARE PREFERRED (MEDICARE REPLACEMENT HMO) [id number] Adali I Houde [id number] Adali I Houde 05/26/2024 1 [facility] (MEDICARE REPLACEMENT/A DVANTAGE - PPO) [id number] Adali Holman [id number] Adali Holman Notes Date Note Type Note [...] her sinus congestion symptoms HARPREET HALEY MD [address] [place] [address], [place], [address], [facility] - [facility] 03/12/2024 16:35:50 OBGyn Episode No OBEpisode recorded.
--- OUTSIDE RECORDS SUMMARY | 2024-08-24 09:48 | XMS_ITS | Clinical Summary ---
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 Gait is steady. Review [...] hand and has an appointment to see [facility] on July 14. She is welcome [...] using it. C-spine MRI done yesterday at [facility] does not show any significant central or [...] intact. X-rays of the cervical spine from [facility] dated 2024 show good position of her C4-5 and C5-C6-C7 plates but there does not appear to be robust bone growth across the disc spaces. I will discuss with Dr. Rodriguez and likely order a bone growth stimulator. Meantime, she is going to get in contact with [facility]. We talked about acupuncture and [...] 06/15/2024 3:15 PM EDT Office Visit Neurosurgery [facility] [address] [place] [address] Siria Choi PA Cervical spondylosis (Primary Dx) 06/14/2024 6:04 PM EDT - 06/14/2024 11:59 PM EDT Hospital Encounter [facility] MRI [address] [place] [id number] Cervical radiculopathy Discharge Disposition: Home or Self Care 06/09/2024 Telephone Neurosurgery [facility] [address] [facility] [address] [place] [address] Jenise Lewis MA Appointment ([employer] No auth required for C/Spine MRI faxed over to [facility]. They will contact pt w/appt. ) 06/08/2024 Telephone Neurosurgery [facility] 175 [facility] [address] [place] [address] Corrine Galvan MA from Last 3 [...] Comments Zoster Vaccines (1 of 2) 1969 Cholesterol Screening (Lipid Panel) 01/12/2022 Colorectal Cancer Screening: Colonoscopy 01/12/2022 Depression Screening 01/12/2022 Falls Risk Assessment 01/12/2022 Hepatitis C Screening 01/12/2022 Medicare Annual Wellness Visit 01/12/2022 Social Influencers of Health Screening 01/12/2022 Hypertension/CHF/CAD Annual BMP Blood Test 01/24/2022 COVID-19 Vaccine ( season) 2023 06/29/2021, 11/19/2020, 04/04/2020, Additional history exists Influenza Vaccine (#1) 2024 , 11/10/2020, 11/07/2019, Additional history exists DTaP,Tdap,and Td Vaccines (2 - Td or Tdap) 12/12/2027 12/11/2017 Osteoporosis Screening (Bone Density Screening) 02/03/2028 02/02/2018 Breast Cancer Screening Discontinued 02/02/2018 Pneumococcal Vaccine: 50+ Years Completed 10/30/2022, 11/18/2016, 10/27/2015 RSV Immunization Adult Patients Completed 11/01/2022 HIB Vaccines Aged Out No longer eligi [...] Routine 06/14/2024 7:14 PM EDT Cervical radiculopathy [facility] DEXA AXIAL SKELETON Routine 02/02/2018 9:04 [...] Signed Date: 06/15/2024 10:50 ET Workstation ID: [id number] Transcribed By: Self Edit Transcribed Date: 06/15/2024 [...] of the anterior cord. No significant spinal stenosis. Moderate right and mild left foraminal stenosis. C4-5: [...] facet abnormality. No spinal or foraminal stenosis. Procedure Note [place] [...] artifact secondary to anterior fusion hardware from Z8wransry C7. No appreciable marrow infiltrative lesion. Alignment [...] Signed Date: 06/15/2024 10:50 ET Workstation ID: [id number] Transcribed By: Self Edit Transcribed Date: 06/15/2024 08:04 ET us Siria MORAES IMG MRI PROCEDURES Final R esult * [facility] DEXA AXIAL SKELETON (02/02/2018 9:04 AM EST) Anatomical Region Laterality Modality Mammography 02/02/2018 7:11 AM EST Narrative 02/02/2018 9:04 AM EST [facility] Diagnostic Imaging Department [address] [place] [address] Patient: ADALI MANCILLA Hari /Age/Sex: 1950 - 67 - F Unit#: [id number] [facility] Ordering Physician: KATERINA TOLBERT MD [facility] Dexa Axial Skeleton - 02/02/1849 HISTORY: The patient is a 67-year-old postmenopausal female with clinical concern for metabolic bone disease. The patient is on chronic glucocorticoid therapy. FINDINGS: Dual energy x-ray absorptiometry of [...] 82% of that of age matched controls. This yields a T-score of -2.4 and a [...] since the prior examination of 01/26/2016. There has been a decrease of 1.5% in bone mineral density in the right femur and an increase of 2.8% in bone mineral density in the left femur. 2. FRAX analysis yields a 10-year probability of major osteoporotic fracture of 36.0% and a 10-year probability of hip fracture of 11.3%. Code 98982 Dictating Physician: GALINA RIVERO MD Electronically Signed by: GALINA RIVERO MD Dic Date/Time: 02/02/18901 Sign date/Time: 02/02/18903 Procedure Note Galina Rivero MD - 01/29/2022 [facility] Diagnostic Imaging Department [address] [place], [place] [address] Patient: ADALI MANCILLA/Age/Sex: 1950 - 67 - F Unit#: [id number] Location/Status: [facility]/REG CLI Mnemonic[facility] Ordering Physician: KATERINA TOLBERT MD [facility] Dexa Axial Skeleton - 02/02/18748 HISTORY: The [...] density of the femurs bilaterally is 0.707 gm/ew7wgkel is 70% of that of young normals [...] probability of hip fracture of 11.3%. Code 16242 Dictating Physician: GALINA RIVERO MD Electronically Signed by: GALINA RIVERO MD Dic Date/Time: 02/02/18901 Sign date/Time: 02/02/18903 us Katerina Tolbert MD IMG BI PROCEDURES Final Re sult * [facility] SCREENING DIGITAL (02/02/2018 8:35 AM EST) Anatomical Region Laterality Modality Mammography 02/02/2018 7:10 AM EST Narrative 02/02/2018 8:35 AM EST [facility] Diagnostic Imaging Department [address] [place] [address] Patient: LAURENTADALI I /Age/Sex: 1950 - 67 - F Unit#: [id number] Location/Status: SPDIMA/REG CLI Mnemonic/Ordering Site: [facility] Ordering Physician: JEANETTE CARRERA MD [facility] Screening Digital - 02/02/18 - 0749 INDICATION: SCREENING COMPARISON: [facility] mammograms dating back to 01/12/2013 FINDINGS: CC and MLO views of the breasts were obtained, using full field digital mammography with 3D tomosynthesis views in the MLO projection. Computer aided detection with the [employer] 7.2-H was employed. Benign bilateral breast biopsies most recently in 2000 reported. The breasts contain scattered fibroglandular tissues. Scar marker on the right overlying the central portion of the breast in the 12:00 axis. No suspicious masses, suspicious microcalcifications, or areas of architectural distortion are identified. There are no secondary signs of breast malignancy. Compared to the prior exam, no adverse interval change. IMPRESSION: No specific mammographic evidence of breast malignancy. Lack of a mammographic finding in the presence of a clinically suspicious palpable abnormality does not preclude the possibility of malignancy or alter the indications for biopsy. BI-RADS - Category 1: Negative 3341F, 7025F Annual screening mammography is recommended. Patient entered into a reminder system with a target date for the next mammogram. (B2150 / 81151) , 03208 Dictating Physician: TONI MORA MD Electronically Signed by: TONI MORA MD Dic Date/Time: 02/02/18829 Sign date/Time: 02/02/18834 Procedure Note Toni Mora MD - 01/29/2022 [facility] Diagnostic Imaging Department [address] [place], [place] [address] Patient: ADALI MANCILLA Hari /Age/Sex: 1950 67 - F Unit#: [id number] Location/Status: [facility] CLI Mnemonic/Ordering Site: [facility] Ordering Physician: JEANETTE CARRERA MD [facility] Screening Digital - 02/02/18 - 0749 INDICATION: SCREENING COMPARISON: [facility] mammograms dating back to 01/12/2013 FINDINGS: CC and MLO views of the breasts were obtained, using full field digital mammography with 3D tomosynthesis views in the MLO projection. Computeraided detection with the [employer] 7.2-H was employed. Benign bilateral breast biopsies [...] date for the next mammogram. 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
--- OUTSIDE RECORDS SUMMARY | 2024-08-24 09:48 | XMS_ITS | Patient Health Record ---
Author Organization [facility] Address [address] [place] [address] Care Team Providers Care Bottom Precipitator Operator Name Role Phone Augustine Carrera M.D. Primary Care Provider Ruth Manas Blas Unavailable [phone] Allergies Allergen (clinical drug ingredient) Drug/Non Drug Allergy documented on EMR Reaction Allergy Type Onset Date Status seasonal (uncoded) Unknown Allergy A ctive meloxicam Mobic Unknown Drug Allergy Active some food allergies (uncoded) Unknown Allergy Active Metoprolol Succinate Unknown Drug Allergy Active rofecoxib Vioxx (uncoded) Unknown Allergy Acti ve pregabalin Lyrica Unknown Drug Allergy Active Latex latex (uncoded) Unknown Allergy Acti ve lisinopril Lisinopril Unknown Drug Allergy Activ e raloxifene Evista Unknown Drug Allergy Active Penicillin Unknown Drug Allergy Active rosuvastatin Crestor Unknown Drug Allergy Acti ve formoterol / mometasone Dulera Unknown Drug Allergy Active ibandronate Boniva Unknown Drug Allergy Activ e sertraline Zoloft Unknown Drug Allergy Active baclofen Baclofen Unknown Drug Allergy Active verapamil Verapamil HCl Unknown Drug Allergy Act hai amlodipine Amlodipine Besylate Unknown Drug Allergy Active tramadol Tramadol HCl Unknown Drug Allergy Acti ve amitriptyline Amitriptyline HCl Unknown Drug Allergy Active budesonide / formoterol Symbicort Unknown Drug Allergy Active Aleve Unknown Drug Allergy Active spironolactone Spironolactone Unknown Drug Allergy Active fluticasone / salmeterol Advair Diskus Unknown Drug Allergy Active tiotropium Spiriva HandiHaler Unknown Drug Allergy Active risedronate Actonel Unknown Drug Allergy Activ e low tolerance and sensitivity to pain meds (uncoded) Unknown Allergy Active simvastatin Simvastatin Unknown Drug Allergy Act hai Substance with penicillin structure and antibacterial mechanism of action (substance) PCN based antibiotics (uncoded) Unknown Allergy Active metoclopramide Reglan Unknown Drug Allergy Ac tive Substance with beta adrenergic receptor antagonist mechanism of action (substance) BETA blockers (uncoded) Unknown Allergy Active naproxen Naproxen Unknown Drug Allergy Active Reason For Referral [...] Furosemide 10mg Acti ve Qvar 40mcg Active [place]oothe/FS Body 0.01% Active Vitamin D 2400 Activ e Losartan Potassium 25mg Active ZyrTEC 10mg Active Ventolin HFA Active Multi Vitamin/Minerals Active Artificial Tears Act hai Problems Problem Type SNOMED Code ICD Code Onset Dates Problem Status W/U Status Risk Notes Problem Irritable bowel syndrome (04811492) Irritable bowel syndrome (564.1) Active confirmed Problem Diarrhea (46677621) Diarrhea (787.91) Active confirmed Problem Generalized abdominal pain (281550146) Abdominal pain, generalized (789.07) Active confirmed Problem Constipation (10044240) Constipation (564.00) Active confirmed Problem Gastroesophageal reflux disease (775552395) GERD (gastroesophage al reflux disease) (530.81) Active confirmed Problem Epigastric pain (12532444) Abdominal discomfort, epigastric (789.06) Active confirmed Problem Gas (68187381) Gas (787.3) Active confirmed Plan Of Treatment Future Test Test Name Order Date UPPER GI ENDOSCOPY 08/15/2011 Insurance Providers Payer Name Payer Address Payer Phone Subscriber Number Group Number Insured Name Patient Relationship to Insured Coverage Start Date Coverage End Date MEDICARE OF [place] [address] [place] [address] [id number] JORGITO ALCANTARA Self - patient is the insured MEDICAID OF [facility] [address] [place] [address] [id number] JORGITO ALCANTARA Self - patient is the insured Medical (General) History Medical History History ICD Code screening colonoscopy 07-23-2006--neg. fo r polyps EGD 06-11-1999 and 02/17 negative for signi ficant esophagitis nor ulcer disease GERD hx of duodenal ulcer in the s Denies HI,DM,CVA,renal disease irregular heart beat elevated chloresterol hypertension osteoporosis Hiatal hernia Denies HI,DM,CVA,renal disease Mild asthma Anxiety Negative cardiac catheterization [...]
--- OUTSIDE RECORDS SUMMARY | 2024-08-24 09:48 | XMS_ITS | Patient Health Record ---
Author Organization [facility] Address [address] [facility] [address] [place] [address] Care Team Providers Care Sales Designer Name Role Phone BEBE VELASCO M.D Primary Care Provider LIZANDRO Bean Unavailable [phone] Allergies Allergen (clinical drug ingredient) Drug/Non Drug Allergy documented on EMR Reaction Allergy Type Onset Date Status 12 Hour Nasal [place] Unknown Drug Allergy Active risedronate Actonel Unknown [...] MG 1 tablet Orall y Once a day; Duration: 30 day(s) Active Calcium Citrate 500 MG as directed Orally Active Align - as directed Orally A ctive Ibuprofen 600 MG 1 tablet with food o r milk as needed Orally Three times a day Active Baby Aspirin 81 MG 1 tablet Orally Once a day; Duration: 30 day(s) Active Flonase Sensimist 27.5 MCG/SPRAY 1 spray in each nostril Nasally Once a day; Duration: 30 day(s) Active Flovent HFA 110 MCG/ACT 2 puffs Inhalati on Twice a day Active Yuvafem 10 MCG 1 tablet Vaginal Thr ee times a Week; Duration: 90 days 05/04/2021 Active Trelegy Ellipta 100-62.5-25 MCG/INH 1 puff Inhalation Once a day Active Montelukast Sodium 10 MG 1 tablet Orally Once a day; Duration: 30 day(s) Active Viactiv Calcium Plus D 650-12.5-40 MG-MCG as directed Orally Act hai ZyrTEC Allergy 10 MG 1 tablet Orally Onc e a day; Duration: 30 day(s) Active Gas Relief 80 MG 1 tablet after meals and at bedtime as needed Orally Four times a day Active Vitamin D 1000 UNIT 1 tablet Orally Once a day; Duration: 30 day(s) Active hydroCHLOROthiazide 12.5 MG 1 tablet in the morning Orally Once a day; Duration: 30 day(s) Active Losartan Potassium 25 MG 1 tablet Orally Once a day; Duration: 30 day(s) Active Restasis 0.05 % 1 [...] Status Risk Notes Problem Postmenopausal atrophic vaginitis (33681335) Postmenopausal atrophic vaginitis (N95.2) Active confirmed Problem Age-related osteoporosis (137715131) Age-related osteoporosis without current pathological fracture (M81.0) Active confirmed Problem Essential hypertension (34090149) Essential (primary) hypertension (I10) Active confirmed Problem Hyperlipidemia (65762991) Hyperlipidemia, unspecified (E78.5) Active confirmed Problem Uncomplicated asthma (disorder) (289076845) Unspecified asthma, uncomplicated (J45.909) Active confirmed Problem Gastro-esophageal reflux disease without esophagitis (150919460) Gastro-esophageal reflux disease without esophagitis (K21.9) Active confirmed Plan Of Treatment No Information Insurance Providers Payer Name Payer Address Payer Phone Subscriber Number Group Number Insured Name Patient Relationship to Insured Coverage Start Date Coverage End Date MEDICARE [address] [facility] [place] [id number] LAURENT JORGITO Self - patient is the insured Medical [...] w 05/27/14 Venous Ablation - Right Leg 03/15/15 Venous Abation - Left Leg 05/17/15 Venous [...]
== END 2024-08-24 10:11 | disposition home or self-care (01) ==
LOC: HO.HOS 09:20
PROVIDERS: PCP Nurse Practitioner Family; Visit Provider Orthopaedic Surgery
DX: G56.21 Lesion of ulnar nerve, right upper limb (principal); I25.10 Atherosclerotic heart disease of native coronary artery without angina pectoris
CPT/HCPCS: 99214

== ENCOUNTER → 2024-08-24 09:18 | Outpatient (BNVA) | payer MEDICARE, SELFPAY | PROVIDERS: PCP Nurse Practitioner Family; Visit Provider Orthopaedic Surgery | DX: R20.0 Anesthesia of skin (principal); R20.2 Paresthesia of skin; G56.21 Lesion of ulnar nerve, right upper limb; I25.10 Atherosclerotic heart disease of native coronary artery without angina pectoris; M79.641 Pain in right hand | CPT/HCPCS: 99212 ==

== ENCOUNTER 2024-08-25 06:00 | Outpatient (REF) | payer MEDICARE, SELFPAY ==
--- OUTSIDE RECORDS SUMMARY | 2024-08-25 07:15 | XMS_ITS | Patient Health Record ---
Author Organization [facility] Address [address] [place] [address] Care Team Providers Care Sustainability Coordinator Name Role Phone Augustine Carrera M.D. Primary Care Provider Ruth Manas Blas Unavailable [phone] Allergies Allergen (clinical drug ingredient) Drug/Non Drug [...] Furosemide 10mg Acti ve Qvar 40mcg Active [place] Ii-Smoothe/FS Body 0.01% Active Vitamin D 2400 Activ e Losartan Potassium 25mg Active ZyrTEC 10mg Active Ventolin HFA Active Multi Vitamin/Minerals Active Artificial Tears Act hai Problems Problem Type SNOMED Code ICD Code Onset Dates Problem Status W/U Status Risk Notes Problem Irritable bowel syndrome (92471850) Irritable bowel syndrome (564.1) Active confirmed Problem Diarrhea (68625173) Diarrhea (787.91) Active confirmed Problem Generalized abdominal pain (395840501) Abdominal pain, generalized (789.07) Active confirmed Problem Constipation (46957158) Constipation (564.00) Active confirmed Problem Gastroesophageal reflux disease (556099914) GERD (gastroesophage al reflux disease) (530.81) Active confirmed Problem Epigastric pain (47397862) Abdominal discomfort, epigastric (789.06) Active confirmed Problem Gas (47043400) Gas (787.3) Active confirmed Plan Of Treatment Future Test Test Name Order Date UPPER GI ENDOSCOPY 08/15/2011 Insurance Providers Payer Name Payer Address Payer Phone Subscriber Number Group Number Insured Name Patient Relationship to Insured Coverage Start Date Coverage End Date MEDICARE OF [place] [address] [place] [address] [id number] JORGITO ALCANTARA Self - patient is the insured MEDICAID OF [facility] [address] [place] [address] [id number] JORGITO ALCANTARA Self - patient is the insured Medical (General) History Medical History History ICD Code screening colonoscopy 07-23-2006--neg. fo r polyps EGD 06-11-1999 and 02/17 negative for signi ficant esophagitis nor ulcer disease GERD hx of duodenal ulcer in the s Denies DE,DM,CVA,renal disease irregular heart beat elevated chloresterol hypertension osteoporosis Hiatal hernia Denies DE,DM,CVA,renal disease Mild asthma Anxiety Negative cardiac catheterization [...]
--- OUTSIDE RECORDS SUMMARY | 2024-08-25 07:16 | XMS_ITS | Patient Health Record ---
Author Organization [facility] Address [address] [place] [address] Care Team Providers Care Building Construction Ironworker Name Role Phone BEBE VELASCO M.D Primary Care Provider LIZANDRO Bean Unavailable [phone] Allergies Allergen (clinical drug ingredient) Drug/Non Drug Allergy documented on EMR Reaction Allergy Type Onset Date Status 12 Hour Nasal [place] Unknown Drug Allergy Active risedronate Actonel Unknown [...] Status Risk Notes Problem Postmenopausal atrophic vaginitis (45934733) Postmenopausal atrophic vaginitis (N95.2) Active confirmed Problem Age-related osteoporosis (870358522) Age-related osteoporosis without current pathological fracture (M81.0) Active confirmed Problem Essential hypertension (26408665) Essential (primary) hypertension (I10) Active confirmed Problem Hyperlipidemia (78394850) Hyperlipidemia, unspecified (E78.5) Active confirmed Problem Uncomplicated asthma (disorder) (215939985) Unspecified asthma, uncomplicated (J45.909) Active confirmed Problem Gastro-esophageal reflux disease without esophagitis (929390530) Gastro-esophageal reflux disease without esophagitis (K21.9) Active confirmed Plan Of Treatment No Information Insurance Providers Payer Name Payer Address Payer Phone Subscriber Number Group Number Insured Name Patient Relationship to Insured Coverage Start Date Coverage End Date MEDICARE [address] [facility] [place] [id number] LAURENT JORGITO Self - patient is the [...]
--- OUTSIDE RECORDS SUMMARY | 2024-08-25 07:16 | XMS_ITS | Clinical Summary ---
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 Gait is steady. Review [...] hand and has an appointment to see [place] [facility] on July 14. She is welcome [...] using it. C-spine MRI done yesterday at [facility] does not show any significant [...] intact. X-rays of the cervical spine from [facility] dated 2024 show good position of her C4-5 and C5-C6-C7 plates but there does not appear to be robust bone growth across the disc spaces. I will discuss with Dr. Rodriguez and likely order a bone growth stimulator. Meantime, she is going to get in contact with [place] [facility]. We talked about acupuncture and [...] 06/15/2024 3:15 PM EDT Office Visit Neurosurgery [facility] [address] [place] [address] Siria Choi PA Cervical spondylosis (Primary Dx) 06/14/2024 6:04 PM EDT - 06/14/2024 11:59 PM EDT Hospital Encounter [facility] [address] [place] [id number] Cervical radiculopathy Discharge Disposition: Home or Self Care 06/09/2024 Telephone Neurosurgery [facility] [address] [place] [phone] Jenise Lewis MA Appointment ([employer] No auth required for C/Spine MRI faxed over to [facility]. They will contact pt w/appt. ) 06/08/2024 Telephone Neurosurgery [facility] [address] [facility] [address] [place] [address] Corrine Galvan MA from Last [...] Signed Date: 06/15/2024 10:50 ET Workstation ID: [id number] Transcribed By: Self Edit Transcribed Date: 06/15/2024 [...] artifact secondary to anterior fusion hardware from [employer] C7. No appreciable marrow infiltrative lesion. Alignment [...] Signed Date: 06/15/2024 10:50 ET Workstation ID: [id number] Transcribed By: Self Edit Transcribed Date: 06/15/2024 08:04 ET us Siria MORAES IMG MRI PROCEDURES Final R esult * [facility] DEXA AXIAL SKELETON (02/02/2018 9:04 AM EST) Anatomical Region Laterality Modality Mammography 02/02/2018 7:11 AM EST Narrative 02/02/2018 9:04 AM EST [facility] Diagnostic Imaging Department [address] [place] [address] Patient: ADALI MANCILLA Hari /Age/Sex: 1950 - 67 - F Unit#: [id number] [facility] Order[facility] Physician: KATERINA TOLBERT MD [facility] Dexa [...] probability of hip fracture of 11.3%. Code 81714 Dictating Physician: GALINA RIVERO MD Electronically Signed by: GALINA RIVERO MD Dic Date/Time: 02/02/18901 Sign date/Time: 02/02/18903 Procedure Note Galina Rivero MD - 01/29/2022 [facility] Diagnostic Imaging Department [address] [place], [place] [address] Patient: ADALI MANCILLA/Age/Sex: 1950 - 67 - F Unit#: [id number] Location/Status: [facility]/REG CLI Mnemonic[facility] Ordering Physician: KATERINA TOLBERT MD [...] density of the femurs bilaterally is 0.707 gm/kr4tblrm is 70% of that of young normals [...] probability of hip fracture of 11.3%. Code 90345 Dictating Physician: GALINA RIVERO MD Electronically Signed by: GALINA RIVERO MD Dic Date/Time: 02/02/18901 Sign date/Time: 02/02/18903 us Katerina Tolbert MD IMG BI PROCEDURES Final Re sult * [facility] SCREENING DIGITAL (02/02/2018 8:35 AM EST) Anatomical Region Laterality Modality Mammography 02/02/2018 7:10 AM EST Narrative 02/02/2018 8:35 AM EST [facility] Diagnostic Imaging Department [address] [place] [address] Patient: LAURENTADALI I /Age/Sex: 1950 - 67 - F Unit#: [id number] Location/Status: SPDIMA/REG CLI Mnemonic/Ordering Site: [facility] Ordering Physician: JEANETTE CARRERA MD [facility] Screening Digital - 02/02/18 - 0749 INDICATION: SCREENING COMPARISON: [facility] mammograms dating back to 01/12/2013 FINDINGS: CC and MLO views of the breasts were obtained, using full field digital mammography with 3D tomosynthesis views in the MLO projection. Computer aided detection with the [place] 7.2-H was employed. Benign bilateral breast biopsies [...] a target date for the next mammogram. ([id number] / [id number]) , 62837 Dictating Physician: TONI MORA MD Electronically Signed by: TONI MORA MD Dic Date/Time: 02/02/18829 Sign date/Time: 02/02/18834 Procedure Note Toni Mora MD - 01/29/2022 [facility] Diagnostic Imaging Department [address] [place], [place] [address] Patient: ADALI MANCILLA Hari /Age/Sex: 1950 67 - F Unit#: [id number] Location/Status: [facility] CLI Mnemonic/Ordering Site: [facility] Ordering Physician: JEANETTE CARRERA MD [facility] Screening Digital - 02/02/18 - 0749 INDICATION: SCREENING COMPARISON: [facility] mammograms dating back to 01/12/2013 FINDINGS: [...] date for the next mammogram. 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
[2024-08-25 12:08] LABS: Creatinine, mg/dL 40.30
[2024-08-25 12:38] LABS: Total Volume 24 Hour Urine 1850 mL
[2024-08-27 18:39] LABS: Calcium/Creatinine Ratio 40 mg/g creat (30-275); Creatinine 24Hr Urine 0.80 g/24 h (0.50-2.15)
== END 2024-08-25 06:01 | disposition home or self-care (01) ==
LOC: HO.HMGCLNP 06:00
PROVIDERS: PCP Nurse Practitioner Family; Visit Provider Internal Medicine Endocrinology, Diabetes & Metabolism
DX: M81.0 Age-related osteoporosis without current pathological fracture (principal)
CPT/HCPCS: 82340; 82570

== ENCOUNTER 2024-08-31 11:20 | Outpatient (AMB) | payer MEDICARE, SELFPAY ==
--- OUTSIDE RECORDS SUMMARY | 2024-08-31 12:37 | XMS_ITS | Data Portability ---
Author Organization [place] [facility], [facility] Address [address] [address] Care Team Providers Care Coremaker Floor Name Role Phone BEBE VELASCO Primary Care [...] Address Organization Details Recorded Time Bilateral tinnitus 06920530341 02 Active 2018 Tinnitus, bilateral ; Note: Date Diagnosed : 09/16/2018 9:36 AM (H93.13) Not Available [facility] 4 03:05:03 Sensorine ural hearing loss of bilateral ears 768666568 Active 2018 Sensorine ural hearing loss, bilateral ; Note: Date Diagnosed : 09/16/2018 9:36 AM (H90.3) Not Available [facility] 4 03:05:03 Migraine with aura 3675750 Active 2018 Migraine with aura, not intractab le, without status migrainos us; Note: Date Diagnosed : 09/16/2018 9:50 AM (G43.109) Not Available [facility] 4 03:05:05 Dizziness and giddiness 262617816 Active 2018 Dizziness and giddiness ; Note: Date Diagnosed : 09/16/2018 9:36 AM (R42) Not Available [facility] 4 03:05:03 Gastroeso phageal reflux disease without esophagit is 031892000 Active 2018 Gastro-es ophageal reflux disease without esophagit is; Note: Date Diagnosed : 09/16/2018 9:57 AM (K21.9) Not Available [facility] 4 03:05:03 Headache 43927542 Active 2018 Facial pain NOS; Note: Date Diagnosed : 09/16/2018 9:50 AM (R51) Not Available [facility] 4 03:05:02 Recurrent acute sinusitis 629862979 Active 2024 HARPREET HALEY MD [address] [place] [address], [place], [phone] , [place] - [facility] 5 16:29:55 Allergic rhinitis 86709016 Active 2024 HARPREET HALEY MD [address] [place] [address],[place] [address], [place], [address] , [place] - [facility] 5 16:30:02 Problem Notes None recorded. Procedures Surgical History Date Name Laterality Status Provider Name and Address Organization Details Recorded Time 03/12/2024 Comp Audio with Tymps - 74835 & 37774 completed ADALI ASKEW MA, CCC-A [address] [place] [address], [phone], [facility] 03/12/2024 16:00:59 03/12/2024 NasalEndosc opy_DP completed HARPREET HALEY MD [address] [place] [address], [phone], [facility] 03/12/2024 16:29:37 Imaging Results None recorded. Procedure Notes None recorded. Medical Equipment None Reported. Allergies Allergen ID Allergen Name Allergen Category Reaction Reaction Severity Criticality Documentation Date Start Date Code Code System Note Provider Name and Address Organization Details Recorded Time 672380 tacrolimu s medicatio n Not available Not available Not available 03/12/2024 94192 RxNorm Zoraida Potvin null, [place] [facility] 15:11:51 943425 Nexletol medicatio n Not available Not available Not available 03/12/2024 57668 09 RxNorm Zoraida Potvin null, [place] [facility] 15:12:16 494682 Miebo medicatio n Not available Not available Not available 03/12/2024 80709 52 RxNorm Zoraida Potvin null, [place] [facility] 15:12:27 195360 sulindac medicatio n Not available Not available Not available 03/12/2024 16783 RxNorm Zoraida Potvin null, [place] - [facility] 15:12:36 959514 Fosamax medicatio n Not available Not available Not available 03/12/2024 01013 5 RxNorm Zoraida Potvin null, [place] - [facility] 15:12:46 995899 latex environme nt,medica tion Not available Not available Not available 03/12/2024 85858 91 RxNorm Zoraida Potvin null, [place] [facility] 15:13:27 626734 Dexilant medicatio n Not available Not available Not available 03/12/2024 18680 1 RxNorm Zoraida Marsh [place] abdul - [facility] 5 15:13:54 643156 doxycycli ne Not available Not available Not available Not available 03/12/2024 3640 RxNorm Zoraida Marsh franko [place] - [facility] 5 15:14:23 Medications Name Sig Start Date [...] Smoking Status Former Smoker HARPREET HALEY MD [address] [place] [address],[place] [address], [place], [phone], [facility] - [facility] 03/12/2024 09:06:30 How Much Tobacco [...] Disorder N Anesthesia Complications N Heart Attack ([place]) N Other Skin Condition N Diabetes N [...] SNOMED-CT Code Diagnosis ICD10 Code Diagnosis Note [id number] HARPREET HALEY MD [facility] [address] [address] 03/12/2024 14:19:20 03/12/2024 16:35:50 Sensorineural hearing loss of bilateral ears 766011432 H90.3 Audiologic al evaluation results: Right ear: Normal/ borderline normal hearing thru 1500Hz, sloping to a mild to severe SNHL with excellent word recognitio n. Left ear: Normal hearing thru 3000Hz dropping to a mild to severe SNHL with excellent word recognitio n. Tympanomet ry: Right Ear:Type A Left Ear:Type A Recurrent acute sinusitis 121035645 J01.91 Allergic rhinitis 242617 04 J30.9 Health Concerns Section Related Observation LastModified by Organization Detai ls LastModified Time None Recorded Concern Status LastModified by Organization Details LastModified Time None Recorded Advance Directives Directive None Recorded Payers Insurance Date Sequence Insurance Name Policy Number Policy Gill Covered Member ID Gill Member ID Guarantor Name 03/12/2024 1 [employer] (MEDICARE SUPPLEMENT) Adali I Houde [id number] Adali I Houde 03/12/2024 1 [place] [facility] Adali I Houde [id number] Adali I Houde 03/12/2024 1 [employer] Adali I Houde [id number] Adali I Houde 05/26/2024 1 [facility] - MEDICARE PREFERRED (MEDICARE REPLACEMENT HMO) [id number] Adali I Houde [id number] Adali I Houde 05/26/2024 1 [facility] (MEDICARE REPLACEMENT/A DVANTAGE - PPO) [id number] Adali Holman [id number] Adali Holman Notes Date Note Type Note [...] her sinus congestion symptoms HARPREET HALEY MD [address] [place] [address], [place], [address], [facility] - [facility] 03/12/2024 16:35:50 OBGyn Episode No OBEpisode recorded.
--- OUTSIDE RECORDS SUMMARY | 2024-08-31 12:37 | XMS_ITS | Patient Health Record ---
Author Organization [facility] Address [address] [place] [address] Care Team Providers Care Stock Control Supervisor Name Role Phone BEBE VELASCO M.D Primary Care Provider LIZANDRO Bean Unavailable [phone] Allergies Allergen (clinical drug ingredient) Drug/Non Drug Allergy documented on EMR Reaction Allergy Type Onset Date Status 12 Hour Nasal [place] Unknown Drug Allergy Active risedronate Actonel Unknown [...] Status Risk Notes Problem Postmenopausal atrophic vaginitis (00065004) Postmenopausal atrophic vaginitis (N95.2) Active confirmed Problem Age-related osteoporosis (070884950) Age-related osteoporosis without current pathological fracture (M81.0) Active confirmed Problem Essential hypertension (35440107) Essential (primary) hypertension (I10) Active confirmed Problem Hyperlipidemia, unspecified (E78.5) Active confirmed Problem Uncomplicated asthma (disorder) (732428338) Unspecified asthma, uncomplicated (J45.909) Active confirmed Problem Gastro-esophageal reflux disease without esophagitis (753696987) Gastro-esophageal reflux disease without esophagitis (K21.9) Active confirmed Plan Of Treatment No Information Insurance Providers Payer Name Payer Address Payer Phone Subscriber Number Group Number Insured Name Patient Relationship to Insured Coverage Start Date Coverage End Date MEDICARE [address] [facility] [id number] JORGITO MANCILLA Self - patient is the [...]
--- OUTSIDE RECORDS SUMMARY | 2024-08-31 12:37 | XMS_ITS | Clinical Summary ---
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 Gait is steady. Review [...] hand and has an appointment to see [facility] on July 14. She is welcome [...] using it. C-spine MRI done yesterday at [facility] does not show any significant central or [...] intact. X-rays of the cervical spine from [facility] dated 2024 show good position of her C4-5 and C5-C6-C7 plates but there does not appear to be robust bone growth across the disc spaces. I will discuss with Dr. Rodriguez and likely order a bone growth stimulator. Meantime, she is going to get in contact with [facility]. We talked about acupuncture and [...] 06/15/2024 3:15 PM EDT Office Visit Neurosurgery [facility] [address] [place] [address] Siria Choi PA Cervical spondylosis (Primary Dx) 06/14/2024 6:04 PM EDT - 06/14/2024 11:59 PM EDT Hospital Encounter [facility] [address] [place] [id number] Cervical radiculopathy Discharge Disposition: Home or Self Care 06/09/2024 Telephone Neurosurgery [facility] [address] [facility] [address] [place] [phone] Jenise Lewis MA Appointment ([employer] No auth required for C/Spine MRI faxed over to [facility]. They will contact pt w/appt. ) 06/08/2024 Telephone Neurosurgery [facility] [address] [facility] [address] [place] [address] Corrine Galvan MA from Last [...] Panel) 01/12/2022 Colorectal Cancer Screening: Colonoscopy 01/12/2022 Falls Risk Assessment 01/12/2022 Hepatitis C Screening 01/12/2022 Medicare Annual Wellness Visit 01/12/2022 Social Influencers of Health Screening 01/12/2022 Hypertension/CHF/CAD Annual BMP Blood Test 01/24/2022 COVID-19 Vaccine ( season) 2023 06/29/2021, 11/19/2020, 04/04/2020, Additional history exists Depression Screening 02/11/2024 Influenza Vaccine (#1) 2024 , 11/10/2020, 11/07/2019, [...] Signed Date: 06/15/2024 10:50 ET Workstation ID: [id number] Transcribed By: Self Edit Transcribed Date: 06/15/2024 [...] artifact secondary to anterior fusion hardware from [id number] C7. No appreciable marrow infiltrative lesion. Alignment [...] Signed Date: 06/15/2024 10:50 ET Workstation ID: [id number] Transcribed By: Self Edit Transcribed Date: 06/15/2024 08:04 ET us Siria MORAES IMG MRI PROCEDURES Final R esult * [facility] DEXA AXIAL SKELETON (02/02/2018 9:04 AM EST) Anatomical Region Laterality Modality Mammography 02/02/2018 7:11 AM EST Narrative 02/02/2018 9:04 AM EST [facility] Diagnostic Imaging Department [address] [place] [address] Patient: ADALI MANCILLA Hari /Age/Sex: 1950 - 67 - F Unit#: [id number] [facility] Ordering Physician: KATERINA TOLBERT MD [facility] Dexa [...] probability of hip fracture of 11.3%. Code 48212 Dictating Physician: GALINA RIVERO MD Electronically Signed by: GALINA RIVERO MD Dic Date/Time: 02/02/18901 Sign date/Time: 02/02/18903 Procedure Note Galina Rivero MD - 01/29/2022 [facility] Diagnostic Imaging Department [address] [place], [place] [id number] Patient: ADALI MANCILLA/Age/Sex: 1950 - 67 - F Unit#: [id number] Location/Status: [facility]/REG CLI Mnemonic[facility] Ordering Physician: KATERINA TOLBERT MD [facility] Dexa [...] density of the femurs bilaterally is 0.707 gm/zb7qwoas is 70% of that of young normals [...] probability of hip fracture of 11.3%. Code 95623 Dictating Physician: GALINA RIVERO MD Electronically Signed by: GALINA RIVERO MD Dic Date/Time: 02/02/18901 Sign date/Time: 02/02/18903 us Katerina Tolbert MD IMG BI PROCEDURES Final Re sult * [facility] SCREENING DIGITAL (02/02/2018 8:35 AM EST) Anatomical Region Laterality Modality Mammography 02/02/2018 7:10 AM EST Narrative 02/02/2018 8:35 AM EST [facility] Diagnostic Imaging Department [address] [place] [address] Patient: LAURENTADALI I /Age/Sex: 1950 - 67 - F Unit#: [id number] Location/Status: [facility]/REG CLI Mnemonic/Ordering Site: [facility] Ordering Physician: JEANETTE CARRERA MD [facility] Screening Digital - 02/02/18 - 0749 INDICATION: SCREENING COMPARISON: [facility] mammograms dating back to 01/12/2013 FINDINGS: CC and MLO views of the breasts were obtained, using full field digital mammography with 3D tomosynthesis views in the MLO projection. Computer aided detection with the CausePlay 7.2-H was employed. Benign bilateral breast biopsies [...] a target date for the next mammogram. ([id number] / [id number]) , [id number] Dictating Physician: TONI MORA MD Electronically Signed by: TONI MORA MD Dic Date/Time: 02/02/18829 Sign date/Time: 02/02/18834 Procedure Note Toni Mora MD - 01/29/2022 [facility] Diagnostic Imaging Department [address] [place], [place] [id number] Patient: ADALI MANCILLA Hari /Age/Sex: 1950 67 - F Unit#: [id number] Location/Status: [facility] CLI Mnemonic/Ordering Site: [facility] Ordering Physician: JEANETTE CARRERA MD [facility] Screening [...] date for the next mammogram. 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
--- OUTSIDE RECORDS SUMMARY | 2024-08-31 12:37 | XMS_ITS | Patient Health Record ---
Author Organization [facility] Address [address] [place] [address] Care Team Providers Care Test Deskman Name Role Phone Augustine Carrera M.D. Primary Care Provider Ruth Manas Blas Unavailable [phone] Allergies Allergen (clinical drug ingredient) Drug/Non Drug [...] Furosemide 10mg Acti ve Qvar 40mcg Active [place]/FS Body 0.01% Active Vitamin D 2400 Activ e Losartan Potassium 25mg Active ZyrTEC 10mg Active Ventolin HFA Active Multi Vitamin/Minerals Active Artificial Tears Act hai Problems Problem Type SNOMED Code ICD Code Onset Dates Problem Status W/U Status Risk Notes Problem Irritable bowel syndrome (33106161) Irritable bowel syndrome (564.1) Active confirmed Problem Diarrhea (57223738) Diarrhea (787.91) Active confirmed Problem Generalized abdominal pain (637993512) Abdominal pain, generalized (789.07) Active confirmed Problem Constipation (00402987) Constipation (564.00) Active confirmed Problem Gastroesophageal reflux disease (612252960) GERD (gastroesophage al reflux disease) (530.81) Active confirmed Problem Epigastric pain (96007497) Abdominal discomfort, epigastric (789.06) Active confirmed Problem Gas (22202762) Gas (787.3) Active confirmed Plan Of Treatment Future Test Test Name Order Date UPPER GI ENDOSCOPY 08/15/2011 Insurance Providers Payer Name Payer Address Payer Phone Subscriber Number Group Number Insured Name Patient Relationship to Insured Coverage Start Date Coverage End Date MEDICARE OF [place] [address] [place] [address] [id number] JORGITO ALCANTARA Self - patient is the insured MEDICAID OF [facility] [address] [place] [address] [id number] JORGITO ALCANTARA Self - patient is the insured Medical (General) History Medical History History ICD Code screening colonoscopy 07-23-2006--neg. fo r polyps EGD 06-11-1999 and 02/17 negative for signi ficant esophagitis nor ulcer disease GERD hx of duodenal ulcer in the s Denies NH,DM,CVA,renal disease irregular heart beat elevated chloresterol hypertension osteoporosis Hiatal hernia Denies NH,DM,CVA,renal disease Mild asthma Anxiety Negative cardiac catheterization [...]
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
== END 2024-08-31 11:40 | disposition home or self-care (01) ==
LOC: HO.HOP 11:20
PROVIDERS: PCP Nurse Practitioner Family; Visit Provider Clinical Nurse Specialist Psychiatric/Mental Health
DX: F43.12 Post-traumatic stress disorder, chronic (principal); F41.0 Panic disorder [episodic paroxysmal anxiety]
CPT/HCPCS: 90833; 99213

== ENCOUNTER 2024-09-06 09:07 | Outpatient (AMB) | payer MEDICARE, SELFPAY ==
--- NOTE | 2024-09-06 09:33 | A.OFFVIS_ITS ---
Vital Signs 09/06/24 09:35 Height 4 ft 11 in Weight 159 lb BMI 32.1 BP 147/74 H Blood Pressure Location Lt brachial Position Sitting Respiration 16 Pulse 79 Pulse Source Pulse Oximeter Pulse Oximetry (%) 97 Oxygen Delivery Method Room Air Intake Visit Reasons: 6weeks trigger point inj Manager Social Work Required: No Iron Plastic Bullet Maker: Iron Plastic Bullet Maker Present Accompanied by: Cisco T Allergies dexlansoprazole (From DEXILANT) Allergy (Severe, Verified 09/06/24 09:37) dizziness, change in HR risedronate sodium (From ACTONEL) Allergy (Severe, Verified 09/06/24 09:37) chest discomfort Aeiqjgl-HCI-FoX Reductase Inhibitor (BCYSXHB-RGK-DFY REDUCTASE INHIBITOR) Allergy (Severe, Verified 09/06/24 09:37) JOINT PAIN tramadol (TRAMADOL) Allergy (Severe, Verified 09/06/24 09:37) THROAT TIGHTNESS amlodipine (AMLODIPINE) Allergy (Intermediate, Verified 09/06/24 09:37) PALIPITATIONS Atrovent Allergy (Intermediate, Verified 09/06/24 09:37) Cough baclofen (BACLOFEN) Allergy (Intermediate, Verified 09/06/24 09:37) LETHARGY Beta-Blockers (Beta-Adrenergic Bloc Allergy (Intermediate, Verified 09/06/24 09:37) BRADYCARDIA budesonide (From SYMBICORT) Allergy (Intermediate, Verified 09/06/24 09:37) HOARSENESS Chocolate Allergy (Intermediate, Verified 09/06/24 09:37) GERD ezetimibe (From ZETIA) Allergy (Intermediate, Verified 09/06/24 09:37) JOINT PAIN, ELEVATED CPK fluticasone (From ADVAIR DISKUS) Allergy (Intermediate, Verified 09/06/24 09:37) HTN glucosamine Allergy (Intermediate, Verified 09/06/24 09:37) LE edema ibandronate sodium (From BONIVA) Allergy (Intermediate, Verified 09/06/24 09:37) CHEST PAIN latex (LATEX) Allergy (Intermediate, Verified 09/06/24 09:37) RASH-SENSITIVITY lisinopril (LISINOPRIL) Allergy (Intermediate, Verified 09/06/24 09:37) COUGH, really bad cough meloxicam (From MOBIC) Allergy (Intermediate, Verified 09/06/24 09:37) GI UPSET mometasone furoate (From DULERA) Allergy (Intermediate, Verified 09/06/24 09:37) COUGH niacin Allergy (Intermediate, Verified 09/06/24 09:37) Flushing Penicillins (PENICILLINS) Allergy (Intermediate, Verified 09/06/24 09:37) RASH pregabalin (From LYRICA) Allergy (Intermediate, Verified 09/06/24 09:37) GERD flare up raloxifene (From EVISTA) Allergy (Intermediate, Verified 09/06/24 09:37) GERD rofecoxib (From Vioxx) Allergy (Intermediate, Verified 09/06/24 09:37) ankle swelling salmeterol (From ADVAIR DISKUS) Allergy (Intermediate, Verified 09/06/24 09:37) HTN scallops (SCALLOPS) Allergy (Intermediate, Verified 09/06/24 09:37) NAUSEA & VOMITING sertraline (From ZOLOFT) Allergy (Intermediate, Verified 09/06/24 09:37) SKIN CRAWLING spironolactone (SPIRONOLACTONE) Allergy (Intermediate, Verified 09/06/24 09:37) RASH, ?? psoriasis strawberry (STRAWBERRY) Allergy (Intermediate, Verified 09/06/24 09:37) ITCHING tiotropium (From SPIRIVA WITH HANDIHALER) Allergy (Intermediate, Verified 09/06/24 09:37) RAW THROAT, pharyngitis verapamil (VERAPAMIL) Allergy (Intermediate, Verified 09/06/24 09:37) IRREGULAR HEARTBEAT esomeprazole (Nexium) Allergy (Mild, Verified 09/06/24 09:37) did not resolve GERD naproxen (From ALEVE) Allergy (Mild, Verified 09/06/24 09:37) FLUSH omeprazole Allergy (Mild, Verified 09/06/24 09:37) did not resolve GERD tacrolimus Allergy (Mild, Verified 09/06/24 09:37) Rash adhesive (ADHESIVE) Allergy (Unknown, Verified 09/06/24 09:37) RASH doxycycline (DOXYCYCLINE) Allergy (Unknown, Verified 09/06/24 09:37) SEVERE NOYOLA, HEARTBURN, joint pain gabapentin (From NEURONTIN) Allergy (Unknown, Verified 09/06/24 09:37) leg swelling, SOB metoclopramide (From REGLAN) Allergy (Unknown, Verified 09/06/24 09:37) LETHARGY monosodium glutamate (MSG) Allergy (Unknown, Verified 09/06/24 09:37) HEADACHE, increased HR lifitegrast (From Xiidra) Allergy (Verified 09/06/24 09:37) blurred vision, headache, eye swelling metoprolol Adverse Reaction (Severe, Verified 09/06/24 09:37) Severe bradycardia alendronate sodium (From Fosamax) Adverse Reaction (Intermediate, Verified 09/06/24 09:37) Joint Pain amitriptyline Adverse Reaction (Intermediate, Verified 09/06/24 09:37) Agitated cyclosporine (From Cequa) Adverse Reaction (Intermediate, Verified 09/06/24 09:37) Eye Swelling fluticasone furoate (From Trelegy Ellipta) Adverse Reaction (Intermediate, Verified 09/06/24 09:37) asthma exacerbation perfluorohexyloctane (From Miebo) Adverse Reaction (Intermediate, Verified 09/06/24 09:37) Eye Swelling tobramycin (From Tobrex) Adverse Reaction (Intermediate, Verified 09/06/24 09:37) Eye Swelling umeclidinium (From Trelegy Ellipta) Adverse Reaction (Intermediate, Verified 09/06/24 09:37) asthma exacerbation vilanterol (From Trelegy Ellipta) Adverse Reaction (Intermediate, Verified 09/06/24 09:37) asthma exacerbation azelastine Adverse Reaction (Mild, Verified 09/06/24 09:37) Gastrointestinal Upset hi Adverse Reaction (Intermediate, Uncoded 09/06/24 09:37) Itchy Eyes Sulindac Adverse Reaction (Intermediate, Uncoded 09/06/24 09:37) Nausea, pain Medication List - Last Reconciled 09/06/24 by Jackie Pryor LPN acetaminophen ER (Tylenol Arthritis Pain) 650 mg PO Q12H aspirin (Adult Aspirin Regimen) 81 mg PO DAILY beclomethasone dipropionate 80 mcg/actuation (Qvar RediHaler) 1 inh inhalation BID 30 days Bifidobacterium infantis (Align (B.infantis)) 4 mg PO DAILY cetirizine (Zyrtec) 10 mg PO DAILY PRN cholecalciferol (vitamin D3) 25 mcg PO DAILY 30 days cyclosporine 0.05% (Restasis) 1 drp ophthalmic (eye) Q12H denosumab (Prolia) 60 mg subcut [id number] dextran 70-hypromellose (PF) 0.1-0.3 % (Artificial Tears (PF)) 1 drp ophthalmic (eye) BEDTIME docusate sodium (Colace) 100 mg PO BID flunisolide 2 sprays intranasal BID PRN levalbuterol tartrate 45 mcg/actuation 2 puffs inhalation Q4H PRN lorazepam (Ativan) 0.5 mg PO BID PRN losartan-hydrochlorothiazide 50-12.5 mg 1 tab PO DAILY magnesium oxide 500 mg PO DAILY montelukast 10 mg PO DAILY 90 days pantoprazole 40 mg PO BID Repatha SureClick (evolocumab) 140 mg subcut Q2W NS sucralfate 1 g PO BID 90 days HPI HPI 6weeks trigger point inj: Details: History of Present Illness The patient is a 74-year-old female presenting with chronic pain management concerns. She reports a history of Complex Regional Pain Syndrome (CRPS) characterized by throbbing, burning, swelling, and sensitivity to touch in the right dorsal hand. The symptoms are exacerbated by cold temperatures and have been persistent since an injury involving a misplaced IV cannula, which resulted in a hematoma. The patient also experiences extensor carpi ulnaris tendinitis, contributing to pain and functional limitations in the right hand. Additionally, there is a history of ulnar nerve compression causing swelling and discomfort, with plans for surgical intervention being reconsidered. Pain Description - Onset: Persistent since an injury involving a misplaced IV cannula - Quality: Throbbing, burning, swelling, and sensitivity to touch - Location: Right dorsal hand - Exacerbating factors: Cold temperatures - Relieving factors: None explicitly mentioned - Interference: Pain interferes with daily activities and functional use of the hand Physical Exam - Musculoskeletal: Examination positive for allodynia in the right dorsal hand distribution Pain Management - Affect: Pain impacts daily activities and functional use of the hand - Analgesia: Current pain management includes consideration of a stellate ganglion block - Adverse Effects: None explicitly mentioned - Activities of Daily Living: Pain interferes with daily activities and functional use of the hand - Aberrant Drug Related Behaviors: None reported Procedure - Bilateral trigger point injections to cervical occipitalis, trapezius, rhomboid, levator scapulae, and latissimus dorsi - Anesthetic: 0.5 mL 0.25% ropivacaine injected at each trigger point (20mL total) - Consent: Informed consent obtained - Outcome: No blood loss, patient tolerated the procedure well [facility] Medical History Esophageal spasm Hx of carcinoma of bladder Bladder carcinoma History of trigger finger Cervical radiculitis Chronic sinusitis GERD (gastroesophageal reflux disease) FRANCESCA (obstructive sleep apnea) CAD (coronary artery disease) History of primary hyperparathyroidism Non-toxic multinodular goiter Osteoporosis Pulmonary nodules H/O gastroesophageal reflux (GERD) HLD (hyperlipidemia) HTN (hypertension) COPD (chronic obstructive pulmonary disease) Asthma History of aneurysm Migraine Depression PTSD (post-traumatic stress disorder) History of panic attacks Anxiety Edema History of deviated nasal septum Medial epicondylitis of left elbow Fusion of spine, cervical region Surgical History History of carpal tunnel release Hx of cystoscopy H/O cervical spine surgery Hx of hand surgery Hx of right inguinal hernia repair History of hernia repair Hx of colonoscopy History of esophagogastroduodenoscopy (EGD) S/P repair of paraesophageal hernia H/O decompression of ulnar nerve Status post ablation of incompetent vein using laser History of cardiac catheterization History of eyelid surgery History of appendectomy History of parathyroidectomy History of cholecystectomy Hx of cataract surgery Hx of shoulder surgery S/P cubital tunnel release S/P arthroscopic surgery of right knee History of lumpectomy of both breasts History of hysterectomy Hx of adenoidectomy Hx of tonsillectomy Hx of eye surgery Family History Father Liver cancer Psoriasis Cancer Mental health disorder Mother Cervical cancer Ovarian cancer Heart attack Substance use disorder Social History Household Members: Children and None Housing: House Alcohol intake: current Alcohol intake frequency: does not drink Patient Tobacco Use Status: Former Tobacco user Tobacco use type: Cigarette e-Cigarette/Vaping Use: Never Used Second Hand Smoke Exposure: No service: No Current occupational status: employed 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, 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 Cognitive needs: No Hearing needs: No Vision needs: Yes Physical Exam Vital Signs: Last Vital Signs Pulse 79 09/06/24 09:35 Resp 16 07/28/25 09:35 BP 147/74 H 07/28/25 09:35 Pulse Ox 97 09/06/24 09:35 Oxygen Delivery Method Room Air 09/06/24 09:35 BMI result Body Mass Index 32.1 Assessment & Plan Assessment & Plan (1) CRPS (complex regional pain syndrome), type I, upper: Code(s): G90.519 - Complex regional pain syndrome I of unspecified upper limb Category: Medical (2) Cervical myofascial pain syndrome: Code(s): M79.18 - Myalgia, other site Category: Medical Plan Plan - Plan for a right stellate ganglion block with local anesthetic to address CRPS symptoms prior to ulnar nerve release surgery. - Recommend delaying ulnar nerve release surgery to assess the effectiveness of the stellate ganglion block. - Discussed the potential risks of surgery exacerbating CRPS symptoms and the benefits of non-surgical intervention. - Repeat TPI as needed. Patient was informed and verbally consented to the use of an ambient scribe for clinic note documentation during this visit. Discussion Notes I discussed with the patient the diagnosis of Complex Regional Pain Syndrome and the associated symptoms. We reviewed the management options, including the stellate ganglion block, and the potential benefits and risks involved. I advised delaying the ulnar nerve release surgery to evaluate the effectiveness of the block. We also discussed the potential exacerbation of CRPS symptoms with surgical intervention and the importance of non-surgical management. The patient expressed understanding and agreed to proceed with the recommended plan. Patient Instructions - Schedule the stellate ganglion block before the planned ulnar nerve release surgery. - Delay the ulnar nerve release surgery by one month to assess the effectiveness of the block. - Monitor symptoms and report any changes or worsening of pain. Coding Level of Care Code Est Pt Level 4 (44288) Diagnoses CRPS (complex regional pain syndrome), type I, upper G90.519 Cervical myofascial pain syndrome M79.18
[2024-09-06 09:35] VITALS: BP 147/74; PULSE 79; RESP 16; O2SAT 97; BMI 32.1
--- OUTSIDE RECORDS SUMMARY | 2024-09-06 09:59 | XMS_ITS | Clinical Summary ---
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 [...] hand and has an appointment to see [facility] on July 14. She is welcome [...] using it. C-spine MRI done yesterday at [facility] does not show any significant central or [...] intact. X-rays of the cervical spine from [facility] dated 2024 show good position of her C4-5 and C5-C6-C7 plates but there does not appear to be robust bone growth across the disc spaces. I will discuss with Dr. Rodriguez and likely order a bone growth stimulator. Meantime, she is going to get in contact with [facility]. We talked about acupuncture and [...] 06/15/2024 3:15 PM EDT Office Visit Neurosurgery [place] [address] [place] [address] Siria Choi PA Cervical spondylosis (Primary Dx) 06/14/2024 6:04 PM EDT - 06/14/2024 11:59 PM EDT Hospital Encounter [facility] MRI [address] [place] [id number] Cervical radiculopathy Discharge Disposition: Home or Self Care 06/09/2024 Telephone Neurosurgery [facility] [address] [facility] [address] [place] [phone] Jenise Lewis MA Appointment ([employer] No auth required for C/Spine MRI faxed over to [facility]. They will contact pt w/appt. ) 06/08/2024 Telephone Neurosurgery [facility] [address] [facility] [address] [place] [address] Corrine Galvan MA from Last [...] Signed Date: 06/15/2024 10:50 ET Workstation ID: [id number] Transcribed By: Self Edit Transcribed Date: 06/15/2024 [...] artifact secondary to anterior fusion hardware from [id number] C7. No appreciable marrow infiltrative lesion. Alignment [...] Signed Date: 06/15/2024 10:50 ET Workstation ID: [id number] Transcribed By: Self Edit Transcribed Date: 06/15/2024 08:04 ET us Siria MORAES IMG MRI PROCEDURES Final R esult * [facility] DEXA AXIAL SKELETON (02/02/2018 9:04 AM EST) Anatomical Region Laterality Modality Mammography 02/02/2018 7:11 AM EST Narrative 02/02/2018 9:04 AM EST [facility] Diagnostic Imaging Department [address] [place] [address] Patient: ADALI MANCILLA Hari /Age/Sex: 1950 - 67 - F Unit#: [id number] [facility] Order[facility] Physician: KATERINA TOLBERT MD [facility] Dexa [...] probability of hip fracture of 11.3%. Code 63752 Dictating Physician: GALINA RIVERO MD Electronically Signed by: GALINA RIVERO MD Dic Date/Time: 02/02/18901 Sign date/Time: 02/02/18903 Procedure Note Galina Rivero MD - 01/29/2022 [facility] Diagnostic Imaging Department [address] [place], [place] [id number] Patient: ADALI MANCILLA/Age/Sex: 1950 - 67 - F Unit#: [id number] Location/Status: [facility]/REG CLI Mnemonic[facility] Ordering Physician: KATERINA TOLBERT MD [facility] Dexa [...] density of the femurs bilaterally is 0.707 gm/nv9gfura is 70% of that of young normals [...] probability of hip fracture of 11.3%. Code 49617 Dictating Physician: GALINA RIVERO MD Electronically Signed by: GALINA RIVERO MD Dic Date/Time: 02/02/18901 Sign date/Time: 02/02/18903 us Katerina Tolbert MD IMG BI PROCEDURES Final Re sult * [facility] SCREENING DIGITAL (02/02/2018 8:35 AM EST) Anatomical Region Laterality Modality Mammography 02/02/2018 7:10 AM EST Narrative 02/02/2018 8:35 AM EST [facility] Diagnostic Imaging Department [address] [place] [address] Patient: LAURENTADALI I /Age/Sex: 1950 - 67 - F Unit#: [id number] Location/Status: [facility]/REG CLI Mnemonic/Ordering Site: [facility] Ordering Physician: JEANETTE CARRERA MD [facility] Screening Digital - 02/02/18 - 0749 INDICATION: SCREENING COMPARISON: [facility] mammograms dating back to 01/12/2013 FINDINGS: CC and MLO views of the breasts were obtained, using full field digital mammography with 3D tomosynthesis views in the MLO projection. Computer aided detection with the [employer] 7.2-H was employed. Benign bilateral breast biopsies [...] a target date for the next mammogram. ([id number] / [id number]) , [id number] Dictating Physician: TONI MORA MD Electronically Signed by: TONI MORA MD Dic Date/Time: 02/02/18829 Sign date/Time: 02/02/18834 Procedure Note Toni Mora MD - 01/29/2022 [facility] Diagnostic Imaging Department [address] [place], [place] [address] Patient: ADALI MANCILLA Hari /Age/Sex: 1950 67 - F Unit#: [id number] Location/Status: [facility] CLI Mnemonic/Ordering Site: [facility] Ordering Physician: JEANETTE CARRERA MD [facility] Screening Digital - 02/02/18 - 0749 INDICATION: SCREENING COMPARISON: [facility] mammograms dating back to 01/12/2013 [...] date for the next mammogram. 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
--- OUTSIDE RECORDS SUMMARY | 2024-09-06 09:59 | XMS_ITS | Patient Health Record ---
Author Organization [facility] Address [address] [place] [address] Care Team Providers Care Frame Straightener Name Role Phone Augustine Carrera M.D. Primary Care Provider Ruth Manas Blas Unavailable [phone] Allergies Allergen (clinical drug ingredient) Drug/Non Drug Allergy documented on EMR Reaction Allergy Type Onset Date Status rosuvastatin Crestor Unknown Drug Allergy Acti ve [...] Tramadol HCl Unknown Drug Allergy Acti ve budesonide / formoterol Symbicort Unknown Drug Allergy Active Aleve Unknown Drug Allergy Active spironolactone Spironolactone Unknown Drug Allergy Active fluticasone / salmeterol Advair Diskus Unknown Drug Allergy Active tiotropium Spiriva HandiHaler Unknown Drug Allergy Active risedronate Actonel Unknown Drug Allergy Activ e simvastatin Simvastatin Unknown Drug Allergy Act hai low tolerance and sensitivity to pain meds (uncoded) Unknown Allergy Active metoclopramide Reglan Unknown Drug Allergy Ac tive Substance with penicillin structure and antibacterial mechanism of action (substance) PCN based antibiotics (uncoded) Unknown Allergy Active naproxen Naproxen Unknown Drug Allergy Active Substance with beta adrenergic receptor antagonist mechanism of action (substance) BETA blockers (uncoded) Unknown Allergy Active meloxicam Mobic Unknown Drug Allergy Active seasonal (uncoded) Unknown Allergy A ctive Metoprolol Succinate Unknown Drug Allergy Active some food allergies (uncoded) Unknown Allergy Active pregabalin Lyrica Unknown Drug Allergy Active rofecoxib Vioxx (uncoded) Unknown Allergy Acti ve lisinopril Lisinopril Unknown Drug Allergy Activ e Latex latex (uncoded) Unknown Allergy Acti ve raloxifene Evista Unknown Drug Allergy Active Reason For Referral [...] Furosemide 10mg Acti ve Qvar 40mcg Active [place]-Smoothe/FS Body 0.01% Active Vitamin D 2400 Activ e Losartan Potassium 25mg Active ZyrTEC 10mg Active Ventolin HFA Active Multi Vitamin/Minerals Active Artificial Tears Act hai Problems Problem Type SNOMED Code ICD Code Onset Dates Problem Status W/U Status Risk Notes Problem Irritable bowel syndrome (38980533) Irritable bowel syndrome (564.1) Active confirmed Problem Diarrhea (05810259) Diarrhea (787.91) Active confirmed Problem Generalized abdominal pain (700432481) Abdominal pain, generalized (789.07) Active confirmed Problem Constipation (14198776) Constipation (564.00) Active confirmed Problem Gastroesophageal reflux disease (333888753) GERD (gastroesophage al reflux disease) (530.81) Active confirmed Problem Epigastric pain (03123670) Abdominal discomfort, epigastric (789.06) Active confirmed Problem Gas (55743068) Gas (787.3) Active confirmed Plan Of Treatment Future Test Test Name Order Date UPPER GI ENDOSCOPY 08/15/2011 Insurance Providers Payer Name Payer Address Payer Phone Subscriber Number Group Number Insured Name Patient Relationship to Insured Coverage Start Date Coverage End Date MEDICARE OF [place] [address] [place] [address] [id number] JORGITO ALCANTARA Self - patient is the insured MEDICAID OF [facility] [address] [place] [address] [id number] JORGITO ALCANTARA Self - patient is the insured Medical (General) History Medical History History ICD Code screening colonoscopy 07-23-2006--neg. fo r polyps EGD 06-11-1999 and 02/17 negative for signi ficant esophagitis nor ulcer disease GERD hx of duodenal ulcer in the s Denies WA,DM,CVA,renal disease irregular heart beat elevated chloresterol hypertension osteoporosis Hiatal hernia Denies WA,DM,CVA,renal disease Mild asthma Anxiety Negative cardiac catheterization [...]
--- OUTSIDE RECORDS SUMMARY | 2024-09-06 09:59 | XMS_ITS | Data Portability ---
Author Organization [place] [facility], Allergy Address [address] [address] Care Team Providers Care Sql Dba Name Role Phone BEBE VELASCO Primary Care [...] Address Organization Details Recorded Time Bilateral tinnitus 88637611142 02 Active 2018 Tinnitus, bilateral ; Note: Date Diagnosed : 09/16/2018 9:36 AM (H93.13) Not Available [facility] 4 03:05:03 Sensorine ural hearing loss of bilateral ears 510534088 Active 2018 Sensorine ural hearing loss, bilateral ; Note: Date Diagnosed : 09/16/2018 9:36 AM (H90.3) Not Available [facility] 4 03:05:03 Migraine with aura 8613375 Active 2018 Migraine with aura, not intractab le, without status migrainos us; Note: Date Diagnosed : 09/16/2018 9:50 AM (G43.109) Not Available [facility] 4 03:05:05 Dizziness and giddiness 647427488 Active 2018 Dizziness and giddiness ; Note: Date Diagnosed : 09/16/2018 9:36 AM (R42) Not Available [facility] 4 03:05:03 Gastroeso phageal reflux disease without esophagit is 927482350 Active 2018 Gastro-es ophageal reflux disease without esophagit is; Note: Date Diagnosed : 09/16/2018 9:57 AM (K21.9) Not Available [facility] 4 03:05:03 Headache 94744935 Active 2018 Facial pain NOS; Note: Date Diagnosed : 09/16/2018 9:50 AM (R51) Not Available [facility] 4 03:05:02 Recurrent acute sinusitis 856867045 Active 2024 HARPREET HALEY MD [address] [place] [address], [place], [address] , [place] [facility] 5 16:29:55 Allergic rhinitis 87165544 Active 2024 HARPREET HALEY MD [address] [place] [address],[place] [address], [place], [address] , [place] [facility] 5 16:30:02 Problem Notes None recorded. Procedures Surgical History Date Name Laterality Status Provider Name and Address Organization Details Recorded Time 03/12/2024 Comp Audio with Tymps - 50402 & 59299 completed ADALI ASKEW [place], CCC-A [address] [place] [address], [phone], [facility] 03/12/2024 16:00:59 03/12/2024 NasalEndosc opy_DP completed HARPREET HALEY MD [address] [place] [address], [phone], [facility] 03/12/2024 16:29:37 Imaging Results None recorded. Procedure Notes None recorded. Medical Equipment None Reported. Allergies Allergen ID Allergen Name Allergen Category Reaction Reaction Severity Criticality Documentation Date Start Date Code Code System Note Provider Name and Address Organization Details Recorded Time 402019 tacrolimu s medicatio n Not available Not available Not available 03/12/2024 88633 RxNorm Zoraida Potvin null, [place] [facility] 15:11:51 496022 Nexletol medicatio n Not available Not available Not available 03/12/2024 04553 09 RxNorm Zoraida Potvin null, [place] [facility] 15:12:16 029114 Miebo medicatio n Not available Not available Not available 03/12/2024 13937 52 RxNorm Zoraida Potvin null, [place] [facility] 15:12:27 748420 sulindac medicatio n Not available Not available Not available 03/12/2024 71781 RxNorm Zoraida Potvin null, [place] [facility] 15:12:36 471361 Fosamax medicatio n Not available Not available Not available 03/12/2024 87183 5 RxNorm Zoraida Potvin null, [place] [facility] 15:12:46 640434 latex environme nt,medica tion Not available Not available Not available 03/12/2024 30873 91 RxNorm Zoraida Potvin null, [place] [facility] 15:13:27 055702 Dexilant medicatio n Not available Not available Not available 03/12/2024 10901 1 RxNorm Zoraida aMrsh [facility] abdul - [facility] 5 15:13:54 649524 doxycycli ne Not available Not available Not available Not available 03/12/2024 3640 RxNorm Zoraida Marsh franko [place] - [facility] 5 15:14:23 Medications Name Sig Start [...] Status Former Smoker HARPREET HALEY MD [address] [place] [address],[place] [address], [place], [address], [facility] - [facility] 03/12/2024 09:06:30 How Much Tobacco Do You Smoke? 0.25 PPD dplosky Information not available 03/12/2024 Sex: Unknown Functional Status None recorded. Mental Status None recorded. Family History Nothing Reported. Medical History Condition Response Allergies/Hayfever Y Heart Problems Y Anxiety Y Tonsil Infections N Emphysema N Migraines N Thyroid Problems N COPD N Depression N Developmental Delay N Glaucoma N Nasal or Sinus Problems Y Anemia N Immune System Disorder N Anesthesia Complications N Heart Attack (AL) N Other Skin Condition N Diabetes N [...] SNOMED-CT Code Diagnosis ICD10 Code Diagnosis Note [id number] HARPREET HALEY MD [facility] [address] [address] 03/12/2024 14:19:20 03/12/2024 16:35:50 Sensorineural hearing loss of bilateral ears [id number] H90.3 Audiologic al evaluation results: Right ear: Normal/ borderline normal hearing thru 1500Hz, sloping to a mild to severe SNHL with excellent word recognitio n. Left ear: Normal hearing thru 3000Hz dropping to a mild to severe SNHL with excellent word recognitio n. Tympanomet ry: Right Ear:Type A Left Ear:Type A Recurrent acute sinusitis 631108512 J01.91 Allergic rhinitis 257776 04 J30.9 Health Concerns Section Related Observation LastModified by Organization Detai ls LastModified Time None Recorded Concern Status LastModified by Organization Details LastModified Time None Recorded Advance Directives Directive None Recorded Payers Insurance Date Sequence Insurance Name Policy Number Policy Gill Covered Member ID Gill Member ID Guarantor Name 03/12/2024 1 [employer] (MEDICARE SUPPLEMENT) Adali I Houde [id number] Adali I Houde 03/12/2024 1 [place] [facility] Adali I Houde [id number] Adali I Houde 03/12/2024 1 [employer] Adali I Houde [id number] Adali I Houde 05/26/2024 1 [facility] - MEDICARE PREFERRED (MEDICARE REPLACEMENT HMO) [id number] Adali I Houde [id number] Adali I Houde 05/26/2024 1 [facility] (MEDICARE REPLACEMENT/A DVANTAGE - PPO) [id number] Adali Holman [id number] Adali Holman OBGykarlo Episode No OBEpisode recorded.
--- OUTSIDE RECORDS SUMMARY | 2024-09-06 09:59 | XMS_ITS | Patient Health Record ---
Author Organization [facility] Address [address] [place] [address] Care Team Providers Care Photographer Finish Name Role Phone BEBE VELASCO M.D Primary Care Provider LIZANDRO Bean Unavailable [phone] Allergies Allergen (clinical drug ingredient) Drug/Non Drug Allergy documented on EMR Reaction Allergy Type Onset Date Status 12 Hour Nasal Dupree Unknown Drug Allergy Active risedronate Actonel Unknown [...] Status Risk Notes Problem Postmenopausal atrophic vaginitis (02236144) Postmenopausal atrophic vaginitis (N95.2) Active confirmed Problem Age-related osteoporosis (364437389) Age-related osteoporosis without current pathological fracture (M81.0) Active confirmed Problem Essential hypertension (89494509) Essential (primary) hypertension (I10) Active confirmed Problem Hyperlipidemia (12254275) Hyperlipidemia, unspecified (E78.5) Active confirmed Problem Uncomplicated asthma (disorder) (652372554) Unspecified asthma, uncomplicated (J45.909) Active confirmed Problem Gastro-esophageal reflux disease without esophagitis (445115869) Gastro-esophageal reflux disease without esophagitis (K21.9) Active confirmed Plan Of Treatment No Information Insurance Providers Payer Name Payer Address Payer Phone Subscriber Number Group Number Insured Name Patient Relationship to Insured Coverage Start Date Coverage End Date MEDICARE [address] [facility] [place] [id number] [phone] [id number] LAURENT JORGITO Self - patient is the [...]
== END 2024-09-06 10:12 | disposition home or self-care (01) ==
LOC: HO.PMC 09:15
PROVIDERS: PCP Nurse Practitioner Family; Visit Provider Internal Medicine
DX: G90.511 Complex regional pain syndrome I of right upper limb (principal); M79.18 Myalgia, other site
CPT/HCPCS: 20553; 99214

== ENCOUNTER → 2024-09-06 09:07 | Outpatient (BNVA) | payer MEDICARE, SELFPAY | PROVIDERS: PCP Nurse Practitioner Family; Visit Provider Internal Medicine | DX: G90.511 Complex regional pain syndrome I of right upper limb (principal); M79.18 Myalgia, other site | CPT/HCPCS: 20553; 99212; J2795 ==

== ENCOUNTER 2024-09-13 08:25 | Outpatient (AMB) | payer OTHER, SELFPAY ==
[2024-09-13 08:33] VITALS: BP 104/60; PULSE 67; O2SAT 98; BMI 31.7
--- NOTE | 2024-09-13 08:33 | MHC.OFFVIS ---
Vital Signs 09/13/24 08:33 Height 4 ft 11 in Weight 157 lb BMI 31.7 BP 104/60 Blood Pressure Location Lt brachial Position Sitting Pulse 67 Pulse Source Pulse Oximeter Pulse Oximetry (%) 98 Oxygen Delivery Method Room Air Intake Visit Reasons: Preop clearance/Dyspnea Allergies dexlansoprazole (From DEXILANT) Allergy (Severe, Verified 09/13/24 08:39) dizziness, change in HR risedronate sodium (From ACTONEL) Allergy (Severe, Verified 09/13/24 08:39) chest discomfort Kftchzl-KVO-CtG Reductase Inhibitor ([id number]-ZJZ-BVD REDUCTASE INHIBITOR) Allergy (Severe, Verified 09/13/24 08:39) JOINT PAIN tramadol (TRAMADOL) Allergy (Severe, Verified 09/13/24 08:39) THROAT TIGHTNESS amlodipine (AMLODIPINE) Allergy (Intermediate, Verified 09/13/24 08:39) PALIPITATIONS Atrovent Allergy (Intermediate, Verified 09/13/24 08:39) Cough baclofen (BACLOFEN) Allergy (Intermediate, Verified 09/13/24 08:39) LETHARGY Beta-Blockers (Beta-Adrenergic Bloc Allergy (Intermediate, Verified 09/13/24 08:39) BRADYCARDIA budesonide (From SYMBICORT) Allergy (Intermediate, Verified 09/13/24 08:39) HOARSENESS Chocolate Allergy (Intermediate, Verified 09/13/24 08:39) GERD ezetimibe (From ZETIA) Allergy (Intermediate, Verified 09/13/24 08:39) JOINT PAIN, ELEVATED CPK fluticasone (From ADVAIR DISKUS) Allergy (Intermediate, Verified 09/13/24 08:39) HTN glucosamine Allergy (Intermediate, Verified 09/13/24 08:39) LE edema ibandronate sodium (From BONIVA) Allergy (Intermediate, Verified 09/13/24 08:39) CHEST PAIN latex (LATEX) Allergy (Intermediate, Verified 09/13/24 08:39) RASH-SENSITIVITY lisinopril (LISINOPRIL) Allergy (Intermediate, Verified 09/13/24 08:39) COUGH, really bad cough meloxicam (From MOBIC) Allergy (Intermediate, Verified 09/13/24 08:39) GI UPSET mometasone furoate (From DULERA) Allergy (Intermediate, Verified 09/13/24 08:39) COUGH niacin Allergy (Intermediate, Verified 09/13/24 08:39) Flushing Penicillins (PENICILLINS) Allergy (Intermediate, Verified 09/13/24 08:39) RASH pregabalin (From LYRICA) Allergy (Intermediate, Verified 09/13/24 08:39) GERD flare up raloxifene (From EVISTA) Allergy (Intermediate, Verified 09/13/24 08:39) GERD rofecoxib (From Vioxx) Allergy (Intermediate, Verified 09/13/24 08:39) ankle swelling salmeterol (From ADVAIR DISKUS) Allergy (Intermediate, Verified 09/13/24 08:39) HTN scallops (SCALLOPS) Allergy (Intermediate, Verified 09/13/24 08:39) NAUSEA & VOMITING sertraline (From ZOLOFT) Allergy (Intermediate, Verified 09/13/24 08:39) SKIN CRAWLING spironolactone (SPIRONOLACTONE) Allergy (Intermediate, Verified 09/13/24 08:39) RASH, ?? psoriasis strawberry (STRAWBERRY) Allergy (Intermediate, Verified 09/13/24 08:39) ITCHING tiotropium (From SPIRIVA WITH HANDIHALER) Allergy (Intermediate, Verified 09/13/24 08:39) RAW THROAT, pharyngitis verapamil (VERAPAMIL) Allergy (Intermediate, Verified 09/13/24 08:39) IRREGULAR HEARTBEAT esomeprazole (Nexium) Allergy (Mild, Verified 09/13/24 08:39) did not resolve GERD naproxen (From ALEVE) Allergy (Mild, Verified 09/13/24 08:39) FLUSH omeprazole Allergy (Mild, Verified 09/13/24 08:39) did not resolve GERD tacrolimus Allergy (Mild, Verified 09/13/24 08:39) Rash adhesive (ADHESIVE) Allergy (Unknown, Verified 09/13/24 08:39) RASH doxycycline (DOXYCYCLINE) Allergy (Unknown, Verified 09/13/24 08:39) SEVERE NOYOLA, HEARTBURN, joint pain gabapentin (From NEURONTIN) Allergy (Unknown, Verified 09/13/24 08:39) leg swelling, SOB metoclopramide (From REGLAN) Allergy (Unknown, Verified 09/13/24 08:39) LETHARGY monosodium glutamate (MSG) Allergy (Unknown, Verified 09/13/24 08:39) HEADACHE, increased HR lifitegrast (From Xiidra) Allergy (Verified 09/13/24 08:39) blurred vision, headache, eye swelling metoprolol Adverse Reaction (Severe, Verified 09/13/24 08:39) Severe bradycardia alendronate sodium (From Fosamax) Adverse Reaction (Intermediate, Verified 09/13/24 08:39) Joint Pain amitriptyline Adverse Reaction (Intermediate, Verified 09/13/24 08:39) Agitated cyclosporine (From Cequa) Adverse Reaction (Intermediate, Verified 09/13/24 08:39) Eye Swelling fluticasone furoate (From Trelegy Ellipta) Adverse Reaction (Intermediate, Verified 09/13/24 08:39) asthma exacerbation perfluorohexyloctane (From Miebo) Adverse Reaction (Intermediate, Verified 09/13/24 08:39) Eye Swelling tobramycin (From Tobrex) Adverse Reaction (Intermediate, Verified 09/13/24 08:39) Eye Swelling umeclidinium (From Trelegy Ellipta) Adverse Reaction (Intermediate, Verified 09/13/24 08:39) asthma exacerbation vilanterol (From Trelegy Ellipta) Adverse Reaction (Intermediate, Verified 09/13/24 08:39) asthma exacerbation azelastine Adverse Reaction (Mild, Verified 09/13/24 08:39) Gastrointestinal Upset hi Adverse Reaction (Intermediate, Uncoded 09/06/24 09:37) Itchy Eyes Sulindac Adverse Reaction (Intermediate, Uncoded 09/06/24 09:37) Nausea, pain HPI Comments Details: The patient is a 74-year-old woman with history of asthma in addition to hiatal hernia. Overall her respiratory symptoms have been stable and she was able to get off her maintenance inhaler. She has been having symptoms and she feels is mainly due to hiatal hernia. She has been seen closely by GI. They tried multiple medications in addition to reflux diet. She did try Reglan the resulted in significant side effects. I did tell her that there are other promotility agents she can consider. She understands that underlying reflux and hiatal hernia can result in worsening respiratory symptoms due to the microaspiration. I did provide the patient again with another reflux diet to make sure she is following the proper diet. We did review her last CT scan of the chest that demonstrated stable pulmonary nodules which was done at [facility]. Otherwise patient is without any other complaints. She still having significant reflux disease and regurgitation. She is followed closely by GI and now going to be followed up with surgery for possible surgical intervention for her persistent symptoms. We again talked about promotility agents, but, does not feel like dose going to work due to the fact that she has a pretty complicated hiatal hernia. We did again review her pulmonary nodules which appear to be stable for many years which is reassuring. 04/24/2022 the patient is here for pulmonary follow-up visit. Overall the patient is doing fairly well. She has not had to use her inhalers much. She does have a rescue inhaler that she can use as needed. She also has episodes of chest tightness mainly in the substernal area. Sometimes she associates it with her reflux disease. She continues to be on the medication for the reflux and Country knows to follow reflux diet. Although she continues to have symptoms. Explained to her that sometimes the reflux can result in micro aspirations into the lungs. She does have some changes primarily in the left lower lobe that are suspicious for bronchiolitis which could be due to aspiration. Her last CT scan of the chest was back in April 2021 demonstrating some new 4 mm pulmonary nodules which are subsolid in nature. The other nodules were stable. Will have the patient start CPT with flutter valve to try to clear any mucus at all the airways and plan to repeat the CT scan in 6 months which be 18 month follow-up CT scan for the new nodules. 10/30/2022 a the patient is here for pulmonary follow-up visit. The patient is healing in recovering after having cervical surgery the anterior approach. She had back in June. After she lost her voice for some time. She was having hard time with her breathing or shortness of breath and also chest pain. She was given 2 days of Decadron but no more because the recovery process. The patient was evaluated by ENT and had a laryngoscopy without any significant findings. They recommended speech therapy and also a barium modified barium swallow. She then saw GI and switched over to a regular barium swallow. Question of the metal plate affecting her swallow. As far as her breathing has been okay she has not had to use her rescue inhaler. Although she is concerned about the chest pain. The patient has been sleeping on a positional bed and she does have sleep apnea but she has been maintaining positional therapy. She has been on omeprazole and also Carafate for her reflux disease. We talked about the importance of a reflux diet. Also at the barium swallows okay she can consider a promotility agent. As far as her pulmonary nodules are stable. She does have some bronchitis as within the airways themselves but otherwise clinically stable. After she gets the barium swallow she was having a message for further recommendations. 01/25/2023 the patient is here for a pulmonary follow-up visit. She is doing relatively well from a respiratory status. She has been using the Xopenex as needed. Typically she has reflux issues is subsequently the reflux may exacerbate her breathing. Her rescue inhaler does help adjust partially. She is wondering if she can go back on QVAR. She were seemed to also help her. She is changing insurances so therefore may be better covered. I will go ahead and set of the QVAR again that she can use as prescribed. In addition to that she will be seen the GI doctor soon. She still having issues with reflux and also having issues with dysphagia. We also looked at her last CT scan that was done back in September 2022. It is reassuring that her pulmonary nodules are stable. She did have some slight inflammation of the right upper lung area suggesting some airways disease but it was minimal. No further imaging at this time. We will have her discuss additional imaging during the next visit. 04/10/2023 the patient is here for sick visit. Apparently she started developing worsening respiratory symptoms last 7-10 days. She was having cough in addition to shortness of breath and chest tightness. She went to an urgent care where she is found to have significant crackles on exam looked more than right suggesting of an atypical pneumonia. The patient is given a course of Z-Nilton in addition to short course of prednisone. She is already feeling better. Although she still feels some cough and some minimal wheezing. She has been using her inhalers. We did examine her lungs in her crackles are significantly better. She just has some trace crackles on the left lung now. Will go in request a chest x-ray to assess the area. If the area looks significantly abnormal then I will call her to give her additional medications. But at this point she would like to hold off on additional antibiotics. She also does not do well with prednisone. She will continue using her respiratory medications. she is having issues with her esophagus. She does have esophageal stricture and she did require dilation back in January of 2023. it was recommended she have a repeat procedure specially since she had significant scarring of the esophagus. I do believe that she is okay at this point and she may be able to proceed with the procedure. Since she is just now recovering from this illness I would least recommend she can wait least 2 weeks before having any interventions. 08/13/2023 the patient is here for a pulmonary follow-up visit. Overall she is doing okay from respiratory status. Although she started developing some increased nasal congestion sinus pressure and postnasal drip. She is feeling like she started to develop component of sinusitis. She is concerned because she is going to undergo surgery next week. 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 She will undergo procedure under anesthesia. Clinically she is doing well from a respiratory status and she is able to proceed with therapy. In the meantime will start her on a Z-Nilton to treat her in case symptoms worsen over the weekend she has been having issues with her inhalers. QVAR seems to work the best for her. Will go ahead and resend a prescription to pharmacy. She does not tolerate powdered inhalers because the Irritate the throat. The patient continues with the reflux diet. as far as imaging studies the patient had a chest x-ray back in 04/30/2023 without any acute disease. She also had a CT scan back in 2022 demonstrating stable pulmonary nodules and some minimal airways disease. Will follow-up in 6 months and discuss any additional testing if warranted. 11/28/2023 the patient is here for a pulmonary follow-up visit. Again she is complaining of nasal congestion. The last time was back in August when she had it. She did respond well to the Z-Nilton. She has a lot of intolerance to medications. Therefore will try another course to see if that improves her symptoms since it worked 1st time. In addition to that the patient has been using her respiratory therapy with good effect. She has not required any prednisone. She is having a little allergy symptoms. Therefore acting her upper and lower respiratory tract. Reasonable to do allergy testing further blood work at this time. 05/14/2024 the patient is here for a pulmonary follow-up visit. Still complaining of dyspnea on exertion. Moderate severity. She also has other elements including her neck pain. She is currently working with pain management for that. She does have a pain stimulator. This aggravates her and affects her sleep. She still strides to sleep on her side because of her sleep apnea. She does have a positional sleep apnea therefore she sleeps on her side she does not have any significant findings of sleep apnea. For her shortness of breath she is going to have a cardiac workup including a nuclear stress test and an echo and Holter monitor. If her workup is negative then will go ahead and address her pulmonary manifestations. She is already on QVAR which seems to be helpful. She also has a rescue inhaler that helps her as well. Will plan to repeat her pulmonary function studies prior to the next visit in September. I did recommend pulmonary rehabilitation specially if her cardiac workup is completely unremarkable. If she does have increased cardiovascular risk factors and her sleep apnea needs to be treated with PAP therapy we can also consider that as well. 09/13/2024 the patient is here for a pulmonary follow-up visit. Overall the patient has been doing fairly well from a respiratory status. She has a QVAR she also has a Singulair. She is wondering if she can stop the Singulair. I did recommend she can continue for now specially going into the allergy season. She understands and she will continue taking it. She has not required her rescue inhaler which is reassuring. Sometimes she feels her asthma is aggravated by her reflux and difficulty swallowing. She has had issues with it but she does not want to intervene on it because she does not want to have anymore procedures specially since she had the complication of her ulnar nerve injury. Also having back pain issues and neck pain issues. She is going to work closely with pain management for that. No recent imaging studies to review. The patient overall is doing well from a respiratory status she is going to continue with the current respiratory regimen and will follow-up in the spring. If any issues arise she will call for an earlier assessment. In regards of her PFTs the patient did have normal looking PFTs. She does have a significant response to bronchodilators and evidence of small airways disease consistent with a history of asthma. [facility] Medical History Esophageal spasm Hx of carcinoma of bladder Bladder carcinoma History of trigger finger Cervical radiculitis Chronic sinusitis GERD (gastroesophageal reflux disease) FRANCESCA (obstructive sleep apnea) CAD (coronary artery disease) History of primary hyperparathyroidism Non-toxic multinodular goiter Osteoporosis Pulmonary nodules H/O gastroesophageal reflux (GERD) HLD (hyperlipidemia) HTN (hypertension) COPD (chronic obstructive pulmonary disease) Asthma History of aneurysm Migraine Depression PTSD (post-traumatic stress disorder) History of panic attacks Anxiety Edema History of deviated nasal septum Medial epicondylitis of left elbow Fusion of spine, cervical region Surgical History History of carpal tunnel release Hx of cystoscopy H/O cervical spine surgery Hx of hand surgery Hx of right inguinal hernia repair History of hernia repair Hx of colonoscopy History of esophagogastroduodenoscopy (EGD) S/P repair of paraesophageal hernia H/O decompression of ulnar nerve Status post ablation of incompetent vein using laser History of cardiac catheterization History of eyelid surgery History of appendectomy History of parathyroidectomy History of cholecystectomy Hx of cataract surgery Hx of shoulder surgery S/P cubital tunnel release S/P arthroscopic surgery of right knee History of lumpectomy of both breasts History of hysterectomy Hx of adenoidectomy Hx of tonsillectomy Hx of eye surgery Family History Father Liver cancer Psoriasis Cancer Mental health disorder Mother Cervical cancer Ovarian cancer Heart attack Substance use disorder Social History Household Members: Children and None Housing: House Alcohol intake: current Alcohol intake frequency: does not drink Patient Tobacco Use Status: Former Tobacco user Tobacco use type: Cigarette e-Cigarette/Vaping Use: Never Used Second Hand Smoke Exposure: No service: No Current occupational status: employed 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, 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 Cognitive needs: No Hearing needs: No Vision needs: Yes Review of Systems Const Reports body aches, Denies chills, Denies fatigue and Denies fever(s) ENT Reports otalgia (R ear), Reports nasal congestion, Reports nasal discharge, Reports sinus pressure, Denies sore throat and Denies throat swelling Card Denies chest pain, Denies rapid heart rate and Reports dyspnea Resp Reports chest congestion, Reports cough, Denies hemoptysis, Denies excessive phlegm production, Reports dyspnea and Reports wheezing GI Denies abdominal pain Reports as per HPI and Reports hematuria Musc Reports back pain, Reports myalgias, Reports arthralgias, Reports muscle weakness and Reports tingling Neuro Reports tingling and Reports paresthesias Endo Denies fatigue Aller/Immun Denies throat swelling and Reports wheezing Physical Exam Vital Signs: Last Vital Signs Pulse 67 09/13/24 08:33 BP 104/60 09/13/24 08:33 Pulse Ox 98 09/13/24 08:33 Oxygen Delivery Method Room Air 09/13/24 08:33 BMI result Body Mass Index 31.7 Const General: alert HEENT Head: Yes normocephalic Eyes Pupils: Equal, round and reactive pupils present Neck Neck: Yes normal visual inspection, Yes full ROM and Yes no lymphadenopathy Chest Chest palpation & inspection: normal inspection of the chest Resp Auscultation: clear to auscultation bilaterally and no wheezes Cardio Rate: regular rate Rhythm: regular rhythm Heart sounds: S1 normal heart sound present and S2 normal heart sound present GI Palpation (GI): Soft to palpation and nontender Auscultation: normal bowel sounds General: Yes no CVA tenderness Back/Spine/Pelvis Back: no CVA tenderness Skin General skin exam: rashes and/or lesions noted Neuro Cranial nerves: Yes Equal, round and reactive pupils present Assessment & Plan Assessment & Plan (1) FRANCESCA (obstructive sleep apnea): Code(s): G47.33 - Obstructive sleep apnea (adult) (pediatric) Category: Medical (2) Dyspnea on exertion: Code(s): R06.00 - Dyspnea, unspecified Category: Medical (3) Pulmonary nodules: Code(s): R91.8 - Other nonspecific abnormal finding of lung field Category: Medical (4) GERD (gastroesophageal reflux disease): Code(s): K21.9 - Gastro-esophageal reflux disease without esophagitis Category: Medical Qualifiers: Esophagitis presence: without esophagitis Qualified Code(s): K21.9 - Gastro-esophageal reflux disease without esophagitis (5) Allergies: Code(s): T78.40XA - Allergy, unspecified, initial encounter Category: Medical Qualifiers: Encounter type: initial encounter Qualified Code(s): T78.40XA - Allergy, unspecified, initial encounter (6) Short of breath on exertion: Code(s): R06.02 - Shortness of breath Category: Medical Plan Continue short-acting beta agonist as needed (xopenex) QVAR singulair Reflux diet Positional therapy, avoiding sleeping back follow-up in 6 months Coding Level of Care Code Est Pt Level 4 (14003) Complex EM visit Add On G2211 Diagnoses FRANCESCA (obstructive sleep apnea) G47.33 Dyspnea on exertion R06.00 Pulmonary nodules R91.8 Gastroesophageal reflux disease without esophagitis K21.9 Esophagitis presence: without esophagitis Allergy, initial encounter T78.40XA Encounter type: initial encounter Short of breath on exertion R06.02 Time Spent (min) 17
--- OUTSIDE RECORDS SUMMARY | 2024-09-13 08:43 | XMS_ITS | Patient Health Record ---
Author Organization [facility] Address [address] [place] [address] Care Team Providers Care Patent Law Specialist Name Role Phone Augustine Carrera M.D. Primary Care Provider Ruth Manas Blas Unavailable [phone] Allergies Allergen (clinical drug ingredient) Drug/Non Drug [...] ibandronate Boniva Unknown Drug Allergy Activ e baclofen Baclofen Unknown Drug Allergy Active sertraline Zoloft Unknown Drug Allergy Active amlodipine Amlodipine Besylate Unknown Drug Allergy Active verapamil Verapamil HCl Unknown Drug Allergy Act hai amitriptyline Arceliatriptyline HCl Unknown Drug Allergy Active tramadol Tramadol HCl Unknown Drug Allergy Acti ve Aleve Unknown Drug Allergy Active budesonide / formoterol Symbicort Unknown Drug Allergy Active fluticasone / salmeterol Advair Diskus Unknown Drug Allergy Active spironolactone Spironolactone Unknown Drug Allergy Active risedronate Actonel Unknown Drug Allergy Activ e tiotropium Spiriva HandiHaler Unknown Drug Allergy Active low tolerance and sensitivity to pain meds [...] Furosemide 10mg Acti ve Qvar 40mcg Active [place]/FS Body 0.01% Active Vitamin D 2400 Activ e Losartan Potassium 25mg Active ZyrTEC 10mg Active Ventolin HFA Active Multi Vitamin/Minerals Active Artificial Tears Act hai Problems Problem Type SNOMED Code ICD Code Onset Dates Problem Status W/U Status Risk Notes Problem Irritable bowel syndrome (69358099) Irritable bowel syndrome (564.1) Active confirmed Problem Diarrhea (79625675) Diarrhea (787.91) Active confirmed Problem Generalized abdominal pain (875265053) Abdominal pain, generalized (789.07) Active confirmed Problem Constipation (38583068) Constipation (564.00) Active confirmed Problem Gastroesophageal reflux disease (370647110) GERD (gastroesophage al reflux disease) (530.81) Active confirmed Problem Epigastric pain (40724897) Abdominal discomfort, epigastric (789.06) Active confirmed Problem Gas (03414032) Gas (787.3) Active confirmed Plan Of Treatment Future Test Test Name Order Date UPPER GI ENDOSCOPY 08/15/2011 Insurance Providers Payer Name Payer Address Payer Phone Subscriber Number Group Number Insured Name Patient Relationship to Insured Coverage Start Date Coverage End Date MEDICARE OF [place] [address] [place] [id number] JORGITO ALCANTARA Self - patient is the insured MEDICAID OF [facility] [address] [place] [address] [id number] JORGITO ALCANTARA Self - patient is the insured Medical (General) History Medical History History ICD Code screening colonoscopy 07-23-2006--neg. fo r polyps EGD 06-11-1999 and 02/17 negative for signi ficant esophagitis nor ulcer disease GERD hx of duodenal ulcer in the s Denies ND,DM,CVA,renal disease irregular heart beat elevated chloresterol hypertension osteoporosis Hiatal hernia Denies ND,DM,CVA,renal disease Mild asthma Anxiety Negative cardiac catheterization [...]
--- OUTSIDE RECORDS SUMMARY | 2024-09-13 08:43 | XMS_ITS | Patient Health Record ---
Author Organization [facility] Address [address] [place] [address] Care Team Providers Care Rn Practitioner Name Role Phone BEBE VELASCO M.D Primary Care Provider LIZANDRO Bean Unavailable [phone] Allergies Allergen (clinical drug ingredient) Drug/Non Drug Allergy documented on EMR Reaction Allergy Type Onset Date Status 12 Hour Nasal [place] Unknown Drug Allergy Active risedronate Actonel Unknown [...] Status Risk Notes Problem Postmenopausal atrophic vaginitis (N95.2) Active confirmed Problem Age-related osteoporosis (512547838) Age-related osteoporosis without current pathological fracture (M81.0) Active confirmed Problem Essential hypertension (50818000) Essential (primary) hypertension (I10) Active confirmed Problem Hyperlipidemia (59545222) Hyperlipidemia, unspecified (E78.5) Active confirmed Problem Uncomplicated asthma (disorder) (906698181) Unspecified asthma, uncomplicated (J45.909) Active confirmed Problem Gastro-esophageal reflux disease without esophagitis (617622260) Gastro-esophageal reflux disease without esophagitis (K21.9) Active confirmed Plan Of Treatment No Information Insurance Providers Payer Name Payer Address Payer Phone Subscriber Number Group Number Insured Name Patient Relationship to Insured Coverage Start Date Coverage End Date MEDICARE [address] [facility], [place] [id number] [phone] [id number] JORGITO MANCILLA Self - patient is the [...]
--- OUTSIDE RECORDS SUMMARY | 2024-09-13 08:43 | XMS_ITS | Clinical Summary ---
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 Gait is steady. Review [...] hand and has an appointment to see [place] [facility] on July 14. She is welcome [...] using it. C-spine MRI done yesterday at [facility] does not show any significant [...] intact. X-rays of the cervical spine from [facility] dated 2024 show good position of her C4-5 and C5-C6-C7 plates but there does not appear to be robust bone growth across the disc spaces. I will discuss with Dr. Rodriguez and likely order a bone growth stimulator. Meantime, she is going to get in contact with [place] pain management. We talked about acupuncture and [...] 06/15/2024 3:15 PM EDT Office Visit Neurosurgery [facility] [address] [place] [address] Siria Choi PA Cervical spondylosis (Primary Dx) 06/14/2024 6:04 PM EDT - 06/14/2024 11:59 PM EDT Hospital Encounter [facility] MRI [address] [place] [address] Cervical radiculopathy Discharge Disposition: Home or Self Care from Last 3 Months Immunizations Name Administration [...] Depression Screening 02/11/2024 Influenza Vaccine (#1) 2024 4, 11/10/2020, 11/07/2019, Additional history exists DTaP,Tdap,and Td [...] Routine 06/14/2024 7:14 PM EDT Cervical radiculopathy [facility] DEXA AXIAL SKELETON Routine 02/02/2018 9:04 AM EST Encounter for screening for osteoporosis [facility] SCREENING DIGITAL Routine 02/02/2018 8:35 AM EST [...] Signed Date: 06/15/2024 10:50 ET Workstation ID: [id number] Transcribed By: Self Edit Transcribed Date: 06/15/2024 [...] artifact secondary to anterior fusion hardware from H4faxxupj C7. No appreciable marrow infiltrative lesion. Alignment [...] Signed Date: 06/15/2024 10:50 ET Workstation ID: [id number] Transcribed By: Self Edit Transcribed Date: 06/15/2024 08:04 ET us Siria MORAES IMG MRI PROCEDURES Final R esult * [facility] DEXA AXIAL SKELETON (02/02/2018 9:04 AM EST) Anatomical Region Laterality Modality Mammography 02/02/2018 7:11 AM EST Narrative 02/02/2018 9:04 AM EST [facility] Diagnostic Imaging Department [address] [place], [place] [id number] Patient: ADALI HOLMAN Hari /Age/Sex: 1950 - 67 - F Unit#: [id number] Location/Status: SPDIMA/REG CLI [facility]em[facility] Ordering Physician: KATERINA TOLBERT MD [facility] Dexa [...] probability of hip fracture of 11.3%. Code 85621 Dictating Physician: GALINA KUO MD Electronically Signed by: GALINA KUO MD Dic Date/Time: 02/02/18901 Sign date/Time: 02/02/18903 Procedure Note Galina Kuo MD - 01/29/2022 [facility] Diagnostic Imaging Department [address] [place] [address] Patient: ADALI HOLMAN Hari CunninghamB./Age/Sex: 1950 - 67 - F Unit#: [id number] Location/Status: [facility] Mnemonic/[facility]ing [facility] Ordering Physician: KATERINA TOLBERT MD [facility] Dexa Axial Skeleton - 02/02/18 - 7977 HISTORY: The patient is a 67-year-old postmenopausal [...] density of the femurs bilaterally is 0.707 gm/jr0qumib is 70% of that of young normals [...] probability of hip fracture of 11.3%. Code 96220 Dictating Physician: GALINA KUO MD Electronically Signed by: GALINA KUO MD Dic Date/Time: 02/02/18901 Sign date/Time: 02/02/18903 us Katerina Tolbert MD IMG BI PROCEDURES Final Re sult * [facility] SCREENING DIGITAL (02/02/2018 8:35 AM EST) Anatomical Region Laterality Modality Mammography 02/02/2018 7:10 AM EST Narrative 02/02/2018 8:35 AM EST [facility] Diagnostic Imaging Department [address] [place] [address] Patient: ADALI HOLMNA Hari /Age/Sex: 1950 - 67 - F Unit#: [id number] Location/Status: SPDIMAM/REG CLI Mnemonic/Ordering Site: [facility] Ordering Physician: JEANETTE CARRERA MD [facility] Screening Digital - 02/02/18 - 0749 INDICATION: SCREENING COMPARISON: [facility] mammograms dating back to 01/12/2013 FINDINGS: CC and MLO views of the breasts were obtained, using full field digital mammography with 3D tomosynthesis views in the MLO projection. Computer aided detection with the [employer] 7.2-H was employed. Benign bilateral breast biopsies [...] a target date for the next mammogram. ([id number] / [id number]) , 49087 Dictating Physician: TONI SHRESTHA MD Electronically Signed by: TONI SHRESTHA MD Dic Date/Time: 02/02/18829 Sign date/Time: 02/02/18834 Procedure Note Toni Shrestha MD - 01/29/2022 [facility] Diagnostic Imaging Department [address] [place] [address] Patient: ADALI HOLMAN Hari /Age/Sex: 1950 - 67 - F Unit#: [id number] Location/Status: [facility] CLI Mnemonic/Ordering Site: [facility] Ordering Physician: JEANETTE CARRERA MD [facility] Screening Digital - 02/02/18 - 49 INDICATION: SCREENING COMPARISON: [facility] mammograms dating back to 01/12/2013 FINDINGS: CC and MLO views of the breasts were obtained, using full field digital mammography with 3D tomosynthesis views in the MLO projection. Computeraided detection with the [employer] 7.2-H was employed. Benign bilateral breast biopsies [...] date for the next mammogram. [id number] / [id number]) , 09882 Dictating Physician: TONI SHRESTHA MD Electronically Signed by: TONI SHRESTHA MD Dic Date/Time: 02/02/18829 Sign date/Time: 02/02/18834 Jeanette Carrera MD IMG BI PROCEDURES Final Resu lt from Last 3 Months or Most Recently Relevant to Health Maintenance Insurance [employer] MED[employer] ADVANTAGE Advance Directives Documents on File Type Date Recorded Patient Accounting Practice Manager Expl anation Health Care Decision (hx) 07/02/2022 [...] (hx) 07/18/2009 AD HERNANDEZ DIRECTIVE Care Teams Tour Actor Relationship Specialty Start Date End Date Sachin Linares NP [address] [place], [place] PCP - General 05/31/22
== END 2024-09-13 09:01 | disposition home or self-care (01) ==
LOC: HO.HPS 08:26
PROVIDERS: PCP Nurse Practitioner Family; Visit Provider Hospitalist
DX: G47.33 Obstructive sleep apnea (adult) (pediatric) (principal); R06.00 Dyspnea, unspecified; R91.8 Other nonspecific abnormal finding of lung field; K21.9 Gastro-esophageal reflux disease without esophagitis; T78.40XA Allergy, unspecified, initial encounter; R06.02 Shortness of breath
CPT/HCPCS: 99214; G2211

== ENCOUNTER 2024-09-27 11:10 | Outpatient (REF) | payer OTHER, SELFPAY ==
--- NOTE | ~2024-09-27 | US_ITS ---
EXAMINATION: US RETROPERITONEAL COMPLETE (RENAL) CLINICAL INFORMATION: Malignant neoplasm of the bladder.. COMPARISON: Correlated to CT abdomen pelvis dated July 15, 2023. TECHNIQUE: Real-time imaging of the kidneys and bladder. FINDINGS: RIGHT KIDNEY: 9 x 3 x 5 cm (SAG x AP x TRV). Normal echotexture. Normal renal cortical thickness. No hydronephrosis. No gross solid or cystic lesion detected. LEFT KIDNEY: 9 x 4 x 4 cm (SAG x AP x TRV). Normal echotexture normal renal cortical thickness. No hydronephrosis. No gross solid or cystic lesion detected. BLADDER: Fluid-filled. Bilateral ureteral jets are demonstrated. Prevoid bladder volume is 219 mL. Postvoid bladder volume is 10 mL. US/US retroperitoneal comp IMPRESSION: 10 cc of retained urine in a post void image. No hydronephrosis.. Electronically signed by: Rob Rivers MD 09/27/2024 11:47 AM EDT
--- OUTSIDE RECORDS SUMMARY | 2024-09-27 12:24 | XMS_ITS | Patient Health Record ---
Author Organization [facility] Address [address] [place] [address] Care Team Providers Care Mooner Name Role Phone Augustine aCrrera M.D. Primary Care Provider Ruth Manas Blas Unavailable [phone] Allergies Allergen (clinical drug ingredient) Drug/Non Drug Allergy documented on EMR Reaction Allergy Type Onset Date Status Substance with beta adrenergic receptor antagonist mechanism of action (substance) BETA blockers (uncoded) Unknown Allergy Active naproxen Naproxen Unknown Drug Allergy Active seasonal (uncoded) Unknown Allergy A ctive meloxicam [...] Allergy Active Aleve Unknown Drug Allergy Active fluticasone / salmeterol [...] metoclopramide Reglan Unknown Drug Allergy Ac tive Reason For Referral No Information Medications Medication [...] Furosemide 10mg Acti ve Qvar 40mcg Active [place]/FS Body 0.01% Active Vitamin D 2400 Activ e Losartan Potassium 25mg Active ZyrTEC 10mg Active Ventolin HFA Active Multi Vitamin/Minerals Active Artificial Tears Act hai Problems Problem Type SNOMED Code ICD Code Onset Dates Problem Status W/U Status Risk Notes Problem Irritable bowel syndrome (38756244) Irritable bowel syndrome (564.1) Active confirmed Problem Diarrhea (47178737) Diarrhea (787.91) Active confirmed Problem Generalized abdominal pain (824981270) Abdominal pain, generalized (789.07) Active confirmed Problem Constipation (42215796) Constipation (564.00) Active confirmed Problem Gastroesophageal reflux disease (392769768) GERD (gastroesophage al reflux disease) (530.81) Active confirmed Problem Epigastric pain (81205525) Abdominal discomfort, epigastric (789.06) Active confirmed Problem Gas (23360228) Gas (787.3) Active confirmed Plan Of Treatment Future Test Test Name Order Date UPPER GI ENDOSCOPY 08/15/2011 Insurance Providers Payer Name Payer Address Payer Phone Subscriber Number Group Number Insured Name Patient Relationship to Insured Coverage Start Date Coverage End Date MEDICARE OF [place] [address] [place] [address] [id number] JORGITO ALCANTARA Self - patient is the insured MEDICAID OF [facility] [address] [place] [address] [id number] JORGITO ALCANTARA Self - patient is the insured Medical (General) History Medical History History ICD Code screening colonoscopy 07-23-2006--neg. fo r polyps EGD 06-11-1999 and 02/17 negative for signi ficant esophagitis nor ulcer disease GERD hx of duodenal ulcer in the s Denies [place],DM,CVA,renal disease irregular heart beat elevated chloresterol hypertension osteoporosis Hiatal hernia Denies [place],DM,CVA,renal disease Mild asthma Anxiety Negative cardiac catheterization [...]
--- OUTSIDE RECORDS SUMMARY | 2024-09-27 12:24 | XMS_ITS | Clinical Summary ---
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 Gait is steady. Review [...] hand and has an appointment to see [place] [facility] on July 14. She is welcome [...] using it. C-spine MRI done yesterday at [facility] does not show any significant [...] intact. X-rays of the cervical spine from [facility] dated 2024 show good position of her C4-5 and C5-C6-C7 plates but there does not appear to be robust bone growth across the disc spaces. I will discuss with Dr. Rodriguez and likely order a bone growth stimulator. Meantime, she is going to get in contact with [place] pain management. We talked about acupuncture and [...] reflux disease) 7 Anxiety 01/16/2017 Asthma 09/12/2016 Immunizations Name Administration Dates Next Due Influenza [...] Procedure Name Priority Date/Time Associated Diagnosis Comments [facility] DEXA AXIAL SKELETON Routine 02/02/2018 9:04 AM EST Encounter for screening for osteoporosis [facility] SCREENING DIGITAL Routine 02/02/2018 8:35 AM EST Encounter for screening mammogram for malignant neoplasm of breast from Last 3 Months or Most Recently Relevant to Health Maintenance Results * [facility] DEXA AXIAL SKELETON (02/02/2018 9:04 AM EST) Anatomical Region Laterality Modality Mammography 02/02/2018 7:11 AM EST Narrative 02/02/2018 9:04 AM EST [facility] Diagnostic Imaging Department [address] [place] [address] Patient: ADALI HOLMAN Hari /Age/Sex: 1950 - 67 - F Unit#: [id number] Location/Status: [facility] CLI [facility]emonic[facility] Ordering Physician: KATERINA TOLBERT MD [facility] Dexa [...] probability of hip fracture of 11.3%. Code 85665 Dictating Physician: GALINA KUO MD Electronically Signed by: GALINA KUO MD Dic Date/Time: 02/02/18901 Sign date/Time: 02/02/18903 Procedure Note Galina Kuo MD - 01/29/2022 [facility] Diagnostic Imaging Department [address] [place] [address] Patient: ADALI HOLMAN Hari /Age/Sex: 1950 67 - F Unit#: [id number] Location/Status: SPDIMAM/REG CLI Mnemonic[facility] Ordering Physician: KATERINA TOLBERT MD [facility] Dexa Axial Skeleton - 02/02/18748 [...] density of the femurs bilaterally is 0.707 gm/ib5vxjsy is 70% of that of young normals [...] probability of hip fracture of 11.3%. Code 83427 Dictating Physician: GALINA KUO MD Electronically Signed by: GALINA KUO MD Dic Date/Time: 02/02/18901 Sign date/Time: 02/02/18903 us Katerina Tolbert MD IMG BI PROCEDURES Final Re sult * [facility] SCREENING DIGITAL (02/02/2018 8:35 AM EST) Anatomical Region Laterality Modality Mammography 02/02/2018 7:10 AM EST Narrative 02/02/2018 8:35 AM EST [facility] Diagnostic Imaging Department [address] [place] [address] Patient: ADALI HOLMAN I /Age/Sex: 1950 - 67 - F Unit#: [id number] Location/Status: [facility]/REG CLI Mnemonic/Ordering Site: [facility] Ordering Physician: JEANETTE CARRERA MD [facility] Screening Digital - 02/02/18 - 0749 INDICATION: SCREENING COMPARISON: [facility] mammograms dating back to 01/12/2013 FINDINGS: CC and MLO views of the breasts were obtained, using full field digital mammography with 3D tomosynthesis views in the MLO projection. Computer aided detection with the [employer] 7.2-H was employed. Benign bilateral breast biopsies [...] a target date for the next mammogram. [id number] / [id number]) , 63239 Dictating Physician: TONI SHRESTHA MD Electronically Signed by: TONI SHRESTHA MD Dic Date/Time: 02/02/18829 Sign date/Time: 02/02/18 08 Procedure Note Toni Shrestha MD - 01/29/2022 [facility] Diagnostic Imaging Department [address] [place], [place] [address] Patient: ADALI HOLMAN I /Age/Sex: 1950 67 - Unit#: [id number] Location/Status: [facility] CLI Mnemonic/Ordering Site: [facility] Ordering Physician: JEANETTE CARRERA MD [facility] Screening Digital - 02/02/18 - 49 INDICATION: SCREENING COMPARISON: [facility] mammograms dating back to 01/12/2013 FINDINGS: CC and MLO views of the breasts were obtained, using full field digital mammography with 3D tomosynthesis views in the MLO projection. Computeraided detection with the [employer] 7.2-H was employed. Benign bilateral breast biopsies [...] a target date for the next mammogram. [id number] / [id number]) , 05546 Dictating Physician: TONI SHRESTHA MD Electronically Signed by: TONI SHRESTHA MD Dic Date/Time: 02/02/18829 Sign date/Time: 02/02/18834 Jeanette Carrera MD [facility] BI PROCEDURES Final Resu lt from Last 3 Months or Most Recently Relevant to Health Maintenance Insurance [employer] MED[employer] ADVANTAGE Advance Directives Documents on File Type Date Recorded Patient Front Office Spec Expl anation Health Care Decision (hx) 07/02/2022 [...] (hx) 07/18/2009 AD HERNANDEZ DIRECTIVE Care Teams Manifest Clerk Relationship Specialty Start Date End Date Sachin Linares NP [address] [place], [place] PCP - General 05/31/22
--- OUTSIDE RECORDS SUMMARY | 2024-09-27 12:24 | XMS_ITS | Patient Health Record ---
Author Organization [facility] Address [address] [place] [address] Care Team Providers Care Tobacco Grader Name Role Phone BEBE VELASCO M.D Primary Care Provider LIZANDRO Bean Unavailable [phone] Allergies Allergen (clinical drug ingredient) Drug/Non Drug Allergy documented on EMR Reaction Allergy Type Onset Date Status 12 Hour Nasal [place] Unknown Drug Allergy Active risedronate Actonel Unknown [...] Status Risk Notes Problem Postmenopausal atrophic vaginitis (12688438) Postmenopausal atrophic vaginitis (N95.2) Active confirmed Problem Age-related osteoporosis (896536785) Age-related osteoporosis without current pathological fracture (M81.0) Active confirmed Problem Essential hypertension (55101938) Essential (primary) hypertension (I10) Active confirmed Problem Hyperlipidemia (03565632) Hyperlipidemia, unspecified (E78.5) Active confirmed Problem Uncomplicated asthma (disorder) (987921810) Unspecified asthma, uncomplicated (J45.909) Active confirmed Problem Gastro-esophageal reflux disease without esophagitis (190642638) Gastro-esophageal reflux disease without esophagitis (K21.9) Active confirmed Plan Of Treatment No Information Insurance Providers Payer Name Payer Address Payer Phone Subscriber Number Group Number Insured Name Patient Relationship to Insured Coverage Start Date Coverage End Date MEDICARE [address] [facility] [place] [id number] LAURENT JORGITO Self - patient is the [...]
== END 2024-09-27 11:11 | disposition home or self-care (01) ==
LOC: HO.HMGCX 11:10
PROVIDERS: PCP Nurse Practitioner Family; Visit Provider Urology
DX: R39.15 Urgency of urination (principal); C67.9 Malignant neoplasm of bladder, unspecified; R31.9 Hematuria, unspecified
CPT/HCPCS: 76770

== ENCOUNTER → 2024-09-27 11:17 | Outpatient (BNV) | payer OTHER, SELFPAY | PROVIDERS: PCP Nurse Practitioner Family; Visit Provider Radiology Diagnostic Radiology | DX: C67.9 Malignant neoplasm of bladder, unspecified (principal) | CPT/HCPCS: 76770 ==

== ENCOUNTER 2024-10-07 09:06 | Outpatient (REF) | payer OTHER, SELFPAY | END 2024-10-07 09:07 | disposition home or self-care (01) | LOC: HO.LAB 09:06 | PROVIDERS: PCP Nurse Practitioner Family; Visit Provider Urology | DX: R35.0 Frequency of micturition (principal); C67.9 Malignant neoplasm of bladder, unspecified; N32.89 Other specified disorders of bladder; N39.0 Urinary tract infection, site not specified; A49.9 Bacterial infection, unspecified; Z79.891 Long term (current) use of opiate analgesic; Z13.89 Encounter for screening for other disorder | CPT/HCPCS: 52000; 81003; 87086; 88112 ==

== ENCOUNTER 2024-10-07 09:06 | Outpatient (AMB) | payer OTHER, SELFPAY ==
--- NOTE | 2024-10-07 09:28 | A.OFFVIS_ITS ---
Intake Visit Reasons: cysto/US Intake Note: Patient presents to office today for cystoscopy Urology Med:None Antibiotic Allergy: Penicillins, Doxycycline, Blood Thinner: Asprin retroperitoneal us done: 09/27/24 Tunnel Inspector Required: No Accompanied by: Self / Same As Patient Allergies dexlansoprazole (From DEXILANT) Allergy (Severe, Verified 10/07/24 09:29) dizziness, change in HR risedronate sodium (From ACTONEL) Allergy (Severe, Verified 10/07/24 09:29) chest discomfort Ruikidx-ZHB-FgT Reductase Inhibitor (BIUERGV-GYP-HEA REDUCTASE INHIBITOR) Allergy (Severe, Verified 10/07/24 09:29) JOINT PAIN tramadol (TRAMADOL) Allergy (Severe, Verified 10/07/24 09:29) THROAT TIGHTNESS amlodipine (AMLODIPINE) Allergy (Intermediate, Verified 10/07/24 09:29) PALIPITATIONS Atrovent Allergy (Intermediate, Verified 10/07/24 09:29) Cough baclofen (BACLOFEN) Allergy (Intermediate, Verified 10/07/24 09:29) LETHARGY Beta-Blockers (Beta-Adrenergic Bloc Allergy (Intermediate, Verified 10/07/24 09:29) BRADYCARDIA budesonide (From SYMBICORT) Allergy (Intermediate, Verified 10/07/24 09:29) HOARSENESS Chocolate Allergy (Intermediate, Verified 10/07/24 09:29) GERD ezetimibe (From ZETIA) Allergy (Intermediate, Verified 10/07/24 09:29) JOINT PAIN, ELEVATED CPK fluticasone (From ADVAIR DISKUS) Allergy (Intermediate, Verified 10/07/24 09:29) HTN glucosamine Allergy (Intermediate, Verified 10/07/24 09:29) LE edema ibandronate sodium (From BONIVA) Allergy (Intermediate, Verified 10/07/24 09:29) CHEST PAIN latex (LATEX) Allergy (Intermediate, Verified 10/07/24 09:29) RASH-SENSITIVITY lisinopril (LISINOPRIL) Allergy (Intermediate, Verified 10/07/24 09:29) COUGH, really bad cough meloxicam (From MOBIC) Allergy (Intermediate, Verified 10/07/24 09:29) GI UPSET mometasone furoate (From DULERA) Allergy (Intermediate, Verified 10/07/24 09:29) COUGH niacin Allergy (Intermediate, Verified 10/07/24 09:29) Flushing Penicillins (PENICILLINS) Allergy (Intermediate, Verified 10/07/24 09:29) RASH pregabalin (From LYRICA) Allergy (Intermediate, Verified 10/07/24 09:29) GERD flare up raloxifene (From EVISTA) Allergy (Intermediate, Verified 10/07/24 09:29) GERD rofecoxib (From Vioxx) Allergy (Intermediate, Verified 10/07/24 09:29) ankle swelling salmeterol (From ADVAIR DISKUS) Allergy (Intermediate, Verified 10/07/24 09:29) HTN scallops (SCALLOPS) Allergy (Intermediate, Verified 10/07/24 09:29) NAUSEA & VOMITING sertraline (From ZOLOFT) Allergy (Intermediate, Verified 10/07/24 09:29) SKIN CRAWLING spironolactone (SPIRONOLACTONE) Allergy (Intermediate, Verified 10/07/24 09:29) RASH, ?? psoriasis strawberry (STRAWBERRY) Allergy (Intermediate, Verified 10/07/24 09:29) ITCHING tiotropium (From SPIRIVA WITH HANDIHALER) Allergy (Intermediate, Verified 10/07/24 09:29) RAW THROAT, pharyngitis verapamil (VERAPAMIL) Allergy (Intermediate, Verified 10/07/24 09:29) IRREGULAR HEARTBEAT esomeprazole (Nexium) Allergy (Mild, Verified 10/07/24 09:29) did not resolve GERD naproxen (From ALEVE) Allergy (Mild, Verified 10/07/24 09:29) FLUSH omeprazole Allergy (Mild, Verified 10/07/24 09:29) did not resolve GERD tacrolimus Allergy (Mild, Verified 10/07/24 09:29) Rash adhesive (ADHESIVE) Allergy (Unknown, Verified 10/07/24 09:29) RASH doxycycline (DOXYCYCLINE) Allergy (Unknown, Verified 10/07/24 09:29) SEVERE NOYOLA, HEARTBURN, joint pain gabapentin (From NEURONTIN) Allergy (Unknown, Verified 10/07/24 09:29) leg swelling, SOB metoclopramide (From REGLAN) Allergy (Unknown, Verified 10/07/24 09:29) LETHARGY monosodium glutamate (MSG) Allergy (Unknown, Verified 10/07/24 09:29) HEADACHE, increased HR lifitegrast (From Xiidra) Allergy (Verified 10/07/24 09:29) blurred vision, headache, eye swelling metoprolol Adverse Reaction (Severe, Verified 10/07/24 09:29) Severe bradycardia alendronate sodium (From Fosamax) Adverse Reaction (Intermediate, Verified 10/07/24 09:29) Joint Pain amitriptyline Adverse Reaction (Intermediate, Verified 10/07/24 09:29) Agitated cyclosporine (From Cequa) Adverse Reaction (Intermediate, Verified 10/07/24 09:29) Eye Swelling fluticasone furoate (From Trelegy Ellipta) Adverse Reaction (Intermediate, Verified 10/07/24 09:29) asthma exacerbation perfluorohexyloctane (From Miebo) Adverse Reaction (Intermediate, Verified 10/07/24 09:29) Eye Swelling tobramycin (From Tobrex) Adverse Reaction (Intermediate, Verified 10/07/24 09:29) Eye Swelling umeclidinium (From Trelegy Ellipta) Adverse Reaction (Intermediate, Verified 10/07/24 09:29) asthma exacerbation vilanterol (From Trelegy Ellipta) Adverse Reaction (Intermediate, Verified 10/07/24 09:29) asthma exacerbation azelastine Adverse Reaction (Mild, Verified 10/07/24 09:29) Gastrointestinal Upset hi Adverse Reaction (Intermediate, Uncoded 10/07/24 09:29) Itchy Eyes Sulindac Adverse Reaction (Intermediate, Uncoded 10/07/24 09:29) Nausea, pain HPI Comments Details: 10/07/24--Adali is here for surveillance office cystoscopy. Macrobid 100 mg x 1 PO pre-procedure. History of TURBT 08/19/2023-- low-grade urothelial carcinoma, noninvasive. Discussed renal ultrasound 09/27/2024-within normal limits Cystoscopy findings: WNL, area noted prior left trigone resolved. no suspicious bladder lesions visualized. Cont surveillance. cysto in 6 months. The patient complains of intermittent urgency. We will send urine for albin veillance culture and urine cytology. 07/02/24--Here for surveilance office cystoscopy. h/o low-grade noninvasive bladder cancer. Cystoscopy findings: small irregular area near left trigone, moderate bladder wall thickening, no suspicious bladder lesions visualized. Results - Previous urine FISH testing demonstrating a normal hybridization pattern Plan - Return for follow-up in three months to monitor the area of bladder irregularity - Complete the ultrasound appointment when it is scheduled to assess kidney health 05/17/24--Telehealth - FU -discussed urine testing. Negative urine FISH--A normal hybridization pattern was observed for chromosomes 3, 7, 9, and 17. The UroVysion test was designed for use on voided urine specimens as an aid for the initial diagnosis of bladder carcinoma in patients with hematuria and subsequent monitoring for tumor recurrence in patients previously diagnosed with bladder cancer. 03/05/24--Adali is here for surveillance office cystoscopy. Cipro 500mg x 1 PO pre-procedure. Cystoscopy findings: WNL, no suspicious bladder lesions visualized. Cont surveillance. cysto in 4 months. 12/05/23--Adali is a 73-year-old here for 3 month what small or surveillance office cystoscopy. Cystoscopy findings: No recurrent bladder lesions mild to moderate bladder trabeculations. 09/10/23--Adali is status post cystoscopy TURBT. I have reviewed pathology, low-grade noninvasive bladder cancer. I have discussed treatment management for cystoscopy surveillance. Based on small size and that the tumor is low-grade, bladder installations therapy is not indicated at this time. 07/25/2023--here for cystoscopy. CT urogram--within normal limits. Cystoscopy findings: Mild to moderate bladder wall thickening. 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 Discussed cystoscopy TURBT. Consent obtained. 05/19/23--Adali is a 73-year-old female who is here for evaluation for microscopic hematuria. The patient has a history of nicotine use quit in 1979. The patient has lower urinary tract symptoms of urinary frequency. 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 She states she is no longer routinely following with [employer] but told by [employer] about 3 years ago that she had vaginal prolapse. She denies dysuria. Urinalysis trace blood, 0 leukocytes. I have discussed microscopic hematuria may be due to but not limited to kidney stones, BPH, cystitis, urinary tract malignancy. I have discussed work up to include evaluation of the urinary tract which may include imaging, further urine testing, and cystoscopy Plan--CT urogram, urine for cytology, follow-up office cystoscopy [facility] Medical History Esophageal spasm Hx of carcinoma of bladder Bladder carcinoma History of trigger finger Cervical radiculitis Chronic sinusitis GERD (gastroesophageal reflux disease) FRANCESCA (obstructive sleep apnea) CAD (coronary artery disease) History of primary hyperparathyroidism Non-toxic multinodular goiter Osteoporosis Pulmonary nodules H/O gastroesophageal reflux (GERD) HLD (hyperlipidemia) HTN (hypertension) COPD (chronic obstructive pulmonary disease) Asthma History of aneurysm Migraine Depression PTSD (post-traumatic stress disorder) History of panic attacks Anxiety Edema History of deviated nasal septum Medial epicondylitis of left elbow Fusion of spine, cervical region Surgical History History of carpal tunnel release Hx of cystoscopy H/O cervical spine surgery Hx of hand surgery Hx of right inguinal hernia repair History of hernia repair Hx of colonoscopy History of esophagogastroduodenoscopy (EGD) S/P repair of paraesophageal hernia H/O decompression of ulnar nerve Status post ablation of incompetent vein using laser History of cardiac catheterization History of eyelid surgery History of appendectomy History of parathyroidectomy History of cholecystectomy Hx of cataract surgery Hx of shoulder surgery S/P cubital tunnel release S/P arthroscopic surgery of right knee History of lumpectomy of both breasts History of hysterectomy Hx of adenoidectomy Hx of tonsillectomy Hx of eye surgery Family History Father Liver cancer Psoriasis Cancer Mental health disorder Mother Cervical cancer Ovarian cancer Heart attack Substance use disorder Social History Household Members: Children and None Housing: House Alcohol intake: current Alcohol intake frequency: does not drink Patient Tobacco Use Status: Former Tobacco user Tobacco use type: Cigarette e-Cigarette/Vaping Use: Never Used Second Hand Smoke Exposure: No service: No Current occupational status: employed 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, 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 Cognitive needs: No Hearing needs: No Vision needs: Yes Review of Systems Const All systems reviewed & are unremarkable except as noted in HPI and below Reports no additional complaints Eyes Reports no additional complaints ENT Reports no additional complaints Card Reports no additional complaints Resp Reports no additional complaints GI Reports no additional complaints Reports as per HPI Musc Reports no additional complaints Skin/Breast Reports system reviewed and no additional complaints, except as documented Neuro Reports no additional complaints Psych Reports no additional complaints Endo Reports no additional complaints Jesse/Lymph Reports no additional complaints Aller/Immun Reports no additional complaints Office Procedures Cystoscopy Consent Discussed risk and benefit or proposed procedure with the patient. Information consent for procedure given to the patient. Discussed technical aspects, risks, benefits and alternatives in full. Addressed all of the patient's questions and concerns regarding the procedure. The patient demonstrated knowledge and understanding. They wish to proceed with this procedure. Preparation The patient was prepped in the usual manner. A care transitions nurse was present and in the room. Genitalia was prepped with betadine solution in a sterile manner. Lid ocaine Jelly 2% was placed into the urethra and 16Fr flexible Olympus cystoscope was inserted into the meatus after adequate lubrication. Procedure Time out per protocol performed. Speculum used as indicated for adequate visualization of urethra, the flexible cystoscope is passed transurethrally: The bladder was inspected in its entirety with utilization retroflexion displaying: Tumor(s): no suspicious bladder lesions visualized Trabeculation: NA Mucosal Erthema: Orifices: normal shape and position Urethra: normal Cystoscopy findings: no suspicious bladder lesions visualized [id number] DISPOSABLE SCOPE URO-G FLEXIBLE SCOPE Procedure code (CPT) selection complete Office Meds lidocaine HCl 2 % mucosal jelly in applicator Performing Provider: Chloe Dodge MD Performing Location: [facility] [place] [facility] Administered by: Sander Victoria LPN on 10/07/24 09:53 Dose Route Admin Location Dispensed Lot Number Expiration Date [facility] [employer] Specialist 10 mL intra-urethral 20 mL nitrofurantoin monohydrate/macrocrystals 100 mg capsule Performing Provider: Chloe Dodge MD Performing Location: [facility] [place] [facility] Administered by: Sander Victoria LPN on 10/07/24 09:53 Dose Route Admin Location Dispensed Lot Number Expiration Date [facility] [employer] Specialist 100 mg PO 1 cap Results AMB Urinalysis, Automated UA Leukoctes 0 Jason/uL Last Edit by RAMSES Noe on 10/07/24 09:46 UA Nitrite Negative Last Edit by RAMSES Noe on 10/07/24 09:46 UA Urobilinogen 3.5 mg/dL Last Edit by RAMSES Noe on 10/07/24 09:4 6 UA Protein 0 mg/dL Last Edit by RAMSES Noe on 10/07/24 09:46 UA pH 6.0 Last Edit by RAMSES Noe on 10/07/24 09:46 UA Blood 25 Delfino/uL Last Edit by RAMSES Noe on 10/07/24 09:46 UA Specific Mozier 1.010 Last Edit by RAMSES Noe on 10/07/24 09: 46 UA Ketone Negative Last Edit by RAMSES Noe on 10/07/24 09:46 UA Bilirubin 0 mg/dL Last Edit by RAMSES Noe on 10/07/24 09:46 UA Glucose 0 mg/dL Last Edit by RAMSES Noe on 10/07/24 09:46 Results Reviewed Results Reviewed: Laboratory Last Values Urine pH (Auto) 6.0 10/07/24 09:45 Specific Mozier (Auto) 1.010 10/07/24 09:45 Urine Protein (Auto) 0 mg/dL 10/07/24 09:45 Glucose (UA)(Auto) 0 mg/dL 10/07/24 09:45 Urine Ketones (Auto) Negative 10/07/24 09:45 Urine Blood (Auto) 25 Delfino/uL 10/07/24 09:45 Urine Nitrite (Auto) Negative 10/07/24 09:45 Urine Bilirubin (Auto) 0 mg/dL 10/07/24 09:45 Urine Urobilinogen (Auto) 3.5 mg/dL 10/07/24 09:45 Leukocyte Esterase (Auto) 0 Jason/uL 10/07/24 09:45 Date of Service: 09/27/24 Normal we will do in US RETROPERITONEAL COMPLETE (RENAL) CLINICAL INFORMATION: Malignant neoplasm of the bladder.. COMPARISON: Correlated to CT abdomen pelvis dated July 15, 2023. TECHNIQUE: Real-time imaging of the kidneys and bladder. FINDINGS: RIGHT KIDNEY: 9 x 3 x 5 cm (SAG x AP x TRV). Normal echotexture. Normal renal cortical thickness. No hydronephrosis. No gross solid or cystic lesion detected. LEFT KIDNEY: 9 x 4 x 4 cm (SAG x AP x TRV). Normal echotexture normal renal cortical thickness. No hydronephrosis. No gross solid or cystic lesion detected. BLADDER: Fluid-filled. Bilateral ureteral jets are demonstrated. Prevoid bladder volume is 219 mL. Postvoid bladder volume is 10 mL. IMPRESSION: 10 cc of retained urine in a post void image. No hydronephrosis.. DERREK: 04/30/24 STATUS: COMP REQ : [id number] RECD: 04/30/[address]: Chloe Dodge MD COMP: 05/07/24-1037 ENTERED: 04/30/24-[address] [facility] [address]: Sachin Linares [facility] ORDERED: FISH Bladder Ca Test Result Flag Reference FISH Bladder Ca see note Order ID: [id number] Specimen Type: Urine Clinical Indication: NOT GIVEN RESULT: NEGATIVE RESULT FOR THE UROVYSION FISH ASSAY INTERPRETATION: A normal hybridization pattern was observed for chromosomes 3, 7, 9, and 17. This result is not indicative of bladder cancer according to the UroVysion Directional Insert ([employer]). Although the UroVysion test was designed to detect genetic changes associated with most bladder cancers, not all genetic changes can be detected by this test. The UroVysion test was designed for use on voided urine specimens as an aid for the initial diagnosis of bladder carcinoma in patients with hematuria and subsequent monitoring for tumor recurrence in patients previously diagnosed with bladder cancer. Collected: 08/19/23 Location: [facility] Received: 08/19/23 Diagnosis A. Bladder, left lateral wall, Transurethral resection: - Low-grade papillary urothelial carcinoma, noninvasive. - No muscularis propria identified. B. Bladder, random posterolateral wall, biopsy: Mild chronic cystitis; muscularis propria present. C. Bladder, random right lateral wall, biopsy: Mild chronic cystitis; muscularis propria present. Bladder, transurethral resection/biopsy (A) Procedure: Transurethral resection Tumor site: Left lateral wall Histologic type: Papillary carcinoma Histologic grade: Low-grade Muscularis propria: Not present Extent of invasion: Noninvasive Lymphovascular invasion: Not identified Date of Service: 07/15/23 EXAMINATION: CT ABDOMEN AND PELVIS WITHOUT AND WITH CONTRAST CLINICAL INFORMATION: Hematuria. COMPARISON: None available. DLP: 720 mGy-cm FINDINGS: LUNG BASES: The visualized lung bases are unremarkable. LIVER, GALLBLADDER, AND BILIARY TREE: The liver is normal in size, shape, and attenuation. No focal hepatic lesion or biliary ductal dilatation is present. Status post cholecystectomy. PANCREAS: Unremarkable. SPLEEN: Unremarkable. ADRENAL GLANDS: Unremarkable. KIDNEYS AND URETERS: The kidneys are normal in size, shape, and attenuation. 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 No hydronephrosis, hydroureter, or calculi seen. No perinephric stranding. No renal parenchymal masses are seen. The uroepithelium appears normal without evidence of masses. BLADDER: Unremarkable. GASTROINTESTINAL TRACT: There is extensive left-sided diverticular disease without diverticulitis. The small and large bowel are otherwise unremarkable. No evidence of appendicitis. ABDOMINAL WALL: No significant hernia is appreciated. LYMPH NODES: Normal. VASCULAR: Calcific atherosclerotic changes are present in the aorta and iliofemoral vessels. There is no evidence of an abdominal aortic aneurysm. PELVIC VISCERA: The uterus is not seen. An abnormal adnexal mass is not detected. No free intraperitoneal fluid is present. OSSEUS STRUCTURES: Degenerative changes are present in the lower thoracic spine as well as at L5-S1. No bony destructive lesions. IMPRESSION: 1. A cause for the patient's hematuria has not been found. Assessment & Plan Assessment & Plan (1) History of nicotine use: Code(s): Z87.891 - Personal history of nicotine dependence Category: Medical (2) Urinary frequency: Code(s): R35.0 - Frequency of micturition Category: Medical (3) Bladder cancer: Code(s): C67.9 - Malignant neoplasm of bladder, unspecified Category: Medical Plan Cystoscopy findings: WNL, no suspicious bladder lesions visualized. Cont surveillance. cysto in 6 months. The patient complains of intermittent urgency. We will send urine for surveillance culture and urine cytology. Orders: Orders AMB Cystoscopy Today N32.89 - Other specified disorders of bladder, R31.29 - Other microscopic hematuria, R35.0 - Frequency of micturition, R39.15 - Urgency of urination Urine Cytology Today N39.0 - Urinary tract infection, site not specified AMB Urinalysis Automated Today Z13.9 - Encounter for screening, unspecified Urine Culture Today A49.9 - Bacterial infection, unspecified, N39.0 - Urinary tract infection, site not specified Patient Instructions: The patient had an opportunity to ask questions regarding treatment plan. The patient expressed understanding and agreement with the above treatment plan. The patient is aware they should contact our office by phone for worsening of their current condition or the appearance of new symptoms. Compliance is encouraged with any medications and followup testing that is ordered. It is a privilege to be allowed the opportunity to participate in the urologic care of your patient. If you have any questions or concerns regarding treatment for the above conditions please do not hesitate to contact me. The office telephone contact is [phone]. This note is constructed in part using voice recognition software. While every effort has been made to ensure accuracy photographic specialist errors may have been included. Yours sincerely, Chloe Dodge MD Coding Level of Care Code Procedure Only Diagnoses History of nicotine use Z87.891 Urinary frequency R35.0 Bladder cancer C67.9 CPT Codes Cystoscopy - CPT: 16790-Luurxamxvz ([id number])
--- OUTSIDE RECORDS SUMMARY | 2024-10-07 10:05 | XMS_ITS | Patient Health Record ---
Author Organization [facility] Address [address] [place] [address] Care Team Providers Care Internal Corrosion Specialist Name Role Phone BEBE VELASCO M.D Primary Care Provider LIZANDRO Bean Unavailable [phone] Allergies Allergen (clinical drug ingredient) Drug/Non Drug Allergy documented on EMR Reaction Allergy Type Onset Date Status 12 Hour Nasal Magazine Unknown Drug Allergy Active risedronate Actonel Unknown [...] Status Risk Notes Problem Postmenopausal atrophic vaginitis (36041858) Postmenopausal atrophic vaginitis (N95.2) Active confirmed Problem Age-related osteoporosis (557550760) Age-related osteoporosis without current pathological fracture (M81.0) Active confirmed Problem Essential hypertension (64794064) Essential (primary) hypertension (I10) Active confirmed Problem Hyperlipidemia (48332249) Hyperlipidemia, unspecified (E78.5) Active confirmed Problem Uncomplicated asthma (disorder) (017492920) Unspecified asthma, uncomplicated (J45.909) Active confirmed Problem Gastro-esophagea l reflux disease without esophagitis (K21.9) Active confirmed Plan Of Treatment No Information Insurance Providers Payer Name Payer Address Payer Phone Subscriber Number Group Number Insured Name Patient Relationship to Insured Coverage Start Date Coverage End Date MEDICARE [address] [facility], [place] [id number] JORGITO MANCILLA Self - patient is the [...]
--- OUTSIDE RECORDS SUMMARY | 2024-10-07 10:05 | XMS_ITS | Patient Health Record ---
Author Organization [facility] Address [address] [place] [address] Care Team Providers Care Lawn Care Technician Name Role Phone Augustine Carrera M.D. Primary Care Provider Ruth Manas Blas Unavailable [phone] Allergies Allergen (clinical drug ingredient) Drug/Non Drug [...] rofecoxib Vioxx (uncoded) Unknown Allergy Acti ve Latex latex (uncoded) Unknown Allergy Acti ve [...] Furosemide 10mg Acti ve Qvar 40mcg Active Enders-Smoothe/FS Body 0.01% Active Vitamin D 2400 Activ e Losartan Potassium 25mg Active ZyrTEC 10mg Active Ventolin HFA Active Multi Vitamin/Minerals Active Artificial Tears Act hai Problems Problem Type SNOMED Code ICD Code Onset Dates Problem Status W/U Status Risk Notes Problem Irritable bowel syndrome (55651412) Irritable bowel syndrome (564.1) Active confirmed Problem Diarrhea (60228332) Diarrhea (787.91) Active confirmed Problem Generalized abdominal pain (007312656) Abdominal pain, generalized (789.07) Active confirmed Problem Constipation (47929346) Constipation (564.00) Active confirmed Problem Gastroesophageal reflux disease (042207383) GERD (gastroesophage al reflux disease) (530.81) Active confirmed Problem Epigastric pain (69970322) Abdominal discomfort, epigastric (789.06) Active confirmed Problem Gas (53520007) Gas (787.3) Active confirmed Plan Of Treatment Future Test Test Name Order Date UPPER GI ENDOSCOPY 08/15/2011 Insurance Providers Payer Name Payer Address Payer Phone Subscriber Number Group Number Insured Name Patient Relationship to Insured Coverage Start Date Coverage End Date MEDICARE OF [place] [address] [place] [address] [id number] JORGITO ALCANTARA Self - patient is the insured MEDICAID OF [facility] [address] [place] [address] [id number] JORGITO ALCANTARA Self - patient is the insured Medical (General) History Medical History History ICD Code screening colonoscopy 07-23-2006--neg. fo r polyps EGD 06-11-1999 and 02/17 negative for signi ficant esophagitis nor ulcer disease GERD hx of duodenal ulcer in the s Denies [place],DM,CVA,renal disease irregular heart beat elevated chloresterol hypertension osteoporosis Hiatal hernia Denies [place],DM,CVA,renal disease Mild asthma Anxiety Negative cardiac catheterization [...]
--- OUTSIDE RECORDS SUMMARY | 2024-10-07 10:05 | XMS_ITS | Clinical Summary ---
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 Gait is steady. Review [...] hand and has an appointment to see [facility] on July 14. She is welcome [...] using it. C-spine MRI done yesterday at [facility] does not show any significant central or [...] intact. X-rays of the cervical spine from [facility] dated 2024 show good position of her C4-5 and C5-C6-C7 plates but there does not appear to be robust bone growth across the disc spaces. I will discuss with Dr. Rodriguez and likely order a bone growth stimulator. Meantime, she is going to get in contact with [facility]. We talked about acupuncture and [...] Procedure Name Priority Date/Time Associated Diagnosis Comments [facility] DEXA AXIAL SKELETON Routine 02/02/2018 9:04 AM EST Encounter for screening for osteoporosis [facility] SCREENING DIGITAL Routine 02/02/2018 8:35 AM EST Encounter for screening mammogram for malignant neoplasm of breast from Last 3 Months or Most Recently Relevant to Health Maintenance Results * [facility] DEXA AXIAL SKELETON (02/02/2018 9:04 AM EST) Anatomical Region Laterality Modality Mammography 02/02/2018 7:11 AM EST Narrative 02/02/2018 9:04 AM EST [facility] Diagnostic Imaging Department [address] [place] [address] Patient: ADALI HOLMAN Hari /Age/Sex: 1950 - 67 - F Unit#: [id number] Location/Status: [facility] CLI Mnemonic/[facility] Ordering Physician: KATERINA TOLBERT MD [facility] [...] probability of hip fracture of 11.3%. Code 59110 Dictating Physician: GALINA KUO MD Electronically Signed by: GALINA KUO MD Dic Date/Time: 02/02/18901 Sign date/Time: 02/02/18903 Procedure Note Galina Kuo MD - 01/29/2022 [facility] Diagnostic Imaging Department [address] [place] [address] Patient: ADALI HOLMAN Hari /Age/Sex: 1950 67 - F Unit#: [id number] Location/Status: [facility]/REG CLI Mnemonic[facility] Ordering Physician: KATERINA TOLBERT MD [facility] Dexa Axial Skeleton - 02/02/18748 [...] density of the femurs bilaterally is 0.707 gm/bb7foddb is 70% of that of young normals [...] probability of hip fracture of 11.3%. Code 16674 Dictating Physician: GALINA KUO MD Electronically Signed by: GALINA KUO MD Dic Date/Time: 02/02/18901 Sign date/Time: 02/02/18903 us Katerina Tolbert MD IMG BI PROCEDURES Final Re sult * [facility] SCREENING DIGITAL (02/02/2018 8:35 AM EST) Anatomical Region Laterality Modality Mammography 02/02/2018 7:10 AM EST Narrative 02/02/2018 8:35 AM EST [facility] Diagnostic Imaging Department [address] [place] [address] Patient: ADALI HOLMAN I /Age/Sex: 1950 - 67 - F Unit#: [id number] Location/Status: [facility]REG CLI Mnemonic/Ordering Site: [facility] Ordering Physician: JEANETTE CARRERA MD [facility] Screening Digital - 02/02/18 - 0749 INDICATION: SCREENING COMPARISON: [facility] mammograms dating back to 01/12/2013 FINDINGS: CC and MLO views of the breasts were obtained, using full field digital mammography with 3D tomosynthesis views in the MLO projection. Computer aided detection with the [employer] 7.2-H was employed. Benign bilateral breast biopsies [...] a target date for the next mammogram. [id number] / [id number]) , [id number] Dictating Physician: TONI SHRESTHA MD Electronically Signed by: TONI SHRESTHA MD Dic Date/Time: 02/02/18829 Sign date/Time: 02/02/18 08 Procedure Note Toni Shrestha MD - 01/29/2022 [facility] Diagnostic Imaging Department [address] [place], [place] [address] Patient: ADALI HOLMAN I /Age/Sex: 1950 67 - Unit#: [id number] Location/Status: [facility] CLI Mnemonic/Ordering Site: [facility] Ordering Physician: JEANETTE CARRERA MD [facility] Screening Digital - 02/02/18 - 49 INDICATION: SCREENING COMPARISON: [facility] mammograms dating back to 01/12/2013 FINDINGS: CC and MLO views of the breasts were obtained, using full field digital mammography with 3D tomosynthesis views in the MLO projection. Computeraided detection with the [employer] 7.2-H was employed. Benign bilateral breast biopsies [...] a target date for the next mammogram. 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
== END 2024-10-07 10:30 | disposition home or self-care (01) ==
LOC: HO.HUSH 09:07
PROVIDERS: PCP Nurse Practitioner Family; Visit Provider Urology
DX: R31.29 Other microscopic hematuria (principal); R35.0 Frequency of micturition; R39.15 Urgency of urination; N32.89 Other specified disorders of bladder; Z87.891 Personal history of nicotine dependence; C67.9 Malignant neoplasm of bladder, unspecified; Z13.9 Encounter for screening, unspecified
CPT/HCPCS: 52000

== ENCOUNTER 2024-10-14 06:26 | Outpatient (REF) | payer OTHER, SELFPAY ==
--- NOTE | ~2024-10-14 | XR_ITS ---
EXAMINATION: XR CHEST CLINICAL INFORMATION: R06.02 - Shortness of breath COMPARISON: May 08, 2023 TECHNIQUE: 2 views of the chest were obtained. FINDINGS: Anterior plate related to ACDF are noted in the mid to lower cervical spine. Lungs are clear. Heart size is normal. No pleural effusion is apparent. Mild degenerative changes are evident in the thoracic spine. XR/XR chest 2V IMPRESSION: No interval change, no acute disease. Electronically signed by: Efrain Martínez MD 10/14/2024 12:23 PM EDT
--- OUTSIDE RECORDS SUMMARY | 2024-10-14 06:29 | XMS_ITS | Clinical Summary ---
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 Gait is steady. Review [...] hand and has an appointment to see [facility] on July 14. She is welcome [...] using it. C-spine MRI done yesterday at [facility] does not show any significant central [...] intact. X-rays of the cervical spine from [facility] dated 2024 show good position of her C4-5 and C5-C6-C7 plates but there does not appear to be robust bone growth across the disc spaces. I will discuss with Dr. Rodriguez and likely order a bone growth stimulator. Meantime, she is going to get in contact with [facility]. We talked about acupuncture and [...] Procedure Name Priority Date/Time Associated Diagnosis Comments [facility] DEXA AXIAL SKELETON Routine 02/02/2018 9:04 AM EST Encounter for screening for osteoporosis [facility] SCREENING DIGITAL Routine 02/02/2018 8:35 AM EST Encounter for screening mammogram for malignant neoplasm of breast from Last 3 Months or Most Recently Relevant to Health Maintenance Results * [facility] DEXA AXIAL SKELETON (02/02/2018 9:04 AM EST) Anatomical Region Laterality Modality Mammography 02/02/2018 7:11 AM EST Narrative 02/02/2018 9:04 AM EST [facility] Diagnostic Imaging Department [address] [place] [address] Patient: ADALI HOLMAN Hari /Age/Sex: 1950 - 67 - F Unit#: [id number] Location/Status: [facility] CLI Mnemonic/Ordering [facility] Ordering Physician: KATERINA TOLBERT MD [facility] Dexa [...] probability of hip fracture of 11.3%. Code 98462 Dictating Physician: GALINA KUO MD Electronically Signed by: GALINA KUO MD Dic Date/Time: 02/02/18901 Sign date/Time: 02/02/18903 Procedure Note Galina Kuo MD - 01/29/2022 [facility] Diagnostic Imaging Department [address] [place] [address] Patient: ADALI HOLMAN Hari /Age/Sex: 1950 67 - F Unit#: [id number] Location/Status: [facility]/REG CLI Mnemonic/[facility] Ordering Physician: KATERINA TOLBERT MD [facility] Dexa Axial Skeleton - 02/02/18748 HISTORY: [...] density of the femurs bilaterally is 0.707 gm/ps8vcdqj is 70% of that of young normals [...] probability of hip fracture of 11.3%. Code 84510 Dictating Physician: GALINA KUO MD Electronically Signed by: GALINA KUO MD Dic Date/Time: 02/02/18901 Sign date/Time: 02/02/18903 us Katerina Tolbert MD IMG BI PROCEDURES Final Re sult * [facility] SCREENING DIGITAL (02/02/2018 8:35 AM EST) Anatomical Region Laterality Modality Mammography 02/02/2018 7:10 AM EST Narrative 02/02/2018 8:35 AM EST [facility] Diagnostic Imaging Department [address] [place] [address] Patient: ADALI HOLMAN I /Age/Sex: 1950 - 67 - F Unit#: [id number] Location/Status: [facility]REG CLI Mnemonic/Ordering Site: [facility] Ordering Physician: JEANETTE CARRERA MD [facility] Screening Digital - 02/02/18 - 0749 INDICATION: SCREENING COMPARISON: [facility] mammograms dating back to 01/12/2013 FINDINGS: CC and MLO views of the breasts were obtained, using full field digital mammography with 3D tomosynthesis views in the MLO projection. Computer aided detection with the [employer] 7.2-H was employed. Benign bilateral breast biopsies [...] a target date for the next mammogram. G0007 / [id number]) , 20948 Dictating Physician: TONI SHRESTHA MD Electronically Signed by: TONI SHRESTHA MD Dic Date/Time: 02/02/18829 Sign date/Time: 02/02/18 08 Procedure Note Toni Shrestha MD - 01/29/2022 [facility] Diagnostic Imaging Department [address] [place], [place] [address] Patient: ADALI HOLMAN I /Age/Sex: 1950 67 - Unit#: [id number] Location/Status: [facility] CLI Mnemonic/Ordering Site: [facility] Ordering Physician: JEANETTE CARRERA MD [facility] Screening Digital - 02/02/18 - 49 INDICATION: SCREENING COMPARISON: [facility] mammograms dating back to 01/12/2013 FINDINGS: CC and MLO views of the breasts were obtained, using full field digital mammography with 3D tomosynthesis views in the MLO projection. Computeraided detection with the [employer] 7.2-H was employed. Benign bilateral breast biopsies [...] a target date for the next mammogram. 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
--- OUTSIDE RECORDS SUMMARY | 2024-10-14 06:29 | XMS_ITS | Patient Health Record ---
Author Organization [facility] Address [address] [place] [address] Care Team Providers Care Graphics Software Engineer Name Role Phone BEBE VELASCO M.D Primary Care Provider LIZANDRO Bean Unavailable [phone] Allergies Allergen (clinical drug ingredient) Drug/Non Drug Allergy documented on EMR Reaction Allergy Type Onset Date Status 12 Hour Nasal [place] Unknown Drug Allergy Active risedronate Actonel Unknown [...] Status Risk Notes Problem Postmenopausal atrophic vaginitis (88531371) Postmenopausal atrophic vaginitis (N95.2) Active confirmed Problem Age-related osteoporosis (517742826) Age-related osteoporosis without current pathological fracture (M81.0) Active confirmed Problem Essential hypertension (06396780) Essential (primary) hypertension (I10) Active confirmed Problem Hyperlipidemia (80161422) Hyperlipidemia, unspecified (E78.5) Active confirmed Problem Uncomplicated asthma (disorder) (062639739) Unspecified asthma, uncomplicated (J45.909) Active confirmed Problem Gastro-esophageal reflux disease without esophagitis (893778429) Gastro-esophageal reflux disease without esophagitis (K21.9) Active confirmed Plan Of Treatment No Information Insurance Providers Payer Name Payer Address Payer Phone Subscriber Number Group Number Insured Name Patient Relationship to Insured Coverage Start Date Coverage End Date MEDICARE [address] [facility] [place] [id number] LAURENT JORGITO Self - patient is the [...]
--- OUTSIDE RECORDS SUMMARY | 2024-10-14 06:29 | XMS_ITS | Patient Health Record ---
Author Organization [facility] Address [address] [place] [address] Care Team Providers Care Right Of Way Manager Name Role Phone Augustine Carrera M.D. Primary Care Provider Ruth Manas Blas Unavailable [phone] Allergies Allergen (clinical drug ingredient) Drug/Non Drug [...] Furosemide 10mg Acti ve Qvar 40mcg Active [place]/FS Body 0.01% Active Vitamin D 2400 Activ e Losartan Potassium 25mg Active ZyrTEC 10mg Active Ventolin HFA Active Multi Vitamin/Minerals Active Artificial Tears Act hai Problems Problem Type SNOMED Code ICD Code Onset Dates Problem Status W/U Status Risk Notes Problem Irritable bowel syndrome (48608595) Irritable bowel syndrome (564.1) Active confirmed Problem Diarrhea (67159570) Diarrhea (787.91) Active confirmed Problem Generalized abdominal pain (780791427) Abdominal pain, generalized (789.07) Active confirmed Problem Constipation (74705488) Constipation (564.00) Active confirmed Problem Gastroesophageal reflux disease (945505935) GERD (gastroesophage al reflux disease) (530.81) Active confirmed Problem Epigastric pain (45509432) Abdominal discomfort, epigastric (789.06) Active confirmed Problem Gas (43819172) Gas (787.3) Active confirmed Plan Of Treatment Future Test Test Name Order Date UPPER GI ENDOSCOPY 08/15/2011 Insurance Providers Payer Name Payer Address Payer Phone Subscriber Number Group Number Insured Name Patient Relationship to Insured Coverage Start Date Coverage End Date MEDICARE OF [place] [address] [place] [address] [id number] JORGITO ALCANTARA Self - patient is the insured MEDICAID OF [facility] [address] [place] [address] [id number] JORGITO ALCANTARA Self - patient is the insured Medical (General) History Medical History History ICD Code screening colonoscopy 07-23-2006--neg. fo r polyps EGD 06-11-1999 and 02/17 negative for signi ficant esophagitis nor ulcer disease GERD hx of duodenal ulcer in the s Denies AL,DM,CVA,renal disease irregular heart beat elevated chloresterol hypertension osteoporosis Hiatal hernia Denies AL,DM,CVA,renal disease Mild asthma Anxiety Negative cardiac catheterization [...]
== END 2024-10-14 06:27 | disposition home or self-care (01) ==
LOC: HO.XRAY 06:26
PROVIDERS: PCP Nurse Practitioner Family; Visit Provider Internal Medicine
DX: G90.511 Complex regional pain syndrome I of right upper limb (principal); R06.02 Shortness of breath
CPT/HCPCS: 64510; 71046; J2003; J2795

== ENCOUNTER 2024-10-14 09:54 | Outpatient (AMB) | payer OTHER, SELFPAY ==
[2024-10-14 10:01] VITALS: BP 142/82; PULSE 85; RESP 16; O2SAT 97
--- NOTE | 2024-10-14 10:01 | A.OFFVIS_ITS ---
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: No Allergies dexlansoprazole (From DEXILANT) Allergy (Severe, Verified 10/14/24 10:02) dizziness, change in HR risedronate sodium (From ACTONEL) Allergy (Severe, Verified 10/14/24 10:02) chest discomfort Hyzcnyu-RGE-ScX Reductase Inhibitor (QPBGLCT-YPX-FQG REDUCTASE INHIBITOR) Allergy (Severe, Verified 10/14/24 10:02) JOINT PAIN tramadol (TRAMADOL) Allergy (Severe, Verified 10/14/24 10:02) THROAT TIGHTNESS amlodipine (AMLODIPINE) Allergy (Intermediate, Verified 10/14/24 10:02) PALIPITATIONS Atrovent Allergy (Intermediate, Verified 10/14/24 10:02) Cough baclofen (BACLOFEN) Allergy (Intermediate, Verified 10/14/24 10:02) LETHARGY Beta-Blockers (Beta-Adrenergic Bloc Allergy (Intermediate, Verified 10/14/24 10:02) BRADYCARDIA budesonide (From SYMBICORT) Allergy (Intermediate, Verified 10/14/24 10:02) HOARSENESS Chocolate Allergy (Intermediate, Verified 10/14/24 10:02) GERD ezetimibe (From ZETIA) Allergy (Intermediate, Verified 10/14/24 10:02) JOINT PAIN, ELEVATED CPK fluticasone (From ADVAIR DISKUS) Allergy (Intermediate, Verified 10/14/24 10:02) HTN glucosamine Allergy (Intermediate, Verified 10/14/24 10:02) LE edema ibandronate sodium (From BONIVA) Allergy (Intermediate, Verified 10/14/24 10:02) CHEST PAIN latex (LATEX) Allergy (Intermediate, Verified 10/14/24 10:02) RASH-SENSITIVITY lisinopril (LISINOPRIL) Allergy (Intermediate, Verified 10/14/24 10:02) COUGH, really bad cough meloxicam (From MOBIC) Allergy (Intermediate, Verified 10/14/24 10:02) GI UPSET mometasone furoate (From DULERA) Allergy (Intermediate, Verified 10/14/24 10:02) COUGH niacin Allergy (Intermediate, Verified 10/14/24 10:02) Flushing Penicillins (PENICILLINS) Allergy (Intermediate, Verified 10/14/24 10:02) RASH pregabalin (From LYRICA) Allergy (Intermediate, Verified 10/14/24 10:02) GERD flare up raloxifene (From EVISTA) Allergy (Intermediate, Verified 10/14/24 10:02) GERD rofecoxib (From Vioxx) Allergy (Intermediate, Verified 10/14/24 10:02) ankle swelling salmeterol (From ADVAIR DISKUS) Allergy (Intermediate, Verified 10/14/24 10:02) HTN scallops (SCALLOPS) Allergy (Intermediate, Verified 10/14/24 10:02) NAUSEA & VOMITING sertraline (From ZOLOFT) Allergy (Intermediate, Verified 10/14/24 10:02) SKIN CRAWLING spironolactone (SPIRONOLACTONE) Allergy (Intermediate, Verified 10/14/24 10:02) RASH, ?? psoriasis strawberry (STRAWBERRY) Allergy (Intermediate, Verified 10/14/24 10:02) ITCHING tiotropium (From SPIRIVA WITH HANDIHALER) Allergy (Intermediate, Verified 10/14/24 10:02) RAW THROAT, pharyngitis verapamil (VERAPAMIL) Allergy (Intermediate, Verified 10/14/24 10:02) IRREGULAR HEARTBEAT esomeprazole (Nexium) Allergy (Mild, Verified 10/14/24 10:02) did not resolve GERD naproxen (From ALEVE) Allergy (Mild, Verified 10/14/24 10:02) FLUSH omeprazole Allergy (Mild, Verified 10/14/24 10:02) did not resolve GERD tacrolimus Allergy (Mild, Verified 10/14/24 10:02) Rash adhesive (ADHESIVE) Allergy (Unknown, Verified 10/14/24 10:02) RASH doxycycline (DOXYCYCLINE) Allergy (Unknown, Verified 10/14/24 10:02) SEVERE NOYOLA, HEARTBURN, joint pain gabapentin (From NEURONTIN) Allergy (Unknown, Verified 10/14/24 10:02) leg swelling, SOB metoclopramide (From REGLAN) Allergy (Unknown, Verified 10/14/24 10:02) LETHARGY monosodium glutamate (MSG) Allergy (Unknown, Verified 10/14/24 10:02) HEADACHE, increased HR lifitegrast (From Xiidra) Allergy (Verified 10/14/24 10:02) blurred vision, headache, eye swelling metoprolol Adverse Reaction (Severe, Verified 10/14/24 10:02) Severe bradycardia alendronate sodium (From Fosamax) Adverse Reaction (Intermediate, Verified 10/14/24 10:02) Joint Pain amitriptyline Adverse Reaction (Intermediate, Verified 10/14/24 10:02) Agitated cyclosporine (From Cequa) Adverse Reaction (Intermediate, Verified 10/14/24 10:02) Eye Swelling fluticasone furoate (From Trelegy Ellipta) Adverse Reaction (Intermediate, Verified 10/14/24 10:02) asthma exacerbation perfluorohexyloctane (From Miebo) Adverse Reaction (Intermediate, Verified 10/14/24 10:02) Eye Swelling tobramycin (From Tobrex) Adverse Reaction (Intermediate, Verified 10/14/24 10:02) Eye Swelling umeclidinium (From Trelegy Ellipta) Adverse Reaction (Intermediate, Verified 10/14/24 10:02) asthma exacerbation vilanterol (From Trelegy Ellipta) Adverse Reaction (Intermediate, Verified 10/14/24 10:02) asthma exacerbation azelastine Adverse Reaction (Mild, Verified 10/14/24 10:02) Gastrointestinal Upset hi Adverse Reaction (Intermediate, Uncoded 10/14/24 10:02) Itchy Eyes Sulindac Adverse Reaction (Intermediate, Uncoded 10/14/24 10:02) Nausea, pain HPI HPI (R) Stellate Ganglion Block: Details: Patient presents for scheduled procedure. Denies any recent cough, cold, infection, fever or other significant changes in medical history since last office visit. FORMERLY [facility] Medical History Esophageal spasm Hx of carcinoma of bladder Bladder carcinoma History of trigger finger Cervical radiculitis Chronic sinusitis GERD (gastroesophageal reflux disease) FRANCESCA (obstructive sleep apnea) CAD (coronary artery disease) History of primary hyperparathyroidism Non-toxic multinodular goiter Osteoporosis Pulmonary nodules H/O gastroesophageal reflux (GERD) HLD (hyperlipidemia) HTN (hypertension) COPD (chronic obstructive pulmonary disease) Asthma History of aneurysm Migraine Depression PTSD (post-traumatic stress disorder) History of panic attacks Anxiety Edema History of deviated nasal septum Medial epicondylitis of left elbow Fusion of spine, cervical region Surgical History History of carpal tunnel release Hx of cystoscopy H/O cervical spine surgery Hx of hand surgery Hx of right inguinal hernia repair History of hernia repair Hx of colonoscopy History of esophagogastroduodenoscopy (EGD) S/P repair of paraesophageal hernia H/O decompression of ulnar nerve Status post ablation of incompetent vein using laser History of cardiac catheterization History of eyelid surgery History of appendectomy History of parathyroidectomy History of cholecystectomy Hx of cataract surgery Hx of shoulder surgery S/P cubital tunnel release S/P arthroscopic surgery of right knee History of lumpectomy of both breasts History of hysterectomy Hx of adenoidectomy Hx of tonsillectomy Hx of eye surgery Family History Father Liver cancer Psoriasis Cancer Mental health disorder Mother Cervical cancer Ovarian cancer Heart attack Substance use disorder Social History Household Members: Children and None Housing: House Alcohol intake: current Alcohol intake frequency: does not drink Patient Tobacco Use Status: Former Tobacco user Tobacco use type: Cigarette e-Cigarette/Vaping Use: Never Used Second Hand Smoke Exposure: No service: No Current occupational status: employed 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 The patient was placed in the supine position with a thoracolumbar roll. The patient was prepped and draped in a sterile manner. The neck anatomy was identified with the ultrasound machine. The right C7 transverse process, carotid artery, IJ and longus colli muscle were identified. A 21G spinal needle was inserted and advanced in real time under ultrasound guidance to the body of the longus colli muscle. There was no evidence of paresthesia, heme, or CSF. An injection was performed with 9 ml of 0.25% ropivicaine and 0.25% lidocaine. This was administered over a two to three minute period with frequent aspirations, all of which were negative. Post procedure patient had a positive Jocelynn's syndrome and hoarseness. Patient reported warmness in the right arm. There was no evidence of motor blockade. Following the procedure the patient reported shortness of breath and coughing. The patient was observed for 1 hour following the procedure. Serial vital signs were within normal limits. Her oxygen saturation was maintained at 98% throughout her observation. Breath sounds were clear and equal on both sides. There was no upper airway stridor. She took 2 puffs of her albuterol inhaler directly and an additional 2 puffs through a chamber. She was sent for a chest x-ray which was within normal limits. Ambulatory sats remained above 96%. The patient was discharged home after being given discharge instructions. Time Out: Immediately prior to the procedure, the following was verbally confirmed that there is a signed consent form and that the correct patient, planned procedure, site and side are consistent with documentation and that necessary equipment and/or blood products are available prior to the start of the case. Complications: none EBL: <2 cc [id number] - Stellate Ganglion Procedure code (CPT) selection complete Assessment & Plan Assessment & Plan (1) CRPS (complex regional pain syndrome), type I, upper: Code(s): G90.519 - Complex regional pain syndrome I of unspecified upper limb Category: Medical (2) Shortness of breath: Code(s): R06.02 - Shortness of breath Category: Medical Plan Patient is status post right stellate ganglion block. Patient tolerated procedure well and was discharged home in stable condition with discharge instructions. All questions were answered. We will follow-up via telephone or in clinic to assess response to therapy. A follow-up appointment was made during today's visit. 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
[2024-10-14 11:03] VITALS: BP 140/84; PULSE 81; RESP 16; O2SAT 98
[2024-10-14 11:40] VITALS: BP 144/88; PULSE 77; RESP 16; O2SAT 98
== END 2024-10-14 11:07 | disposition home or self-care (01) ==
LOC: HO.PMCPRC 09:54
PROVIDERS: PCP Nurse Practitioner Family; Visit Provider Internal Medicine
DX: G90.519 Complex regional pain syndrome I of unspecified upper limb (principal); R06.02 Shortness of breath
CPT/HCPCS: 64510; 76942

== ENCOUNTER → 2024-10-14 12:07 | Outpatient (BNV) | payer OTHER, SELFPAY | PROVIDERS: PCP Nurse Practitioner Family; Visit Provider Radiology Diagnostic Radiology | DX: R06.02 Shortness of breath (principal) | CPT/HCPCS: 71046 ==

== ENCOUNTER 2024-10-19 07:59 | Outpatient (AMB) | payer OTHER, SELFPAY ==
[2024-10-19 08:06] VITALS: BP 138/84; PULSE 91; RESP 16; TEMP 36.6; O2SAT 99; BMI 32.5
--- NOTE | 2024-10-19 08:06 | MHC.PC.OV ---
Vital Signs 10/19/24 08:06 Height 4 ft 11 in Weight 161 lb BMI 32.5 BP 138/84 Blood Pressure Location Lt brachial Position Sitting Respiration 16 Pulse 91 Pulse Source Pulse Oximeter Temp 97.9 F Temp Source Oral Pulse Oximetry (%) 99 Oxygen Delivery Method Room Air Intake Visit Reasons: 4m F/u Cotton Stripper Required: No Accompanied by: Self / Same As Patient Allergies dexlansoprazole (From DEXILANT) Allergy (Severe, Verified 10/19/24 08:08) dizziness, change in HR risedronate sodium (From ACTONEL) Allergy (Severe, Verified 10/19/24 08:08) chest discomfort Nvahrxs-QKP-[id number] Reductase Inhibitor ([id number] REDUCTASE INHIBITOR) Allergy (Severe, Verified 10/19/24 08:08) JOINT PAIN tramadol (TRAMADOL) Allergy (Severe, Verified 10/19/24 08:08) THROAT TIGHTNESS amlodipine (AMLODIPINE) Allergy (Intermediate, Verified 10/19/24 08:08) PALIPITATIONS Atrovent Allergy (Intermediate, Verified 10/19/24 08:08) Cough baclofen (BACLOFEN) Allergy (Intermediate, Verified 10/19/24 08:08) LETHARGY Beta-Blockers (Beta-Adrenergic Bloc Allergy (Intermediate, Verified 10/19/24 08:08) BRADYCARDIA budesonide (From SYMBICORT) Allergy (Intermediate, Verified 10/19/24 08:08) HOARSENESS Chocolate Allergy (Intermediate, Verified 10/19/24 08:08) GERD ezetimibe (From ZETIA) Allergy (Intermediate, Verified 10/19/24 08:08) JOINT PAIN, ELEVATED CPK fluticasone (From ADVAIR DISKUS) Allergy (Intermediate, Verified 10/19/24 08:08) HTN glucosamine Allergy (Intermediate, Verified 10/19/24 08:08) LE edema ibandronate sodium (From BONIVA) Allergy (Intermediate, Verified 10/19/24 08:08) CHEST PAIN latex (LATEX) Allergy (Intermediate, Verified 10/19/24 08:08) RASH-SENSITIVITY lisinopril (LISINOPRIL) Allergy (Intermediate, Verified 10/19/24 08:08) COUGH, really bad cough meloxicam (From MOBIC) Allergy (Intermediate, Verified 10/19/24 08:08) GI UPSET mometasone furoate (From DULERA) Allergy (Intermediate, Verified 10/19/24 08:08) COUGH niacin Allergy (Intermediate, Verified 10/19/24 08:08) Flushing Penicillins (PENICILLINS) Allergy (Intermediate, Verified 10/19/24 08:08) RASH pregabalin (From LYRICA) Allergy (Intermediate, Verified 10/19/24 08:08) GERD flare up raloxifene (From EVISTA) Allergy (Intermediate, Verified 10/19/24 08:08) GERD rofecoxib (From Vioxx) Allergy (Intermediate, Verified 10/19/24 08:08) ankle swelling salmeterol (From ADVAIR DISKUS) Allergy (Intermediate, Verified 10/19/24 08:08) HTN scallops (SCALLOPS) Allergy (Intermediate, Verified 10/19/24 08:08) NAUSEA & VOMITING sertraline (From ZOLOFT) Allergy (Intermediate, Verified 10/19/24 08:08) SKIN CRAWLING spironolactone (SPIRONOLACTONE) Allergy (Intermediate, Verified 10/19/24 08:08) RASH, ?? psoriasis strawberry (STRAWBERRY) Allergy (Intermediate, Verified 10/19/24 08:08) ITCHING tiotropium (From SPIRIVA WITH HANDIHALER) Allergy (Intermediate, Verified 10/19/24 08:08) RAW THROAT, pharyngitis verapamil (VERAPAMIL) Allergy (Intermediate, Verified 10/19/24 08:08) IRREGULAR HEARTBEAT esomeprazole (Nexium) Allergy (Mild, Verified 10/19/24 08:08) did not resolve GERD naproxen (From ALEVE) Allergy (Mild, Verified 10/19/24 08:08) FLUSH omeprazole Allergy (Mild, Verified 10/19/24 08:08) did not resolve GERD tacrolimus Allergy (Mild, Verified 10/19/24 08:08) Rash adhesive (ADHESIVE) Allergy (Unknown, Verified 10/19/24 08:08) RASH doxycycline (DOXYCYCLINE) Allergy (Unknown, Verified 10/19/24 08:08) SEVERE NOYOLA, HEARTBURN, joint pain gabapentin (From NEURONTIN) Allergy (Unknown, Verified 10/19/24 08:08) leg swelling, SOB metoclopramide (From REGLAN) Allergy (Unknown, Verified 10/19/24 08:08) LETHARGY monosodium glutamate (MSG) Allergy (Unknown, Verified 10/19/24 08:08) HEADACHE, increased HR lifitegrast (From Xiidra) Allergy (Verified 10/19/24 08:08) blurred vision, headache, eye swelling metoprolol Adverse Reaction (Severe, Verified 10/19/24 08:08) Severe bradycardia alendronate sodium (From Fosamax) Adverse Reaction (Intermediate, Verified 10/19/24 08:08) Joint Pain amitriptyline Adverse Reaction (Intermediate, Verified 10/19/24 08:08) Agitated cyclosporine (From Cequa) Adverse Reaction (Intermediate, Verified 10/19/24 08:08) Eye Swelling fluticasone furoate (From Trelegy Ellipta) Adverse Reaction (Intermediate, Verified 10/19/24 08:08) asthma exacerbation perfluorohexyloctane (From Miebo) Adverse Reaction (Intermediate, Verified 10/19/24 08:08) Eye Swelling tobramycin (From Tobrex) Adverse Reaction (Intermediate, Verified 10/19/24 08:08) Eye Swelling umeclidinium (From Trelegy Ellipta) Adverse Reaction (Intermediate, Verified 10/19/24 08:08) asthma exacerbation vilanterol (From Trelegy Ellipta) Adverse Reaction (Intermediate, Verified 10/19/24 08:08) asthma exacerbation azelastine Adverse Reaction (Mild, Verified 10/19/24 08:08) Gastrointestinal Upset hi Adverse Reaction (Intermediate, Uncoded 10/14/24 10:02) Itchy Eyes Sulindac Adverse Reaction (Intermediate, Uncoded 10/14/24 10:02) Nausea, pain Medication List - Last Reconciled 10/19/24 by HALIE Mcmahon- acetaminophen ER (Tylenol Arthritis Pain) 650 mg PO Q12H aspirin (Adult Aspirin Regimen) 81 mg PO DAILY beclomethasone dipropionate 80 mcg/actuation (Qvar RediHaler) 1 inh inhalation BID 30 days Bifidobacterium infantis (Align (B.infantis)) 4 mg PO DAILY cetirizine (Zyrtec) 10 mg PO DAILY PRN cholecalciferol (vitamin D3) 25 mcg PO DAILY 30 days cyclosporine 0.05% (Restasis) 1 drp ophthalmic (eye) Q12H denosumab (Prolia) 60 mg subcut [id number] dextran 70-hypromellose (PF) 0.1-0.3 % (Artificial Tears (PF)) 1 drp ophthalmic (eye) BEDTIME docusate sodium (Colace) 100 mg PO BID flunisolide 2 sprays intranasal BID PRN levalbuterol tartrate 45 mcg/actuation 2 puffs inhalation Q4H PRN lorazepam (Ativan) 0.5 mg PO BID PRN losartan 50 mg PO DAILY losartan-hydrochlorothiazide 50-12.5 mg 1 tab PO DAILY montelukast 10 mg PO DAILY 90 days pantoprazole 40 mg PO BID Repatha SureClick (evolocumab) 140 mg subcut Q2W NS sucralfate 1 g PO BID 90 days Tobacco use date assessed: 10/19/24 Fall risk assessment: No Falls in past year Last assessed Fall Risk: 10/19/24 Dental Screening Dental Screen Date: 06/23/24 HPI 4m F/u HPI Details Chief Complaint The patient presents with concerns related to recent procedure side effects and ongoing management of chronic conditions. History of Present Illness The patient is a 74-year-old female presenting with concerns related to her recent procedure and chronic condition management. She has a history of Complex Regional Pain Syndrome (CRPS) and underwent a stellate ganglion block at pain management (10/14/2024), which resulted in side effects including numbness of her vocal cords, a dry cough, and intermittent shortness of breath. These symptoms are reportedly improving, with her oxygen saturation at 99%. She has a history of hypertension, previously managed with hydrochlorothiazide, which she discontinued due to a 24-hour urine study for osteoporosis coming up. Her blood pressure is being monitored daily, and she plans to resume hydrochlorothiazide after the study. The diuretic also aids in managing trace edema in her bilateral extremities. Social History Health Maintenance Review of Systems - Respiratory: Reports intermittent dyspnea and dry cough. Denies current severe shortness of breath. - Neurological: Reports numbness and tingling in fingers four and five of the right hand. - Cardiovascular: Denies chest pain. - General: Denies blurred vision, nausea, vomiting, fever, or chills. Physical Exam General: Cooperative, healthy appearing, comfortable, no acute distress and well developed Orientation: Patient oriented x3 Limitations: No limitations Head: Normal to inspection Ears: Hearing grossly normal bilaterally Nose: Normal external nose present Face and sinus: Normal facial exam Eyes: Appearance normal, both eyes and all related structures Neck: Normal visual inspection and Yes full ROM Respiratory: Normal respiratory effort and able to speak in complete sentences. Clear to auscultation bilaterally, slight dry cough noted Cardiovascular: Regular rate and rhythm. Normal S1 and S2 GI: Normal to inspection. Soft to palpation and nontender Skin: No rashes or lesions noted Neuro: Patient oriented x3 Extremities: Trace edema to bilateral extremities noted, otherwise normal to inspection Results Plan 1. Complex Regional Pain Syndrome (Crps) The patient will continue to follow up with pain management for her CRPS. The stellate ganglion block has resulted in some side effects, including numbness of the vocal cords and a dry cough, which are improving. Monitoring of symptoms will continue, with expectations for resolution in the coming weeks. 2. Ulnar Nerve Impingement The patient experiences weakness, numbness, and tingling in the fourth and fifth fingers of her right hand due to ulnar nerve impingement. Continued monitoring and management of symptoms are advised. 3. Hypertension The patient has discontinued hydrochlorothiazide temporarily due to a 24-hour urine study for osteoporosis. Blood pressure is being monitored daily, and the plan is to resume hydrochlorothiazide post-study. The diuretic also assists in managing trace edema in her extremities. 4. Osteoporosis The patient is undergoing a 24-hour urine study to evaluate her osteoporosis. Management will be adjusted based on the results of this study. Discussion Notes I discussed with the patient the side effects of the stellate ganglion block and reassured her that these symptoms are expected to resolve in the coming weeks. We also reviewed her hypertension management plan, including the temporary discontinuation of hydrochlorothiazide for her osteoporosis study. I advised her to continue monitoring her blood pressure daily and to follow up with pain management for her CRPS. Patient Instructions - Continue to monitor blood pressure daily and record readings. - Follow up with pain management for CRPS symptoms. - Expect improvement in symptoms related to the stellate ganglion block over the next few weeks. [facility] Medical History Esophageal spasm Hx of carcinoma of bladder Bladder carcinoma History of trigger finger Cervical radiculitis Chronic sinusitis GERD (gastroesophageal reflux disease) FRANCESCA (obstructive sleep apnea) CAD (coronary artery disease) History of primary hyperparathyroidism Non-toxic multinodular goiter Osteoporosis Pulmonary nodules H/O gastroesophageal reflux (GERD) HLD (hyperlipidemia) HTN (hypertension) COPD (chronic obstructive pulmonary disease) Asthma History of aneurysm Migraine Depression PTSD (post-traumatic stress disorder) History of panic attacks Anxiety Edema History of deviated nasal septum Medial epicondylitis of left elbow Fusion of spine, cervical region Surgical History History of carpal tunnel release Hx of cystoscopy H/O cervical spine surgery Hx of hand surgery Hx of right inguinal hernia repair History of hernia repair Hx of colonoscopy History of esophagogastroduodenoscopy (EGD) S/P repair of paraesophageal hernia H/O decompression of ulnar nerve Status post ablation of incompetent vein using laser History of cardiac catheterization History of eyelid surgery History of appendectomy History of parathyroidectomy History of cholecystectomy Hx of cataract surgery Hx of shoulder surgery S/P cubital tunnel release S/P arthroscopic surgery of right knee History of lumpectomy of both breasts History of hysterectomy Hx of adenoidectomy Hx of tonsillectomy Hx of eye surgery Family History Father Liver cancer Psoriasis Cancer Mental health disorder Mother Cervical cancer Ovarian cancer Heart attack Substance use disorder Social History Household Members: Children and None Housing: House Alcohol intake: current Alcohol intake frequency: does not drink Patient Tobacco Use Status: Former Tobacco user Tobacco use type: Cigarette e-Cigarette/Vaping Use: Never Used Second Hand Smoke Exposure: No service: No Current occupational status: employed 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, 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 Cognitive needs: No Hearing needs: No Vision needs: Yes Questionnaire Thrive Questionnaire Date Thrive assessed: 02/12/24 I am a: Patient What is your living situation today?: I have a steady place to live Within the past 12 months, did the food you bought not last and you didn't have the money to get more?: Never true Within the past 12 months, did you worry whether your food would run out before you got money to buy more?: Never true Do you have trouble paying for medicines?: I choose not to answer this question Do you have trouble getting transportation to medical appointments?: No Do you have trouble paying your heating and electricity bill?: No Do you have trouble taking care of your child, family member or friend?: No Do you have trouble with day-to-day activities such as bathing, preparing meals, shopping, managing finances, etc.?: No Are you currently unemployed and looking for a job?: No Are you interested in more education?: No Please select the resources that you would like help with: None Currently or been in a relationship where the following occur: I choose not to answer THRIVE Score: 0 JASPAL-7 AMB Questionnaire JASPAL-7 Date JASPAL - 7 assessed: 10/19/24 Feeling nervous, anxious, or on edge: 0 = Not at all Not being able to stop or control worryin = Not at all Worrying too much about different things: 0 = Not at all Trouble relaxin = Not at all Being so restless that it is hard to sit still: 0 = Not at all Becoming easily annoyed or irritable: 0 = Not at all Feeling afraid as if something awful might happen: 0 = Not at all Total JASPAL-7 score (0-4 normal; 5-9 mild; 10-14 moderate; 15-21 severe): 0 Source: Developed by Drs. Manas Hilario, Lizabeth Wadsworth, Hernando Rodríguez and colleagues, with an educational fidelina from [employer]. JASPAL-7 Assessment Billing JASPAL-7 Assessment Tool: JASPAL-7 Assessment 80353 Physical exam (Primary Care) Vital Signs: Last Vital Signs Temp 97.9 F 10/19/24 08:06 Pulse 91 10/19/24 08:06 Resp 16 10/19/24 08:06 BP 138/84 10/19/24 08:06 Pulse Ox 99 10/19/24 08:06 Oxygen Delivery Method Room Air 10/19/24 08:06 BMI result Body Mass Index 32.5 Tobacco/Smoking Status: Tobacco use Status Tobacco use date assessed 10/19/24 10/19/24 08:13 Patient Tobacco Use Status Former Tobacco user 10/19/24 08:13 Tobacco use type Cigarette 10/19/24 08:13 e-Cigarette/Vaping Use Never Used 10/19/24 08:13 Thrive Assessment: Date of Thrive Assessment Date Thrive assessed 02/12/24 10/19/24 08:13 Currently or been in a relationship where the following occur: I choose not to answer Coding Level of Care Code Est Pt Level 3 (25113) Diagnoses Other osteoporosis without current pathological fracture M81.8 Osteoporosis type: other Presence of current pathological fracture: without current pathological fracture CRPS (complex regional pain syndrome), type I, upper G90.519 HTN (hypertension) I10 Additional Codes JASPAL-7 Assessment Billing - JASPAL-7 Assessment Tool: JASPAL-7 Assessment [id number] ([id number]) Assessment & Plan Assessment & Plan (1) Osteoporosis: Code(s): M81.0 - Age-related osteoporosis without current pathological fracture Category: Medical Qualifiers: Osteoporosis type: other Presence of current pathological fracture: without current pathological fracture Qualified Code(s): M81.8 - Other osteoporosis without current pathological fracture (2) CRPS (complex regional pain syndrome), type I, upper: Code(s): G90.519 - Complex regional pain syndrome I of unspecified upper limb Category: Medical (3) HTN (hypertension): Code(s): I10 - Essential (primary) hypertension Category: Medical Plan . Medications: New losartan 50 mg PO DAILY 30 tabs 2RF
== END 2024-10-19 08:43 | disposition home or self-care (01) ==
LOC: HO.HMCC 08:00
PROVIDERS: PCP Nurse Practitioner Family; Visit Provider Nurse Practitioner Family
DX: M81.8 Other osteoporosis without current pathological fracture (principal); G90.519 Complex regional pain syndrome I of unspecified upper limb; I10 Essential (primary) hypertension

== ENCOUNTER → 2024-10-19 07:59 | Outpatient (BNVA) | payer OTHER, SELFPAY | PROVIDERS: PCP Nurse Practitioner Family; Visit Provider Nurse Practitioner Family | DX: I10 Essential (primary) hypertension (principal); M81.8 Other osteoporosis without current pathological fracture; G90.519 Complex regional pain syndrome I of unspecified upper limb; G56.81 Other specified mononeuropathies of right upper limb | CPT/HCPCS: 96127 ==

== ENCOUNTER 2024-10-28 08:59 | Outpatient (AMB) | payer OTHER, SELFPAY ==
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
--- OUTSIDE RECORDS SUMMARY | 2024-10-28 10:21 | XMS_ITS | Patient Health Record ---
Author Organization [facility] Address [address] [place] [address] Care Team Providers Care Bull Bucker Name Role Phone Augustine Carrera M.D. Primary Care Provider Ruth Manas Blas Unavailable [phone] Allergies Allergen (clinical drug ingredient) Drug/Non Drug [...] ve raloxifene Evista Unknown Drug Allergy Active Penicillin [...] Furosemide 10mg Acti ve Qvar 40mcg Active Vickery-Smoothe/FS Body 0.01% Active Vitamin D 2400 Activ e Losartan Potassium 25mg Active ZyrTEC 10mg Active Ventolin HFA Active Multi Vitamin/Minerals Active Artificial Tears Act hai Problems Problem Type SNOMED Code ICD Code Onset Dates Problem Status W/U Status Risk Notes Problem Irritable bowel syndrome (24403424) Irritable bowel syndrome (564.1) Active confirmed Problem Diarrhea (69795643) Diarrhea (787.91) Active confirmed Problem Generalized abdominal pain (818483263) Abdominal pain, generalized (789.07) Active confirmed Problem Constipation (45705074) Constipation (564.00) Active confirmed Problem Gastroesophageal reflux disease (446039696) GERD (gastroesophage al reflux disease) (530.81) Active confirmed Problem Epigastric pain (86842310) Abdominal discomfort, epigastric (789.06) Active confirmed Problem Gas (27193607) Gas (787.3) Active confirmed Plan Of Treatment Future Test Test Name Order Date UPPER GI ENDOSCOPY 08/15/2011 Insurance Providers Payer Name Payer Address Payer Phone Subscriber Number Group Number Insured Name Patient Relationship to Insured Coverage Start Date Coverage End Date MEDICARE OF [place] [address] [place] [address] [id number] JORGITO ALCANTARA Self - patient is the insured MEDICAID OF [facility] [address] [place] [address] [id number] JORGITO ALCANTARA Self - patient is the insured Medical (General) History Medical History History ICD Code screening colonoscopy 07-23-2006--neg. fo r polyps EGD 06-11-1999 and 02/17 negative for signi ficant esophagitis nor ulcer disease GERD hx of duodenal ulcer in the s Denies MO,DM,CVA,renal disease irregular heart beat elevated [...]
--- OUTSIDE RECORDS SUMMARY | 2024-10-28 10:22 | XMS_ITS | Patient Health Record ---
Author Organization [facility] Address [address] [place] [address] Care Team Providers Care Talent Acquisition Manager Name Role Phone BEBE VELASCO M.D Primary Care Provider LIZANDRO Bean Unavailable [phone] Allergies Allergen (clinical drug ingredient) Drug/Non Drug Allergy documented on EMR Reaction Allergy Type Onset Date Status 12 Hour Nasal [place] Unknown Drug Allergy Active risedronate Actonel Unknown [...] Status Risk Notes Problem Postmenopausal atrophic vaginitis (97595634) Postmenopausal atrophic vaginitis (N95.2) Active confirmed Problem Age-related osteoporosis (079699529) Age-related osteoporosis without current pathological fracture (M81.0) Active confirmed Problem Essential hypertension (63640666) Essential (primary) hypertension (I10) Active confirmed Problem Hyperlipidemia (61850079) Hyperlipidemia, unspecified (E78.5) Active confirmed Problem Uncomplicated asthma (disorder) (057985928) Unspecified asthma, uncomplicated (J45.909) Active confirmed Problem Gastro-esophageal reflux disease without esophagitis (946117595) Gastro-esophageal reflux disease without esophagitis (K21.9) Active confirmed Plan Of Treatment No Information Insurance Providers Payer Name Payer Address Payer Phone Subscriber Number Group Number Insured Name Patient Relationship to Insured Coverage Start Date Coverage End Date MEDICARE [address] [facility] [place] [id number] LAURENT JORGITO Self - patient is the [...]
--- OUTSIDE RECORDS SUMMARY | 2024-10-28 10:22 | XMS_ITS | Clinical Summary ---
Author Organization [facility] Address [address] [place] [address] Phone Care Team Providers Care Senior Budget Analyst Name Role Phone Sachin Linares NP Primary [...] for left slight decrease in right hand impregnator and drier at 4+/5 -. Gait is steady. Review [...] hand and has an appointment to see [facility] [facility] on July 14. She is welcome [...] intact. X-rays of the cervical spine from [facility] dated 2024 show good position of her C4-5 and C5-C6-C7 plates but there does not appear to be robust bone growth across the disc spaces. I will discuss with Dr. Rodriguez and likely order a bone growth stimulator. Meantime, she is going to get in contact with [place] [facility]. We talked about acupuncture and [...] 01/12/2022 Hypertension/CHF/CAD Annual BMP Blood Test 01/24/2022 Depression Screening 02/11/2024 COVID-19 Vaccine ( season) 2024 06/29/2021, 11/19/2020, 04/04/2020, Additional history exists Influenza [...] Procedure Name Priority Date/Time Associated Diagnosis Comments [facility] DEXA AXIAL SKELETON Routine 02/02/2018 9:04 AM EST Encounter for screening for osteoporosis [facility] SCREENING DIGITAL Routine 02/02/2018 8:35 AM EST Encounter for screening mammogram for malignant neoplasm of breast from Last 3 Months or Most Recently Relevant to Health Maintenance Results * [facility] DEXA AXIAL SKELETON (02/02/2018 9:04 AM EST) Anatomical Region Laterality Modality Mammography 02/02/2018 7:11 AM EST Narrative 02/02/2018 9:04 AM EST [facility] Diagnostic Imaging Department [address] [place] [address] Patient: ADALI HOLMAN Hari /Age/Sex: 1950 - 67 - F Unit#: [id number] Location/Status: [facility] CLI Mnemonic[facility] Ordering Physician: KATERINA TOLBERT MD [facility] [...] probability of hip fracture of 11.3%. Code 77363 Dictating Physician: GALINA KUO MD Electronically Signed by: GALINA KUO MD Dic Date/Time: 02/02/18901 Sign date/Time: 02/02/18903 Procedure Note Galina Kuo MD - 01/29/2022 [facility] Diagnostic Imaging Department [address] [place] [address] Patient: ADALI HOLMAN Hari /Age/Sex: 1950 67 - F Unit#: [id number] Location/Status: [facility]/REG CLI Mnemonic[facility] Ordering Physician: KATERINA TOLBERT MD [facility] Dexa Axial Skeleton - 02/02/18748 [...] density of the femurs bilaterally is 0.707 gm/iz2unpbw is 70% of that of young normals [...] probability of hip fracture of 11.3%. Code 44525 Dictating Physician: GALINA KUO MD Electronically Signed by: GALINA KUO MD Dic Date/Time: 02/02/18901 Sign date/Time: 02/02/18903 us Katerina Tolbert MD IMG BI PROCEDURES Final Re sult * [facility] SCREENING DIGITAL (02/02/2018 8:35 AM EST) Anatomical Region Laterality Modality Mammography 02/02/2018 7:10 AM EST Narrative 02/02/2018 8:35 AM EST [facility] Diagnostic Imaging Department [address] [place] [address] Patient: ADALI HOLMAN I /Age/Sex: 1950 - 67 - F Unit#: [id number] Location/Status: [facility]/REG CLI Mnemonic/Ordering Site: [facility] Ordering Physician: JEANETTE CARRERA MD [facility] Screening Digital - 02/02/18 - 0749 INDICATION: SCREENING COMPARISON: [facility] mammograms dating back to 01/12/2013 FINDINGS: CC and MLO views of the breasts were obtained, using full field digital mammography with 3D tomosynthesis views in the MLO projection. Computer aided detection with the [employer] 7.2-H was employed. Benign bilateral breast biopsies [...] a target date for the next mammogram. G0150 / 40140) , [id number] Dictating Physician: TONI SHRESTHA MD Electronically Signed by: TONI SHRESTHA MD Dic Date/Time: 02/02/18829 Sign date/Time: 02/02/18 08 Procedure Note Toni Shrestha MD - 01/29/2022 [facility] Diagnostic Imaging Department [address] [place], [place] [id number] Patient: ADALI HOLMAN I /Age/Sex: 1950 67 - Unit#: [id number] Location/Status: [facility] CLI Mnemonic/Ordering Site: [facility] Ordering Physician: JEANETTE CARRERA MD [facility] Screening Digital - 02/02/18 - 49 INDICATION: SCREENING COMPARISON: [facility] mammograms dating back to 01/12/2013 FINDINGS: CC and MLO views of the breasts were obtained, using full field digital mammography with 3D tomosynthesis views in the MLO projection. Computeraided detection with the [employer] 7.2-H was employed. Benign bilateral breast biopsies [...] a target date for the next mammogram. G0929 / 57733) , 55214 Dictating Physician: TONI SHRESTHA MD Electronically Signed by: TONI SHRESTHA MD Dic Date/Time: 02/02/18829 Sign date/Time: 02/02/18834 Jeanette Carrera MD [facility] [place] PROCEDURES Final Resu lt from Last 3 Months or Most Recently Relevant to Health Maintenance Insurance [employer] [place] MEDIC[employer] ADVANTAGE Advance Directives Documents on File Type Date Recorded Patient Digester Hand Expl anation Health Care Decision (hx) 07/02/2022 [...] (hx) 07/18/2009 AD HERNANDEZ DIRECTIVE Care Teams Senior Budget Analyst Relationship Specialty Start Date End Date Sachin Linares NP [address] [place], [place] PCP - General 05/31/22
== END 2024-10-28 09:46 | disposition home or self-care (01) ==
LOC: HO.HOP 08:59
PROVIDERS: PCP Nurse Practitioner Family; Visit Provider Clinical Nurse Specialist Psychiatric/Mental Health
DX: F43.12 Post-traumatic stress disorder, chronic (principal); F41.0 Panic disorder [episodic paroxysmal anxiety]
CPT/HCPCS: 90833; 99213

== ENCOUNTER 2024-11-15 05:30 | Outpatient (REF) | payer MEDICARE, OTHER, SELFPAY ==
--- OUTSIDE RECORDS SUMMARY | 2024-11-15 08:46 | XMS_ITS | Patient Health Record ---
Author Organization [facility] Address [address] [place] [address] Care Team Providers Care Still Operator Whiskey Name Role Phone BEBE VELASCO M.D Primary Care Provider LIZANDRO Bean Unavailable [phone] Allergies Allergen (clinical drug ingredient) Drug/Non Drug Allergy documented on EMR Reaction Allergy Type Onset Date Status 12 Hour Nasal [place] Unknown Drug Allergy Active risedronate Actonel Unknown [...] Status Risk Notes Problem Postmenopausal atrophic vaginitis (81779851) Postmenopausal atrophic vaginitis (N95.2) Active confirmed Problem Age-related osteoporosis (869343882) Age-related osteoporosis without current pathological fracture (M81.0) Active confirmed Problem Essential hypertension (15738448) Essential (primary) hypertension (I10) Active confirmed Problem Hyperlipidemia (66159095) Hyperlipidemia, unspecified (E78.5) Active confirmed Problem Uncomplicated asthma (disorder) (051465813) Unspecified asthma, uncomplicated (J45.909) Active confirmed Problem Gastro-esophageal reflux disease without esophagitis (803976299) Gastro-esophageal reflux disease without esophagitis (K21.9) Active confirmed Plan Of Treatment No Information Insurance Providers Payer Name Payer Address Payer Phone Subscriber Number Group Number Insured Name Patient Relationship to Insured Coverage Start Date Coverage End Date MEDICARE [address] [facility] [place] [id number] LAURENT JORGITO Self - patient is the [...]
--- OUTSIDE RECORDS SUMMARY | 2024-11-15 08:46 | XMS_ITS | Clinical Summary ---
Author Organization [address] [facility] Address [address] [place] [address] Phone Care Team Providers Care Hide Puller Name Role Phone Sachin Linares NP Primary [...] for left slight decrease in right hand last trimmer at 4+/5 -. Gait is steady. Review [...] hand and has an appointment to see [facility] on July 14. She is welcome [...] using it. C-spine MRI done yesterday at [facility] does not show any significant central [...] intact. X-rays of the cervical spine from [facility] dated 2024 show good position of her C4-5 and C5-C6-C7 plates but there does not appear to be robust bone growth across the disc spaces. I will discuss with Dr. Rodriguez and likely order a bone growth stimulator. Meantime, she is going to get in contact with [facility]. We talked about acupuncture and [...] disease) 7 Anxiety 01/16/2017 Asthma 09/12/2016 Immunizations Immunization Administration Dates Next Due Influenza trivalent, 0.5mL [...] subun it RSVpreF, 0.5mL, Preservative Free (Arexvy) 50yo and older 11/01/2022 Tdap Tetanus diptheria acell [...] Health Maintenance Due Date Last Done Comments Colorectal Cancer Screening: Colonoscopy 1950 Zoster Vaccines (1 of 2) 1968 Cholesterol Screening (Lipid Panel) 01/12/2022 Falls Risk Assessment 01/12/2022 Hepatitis C [...] Name Priority Date/Time Associated Diagnosis Comments [facility] DEXA AXIAL SKELETON Routine 02/02/2018 9:04 AM EST Encounter for screening for osteoporosis [facility] SCREENING DIGITAL Routine 02/02/2018 8:35 AM EST Encounter for screening mammogram for malignant neoplasm of breast from Last 3 Months or Most Recently Relevant to Health Maintenance Results * [facility] DEXA AXIAL SKELETON (02/02/2018 9:04 AM EST) Anatomical Region Laterality Modality Mammography 02/02/2018 7:11 AM EST Narrative 02/02/2018 9:[address] [facility] Diagnostic Imaging Department [address] [place] [address] Patient: ADALI HOLMAN Hari /Age/Sex: 1950 - 67 - F Unit#: [id number] Location/Status: [facility] CLI [facility]em[facility] Order[facility] Physician: KATERINA TOLBERT MD [facility] [...] probability of hip fracture of 11.3%. Code 71603 Dictating Physician: GALINA KUO MD Electronically Signed by: GALINA KUO MD Dic Date/Time: 02/02/18901 Sign date/Time: 02/02/18903 Procedure Note Galina Kuo MD - 01/29/2022 [facility] Diagnostic Imaging Department [address] [place] [id number] Patient: ADALI HOLMAN Hari /Age/Sex: 1950 - 67 - F Unit#: [id number] Location/Status: [facility]/REG CLI Mnem[facility] Ordering Physician: KATERINA TOLBERT MD [facility] [...] density of the femurs bilaterally is 0.707 gm/tj8qqrxd is 70% of that of young normals [...] probability of hip fracture of 11.3%. Code 62233 Dictating Physician: GALINA KUO MD Electronically Signed by: GALINA KUO MD Dic Date/Time: 02/02/18901 Sign date/Time: 02/02/18903 us Katerina Tolbert MD IMG BI PROCEDURES Final Re sult * [facility] SCREENING DIGITAL (02/02/2018 8:35 AM EST) Anatomical Region Laterality Modality Mammography 02/02/2018 7:10 AM EST Narrative 02/02/2018 8:[address] [facility] Diagnostic Imaging Department [address] [place] [address] Patient: ADALI HOLMAN I /Age/Sex: 1950 - 67 - F Unit#: [id number] Location/Status: [facility]/REG CLI Mnemonic/Ordering Site: [facility] Ordering Physician: JEANETTE CARRERA MD [facility] Screening Digital - 02/02/18 - 0749 INDICATION: SCREENING COMPARISON: [facility] mammograms dating back to 01/12/2013 FINDINGS: CC and MLO views of the breasts were obtained, using full field digital mammography with 3D tomosynthesis views in the MLO projection. Computer aided detection with the [employer] 7.2-H was employed. Benign bilateral breast biopsies [...] a target date for the next mammogram. G0392 / 15040) , [id number] Dictating Physician: TONI SHRESTHA MD Electronically Signed by: TONI SHRESTHA MD Dic Date/Time: 02/02/18829 Sign date/Time: 02/02/18 08 Procedure Note Toni Shrestha MD - 01/29/2022 [facility] Diagnostic Imaging Department [address] [place], [place] [id number] Patient: ADALI HOLMAN I /Age/Sex: 1950 67 - F Unit#: [id number] Location/Status: [facility] CLI Mnemonic/Ordering Site: [facility] Ordering Physician: JEANETTE CARRERA MD [facility] Screening Digital - 02/02/18 - 49 INDICATION: SCREENING COMPARISON: [facility] mammograms dating back to 01/12/2013 FINDINGS: CC and MLO views of the breasts were obtained, using full field digital mammography with 3D tomosynthesis views in the MLO projection. Computeraided detection with the [employer] 7.2-H was employed. Benign bilateral breast biopsies [...] a target date for the next mammogram. G0405 / 76875) , [id number] Dictating Physician: TONI SHRESTHA MD Electronically Signed by: TONI SHRESTHA MD Dic Date/Time: 02/02/18829 Sign date/Time: 02/02/18834 eJanette Carrera MD [facility] BI PROCEDURES Final Resu lt from Last 3 Months or Most Recently Relevant to Health Maintenance Insurance [employer] Advance Directives Documents on File Type Date Recorded Patient Catia Designer Expl anation Health Care Decision (hx) 07/02/2022 [...] (hx) 07/18/2009 AD HERNANDEZ DIRECTIVE Care Teams Hide Puller Relationship Specialty Start Date End Date Sachin Linares NP [address] [place], [place] PCP - General 05/31/22
--- OUTSIDE RECORDS SUMMARY | 2024-11-15 08:46 | XMS_ITS | Patient Health Record ---
Author Organization [facility] Address [address] [place] [address] Care Team Providers Care Log Chain Feeder Name Role Phone Augustine Carrera M.D. Primary Care Provider Ruth Manas Blas Unavailable [phone] Allergies Allergen (clinical drug ingredient) Drug/Non Drug [...] Furosemide 10mg Acti ve Qvar 40mcg Active [place]-Smoothe/FS Body 0.01% Active Vitamin D 2400 Activ e Losartan Potassium 25mg Active ZyrTEC 10mg Active Ventolin HFA Active Multi Vitamin/Minerals Active Artificial Tears Act hai Problems Problem Type SNOMED Code ICD Code Onset Dates Problem Status W/U Status Risk Notes Problem Irritable bowel syndrome (25140181) Irritable bowel syndrome (564.1) Active confirmed Problem Diarrhea (96188161) Diarrhea (787.91) Active confirmed Problem Generalized abdominal pain (732157615) Abdominal pain, generalized (789.07) Active confirmed Problem Constipation (54093832) Constipation (564.00) Active confirmed Problem Gastroesophageal reflux disease (380526197) GERD (gastroesophage al reflux disease) (530.81) Active confirmed Problem Epigastric pain (58804773) Abdominal discomfort, epigastric (789.06) Active confirmed Problem Gas (88869993) Gas (787.3) Active confirmed Plan Of Treatment Future Test Test Name Order Date UPPER GI ENDOSCOPY 08/15/2011 Insurance Providers Payer Name Payer Address Payer Phone Subscriber Number Group Number Insured Name Patient Relationship to Insured Coverage Start Date Coverage End Date MEDICARE OF [place] [address] [place] [address] [id number] JORGITO ALCANTARA Self - patient is the insured MEDICAID OF [facility] [address] [place] [address] [id number] JORGITO ALCANTARA Self - patient is the insured Medical (General) History Medical History History ICD Code screening colonoscopy 07-23-2006--neg. fo r polyps EGD 06-11-1999 and 02/17 negative for signi ficant esophagitis nor ulcer disease GERD hx of duodenal ulcer in the s Denies CT,DM,CVA,renal disease irregular heart beat elevated chloresterol hypertension osteoporosis Hiatal hernia Denies CT,DM,CVA,renal disease Mild asthma Anxiety Negative cardiac catheterization [...]
[2024-11-15 11:59] LABS: Creatinine, mg/dL 66.89
[2024-11-15 12:37] LABS: Total Volume 24 Hour Urine 1225 mL
[2024-11-18 16:43] LABS: Calcium/Creatinine Ratio 24 mg/g creat (30-275); Creatinine 24Hr Urine 0.87 g/24 h (0.50-2.15)
== END 2024-11-15 05:31 | disposition home or self-care (01) ==
LOC: HO.HMGCLNP 05:30
PROVIDERS: PCP Nurse Practitioner Family; Visit Provider Internal Medicine Endocrinology, Diabetes & Metabolism
DX: M81.0 Age-related osteoporosis without current pathological fracture (principal)
CPT/HCPCS: 82340; 82570

== ENCOUNTER 2024-11-29 11:46 | Outpatient (AMB) | payer MEDICARE, SELFPAY ==
--- NOTE | 2024-11-29 12:03 | MHC.OFFVIS ---
Vital Signs 11/29/24 12:15 Height 4 ft 11 in Weight 155 lb BMI 31.3 BP 132/72 Blood Pressure Location Lt brachial Position Sitting Pulse 76 Intake Visit Reasons: f/u 4m Intake Note: Patient 4 month follow up for dysphagia. Patient cc: diarrhea, upper abdominal pain/Ulcer, acid reflux with a lot of gasses and dysphagia. Car Rental Service Attendant Required: No Accompanied by: Self / Same As Patient Allergies dexlansoprazole (From DEXILANT) Allergy (Severe, Verified 11/29/24 12:02) dizziness, change in HR risedronate sodium (From ACTONEL) Allergy (Severe, Verified 11/29/24 12:02) chest discomfort Nclahmi-UYP-YoQ Reductase Inhibitor (GQOHWJR-QZZ-PRN REDUCTASE INHIBITOR) Allergy (Severe, Verified 11/29/24 12:02) JOINT PAIN tramadol (TRAMADOL) Allergy (Severe, Verified 11/29/24 12:02) THROAT TIGHTNESS amlodipine (AMLODIPINE) Allergy (Intermediate, Verified 11/29/24 12:02) PALIPITATIONS Atrovent Allergy (Intermediate, Verified 11/29/24 12:02) Cough baclofen (BACLOFEN) Allergy (Intermediate, Verified 11/29/24 12:02) LETHARGY Beta-Blockers (Beta-Adrenergic Bloc Allergy (Intermediate, Verified 11/29/24 12:02) BRADYCARDIA budesonide (From SYMBICORT) Allergy (Intermediate, Verified 11/29/24 12:02) HOARSENESS Chocolate Allergy (Intermediate, Verified 11/29/24 12:02) GERD ezetimibe (From ZETIA) Allergy (Intermediate, Verified 11/29/24 12:02) JOINT PAIN, ELEVATED CPK fluticasone (From ADVAIR DISKUS) Allergy (Intermediate, Verified 11/29/24 12:02) HTN glucosamine Allergy (Intermediate, Verified 11/29/24 12:02) LE edema ibandronate sodium (From BONIVA) Allergy (Intermediate, Verified 11/29/24 12:02) CHEST PAIN latex (LATEX) Allergy (Intermediate, Verified 11/29/24 12:02) RASH-SENSITIVITY lisinopril (LISINOPRIL) Allergy (Intermediate, Verified 11/29/24 12:02) COUGH, really bad cough meloxicam (From MOBIC) Allergy (Intermediate, Verified 11/29/24 12:02) GI UPSET mometasone furoate (From DULERA) Allergy (Intermediate, Verified 11/29/24 12:02) COUGH niacin Allergy (Intermediate, Verified 11/29/24 12:02) Flushing Penicillins (PENICILLINS) Allergy (Intermediate, Verified 11/29/24 12:02) RASH pregabalin (From LYRICA) Allergy (Intermediate, Verified 11/29/24 12:02) GERD flare up raloxifene (From EVISTA) Allergy (Intermediate, Verified 11/29/24 12:02) GERD rofecoxib (From Vioxx) Allergy (Intermediate, Verified 11/29/24 12:02) ankle swelling salmeterol (From ADVAIR DISKUS) Allergy (Intermediate, Verified 11/29/24 12:02) HTN scallops (SCALLOPS) Allergy (Intermediate, Verified 11/29/24 12:02) NAUSEA & VOMITING sertraline (From ZOLOFT) Allergy (Intermediate, Verified 11/29/24 12:02) SKIN CRAWLING spironolactone (SPIRONOLACTONE) Allergy (Intermediate, Verified 11/29/24 12:02) RASH, ?? psoriasis strawberry (STRAWBERRY) Allergy (Intermediate, Verified 11/29/24 12:02) ITCHING tiotropium (From SPIRIVA WITH HANDIHALER) Allergy (Intermediate, Verified 11/29/24 12:02) RAW THROAT, pharyngitis verapamil (VERAPAMIL) Allergy (Intermediate, Verified 11/29/24 12:02) IRREGULAR HEARTBEAT esomeprazole (Nexium) Allergy (Mild, Verified 11/29/24 12:02) did not resolve GERD naproxen (From ALEVE) Allergy (Mild, Verified 11/29/24 12:02) FLUSH omeprazole Allergy (Mild, Verified 11/29/24 12:02) did not resolve GERD tacrolimus Allergy (Mild, Verified 11/29/24 12:02) Rash adhesive (ADHESIVE) Allergy (Unknown, Verified 11/29/24 12:02) RASH doxycycline (DOXYCYCLINE) Allergy (Unknown, Verified 11/29/24 12:02) SEVERE NOYOLA, HEARTBURN, joint pain gabapentin (From NEURONTIN) Allergy (Unknown, Verified 11/29/24 12:02) leg swelling, SOB metoclopramide (From REGLAN) Allergy (Unknown, Verified 11/29/24 12:02) LETHARGY monosodium glutamate (MSG) Allergy (Unknown, Verified 11/29/24 12:02) HEADACHE, increased HR lifitegrast (From Xiidra) Allergy (Verified 11/29/24 12:02) blurred vision, headache, eye swelling metoprolol Adverse Reaction (Severe, Verified 11/29/24 12:02) Severe bradycardia alendronate sodium (From Fosamax) Adverse Reaction (Intermediate, Verified 11/29/24 12:02) Joint Pain amitriptyline Adverse Reaction (Intermediate, Verified 11/29/24 12:02) Agitated cyclosporine (From Cequa) Adverse Reaction (Intermediate, Verified 11/29/24 12:02) Eye Swelling fluticasone furoate (From Trelegy Ellipta) Adverse Reaction (Intermediate, Verified 11/29/24 12:02) asthma exacerbation perfluorohexyloctane (From Miebo) Adverse Reaction (Intermediate, Verified 11/29/24 12:02) Eye Swelling tobramycin (From Tobrex) Adverse Reaction (Intermediate, Verified 11/29/24 12:02) Eye Swelling umeclidinium (From Trelegy Ellipta) Adverse Reaction (Intermediate, Verified 11/29/24 12:02) asthma exacerbation vilanterol (From Trelegy Ellipta) Adverse Reaction (Intermediate, Verified 11/29/24 12:02) asthma exacerbation azelastine Adverse Reaction (Mild, Verified 11/29/24 12:02) Gastrointestinal Upset hi Adverse Reaction (Intermediate, Uncoded 10/29/24 10:54) Itchy Eyes Sulindac Adverse Reaction (Intermediate, Uncoded 10/29/24 10:54) Nausea, pain HPI HPI f/u 4m: Details: 74 yr old f here for f/u RECAP: seen by May initially due to GERD neg cardiac eval using wedge pillows she has failed omeprazole, Nexium, Dexilant, and Gaviscon. She has done the best on Protonix and takes it twice a day about 3 times a week she had ba swallow 2015- pill was ok, reflux noted, small sliding hiatal hernia repeat GI series 11/2018--same as above, small bowel was normal EGD- with dilation- helped her dysphagia, 4 cm hiatal hernia noted. mild gastritis she had ongoing sx with regurg, vomtiing, and burping advised on SALT consult for aerophagia trial of zegrid and pepcid combo At f/u visit she was still on pantoprazole bid and gas x or tums otherwise vomiting was better but still had breakthru burping, regurgitation, and sob if she bends forward she was also coughing after eating some ruq and epigastric discomfort still has trouble food sticking occ she did have one episode of blood noted in stool, on wiping, slight after having a nose bleed and coughing some blood, colonoscopy 2016 with diverticulosis, no mention made of hemorrhoids she does have nose bleeds on and off maybe once a week, uses 3-5 tissues has afrin at home CBC was good with HGB 14 g/dl sigmoidoscopy with grade II internal hemorrhoids, and severe diverticulosis, fair prep, no blood seen in colon u/s liver 03/2019-- fatty liver, hepatomegaly GES 03/2019--normal emptying she was referred to Dr Del Rosario for lap repair of hiatal hernia 09/2019 and did well I ordered CT scan for groin pain revealed fat containing inguinal hernias, awaiting surgical repair by Dr Carson of right side she had noticed she is going to bathroom more often, she has urgency she was still taking align and Mag, Advised to stop Mag supplements, and increase fiber intake Ba swallow-- 04/2020--normal EGD 11/30-- gastritis, esophagitis bx: moderate inflammation GEJ switched from pepcid to PPI She had repeat EGD and colonoscopy Endoscopy Findings: slightly lax LES gastritis Colonoscopy Findings internal hemorrhoids diverticular disease erosive ileitis Path: GEJ --mild chronic inflammation, focal ileitis, colon bx normal prior to endoscopies she had just commenced celebrix, stopped ibuprofen--for spinal pain and hand pain Ba swallow- mild reflux , normal swallow, no pill given EGD 02/05/23 Balloon dilation 18 mm, esophageal stricture hiatal hernia EGD 05/2023: erosive gastritis small hiatal hernia dilation done 20 mm balloon EGD:01/15/24 savary dilation 16 mm INTERIM: she has issues with choking again and swallowing she feels the food is getting held up lower esophagus she has stress got laid off she had tree fall on her garage, and dog put to sleep she thinks she has been worse since a nerve block to the neck 2 months ago she is taking mylanta which helps occ episodes if RLQ pain and discomfort also on high doses of caclium citrate from endocrine, for osteoporosis EXAM: voice is normal GENERAL: The patient is well developed and nontoxic. VITAL SIGNS:see workflow HEENT: Nonicteric sclerae, PERRLA, EOMI. Oropharynx clear. Moist mucous membranes. Conjunctivae appear well perfused. No thyroid mass. CHEST: Chest wall is nontender. HEART: Regular rate and rhythm without murmurs. LUNGS: Clear to auscultation bilaterally. ABDOMEN: Soft, positive bowel sounds, nontender, no organomegaly.no flank tenderness SKIN: No rash, no excessive bruising, petechiae, or purpura. NEUROLOGIC: Cranial nerves II-XII intact without motor/sensory deficit. Assessment & Plan 1/ GERD, on PPI 2/ severe diverticulosis 3/ dysphagia, prob from 1/ above and possible esophageal spasm --improved but shadia recurred 4/ RLQ pain, hx of focal ileitis in past PLAN: 1/ cont with PPI, repeat dilation, use savary 2/ trial of mesalamine [facility] Medical History Esophageal spasm Hx of carcinoma of bladder Bladder carcinoma History of trigger finger Cervical radiculitis Chronic sinusitis GERD (gastroesophageal reflux disease) FRANCESCA (obstructive sleep apnea) CAD (coronary artery disease) History of primary hyperparathyroidism Non-toxic multinodular goiter Osteoporosis Pulmonary nodules H/O gastroesophageal reflux (GERD) HLD (hyperlipidemia) HTN (hypertension) COPD (chronic obstructive pulmonary disease) Asthma History of aneurysm Migraine Depression PTSD (post-traumatic stress disorder) History of panic attacks Anxiety Edema History of deviated nasal septum Medial epicondylitis of left elbow Fusion of spine, cervical region Surgical History History of carpal tunnel release Hx of cystoscopy H/O cervical spine surgery Hx of hand surgery Hx of right inguinal hernia repair History of hernia repair Hx of colonoscopy History of esophagogastroduodenoscopy (EGD) S/P repair of paraesophageal hernia H/O decompression of ulnar nerve Status post ablation of incompetent vein using laser History of cardiac catheterization History of eyelid surgery History of appendectomy History of parathyroidectomy History of cholecystectomy Hx of cataract surgery Hx of shoulder surgery S/P cubital tunnel release S/P arthroscopic surgery of right knee History of lumpectomy of both breasts History of hysterectomy Hx of adenoidectomy Hx of tonsillectomy Hx of eye surgery Family History Father Liver cancer Psoriasis Cancer Mental health disorder Mother Cervical cancer Ovarian cancer Heart attack Substance use disorder Social History Household Members: Children and None Housing: House Alcohol intake: current Alcohol intake frequency: does not drink Patient Tobacco Use Status: Former Tobacco user Tobacco use type: Cigarette e-Cigarette/Vaping Use: Never Used Second Hand Smoke Exposure: No service: No Current occupational status: employed 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
[2024-11-29 12:15] VITALS: BP 132/72; PULSE 76; BMI 31.3
== END 2024-11-29 12:41 | disposition home or self-care (01) ==
LOC: HO.HGI 11:47
PROVIDERS: PCP Nurse Practitioner Family; Visit Provider Internal Medicine Gastroenterology
DX: K52.9 Noninfective gastroenteritis and colitis, unspecified (principal)
CPT/HCPCS: 99213

== ENCOUNTER → 2024-11-29 11:46 | Outpatient (BNVA) | payer MEDICARE, SELFPAY | PROVIDERS: PCP Nurse Practitioner Family; Visit Provider Internal Medicine Gastroenterology | DX: K52.9 Noninfective gastroenteritis and colitis, unspecified (principal); R13.10 Dysphagia, unspecified | CPT/HCPCS: 99212 ==

== ENCOUNTER 2024-12-01 09:40 | Outpatient (AMB) | payer OTHER, SELFPAY ==
--- NOTE | 2024-12-01 09:51 | MHC.OFFVIS ---
Vital Signs 12/01/24 09:52 Height 4 ft 11 in Weight 155 lb BMI 31.3 BP 122/68 Blood Pressure Location Lt brachial Position Sitting Respiration 16 Pulse 84 Pulse Source Pulse Oximeter Pulse Oximetry (%) 98 Oxygen Delivery Method Room Air Intake Visit Reasons: Diagnostic ulnar NB Clinical Assessment Manager Required: No Sr. Logistics Analyst: Sr. Logistics Analyst Present Accompanied by: Cisco T Allergies dexlansoprazole (From DEXILANT) Allergy (Severe, Verified 12/01/24 09:54) dizziness, change in HR risedronate sodium (From ACTONEL) Allergy (Severe, Verified 12/01/24 09:54) chest discomfort Lmebxqv-ZXW-YcO Reductase Inhibitor (VFEYIFY-IXS-TVJ REDUCTASE INHIBITOR) Allergy (Severe, Verified 12/01/24 09:54) JOINT PAIN tramadol (TRAMADOL) Allergy (Severe, Verified 12/01/24 09:54) THROAT TIGHTNESS amlodipine (AMLODIPINE) Allergy (Intermediate, Verified 12/01/24 09:54) PALIPITATIONS Atrovent Allergy (Intermediate, Verified 12/01/24 09:54) Cough baclofen (BACLOFEN) Allergy (Intermediate, Verified 12/01/24 09:54) LETHARGY Beta-Blockers (Beta-Adrenergic Bloc Allergy (Intermediate, Verified 12/01/24 09:54) BRADYCARDIA budesonide (From SYMBICORT) Allergy (Intermediate, Verified 12/01/24 09:54) HOARSENESS Chocolate Allergy (Intermediate, Verified 12/01/24 09:54) GERD ezetimibe (From ZETIA) Allergy (Intermediate, Verified 12/01/24 09:54) JOINT PAIN, ELEVATED CPK fluticasone (From ADVAIR DISKUS) Allergy (Intermediate, Verified 12/01/24 09:54) HTN glucosamine Allergy (Intermediate, Verified 12/01/24 09:54) LE edema ibandronate sodium (From BONIVA) Allergy (Intermediate, Verified 12/01/24 09:54) CHEST PAIN latex (LATEX) Allergy (Intermediate, Verified 12/01/24 09:54) RASH-SENSITIVITY lisinopril (LISINOPRIL) Allergy (Intermediate, Verified 12/01/24 09:54) COUGH, really bad cough meloxicam (From MOBIC) Allergy (Intermediate, Verified 12/01/24 09:54) GI UPSET mometasone furoate (From DULERA) Allergy (Intermediate, Verified 12/01/24 09:54) COUGH niacin Allergy (Intermediate, Verified 12/01/24 09:54) Flushing Penicillins (PENICILLINS) Allergy (Intermediate, Verified 12/01/24 09:54) RASH pregabalin (From LYRICA) Allergy (Intermediate, Verified 12/01/24 09:54) GERD flare up raloxifene (From EVISTA) Allergy (Intermediate, Verified 12/01/24 09:54) GERD rofecoxib (From Vioxx) Allergy (Intermediate, Verified 12/01/24 09:54) ankle swelling salmeterol (From ADVAIR DISKUS) Allergy (Intermediate, Verified 12/01/24 09:54) HTN scallops (SCALLOPS) Allergy (Intermediate, Verified 12/01/24 09:54) NAUSEA & VOMITING sertraline (From ZOLOFT) Allergy (Intermediate, Verified 12/01/24 09:54) SKIN CRAWLING spironolactone (SPIRONOLACTONE) Allergy (Intermediate, Verified 12/01/24 09:54) RASH, ?? psoriasis strawberry (STRAWBERRY) Allergy (Intermediate, Verified 12/01/24 09:54) ITCHING tiotropium (From SPIRIVA WITH HANDIHALER) Allergy (Intermediate, Verified 12/01/24 09:54) RAW THROAT, pharyngitis verapamil (VERAPAMIL) Allergy (Intermediate, Verified 12/01/24 09:54) IRREGULAR HEARTBEAT esomeprazole (Nexium) Allergy (Mild, Verified 12/01/24 09:54) did not resolve GERD naproxen (From ALEVE) Allergy (Mild, Verified 12/01/24 09:54) FLUSH omeprazole Allergy (Mild, Verified 12/01/24 09:54) did not resolve GERD tacrolimus Allergy (Mild, Verified 12/01/24 09:54) Rash adhesive (ADHESIVE) Allergy (Unknown, Verified 12/01/24 09:54) RASH doxycycline (DOXYCYCLINE) Allergy (Unknown, Verified 12/01/24 09:54) SEVERE NOYOLA, HEARTBURN, joint pain gabapentin (From NEURONTIN) Allergy (Unknown, Verified 12/01/24 09:54) leg swelling, SOB metoclopramide (From REGLAN) Allergy (Unknown, Verified 12/01/24 09:54) LETHARGY monosodium glutamate (MSG) Allergy (Unknown, Verified 12/01/24 09:54) HEADACHE, increased HR lifitegrast (From Xiidra) Allergy (Verified 12/01/24 09:54) blurred vision, headache, eye swelling metoprolol Adverse Reaction (Severe, Verified 12/01/24 09:54) Severe bradycardia alendronate sodium (From Fosamax) Adverse Reaction (Intermediate, Verified 12/01/24 09:54) Joint Pain amitriptyline Adverse Reaction (Intermediate, Verified 12/01/24 09:54) Agitated cyclosporine (From Cequa) Adverse Reaction (Intermediate, Verified 12/01/24 09:54) Eye Swelling fluticasone furoate (From Trelegy Ellipta) Adverse Reaction (Intermediate, Verified 12/01/24 09:54) asthma exacerbation perfluorohexyloctane (From Miebo) Adverse Reaction (Intermediate, Verified 12/01/24 09:54) Eye Swelling tobramycin (From Tobrex) Adverse Reaction (Intermediate, Verified 12/01/24 09:54) Eye Swelling umeclidinium (From Trelegy Ellipta) Adverse Reaction (Intermediate, Verified 12/01/24 09:54) asthma exacerbation vilanterol (From Trelegy Ellipta) Adverse Reaction (Intermediate, Verified 12/01/24 09:54) asthma exacerbation azelastine Adverse Reaction (Mild, Verified 12/01/24 09:54) Gastrointestinal Upset hi Adverse Reaction (Intermediate, Uncoded 12/01/24 09:54) Itchy Eyes Sulindac Adverse Reaction (Intermediate, Uncoded 12/01/24 09:54) Nausea, pain Medication List - Last Reconciled 12/01/24 by Jackie Pryor LPN acetaminophen ER (Tylenol Arthritis Pain) 650 mg PO Q12H aspirin (Adult Aspirin Regimen) 81 mg PO DAILY beclomethasone dipropionate 80 mcg/actuation (Qvar RediHaler) 1 inh inhalation BID 30 days Bifidobacterium infantis (Align (B.infantis)) 4 mg PO DAILY cetirizine (Zyrtec) 10 mg PO DAILY PRN cholecalciferol (vitamin D3) 25 mcg PO DAILY 30 days cyclosporine 0.05% (Restasis) 1 drp ophthalmic (eye) Q12H denosumab (Prolia) 60 mg subcut [id number] dextran 70-hypromellose (PF) 0.1-0.3 % (Artificial Tears (PF)) 1 drp ophthalmic (eye) BEDTIME docusate sodium (Colace) 100 mg PO BID flunisolide 2 sprays intranasal BID PRN levalbuterol tartrate 45 mcg/actuation 2 puffs inhalation Q4H PRN lorazepam (Ativan) 0.5 mg PO BID PRN losartan 50 mg PO DAILY losartan-hydrochlorothiazide 50-12.5 mg 1 tab PO DAILY mesalamine ER (Pentasa) 1,000 mg (2 x 500 mg) PO BID montelukast 10 mg PO DAILY 90 days pantoprazole 40 mg PO BID Repatha SureClick (evolocumab) 140 mg subcut Q2W NS sucralfate 1 g PO BID 90 days HPI HPI Diagnostic ulnar NB: Details: History of Present Illness The patient is a 74-year-old female presenting with right hand pain and for a diagnostic ulnar nerve block. The patient reports persistent right hand pain, which has been ongoing despite previous interventions. She experiences difficulty with fine motor tasks such as crushing pills and reports dropping objects frequently. The pain exacerbates with cold exposure, causing a raw sensation, and she has noticed swelling in the hand when overused. The patient has a history of Complex Regional Pain Syndrome (CRPS), which affects her autonomic nervous system, leading to symptoms such as temperature dysregulation and swelling. She has been evaluated for Raynaud's phenomenon, which can present with similar symptoms due to nerve involvement. The patient has undergone previous interventions, including a styloid block, which provided some relief but not complete resolution of symptoms. She is awaiting further evaluation for a potential stimulator placement. Pain Description - Onset and Timing: Persistent right hand pain, ongoing despite previous interventions. - Quality and Character: Pain exacerbates with cold exposure, causing a raw sensation. - Primary Location: Right hand. - Areas of Radiation: Pain extends down the arm. - Exacerbating Factors: Cold exposure, overuse of the hand. - Relieving Factors: Warming the hand. - Interference with Activities: Difficulty with fine motor tasks such as crushing pills, frequent dropping of objects. Physical Exam - Appears afebrile. - Alert and oriented. - Mood and affect appropriate. - Follows and participates in conversation appropriately. - TTP overlying dorsal right third/fourth MC interspace Results - Diagnostic Block: Right ulnar nerve block performed with ropivacaine 0.5%. Pain Management - Affect: Pain impacts daily activities and mood, causing frustration. - Analgesia: Previous styloid block provided partial relief. - Adverse Effects: None reported from current pain management. - Activities of Daily Living: Difficulty with fine motor tasks, such as crushing pills and frequent dropping of objects. - Aberrant Drug Related Behaviors: None reported. Procedure - Procedure: Right ulnar nerve block performed using ultrasound guidance. - Consent: Informed consent obtained prior to procedure. - Details: 25 gauge needle used to inject 5cc of ropivacaine 0.5% next to the right ulnar nerve. - Outcome: Patient tolerated the procedure well, and an image of the injection was saved. [facility] Medical History Esophageal spasm Hx of carcinoma of bladder Bladder carcinoma History of trigger finger Cervical radiculitis Chronic sinusitis GERD (gastroesophageal reflux disease) FRANCESCA (obstructive sleep apnea) CAD (coronary artery disease) History of primary hyperparathyroidism Non-toxic multinodular goiter Osteoporosis Pulmonary nodules H/O gastroesophageal reflux (GERD) HLD (hyperlipidemia) HTN (hypertension) COPD (chronic obstructive pulmonary disease) Asthma History of aneurysm Migraine Depression PTSD (post-traumatic stress disorder) History of panic attacks Anxiety Edema History of deviated nasal septum Medial epicondylitis of left elbow Fusion of spine, cervical region Surgical History History of carpal tunnel release Hx of cystoscopy H/O cervical spine surgery Hx of hand surgery Hx of right inguinal hernia repair History of hernia repair Hx of colonoscopy History of esophagogastroduodenoscopy (EGD) S/P repair of paraesophageal hernia H/O decompression of ulnar nerve Status post ablation of incompetent vein using laser History of cardiac catheterization History of eyelid surgery History of appendectomy History of parathyroidectomy History of cholecystectomy Hx of cataract surgery Hx of shoulder surgery S/P cubital tunnel release S/P arthroscopic surgery of right knee History of lumpectomy of both breasts History of hysterectomy Hx of adenoidectomy Hx of tonsillectomy Hx of eye surgery Family History Father Liver cancer Psoriasis Cancer Mental health disorder Mother Cervical cancer Ovarian cancer Heart attack Substance use disorder Social History Household Members: Children and None Housing: House Alcohol intake: current Alcohol intake frequency: does not drink Patient Tobacco Use Status: Former Tobacco user Tobacco use type: Cigarette e-Cigarette/Vaping Use: Never Used Second Hand Smoke Exposure: No service: No Current occupational status: employed 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, 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 Cognitive needs: No Hearing needs: No Vision needs: Yes Physical Exam Vital Signs: Last Vital Signs Pulse 84 12/01/24 09:52 Resp 16 12/01/24 09:52 BP 122/68 12/01/24 09:52 Pulse Ox 98 12/01/24 09:52 Oxygen Delivery Method Room Air 12/01/24 09:52 BMI result Body Mass Index 31.3 Assessment & Plan Assessment & Plan (1) Ulnar neuropathy: Code(s): G56.20 - Lesion of ulnar nerve, unspecified upper limb Category: Medical (2) CRPS (complex regional pain syndrome), type I, upper: Code(s): G90.519 - Complex regional pain syndrome I of unspecified upper limb Category: Medical Plan Plan Patient was informed and verbally consented to the use of an ambient scribe for clinic note documentation during this visit. 1. Complex Regional Pain Syndrome (Crps) - Continue monitoring symptoms and consider further interventions such as nerve stimulation if necessary. 2. Ulnar Neuropathy - Diagnostic ulnar nerve block performed to assess response and guide further treatment options. 3. Raynaud's Phenomenon - Monitor symptoms and manage temperature exposure to prevent exacerbations. Discussion Notes I discussed with the patient the diagnosis of Complex Regional Pain Syndrome and the role of the autonomic nervous system in her symptoms. We reviewed the potential benefits and risks of the diagnostic ulnar nerve block, and the patient consented to the procedure. We also talked about the possibility of nerve stimulation as a future treatment option if symptoms persist. Patient Instructions - Monitor symptoms and avoid cold exposure to prevent exacerbation of pain. - Follow up for evaluation of response to the nerve block and discuss further treatment options. Coding Level of Care Code Est Pt Level 4 (61284) Diagnoses Ulnar neuropathy G56.20 CRPS (complex regional pain syndrome), type I, upper G90.519 Comment w/ procedure
[2024-12-01 09:52] VITALS: BP 122/68; PULSE 84; RESP 16; O2SAT 98; BMI 31.3
--- OUTSIDE RECORDS SUMMARY | 2024-12-01 11:19 | XMS_ITS | Data Portability ---
Author Organization [place] - [facility], Allergy Address [address] [address] Care Team Providers Care Sed [employer] Teacher Name Role Phone BEBE VELASCO Primary Care [...] Address Organization Details Recorded Time Bilateral tinnitus 85039261870 02 Active 2018 Tinnitus, bilateral ; Note: Date Diagnosed : 09/16/2018 9:36 AM (H93.13) Not Available [facility] 4 03:05:03 Sensorine ural hearing loss of bilateral ears 276330904 Active 2018 Sensorine ural hearing loss, bilateral ; Note: Date Diagnosed : 09/16/2018 9:36 AM (H90.3) Not Available [facility] 4 03:05:03 Migraine with aura 0531555 Active 2018 Migraine with aura, not intractab le, without status migrainos us; Note: Date Diagnosed : 09/16/2018 9:50 AM (G43.109) Not Available [facility] 4 03:05:05 Dizziness and giddiness 208799851 Active 2018 Dizziness and giddiness ; Note: Date Diagnosed : 09/16/2018 9:36 AM (R42) Not Available [facility] 4 03:05:03 Gastroeso phageal reflux disease without esophagit is 961803103 Active 2018 Gastro-es ophageal reflux disease without esophagit is; Note: Date Diagnosed : 09/16/2018 9:57 AM (K21.9) Not Available [facility] 4 03:05:03 Headache 50158843 Active 2018 Facial pain NOS; Note: Date Diagnosed : 09/16/2018 9:50 AM (R51) Not Available [facility] 4 03:05:02 Recurrent acute sinusitis 765335635 Active 2024 HARPREET HALEY MD [address] [place] [address], [place], [phone] , [place] - [facility] 5 16:29:55 Allergic rhinitis 00051465 Active 2024 HARPREET HALEY MD [address] [place] [address],[place] [address], [place], [phone] , [place] - [facility] 5 16:30:02 Problem Notes None recorded. Procedures Surgical History Date Name Laterality Status Provider Name and Address Organization Details Recorded Time 03/12/2024 Comp Audio with Tymps - 62350 & 78574 completed ADALI ASKEW MA, CCC-A [address] [place] [address], [phone], [facility] 03/12/2024 16:00:59 03/12/2024 NasalEndosc [email or web address] completed HARPREET HALEY MD [address] [place] [address], [phone], [facility] 03/12/2024 16:29:37 Imaging Results None recorded. Procedure Notes None recorded. Medical Equipment None Reported. Allergies Allergen ID Allergen Name Allergen Category Reaction Reaction Severity Criticality Documentation Date Start Date Code Code System Note Provider Name and Address Organization Details Recorded Time 780292 tacrolimu s medicatio n Not available Not available Not available 03/12/2024 53567 RxNorm Zoraida Potvin null, [place] - [facility] 15:11:51 090121 Nexletol medicatio n Not available Not available Not available 03/12/2024 43273 09 RxNorm Zoraida Potvin [place], [place] [facility] 15:12:16 225383 Miebo medicatio n Not available Not available Not available 03/12/2024 59913 52 RxNorm Zoraida Potvin [place], [place] [facility] 15:12:27 512225 sulindac medicatio n Not available Not available Not available 03/12/2024 69939 RxNorm Zoraida Potvin null, [place] - [facility] 15:12:36 199566 Fosamax medicatio n Not available Not available Not available 03/12/2024 72323 5 RxNorm Zoraida Potvin null, [place] - [facility] 15:12:46 342950 latex environme nt,medica tion Not available Not available Not available 03/12/2024 01294 91 RxNorm Zoraida Potvin null, [place] - [facility] 15:13:27 298660 Dexilant medicatio n Not available Not available Not available 03/12/2024 24656 1 RxNorm Zoraida Marsh [facility] abdul - [facility] 5 15:13:54 966638 doxycycli ne Not available Not available Not available Not available 03/12/2024 3640 RxNorm Zoraida Marsh franko [place] - [facility] 5 15:14:23 Medications Name Sig Start [...] Smoking Status Former Smoker HARPREET HALEY MD [address] [place] [address],[place] [address], [place], [phone], [facility] - [facility] 03/12/2024 09:06:30 How Much Tobacco Do [...] Disorder N Anesthesia Complications N Heart Attack (DC) N Other Skin Condition N Diabetes N [...] Diagnosis SNOMED-CT Code Diagnosis ICD10 Code Diagnosis IMO Codes Diagnosis Note [id number] HARPREET HALEY MD [facility] [address] [phone] 03/12/2024 14:19:20 03/12/2024 16:35:50 Sensorineural hearing loss of bilateral ears [id number] H90.3 Audiologic al evaluation results: Right ear: Normal/ borderline normal hearing thru 1500Hz, sloping to a mild to severe SNHL with excellent word recognitio n. Left ear: Normal hearing thru 3000Hz dropping to a mild to severe SNHL with excellent word recognitio n. Tympanomet ry: Right Ear:Type A Left Ear:Type A Recurrent acute sinusitis [id number] J01.91 Allergic rhinitis 228552 04 J30.9 Health Concerns Section Related Observation LastModified by Organization Detai ls LastModified Time None Recorded Concern Status LastModified by Organization Details LastModified Time None Recorded Advance Directives Directive None Recorded Payers Insurance Date Sequence Insurance Name Policy Number Policy Gill Covered Member ID Gill Member ID Guarantor Name 03/12/2024 1 [employer] (MEDICARE SUPPLEMENT) Adali I Houde [id number] Adali I Houde 03/12/2024 1 [place] [facility] Adali I Houde [id number] Adali I Houde 03/12/2024 1 [employer] Adali I Houde [id number] Adali I Houde 05/26/[address] [facility] - MEDICARE PREFERRED (MEDICARE REPLACEMENT HMO) [id number] Adali I Houde [id number] Adali I Houde 05/26/[address] [place] [address] (MEDICARE REPLACEMENT/A DVANTAGE - PPO) [id number] Adali Holman [id number] Adali Holman Notes Date Note Type Note Provider Name and Address Organization Details Recorded Time 03/12/2024 text/html ROS as noted in the HPI tinnitustried hearing aid with poor tolerance recent [...] her sinus congestion symptoms HARPREET HALEY MD [address] [place] [address], [phone], [facility] - [facility] 03/12/2024 16:35:50 OBGyn Episode No OBEpisode recorded.
== END 2024-12-01 10:50 | disposition home or self-care (01) ==
LOC: HO.PMC 09:41
PROVIDERS: PCP Nurse Practitioner Family; Visit Provider Internal Medicine
DX: G56.21 Lesion of ulnar nerve, right upper limb (principal); G90.519 Complex regional pain syndrome I of unspecified upper limb
CPT/HCPCS: 64450; 77002; 99214

== ENCOUNTER → 2024-12-01 09:40 | Outpatient (BNVA) | payer OTHER, SELFPAY | PROVIDERS: PCP Nurse Practitioner Family; Visit Provider Internal Medicine | DX: G90.511 Complex regional pain syndrome I of right upper limb (principal); G56.21 Lesion of ulnar nerve, right upper limb; I73.00 Raynaud's syndrome without gangrene | CPT/HCPCS: 64450 ==

== ENCOUNTER 2024-12-06 08:02 | Outpatient (REF) | payer MEDICARE, OTHER, SELFPAY ==
--- NOTE | ~2024-12-06 | XR_ITS ---
EXAMINATION: XR CERVICAL SPINE CLINICAL INFORMATION: External bone growth, cervical spine area. COMPARISON: April 21, 2024 TECHNIQUE: AP oblique and lateral views. FINDINGS: Craniocervical junction is intact. Metallic plate at C4-5, intact. Anterior metallic plate from C6 to T1, intact. Bilateral neuroforamina stenosis secondary to marginal osteophyte formation C3-4, C4-5 levels mostly on the right side. Endplate sclerosis and marginal osteophyte formation at C3-4. Questionable 2 mm retrolisthesis C3-4. No lytic or blastic lesions. Vascular clips in the inferior prevertebral compartment/anterior lower neck. XR/XR cervical spine 4V IMPRESSION: Multilevel cervical spondylosis with questionable grade 1 retrolisthesis C3-4. Intact hardware endplates from prior arthrodesis, C4-5 and C6 T1 Electronically signed by: Rob Rivers MD 12/06/2024 09:14 AM EDT
--- OUTSIDE RECORDS SUMMARY | 2024-12-06 08:08 | XMS_ITS | Data Portability ---
Author Organization [place] - [facility], Allergy Address [address] [address] Care Team Providers Care Lead Printer Name Role Phone BEBE VELASCO Primary Care [...] Address Organization Details Recorded Time Bilateral tinnitus [id number] Active 2018 Tinnitus, bilateral ; Note: Date Diagnosed : 09/16/2018 9:36 AM (H93.13) Not Available [facility] 4 03:05:03 Sensorine ural hearing loss of bilateral ears [id number] Active 2018 Sensorine ural hearing loss, bilateral ; Note: Date Diagnosed : 09/16/2018 9:36 AM (H90.3) Not Available [facility] hospital 4 03:05:03 Migraine with aura 7790401 Active 2018 Migraine with aura, not intractab le, without status migrainos us; Note: Date Diagnosed : 09/16/2018 9:50 AM (G43.109) Not Available [facility] hospital 4 03:05:05 Dizziness and giddiness 290713146 Active 2018 Dizziness and giddiness ; Note: Date Diagnosed : 09/16/2018 9:36 AM (R42) Not Available Critical access hospital 4 03:05:03 Gastroeso phageal reflux disease without esophagit is 368711972 Active 2018 Gastro-es ophageal reflux disease without esophagit is; Note: Date Diagnosed : 09/16/2018 9:57 AM (K21.9) Not Available Critical access hospital 4 03:05:03 Headache 06422908 Active 2018 Facial pain NOS; Note: Date Diagnosed : 09/16/2018 9:50 AM (R51) Not Available Critical access hospital 4 03:05:02 Recurrent acute sinusitis 680876436 Active 2024 HARPREET HALEY MD [address] [place] [address], [place], [phone] , [place] - [facility] 5 16:29:55 Allergic rhinitis 47941877 Active 2024 HARPREET HALEY MD [address] [place] [address],[place] [address], [place], [phone] , [place] [facility] 5 16:30:02 Problem Notes None recorded. Procedures Surgical History Date Name Laterality Status Provider Name and Address Organization Details Recorded Time 03/12/2024 Comp Audio with Tymps - 01550 & 07614 completed ADALI ASKEW MA, CCC-A [address] [place] [address], [phone], [facility] 03/12/2024 16:00:59 03/12/2024 NasalEndosc opy_DP completed HARPREET HALEY MD [address] [place] [address], [phone], [facility] 03/12/2024 16:29:37 Imaging Results None recorded. Procedure Notes None recorded. Medical Equipment None Reported. Allergies Allergen ID Allergen Name Allergen Category Reaction Reaction Severity Criticality Documentation Date Start Date Code Code System Note Provider Name and Address Organization Details Recorded Time 515026 tacrolimu s medicatio n Not available Not available Not available 03/12/2024 70913 RxNorm Zoraida Potvin null, [place] - [facility] 15:11:51 923112 Nexletol medicatio n Not available Not available Not available 03/12/2024 71256 09 RxNorm Zoraida Potvin null, [place] [facility] 15:12:16 223548 Miebo medicatio n Not available Not available Not available 03/12/2024 75206 52 RxNorm Zoraida Potvin null, [place] [facility] 15:12:27 150105 sulindac medicatio n Not available Not available Not available 03/12/2024 24533 RxNorm Zoraida Potvin null, [place] [facility] 15:12:36 193586 Fosamax medicatio n Not available Not available Not available 03/12/2024 56579 5 RxNorm Zoraida Potvin null, [place] [facility] 15:12:46 035929 latex environme nt,medica tion Not available Not available Not available 03/12/2024 78540 91 RxNorm Zoraida Potvin null, [place] [facility] 15:13:27 674977 Dexilant medicatio n Not available Not available Not available 03/12/2024 76123 1 RxNorm Zoraida Marsh [place] abdul - [facility] 5 15:13:54 981665 doxycycli ne Not available Not available Not available Not available 03/12/2024 3640 RxNorm Zoraida Marsh franko [place] - [facility] 5 15:14:23 Medications Name Sig Start Date [...] Smoking Status Former Smoker HARPREET HALEY MD [address] [place] [address],[place] [address], [place], [phone], [facility] - [facility] 03/12/2024 09:06:30 How Much Tobacco Do You [...] ICD10 Code Diagnosis IMO Codes Diagnosis Note [id number] HARPREET HALEY MD [facility] [address] [address] 03/12/2024 14:19:20 03/12/2024 16:35:50 Sensorineural hearing loss of bilateral ears [id number] H90.3 Audiologic al evaluation results: Right ear: Normal/ borderline normal hearing thru 1500Hz, sloping to a mild to severe SNHL with excellent word recognitio n. Left ear: Normal hearing thru 3000Hz dropping to a mild to severe SNHL with excellent word recognitio n. Tympanomet ry: Right Ear:Type A Left Ear:Type A Recurrent acute sinusitis [id number] J01.91 Allergic rhinitis 412387 04 J30.9 Health Concerns Section Related Observation LastModified by Organization Detai ls LastModified Time None Recorded Concern Status LastModified by Organization Details LastModified Time None Recorded Advance Directives Directive None Recorded Payers Insurance Date Sequence Insurance Name Policy Number Policy Gill Covered Member ID Gill Member ID Guarantor Name 03/12/2024 1 [employer] (MEDICARE SUPPLEMENT) Adali I Houde [id number] Adali I Houde 03/12/2024 1 [place] [facility] Adali I Houde [id number] Adali I Houde 03/12/2024 1 [employer] Adali I Houde [id number] Adali I Houde 05/26/[address] [facility] - MEDICARE PREFERRED (MEDICARE REPLACEMENT HMO) [id number] Adali I Houde [id number] Adali I Houde 05/26/[address] [place] [address] (MEDICARE REPLACEMENT/A DVANTAGE - PPO) [id number] Adali Holman [id number] Adali Holman Notes Date Note Type Note [...] sinus congestion symptoms HARPREET HALEY MD [address] [place] [address], [phone], [facility] - [facility] 03/12/2024 16:35:50 OBGyn Episode No OBEpisode recorded.
== END 2024-12-06 08:03 | disposition home or self-care (01) ==
LOC: HO.HMGCX 08:02
PROVIDERS: PCP Nurse Practitioner Family; Visit Provider Neurological Surgery
DX: Z98.1 Arthrodesis status (principal); M48.8X2 Other specified spondylopathies, cervical region
CPT/HCPCS: 72050

== ENCOUNTER → 2024-12-06 08:37 | Outpatient (BNV) | payer OTHER, SELFPAY | PROVIDERS: PCP Nurse Practitioner Family; Visit Provider Radiology Diagnostic Radiology | DX: M25.78 Osteophyte, vertebrae (principal) | CPT/HCPCS: 72050 ==

== ENCOUNTER 2024-12-23 08:57 | Outpatient (AMB) | payer MEDICARE, SELFPAY ==
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
--- OUTSIDE RECORDS SUMMARY | 2024-12-23 09:39 | XMS_ITS | Clinical Summary ---
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 03/21/19 25 Active montelukast (SINGULAIR) 10 mg tablet Take 1 tablet (10 mg total) by mouth 1 (one) time each day. Active losartan (COZAAR) 50 mg tablet 02/22/19 25 Active LORazepam (ATIVAN) 0.5 mg tablet take 1 tablet orally daily as needed for anxiety Active ibuprofen (ADVIL,MOTRIN ) 600 mg tablet TAKE 1 TABLET EVERY 8 HOURSAS NEEDED FOR PAIN. TAKE ITWITH FOOD AND FULL GLASS OFWATER Active aspirin 81 mg chewable tablet Chew 1 tablet (81 mg total) 1 (one) time each day. Active cetirizine (ZyrTEC) 10 mg tablet Take 1 tablet (10 mg total) by mouth 1 (one) time each day. Active Repatha SureClick 140 mg/mL pen injector injection INJECT 140 MG SUBCUTANEOUSLY EVERY 2 WEEKS 05/26/19 25 Active levalbuterol (XOPENEX HFA) 45 mcg/actuation inhaler 2 PUFF INHALED EVERY 4 HOURS NEEDED FOR FOR WHEEZING 06/11/19 25 Active Jubbonti 60 mg/mL syringe syringe 12/01/19 25 Active fluocinolone acetonide oiL 0.01 % drops APPLY 2 DROPS PER EAR TWICE DAILY NEEDED FOR FLARES 10/23/19 25 Active tacrolimus (PROTOPIC) 0.1 % ointment APPLY TWICE DAILY TO EYELID DERMATITIS NEEDED 09/12/19 24 2024 Discontinued sucralfate (CARAFATE) 1 gram tablet take 1 tablet by mouth 2 times a day for 90 days 2024 Discontinued flunisolide (NASALIDE) 25 mcg (0.025 %) spray,non-aer osol USE 2 SPRAYS NASALLY TWICE DAILY FOR NASAL CONGESTION/RHINOR SHERMAN 12/23/19 24 2024 Discontinued Qvar RediHaler 80 mcg/actuation HFA aerosol breath activated inhaler INHALE 1 PUFF TWICE DAILY FOR 30 DAYS 2024 Discontinued hydroCHLOROth iazide 12.5 mg tablet Take 1 tablet (12.5 mg total) by mouth 1 (one) time each day. 05/14/19 25 2024 Discontinued cyclobenzapri ne (FLEXERIL) 5 mg tablet Take by mouth. 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 Gait is steady. [...] hand and has an appointment to see [facility] on July 14. She is welcome to see us in the future if there are any new concerns. Assessment & Plan (12/22/2024 9:13 AM EST): I reviewed the x-ray report with Ms. Holman noting the foraminal stenosis in the upper cervical regions right worse than left. The report does not discuss arthrodesis so I will get in touch with her once the actual images are available. Her history is complicated with underlying CRPS, history of radiculopathy from multilevel spondylosis and median and ulnar neuropathy. She is being followed by pain management, a hand surgeon and our office. At this point, I am recommending that she continue using the external bone stim, I will follow-up after seeing her x-rays but doubt that there are any more surgical options to offer her. Assessment & Plan (06/15/2024 4:41 PM EDT): [...] using it. C[facility]spine [facility] done yesterday at [facility] does not show any significant [...] is going to get in contact with [facility]. We talked about acupuncture and [...] Encounters Date Type Department Care Team Description 12/17/2024 11:45 AM EST Office Visit Neurosurgery [address] [place] [address] Gabby Rodriguez MD Cervical spondylosis (Primary Dx) from Last 3 Months Immunizations Immunization Administration Dates Next Due Influenza [...] 2024 06/29/2021, 11/19/2020, 04/04/2020, Additional history exists DTaP,Tdap,and Td Vaccines (2 - Td or Tdap) 12/12/2027 12/11/2017 Osteoporosis Screening (Bone Density Screening) 02/03/2028 02/02/2018 Breast Cancer Screening Discontinued 02/02/2018 Pneumococcal Vaccine: 50+ Years Completed 10/30/2022, 11/18/2016, 10/27/2015 RSV Immunization Adult Patients Completed 11/01/2022 Influenza Vaccine Completed 11/10/2024, , 11/10/2020, Additional history exists HIB Vaccines Aged Out [...] Procedure Name Priority Date/Time Associated Diagnosis Comments EXTERNAL XRAY REPORT Routine 12/06/2024 12:46 PM EDT [facility] DEXA AXIAL SKELETON Routine 02/02/2018 9:04 AM EST Encounter for screening for osteoporosis [facility] SCREENING DIGITAL Routine 02/02/2018 8:35 AM EST Encounter for screening mammogram for malignant neoplasm of breast from Last 3 Months or Most Recently Relevant to Health Maintenance Results * External Xray Report (12/06/2024 12:46 PM EDT) Anatomical Region Laterality Modality Radiographic Elissa ging us Historical Provider MD CODY XR PROCEDURES Final R esult * [facility] DEXA AXIAL SKELETON (02/02/2018 9:04 AM EST) Anatomical Region Laterality Modality Mammography 02/02/2018 7:11 AM EST Narrative 02/02/2018 9:04 AM EST [facility] Diagnostic Imaging Department [address] [place] [address] Patient: ADALI HOLMAN Hari /Age/Sex: 1950 - 67 - F Unit#: [id number] Location/Status: [facility]/REG CLI Mnemonic/[facility] Ordering Physician: KATERINA TOLBERT MD [facility] Dexa Axial Skeleton - 02/02/1849 HISTORY: The [...] probability of hip fracture of 11.3%. Code 26876 Dictating Physician: GALINA KUO MD Electronically Signed by: GALINA KUO MD Dic Date/Time: 02/02/18901 Sign date/Time: 02/02/18903 Procedure Note Galina Kuo MD - 01/29/2022 [facility] Diagnostic Imaging Department [address] [place], [place] [address] Patient: HOUDE,ADALI I /Age/Sex: 1950 - 67 - F Unit#: [id number] Location/Status: [facility]/REG CLI Mnemonic/Ordering Site: [facility]X/SPMAM Ordering Physician: KATERINA TOLEBRT MD [facility] Dexa Axial Skeleton - 02/02/18748 [...] density of the femurs bilaterally is 0.707 gm/ib3odrst is 70% of that of young normals [...] probability of hip fracture of 11.3%. Code 71725 Dictating Physician: GALINA KUO MD Electronically Signed by: GALINA KUO MD Dic Date/Time: 02/02/18901 Sign date/Time: 02/02/18903 us Katerina Tolbert MD IMG BI PROCEDURES Final Re sult * [facility] SCREENING DIGITAL (02/02/2018 8:35 AM EST) Anatomical Region Laterality Modality Mammography 02/02/2018 7:10 AM EST Narrative 02/02/2018 8:35 AM EST [facility] Diagnostic Imaging Department [address] [place] [address] Patient: ADALI HOLMAN Hari /Age/Sex: 1950 - 67 - F Unit#: [id number] [facility]Ordering Site: [facility] Ordering Physician: JEANETTE CARRERA MD [facility] Screening Digital - 02/02/18 - 0749 INDICATION: SCREENING COMPARISON: [facility] mammograms dating back to 01/12/2013 FINDINGS: CC and MLO views of the breasts were obtained, using full field digital mammography with 3D tomosynthesis views in the MLO projection. Computer aided detection with the [employer] 7.2-H was employed. Benign bilateral breast biopsies [...] a target date for the next mammogram. ([id number] / [id number]) , 05262 Dictating Physician: TONI SHRESTHA MD Electronically Signed by: TONI SHRESTHA MD Dic Date/Time: 02/02/18829 Sign date/Time: 02/02/18834 Procedure Note Toni Shrestha MD - 01/29/2022 [facility] Diagnostic Imaging Department [address] [place], [place] [address] Patient: ADALI HOLMAN I /Age/Sex: 1950 67 - F Unit#: [id number] Location/Status: [facility] CLI Mnemonic/Ordering Site: [facility] Ordering Physician: JEANETTE CARRERA MD [facility] [...] date for the next mammogram. 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
--- OUTSIDE RECORDS SUMMARY | 2024-12-23 09:39 | XMS_ITS | Patient Health Record ---
Author Organization [facility] Address [address] [place] [address] Care Team Providers Care Donor Services Manager Name Role Phone Augustine Carrera M.D. Primary Care Provider Ruth Manas Blas Unavailable [phone] Allergies Allergen (clinical drug ingredient) Drug/Non Drug [...] Furosemide 10mg Acti ve Qvar 40mcg Active [place]/FS Body 0.01% Active Vitamin D 2400 Activ e Losartan Potassium 25mg Active ZyrTEC 10mg Active Ventolin HFA Active Multi Vitamin/Minerals Active Artificial Tears Act hai Problems Problem Type SNOMED Code ICD Code Onset Dates Problem Status W/U Status Risk Notes Problem Irritable bowel syndrome (13957553) Irritable bowel syndrome (564.1) Active confirmed Problem Diarrhea (89082251) Diarrhea (787.91) Active confirmed Problem Generalized abdominal pain (083897781) Abdominal pain, generalized (789.07) Active confirmed Problem Constipation (23998818) Constipation (564.00) Active confirmed Problem Gastroesophageal reflux disease (986193766) GERD (gastroesophage al reflux disease) (530.81) Active confirmed Problem Epigastric pain (78877234) Abdominal discomfort, epigastric (789.06) Active confirmed Problem Gas (72375335) Gas (787.3) Active confirmed Plan Of Treatment Future Test Test Name Order Date UPPER GI ENDOSCOPY 08/15/2011 Insurance Providers Payer Name Payer Address Payer Phone Subscriber Number Group Number Insured Name Patient Relationship to Insured Coverage Start Date Coverage End Date MEDICARE OF [place] [address] [place] [address] [id number] JORGITO ALCANTARA Self - patient is the insured MEDICAID OF [facility] [address] [place] [address] [id number] JORGITO ALCANTARA Self - patient is the insured Medical (General) History Medical History History ICD Code screening colonoscopy 07-23-2006--neg. fo r polyps EGD 06-11-1999 and 02/17 negative for signi ficant esophagitis nor ulcer disease GERD hx of duodenal ulcer in the s Denies VT,DM,CVA,renal disease irregular heart beat elevated chloresterol hypertension osteoporosis Hiatal hernia Denies VT,DM,CVA,renal disease Mild asthma Anxiety Negative cardiac catheterization [...]
--- OUTSIDE RECORDS SUMMARY | 2024-12-23 09:39 | XMS_ITS | Patient Health Record ---
Author Organization [facility] Address [address] [place] [address] Care Team Providers Care Grey Percher Name Role Phone BEBE VELASCO M.D Primary Care Provider LIZANDRO Bean Unavailable [phone] Allergies Allergen (clinical drug ingredient) Drug/Non Drug Allergy documented on EMR Reaction Allergy Type Onset Date Status 12 Hour Nasal [place] Unknown Drug Allergy Active risedronate Actonel Unknown [...] Status Risk Notes Problem Postmenopausal atrophic vaginitis (96717760) Postmenopausal atrophic vaginitis (N95.2) Active confirmed Problem Age-related osteoporosis (069969769) Age-related osteoporosis without current pathological fracture (M81.0) Active confirmed Problem Essential hypertension (21950206) Essential (primary) hypertension (I10) Active confirmed Problem Hyperlipidemia (71858179) Hyperlipidemia, unspecified (E78.5) Active confirmed Problem Uncomplicated asthma (disorder) (907663409) Unspecified asthma, uncomplicated (J45.909) Active confirmed Problem Gastro-esophageal reflux disease without esophagitis (374411324) Gastro-esophageal reflux disease without esophagitis (K21.9) Active confirmed Plan Of Treatment No Information Insurance Providers Payer Name Payer Address Payer Phone Subscriber Number Group Number Insured Name Patient Relationship to Insured Coverage Start Date Coverage End Date MEDICARE [address] [facility] [place] [id number] LAURENT JORGITO Self - patient is the [...]
--- OUTSIDE RECORDS SUMMARY | 2024-12-23 09:39 | XMS_ITS | Data Portability ---
Author Organization MD - [facility] Address [address] [address] Care Team Providers Care Radio Reporter Name Role Phone BEBE VELASCO Primary Care [...] Address Organization Details Recorded Time Bilateral tinnitus 42062872830 02 Active 2018 Tinnitus, bilateral ; Note: Date Diagnosed : 09/16/2018 9:36 AM (H93.13) Not Available [facility] 4 03:05:03 Sensorine ural hearing loss of bilateral ears 496468575 Active 2018 Sensorine ural hearing loss, bilateral ; Note: Date Diagnosed : 09/16/2018 9:36 AM (H90.3) Not Available [facility] 4 03:05:03 Migraine with aura 1510757 Active 2018 Migraine with aura, not intractab le, without status migrainos us; Note: Date Diagnosed : 09/16/2018 9:50 AM (G43.109) Not Available [facility] 4 03:05:05 Dizziness and giddiness 912947834 Active 2018 Dizziness and giddiness ; Note: Date Diagnosed : 09/16/2018 9:36 AM (R42) Not Available [facility] 4 03:05:03 Gastroeso phageal reflux disease without esophagit is 593370110 Active 2018 Gastro-es ophageal reflux disease without esophagit is; Note: Date Diagnosed : 09/16/2018 9:57 AM (K21.9) Not Available [facility] 4 03:05:03 Headache 92282348 Active 2018 Facial pain NOS; Note: Date Diagnosed : 09/16/2018 9:50 AM (R51) Not Available [facility] 4 03:05:02 Recurrent acute sinusitis 078778620 Active 2024 HARPREET HALEY MD [address] [place] [address], [place], [address] , [place] - [facility] 5 16:29:55 Allergic rhinitis 15274913 Active 2024 HARPREET HALEY MD [address] [place] [address],[place] [address], [place], [phone] , [place] - [facility] 5 16:30:02 Problem Notes None recorded. Procedures Surgical History Date Name Laterality Status Provider Name and Address Organization Details Recorded Time 03/12/2024 Comp Audio with Tymps - 06420 & 28003 completed ADALI ASKEW [place], CCC-A [address] [place] [address], [phone], [facility] 03/12/2024 16:00:59 03/12/2024 NasalEndosc opy_DP completed HARPREET HALEY MD [address] [place] [address], [phone], [facility] 03/12/2024 16:29:37 Imaging Results None recorded. Procedure Notes None recorded. Medical Equipment None Reported. Allergies Allergen ID Allergen Name Allergen Category Reaction Reaction Severity Criticality Documentation Date Start Date Code Code System Note Provider Name and Address Organization Details Recorded Time 186963 tacrolimu s medicatio n Not available Not available Not available 03/12/2024 66009 RxNorm Zoraida Potvin null, [place] - [facility] 15:11:51 705246 Nexletol medicatio n Not available Not available Not available 03/12/2024 03485 09 RxNorm Zoraida Potvin null, [place] - [facility] 15:12:16 537003 Miebo medicatio n Not available Not available Not available 03/12/2024 43872 52 RxNorm Zoraida Potvin null, [place] - [facility] 15:12:27 220096 sulindac medicatio n Not available Not available Not available 03/12/2024 97973 RxNorm Zoraida Potvin null, [place] - [facility] 15:12:36 744054 Fosamax medicatio n Not available Not available Not available 03/12/2024 46226 5 RxNorm Zoraida Potvin null, [place] - [facility] 15:12:46 093583 latex environme nt,medica tion Not available Not available Not available 03/12/2024 97365 91 RxNorm Zoraida Potvin null, [place] - [facility] 15:13:27 762802 Dexilant medicatio n Not available Not available Not available 03/12/2024 14327 1 RxNorm Zoraida Marsh CONSUELO abdul - [facility] 5 15:13:54 181982 doxycycli ne Not available Not available Not available Not available 03/12/2024 3640 RxNorm Zoraida Marsh franko [place] - [facility] 5 15:14:23 Medications Name Sig Start Date [...] Smoking Status Former Smoker HARPREET HALEY MD [address] [place] [address],[place] [address], [place], [phone], [facility] - [facility] 03/12/2024 09:06:30 How Much Tobacco Do You [...] Disorder N Anesthesia Complications N Heart Attack (SD) N Other Skin Condition N Diabetes N [...] ICD10 Code Diagnosis IMO Codes Diagnosis Note [id number] HARPREET HALEY MD [facility] [address] [address] 03/12/2024 14:19:20 03/12/2024 16:35:50 Sensorineural hearing loss of bilateral ears 340600305 H90.3 Audiologic al evaluation results: Right ear: Normal/ borderline normal hearing thru 1500Hz, sloping to a mild to severe SNHL with excellent word recognitio n. Left ear: Normal hearing thru 3000Hz dropping to a mild to severe SNHL with excellent word recognitio n. Tympanomet ry: Right Ear:Type A Left Ear:Type A Recurrent acute sinusitis 394451765 J01.91 Allergic rhinitis 046264 04 J30.9 Health Concerns Section Related Observation LastModified by Organization Detai ls LastModified Time None Recorded Concern Status LastModified by Organization Details LastModified Time None Recorded Advance Directives Directive None Recorded Payers Insurance Date Sequence Insurance Name Policy Number Policy Gill Covered Member ID Gill Member ID Guarantor Name 03/12/2024 1 [employer] (MEDICARE SUPPLEMENT) Adali I Houde [id number] Adali I Houde 03/12/2024 1 [place] [facility] Adali I Houde [id number] Adali I Houde 03/12/2024 1 [employer] Adali I Houde [id number] Adali I Houde 05/26/2024 1 [facility] - MEDICARE PREFERRED (MEDICARE REPLACEMENT HMO) [id number] Adali I Houde [id number] Adali I Houde 05/26/[address] [place] [address] (MEDICARE REPLACEMENT/A DVANTAGE - PPO) [id number] Adali Holman [id number] Adali Holman Notes Date Note Type Note [...] her sinus congestion symptoms HARPREET HALEY MD [address] [place] [address], [phone], [facility] - [facility] 03/12/2024 16:35:50 OBGyn Episode No OBEpisode recorded.
== END 2024-12-23 09:50 | disposition home or self-care (01) ==
PROVIDERS: PCP Nurse Practitioner Family; Visit Provider Clinical Nurse Specialist Psychiatric/Mental Health
DX: F43.12 Post-traumatic stress disorder, chronic (principal); F41.0 Panic disorder [episodic paroxysmal anxiety]
CPT/HCPCS: 99214

== ENCOUNTER → 2024-12-23 08:57 | Outpatient (BNVA) | payer MEDICARE, OTHER, SELFPAY | PROVIDERS: PCP Nurse Practitioner Family; Visit Provider Clinical Nurse Specialist Psychiatric/Mental Health | DX: F43.12 Post-traumatic stress disorder, chronic (principal); F41.0 Panic disorder [episodic paroxysmal anxiety] | CPT/HCPCS: 99212 ==

== ENCOUNTER 2024-12-27 10:38 | Outpatient (AMB) | payer MEDICARE, SELFPAY ==
--- NOTE | 2024-12-27 10:43 | MHC.OFFVIS ---
Vital Signs 12/27/24 10:47 Height 4 ft 11 in Weight 157 lb BMI 31.7 BP 130/86 Blood Pressure Location Lt brachial Position Sitting Respiration 16 Pulse 80 Pulse Source Pulse Oximeter Intake Visit Reasons: Follow Up Pt. 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: No Allergies dexlansoprazole (From DEXILANT) Allergy (Severe, Verified 12/27/24 10:48) dizziness, change in HR risedronate sodium (From ACTONEL) Allergy (Severe, Verified 12/27/24 10:48) chest discomfort Wlwhhfv-ZDI-YzD Reductase Inhibitor (JGGVDID-YIH-XNS REDUCTASE INHIBITOR) Allergy (Severe, Verified 12/27/24 10:48) JOINT PAIN tramadol (TRAMADOL) Allergy (Severe, Verified 12/27/24 10:48) THROAT TIGHTNESS amlodipine (AMLODIPINE) Allergy (Intermediate, Verified 12/27/24 10:48) PALIPITATIONS Atrovent Allergy (Intermediate, Verified 12/27/24 10:48) Cough baclofen (BACLOFEN) Allergy (Intermediate, Verified 12/27/24 10:48) LETHARGY Beta-Blockers (Beta-Adrenergic Bloc Allergy (Intermediate, Verified 12/27/24 10:48) BRADYCARDIA budesonide (From SYMBICORT) Allergy (Intermediate, Verified 12/27/24 10:48) HOARSENESS Chocolate Allergy (Intermediate, Verified 12/27/24 10:48) GERD ezetimibe (From ZETIA) Allergy (Intermediate, Verified 12/27/24 10:48) JOINT PAIN, ELEVATED CPK fluticasone (From ADVAIR DISKUS) Allergy (Intermediate, Verified 12/27/24 10:48) HTN glucosamine Allergy (Intermediate, Verified 12/27/24 10:48) LE edema ibandronate sodium (From BONIVA) Allergy (Intermediate, Verified 12/27/24 10:48) CHEST PAIN latex (LATEX) Allergy (Intermediate, Verified 12/27/24 10:48) RASH-SENSITIVITY lisinopril (LISINOPRIL) Allergy (Intermediate, Verified 12/27/24 10:48) COUGH, really bad cough meloxicam (From MOBIC) Allergy (Intermediate, Verified 12/27/24 10:48) GI UPSET mometasone furoate (From DULERA) Allergy (Intermediate, Verified 12/27/24 10:48) COUGH niacin Allergy (Intermediate, Verified 12/27/24 10:48) Flushing Penicillins (PENICILLINS) Allergy (Intermediate, Verified 12/27/24 10:48) RASH pregabalin (From LYRICA) Allergy (Intermediate, Verified 12/27/24 10:48) GERD flare up raloxifene (From EVISTA) Allergy (Intermediate, Verified 12/27/24 10:48) GERD rofecoxib (From Vioxx) Allergy (Intermediate, Verified 12/27/24 10:48) ankle swelling salmeterol (From ADVAIR DISKUS) Allergy (Intermediate, Verified 12/27/24 10:48) HTN scallops (SCALLOPS) Allergy (Intermediate, Verified 12/27/24 10:48) NAUSEA & VOMITING sertraline (From ZOLOFT) Allergy (Intermediate, Verified 12/27/24 10:48) SKIN CRAWLING spironolactone (SPIRONOLACTONE) Allergy (Intermediate, Verified 12/27/24 10:48) RASH, ?? psoriasis strawberry (STRAWBERRY) Allergy (Intermediate, Verified 12/27/24 10:48) ITCHING tiotropium (From SPIRIVA WITH HANDIHALER) Allergy (Intermediate, Verified 12/27/24 10:48) RAW THROAT, pharyngitis verapamil (VERAPAMIL) Allergy (Intermediate, Verified 12/27/24 10:48) IRREGULAR HEARTBEAT esomeprazole (Nexium) Allergy (Mild, Verified 12/27/24 10:48) did not resolve GERD naproxen (From ALEVE) Allergy (Mild, Verified 12/27/24 10:48) FLUSH omeprazole Allergy (Mild, Verified 12/27/24 10:48) did not resolve GERD tacrolimus Allergy (Mild, Verified 12/27/24 10:48) Rash adhesive (ADHESIVE) Allergy (Unknown, Verified 12/27/24 10:48) RASH doxycycline (DOXYCYCLINE) Allergy (Unknown, Verified 12/27/24 10:48) SEVERE NOYOLA, HEARTBURN, joint pain gabapentin (From NEURONTIN) Allergy (Unknown, Verified 12/27/24 10:48) leg swelling, SOB metoclopramide (From REGLAN) Allergy (Unknown, Verified 12/27/24 10:48) LETHARGY monosodium glutamate (MSG) Allergy (Unknown, Verified 12/27/24 10:48) HEADACHE, increased HR lifitegrast (From Xiidra) Allergy (Verified 12/27/24 10:48) blurred vision, headache, eye swelling metoprolol Adverse Reaction (Severe, Verified 12/27/24 10:48) Severe bradycardia alendronate sodium (From Fosamax) Adverse Reaction (Intermediate, Verified 12/27/24 10:48) Joint Pain amitriptyline Adverse Reaction (Intermediate, Verified 12/27/24 10:48) Agitated cyclosporine (From Cequa) Adverse Reaction (Intermediate, Verified 12/27/24 10:48) Eye Swelling fluticasone furoate (From Trelegy Ellipta) Adverse Reaction (Intermediate, Verified 12/27/24 10:48) asthma exacerbation perfluorohexyloctane (From Miebo) Adverse Reaction (Intermediate, Verified 12/27/24 10:48) Eye Swelling tobramycin (From Tobrex) Adverse Reaction (Intermediate, Verified 12/27/24 10:48) Eye Swelling umeclidinium (From Trelegy Ellipta) Adverse Reaction (Intermediate, Verified 12/27/24 10:48) asthma exacerbation vilanterol (From Trelegy Ellipta) Adverse Reaction (Intermediate, Verified 12/27/24 10:48) asthma exacerbation azelastine Adverse Reaction (Mild, Verified 12/27/24 10:48) Gastrointestinal Upset hi Adverse Reaction (Intermediate, Uncoded 12/27/24 10:48) Itchy Eyes Sulindac Adverse Reaction (Intermediate, Uncoded 12/27/24 10:48) Nausea, pain Medication List - Last Reconciled 12/27/24 by Jackie Pryor LPN acetaminophen ER (Tylenol Arthritis Pain) 650 mg PO Q12H aspirin (Adult Aspirin Regimen) 81 mg PO DAILY beclomethasone dipropionate 80 mcg/actuation (Qvar RediHaler) 1 inh inhalation BID 30 days Bifidobacterium infantis (Align (B.infantis)) 4 mg PO DAILY cetirizine (Zyrtec) 10 mg PO DAILY PRN cholecalciferol (vitamin D3) 25 mcg PO DAILY 30 days cyclosporine 0.05% (Restasis) 1 drp ophthalmic (eye) Q12H denosumab (Prolia) 60 mg subcut Q0QPINNT dextran 70-hypromellose (PF) 0.1-0.3 % (Artificial Tears (PF)) 1 drp ophthalmic (eye) BEDTIME docusate sodium (Colace) 100 mg PO BID flunisolide 2 sprays intranasal BID PRN levalbuterol tartrate 45 mcg/actuation 2 puffs inhalation Q4H PRN lorazepam (Ativan) 0.5 mg PO BID PRN losartan 50 mg PO DAILY losartan-hydrochlorothiazide 50-12.5 mg 1 tab PO DAILY mesalamine ER (Pentasa) 1,000 mg (2 x 500 mg) PO BID 90 days montelukast 10 mg PO DAILY 90 days pantoprazole 40 mg PO BID Repatha SureClick (evolocumab) 140 mg subcut Q2W NS sucralfate 1 g PO BID 90 days HPI HPI Follow Up Pt. Request/Discuss X-Ray Results: Details: History of Present Illness The patient is a 74-year-old female presenting with exacerbation of pain symptoms. The patient reports a flare-up of pain starting from the neck, extending down behind the shoulder, and affecting the entire arm, with significant pain in the pinky finger and elbow. The pain began approximately 10 days ago and has been progressively worsening. The patient has a history of cervical radiculopathy, with symptoms exacerbated by neck movements, causing pain to radiate down the arm and behind the shoulder blade. She experiences muscle spasms in the jaw area and tenderness in the neck. The patient also has ulnar neuropathy, with pain and numbness affecting the elbow and wrist, and a history of unsuccessful interventions including a stellate ganglion block. She is considering surgical release at the wrist or elbow as a potential intervention. The patient has osteoporosis, which may be contributing to her neck issues, and she is currently on treatment to improve bone density. Additionally, she has osteoarthritis, which is contributing to her overall joint pain and discomfort. Pain Description - Onset: Approximately 10 days ago, progressively worsening - Quality: Radiating pain from neck to arm, muscle spasms in jaw - Location: Neck, shoulder, arm, pinky finger, elbow - Exacerbating factors: Neck movements - Relieving factors: None mentioned - Interference: Affects sleep, daily activities, causes emotional distress Pain Management - Affect: Increased anxiety and emotional distress due to pain - Analgesia: Currently using ibuprofen, considering Metaxalone for muscle relaxation - Adverse Effects: Stomach issues with NSAIDs - Activities of Daily Living: Pain interferes with sleep and daily functioning - Aberrant Drug Related Behaviors: None reported PFS Medical History Esophageal spasm Hx of carcinoma of bladder Bladder carcinoma History of trigger finger Cervical radiculitis Chronic sinusitis GERD (gastroesophageal reflux disease) FRANCESCA (obstructive sleep apnea) CAD (coronary artery disease) History of primary hyperparathyroidism Non-toxic multinodular goiter Osteoporosis Pulmonary nodules H/O gastroesophageal reflux (GERD) HLD (hyperlipidemia) HTN (hypertension) COPD (chronic obstructive pulmonary disease) Asthma History of aneurysm Migraine Depression PTSD (post-traumatic stress disorder) History of panic attacks Anxiety Edema History of deviated nasal septum Medial epicondylitis of left elbow Fusion of spine, cervical region Surgical History History of carpal tunnel release Hx of cystoscopy H/O cervical spine surgery Hx of hand surgery Hx of right inguinal hernia repair History of hernia repair Hx of colonoscopy History of esophagogastroduodenoscopy (EGD) S/P repair of paraesophageal hernia H/O decompression of ulnar nerve Status post ablation of incompetent vein using laser History of cardiac catheterization History of eyelid surgery History of appendectomy History of parathyroidectomy History of cholecystectomy Hx of cataract surgery Hx of shoulder surgery S/P cubital tunnel release S/P arthroscopic surgery of right knee History of lumpectomy of both breasts History of hysterectomy Hx of adenoidectomy Hx of tonsillectomy Hx of eye surgery Family History Father Liver cancer Psoriasis Cancer Mental health disorder Mother Cervical cancer Ovarian cancer Heart attack Substance use disorder Social History Household Members: Children and None Housing: House Alcohol intake: current Alcohol intake frequency: does not drink Patient Tobacco Use Status: Former Tobacco user Tobacco use type: Cigarette e-Cigarette/Vaping Use: Never Used Second Hand Smoke Exposure: No service: No Current occupational status: employed 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, 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 Cognitive needs: No Hearing needs: No Vision needs: Yes Physical Exam Vital Signs: Last Vital Signs Pulse 80 12/27/24 10:47 Resp 16 12/27/24 10:47 BP 130/86 12/27/24 10:47 BMI result Body Mass Index 31.7 Assessment & Plan Assessment & Plan (1) CRPS (complex regional pain syndrome), type I, upper: Code(s): G90.519 - Complex regional pain syndrome I of unspecified upper limb Category: Medical (2) Neuropathy of right ulnar nerve at wrist: Code(s): G56.21 - Lesion of ulnar nerve, right upper limb Category: Medical (3) Cervical radiculitis: Code(s): M54.12 - Radiculopathy, cervical region Category: Medical Plan Plan Patient was informed and verbally consented to the use of an ambient scribe for clinic note documentation during this visit. 1. Cervical Radiculopathy - Consideration of spinal cord stimulator for pain management if so desired for cervical postlaminectomy pain/radiculitis. - Discussion of surgical options and potential benefits 2. Ulnar Neuropathy/CRPS - Surgical release at wrist or elbow considered - Nerve stimulator as a less invasive option 3. Osteoporosis - Continued treatment to improve bone density Discussion Notes I discussed with the patient the potential benefits and risks of a spinal cord stimulator for managing cervical radiculopathy, emphasizing its reversibility compared to surgical options. We also considered surgical release for ulnar neuropathy, weighing it against less invasive nerve stimulator options. The patient was advised to continue osteoporosis treatment and manage osteoarthritis symptoms. Patient Instructions - Continue current osteoporosis treatment as prescribed. - Consider discussing surgical options with your specialist for ulnar neuropathy. - Use Metaxalone sparingly for muscle relaxation, as needed. - Monitor pain levels and report any significant changes. Medications: New metaxalone 800 mg PO TID PRN 30 tabs 2RF muscle pain Coding Level of Care Code Est Pt Level 4 (61538) Diagnoses CRPS (complex regional pain syndrome), type I, upper G90.519 Neuropathy of right ulnar nerve at wrist G56.21 Cervical radiculitis M54.12
[2024-12-27 10:47] VITALS: BP 130/86; PULSE 80; RESP 16; BMI 31.7
--- OUTSIDE RECORDS SUMMARY | 2024-12-27 22:00 | XMS_ITS | Data Portability ---
Author Organization [place] - [facility], Allergy Address [address] [address] Care Team Providers Care Director Script Name Role Phone BEBE VELASCO Primary Care [...] Address Organization Details Recorded Time Bilateral tinnitus 02942281177 02 Active 2018 Tinnitus, bilateral ; Note: Date Diagnosed : 09/16/2018 9:36 AM (H93.13) [facility] Available [facility] 03:[facility]:03 Sensorine ural hearing loss of bilateral ears 085766220 Active 2018 Sensorine ural hearing loss, bilateral ; Note: Date Diagnosed : 09/16/2018 9:36 AM (H90.3) Not Available [facility] 03:05:03 Migraine with aura 3260705 Active 2018 Migraine with aura, not intractab le, without status migrainos us; Note: Date Diagnosed : 09/16/2018 9:50 AM (G43.109) Not Available [facility] 03:05:05 Dizziness and giddiness 833960024 Active 2018 Dizziness and giddiness ; Note: Date Diagnosed : 09/16/2018 9:36 AM (R42) Not Available [facility] 03:05:03 Gastroeso phageal reflux disease without esophagit is 615123433 Active 2018 Gastro-es ophageal reflux disease without esophagit is; Note: Date Diagnosed : 09/16/2018 9:57 AM (K21.9) Not Available [facility] 03:05:03 Headache 16017748 Active 2018 Facial pain NOS; Note: Date Diagnosed : 09/16/2018 9:50 AM (R51) Not Available [facility] 03:05:02 Recurrent acute sinusitis 313256560 Active 2024 HARPREET HALEY MD [address] [place] [address], [place], [phone] , [place] - [facility] 5 16:29:55 Allergic rhinitis 82215237 Active 2024 HARPREET HALEY MD [address] [place] [address],[place] [address], [place], [phone] , [place] - [facility] 5 16:30:02 Problem Notes None recorded. Procedures Surgical History Date Name Laterality Status Provider Name and Address Organization Details Recorded Time 03/12/2024 Comp Audio with Tymps - 15332 & 73898 completed ADALI ASKEW MA, CCC-A [address] [place] [address], [phone], [facility] 03/12/2024 16:00:59 03/12/2024 NasalEndosc opy_DP completed HARPREET HALEY MD [address] [place] [address], [phone], [facility] 03/12/2024 16:29:37 Imaging Results None recorded. Procedure Notes None recorded. Medical Equipment None Reported. Allergies Allergen ID Allergen Name Allergen Category Reaction Reaction Severity Criticality Documentation Date Start Date Code Code System Note Provider Name and Address Organization Details Recorded Time 398611 tacrolimu s medicatio n Not available Not available Not available 03/12/2024 79607 RxNorm Zoraida Potvin null, [place] - [facility] 15:11:51 023747 Nexletol medicatio n Not available Not available Not available 03/12/2024 75782 09 RxNorm Zoraida Potvin [place], [place] [facility] 15:12:16 502812 Miebo medicatio n Not available Not available Not available 03/12/2024 96424 52 RxNorm Zoraida Potvin null, [place] [facility] 15:12:27 954149 sulindac medicatio n Not available Not available Not available 03/12/2024 08686 RxNorm Zoraida Potvin null, [place] - [facility] 15:12:36 026844 Fosamax medicatio n Not available Not available Not available 03/12/2024 26432 5 RxNorm Zoraida Potvin null, [place] [facility] 15:12:46 130747 latex environme nt,medica tion Not available Not available Not available 03/12/2024 09819 91 RxNorm Zoraida Potvin null, [place] [facility] 15:13:27 998372 Dexilant medicatio n Not available Not available Not available 03/12/2024 87865 1 RxNorm Zoraida Marsh [place] abdul - [facility] 5 15:13:54 746330 doxycycli ne Not available Not available Not available Not available 03/12/2024 3640 RxNorm Zoraida Marsh franko [place] - [facility] 5 15:14:23 Medications Name Sig Start [...] Smoking Status Former Smoker HARPREET HALEY MD [address] [place] [address],[place] [address], [place], [phone], [facility] - [facility] 03/12/2024 09:06:30 How Much Tobacco Do [...] ICD10 Code Diagnosis IMO Codes Diagnosis Note [id number] HARPREET HALEY MD [facility] [address] [address] 03/12/2024 14:19:20 03/12/2024 16:35:50 Sensorineural hearing loss of bilateral ears 884879919 H90.3 Audiologic al evaluation results: Right ear: Normal/ borderline normal hearing thru 1500Hz, sloping to a mild to severe SNHL with excellent word recognitio n. Left ear: Normal hearing thru 3000Hz dropping to a mild to severe SNHL with excellent word recognitio n. Tympanomet ry: Right Ear:Type A Left Ear:Type A Recurrent acute sinusitis 222059913 J01.91 Allergic rhinitis 414875 04 J30.9 Health Concerns Section Related Observation LastModified by Organization Detai ls LastModified Time None Recorded Concern Status LastModified by Organization Details LastModified Time None Recorded Advance Directives Directive None Recorded Payers Insurance Date Sequence Insurance Name Policy Number Policy Gill Covered Member ID Gill Member ID Guarantor Name 03/12/2024 1 [employer] (MEDICARE SUPPLEMENT) Adali I Houde [id number] Adali I Houde 03/12/2024 1 [place] [facility] Adali I Houde [id number] Adali I Houde 03/12/2024 1 [employer] Adali I Houde [id number] Adali I Houde 05/26/2024 1 [facility] - MEDICARE PREFERRED (MEDICARE REPLACEMENT HMO) [id number] Adali I Houde [id number] Adali I Houde 05/26/[address] [place] [address] (MEDICARE REPLACEMENT/A DVANTAGE - PPO) [id number] Adali Holman [id number] Adali Holman Notes Date Note Type Note [...] her sinus congestion symptoms HARPREET HALEY MD [address] [place] [address], [phone], [facility] - [facility] 03/12/2024 16:35:50 OBGyn Episode No OBEpisode recorded.
== END 2024-12-27 11:27 | disposition home or self-care (01) ==
LOC: HO.PMC 10:39
PROVIDERS: PCP Nurse Practitioner Family; Visit Provider Internal Medicine
DX: G90.519 Complex regional pain syndrome I of unspecified upper limb (principal); G56.21 Lesion of ulnar nerve, right upper limb; M54.12 Radiculopathy, cervical region
CPT/HCPCS: 99214

== ENCOUNTER → 2024-12-27 10:38 | Outpatient (BNVA) | payer MEDICARE, OTHER, SELFPAY | PROVIDERS: PCP Nurse Practitioner Family; Visit Provider Internal Medicine | DX: M54.12 Radiculopathy, cervical region (principal); M81.0 Age-related osteoporosis without current pathological fracture | CPT/HCPCS: 99212 ==

== ENCOUNTER 2025-01-03 06:32 | Outpatient (REF) | payer MEDICARE, OTHER, SELFPAY ==
--- OUTSIDE RECORDS SUMMARY | 2025-01-03 06:47 | XMS_ITS | Patient Health Record ---
Author Organization [facility] Address [address] [place] [address] Care Team Providers Care Sales And Marketing Engineer Name Role Phone Augustine Carrera M.D. Primary Care Provider Ruth Manas Blas Unavailable [phone] Allergies Allergen (clinical drug ingredient) Drug/Non Drug Allergy documented on EMR Reaction Allergy Type Onset Date Status Substance with beta adrenergic receptor antagonist mechanism of action (substance) BETA blockers (uncoded) Unknown Allergy Active Latex latex (uncoded) Unknown Allergy Acti ve low tolerance and sensitivity to pain meds (uncoded) Unknown Allergy Active Substance with penicillin structure and antibacterial mechanism of action (substance) PCN based antibiotics (uncoded) Unknown Allergy Active seasonal (uncoded) Unknown Allergy A ctive some food allergies (uncoded) Unknown Allergy Active rofecoxib Vioxx (uncoded) Unknown Allergy Acti ve risedronate Actonel Unknown Drug Allergy Activ e fluticasone / salmeterol Advair Diskus Unknown Drug Allergy Active Aleve Unknown Drug Allergy Active amitriptyline Amitriptyline HCl Unknown Drug Allergy Active amlodipine Amlodipine Besylate Unknown Drug Allergy Active baclofen Baclofen Unknown Drug Allergy Active ibandronate Boniva Unknown Drug Allergy Activ e rosuvastatin Crestor Unknown Drug Allergy Acti ve raloxifene Evista Unknown Drug Allergy Active lisinopril Lisinopril Unknown Drug Allergy Activ e pregabalin Lyrica Unknown Drug Allergy Active Metoprolol Succinate Unknown Drug Allergy Active meloxicam Mobic Unknown Drug Allergy Active naproxen Naproxen Unknown Drug Allergy Active metoclopramide Reglan Unknown Drug Allergy Ac tive simvastatin Simvastatin Unknown Drug Allergy Act hai tiotropium Spiriva HandiHaler Unknown Drug Allergy Active spironolactone Spironolactone Unknown Drug Allergy Active budesonide / formoterol Symbicort Unknown Drug Allergy Active tramadol Tramadol HCl Unknown Drug Allergy Acti ve verapamil Verapamil HCl Unknown Drug Allergy Act hai sertraline Zoloft Unknown Drug Allergy Active formoterol / mometasone Dulera Unknown Drug Allergy Active Penicillin Unknown Drug Allergy Active Reason For Referral No Information Medications Medication SIG (Take, Route, Frequency, Duration) Notes Start Date End Date Status Protonix 40mg 1 QD Acti ve LORazepam .05mg Acti ve Ibuprofen 600mg Acti ve Vicodin 5/325mg Acti ve MiraLax prn Active Aspir-81 81mg Active Clobetasol Prop Emollient Base 0.05% Active Calcipotriene 0.50% Active Singulair 10mg Activ e Furosemide 10mg Acti ve Qvar 40mcg Active [place]/FS Body 0.01% Active Vitamin D 2400 Activ e Losartan Potassium 25mg Active ZyrTEC 10mg Active Ventolin HFA Active Multi Vitamin/Minerals Active Artificial Tears Act hai Social History Social History Additional Details Category Social Info Options Details Miscellaneous: Marital status: 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81) Active confirmed Problem Epigastric pain (62543724) Abdominal discomfort, epigastric (789.06) Active confirmed Problem Gas (50970947) Gas (787.3) Active confirmed Plan Of Treatment Future Test Test Name Order Date UPPER GI ENDOSCOPY 08/15/2011 Insurance Providers Payer Name Payer Address Payer Phone Subscriber Number Group Number Insured Name Patient Relationship to Insured Coverage Start Date Coverage End Date MEDICARE OF [place] [address] [place] [address] [id number] JORGITO ALCANTARA Self - patient is the insured MED[employer] OF [employer] [address] [place] [phone] [id number] JORGITO ALCANTARA Self - patient is the insured Medical (General) History Medical History History ICD Code screening colonoscopy 07-23-2006--neg. fo r polyps EGD 06-11-1999 and 02/17 negative for signi ficant esophagitis nor ulcer disease GERD hx of duodenal ulcer in the 1969's Denies RI,DM,CVA,renal disease irregular heart beat elevated chloresterol hypertension osteoporosis Hiatal hernia Denies RI,DM,CVA,renal disease Mild asthma Anxiety Negative cardiac catheterization in 11/[address] Yadav Surgical History Surgery Date(Month/Year) hysterectomy for cervical cancer 1978 eyelid surgery 02/28/2010 eye surgery- crossed eye 1956 shoulder surgery 1957 C-spine surgery for a pinched nerve 20 10 Lumpectomy-right breast-benign 1993 lumpectomy-left breast-benign 2000 arthroscopic right knee 2005 ulnar nerve surgery biopsy lump on neck-benign 2007 Left eye cateract 02/19/11 right eye cateract 03/26/2011 cholecystectomy for stones-Dr. Adan lipoma from LUQ abdominal wall 10/15/2012 spinal/neck fusion C5-C7-Dr. Machado 11/10 08/22
--- OUTSIDE RECORDS SUMMARY | 2025-01-03 06:47 | XMS_ITS | Clinical Summary ---
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 Gait is steady. Review [...] hand and has an appointment to see [facility] on July 14. She is welcome [...] using it. C-spine MRI done yesterday at [facility] does not show any significant central [...] intact. X-rays of the cervical spine from [facility] dated 2024 show good position of her C4-5 and C5-C6-C7 plates but there does not appear to be robust bone growth across the disc spaces. I will discuss with Dr. Rodriguez and likely order a bone growth stimulator. Meantime, she is going to get in contact with [facility]. We talked about acupuncture and [...] Encounters Date Type Department Care Team Description 12/23/2024 Telephone Neurosurgery [address] [address] Gabby Rodriguez MD 12/17/2024 11:45 AM EST Office Visit [address] [address] Gabby Rodriguez MD Cervical spondylosis (Primary Dx) [...] XRAY REPORT Routine 12/06/2024 12:46 PM EDT [facility] DEXA AXIAL SKELETON Routine 02/02/2018 9:04 [...] CODY XR PROCEDURES Final R esult * [facility] DEXA AXIAL SKELETON (02/02/2018 9:04 AM EST) Anatomical Region Laterality Modality Mammography 02/02/2018 7:11 AM EST Narrative 02/02/2018 9:04 AM EST [facility] Diagnostic Imaging Department [address] [place] [address] Patient: ADALI HOLMAN Hari /Age/Sex: 1950 - 67 - F Unit#: [id number] Location/Status: [facility] CLI Mnemonic[facility] Ordering Physician[facility] KATERINA TOLBERT MD [facility] Dexa Axial Skeleton - 02/02/18 9949 HISTORY: The patient is a 67-year-old postmenopausal [...] probability of hip fracture of 11.3%. Code 76541 Dictating Physician: GALINA KUO MD Electronically Signed by: GALINA KUO MD Dic Date/Time: 02/02/18901 Sign date/Time: 02/02/18903 Procedure Note Galina Kuo MD - 01/29/2022 [facility] Diagnostic Imaging Department [address] [place], [place] [id number] Patient: ADALI HOLMAN I /Age/Sex: 1950 67 - F Unit#: [id number] Location/Status: [facility] CLI Mnemonic[facility] Ordering Physician: KATERINA TOLBERT MD [facility] Dexa [...] density of the femurs bilaterally is 0.707 gm/vu8fcvdc is 70% of that of young normals [...] probability of hip fracture of 11.3%. Code 08593 Dictating Physician: GALINA KUO MD Electronically Signed by: GALINA KUO MD Dic Date/Time: 02/02/18901 Sign date/Time: 02/02/18903 us Katerina Tolbert MD IMG BI PROCEDURES Final Re sult * [facility] SCREENING DIGITAL (02/02/2018 8:35 AM EST) Anatomical Region Laterality Modality Mammography 02/02/2018 7:10 AM EST Narrative 02/02/2018 8:35 AM EST [facility] Diagnostic Imaging Department [address] [place] [address] Patient: ADALI HOLMAN I /Age/Sex: 1950 - 67 - F Unit#: [id number] Location/Status: [facility] Mnemonic/Ordering Site: [facility] Ordering Physician: JEANETTE CARRERA MD [facility] Screening Digital - 02/02/18 - 0749 INDICATION: SCREENING COMPARISON: [facility] mammograms dating back to 01/12/2013 FINDINGS: CC and MLO views of the breasts were obtained, using full field digital mammography with 3D tomosynthesis views in the MLO projection. Computer aided detection with the [employer] 7.2-H was employed. Benign bilateral breast biopsies [...] target date for the next mammogram. G0202 72080) , [id number] Dictating Physician: TONI SHRESTHA MD Electronically Signed by: TONI SHRESTHA MD Dic Date/Time: 02/02/18829 Sign date/Time: 02/02/18834 Procedure Note Toni Shrestha MD - 01/29/2022 [facility] Diagnostic Imaging Department [address] [place], [place] [id number] Patient: ADALI HOLMAN I /Age/Sex: 1950 - 67 - F Unit#: [id number] Location/Status: [facility]/REG CLI Mnemonic/Ordering Site: [facility] Ordering Physician: JEANETTE CARRERA MD [facility] Screening Digital - 02/02/18 - 0749 INDICATION: SCREENING COMPARISON: [facility] mammograms dating back to 01/12/2013 FINDINGS: CC and MLO views of the breasts were obtained, using full field digital mammography with 3D tomosynthesis views in the MLO projection. Computeraided detection with the [employer] 7.2-H was employed. Benign bilateral breast biopsies [...] a target date for the next mammogram. G0431 / 63568) , 43483 Dictating Physician: TONI SHRESTHA MD Electronically Signed by: TONI SHRESTHA MD Dic Date/Time: 02/02/18 0830 Sign date/Time: 02/02/18 0835 Jeanette Carrera MD IMG BI PROCEDURES Final Resu lt from Last 3 Months or Most Recently Relevant to Health Maintenance Insurance [employer] [place] MED[employer] ADV[employer]AGE Advance Directives Documents on File Type Date Recorded Patient Social Media Content Manager Expl anation Health Care Decision (hx) [...] (hx) 07/18/2009 AD HERNANDEZ DIRECTIVE Care Teams Supervisor Bleach Plant Relationship Specialty Start Date End Date Sachin Linares NP [address], [place] PCP - General 05/31/22
--- OUTSIDE RECORDS SUMMARY | 2025-01-03 06:47 | XMS_ITS | Data Portability ---
Author Organization [place] - [facility], Allergy Address [address] [address] Care Team Providers Care [employer] Travel Counselor Name Role Phone BEBE VELASCO Primary Care [...] Address Organization Details Recorded Time Bilateral tinnitus 40777457590 02 Active 2018 Tinnitus, bilateral ; Note: Date Diagnosed : 09/16/2018 9:36 AM (H93.13) Not Available [facility] 4 03:05:03 Sensorine ural hearing loss of bilateral ears 437430819 Active 2018 Sensorine ural hearing loss, bilateral ; Note: Date Diagnosed : 09/16/2018 9:36 AM (H90.3) Not Available [facility] 4 03:05:03 Migraine with aura 4026643 Active 2018 Migraine with aura, not intractab le, without status migrainos us; Note: Date Diagnosed : 09/16/2018 9:50 AM (G43.109) Not Available [facility] 4 03:05:05 Dizziness and giddiness 033218419 Active 2018 Dizziness and giddiness ; Note: Date Diagnosed : 09/16/2018 9:36 AM (R42) Not Available [facility] 4 03:05:03 Gastroeso phageal reflux disease without esophagit is 134575489 Active 2018 Gastro-es ophageal reflux disease without esophagit is; Note: Date Diagnosed : 09/16/2018 9:57 AM (K21.9) Not Available [facility] 4 03:05:03 Headache 42867603 Active 2018 Facial pain NOS; Note: Date Diagnosed : 09/16/2018 9:50 AM (R51) Not Available [facility] 4 03:05:02 Recurrent acute sinusitis 560334516 Active 2024 HARPREET HALEY MD [address] [place] [address], [place], [address] , [place] - [facility] 5 16:29:55 Allergic rhinitis 08704856 Active 2024 HARPREET HALEY MD [address] [place] [address],[place] [address], [place], [address] , [place] - [facility] 5 16:30:02 Problem Notes None recorded. Procedures Surgical History Date Name Laterality Status Provider Name and Address Organization Details Recorded Time 03/12/2024 Comp Audio with Tymps - 53691 & 25990 completed ADALI ASKEW [place], CCC-A [address] [place] [address], [phone], [facility] 03/12/2024 16:00:59 03/12/2024 NasalEndosc opy_DP completed HARPREET HALEY MD [address] [place] [address], [address], [facility] 03/12/2024 16:29:37 Imaging Results None recorded. Procedure Notes None recorded. Medical Equipment None Reported. Allergies Allergen ID Allergen Name Allergen Category Reaction Reaction Severity Criticality Documentation Date Start Date Code Code System Note Provider Name and Address Organization Details Recorded Time 683024 tacrolimu s medicatio n Not available Not available Not available 03/12/2024 25110 RxNorm Zoraida Potvin null, [place] - [facility] 15:11:51 919060 Nexletol medicatio n Not available Not available Not available 03/12/2024 63927 09 RxNorm Zoraida Potvin null, [place] - [facility] 15:12:16 876605 Miebo medicatio n Not available Not available Not available 03/12/2024 63087 52 RxNorm Zoraida Potvin null, [place] - [facility] 15:12:27 656661 sulindac medicatio n Not available Not available Not available 03/12/2024 55383 RxNorm Zoraida Potvin null, [place] - [facility] 15:12:36 783446 Fosamax medicatio n Not available Not available Not available 03/12/2024 77470 5 RxNorm Zoraida Potvin null, [place] - [facility] 15:12:46 849970 latex environme nt,medica tion Not available Not available Not available 03/12/2024 08738 91 RxNorm Zoraida Potvin null, [place] - [facility] 15:13:27 366609 Dexilant medicatio n Not available Not available Not available 03/12/2024 12730 1 RxNorm Zoraida Marsh [facility] abdul - [facility] 5 15:13:54 479318 doxycycli ne Not available Not available Not available Not available 03/12/2024 3640 RxNorm Zoraida Marsh franko [place] - [facility] 5 15:14:23 Medications Name Sig Start [...] Smoking Status Former Smoker HARPREET HALEY MD [address] [place] [address], [place], [address], [facility] - [facility] 03/12/2024 09:06:30 How Much Tobacco Do [...] N Immune System Disorder N Heart Attack ([place]) N Other Skin Condition N Diabetes N [...] ICD10 Code Diagnosis IMO Codes Diagnosis Note [id number] HARPREET HALEY MD [facility] [address] [address] 03/12/2024 14:19:20 03/12/2024 16:35:50 Sensorineural hearing loss of bilateral ears [id number] H90.3 Audiologic al evaluation results: Right ear: Normal/ borderline normal hearing thru 1500Hz, sloping to a mild to severe SNHL with excellent word recognitio n. Left ear: Normal hearing thru 3000Hz dropping to a mild to severe SNHL with excellent word recognitio n. Tympanomet ry: Right Ear:Type A Left Ear:Type A Recurrent acute sinusitis 544867397 J01.91 Allergic rhinitis 494882 04 J30.9 Health Concerns Section Related Observation LastModified by Organization Detai ls LastModified Time None Recorded Concern Status LastModified by Organization Details LastModified Time None Recorded Advance Directives Directive None Recorded Payers Insurance Date Sequence Insurance Name Policy Number Policy Gill Covered Member ID Gill Member ID Guarantor Name 03/12/2024 1 [employer] (MEDICARE SUPPLEMENT) Adali I Houde [id number] Adali I Houde 03/12/2024 1 [place] [facility] Adali I Houde [id number] Adali I Houde 03/12/2024 1 [employer] Adali I Houde [id number] Adali I Houde 05/26/2024 1 [facility] - MEDICARE PREFERRED (MEDICARE REPLACEMENT HMO) [id number] Adali I Houde [id number] Adali I Houde 05/26/[address] [place] [address] (MEDICARE REPLACEMENT/A DVANTAGE - PPO) [id number] Adali Holman [id number] Adali Holman Notes Date Note Type Note [...] her sinus congestion symptoms HARPREET HALEY MD [address] [place] [address], [phone], [facility] - [facility] 03/12/2024 16:35:50 OBGyn Episode No OBEpisode recorded.
--- OUTSIDE RECORDS SUMMARY | 2025-01-03 06:47 | XMS_ITS | Patient Health Record ---
Author Organization [facility] Address [address] [place] [address] Care Team Providers Care Buckle Stapler Name Role Phone BEBE VELASCO M.D Primary Care Provider LIZANDRO Bean Unavailable [phone] Allergies Allergen (clinical drug ingredient) Drug/Non Drug Allergy documented on EMR Reaction Allergy Type Onset Date Status 12 Hour Nasal Pinson Unknown Drug Allergy Active risedronate Actonel Unknown [...] Status Risk Notes Problem Postmenopausal atrophic vaginitis (03721944) Postmenopausal atrophic vaginitis (N95.2) Active confirmed Problem Age-related osteoporosis (093905259) Age-related osteoporosis without current pathological fracture (M81.0) Active confirmed Problem Essential hypertension (05121485) Essential (primary) hypertension (I10) Active confirmed Problem Hyperlipidemia (71906513) Hyperlipidemia, unspecified (E78.5) Active confirmed Problem Uncomplicated asthma (disorder) (000028827) Unspecified asthma, uncomplicated (J45.909) Active confirmed Problem Gastro-esophageal reflux disease without esophagitis (865227535) Gastro-esophageal reflux disease without esophagitis (K21.9) Active confirmed Plan Of Treatment No Information Insurance Providers Payer Name Payer Address Payer Phone Subscriber Number Group Number Insured Name Patient Relationship to Insured Coverage Start Date Coverage End Date MEDICARE [address] [facility] [place] [id number] LAURENT JORGITO Self - patient is the [...]
[2025-01-03 11:02] LABS: Albumin Level 4.0 g/dL (3.5-5.0); Anion Gap 10 (12-20); Blood Urea Nitrogen 16 mg/dL (9-16); Calcium 9.0 mg/dL (8.4-10.2); Carbon Dioxide 28 mmol/L (22-29); Chloride 107 mmol/L (96-108); Estimated Glomerular Filt Rate 49; Potassium 4.0 mmol/L (3.3-5.1); Sodium 141 mmol/L (135-145)
[2025-01-03 11:09] LABS: Total Volume 24 Hour Urine 800 mL
[2025-01-03 13:56] LABS: Creatinine, mg/dL 72.11
[2025-01-07 16:59] LABS: Calcium/Creatinine Ratio 61 mg/g creat (30-275); Creatinine 24Hr Urine 0.57 g/24 h (0.50-2.15)
== END 2025-01-03 06:33 | disposition home or self-care (01) ==
LOC: HO.HMGCLDS 06:32
PROVIDERS: PCP Nurse Practitioner Family; Visit Provider Internal Medicine Endocrinology, Diabetes & Metabolism
DX: M81.8 Other osteoporosis without current pathological fracture (principal)
CPT/HCPCS: 36415; 80048; 82040; 82340; 82570

== ENCOUNTER 2025-01-05 11:06 | Outpatient (AMB) | payer MEDICARE, SELFPAY ==
--- NOTE | 2025-01-05 11:22 | MHC.OFFVIS ---
Vital Signs 01/05/25 11:23 Height 4 ft 11 in Weight 157 lb BMI 31.7 Intake Visit Reasons: OV-Discuss RT ulnar release Intake Note: Adali 74 yr old 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 female who works at [employer] , presents today to discuss right hand cubital release surgery. She was last seen with Dr Cagle who ordered a new NCS to assess her RUE for peripheral nerve compression. She has a healed surgical scar medial elbow, from a epicondylitis debridement done by Dr. Fry, for suspected medial epicondylitis in ~2014. Patient was advise we need this OP report prior to considering surgery however only op note from 2021 was sent for her flexor tenosynovitis of right middle and ring finger. Patient states she is looking forward to being booked for a cubital release. Allergies dexlansoprazole (From DEXILANT) Allergy (Severe, Verified 01/12/25 11:19) dizziness, change in HR risedronate sodium (From ACTONEL) Allergy (Severe, Verified 01/12/25 11:19) chest discomfort Vxoexyh-QPT-PlQ Reductase Inhibitor (KVKXUMG-ARU-SFX REDUCTASE INHIBITOR) Allergy (Severe, Verified 01/12/25 11:19) JOINT PAIN tramadol (TRAMADOL) Allergy (Severe, Verified 01/12/25 11:19) THROAT TIGHTNESS amlodipine (AMLODIPINE) Allergy (Intermediate, Verified 01/12/25 11:19) PALIPITATIONS Atrovent Allergy (Intermediate, Verified 01/12/25 11:19) Cough baclofen (BACLOFEN) Allergy (Intermediate, Verified 01/12/25 11:19) LETHARGY Beta-Blockers (Beta-Adrenergic Bloc Allergy (Intermediate, Verified 01/12/25 11:19) BRADYCARDIA budesonide (From SYMBICORT) Allergy (Intermediate, Verified 01/12/25 11:19) HOARSENESS Chocolate Allergy (Intermediate, Verified 01/12/25 11:19) GERD ezetimibe (From ZETIA) Allergy (Intermediate, Verified 01/12/25 11:19) JOINT PAIN, ELEVATED CPK fluticasone (From ADVAIR DISKUS) Allergy (Intermediate, Verified 01/12/25 11:19) HTN glucosamine Allergy (Intermediate, Verified 01/12/25 11:19) LE edema ibandronate sodium (From BONIVA) Allergy (Intermediate, Verified 01/12/25 11:19) CHEST PAIN latex (LATEX) Allergy (Intermediate, Verified 01/12/25 11:19) RASH-SENSITIVITY lisinopril (LISINOPRIL) Allergy (Intermediate, Verified 01/12/25 11:19) COUGH, really bad cough meloxicam (From MOBIC) Allergy (Intermediate, Verified 01/12/25 11:19) GI UPSET mometasone furoate (From DULERA) Allergy (Intermediate, Verified 01/12/25 11:19) COUGH niacin Allergy (Intermediate, Verified 01/12/25 11:19) Flushing Penicillins (PENICILLINS) Allergy (Intermediate, Verified 01/12/25 11:19) RASH pregabalin (From LYRICA) Allergy (Intermediate, Verified 01/12/25 11:19) GERD flare up raloxifene (From EVISTA) Allergy (Intermediate, Verified 01/12/25 11:19) GERD rofecoxib (From Vioxx) Allergy (Intermediate, Verified 01/12/25 11:19) ankle swelling salmeterol (From ADVAIR DISKUS) Allergy (Intermediate, Verified 01/12/25 11:19) HTN scallops (SCALLOPS) Allergy (Intermediate, Verified 01/12/25 11:19) NAUSEA & VOMITING sertraline (From ZOLOFT) Allergy (Intermediate, Verified 01/12/25 11:19) SKIN CRAWLING spironolactone (SPIRONOLACTONE) Allergy (Intermediate, Verified 01/12/25 11:19) RASH, ?? psoriasis strawberry (STRAWBERRY) Allergy (Intermediate, Verified 01/12/25 11:19) ITCHING tiotropium (From SPIRIVA WITH HANDIHALER) Allergy (Intermediate, Verified 01/12/25 11:19) RAW THROAT, pharyngitis verapamil (VERAPAMIL) Allergy (Intermediate, Verified 01/12/25 11:19) IRREGULAR HEARTBEAT esomeprazole (Nexium) Allergy (Mild, Verified 01/12/25 11:19) did not resolve GERD naproxen (From ALEVE) Allergy (Mild, Verified 01/12/25 11:19) FLUSH omeprazole Allergy (Mild, Verified 01/12/25 11:19) did not resolve GERD tacrolimus Allergy (Mild, Verified 01/12/25 11:19) Rash adhesive (ADHESIVE) Allergy (Unknown, Verified 01/12/25 11:19) RASH doxycycline (DOXYCYCLINE) Allergy (Unknown, Verified 01/12/25 11:19) SEVERE NOYOLA, HEARTBURN, joint pain gabapentin (From NEURONTIN) Allergy (Unknown, Verified 01/12/25 11:19) leg swelling, SOB metoclopramide (From REGLAN) Allergy (Unknown, Verified 01/12/25 11:19) LETHARGY monosodium glutamate (MSG) Allergy (Unknown, Verified 01/12/25 11:19) HEADACHE, increased HR lifitegrast (From Xiidra) Allergy (Verified 01/12/25 11:19) blurred vision, headache, eye swelling metoprolol Adverse Reaction (Severe, Verified 01/12/25 11:19) Severe bradycardia alendronate sodium (From Fosamax) Adverse Reaction (Intermediate, Verified 01/12/25 11:19) Joint Pain amitriptyline Adverse Reaction (Intermediate, Verified 01/12/25 11:19) Agitated cyclosporine (From Cequa) Adverse Reaction (Intermediate, Verified 01/12/25 11:19) Eye Swelling fluticasone furoate (From Trelegy Ellipta) Adverse Reaction (Intermediate, Verified 01/12/25 11:19) asthma exacerbation perfluorohexyloctane (From Miebo) Adverse Reaction (Intermediate, Verified 01/12/25 11:19) Eye Swelling tobramycin (From Tobrex) Adverse Reaction (Intermediate, Verified 01/12/25 11:19) Eye Swelling umeclidinium (From Trelegy Ellipta) Adverse Reaction (Intermediate, Verified 01/12/25 11:19) asthma exacerbation vilanterol (From Trelegy Ellipta) Adverse Reaction (Intermediate, Verified 01/12/25 11:19) asthma exacerbation azelastine Adverse Reaction (Mild, Verified 01/12/25 11:19) Gastrointestinal Upset hi Adverse Reaction (Intermediate, Uncoded 01/05/25 11:44) Itchy Eyes Sulindac Adverse Reaction (Intermediate, Uncoded 01/05/25 11:44) Nausea, pain HPI HPI OV-Discuss RT ulnar release: Details: Adali is a 74 year old 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 woman who returns to discuss her right hand numbness. She is S/P right carpal tunnel release, DOS: 12/29/23 with good results. She says she still gets numbness and tingling in the right small and ring fingers that is intermittent but daily, but she feels this is worsening. She complains of pain in her right forearm extending from her elbow into her hand. She describes this as burning at times. Most of her pain is on the volar ulnar aspect of her wrist and into her hand. She complains of pain radiating from her neck and down into her Scapula, shoulder, and down her arm. She says she had some sort of debridement done on the medial aspect of her right elbow by Dr. Fry in ~2014. She says they were not able to find this OP note, just one from a procedure done on her right middle & ring fingers in 2021. *See my note from 08/24/24 for more information regarding her comorbidities* She has been receiving injections by Dr. Oquendo for pain management, which has not been helpful. [facility] Medical History Esophageal spasm Hx of carcinoma of bladder Bladder carcinoma History of trigger finger Cervical radiculitis Chronic sinusitis GERD (gastroesophageal reflux disease) FRANCESCA (obstructive sleep apnea) CAD (coronary artery disease) History of primary hyperparathyroidism Non-toxic multinodular goiter Osteoporosis Pulmonary nodules H/O gastroesophageal reflux (GERD) HLD (hyperlipidemia) HTN (hypertension) COPD (chronic obstructive pulmonary disease) Asthma History of aneurysm Migraine Depression PTSD (post-traumatic stress disorder) History of panic attacks Anxiety Edema History of deviated nasal septum Medial epicondylitis of left elbow Fusion of spine, cervical region Surgical History History of carpal tunnel release Hx of cystoscopy H/O cervical spine surgery Hx of hand surgery Hx of right inguinal hernia repair History of hernia repair Hx of colonoscopy History of esophagogastroduodenoscopy (EGD) S/P repair of paraesophageal hernia H/O decompression of ulnar nerve Status post ablation of incompetent vein using laser History of cardiac catheterization History of eyelid surgery History of appendectomy History of parathyroidectomy History of cholecystectomy Hx of cataract surgery Hx of shoulder surgery S/P cubital tunnel release S/P arthroscopic surgery of right knee History of lumpectomy of both breasts History of hysterectomy Hx of adenoidectomy Hx of tonsillectomy Hx of eye surgery Family History Father Liver cancer Psoriasis Cancer Mental health disorder Mother Cervical cancer Ovarian cancer Heart attack Substance use disorder Social History Household Members: Children and None Housing: House Alcohol intake: current Alcohol intake frequency: does not drink Patient Tobacco Use Status: Former Tobacco user Tobacco use type: Cigarette e-Cigarette/Vaping Use: Never Used Second Hand Smoke Exposure: No service: No Current occupational status: employed 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 Dense numbness in the ulnar nerve distribution today in clinic. Normal sensation in the ulnar & dorsal ulnar aspect of her hand & wrist. She had a Wartenberg sign, but now can actively bring the small finger into adduction against the ring finger No thenar or intrinsic wasting Good APB muscle belly firing and good finger cross Vascular: Cap refill brisk ROM: She can make a nice fist and extend all her digits No subluxation of extensor tendons with ROM She has a healed surgical scar medial elbow, from a debridement done by Dr. Fry, for suspected medial epicondylitis in ~2014. Right Hand MRI: Findings: No bone marrow edema. Severe joint space narrowing and osteophytosis of the 1st carpometacarpal joint, Degenerative. No subluxation or dislocation. The musculature is normal in signal and bulk. Normal vessels. No joint effusion. No ligamentous injury Extensor tendons are intact and normal in signal without tenosynovitis. Status post release of the flexor retinaculum without evidence of regrowth or scarring. No increase in size or signal of the median or ulnar nerves. No definitive thickening of the flexor tendon sheaths or tendons. No tenosynovitis. Impression: No increase in size or signal of the ulnar nerve. This document has been electronically signed by: Jocelyn Jara MD on 06/17/2024 Nerve Conduction Study: Right-side only IMPRESSION: 1. This is an abnormal study. 2. There is electrodiagnostic evidence for right ulnar neuropathy at the wrist 3. There is still mild prolongation of right median sensory latency, but overall improved compared to previous EMG and after surgery. 4. There is no electrodiagnostic evidence for brachial plexopathy or cervical radiculopathy. Fina Mcdonnell MD, EBONY 07/21/24 Old: IMPRESSION: 1. Fzkd-jp-ikyiyasu right ulnar neuropathy in wrist. 2. Mild right median neuropathy across carpal tunnel. Beka Frost MD 07/29/2023 Psych Appearance: grossly normal Affect: normal affect Attitude: cooperative Assessment & Plan Assessment & Plan (1) Neuropathy of right ulnar nerve at wrist: Code(s): G56.21 - Lesion of ulnar nerve, right upper limb Category: Medical (2) CAD (coronary artery disease): Code(s): I25.10 - Atherosclerotic heart disease of [place] coronary artery without angina pectoris Category: Medical (3) CRPS (complex regional pain syndrome), type I, upper: Code(s): G90.519 - Complex regional pain syndrome I of unspecified upper limb Category: Medical (4) Failed back syndrome of cervical spine: Code(s): M96.1 - Postlaminectomy syndrome, not elsewhere classified Category: Medical Plan Assessment & Plan: 1. Right ulnar nerve compression, at the wrist -per NCS from 07/21/24 & 07/29/23 -No cyst or aneurysm seen on MRI from 06/17/24 Last visit she had developed symptoms of numbness and tingling progressing from the medial aspect of the elbow down the forearm with symptoms on both the dorsal and palmar ulnar aspect of the hand. The symptoms from her medial elbow and forearm appear to have resolved. Intermittent, but daily and worsening, numbness in the ring & small fingers 2. Right dorsal ulnar-sided hand pain Most likely ECU tendinitis I educated her about this condition I discussed treatment options I recommend surgery for the ulnar-sided hand numbness, and she is in agreement I recommend she continue with at-home exercises and activity modification I explained that this surgery is not likely to improve her symptoms of pain in the dorsal ulnar aspect of her hand, and she expressed understanding FYI: She has a healed surgical scar medial elbow, from a debridement done by Dr. Fry, for suspected medial epicondylitis in ~2014. The risks and benefits of operative treatment were discussed with the patient and the patient wishes to proceed with surgery. These risks include, but are not limited to risk of damage to blood vessels, nerves, tendons, infection, recurrence, incomplete relief of preoperative symptoms, persistent pain, possible need for further surgery and the risks associated with regional blocks and anesthesia. The plan is to take the patient to the operating room sometime in the next few weeks for the following procedures: 1. Right ulnar nerve decompression at the wrist, under general All of the preoperative paperwork including the consent was reviewed today. All the patient's questions were answered. The patient understands that they will be contacted by our medical/surgery registered nurse soon to schedule this procedure. She would like this sometime in February, and say she is switching insurance providers by the beginning of next year. She denies Diabetes, blood thinners, lung, kidney issues She has asthma, CAD, and a tiny aneurysm which she manages with Aspirin. She says these are all well-managed and she saw her Pasta Press Operator for a complete work-up in 07/2024, and says she is doing very well 3. Right carpal tunnel syndrome, S/P release DOS: 12/29/23 Pre-operative symptoms intermittent, but daily, worse at night Now with normal sensation, and significant improvement of overall hand pain Scribed for Marisol Cagle MD by Keyon Manzo, lead medical technologist, on 01/05/25 at 11:40 AM, EST. Orders: Referrals Neuro Spine Referral M96.1 - Postlaminectomy syndrome, not elsewhere classified Coding Level of Care Code Est Pt Level 4 (10003) Diagnoses Neuropathy of right ulnar nerve at wrist G56.21 CAD (coronary artery disease) I25.10 CRPS (complex regional pain syndrome), type I, upper G90.519 Failed back syndrome of cervical spine M96.1
[2025-01-05 11:23] VITALS: BMI 31.7
--- OUTSIDE RECORDS SUMMARY | 2025-01-05 13:51 | XMS_ITS | Data Portability ---
Author Organization [place] - [facility], Allergy Address [address] [address] Care Team Providers Care Double End Tenoner Setter Name Role Phone BEBE VLEASCO Primary Care Provider Assessment Encounter Date Assessment [...] Address Organization Details Recorded Time Bilateral tinnitus 29438488834 02 Active 2018 Tinnitus, bilateral ; Note: Date Diagnosed : 09/16/2018 9:36 AM (H93.13) Not Available [facility] 4 03:05:03 Sensorine ural hearing loss of bilateral ears 298040478 Active 2018 Sensorine ural hearing loss, bilateral ; Note: Date Diagnosed : 09/16/2018 9:36 AM (H90.3) Not Available [facility] 4 03:05:03 Migraine with aura 4353688 Active 2018 Migraine with aura, not intractab le, without status migrainos us; Note: Date Diagnosed : 09/16/2018 9:50 AM (G43.109) Not Available [facility] 4 03:05:05 Dizziness and giddiness 313738314 Active 2018 Dizziness and giddiness ; Note: Date Diagnosed : 09/16/2018 9:36 AM (R42) Not Available [facility] 4 03:05:03 Gastroeso phageal reflux disease without esophagit is 311635509 Active 2018 Gastro-es ophageal reflux disease without esophagit is; Note: Date Diagnosed : 09/16/2018 9:57 AM (K21.9) Not Available [facility] 4 03:05:03 Headache 92994494 Active 2018 Facial pain NOS; Note: Date Diagnosed : 09/16/2018 9:50 AM (R51) Not Available [facility] 4 03:05:02 Recurrent acute sinusitis 895700330 Active 2024 HARPREET HALEY MD [address] [place] [address], [place], [address] , [place] - [facility] 5 16:29:55 Allergic rhinitis 07274763 Active 2024 HARPREET HALEY MD [address] [place] [address],[place] [address], [place], [phone] , [place] - [facility] 5 16:30:02 Problem Notes None recorded. Procedures Surgical History Date Name Laterality Status Provider Name and Address Organization Details Recorded Time 03/12/2024 Comp Audio with Tymps - 83715 & 36259 completed ADALI ASKEW MA, CCC-A [address] [place] [address], [phone], [facility] 03/12/2024 16:00:59 03/12/2024 NasalEndosc opy_DP completed HARPREET HALEY MD [address] [place] [address], [phone], [facility] 03/12/2024 16:29:37 Imaging Results None recorded. Procedure Notes None recorded. Medical Equipment None Reported. Allergies Allergen ID Allergen Name Allergen Category Reaction Reaction Severity Criticality Documentation Date Start Date Code Code System Note Provider Name and Address Organization Details Recorded Time 990052 tacrolimu s medicatio n Not available Not available Not available 03/12/2024 48884 RxNorm Zoraida Potvin null, [place] - [facility] 15:11:51 512218 Nexletol medicatio n Not available Not available Not available 03/12/2024 12759 09 RxNorm Zoraida Potvin null, [place] [facility] 15:12:16 344948 Miebo medicatio n Not available Not available Not available 03/12/2024 38683 52 RxNorm Zoraida Potvin null, [place] [facility] 15:12:27 082820 sulindac medicatio n Not available Not available Not available 03/12/2024 24361 RxNorm Zoraida Potvin null, [place] - [facility] 15:12:36 177052 Fosamax medicatio n Not available Not available Not available 03/12/2024 97820 5 RxNorm Zoraida Potvin null, [place] - [facility] 15:12:46 505195 latex environme nt,medica tion Not available Not available Not available 03/12/2024 27434 91 RxNorm Zoraida Potvin null, [place] - [facility] 15:13:27 843353 Dexilant medicatio n Not available Not available Not available 03/12/2024 74077 1 RxNorm Zoraida Marsh [place] abdul - [facility] 5 15:13:54 376550 doxycycli ne Not available Not available Not available Not available 03/12/2024 3640 RxNorm Zoraida Marsh franko [place] - [facility] 5 15:14:23 Medications Name Sig Start [...] Smoking Status Former Smoker HARPREET HALEY MD [address] [place] [address],[place] [address], [place], [phone], [facility] - [facility] 03/12/2024 09:06:30 How Much Tobacco Do [...] ICD10 Code Diagnosis IMO Codes Diagnosis Note [id number] HARPREET HALEY MD [facility] [address] [address] 03/12/2024 14:19:20 03/12/2024 16:35:50 Sensorineural hearing loss of bilateral ears 148642659 H90.3 Audiologic al evaluation results: Right ear: Normal/ borderline normal hearing thru 1500Hz, sloping to a mild to severe SNHL with excellent word recognitio n. Left ear: Normal hearing thru 3000Hz dropping to a mild to severe SNHL with excellent word recognitio n. Tympanomet ry: Right Ear:Type A Left Ear:Type A Recurrent acute sinusitis 706746156 J01.91 Allergic rhinitis 995368 04 J30.9 Health Concerns Section Related Observation LastModified by Organization Detai ls LastModified Time None Recorded Concern Status LastModified by Organization Details LastModified Time None Recorded Advance Directives Directive None Recorded Payers Insurance Date Sequence Insurance Name Policy Number Policy Gill Covered Member ID Gill Member ID Guarantor Name 03/12/2024 1 [employer] (MEDICARE SUPPLEMENT) Adali I Houde [id number] Adali I Houde 03/12/2024 1 [place] [facility] Adali I Houde [id number] Adali I Houde 03/12/2024 1 [employer] Adali I Houde [id number] Adali I Houde 05/26/2024 1 [facility] - MEDICARE PREFERRED (MEDICARE REPLACEMENT HMO) [id number] Adali I Houde [id number] Adali I Houde 05/26/[address] [place] [address] (MEDICARE REPLACEMENT/A DVANTAGE - PPO) [id number] Adali Holman [id number] Adali Holman Notes Date Note Type Note [...] sinus congestion symptoms HARPREET HALEY MD [address] [place] [address], [phone], [facility] - [facility] 03/12/2024 16:35:50 OBGyn Episode No OBEpisode recorded.
--- OUTSIDE RECORDS SUMMARY | 2025-01-05 13:52 | XMS_ITS | Patient Health Record ---
Author Organization [facility] Address [address] [place] [address] Care Team Providers Care Stitch Bonding Machine Tender Helper Name Role Phone Augustine Carrera M.D. 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81) Active confirmed Problem Epigastric pain (16881912) Abdominal discomfort, epigastric (789.06) Active confirmed Problem Gas (61230351) Gas (787.3) Active confirmed Plan Of Treatment Future Test Test Name Order Date UPPER GI ENDOSCOPY 08/15/2011 Insurance Providers Payer Name Payer Address Payer Phone Subscriber Number Group Number Insured Name Patient Relationship to Insured Coverage Start Date Coverage End Date MEDICARE OF [place] [address] [place] [address] [id number] JORGITO ALCANTARA Self - patient is the insured MEDICAID OF [employer] ([employer]I)[facility] [address] [place] [phone] [id number] JORGITO ALCANTARA Self - patient is the insured Medical (General) History Medical History History ICD Code screening colonoscopy 07-23-2006--neg. fo r polyps EGD 06-11-1999 and 02/17 negative for signi ficant esophagitis nor ulcer disease GERD hx of duodenal ulcer in the 1969's Denies AK,DM,CVA,renal disease irregular heart beat elevated chloresterol hypertension osteoporosis Hiatal hernia Denies AK,DM,CVA,renal disease Mild asthma Anxiety Negative cardiac catheterization [...]
--- OUTSIDE RECORDS SUMMARY | 2025-01-05 13:52 | XMS_ITS | Clinical Summary ---
Author Organization [address] [facility] Address [address] [place] [address] Phone Care Team Providers Care Personal Care Aide Name Role Phone Sachin Linares NP [...] for left slight decrease in right hand mangle press catcher at 4+/5 -. Gait is steady. Review [...] hand and has an appointment to see [facility] on July 14. She is welcome [...] C-spine MRI done yesterday at [facility] does not show any significant central [...] intact. X-rays of the cervical spine from [facility] dated 2024 show good position of her C4-5 and C5-C6-C7 plates but there does not appear to be robust bone growth across the disc spaces. I will discuss with Dr. Rodriguez and likely order a bone growth stimulator. Meantime, she is going to get in contact with [facility]. We talked about acupuncture and [...] Department Care Team Description 12/23/2024 Telephone [address] [address] Gabby Rodriguze MD 12/17/2024 11:45 AM EST Office Visit [address] [address] Gabby Rodriguez MD Cervical spondylosis (Primary Dx) [...] XRAY REPORT Routine 12/06/2024 12:46 PM EDT [facility] DEXA AXIAL SKELETON Routine 02/02/2018 9:04 [...] [facility] Diagnostic Imaging Department [address] [place] [address] Patient: ADALI HOLMAN Hari /Age/Sex: 1950 - 67 - F Unit#: [id number] Location/Status: [facility] CLI Mnemonic[facility] Ordering Physician: KATERINA TOLBERT MD [facility] Dexa Axial Skeleton - 02/02/18 6593 HISTORY: The patient is a 67-year-old postmenopausal [...] probability of hip fracture of 11.3%. Code 64724 Dictating Physician: GALINA KUO MD Electronically Signed by: GALINA KUO MD Dic Date/Time: 02/02/18901 Sign date/Time: 02/02/18903 Procedure Note Galina Kuo MD - 01/29/2022 [facility] Diagnostic Imaging Department [address] [place], [place] [id number] Patient: ADALI HOLMAN I /Age/Sex: 1950 67 - F Unit#: [id number] Location/Status: [facility]/REG CLI Mnemonic[facility] Ordering Physician: KATERINA TOLBERT MD [facility] [...] density of the femurs bilaterally is 0.707 gm/bm7gdens is 70% of that of young normals [...] probability of hip fracture of 11.3%. Code 81313 Dictating Physician: GALINA KUO MD Electronically Signed by: GALINA KUO MD Dic Date/Time: 02/02/18901 Sign date/Time: 02/02/18903 us Katerina Tolbert MD IMG BI PROCEDURES Final Re sult * [facility] SCREENING DIGITAL (02/02/2018 8:35 AM EST) Anatomical Region Laterality Modality Mammography 02/02/2018 7:10 AM EST Narrative 02/02/2018 8:[address] [facility] Diagnostic Imaging Department [address] [place] [address] Patient: ADALI HOLMAN I /Age/Sex: 1950 - 67 - F Unit#: [id number] Location/Status: [facility] Mnemonic/Ordering Site: [facility] Ordering Physician: JEANETTE CARRERA MD [facility] Screening Digital - 02/02/18 - 0749 INDICATION: SCREENING COMPARISON: [facility] mammograms dating back to 01/12/2013 FINDINGS: CC and MLO views of the breasts were obtained, using full field digital mammography with 3D tomosynthesis views in the MLO projection. 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 Benign bilateral breast [...] target date for the next mammogram. [id number]) , 60780 Dictating Physician: TONI SHRESTHA MD Electronically Signed by: TONI SHRESTHA MD Dic Date/Time: 02/02/18829 Sign date/Time: 02/02/18834 Procedure Note Toni Shrestha MD - 01/29/2022 [facility] Diagnostic Imaging Department [address] [place], [place] [address] Patient: ADALI HOLMAN I /Age/Sex: 1950 - 67 - F Unit#: [id number] Location/Status: [facility]/REG CLI Mnemonic/Ordering Site: [facility] Ordering Physician: JEANETTE CARRERA MD [facility] Screening Digital - 02/02/18 - 0749 INDICATION: SCREENING COMPARISON: [facility] mammograms dating back to 01/12/2013 FINDINGS: CC and MLO views of the breasts were obtained, using full field digital mammography with 3D tomosynthesis views in the MLO projection. Computeraided detection with the [employer] 7.2-H was employed. Benign bilateral breast [...] a target date for the next mammogram. 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
--- OUTSIDE RECORDS SUMMARY | 2025-01-05 13:53 | XMS_ITS | Patient Health Record ---
Author Organization [facility] Address [address] [place] [address] Care Team Providers Care Talent Development Specialist Name Role Phone BEBE VELASCO M.D Primary Care Provider LIZANDRO Bean Unavailable [phone] Allergies Allergen (clinical drug ingredient) Drug/Non Drug Allergy documented on EMR Reaction Allergy Type Onset Date Status 12 Hour Nasal [place] Unknown Drug Allergy Active risedronate Actonel Unknown [...] Status Risk Notes Problem Postmenopausal atrophic vaginitis (03791788) Postmenopausal atrophic vaginitis (N95.2) Active confirmed Problem Age-related osteoporosis (410781241) Age-related osteoporosis without current pathological fracture (M81.0) Active confirmed Problem Essential hypertension (53400602) Essential (primary) hypertension (I10) Active confirmed Problem Hyperlipidemia (46007885) Hyperlipidemia, unspecified (E78.5) Active confirmed Problem Uncomplicated asthma (disorder) (643675964) Unspecified asthma, uncomplicated (J45.909) Active confirmed Problem Gastro-esophageal reflux disease without esophagitis (132206607) Gastro-esophageal reflux disease without esophagitis (K21.9) Active confirmed Plan Of Treatment No Information Insurance Providers Payer Name Payer Address Payer Phone Subscriber Number Group Number Insured Name Patient Relationship to Insured Coverage Start Date Coverage End Date MEDICARE [address] [facility] [place] [id number] LAURENT JORGITO Self - patient is the [...]
== END 2025-01-05 12:49 | disposition home or self-care (01) ==
LOC: HO.HOS 11:07
PROVIDERS: PCP Nurse Practitioner Family; Visit Provider Orthopaedic Surgery
DX: G56.21 Lesion of ulnar nerve, right upper limb (principal); I25.10 Atherosclerotic heart disease of native coronary artery without angina pectoris; G90.519 Complex regional pain syndrome I of unspecified upper limb; M96.1 Postlaminectomy syndrome, not elsewhere classified
CPT/HCPCS: 99214

== ENCOUNTER → 2025-01-05 11:06 | Outpatient (BNVA) | payer MEDICARE, OTHER, SELFPAY | PROVIDERS: PCP Nurse Practitioner Family; Visit Provider Orthopaedic Surgery | DX: G90.511 Complex regional pain syndrome I of right upper limb (principal); I25.10 Atherosclerotic heart disease of native coronary artery without angina pectoris; G56.21 Lesion of ulnar nerve, right upper limb; I10 Essential (primary) hypertension; M96.1 Postlaminectomy syndrome, not elsewhere classified; Z87.891 Personal history of nicotine dependence | CPT/HCPCS: 99212 ==

== ENCOUNTER 2025-01-12 11:03 | Outpatient (AMB) | payer MEDICARE, SELFPAY ==
--- NOTE | 2025-01-12 11:11 | MHC.OFFVIS ---
Vital Signs 01/12/25 11:20 Height 4 ft 11 in Weight 160 lb 7.944 oz BMI 32.4 BP 142/84 H Blood Pressure Location Lt brachial Position Sitting Respiration 16 Pulse 68 Pulse Source Pulse Oximeter Pulse Oximetry (%) 99 Oxygen Delivery Method Room Air Intake Visit Reasons: Osteoporosis/Prolia Intake Note: Patient present today for Osteoporosis and Prolia office visit. Vice President Compliance Required: No Accompanied by: Self / Same As Patient Allergies dexlansoprazole (From DEXILANT) Allergy (Severe, Verified 01/12/25 11:19) dizziness, change in HR risedronate sodium (From ACTONEL) Allergy (Severe, Verified 01/12/25 11:19) chest discomfort Xabgiui-PTC-BdZ Reductase Inhibitor (HKGIACB-SUN-WJL REDUCTASE INHIBITOR) Allergy (Severe, Verified 01/12/25 11:19) JOINT PAIN tramadol (TRAMADOL) Allergy (Severe, Verified 01/12/25 11:19) THROAT TIGHTNESS amlodipine (AMLODIPINE) Allergy (Intermediate, Verified 01/12/25 11:19) PALIPITATIONS Atrovent Allergy (Intermediate, Verified 01/12/25 11:19) Cough baclofen (BACLOFEN) Allergy (Intermediate, Verified 01/12/25 11:19) LETHARGY Beta-Blockers (Beta-Adrenergic Bloc Allergy (Intermediate, Verified 01/12/25 11:19) BRADYCARDIA budesonide (From SYMBICORT) Allergy (Intermediate, Verified 01/12/25 11:19) HOARSENESS Chocolate Allergy (Intermediate, Verified 01/12/25 11:19) GERD ezetimibe (From ZETIA) Allergy (Intermediate, Verified 01/12/25 11:19) JOINT PAIN, ELEVATED CPK fluticasone (From ADVAIR DISKUS) Allergy (Intermediate, Verified 01/12/25 11:19) HTN glucosamine Allergy (Intermediate, Verified 01/12/25 11:19) LE edema ibandronate sodium (From BONIVA) Allergy (Intermediate, Verified 01/12/25 11:19) CHEST PAIN latex (LATEX) Allergy (Intermediate, Verified 01/12/25 11:19) RASH-SENSITIVITY lisinopril (LISINOPRIL) Allergy (Intermediate, Verified 01/12/25 11:19) COUGH, really bad cough meloxicam (From MOBIC) Allergy (Intermediate, Verified 01/12/25 11:19) GI UPSET mometasone furoate (From DULERA) Allergy (Intermediate, Verified 01/12/25 11:19) COUGH niacin Allergy (Intermediate, Verified 01/12/25 11:19) Flushing Penicillins (PENICILLINS) Allergy (Intermediate, Verified 01/12/25 11:19) RASH pregabalin (From LYRICA) Allergy (Intermediate, Verified 01/12/25 11:19) GERD flare up raloxifene (From EVISTA) Allergy (Intermediate, Verified 01/12/25 11:19) GERD rofecoxib (From Vioxx) Allergy (Intermediate, Verified 01/12/25 11:19) ankle swelling salmeterol (From ADVAIR DISKUS) Allergy (Intermediate, Verified 01/12/25 11:19) HTN scallops (SCALLOPS) Allergy (Intermediate, Verified 01/12/25 11:19) NAUSEA & VOMITING sertraline (From ZOLOFT) Allergy (Intermediate, Verified 01/12/25 11:19) SKIN CRAWLING spironolactone (SPIRONOLACTONE) Allergy (Intermediate, Verified 01/12/25 11:19) RASH, ?? psoriasis strawberry (STRAWBERRY) Allergy (Intermediate, Verified 01/12/25 11:19) ITCHING tiotropium (From SPIRIVA WITH HANDIHALER) Allergy (Intermediate, Verified 01/12/25 11:19) RAW THROAT, pharyngitis verapamil (VERAPAMIL) Allergy (Intermediate, Verified 01/12/25 11:19) IRREGULAR HEARTBEAT esomeprazole (Nexium) Allergy (Mild, Verified 01/12/25 11:19) did not resolve GERD naproxen (From ALEVE) Allergy (Mild, Verified 01/12/25 11:19) FLUSH omeprazole Allergy (Mild, Verified 01/12/25 11:19) did not resolve GERD tacrolimus Allergy (Mild, Verified 01/12/25 11:19) Rash adhesive (ADHESIVE) Allergy (Unknown, Verified 01/12/25 11:19) RASH doxycycline (DOXYCYCLINE) Allergy (Unknown, Verified 01/12/25 11:19) SEVERE NOYOLA, HEARTBURN, joint pain gabapentin (From NEURONTIN) Allergy (Unknown, Verified 01/12/25 11:19) leg swelling, SOB metoclopramide (From REGLAN) Allergy (Unknown, Verified 01/12/25 11:19) LETHARGY monosodium glutamate (MSG) Allergy (Unknown, Verified 01/12/25 11:19) HEADACHE, increased HR lifitegrast (From Xiidra) Allergy (Verified 01/12/25 11:19) blurred vision, headache, eye swelling metoprolol Adverse Reaction (Severe, Verified 01/12/25 11:19) Severe bradycardia alendronate sodium (From Fosamax) Adverse Reaction (Intermediate, Verified 01/12/25 11:19) Joint Pain amitriptyline Adverse Reaction (Intermediate, Verified 01/12/25 11:19) Agitated cyclosporine (From Cequa) Adverse Reaction (Intermediate, Verified 01/12/25 11:19) Eye Swelling fluticasone furoate (From Trelegy Ellipta) Adverse Reaction (Intermediate, Verified 01/12/25 11:19) asthma exacerbation perfluorohexyloctane (From Miebo) Adverse Reaction (Intermediate, Verified 01/12/25 11:19) Eye Swelling tobramycin (From Tobrex) Adverse Reaction (Intermediate, Verified 01/12/25 11:19) Eye Swelling umeclidinium (From Trelegy Ellipta) Adverse Reaction (Intermediate, Verified 01/12/25 11:19) asthma exacerbation vilanterol (From Trelegy Ellipta) Adverse Reaction (Intermediate, Verified 01/12/25 11:19) asthma exacerbation azelastine Adverse Reaction (Mild, Verified 01/12/25 11:19) Gastrointestinal Upset hi Adverse Reaction (Intermediate, Uncoded 01/05/25 11:44) Itchy Eyes Sulindac Adverse Reaction (Intermediate, Uncoded 01/05/25 11:44) Nausea, pain Medication List - Last Reconciled 01/12/25 by Manas Doss MD acetaminophen ER (Tylenol Arthritis Pain) 650 mg PO Q12H aspirin (Adult Aspirin Regimen) 81 mg PO DAILY beclomethasone dipropionate 80 mcg/actuation (Qvar RediHaler) 1 inh inhalation BID 30 days Bifidobacterium infantis (Align (B.infantis)) 4 mg PO DAILY cetirizine (Zyrtec) 10 mg PO DAILY PRN cholecalciferol (vitamin D3) 25 mcg PO DAILY 30 days cyclosporine 0.05% (Restasis) 1 drp ophthalmic (eye) Q12H denosumab (Prolia) 60 mg subcut [id number] dextran 70-hypromellose (PF) 0.1-0.3 % (Artificial Tears (PF)) 1 drp ophthalmic (eye) BEDTIME docusate sodium (Colace) 100 mg PO BID flunisolide 2 sprays intranasal BID PRN levalbuterol tartrate 45 mcg/actuation 2 puffs inhalation Q4H PRN lorazepam (Ativan) 0.5 mg PO BID PRN losartan 50 mg PO DAILY losartan-hydrochlorothiazide 50-12.5 mg 1 tab PO DAILY mesalamine ER (Pentasa) 1,000 mg (2 x 500 mg) PO BID 90 days metaxalone 800 mg PO TID PRN montelukast 10 mg PO DAILY 90 days pantoprazole 40 mg PO BID Repatha SureClick (evolocumab) 140 mg subcut Q2W NS sucralfate 1 g PO BID 90 days HPI Comments Details: 74 yo female today for fup visit, l for fup NTMNG, osteoporosis. She is feeling well. She is taking Viactiv twice a day and vitamin-D 1000 international units daily. She is currently on Evenity and has had 12 doses Could not tolerate Boniva after 3 wks. Boniva caused position . Transitioning to Prolia today She had side effect with Bisphosphonates. she had chest pain with 2 oral bisphosphonates. Secondary workup was normal except for low urinary calcium but urinary creatinine was low as well. Started Evenity took 2 doses last dose was after booster 4 days later and had gastrointestinal side effects . First dose caused no problem. Patient has h/o of primary hyperparathyroidism, s/p parathyroidectomy 3 and 02/11 on 2012, osteoporosis. she has h/o in situ cervical cancer, treated with hysterectomy. She has extensive FH of cancer, Her sister has Torin's disease, had thyroidectomy. Denies cold or heat intolerance, weight loss or gain, post menopausal, diarrhea, constipation, insomnia, fatigue, dry skin, dysphagia, dyspnea, dysphonia, tremors, + occasional palpitations, denies irritability, anxiety. DEXA scan reviewed over years. 2011 LS BMD 0.963 gm/cm2, Score - 1.7 Femur BMD 0.707 GM/cm2, Score - 2.4 FN R T score -2.7 L -3.0 Forearm BMD 0.698 gm/cm2, T score - 2.1 2013 LS BMD 0.947 gm/cm2, Tscore - 1.8 Forearm BMD 0.684 gm/cm2, Tscore - 2.3 2015 LS BMD 0.947 gm/cm2, Tscore - 1.8 Femur BMD 0.703 gm/cm2, Tscore - 2.4 FN R -2.7 from -2.5, FN L -3.3 from -3.0 Forearm BMD 0.656 gm/cm2, Tscore - 2.6 02/02/18 [facility] LS BMD 0.957 gm/cm2, T-score -1.7 Femur BMD 0.707 gm/cm2, T-score -2.4 Right femoral neck -2.7 , left FN T score -3.0 DEXA 02/18/2020 AP SPINE L1-L2 (excluding L3 and L4): The data of L1-L4 has been changed to exclude the L3 and L4 vertebral bodies, because degenerative changes at these levels may cause overestimation of lumbar spine density. BMD 0.798 g/cm2, Z-score -1.6, T-score -3.1, osteoporosis. LEFT FEMUR, NECK: BMD 0.534 g/cm2, Z-score -2.1, T-score -3.6, osteoporosis. LEFT FEMUR, TOTAL: BMD 0.626 g/cm2, Z-score -1.7, T-score -3.0, osteoporosis. 12/19/17 US thyroid Right Thyroid Lobe: 3.3 x 1.2 x 1.6 cm, volume 3.1 mL. Previously 3.2 x 1.0 x 1.2 cm, volume 2.0 mL. Left Thyroid Lobe: 3.2 x 1.1 x 1.3 cm, volume 2.3 mL. Previously 3.2 x 0.9 x 1.2 cm, volume 1.8 mL. Isthmus: 0.2 cm in maximum AP dimension. Previously 0.3 cm. PARENCHYMA: The gland echotexture is homogeneous. Thyroid vascularity is normal. RIGHT THYROID LOBE: There are 3 nodules seen. 1. Location: Mid/upper pole Size: 0.2 x 0.2 x 0.2 cm. Previous: 0.2 x 0.1 x 0.2 cm. Nodule characteristics: Hypoechoic with smooth margins and no intranodular flow 2. Location: Upper/mid pole Size: 0.2 x 0.2 x 0.2 cm. Previous: 0.2 x 0.2 x 0.1 cm. Nodule characteristics: Hypoechoic with smooth margins and no intranodular flow 3. Location: Medial midpole Size: 0.5 x 0.3 x 0.4 cm. Previous: 0.4 x 0.2 x 0.4 cm. Nodule characteristics: Hypoechoic with smooth margins and no intranodular flow ISTHMUS: No nodules. LEFT THYROID LOBE: There is 1 nodule seen. 1. Location: Midpole Size: 0.4 x 0.3 x 0.3 cm. Previous: 0.3 x 0.3 x 0.2 cm. Nodule characteristics: Hypoechoic with smooth margins and no intranodular flow. NODES: No lymphadenopathy is seen in the tissue surrounding the thyroid gland. She is complaining of some dysphagia Laboratory Tests 10/28/19 12/08/19 06:18 12:32 Creatinine 0.83 Estimated GFR > 60 Calcium 8.6 8.6 Alkaline Phosphatase 112 Albumin 4.1 Completed a course of Evenity. Now on Prolia as well as calcium Viactiv 1500 mg BID and vitamin D supplementation. No fracture since last visit [facility] Medical History Esophageal spasm Hx of carcinoma of bladder Bladder carcinoma History of trigger finger Cervical radiculitis Chronic sinusitis GERD (gastroesophageal reflux disease) FRANCESCA (obstructive sleep apnea) CAD (coronary artery disease) History of primary hyperparathyroidism Non-toxic multinodular goiter Osteoporosis Pulmonary nodules H/O gastroesophageal reflux (GERD) HLD (hyperlipidemia) HTN (hypertension) COPD (chronic obstructive pulmonary disease) Asthma History of aneurysm Migraine Depression PTSD (post-traumatic stress disorder) History of panic attacks Anxiety Edema History of deviated nasal septum Medial epicondylitis of left elbow Fusion of spine, cervical region Surgical History (Reviewed 01/12/25 @ 11:19 by Ary Paul [facility]) History of carpal tunnel release Hx of cystoscopy H/O cervical spine surgery Hx of hand surgery Hx of right inguinal hernia repair History of hernia repair Hx of colonoscopy History of esophagogastroduodenoscopy (EGD) S/P repair of paraesophageal hernia H/O decompression of ulnar nerve Status post ablation of incompetent vein using laser History of cardiac catheterization History of eyelid surgery History of appendectomy History of parathyroidectomy History of cholecystectomy Hx of cataract surgery Hx of shoulder surgery S/P cubital tunnel release S/P arthroscopic surgery of right knee History of lumpectomy of both breasts History of hysterectomy Hx of adenoidectomy Hx of tonsillectomy Hx of eye surgery Family History Father Liver cancer Psoriasis Cancer Mental health disorder Mother Cervical cancer Ovarian cancer Heart attack Substance use disorder Social History Household Members: Children and None Housing: House Alcohol intake: current Alcohol intake frequency: does not drink Patient Tobacco Use Status: Former Tobacco user Tobacco use type: Cigarette e-Cigarette/Vaping Use: Never Used Second Hand Smoke Exposure: No service: No Current occupational status: employed 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 Secondary workup is negative except for low urinary calcium still low for corrected urinary creatinine. She finished a course of Evenity. Now on Prolia since 12/2022. Off HCTZ X 6 mos Will recheck 24 hr urine for calcium and creatinine . Will give another Prolia injection today. Will probably continue Prolia for another one to two years' time recheck bone density in two years. May then transition to IV Reclast this patient can not tolerate p.o. bisphosphonate. Will also check a celiac screen to rule out celiac disease malabsorption the cause for low absorption of calcium Orders: Orders Celiac Disease Panel Today M81.0 - Age-related osteoporosis without current pathological fracture Calcium, 24 Hr Ur 1 Month M81.0 - Age-related osteoporosis without current pathological fracture Creatinine, 24 Hr Group Today M81.0 - Age-related osteoporosis without current pathological fracture Coding Level of Care Code Est Pt Level 3 (43074) Diagnoses Osteoporosis M81.0
[2025-01-12 11:20] VITALS: BP 142/84; PULSE 68; RESP 16; O2SAT 99; BMI 32.4
--- OUTSIDE RECORDS SUMMARY | 2025-01-12 13:11 | XMS_ITS | Patient Health Record ---
Author Organization [facility] Address [address] [place] [address] Care Team Providers Care Vp Project Name Role Phone BEBE VELASCO M.D Primary Care Provider LIZANDRO Bean Unavailable [phone] Allergies Allergen (clinical drug ingredient) Drug/Non Drug Allergy documented on EMR Reaction Allergy Type Onset Date Status 12 Hour Nasal [place] Unknown Drug Allergy Active risedronate Actonel Unknown [...] Status Risk Notes Problem Postmenopausal atrophic vaginitis (00231685) Postmenopausal atrophic vaginitis (N95.2) Active confirmed Problem Age-related osteoporosis (748305048) Age-related osteoporosis without current pathological fracture (M81.0) Active confirmed Problem Essential hypertension (33356822) Essential (primary) hypertension (I10) Active confirmed Problem Hyperlipidemia (38988300) Hyperlipidemia, unspecified (E78.5) Active confirmed Problem Uncomplicated asthma (disorder) (172171556) Unspecified asthma, uncomplicated (J45.909) Active confirmed Problem Gastro-esophageal reflux disease without esophagitis (540781447) Gastro-esophageal reflux disease without esophagitis (K21.9) Active confirmed Plan Of Treatment No Information Insurance Providers Payer Name Payer Address Payer Phone Subscriber Number Group Number Insured Name Patient Relationship to Insured Coverage Start Date Coverage End Date MEDICARE [address] [facility] [place] [id number] [phone] [id number] LAURENT JORGITO Self - patient is the [...]
--- OUTSIDE RECORDS SUMMARY | 2025-01-12 13:11 | XMS_ITS | Clinical Summary ---
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 Gait is steady. [...] hand and has an appointment to see [facility] on July 14. She is welcome [...] using it. C-spine MRI done yesterday at [facility] does not show any significant [...] intact. X-rays of the cervical spine from [facility] dated 2024 show good position of her C4-5 and C5-C6-C7 plates but there does not appear to be robust bone growth across the disc spaces. I will discuss with Dr. Rodriguez and likely order a bone growth stimulator. Meantime, she is going to get in contact with [facility]. We talked about acupuncture and [...] Department Care Team Description 12/23/2024 Telephone Neurosurgery [address] [address] Gabby Rodriguez MD 12/17/2024 11:45 AM EST Office Visit [address] [address] Gabby Rodriguez MD Cervical spondylosis (Primary Dx) [...] XRAY REPORT Routine 12/06/2024 12:46 PM EDT [facility] DEXA AXIAL SKELETON Routine 02/02/2018 [...] EST Narrative 02/02/2018 9:04 AM EST [facility] Diagnostic Imaging Department [address] [place] [address] Patient: ADALI HOLMAN Hari /Age/Sex: 1950 - 67 - F Unit#: [id number] Location/Status: [facility] CLI [facility] Order[facility] Physician: KATERINA TOLBERT MD [facility] Dexa Axial Skeleton - 02/02/18 6817 HISTORY: The patient is a 67-year-old postmenopausal [...] probability of hip fracture of 11.3%. Code 14331 Dictating Physician: GALINA KUO MD Electronically Signed by: GALINA KUO MD Dic Date/Time: 02/02/18901 Sign date/Time: 02/02/18903 Procedure Note Galina Kuo MD - 01/29/2022 [facility] Diagnostic Imaging Department [address] [place], [place] [address] Patient: ADALI HOLMAN I /Age/Sex: 1950 67 - F Unit#: [id number] Location/Status: [facility]/REG CLI Mnemonic[facility] Ordering Physician: KATERINA TOLBERT MD Dimas [...] density of the femurs bilaterally is 0.707 gm/pt1yihis is 70% of that of young normals [...] probability of hip fracture of 11.3%. Code 13821 Dictating Physician: GALINA KUO MD Electronically Signed by: GALINA KUO MD Dic Date/Time: 02/02/18901 Sign date/Time: 02/02/18903 us Katerina Tolbert MD IMG BI PROCEDURES Final Re sult * [facility] SCREENING DIGITAL (02/02/2018 8:35 AM EST) Anatomical Region Laterality Modality Mammography 02/02/2018 7:10 AM EST Narrative 02/02/2018 8:35 AM EST [facility] Diagnostic Imaging Department [address] [place] [address] Patient: ADALI HOLMAN I /Age/Sex: 1950 - 67 - F Unit#: [id number] Location/Status: [facility] Mnemonic/Ordering Site: [facility] Ordering Physician: JEANETTE CARRERA MD [facility] Screening Digital - 02/02/18 - 0749 INDICATION: SCREENING COMPARISON: [facility] mammograms dating back to 01/12/2013 FINDINGS: CC and MLO views of the breasts were obtained, using full field digital mammography with 3D tomosynthesis views in the MLO projection. Computer aided detection with the SYLLETA 7.2-H was employed. Benign bilateral breast biopsies [...] target date for the next mammogram. [id number]) , [id number] Dictating Physician: TONI SHRESTHA MD Electronically Signed by: TONI SHRESTHA MD Dic Date/Time: 02/02/18829 Sign date/Time: 02/02/18834 Procedure Note Toni Shrestha MD - 01/29/2022 [facility] Diagnostic Imaging Department [address] [place], [place] [address] Patient: ADALI HOLMAN I /Age/Sex: 1950 - 67 - F Unit#: [id number] Location/Status: [facility]/REG CLI Mnemonic/Ordering Site: [facility] Ordering Physician: JEANETTE CARRERA MD [facility] Screening Digital - 02/02/18 - 0749 INDICATION: SCREENING COMPARISON: [facility] mammograms dating back to 01/12/2013 FINDINGS: CC and MLO views of the breasts were obtained, using full field digital mammography with 3D tomosynthesis views in the MLO projection. Computeraided detection with the SYLLETA 7.2-H was employed. Benign bilateral breast biopsies [...] a target date for the next mammogram. [id number] / [id number]) , [id number] Dictating Physician: TONI SHRESTHA MD Electronically Signed by: TONI SHRESTHA MD Dic Date/Time: 02/02/18 0830 Sign date/Time: 02/02/18 0835 Jeanette Carrera MD IMG BI PROCEDURES Final Resu lt from Last 3 Months or Most Recently Relevant to Health Maintenance Insurance [employer] [place] [employer] Advance Directives Documents on File Type Date Recorded Patient Cad Operator Expl anation Health Care Decision (hx) [...] (hx) 07/18/2009 AD HERNANDEZ DIRECTIVE Care Teams Catalyst Operator Gasoline Relationship Specialty Start Date End Date Sachin Linares NP [address] [place], [place] PCP - General 05/31/22
== END 2025-01-12 12:22 | disposition home or self-care (01) ==
LOC: HO.ENCR 11:04
PROVIDERS: PCP Nurse Practitioner Family; Visit Provider Internal Medicine Endocrinology, Diabetes & Metabolism
DX: M81.8 Other osteoporosis without current pathological fracture (principal); M81.0 Age-related osteoporosis without current pathological fracture
CPT/HCPCS: 99213

== ENCOUNTER → 2025-01-12 11:03 | Outpatient (BNVA) | payer MEDICARE, OTHER, SELFPAY | PROVIDERS: PCP Nurse Practitioner Family; Visit Provider Internal Medicine Endocrinology, Diabetes & Metabolism | DX: M81.0 Age-related osteoporosis without current pathological fracture (principal); Z79.899 Other long term (current) drug therapy | CPT/HCPCS: 96372; 99212; Q5136 ==

== ENCOUNTER 2025-01-17 07:48 | Outpatient (AMB) | payer MEDICARE, SELFPAY ==
--- OUTSIDE RECORDS SUMMARY | 2025-01-17 07:54 | XMS_ITS | Patient Health Record ---
Author Organization [facility] Address [address] [place] [address] Care Team Providers Care Recreation Attendant Supervisor Name Role Phone Augustine Carrera M.D. 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81) Active confirmed Problem Epigastric pain (87281328) Abdominal discomfort, epigastric (789.06) Active confirmed Problem Gas (06098927) Gas (787.3) Active confirmed Plan Of Treatment Future Test Test Name Order Date UPPER GI ENDOSCOPY 08/15/2011 Insurance Providers Payer Name Payer Address Payer Phone Subscriber Number Group Number Insured Name Patient Relationship to Insured Coverage Start Date Coverage End Date MEDICARE OF [place] [address] [place] [address] [id number] JORGITO ALCANTARA Self - patient is the insured [facility] [address] [place] [phone] [id number] JORGITO ALCANTARA Self - patient is the [...]
--- OUTSIDE RECORDS SUMMARY | 2025-01-17 07:54 | XMS_ITS | Clinical Summary ---
Author Organization 175 [facility] Address [address] [place] [address] Phone Care Team Providers Care Packaging Machine Operator Name Role Phone Sachin Linares NP Primary Care Provider [phone] Allergies Active Allergy Reactions Criticality Noted Date [...] BOTH EYE TWICE A DAY 4 Active pantoprazole (PROTONIX) 40 mg EC tablet [...] MG SUBCUTANEOUSLY EVERY 2 WEEKS 5 Active levalbuterol (XOPENEX HFA) 45 mcg/actuation inhaler 2 PUFF INHALED EVERY 4 HOURS NEEDED FOR FOR WHEEZING 5 Active Jubbonti 60 mg/mL syringe syringe 5 Active fluocinolone acetonide oiL 0.01 % drops APPLY 2 DROPS PER EAR TWICE DAILY NEEDED FOR FLARES 5 Active Active Problems Problem Noted Date Diagnosed Date [...] 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 Gait is steady. Review [...] hand and has an appointment to see [facility] on July 14. She is welcome [...] using it. C-spine MRI done yesterday at [facility] does not show any significant central [...] intact. X-rays of the cervical spine from [facility] dated 2024 show good position of her C4-5 and C5-C6-C7 plates but there does not appear to be robust bone growth across the disc spaces. I will discuss with Dr. Rodriguez and likely order a bone growth stimulator. Meantime, she is going to get in contact with [facility]. We talked about acupuncture and [...] Department Care Team Description 12/23/[address] [address] Gabby Rodriguez MD 12/17/2024 11:45 AM EST Office Visit [address] [address] Gabby Rodriguez MD Cervical spondylosis (Primary [...] on file Sexual Orientation Not on file Last Filed Vital Signs Vital Sign Reading [...] XRAY REPORT Routine 12/06/2024 12:46 PM EDT [facility] DEXA AXIAL SKELETON [...] CODY XR PROCEDURES Final R esult * [facility] DEXA AXIAL SKELETON (02/02/2018 9:04 AM EST) Anatomical Region Laterality Modality Mammography 02/02/2018 7:11 AM EST Narrative 02/02/2018 9:04 AM EST [facility] Diagnostic Imaging Department [address] [place] [address] Patient: ADALI HOLMAN Hari /Age/Sex: 1950 - 67 - F Unit#: [id number] [facility] Ordering Physician: KATERINA TOLBERT MD [place] [...] probability of hip fracture of 11.3%. Code 23477 Dictating Physician: GALINA KUO MD Electronically Signed by: GALINA KUO MD Dic Date/Time: 02/02/18901 Sign date/Time: 02/02/18903 Procedure Note Galina Kuo MD - 01/29/2022 [facility] Diagnostic Imaging Department [address] [place] [address] Patient: ADALI HOLMAN I /Age/Sex: 1950 - 67 - F Unit#: [id number] Location/Status: [facility] Mnemonic[facility]ing [facility] Ordering Physician: KATERINA TOLBERT MD [facility] Dexa Axial Skeleton - 02/02/18 0749 HISTORY: The patient is a 67-year-old postmenopausal [...] density of the femurs bilaterally is 0.707 gm/hj3scunq is 70% of that of young normals [...] probability of hip fracture of 11.3%. Code 77618 Dictating Physician: GALINA KUO MD Electronically Signed by: GALINA KUO MD Dic Date/Time: 02/02/18901 Sign date/Time: 02/02/18903 us Katerina Tolbert MD IMG BI PROCEDURES Final Re sult * [facility] SCREENING DIGITAL (02/02/2018 8:35 AM EST) Anatomical Region Laterality Modality Mammography 02/02/2018 7:10 AM EST Narrative 02/02/2018 8:35 AM EST [facility] Diagnostic Imaging Department [address] [place] [address] Patient: ADALI HOLMAN I /Age/Sex: 1950 - 67 - F Unit#: [id number] Location/Status: [facility]/REG CLI Mnemonic/Ordering Site: [facility] Ordering Physician: JEANETTE CARRERA MD [facility] Screening Digital - 02/02/18 - 49 INDICATION: SCREENING COMPARISON: [facility] mammograms dating back to 01/12/2013 FINDINGS: CC and MLO views of the breasts were obtained, using full field digital mammography with 3D tomosynthesis views in the MLO projection. Computer aided detection with the [employer] 7.2-H was employed. Benign bilateral breast [...] a target date for the next mammogram. ([id number] / [id number]) , 73106 Dictating Physician: TONI SHRESTHA MD Electronically Signed by: TONI SHRESTHA MD Dic Date/Time: 02/02/18829 Sign date/Time: 02/02/18834 Procedure Note Toni Shrestha MD - 01/29/2022 [facility] Diagnostic Imaging Department [address] [place] [address] Patient: ADALI HOLMAN I /Age/Sex: 1950 - 67 - F Unit#: [id number] Location/Status: [facility] CLI Mnemonic/Ordering Site: [facility] Ordering Physician: JEANETTE CARRERA MD [facility] Screening Digital - 02/02/18 - 0749 INDICATION: SCREENING COMPARISON: [facility] mammograms dating back to 01/12/2013 FINDINGS: CC and MLO views of the breasts were obtained, using full field digital mammography with 3D tomosynthesis views in the MLO projection. Computeraided detection with the View [employer] 7.2-H was employed. Benign bilateral breast [...] a target date for the next mammogram. [id number] / [id number]) , 81545 Dictating Physician: TONI SHRESTHA MD Electronically Signed by: TONI SHRESTHA MD Dic Date/Time: 02/02/18 0830 Sign date/Time: 02/02/18 0835 Jeanette Carrera MD IMG BI PROCEDURES Final Resu lt from Last 3 Months or Most Recently Relevant to Health Maintenance Insurance [employer] [place] [employer]VANT[employer] Advance Directives Documents on File Type Date Recorded Patient Insurance Biller Expl anation Health Care Decision (hx) 07/02/2022 [...] (hx) 07/18/2009 AD HERNANDEZ DIRECTIVE Care Teams Packaging Machine Operator Relationship Specialty Start Date End Date Sachin Linares NP [address] [place], [place] PCP - General 05/31/22
--- OUTSIDE RECORDS SUMMARY | 2025-01-17 07:54 | XMS_ITS | Patient Health Record ---
Author Organization [facility] Address [address] [place] [address] Care Team Providers Care Adon Name Role Phone BEBE VELASCO M.D Primary Care Provider LIZANDRO Bean Unavailable [phone] Allergies Allergen (clinical drug ingredient) Drug/Non Drug Allergy documented on EMR Reaction Allergy Type Onset Date Status 12 Hour Nasal [place] Unknown Drug Allergy Active risedronate Actonel Unknown [...] Status Risk Notes Problem Postmenopausal atrophic vaginitis (39662792) Postmenopausal atrophic vaginitis (N95.2) Active confirmed Problem Age-related osteoporosis (472747172) Age-related osteoporosis without current pathological fracture (M81.0) Active confirmed Problem Essential hypertension (13025160) Essential (primary) hypertension (I10) Active confirmed Problem Hyperlipidemia (55523142) Hyperlipidemia, unspecified (E78.5) Active confirmed Problem Uncomplicated asthma (disorder) (026705708) Unspecified asthma, uncomplicated (J45.909) Active confirmed Problem Gastro-esophageal reflux disease without esophagitis (867239848) Gastro-esophageal reflux disease without esophagitis (K21.9) Active confirmed Plan Of Treatment No Information Insurance Providers Payer Name Payer Address Payer Phone Subscriber Number Group Number Insured Name Patient Relationship to Insured Coverage Start Date Coverage End Date MEDICARE [address] [facility] [place] [id number] LAURENT JORGITO Self - patient is the [...]
--- NOTE | 2025-01-17 08:04 | A.OFFPC_ITS ---
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 Accompanied by: Self / Same As Patient Allergies dexlansoprazole (From DEXILANT) Allergy (Severe, Verified 01/17/25 08:46) dizziness, change in HR risedronate sodium (From ACTONEL) Allergy (Severe, Verified 01/17/25 08:46) chest discomfort Dendwgz-VEJ-YlH Reductase Inhibitor ([id number]-KGW REDUCTASE INHIBITOR) Allergy (Severe, Verified 01/17/25 08:46) JOINT PAIN tramadol (TRAMADOL) Allergy (Severe, Verified 01/17/25 08:46) THROAT TIGHTNESS amlodipine (AMLODIPINE) Allergy (Intermediate, Verified 01/17/25 08:46) PALIPITATIONS Atrovent Allergy (Intermediate, Verified 01/17/25 08:46) Cough baclofen (BACLOFEN) Allergy (Intermediate, Verified 01/17/25 08:46) LETHARGY Beta-Blockers (Beta-Adrenergic Bloc Allergy (Intermediate, Verified 01/17/25 08:46) BRADYCARDIA budesonide (From SYMBICORT) Allergy (Intermediate, Verified 01/17/25 08:46) HOARSENESS Chocolate Allergy (Intermediate, Verified 01/17/25 08:46) GERD ezetimibe (From ZETIA) Allergy (Intermediate, Verified 01/17/25 08:46) JOINT PAIN, ELEVATED CPK fluticasone (From ADVAIR DISKUS) Allergy (Intermediate, Verified 01/17/25 08:46) HTN glucosamine Allergy (Intermediate, Verified 01/17/25 08:46) LE edema ibandronate sodium (From BONIVA) Allergy (Intermediate, Verified 01/17/25 08:46) CHEST PAIN latex (LATEX) Allergy (Intermediate, Verified 01/17/25 08:46) RASH-SENSITIVITY lisinopril (LISINOPRIL) Allergy (Intermediate, Verified 01/17/25 08:46) COUGH, really bad cough meloxicam (From MOBIC) Allergy (Intermediate, Verified 01/17/25 08:46) GI UPSET mometasone furoate (From DULERA) Allergy (Intermediate, Verified 01/17/25 08:46) COUGH niacin Allergy (Intermediate, Verified 01/17/25 08:46) Flushing Penicillins (PENICILLINS) Allergy (Intermediate, Verified 01/17/25 08:46) RASH pregabalin (From LYRICA) Allergy (Intermediate, Verified 01/17/25 08:46) GERD flare up raloxifene (From EVISTA) Allergy (Intermediate, Verified 01/17/25 08:46) GERD rofecoxib (From Vioxx) Allergy (Intermediate, Verified 01/17/25 08:46) ankle swelling salmeterol (From ADVAIR DISKUS) Allergy (Intermediate, Verified 01/17/25 08:46) HTN scallops (SCALLOPS) Allergy (Intermediate, Verified 01/17/25 08:46) NAUSEA & VOMITING sertraline (From ZOLOFT) Allergy (Intermediate, Verified 01/17/25 08:46) SKIN CRAWLING spironolactone (SPIRONOLACTONE) Allergy (Intermediate, Verified 01/17/25 08:46) RASH, ?? psoriasis strawberry (STRAWBERRY) Allergy (Intermediate, Verified 01/17/25 08:46) ITCHING tiotropium (From SPIRIVA WITH HANDIHALER) Allergy (Intermediate, Verified 01/17/25 08:46) RAW THROAT, pharyngitis verapamil (VERAPAMIL) Allergy (Intermediate, Verified 01/17/25 08:46) IRREGULAR HEARTBEAT esomeprazole (Nexium) Allergy (Mild, Verified 01/17/25 08:46) did not resolve GERD naproxen (From ALEVE) Allergy (Mild, Verified 01/17/25 08:46) FLUSH omeprazole Allergy (Mild, Verified 01/17/25 08:46) did not resolve GERD tacrolimus Allergy (Mild, Verified 01/17/25 08:46) Rash adhesive (ADHESIVE) Allergy (Unknown, Verified 01/17/25 08:46) RASH doxycycline (DOXYCYCLINE) Allergy (Unknown, Verified 01/17/25 08:46) SEVERE NOYOLA, HEARTBURN, joint pain gabapentin (From NEURONTIN) Allergy (Unknown, Verified 01/17/25 08:46) leg swelling, SOB metoclopramide (From REGLAN) Allergy (Unknown, Verified 01/17/25 08:46) LETHARGY monosodium glutamate (MSG) Allergy (Unknown, Verified 01/17/25 08:46) HEADACHE, increased HR lifitegrast (From Xiidra) Allergy (Verified 01/17/25 08:46) blurred vision, headache, eye swelling metoprolol Adverse Reaction (Severe, Verified 01/17/25 08:46) Severe bradycardia alendronate sodium (From Fosamax) Adverse Reaction (Intermediate, Verified 01/17/25 08:46) Joint Pain amitriptyline Adverse Reaction (Intermediate, Verified 01/17/25 08:46) Agitated cyclosporine (From Cequa) Adverse Reaction (Intermediate, Verified 01/17/25 08:46) Eye Swelling fluticasone furoate (From Trelegy Ellipta) Adverse Reaction (Intermediate, Verified 01/17/25 08:46) asthma exacerbation perfluorohexyloctane (From Miebo) Adverse Reaction (Intermediate, Verified 12 08:46) Eye Swelling tobramycin (From Tobrex) Adverse Reaction (Intermediate, Verified 01/17/25 08:46) Eye Swelling umeclidinium (From Trelegy Ellipta) Adverse Reaction (Intermediate, Verified 12 08:46) asthma exacerbation vilanterol (From Trelegy Ellipta) Adverse Reaction (Intermediate, Verified 01/17/25 08:46) asthma exacerbation azelastine Adverse Reaction (Mild, Verified 01/17/25 08:46) Gastrointestinal Upset hi Adverse Reaction (Intermediate, Uncoded 01/17/25 08:46) Itchy Eyes Sulindac Adverse Reaction (Intermediate, Uncoded 01/17/25 08:46) Nausea, pain Medication List - Last Reconciled 01/17/25 by HALIE Mcmahon-YAYO acetaminophen ER (Tylenol Arthritis Pain) 650 mg PO Q12H aspirin (Adult Aspirin Regimen) 81 mg PO DAILY beclomethasone dipropionate 80 mcg/actuation (Qvar RediHaler) 1 inh inhalation BID 30 days Bifidobacterium infantis (Align (B.infantis)) 4 mg PO DAILY cetirizine (Zyrtec) 10 mg PO DAILY PRN cholecalciferol (vitamin D3) 25 mcg PO DAILY 30 days cyclosporine 0.05% (Restasis) 1 drp ophthalmic (eye) Q12H denosumab (Prolia) 60 mg subcut [id number] dextran 70-hypromellose (PF) 0.1-0.3 % (Artificial Tears (PF)) 1 drp ophthalmic (eye) BEDTIME docusate sodium (Colace) 100 mg PO BID flunisolide 2 sprays intranasal BID PRN levalbuterol tartrate 45 mcg/actuation 2 puffs inhalation Q4H PRN lorazepam (Ativan) 0.5 mg PO BID PRN losartan 50 mg PO DAILY metaxalone 800 mg PO TID PRN montelukast 10 mg PO DAILY 90 days pantoprazole 40 mg PO BID Repatha SureClick (evolocumab) 140 mg subcut Q2W NS sucralfate 1 g PO BID 90 days Tobacco use date assessed: 01/17/25 Fall risk assessment: No Falls in past year Last assessed Fall Risk: 01/17/25 Dental Screening Dental Screen Date: 01/17/25 Did you have a dental visit in the last 12 months?: Yes Did you have a dental problem in the last 6 months where you did not have access to dental care?: No Was dental information given to patient?: Patient has dentist HPI Pre op HPI Details Chief Complaint The patient presents for a preoperative evaluation. History of Present Illness The patient is a 74-year-old female presenting for a preoperative evaluation for a right wrist ulnar nerve decompression. Social History Health Maintenance - Preoperative evaluation Review of Systems - Constitutional: Denies fevers and chil ls. - HEENT: Denies sinus symptoms. - Respiratory: Denies shortness of breat h. - Cardiovascular: Denies chest pain. - Musculoskeletal: Reports need for ulna r nerve decompression in the right wrist. Physical Exam General: Cooperative, healthy appearing, comfortable, no acute distress and well developed Orientation: Patient oriented x3 Limitations: No limitations Head: Normal to inspection Ears: Hearing grossly normal bilaterally Nose: Normal external nose present Face and sinus: Normal facial exam Eyes: Appearance normal, both eyes and all related structures Neck: Normal visual inspection and Yes full ROM Respiratory: Normal respiratory effort and able to speak in complete sentences. Clear to auscultation bilaterally. very faint crackles to left base Cardiovascular: Regular rate and rhythm. Normal S1 and S2 GI: Normal to inspection. Soft to palpation and nontender Skin: No rashes or lesions noted Neuro: Patient oriented x3 Extremities: Normal to inspection Results - EKG: Normal sinus rhythm. Plan 1. Preoperative Surgical Clearance The patient is undergoing a preoperative evaluation for an upcoming right wrist decompression of the ulnar nerve. She has a forthcoming follow-up with anesthesiology. Preoperative labs, including PT and PTT, will be drawn today. Surgical clearance will be provided after the lab results are reviewed. Discussion Notes I discussed with the patient that she is here for preoperative clearance for her right wrist ulnar nerve decompression. I informed her that she will undergo lab work today, including a PT and PTT, and that I will fidelina surgical clearance once I have reviewed the results. I noted her upcoming appointment with anesthesiology. Patient Instructions - Please proceed to have your lab work d rawn today as ordered. This will include tests to check your blood's ability to clot (PT and PTT). - We will provide clearance for your albin tamir after we receive and review your lab results. - Make sure to follow up with the anesth esiology department for your scheduled appointment. [facility] Medical History Esophageal spasm Hx of carcinoma of bladder Bladder carcinoma History of trigger finger Cervical radiculitis Chronic sinusitis GERD (gastroesophageal reflux disease) FRANCESCA (obstructive sleep apnea) CAD (coronary artery disease) History of primary hyperparathyroidism Non-toxic multinodular goiter Osteoporosis Pulmonary nodules H/O gastroesophageal reflux (GERD) HLD (hyperlipidemia) HTN (hypertension) COPD (chronic obstructive pulmonary disease) Asthma History of aneurysm Migraine Depression PTSD (post-traumatic stress disorder) History of panic attacks Anxiety Edema History of deviated nasal septum Medial epicondylitis of left elbow Fusion of spine, cervical region Surgical History History of carpal tunnel release Hx of cystoscopy H/O cervical spine surgery Hx of hand surgery Hx of right inguinal hernia repair History of hernia repair Hx of colonoscopy History of esophagogastroduodenoscopy (EGD) S/P repair of paraesophageal hernia H/O decompression of ulnar nerve Status post ablation of incompetent vein using laser History of cardiac catheterization History of eyelid surgery History of appendectomy History of parathyroidectomy History of cholecystectomy Hx of cataract surgery Hx of shoulder surgery S/P cubital tunnel release S/P arthroscopic surgery of right knee History of lumpectomy of both breasts History of hysterectomy Hx of adenoidectomy Hx of tonsillectomy Hx of eye surgery Family History Father Liver cancer Psoriasis Cancer Mental health disorder Mother Cervical cancer Ovarian cancer Heart attack Substance use disorder Social History Household Members: Children and None Housing: House Alcohol intake: current Alcohol intake frequency: does not drink Patient Tobacco Use Status: Former Tobacco user Tobacco use type: Cigarette e-Cigarette/Vaping Use: Never Used Second Hand Smoke Exposure: No service: No Current occupational status: employed 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 1. Little interest or pleasure in doing things: not at all 2. Feeling down, depressed, or hopeless: not at all 4. Feeling tired or having little energy: not at all 5. Poor appetite or overeating: not at all 6. Feeling bad about yourself - or that you are a failure or have let yourself or your family down: not at all 7. Trouble concentrating on things, such as reading the newspaper or watching television: not at all 8. Moving or speaking so slowly that other people could have noticed. Or the opposite - being so fidgety or restless that you have been moving around a lot more than usual: not at all 9. Thoughts that you would be better off or of hurting yourself in some way: not at all Depression Screening Interpretation: Positive Depression Screening Done: Yes 74094 - PHQ-9 Billing: Yes Source: Developed by Drs. Manas Hilario, Lizabeth Wadsworth, Hernando Rodríguez and colleagues, with an educational fidelina from [employer]. Thrive Questionnaire Date Thrive assessed: 02/12/24 I am a: Patient What is your living situation today?: I have a steady place to live Within the past 12 months, did the food you bought not last and you didn't have the money to get more?: Never true Within the past 12 months, did you worry whether your food would run out before you got money to buy more?: Never true Do you have trouble paying for medicines?: I choose not to answer this question Do you have trouble getting transportation to medical appointments?: No Do you have trouble paying your heating and electricity bill?: No Do you have trouble taking care of your child, family member or friend?: No Do you have trouble with day-to-day activities such as bathing, preparing meals, shopping, managing finances, etc.?: No Are you currently unemployed and looking for a job?: No Are you interested in more education?: No Please select the resources that you would like help with: None Currently or been in a relationship where the following occur: I choose not to answer THRIVE Score: 0 AUDIT C Alcohol Use Questionnaire (AUDIT-C) Score Reviewed/Action Taken: No JASPAL-7 AMB Questionnaire JASPAL-7 Date JASPAL - 7 assessed: 01/17/25 Feeling nervous, anxious, or on edge: 0 = Not at all Not being able to stop or control worryin = Not at all Worrying too much about different things: 0 = Not at all Trouble relaxin = Not at all Being so restless that it is hard to sit still: 0 = Not at all Becoming easily annoyed or irritable: 0 = Not at all Feeling afraid as if something awful might happen: 0 = Not at all Total JASPAL-7 score (0-4 normal; 5-9 mild; 10-14 moderate; 15-21 severe): 0 Source: Developed by Drs. Manas Hilario, Lizabeth Wadsworth, Hernando Rodríguez and colleagues, with an educational fidelina from [employer]. JASPAL-7 Assessment Billing JASPAL-7 Assessment Tool: JASPAL-7 Assessment 02051 Physical exam (Primary Care) Vital Signs: Last Vital Signs Pulse 69 01/17/25 08:05 Resp 16 01/17/25 08:05 BP 138/84 01/17/25 08:05 Pulse Ox 99 01/17/25 08:05 Oxygen Delivery Method Room Air 01/17/25 08:05 BMI result Body Mass Index 35.1 Tobacco/Smoking Status: Tobacco use Status Tobacco use date assessed 01/17/25 01/17/25 08:26 Patient Tobacco Use Status Former Tobacco user 01/17/25 08:06 Tobacco use type Cigarette 01/17/25 08:06 e-Cigarette/Vaping Use Never Used 01/17/25 08:06 Depression Screening Interpretation: Positive Thrive Assessment: Date of Thrive Assessment Date Thrive assessed 02/12/24 01/17/25 08:06 Currently or been in a relationship where the following occur: I choose not to answer Coding Level of Care Code Est Pt Prev Care >65y(59563) Diagnoses Pre-op evaluation Z01.818 Additional Codes JASPAL-7 Assessment Billing - JASPAL-7 Assessment Tool: JASPAL-7 Assessment 72942 ([id number]) PHQ-9 - 95474 - PHQ-9 Billing: Yes ([id number]) Assessment & Plan Assessment & Plan (1) Pre-op evaluation: Code(s): Z01.818 - Encounter for other preprocedural examination Category: Medical Plan . Orders: Orders Prothrombin Time INR Today Z01.818 - Encounter for other preprocedural examination AMB EKG-In Office Today Z01.818 - Encounter for other preprocedural examination Complete Blood Count Auto Diff Today Z01.818 - Encounter for other preprocedural examination Comprehensive Met. Panel Today Z01.818 - Encounter for other preprocedural examination Partial Thromboplastin Time Today Z01.818 - Encounter for other preprocedural examination
[2025-01-17 08:05] VITALS: BP 138/84; PULSE 69; RESP 16; O2SAT 99; BMI 35.1
== END 2025-01-17 08:44 | disposition home or self-care (01) ==
LOC: HO.HMCC 07:49
PROVIDERS: PCP Nurse Practitioner Family; Visit Provider Nurse Practitioner Family
DX: Z01.818 Encounter for other preprocedural examination (principal)

== ENCOUNTER 2025-01-17 07:48 | Outpatient (REF) | payer MEDICARE, OTHER, SELFPAY ==
[2025-01-17 10:19] LABS: MANUAL DIFF FLAG NO
[2025-01-17 10:29] LABS: Hematocrit 39.7 % (37.0-47.0); Hemoglobin 13.0 g/dl (12.0-16.0); Imm Gran Abs Auto 0.02 X10*3/uL (0.00-0.03); Imm Gran Pct Auto 0.2 % (0.0-0.4); Lymphocytes Absolute Auto 1.7 X10*3/uL (1.2-4.9); Mean Corpuscular HGB Conc 32.7 g/dl (31.0-35.0); Mean Corpuscular Hemoglobin 28.6 pg (27.0-33.0); Mean Corpuscular Volume 87.3 fL (80.0-98.0); NRBC Abs Auto 0.000 X10*3/uL (0.0-0.012); NRBC Pct Auto 0.0 /100WBC (0.0-0.2); Platelet Count 316 X10*3/uL (160-400); Red Blood Count 4.55 X10*6/uL (4.20-5.50); White Blood Count 8.6 X10*3/uL (4.8-10.8)
[2025-01-17 10:38] LABS: INTERNATIONAL NORM RATIO 1.0 (0.9-1.1); Prothrombin Time 12.3 SEC (11.2-13.5)
[2025-01-17 10:41] LABS: Partial Thromboplastin Time 28.6 SEC (26.7-34.1)
[2025-01-17 11:04] LABS: Alanine Aminotransferase 11 U/L (0-31); Albumin Level 4.4 g/dL (3.5-5.0); Alkaline Phosphatase 78 U/L (39-117); Anion Gap 10 (12-20); Aspartate Amino Transferase 20 U/L (5-31); Blood Urea Nitrogen 18 mg/dL (9-16); Calcium 9.1 mg/dL (8.4-10.2); Carbon Dioxide 29 mmol/L (22-29); Chloride 105 mmol/L (96-108); Estimated Glomerular Filt Rate 57; Potassium 3.9 mmol/L (3.3-5.1); Sodium 140 mmol/L (135-145); Total Protein 7.2 g/dL (6.5-8.0)
[2025-01-20 08:59] LABS: Immunoglobulin A 259 mg/dL (70-320)
== END 2025-01-17 07:49 | disposition home or self-care (01) ==
LOC: HO.HMGCLDS 07:48
PROVIDERS: Absent Provider Internal Medicine Endocrinology, Diabetes & Metabolism; PCP Nurse Practitioner Family; Visit Provider Nurse Practitioner Family
DX: Z01.818 Encounter for other preprocedural examination (principal); M81.0 Age-related osteoporosis without current pathological fracture; Z13.31 Encounter for screening for depression; Z13.39 Encounter for screening examination for other mental health and behavioral disorders
CPT/HCPCS: 36415; 80053; 82784; 85025; 85610; 85730; 86364; 96127; 99212

== ENCOUNTER 2025-01-19 13:33 | Outpatient (AMB) | payer MEDICARE, SELFPAY ==
--- NOTE | 2025-01-19 13:53 | A.SPINEOV_ITS ---
Intake Visit Reasons: second opinion Intake Note: Ms. Holman is here today for a Second Opinion. 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 Allergies dexlansoprazole (From DEXILANT) Allergy (Severe, Verified 01/19/25 13:54) dizziness, change in HR risedronate sodium (From ACTONEL) Allergy (Severe, Verified 01/19/25 13:54) chest discomfort Bdmcjwv-OOO-XcC Reductase Inhibitor (NEAQMKM-JUR-OLP REDUCTASE INHIBITOR) Allergy (Severe, Verified 01/19/25 13:54) JOINT PAIN tramadol (TRAMADOL) Allergy (Severe, Verified 01/19/25 13:54) THROAT TIGHTNESS amlodipine (AMLODIPINE) Allergy (Intermediate, Verified 01/19/25 13:54) PALIPITATIONS Atrovent Allergy (Intermediate, Verified 01/19/25 13:54) Cough baclofen (BACLOFEN) Allergy (Intermediate, Verified 01/19/25 13:54) LETHARGY Beta-Blockers (Beta-Adrenergic Bloc Allergy (Intermediate, Verified 01/19/25 13:54) BRADYCARDIA budesonide (From SYMBICORT) Allergy (Intermediate, Verified 01/19/25 13:54) HOARSENESS Chocolate Allergy (Intermediate, Verified 01/19/25 13:54) GERD ezetimibe (From ZETIA) Allergy (Intermediate, Verified 01/19/25 13:54) JOINT PAIN, ELEVATED CPK fluticasone (From ADVAIR DISKUS) Allergy (Intermediate, Verified 01/19/25 13:54) HTN glucosamine Allergy (Intermediate, Verified 01/19/25 13:54) LE edema ibandronate sodium (From BONIVA) Allergy (Intermediate, Verified 01/19/25 13:54) CHEST PAIN latex (LATEX) Allergy (Intermediate, Verified 01/19/25 13:54) RASH-SENSITIVITY lisinopril (LISINOPRIL) Allergy (Intermediate, Verified 01/19/25 13:54) COUGH, really bad cough meloxicam (From MOBIC) Allergy (Intermediate, Verified 01/19/25 13:54) GI UPSET mometasone furoate (From DULERA) Allergy (Intermediate, Verified 01/19/25 13:54) COUGH niacin Allergy (Intermediate, Verified 01/19/25 13:54) Flushing Penicillins (PENICILLINS) Allergy (Intermediate, Verified 01/19/25 13:54) RASH pregabalin (From LYRICA) Allergy (Intermediate, Verified 01/19/25 13:54) GERD flare up raloxifene (From EVISTA) Allergy (Intermediate, Verified 01/19/25 13:54) GERD rofecoxib (From Vioxx) Allergy (Intermediate, Verified 01/19/25 13:54) ankle swelling salmeterol (From ADVAIR DISKUS) Allergy (Intermediate, Verified 01/19/25 13:54) HTN scallops (SCALLOPS) Allergy (Intermediate, Verified 01/19/25 13:54) NAUSEA & VOMITING sertraline (From ZOLOFT) Allergy (Intermediate, Verified 01/19/25 13:54) SKIN CRAWLING spironolactone (SPIRONOLACTONE) Allergy (Intermediate, Verified 01/19/25 13:54) RASH, ?? psoriasis strawberry (STRAWBERRY) Allergy (Intermediate, Verified 01/19/25 13:54) ITCHING tiotropium (From SPIRIVA WITH HANDIHALER) Allergy (Intermediate, Verified 01/19/25 13:54) RAW THROAT, pharyngitis verapamil (VERAPAMIL) Allergy (Intermediate, Verified 01/19/25 13:54) IRREGULAR HEARTBEAT esomeprazole (Nexium) Allergy (Mild, Verified 01/19/25 13:54) did not resolve GERD naproxen (From ALEVE) Allergy (Mild, Verified 01/19/25 13:54) FLUSH omeprazole Allergy (Mild, Verified 01/19/25 13:54) did not resolve GERD tacrolimus Allergy (Mild, Verified 01/19/25 13:54) Rash adhesive (ADHESIVE) Allergy (Unknown, Verified 01/19/25 13:54) RASH doxycycline (DOXYCYCLINE) Allergy (Unknown, Verified 01/19/25 13:54) SEVERE NOYOLA, HEARTBURN, joint pain gabapentin (From NEURONTIN) Allergy (Unknown, Verified 01/19/25 13:54) leg swelling, SOB metoclopramide (From REGLAN) Allergy (Unknown, Verified 01/19/25 13:54) LETHARGY monosodium glutamate (MSG) Allergy (Unknown, Verified 01/19/25 13:54) HEADACHE, increased HR lifitegrast (From Xiidra) Allergy (Verified 01/19/25 13:54) blurred vision, headache, eye swelling metoprolol Adverse Reaction (Severe, Verified 01/19/25 13:54) Severe bradycardia alendronate sodium (From Fosamax) Adverse Reaction (Intermediate, Verified 01/19/25 13:54) Joint Pain amitriptyline Adverse Reaction (Intermediate, Verified 01/19/25 13:54) Agitated cyclosporine (From Cequa) Adverse Reaction (Intermediate, Verified 01/19/25 13:54) Eye Swelling fluticasone furoate (From Trelegy Ellipta) Adverse Reaction (Intermediate, Verified 01/19/25 13:54) asthma exacerbation perfluorohexyloctane (From Miebo) Adverse Reaction (Intermediate, Verified 01/19/25 13:54) Eye Swelling tobramycin (From Tobrex) Adverse Reaction (Intermediate, Verified 01/19/25 13:54) Eye Swelling umeclidinium (From Trelegy Ellipta) Adverse Reaction (Intermediate, Verified 01/19/25 13:54) asthma exacerbation vilanterol (From Trelegy Ellipta) Adverse Reaction (Intermediate, Verified 01/19/25 13:54) asthma exacerbation azelastine Adverse Reaction (Mild, Verified 01/19/25 13:54) Gastrointestinal Upset hi Adverse Reaction (Intermediate, Uncoded 01/17/25 08:46) Itchy Eyes Sulindac Adverse Reaction (Intermediate, Uncoded 01/17/25 08:46) Nausea, pain Assessment & Plan Assessment & Plan (1) Cervical radiculitis: Code(s): M54.12 - Radiculopathy, cervical region Category: Medical (2) Ulnar neuropathy: Code(s): G56.20 - Lesion of ulnar nerve, unspecified upper limb Category: Medical Plan Dear colleague On 01/20/2025, I saw for 2nd opinion Adali Holman with a chief complaint of neck pain. HPI: This 74-year-old female is status post anterior diskectomy and fusion C5-6 and C6-7 followed by C4-C5 in 2022 performed in another institution. Despite surgeries she still complains of ongoing severe right arm pain that radiates from the neck to the shoulder blade into the right arm. Her clinical scenario is complicated by a ulnar nerve compression with a preacher hand on the right side. She was told that there maybe a nonfusion at C4-C5 by her neurosurgeon and she is currently using a bone stimulator. Her main symptoms are headaches and right neck and shoulder blade pain. Her neurosurgeon told her that the symptoms are not coming from the neck. She had multiple injection done from our pain management team that were not successful. She comes in for 2nd opinion. Physical Exam: Spurling test positive with radiating pain down her right shoulder blade into her arm. Preacher hand on the right side. Tinel positive over the ulnar nerve. Radiological Studies: MRI done at [facility] on 06/14/2024 shows status post C4-C7 anterior diskectomy and fusion. No residual foraminal stenosis. However there was moderate right C4 foraminal stenosis. Impression/Plan: Patient is suffering from cervical radiculopathy, possibly related to the ongoing C4 foraminal stenosis. Secondly, she suffering from a right ulnar nerve compression for which a decompression is scheduled. The returning headaches neck pain could be related to the nonfusion, however in a patient with osteoporosis, I do not think a revision surgery would be beneficial in this patient. I told her that a C4 foraminotomy could be helpful for her ongoing right arm pain. She will revisit me after the ulnar nerve his decompressed and the neck symptoms are persistent. Thank you for allowing me to participate in your patients care. total time spent was 50 minutes in counseling ,coordination of plan, personal review of imaging, surgical decision making and subsequent plan Drew Leger MD, PhD Spine Fellowship Trained Neurosurgeon Director, [facility] Coding Level of Care Code New Pt Level 4 (98336) Diagnoses Cervical radiculitis M54.12 Ulnar neuropathy G56.20
--- OUTSIDE RECORDS SUMMARY | 2025-01-19 20:58 | XMS_ITS | Patient Health Record ---
Author Organization [facility] Address [address] [place] [address] Care Team Providers Care Childcare Teacher Name Role Phone Augustine Carrera M.D. 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81) Active confirmed Problem Epigastric pain (38177023) Abdominal discomfort, epigastric (789.06) Active confirmed Problem Gas (11226029) Gas (787.3) Active confirmed Plan Of Treatment Future Test Test Name Order Date UPPER GI ENDOSCOPY 08/15/2011 Insurance Providers Payer Name Payer Address Payer Phone Subscriber Number Group Number Insured Name Patient Relationship to Insured Coverage Start Date Coverage End Date MEDICARE OF [place] [address] [place] [address] [phone] [id number] JORGITO ALCANTARA Self - patient is the insured MEDICAID OF [facility] [address] [place] [phone] [id number] JORGITO ALCANTARA Self - patient is the insured Medical (General) History Medical History History ICD Code screening colonoscopy 07-23-2006--neg. fo r polyps EGD 06-11-1999 and 02/17 negative for signi ficant esophagitis nor ulcer disease GERD hx of duodenal ulcer in the 1969's Denies [place],DM,CVA,renal disease irregular heart beat elevated chloresterol hypertension osteoporosis Hiatal hernia Denies [place],DM,CVA,renal disease Mild asthma Anxiety Negative cardiac catheterization [...]
--- OUTSIDE RECORDS SUMMARY | 2025-01-19 20:58 | XMS_ITS | Data Portability ---
Author Organization [place] - [facility], Allergy Address [address] [address] Care Team Providers Care Network Engineer Administrator Name Role Phone BEBE VELASCO Primary Care Provider [phone] Assessment Encounter Date Assessment Date Assessment LastModified [...] Address Organization Details Recorded Time Bilateral tinnitus 09566396014 02 Active 2018 Tinnitus, bilateral ; Note: Date Diagnosed : 09/16/2018 9:36 AM (H93.13) Not Available [facility] 4 03:05:03 Sensorine ural hearing loss of bilateral ears 712348098 Active 2018 Sensorine ural hearing loss, bilateral ; Note: Date Diagnosed : 09/16/2018 9:36 AM (H90.3) Not Available [facility] 4 03:05:03 Migraine with aura 6658370 Active 2018 Migraine with aura, not intractab le, without status migrainos us; Note: Date Diagnosed : 09/16/2018 9:50 AM (G43.109) Not Available [facility] 4 03:05:05 Dizziness and giddiness 331770406 Active 2018 Dizziness and giddiness ; Note: Date Diagnosed : 09/16/2018 9:36 AM (R42) Not Available [facility] 4 03:05:03 Gastroeso phageal reflux disease without esophagit is 474540319 Active 2018 Gastro-es ophageal reflux disease without esophagit is; Note: Date Diagnosed : 09/16/2018 9:57 AM (K21.9) Not Available [facility] 4 03:05:03 Headache 56561953 Active 2018 Facial pain NOS; Note: Date Diagnosed : 09/16/2018 9:50 AM (R51) Not Available [facility] 4 03:05:02 Recurrent acute sinusitis 518932981 Active 2024 HARPREET HALEY MD [address] [place] [address], [place], [address] , [place] - [facility] 5 16:29:55 Allergic rhinitis 06921190 Active 2024 HARPREET HALEY MD [address] [place] [address],[place] [address], [place], [address] , [place] - [facility] 5 16:30:02 Problem Notes None recorded. Procedures Surgical History Date Name Laterality Status Provider Name and Address Organization Details Recorded Time 03/12/2024 Comp Audio with Tymps - 51217 & 42047 completed ADALI ASKEW [place], CCC-A [address] [place] [address], [address], [facility] 03/12/2024 16:00:59 03/12/2024 NasalEndosc opy_DP completed HARPREET HALEY MD [address] [place] [address], [address], [facility] 03/12/2024 16:29:37 Imaging Results None recorded. Procedure Notes None recorded. Medical Equipment None Reported. Allergies Allergen ID Allergen Name Allergen Category Reaction Reaction Severity Criticality Documentation Date Start Date Code Code System Note Provider Name and Address Organization Details Recorded Time 905098 tacrolimu s medicatio n Not available Not available Not available 03/12/2024 86631 RxNorm Zoraida Potvin null, [place] - [facility] 15:11:51 436554 Nexletol medicatio n Not available Not available Not available 03/12/2024 73782 09 RxNorm Zoraida Potvin [place], [place] [facility] 15:12:16 744690 Miebo medicatio n Not available Not available Not available 03/12/2024 16533 52 RxNorm Zoraida Potvin [place], [place] - [facility] 15:12:27 022722 sulindac medicatio n Not available Not available Not available 03/12/2024 36690 RxNorm Zoraida Potvin null, [place] - [facility] 15:12:36 751972 Fosamax medicatio n Not available Not available Not available 03/12/2024 22935 5 RxNorm Zoraida Potvin null, [place] - [facility] 15:12:46 505373 latex environme nt,medica tion Not available Not available Not available 03/12/2024 53103 91 RxNorm Zoraida Potvin null, [place] - [facility] 15:13:27 015709 Dexilant medicatio n Not available Not available Not available 03/12/2024 05917 1 RxNorm Zoraida Marsh [place] abdul - [facility] 5 15:13:54 608779 doxycycli ne Not available Not available Not available Not available 03/12/2024 3640 RxNorm Zoraida Marsh franko [place] - [facility] 5 15:14:23 Medications Name Sig Start Date [...] Status Former Smoker HARPREET HALEY MD [address] [place] [address],[place] [address], [place], [address], [facility] - [facility] 03/12/2024 09:06:30 How Much Tobacco Do You [...] Disorder N Anesthesia Complications N Heart Attack ([place]) N Other Skin Condition N Diabetes N [...] ICD10 Code Diagnosis IMO Codes Diagnosis Note [id number] HARPREET HALEY MD [facility] of [address] [address] 03/12/2024 14:19:20 03/12/2024 16:35:50 Sensorineural hearing loss of bilateral ears 995128424 H90.3 Audiologic al evaluation results: Right ear: Normal/ borderline normal hearing thru 1500Hz, sloping to a mild to severe SNHL with excellent word recognitio n. Left ear: Normal hearing thru 3000Hz dropping to a mild to severe SNHL with excellent word recognitio n. Tympanomet ry: Right Ear:Type A Left Ear:Type A Recurrent acute sinusitis 844035880 J01.91 Allergic rhinitis 329814 04 J30.9 Health Concerns Section Related Observation LastModified by Organization Detai ls LastModified Time None Recorded Concern Status LastModified by Organization Details LastModified Time None Recorded Advance Directives Directive None Recorded Payers Insurance Date Sequence Insurance Name Policy Number Policy Gill Covered Member ID Gill Member ID Guarantor Name 03/12/2024 1 [employer] (MEDICARE SUPPLEMENT) Adali I Houde [id number] Adali I Houde 03/12/2024 1 [place] [facility] Adali I Houde [id number] Adali I Houde 03/12/2024 1 [employer] Adali I Houde [id number] Adali I Houde 05/26/2024 1 [facility] - MEDICARE PREFERRED (MEDICARE REPLACEMENT HMO) [employer] Adali I Houde [id number] Adali I Houde 05/26/[address] [place] [address] (MEDICARE REPLACEMENT/A DVANTAGE - PPO) [id number] Adali Holman [id number] Adali Holman Notes Date Note Type Note [...] her sinus congestion symptoms HARPREET HALEY MD [address] [place] [address], [address], [facility] - [facility] 03/12/2024 16:35:50 OBGyn Episode No OBEpisode recorded.
--- OUTSIDE RECORDS SUMMARY | 2025-01-19 20:58 | XMS_ITS | Clinical Summary ---
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 Gait is steady. Review [...] hand and has an appointment to see [place] [facility] on July 14. She is welcome to see us in the future if there are any new concerns. Assessment & Plan (12/22/2024 9:13 AM EST): I reviewed the x-ray report with Ms. Hloman noting the foraminal stenosis in the upper [...] using it. C-spine MRI done yesterday at [facility] does not show any significant central [...] intact. X-rays of the cervical spine from [facility] dated 2024 show good position of her C4-5 and C5-C6-C7 plates but there does not appear to be robust bone growth across the disc spaces. I will discuss with Dr. Rodriguez and likely order a bone growth stimulator. Meantime, she is going to get in contact with [place] pain management. We talked about acupuncture and [...] Department Care Team Description 12/23/2024 Telephone Neurosurgery [address] [address] Gabby Rodriguez MD 12/17/2024 11:45 AM EST Office Visit [address] [address] Gabby Rodriguez MD Cervical spondylosis [...] XRAY REPORT Routine 12/06/2024 12:46 PM EDT [facility] DEXA AXIAL SKELETON Routine 02/02/2018 9:04 AM EST Encounter for screening for osteoporosis [facility] SCREENING DIGITAL Routine 02/02/2018 8:35 AM EST Encounter for screening mammogram for malignant neoplasm of breast from Last 3 Months or Most Recently Relevant to Health Maintenance Results * External Xray Report (12/06/2024 12:46 PM EDT) Anatomical Region Laterality Modality Radiographic Elissa ging us Historical Provider MD CODY XR PROCEDURES Final R esult * [facility] DEXA AXIAL SKELETON (02/02/2018 9:04 AM EST) Anatomical Region Laterality Modality Mammography 02/02/2018 7:11 AM EST Narrative 02/02/2018 9:04 AM EST [facility] Diagnostic Imaging Department [address] [place] [address] Patient: ADALI HOLMAN Hari /Age/Sex: 1950 - 67 - F Unit#: [id number] [facility] Ordering Physician: KATERINA TOLBERT MD [facility] Dexa Axial Skeleton - 02/02/18748 HISTORY: [...] probability of hip fracture of 11.3%. Code 66403 Dictating Physician: GALINA KUO MD Electronically Signed by: GALINA KUO MD Dic Date/Time: 02/02/18901 Sign date/Time: 02/02/18903 Procedure Note Galina Kuo MD - 01/29/2022 [facility] Diagnostic Imaging Department [address] [place] [address] Patient: ADALI HOLMAN I /Age/Sex: 1950 - 67 - F Unit#: [id number] Location/Status: [facility] Mnemonic[facility] Ordering Physician: KATERINA TOLBERT MD [facility] Dexa [...] density of the femurs bilaterally is 0.707 gm/ft4aoqwr is 70% of that of young normals [...] probability of hip fracture of 11.3%. Code 15507 Dictating Physician: GALINA KUO MD Electronically Signed by: GALINA KUO MD Dic Date/Time: 02/02/18901 Sign date/Time: 02/02/18903 us Katerina Tolbert MD IMG BI PROCEDURES Final Re sult * [facility] SCREENING DIGITAL (02/02/2018 8:35 AM EST) Anatomical Region Laterality Modality Mammography 02/02/2018 7:10 AM EST Narrative 02/02/2018 8:35 AM EST [facility] Diagnostic Imaging Department [address] [place] [address] Patient: ADALI HOLMAN I /Age/Sex: 1950 - 67 - F Unit#: [id number] Location/Status: [facility]/REG CLI Mnemonic/Ordering Site: [facility] Ordering Physician: JEANETTE CARRERA MD [facility] Screening Digital - 02/02/18 - 49 INDICATION: SCREENING COMPARISON: [facility] mammograms dating back to 01/12/2013 FINDINGS: CC and MLO views of the breasts were obtained, using full field digital mammography with 3D tomosynthesis views in the MLO projection. Computer aided detection with the [employer] 7.2-H was employed. Benign bilateral breast biopsies [...] a target date for the next mammogram. ([id number] / 08861) , 80043 Dictating Physician: TONI SHRESTHA MD Electronically Signed by: TONI SHRESTHA MD Dic Date/Time: 02/02/18829 Sign date/Time: 02/02/18834 Procedure Note Toni Shrestha MD - 01/29/2022 [facility] Diagnostic Imaging Department [address] [place] [address] Patient: ADALI HOLMAN I /Age/Sex: 1950 - 67 - F Unit#: [id number] Location/Status: [facility]/REG CLI Mnemonic/Ordering Site: [facility] Ordering Physician: JEANETTE CARRERA MD [facility] Screening Digital - 02/02/18 - 0749 INDICATION: SCREENING COMPARISON: [facility] mammograms dating back to 01/12/2013 FINDINGS: CC and MLO views of the breasts were obtained, using full field digital mammography with 3D tomosynthesis views in the MLO projection. Computeraided detection with the [employer] 7.2-H was employed. Benign bilateral breast biopsies [...] a target date for the next mammogram. [id number] / 97006) , 37602 Dictating Physician: TONI SHRESTHA MD Electronically Signed by: TONI SHRESTHA MD Dic Date/Time: 02/02/18 0830 Sign date/Time: 02/02/18 0835 Jeanette Carrera MD IMG BI PROCEDURES Final Resu lt from Last 3 Months or Most Recently Relevant to Health Maintenance Insurance [employer] [place] MED[employer] ADVANTAGE Advance Directives Documents on File Type Date Recorded Patient Credit Counselor Expl anation Health Care Decision (hx) [...] (hx) 07/18/2009 AD HERNANDEZ DIRECTIVE Care Teams Food Processing Scientist Relationship Specialty Start Date End Date Sachin Linares NP [address] [place], [place] PCP - General 05/31/22
--- OUTSIDE RECORDS SUMMARY | 2025-01-19 20:59 | XMS_ITS | Patient Health Record ---
Author Organization [facility] Address [address] [place] [address] Care Team Providers Care Miter Cutter Name Role Phone BEBE VELASCO M.D Primary Care Provider LIZANDRO Bean Unavailable [phone] Allergies Allergen (clinical drug ingredient) Drug/Non Drug Allergy documented on EMR Reaction Allergy Type Onset Date Status 12 Hour Nasal [place] Unknown Drug Allergy Active risedronate Actonel Unknown [...] Status Risk Notes Problem Postmenopausal atrophic vaginitis (04033628) Postmenopausal atrophic vaginitis (N95.2) Active confirmed Problem Age-related osteoporosis (273240216) Age-related osteoporosis without current pathological fracture (M81.0) Active confirmed Problem Essential hypertension (40362786) Essential (primary) hypertension (I10) Active confirmed Problem Hyperlipidemia (67109572) Hyperlipidemia, unspecified (E78.5) Active confirmed Problem Uncomplicated asthma (disorder) (994351140) Unspecified asthma, uncomplicated (J45.909) Active confirmed Problem Gastro-esophageal reflux disease without esophagitis (047286772) Gastro-esophageal reflux disease without esophagitis (K21.9) Active confirmed Plan Of Treatment No Information Insurance Providers Payer Name Payer Address Payer Phone Subscriber Number Group Number Insured Name Patient Relationship to Insured Coverage Start Date Coverage End Date MEDICARE [address] [facility] [place] [id number] LAURENT JORGITO Self - patient is the [...]
== END 2025-01-19 15:24 | disposition home or self-care (01) ==
LOC: HO.HNS 13:34
PROVIDERS: PCP Nurse Practitioner Family; Referring Provider Orthopaedic Surgery; Visit Provider Neurological Surgery
DX: M54.12 Radiculopathy, cervical region (principal); G56.20 Lesion of ulnar nerve, unspecified upper limb
CPT/HCPCS: 99204

== ENCOUNTER → 2025-01-19 13:33 | Outpatient (BNVA) | payer MEDICARE, OTHER, SELFPAY | PROVIDERS: PCP Nurse Practitioner Family; Referring Provider Orthopaedic Surgery; Visit Provider Neurological Surgery | DX: G56.21 Lesion of ulnar nerve, right upper limb (principal) | CPT/HCPCS: 99202 ==

== ENCOUNTER 2025-02-09 08:21 | Outpatient (AMB) | payer MEDICARE, OTHER, SELFPAY ==
--- OUTSIDE RECORDS SUMMARY | 2025-02-09 08:26 | XMS_ITS | Clinical Summary ---
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 Gait is steady. Review [...] hand and has an appointment to see [place] [facility] on July 14. She is welcome [...] using it. C-spine MRI done yesterday at [facility] does not show any significant central [...] intact. X-rays of the cervical spine from [facility] dated 2024 show good position of her C4-5 and C5-C6-C7 plates but there does not appear to be robust bone growth across the disc spaces. I will discuss with Dr. Rodriguez and likely order a bone growth stimulator. Meantime, she is going to get in contact with [place] pain management. We talked about acupuncture and [...] Department Care Team Description 12/23/2024 Telephone Neurosurgery [address] [address] Gabby Rodriguez MD 12/17/2024 11:45 AM EST Office Visit [address] [address] Gabby Rodriguez MD Cervical spondylosis [...] Done Comments Colorectal Cancer Screening: Colonoscopy 1950 Drug Screen 1950 Non-Opioid Controlled Substance Agreement 1950 Zoster Vaccines (1 of 2) 1968 [...] XRAY REPORT Routine 12/06/2024 12:46 PM EDT [facility] DEXA AXIAL SKELETON Routine 02/02/2018 9:04 AM EST Encounter for screening for osteoporosis [facility] SCREENING DIGITAL Routine 02/02/2018 8:35 AM EST Encounter for screening mammogram for malignant neoplasm of breast from Last 3 Months or Most Recently Relevant to Health Maintenance Results * External Xray Report (12/06/2024 12:46 PM EDT) Anatomical Region Laterality Modality Radiographic Elissa ging us Historical Provider MD CODY XR PROCEDURES Final R esult * [facility] DEXA AXIAL SKELETON (02/02/2018 9:04 AM EST) Anatomical Region Laterality Modality Mammography 02/02/2018 7:11 AM EST Narrative 02/02/2018 9:04 AM EST [facility] Diagnostic Imaging Department [address] [place] [address] Patient: ADALI HOLMAN I /Age/Sex: 1950 - Unit#: [id number] Location/Status: SPDIMA/REG CLI [facility]emonic[facility] Ordering Physician: KATERINA TOLBERT MD [facility] Dexa Axial Skeleton - 02/02/18748 HISTORY: The [...] probability of hip fracture of 11.3%. Code 50972 Dictating Physician: GALINA KUO MD Electronically Signed by: GALINA KUO MD Dic Date/Time: 02/02/18901 Sign date/Time: 02/02/18903 Procedure Note Galina Kuo MD - 01/29/2022 [facility] Diagnostic Imaging Department [address] [place] [address] Patient: ADALI HOLMAN Hari /Age/Sex: 1950 - 67 - F Unit#: [id number] Location/Status: [facility] Mnemonic[facility]ing [facility] Ordering Physician: KATERINA TOLBERT MD [facility] Dexa Axial Skeleton - 02/02/18 - 0749 HISTORY: The patient is a 67-year-old [...] density of the femurs bilaterally is 0.707 gm/yo6xtjas is 70% of that of young normals [...] probability of hip fracture of 11.3%. Code 01822 Dictating Physician: GALINA KUO MD Electronically Signed by: GALINA KUO MD Dic Date/Time: 02/02/18901 Sign date/Time: 02/02/18903 us Katerina Tolbert MD IMG BI PROCEDURES Final Re sult * [facility] SCREENING DIGITAL (02/02/2018 8:35 AM EST) Anatomical Region Laterality Modality Mammography 02/02/2018 7:10 AM EST Narrative 02/02/2018 8:35 AM EST [facility] Diagnostic Imaging Department [address] [place] [address] Patient: ADALI HOLMAN I /Age/Sex: 1950 - 67 - F Unit#: [id number] Location/Status: SPDIMAM/REG CLI Mnemonic/Ordering Site: [facility] Ordering Physician: JEANETTE CARRERA MD [facility] Screening Digital - 02/02/18748 INDICATION: SCREENING COMPARISON: [facility] mammograms dating back to 01/12/2013 FINDINGS: CC and MLO views of the breasts were obtained, using full field digital mammography with 3D tomosynthesis views in the MLO projection. Computer aided detection with the [employer] 7.2-H was employed. Benign bilateral breast biopsies [...] a target date for the next mammogram. ([id number] / [id number]) , 71481 Dictating Physician: TONI SHRESTHA MD Electronically Signed by: TONI SHRESTHA MD Dic Date/Time: 02/02/18829 Sign date/Time: 02/02/18834 Procedure Note Toni Shrestha MD - 01/29/2022 [facility] Diagnostic Imaging Department [address] [place] [address] Patient: ADALI HOLMAN Hari /Age/Sex: 1950 67 - F Unit#: [id number] Location/Status: SPDIMAM/REG CLI Mnemonic/Ordering Site: [facility] Ordering Physician: JEANETTE CARRERA MD [facility] Screening Digital - 02/02/18 - 0749 INDICATION: SCREENING COMPARISON: [facility] mammograms dating back to 01/12/2013 FINDINGS: CC and MLO views of the breasts were obtained, using full field digital mammography with 3D tomosynthesis views in the MLO projection. Computeraided detection with the [employer] 7.2-H was employed. Benign bilateral breast biopsies [...] a target date for the next mammogram. ([id number] / [id number]) , 94259 Dictating Physician: TONI SHRESTHA MD Electronically Signed by: TONI SHRESTHA MD Dic Date/Time: 02/02/18829 Sign date/Time: 02/02/1835 Jeanette Carrera MD IMG BI PROCEDURES Final Resu lt from Last 3 Months or Most Recently Relevant to Health Maintenance Insurance [employer] [place] [place]VANT[place] Advance Directives Documents on File Type Date Recorded Patient Curriculum Assistant Principal Expl anation Health Care Decision (hx) 07/02/2022 [...] (hx) 07/18/2009 AD HERNANDEZ DIRECTIVE Care Teams Hub Lead Relationship Specialty Start Date End Date Sachin Linares NP [address] [place], [place] PCP - General 05/31/22
--- OUTSIDE RECORDS SUMMARY | 2025-02-09 08:26 | XMS_ITS | Patient Health Record ---
Author Organization [facility] Address [address] [place] [address] Care Team Providers Care Conductor Sleeping Car Name Role Phone BEBE VELASCO M.D Primary Care Provider LIZANDRO Bean Unavailable [phone] Allergies Allergen (clinical drug ingredient) Drug/Non Drug Allergy documented on EMR Reaction Allergy Type Onset Date Status 12 Hour Nasal Hull Unknown Drug Allergy Active risedronate Actonel Unknown [...] Status Risk Notes Problem Postmenopausal atrophic vaginitis (44009912) Postmenopausal atrophic vaginitis (N95.2) Active confirmed Problem Age-related osteoporosis (418718273) Age-related osteoporosis without current pathological fracture (M81.0) Active confirmed Problem Essential hypertension (08918913) Essential (primary) hypertension (I10) Active confirmed Problem Hyperlipidemia (21046894) Hyperlipidemia, unspecified (E78.5) Active confirmed Problem Uncomplicated asthma (disorder) (429162269) Unspecified asthma, uncomplicated (J45.909) Active confirmed Problem Gastro-esophageal reflux disease without esophagitis (865707870) Gastro-esophageal reflux disease without esophagitis (K21.9) Active confirmed Plan Of Treatment No Information Insurance Providers Payer Name Payer Address Payer Phone Subscriber Number Group Number Insured Name Patient Relationship to Insured Coverage Start Date Coverage End Date MEDICARE [address] [facility] [place] [id number] LAURENT JORGITO Self - patient is the [...]
--- OUTSIDE RECORDS SUMMARY | 2025-02-09 08:26 | XMS_ITS | Patient Health Record ---
Author Organization [facility] Address [address] [place] [address] Care Team Providers Care Border Police Name Role Phone Augustine Carrera M.D. 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81) Active confirmed Problem Epigastric pain (24391660) Abdominal discomfort, epigastric (789.06) Active confirmed Problem Gas (38717410) Gas (787.3) Active confirmed Plan Of Treatment Future Test Test Name Order Date UPPER GI ENDOSCOPY 08/15/2011 Insurance Providers Payer Name Payer Address Payer Phone Subscriber Number Group Number Insured Name Patient Relationship to Insured Coverage Start Date Coverage End Date MEDICARE OF [place] [address] [place] [address] [id number] JORGITO ALCANTARA Self - patient is the insured [facility] [address] [place] [phone] [id number] JORGITO ALCANTARA Self - patient is the insured Medical (General) History Medical History History ICD Code screening colonoscopy 07-23-2006--neg. fo r polyps EGD 06-11-1999 and 02/17 negative for signi ficant esophagitis nor ulcer disease GERD hx of duodenal ulcer in the 1969's Denies [place],DM,CVA,renal disease irregular heart beat elevated chloresterol hypertension osteoporosis Hiatal hernia Denies [place],DM,CVA,renal disease Mild asthma Anxiety Negative cardiac catheterization [...]
--- OUTSIDE RECORDS SUMMARY | 2025-02-09 08:26 | XMS_ITS | Data Portability ---
Author Organization [place] [facility] Address [address] [address] Care Team Providers Care Supervisor Vat House Name Role Phone BEBE VELASCO Primary Care [...] Address Organization Details Recorded Time Bilateral tinnitus 78175471350 02 Active 2018 Tinnitus, bilateral ; Note: Date Diagnosed : 09/16/2018 9:36 AM (H93.13) Not Available [facility] 4 03:05:03 Sensorine ural hearing loss of bilateral ears 912385738 Active 2018 Sensorine ural hearing loss, bilateral ; Note: Date Diagnosed : 09/16/2018 9:36 AM (H90.3) Not Available [facility] 4 03:05:03 Migraine with aura 9566013 Active 2018 Migraine with aura, not intractab le, without status migrainos us; Note: Date Diagnosed : 09/16/2018 9:50 AM (G43.109) Not Available [facility] 4 03:05:05 Dizziness and giddiness 794705251 Active 2018 Dizziness and giddiness ; Note: Date Diagnosed : 09/16/2018 9:36 AM (R42) Not Available [facility] 4 03:05:03 Gastroeso phageal reflux disease without esophagit is 184192695 Active 2018 Gastro-es ophageal reflux disease without esophagit is; Note: Date Diagnosed : 09/16/2018 9:57 AM (K21.9) Not Available [facility] 4 03:05:03 Headache 20629076 Active 2018 Facial pain NOS; Note: Date Diagnosed : 09/16/2018 9:50 AM (R51) Not Available [facility] 4 03:05:02 Recurrent acute sinusitis 553985773 Active 2024 HARPREET HALEY MD [address] [place] [address], [place], [phone] , [place] - [facility] 5 16:29:55 Allergic rhinitis 14836955 Active 2024 HARPRETE HALEY MD [address] [place] [address],[place] [address], [place], [address] , [place] - [facility] 5 16:30:02 Problem Notes None recorded. Procedures Surgical History Date Name Laterality Status Provider Name and Address Organization Details Recorded Time 03/12/2024 Comp Audio with Tymps - 68674 & 10583 completed ADALI ASKEW [place], CCC-A [address] [place] [address], [phone], [facility] 03/12/2024 16:00:59 03/12/2024 NasalEndosc opy_DP completed HARPREET HALEY MD [address] [place] [address], [phone], [facility] 03/12/2024 16:29:37 Imaging Results None recorded. Procedure Notes None recorded. Medical Equipment None Reported. Allergies Allergen ID Allergen Name Allergen Category Reaction Reaction Severity Criticality Documentation Date Start Date Code Code System Note Provider Name and Address Organization Details Recorded Time 724812 tacrolimu s medicatio n Not available Not available Not available 03/12/2024 46229 RxNorm Zoraida Potvin null, [place] [facility] 15:11:51 935792 Nexletol medicatio n Not available Not available Not available 03/12/2024 33700 09 RxNorm Zoraida Potvin null, [place] [facility] 15:12:16 854126 Miebo medicatio n Not available Not available Not available 03/12/2024 73924 52 RxNorm Zoraida Potvin null, [place] [facility] 15:12:27 097724 sulindac medicatio n Not available Not available Not available 03/12/2024 28528 RxNorm Zoraida Potvin null, [place] - [facility] 15:12:36 027437 Fosamax medicatio n Not available Not available Not available 03/12/2024 36677 5 RxNorm Zoraida Potvin null, [place] - [facility] 15:12:46 036615 latex environme nt,medica tion Not available Not available Not available 03/12/2024 89871 91 RxNorm Zoraida Potvin null, [place] [facility] 15:13:27 776168 Dexilant medicatio n Not available Not available Not available 03/12/2024 68093 1 RxNorm Zoraida Marsh [place] abdul - [facility] 5 15:13:54 879183 doxycycli ne Not available Not available Not available Not available 03/12/2024 3640 RxNorm Zoraida Marsh franko [place] - [facility] 5 15:14:23 Medications Name Sig Start [...] Smoking Status Former Smoker HARPREET HALEY MD [address] [place] [address],[place] [address], [place], [address], [facility] - [facility] 03/12/2024 09:06:30 How Much Tobacco Do [...] Disorder N Anesthesia Complications N Heart Attack ([place]) N Other Skin Condition N Diabetes N [...] ICD10 Code Diagnosis IMO Codes Diagnosis Note [id number] HARPREET HALEY MD [facility] [address] [address] 03/12/2024 14:19:20 03/12/2024 16:35:50 Sensorineural hearing loss of bilateral ears 663210235 H90.3 Audiologic al evaluation results: Right ear: Normal/ borderline normal hearing thru 1500Hz, sloping to a mild to severe SNHL with excellent word recognitio n. Left ear: Normal hearing thru 3000Hz dropping to a mild to severe SNHL with excellent word recognitio n. Tympanomet ry: Right Ear:Type A Left Ear:Type A Recurrent acute sinusitis 186673229 J01.91 Allergic rhinitis 837470 04 J30.9 Health Concerns Section Related Observation LastModified by Organization Detai ls LastModified Time None Recorded Concern Status LastModified by Organization Details LastModified Time None Recorded Advance Directives Directive None Recorded Payers Insurance Date Sequence Insurance Name Policy Number Policy Gill Covered Member ID Gill Member ID Guarantor Name 03/12/2024 1 [employer] (MEDICARE SUPPLEMENT) Adali I Houde [id number] Adali I Houde 03/12/2024 1 [place] [facility] Adali I Houde [id number] Adali I Houde 03/12/2024 1 [employer] Adali I Houde [id number] Adali I Houde 05/26/[address] [facility] - MEDICARE PREFERRED (MEDICARE REPLACEMENT HMO) [id number] Adali I Houde [id number] Adali I Houde 05/26/[address] [place] [address] (MEDICARE REPLACEMENT/A DVANTAGE - PPO) [id number] Adali Holman [id number] Adali Holman Notes Date Note Type Note [...] to manage her sinus congestion symptoms HARPREET AHLEY MD [address] [place] [address], [phone], [facility] - [facility] 03/12/2024 16:35:50 OBGyn Episode No OBEpisode recorded.
[2025-02-09 08:36] VITALS: BMI 31.7
--- NOTE | 2025-02-09 08:36 | A.OFFVIS_ITS ---
Vital Signs 02/09/25 08:36 Height 4 ft 11 in Weight 157 lb BMI 31.7 Intake Visit Reasons: Pre-Rt Ulnar Release at the Wrist 02/18/24 Intake Note: Adali 74 yr old - hand dominant female who presents today for her pre-op visit for her right ulnar nerve decompression at the wrist that is schedule with Dr. Cagle on 02/18/24. Constant have been signed and questions have been answered. Allergies dexlansoprazole (From DEXILANT) Allergy (Severe, Verified 02/09/25 08:37) dizziness, change in HR risedronate sodium (From ACTONEL) Allergy (Severe, Verified 02/09/25 08:37) chest discomfort Khcqvxy-[id number]-AxR Reductase Inhibitor (PFZZSHI-FAG-EEK REDUCTASE INHIBITOR) Allergy (Severe, Verified 02/09/25 08:37) JOINT PAIN tramadol (TRAMADOL) Allergy (Severe, Verified 02/09/25 08:37) THROAT TIGHTNESS amlodipine (AMLODIPINE) Allergy (Intermediate, Verified 02/09/25 08:37) PALIPITATIONS Atrovent Allergy (Intermediate, Verified 02/09/25 08:37) Cough baclofen (BACLOFEN) Allergy (Intermediate, Verified 02/09/25 08:37) LETHARGY Beta-Blockers (Beta-Adrenergic Bloc Allergy (Intermediate, Verified 02/09/25 08:37) BRADYCARDIA budesonide (From SYMBICORT) Allergy (Intermediate, Verified 02/09/25 08:37) HOARSENESS Chocolate Allergy (Intermediate, Verified 02/09/25 08:37) GERD ezetimibe (From ZETIA) Allergy (Intermediate, Verified 02/09/25 08:37) JOINT PAIN, ELEVATED CPK fluticasone (From ADVAIR DISKUS) Allergy (Intermediate, Verified 02/09/25 08:37) HTN glucosamine Allergy (Intermediate, Verified 02/09/25 08:37) LE edema ibandronate sodium (From BONIVA) Allergy (Intermediate, Verified 02/09/25 08:37) CHEST PAIN latex (LATEX) Allergy (Intermediate, Verified 02/09/25 08:37) RASH-SENSITIVITY lisinopril (LISINOPRIL) Allergy (Intermediate, Verified 02/09/25 08:37) COUGH, really bad cough meloxicam (From MOBIC) Allergy (Intermediate, Verified 02/09/25 08:37) GI UPSET mometasone furoate (From DULERA) Allergy (Intermediate, Verified 02/09/25 08:37) COUGH niacin Allergy (Intermediate, Verified 02/09/25 08:37) Flushing Penicillins (PENICILLINS) Allergy (Intermediate, Verified 02/09/25 08:37) RASH pregabalin (From LYRICA) Allergy (Intermediate, Verified 02/09/25 08:37) GERD flare up raloxifene (From EVISTA) Allergy (Intermediate, Verified 02/09/25 08:37) GERD rofecoxib (From Vioxx) Allergy (Intermediate, Verified 02/09/25 08:37) ankle swelling salmeterol (From ADVAIR DISKUS) Allergy (Intermediate, Verified 02/09/25 08:37) HTN scallops (SCALLOPS) Allergy (Intermediate, Verified 02/09/25 08:37) NAUSEA & VOMITING sertraline (From ZOLOFT) Allergy (Intermediate, Verified 02/09/25 08:37) SKIN CRAWLING spironolactone (SPIRONOLACTONE) Allergy (Intermediate, Verified 02/09/25 08:37) RASH, ?? psoriasis strawberry (STRAWBERRY) Allergy (Intermediate, Verified 02/09/25 08:37) ITCHING tiotropium (From SPIRIVA WITH HANDIHALER) Allergy (Intermediate, Verified 02/09/25 08:37) RAW THROAT, pharyngitis verapamil (VERAPAMIL) Allergy (Intermediate, Verified 02/09/25 08:37) IRREGULAR HEARTBEAT esomeprazole (Nexium) Allergy (Mild, Verified 02/09/25 08:37) did not resolve GERD naproxen (From ALEVE) Allergy (Mild, Verified 02/09/25 08:37) FLUSH omeprazole Allergy (Mild, Verified 02/09/25 08:37) did not resolve GERD tacrolimus Allergy (Mild, Verified 02/09/25 08:37) Rash adhesive (ADHESIVE) Allergy (Unknown, Verified 02/09/25 08:37) RASH doxycycline (DOXYCYCLINE) Allergy (Unknown, Verified 02/09/25 08:37) SEVERE NOYOLA, HEARTBURN, joint pain gabapentin (From NEURONTIN) Allergy (Unknown, Verified 02/09/25 08:37) leg swelling, SOB metoclopramide (From REGLAN) Allergy (Unknown, Verified 02/09/25 08:37) LETHARGY monosodium glutamate (MSG) Allergy (Unknown, Verified 02/09/25 08:37) HEADACHE, increased HR lifitegrast (From Xiidra) Allergy (Verified 02/09/25 08:37) blurred vision, headache, eye swelling metoprolol Adverse Reaction (Severe, Verified 02/09/25 08:37) Severe bradycardia alendronate sodium (From Fosamax) Adverse Reaction (Intermediate, Verified 02/09/25 08:37) Joint Pain amitriptyline Adverse Reaction (Intermediate, Verified 02/09/25 08:37) Agitated cyclosporine (From Cequa) Adverse Reaction (Intermediate, Verified 02/09/25 08:37) Eye Swelling fluticasone furoate (From Trelegy Ellipta) Adverse Reaction (Intermediate, Verified 02/09/25 08:37) asthma exacerbation perfluorohexyloctane (From Miebo) Adverse Reaction (Intermediate, Verified 02/09/25 08:37) Eye Swelling tobramycin (From Tobrex) Adverse Reaction (Intermediate, Verified 02/09/25 08:37) Eye Swelling umeclidinium (From Trelegy Ellipta) Adverse Reaction (Intermediate, Verified 02/09/25 08:37) asthma exacerbation vilanterol (From Trelegy Ellipta) Adverse Reaction (Intermediate, Verified 02/09/25 08:37) asthma exacerbation azelastine Adverse Reaction (Mild, Verified 02/09/25 08:37) Gastrointestinal Upset hi Adverse Reaction (Intermediate, Uncoded 02/09/25 08:37) Itchy Eyes Sulindac Adverse Reaction (Intermediate, Uncoded 02/09/25 08:37) Nausea, pain HPI HPI Pre-Rt Ulnar Release at the Wrist 02/18/24: Details: Adali is a 74 year old 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 woman who returns to discuss her right hand numbness, and ulnar neuropathy at the wrist. She is S/P right carpal tunnel release, DOS: 12/29/23 with good results. She says she still gets numbness and tingling in the right small and ring fingers that is intermittent but daily, but she feels this is worsening. She complains of pain in her right forearm extending from her elbow into her hand. She describes this as burning at times. Most of her pain is on the volar ulnar aspect of her wrist and into her hand. She complains of pain radiating from her neck and down into her Scapula, shoulder, and down her arm. She says she had some sort of debridement done on the medial aspect of her right elbow by Dr. Fry in ~2014. She says they were not able to find this OP note, just one from a procedure done on her right middle & ring fingers in 2021. *See my note from 08/24/24 for more information regarding her comorbidities* She has been receiving injections by Dr. Oquendo for pain management, which has not been helpful. [facility] Medical History (Updated 02/01/25 @ 08:49 by Sachin Linares, [facility]) Esophageal spasm Hx of carcinoma of bladder Bladder carcinoma History of trigger finger Cervical radiculitis Chronic sinusitis GERD (gastroesophageal reflux disease) FRANCESCA (obstructive sleep apnea) CAD (coronary artery disease) History of primary hyperparathyroidism Non-toxic multinodular goiter Osteoporosis Pulmonary nodules H/O gastroesophageal reflux (GERD) HLD (hyperlipidemia) HTN (hypertension) COPD (chronic obstructive pulmonary disease) Asthma History of aneurysm Migraine Depression PTSD (post-traumatic stress disorder) History of panic attacks Anxiety Edema History of deviated nasal septum Medial epicondylitis of left elbow Fusion of spine, cervical region Surgical History History of carpal tunnel release Hx of cystoscopy H/O cervical spine surgery Hx of hand surgery Hx of right inguinal hernia repair History of hernia repair Hx of colonoscopy History of esophagogastroduodenoscopy (EGD) (01/15/24) S/P repair of paraesophageal hernia H/O decompression of ulnar nerve Status post ablation of incompetent vein using laser History of cardiac catheterization History of eyelid surgery History of appendectomy History of parathyroidectomy History of cholecystectomy Hx of cataract surgery Hx of shoulder surgery S/P cubital tunnel release S/P arthroscopic surgery of right knee History of lumpectomy of both breasts History of hysterectomy Hx of adenoidectomy Hx of tonsillectomy Hx of eye surgery Family History Father Liver cancer Psoriasis Cancer Mental health disorder Mother Cervical cancer Ovarian cancer Heart attack Substance use disorder Social History (Updated 01/19/25 @ 14:27 by Adeline Camp RN) Household Members: None Caregiver staying overnight: No Housing: House Are you a primary career technical supervisor to a significant other at home: No Do you presently have visiting nurse or other home services: No 75 years or older and lives alone: Yes Alcohol intake: current Alcohol intake frequency: does not drink Patient Tobacco Use Status: Former Tobacco user Tobacco use type: Cigarette e-Cigarette/Vaping Use: Never Used Second Hand Smoke Exposure: No service: No Current occupational status: employed 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 Dense numbness in the ulnar nerve distribution today in clinic. Normal sensation in the ulnar & dorsal ulnar aspect of her hand & wrist. She had a Wartenberg sign, but now can actively bring the small finger into adduction against the ring finger No thenar or intrinsic wasting Good APB muscle belly firing and good finger cross Vascular: Cap refill brisk ROM: She can make a nice fist and extend all her digits No subluxation of extensor tendons with ROM She has a healed surgical scar medial elbow, from a debridement done by Dr. Fry, for suspected medial epicondylitis in ~2014. Right Hand MRI: Findings: No bone marrow edema. Severe joint space narrowing and osteophytosis of the 1st carpometacarpal joint, Degenerative. No subluxation or dislocation. The musculature is normal in signal and bulk. Normal vessels. No joint effusion. No ligamentous injury Extensor tendons are intact and normal in signal without tenosynovitis. Status post release of the flexor retinaculum without evidence of regrowth or scarring. No increase in size or signal of the median or ulnar nerves. No definitive thickening of the flexor tendon sheaths or tendons. No tenosynovitis. Impression: No increase in size or signal of the ulnar nerve. This document has been electronically signed by: Jocelyn Jara MD on 06/17/2024 Nerve Conduction Study: Right-side only IMPRESSION: 1. This is an abnormal study. 2. There is electrodiagnostic evidence for right ulnar neuropathy at the wrist 3. There is still mild prolongation of right median sensory latency, but overall improved compared to previous EMG and after surgery. 4. There is no electrodiagnostic evidence for brachial plexopathy or cervical radiculopathy. Fina Mcdonnell MD, EBONY 07/21/24 Old: IMPRESSION: 1. [id number]-hb-[id number] right ulnar neuropathy in wrist. 2. Mild right median neuropathy across carpal tunnel. Bkea Frost MD 07/29/2023 Psych Appearance: grossly normal Affect: normal affect Attitude: cooperative Assessment & Plan Assessment & Plan (1) Neuropathy of right ulnar nerve at wrist: Code(s): G56.21 - Lesion of ulnar nerve, right upper limb Category: Medical (2) CAD (coronary artery disease): Code(s): I25.10 - Atherosclerotic heart disease of [place] coronary artery without angina pectoris Category: Medical (3) CRPS (complex regional pain syndrome), type I, upper: Code(s): G90.519 - Complex regional pain syndrome I of unspecified upper limb Category: Medical (4) Failed back syndrome of cervical spine: Code(s): M96.1 - Postlaminectomy syndrome, not elsewhere classified Category: Medical Plan Assessment & Plan: 1. Right ulnar nerve compression, at the wrist -per [facility]CS from 07/21/24 & 07/29/23 -No cyst or aneurysm seen on MRI from 06/17/24 Last visit she had developed symptoms of numbness and tingling progressing from the medial aspect of the elbow down the forearm with symptoms on both the dorsal and palmar ulnar aspect of the hand. The symptoms from her medial elbow and forearm appear to have resolved. Intermittent, but daily and worsening, numbness in the ring & small fingers 2. Right dorsal ulnar-sided hand pain Most likely ECU tendinitis I educated her about this condition I discussed treatment options I recommend surgery for the ulnar-sided hand numbness, and she is in agreement I recommend she continue with at-home exercises and activity modification I explained that this surgery is not likely to improve her symptoms of pain in the dorsal ulnar aspect of her hand, and she expressed understanding FYI: She has a healed surgical scar medial elbow, from a debridement done by Dr. Fry, for suspected medial epicondylitis in ~2014. The risks and benefits of operative treatment were discussed with the patient and the patient wishes to proceed with surgery. These risks include, but are not limited to risk of damage to blood vessels, nerves, tendons, infection, recurrence, incomplete relief of preoperative symptoms, persistent pain, possible need for further surgery and the risks associated with regional blocks and anesthesia. The plan is to take the patient to the operating room sometime on 02/17/25 for the following procedures: 1. Right ulnar nerve decompression at the wrist, under general All of the preoperative paperwork including the consent was reviewed today. All the patient's questions were answered. She denies Diabetes, blood thinners, lung, kidney issues She has asthma, CAD, and a tiny aneurysm which she manages with Aspirin. She says these are all well-managed and she saw her Credit Portfolio Manager for a complete work-up in 07/2024, and says she is doing very well 3. Right carpal tunnel syndrome, S/P release DOS: 12/29/23 Pre-operative symptoms intermittent, but daily, worse at night Now with normal sensation, and significant improvement of overall hand pain Scribed for Marisol Cagle MD by Keyon Manzo, medical imaging specialist, on 02/09/25 at 9:10 AM, EST. Coding Level of Care Code Est Pt Level 4 (92279) Diagnoses Neuropathy of right ulnar nerve at wrist G56.21 CAD (coronary artery disease) I25.10 CRPS (complex regional pain syndrome), type I, upper G90.519 Failed back syndrome of cervical spine M96.1
== END 2025-02-09 09:45 | disposition home or self-care (01) ==
LOC: HO.HOS 08:22
PROVIDERS: PCP Nurse Practitioner Family; Visit Provider Orthopaedic Surgery
DX: G56.21 Lesion of ulnar nerve, right upper limb (principal); I25.10 Atherosclerotic heart disease of native coronary artery without angina pectoris; G90.519 Complex regional pain syndrome I of unspecified upper limb; M96.1 Postlaminectomy syndrome, not elsewhere classified
CPT/HCPCS: 99024

== ENCOUNTER → 2025-02-09 08:21 | Outpatient (BNVA) | payer MEDICARE, OTHER, SELFPAY | PROVIDERS: PCP Nurse Practitioner Family; Visit Provider Orthopaedic Surgery | DX: Z48.811 Encounter for surgical aftercare following surgery on the nervous system (principal); G56.21 Lesion of ulnar nerve, right upper limb; I25.10 Atherosclerotic heart disease of native coronary artery without angina pectoris; M96.1 Postlaminectomy syndrome, not elsewhere classified; G90.513 Complex regional pain syndrome I of upper limb, bilateral; Z87.891 Personal history of nicotine dependence | CPT/HCPCS: 99212 ==